=== PATIENT | female | born 1945 | race Caucasian/White ===

== ENCOUNTER 2017-06-22 08:28 | Outpatient (RCR) | payer MEDICARE, BC, SELFPAY ==
[2017-06-22 10:41] LABS: Absolute Lymphocyte Count 1.74 X10^3/ul (0.83-4.51); Absolute Neutrophil Count 4.6 X10^3/uL (2.0-7.7); Basophil# 0.03 X10^3/uL; Basophil% 0.4 % (0-1); Eosinophil# 0.25 X10^3/uL; Eosinophils% 3.4 % (0-5); Hematocrit 39.7 % (37-47); Hemoglobin 13.2 g/dl (12.0-15.0); Lymphocyte # 1.74 X10^3/ul (4.0); Lymphocyte % 23.5 % (19-41); Mean Corp Hgb Conc 33.2 g/gl (32-36); Mean Corpuscular Hgb 30.7 pg (27.0-32.0); Mean Corpuscular Volume 92.3 fL (81-99); Mean Platelet Vol. 12.1 fl (6.2-12.0); Monocyte% 10.8 % (0-10); Neutrophil # 4.58 X10^3/uL (2.7-7.7); Neutrophil % 61.6 % (47-70); Platelet Count 210 K/mm3 (150-450); RBC Distribution Width CV 12.8 % (11.6-14.6); RBC Distribution Width SD 42.9 fl (35.1-43.9); White Blood Count 7.4 K/mm3 (4.4-11.0)
[2017-06-22 10:54] LABS: POSITIVE COUNT NO; POSITIVE DIFFERENTIAL NO; POSITIVE MORPHOLOGY NO
[2017-06-22 11:06] LABS: Microalbumin,Random Urine 40.2 mg/L (NO RANGE EST.)
[2017-06-22 11:09] LABS: AST(SGOT) 31 U/L (15-37); Alanine Aminotransfer ALT/SGPT 32 U/L (13-56); Albumin, Serum 3.5 g/dL (3.2-5.0); Alkaline Phosphatase 121 U/L (45-117); Anion Gap 9 (5-15); BUN 14 mg/dL (7-18); BUN/Creat Ratio 19.7 RATIO (10-20); Calcium,Total 8.8 mg/dL (8.5-10.1); Chloride 109 mmol/L (98-107); Creatinine, Serum 0.71 mg/dL (0.55-1.02); EST Glomerular Filtration Rate 86 mL/min (>60); Est Glom Filt Rate - Afr Amer 104 mL/min (>60); Globulin 3.4 g/dL (2.2-4.2); Glucose 138 mg/dL (74-106); Potassium 3.7 mmol/L (3.5-5.1); Protein, Total 6.9 g/dL (6.4-8.2); Sodium Level 142 mmol/L (136-145)
== END 2017-06-22 09:00 | disposition home or self-care (01) ==
LOC: MTLAB 08:28
PROVIDERS: Family Provider Internal Medicine; PCP Internal Medicine; Visit Provider Nurse Practitioner
DX: M06.041 Rheumatoid arthritis without rheumatoid factor, right hand (principal); Z79.899 Other long term (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 therapy; L40.9 Psoriasis, unspecified; M72.0 Palmar fascial fibromatosis [Dupuytren]; K76.0 Fatty (change of) liver, not elsewhere classified; M47.892 Other spondylosis, cervical region; M47.897 Other spondylosis, lumbosacral region; G62.9 Polyneuropathy, unspecified; E10.9 Type 1 diabetes mellitus without 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s; I25.10 Atherosclerotic heart disease of native coronary artery without angina pectoris; E78.5 Hyperlipidemia, unspecified; I63.8 Other cerebral infarction
CPT/HCPCS: 80053; 82043; 82570; 83036; 85025

== ENCOUNTER → 2017-08-07 15:27 | Outpatient (CLI) | payer MEDICARE, BC, SELFPAY ==
--- NOTE | 2017-08-07 15:31 | MRI_ITS ---
STUDY: MRI LUMBAR SPINE WITHOUT CONTRAST REASON FOR EXAM: Female, 72 years old. Low back pain and left-sided leg pain. TECHNIQUE: Standardized fat and water weighted pulse sequences were obtained in the sagittal and axial planes. COMPARISON: None FINDINGS: T12-L1: There is narrowing of the disc. There is a small focal right central disc protrusion. There is annular disc bulge and osteophyte complex. There is mild degenerative arthropathy of facet joints. Neural foramina are narrowed without evidence for nerve impingement. There is no significant central acquired canal stenosis. There is straightening of the normal lumbar lordosis. There is no substantial scoliosis. Normal conus medullaris that terminates at the L1 level. L1-2: There is mild annular disk bulge and osteophyte complex. There is mild degenerative arthropathy of the facet joints. Bilateral neuroforamina are narrowed without MR evidence for nerve impingement. There is no significant central canal stenosis. L2-3: Normal endplates. Normal disc height, signal and morphology. Normal bilateral facet joints. Normal central canal and bilateral lateral recesses. Normal bilateral intervertebral neural foramina. L3-4: There is mild annular disk bulge and osteophyte complex. There is mild degenerative arthropathy of the facet joints. Bilateral neuroforamina are narrowed without MR evidence for nerve impingement. There is no significant central canal stenosis. L4-5: There is a broad left central disc protrusion. There is mild central acquired canal stenosis. There is moderate degenerative arthropathy of facet joints. Neural foramina are bilaterally narrowed, greater on the left with potential impingement of the left L4 nerve root. L5-S1: There is a broad left central foraminal disc protrusion. There is vacuum disc phenomenon at this level. Neural foramina are bilaterally narrowed with potential impingement of the L5 nerve roots at the neural foramina. There is moderate degenerative arthropathy of facet joints. There is no significant central acquired canal stenosis. Normal visualized sacral ala. Normal visualized paraspinous soft tissue structures. 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 Electronically Signed: Urmila Vines MD at 16:46 EDT , Service support ,
== END ==
PROVIDERS: Family Provider Internal Medicine; PCP Internal Medicine; Visit Provider Anesthesiology Pain Medicine
DX: M54.9 Dorsalgia, unspecified (principal); M79.606 Pain in leg, unspecified
CPT/HCPCS: 72148

== ENCOUNTER → 2017-10-06 07:55 | Outpatient (CLI) | payer MEDICARE, BC, SELFPAY ==
[2017-10-06 10:30] LABS: Absolute Lymphocyte Count 1.79 X10^3/ul (0.83-4.51); Absolute Neutrophil Count 3.5 X10^3/uL (2.0-7.7); Basophil# 0.03 X10^3/uL; Basophil% 0.5 % (0-1); Eosinophil# 0.18 X10^3/uL; Eosinophils% 2.8 % (0-5); Hematocrit 39.7 % (37-47); Hemoglobin 13.6 g/dl (12.0-15.0); Lymphocyte # 1.79 X10^3/ul (4.0); Mean Corp Hgb Conc 34.3 g/gl (32-36); Mean Corpuscular Hgb 31.6 pg (27.0-32.0); Mean Corpuscular Volume 92.3 fL (81-99); Mean Platelet Vol. 12.3 fl (6.2-12.0); Monocyte# 0.91 X10^3/uL; Monocyte% 14.2 % (0-10); Neutrophil # 3.47 X10^3/uL (2.7-7.7); Neutrophil % 54.3 % (47-70); Platelet Count 182 K/mm3 (150-450); RBC Distribution Width CV 13.4 % (11.6-14.6); RBC Distribution Width SD 44.2 fl (35.1-43.9); White Blood Count 6.4 K/mm3 (4.4-11.0)
[2017-10-06 10:34] LABS: POSITIVE COUNT NO; POSITIVE DIFFERENTIAL NO; POSITIVE MORPHOLOGY NO
[2017-10-06 10:50] LABS: ALB/GLOB Ratio 0.9 RATIO (0.9-2.4); AST(SGOT) 32 U/L (15-37); Alanine Aminotransfer ALT/SGPT 42 U/L (13-56); Albumin, Serum 3.4 g/dL (3.2-5.0); Alkaline Phosphatase 95 U/L (45-117); Anion Gap 6 (5-15); BUN 14 mg/dL (7-18); BUN/Creat Ratio 17.9 RATIO (10-20); Calcium,Total 8.7 mg/dL (8.5-10.1); Chloride 108 mmol/L (98-107); Creatinine, Serum 0.78 mg/dL (0.55-1.02); EST Glomerular Filtration Rate 77 mL/min (>60); Est Glom Filt Rate - Afr Amer 94 mL/min (>60); Globulin 3.7 g/dL (2.2-4.2); Glucose 147 mg/dL (74-106); Potassium 3.9 mmol/L (3.5-5.1); Protein, Total 7.1 g/dL (6.4-8.2); Sodium Level 143 mmol/L (136-145)
== END ==
PROVIDERS: Internal Medicine Rheumatology; Family Provider Internal Medicine; PCP Internal Medicine; Visit Provider Nurse Practitioner
DX: M06.041 Rheumatoid arthritis without rheumatoid factor, right hand (principal); L40.9 Psoriasis, unspecified; M72.0 Palmar fascial fibromatosis [Dupuytren]; K76.0 Fatty (change of) liver, not elsewhere classified; M47.892 Other spondylosis, cervical region; M47.897 Other spondylosis, lumbosacral region; G62.9 Polyneuropathy, unspecified; E10.9 Type 1 diabetes mellitus without 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s; I25.10 Atherosclerotic heart disease of native coronary artery without angina pectoris; E78.5 Hyperlipidemia, unspecified; I63.8 Other cerebral infarction; Z79.899 Other long term (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 therapy
CPT/HCPCS: 36415; 80053; 85025

== ENCOUNTER → 2017-12-23 10:43 | Outpatient (CLI) | payer MEDICARE, BC, SELFPAY ==
[2017-12-23 12:55] LABS: ALB/GLOB Ratio 0.9 RATIO (0.9-2.4); AST(SGOT) 30 U/L (15-37); Alanine Aminotransfer ALT/SGPT 40 U/L (13-56); Albumin, Serum 3.4 g/dL (3.2-5.0); Alkaline Phosphatase 104 U/L (45-117); Anion Gap 9 (5-15); BUN 12 mg/dL (7-18); BUN/Creat Ratio 16.2 RATIO (10-20); Calcium,Total 8.8 mg/dL (8.5-10.1); Chloride 109 mmol/L (98-107); Cholesterol 150 mg/dL (200); Creatinine, Serum 0.74 mg/dL (0.55-1.02); EST Glomerular Filtration Rate 82 mL/min (>60); Est Glom Filt Rate - Afr Amer 99 mL/min (>60); Globulin 3.6 g/dL (2.2-4.2); Glucose 93 mg/dL (74-106); High Density Lipoprotein 68 mg/dL; Potassium 4.2 mmol/L (3.5-5.1); Sodium Level 144 mmol/L (136-145); Triglycerides 96 mg/dL; Very Low Density Lipoprotein 19 mg/dL (5-40)
[2017-12-23 13:05] LABS: Hemoglobin A1c 7.9 % (4.2-6.3)
[2017-12-23 13:12] LABS: Microalbumin,Random Urine 21.8 mg/L (NO RANGE EST.)
[2017-12-26 09:03] LABS: Vitamin D 1,25-Dihydroxy 60.8 pg/mL (19.9-79.3)
== END ==
PROVIDERS: Family Provider Internal Medicine; PCP Internal Medicine; Visit Provider Nurse Practitioner
DX: E10.9 Type 1 diabetes mellitus without 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s (principal)
CPT/HCPCS: 36415; 80053; 80061; 82043; 82570; 82652; 83036

== ENCOUNTER → 2018-06-18 10:04 | Outpatient (CLI) | payer MEDICARE, BC, SELFPAY ==
[2018-05-24 13:14] VITALS: BMI 35.2
[2018-06-18 12:43] LABS: ALB/GLOB Ratio 0.9 RATIO (0.9-2.4); AST(SGOT) 29 U/L (15-37); Alanine Aminotransfer ALT/SGPT 62 U/L (13-56); Albumin, Serum 3.1 g/dL (3.2-5.0); Alkaline Phosphatase 131 U/L (45-117); Anion Gap 8 (5-15); BUN 15 mg/dL (7-18); BUN/Creat Ratio 19.4 RATIO (10-20); Calcium,Total 8.8 mg/dL (8.5-10.1); Chloride 107 mmol/L (98-107); Creatinine, Serum 0.77 mg/dL (0.55-1.02); EST Glomerular Filtration Rate 78 mL/min (>60); Est Glom Filt Rate - Afr Amer 95 mL/min (>60); Globulin 3.4 g/dL (2.2-4.2); Glucose 233 mg/dL (74-106); Potassium 3.8 mmol/L (3.5-5.1); Protein, Total 6.5 g/dL (6.4-8.2); Sodium Level 143 mmol/L (136-145)
[2018-06-18 12:58] LABS: Hemoglobin A1c 8.7 % (4.2-6.3)
== END ==
PROVIDERS: Family Provider Internal Medicine; PCP Internal Medicine; Referring Provider Nurse Practitioner; Visit Provider Nurse Practitioner
DX: E10.65 Type 1 diabetes mellitus with hyperglycemia (principal)
CPT/HCPCS: 36415; 80053; 82043; 82570; 83036

== ENCOUNTER → 2018-07-19 13:09 | Outpatient (CLI) | payer MEDICARE, BC, SELFPAY ==
[2018-06-21 14:42] VITALS: BMI 34.7
--- NOTE | 2018-07-19 13:14 | RAD_ITS ---
STUDY: X-RAY - PELVIS REASON FOR EXAM: Female, 72 years old. Fall 6 days ago. Pain in tailbone. TECHNIQUE: One view of the pelvis was obtained. COMPARISON: CT of the abdomen and pelvis, September 17, 2015. FINDINGS: There is a non-specific bowel gas pattern. Normal visualized soft tissue structures. There are multiple calcified phleboliths. Normal bilateral iliac wings, sacroiliac joints and visualized sacrum. Normal visualized bilateral superior and inferior pubic rami. Normal pubic symphysis. Normal ischial tuberosities. Normal visualized right femoral head. Normal right acetabulum. Normal right hip joint. Normal visualized left femoral head. Normal left acetabulum. Normal left hip joint. RAD/Pelvis 1 or 2 Views IMPRESSION: Normal x-ray examination of the pelvis. Electronically Signed: Jeferson Salas DO at 22:25 EDT Tel [phone], Service support ,
--- NOTE | 2018-07-19 13:14 | RAD_ITS ---
STUDY: X-RAY - SACRUM/COCCYX REASON FOR EXAM: Female, 72 years old. Sacral pain following a recent fall. TECHNIQUE: 3 view(s) of the sacrum and coccyx were obtained. COMPARISON: None. FINDINGS: Disc space narrowing involving the lower lumbar spine. Normal bilateral sacroiliac joints. Normal visualized sacral ala and fused sacral bodies. There is an anterior angulation of the coccygeal segments. Normal coccygeal segments. Vascular calcifications. There is a 1.5 cm x 1 cm rounded calcification in the midpelvis. This may represent a bladder calculus. Clinical correlation is recommended. RAD/Sacrum-Coccyx min 2 Views IMPRESSION: No acute abnormalities seen. Possible bladder calculus. Electronically Signed: Yves Childers, at 9:17 EDT , Service support ,
== END ==
PROVIDERS: Family Provider Internal Medicine; PCP Internal Medicine; Referring Provider Anesthesiology Pain Medicine; Visit Provider Anesthesiology Pain Medicine
DX: M53.3 Sacrococcygeal disorders, not elsewhere classified (principal); Z91.81 History of falling
CPT/HCPCS: 72170; 72220

== ENCOUNTER → 2018-09-08 13:34 | Outpatient (CLI) | payer MEDICARE, BC, SELFPAY ==
[2018-06-21 14:42] VITALS: BMI 34.7
--- NOTE | 2018-09-08 13:44 | RAD_ITS ---
STUDY: X-RAY - CERVICAL SPINE REASON FOR EXAM: Female, 73 years old. Neck pain after recent trauma 4 days ago. TECHNIQUE: AP and lateral view(s) of the cervical spine were obtained. COMPARISON: None FINDINGS: There are degenerative changes of the anterior atlantoaxial articulation. Normal odontoid process. Normal cervical lordosis. Only 6 cervical vertebral bodies are visualized in the lateral projection. The visualized cervical vertebral bodies of normal height and alignment. Normal disc space heights. The posterior elements have normal alignment. There are atherosclerotic vascular calcifications of the carotid arteries. RAD/Cerv Spine 2 or 3 Views IMPRESSION: No radiographic evidence of acute compression or displaced fracture. Electronically Signed: Urmila Vines MD at 9:28 EDT , Service support ,
== END ==
PROVIDERS: Family Provider Internal Medicine; PCP Internal Medicine; Referring Provider Anesthesiology Pain Medicine; Visit Provider Anesthesiology Pain Medicine
DX: M54.2 Cervicalgia (principal)
CPT/HCPCS: 72040

== ENCOUNTER 2019-06-21 22:23 | Inpatient (IN) | payer MEDICARE, BC, SELFPAY ==
[2018-10-14 10:00] VITALS: BMI 35.2
[2019-06-21 22:25] VITALS: BP 160/62; PULSE 67; RESP 18; TEMP 36.1; O2SAT 93; BMI 33.3
--- NOTE | 2019-06-21 22:45 | CT_ITS ---
STUDY: CT ABDOMEN AND PELVIS WITHOUT CONTRAST REASON FOR EXAM: Female, 73 years old. Right-sided abdominal pain after fall. RADIATION DOSAGE (If Supplied By Facility): CTDIvol = ( 17.66 ) mGy, DLP = ( 1142.37 ) mGycm TECHNIQUE: Transaxial images were obtained from the dome of the diaphragm to the symphysis pubis without oral contrast, and without intravenous contrast. Sagittal and coronal images were reconstructed. Individualized dose optimization techniques were used for this CT. COMPARISON: September 17, 2015. FINDINGS: The visualized lung bases are unremarkable. The visualized portions of the heart are within normal limits. Normal liver. Normal gallbladder and extrahepatic biliary system. Normal spleen. Normal pancreas. Normal bilateral adrenal glands. No hydronephrosis. 2 to 3 mm bilateral nonobstructive renal calculi. Normal visualized stomach. Normal small intestine. Normal colon. There is non-visualization of the appendix. There is atherosclerotic calcification of the abdominal aorta and common iliac arteries, without a demonstrated aneurysm. Normal inferior vena cava. Normal retroperitoneum. No intra-abdominal free air. Normal urinary bladder. The uterus is not enlarged. No adnexal masses seen. Incidental calcified lymph node posterior pelvis unchanged. Normal abdominal wall. Degenerative changes of the lower thoracic and lower lumbar spine. CT/Abdomen/Pelvis W IV Cont ONLY IMPRESSION: No acute findings in the abdomen or pelvis. Small bilateral nonobstructing renal calculi. No evidence of bowel obstruction. No fracture identified. Electronically Signed: Thomas Colorado MD at 0:38 EST , Service support ,
--- NOTE | 2019-06-21 22:45 | EKG12_ITS ---
Test Reason : GEN ILL Blood Pressure : / mmHG Vent. Rate : 067 BPM Atrial Rate : 067 BPM P-R Int : 182 ms QRS Dur : 078 ms QT Int : 368 ms P-R-T Axes : 051 -24 -32 degrees QTc Int : 388 ms Normal sinus rhythm Minimal voltage criteria for LVH, may be normal variant Cannot rule out Anterior infarct , age undetermined Abnormal ECG Confirmed by KHARI MARTINEZ ([id number]), editor farm journal CARRINGTON GUERRA ([id number]) on 06/22/2019 2:22:13 PM Referred By: Confirmed By:KHARI MARTINEZ
--- NOTE | 2019-06-21 22:50 | RAD_ITS ---
STUDY: X-RAY CHEST REASON FOR EXAM: Female, 73 years old. PT DX WITH FLU LAST WEEK, REPORTS GENERALIZED WEAKNESS, AND FALL LAST THURSDAY. TECHNIQUE: Single AP portable view of the chest. COMPARISON: June 27, 2015. FINDINGS: The lungs are clear and expanded. There is no demonstrated pleural abnormality. Normal size heart. Normal mediastinum and cinthia. Normal visualized pulmonary arteries. There is atherosclerotic tortuosity of the aortic arch and descending thoracic aorta. There are degenerative changes of the visualized thoracic spine. Normal visualized ribs, clavicles, and shoulders. There is no demonstrated abnormality of the visualized soft tissue structures of the upper abdomen. RAD/Chest 1 View (Portable) IMPRESSION: Degenerative changes, as described above. No demonstrated acute cardiopulmonary process. Electronically Signed: Matty Krause MD at 23:31 EST , Service support ,
--- NOTE | 2019-06-21 23:03 | ED.DCSUM_ITS ---
- ER Visit Summary Date of Service: 06/21/19 Chief Complaint: Flulike illness, generalized weakness History of Present Illness: The patient is a 73 F presenting with flulike-like illness. Patient states that she has had flulike symptoms for the past 3 weeks. She complains of intermittent vomiting and diarrhea. She has had subjective fever. She has had myalgias. She has had generalized weakness and fatigue. She complains of dizziness, denies syncope. She fell on . She did not hit her head or lose consciousness. She fell onto her right side. She states her insulin pump jabbed her in the right side. She continues to have pain in that area. She denies chest pain or shortness of breath. Denies other complaints. Physical Examination: Vitals are stable. Patient is afebrile. Alert no acute distress. HEENT exam is unremarkable. Neck is supple. Lungs are clear and equal bilaterally. Heart is regular rate and rhythm. Abdomen is soft nontender nondistended. Extremities are unremarkable. Skin is warm and dry. No focal neurologic deficit. Remainder of exam is unremarkable. Emergency Department Course and Treatment: EKG is sinus rate of 67 with inferior T wave inversion, T wave flattening. CBC, chemistries unremarkable other than potassium 3.2, glucose 277. Alk phos 140, lipase 46. Urinalysis shows 5-10 white blood cells, negative nitrates, urine culture was sent. Troponin is 0.211. Ketones negative. Influenza negative. Chest x-ray shows no acute process. Patient was given aspirin and Zofran in the ED. CT abdomen pelvis shows no acute findings in the abdomen or pelvis. Small bilateral nonobstructing renal calculi. No evidence of bowel obstruction. No fracture identified. On reevaluation, patient is resting comfortably. Discussed with the hospitalist for admission. Disposition: Admission Impression: Generalized weakness, elevated troponin This note was generated with [employer] dictation software. It may contain incorrect words, spelling, and punctuation that were not noted in review of the chart prior to signing ED Disposition - Plan for ED Patient: Referrals: Alcira Calderon MD [Primary Care Provider] -
[2019-06-21] MEDS: 0.9% Normal Saline 1,000 ML 1000 ML IV (23:11)
[2019-06-21 23:24] LABS: Absolute Lymphocyte Count 1.56 X10^3/uL (0.83-4.51); Absolute Neutrophil Count 5.8 X10^3/uL (2.0-7.7); Basophil# 0.05 X10^3/uL; Basophil% 0.6 % (0-1); Eosinophil# 0.25 X10^3/uL; Eosinophils% 2.9 % (0-5); Hematocrit 41.5 % (37-47); Lymphocyte # 1.56 X10^3/ul (4.0); Mean Corp Hgb Conc 33.7 g/dL (32-36); Mean Corpuscular Hgb 30.7 pg (27.0-32.0); Mean Platelet Vol. 11.8 fl (6.2-12.0); Monocyte# 0.97 X10^3/uL; Monocyte% 11.2 % (0-10); NRBC Flagged by Analyzer 0 % (0-5); Neutrophil # 5.82 X10^3/uL (2.7-7.7); Platelet Count 262 K/mm3 (150-450); RBC Distribution Width CV 12.8 % (11.6-14.6); RBC Distribution Width SD 42.5 fl (35.1-43.9); Red Blood Count 4.56 M/mm3 (4.2-5.4); White Blood Count 8.7 K/mm3 (4.4-11.0)
[2019-06-21 23:37] LABS: ALB/GLOB Ratio 0.6 RATIO (0.9-2.4); AST(SGOT) 35 U/L (15-37); Alanine Aminotransfer ALT/SGPT 29 U/L (13-56); Alkaline Phosphatase 140 U/L (45-117); Anion Gap 7 (5-15); BUN 15 mg/dL (7-18); BUN/Creat Ratio 16.9 RATIO (10-20); Calcium,Total 9.5 mg/dL (8.5-10.1); Chloride 105 mmol/L (98-107); Creatinine, Serum 0.89 mg/dL (0.55-1.02); EST Glomerular Filtration Rate 66 mL/min (>60); Est Glom Filt Rate - Afr Amer 80 mL/min (>60); Estimated Creatinine Clearance 47.26 ml/min; Globulin 5.1 g/dL (2.2-4.2); Glucose 277 mg/dL (74-106); Lipase 46 U/L (73-393); Potassium 3.2 mmol/L (3.5-5.1); Protein, Total 8.1 g/dL (6.4-8.2); Sodium Level 140 mmol/L (136-145)
[2019-06-22] VITALS (14 sets, daily range): BP systolic 109–164; BP diastolic 55–85; PULSE 56–71; RESP 16–20; TEMP 36.6–36.8; O2SAT 93–98; BMI 33.0
[2019-06-22] MEDS: Aspirin 325 MG Tablet PO ×2 (00:16→09:25)
[2019-06-22] MEDS: Ondansetron ODT 4 MG Tablet PO (00:16)
[2019-06-22 00:18] LABS: Bacteria 0 SEEN /hpf (None Seen); Mucous, Urine 0 SEEN /hpf (<or=2+)
[2019-06-22 00:19] LABS: Color, Urine Yellow (Yellow); Glucose, Dipstick 250 mg/dl (Normal); Ketone-Dipstick Negative (Negative); Leukocyte Esterase-Dipstick 100 /ul (Negative); Nitrite-Dipstick Negative (Negative); Occult Blood-Urine Negative /ul (Negative); Protein-Dipstick Negative (Negative); Urine Bilirubin Dipstick Negative (Negative); Urine Clarity Clear (Clear); Urine Urobilinogen Normal (Normal)
[2019-06-22 00:47] LABS: Red Blood Cells-Urine 0-5 SEEN /hpf (0-5); Squamous Epithelial Cells - UA 0-5 SEEN /hpf (5-10); Transitional Epithelial - Ur 0-5 SEEN /hpf (0-5); White Blood Cells 5-10 SEEN /hpf (0-5)
--- NOTE | 2019-06-22 01:07 | PCM.HP.STD ---
Problem List (1) Gastroenteritis Status: Acute (2) Abnormal EKG Status: Acute (3) Elevated troponin Status: Acute History of Present Illness Date of Admission: 06/22/19 Chief Complaint: NAUSEA and vomiting The patient is a 73 year old F with a significant history of CAD status post stent; rheumatoid arthritis; type 1 diabetes; chronic pain who presents emergency department with 3 weeks of nausea and vomiting. She reported that her nausea and vomiting is actually improving. She also have diarrhea. She took Imodium. Further, she reported that she fell about a week ago and landed on her insulin pump. She then developed pain at right upper abdomen and to her back. She reported that the pain is also improving. Further she reports dizziness that she described as a combination of lightheadedness; unsteadiness on her feet and a Vertigo. Patient does not give a consistent history. From her history the dizziness may be chronic. At the emergency department patient was found to have a T wave inversion in inferior leads which was changed from prior EKGs. Her potassium was low. And her troponin was elevated. She reported that because of her nausea and vomiting she is unable to manage her blood glucose. Of note patient has an insulin pump. Emergency department doctor discussed the case with cardiology and cardiology will follow if consulted. Past Medical History Past Medical History (Chronic Problems): Chronic Problems (Last Reviewed 06/22/19 @ 03:[address] Lizandro Richards MD) Essential (primary) hypertension (Chronic) Atherosclerosis of coronary artery of [place] heart without angina pectoris (Chronic) PTCA and JUANY of proximal RCA 06/26/2000 @ [facility] per Dr. Ada Garcia History of stroke (Chronic) Has had multiple TIA's , also major CVA circa October 2012 Hyperlipidemia (Chronic) Medical History: Medical History (Last Reviewed 06/22/19 @ 05:[address] Lizandro Richards MD) Essential (primary) hypertension (Chronic) I10 Atherosclerosis of coronary artery of [place] heart without angina pectoris (Chronic) I25.10 PTCA and JUANY of proximal RCA 06/26/2000 @ [facility] per Dr. Ada Garcia History of stroke (Chronic) Z86.73 Has had multiple TIA's , also major CVA circa October 2012 Hyperlipidemia (Chronic) E78.5 Arthritis M19.90 COPD (chronic obstructive pulmonary disease) J44.9 Chronic neck and back pain M54.2, M54.9 Chronic rheumatic arthritis M06.9 Diabetic neuropathy E11.40 Difficulty balancing R29.818 Fatty liver K76.0 Hay fever J30.1 Incontinence R32 Knee pain M25.569 Obstructive sleep apnea G47.33 Polymyalgia rheumatica M35.3 Shoulder pain M25.519 Stroke I63.9 Type 1 diabetes mellitus E10.9 Allergies amoxicillin [From Augmentin] Allergy (Severe, Verified 10/14/18 10:04) Unknown clavulanic acid [From Augmentin] Allergy (Severe, Verified 06/21/19 22:24) Unknown amitriptyline Allergy (Verified 06/21/19 22:24) Other doesnt remember cefadroxil [Cefadroxil] Allergy (Verified 06/21/19 22:24) Hives ephedrine Allergy (Verified 06/21/19 22:24) HEART RACES erythromycin estolate [From Ilosone] Allergy (Verified 06/21/19 22:24) Angioedema, HEART RACING iodine Allergy (Verified 06/21/19 22:24) Hives, ITCHING levofloxacin Allergy (Verified 06/21/19 22:24) Unknown LIGAMENT DAMAGE nortriptyline [Nortriptyline] Allergy (Verified 06/21/19 22:24) Unknown oxycodone [Oxycodone] Allergy (Verified 06/21/19 22:24) CONFUSION oxycodone HCl [From Percocet] Allergy (Verified 06/21/19 22:24) CONFUSION Sulfa (Sulfonamide Antibiotics) Allergy (Verified 06/21/19 22:24) Rash pregabalin [From Lyrica] Adverse Reaction (Severe, Verified 06/21/19 22:24) Vomiting acetaminophen [From Percocet] Adverse Reaction (Verified 06/21/19 22:24) Other CONFUSION aspirin [From Aggrenox] Adverse Reaction (Verified 06/21/19 22:24) Vomiting cephalexin Adverse Reaction (Verified 06/21/19 22:24) Nausea/Vom/Diarrhea doxycycline Adverse Reaction (Verified 06/21/19 22:24) Nausea/Vom/Diarrhea duloxetine HCl [From Cymbalta] Adverse Reaction (Verified 06/21/19 22:24) HEADACHE, STOMACH ACHE Home Medications: Ambulatory Orders Medication Instructions Recorded Aspirin 325 mg PO DAILY@0800 06/27/15 Atorvastatin Calcium [Lipitor] 40 mg PO QHS 06/27/15 Clopidogrel Bisulfate [Plavix] 75 mg PO DAILY 06/27/15 Hydroxychloroquine [Plaquenil] 200 mg PO BIDCM 06/27/15 Lansoprazole [Prevacid] 30 mg PO BID 06/27/15 albuterol sulfate 2.5 mg INHALATION Q6H PRN ml 03/30/17 diclofenac sodium 1 % topical gel 2 g TOPICAL BID PRN g 03/30/17 ergocalciferol (vitamin D2) 1,250 50,000 unit PO QWEEK 03/30/17 mcg (50,000 unit) capsule gabapentin 300 mg capsule 300 mg PO TID cap 03/30/17 insulin lispro 100 unit/mL See Rx Instructions CONTINUOUS 03/30/17 subcutaneous solution SUBCUTANEOUS INFUSION QDAY ml multivitamin 1 tab PO QAM 03/30/17 nitroglycerin 0.4 mg sublingual 0.4 mg SUBLINGUAL Q5M PRN 03/30/17 tablet polyethylene glycol 3350 17 17 g PO QDAY PRN 03/30/17 gram/dose oral powder pramipexole 0.25 mg tablet 0.5 mg PO QHS tab 07/24/17 insulin lispro 100 unit/mL 120 unit SC QDAY #1100 ml 10/26/17 subcutaneous solution miconazole nitrate 2 % topical 1 applic TOPICAL DAILY 03/30/18 powder tramadol 50 mg tablet 50 mg PO Q6H PRN 06/21/18 amlodipine 5 mg tablet 5 mg PO DAILY #90 tab 09/22/18 acetaminophen 325 mg tablet 650 mg PO Q6H tab 10/14/18 clonazepam 1 mg tablet 1 mg PO QHS PRN tab 10/14/18 lactobacillus combination no.9 4 4,000 mmu cells PO DAILY 10/14/18 billion cell capsule metoprolol succinate 25 mg capsule 25 mg PO DAILY 10/14/18 sprinkle, ext. release 24 hr simethicone 180 mg capsule 360 mg PO DAILY PRN cap 10/14/18 losartan 100 mg tablet 100 mg PO QDAY #90 tab 05/19/19 Surgical History: Surgical History (Last Reviewed 06/22/19 @ 03:[address] Lizandro Richards MD) History of coronary artery stent placement (Resolved) Z95.5 PTCA and JUANY of proximal RCA 06/26/2000 @ [facility] per Dr. Ada Garcia H/O breast biopsy Z98.890 H/O lumpectomy Z98.890 H/O shoulder surgery Z98.890 H/O: Z98.891 History of left heart catheterization Onset Date: 07/01/05 Z98.890 axillary cyst removal bilat hand surgery nasal growth removal Surgical History: cataract - With intraocular lens implants, tonsillectomy, - - Rotator cuff on the left, left retinal detachment, laser surgeries on her eye for diabetic retinopathy, 3 sections, excision of benign breast cysts. 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 Lizandro Richards MD) Father No problems noted. Mother Breast cancer Thyroid disorder Heart disease Brother Heart disease, Onset Age: 52 History Items: No pertinent history Maternal Family History: Family History (Last Reviewed 06/22/19 @ 05:[address] Lizandro Richards MD) Father No problems noted. Mother Breast cancer Thyroid disorder Heart disease Brother Heart disease, Onset Age: 52 History Items: No pertinent history Review of Systems Constitutional: Reports: Weakness, Fatigue. Denies: Chills, Fever, Weight Change HEENT: Denies: Head Aches, Sinus Congestion, Sinus Drainage Cardiovascular: Reports: Light Headedness. Denies: Chest Pain, Palpitations Respiratory: Denies: Cough, Shortness of breath at rest, Sputum production Gastrointestinal: Reports: Nausea, Vomiting. Denies: Abdominal Pain Genitourinary: Denies: Dysuria Musculoskeletal: Denies: Joint Pain, Joint Tenderness Skin: Denies: Rash, Wounds Neurological: Denies: Numbness, Tingling, Focal weakness Psychiatric: Denies: Anxiety, Depression, Homicidal Ideations, Suicidal Ideations Hematologic/ Lymphatic: Denies: Easy Bruising, Easy Bleeding VTE Information - Inpt Only VTE Present on Admission: No VTE Mechan Device Prophylaxis: None VTE Pharm Prophylaxis ordered?: Yes Patient Problems: Active and Suspected Problems (Last Reviewed 06/22/19 @ 03:[address] Lizandro Richards MD) Gastroenteritis (Acute) Abnormal EKG (Acute) Elevated troponin (Acute) - Physical Exam Vitals/I&O's: Vital Signs Temp Pulse Resp BP Pulse Ox 97.0 F L 69 20 H 122/75 H 93 06/21/19 22:25 06/22/19 00:53 06/22/19 00:53 06/22/19 00:53 06/22/19 00:53 Oxygen Delivery Method Room Air Weight: 85.3 kg Body Mass Index (BMI) 33.3 Finger Stick Blood Glucose 161 Intake and Output for Last 24 Hours 06/20/19 06/21/19 06/22/19 23:59 23:59 23:59 Intake Total 1000 / 1000 Balance 1000 / 1000 General: Alert, Oriented x3, Cooperative HEENT: Atraumatic, PERRLA, EOMI, Normocephalic Neck: Supple, No JVD, Negative Carotid Bruits Lungs: Clear to auscultation, Normal air movement Cardiovascular: Regular rate, Normal S1, Normal S2 Abdomen: Bowel Sounds Present, Soft, Hypoactive Bowel Sounds, Tender - Right upper flank area Extremities: No edema, Capillary Refill Less than 3 Seconds Skin: No rashes, No breakdown Musculoskeletal: Tenderness - Right upper back Neurological: Cranial nerves II-XII grossly intact Psych/Mental Status: Normal Affect, Appropriate Microbiology Past 72 Hours 06/21/19 23:00 Mucosa - Nasopharyngeal Influenza Types A,B Direct FA (DANIELLA) - Final Laboratory Results 06/21/19 23:09: WBC 8.7, RBC 4.56, Hgb 14.0, Hct 41.5, MCV 91.0, MCH 30.7, MCHC 33.7, RDW Std Deviation 42.5, RDW Coeff of Marisela 12.8, Plt Count 262, MPV 11.8, Immature Gran % (Auto) 0.300, Neut % (Auto) 67.0, Lymph % (Auto) 18.0 L, [place] % (Auto) 11.2 H, Eos % (Auto) 2.9, Baso % (Auto) 0.6, Absolute Neuts (auto) 5.8, Absolute Lymphs (auto) 1.56, Nucleated RBC % 0 06/21/19 23:09: Sodium 140, Potassium 3.2 L, Chloride 105, Carbon Dioxide 28.0, Anion Gap 7, BUN 15, Creatinine 0.89, Estim Creat Clear Calc 47.26, Est GFR (MDRD) Af Amer 80, Est GFR (MDRD) Non-Af 66, BUN/Creatinine Ratio 16.9, Glucose 277 H, Calcium 9.5, Total Bilirubin 0.70, AST 35, ALT 29, Alkaline Phosphatase 140 H, Troponin I 0.211 H, Total Protein 8.1, Albumin 3.0 L, Globulin 5.1 H, Albumin/Globulin Ratio 0.6 L, Lipase 46 L 06/21/19 23:09: Acetone Level NEGATIVE 06/22/19 00:07: Urine Color Yellow, Urine Clarity Clear, Urine pH 7.0, Ur Specific [place] 1.010, Urine Protein Negative, Urine Glucose (UA) 250 H, Urine Ketones Negative, Urine Occult Blood Negative, Urine Nitrite Negative, Urine Bilirubin Negative, Urine Urobilinogen Normal, Ur Leukocyte Esterase 100 H, Urine RBC 0-5 SEEN, Urine WBC 5-10 SEEN, Ur Squamous Epith Cells 0-5 SEEN, Ur Transition Epith Cell 0-5 SEEN, Urine Bacteria 0 SEEN, Urine Mucus 0 SEEN Assessment/Plan All Active Problems (Last Reviewed 06/22/19 @ 03:[address] Lizandro Richards MD) Gastroenteritis (Acute) Abnormal EKG (Acute) Elevated troponin (Acute) History of coronary artery stent placement (Resolved) The patient is a 73 year old F with a significant history of CAD status post stent; rheumatoid arthritis; type 1 diabetes; and chronic pain who presents at the emergency department with 3 weeks of nausea and vomiting; fall; dizziness and found to have elevated troponin and abnormal EKG. Elevated troponin and abnormal EKG. Continue home aspirin and Plavix. Trend troponin. Consult cardiology. Continue home metoprolol and losartan. Acute gastroenteritis We will check enteric pathogen panel. Check magnesium. Replace potassium. Ondansetron IV as needed Type 1 diabetes Accu-Chek QA CHS. Continue insulin pump. Elevated alkaline phosphatase Chronic. Rheumatoid arthritis Plaquenil continued. Acute on chronic pain Tramadol continued. Hypertension Blood pressure is not within goal Amlodipine continued Labetalol PRN Trend blood pressure and adjust blood pressure medications. DVT prophylaxis Subcutaneous heparin. Code Visit Inpatient E&M: 17675 Init Hosp L3
--- NOTE | 2019-06-22 02:27 | ED.RN ---
PER DR. SILVER PT ON RA 88%, DR. SILVER PLACED PT ON 2L NC. WILL CONTINUE TO MONITOR.
--- NOTE | 2019-06-22 03:11 | EKG12_ITS ---
Test Reason : AM EKG Blood Pressure : / mmHG Vent. Rate : 060 BPM Atrial Rate : 060 BPM P-R Int : 184 ms QRS Dur : 080 ms QT Int : 364 ms P-R-T Axes : 051 -22 -50 degrees QTc Int : 364 ms Normal sinus rhythm Normal ECG When compared with ECG of 21-JUN-2019 22:59, MANUAL COMPARISON REQUIRED, DATA IS UNCONFIRMED Confirmed by JOVI DYKES, KANDACE ([id number]), editor in chief newspaper ANDREZ PROCTOR ([id number]) on 06/27/2019 4:05:26 PM Referred By: MEGAN Confirmed By:KANDACE ESPANA MD
[2019-06-22 06:41] LABS: Absolute Lymphocyte Count 1.37 X10^3/uL (0.83-4.51); Absolute Neutrophil Count 4.3 X10^3/uL (2.0-7.7); Basophil# 0.03 X10^3/uL; Basophil% 0.4 % (0-1); Eosinophil# 0.42 X10^3/uL; Hematocrit 39.1 % (37-47); Hemoglobin 13.1 g/dL (12.0-15.0); Lymphocyte # 1.37 X10^3/ul (4.0); Lymphocyte % 19.5 % (19-41); Mean Corp Hgb Conc 33.5 g/dL (32-36); Mean Corpuscular Hgb 30.5 pg (27.0-32.0); Mean Corpuscular Volume 90.9 fL (81-99); Mean Platelet Vol. 11.5 fl (6.2-12.0); Monocyte# 0.87 X10^3/uL; Monocyte% 12.4 % (0-10); NRBC Flagged by Analyzer 0 % (0-5); Neutrophil # 4.31 X10^3/uL (2.7-7.7); Neutrophil % 61.4 % (47-70); Platelet Count 237 K/mm3 (150-450); RBC Distribution Width CV 12.8 % (11.6-14.6); RBC Distribution Width SD 41.9 fl (35.1-43.9)
[2019-06-22] MEDS: Acetaminophen 325 MG Tablet 650 MG PO ×2 (07:06→17:57)
[2019-06-22] MEDS: Gabapentin 300 MG Capsule PO ×3 (07:06→19:57)
[2019-06-22 07:15] LABS: Bedside Glucose 133 mg/dL (70-110)
[2019-06-22 07:19] LABS: BUN 9 mg/dL (7-18); Creatinine, Serum 0.68 mg/dL (0.55-1.02); Estimated Creatinine Clearance 42.07 ml/min; Glucose 148 mg/dL (74-106)
[2019-06-22 07:20] LABS: Anion Gap 6 (5-15); BUN/Creat Ratio 13.2 RATIO (10-20); Calcium,Total 8.9 mg/dL (8.5-10.1); Chloride 107 mmol/L (98-107); EST Glomerular Filtration Rate 90 mL/min (>60); Est Glom Filt Rate - Afr Amer 109 mL/min (>60); Magnesium 1.6 mg/dL (1.6-2.6); Potassium 3.1 mmol/L (3.5-5.1); Sodium Level 142 mmol/L (136-145)
--- NOTE | 2019-06-22 07:34 | CON.PCM_ITS ---
Problem List (1) Elevated troponin Status: Acute (2) Atherosclerosis of coronary artery of [place] heart without angina pectoris Status: Chronic Comment: PTCA and JUANY of proximal RCA 06/26/2000 @ [facility] per Dr. Ada Garcia (3) History of coronary artery stent placement Status: Resolved Comment: PTCA and JUANY of proximal RCA 06/26/2000 @ [facility] per Dr. Ada Garcia (4) Hyperlipidemia Status: Chronic Qualifiers: Hyperlipidemia type: pure hypercholesterolemia Qualified Code(s): E78.00 - Pure hypercholesterolemia, unspecified; E78.0 - Pure hypercholesterolemia (5) Essential (primary) hypertension Status: Chronic (6) Gastroenteritis Status: Acute Reason for Consult Date of Consultation: 06/22/19 History of Present Illness: The patient is a 73 year old white female with a past cardiovascular history of CAD status post remote PCI, hyperlipidemia, and hypertension who is referred for evaluation of elevated troponin I levels. The patient states that recently, over the last 2+ weeks, she has noted a fever of approximately 105, nausea, emesis, and diarrhea. She did not seek medical care. She states her son-in-law, a [employer] station cleaning porter, prescribed her an antiemetic. However over time she felt more tired and fatigued and weak. Thus she presented to the emergency department for further evaluation and care. In the emergency department she did not complain of any acute chest discomfort or difficulty breathing. There is no report of orthopnea or PND or worsening peripheral pitting edema. There has been no near syncope or syncope. She did note an accidental fall and with her accidental fall pressing her insulin pump against her right side. Thus she underwent radiologic studies by the emergency department staff for any obvious injuries. Based upon the information from the emergency [facility] staff there were no acute injuries reported. She underwent additional evaluation which included troponin I levels which were considered indeterminate. Her ECG demonstrated sinus rhythm with a nonspecific ST and T wave abnormality. She was subsequently placed in the PCU for further evaluation and care of a possible viral syndrome as well as her indeterminate troponin I levels. Cardiology was consulted to evaluate the patient. Since the patient has been in the ICU her troponin I levels have been reassessed. They have remained indeterminate. [] Past Medical History Allergies/Adverse Reactions: Allergies amoxicillin [From Augmentin] Allergy (Severe, Verified 10/14/18 10:04) Unknown clavulanic acid [From Augmentin] Allergy (Severe, Verified 06/21/19 22:24) Unknown amitriptyline Allergy (Verified 06/21/19 22:24) Other doesnt remember cefadroxil [Cefadroxil] Allergy (Verified 06/21/19 22:24) Hives ephedrine Allergy (Verified 06/21/19 22:24) HEART RACES erythromycin estolate [From Ilosone] Allergy (Verified 06/21/19 22:24) Angioedema, HEART RACING iodine Allergy (Verified 06/21/19 22:24) Hives, ITCHING levofloxacin Allergy (Verified 06/21/19 22:24) Unknown LIGAMENT DAMAGE nortriptyline [Nortriptyline] Allergy (Verified 06/21/19 22:24) Unknown oxycodone [Oxycodone] Allergy (Verified 06/21/19 22:24) CONFUSION oxycodone HCl [From Percocet] Allergy (Verified 06/21/19 22:24) CONFUSION Sulfa (Sulfonamide Antibiotics) Allergy (Verified 06/21/19 22:24) Rash pregabalin [From Lyrica] Adverse Reaction (Severe, Verified 06/21/19 22:24) Vomiting acetaminophen [From Percocet] Adverse Reaction (Verified 06/21/19 22:24) Other CONFUSION aspirin [From Aggrenox] Adverse Reaction (Verified 06/21/19 22:24) Vomiting cephalexin Adverse Reaction (Verified 06/21/19 22:24) Nausea/Vom/Diarrhea doxycycline Adverse Reaction (Verified 06/21/19 22:24) Nausea/Vom/Diarrhea duloxetine HCl [From Cymbalta] Adverse Reaction (Verified 06/21/19 22:24) HEADACHE, STOMACH ACHE Home Medications: Ambulatory Orders Medication Instructions Recorded Aspirin 325 mg PO DAILY@0800 06/27/15 Atorvastatin Calcium [Lipitor] 40 mg PO QHS 06/27/15 Clopidogrel Bisulfate [Plavix] 75 mg PO DAILY 06/27/15 Hydroxychloroquine [Plaquenil] 200 mg PO BIDCM 06/27/15 Lansoprazole [Prevacid] 30 mg PO BID 06/27/15 albuterol sulfate 2.5 mg INHALATION Q6H PRN ml 03/30/17 diclofenac sodium 1 % topical gel 2 g TOPICAL BID PRN g 03/30/17 ergocalciferol (vitamin D2) 1,250 50,000 unit PO QWEEK 03/30/17 mcg (50,000 unit) capsule gabapentin 300 mg capsule 300 mg PO TID cap 03/30/17 insulin lispro 100 unit/mL See Rx Instructions CONTINUOUS 03/30/17 subcutaneous solution SUBCUTANEOUS INFUSION QDAY ml multivitamin 1 tab PO QAM 03/30/17 nitroglycerin 0.4 mg sublingual 0.4 mg SUBLINGUAL Q5M PRN 03/30/17 tablet polyethylene glycol 3350 17 17 g PO QDAY PRN 03/30/17 gram/dose oral powder pramipexole 0.25 mg tablet 0.5 mg PO QHS tab 07/24/17 insulin lispro 100 unit/mL 120 unit SC QDAY #1100 ml 10/26/17 subcutaneous solution miconazole nitrate 2 % topical 1 applic TOPICAL DAILY 03/30/18 powder tramadol 50 mg tablet 50 mg PO Q6H PRN 06/21/18 amlodipine 5 mg tablet 5 mg PO DAILY #90 tab 09/22/18 acetaminophen 325 mg tablet 650 mg PO Q6H tab 10/14/18 clonazepam 1 mg tablet 1 mg PO QHS PRN tab 10/14/18 lactobacillus combination no.9 4 4,000 mmu cells PO DAILY 10/14/18 billion cell capsule metoprolol succinate 25 mg capsule 25 mg PO DAILY 10/14/18 sprinkle, ext. release 24 hr simethicone 180 mg capsule 360 mg PO DAILY PRN cap 10/14/18 losartan 100 mg tablet 100 mg PO QDAY #90 tab 05/19/19 Past Medical History (Chronic Problems): Chronic Problems (Last Reviewed 06/22/19 @ 05:[address] Lizandro Richards MD) Essential (primary) hypertension (Chronic) Atherosclerosis of coronary artery of [place] heart without angina pectoris (Chronic) PTCA and JUANY of proximal RCA 06/26/2000 @ [facility] per Dr. Ada Garcia History of stroke (Chronic) Has had multiple TIA's , also major CVA circa October 2012 Hyperlipidemia (Chronic) Surgical History: cataract - With intraocular lens implants, tonsillectomy, - - Rotator cuff on the left, left retinal detachment, laser surgeries on her eye for diabetic retinopathy, 3 sections, excision of benign breast cysts. 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 Lizandro Richards MD) Father No problems noted. Mother Breast cancer Thyroid disorder Heart disease Brother Heart disease, Onset Age: 52 History Items: No pertinent history Maternal Family History: Family History (Last Reviewed 06/22/19 @ 05:[address] Lizandro Richards MD) Father No problems noted. Mother Breast cancer Thyroid disorder Heart disease Brother Heart disease, Onset Age: 52 History Items: No pertinent history Lives: Spouse/ Significant Other Smoking Status: Never smoker Review of Systems - Review of Systems General: Reports: Fever, Fatigue, Weakness. Denies: Night Sweats Cardiovascular: Denies: Chest Discomfort, Shortness of Breath, Orthopnea, PND, Peripheral Edema, Palpitations, Lightheadedness, Dizziness, Near Syncope, Syncope Respiratory: Denies: Cough, Sputum Production, Hemoptysis Gastrointestinal: Reports: Nausea, Emesis, Diarrhea. Denies: Hematemesis, Hematochezia, Melena Genitourinary: Denies: Dysuria, Hematuria Skin: Denies: Rash Subjectve: This is a 73-year-old white male who appears to be resting comfortably at this time in no acute distress. Objective: Vital Signs Temp Pulse Resp BP Pulse Ox 97.9 F 71 18 145/74 H 98 06/22/19 03:26 06/22/19 03:31 06/22/19 03:26 06/22/19 03:26 06/22/19 03:26 Oxygen Flow Rate (L/min) 2 Oxygen Delivery Method Nasal Cannula Weight: 189 lb 6.033 oz Body Mass Index (BMI) 33.0 Finger Stick Blood Glucose 161 Intake and Output for Last 24 Hours 06/20/19 06/21/19 06/22/19 23:59 23:59 23:59 Intake Total 1100 / 1100 Output Total 300 / 300 Balance 800 / 800 General: Awake, Alert, Oriented x 3, Cooperative, No Acute Distress HEENT: Atraumatic, Normocephalic, PERRL, EOMI, Sclera Non Icteric Oral: Moist Mucosa Neck: Supple, Good ROM, No JVD Lungs: Clear to auscultation Cardiovascular: Regular Rhythm, Normal S1, Normal S2 Abdomen: Bowel Sounds Present, Soft, Non Tender Extremities: Trace RLE Edema, Trace LLE Edema Psych/Mental Status: Appropriate 06/21/19 23:09: WBC 8.7, RBC 4.56, Hgb 14.0, Hct 41.5, MCV 91.0, MCH 30.7, MCHC 33.7, Plt Count 262, MPV 11.8, Immature Gran % (Auto) 0.300, Neut % (Auto) 67.0, Lymph % (Auto) 18.0 L, Saunders % (Auto) 11.2 H, Eos % (Auto) 2.9, Baso % (Auto) 0.6, Absolute Neuts (auto) 5.8, Nucleated RBC % 0 06/21/19 23:09: Sodium 140, Potassium 3.2 L, Chloride 105, Carbon Dioxide 28.0, Anion Gap 7, BUN 15, Creatinine 0.89, Est GFR (MDRD) Af Amer 80, Est GFR (MDRD) Non-Af 66, BUN/Creatinine Ratio 16.9, Glucose 277 H, Calcium 9.5, Total Bilirubin 0.70, Troponin I 0.211 H 06/22/19 00:07: Urine Color Yellow, Urine Clarity Clear, Urine pH 7.0, Ur Specific [place] 1.010, Urine Protein Negative, Urine Glucose (UA) 250 H, Urine Ketones Negative, Urine Occult Blood Negative, Urine Nitrite Negative, Urine Bilirubin Negative, Urine Urobilinogen Normal, Ur Leukocyte Esterase 100 H, Urine RBC 0-5 SEEN, Urine WBC 5-10 SEEN 06/22/19 03:46: Troponin I 0.225 H 06/22/19 06:25: WBC 7.0, RBC 4.30, Hgb 13.1, Hct 39.1, MCV 90.9, MCH 30.5, MCHC 33.5, Plt Count 237, MPV 11.5, Immature Gran % (Auto) 0.300, Neut % (Auto) 61.4, Lymph % (Auto) 19.5, Saunders % (Auto) 12.4 H, Eos % (Auto) 6.0 H, Baso % (Auto) 0.4, Absolute Neuts (auto) 4.3, Nucleated RBC % 0 06/22/19 06:25: Sodium 142, Potassium 3.1 L, Chloride 107, Carbon Dioxide 29.0, Anion Gap 6, BUN 9, Creatinine 0.68, Est GFR (MDRD) Af Amer 109, Est GFR (MDRD) Non-Af 90, BUN/Creatinine Ratio 13.2, Glucose 148 H, Calcium 8.9, Magnesium 1.6, Troponin I 0.203 H Rhythm: Sinus rhythm EKG: As noted above ECHO: 12/16/2014 Interpretation Summary Normal LV size. Left ventricular systolic function is normal. The estimated ejection fraction is 60 %. Contrast injection was performed. Transesophageal echocardiogram: 12-17-2014 Interpretation Summary Normal LV size. Left ventricular systolic function is normal. The estimated ejection fraction is 60 %. Bubble contrast study negative for right to left interatrial shunt. No thrombus is detected in the left atrial appendage. Moderate atherosclerosis of the aortic arch. Cardiac Cath: Report unavailable for review at this time PCI: Report unavailable for review at this time: However, based upon previous outpatient cardiovascular notes, there is a comment patient received PCI to the RCA in 2000 at [facility] CXR: Portable chest x-ray: Preliminary evaluation: No acute cardiopulmonary disease process appreciated: Please see official report Assessment/Plan 1. Abnormal enzymes/troponin I level The patient has indeterminate troponin I levels. It is unclear whether or not this is related to a recent cardiovascular event either a primary ED event versus a type II CAD event. At the moment she denies any acute cardiovascular symptoms. Her symptoms she described appear compatible with an underlying viral syndrome. She is going to be monitored. Her cardiac enzymes and ECG can be followed. An echocardiogram can be requested to reassess her left ventricular wall motion for any obvious new wall motion and abnormalities that would be concerning for an underlying cardiovascular event. Depending upon her course she may or may not need additional noninvasive or invasive studies. In the interim she will continue cardiovascular medical therapy as deemed appropriate. 2. CAD status post PCI-remote The patient does have a history of CAD status post remote PCI as noted above. At the moment she has indeterminate troponin I levels of uncertain etiology. She will continue to be followed as noted above. She will continue medical therapy as deemed appropriate while she undergoes further evaluation care for her presumed viral syndrome. 3. Hyperlipidemia She will continue medical therapy. 4. Hypertension Her blood pressure will be followed and her medications can be adjusted as needed. 5. Gastroenteritis The patient has had a history of fever, nausea, emesis, diarrhea. There is concerned that she may have experienced a viral gastroenteritis. She is undergoing evaluation care per internal medicine. Comment: The patient's case was discussed and reviewed with the patient and Dr. Ponce is a [facility] emergency department staff. This note was generated using a voice recognition system and there may be incorrect words, spelling or punctuation that were not noted when reviewing the office note prior to saving.
--- NOTE | 2019-06-22 07:45 | ECHOCS_ITS ---
Reason For Study: CAD/ASHD Procedure This was a 2D Doppler, Color Flow transthoracic echocardiogram. The study was technically difficult. Contrast injection was performed. Exam performed portable in patient room. Left Ventricle Normal LV size. Left ventricular systolic function is normal. The estimated ejection fraction is 60 %. Diastolic function is indeterminate. No regional wall motion abnormalities noted. Right Ventricle Normal RV size. Normal systolic function. Atria Normal left atrium. Normal right atrium. No doppler evidence for ASD. Mitral Valve There is moderate mitral annular calcification. Extension of the mitral annular calcification onto the mitral valve leaflets. Mild (1+) mitral valve insufficiency. Tricuspid Valve Normal tricuspid valve. Trivial tricuspid valve insufficiency. Right ventricular systolic pressure estimated to be 33 mmHg. Aortic Valve Trisinus/trileaflet aortic valve. Mild focal aortic valve calcification. Pulmonic Valve The pulmonic valve is not well visualized. Great Vessels Normal sized aortic root. Pericardium/Pleural No pericardial effusion. Medication Diluted definity 3ml given slow IV push to enhance endocardial definition. MMode/2D Measurements & Calculations LVIDd: 4.4 cm IVSd: 1.2 cm Ao root diam: 2.2 cm LVIDs: 2.4 cm LVPWd: 1.1 cm RVDd: 3.6 cm FS: 44.3 % LAV(MOD-bp): 28.7 ml LA A4 area: 12.0 cm2 LA dimension(2D): 3.7 cm LAV(MOD-bp) Indexed: 15.2 ml/m2 LAV(MOD-sp2): 31.0 ml LAV(MOD-sp4): 25.7 ml RA A4 area: 14.2 cm2 Doppler Measurements & Calculations MV E max patricio: 89.1 cm/sec Lat Peak E' Patricio: 6.3 cm/sec Med Peak E' Patricio: 4.3 cm/sec MV A max patricio: 104.9 cm/sec E/E' lat: 14.2 E/E' med: 20.6 MV E/A: 0.85 Ao V2 max: 175.0 cm/sec LV V1 max: 106.1 cm/sec PA V2 max: 108.7 cm/sec Ao max P.2 mmHg LV V1 max P.5 mmHg Ao V2 mean: 129.2 cm/sec Ao mean P.3 mmHg Ao V2 VTI: 39.5 cm TR max patricio: 274.0 cm/sec TR max P.0 mmHg Interpretation Summary The study was technically difficult. Contrast injection was performed. Left ventricular systolic function is normal. The estimated ejection fraction is 60 %. There is moderate mitral annular calcification. Extension of the mitral annular calcification onto the mitral valve leaflets. Mild (1+) mitral valve insufficiency. Trivial tricuspid valve insufficiency. Mild focal aortic valve calcification. Right ventricular systolic pressure estimated to be 33 mmHg. Diastolic function is indeterminate. Ordering Physician: Zachary Gayle Referring Physician: Alcira Calderon Performed By: Brittney Jorgensen, MERLINE, RVT
[2019-06-22] MEDS: Multivitamins,Therapeutic Tablet 1 TABLET PO (09:25)
[2019-06-22] MEDS: Hydroxychloroquine 200 MG Tablet PO ×2 (09:25→17:58)
[2019-06-22] MEDS: Losartan Potassium 100 MG Tablet PO (09:25)
[2019-06-22] MEDS: Pantoprazole Sodium 40 MG Tablet PO ×2 (09:26→19:57)
[2019-06-22] MEDS: Metoprolol(XL)Succ 25 MG Tablet PO (09:26)
[2019-06-22] MEDS: Clopidogrel Bisulfate 75 MG Tablet PO (09:26)
[2019-06-22] MEDS: amLODIPine 5 MG Tablet PO (09:26)
--- NOTE | 2019-06-22 12:05 | PCM.PN.BLA ---
Progress Note Patient was seen and examined. Admitted in the early hours of this morning with nausea and vomiting and managed as a gastroenteritis. He was also found to have abnormal EKG with elevated troponins. Cardiology was consulted. Patient has type 1 diabetes and is on insulin pump. Blood sugars are negative. Patient has had no diarrhea since being admitted. Isolation precautions discontinued Vitals and blood work looks stable except for mild elevation in troponin. 2D echo is pending We will continue to monitor patient, PT and OT to evaluate and treat STROKE Vital Signs/Narrative: Vital Signs Temp Pulse Resp BP Pulse Ox 06/22/19 11:25 56 L 06/22/19 09:30 98.1 F 70 16 126/69 H 94 06/22/19 09:26 67 06/22/19 08:24 95
--- NOTE | 2019-06-22 12:19 | NURSING ---
Pt BGT per self meter is 131, no coverage given as pt BGT <150
--- NOTE | 2019-06-22 13:40 | CASEMGMT ---
RN CM Assessment Note Presentation: Gastroenteritis Intro role of CM and purpose of RN CM assessment to patient. Pt is awake, alert and able to participate. Pt had CVA in past and states she still has difficulty with memory and word finding. Demographics, PCP and Pharmacy verified. Pt states she is generally independent at home, but is able to assist if needed. Pt states she had requested script for Outpt PT at [facility] from her doctor but this was not completed. RN CM let pt know PT/OT would evaluate here and if recommended, could be set up for her. PCP: Dr. Calderon Specialists: Dr. Seaman, cardiology; Dr. Trejo, neurology, Endocrinologis (does not remember name). Preferred Pharmacy: [facility] Insurance: [facility] Prescription Benefit: yes LNOK : Vitor Russo Living Arrangements: Lives with her in multi level home. States has chair lift to bedroom area. Independent in Bathing, dressing. and pt share cooking and cleaning. Transportation: drives DME: rollator, wheelchair, tub bench (does not use) HHC/SNF: [facility] Inpt rehab in past. States may have had HHS in past, does not remember. Patient DC goals: Home DC PLAN: Home. PT/OT evaluations pending. RN CM advised to contact cm for any concerns/needs that may arise. Torey SARAVIA RN ACM
--- NOTE | 2019-06-22 15:10 | CASEMGMT ---
LUMA HARO NOTE; To room to talk w/pt. Pt states she does not have any concerns w/going home @ discharge. She declines need for HHC or OP therapy. She states if she feels in the future that she needs/wants HHC or OP therapy, that she knows she can discuss this with her PCP. Susie SARAVIA RN, CM
[2019-06-22] MEDS: Atorvastatin Calcium 40 MG Tablet PO (19:57)
[2019-06-22] MEDS: Pramipexole Di-HCl 0.5 MG Tablet PO (19:57)
--- NOTE | 2019-06-22 19:58 | NURSING ---
PATIENT HAS MACHINE ON ARM THAT READS BLOOD SUGAR, WILL NOT LET RN FINGER STICK. PATIENT CHECKED AND BLOOD SUGAR IS 79 AT THIS TIME. STATES THAT IS ABOUT WHERE IT RUNS. PATIENT WAS GIVEN A SNACK AT THIS TIME. WILL CONTINUE TO MONITOR
--- NOTE | 2019-06-22 22:31 | NURSING ---
PATIENT CHECKED BLOOD SUGAR AND WAS 93 AT THIS TIME.
[2019-06-23] VITALS (7 sets, daily range): BP systolic 120–150; BP diastolic 46–64; PULSE 58–67; RESP 16–18; TEMP 36.4–36.6; O2SAT 93–98
--- NOTE | 2019-06-23 02:33 | NURSING ---
PATIENT'S SELF MONITOR READ BLOOD SUGAR AT 74, GAVE PT EULALIA AND CRYSTAL. RECHECKED SUGAR WITH HOSPITAL MACHINE AND BLOOD SUGAR WAS 96 (PT MENTOR READ 70). PATIENT STATES SHE DOES NOT FEEL LIKE HER SUGAR IS LOW AT THIS TIME. WILL CONTINUE TO MONITOR.
[2019-06-23 02:46] LABS: Bedside Glucose 96 mg/dL (70-110)
[2019-06-23] MEDS: Gabapentin 300 MG Capsule PO (04:57)
[2019-06-23 08:35] LABS: Anion Gap 4 (5-15); BUN 8 mg/dL (7-18); BUN/Creat Ratio 9.5 RATIO (10-20); Chloride 112 mmol/L (98-107); Creatinine, Serum 0.84 mg/dL (0.55-1.02); EST Glomerular Filtration Rate 70 mL/min (>60); Est Glom Filt Rate - Afr Amer 85 mL/min (>60); Estimated Creatinine Clearance 50.08 ml/min; Glucose 104 mg/dL (74-106); Potassium 3.6 mmol/L (3.5-5.1); Sodium Level 143 mmol/L (136-145)
--- NOTE | 2019-06-23 08:51 | PN.CARD_ITS ---
Subjectve: Patient seen and evaluated. Appears to be much better this morning. Objective: Vital Signs Temp Pulse Resp BP Pulse Ox 97.8 F 61 16 120/62 94 06/23/19 02:15 06/23/19 07:09 06/23/19 02:15 06/23/19 02:15 06/23/19 07:25 Oxygen Flow Rate (L/min) 2 Oxygen Delivery Method Room Air Weight: 189 lb 6.033 oz Body Mass Index (BMI) 33.0 Finger Stick Blood Glucose 161 Intake and Output for Last 24 Hours 06/21/19 06/22/19 06/23/19 23:59 23:59 23:59 Intake Total 1100 / 1250 550 / 550 Output Total 300 / 700 600 / 600 Balance 800 / 550 -50 / -50 General: Awake, Alert, Oriented x 3 HEENT: PERRL, EOMI, Sclera Non Icteric Neck: Supple, Good ROM, No Lymph Node Enlargement Lungs: Clear to auscultation Cardiovascular: Regular Rhythm, Normal S1, Normal S2, No Murmurs, No Rubs, No Gallops Vascular: No Carotid Bruits, Normal Femoral Pulses, Normal Radial Pulses, Normal Dorsalis Pedal Pulse, Normal Posterior Tibial Pulses Abdomen: Bowel Sounds Present, Soft, Non Tender, No HSM, No Organomegaly Extremities: No Cyanosis, No Clubbing, No edema Musculoskeletal: No Erythema Skin: No Rashes Neurological: No Focal Motor or Sensory Deficit 06/22/19 09:14: Troponin I 0.181 H 06/23/19 08:16: Sodium 143, Potassium 3.6, Chloride 112 H, Carbon Dioxide 27.0, Anion Gap 4 L, BUN 8, Creatinine 0.84, Est GFR (MDRD) Af Amer 85, Est GFR (MDRD) Non-Af 70, BUN/Creatinine Ratio 9.5 L, Glucose 104, Calcium 9.0 Rhythm: EKG: ECHO: Stress Test: Cardiac Cath: PCI: CT Surgery: Holter monitor: EPS: PPM: CXR: Chest CT Scan: Medical Necessity - Tobacco Use Smoking Status: Never smoker Assessment/Plan 1. Abnormal enzymes/troponin I level The patient has indeterminate troponin I levels. At the moment she denies any acute cardiovascular symptoms. Her symptoms she described appear compatible with an underlying viral syndrome. It appears to be secondary to a type II event. My recommendation at this time would be with the fact that her ejection fraction is normal, to discharge her and follow her up as an outpatient. 2. CAD status post PCI-remote The patient does have a history of CAD status post remote PCI as noted above.At the moment she has indeterminate troponin I levels of uncertain etiology. She will continue to be followed as noted above. She will continue medical therapy as deemed appropriate while she undergoes further evaluation care for her presumed viral syndrome. 3. Hyperlipidemia She will continue medical therapy. 4. Hypertension Her blood pressure will be followed and her medications can be adjusted as n eeded. 5. Gastroenteritis The patient has had a history of fever, nausea, emesis, diarrhea. There is concerned that she may have experienced a viral gastroenteritis. She is undergoing evaluation care per internal medicine. Thank you for allowing me to participate in the care of your patient. Please don't hesitate to call if any issues arise
[2019-06-23] MEDS: Multivitamins,Therapeutic Tablet 1 TABLET PO (08:59)
[2019-06-23] MEDS: Hydroxychloroquine 200 MG Tablet PO (08:59)
[2019-06-23] MEDS: Aspirin 325 MG Tablet PO (08:59)
[2019-06-23] MEDS: Acetaminophen 325 MG Tablet 650 MG PO (08:59)
[2019-06-23] MEDS: amLODIPine 5 MG Tablet PO (09:52)
[2019-06-23] MEDS: Clopidogrel Bisulfate 75 MG Tablet PO (09:52)
[2019-06-23] MEDS: Losartan Potassium 100 MG Tablet PO (09:52)
[2019-06-23] MEDS: Pantoprazole Sodium 40 MG Tablet PO (09:52)
[2019-06-23] MEDS: Metoprolol(XL)Succ 25 MG Tablet PO (09:52)
--- NOTE | 2019-06-23 10:40 | CASEMGMT ---
Therapy states that pt does not need any skilled therapy at discharge. Cara GE CM
--- NOTE | 2019-06-23 11:48 | DCINST_ITS ---
- Discharge Diagnoses Current Active Problems: Current Active and Chronic Problems (Last Reviewed 06/22/19 @ 05:[address] Lizandro Richards MD) Gastroenteritis (Acute) Abnormal EKG (Acute) Elevated troponin (Acute) You will use the following diet at home:: Calorie/Carbohydrate Controlled (specify 1200, 1400, etc) - 1800 david / day, Cardiac Your food should be the consistency of: Regular Your liquids should be the consistency of: Regular/Thin Discharge Activity: Return to Normal Activity Allergies/Adverse Reactions: Allergies amoxicillin [From Augmentin] Allergy (Severe, Verified 10/14/18 10:04) Unknown clavulanic acid [From Augmentin] Allergy (Severe, Verified 06/21/19 22:24) Unknown amitriptyline Allergy (Verified 06/21/19 22:24) Other doesnt remember cefadroxil [Cefadroxil] Allergy (Verified 06/21/19 22:24) Hives ephedrine Allergy (Verified 06/21/19 22:24) HEART RACES erythromycin estolate [From Ilosone] Allergy (Verified 06/21/19 22:24) Angioedema, HEART RACING iodine Allergy (Verified 06/21/19 22:24) Hives, ITCHING levofloxacin Allergy (Verified 06/21/19 22:24) Unknown LIGAMENT DAMAGE nortriptyline [Nortriptyline] Allergy (Verified 06/21/19 22:24) Unknown oxycodone [Oxycodone] Allergy (Verified 06/21/19 22:24) CONFUSION oxycodone HCl [From Percocet] Allergy (Verified 06/21/19 22:24) CONFUSION Sulfa (Sulfonamide Antibiotics) Allergy (Verified 06/21/19 22:24) Rash pregabalin [From Lyrica] Adverse Reaction (Severe, Verified 06/21/19 22:24) Vomiting acetaminophen [From Percocet] Adverse Reaction (Verified 06/21/19 22:24) Other CONFUSION aspirin [From Aggrenox] Adverse Reaction (Verified 06/21/19 22:24) Vomiting cephalexin Adverse Reaction (Verified 06/21/19 22:24) Nausea/Vom/Diarrhea doxycycline Adverse Reaction (Verified 06/21/19 22:24) Nausea/Vom/Diarrhea duloxetine HCl [From Cymbalta] Adverse Reaction (Verified 06/21/19 22:24) HEADACHE, STOMACH ACHE Medications to take at Discharge Aspirin 325 mg PO DAILY@0800 06/27/15 Atorvastatin Calcium [Lipitor] 40 mg PO QHS 06/27/15 Clopidogrel Bisulfate [Plavix] 75 mg PO DAILY 06/27/15 Hydroxychloroquine [Plaquenil] 200 mg PO BIDCM 06/27/15 Lansoprazole [Prevacid] 30 mg PO BID 06/27/15 albuterol sulfate 2.5 mg INHALATION Q6H PRN ml 03/30/17 diclofenac sodium 1 % topical gel 2 g TOPICAL BID PRN g 03/30/17 ergocalciferol (vitamin D2) 1,250 mcg (50,000 unit) capsule 50,000 unit PO QWEEK 03/30/17 gabapentin 300 mg capsule 300 mg PO TID cap 03/30/17 insulin lispro 100 unit/mL subcutaneous solution See Rx Instructions CONTINUOUS SUBCUTANEOUS INFUSION QDAY ml 03/30/17 multivitamin 1 tab PO QAM 03/30/17 nitroglycerin 0.4 mg sublingual tablet 0.4 mg SUBLINGUAL Q5M PRN 03/30/17 polyethylene glycol 3350 17 gram/dose oral powder 17 g PO QDAY PRN 03/30/17 pramipexole 0.25 mg tablet 0.5 mg PO QHS tab 07/24/17 insulin lispro 100 unit/mL subcutaneous solution 120 unit SC QDAY #1100 ml 10/26/17 miconazole nitrate 2 % topical powder 1 applic TOPICAL DAILY 03/30/18 tramadol 50 mg tablet 50 mg PO Q6H PRN 06/21/18 amlodipine 5 mg tablet 5 mg PO DAILY #90 tab 09/22/18 acetaminophen 325 mg tablet 650 mg PO Q6H tab 10/14/18 clonazepam 1 mg tablet 1 mg PO QHS PRN tab 10/14/18 lactobacillus combination no.9 4 billion cell capsule 4,000 mmu cells PO DAILY 10/14/18 metoprolol succinate 25 mg capsule sprinkle, ext. release 24 hr 25 mg PO DAILY 10/14/18 simethicone 180 mg capsule 360 mg PO DAILY PRN cap 10/14/18 losartan 100 mg tablet 100 mg PO QDAY #90 tab 05/19/19 Primary Care Physician: Alcira Calderon MD [Primary Care Provider] - Please follow up with your Primary Care Physician in: 1-2 weeks Test Results: Test results from this visit will be discussed in further detail at your follow- up appointment, if applicable. Please Follow Up With: Leon Seaman MD When: as directed Please Follow Up With: Rheumatology When: 3-4 weeks Please Follow Up With: Endocrinology When: 3-4 weeks Proposed Discharge Date: 06/23/19
--- NOTE | 2019-06-23 15:28 | DS.PCM_ITS ---
<Herbert Guerra - Last Filed: 06/23/19 15:28> Discharge Date and Diagnosis Date of Admission: 06/22/19 Date of Discharge: 06/23/19 - Primary Discharge Diagnosis Acute gastroenteritis, viral Indeterminate troponin, unclear etiology Hx CAD prior stents T1 DM RA HTN - Secondary Discharge Diagnosis Chronic Problems (Last Reviewed 06/22/19 @ 05:[address] Lizandro Richards MD) Essential (primary) hypertension (Chronic) Atherosclerosis of coronary artery of [place] heart without angina pectoris (Chronic) PTCA and JUANY of proximal RCA 06/26/2000 @ [facility] per Dr. Ada Garcia History of stroke (Chronic) Has had multiple TIA's , also major CVA circa October 2012 Hyperlipidemia (Chronic) Hospital Course and Treatment Imaging Results: CT/Abdomen/Pelvis W IV Cont ONLY IMPRESSION: No acute findings in the abdomen or pelvis. Small bilateral nonobstructing renal calculi. No evidence of bowel obstruction. No fracture identified. RAD/Chest 1 View (Portable) IMPRESSION: Degenerative changes, as described above. No demonstrated acute cardiopulmonary process. Echo: Interpretation Summary The study was technically difficult. Contrast injection was performed. Left ventricular systolic function is normal. The estimated ejection fraction is 60 %. There is moderate mitral annular calcification. Extension of the mitral annular calcification onto the mitral valve leaflets. Mild (1+) mitral valve insufficiency. Trivial tricuspid valve insufficiency. Mild focal aortic valve calcification. Right ventricular systolic pressure estimated to be 33 mmHg. Diastolic function is indeterminate. Consults: Cardiology - [place] Operations: None Procedures: 2-D Echocardiogram Summary of Care Provided: Hospital course: The patient is a 73 year old F past medical history of CAD with prior stents, rheumatoid arthritis, hypertension, who presented the emergency room with greater than 1 month of intractable nausea vomiting and diarrhea. She also had some lightheadedness and dizziness. In the emergency room she had possible T wave changes in her EKG and an indeterminate troponin. She was admitted for indeterminate troponin and gastroenteritis which was felt to be viral. She was given IV fluids. She had resolution of her nausea vomiting and diarrhea with no episodes occurring after admission to the hospital. Cardiology was consulted and obtained an echocardiogram which did not show any significant changes. Troponin remained flat and she had no chest pain. No further work-up was indicated at this time. She was discharged home in stable condition. 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 This patient was seen by Herbert Guerra PA-C under the supervision of Doctor Sherrell. [] - Physical Exam Vitals/I&O's: Vital Signs Temp Pulse Resp BP Pulse Ox 97.6 F L 62 18 150/64 H 98 06/23/19 13:05 06/23/19 13:05 06/23/19 13:05 06/23/19 13:05 06/23/19 13:05 Oxygen Flow Rate (L/min) 2 Oxygen Delivery Method Room Air Weight: 189 lb 6.033 oz Body Mass Index (BMI) 33.0 Finger Stick Blood Glucose 161 Intake and Output for Last 24 Hours 06/21/19 06/22/19 06/23/19 23:59 23:59 23:59 Intake Total 1100 / 1250 550 / 550 Output Total 300 / 700 600 / 600 Balance 800 / 550 -50 / -50 General: Alert, Oriented x3, Cooperative HEENT: Atraumatic, PERRLA, EOMI, Normocephalic Neck: Supple, No JVD, Negative Carotid Bruits Lungs: Clear to auscultation, Normal air movement Cardiovascular: Regular rate, No murmurs Abdomen: Bowel Sounds Present, Soft, Non Tender Extremities: No edema, Capillary Refill Less than 3 Seconds Skin: No rashes, No breakdown Musculoskeletal: No Tenderness to Palpation of Joints or Extremities Neurological: Cranial nerves II-XII grossly intact Psych/Mental Status: Normal Affect, Appropriate Microbiology Past 72 Hours 06/22/19 00:07 Urine, Clean Catch Urine Culture - Final Mixed Gram Positive Organisms 06/21/19 23:00 Mucosa - Nasopharyngeal Influenza Types A,B Direct FA (DANIELLA) - Final Laboratory Results 06/23/19 02:29: POC Glucose 96 06/23/19 08:16: Sodium 143, Potassium 3.6, Chloride 112 H, Carbon Dioxide 27.0, Anion Gap 4 L, BUN 8, Creatinine 0.84, Estim Creat Clear Calc 50.08, Est GFR (MDRD) Af Amer 85, Est GFR (MDRD) Non-Af 70, BUN/Creatinine Ratio 9.5 L, Glucose 104, Calcium 9.0 Discharge Diet: Low fat/ Low Cholesterol, 1800 Calorie Control Diet, 2000 mg Sodium Diet Discharge Activity: Return to Normal Activity Home Medications: Medications to take at Discharge Aspirin 325 mg PO DAILY@0800 06/27/15 Atorvastatin Calcium [Lipitor] 40 mg PO QHS 06/27/15 Clopidogrel Bisulfate [Plavix] 75 mg PO DAILY 06/27/15 Hydroxychloroquine [Plaquenil] 200 mg PO BIDCM 06/27/15 Lansoprazole [Prevacid] 30 mg PO BID 06/27/15 albuterol sulfate 2.5 mg INHALATION Q6H PRN ml 03/30/17 diclofenac sodium 1 % topical gel 2 g TOPICAL BID PRN g 03/30/17 ergocalciferol (vitamin D2) 1,250 mcg (50,000 unit) capsule 50,000 unit PO QWEEK 03/30/17 gabapentin 300 mg capsule 300 mg PO TID cap 03/30/17 insulin lispro 100 unit/mL subcutaneous solution See Rx Instructions CONTINUOUS SUBCUTANEOUS INFUSION QDAY ml 03/30/17 multivitamin 1 tab PO QAM 03/30/17 nitroglycerin 0.4 mg sublingual tablet 0.4 mg SUBLINGUAL Q5M PRN 03/30/17 polyethylene glycol 3350 17 gram/dose oral powder 17 g PO QDAY PRN 03/30/17 pramipexole 0.25 mg tablet 0.5 mg PO QHS tab 07/24/17 insulin lispro 100 unit/mL subcutaneous solution 120 unit SC QDAY #1100 ml 10/26/17 miconazole nitrate 2 % topical powder 1 applic TOPICAL DAILY 03/30/18 tramadol 50 mg tablet 50 mg PO Q6H PRN 06/21/18 amlodipine 5 mg tablet 5 mg PO DAILY #90 tab 09/22/18 acetaminophen 325 mg tablet 650 mg PO Q6H tab 10/14/18 clonazepam 1 mg tablet 1 mg PO QHS PRN tab 10/14/18 lactobacillus combination no.9 4 billion cell capsule 4,000 mmu cells PO DAILY 10/14/18 metoprolol succinate 25 mg capsule sprinkle, ext. release 24 hr 25 mg PO DAILY 10/14/18 simethicone 180 mg capsule 360 mg PO DAILY PRN cap 10/14/18 losartan 100 mg tablet 100 mg PO QDAY #90 tab 05/19/19 Primary Care Physician: Alcira Calderon MD [Primary Care Provider] - Please follow up with your Primary Care Physician in: 1-2 weeks Please Follow Up With: Leon Seaman MD When: as directed Please Follow Up With: Rheumatology When: 3-4 weeks Please Follow Up With: Endocrinology When: 3-4 weeks Disposition: Home Minutes spent on discharge:: 35 Patient Condition:: Stable Medical Necessity - Tobacco Use Smoking Status: Never smoker Meaningful Use Info Meaningful Use Diagnoses (Choose all that apply): None applicable <[place] - Last Filed: 06/24/19 07:56> Discharge Date and Diagnosis - Secondary Discharge Diagnosis Chronic Problems (Last Reviewed 06/22/19 @ 05:[address] Lizandro Richards MD) Essential (primary) hypertension (Chronic) Atherosclerosis of coronary artery of [place] heart without angina pectoris (Chronic) PTCA and JUANY of proximal RCA 06/26/2000 @ [facility] per Dr. Ada Garcia History of stroke (Chronic) Has had multiple TIA's , also major CVA circa October 2012 Hyperlipidemia (Chronic) Hospital Course and Treatment Summary of Care Provided: This patient was seen in conjunction with RODERICK Isidro. I have independently interviewed and examined the patient and reviewed pertinent historical, laboratory, and other data. Please refer to RODERICK Isidro note for his patient's presentation, findings, and recommendations. I have reviewed and his note and concur with his documentation 73-year-old female with past medical history of CAD status post stent, rheumatoid arthritis, type I DM on insulin pump who was admitted with intractable nausea and vomiting and diarrhea. This was associated with some lightheadedness and dizziness. Patient had abnormal EKG in the emergency room with T waves in the inferior leads as well as indeterminant troponins. Cardiology was consulted and 2D echo did not show any significant changes. No further work-up was recommended. Patient had no diarrhea since she was admitted. She was hydrated with improvement in her strength. She was also seen by PT and OT and no further recommendations made. On the day of discharge, patient admits to feeling much improved. Denied any chest pain or dizziness or palpitation. Physical Exam: Gen: Looks in some discomfort, not pale, not jaundiced CVS:HS I +II, regular, no murmurs RESP: CTA GI: BS present and normal, soft, nontender, no palpable organs, insulin pump in situ EXT:No edema - Physical Exam Vitals/I&O's: Vital Signs Temp Pulse Resp BP Pulse Ox 97.6 F L 62 18 150/64 H 98 06/23/19 13:05 06/23/19 13:05 06/23/19 13:05 06/23/19 13:05 06/23/19 13:05 Oxygen Flow Rate (L/min) 2 Oxygen Delivery Method Room Air Weight: 85.9 kg Body Mass Index (BMI) 33.0 Finger Stick Blood Glucose 161 Intake and Output for Last 24 Hours 06/22/19 06/23/19 06/24/19 23:59 23:59 23:59 Intake Total 1100 / 1250 550 / 550 Output Total 300 / 700 600 / 600 Balance 800 / 550 -50 / -50 Microbiology Past 72 Hours 06/22/19 00:07 Urine, Clean Catch Urine Culture - Final Mixed Gram Positive Organisms 06/21/19 23:00 Mucosa - Nasopharyngeal Influenza Types A,B Direct FA (DANIELLA) - Final Laboratory Results 06/23/19 08:16: Sodium 143, Potassium 3.6, Chloride 112 H, Carbon Dioxide 27.0, Anion Gap 4 L, BUN 8, Creatinine 0.84, Estim Creat Clear Calc 50.08, Est GFR (MDRD) Af Amer 85, Est GFR (MDRD) Non-Af 70, BUN/Creatinine Ratio 9.5 L, Glucose 104, Calcium 9.0 Inpatient E&M: 33144 Disch Hosp
== END 2019-06-23 13:20 | disposition home or self-care (01) | DRG 392 ==
LOC: ED 23:17 → PCU 06-22 02:54
PROVIDERS: Admitting Provider Hospitalist; Emergency Provider Emergency Medicine; PCP Internal Medicine; Visit Provider Internal Medicine
DX: A08.4 Viral intestinal infection, unspecified (principal); M06.9 Rheumatoid arthritis, unspecified; I10 Essential (primary) hypertension; I25.10 Atherosclerotic heart disease of native coronary artery without angina pectoris; R79.89 Other specified abnormal findings of blood chemistry; E10.9 Type 1 diabetes mellitus without 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s; R94.31 Abnormal electrocardiogram [ECG] [EKG]; E78.5 Hyperlipidemia, unspecified; Z96.41 Presence of insulin pump (external) (internal); Z95.5 Presence of coronary angioplasty implant and graft; Z86.73 Personal history of transient ischemic attack (TIA), and cerebral infarction without residual deficits; Z79.4 Long term (current) use of insulin; Z79.899 Other long term (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 therapy; Z79.82 Long term (current) use of aspirin; Z79.02 Long term (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 of antithrombotics/antiplatelets
CPT/HCPCS: 36415; 71045; 74177; 80048; 80053; 81001; 82009; 82962; 83690; 83735; 84443; 84484; 85025; 87086; 87088; 87804; 93005; 93306; 97162; 97166; 99285; J7030; Q9957; Q9967; A4216; C8929

== ENCOUNTER 2021-01-20 16:48 | Emergency (ER) | payer MEDICARE, BC, SELFPAY ==
[2021-01-20 16:49] VITALS: BP 183/77; PULSE 68; RESP 16; TEMP 35.9; O2SAT 99; BMI 38.9
--- NOTE | 2021-01-20 17:30 | EX.ED.DYSGE1 ---
HPI History of Present Illness Chief Complaint: Back Informant: patient Onset/Context/Timing Onset: Days (2 days ago) Context: Gradual Onset Timing: Waxes and wanes Current Severity: Moderate Maximum Severity: Moderate Narrative Narrative: Patient presents secondary to left upper back pain. She states symptoms started 2 days ago. She had a similar episode a couple months ago that seemed to resolve after a few days. This past week she was changing her summer close out for her winter close. She was packing and unpacking about 8 totes with a lot of repetitive motion. She denies chest pain or shortness of breath. Pain is reproducible with palpation and movement. She took tramadol this morning along with Tylenol without improvement. She does follow Dr. Harding for pain injections. [facility] Medical History (Updated 01/20/21 @ 18:[address] Diamond Leal MD) Abnormal EKG Arthritis Atherosclerosis of coronary artery of [place] heart without angina pectoris Chronic neck and back pain Chronic rheumatic arthritis COPD (chronic obstructive pulmonary disease) Diabetic neuropathy Difficulty balancing Elevated troponin (06/22/19) Essential (primary) hypertension Fatty liver Gastroenteritis Hay fever History of stroke Hyperlipidemia Incontinence Knee pain Obstructive sleep apnea Polymyalgia rheumatica Shoulder pain Stroke Type 1 diabetes mellitus Home Medications aspirin 325 mg PO DAILY@0800 06/27/15 [History Last Taken 09/13/15] atorvastatin 40 mg PO QHS 06/27/15 [History Last Taken 06/26/15] clopidogrel 75 mg PO DAILY 06/27/15 [History Last Taken 09/13/15] hydroxychloroquine 200 mg PO BIDCM 06/27/15 [History Last Taken 06/27/15] lansoprazole 30 mg PO BID 06/27/15 [History Last Taken 06/27/15] albuterol sulfate 2.5 mg INHALATION Q6H PRN ml 03/30/17 [History Last Taken Unknown] diclofenac sodium 1 % topical gel 2 g TOPICAL BID PRN g 03/30/17 [History Last Taken Unknown] ergocalciferol (vitamin D2) 1,250 mcg (50,000 unit) capsule 50,000 unit PO QWEEK 03/30/17 [History Last Taken Unknown] insulin lispro 100 unit/mL subcutaneous solution See Rx Instructions CONTINUOUS SUBCUTANEOUS INFUSION QDAY ml 03/30/17 [History Last Taken Unknown] multivitamin 1 tab PO QAM 03/30/17 [History Last Taken Unknown] nitroglycerin 0.4 mg sublingual tablet 0.4 mg SUBLINGUAL Q5M PRN 03/30/17 [History Last Taken Unknown] insulin lispro 100 unit/mL subcutaneous solution 120 unit SC QDAY #1100 ml 10/26/17 [Rx Last Taken Unknown] miconazole nitrate 2 % topical powder 1 applic TOPICAL DAILY 03/30/18 [History Last Taken Unknown] tramadol 50 mg tablet 50 mg PO Q6H PRN 06/21/18 [History Last Taken Unknown] amlodipine 5 mg tablet 5 mg PO DAILY #90 tab 09/22/18 [Rx Last Taken Unknown] clonazepam 1 mg tablet 1 mg PO QHS PRN tab 10/14/18 [History Last Taken Unknown] lactobacillus combination no.9 4 billion cell capsule 4,000 mmu cells PO DAILY 10/14/18 [History Last Taken Unknown] simethicone 180 mg capsule 360 mg PO DAILY PRN cap 10/14/18 [History Last Taken Unknown] biotin 1 mg capsule 1 mg PO DAILY 10/14/19 [History Last Taken Unknown] losartan 100 mg tablet See Rx Instructions .ROUTE .COMPLEX #90 tab 05/14/20 [Rx Last Taken Unknown] acetaminophen 325 mg tablet 650 mg PO Q6H PRN tab 05/24/20 [History Last Taken Unknown] furosemide 20 mg tablet 20 mg PO DAILY PRN 05/24/20 [History Last Taken Unknown] montelukast 10 mg tablet 10 mg PO DAILY PRN 05/24/20 [History Last Taken Unknown] pramipexole 1 mg tablet 2 mg PO QHS tab 05/24/20 [History Last Taken Unknown] hydrocodone-acetaminophen 1 tab PO Q6H PRN 3 Days #6 tab 01/20/21 [Rx Last Taken Unknown] Allergy/AdvReac Type Severity Reaction Status Date / Time amoxicillin [From Augmentin] Allergy Severe Unknown Verified 01/20/21 17:46 clavulanic acid Allergy Severe Unknown Verified 01/20/21 17:46 [From Augmentin] amitriptyline Allergy Other Verified 01/20/21 17:46 cefadroxil [Cefadroxil] Allergy Hives Verified 01/20/21 17:46 ephedrine Allergy HEART RACES Verified 01/20/21 17:46 erythromycin estolate Allergy Angioedema, Verified 01/20/21 17:46 [From Ilosone] HEART RACING iodine Allergy Hives, Verified 01/20/21 17:46 ITCHING levofloxacin Allergy Unknown Verified 01/20/21 17:46 nortriptyline [Nortriptyline] Allergy Unknown Verified 01/20/21 17:46 oxycodone [Oxycodone] Allergy CONFUSION Verified 01/20/21 17:46 oxycodone HCl [From Percocet] Allergy CONFUSION Verified 01/20/21 17:46 Sulfa (Sulfonamide Allergy Rash Verified 01/20/21 17:46 Antibiotics) pregabalin [From Lyrica] AdvReac Severe Vomiting Verified 01/20/21 17:46 acetaminophen [From Percocet] AdvReac Other Verified 01/20/21 17:46 aspirin [From Aggrenox] AdvReac Vomiting Verified 01/20/21 17:46 cephalexin AdvReac Nausea/Vom/ Verified 01/20/21 17:46 Diarrhea doxycycline AdvReac Nausea/Vom/ Verified 01/20/21 17:46 Diarrhea duloxetine HCl AdvReac HEADACHE, Verified 01/20/21 17:46 [From Cymbalta] STOMACH ACHE Family History Father , age 76 No problems noted. Mother , Age 74 Breast cancer Thyroid disorder Heart disease Valvular heart disease Brother Heart disease, Onset Age: 52 Heart valve/murmur Surgical History axillary cyst removal bilat hand surgery H/O breast biopsy H/O lumpectomy H/O shoulder surgery H/O: History of coronary artery stent placement History of left heart catheterization (07/01/05) nasal growth removal Social History Smoking Status: Never smoker alcohol intake: never substance use type: does not use caffeine: No ROS ROS ED Constitutional Constitutional ED: Denies chills or fever(s) Eyes Eyes: Denies change in vision ENT ENT ED: Denies sore throat Cardiovascular Cardiovascular: Denies chest pain Respiratory/Chest Respiratory/Chest: Denies cough or dyspnea Gastrointestinal Gastrointestinal: Denies abdominal pain, diarrhea, nausea or vomiting Genitourinary Genitourinary ED: Denies dysuria Musculoskeletal Musculoskeletal: Reports arthralgias and back pain Integumentary Denies rash Neurologic Neurologic: Denies headache(s) or weakness Allergic/Immunologic Allergic/Immunologic ED: Denies urticaria EXAM Physical Exam Const Vital Signs: 01/20/21 16:49 Temperature 96.6 F L Temperature Source Temporal Pulse Rate 68 Respiratory Rate 16 Blood Pressure 183/77 H Blood Pressure Mean 112 Pulse Ox 99 Oxygen Delivery Method Room Air Positive well nourished and well developed General Appearance ED: well developed Eyes PERRL and EOMs intact bilaterally Neck supple Chest Wall inspection of chest normal and palpation of chest normal Resp normal respiratory effort and clear to auscultation bilaterally Cardio regular rate and regular rhythm GI normal to inspection, nondistended, normoactive bowel sounds and non-tender Palpation: soft Back/Spine Back/Spine Narrative: Reproducible tenderness in the left upper thoracic paraspinal muscles. No overlying skin change. No bony tenderness at the shoulder itself. Neuro oriented x3 Sensorium / Orientation: alert Motor Exam: strength 5/5 throughout Psych mental status grossly normal Skin no rashes or lesions noted MDM MDM MDM Narrative Medical decision making narrative: Patient is a 1 tab of [place] here and Lidoderm patch placed on her left upper back. Treatment and Re-Evaluation Comments:: On repeat evaluation she does report some improvement in her pain. She was given a second tab of [place] here and a prescription for 6 tabs. This will be filled at our hospital pharmacy [facility] so she will have medication at home. She is to call Dr. Harding tomorrow morning. Discharge Plan Triage Chief Complaint: Back ED Provider: Diamond Leal Dx/Rx/DC Orders Clinical Impression: Strain of thoracic paraspinal muscles excluding T1 and T2 levels Instructions: ED Back and Neck Pain, General Prescriptions: New hydrocodone-acetaminophen 5-325 mg tablet 1 tab PO Q6H PRN (Reason: pain) 3 Days Qty: 6 RF: 0 No Action albuterol sulfate 2.5 mg /3 mL (0.083 %) solution for nebulization 2.5 mg INHALATION Q6H PRN (Reason: Bronchodialation) RF: 0 multivitamin tablet 1 tab PO QAM RF: 0 diclofenac sodium [Voltaren] 1 % gel 2 g TOPICAL BID PRN (Reason: Pain/Inflammation) RF: 0 nitroglycerin [Nitrostat] 0.4 mg tablet, sublingual 0.4 mg SUBLINGUAL Q5M PRN (Reason: Cardiac/Chest Pain) RF: 0 insulin lispro [Humalog U-100 Insulin] 100 unit/mL solution See Rx Instructions Continuous Subcutaneous Infusion QDAY RF: 0 ergocalciferol (vitamin D2) 50,000 unit capsule 50,000 unit PO QWEEK RF: 0 clonazepam 1 mg tablet 1 mg PO QHS PRN (Reason: Anxiety/Insomnia) RF: 0 Adult 50 Plus Probiotic 4 billion cell capsule 4,000 mmu cells PO DAILY RF: 0 simethicone [Phazyme] 180 mg capsule 360 mg PO DAILY PRN (Reason: Indigestion) RF: 0 acetaminophen 325 mg tablet 650 mg PO Q6H PRN (Reason: pain) RF: 0 miconazole nitrate 2 % topical powder 2 % powder 1 applic TOPICAL DAILY RF: 0 tramadol 50 mg tablet 50 mg PO Q6H PRN (Reason: pain) RF: 0 biotin 1 mg capsule 1 mg PO DAILY RF: 0 furosemide [Lasix] 20 mg tablet 20 mg PO DAILY PRNRF: 0 montelukast [Singulair] 10 mg tablet 10 mg PO DAILY PRNRF: 0 pramipexole 1 mg tablet 2 mg PO QHS RF: 0 atorvastatin 40 MG tablet 40 mg PO QHS RF: 0 clopidogrel 75 MG tablet 75 mg PO DAILY RF: 0 lansoprazole 30 MG capsule 30 mg PO BID RF: 0 hydroxychloroquine 200 MG tablet 200 mg PO BIDCM RF: 0 aspirin 325 MG tablet 325 mg PO DAILY@0800 RF: 0 insulin lispro [Humalog U-100 Insulin] 100 unit/mL solution 120 unit SC QDAY Qty: 1100 RF: 3 amlodipine 5 mg tablet 5 mg PO DAILY Qty: 90 RF: 3 losartan 100 mg tablet See Rx Instructions .ROUTE .COMPLEX Qty: 90 RF: 3 Primary Care Provider: Alcira Calderon Referrals: Cheyanne Harding MD [STAFF PHYSICIAN] - As soon as possible Alcira Calderon MD [Primary Care Provider] - Disposition Disposition: Home, Self Care
[2021-01-20] MEDS: Lidocaine 5% Patch 1 PATCH TOPICAL (17:42)
[2021-01-20] MEDS: HYDROcodone Bitartrate/Apap 5/325 Tablet PO ×2 (17:45→19:13)
[2021-01-20 19:15] VITALS: BP 170/76; PULSE 62; RESP 17; O2SAT 97
== END 2021-01-20 19:22 | disposition home or self-care (01) ==
PROVIDERS: Emergency Provider Emergency Medicine; PCP Internal Medicine
DX: S29.012A Strain of muscle and tendon of back wall of thorax, initial encounter (principal); I25.10 Atherosclerotic heart disease of native coronary artery without angina pectoris; X58.XXXA Exposure to other specified factors, initial encounter; Z86.73 Personal history of transient ischemic attack (TIA), and cerebral infarction without residual deficits
CPT/HCPCS: 99284

== ENCOUNTER → 2021-01-21 13:02 | Outpatient (CLI) | payer MEDICARE, BC, SELFPAY ==
[2021-01-21 15:53] LABS: ALB/GLOB Ratio 0.8 RATIO (0.9-2.4); AST(SGOT) 33 U/L (15-37); Alanine Aminotransfer ALT/SGPT 44 U/L (13-56); Albumin, Serum 3.4 g/dL (3.2-5.0); Alkaline Phosphatase 121 U/L (45-117); Anion Gap 7 (5-15); BUN 13 mg/dL (7-18); BUN/Creat Ratio 17.7 RATIO (10-20); Chloride 106 mmol/L (98-107); Cholesterol 163 mg/dL (200); Creatinine, Serum 0.74 mg/dL (0.55-1.02); EST Glomerular Filtration Rate 82 mL/min (>60); Est Glom Filt Rate - Afr Amer 99 mL/min (>60); Globulin 4.2 g/dL (2.2-4.2); Glucose 178 mg/dL (74-106); High Density Lipoprotein 83 mg/dL; Potassium 4.3 mmol/L (3.5-5.1); Protein, Total 7.6 g/dL (6.4-8.2); Sodium Level 139 mmol/L (136-145); Thyroid Stim Hormone (TSH) 2.11 uIU/mL (0.358-3.74); Triglycerides 75 mg/dL; Very Low Density Lipoprotein 15 mg/dL (5-40)
== END ==
PROVIDERS: PCP Internal Medicine; Referring Provider Nurse Practitioner Family; Visit Provider Nurse Practitioner Family
DX: E10.9 Type 1 diabetes mellitus without 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s (principal); E78.00 Pure hypercholesterolemia, unspecified; E55.9 Vitamin D deficiency, unspecified
CPT/HCPCS: 36415; 80053; 80061; 82306; 84443

== ENCOUNTER → 2021-01-22 | Outpatient (CLI) | payer MEDICARE, BC, SELFPAY ==
[2021-01-22 12:38] LABS: Microalbumin,Random Urine 36.7 mg/L (NO RANGE EST.)
== END | disposition home or self-care (01) ==
LOC: LABSPEC 10:57
PROVIDERS: PCP Internal Medicine; Referring Provider Nurse Practitioner Family; Visit Provider Nurse Practitioner Family
DX: E10.9 Type 1 diabetes mellitus without 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s (principal)
CPT/HCPCS: 82043; 82570

== ENCOUNTER → 2021-12-04 | Outpatient (CLI) | payer MEDICARE, BC, SELFPAY | END | disposition home or self-care (01) | PROVIDERS: PCP Internal Medicine; Referring Provider Nurse Practitioner Adult Health; Visit Provider Nurse Practitioner Adult Health | DX: K59.09 Other constipation (principal); Z87.19 Personal history of other diseases of the digestive system | CPT/HCPCS: 36415 ==

== ENCOUNTER → 2022-02-26 | Outpatient (CLI) | payer MEDICARE, BC, SELFPAY ==
--- NOTE | 2022-02-26 08:58 | NM_ITS ---
CLINICAL: 76-year-old female with history of clinical gastroparesis. SEMI-SOLID PHASE 99m Tc SULFUR COLLOID GASTRIC EMPTYING STUDY COMPARISON: None available FINDINGS: The patient was administered 1.1 mCi of 99m Tc sulfur colloid mixed with oatmeal and consumed per os. Image acquisitions in the anterior-posterior projections were obtained for 60 minutes. There is prompt visualization of the stomach. There is no gastroesophageal reflux identified. The T ? linear fit was calculated to be 120.09 minutes, (Normal: 12-56 minutes). NM/Gastric Emptying Study IMPRESSION: 1. ABNORMAL 99m Tc sulfur colloid semi-solid phase (oatmeal) gastric emptying imaging examination. A. There is delayed semi-solid phase gastric emptying compared to normal controls with maintained first order kinetics throughout all components of the examination. (David et al, J Nucl Med Tech 38: 186, 2010). Electronically Signed: Wellington Dhillon, at 21:13 EST ,
== END | disposition home or self-care (01) ==
LOC: NM 08:57
PROVIDERS: PCP Internal Medicine; Visit Provider Nurse Practitioner Adult Health
DX: K31.84 Gastroparesis (principal)
CPT/HCPCS: 78264; A9541

== ENCOUNTER → 2022-08-26 | Outpatient (CLI) | payer MEDICARE, BC, SELFPAY ==
[2022-08-27 14:10] LABS: ANTINUCLEAR ANTIBODIES DIRECT Negative (Negative)
[2022-08-28 09:09] LABS: CCP IgG Antibodies 6 units (0-19); Cytoplasmic Ab (C-ANCA) <1:20 titer (Neg:<1:20); Perinuclear Ab (P-ANCA) <1:20 titer (Neg:<1:20)
== END | disposition home or self-care (01) ==
PROVIDERS: PCP Internal Medicine; Referring Provider Internal Medicine Critical Care Medicine; Visit Provider Internal Medicine Critical Care Medicine
DX: J84.9 Interstitial pulmonary disease, unspecified (principal)
CPT/HCPCS: 36415; 86038; 86200; 86225; 86235; 86256; 86431

== ENCOUNTER → 2022-09-01 | Outpatient (CLI) | payer MEDICARE, BC, SELFPAY ==
--- NOTE | 2022-09-02 07:21 | PFT ---
INTRODUCTION: The patient is a 77-year-old female that presents for pulmonary function studies secondary to a diagnosis of interstitial lung disease. Respiratory therapy reported good patient effort. Bronchodilators were used during testing. INTERPRETATION: Forced expiration spirometry demonstrates no evidence of a large airways obstructive ventilatory defect. There was no significant response to aerosolized bronchodilators. Spirograms are of good quality and plateau normally. Body plethysmography was performed and revealed lung volumes to be within normal limits. Diffusing capacity by single breath CO was within normal limits. IMPRESSION: Grossly normal pulmonary function studies. TLC is at the lower limits of normal.
== END | disposition home or self-care (01) ==
LOC: PSN 07:10
PROVIDERS: PCP Internal Medicine; Referring Provider Internal Medicine Critical Care Medicine; Visit Provider Internal Medicine Critical Care Medicine
DX: J84.9 Interstitial pulmonary disease, unspecified (principal)
CPT/HCPCS: 94060; 94726; 94729

== ENCOUNTER → 2022-09-04 | Outpatient (CLI) | payer MEDICARE, BC, SELFPAY ==
[2022-09-04 11:15] VITALS: PULSE 100; PULSE 102; PULSE 104; PULSE 106; PULSE 86; PULSE 96; PULSE 98; PULSE 99; O2SAT 93; O2SAT 94; O2SAT 95; O2SAT 96; O2SAT 97
--- NOTE | 2022-09-05 09:11 | WT_ITS ---
PSN 6 Minute Walk Test 6 Minute Walk Test 6 Minute Walk Test: 6 Minute Walk Test PSN:6-Minute Walk Test Start: 09/04/22 11:16 Freq: Status: Active Protocol: RESP.6MINW Document 09/04/22 11:15 [facility] (Rec: 09/04/22 11:19 [facility] [id number]) 6 Minute Walk Test Date Performed 09/04/22 Time Performed 11:15 Height 5 ft 1 in Weight: 188 lb Weight in Pounds 188.[address]: Dr Garcia Assistive device used: None Pre-test Oxygen Delivery Method Room Air Pulse Rate (60-100 beats/min) 98 Dyspnea Chad Scale (0-10) 74 Exertion Chad Scale (6-20) 0 Number of Rests Taken 6 1st minute Oxygen Delivery Method Room Air Pulse Ox (%) 95 Pulse Rate (60-100 beats/min) 96 2nd minute Oxygen Delivery Method Room Air Pulse Ox (%) 93 Pulse Rate (60-100 beats/min) 99 3rd minute Oxygen Delivery Method Room Air Pulse Ox (%) 96 Pulse Rate (60-100 beats/min) 100 4th minute Oxygen Delivery Method Room Air Pulse Ox (%) 96 Pulse Rate (60-100 beats/min) 102 H 5th minute Oxygen Delivery Method Room Air Pulse Ox (%) 94 Pulse Rate (60-100 beats/min) 104 H 6th minute Oxygen Delivery Method Room Air Pulse Ox (%) 96 Pulse Rate (60-100 beats/min) 106 H Dyspnea Chad Scale (0-10) 0.5 Exertion Chad Scale (6-20) 14 Post-test Oxygen Delivery Method Nasal Cannula Pulse Ox (%) 97 Pulse Rate (60-100 beats/min) 86 Full Laps Walked 8 Partial Lap, Number of Tiles Walked 0 Total Distance Walked (ft) 472 Interpretation Interpretation: The patient ambulated 472 feet over the course of 6 minutes beginning on room air without assistive devices. Pretesting oxygen saturation was noted to be 98% on room air. With ambulation, the zay oxygen saturation was 93%. This testing indicated the presence of impaired walk distance and significant exertional oxygen desaturation. Recommendations Recommendations: There is no indication for the use of supplemental oxygen at this time. However, close interval follow-up is recommended, given the degree of oxygen desaturation noted during this study.
== END | disposition home or self-care (01) ==
LOC: PSN 10:53
PROVIDERS: PCP Internal Medicine; Referring Provider Internal Medicine Critical Care Medicine; Visit Provider Internal Medicine Critical Care Medicine
DX: J84.9 Interstitial pulmonary disease, unspecified (principal)
CPT/HCPCS: 94618

== ENCOUNTER → 2023-02-11 | Outpatient (CLI) | payer MEDICARE, BC, SELFPAY ==
[2023-02-11 11:35] LABS: Glucose 61 mg/dL (74-106)
[2023-02-12 11:09] LABS: C-Peptide < 0.1 ng/mL (1.1-4.4)
== END | disposition home or self-care (01) ==
LOC: LABSPEC 10:14
PROVIDERS: PCP Internal Medicine; Referring Provider Nurse Practitioner Family; Visit Provider Nurse Practitioner Family
DX: E10.65 Type 1 diabetes mellitus with hyperglycemia (principal)
CPT/HCPCS: 36415; 82947; 84681

== ENCOUNTER 2023-04-08 07:51 | Day surgery (SDC) | payer MEDICARE, BC, SELFPAY ==
--- NOTE | 2023-04-08 | COLBX_PTH ---
PATIENT: KYLIE LIGHT LOC: EN U#:[id number] AGE/SX: 77/F ROOM: RE04/08/[address]: Dr. Karl Dyer DO : 1945 BED: DIS: 04/08/2023 SPEC #: [id number] RECD: 04/08/23 13:49 STATUS: KASIA REManuel #: [id number] KEISHA: 04/08/23 00:[address]: Karl Dyer DEPT: SURGICAL PATHOLOGY RECD BY: Wallace Wagner ENTERED: 04/08/23 13:50 SP TYPE: COLON BX OTHR DR: Dr. Alcira Calderon MD Tissues: A - COLON BIOPSY B - Cecum, NOS C - Ileum, NOS D - SPLENIC FLEXURE E - Sigmoid colon biopsy F - Sigmoid colon biopsy Procedures: Surgery Specimen Level IV HEADER OPERATION: Colonoscopy with biopsy, polypectomy PRE-OP DIAGNOSIS: Chronic constipation, gastroparesis TISSUE SUBMITTED: A - Hepatic flexure polyps x2, B - Cecal polyp, C - Terminal ileum polyp, D - Splenic flexure polyp biopsy, E - Sigmoid polyp, F - Sigmoid polyp MICROSCOPIC DIAGNOSIS A. Hepatic flexure polyps, biopsy: Fragments of tubular adenoma. B. Cecal polyp, biopsy: Fragments of tubular adenoma. C. Terminal ileum polyp, biopsy: Fragments of benign small bowel mucosa. See comment. D. Splenic flexure polyp, biopsy: Tubular adenoma. E. Sigmoid polyp, biopsy: Tubular adenoma. F. Sigmoid colon polyp, biopsy: Polypoid fragments of benign colonic mucosa. See comment. AM:iris 04/09/2023 COMMENT C. Neither hyperplastic nor adenomatous change is seen. Clinical correlation is suggested. F. Neither hyperplastic nor adenomatous change is seen. Clinical correlation is suggested. MICROSCOPIC DESCRIPTION Slides are reviewed. GROSS DESCRIPTION A - Received in fixative is one container labeled with the patient's name and designated hepatic flexure polyps x2. The specimen consists of multiple irregular fragments of light bustos soft tissue that in aggregate measure 0.8 x 0.5 x 0.1 cm. The specimen is totally submitted in one cassette. B - Received in fixative is one container labeled with the patient's name and designated cecal polyp. The specimen consists of multiple irregular fragments of light bustos soft tissue that in aggregate measure 1.5 x 0.3 x 0.1 cm. Fragments of fecal material are also noted. The specimen is totally submitted in one cassette. C - Received in fixative is one container labeled with the patient's name and designated terminal ileum biopsy. The specimen consists of multiple irregular fragments of light bustos soft tissue that in aggregate measure 0.6 x 0.3 x 0.1 cm. The specimen is totally submitted in one cassette. D - Received in fixative is one container labeled with the patient's name and designated splenic flexure polyp biopsy. The specimen consists of one irregular fragment of light bustos soft tissue that measures 0.3 x 0.3 x 0.1 cm. The specimen is totally submitted in one cassette. E - Received in fixative is one container labeled with the patient's name and designated sigmoid polyp. The specimen consists of one irregular fragment of light bustos soft tissue that measures 0.3 x 0.3 x 0.1 cm. A few fragments of fecal material are also noted. The specimen is totally submitted in one cassette. F - Received in fixative is one container labeled with the patient's name and designated sigmoid biopsy. The specimen consists of one irregular fragment of light bustos soft tissue that measures 0.3 x 0.3 x 0.1 cm. The specimen is totally submitted in one cassette. / SJ:rg 04/08/2023 TC:5 CPT: 23593 x6
[2023-04-08 08:25] VITALS: BP 133/41; PULSE 66; RESP 16; TEMP 36.2; O2SAT 100; BMI 35.4
[2023-04-08] MEDS: Lactated Ringers 1,000 ML 15 ML IV (08:29)
--- NOTE | 2023-04-08 09:11 | HP.PCM_ITS ---
History and Physical Date of Admission: 04/08/23 77 F who presents to the office today for PMH CAD, RA, COPD, DM1, stroke, HLD, insomnia, obesity, RLS, vit D deficiency *BGI established 8.17.22 for chronic constipation starting in childhood with positive results from mineral oil; in teens/early adulthood she developed abdominal cramping and loose stools which then normalized until 20 years ago when she developed constipation again with small stools with incomplete evacuation up to TID with upper abdominal discomfort. Failed medications include Dulcolax, MiraLAX, benefiber, Colace, Linzess 72mcg (diarrhea) ? GET 11.. 120.09 minutes (12-56) OV 12.8.22 continue mineral oil and start fiber tablets. Gastroparesis is not symptomatic. OV 12.4.23 continues to have constipation with lack of BM 3-4 days with movement of small hard pellet stools with preceding lower abdominal pain despite use of mineral oil and PRN stool softener. ROS Const Constitutional: Positive for fatigue; No fever(s), headache(s), weight change, sleep problems, abnormal sleep pattern or change in appetite ENT ENT: No headache(s), difficulty swallowing, hoarseness or sore throat Resp Respiratory: No cough, hemoptysis or shortness of breath Cardio Cardiology: Positive for leg pain with exertion; No chest pain at rest or generalized swelling Gastro GI: Positive for bloating, change in bowel habits, constipation, heartburn and nausea/dyspepsia; No abdominal pain, belching, change in stool character, coffee ground emesis, cramping, diarrhea, difficulty swallowing, feeling full early, excessive flatus, incontinent of stools, Vomiting blood/hematemesis, Blood in stool, loose stools, Black,tarry stools, pain with swallowing or vomiting Musc Musculoskeletal: Positive for joint pain, back pain, muscle weakness, Arthritis, restless legs and leg pain with exertion; No joint swelling, numbness or tingling Skin Skin: Positive for dry skin, itchy eyes and rash Neuro Neurology: Positive for restless legs; No behavioral changes, confusion, headache(s), numbness or tingling Psych Psychiatric: No abnormal sleep pattern, No anxiety, No behavioral changes, No change in appetite, No confusion and No depression Endo Endocrine: Positive for fatigue; No cold intolerance, heat intolerance, increased thirst/drinking or weight change Aller/Imm Allergy/Immunologic: Positive for itchy eyes; No food intolerance Willy/Lymp Hematologic/Lymphatic: Positive for easy bruising; No easy bleeding or enlarged lymph nodes Exam Const General: cooperative, healthy appearing, comfortable, no acute distress, well developed and not cushingoid Nutritional Appearance: well nourished Orientation: alert, awake and oriented x3 HENMT Head: normal to inspection Ears: hearing grossly normal bilaterally Nose: external nose normal Mouth: oral mucosae normal Eyes General: appearance normal, both eyes and all related structures Alignment and Position: alignment normal Periorbital: periorbital findings normal Eyelids: eyelids normal Conjunctivae: conjunctivae normal Neck Neck: normal visual inspection Neck mass: No Thyroid: thyroid normal Chest Chest palpation & inspection: normal inspection of the chest Resp Effort & Inspection: normal respiratory effort, able to speak in complete sentences, symmetric chest movement, no audible wheezes and no cough Cardio Rate: regular rate Rhythm: regular rhythm GI Inspection: normal to inspection Auscultation: normal bowel sounds Palpation: soft and no hepatosplenomegaly Skin General: no rashes or lesions noted Neuro General: patient alert, patient awake and patient oriented x3 Cranial Nerves: CN's II-XI intact bilaterally Cognition: normal cognition Speech: speech normal Motor: muscle tone normal throughout Psych Appearance: grossly normal Mental Status: mental status grossly normal Mood: congruent mood Affect: normal affect Speech and Movement: speech and movement normal Attitude: cooperative Thought Process: normal Thought Content: normal Quality Reporting Tobacco Screening ([facility] 138) Smoking Status: Never smoker Assessment and Plan Assessment and Plan (1) Chronic constipation: Status: Chronic Plan: She has chronic idiopathic constipation likely secondary to diabetic induced s low transit constipation with some pelvic floor dysfunction secondary to long- term type 1 diabetes. She has used osmotic laxatives in the past along with stimulants and stool softeners. She was given Linzess therapy but it was too strong for her. She does use marijuana on a daily basis with some intermittent results. I will put her on magnesium citrate 200 mg in the morning and at night along with administration of lactulose therapy. She will do this for approximately 2 weeks. She also has a history of adenomatous polyps. Her last colonoscopy was approximately 5 years ago. We will schedule her for colon surveillance endoscopy. (2) Gastroparesis: Status: Chronic Plan: He does have some bloating from her gastroparesis but it is not horrible. Her gastric emptying time was 120 minutes with no normal range being 30 minutes to 52 minutes. I removed her gastroparesis and be helped by facilitating normal bowel movements instead of putting her on medication regimen for her gastroparesis. She is doing well with a prebiotic that she takes [id number] so we will continue that for now. Orders: Orders Colonoscopy 04/08/23 K59.09 - Other constipation Medications: New peg 3350-electrolytes 236-22.74-6.74 -5.86 gram (Golytely) until fecal effluent is clear 240 mL PO Q10M 4,000 mL 0RF I have examined the patient and the H&P has been reviewed. There are no clinical changes since date of exam.
[2023-04-08 09:41] VITALS: BP 133/41; BP 98/49; PULSE 57; RESP 16; TEMP 36.4; O2SAT 92
--- NOTE | 2023-04-08 09:44 | OP.COLON_ITS ---
Patient Name: Mckayla Russo Procedure Date: 04/08/2023 9:13 AM Date of : 1945 Age: 77 Procedure: Colonoscopy Indications: Chronic diarrhea Providers: Karl Dyer DO Referring MD: Karl Dyer DO Medicines: Monitored Anesthesia Care Patient Profile: This is a 77 year old female. Refer to note in patient chart for documentation of history and physical. Last Colonoscopy: date unknown. Unable to locate last colonoscopy report. Complications: No immediate 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s. Procedure: Pre-Anesthesia Assessment: - Prior to the procedure, a History and Physical was performed, and patient medications and allergies were reviewed. The patient is competent. The risks and benefits of the procedure and the sedation options and risks were discussed with the patient. All questions were answered and informed consent was obtained. Patient identification and proposed procedure were verified by the physician. Mental Status Examination: normal. Prophylactic Antibiotics: The patient does not require prophylactic antibiotics. Prior Anticoagulants: The patient has taken no anticoagulant or antiplatelet agents. ASA Grade Assessment: III - A patient with severe systemic disease. After reviewing the risks and benefits, the patient was deemed in satisfactory condition to undergo the procedure. The anesthesia plan was to use monitored anesthesia care (MAC). Immediately prior to administration of medications, the patient was re-assessed for adequacy to receive sedatives. The heart rate, respiratory rate, oxygen saturations, blood pressure, adequacy of pulmonary ventilation, and response to care were monitored throughout the procedure. The physical status of the patient was re-assessed after the procedure. After I obtained informed consent, the scope was passed under direct vision. Throughout the procedure, the patient's blood pressure, pulse, and oxygen saturations were monitored continuously. The Colonoscope was introduced through the anus and advanced to the cecum, identified by appendiceal orifice and ileocecal valve. The colonoscopy was performed without difficulty. The patient tolerated the procedure well. The quality of the bowel preparation was adequate. The terminal ileum, ileocecal valve, appendiceal orifice, and rectum were photographed. Scope In: 9:22:28 AM Scope Withdrawal Time 0 hours 8 minutes 48 seconds Scope Out: 9:37:40 AM Total Procedure Duration Time 0 hours 15 minutes 12 seconds Findings: The perianal and digital rectal examinations were normal. Multiple small and large-mouthed diverticula were found in the recto-sigmoid colon and sigmoid colon. Two sessile polyps were found in the sigmoid colon and cecum. The polyps were 1 to 2 mm in size. These polyps were removed with a hot snare. Resection and retrieval were complete. Verification of patient identification for the specimen was done. Estimated blood loss was minimal. Three sessile polyps were found in the splenic flexure, transverse colon and ascending colon. The polyps were 1 to 2 mm in size. These polyps were removed with a cold snare. Resection and retrieval were complete. Verification of patient identification for the specimen was done. Estimated blood loss was minimal. An area of mildly congested mucosa was found in the sigmoid colon. Biopsies were taken with a cold forceps for histology. Verification of patient identification for the specimen was done. Estimated blood loss was minimal. A patchy area of mucosa in the terminal ileum was granular. Biopsies were taken with a cold forceps for histology. Verification of patient identification for the specimen was done. Estimated blood loss was minimal. Impression: - Diverticulosis in the recto-sigmoid colon and in the sigmoid colon. - Two 1 to 2 mm polyps in the sigmoid colon and in the cecum, removed with a hot snare. Resected and retrieved. - Three 1 to 2 mm polyps at the splenic flexure, in the transverse colon and in the ascending colon, removed with a cold snare. Resected and retrieved. - Congested mucosa in the sigmoid colon. Biopsied. - Granularity in the terminal ileum. Biopsied. Recommendation: - Discharge patient to home. - Resume previous diet. - Continue present medications. - Await pathology results. - Repeat colonoscopy in 1 year for surveillance. Procedure Code(s): --- Professional --- 55323, Colonoscopy, flexible; with removal of tumor(s), polyp(s), or other lesion(s) by snare technique 44860, 59, Colonoscopy, flexible; with biopsy, single or multiple CPT copyright 2021 [employer]. All rights reserved. The codes documented in this report are preliminary and upon balance screwhead polisher review may be revised to meet current compliance requirements. Karl Dyer DO 04/08/2023 9:44:34 AM This report has been signed electronically. Number of Addenda: 0 Note Initiated On: 04/08/2023 9:13 AM
[2023-04-08 09:45] VITALS: BP 104/44; BP 133/41; PULSE 57; RESP 18; O2SAT 91
--- NOTE | 2023-04-08 09:45 | OP.CCLET_ITS ---
04/08/2023 Alcira Calderon [address] [place] [address] Re : Colonoscopy procedure for Mckayla Russo Dear Dr. Calderon This procedure was performed on Saturday, April 08, 2023. My impressions and recommendations are as follows: Impressions : - Diverticulosis in the recto-sigmoid colon and in the sigmoid colon. - Two 1 to 2 mm polyps in the sigmoid colon and in the cecum, removed with a hot snare. Resected and retrieved. - Three 1 to 2 mm polyps at the splenic flexure, in the transverse colon and in the ascending colon, removed with a cold snare. Resected and retrieved. - Congested mucosa in the sigmoid colon. Biopsied. - Granularity in the terminal ileum. Biopsied. Recommendations : - Discharge patient to home. - Resume previous diet. - Continue present medications. - Await pathology results. - Repeat colonoscopy in 1 year for surveillance. My findings are described in the full procedure note, which is enclosed. If I can be of further assistance, please feel free to contact me at . Sincerely, Karl Dyer, 04/08/2023 9:44:34 AM This report has been signed electronically.
[2023-04-08 09:50] VITALS: BP 110/53; BP 133/41; PULSE 58; RESP 16; O2SAT 95
[2023-04-08 09:58] VITALS: BP 118/53; BP 133/41; PULSE 67; RESP 16; TEMP 36.4; O2SAT 98
[2023-04-08 10:20] VITALS: BP 133/41
== END 2023-04-08 10:27 | disposition home or self-care (01) ==
LOC: EN 07:53 → AC 07:54
PROVIDERS: PCP Internal Medicine; Referring Provider Internal Medicine; Visit Provider Internal Medicine Gastroenterology
PROC: 0DJD8ZZ Inspection of Lower Intestinal Tract, Via Natural or Artificial Opening Endoscopic (ICD-10-PCS; CPT 45378; principal; 2023-04-08 08:55)
DX: D12.3 Benign neoplasm of transverse colon (principal); J44.9 Chronic obstructive pulmonary disease, unspecified; E10.43 Type 1 diabetes mellitus with diabetic autonomic (poly)neuropathy; K52.9 Noninfective gastroenteritis and colitis, unspecified; K57.30 Diverticulosis of large intestine without perforation or abscess without bleeding; K59.09 Other constipation; K31.84 Gastroparesis; D12.0 Benign neoplasm of cecum; D12.5 Benign neoplasm of sigmoid colon; Z79.82 Long term (current) use of aspirin; Z79.899 Other long term (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 therapy; Z87.19 Personal history of other diseases of the digestive system; E78.00 Pure hypercholesterolemia, unspecified; E66.9 Obesity, unspecified; Z96.41 Presence of insulin pump (external) (internal); I25.10 Atherosclerotic heart disease of native coronary artery without angina pectoris; Z79.51 Long term (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 of inhaled steroids
CPT/HCPCS: 45385; 45380; 88305; J7120; J2405

== ENCOUNTER → 2023-05-18 | Outpatient (CLI) | payer MEDICARE, BC, SELFPAY ==
--- NOTE | 2023-05-18 12:45 | RAD_ITS ---
EXAM: XR PELVIS COMPLETE, 3 OR MORE VIEWS CLINICAL INDICATION: RIGHT HIP PAIN TECHNIQUE: Frontal and lateral or oblique views of the pelvis. COMPARISON: Lumbar spine on the same date. FINDINGS: BONES/JOINTS: Degenerative changes in the lower lumbar spine. Symmetric arthrosis of the SI joints. Trochanteric enthesopathy bilaterally. Acetabular hypertrophy and sclerosis bilaterally. No displaced fracture. No widening of the pubic symphysis. SOFT TISSUES: No significant abnormality. No soft tissue swelling or gas. VASCULATURE: Vascular calcifications. RAD/HIP, UNI W/ Pelvis 2-3 Views IMPRESSION: No acute fracture. Degenerative changes. Electronically Signed: Shan May DO at 23:56 EST ,
--- NOTE | 2023-05-18 12:45 | RAD_ITS ---
EXAM: XR LUMBOSACRAL SPINE, 2 OR 3 VIEWS CLINICAL INDICATION: FALL pain. TECHNIQUE: Frontal and lateral views of the lumbar spine and sacrum. COMPARISON: Hip radiographs on the same date. FINDINGS: VERTEBRAE: Multilevel endplate osteophytosis and facet arthrosis. [place] left curvature of the lumbar spine. No discrete evidence of spondylolysis or spondylolisthesis and no evidence of an acute fracture. DISC SPACES: Multilevel intervertebral disc height loss. Multilevel vacuum disc phenomenon. VASCULATURE: Vascular calcifications. GASTROINTESTINAL TRACT: Normal as visualized. Included bowel gas pattern is non-obstructive. RAD/Lumbar Spine 2 or 3 Views IMPRESSION: No discrete evidence of spondylolysis or spondylolisthesis and no evidence of an acute fracture. Degenerative changes. Electronically Signed: Shan May DO at 23:55 EST ,
--- OUTSIDE RECORDS SUMMARY | 2023-05-18 12:53 | XMS RPT_ITS | CCD ---
Author Name Unknown Address [address] [place] [address] Organization [facility] Care Team Providers Care [employer] Name Role Phone Darryn Anderson Primary Care Provider Darryn Anderson MD Primary Care Provider Darryn Anderson MD Primary Care Provider Javier Raquel Unavailable Jonas Etienne Unavailable Javier DYKES Raquel Unavailable Darryn Anderson MD Primary Care Provider Linus Herrera MDpana Unavailable Jonas Etienne Unavailable Javier DYKES, Raquel Unavailable Jonas Etienne Unavailable Darryn Anderson MD Primary Care Provider Linus Herrera MDpana Unavailable Jonas Etienne Unavailable Darryn Anderson MD Primary Care Provider Darryn Anderson MD Primary Care Provider DARRYN ANDERSON Referring Unavailable DARRYN ANDERSON Primary Care Unavailable MANUELA THOMAS Attending Unavailable AMANDRESO, IVAN Referring Unavailable DARRYN ANDERSON Primary Care Unavailable AMESPERANZA, IVAN Attending Unavailable DARRYN ANDERSON Primary Care Unavailable AMURAO, IVAN Attending Unavailable AMURAO, IVAN Referring Unavailable AMURAO, IVAN Attending Unavailable GANTA, DARRYN C Primary Care Unavailable AMURAO, IVAN Referring Unavailable AMURAO, IVAN Attending Unavailable GANTA, DARRYN C Primary Care Unavailable AMURAO, IVAN Referring Unavailable GANTA, DARRYN C Primary Care Unavailable SELF, SELF Referring Unavailable STAINBROOK JR JR, CLINTON Attending Unavaila ble STAINBROOK JR JR, CL[place]ON Attending Unavaila ble GANTA, DARRYN C Primary Care Unavailable SELF, SELF Referring Unavailable STAINBROOK JR JR, CL[place] Attending Unavaila ble GANTA, DARRYN C Primary Care Unavailable SELF, SELF Referring Unavailable STAINBROOK JR JR, [place] Attending Unavaila ble GANTA, DARRYN C Primary Care Unavailable SELF, SELF Referring Unavailable GANTA, DARRYN C Primary Care Unavailable AMURAO, IVAN Referring Unavailable GANTA, DARRYN C Primary Care Unavailable AMURAO, IVAN Attending Unavailable Jonas Etienne MD Unavailable [phone] GANTA, DARRYN C Referring Unavailable AMURAO, IVAN Attending Unavailable GANTA, DARRYN C Primary Care Unavailable GANTA, DARRYN C Referring Unavailable AMURAO, IVAN Attending Unavailable GANTA, DARRYN C Primary Care Unavailable OLDER, SULTANA Attending Unavailable GANTA, DARRYN Primary Care Unavailable OLDER, SULTANA Referring Unavailable GANTA, DARRYN Primary Care Unavailable GANTA, DARRYN Primary Care Unavailable LAUREN RANGEL Attending Unavailable GANTA, DARRYN Primary Care Unavailable GANTA, DARRYN Primary Care Unavailable OLDER, SULTANA Attending Unavailable GANTA, DARRYN Primary Care Unavailable OLDER, SULTANA Attending Unavailable GANTA, DARRYN Primary Care Unavailable VIDA PITT Referring Unavailable GANTA, DARRYN Primary Care Unavailable [facility] Referring Unavailable GANTA, DARRYN Primary Care Unavailable OLDER, SULTANA Referring Unavailable CANDIS KOROMAA Attending Unavailable GANTA, DARRYN Primary Care Unavailable OLDER, SULTANA Referring Unavailable GANTA, DARRYN Primary Care Unavailable OLDER, SULTANA Referring Unavailable GANTA, DARRYN Primary Care Unavailable OLDER, SULTANA Referring Unavailable GRAJEDA, SHAILEY Attending Unavailable GANTA, DARRYN Primary Care Unavailable GRAJEDA, SHAILEY Referring Unavailable GANTA, DARRYN Primary Care Unavailable OLDER, SULTANA Attending Unavailable GANTA, DARRYN Primary Care Unavailable OLDER, SULTANA Referring Unavailable GANTA, DARRYN Primary Care Unavailable GRAJEDA, SHAILEY Referring Unavailable GANTA, DARRYN Primary Care Unavailable OLDER, SULTANA Attending Unavailable GANTA, DARRYN Primary Care Unavailable OLDER, SULTANA Referring Unavailable GANTA, DARRYN Primary Care Unavailable GANTA, DARRYN Primary Care Unavailable OLDER, SULTANA Attending Unavailable GANTA, DARRYN Primary Care Unavailable OLDER, SULTANA Attending Unavailable GANTA, DARRYN Primary Care Unavailable OLDER, SULTANA Attending Unavailable GANTA, DARRYN Primary Care Unavailable OLDER, SULTANA Referring Unavailable GANTA, DARRYN Primary Care Unavailable GANTA, DARRYN Primary Care Unavailable GANTA, DARRYN Attending Unavailable Allergies Allergy Classification Reported Allergen(s) Allergy Type Date of Onset Reaction(s) Facility (10 sources) Acetaminophen Drug Allergy 5 [facility] (10 sources) Aluminum aspirin Drug Allergy 5 [facility] (20 sources) Amitriptyline; Translations: [AMITRIPTYLINE] Drug Allergy 3 Other: See Comments [facility] (10 sources) Amoxicillin / Clavulanate Drug Allergy 1 [facility] (20 sources) Cefadroxil; Translations: [CEFADROXIL] Drug Allergy 5 Hives [facility] (3 sources) Dipyridamole Drug Allergy 5 [facility] (20 sources) Doxycycline; Translations: [DOXYCYCLINE] Drug Allergy 2 GI Upset [facility] (20 sources) ePHEDrine; Translations: [EPHEDRINE] Drug Allergy 5 Other: See Comments [facility] (20 sources) levoFLOXacin; Translations: [LEVOFLOXACIN] Drug Allergy 3 Other: See Comments [facility] (20 sources) oxyCODONE; Translations: [OXYCODONE] Drug Allergy 5 Mental Status Change [facility] (20 sources) pregabalin; Translations: [PREGABALIN] Drug Allergy 3 Other: See Comments [facility] (3 sources) Sulfonamides (Antibiotic) Propensity to adverse reactions to drug 1 [facility] (20 sources) Acetaminophen / oxyCODONE; Translations: [OXYCODONE-ACETAM INOPHEN] Drug Allergy 1 Unknown [facility] Work Phone: (20 sources) Aspirin / Dipyridamole; Translations: [ASPIRIN-DIPYRIDA MOLE] Drug Allergy 9 [facility] Work Phone: (20 sources) Cephalexin; Translations: [CEPHALEXIN (BULK)] Drug Allergy 9 GI Upset [facility] Work Phone: [phone] (20 sources) DULoxetine; Translations: [DULOXETINE] Drug Allergy 6 Unknown [facility] Work Phone: (20 sources) Erythromycin Drug Allergy 5 Swelling [facility] (20 sources) Iodine; Translations: [IODINE] Drug Allergy 7 Itching [facility] Work Phone: (20 sources) Nortriptyline; Translations: [NORTRIPTYLINE] Drug Allergy 3 Other: See Comments [facility] Work Phone: [phone] (20 sources) Sulfonamides (Antibiotic); Translations: [SULFA (SULFONAMIDE ANTIBIOTICS)] Propensity to adverse reactions 5 [facility] (7 sources) Dipyridamole Propensity to adverse reactions to drug 5 [facility] (7 sources) Pregabalin Propensity to adverse reactions to drug 5 [facility] (2 sources) OTHER; Translations: [OTHER] Propensity to adverse reactions (disorder) 5 [facility] Other [facility] (1 source) prednisoLONE; Translations: [ISOLONE FORTE] Drug Allergy 3 [facility] Main [facility] Medications Current Medications Medication Drug Class(es) Dates Sig (Normalized) Sig (Original) adapalene 0.001 mg/mg topical gel (1 source) Retinoid Start: 09-30-2019 adapalene 0.1 % Gel Apply 1 Application topically 2 times daily. 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 0 09/30/2019 Active Problems Active Problems Problem Classification Problem Date Documented Da te Episodic/Chronic Acquired foot deformities (2 sources) Hammer toe; Translations: [Other hammer toe(s) (acquired), left foot] Chronic Acquired foot deformities (2 sources) Hammer toe; Translations: [Other hammer toe(s) (acquired), right foot] Chronic Acute cerebrovascular disease (20 sources) Cerebral infarction; Translations: [Cerebral infarction, unspecified] Onset: 0 01-16-2015 Chronic Anxiety disorders (20 sources) Anxiety state; Translations: [Generalized anxiety disorder] Onset: 6 10-02-2017 Chronic Asthma (20 sources) Asthma; Translations: [Unspecified asthma, uncomplicated] Onset: 0 05-16-2019 Chronic Coronary atherosclerosis and other heart disease (20 sources) Coronary atherosclerosis; Translations: [Atherosclerotic heart disease of [place] coronary artery without angina pectoris] Onset: 6 09-29-2019 Chronic Diabetes mellitus with 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s (20 sources) Diabetic polyneuropathy; Translations: [Diabetic neuropathy] Onset: 9 05-16-2019 Chronic Diabetes mellitus without 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 (20 sources) Type 1 diabetes mellitus; Translations: [Type 1 diabetes mellitus with other diabetic ophthalmic 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] Onset: 9 05-16-2019 Chronic Disorders of lipid metabolism (20 sources) Dyslipidemia; Translations: [Hyperlipidemia, unspecified] Onset: 6 05-16-2019 Chronic Diverticulosis and diverticulitis (20 sources) Diverticulosis of colon; Translations: [Diverticulosis of large intestine without perforation or abscess without bleeding] Onset: 0 04-25-2010 Chronic Esophageal disorders (20 sources) Gastroesophageal reflux disease; Translations: [Gastro-esophageal reflux disease without esophagitis] Onset: 6 05-16-2019 Chronic Esophageal disorders (20 sources) Esophagitis; Translations: [Esophagitis] 08-08-2005 Episodic Essential hypertension (20 sources) Essential hypertension; Translations: [Hypertensive disorder] Onset: 0 05-16-2019 Chronic Fluid and electrolyte disorders (13 sources) Metabolic acidosis; Translations: [Metabolic acidosis] Onset: 3 Resolved: 3 09-29-2022 Episodic Hepatitis (10 sources) Nonalcoholic steatohepatitis; Translations: [Nonalcoholic steatohepatitis ([place]ILLA)] Onset: 1 Chronic Late effects of cerebrovascular disease (20 sources) Ataxia as sequela of cerebrovascular disease; 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] Onset: 6 08-12-2015 Chronic Mood disorders (20 sources) Major depression in remission; Translations: [Major depressive disorder, single episode, in full remission] Onset: 6 09-29-2019 Chronic Mycoses (3 sources) Onychomycosis; Translations: [Tinea unguium] Episodic Nutritional deficiencies (1 source) Vitamin D deficiency; Translations: [Vitamin D deficiency, unspecified] Chronic Occlusion or stenosis of precerebral arteries (20 sources) Bilateral stenosis of carotid arteries; Translations: [Occlusion and stenosis of bilateral carotid arteries] Onset: 2 05-10-2021 Chronic Osteoarthritis (20 sources) Primary osteoarthritis, right hand; Translations: [Bilateral wrist osteoarthritis] Onset: 0 05-16-2019 Chronic Other aftercare (11 sources) Long-term current use of systemic steroid; Translations: [correction (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 of systemic steroids] Onset: 1 Episodic Other aftercare (20 sources) Patient encounter status; Translations: [terminal manager (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 of antithrombotics/antipl atelets] Onset: 0 Resolved: 1 03-04-2021 Episodic Other aftercare (10 sources) H/O: high risk medication; Translations: [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 [employer] (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 therapy] Onset: 3 09-29-2022 Episodic Other aftercare (20 sources) Drug therapy finding; Translations: [Other half-way (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 therapy] Onset: 2 09-29-2022 Episodic Other aftercare (2 sources) terminal manager (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 of systemic steroids; Translations: [correction (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 of systemic steroids] Onset: 1 Episodic Other bone disease and musculoskeletal deformities (2 sources) Disorder of skeletal system; Translations: [Disorder of bone and cartilage] Onset: 0 05-16-2019 Chronic Other bone disease and musculoskeletal deformities (2 sources) Osteopenia; Translations: [Other specified disorders of bone density and structure, right thigh] 02-23-2023 Episodic Other bone disease and musculoskeletal deformities (1 source) Other specified disorders of bone density and structure, right thigh; Translations: [Osteopenia of right hip] Onset: 3 Episodic Other circulatory disease (14 sources) History of cerebrovascular accident; Translations: [Personal history of transient ischemic attack (TIA), and cerebral infarction without residual deficits] Onset: 0 05-16-2019 Episodic Other connective tissue disease (14 sources) H/O: rheumatoid arthritis; Translations: [Personal history of other diseases of the musculoskeletal system and connective tissue] Onset: 0 05-16-2019 Episodic Other connective tissue disease (3 sources) Pain of toe of left foot; Translations: [Pain in left toe(s)] Episodic Other connective tissue disease (3 sources) Pain of toe of right foot; Translations: [Pain in right toe(s)] Episodic Other connective tissue disease (1 source) Pain in right foot; Translations: [Pain in right foot] Episodic Other connective tissue disease (2 sources) Pain of bilateral hands; Translations: [Bilateral hand pain] Onset: 0 05-16-2019 Other gastrointestinal disorders (3 sources) Chronic constipation; Translations: [Other constipation] Episodic Other gastrointestinal disorders (1 source) Abdominal bloating; Translations: [Abdominal distension (gaseous)] Episodic Other hereditary and degenerative nervous system conditions (20 sources) Restless legs; Translations: [Restless legs syndrome] Onset: 1 06-25-2010 Chronic Other liver diseases (14 sources) Steatosis of liver; Translations: [Fatty (change of) liver, not elsewhere classified] Onset: 0 05-16-2019 Chronic Other liver diseases (2 sources) Fatty (change of) liver, not elsewhere classified; Translations: [Fatty (change of) liver, not elsewhere classified] Onset: 0 Chronic Other lower respiratory disease (7 sources) Interstitial lung disease; Translations: [Interstitial pulmonary disease, unspecified] Chronic Other lower respiratory disease (10 sources) Nonspecific interstitial pneumonia; Translations: [Other specified interstitial pulmonary diseases] Onset: 3 09-29-2022 Chronic Other lower respiratory disease (3 sources) Fibrosis of lung; Translations: [Pulmonary fibrosis, unspecified] Onset: 3 01-08-2023 Chronic Other lower respiratory disease (5 sources) Interstitial pulmonary disease, unspecified; Translations: [Interstitial pulmonary disease, unspecified] Onset: 3 Chronic Other lower respiratory disease (4 sources) Other specified interstitial pulmonary diseases; Translations: [Other specified interstitial pulmonary diseases] Onset: 3 Chronic Other lower respiratory disease (2 sources) Pulmonary fibrosis, unspecified; Translations: [Pulmonary fibrosis, unspecified] Onset: 3 Chronic Other lower respiratory disease (3 sources) Cough; Translations: [Acute cough] Episodic Other lower respiratory disease (2 sources) Dyspnea; Translations: [Shortness of breath] Episodic Other lower respiratory disease (2 sources) Chest pain on breathing; Translations: [Chest pain on breathing] Episodic Other non-traumatic joint disorders (12 sources) Bilateral rotator cuff arthropathy of shoulder; Translations: [Other specific arthropathies, not elsewhere classified, right shoulder] Onset: 0 Chronic Other non-traumatic joint disorders (2 sources) Other specific arthropathies, not elsewhere classified, right shoulder; Translations: [Other specific arthropathies, not elsewhere classified, right shoulder] Onset: 0 Chronic Other non-traumatic joint disorders (2 sources) Other specific arthropathies, not elsewhere classified, left shoulder; Translations: [Other specific arthropathies, not elsewhere classified, left shoulder] Onset: 0 Chronic Other non-traumatic joint disorders (4 sources) Shoulder pain; Translations: [Pain in right shoulder] Onset: 0 05-16-2019 Episodic Other non-traumatic joint disorders (2 sources) Hip pain; Translations: [Pain in left hip] 11-24-2022 Episodic Other non-traumatic joint disorders (2 sources) Bilateral wrist pain; Translations: [Bilateral wrist pain] Onset: 0 05-16-2019 Other non-traumatic joint disorders (2 sources) Bilateral rotator cuff arthropathy of shoulder; Translations: [Rotator cuff arthropathy of both shoulders] Onset: 0 05-16-2019 Other nutritional; endocrine; and metabolic disorders (9 sources) Obese class II; Translations: [Obesity, unspecified] Onset: 1 08-10-2020 Chronic Other nutritional; endocrine; and metabolic disorders (20 sources) Severe obesity; Translations: [Morbid (severe) obesity due to excess calories] Onset: 1 10-18-2020 Chronic Other skin disorders (5 sources) Keratosis; Translations: [Epidermal thickening, unspecified] Episodic Other skin disorders (2 sources) [place] - lesion ; Translations: [Corns and callosities] Episodic Pulmonary heart disease (6 sources) Pulmonary arterial hypertension; Translations: [Secondary pulmonary arterial hypertension] Onset: 3 11-12-2022 Chronic Residual codes; unclassified (20 sources) Sleep apnea; Translations: [Sleep apnea, unspecified] Onset: 7 05-12-2015 Chronic Residual codes; unclassified (20 sources) Obstructive sleep apnea syndrome; Translations: [Obstructive sleep apnea (adult) (pediatric)] Onset: 6 04-15-2021 Chronic Residual codes; unclassified (2 sources) Obstructive sleep apnea (adult) (pediatric); Translations: [Obstructive sleep apnea (adult) (pediatric)] Onset: 3 Chronic Residual codes; unclassified (2 sources) Dependence on other enabling machines and devices; Translations: [Dependence on other enabling machines and devices] Onset: 3 Chronic Residual codes; unclassified (1 source) Bilateral lower limb edema; Translations: [Localized edema] Episodic Rheumatoid arthritis and related disease (20 sources) Rheumatoid arthritis of multiple joints; Translations: [Rheumatoid arthritis without rheumatoid factor, multiple sites] Onset: 7 Resolved: 1 05-16-2019 Chronic Spondylosis; intervertebral disc disorders; other back problems (20 sources) Degeneration of lumbar intervertebral disc; Translations: [Degeneration of thoracic intervertebral disc] Onset: 1 05-16-2019 Chronic Superficial injury; contusion (1 source) Contusion of right lesser toe; Translations: [Contusion of right lesser toe(s) without damage to nail, initial encounter] Episodic Unclassified (2 sources) Patient encounter status; Translations: [Antiplatelet or antithrombotic long-term use] Onset: 0 05-16-2019 Unclassified (2 sources) Long-term current use of aspirin; Translations: [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] Onset: 0 05-16-2019 Unclassified (1 source) Acidosis, unspecified; Translations: [Acidosis, unspecified] Onset: 3 Unclassified (1 source) Cough, unspecified type; Translations: [Cough, unspecified type] Onset: 3 Unclassified (1 source) Acute cough; Translations: [Acute cough] Onset: 3 Urinary tract infections (2 sources) Urinary tract infectious disease; Translations: [Urinary tract infection, site not specified] Episodic Past or Other Problems Problem Classification Problem Date Documented Date Episodic/Chronic Allergic reactions (20 sources) H/O: multiple allergies; Translations: [Allergy status to unspecified drugs, medicaments and biological substances status] Onset: 06-19-2020 06-19-2020 Episodic Diabetes mellitus without 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 (20 sources) Hyperglycemia; Translations: [Hyperglycemia, unspecified] Onset: 07-10-2020 08-10-2020 Episodic E Codes: Fall (2 sources) Fall; Translations: [Unspecified fall, initial encounter] Onset: 11-24-2022 11-24-2022 Episodic Genitourinary symptoms and ill-defined conditions (6 sources) Dysuria; Translations: [Dysuria] Onset: 06-09-2022 Episodic Immunizations and screening for infectious disease (4 sources) Viral screening status; Translations: [Encounter for screening for other viral diseases] Onset: 01-08-2023 11-12-2022 Episodic Malaise and fatigue (11 sources) Fatigue; Translations: [Other fatigue] Onset: 05-16-2019 05-16-2019 Episodic Nutritional deficiencies (20 sources) Vitamin deficiency; Translations: [Vitamin deficiency, unspecified] Onset: 04-23-2009 04-25-2010 Episodic Other aftercare (13 sources) Long-term current use of aspirin; Translations: [correction (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 of aspirin] Onset: 05-16-2019 Episodic Other aftercare (1 source) correction (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 of aspirin; Translations: [correction (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 of aspirin] Onset: 05-16-2019 Episodic Other aftercare (2 sources) correction (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 of non-steroidal anti-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 (NSAID); Translations: [correction (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 of non-steroidal anti-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 (nsaid)] Onset: 09-02-2021 Episodic Other aftercare (2 sources) 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 [employer] (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 therapy; Translations: [Other half-way (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 therapy] Onset: 05-21-2022 Episodic Other bone disease and musculoskeletal deformities (9 sources) Disorder of skeletal system; Translations: [Disorder of bone, unspecified] Onset: 05-16-2019 05-16-2019 Episodic Other circulatory disease (2 sources) Personal history of transient ischemic attack (TIA), and cerebral infarction without residual deficits; Translations: [Personal history of transient ischemic attack (TIA), and cerebral infarction without residual deficits] Onset: 05-16-2019 Episodic Other connective tissue disease (9 sources) Pain of bilateral hands; Translations: [Pain in right hand] Onset: 05-16-2019 05-16-2019 Episodic Other connective tissue disease (9 sources) Triggering of digit; Translations: [Trigger finger, right index finger] Onset: 08-10-2020 08-10-2020 Episodic Other connective tissue disease (20 sources) Calcific tendinitis of shoulder; Translations: [Calcific tendinitis of unspecified shoulder] Onset: 07-09-2010 07-09-2010 Episodic Other connective tissue disease (2 sources) Personal history of other diseases of the musculoskeletal system and connective tissue; Translations: [Personal history of other diseases of the musculoskeletal system and connective tissue] Onset: 05-16-2019 Episodic Other diseases of veins and lymphatics (20 sources) Vascular insufficiency; Translations: [Venous insufficiency (chronic) (peripheral)] Onset: 09-08-2011 09-08-2011 Episodic Other liver diseases (9 sources) Alkaline phosphatase raised; Translations: [Abnormal levels of other serum enzymes] Onset: 08-10-2020 Resolved: 08-10-2020 08-10-2020 Episodic Other lower respiratory disease (10 sources) Elevated diaphragm; Translations: [Disorders of diaphragm] Onset: 03-04-2021 Episodic Other lower respiratory disease (9 sources) Restrictive lung disease; Translations: [Other disorders of lung] Onset: 11-12-2022 Resolved: 01-08-2023 11-12-2022 Episodic Other lower respiratory disease (2 sources) Other disorders of lung; Translations: [Other disorders of lung] Onset: 01-08-2023 Episodic Other lower respiratory disease (1 source) Shortness of breath; Translations: [Shortness of breath] Onset: 08-04-2022 Episodic Other lower respiratory disease (1 source) Chest pain on breathing; Translations: [Chest pain on breathing] Onset: 08-04-2022 Episodic Other nervous system disorders (20 sources) Abnormal gait; Translations: [Unspecified abnormalities of gait and mobility] Onset: 08-04-2014 08-04-2014 Episodic Other non-traumatic joint disorders (9 sources) Bilateral wrist pain; Translations: [Pain in right wrist] Onset: 05-16-2019 05-16-2019 Episodic Other non-traumatic joint disorders (8 sources) Bilateral chronic pain of upper limbs; Translations: [Pain in right shoulder] Onset: 05-16-2019 05-16-2019 Episodic Other non-traumatic joint disorders (2 sources) Pain in left hip; Translations: [Left hip pain] Onset: 11-10-2022 Episodic Other nutritional; endocrine; and metabolic disorders (9 sources) Hypoalbuminemia; Translations: [Other disorders of plasma-protein metabolism, not elsewhere classified] Onset: 08-10-2020 Resolved: 09-29-2022 08-10-2020 Chronic Other screening for suspected conditions (not mental disorders or infectious disease) (20 sources) Other specified abnormal findings of blood chemistry; Translations: [Other abnormal blood chemistry] Onset: 08-10-2020 Resolved: 05-21-2022 08-10-2020 Episodic Other skin disorders (1 source) Corns and callosities; Translations: [[place]] Onset: 06-09-2022 Episodic Pneumonia (except that caused by tuberculosis or sexually transmitted disease) (5 sources) Infective pneumonia; Translations: [Pneumonia, unspecified organism] Onset: 07-17-2022 Episodic Residual codes; unclassified (9 sources) Patient noncompliance - general; Translations: [Patient's noncompliance with other medical treatment and regimen] Onset: 08-10-2020 08-10-2020 Episodic Residual codes; unclassified (9 sources) Noncompliance with treatment; Translations: [Patient's noncompliance with other medical treatment and regimen] Onset: 08-10-2020 08-10-2020 Episodic Residual codes; unclassified (20 sources) Insomnia; Translations: [Insomnia, unspecified] Onset: 08-09-2015 08-09-2015 Episodic Residual codes; unclassified (1 source) Localized edema; Translations: [Bilateral edema of lower extremity] Onset: 06-09-2022 Episodic Spondylosis; intervertebral disc disorders; other back problems (20 sources) Backache; Translations: [Neck pain] Onset: 08-04-2014 05-16-2019 Episodic Unclassified (2 sources) Onset: 01-08-2023 01-08-2023 Unclassified (1 source) Acidosis, unspecified; Translations: [Acidosis, unspecified] Onset: 09-29-2022 Results Test Name Value Interpretation Reference Range Facil ity Vital Signs Date Time Vital Sign Value Performing Clinician Facility 02-23-2023 13:57-0500 Body height 154.9 cm Juan Grajeda MD Work Phone: [facility] 02-23-2023 13:57-0500 Body temperature 97.9 [degF] Juan Grajeda MD Work Phone: [facility] 02-23-2023 13:57-0500 Body weight 84.82 kg Juan Grajeda MD Work Phone: [facility] 02-23-2023 13:57-0500 Diastolic blood pressure 76 mm[Hg] Juan Grajeda MD Work Phone: [facility] 02-23-2023 13:57-0500 Heart rate 67 /min Juan Grajeda MD Work Phone: [facility] 02-23-2023 13:57-0500 Systolic blood pressure 134 mm[Hg] Juan Grajeda MD Work Phone: [facility] 02-02-2023 09:47-0400 Body height 160 cm Clinton Farrar Jr., DO Work Phone: [facility] 02-02-2023 09:47-0400 Body mass index (BMI) [Ratio] 32.41 kg/m2 Clinton Farrar Jr., DO Work Phone: [facility] 02-02-2023 09:47-0400 Body temperature 97.9 [degF] Clinton [facility]ar Jr., DO [facility] 02-02-2023 09:47-0400 Body weight 83 kg Clinton [facility]arrar Jr., DO [facility] 02-02-2023 09:47-0400 Diastolic blood pressure 62 mm[Hg] Clinton Farrar Jr., DO Work Phone: [facility] 02-02-2023 09:47-0400 Heart rate 62 /min Clinton Farrar Jr., DO Work Phone: [facility] [facility] 02-02-2023 09:47-0400 SaO2% (BldA) [Mass fraction] 97 % Clinton Farrar Jr., DO Work Phone: [facility] 02-02-2023 09:47-0400 Systolic blood pressure 100 mm[Hg] Clinton Farrar Jr., DO Work Phone: [facility] 01-08-2023 13:30-0400 Body height 160 cm Ivan Quan MD Work Phone: [facility] 01-08-2023 13:30-0400 Body mass index (BMI) [Ratio] 32.42 kg/m2 Ivan Quan MD Work Phone: [facility] 01-08-2023 13:30-0400 Body weight 83.01 kg Ivan Quan MD Work Phone: [facility] 01-08-2023 13:30-0400 Diastolic blood pressure 78 mm[Hg] Ivan Quan MD Work Phone: [facility] 01-08-2023 13:30-0400 Heart rate 67 /min Ivan Quan MD Work Phone: [facility] 01-08-2023 13:30-0400 Respiratory rate 18 /min Ivan Quan MD Work Phone: [facility] 01-08-2023 13:30-0400 SaO2% (BldA) [Mass fraction] 98 % Ivan Quan MD Work Phone: [facility] 01-08-2023 13:30-0400 Systolic blood pressure 122 mm[Hg] Ivan Quan MD Work Phone: [facility] 01-05-2023 10:44-0400 Body weight 85.73 kg Sultana Older [employer]IPPER ATT[employer]ER Work Phone: [facility] 01-05-2023 10:44-0400 Diastolic blood pressure 68 mm[Hg] Sultana Older [employer]GRIPPER ATT[employer]ER Work Phone: [facility] 01-05-2023 10:44-0400 Heart rate 64 /min Sultana Older [employer]GRIPPER ATTACHER Work Phone: [facility] 01-05-2023 10:44-0400 Respiratory rate 16 /min Sultana Older [employer]GRIPPER ATTACHER Work Phone: [facility] 01-05-2023 10:44-0400 SaO2% (BldA) [Mass fraction] 98 % Sultana Older [employer]GRIPPER ATTACHER Work Phone: [facility] 01-05-2023 10:44-0400 Systolic blood pressure 128 mm[Hg] Sultana Older [employer]GRIPPER ATTACHER Work Phone: [facility] 11-24-2022 07:17-0400 Body temperature 97.81 [degF] Sultana Older [employer]GRIPPER ATTACHER Work Phone: [facility] 11-24-2022 07:17-0400 Body weight 86.64 kg Sultana Older [employer]GRIPPER ATTACHER Work Phone: [facility] 11-24-2022 07:17-0400 Diastolic blood pressure 78 mm[Hg] Sultana Older [employer]GRIPPER ATTACHER Work Phone: [facility] 11-24-2022 07:17-0400 Heart rate 64 /min Sultaan Older [employer]GRIPPER ATTACHER Work Phone: [facility] 11-24-2022 07:17-0400 Respiratory rate 16 /min Sultana Older [employer]GRIPPER ATT[employer]ER Work Phone: [facility] 11-24-2022 07:17-0400 SaO2% (BldA) [Mass fraction] 98 % Sultana Older [employer]GRIPPER ATTACHER Work Phone: [facility] 11-24-2022 07:17-0400 Systolic blood pressure 132 mm[Hg] Sultana Older [employer]IPPER ATT[employer]ER Work Phone: [facility] 11-12-2022 14:04-0400 Body height 160 cm Ivan Quan MD Work Phone: [facility] 11-12-2022 14:04-0400 Body mass index (BMI) [Ratio] 35.96 kg/m2 Ivan Quan MD Work Phone: [facility] 11-12-2022 14:04-0400 Body weight 92.08 kg Ivan Quan MD Work Phone: [facility] 11-12-2022 14:04-0400 Diastolic blood pressure 82 mm[Hg] Ivan Quan MD Work Phone: [facility] 11-12-2022 14:04-0400 Heart rate 82 /min Ivan Quan MD Work Phone: [facility] 11-12-2022 14:04-0400 Respiratory rate 15 /min Ivan Quan MD Work Phone: [facility] 11-12-2022 14:04-0400 SaO2% (BldA) [Mass fraction] 97 % Ivan Quan MD Work Phone: [facility] 11-12-2022 14:04-0400 Systolic blood pressure 138 mm[Hg] Ivan Quan MD Work Phone: [facility] 09-29-2022 11:42-0400 Body height 160 cm Clinton Farrar Jr., DO Work Phone: [facility] 09-29-2022 11:42-0400 Body mass index (BMI) [Ratio] 35.97 kg/m2 Clinton Farrar Jr., DO Work Phone: [facility] 09-29-2022 11:42-0400 Body temperature 98.71 [degF] Clinton Farrar Jr., DO Work Phone: [facility] 09-29-2022 11:42-0400 Body weight 92.1 kg Clinton Farrar JrFaisal, DO Work Phone: [facility] 09-29-2022 11:42-0400 Diastolic blood pressure 98 mm[Hg] Clinton Farrar Jr., DO Work Phone: [facility] 09-29-2022 11:42-0400 Systolic blood pressure 138 mm[Hg] Clinton Farrar Jr., DO Work Phone: [facility] 09-18-2022 10:23-0400 Body height 158 cm Darryn Anderson MD Work Phone: [facility] 09-18-2022 10:23-0400 Body weight 84.82 kg Darryn Anderson MD Work Phone: [facility] 09-18-2022 10:23-0400 Diastolic blood pressure 72 mm[Hg] Darryn Anderson MD Work Phone: [facility] 09-18-2022 10:23-0400 Heart rate 64 /min Darryn Anderson MD Work Phone: [facility] 09-18-2022 10:23-0400 Respiratory rate 18 /min Darryn Anderson MD Work Phone: [facility] 06-01-2023 10:23-0400 Systolic blood pressure 132 mm[Hg] Darryn Anderson MD Work Phone: [facility] 08-04-2022 12:41-0400 Body temperature 98.1 [degF] Sultana Older [employer]GRIPPER ATTACHER Work Phone: [facility] 08-04-2022 12:41-0400 Body weight 86.64 kg Sultana Older [employer]GRIPPER ATTACHER Work Phone: [facility] 08-04-2022 12:41-0400 Diastolic blood pressure 86 mm[Hg] Sultana Older [employer]GRIPPER ATTACHER Work Phone: [facility] 08-04-2022 12:41-0400 Heart rate 94 /min Sultana Older [employer]GRIPPER ATTACHER Work Phone: [facility] 08-04-2022 12:41-0400 Respiratory rate 16 /min Sultana Older [employer]GRIPPER ATTACHER Work Phone: [facility] 08-04-2022 12:41-0400 SaO2% (BldA) [Mass fraction] 94 % Sultana Older [employer]GRIPPER ATTACHER Work Phone: [facility] 08-04-2022 12:41-0400 Systolic blood pressure 136 mm[Hg] Sultana Older [employer]GRIPPER ATTACHER Work Phone: [facility] 07-21-2022 11:43-0400 Diastolic blood pressure 76 mm[Hg] Sultana Older [employer]GRIPPER ATT[employer]ER Work Phone: [facility] 07-21-2022 11:43-0400 Systolic blood pressure 138 mm[Hg] Sultana Older [employer]GRIPPER ATTACHER Work Phone: [facility] 07-17-2022 07:56-0400 Body temperature 98.2 [degF] Sultana Older [employer]GRIPPER ATTACHER Work Phone: [facility] 07-17-2022 07:56-0400 Body weight 90.72 kg Sultana Older [employer]GRIPPER ATTACHER Work Phone: [facility] 07-17-2022 07:56-0400 Diastolic blood pressure 72 mm[Hg] Sultana Older [employer]GRIPPER ATTACHER Work Phone: [facility] 07-17-2022 07:56-0400 Heart rate 78 /min Sultana Older [employer]GRIPPER ATTACHER Work Phone: [facility] 07-17-2022 07:56-0400 Respiratory rate 16 /min Sultana Older [employer]GRIPPER ATTACHER Work Phone: [facility] 07-17-2022 07:56-0400 SaO2% (BldA) [Mass fraction] 92 % Sultana Older [employer]GRIPPER ATTACHER Work Phone: [facility] 07-17-2022 07:56-0400 Systolic blood pressure 152 mm[Hg] Sultana Older [employer]GRIPPER ATT[employer]ER Work Phone: [facility] 06-09-2022 11:15-0500 Body temperature 98.1 [degF] Sultana Older [employer]GRIPPER ATT[employer]ER Work Phone: [facility] 06-09-2022 11:15-0500 Body weight 90.27 kg Sultana Older [employer]GRIPPER ATTACHER Work Phone: [facility] 06-09-2022 11:15-0500 Diastolic blood pressure 78 mm[Hg] Sultana Older [employer]GRIPPER ATT[employer]ER Work Phone: [facility] 06-09-2022 11:15-0500 Heart rate 74 /min Sultana Older [employer]GRIPPER ATTACHER Work Phone: [facility] 06-09-2022 11:15-0500 Respiratory rate 16 /min Sultana Older [employer]GRIPPER ATT[employer]ER Work Phone: [facility] 06-09-2022 11:15-0500 SaO2% (BldA) [Mass fraction] 98 % Sultana Older [employer]GRIPPER ATTACHER Work Phone: [facility] 06-09-2022 11:15-0500 Systolic blood pressure 132 mm[Hg] Sultana Older [employer]GRIPPER ATTACHER Work Phone: [facility] 11-05-2021 09:12-0400 Body height 154.9 cm Manuela Thomas [employer]GRIPPER ATTACHER Work Phone: [facility] 11-05-2021 09:12-0400 Body weight 91.63 kg Manuela Thomas [employer]GRIPPER ATTACHER Work Phone: [facility] 11-05-2021 09:12-0400 Diastolic blood pressure 70 mm[Hg] Manuela Thomas [employer]IPPER ATT[employer]ER Work Phone: [facility] 11-05-2021 09:12-0400 Heart rate 72 /min Manuela Thomas [employer]GRIPPER ATT[employer]ER Work Phone: [facility] 11-05-2021 09:12-0400 Respiratory rate 18 /min Manuela Thomas [employer]GRIPPER ATTACHER Work Phone: [facility] 11-05-2021 09:12-0400 Systolic blood pressure 120 mm[Hg] Manuela Thomas [employer]GRIPPER ATT[employer]ER Work Phone: [facility] 10-24-2021 08:25-0400 Diastolic blood pressure 76 mm[Hg] Sultana Older [employer]GRIPPER ATT[employer]ER Work Phone: [facility] 10-24-2021 08:25-0400 Heart rate 68 /min Sultana Older [employer]GRIPPER ATTACHER Work Phone: [facility] 10-24-2021 08:25-0400 Systolic blood pressure 134 mm[Hg] Sultana Older [employer]GRIPPER ATTACHER Work Phone: [facility] 09-26-2021 13:44-0400 Diastolic blood pressure 86 mm[Hg] Sultana Older [employer]GRIPPER ATTACHER Work Phone: [facility] 09-26-2021 13:44-0400 Heart rate 72 /min Sultana Older [employer]GRIPPER ATTACHER Work Phone: [facility] 09-26-2021 13:44-0400 Respiratory rate 16 /min Sultana Older [employer].GRIPPER ATTACHER Work Phone: [facility] 09-26-2021 13:44-0400 Systolic blood pressure 134 mm[Hg] Sultana Older [employer]GRIPPER ATTACHER Work Phone: [facility] 03-04-2021 09:39-0500 Body height 160 cm Clinton Farrar Jr., DO Work Phone: [facility] 03-04-2021 09:39-0500 Body mass index (BMI) [Ratio] 35.96 kg/m2 Clinton Farrar Jr., DO Work Phone: [facility] 03-04-2021 09:39-0500 Body weight 92.08 kg Clinton Farrar Jr., DO Work Phone: [facility] 03-04-2021 09:39-0500 Diastolic blood pressure 84 mm[Hg] Clinton Farrar Jr., DO Work Phone: [facility] 03-04-2021 09:39-0500 Heart rate 77 /min Clinton Farrar Jr., DO Work Phone: [facility] 03-04-2021 09:39-0500 SaO2% (BldA) [Mass fraction] 97 % Clinton Farrar Jr., DO Work Phone: [facility] 03-04-2021 09:39-0500 Systolic blood pressure 132 mm[Hg] Clinton Farrar Jr., DO Work Phone: [facility] 05-16-2019 10:39-0500 Body Temperature 97 [degF] [facility] 05-16-2019 10:39-0500 BP Diastolic 76 mm[Hg] [facility] 05-16-2019 10:39-0500 BP Systolic 126 mm[Hg] [facility] 05-16-2019 10:39-0500 Pulse (Heart Rate) 64 /min [facility] 05-16-2019 10:39-0500 Pulse Oximetry 95 % [facility] Encounters Encounter Date Encounter Type Care Provider Facility Start: 08-10-2023 ambulatory DARRYN Castro [facility] Start: 04-15-2023 End: 04-16-2023 ambulatory [facility] Facility:[facility] Start: 04-06-2023 End: 04-06-2023 [facility] Facility:[facility] Start: 03-17-2023 End: 03-17-2023 ambulatory JUAN GRAJEDA Facility:[facility] Start: 03-17-2023 End: 03-17-2023 Subsequent hospital visit by physician Bone Density [facility] Work Phone: Radiology Procedures Date Procedure Procedure Detail Performing Clinician Start: 03-17-2023 Dxa bone density harpreet dy 1/> sites axial skel Juan Grajeda MD Work Phone: Start: 12-04-2022 Echo tthrc r-t 2d w/wom-mode compl spec&colr d Ivan Momin MD Work Phone: Start: 12-04-2022 Ct thorax w/o contra st material Ivan Momin MD Work Phone: Start: 12-04-2022 PFT COMPLETE Ivan Momin MD Work Phone: Start: 12-04-2022 Pulmonary stress testing Ivan Momin MD Work Phone: Start: 10-27-2022 Screening mammograph y bi 2-view breast inc cad Vida Pitt PA-C Work Phone: Start: 08-06-2022 Ct thorax w/contrast material Sultana Harvey [employer]PER ATT[employer]ER Work Phone: Start: 06-09-2022 Urnls dip stick/tabl et reagent auto microscopy Sultana Older [employer]GRIPPER ATTACHER Work Phone: Start: 06-09-2022 Urnls dip stick/tabl et rgnt auto w/o microscopy Sultana Older [employer]GRIPPER ATTACHER Work Phone: Start: 06-09-2022 Hemoglobin A1c/Hemoglobin.total in Blood Sultana Older [employer]GRIPPER ATTACHER Work Phone: Start: 10-22-2021 Screening mammograph y bi 2-view breast inc cad Sultana Older [employer]GRIPPER ATTACHER Work Phone: Start: 09-10-2020 Mammography Vicente west [employer]GRIPPER ATTACHER Work Phone: Start: 08-10-2020 End: 03-04-2021 Laboratory test result abnormal Abnormal serum STEFFANY level Clinton Farrar Jr., DO Work Phone: Start: 11-10-2018 Royce west APRN.GRIPPER ATTACHER Work Phone: Plan of Treatment Date Care Activity Detail Author Start: 07-31-2031 Tetanus vaccination TETANUS [facility] Start: 07-31-2031 Urine microalbumin profile DTa P,Tdap,Td Vaccine (3 - Td or Tdap) [facility] Start: 01-10-2024 Covid-19 Vaccine ( season) Covid-19 Vaccine ( season) [facility] Immunizations Immunization Date Immunization Notes Care Provider Ethan horan 12-12-2022 influenza (aIIV4) vaccine, age 65+ yr, quadrivalent, PF (FLUAD QUAD) Sultana Harvey APRN.GRIPPER ATTACHER Work Phone: [facility] 01-03-2022 influenza virus vacc ine, unspecified formulation Ivan Quan MD Work Phone: [facility] 01-13-2021 COVID-19 vaccine, ag e 12+ yr ([employer] - PURPLE TOP) Vicente Mcgrath APRN.GRIPPER ATTACHER Work Phone: [facility] 12-29-2020 influenza, high dose seasonal, preservative-free Vicente Mcgrath APRN.GRIPPER ATTACHER Work Phone: [facility] Work Phone: 12-29-2020 influenza, high-dose , quadrivalent vaccine (FLUZONE HIGH DOSE QUADRIVALENT) Vicente Mcgrath APRN.GRIPPER ATTACHER Work Phone: [facility] 12-23-2019 influenza, injectabl e, quadrivalent, preservative free Vicente Mcgrath APRN.GRIPPER ATTACHER Work Phone: [facility] 09-15-2019 zoster vaccine recombinant Vicente Mcgrath APRN.GRIPPER ATTACHER Work Phone: [facility] 02-14-2019 zoster vaccine recombinant Vicente Mcgrath APRN.GRIPPER ATTACHER Work Phone: [facility] 01-13-2019 influenza, injectabl e, quadrivalent, preservative free Vicente Alcides [employer]GRIPPER ATTACHER Work Phone: [facility] 12-19-2018 influenza, seasonal, injectable, preservative free Vicente Alcides [employer]GRIPPER ATTACHER Work Phone: [facility] 02-04-2018 influenza, injectabl e, quadrivalent, preservative free Vicente Alcides [employer].GRIPPER ATTACHER Work Phone: [facility] 09-22-2017 pneumococcal polysaccharide vaccine, 23 valent Vicente Alcides [employer]GRIPPER ATTACHER Work Phone: [facility] 12-23-2016 influenza, high dose seasonal, preservative-free Vicente Alcides [employer].GRIPPER ATTACHER Work Phone: [facility] 02-27-2016 influenza, high dose seasonal, preservative-free Vicente Alcides [employer].GRIPPER ATTACHER Work Phone: [facility] 02-27-2016 pneumococcal conjuga te vaccine, 13 valent Vicente Alcides [employer].GRIPPER ATTACHER Work Phone: [facility] 02-17-2016 pneumococcal polysaccharide vaccine, 23 valent Vicente Alcides [employer] Work Phone: [facility] Work Phone: 03-30-2015 pneumococcal conjuga te vaccine, 13 valent Vicente Alcides [employer] Work Phone: [facility] Work Phone: 01-29-2015 influenza, high dose seasonal, preservative-free Vicente Alcides [employer].GRIPPER ATTACHER Work Phone: [facility] 01-29-2015 pneumococcal conjuga te vaccine, 13 valent Vicente Alcides [employer].GRIPPER ATTACHER Work Phone: [facility] 01-18-2015 influenza, seasonal, injectable, preservative free Vicente Alcides [employer].GRIPPER ATTACHER Work Phone: [facility] 01-18-2015 pneumococcal conjuga te vaccine, 13 valent Vicente Alcides [employer].GRIPPER ATTACHER Work Phone: [facility] 01-15-2012 tetanus toxoid, redu winnie diphtheria toxoid, and acellular pertussis vaccine, adsorbed Vicente Mcgrath APRN.[facility] Work Phone: [facility] Work Phone: 01-10-2012 influenza, seasonal, injectable, preservative free Vicente Mcgrath APRN.[facility] Work Phone: [facility] 04-20-2011 pneumococcal polysaccharide vaccine, 23 valent Vicente Mcgrath [employer] Work Phone: [facility] 02-06-2011 influenza virus vacc ine, unspecified formulation Vicente Mcgrath [employer].[facility] Work Phone: [facility] Work Phone: 11-14-2009 zoster vaccine, live Vicente potts APRN.[facility] Work Phone: [facility] 02-21-2009 novel influenza-H1N1 -09, preservative-free, injectable Vicente Mcgrath APRN.[facility] Work Phone: [facility] 01-15-2009 influenza virus vacc ine, unspecified formulation Vicente Mcgrath APRN.[facility] Work Phone: [facility] Work Phone: 02-08-2008 influenza virus vacc ine, unspecified formulation Vicente Mcgrath APRN.[facility] Work Phone: [facility] Work Phone: 03-23-2006 pneumococcal polysaccharide vaccine, 23 valent Vicente Mcgrath APRN.[facility] Work Phone: [facility] Work Phone: 02-09-2006 influenza virus vacc ine, unspecified formulation Vicente Mcgrath [employer].[facility] Work Phone: [facility] Work Phone: 01-19-2004 influenza virus vacc ine, unspecified formulation Vicente Mcgrath APRN.[facility] Work Phone: [facility] 01-19-2004 tetanus and diphther ia toxoids, not adsorbed, for adult use Vicente Mcgrath APRN.[facility] Work Phone: [facility] 11-18-1998 pneumococcal polysaccharide vaccine, 23 valent Vicente Mcgrath APRN.[employer] Work Phone: [facility] Payers Date Payer Category Payer Unknown LEONEL CASTANEDA O PPO POS xxxxxxxxx 2019-Present xxxxxxxxx [id number] 2019 Medicare MEDICARE MEDICAR E A AND B xxxxxxxxxxx 2019-Present [place], [place] xxxxxxxxxxx [id number] 2010 Unknown [id number] 2010 Unknown [id number] 2010 Unknown [id number] 2010 Medicare [id number] 2010 Medicare [id number] .[id number] 2010 Medicare [id number] 1946 Unknown [id number] 1946 Unknown [id number] 1946 Unknown [id number] 1946 Unknown [id number] 1946 Unknown [id number] 1946 Unknown [id number] 1946 Unknown [id number] 1946 Unknown [id number] 1946 Unknown [id number] 1946 Unknown [id number] 1946 Unknown [id number] 1946 Unknown [id number] Social History Date Type Detail Facility Start: 09-25-2010 End: 05-16-2019 Tobacco smoking status NHIS Never smoker [facility] Start: 05-16-2019 End: 02-02-2023 Alcohol intake Lifetime non-drinker (finding) [facility] Start: 05-16-2019 End: 06-04-2022 History SDOH Alcohol Frequency 1 [facility] Start: 1945 Sex Assigned At Not on file [facility] Start: 09-25-2010 End: 05-16-2019 Tobacco use and exposure Smokeless tobacco non-user [facility] Start: 05-21-2021 End: 01-09-2023 Alcohol intake Current non-drinker of alcohol (finding) [facility] Start: 10-05-2019 End: 06-04-2022 History SDOH Alcohol Std Drinks 98 [facility] Start: 03-19-2020 History SDOH Social Connections Phone 5 [facility] Start: 10-05-2019 End: 06-04-2022 History SDOH Social Connections Membership 2 [facility] Start: 10-05-2019 End: 06-04-2022 History SDOH Social Connections Living 3 [facility] Start: 03-19-2020 End: 06-04-2022 History SDOH Physical Activity DPW 0 [facility] Start: 03-19-2020 End: 06-04-2022 History SDOH Financial 4 [facility] Start: 03-19-2020 Education 21 [facility] Start: 1945 Sex Assigned At Female [facility] Start: 09-10-2021 End: 12-30-2021 Exposure to SARS-CoV-2 (event) Not sure [facility] Start: 09-13-2021 End: 10-24-2021 Exposure to SARS-CoV-2 (event) Unable to assess [facility] Start: 05-16-2019 End: 09-18-2022 [facility] Start: 05-16-2019 End: 09-18-2022 Alcohol Use Disorder Identification Test - Consumption [AUDIT-C] [facility] Frequency of Alcohol Consumption Never [facility] Do you belong to any clubs or organizations such as scientology groups, unions, fralink bird or athletic groups, or school groups? No [facility] Are you now , , , , never or living with a partner? [facility] How often to you hav e a drink containing alcohol? Never [facility] How hard is it for y ou to pay for the very basics like food, housing, medical care, and heating Somewhat hard [facility] Do you feel stress - tense, restless, nervous, or anxious, or unable to sleep at night because your mind is troubled all the time - these days [OSQ] Not at all [facility] (I/We) worried wheth er (my/our) food would run out before (I/we) got money to buy more. DK or Refused [facility] Start: 11-10-2018 Gender identity Identifies as female gender (finding) [facility] Start: 11-10-2018 Sexual orientation Heterosexual (finding) [facility] Medical Equipment Procedure Code Equipment Code Equipment Origin al Text Equipment Identifier Dates [id number] Start: 09-30-2019 End: 02-23-2023 Clinical Notes 09-29-2019 to 04-06-2023 Charly Buchanan RT(R) - 03/17/2023 9:30 AM ESTTelephone Encounter - Mia Ni LPN - 03/10/2023 8:10 AM ESTTelephone Encounter - Choco Cummins MD - 03/09/2023 6:58 PM EST Note Date & Type Note Facility 04-06-2023 Note [facility] 03-17-2023 Note [facility] 03-17-2023 History of Present illness Narrative Radiology Service Progress Note PATIENT NAME: Mckayla Russo DATE OF SERVICE: March 17, 2023 TIME: 9:41 AM PATIENT IDENTITY VERIFICATION COMPLETED USING TWO (2) IDENTIFIERS: Name and Date of confirmed by patient verbally. FALL SCREENING: Has the patient had 2 falls in the last year or 1 fall with injury or currently using an Ambulatory Assistive Device (Walker, Cane, Wheelchair, Crutches, etc.)? Yes, Patient High Risk for Falls What interventions were put in place to prevent falls during this visit? Increased Observations by Caregivers PATIENT GENDER DATA: Female. status: : No status: NO. PATIENT RELEVANT IMPLANT DATA REVIEWED: Not Applicable RADIOLOGY DEPARTMENT: Bone Density PERIPHERAL IV DATA: Not applicable SIGNED BY: RT Kelly(R) March 17, 2023 9:41 AM documented in this encounter [facility] 03-10-2023 Miscellaneous Notes Spoke with pt and information listed below given. Pt verbalizes understanding. Mia Ni LPN RSV vaccine is recommended, and should be obtained from her pharmacy. Pt called to see if she is to get the RSV vaccine. Declined apt int he office to discuss. Reports Sultana knows what all she has going on. Pt will need to be instructed to get at the pharmacy. Mia Ni LPN documented in this encounter [facility] 03-04-2023 Miscellaneous Notes Patient has been identified by name and date of : No Patient phones for refill(s): Requested Prescriptions Pending Prescriptions Disp Refills hydrOXYchloroQUINE (PLAQUENIL) 200 mg tablet [Pharmacy Med Name: HYDROXYCHLOROQUINE 200 MG TAB] 180 tablet 1 Sig: take 1 tablet by mouth twice a day Date of last office visit in primary care: 01/05/2023 Date of next office visit in primary care: 04/06/2023 Last 2 Encounter Wt Readings: Date: Wt: 02/23/2023 84.8 kg (187 lb) 01/05/2023 85.7 kg (189 lb) Previous labs/tests for medication: Not applicable Please advise. Thank you. Rylee Wheat. documented in this encounter [facility] 02-23-2023 Note [facility] 02-23-2023 Miscellaneous Notes Phone and spoke with Vida (nurse) at Dr. Yann Garcia DO at [facility]. . Verified that this was the correct office and fax number . Faxed paperwork as requested. Fax confirmation received. Wally Haynes R.N. documented in this encounter [facility] 02-23-2023 Instructions Juan Grajeda MD - 02/23/2023 2:48 PM EST Please ensure that you are taking adequate calcium and vitamin D through your diet, and supplement as needed with lohk-kas-jwvkvwh tablets. You should be getting a total of calcium 1000mg daily and vitamin D 800-1000 international units daily through diet and supplements. Foods and drinks with calcium Food Calcium in milligrams Milk (skim, 2%, or whole; 8 oz [240 mL]) 300 Yogurt (6 oz [168 g]) 250 [place] juice (with calcium; 8 oz [240 mL]) 300 Tofu with calcium (0.5 cup [113 g]) 435 Cheese (1 oz [28 g]) 195 to 335 (hard cheese = higher calcium) Cottage cheese (0.5 cup [113 g]) 130 Ice cream or frozen yogurt (0.5 cup [113 g]) 100 Soy milk (8 oz [240 mL]) 300 Beans (0.5 cup cooked [113 g]) 60 to 80 Dark, leafy green vegetables (0.5 cup cooked [113 g]) 50 to 135 Almonds (24 whole) 70 [place] (1 medium) 60 Selected food sources of vitamin D[1] Food Amount per serving In international units (IU) In micrograms Cod liver oil, 1 tablespoon (15 mL) 1360 34 [place] (sockeye), cooked, 3 ounces (85 g) 380 to 570* 9.5 to 14* Mushrooms that have been exposed to ultraviolet light to increase vitamin D, 3 ounces (85 g) (not yet commonly available) 889 22.3 Mackerel, cooked, 3 ounces (85 g) 388 9.7 Tuna fish, canned in water, drained, 3 ounces (85 g) 40 to 68 1 to 2 Milk, nonfat, reduced fat, and whole, vitamin D-fortified, 8 ounces (240 mL) 100 2.5 [place] juice fortified with vitamin D, 8 ounces (240 mL) (check product labels, as amount of added vitamin D varies) 100 2.5 Yogurt, fortified with vitamin D, 6 ounces (180 mL) (more heavily fortified yogurts provide more of the DV) 80 2 Margarine, fortified, 1 tablespoon (15 g) 60 1.5 Sardines, canned in oil, drained, 2 sardines 46 1 Liver, beef, cooked, 3.5 ounces (100 g) 46 1 Oimqm-jv-tlk cereal, fortified with vitamin D, 6 to 8 ounces (227 g) (more heavily fortified cereals might provide more of the DV) 40 1 Egg, 1 whole (vitamin D is found in yolk) 25 0.6 Cheese, Qatari, 1 ounce (29 g) 6 0 In the [place], reference values are listed on food labels as a percentage of DVs (%DV), based on a 2000 calorie daily energy intake. DV: daily value; %: percent. * Vitamin D content of fish varies substantially even within species. Wild salmon tends to have higher vitamin D content than farmed salmon. Reference: US Department of Agriculture, Agricultural Research Service. USDA Nutrient Database for Standard Reference, Release 2017. documented in this encounter [facility] 02-23-2023 History of Present illness Narrative On 02/23/2023, I had the pleasure of seeing Mckayla Russo at the [facility]. Mckayla Russo was referred by Sultana Harvey for an opinion and advice regarding seropositive RA. My findings and final recommendations will be communicated to the requesting health care provider by way of the shared medical record for internal providers or letter via the [employer] for external providers. Chief complaint: Seropositive RA HPI: To review, Mckayla Russo is a 77 year old female *Re: BMD - Around ', broke L wrist after slipping on ice and falling down a sloped ground - Around , broke R foot after foot got stuck under a door jam and she turned to go somewhere, didn't realize foot was stuck and she fell backwards while foot was still stuck underneath - From August-Mar, on fosamax - From September-July, on boniva - No interim fx *Re: RA - Around , diagnosed with RA by Dr. Harrington after presenting with hand and feet pain (doesn't recall the exact knuckles affected). On prednisone for a while. Eventually started on HCQ - In Feb-July, on humira - From June-Jan, on MTX (stopped due to elevated LFTs) - From August-Feb, on enbrel (ineffective) - In , had CVA with significant improvement in joint pain thereafter. - In Dec, on simponi (ineffective) - From Jan-Mar, on humira (ineffective) - In Mar, started on orencia SC (ineffective) - With back pain x10 yrs. Sees pain clinic and undergoes SI joint injections every 3 months. - Had significant joint pain improvement after the strokes - In October, reported some mild intermittent cramping of the certain PIPs that hasn't gone on for very long - In spring, decreased HCQ to one daily per Dr. Clinton Farrar - In July, diagnosed with ILD. Sees Dr. Garcia in [place] for pulmonary - In Nov, advised to stop HCQ completely per drying supervisor as he didn't think she had RA - In Dec, was told by catering assistant to continue HCQ, to never stop it. - In Jan, advised to resume HCQ once daily per drying supervisor (but didn't say why). - Today, reports that hands had become swollen off HCQ. Has been on HCQ for less than a month now, hasn't kicked back in yet. - With a cough and BRIGHT from ILD. - Last plaquenil eye exam normal around July or August PAST MEDICAL HISTORY Diagnosis Date Abnormal mammogram, unspecified left breast BPPV (benign paroxysmal positional vertigo) 02/11/2015 BPV (benign positional vertigo) CAD (coronary artery disease) Carotid stenosis CARPAL TUNNEL BILATERRAL 08/08/2005 Coronary artery disease involving bad river band coronary artery Dr. Pederson follows regularly; S/P PTCA and stenting at [facility] [place], 2000 Coronary atherosclerosis of unspecified type of vessel, bad river band or graft Disorder of bone and cartilage, unspecified Diverticulosis of colon (without mention of hemorrhage) DKA (diabetic ketoacidoses) 09/28/2019 Esophagitis External hemorrhoids without mention of 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 Insomnia Internal hemorrhoids without mention of 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 Mammographic microcalcification Mild intermittent asthma without 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 Adult onset Mild nonproliferative diabetic retinopathy of both eyes ([facility]) 12/06/2018 Other and unspecified hyperlipidemia Other forms of migraine Other psoriasis Postsurgical percutaneous transluminal coronary angioplasty status Rheumatoid arthritis(714.0) RLS (restless legs syndrome) 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 Thoracic or lumbosacral neuritis or radiculitis, unspecified 03/01/2012 Type I (juvenile type) diabetes mellitus with neurological manifestations, not stated as 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.61) 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, 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) Unspecified asthma(493.90) Unspecified essential hypertension Unspecified hereditary and idiopathic peripheral neuropathy PAST SURGICAL HISTORY Procedure Laterality Date BREAST BIOPSY COLONOSCOPY FLX DX W/COLLJ SPEC WHEN PFRMD 02/26/2204 Colonoscopy COLONOSCOPY FLX DX W/COLLJ SPEC WHEN PFRMD 08/29/15 Colonoscopy COLONOSCOPY FLX DX W/COLLJ SPEC WHEN PFRMD 11/10/2018 Colonoscopy EGD 04/15/2002 ESOPHAGOGASTRODUODENOSCOPY TRANSORAL DIAGNOSTIC 11/10/2018 EGD EXC BREAST LES PREOP PLMT RAD MARKER OPEN 1 LES 03/2008 OPEN REPAIR OF ROTATOR CUFF CHRONIC left rotator cuff PAST SURGICAL HISTORY OF tonsilectomy and adenoidectomy PAST SURGICAL HISTORY OF right breast lumpectomy PAST SURGICAL HISTORY OF x 3 PAST SURGICAL HISTORY OF 1992 right thumb trigger finger PAST SURGICAL HISTORY OF hand surgery PAST SURGICAL HISTORY OF nose surgery PAST SURGICAL HISTORY OF age 17 axillary cyst removal PAST SURGICAL HISTORY OF 2000 heart cath with stent placement PAST SURGICAL HISTORY OF CARDIAC CAATH 2000, 2001, AND 2004 PREOP PLACEMENT NEEDLE LOC STEREOTACTIC CORE BIOPSY 02/24/08 LEFT - benign ALLERGIES Allergen Reactions Aggrenox [Aspirin-D* MIGRAINES AND VOMITING Amitriptyline Other: See Comments Confusion, falls Cephalexin (Bulk) GI Upset Cymbalta [Duloxetin* Unknown Doxycycline GI Upset headache Duricef [Cefadroxil] Hives Ephedrine Other: See Comments tachycardia, but pt. states she still uses nose spray Ilosone [Other] Swelling tachycardia Iodine Itching itching after prolonged use Levaquin [Levofloxa* Other: See Comments Achilles tendon problem Lyrica [Pregabalin] Other: See Comments Dizziness at 225mg twice daily Nortriptyline Other: See Comments vertigo Oxycodone Mental Status Change Percocet [Oxycodone* Unknown Sulfa (Sulfonamide * Hives blisters MEDICATIONS: Current Outpatient Medications Medication Sig vmbwcwsitre-frbuprcxp-xyfaftwv (TRELEGY ELLIPTA) 200-62.5-25 mcg inhalation powder Inhale 1 Puff as instructed once daily. traZODone (DESYREL) 50 mg tablet Take 1 tablet by mouth daily at bedtime. clonazePAM (KLONOPIN) 1 mg tablet Take 1 tablet by mouth at bedtime as needed for up to 90 days. 04/03/22-Needs renewed amLODIPine (NORVASC) 5 mg tablet TAKE 1 TABLET BY MOUTH EVERY DAY WALKER ROLLATOR SEAT WITH 6 WHEELS - RED For ambulation hydrOXYchloroQUINE (PLAQUENIL) 200 mg tablet Take 1 tablet by mouth twice daily. pramipexole (MIRAPEX) 1 mg tablet Take 2 tablets by mouth daily at bedtime. montelukast (SINGULAIR) 10 mg tablet Take 1 tablet by mouth daily at bedtime. insulin lispro (HUMALOG U-100 INSULIN) 100 unit/mL injection as directed in Insulin pump up to 110 units daily. Dx E10.65 atorvastatin (LIPITOR) 40 mg tablet Take 1 tablet by mouth once daily. clopidogrel (PLAVIX) 75 mg tablet Take 1 tablet by mouth once daily. lansoprazole (PREVACID) 30 mg capsule Take 1 capsule by mouth twice daily. diphenhydrAMINE (BENADRYL) 25 mg capsule Please take 2 tablets an hour prior to the contrast procedure nitroglycerin (NITROLINGUAL) 400 mcg/spray spray one every 5 minutes x3 as needed Bacillus coagulans/inulin (PROBIOTIC WITH PREBIOTIC ORAL) Take by mouth. blood sugar diagnostic (BLOOD GLUCOSE TEST) test strip Test blood sugar(s) 6 times daily. Dx: E 10.65, Z96.41 losartan (COZAAR) 100 mg tablet Take 1 tablet by mouth once daily. hydrocortisone 2.5 % cream Apply to affected area once daily. ketoconazole (NIZORAL) 2 % shampoo aspirin 81 mg chewable tablet Take 1 tablet by mouth once daily. blood sugar diagnostic (CONTOUR TEST STRIPS) test strip Test blood sugar(s) 6 times daily. Dx: Type 1 DM - Controlled E10.9 Insulin: Yes Cholecalciferol, Vitamin D3, 125 mcg (5,000 unit) cap Take 1 capsule by mouth once daily. Biotin 1 mg tab Take 1 tablet by mouth once daily. Blood-Glucose Meter (CONTOUR METER) monitoring kit Dispense 1 kit. Dx: Type 1 DM - Controlled E10.9 Insulin Syringe-Needle U-100 (BD ULTRAFINE INSULIN) 1 mL 31 gauge x 5/16 use as directed if pump fails up to 6 times daily multivitamin tablet Take 1 tablet by mouth once daily. acetaminophen (TYLENOL 8 HOUR) 650 mg CR tablet Take 1 tablet by mouth every 8 hours as needed. No current facility-administered medications for this visit. FAMILY HISTORY Problem Relation Age of Onset Cancer Mother breast (diagnosed mid 50's) Heart Mother valvular other (Other) Father leukemia (dx'd age 55) Asthma Paternal Grandmother Diabetes Paternal Grandmother Colon Cancer Other none other (autoimmune def) Daughter SOCIAL HISTORY: Lives in [place] with spouse. 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 Son in law is a pediatric physician Tobacco use: None Alcohol use: None Drug use: None PHYSICAL EXAM: VITALS: Blood pressure 134/76, pulse 67, temperature 36.6 C (97.9 F), temperature source Oral, height 154.9 cm (5' 1 ), weight 84.8 kg (187 lb). CONSTITUTIONAL: Well-appearing, in NAD. SKIN: No rash. No sclerodactyly, calcinosis, telangiectasias, digital ulcers, or skin thickening. EYES: No scleral icterus or conjunctivitis ENT and Mouth: External ears normal. Nares normal. RESPIRATORY: Normal breath sounds, clear to auscultation. No crackles. CARDIOVASCULAR: Regular rate and rhythm, no murmurs or rubs EXTREMITIES/LYMPH: No edema bilaterally NEURO: Awake, alert and oriented, uses a walker MUSCULOSKELETAL: JOINT APPEARANCE: Subtle Heberden's nodes present bilaterally. No erythema or warmth of any upper or lower extremity joint. RANGE OF MOTION: Able to fully close fists and curl fingers bilaterally. SWOLLEN JOINTS/SYNOVITIS: No synovitis of any joint. TENDER JOINTS: Tenderness to palpation of the R 2nd/3rd-L 2nd MCPs, R 2nd-5th PIPs-L 4th PIP and knees Widespread Pain Index: 13 (0-19) Symptoms Severity Scale: 3 (0-12) WPI>7 and SS Scale>5 OR WPI 3-6 and SS Scale >9 consistent with fibromyalgia LABORATORY: Component Latest Ref Rng & Units 12/29/2022 WBC 3.70 - 11.00 k/uL 6.28 RBC 3.90 - 5.20 m/uL 3.91 Hemoglobin 11.5 - 15.5 g/dL 12.9 Platelet Count 150 - 400 k/uL 203 Calcium 8.5 - 10.2 mg/dL 9.3 Bilirubin, Total 0.2 - 1.3 mg/dL 0.5 Alkaline Phosphatase 34 - 123 U/L 100 AST 13 - 35 U/L 26 ALT 7 - 38 U/L 24 Glucose 74 - 99 mg/dL 117 (H) BUN 7 - 21 mg/dL 13 Creatinine 0.58 - 0.96 mg/dL 0.69 Sodium 136 - 144 mmol/L 141 Potassium 3.7 - 5.1 mmol/L 3.9 Chloride 97 - 105 mmol/L 107 (H) CO2 22 - 30 mmol/L 24 Anion Gap 9 - 18 mmol/L 10 eGFR >=60 mL/min/1.73m 90 *Nov neg RF, CCP, SUSI, scl70, ssa Component Latest Ref Rng & Units 06/29/2006 05/19/2019 Rheumatoid Factor <16 IU/mL 434 (H) <10 CCP Antibody, IgG <20 Units <15 Anti Neutrophil Cytoplasmic Ab, IgG <1:20 <1:20 STUDIES: *Nov TTE-mild concentric LVH. Mild diastolic dysfunction. Normal EF 65-70% *Nov CT chest-basilar and peripheral predominant mild ILD compatible with a probable UIP pattern *Apr xray wrists/hands- Mild degenerative changes are noted *Nov DXA- IMPRESSION: Osteopenia in the right hip LUMBAR SPINE: The bone mineral density from L1 through L4 is 1.092 grams per square centimeter which yields a T-score of 0.4 . This is 4.3% worse LEFT HIP: The bone mineral density of the total region of the hip is 1.014 grams per square centimeter which yields a T-score of 0.6 . . LEFT FEMORAL NECK: The bone mineral density of the femoral neck is 0.779 grams per square centimeter which yields a T-score of -0.6 . This is not significantly changed . RIGHT HIP: The bone mineral density of the total region of the hip is 0.997 grams per square centimeter which yields a T-score of 0.5 . RIGHT FEMORAL NECK: The bone mineral density of the femoral neck is 0.724 grams per square centimeter which yields a T-score of -1.1 . This is not significantly changed . 10-year Fracture Risk (FRAX): Major osteoporotic fracture risk 18 % Hip fracture risk 2.3 % *September xray L foot- no erosions, joint spaces maintained *Mar DEXA- normal IMPRESSION and PLAN: 11. Seropositive RA: Hand and foot pain in the setting of RF positivity and ILD. Has been on multiple medications: HCQ, MTX, humira, enbrel, and orencia. However, with significantly improved symptoms s/p multiple strokes. serologies unremarkable but explained hx is still c/w RA. Had been stable on HCQ but then was off for a period in , resumed once daily recently. - Explained the diagnosis in detail including the natural history of the condition, potential for joint damage and chronic joint deformities with ongoing inflammation, and extraarticular manifestations such as premature heart disease. Provided written information on condition for review - Increase to HCQ 200mg bid. Potential side effects were explained, including retinal toxicity leading to blindness. Advised that routine ophthalmology follow-up at least annually thereafter (last normal in spring). Literature about Plaquenil was provided for review. - Advised no further tx is needed at this time from the joint perspective but to let us know if the catering assistant feels like additional tx is needed from the ILD standpoint so that we can provide input as needed - Continue pulmonary management of ILD 2. History of osteopenia: Multiple remote fractures, not clearly fragility fractures per history. Remote use of fosamax '- per the medication list although she doesn't recall this. DEXA with normal BMD, Nov DXA with osteopenia - Continue calcium and vitamin D supplementation - Check vitamin D level. Notify of results via [employer] - Check DEXA. Notify of results via [employer] 3. General health maintenance: - Advised to continue follow-up with PCP for routine health maintenance and malignancy screening Follow-up in 5, 10 & 20 months with Maury and 15 months with . Thank you for allowing me to participate in the care of your patient. Juan Grajeda MD I spent a total of 65 minutes on the date of the service which included preparing to see the patient, [id number] patient care, completing clinical documentation, obtaining and/or reviewing separately obtained history, performing a medically appropriate examination, counseling and educating the patient/family/caregiver, ordering medications, tests, or procedures, independently interpreting results (not separately reported), and communicating results to the patient/family/caregiver. documented in this encounter [facility] 02-02-2023 History of Present illness Narrative Images from the original note were not included. Subjective History of Present Illness Presence of Pain: complains of pain/discomfort Select Pain Scale: DVPRS (Defense and Veterans Pain Rating Scale) (Adult-Cognitively Intact) DVPRS: Rest: 8- severe pain Select Pain Scale: DVPRS (Defense and Veterans Pain Rating Scale) (Adult-Cognitively Intact). Total time spent in this encounter was 27 minutes. Patient is being evaluated for an unstable chronic illness that increase morbidity and mortality. All questions answered for the patient and supervisor meter shop. Hand cramps are sometimes worse since falling and shr can not wear her wedding ring. Joint pain is everywhere. Back pain is yeah. Long standing and worse since her fall. Patient is here for 4 month F/U. Patient states that she has not been doing well since getting pneumonia in May. States she fell in August and has times when the pain in foot and ankle hurt so bad she is unable to bear weight. Prednisone two times since last seen for joint pain. Last time in November. I have been told that prednisone and tramadol are high risk medications. Objective Review of Systems Constitutional: Negative. HENT: Negative. Eyes: Negative. Respiratory: Negative. Cardiovascular: Negative. Gastrointestinal: Negative. Endocrine: Negative. Genitourinary: Negative. Musculoskeletal: Positive for back pain and myalgias. Hand cramps Skin: Negative. Allergic/Immunologic: Negative. Neurological: History of 3 strokes with poor balance ever since and one stroke caused aphasia Hematological: Negative. Vitals: Blood pressure 100/62, pulse 62, temperature 97.9 F (36.6 C), temperature source Temporal, height 1.6 m (5' 3 ), weight 83 kg (182 lb 15.7 oz), SpO2 97 %. Physical Exam Vitals and nursing note reviewed. Constitutional: Appearance: Normal appearance. She is obese. HENT: Head: Normocephalic and atraumatic. Right Ear: External ear normal. Left Ear: External ear normal. Nose: Nose normal. Mouth/Throat: Mouth: Mucous membranes are moist. Pharynx: Oropharynx is clear. Eyes: Extraocular Movements: Extraocular movements intact. Conjunctiva/sclera: Conjunctivae normal. Pupils: Pupils are equal, round, and reactive to light. Comments: glasses Cardiovascular: Rate and Rhythm: Normal rate and regular rhythm. Pulses: Radial pulses are 2+ on the right side and 2+ on the left side. Heart sounds: Normal heart sounds. Pulmonary: Effort: Pulmonary effort is normal. Breath sounds: Normal breath sounds. Abdominal: General: Bowel sounds are normal. Palpations: Abdomen is soft. Comments: obese Musculoskeletal: Right shoulder: Decreased range of motion. Left shoulder: Decreased range of motion. Right upper arm: Normal. Left upper arm: Normal. Right elbow: Normal. Left elbow: Normal. Right forearm: Normal. Left forearm: Normal. Right wrist: Decreased range of motion. Left wrist: Decreased range of motion. Right hand: Deformity present. Decreased range of motion. Decreased strength. Left hand: Deformity present. Decreased range of motion. Decreased strength. Arms: Hands: Cervical back: Neck supple. Thoracic back: Decreased range of motion. Right upper leg: Normal. Left upper leg: Normal. Right knee: Crepitus present. Decreased range of motion. Left knee: Crepitus present. Decreased range of motion. Right lower leg: Normal. Left lower leg: Normal. Right ankle: Decreased range of motion. Left ankle: Decreased range of motion. Legs: Comments: Kyphosis T-spine Skin: General: Skin is warm and dry. Neurological: Mental Status: She is alert and oriented to person, place, and time. Cranial Nerves: Cranial nerves 2-12 are intact. Motor: Weakness present. Gait: Gait abnormal. 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 Walker Neurological Exam Mental Status Alert. Oriented to person, place, and time. Cranial Nerves CN II: Vision test: glasses. CN III, IV, : Extraocular movements intact bilaterally. Pupils equal round and reactive to light bilaterally. Gait Abnormal gait. 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 Walker. Assessment and Plan Encounter Diagnoses Name Primary? Rheumatoid arthritis of multiple sites with negative rheumatoid factor Yes History of rheumatoid arthritis History of stroke correction (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 of aspirin terminal manager current use of non-steroidal anti-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 (NSAID) terminal manager current use of systemic steroids Long-term use of high-risk medication Long-term use of Plaquenil On statin therapy Fatty liver Hyperchloremia Hyperglycemia Lumbar degenerative disc disease Osteoarthritis of cervical spine, unspecified spinal osteoarthritis 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 status Osteoarthritis of both hands, unspecified osteoarthritis type Osteoarthritis of both wrists, unspecified osteoarthritis type Rotator cuff arthropathy of both shoulders Thoracic degenerative disc disease 1. Time was spent with the patient today in education in re: to all their medical conditions. A complete H&P&ROS was obtained and is either in this note or in the EHR. Please do not hesitate to contact me with any questions or concerns re: this patient. Past History Past medical, surgical, family, and social histories have been reviewed and updated with the patient today and are located elsewhere in the medical record. 2. Thank you for allowing me to participate in the care of your patient. With your permission I would like to F/U with your patient. 3. Optho F/u per Dr. Grant Etienne 4. Chronic pain management F/U per Dr. Fuentes 5. Monitor Vit D level every 6 -12 months if remains low rec: eval by endo 6. Rx given for PT/OT - went terrible and patient is not doing HEP 7. ESR was normal at 30 and is elevated at 44 8. Patient should have an eye exam prior to starting Plaquenil and every 6-12 months as long as taking Plaquenil 9. Chloride is elevated at 107 10. CO2 was low at 21 and is now normal at 24 11. Lidocaine pathces. 12. Pulmonary F/U per Jesse Garcia 13. UA showed 1+ 2+ protein and 100 mg/dl protein 14. Glucose was elevated at 169 and still is at 117 15. CRP was negative at 0.66 and still is at < 5.0 16. Negative RF, SUSI. CCP, Celiac, ANCA, 17. Uric acid was normal at 3.8 18. STEFFANY level was normal at 46 19. CXR: shows no hilar adenopathy. 20. Cardiology F/U per Dr. Seaman 22. 90 day supply on medications 23. Neuro f/U per Dr. Jones 24. Patient declines referral to hand surgery 25. Patient declines cortisone shot 26. D-dimer was elevated at 1290 27. Patient is taking prebiotic and Tylenol PRN and ASA 81 mg a day and trazodone 28. Pulmonary F/U per Dr. Momin 29. Rx given for Plaquenil to increase to 1 pill a day 30. Lab on or about 07/21/2023 31. F/U with me in 6 months documented in this encounter [facility] 01-09-2023 Note [facility] 01-09-2023 Note [facility] 01-08-2023 Evaluation + Plan note Associated Problem(s): Asthma - Nonsmoker; Hx of Asthma was on albuterol nebs prev. - have element of mild RAD, Asthma - 12/04/2022 PFT: - Spirometry - NORMAL, FEV1/FVC 78%, FEV1 1.86L 94% predicted, FVC 2.39L 90% predicted - Significant response to bronchodilator: NO. - Lung Volume - possible mild OBSTRUCTION based on Hyperinflation, Air Trapping; w/ HYPERINFLATION TLC 5.51L 121% predicted, RV 3.03L 159% predicted - w/ AIR TRAPPING. - Diffusing Capacity: MOD. REDUCED DLCO 59% predicted, DL/VA 103% (prob. Extraparenchymal cause; e.g., body habitus, etc). - 12/04/2022 Alpha 1 Antitrypsin enzyme level 146 mg/dL Normal. - 12/04/2022 IgE antibody 5 Not high. - 12/04/2022 Mini-Panel, Mold Allergens (Allergy tests): Negative. - 12/04/2022 CBC Satisfactory, EOS 100. - was not on maint inhalers prev. Consider ICS/LABA, triple tx Trelegy or other inhaler regimen, if feasible; cont. albuterol as needed; use spacer - 01/08/23 try Trelegy, if feasible, or other txs, ICS/LABA; cont albuterol prn. - may also use duonebs; budesonide+formoterol nebs alternatively - patient benefits from nebulizer treatments - Inhaler technique teaching done/reviewed prev.; rinse mouth after inhaler use especially after inhaled steroids - consider Montelukast - consider Allergy testing, check Eosinophils, IgE prn, as indic - Consider other controller meds, Biologics subsequently, if indicated - Avoid/control triggers; environmental control prn - control GERD as indicated - Smoking cessation reinforced: nonsmoker - advised OTC Calcium+Vit D, lifestyle recs for osteoporosis prevention, especially if on frequent or long-term systemic steroids (osteoporosis screening/management as per PCP prn, as indic) - monitor PFT, as indicated. - Consider Methacholine Challenge Test, if indicated - consider Peak Flow monitoring, Asthma Action Plan subseq., if necessary - ffup imaging as needed, Chest radiograph as indicated (CT Chest if indicated) - Pulmonary rehab program: as indic., if feasible; rec to stay active - Influenza, pneumococcal, COVID19 vaccines recommended, updated T [facility] 01-08-2023 Miscellaneous Notes Associated Problem(s): Asthma - Nonsmoker; Hx of Asthma was on albuterol nebs prev. - have element of mild RAD, Asthma - 12/04/2022 PFT: - Spirometry - NORMAL, FEV1/FVC 78%, FEV1 1.86L 94% predicted, FVC 2.39L 90% predicted - Significant response to bronchodilator: NO. - Lung Volume - possible mild OBSTRUCTION based on Hyperinflation, Air Trapping; w/ HYPERINFLATION TLC 5.51L 121% predicted, RV 3.03L 159% predicted - w/ AIR TRAPPING. - Diffusing Capacity: MOD. REDUCED DLCO 59% predicted, DL/VA 103% (prob. Extraparenchymal cause; e.g., body habitus, etc). - 12/04/2022 Alpha 1 Antitrypsin enzyme level 146 mg/dL Normal. - 12/04/2022 IgE antibody 5 Not high. - 12/04/2022 Mini-Panel, Mold Allergens (Allergy tests): Negative. - 12/04/2022 CBC Satisfactory, EOS 100. - was not on maint inhalers prev. Consider ICS/LABA, triple tx Trelegy or other inhaler regimen, if feasible; cont. albuterol as needed; use spacer - 01/08/23 try Trelegy, if feasible, or other txs, ICS/LABA; cont albuterol prn. - may also use duonebs; budesonide+formoterol nebs alternatively - patient benefits from nebulizer treatments - Inhaler technique teaching done/reviewed prev.; rinse mouth after inhaler use especially after inhaled steroids - consider Montelukast - consider Allergy testing, check Eosinophils, IgE prn, as indic - Consider other controller meds, Biologics subsequently, if indicated - Avoid/control triggers; environmental control prn - control GERD as indicated - Smoking cessation reinforced: nonsmoker - advised OTC Calcium+Vit D, lifestyle recs for osteoporosis prevention, especially if on frequent or long-term systemic steroids (osteoporosis screening/management as per PCP prn, as indic) - monitor PFT, as indicated. - Consider Methacholine Challenge Test, if indicated - consider Peak Flow monitoring, Asthma Action Plan subseq., if necessary - ffup imaging as needed, Chest radiograph as indicated (CT Chest if indicated) - Pulmonary rehab program: as indic., if feasible; rec to stay active - Influenza, pneumococcal, COVID19 vaccines recommended, updated Associated Problem(s): Pulmonary fibrosis - had CT Chest CTPE (had elev Pete) on 08/06/22 c/o [facility] done at a time when she was treated for cough, sob, poss PNA: showing poss ILD, NSIP. - hx of Arthritis, OA, RA; was on Plaquenil; ff'd by Rheum Dr. Farrar - Nonsmoker; Hx of Asthma was on albuterol nebs prev. - 08/06/22 CTPE [facility]: IMPRESSION No CT evidence of pulmonary embolism. Extensive fine reticular opacities throughout both lungs with multiple groundglass opacities and traction bronchiolectasis, raising concern for interstitial lung disease. 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 1.5 cm calcified lesion in the spleen. - 12/04/2022 CT Chest w/o contrast reviewed: bilateral peripheral, subpleural fibrosis w/o definite honeycombing or lower lobe predominance; minimal GGOs. - incidental finding coronary artery calcifications related to age, cholesterol atherosclerosis: routine ffup w/ PCP. --- ffup CT Chest 6 mos to monitor; 06/06/23 - 12/04/2022 PFT: - Spirometry - NORMAL, FEV1/FVC 78%, FEV1 1.86L 94% predicted, FVC 2.39L 90% predicted - Significant response to bronchodilator: NO. - Lung Volume - possible mild OBSTRUCTION based on Hyperinflation, Air Trapping; w/ HYPERINFLATION TLC 5.51L 121% predicted, RV 3.03L 159% predicted - w/ AIR TRAPPING. - Diffusing Capacity: MOD. REDUCED DLCO 59% predicted, DL/VA 103% (prob. Extraparenchymal cause; e.g., body habitus, etc). - 12/04/2022 LABS: STEFFANY 84 borderline, slightly increased; non-specific. - 12/04/2022 LABS: SUSI, SSA, SSB, SCL70, CCP, RF, ANCAs. MPO, WI# - Negative. - 12/04/2022 LABS: CK 64 slightly increased only. - 12/04/2022 LABS: CMP satisfactory (except glucose 262 RBS) - 12/04/2022 LABS: ESR 44 mildly increased, nonspecific. CRP Normal. - may have had Acute Pneumonitis w/ GGOs on CT 07/2022 - Improved on ffup CT as noted: more of pulm fibrosis rather than GGOs on ffup CT 12/04/22; Not definite UIP - consider referral to ILD/PF center prn, as indic - ffup CT Chest, HRCT protocol prn, as indic - monitor chest imaging, PFT, 6mwt prn, as indic - further evaluation, management pending results, clinical course. Associated Problem(s): SOLE on CPAP Had sleep study and given CPAP yrs - unable to use, tolerate; also given O2 HS subseq. Associated Problem(s): Restrictive lung disease (Resolved 01/08/2023) May develop RLD - monitor imaging, PFT as indic - rec wt loss, stay active - 12/04/2022 PFT: - Spirometry - NORMAL, FEV1/FVC 78%, FEV1 1.86L 94% predicted, FVC 2.39L 90% predicted - Significant response to bronchodilator: NO. - Lung Volume - possible mild OBSTRUCTION based on Hyperinflation, Air Trapping; w/ HYPERINFLATION TLC 5.51L 121% predicted, RV 3.03L 159% predicted - w/ AIR TRAPPING. - Diffusing Capacity: MOD. REDUCED DLCO 59% predicted, DL/VA 103% (prob. Extraparenchymal cause; e.g., body habitus, etc). Results do not exclude asthma, RAD. documented in this encounter [facility] 01-08-2023 Evaluation + Plan note Associated Problem(s): Pulmonary fibrosis - had CT Chest CTPE (had elev DDimer) on 08/06/22 c/o [facility] done at a time when she was treated for cough, sob, poss PNA: showing poss ILD, NSIP. - hx of Arthritis, OA, RA; was on Plaquenil; ff'd by Rheum Dr. Farrar - Nonsmoker; Hx of Asthma was on albuterol nebs prev. - 08/06/22 CTPE [facility]: IMPRESSION No CT evidence of pulmonary embolism. Extensive fine reticular opacities throughout both lungs with multiple groundglass opacities and traction bronchiolectasis, raising concern for interstitial lung disease. 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 1.5 cm calcified lesion in the spleen. - 12/04/2022 CT Chest w/o contrast reviewed: bilateral peripheral, subpleural fibrosis w/o definite honeycombing or lower lobe predominance; minimal GGOs. - incidental finding coronary artery calcifications related to age, cholesterol atherosclerosis: routine ffup w/ PCP. --- ffup CT Chest 6 mos to monitor; 06/06/23 - 12/04/2022 PFT: - Spirometry - NORMAL, FEV1/FVC 78%, FEV1 1.86L 94% predicted, FVC 2.39L 90% predicted - Significant response to bronchodilator: NO. - Lung Volume - possible mild OBSTRUCTION based on Hyperinflation, Air Trapping; w/ HYPERINFLATION TLC 5.51L 121% predicted, RV 3.03L 159% predicted - w/ AIR TRAPPING. - Diffusing Capacity: MOD. REDUCED DLCO 59% predicted, DL/VA 103% (prob. Extraparenchymal cause; e.g., body habitus, etc). - 12/04/2022 LABS: STEFFANY 84 borderline, slightly increased; non-specific. - 12/04/2022 LABS: SUSI, SSA, SSB, SCL70, CCP, RF, ANCAs. MPO, WI# - Negative. - 12/04/2022 LABS: CK 64 slightly increased only. - 12/04/2022 LABS: CMP satisfactory (except glucose 262 RBS) - 12/04/2022 LABS: ESR 44 mildly increased, nonspecific. CRP Normal. - may have had Acute Pneumonitis w/ GGOs on CT 07/2022 - Improved on ffup CT as noted: more of pulm fibrosis rather than GGOs on ffup CT 12/04/22; Not definite UIP - consider referral to ILD/PF center prn, as indic - ffup CT Chest, HRCT protocol prn, as indic - monitor chest imaging, PFT, 6mwt prn, as indic - further evaluation, management pending results, clinical course. [facility] 01-08-2023 Evaluation + Plan note Associated Problem(s): SOLE on CPAP Had sleep study and given CPAP yrs - unable to use, tolerate; also given O2 HS subseq. [facility] 01-08-2023 Evaluation + Plan note Associated Problem(s): Restrictive lung disease (Resolved 01/08/2023) May develop RLD - monitor imaging, PFT as indic - rec wt loss, stay active - 12/04/2022 PFT: - Spirometry - NORMAL, FEV1/FVC 78%, FEV1 1.86L 94% predicted, FVC 2.39L 90% predicted - Significant response to bronchodilator: NO. - Lung Volume - possible mild OBSTRUCTION based on Hyperinflation, Air Trapping; w/ HYPERINFLATION TLC 5.51L 121% predicted, RV 3.03L 159% predicted - w/ AIR TRAPPING. - Diffusing Capacity: MOD. REDUCED DLCO 59% predicted, DL/VA 103% (prob. Extraparenchymal cause; e.g., body habitus, etc). Results do not exclude asthma, RAD. [facility] 01-08-2023 History of Present illness Narrative Do you smoke?- never Oxygen use ___no___ patient is benefiting from oxygen use. Do you have a CPAP- Cpap lives in [place] [employer]- [place] Most recent CT - 12/04/22 Most recent PFT- 12/04/22 Has your breathing changed?- no Dyspnea upon exertion- yes Dyspnea at rest- no Cough- productive- no Have you had the Covid 19 vaccine- yes Do you need a Medication refill? no Pt presents for review of CT Chest, Echo, 6 min walk, PFT Pt has maintenance inhaler Pt has rescue inhaler albuterol (2.5 MG/3ML) 0.083% inhalation solution Nebulizer machine Follow up to review CT Chest, Echo, 6 min walk, PFT all completed on 12/04/22 Patient is a 77 y.o. female who came to be evaluated and managed for poss ILD NSIP, Pulmonary Heart Disease (Secondary pulmonary arterial hypertension) . ICD-10-CM 1. Pulmonary fibrosis J84.10 EXERCISE-6 MIN. WALK PFT COMPLETE AMB REFERRAL TO PULMONARY REHAB 2. Restrictive lung disease J98.4 EXERCISE-6 MIN. WALK PFT COMPLETE 3. SOLE on CPAP G47.33 Z99.89 4. Uncomplicated asthma, unspecified asthma severity, unspecified whether persistent J45.909 EXERCISE-6 MIN. WALK PFT COMPLETE Zdbzbclyztv-Wgzrztfng-Dznvhq (Trelegy Ellipta) 200-62.5-25 MCG/ACT Aerosol Powder, breath activated DISCONTINUED: Ylowtqjtrzo-Mifwydzcm-Cajxhl (Trelegy Ellipta) 200-62.5-25 MCG/ACT Aerosol Powder, breath activated 5. Screening for viral disease Z11.59 NOVEL CORONAVIRUS LAB 1 - NASOPHARYNGEAL Problem List Items Addressed This Visit Asthma - Nonsmoker; Hx of Asthma was on albuterol nebs prev. - have element of mild RAD, Asthma - 12/04/2022 PFT: - Spirometry - NORMAL, FEV1/FVC 78%, FEV1 1.86L 94% predicted, FVC 2.39L 90% predicted - Significant response to bronchodilator: NO. - Lung Volume - possible mild OBSTRUCTION based on Hyperinflation, Air Trapping; w/ HYPERINFLATION TLC 5.51L 121% predicted, RV 3.03L 159% predicted - w/ AIR TRAPPING. - Diffusing Capacity: MOD. REDUCED DLCO 59% predicted, DL/VA 103% (prob. Extraparenchymal cause; e.g., body habitus, etc). - 12/04/2022 Alpha 1 Antitrypsin enzyme level 146 mg/dL Normal. - 12/04/2022 IgE antibody 5 Not high. - 12/04/2022 Mini-Panel, Mold Allergens (Allergy tests): Negative. - 12/04/2022 CBC Satisfactory, EOS 100. - was not on maint inhalers prev. Consider ICS/LABA, triple tx Trelegy or other inhaler regimen, if feasible; cont. albuterol as needed; use spacer - 01/08/23 try Trelegy, if feasible, or other txs, ICS/LABA; cont albuterol prn. - may also use duonebs; budesonide+formoterol nebs alternatively - patient benefits from nebulizer treatments - Inhaler technique teaching done/reviewed prev.; rinse mouth after inhaler use especially after inhaled steroids - consider Montelukast - consider Allergy testing, check Eosinophils, IgE prn, as indic - Consider other controller meds, Biologics subsequently, if indicated - Avoid/control triggers; environmental control prn - control GERD as indicated - Smoking cessation reinforced: nonsmoker - advised OTC Calcium+Vit D, lifestyle recs for osteoporosis prevention, especially if on frequent or long-term systemic steroids (osteoporosis screening/management as per PCP prn, as indic) - monitor PFT, as indicated. - Consider Methacholine Challenge Test, if indicated - consider Peak Flow monitoring, Asthma Action Plan subseq., if necessary - ffup imaging as needed, Chest radiograph as indicated (CT Chest if indicated) - Pulmonary rehab program: as indic., if feasible; rec to stay active - Influenza, pneumococcal, COVID19 vaccines recommended, updated Relevant Medications Mzxcswwccxc-Jqezreewv-Hfdenk (Trelegy Ellipta) 200-62.5-25 MCG/ACT Aerosol Powder, breath activated Other Relevant Orders EXERCISE-6 MIN. WALK PFT COMPLETE Pulmonary fibrosis - Primary - had CT Chest CTPE (had elev DDimer) on 08/06/22 c/o [facility] done at a time when she was treated for cough, sob, poss PNA: showing poss ILD, NSIP. - hx of Arthritis, OA, RA; was on Plaquenil; ff'd by Rheum Dr. Farrar - Nonsmoker; Hx of Asthma was on albuterol nebs prev. - 08/06/22 CTPE [facility]: IMPRESSION No CT evidence of pulmonary embolism. Extensive fine reticular opacities throughout both lungs with multiple groundglass opacities and traction bronchiolectasis, raising concern for interstitial lung disease. 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 1.5 cm calcified lesion in the spleen. - 12/04/2022 CT Chest w/o contrast reviewed: bilateral peripheral, subpleural fibrosis w/o definite honeycombing or lower lobe predominance; minimal GGOs. - incidental finding coronary artery calcifications related to age, cholesterol atherosclerosis: routine ffup w/ PCP. --- ffup CT Chest 6 mos to monitor; 06/06/23 - 12/04/2022 PFT: - Spirometry - NORMAL, FEV1/FVC 78%, FEV1 1.86L 94% predicted, FVC 2.39L 90% predicted - Significant response to bronchodilator: NO. - Lung Volume - possible mild OBSTRUCTION based on Hyperinflation, Air Trapping; w/ HYPERINFLATION TLC 5.51L 121% predicted, RV 3.03L 159% predicted - w/ AIR TRAPPING. - Diffusing Capacity: MOD. REDUCED DLCO 59% predicted, DL/VA 103% (prob. Extraparenchymal cause; e.g., body habitus, etc). - 12/04/2022 LABS: STEFFANY 84 borderline, slightly increased; non-specific. - 12/04/2022 LABS: SUSI, SSA, SSB, SCL70, CCP, RF, ANCAs. MPO, WI# - Negative. - 12/04/2022 LABS: CK 64 slightly increased only. - 12/04/2022 LABS: CMP satisfactory (except glucose 262 RBS) - 12/04/2022 LABS: ESR 44 mildly increased, nonspecific. CRP Normal. - may have had Acute Pneumonitis w/ GGOs on CT 07/2022 - Improved on ffup CT as noted: more of pulm fibrosis rather than GGOs on ffup CT 12/04/22; Not definite UIP - consider referral to ILD/PF center prn, as indic - ffup CT Chest, HRCT protocol prn, as indic - monitor chest imaging, PFT, 6mwt prn, as indic - further evaluation, management pending results, clinical course. Relevant Orders EXERCISE-6 MIN. WALK PFT COMPLETE AMB REFERRAL TO PULMONARY REHAB SOLE on CPAP Had sleep study and given CPAP yrs - unable to use, tolerate; also given O2 HS subseq. RESOLVED: Restrictive lung disease May develop RLD - monitor imaging, PFT as indic - rec wt loss, stay active - 12/04/2022 PFT: - Spirometry - NORMAL, FEV1/FVC 78%, FEV1 1.86L 94% predicted, FVC 2.39L 90% predicted - Significant response to bronchodilator: NO. - Lung Volume - possible mild OBSTRUCTION based on Hyperinflation, Air Trapping; w/ HYPERINFLATION TLC 5.51L 121% predicted, RV 3.03L 159% predicted - w/ AIR TRAPPING. - Diffusing Capacity: MOD. REDUCED DLCO 59% predicted, DL/VA 103% (prob. Extraparenchymal cause; e.g., body habitus, etc). Results do not exclude asthma, RAD. Relevant Orders EXERCISE-6 MIN. WALK PFT COMPLETE Other Visit Diagnoses Screening for viral disease Relevant Orders [facility] 1 - NASOPHARYNGEAL HPI 01/08/23: not in ae, on albuterol; Echo, CT, PFT, 6mwt, labs Reviewed. 11/12/22 - hx of Arthritis, OA, RA; was on Plaquenil; ff'd by Rheum Dr. Farrar - had CT Chest CTPE (had elev DDimer) on 08/06/22 c/o [facility] done at a time when she was treated for cough, sob, poss PNA: showing poss ILD, NSIP. - Nonsmoker; Hx of Asthma was on albuterol nebs prev. Current Outpatient Medications: albuterol (2.5 MG/3ML) 0.083% inhalation solution, albuterol ALBUTEROL SULFATE NEBU 0.042%, - Take as directed ALBUTEROL SULFATE NEBU [id number] Amara Troy 11-22-2009 [facility] ([id number]), Disp: , Rfl: amLODIPine 5 MG Tab tablet, , Disp: , Rfl: atorvastatin 40 MG tablet, atorvastatin 40 mg tablet take 1 tablet by mouth once daily, Disp: , Rfl: biotin 1000 MCG tablet, Take 1 tablet by mouth daily., Disp: , Rfl: Blood Glucose Monitoring Suppl (Contour Blood Glucose System) w/Device Kit, Dispense 1 kit. Dx: Type 1 DM - Controlled E10.9, Disp: , Rfl: Continuous Blood Gluc Sensor (FREESTYLE GERBER 14 DAY SENSOR) Misc, , Disp: , Rfl: Diclofenac Sodium 1 % Gel gel, diclofenac VOLTAREN 1 % GEL apply topically twice daily as needed DICLOFENAC SODIUM [id number] Leandra Whitney RN 01-31-2014 [facility] ([id number]), Disp: , Rfl: Diclofenac Sodium 1 % Gel gel, apply 3 grams to THE PAINFUL AREA topically once daily for 28 DAYS, Disp: , Rfl: docusate 100 MG capsule, Take 1 capsule by mouth 2 times daily., Disp: , Rfl: ergocalciferol 1.25 MG (53815 UT) capsule, Take by mouth., Disp: , Rfl: Bpepibuaqaz-Eihpuadom-Tnnlmv (Trelegy Ellipta) 200-62.5-25 MCG/ACT Aerosol Powder, breath activated, Inhale 1 puff daily., Disp: 9 Each, Rfl: 3 furOSEmide 20 MG tablet, furosemide 20 mg tablet take 1 tablet by mouth every other day, Disp: , Rfl: glucose blood test strips (ASCENSIA MICROFILL TEST) Strip strip, Test blood sugar(s) 6 times daily. Dx: Type 1 DM - Controlled E10.9 Insulin: Yes, Disp: , Rfl: Hydroxychloroquine 200 MG tablet, 1 po qod, Disp: 45 tablet, Rfl: 3 insulin glargine 100 UNIT/ML vial, 46 units every 24 hr for insulin pump failure, Disp: , Rfl: insulin lispro 100 UNIT/ML vial, Humalog U-100 Insulin 100 unit/mL subcutaneous solution USE DIRECTED IN INSULIN PUMP UP TO 110 UNITS DAILY, Disp: , Rfl: Insulin Syringe-Needle U-100 (INSULIN SYRINGE 1CC/31GX5/16 ) 31G X 5/16 1 ML Misc, use as directed if pump fails up to 6 times daily, Disp: , Rfl: lansoprazole [address] capsule, , Disp: , Rfl: losartan 100 MG tablet, , Disp: , Rfl: Multiple Vitamin (MULTI-VITAMINS) Tab, MULTIPLE VITAMIN MULTIVITAMINS TABS One tablet by mouth daily MULTIPLE VITAMIN [id number] Amara Troy 11-22-[address] [facility] ([id number]), Disp: , Rfl: nitroGLYCERIN 0.4 MG/SPRAY Solution, nitroglycerin NITROLINGUAL 0.4 MG/SPRAY SOLN 1 spray under tongue every 5min up to 3 X (400mcg per spray) NITROGLYCERIN [id number] Leon Seaman MD 11-30-2012 Debora Myers RN [facility] ([id number]), Disp: , Rfl: pramipexole 1 MG tablet, At bedtime., Disp: , Rfl: predniSONE 5 MG tablet, 8 po q AM for 1 day decrease by 1 pill a day until off - to be used on a PRN basis, Disp: 36 tablet, Rfl: 5 Probiotic capsule, Take 1 capsule by mouth daily., Disp: , Rfl: RA ASPIRIN 325 MG Tab tablet, , Disp: , Rfl: RA VITAMIN D-3 125 MCG (5000 UT) Cap capsule, , Disp: , Rfl: traMADol 50 MG Tab tablet, , Disp: , Rfl: clonazePAM 1 MG tablet, Take 1 mg by mouth daily as needed., Disp: , Rfl: Rtrtvosemff-Rmaocdhhp-Aygklc (Trelegy Ellipta) 200-62.5-25 MCG/ACT Aerosol Powder, breath activated, Inhale 1 puff daily., Disp: 28 Each, Rfl: 0 No past medical history on file. No past surgical history on file. Social History Tobacco Use Smoking status: Never Smokeless tobacco: Never Substance Use Topics Alcohol use: Never No family history on file. Allergies Allergen Reactions Acetaminophen Amitriptyline Amoxicillin-Pot Clavulanate Cefadroxil Ephedrine Levofloxacin Oxycodone Sulfa Antibiotics Aspirin Dipyridamole Doxycycline Pregabalin Review of Systems Do you smoke?- never Oxygen use ___no___ patient is benefiting from oxygen use. Do you have a CPAP- Cpap lives in [place] [facility] Most recent CT - 8/17/23 Most recent PFT- 12/04/22 Has your breathing changed?- no Dyspnea upon exertion- yes Dyspnea at rest- no Cough- productive- no Have you had the Covid 19 vaccine- yes Do you need a Medication refill? no Pt presents for review of CT Chest, Echo, 6 min walk, PFT Pt has maintenance inhaler Pt has rescue inhaler albuterol (2.5 MG/3ML) 0.083% inhalation solution Nebulizer machine Follow up to review CT Chest, Echo, 6 min walk, PFT all completed on 12/04/22 Vitals: 01/08/23 1330 BP: 122/78 Pulse: 67 Resp: 18 SpO2: 98% Weight: 83 kg (183 lb) Height: 1.6 m (5' 3 ) Vital Signs Reviewed as noted. Physical Exam Vitals and nursing note reviewed. Constitutional: General: She is not in acute distress. Appearance: She is obese. She is not ill-appearing. HENT: Head: Normocephalic and atraumatic. Right Ear: External ear normal. Left Ear: External ear normal. Nose: No congestion or rhinorrhea. Mouth/Throat: Mouth: Mucous membranes are moist. Pharynx: Oropharynx is clear. No oropharyngeal exudate or posterior oropharyngeal erythema. Eyes: General: No scleral icterus. Neck: Vascular: No JVD. Trachea: No tracheal deviation. Cardiovascular: Rate and Rhythm: Normal rate and regular rhythm. Heart sounds: Normal heart sounds. Pulmonary: Effort: Pulmonary effort is normal. No respiratory distress. Breath sounds: No stridor. Examination of the left-lower field reveals rales. Rales present. No wheezing or rhonchi. Chest: Chest wall: No tenderness. Genitourinary: Comments: Deferred Musculoskeletal: Cervical back: Neck supple. Right lower leg: Edema present. Left lower leg: Edema present. Lymphadenopathy: Cervical: No cervical adenopathy. Skin: General: Skin is warm and dry. Coloration: Skin is not jaundiced. Neurological: Mental Status: She is alert and oriented to person, place, and time. Psychiatric: Mood and Affect: Mood normal. Behavior: Behavior normal. I personally reviewed selected chart notes, results, interpreted tests, imaging today before seeing the pt; reviewed and discussed w/ pt, questions answered - 12/04/2022 PFT: - Spirometry - NORMAL, FEV1/FVC 78%, FEV1 1.86L 94% predicted, FVC 2.39L 90% predicted - Significant response to bronchodilator: NO. - Lung Volume - possible mild OBSTRUCTION based on Hyperinflation, Air Trapping; w/ HYPERINFLATION TLC 5.51L 121% predicted, RV 3.03L 159% predicted - w/ AIR TRAPPING. - Diffusing Capacity: MOD. REDUCED DLCO 59% predicted, DL/VA 103% (prob. Extraparenchymal cause; e.g., body habitus, etc). Results do not exclude asthma, RAD. - 12/04/2022 Alpha 1 Antitrypsin enzyme level 146 mg/dL Normal. - 12/04/2022 IgE antibody 5 Not high. - 12/04/2022 Mini-Panel, Mold Allergens (Allergy tests): Negative. - 12/04/2022 CBC Satisfactory, EOS 100. - 12/04/2022 LABS: STEFFANY 84 borderline, slightly increased; non-specific. - 12/04/2022 LABS: SUSI, SSA, SSB, SCL70, CCP, RF, ANCAs. MPO, PR3 - Negative. - 12/04/2022 LABS: CK 64 slightly increased only. - 12/04/2022 LABS: CMP satisfactory (except glucose 262 RBS) - 12/04/2022 LABS: ESR 44 mildly increased, nonspecific. CRP Normal. - 12/04/2022 6MWT: on Room Air. - pt. walked for 6 minutes, for a distance of 375 ft (6MWD 114 m). - Baseline SpO2 at rest on room air: 99%. - Significant oxygen desaturation while walking: NO; lowest spO2 95% at 1 min; post-test spO2 97%. - Dyspnea: MILD, highest Mod. Chad Dyspnea Scale Score: 3/10. IMPRESSION: Exercise limitation: YES. Required or Qualified for Oxygen Supplementation: NO. - 12/04/2022 Echocardiogram reviewed: technically difficult study; Normal left, right heart function (LVEF 70%, mild diastol dysfunction), Mod. Aortic valve sclerosis w/ mild ; No pulmonary hypertension. - consider routine referral to cardiology for ffup of mild Aortic Stenosis - 12/04/2022 CT Chest w/o contrast reviewed: bilateral peripheral, subpleural fibrosis w/o definite honeycombing or lower lobe predominance; minimal GGOs. - incidental finding coronary artery calcifications related to age, cholesterol atherosclerosis: routine ffup w/ PCP. --- ffup CT Chest 6 mos to monitor; 06/06/23 - 08/06/22 CTPE [facility]: IMPRESSION No CT evidence of pulmonary embolism. Extensive fine reticular opacities throughout both lungs with multiple groundglass opacities and traction bronchiolectasis, raising concern for interstitial lung disease. 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 1.5 cm calcified lesion in the spleen. FINDINGS Lung parenchyma and airways: The central airways are patent. The bilateral lungs are remarkable for diffuse fine reticular opacities with peripheral lung and lung base predominance. There appears to be sparing of the immediate subpleural region in the left lung. Multiple groundglass opacities seen in the bilateral lungs predominantly involving the upper lobes. Difficult to evaluate possible tiny nodules in the presence of diffuse reticular opacities and groundglass opacities. No mass lesion identified. There appears to be mild traction bronchiolectasis. No significant architectural distortion or honeycombing. Pleural space: No pleural effusions or pneumothorax. Lower neck, lymph nodes, and mediastinum: The imaged thyroid gland is normal. No supraclavicular or axillary lymphadenopathy. There are multiple borderline enlarged mediastinal lymph nodes, likely reactive. Immunization Administrations COVID-19 bivalent vaccine (Pfizer) 12yr +, 30mcg/0.3mL 01/03/2022 (76 y.o.) COVID-19 monovalent vaccine (Pfizer) 12yr +, 30mcg/0.3mL 07/30/2021 (75 y.o.) COVID-19 monovalent vaccine, mRNA, Pfizer, 0.3 ML 06/06/2020 (74 y.o.) 06/28/2020 (74 y.o.) 01/13/2021 (75 y.o.) Return in about 6 months (around 07/09/2023). CT 06/06/23 FOLLOW-UP Patient was advised to call with any questions or concerns. If symptoms worsen or fail to improve patient was advised to call for follow up in our office and/or PCP, or go to the Emergency Dept. Benefits, Risks, Contraindications, and Complications of recommended treatments were explained (and to call if prescriptions are not feasible); and the patient stated understanding and agreement to proceed with plan. 01/08/2023: I spent more than 30 mins: reviewed selected chart notes, results, interpreted tests, imaging today before seeing the pt; interviewing and examining pt; reviewed and discussed w/ pt, questions answered; counselling/educating pt/family/caregiver; ordering meds/tests as appropriate; documenting clinical information in the chart. Some Elements copied from previous notes. I have updated where appropriate, and all reflect current medical decision making from today's encounter. Note: This dictation was generated using [employer] voice recognition software. Please excuse any typographical, grammatical or spelling errors that may have occurred using the system Ivan Momin MD, MPH, [facility] Pulmonary/Critical Care Medicine [facility] 01/08/2023 documented in this encounter [facility] 01-05-2023 Note [facility] 01-05-2023 History of Present illness Narrative CC: Patient presents with: Recheck: Follow up HPI Mckayla Russo is a 77 year old female who presents today for routine follow up. HTN: Ms. Russo indicates that she is feeling well and denies any symptoms referable to elevated blood pressure. Specifically denies headache, chest pain, palpitations, and peripheral edema. Patient denies any side effects of her medication(s) and is compliant with their regimen. She does not check BP's generally. Mckayla denies regular aerobic exercise. She watches her diet for sodium, low fat and low cholesterol most of the time. Last 3 Encounter BP Readings: Date: BP: 01/05/2023 128/68 11/24/2022 132/78 09/18/2022 132/72 Chronic pain with previous diagnosis of RA. Recent drying supervisor does not feel she has this so scheduled with new Chinese Language Professor and sees Dr. Grajeda in February for a second opinion. We are prescribing the hydroxychloroquine until seen by Dr. Grajeda. When previously drying supervisor decreased it, patient reported increase in pain so previous dosage initiated. ILD: Was seeing [facility] who felt the RA was resulting in her lung concerns but is now seeing a new catering assistant she feels is very thorough and just had multiple tests completed. Still with hip pain and difficulty sleeping. Pain mgmt is not helping and has not seen orhto as ordered at last appointment because of difficulty getting in with [facility] orthopedic. Has taken clonazepam for years to help sleep but now is not effective and possibly from her hip pain. DIABETES MELLITUS: Ms. Russo denies excessive thirst or increased frequency of urination, chest pain or dyspnea , new or unusual visual symptoms, weight loss/gain, lightheadedness/dizziness, and bowel changes/loose stools. Follows a diabetic diet most of the time. She is compliant with medication(s) and is tolerating med(s) without any side effects. She reports checking her glucose on a CGM schedule with varying results. Patient's last HgA1C was Hemoglobin A1C (%) Date Value 12/29/2022 6.7 05/07/2021 7.5 05/01/2020 7.5 Hemoglobin A1C (POCT) (%) Date Value 06/09/2022 7.1 10/18/2020 7.3 ) Wants to see new process automation engineer as her recent one has had issues with getting insulin pump orders in a timely manner and are sometimes difficult to get responses from. Sees Dr. Zhao for diabetic foot exams and large bunions. REVIEW OF SYSTEMS See HPI PAST MEDICAL HISTORY Diagnosis Date Abnormal mammogram, unspecified left breast BPPV (benign paroxysmal positional vertigo) 02/11/2015 BPV (benign positional vertigo) CAD (coronary artery disease) Carotid stenosis CARPAL TUNNEL BILATERRAL 08/08/2005 Coronary artery disease involving bad river band coronary artery Dr. Pederson follows regularly; S/P PTCA and stenting at [facility] [place], 2001 Coronary atherosclerosis of unspecified type of vessel, bad river band or graft Disorder of bone and cartilage, unspecified Diverticulosis of colon (without mention of hemorrhage) DKA (diabetic ketoacidoses) 09/28/2019 Esophagitis External hemorrhoids without mention of 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 Insomnia Internal hemorrhoids without mention of 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 Mammographic microcalcification Mild intermittent asthma without 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 Adult onset Mild nonproliferative diabetic retinopathy of both eyes ([facility]) 12/06/2018 Other and unspecified hyperlipidemia Other forms of migraine Other psoriasis Postsurgical percutaneous transluminal coronary angioplasty status Rheumatoid arthritis(714.0) RLS (restless legs syndrome) Stroke (cerebrum) (HCC) x3 Thoracic or lumbosacral neuritis or radiculitis, unspecified 03/01/2012 Type I (juvenile type) diabetes mellitus with neurological manifestations, not stated as 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.61) 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, 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) Unspecified asthma(493.90) Unspecified essential hypertension Unspecified hereditary and idiopathic peripheral neuropathy PAST SURGICAL HISTORY Procedure Laterality Date BREAST BIOPSY COLONOSCOPY FLX DX W/COLLJ SPEC WHEN PFRMD 02/26/2204 Colonoscopy COLONOSCOPY FLX DX W/COLLJ SPEC WHEN PFRMD 08/29/15 Colonoscopy COLONOSCOPY FLX DX W/COLLJ SPEC WHEN PFRMD 11/10/2018 Colonoscopy EGD 04/15/2002 ESOPHAGOGASTRODUODENOSCOPY TRANSORAL DIAGNOSTIC 11/10/2018 EGD EXC BREAST LES PREOP PLMT RAD MARKER OPEN 1 LES 03/2008 OPEN REPAIR OF ROTATOR CUFF CHRONIC left rotator cuff PAST SURGICAL HISTORY OF tonsilectomy and adenoidectomy PAST SURGICAL HISTORY OF right breast lumpectomy PAST SURGICAL HISTORY OF x 3 PAST SURGICAL HISTORY OF 1992 right thumb trigger finger PAST SURGICAL HISTORY OF hand surgery PAST SURGICAL HISTORY OF nose surgery PAST SURGICAL HISTORY OF age 17 axillary cyst removal PAST SURGICAL HISTORY OF 2000 heart cath with stent placement PAST SURGICAL HISTORY OF CARDIAC CAATH 2000, 2001, AND 2004 PREOP PLACEMENT NEEDLE LOC STEREOTACTIC CORE BIOPSY 02/24/08 LEFT - benign ALLERGIES Aggrenox [Aspirin-Dipyridamole], Amitriptyline, Cephalexin (Bulk), Cymbalta [Duloxetine], Doxycycline, Duricef [Cefadroxil], Ephedrine, Ilosone [Other], Iodine, Levaquin [Levofloxacin], Lyrica [Pregabalin], Nortriptyline, Oxycodone, Percocet [Oxycodone-Acetaminophen], and Sulfa (Sulfonamide Antibiotics) MEDICATIONS clonazePAM (KLONOPIN) 1 mg tablet Take 1 tablet by mouth at bedtime as needed for up to 90 days. 04/03/22-Needs renewed amLODIPine (NORVASC) 5 mg tablet TAKE 1 TABLET BY MOUTH EVERY DAY WALKER ROLLATOR SEAT WITH 6 WHEELS - RED For ambulation hydrOXYchloroQUINE (PLAQUENIL) 200 mg tablet Take 1 tablet by mouth twice daily. pramipexole (MIRAPEX) 1 mg tablet Take 2 tablets by mouth daily at bedtime. montelukast (SINGULAIR) 10 mg tablet Take 1 tablet by mouth daily at bedtime. insulin lispro (HUMALOG U-100 INSULIN) 100 unit/mL injection as directed in Insulin pump up to 110 units daily. Dx E10.65 atorvastatin (LIPITOR) 40 mg tablet Take 1 tablet by mouth once daily. clopidogrel (PLAVIX) 75 mg tablet Take 1 tablet by mouth once daily. lansoprazole (PREVACID) 30 mg capsule Take 1 capsule by mouth twice daily. diphenhydrAMINE (BENADRYL) 25 mg capsule Please take 2 tablets an hour prior to the contrast procedure (Patient not taking: Reported on 09/18/2022) nitroglycerin (NITROLINGUAL) 400 mcg/spray spray one every 5 minutes x3 as needed Bacillus coagulans/inulin (PROBIOTIC WITH PREBIOTIC ORAL) Take by mouth. blood sugar diagnostic (BLOOD GLUCOSE TEST) test strip Test blood sugar(s) 6 times daily. Dx: E 10.65, Z96.41 losartan (COZAAR) 100 mg tablet Take 1 tablet by mouth once daily. hydrocortisone 2.5 % cream Apply to affected area once daily. ketoconazole (NIZORAL) 2 % shampoo aspirin 81 mg chewable tablet Take 1 tablet by mouth once daily. blood sugar diagnostic (CONTOUR TEST STRIPS) test strip Test blood sugar(s) 6 times daily. Dx: Type 1 DM - Controlled E10.9 Insulin: Yes Cholecalciferol, Vitamin D3, 125 mcg (5,000 unit) cap Take 1 capsule by mouth once daily. Biotin 1 mg tab Take 1 tablet by mouth once daily. Blood-Glucose Meter (CONTOUR METER) monitoring kit Dispense 1 kit. Dx: Type 1 DM - Controlled E10.9 Insulin Syringe-Needle U-100 (BD ULTRAFINE INSULIN) 1 mL 31 gauge x 09/02 use as directed if pump fails up to 6 times daily (Patient not taking: Reported on 04/03/2022) multivitamin tablet Take 1 tablet by mouth once daily. acetaminophen (TYLENOL 8 HOUR) 650 mg CR tablet Take 1 tablet by mouth every 8 hours as needed. FAMILY HISTORY Problem Relation Age of Onset Cancer Mother breast (diagnosed mid 50's) Heart Mother valvular other (Other) Father leukemia (dx'd age 55) Asthma Paternal Grandmother Diabetes Paternal Grandmother Colon Cancer Other none other (autoimmune def) Daughter Social History Tobacco Use Smoking status: Never Smokeless tobacco: Never Substance Use Topics Alcohol use: No Drug use: No PHYSICAL EXAM BP 128/68 Pulse 64 Resp 16 Wt 85.7 kg (189 lb) SpO2 98% BMI 34.34 kg/m General Appearance: well appearing, in no acute distress, alert Pysch: mood and affect broad and appropriate Skin: Skin color, texture, turgor normal for age; Eyes: conjunctiva pink and moist, no icterus, sclera white, non-injected Lungs: Lungs clear to auscultation. No wheezing, rhonchi, rales. Heart: RRR without murmur, gallop, or rubs. No ectopy Health maintenance reviewed with patient: Spirometry Never done BP Controlled (<130/80) Never done Diabetic Foot Exam due on 10/02/2021 Covid-19 Vaccine(6 - Pfizer series) due on 05/05/2022 DTaP,Tdap,Td Vaccine(2 - Td or Tdap) due on 06/09/2023 Urine Albumin:Creatinine Ratio due on 06/12/2023 LDL Cholesterol due on 06/12/2023 HbA1C due on 06/29/2023 Dilated Retinal Exam due on 07/26/2023 Annual PCP Team Chronic Disease Visit due on 11/25/2023 Bone Density Screening Completed Influenza Vaccine Completed Advance Directive Discussion Completed Hepatitis C Screening Completed Shingrix Vaccine Completed Pneumococcal Vaccine: 65+ Completed Mammogram Screening Discontinued Colorectal Cancer Screening Discontinued DATA REVIEWED: Most recent labs ASSESSMENT/PLAN: 1. 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 - continue with current and medications and schedule with [facility] process automation engineer. We should be getting one in [place] but I am unsure when. 2. Hypertension, unspecified type - ICD9: 401.9, ICD10: I10 - Controlled - Continue current medications - Recommend home blood pressure monitoring, to bring results to next visit - Encouraged sodium restriction, DASH or Mediterranean diet - Recommend regular aerobic exercise 3. Insomnia, unspecified type - ICD9: 780.52, ICD10: G47.00 - will try trazodone for her insomnia. She has been on it before and thinks it may have worked but unsure. Follow up if this is not effective or for any concerns as we can increase dosage if needed - do not take with clonazepam - TRAZODONE 50 MG TABLET 4. Rheumatoid arthritis, involving unspecified site, unspecified whether rheumatoid factor present (HCC) - ICD9: 714.0, ICD10: M06.9 - continue hydroxychloroquine until seen by new drying supervisor - continue with regular eye exams. 5. Left hip pain - ICD9: 719.45, ICD10: M25.552 - we will fax ortho consult, wherever patient would like to go. There are multiple options in [place] that are not part of [facility] Prescription instructions reviewed with patient as applicable. Potential red flag symptoms discussed with the patient. Reviewed appropriate action plan to take if red flag symptoms occur. Patient agreeable to treatment plan. Sultana Harvey APRN.CNP documented in this encounter [facility] 12-17-2022 Miscellaneous Notes PDMP website checked and validated. All prescriptions have been APPROPRIATELY filled. No suspicious activity was identified. 12/17/2022 by Sultana Harvey APRN.TIM Patient has been identified by name and date of : Patient phones for refill(s): Requested Prescriptions Pending Prescriptions Disp Refills clonazePAM (KLONOPIN) 1 mg tablet 45 tablet 0 Sig: Take 1 tablet by mouth at bedtime as needed for up to 90 days. 04/03/22-Needs renewed Date of last office visit in primary care: 10/01/22 Last 2 Encounter Wt Readings: Date: Wt: 11/24/2022 86.6 kg (191 lb) 09/18/2022 84.8 kg (187 lb) Previous labs/tests for medication: Not applicable Please advise. Thank you. Isidra Mcneil LPN Patient also asking if the records that her dropped off were reviewed. Asking if she needs to still come in for the other lab work that was ordered. Please advise. documented in this encounter [facility] 12-09-2022 Miscellaneous Notes Pt called in and reports she is going to be dropping off paperwork today from Specialist [facility] provider wanted her to go to. documented in this encounter [facility] 12-05-2022 Note [facility] 12-05-2022 History of Present illness Narrative POPULATION HEALTH NAVIGATION OUTREACH Action/FYI 2nd call, left vm Patient Identified by Name and : NO Outreach Outcome/Action Unable to reach patient: Left message OneMorePallethart message sent Did you use a PCP flex slot to schedule this appointment? No Reason for Outreach Care Gap or Scheduling/Wellness visits Payer: Payor: MEDICARE / Plan: MEDICARE A AND B / Product Type: Medicare / Care Gap Reviewed:: Specialty Scheduling Reminder: Reminder note to check Health Maintenance for items below Health Maintenance items due: SPIROMETRY Never done BP CONTROLLED (<130/80) Never done DIABETIC FOOT EXAM due on 10/02/2021 COVID-19 VACCINE(6 - Pfizer series) due on 05/05/2022 Navigation Signature: Melissa Meeks December 05, 2022 3:32 PM documented in this encounter [facility] 12-04-2022 Miscellaneous Notes - 12/04/2022 Echocardiogram reviewed: technically difficult study; Normal left, right heart function (LVEF 70%, mild diastol dysfunction), Mod. Aortic valve sclerosis w/ mild ; No pulmonary hypertension. - consider routine referral to cardiology for ffup of mild Aortic Stenosis Will discuss details further during follow-up visit. documented in this encounter [facility] 12-04-2022 Progress note Formatting of t his note might be different from the original. - 12/04/2022 Echocardiogram reviewed: technically difficult study; Normal left, right heart function (LVEF 70%, mild diastol dysfunction), Mod. Aortic valve sclerosis w/ mild ; No pulmonary hypertension. - consider routine referral to cardiology for ffup of mild Aortic Stenosis Will discuss details further during follow-up visit. [facility] 12-04-2022 Procedure note Associated Ord er(s): PFT COMPLETE Procedure(s): PFT COMPLETE Summary: good 12/04/2022 Mckayla Russo is a 77 y.o. female, Date of :1945. Dx: dyspnea, ILD. Ht 63 in, Wt 203 lbs. Smoker: no. Medications not listed. Pt efforts: good (RT NOTES: pt unable to maintain tight seal during FRC portion of Nitrogen washout). Data appear acceptable and reproducible. Albuterol given for postbronchodilator spirometry. Procedure: Pulmonary Function Test Complete PFT including spirometry, spirometry with bronchodilator response, lung volumes, Diffusion capacity and Flow Volume Loop were performed during this session. Impression: - 12/04/2022 PFT: - Spirometry - NORMAL, FEV1/FVC 78%, FEV1 1.86L 94% predicted, FVC 2.39L 90% predicted - Significant response to bronchodilator: NO. - Lung Volume - possible mild OBSTRUCTION based on Hyperinflation, Air Trapping; w/ HYPERINFLATION TLC 5.51L 121% predicted, RV 3.03L 159% predicted - w/ AIR TRAPPING. - Diffusing Capacity: MOD. REDUCED DLCO 59% predicted, DL/VA 103% (prob. Extraparenchymal cause; e.g., body habitus, etc). Results do not exclude asthma, RAD. Please correlate clinically. SEE SCANNED PFT RESULTS FOR DETAILS. (The above report was entered in part using [employer] voice recognition medical dictation software. Although I have reviewed this report for accuracy, certain words and phrases may not be entered as intended. Please excuse typographical and grammatical errors.) [facility] 12-04-2022 Procedure note Associated Ord er(s): EXERCISE-6 MIN. WALK Procedure(s): EXERCISE-6 MIN. WALK 77 y.o. female; Dx: dyspnea. - 12/04/2022 6MWT: on Room Air. - pt. walked for 6 minutes, for a distance of 375 ft (6MWD 114 m). - Baseline SpO2 at rest on room air: 99%. - Significant oxygen desaturation while walking: NO; lowest spO2 95% at 1 min; post-test spO2 97%. - Dyspnea: MILD, highest Mod. Chad Dyspnea Scale Score: 3/10. IMPRESSION: Exercise limitation: YES. Required or Qualified for Oxygen Supplementation: NO. [facility] 12-04-2022 Procedure note Associated Ord er(s): PFT COMPLETE Procedure(s): PFT COMPLETE Summary: good 12/04/2022 Mckayla Russo is a 77 y.o. female, Date of :1945. Dx: dyspnea, ILD. Ht 63 in, Wt 203 lbs. Smoker: no. Medications not listed. Pt efforts: good (RT NOTES: pt unable to maintain tight seal during FRC portion of Nitrogen washout). Data appear acceptable and reproducible. Albuterol given for postbronchodilator spirometry. Procedure: Pulmonary Function Test Complete PFT including spirometry, spirometry with bronchodilator response, lung volumes, Diffusion capacity and Flow Volume Loop were performed during this session. Impression: - 12/04/2022 PFT: - Spirometry - NORMAL, FEV1/FVC 78%, FEV1 1.86L 94% predicted, FVC 2.39L 90% predicted - Significant response to bronchodilator: NO. - Lung Volume - possible mild OBSTRUCTION based on Hyperinflation, Air Trapping; w/ HYPERINFLATION TLC 5.51L 121% predicted, RV 3.03L 159% predicted - w/ AIR TRAPPING. - Diffusing Capacity: MOD. REDUCED DLCO 59% predicted, DL/VA 103% (prob. Extraparenchymal cause; e.g., body habitus, etc). Results do not exclude asthma, RAD. Please correlate clinically. SEE SCANNED PFT RESULTS FOR DETAILS. (The above report was entered in part using Dragon voice recognition medical dictation software. Although I have reviewed this report for accuracy, certain words and phrases may not be entered as intended. Please excuse typographical and grammatical errors.) Associated Order(s): EXERCISE-6 MIN. WALK Procedure(s): EXERCISE-6 MIN. WALK 77 y.o. female; Dx: dyspnea. - 12/04/2022 6MWT: on Room Air. - pt. walked for 6 minutes, for a distance of 375 ft (6MWD 114 m). - Baseline SpO2 at rest on room air: 99%. - Significant oxygen desaturation while walking: NO; lowest spO2 95% at 1 min; post-test spO2 97%. - Dyspnea: MILD, highest Mod. Chad Dyspnea Scale Score: 3/10. IMPRESSION: Exercise limitation: YES. Required or Qualified for Oxygen Supplementation: NO. documented in this encounter [facility] 12-02-2022 Note [facility] 12-02-2022 Miscellaneous Notes Patient has been identified by name and date of : No Patient phones for refill(s): Requested Prescriptions Pending Prescriptions Disp Refills amLODIPine (NORVASC) 5 mg tablet [Pharmacy Med Name: amLODIPine Besylate Oral Tablet 5 MG] 90 tablet 0 Sig: TAKE 1 TABLET BY MOUTH EVERY DAY Date of last office visit in primary care: 11/24/22 Last 2 Encounter Wt Readings: Date: Wt: 11/24/2022 86.6 kg (191 lb) 09/18/2022 84.8 kg (187 lb) Previous labs/tests for medication: Blood Pressure: BUN (mg/dL) Date Value 08/04/2022 9 05/01/2020 18 Sodium (mmol/L) Date Value 08/04/2022 140 05/01/2020 139 Last 1 Encounter BP Readings: Date: BP: 11/24/2022 132/78 Please advise. Thank you. Rylee Alvarado LPN documented in this encounter [facility] 12-02-2022 History of Present illness Narrative POPULATION HEALTH NAVIGATION OUTREACH Action/FYI 2nd call, full Patient Identified by Name and : NO Outreach Outcome/Action Unable to reach patient: Phone number not valid / voicemail full OneMorePallethart message sent Did you use a PCP flex slot to schedule this appointment? No Reason for Outreach Care Gap or Scheduling/Wellness visits Payer: Payor: MEDICARE / Plan: MEDICARE A AND B / Product Type: Medicare / Care Gap Reviewed:: Specialty Scheduling Reminder: Reminder note to check Health Maintenance for items below Health Maintenance items due: SPIROMETRY Never done BP CONTROLLED (<130/80) Never done DIABETIC FOOT EXAM due on 10/02/2021 COVID-19 VACCINE(6 - Pfizer series) due on 05/05/2022 Navigation Signature: Melissa Meeks December 02, 2022 11:42 AM documented in this encounter [facility] 11-24-2022 Note [facility] 11-24-2022 History of Present illness Narrative CC: Patient presents with: Recheck: Follow up, L leg pain from fall HPI Mckayla Russo is a 77 year old female who presents today for concerns of left hip pain from fall 2 months ago and wanting to update on her specialists. Fell on August 20. Was knocked to the floor after being hit by a chair. Still with left hip pain. Pain is constant, worsens with standing but is present even when laying in bed. Described as a constant ache down her entire leg. Recent xray ordered by other provider showing no acute abnormality and maintained joint spaces. Does get injections by Dr. Harding for chronic back pain and is over due but feels this pain is different than chronic. Denies any previous injury, new weakness, numbness, or tingling. History of, RA, CVA, and chronic weakness. Uses a rollator for ambulation because of her chronic weakness, pain, and to prevent falls. Rollator was hit by a tree and crushed. She is in need of a new one. Rheumatoid Arthritis and Interstitial Lung Disease. Months ago, pulmonology at [facility] felt her lung concerns were directly related to her autoimmune disorder. Wanted her plaquenil restarted at previous dose as this was decreased by previous drying supervisor as he felt this was not indicated. At last appointment her hydroxychlorquine was restarted at 200mg BID at catering assistant recommendations, continued shortness of breath, and increase in her chronic joint pain. Patient reports she gets regular eye exams because of her plaquenil treatment. Patient unsure if joint pain or shortness of breath has improved because of the left hip causing so much pain and unable to do much physical activity as a result. Now seeing Ivan for pulmonology which she feels she will continue with as he is thorough and has follow up appointment in December after multiple diagnostics are completed. Has establishing appointment with Dr. Grajeda in February. REVIEW OF SYSTEMS General: no fevers, no chills, no night sweats, no recurrent infections, no change in appetite, no change in energy, and no significant changes in weight Respiratory: no cough, no wheezing, no hemoptysis Cardiovascular: no chest pain, no chest pressure, no palpitations, and no swelling PAST MEDICAL HISTORY Diagnosis Date Abnormal mammogram, unspecified left breast BPPV (benign paroxysmal positional vertigo) 02/11/2015 BPV (benign positional vertigo) CAD (coronary artery disease) Carotid stenosis CARPAL TUNNEL BILATERRAL 08/08/2005 Coronary artery disease involving bad river band coronary artery Dr. Pederson follows regularly; S/P PTCA and stenting at [facility] [place], 2000 Coronary atherosclerosis of unspecified type of vessel, bad river band or graft Disorder of bone and cartilage, unspecified Diverticulosis of colon (without mention of hemorrhage) DKA (diabetic ketoacidoses) 09/28/2019 Esophagitis External hemorrhoids without mention of 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 Insomnia Internal hemorrhoids without mention of 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 Mammographic microcalcification Mild intermittent asthma without 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 Adult onset Mild nonproliferative diabetic retinopathy of both eyes ([facility]) 12/06/2018 Other and unspecified hyperlipidemia Other forms of migraine Other psoriasis Postsurgical percutaneous transluminal coronary angioplasty status Rheumatoid arthritis(714.0) RLS (restless legs syndrome) 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 Thoracic or lumbosacral neuritis or radiculitis, unspecified 03/01/2012 Type I (juvenile type) diabetes mellitus with neurological manifestations, not stated as 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.61) 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, 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) Unspecified asthma(493.90) Unspecified essential hypertension Unspecified hereditary and idiopathic peripheral neuropathy PAST SURGICAL HISTORY Procedure Laterality Date BREAST BIOPSY COLONOSCOPY FLX DX W/COLLJ SPEC WHEN PFRMD 02/26/2204 Colonoscopy COLONOSCOPY FLX DX W/COLLJ SPEC WHEN PFRMD 08/29/15 Colonoscopy COLONOSCOPY FLX DX W/COLLJ SPEC WHEN PFRMD 11/10/2018 Colonoscopy EGD 04/15/2002 ESOPHAGOGASTRODUODENOSCOPY TRANSORAL DIAGNOSTIC 11/10/2018 EGD EXC BREAST LES PREOP PLMT RAD MARKER OPEN 1 LES 03/2008 OPEN REPAIR OF ROTATOR CUFF CHRONIC left rotator cuff PAST SURGICAL HISTORY OF tonsilectomy and adenoidectomy PAST SURGICAL HISTORY OF right breast lumpectomy PAST SURGICAL HISTORY OF x 3 PAST SURGICAL HISTORY OF 1992 right thumb trigger finger PAST SURGICAL HISTORY OF hand surgery PAST SURGICAL HISTORY OF nose surgery PAST SURGICAL HISTORY OF age 17 axillary cyst removal PAST SURGICAL HISTORY OF 2000 heart cath with stent placement PAST SURGICAL HISTORY OF CARDIAC CAATH 2000, 2001, AND 2004 PREOP PLACEMENT NEEDLE LOC STEREOTACTIC CORE BIOPSY 02/24/08 LEFT - benign ALLERGIES Aggrenox [Aspirin-Dipyridamole], Amitriptyline, Cephalexin (Bulk), Cymbalta [Duloxetine], Doxycycline, Duricef [Cefadroxil], Ephedrine, Ilosone [Other], Iodine, Levaquin [Levofloxacin], Lyrica [Pregabalin], Nortriptyline, Oxycodone, Percocet [Oxycodone-Acetaminophen], and Sulfa (Sulfonamide Antibiotics) MEDICATIONS hydrOXYchloroQUINE (PLAQUENIL) 200 mg tablet Take 1 tablet by mouth twice daily. pramipexole (MIRAPEX) 1 mg tablet Take 2 tablets by mouth daily at bedtime. montelukast (SINGULAIR) 10 mg tablet Take 1 tablet by mouth daily at bedtime. clonazePAM (KLONOPIN) 1 mg tablet Take 1 tablet by mouth at bedtime as needed for up to 90 days. 04/03/22-Needs renewed insulin lispro (HUMALOG U-100 INSULIN) 100 unit/mL injection as directed in Insulin pump up to 110 units daily. Dx E10.65 atorvastatin (LIPITOR) 40 mg tablet Take 1 tablet by mouth once daily. clopidogrel (PLAVIX) 75 mg tablet Take 1 tablet by mouth once daily. lansoprazole (PREVACID) 30 mg capsule Take 1 capsule by mouth twice daily. diphenhydrAMINE (BENADRYL) 25 mg capsule Please take 2 tablets an hour prior to the contrast procedure (Patient not taking: Reported on 09/18/2022) nitroglycerin (NITROLINGUAL) 400 mcg/spray spray one every 5 minutes x3 as needed Bacillus coagulans/inulin (PROBIOTIC WITH PREBIOTIC ORAL) Take by mouth. blood sugar diagnostic (BLOOD GLUCOSE TEST) test strip Test blood sugar(s) 6 times daily. Dx: E 10.65, Z96.41 losartan (COZAAR) 100 mg tablet Take 1 tablet by mouth once daily. amLODIPine (NORVASC) 5 mg tablet Take 1 tablet by mouth once daily. hydrocortisone 2.5 % cream Apply to affected area once daily. ketoconazole (NIZORAL) 2 % shampoo aspirin 81 mg chewable tablet Take 1 tablet by mouth once daily. blood sugar diagnostic (CONTOUR TEST STRIPS) test strip Test blood sugar(s) 6 times daily. Dx: Type 1 DM - Controlled E10.9 Insulin: Yes Cholecalciferol, Vitamin D3, 125 mcg (5,000 unit) cap Take 1 capsule by mouth once daily. Biotin 1 mg tab Take 1 tablet by mouth once daily. Blood-Glucose Meter (CONTOUR METER) monitoring kit Dispense 1 kit. Dx: Type 1 DM - Controlled E10.9 Insulin Syringe-Needle U-100 (BD ULTRAFINE INSULIN) 1 mL 31 gauge x /16 use as directed if pump fails up to 6 times daily (Patient not taking: Reported on 04/03/2022) multivitamin tablet Take 1 tablet by mouth once daily. acetaminophen (TYLENOL 8 HOUR) 650 mg CR tablet Take 1 tablet by mouth every 8 hours as needed. FAMILY HISTORY Problem Relation Age of Onset Cancer Mother breast (diagnosed mid 50's) Heart Mother valvular other (Other) Father leukemia (dx'd age 55) Asthma Paternal Grandmother Diabetes Paternal Grandmother Colon Cancer Other none other (autoimmune def) Daughter Social History Tobacco Use Smoking status: Never Smokeless tobacco: Never Substance Use Topics Alcohol use: No Drug use: No PHYSICAL EXAM BP 132/78 Pulse 64 Temp 36.6 C (97.8 F) (Temporal) Resp 16 Wt 86.6 kg (191 lb) SpO2 98% BMI 34.70 kg/m General Appearance: well appearing, in no acute distress, alert Skin: Skin color, texture, turgor normal for age; Eyes: conjunctiva pink and moist, no icterus, sclera white, non-injected Lungs: Lungs clear to auscultation. No wheezing, rhonchi, rales. Heart: RRR without murmur, gallop, or rubs. No ectopy Left hip: patient able to get up on exam table with small amount of assistance for balance. Reported tenderness to posterior part of left hip joint. Difficulty on raising left leg in supine position because of pain.No edema or deformity noted. Reflexes normal and symmetric. speech normal, mental status intact, muscle strength normal but slightly decreased to left side. Health maintenance reviewed with patient: SPIROMETRY Never done BP CONTROLLED (<130/80) Never done DIABETIC FOOT EXAM due on 10/02/2021 COVID-19 VACCINE(6 - Pfizer series) due on 05/05/2022 DTAP,TDAP,TD(2 - Td or Tdap) due on 06/09/2023 HBA1C due on 12/07/2022 INFLUENZA(1) due on 12/19/2022 URINE ALBUMIN:CREATININE RATIO due on 06/12/2023 LDL CHOLESTEROL due on 06/12/2023 DILATED RETINAL EXAM due on 07/26/2023 ANNUAL PCP TEAM CHRONIC DISEASE VISIT due on 10/02/2023 BONE DENSITY Completed ADVANCE DIRECTIVE DISCUSSION Completed HEPATITIS C SCREENING Completed SHINGRIX VACCINE Completed PNEUMOCOCCAL: 65+ Completed MAMMOGRAM Discontinued COLORECTAL CANCER SCREENING Discontinued DATA REVIEWED: Most recent imaging ASSESSMENT/PLAN: 1. Left hip pain - ICD9: 719.45, ICD10: M25.552 (primary diagnosis) - occurred post fall without improvement in symptoms and difficulty performing typical daily tasks. - Patient declined PT at this time but agreeable for further evaluation by orthopedics. - CONSULT TO ORTHOPAEDICS 2. Fall, initial encounter - ICD9: E888.9, ICD10: W19.XXXA As above - CONSULT TO ORTHOPAEDICS 3. 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 Interstitial lung disease (HCC) - ICD9: 515, ICD10: J84.9 As above - continue with recommendations by pulmonology 5. Cerebral infarction, unspecified mechanism (HCC) - ICD9: 434.91, ICD10: I63.9 - no new symptoms but in need of a new rollator as CVA has caused chronic weakness. - WALKER ROLLATOR SEAT WITH 6 WHEELS - RED 6. Lumbar disc herniation - ICD9: 722.10, ICD10: M51.26 - needs new rollator - continue with recommendations by pain management - WALKER ROLLATOR SEAT WITH 6 WHEELS - RED 7. 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 - CBC + DIFF - COMP METABOLIC PANEL - HGB A1C Prescription instructions reviewed with patient as applicable. Potential red flag symptoms discussed with the patient. Reviewed appropriate action plan to take if red flag symptoms occur. Patient agreeable to treatment plan. Sultana Harvey APRN.CNP documented in this encounter [facility] 11-18-2022 Note HNO ID: [id number] Author: Manuela Thomas APRN.CNP Service: ? Author Type: Nurse Practitioner Type: Progress Notes Filed: 11/18/2022 1:15 PM Note Text: Heart, Vascular AND Thoracic [facility] Department of Vascular Surgery VIRTUAL VIDEO VISIT ESTABLISHED OUTPATIENT VISIT SERVICE DATE: 11/18/2022 Patient: Mckayla Russo SERVICE TIME: 11:18 AM : 1945 This is a virtual video visit. It required patient-provider interaction for the medical decision making as documented below. Mckayla Russo has consented to this video encounter. I have communicated my name and active licensure. The patient's identity and physical location were verified at the time of this visit. Either the patient or their legal visitor services representative has been informed of the risks and benefits of -- and alternatives to -- treatment through a remote evaluation and consents to proceed with the evaluation remotely. Mckayla Russo is a 77 year old female seen for Carotid Stenosis. CHIEF COMPLAINT Follow-up Carotid Stenosis; Carotid US done 11/11/22 HISTORY OF PRESENT ILLNESS Mckayla Russo is a 77 year old female for routine follow-up of her carotid disease, for which no previous intervention has been performed. Berkley saw Dr. Arredondo early 2021 to establish care. Ms. Russo has a history of several strokes in the past - most recent in 2013. Unclear what the origin of her strokes have been. Also has a history of CAD with stent placement, HTN, DM, HLD. Currently on ASA and a statin medication. No previous carotid intervention. She remains asymptomatic, with no s/s of TIA or stroke including amaurosis fugax, slurred speech, facial drooping, or weakness in an extremity. She is complaint with her medications, including daily ASA, plavix, and statin therapy, and she returns today for routine noninvasive follow-up. Berkley requested a virtual visit today, as she has been having significant mobility issues since a fall early August. Had a recent x-ray and there is no fracture, however, she continues to have a lot of pain making ambulating very difficult. Also continues to have some lingering symptoms from her pneumonia earlier this year as well. PAST MEDICAL HISTORY Diagnosis Date Abnormal mammogram, unspecified left breast BPPV (benign paroxysmal positional vertigo) 02/11/2015 BPV (benign positional vertigo) CAD (coronary artery disease) Carotid stenosis CARPAL TUNNEL BILATERRAL 08/08/2005 Coronary artery disease involving bad river band coronary artery Dr. Pederson follows regularly; S/P PTCA and stenting at [facility] [place], 2001 Coronary atherosclerosis of unspecified type of vessel, bad river band or graft Disorder of bone and cartilage, unspecified Diverticulosis of colon (without mention of hemorrhage) DKA (diabetic ketoacidoses) 09/28/2019 Esophagitis External hemorrhoids without mention of 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 Insomnia Internal hemorrhoids without mention of 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 Mammographic microcalcification Mild intermittent asthma without 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 Adult onset Mild nonproliferative diabetic retinopathy of both eyes ([facility]) 12/06/2018 Other and unspecified hyperlipidemia Other forms of migraine Other psoriasis Postsurgical percutaneous transluminal coronary angioplasty status Rheumatoid arthritis(714.0) RLS (restless legs syndrome) 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 Thoracic or lumbosacral neuritis or radiculitis, unspecified 03/01/2012 Type I (juvenile type) diabetes mellitus with neurological manifestations, not stated as 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.61) 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, 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) Unspecified asthma(493.90) Unspecified essential hypertension Unspecified hereditary and idiopathic peripheral neuropathy PAST SURGICAL HISTORY Procedure Laterality Date BREAST BIOPSY COLONOSCOPY FLX DX W/COLLJ SPEC WHEN PFRMD 02/26/2204 Colonoscopy COLONOSCOPY FLX DX W/COLLJ SPEC WHEN PFRMD 08/29/15 Colonoscopy COLONOSCOPY FLX DX W/COLLJ SPEC WHEN PFRMD 11/10/2018 Colonoscopy EGD 04/15/2002 ESOPHAGOGASTRODUODENOSCOPY TRANSORAL DIAGNOSTIC 11/10/2018 EGD EXC BREAST LES PREOP PLMT RAD MARKER OPEN 1 LES 03/2008 OPEN REPAIR OF ROTATOR CUFF CHRONIC left rotator cuff PAST SURGICAL HISTORY OF tonsilectomy and adenoidectomy PAST SURGICAL HISTORY OF right breast lumpectomy PAST SURGICAL HISTORY OF x 3 PAST SURGICAL HISTORY OF 1992 right thumb trigger finger PAST SURGICAL HISTORY OF hand surgery PAST SURGICAL HISTORY OF nose surgery PAST SURGICAL HISTORY OF age 17 axillary cyst removal PAST SURGICAL HISTORY OF 2000 heart cath with stent placement PAST SURGICAL HISTORY OF CARDIAC CAATH 2000, 2001, AND 2004 PREOP PLACEMENT NEEDLE LOC STEREOTACTIC CORE BIOPSY 02/24/08 LEFT - benign FAMILY HISTORY Problem Relation Age of Onset Cancer Mother breast (diagnosed mid 50's) Heart Mother valvular other ( (more content not included)... [facility] 11-18-2022 History of Present illness Narrative Heart, Vascular & Thoracic [facility] VIRTUAL VIDEO VISIT ESTABLISHED OUTPATIENT VISIT SERVICE DATE: 11/18/2022 Patient: Mckayla Russo SERVICE TIME: 11:18 AM : 1945 This is a virtual video visit. It required patient-provider interaction for the medical decision making as documented below. Mckayla Russo has consented to this video encounter. I have communicated my name and active licensure. The patient's identity and physical location were verified at the time of this visit. Either the patient or their legal visitor services representative has been informed of the risks and benefits of -- and alternatives to -- treatment through a remote evaluation and consents to proceed with the evaluation remotely. Mckayla Russo is a 77 year old female seen for Carotid Stenosis. CHIEF COMPLAINT Follow-up Carotid Stenosis; Carotid US done 11/11/22 HISTORY OF PRESENT ILLNESS Mckayla Russo is a 77 year old female for routine follow-up of her carotid disease, for which no previous intervention has been performed. Berkley saw Dr. Arredondo early 2021 to establish care. Ms. Russo has a history of several strokes in the past - most recent in 2013. Unclear what the origin of her strokes have been. Also has a history of CAD with stent placement, HTN, DM, HLD. Currently on ASA and a statin medication. No previous carotid intervention. She remains asymptomatic, with no s/s of TIA or stroke including amaurosis fugax, slurred speech, facial drooping, or weakness in an extremity. She is complaint with her medications, including daily ASA, plavix, and statin therapy, and she returns today for routine noninvasive follow-up. Berkley requested a virtual visit today, as she has been having significant mobility issues since a fall early August. Had a recent x-ray and there is no fracture, however, she continues to have a lot of pain making ambulating very difficult. Also continues to have some lingering symptoms from her pneumonia earlier this year as well. PAST MEDICAL HISTORY Diagnosis Date Abnormal mammogram, unspecified left breast BPPV (benign paroxysmal positional vertigo) 02/11/2015 BPV (benign positional vertigo) CAD (coronary artery disease) Carotid stenosis CARPAL TUNNEL BILATERRAL 08/08/2005 Coronary artery disease involving bad river band coronary artery Dr. Pederson follows regularly; S/P PTCA and stenting at [facility] [place], 2001 Coronary atherosclerosis of unspecified type of vessel, bad river band or graft Disorder of bone and cartilage, unspecified Diverticulosis of colon (without mention of hemorrhage) DKA (diabetic ketoacidoses) 09/28/2019 Esophagitis External hemorrhoids without mention of 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 Insomnia Internal hemorrhoids without mention of 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 Mammographic microcalcification Mild intermittent asthma without 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 Adult onset Mild nonproliferative diabetic retinopathy of both eyes ([facility]) 12/06/2018 Other and unspecified hyperlipidemia Other forms of migraine Other psoriasis Postsurgical percutaneous transluminal coronary angioplasty status Rheumatoid arthritis(714.0) RLS (restless legs syndrome) 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 Thoracic or lumbosacral neuritis or radiculitis, unspecified 03/01/2012 Type I (juvenile type) diabetes mellitus with neurological manifestations, not stated as 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.61) 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, 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) Unspecified asthma(493.90) Unspecified essential hypertension Unspecified hereditary and idiopathic peripheral neuropathy PAST SURGICAL HISTORY Procedure Laterality Date BREAST BIOPSY COLONOSCOPY FLX DX W/COLLJ SPEC WHEN PFRMD 02/26/2204 Colonoscopy COLONOSCOPY FLX DX W/COLLJ SPEC WHEN PFRMD 08/29/15 Colonoscopy COLONOSCOPY FLX DX W/COLLJ SPEC WHEN PFRMD 11/10/2018 Colonoscopy EGD 04/15/2002 ESOPHAGOGASTRODUODENOSCOPY TRANSORAL DIAGNOSTIC 11/10/2018 EGD EXC BREAST LES PREOP PLMT RAD MARKER OPEN 1 LES 03/2008 OPEN REPAIR OF ROTATOR CUFF CHRONIC left rotator cuff PAST SURGICAL HISTORY OF tonsilectomy and adenoidectomy PAST SURGICAL HISTORY OF right breast lumpectomy PAST SURGICAL HISTORY OF x 3 PAST SURGICAL HISTORY OF 1992 right thumb trigger finger PAST SURGICAL HISTORY OF hand surgery PAST SURGICAL HISTORY OF nose surgery PAST SURGICAL HISTORY OF age 17 axillary cyst removal PAST SURGICAL HISTORY OF 2000 heart cath with stent placement PAST SURGICAL HISTORY OF CARDIAC CAATH 2000, 2001, AND 2004 PREOP PLACEMENT NEEDLE LOC STEREOTACTIC CORE BIOPSY 02/24/08 LEFT - benign FAMILY HISTORY Problem Relation Age of Onset Cancer Mother breast (diagnosed mid 50's) Heart Mother valvular other (Other) Father leukemia (dx'd age 55) Asthma Paternal Grandmother Diabetes Paternal Grandmother Colon Cancer Other none other (autoimmune def) Daughter Social History Tobacco Use Smoking status: Never Smokeless tobacco: Never Substance Use Topics Alcohol use: No Drug use: No ALLERGIES Allergen Reactions Aggrenox [Aspirin-D* MIGRAINES AND VOMITING Amitriptyline Other: See Comments Confusion, falls Cephalexin (Bulk) GI Upset Cymbalta [Duloxetin* Unknown Doxycycline GI Upset headache Duricef [Cefadroxil] Hives Ephedrine Other: See Comments tachycardia, but pt. states she still uses nose spray Ilosone [Other] Swelling tachycardia Iodine Itching itching after prolonged use Levaquin [Levofloxa* Other: See Comments Achilles tendon problem Lyrica [Pregabalin] Other: See Comments Dizziness at 225mg twice daily Nortriptyline Other: See Comments vertigo Oxycodone Mental Status Change Percocet [Oxycodone* Unknown Sulfa (Sulfonamide * Hives blisters CURRENT MEDICATIONS hydrOXYchloroQUINE (PLAQUENIL) 200 mg tablet Take 1 tablet by mouth twice daily. pramipexole (MIRAPEX) 1 mg tablet Take 2 tablets by mouth daily at bedtime. montelukast (SINGULAIR) 10 mg tablet Take 1 tablet by mouth daily at bedtime. clonazePAM (KLONOPIN) 1 mg tablet Take 1 tablet by mouth at bedtime as needed for up to 90 days. 04/03/22-Needs renewed insulin lispro (HUMALOG U-100 INSULIN) 100 unit/mL injection as directed in Insulin pump up to 110 units daily. Dx E10.65 atorvastatin (LIPITOR) 40 mg tablet Take 1 tablet by mouth once daily. clopidogrel (PLAVIX) 75 mg tablet Take 1 tablet by mouth once daily. lansoprazole (PREVACID) 30 mg capsule Take 1 capsule by mouth twice daily. diphenhydrAMINE (BENADRYL) 25 mg capsule Please take 2 tablets an hour prior to the contrast procedure (Patient not taking: Reported on 09/18/2022) nitroglycerin (NITROLINGUAL) 400 mcg/spray spray one every 5 minutes x3 as needed Bacillus coagulans/inulin (PROBIOTIC WITH PREBIOTIC ORAL) Take by mouth. blood sugar diagnostic (BLOOD GLUCOSE TEST) test strip Test blood sugar(s) 6 times daily. Dx: E 10.65, Z96.41 losartan (COZAAR) 100 mg tablet Take 1 tablet by mouth once daily. amLODIPine (NORVASC) 5 mg tablet Take 1 tablet by mouth once daily. hydrocortisone 2.5 % cream Apply to affected area once daily. ketoconazole (NIZORAL) 2 % shampoo aspirin 81 mg chewable tablet Take 1 tablet by mouth once daily. blood sugar diagnostic (CONTOUR TEST STRIPS) test strip Test blood sugar(s) 6 times daily. Dx: Type 1 DM - Controlled E10.9 Insulin: Yes Cholecalciferol, Vitamin D3, 125 mcg (5,000 unit) cap Take 1 capsule by mouth once daily. Biotin 1 mg tab Take 1 tablet by mouth once daily. Blood-Glucose Meter (CONTOUR METER) monitoring kit Dispense 1 kit. Dx: Type 1 DM - Controlled E10.9 Insulin Syringe-Needle U-100 (BD ULTRAFINE INSULIN) 1 mL 31 gauge x 09/02 use as directed if pump fails up to 6 times daily (Patient not taking: Reported on 04/03/2022) multivitamin tablet Take 1 tablet by mouth once daily. acetaminophen (TYLENOL 8 HOUR) 650 mg CR tablet Take 1 tablet by mouth every 8 hours as needed. REVIEW OF SYSTEMS: PAIN ASSESSMENT: CURRENTLY HAVING PAIN; see HPI GENERAL: Negative for: Weight loss or gain, Fever or Chills, Weakness and Sleep difficulties. NEUROLOGIC/PSYCHIATRIC: Negative for: Weakness, Paralysis, Numbness, Tingling PHYSICAL EXAMINATION: VIDEO EXAM: (if completed, performed via video enabled technology) GENERAL: alert and appropriate, in no distress, well-hydrated, well nourished, and happy, smiling, interactive PATIENT ENTERED QUESTIONNAIRE SCORES PHQ-9 06/19/2020 07/07/2014 Score 0 7 PROMIS Global Health - (T-Scores - the mean of general population = 50. Five points is a clinically meaningful difference.) 09/16/2022 06/04/2022 11/21/2021 Physical T-Score 39.8 32.4 39.8 Mental T-Score 48.3 50.8 53.3 TESTING: Carotid duplex, 11/11/22, results: R ICA 20-39%, L ICA 60-79% --stable Carotid duplex, 10/22/21, results: R ICA 20-39%, L ICA 60-79% --stable Carotid duplex, 04/04/21, results: R ICA 20-39%, L ICA 60-79% ASSESSMENT: Mckayla Russo is a 77 year old female with stable carotid disease, as demonstrated on recent US. As she is asymptomatic I will see her again in 1 year with another Carotid US. She is currently on best medical management, including ASA and a statin medication, and she is a nonsmoker PLAN (Active Outpatient Problems): (I65.23) Bilateral carotid artery stenosis (primary encounter diagnosis) Comment: Asymptomatic and stable with no progression of stenosis in B ICA on current US Plan: Continue current rx; Call with any questions or concerns The patient is currently taking a statin: Yes The patient is currently taking aspirin: Yes I personally spent 30 minutes in total time involved in the management and care of this patient. Manuela Thomas, CARLOS EDUARDO.GRIPPER ATTACHER November 18, 2022 11:18 AM documented in this encounter [facility] 11-17-2022 Note HNO ID: [id number] Author: Berkley Garces MA Service: ? Author Type: Bioinformatics Programmer Type: Progress Notes Filed: 11/20/2022 12:20 PM Note Text: Opened in error [facility] 11-17-2022 History of Present illness Narrative POPULATION HEALTH NAVIGATION OUTREACH Action/FYI LVM [employer] MESSAGE SENT ANNUAL MEDICARE WELLNESS Patient Identified by Name and : NO Outreach Outcome/Action Unable to reach patient: Left message MyChart message sent Did you use a PCP flex slot to schedule this appointment? N/A Reason for Outreach Care Gap or Scheduling/Wellness visits Payer: Payor: MEDICARE / Plan: MEDICARE A AND B / Product Type: Medicare / Care Gap Reviewed:: Annual Wellness visit Reminder: Reminder note to check Health Maintenance for items below Health Maintenance items due: BP CONTROLLED (<130/80) Never done DIABETIC FOOT EXAM due on 10/02/2021 COVID-19 VACCINE(6 - Pfizer series) due on 05/05/2022 Navigation Signature: Berkley Garces MA November 17, 2022 10:05 AM documented in this encounter [facility] 11-12-2022 Evaluation + Plan note Associated Problem(s): Restrictive lung disease May develop RLD - monitor imaging, PFT as indic - rec wt loss, stay active [facility] 11-12-2022 Miscellaneous Notes Associated Problem(s): Restrictive lung disease May develop RLD - monitor imaging, PFT as indic - rec wt loss, stay active Associated Problem(s): SOLE on CPAP Had sleep study and given CPAP yrs - unable to use, tolerate; also given O2 HS subseq. Associated Problem(s): Asthma - Nonsmoker; Hx of Asthma was on albuterol nebs prev. - have element of mild RAD, Asthma - was not on maint inhalers prev. Consider ICS/LABA, triple tx Trelegy or other inhaler regimen, if feasible; cont. albuterol as needed; use spacer - may also use duonebs; budesonide+formoterol nebs alternatively - patient benefits from nebulizer treatments - Inhaler technique teaching done/reviewed prev.; rinse mouth after inhaler use especially after inhaled steroids - consider Montelukast - consider Allergy testing, check Eosinophils, IgE prn, as indic - Consider other controller meds, Biologics subsequently, if indicated - Avoid/control triggers; environmental control prn - control GERD as indicated - Smoking cessation reinforced: nonsmoker - advised OTC Calcium+Vit D, lifestyle recs for osteoporosis prevention, especially if on frequent or long-term systemic steroids (osteoporosis screening/management as per PCP prn, as indic) - monitor PFT, as indicated. - Consider Methacholine Challenge Test, if indicated - consider Peak Flow monitoring, Asthma Action Plan subseq., if necessary - ffup imaging as needed, Chest radiograph as indicated (CT Chest if indicated) - Pulmonary rehab program: as indic., if feasible; rec to stay active - Influenza, pneumococcal, COVID19 vaccines recommended, updated Associated Problem(s): NSIP (nonspecific interstitial pneumonitis) - had CT Chest CTPE (had elev DDimer) on 08/06/22 c/o [facility] done at a time when she was treated for cough, sob, poss PNA: showing poss ILD, NSIP. - hx of Arthritis, OA, RA; was on Plaquenil; ff'd by Rheum Dr. Farrar - Nonsmoker; Hx of Asthma was on albuterol nebs prev. - 08/06/22 CTPE [facility]: IMPRESSION No CT evidence of pulmonary embolism. Extensive fine reticular opacities throughout both lungs with multiple groundglass opacities and traction bronchiolectasis, raising concern for interstitial lung disease. 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 1.5 cm calcified lesion in the spleen. - ffup CT Chest, HRCT protocol - monitor chest imaging, PFT, 6mwt prn, as indic - further evaluation, management pending results, clinical course. documented in this encounter [facility] 11-12-2022 Evaluation + Plan note Associated Problem(s): SOLE on CPAP Had sleep study and given CPAP yrs - unable to use, tolerate; also given O2 HS subseq. [facility] 11-12-2022 Evaluation + Plan note Associated Problem(s): Asthma - Nonsmoker; Hx of Asthma was on albuterol nebs prev. - have element of mild RAD, Asthma - was not on maint inhalers prev. Consider ICS/LABA, triple tx Trelegy or other inhaler regimen, if feasible; cont. albuterol as needed; use spacer - may also use duonebs; budesonide+formoterol nebs alternatively - patient benefits from nebulizer treatments - Inhaler technique teaching done/reviewed prev.; rinse mouth after inhaler use especially after inhaled steroids - consider Montelukast - consider Allergy testing, check Eosinophils, IgE prn, as indic - Consider other controller meds, Biologics subsequently, if indicated - Avoid/control triggers; environmental control prn - control GERD as indicated - Smoking cessation reinforced: nonsmoker - advised OTC Calcium+Vit D, lifestyle recs for osteoporosis prevention, especially if on frequent or long-term systemic steroids (osteoporosis screening/management as per PCP prn, as indic) - monitor PFT, as indicated. - Consider Methacholine Challenge Test, if indicated - consider Peak Flow monitoring, Asthma Action Plan subseq., if necessary - ffup imaging as needed, Chest radiograph as indicated (CT Chest if indicated) - Pulmonary rehab program: as indic., if feasible; rec to stay active - Influenza, pneumococcal, COVID19 vaccines recommended, updated [facility] 11-12-2022 Evaluation + Plan note Associated Problem(s): NSIP (nonspecific interstitial pneumonitis) - had CT Chest CTPE (had elev DDimer) on 08/06/22 c/o [facility] done at a time when she was treated for cough, sob, poss PNA: showing poss ILD, NSIP. - hx of Arthritis, OA, RA; was on Plaquenil; ff'd by Rheum Dr. Farrar - Nonsmoker; Hx of Asthma was on albuterol nebs prev. - 08/06/22 CTPE [facility]: IMPRESSION No CT evidence of pulmonary embolism. Extensive fine reticular opacities throughout both lungs with multiple groundglass opacities and traction bronchiolectasis, raising concern for interstitial lung disease. 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 1.5 cm calcified lesion in the spleen. - ffup CT Chest, HRCT protocol - monitor chest imaging, PFT, 6mwt prn, as indic - further evaluation, management pending results, clinical course. [facility] 11-12-2022 History of Present illness Narrative Do you smoke?- never Oxygen use _no patient is benefiting from oxygen use. Do you have a CPAP -yes (not wearing for the last 18 yrs) [employer]- unkown Most recent CT - Tia 2031) Most recent PFT- 09/09 [place] [place]) Has your breathing changed?- no Dyspnea upon exertion- no Dyspnea at rest- no Cough- productive- yes clear Have you had the Covid 19 vaccine- yes Do you need a Medication refill? no Pt presents for review of Asthma Pt has Symbicort or spirivia maintenance inhaler Pt has rescue inhaler - nebulizer machine when needed New patient referred by Dr. Farrar to established care. Patient states when she uses Albuterol it makes her dizzy and she is unable to sleep Patient is a 77 y.o. female who came to be evaluated and managed for poss ILD NSIP, Asthma . ICD-10-CM 1. Secondary pulmonary arterial hypertension I27.21 ECHOCARDIOGRAM 2. NSIP (nonspecific interstitial pneumonitis) J84.89 CT CHEST WITHOUT CONTRAST EXERCISE-6 MIN. WALK PFT COMPLETE SUSI MULTIPLEX SCRN WITH REFLEX ANCA INIT SCRN (ANCA, PR3AB, MPO) ANGIOTENSIN CONVERTING ENZYME ANTI-SCLERODERMA AB (SCL70) C REACTIVE PROTEIN CYCLIC CITRULLINATE PEPTIDE AB SJOGREN'S AB SSA,SSB SEDIMENTATION RATE, AUTOMATED RHEUMATOID FACTOR COMPREHENSIVE METABOLIC PANEL CK CBC, EDIF, PLATELET 3. Mild intermittent asthma without 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 J45.20 4. Interstitial lung disease J84.9 CT CHEST WITHOUT CONTRAST EXERCISE-6 MIN. WALK PFT COMPLETE SUSI MULTIPLEX SCRN WITH REFLEX ANCA INIT SCRN (ANCA, PR3AB, MPO) ANGIOTENSIN CONVERTING ENZYME ANTI-SCLERODERMA AB (SCL70) C REACTIVE PROTEIN CYCLIC CITRULLINATE PEPTIDE AB SJOGREN'S AB SSA,SSB SEDIMENTATION RATE, AUTOMATED RHEUMATOID FACTOR COMPREHENSIVE METABOLIC PANEL CK ALPHA 1 ANTITRYPSIN CBC, EDIF, PLATELET IMMUNOGLOBULIN IGE ALLERGEN PROFILE, MOLD MINI-PANEL ALLERGEN PROFILE NOVEL CORONAVIRUS LAB 1 - NASOPHARYNGEAL 5. Screening for viral disease Z11.59 NOVEL CORONAVIRUS LAB 1 - NASOPHARYNGEAL 6. Reactive airway disease without 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, unspecified asthma severity, unspecified whether persistent J45.909 IMMUNOGLOBULIN IGE ALLERGEN PROFILE, MOLD MINI-PANEL ALLERGEN PROFILE 7. SOLE on CPAP G47.33 Z99.89 8. Restrictive lung disease J98.4 Problem List Items Addressed This Visit Asthma - Nonsmoker; Hx of Asthma was on albuterol nebs prev. - have element of mild RAD, Asthma - was not on maint inhalers prev. Consider ICS/LABA, triple tx Trelegy or other inhaler regimen, if feasible; cont. albuterol as needed; use spacer - may also use duonebs; budesonide+formoterol nebs alternatively - patient benefits from nebulizer treatments - Inhaler technique teaching done/reviewed prev.; rinse mouth after inhaler use especially after inhaled steroids - consider Montelukast - consider Allergy testing, check Eosinophils, IgE prn, as indic - Consider other controller meds, Biologics subsequently, if indicated - Avoid/control triggers; environmental control prn - control GERD as indicated - Smoking cessation reinforced: nonsmoker - advised OTC Calcium+Vit D, lifestyle recs for osteoporosis prevention, especially if on frequent or long-term systemic steroids (osteoporosis screening/management as per PCP prn, as indic) - monitor PFT, as indicated. - Consider Methacholine Challenge Test, if indicated - consider Peak Flow monitoring, Asthma Action Plan subseq., if necessary - ffup imaging as needed, Chest radiograph as indicated (CT Chest if indicated) - Pulmonary rehab program: as indic., if feasible; rec to stay active - Influenza, pneumococcal, COVID19 vaccines recommended, updated NSIP (nonspecific interstitial pneumonitis) - had CT Chest CTPE (had elev MEHNAZimer) on 08/06/22 c/o [facility] done at a time when she was treated for cough, sob, poss PNA: showing poss ILD, NSIP. - hx of Arthritis, OA, RA; was on Plaquenil; ff'd by Rheum Dr. Farrar - Nonsmoker; Hx of Asthma was on albuterol nebs prev. - 08/06/22 CTPE [facility]: IMPRESSION No CT evidence of pulmonary embolism. Extensive fine reticular opacities throughout both lungs with multiple groundglass opacities and traction bronchiolectasis, raising concern for interstitial lung disease. 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 1.5 cm calcified lesion in the spleen. - ffup CT Chest, HRCT protocol - monitor chest imaging, PFT, 6mwt prn, as indic - further evaluation, management pending results, clinical course. Relevant Orders CT CHEST WITHOUT CONTRAST EXERCISE-6 MIN. WALK PFT COMPLETE SUSI MULTIPLEX SCRN WITH REFLEX ANCA INIT SCRN (ANCA, PR3AB, MPO) ANGIOTENSIN CONVERTING ENZYME ANTI-SCLERODERMA AB (SCL70) C REACTIVE PROTEIN CYCLIC CITRULLINATE PEPTIDE AB SJOGREN'S AB SSA,SSB SEDIMENTATION RATE, AUTOMATED RHEUMATOID FACTOR COMPREHENSIVE METABOLIC PANEL CK CBC, EDIF, PLATELET SOLE on CPAP Had sleep study and given CPAP yrs - unable to use, tolerate; also given O2 HS subseq. Restrictive lung disease May develop RLD - monitor imaging, PFT as indic - rec wt loss, stay active Other Visit Diagnoses Secondary pulmonary arterial hypertension - Primary Relevant Orders ECHOCARDIOGRAM Interstitial lung disease Relevant Orders CT CHEST WITHOUT CONTRAST EXERCISE-6 MIN. WALK PFT COMPLETE SUSI MULTIPLEX SCRN WITH REFLEX ANCA INIT SCRN (ANCA, PR3AB, MPO) ANGIOTENSIN CONVERTING ENZYME ANTI-SCLERODERMA AB (SCL70) C REACTIVE PROTEIN CYCLIC CITRULLINATE PEPTIDE AB SJOGREN'S AB SSA,SSB SEDIMENTATION RATE, AUTOMATED RHEUMATOID FACTOR COMPREHENSIVE METABOLIC PANEL CK ALPHA 1 ANTITRYPSIN CBC, EDIF, PLATELET IMMUNOGLOBULIN IGE ALLERGEN PROFILE, MOLD MINI-PANEL ALLERGEN PROFILE NOVEL CORONAVIRUS LAB 1 - NASOPHARYNGEAL Screening for viral disease Relevant Orders NOVEL CORONAVIRUS LAB 1 - NASOPHARYNGEAL Reactive airway disease without 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, unspecified asthma severity, unspecified whether persistent Relevant Orders IMMUNOGLOBULIN IGE ALLERGEN PROFILE, MOLD MINI-PANEL ALLERGEN PROFILE HPI 11/12/22 - hx of Arthritis, OA, RA; was on Plaquenil; ff'd by Rheum Dr. Farrar - had CT Chest CTPE (had elev DDimer) on 08/06/22 c/o [facility] done at a time when she was treated for cough, sob, poss PNA: showing poss ILD, NSIP. - Nonsmoker; Hx of Asthma was on albuterol nebs prev. Current Outpatient Medications: albuterol (2.5 MG/3ML) 0.083% inhalation solution, albuterol ALBUTEROL SULFATE NEBU 0.042%, - Take as directed ALBUTEROL SULFATE NEBU [phone] Amara Troy 11-22-2009 [facility] ([id number]), Disp: , Rfl: amLODIPine 5 MG Tab tablet, , Disp: , Rfl: atorvastatin 40 MG tablet, atorvastatin 40 mg tablet take 1 tablet by mouth once daily, Disp: , Rfl: biotin 1000 MCG tablet, Take 1 tablet by mouth daily., Disp: , Rfl: Blood Glucose Monitoring Suppl (Contour Blood Glucose System) w/Device Kit, Dispense 1 kit. Dx: Type 1 DM - Controlled E10.9, Disp: , Rfl: clonazePAM 1 MG tablet, Take 1 mg by mouth daily as needed., Disp: , Rfl: Continuous Blood Gluc Sensor (FREESTYLE GERBER 14 DAY SENSOR) [facility] [place], , Disp: , Rfl: Diclofenac Sodium 1 % Gel gel, diclofenac VOLTAREN 1 % GEL apply topically twice daily as needed DICLOFENAC SODIUM [id number] Leandra Whitney RN 01-31-2014 [facility] ([id number]), Disp: , Rfl: Diclofenac Sodium 1 % Gel gel, apply 3 grams to THE PAINFUL AREA topically once daily for 28 DAYS, Disp: , Rfl: docusate 100 MG capsule, Take 1 capsule by mouth 2 times daily., Disp: , Rfl: ergocalciferol 1.25 MG ([id number] UT) capsule, Take by mouth., Disp: , Rfl: furOSEmide 20 MG tablet, furosemide 20 mg tablet take 1 tablet by mouth every other day, Disp: , Rfl: glucose blood test strips (ASCENSIA MICROFILL TEST) Strip strip, Test blood sugar(s) 6 times daily. Dx: Type 1 DM - Controlled E10.9 Insulin: Yes, Disp: , Rfl: Hydroxychloroquine 200 MG tablet, 1 po qod, Disp: 45 tablet, Rfl: 3 insulin glargine 100 UNIT/ML vial, 46 units every 24 hr for insulin pump failure, Disp: , Rfl: insulin lispro 100 UNIT/ML vial, Humalog U-100 Insulin 100 unit/mL subcutaneous solution USE DIRECTED IN INSULIN PUMP UP TO 110 UNITS DAILY, Disp: , Rfl: Insulin Syringe-Needle U-100 (INSULIN SYRINGE 1CC/31GX5/16 ) 31G X 5/16 1 ML Misc, use as directed if pump fails up to 6 times daily, Disp: , Rfl: lansoprazole [address] capsule, , Disp: , Rfl: losartan 100 MG tablet, , Disp: , Rfl: Multiple Vitamin (MULTI-VITAMINS) Tab, MULTIPLE VITAMIN MULTIVITAMINS TABS One tablet by mouth daily MULTIPLE VITAMIN [id number] Amara Troy 11-22-2010 [facility] ([id number]), Disp: , Rfl: nitroGLYCERIN 0.4 MG/SPRAY Solution, nitroglycerin NITROLINGUAL 0.4 MG/SPRAY SOLN 1 spray under tongue every 5min up to 3 X (400mcg per spray) NITROGLYCERIN [id number] Leon Seaman MD 11-30-2012 Debora Myers RN [facility] ([id number]), Disp: , Rfl: pramipexole 1 MG tablet, At bedtime., Disp: , Rfl: predniSONE 5 MG tablet, 8 po q AM for 1 day decrease by 1 pill a day until off - to be used on a PRN basis, Disp: 36 tablet, Rfl: 5 Probiotic capsule, Take 1 capsule by mouth daily., Disp: , Rfl: RA ASPIRIN 325 MG Tab tablet, , Disp: , Rfl: RA VITAMIN D-3 125 MCG (5000 UT) Cap capsule, , Disp: , Rfl: traMADol 50 MG Tab tablet, , Disp: , Rfl: No past medical history on file. No past surgical history on file. Social History Tobacco Use Smoking status: Never Smokeless tobacco: Never Substance Use Topics Alcohol use: Never No family history on file. Allergies Allergen Reactions Acetaminophen Amitriptyline Amoxicillin-Pot Clavulanate Cefadroxil Ephedrine Levofloxacin Oxycodone Sulfa Antibiotics Aspirin Dipyridamole Doxycycline Pregabalin Review of Systems Do you smoke?- never Oxygen use _no patient is benefiting from oxygen use. Do you have a CPAP -yes (not wearing for the last 18 yrs) [employer]- unkown Most recent CT - [facility] 2031) Most recent PFT- 09/09 [place] [facility]) Has your breathing changed?- no Dyspnea upon exertion- no Dyspnea at rest- no Cough- productive- yes clear Have you had the Covid 19 vaccine- yes Do you need a Medication refill? no Pt presents for review of Asthma Pt has Symbicort or spirivia maintenance inhaler Pt has rescue inhaler - nebulizer machine when needed New patient referred by Dr. Farrar to established care. Patient states when she uses Albuterol it makes her dizzy and she is unable to sleep Vitals: 11/12/22 1404 BP: 138/82 Pulse: 82 Resp: 15 SpO2: 97% Weight: 92.1 kg (203 lb) Height: 1.6 m (5' 3 ) Vital Signs Reviewed as noted. Physical Exam Vitals and nursing note reviewed. Constitutional: General: She is not in acute distress. Appearance: She is obese. She is not ill-appearing. HENT: Head: Normocephalic and atraumatic. Right Ear: External ear normal. Left Ear: External ear normal. Nose: No congestion or rhinorrhea. Mouth/Throat: Mouth: Mucous membranes are moist. Pharynx: Oropharynx is clear. No oropharyngeal exudate or posterior oropharyngeal erythema. Eyes: General: No scleral icterus. Neck: Vascular: No JVD. Trachea: No tracheal deviation. Cardiovascular: Rate and Rhythm: Normal rate and regular rhythm. Heart sounds: Normal heart sounds. Pulmonary: Effort: Pulmonary effort is normal. No respiratory distress. Breath sounds: No stridor. Examination of the left-lower field reveals rales. Rales present. No wheezing or rhonchi. Chest: Chest wall: No tenderness. Genitourinary: Comments: Deferred Musculoskeletal: Cervical back: Neck supple. Right lower leg: Edema present. Left lower leg: Edema present. Lymphadenopathy: Cervical: No cervical adenopathy. Skin: General: Skin is warm and dry. Coloration: Skin is not jaundiced. Neurological: Mental Status: She is alert and oriented to person, place, and time. Psychiatric: Mood and Affect: Mood normal. Behavior: Behavior normal. I personally reviewed selected chart notes, results, interpreted tests, imaging today before seeing the pt; reviewed and discussed w/ pt, questions answered - 08/06/22 [facility]: IMPRESSION No CT evidence of pulmonary embolism. Extensive fine reticular opacities throughout both lungs with multiple groundglass opacities and traction bronchiolectasis, raising concern for interstitial lung disease. 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 1.5 cm calcified lesion in the spleen. FINDINGS Lung parenchyma and airways: The central airways are patent. The bilateral lungs are remarkable for diffuse fine reticular opacities with peripheral lung and lung base predominance. There appears to be sparing of the immediate subpleural region in the left lung. Multiple groundglass opacities seen in the bilateral lungs predominantly involving the upper lobes. Difficult to evaluate possible tiny nodules in the presence of diffuse reticular opacities and groundglass opacities. No mass lesion identified. There appears to be mild traction bronchiolectasis. No significant architectural distortion or honeycombing. Pleural space: No pleural effusions or pneumothorax. Lower neck, lymph nodes, and mediastinum: The imaged thyroid gland is normal. No supraclavicular or axillary lymphadenopathy. There are multiple borderline enlarged mediastinal lymph nodes, likely reactive. Immunization Administrations COVID-19 bivalent vaccine (Pfizer) 12yr +, 30mcg/0.3mL 01/03/2022 (76 y.o.) COVID-19 monovalent vaccine (Pfizer) 12yr +, 30mcg/0.3mL 07/30/2021 (75 y.o.) COVID-19 monovalent vaccine, mRNA, Pfizer, 0.3 ML 06/06/2020 (74 y.o.) 06/28/2020 (74 y.o.) 01/13/2021 (75 y.o.) Return in about 8 weeks (around 01/07/2023). FOLLOW-UP Patient was advised to call with any questions or concerns. If symptoms worsen or fail to improve patient was advised to call for follow up in our office and/or PCP, or go to the Emergency Dept. Benefits, Risks, Contraindications, and Complications of recommended treatments were explained (and to call if prescriptions are not feasible); and the patient stated understanding and agreement to proceed with plan. 11/12/2022: I spent more than 45 mins: reviewed selected chart notes, results, interpreted tests, imaging today before seeing the pt; interviewing and examining pt; reviewed and discussed w/ pt, questions answered; counselling/educating pt/family/caregiver; ordering meds/tests as appropriate; documenting clinical information in the chart. Some Elements copied from previous notes. I have updated where appropriate, and all reflect current medical decision making from today's encounter. Note: This dictation was generated using [employer] voice recognition software. Please excuse any typographical, grammatical or spelling errors that may have occurred using the system Ivan Momin MD, MPH, [facility] Pulmonary/Critical Care Medicine [facility] 11/12/2022 documented in this encounter [facility] 11-10-2022 Note [facility] 10-27-2022 Note [facility] 10-27-2022 History of Present illness Narrative Radiology Service Progress Note PATIENT NAME: Mckayla Russo DATE OF SERVICE: October 27, 2022 TIME: 11:04 AM PATIENT IDENTITY VERIFICATION COMPLETED USING TWO (2) IDENTIFIERS: Name and Date of confirmed by patient verbally. FALL SCREENING: Has the patient had 2 falls in the last year or 1 fall with injury or currently using an Ambulatory Assistive Device (Walker, Cane, Wheelchair, Crutches, etc.)? No PATIENT GENDER DATA: Female. status: : No status: NO. PATIENT RELEVANT IMPLANT DATA REVIEWED: Not Applicable RADIOLOGY DEPARTMENT: Mammography PERIPHERAL IV DATA: Not applicable SIGNED BY: Suzanne Lozano Mammo Tech October 27, 2022 11:04 AM documented in this encounter [facility] 10-22-2022 Miscellaneous Notes Please assist in scheduling. Mammo order placed- please inform patient. Vida Pitt PA-C Pt calling to have pcp place mammo order. She is due anytime after 10/23. documented in this encounter [facility] 10-15-2022 Miscellaneous Notes Noted Sultana Harvey APRN.CNP Patient calling to let provider know she is scheduled to see DUANE Ronquillo on February 23. Carola Huang RN documented in this encounter [facility] 10-01-2022 Note [facility] 10-01-2022 History of Present illness Narrative This Team Access Model visit is a phone encounter. It required patient-provider interaction for the medical decision making as documented below. Patient agrees to the visit: Yes Patient Location: [place] CC: Patient presents with: [employer] Concerns HPI Mckayla Russo is a 77 year old female who is contacted today for a phone visit. This is an established patient of Dr. Darryn Anderson MD. Patient wanted to discuss today her concerns with medication changes regarding pulmonology and rheumatology. Saw Dr. Garcia with [facility] for interstitial lung disease resulting in ongoing shortness of breath. Per patient he was upset because rheumatology had decreased her hydroxychloroquine and he felt her RA was causing the lung concerns. Patient was then instructed to discuss this with her drying supervisor. Per patient, Dr. Farrar, her drying supervisor feels she does not need the HCQ twice a day and can go elsewhere for treatment if she disagrees. Patient without any new concerns but would like a consult to see a new drying supervisor because her joint pain is notably worse on the decreased hydroxychloroquine as well. Has not had an eye exam in a while as HCQ was decreased. REVIEW OF SYSTEMS See HPI PAST MEDICAL HISTORY Diagnosis Date Abnormal mammogram, unspecified left breast BPPV (benign paroxysmal positional vertigo) 02/11/2015 BPV (benign positional vertigo) CAD (coronary artery disease) Carotid stenosis CARPAL TUNNEL BILATERRAL 08/08/2005 Coronary artery disease involving bad river band coronary artery Dr. 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) 12/06/2018 Other and unspecified hyperlipidemia Other forms of migraine Other psoriasis Postsurgical percutaneous transluminal coronary angioplasty status Rheumatoid arthritis(714.0) RLS (restless legs syndrome) Stroke (cerebrum) (HCC) x3 Thoracic or lumbosacral neuritis or radiculitis, unspecified 03/01/2012 Type I (juvenile type) diabetes mellitus with neurological manifestations, not stated as 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.61) 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, 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) Unspecified asthma(493.90) Unspecified essential hypertension Unspecified hereditary and idiopathic peripheral neuropathy PAST SURGICAL HISTORY Procedure Laterality Date BREAST BIOPSY COLONOSCOPY FLX DX W/COLLJ SPEC WHEN PFRMD 02/26/2204 Colonoscopy COLONOSCOPY FLX DX W/COLLJ SPEC WHEN PFRMD 08/29/15 Colonoscopy COLONOSCOPY FLX DX W/COLLJ SPEC WHEN PFRMD 11/10/2018 Colonoscopy EGD 04/15/2002 ESOPHAGOGASTRODUODENOSCOPY TRANSORAL DIAGNOSTIC 11/10/2018 EGD EXC BREAST LES PREOP PLMT RAD MARKER OPEN 1 LES 03/2008 OPEN REPAIR OF ROTATOR CUFF CHRONIC left rotator cuff PAST SURGICAL HISTORY OF tonsilectomy and adenoidectomy PAST SURGICAL HISTORY OF right breast lumpectomy PAST SURGICAL HISTORY OF x 3 PAST SURGICAL HISTORY OF 1992 right thumb trigger finger PAST SURGICAL HISTORY OF hand surgery PAST SURGICAL HISTORY OF nose surgery PAST SURGICAL HISTORY OF age 17 axillary cyst removal PAST SURGICAL HISTORY OF 2000 heart cath with stent placement PAST SURGICAL HISTORY OF CARDIAC CAATH 2000, 2001, AND 2004 PREOP PLACEMENT NEEDLE LOC STEREOTACTIC CORE BIOPSY 02/24/08 LEFT - benign ALLERGIES Aggrenox [Aspirin-Dipyridamole], Amitriptyline, Cephalexin (Bulk), Cymbalta [Duloxetine], Doxycycline, Duricef [Cefadroxil], Ephedrine, Ilosone [Other], Iodine, Levaquin [Levofloxacin], Lyrica [Pregabalin], Nortriptyline, Oxycodone, Percocet [Oxycodone-Acetaminophen], and Sulfa (Sulfonamide Antibiotics) MEDICATIONS pramipexole (MIRAPEX) 1 mg tablet Take 2 tablets by mouth daily at bedtime. montelukast (SINGULAIR) 10 mg tablet Take 1 tablet by mouth daily at bedtime. clonazePAM (KLONOPIN) 1 mg tablet Take 1 tablet by mouth at bedtime as needed for up to 90 days. 04/03/22-Needs renewed insulin lispro (HUMALOG U-100 INSULIN) 100 unit/mL injection as directed in Insulin pump up to 110 units daily. Dx E10.65 atorvastatin (LIPITOR) 40 mg tablet Take 1 tablet by mouth once daily. clopidogrel (PLAVIX) 75 mg tablet Take 1 tablet by mouth once daily. lansoprazole (PREVACID) 30 mg capsule Take 1 capsule by mouth twice daily. diphenhydrAMINE (BENADRYL) 25 mg capsule Please take 2 tablets an hour prior to the contrast procedure (Patient not taking: Reported on 09/18/2022) nitroglycerin (NITROLINGUAL) 400 mcg/spray spray one every 5 minutes x3 as needed Bacillus coagulans/inulin (PROBIOTIC WITH PREBIOTIC ORAL) Take by mouth. blood sugar diagnostic (BLOOD GLUCOSE TEST) test strip Test blood sugar(s) 6 times daily. Dx: E 10.65, Z96.41 losartan (COZAAR) 100 mg tablet Take 1 tablet by mouth once daily. amLODIPine (NORVASC) 5 mg tablet Take 1 tablet by mouth once daily. hydrocortisone 2.5 % cream Apply to affected area once daily. ketoconazole (NIZORAL) 2 % shampoo aspirin 81 mg chewable tablet Take 1 tablet by mouth once daily. blood sugar diagnostic (CONTOUR TEST STRIPS) test strip Test blood sugar(s) 6 times daily. Dx: Type 1 DM - Controlled E10.9 Insulin: Yes hydrOXYchloroQUINE (PLAQUENIL) 200 mg tablet Take 1 tablet by mouth twice daily. (Patient taking differently: Take 200 mg by mouth once daily.) Cholecalciferol, Vitamin D3, 125 mcg (5,000 unit) cap Take 1 capsule by mouth once daily. Biotin 1 mg tab Take 1 tablet by mouth once daily. Blood-Glucose Meter (CONTOUR METER) monitoring kit Dispense 1 kit. Dx: Type 1 DM - Controlled E10.9 Insulin Syringe-Needle U-100 (BD ULTRAFINE INSULIN) 1 mL 31 gauge x / use as directed if pump fails up to 6 times daily (Patient not taking: Reported on 04/03/2022) multivitamin tablet Take 1 tablet by mouth once daily. acetaminophen (TYLENOL 8 HOUR) 650 mg CR tablet Take 1 tablet by mouth every 8 hours as needed. FAMILY HISTORY Problem Relation Age of Onset Cancer Mother breast (diagnosed mid 50's) Heart Mother valvular other (Other) Father leukemia (dx'd age 55) Asthma Paternal Grandmother Diabetes Paternal Grandmother Colon Cancer Other none other (autoimmune def) Daughter Social History Tobacco Use Smoking status: Never Smokeless tobacco: Never Substance Use Topics Alcohol use: No Drug use: No EXAM: Deferred physical exam as visit was completed over the phone Patient is speaking in complete sentences without obvious respiratory distress or audible wheezing. DATA REVIEWED: No new labs BP CONTROLLED (<130/80) Never done DIABETIC FOOT EXAM due on 10/02/2021 SPIROMETRY due on 11/21/2022 DTAP,TDAP,TD(2 - Td or Tdap) due on 06/09/2023 HBA1C due on 12/07/2022 URINE ALBUMIN:CREATININE RATIO due on 06/12/2023 LDL CHOLESTEROL due on 06/12/2023 DILATED RETINAL EXAM due on 07/26/2023 ANNUAL PCP TEAM CHRONIC DISEASE VISIT due on 09/19/2023 BONE DENSITY Completed INFLUENZA Completed ADVANCE DIRECTIVE DISCUSSION Completed HEPATITIS C SCREENING Completed SHINGRIX VACCINE Completed COVID-19 VACCINE Completed PNEUMOCOCCAL: 65+ Completed ASSESSMENT/PLAN: 1. Rheumatoid arthritis, involving unspecified site, unspecified whether rheumatoid factor present (HCC) - ICD9: 714.0, ICD10: M06.9 (primary diagnosis) - Discussed with PCP, Dr. Anderson, and decided to restart HCQ at previous dosage as this was effective and increase in pain and shortness of breath started after the decrease. - patient needs full eye exam SARAH as she is starting back on previous dose. - CONSULT TO RHEUM/IMMUN DISEASE 2. Interstitial lung disease (HCC) - ICD9: 515, ICD10: J84.9 As above - continue with recommendations by pulmonology - CONSULT TO RHEUM/IMMUN DISEASE Prescription instructions reviewed with patient as applicable. Potential red flag symptoms discussed with the patient. Reviewed appropriate action plan to take if red flag symptoms occur. Patient agreeable to treatment plan. During this patient visit I have spent approximately 20 minutes in counseling regarding treatment options, medications, and coordinating care. Sultana Harvey APRN.CNP documented in this encounter [facility] 09-29-2022 History of Present illness Narrative Images from the original note were not included. History of Present Illness Presence of Pain: complains of pain/discomfort Select Pain Scale: DVPRS (Defense and Veterans Pain Rating Scale) (Adult-Cognitively Intact) DVPRS: Rest: 8- severe pain Select Pain Scale: DVPRS (Defense and Veterans Pain Rating Scale) (Adult-Cognitively Intact). Total time spent in this encounter was 37 minutes. Patient is being evaluated for an unstable chronic illness that increase morbidity and mortality. Poor balance is the same and sometimes worse and worse now with leg. Headaches are better. Hand cramps are worse. Back pain is oh yeah. Just had her shots last week. Patient is here for 4 month F/U. Patient states she has not been feeling well. Had pneumonia and is seeing a inventory specialist. Having pain in fingers. Severe pain down left leg. Had injections last . No prednisone since last seen. I have been told that Tramadol is a high risk medication. I have no results of blood work I ordered. Review of Systems Constitutional: Negative. HENT: Negative. Eyes: Negative. Respiratory: Negative. Cardiovascular: Negative. Gastrointestinal: Negative. Endocrine: Negative. Genitourinary: Negative. Musculoskeletal: Positive for back pain and myalgias. Hand cramps Skin: Negative. Allergic/Immunologic: Negative. Neurological: History of 3 strokes with poor balance ever since and one stroke caused aphasia Hematological: Negative. Psychiatric/Behavioral: Positive for sleep disturbance. Vitals: Blood pressure (!) 138/98, temperature 98.7 F (37.1 C), temperature source Temporal, height 1.6 m (5' 3 ), weight 92.1 kg (203 lb 0.7 oz). Physical Exam Vitals and nursing note reviewed. Constitutional: Appearance: Normal appearance. She is obese. HENT: Head: Normocephalic and atraumatic. Right Ear: External ear normal. Left Ear: External ear normal. Nose: Nose normal. Mouth/Throat: Mouth: Mucous membranes are moist. Pharynx: Oropharynx is clear. Eyes: Extraocular Movements: Extraocular movements intact. Conjunctiva/sclera: Conjunctivae normal. Pupils: Pupils are equal, round, and reactive to light. Comments: glasses Cardiovascular: Rate and Rhythm: Normal rate and regular rhythm. Pulses: Radial pulses are 2+ on the right side and 2+ on the left side. Heart sounds: Murmur heard. Systolic murmur is present with a grade of 3/6. Pulmonary: Effort: Pulmonary effort is normal. Breath sounds: Examination of the right-lower field reveals rales. Examination of the left-lower field reveals rales. Rales present. Abdominal: General: Bowel sounds are normal. Palpations: Abdomen is soft. Comments: obese Musculoskeletal: Right shoulder: Tenderness and bony tenderness present. Decreased range of motion. Left shoulder: Tenderness and bony tenderness present. Decreased range of motion. Right upper arm: Tenderness present. Left upper arm: Tenderness present. Right elbow: Normal. Left elbow: Normal. Right forearm: Normal. Left forearm: Normal. Right wrist: Decreased range of motion. Left wrist: Decreased range of motion. Right hand: Deformity present. Decreased range of motion. Decreased strength. Left hand: Deformity present. Decreased range of motion. Decreased strength. Arms: Hands: Cervical back: Neck supple. Thoracic back: Decreased range of motion. Right upper leg: Normal. Left upper leg: Normal. Right knee: Crepitus present. Decreased range of motion. Left knee: Crepitus present. Decreased range of motion. Right lower leg: Normal. Left lower leg: Normal. Right ankle: Decreased range of motion. Left ankle: Decreased range of motion. Legs: Comments: Kyphosis T-spine Skin: General: Skin is warm and dry. Neurological: Mental Status: She is alert and oriented to person, place, and time. Cranial Nerves: Cranial nerves 2-12 are intact. Motor: Weakness present. Gait: Gait abnormal. 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 Walker Psychiatric: Mood and Affect: Mood normal. Behavior: Behavior normal. Thought Content: Thought content normal. Judgment: Judgment normal. Neurological Exam Mental Status Alert. Oriented to person, place, and time. Cranial Nerves CN II: Vision test: glasses. CN III, IV, : Extraocular movements intact bilaterally. Pupils equal round and reactive to light bilaterally. Gait Abnormal gait. 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 Walker. Assessment and Plan Encounter Diagnoses Name Primary? NSIP (nonspecific interstitial pneumonitis) Yes Fatty liver Hyperglycemia Metabolic acidosis Lumbar degenerative disc disease Osteoarthritis of cervical spine, unspecified spinal osteoarthritis 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 status Osteoarthritis of both hands, unspecified osteoarthritis type Osteoarthritis of both wrists, unspecified osteoarthritis type Rotator cuff arthropathy of both shoulders Thoracic degenerative disc disease Positive D dimer History of rheumatoid arthritis History of stroke 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 terminal manager current use of non-steroidal anti-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 (NSAID) Long-term use of high-risk medication Long-term use of Plaquenil On statin therapy 1. Time was spent with the patient today in education in re: to all their medical conditions. A complete H&P&ROS was obtained and is either in this note or in the EHR. Please do not hesitate to contact me with any questions or concerns re: this patient. Past History Past medical, surgical, family, and social histories have been reviewed and updated with the patient today and are located elsewhere in the medical record. 2. Thank you for allowing me to participate in the care of your patient. With your permission I would like to F/U with your patient. 3. Optho F/u per Dr. Grant Etienne 4. Chronic pain management F/U per Dr. Fuentes 5. Monitor Vit D level every 6 -12 months if remains low rec: eval by endo 6. Rx given for PT/OT - went terrible and patient is not doing HEP 7. ESR was normal at 30 8. Patient should have an eye exam prior to starting Plaquenil and every 6-12 months as long as taking Plaquenil 9. Albumin was low at 3.8 and is now normal at 10. CO2 is low at 21 11. Lidocaine pathces. 12. Pulmonary F/U per Jesse Garcia 13. UA shows 1+ 2+ protein and 100 mg/dl protein 14. Glucose was elevated at 141 and still is at 169 15. CRP was negative at 0.66 16. Negative RF, SUSI. CCP, Celiac, ANCA, 17. Uric acid was normal at 3.8 18. STEFFANY level was normal at 46 19. CXR: shows no hilar adenopathy. 20. Cardiology F/U per Dr. Seaman 22. 90 day supply on medications 23. Neuro f/U per Dr. Jones 24. Patient declines referral to hand surgery 25. Patient declines cortisone shot 26. D-dimer is elevated at 1290 27. Patient is taking prebiotic and probiotic 28. Patient is going to F/U with PCP about HTN. 29. At patient's request will set up with Pulmonary 30. Lab on or about 01/13/2023 31. F/U with me in 4 months 32. Call if need Rx's documented in this encounter [facility] 09-18-2022 Note [facility] 09-18-2022 History of Present illness Narrative Medicare Yearly Visit Medical B eligibilty date age 66 Date of last exam none in the past year. PAST MEDICAL HISTORY Diagnosis Date Abnormal mammogram, unspecified left breast BPPV (benign paroxysmal positional vertigo) 02/11/2015 BPV (benign positional vertigo) CAD (coronary artery disease) Carotid stenosis CARPAL TUNNEL BILATERRAL 08/08/2005 Coronary artery disease involving bad river band coronary artery Dr. Pederson follows regularly; S/P PTCA and stenting at [facility] [place], 2001 Coronary atherosclerosis of unspecified type of vessel, bad river band or graft Disorder of bone and cartilage, unspecified Diverticulosis of colon (without mention of hemorrhage) DKA (diabetic ketoacidoses) 09/28/2019 Esophagitis External hemorrhoids without mention of 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 Insomnia Internal hemorrhoids without mention of 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 Mammographic microcalcification Mild intermittent asthma without 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 Adult onset Mild nonproliferative diabetic retinopathy of both eyes ([facility]) 12/06/2018 Other and unspecified hyperlipidemia Other forms of migraine Other psoriasis Postsurgical percutaneous transluminal coronary angioplasty status Rheumatoid arthritis(714.0) RLS (restless legs syndrome) 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 Thoracic or lumbosacral neuritis or radiculitis, unspecified 03/01/2012 Type I (juvenile type) diabetes mellitus with neurological manifestations, not stated as 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.61) 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, 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) Unspecified asthma(493.90) Unspecified essential hypertension Unspecified hereditary and idiopathic peripheral neuropathy PAST SURGICAL HISTORY Procedure Laterality Date BREAST BIOPSY COLONOSCOPY FLX DX W/COLLJ SPEC WHEN PFRMD 02/26/2204 Colonoscopy COLONOSCOPY FLX DX W/COLLJ SPEC WHEN PFRMD 08/29/15 Colonoscopy COLONOSCOPY FLX DX W/COLLJ SPEC WHEN PFRMD 11/10/2018 Colonoscopy EGD 04/15/2002 ESOPHAGOGASTRODUODENOSCOPY TRANSORAL DIAGNOSTIC 11/10/2018 EGD EXC BREAST LES PREOP PLMT RAD MARKER OPEN 1 LES 03/2008 OPEN REPAIR OF ROTATOR CUFF CHRONIC left rotator cuff PAST SURGICAL HISTORY OF tonsilectomy and adenoidectomy PAST SURGICAL HISTORY OF right breast lumpectomy PAST SURGICAL HISTORY OF x 3 PAST SURGICAL HISTORY OF 1992 right thumb trigger finger PAST SURGICAL HISTORY OF hand surgery PAST SURGICAL HISTORY OF nose surgery PAST SURGICAL HISTORY OF age 17 axillary cyst removal PAST SURGICAL HISTORY OF 2000 heart cath with stent placement PAST SURGICAL HISTORY OF CARDIAC CAATH 2000, 2001, AND 2004 PREOP PLACEMENT NEEDLE LOC STEREOTACTIC CORE BIOPSY 02/24/08 LEFT - benign ALLERGIES: Aggrenox [Aspirin-Dipyridamole], Amitriptyline, Cephalexin (Bulk), Cymbalta [Duloxetine], Doxycycline, Duricef [Cefadroxil], Ephedrine, Ilosone [Other], Iodine, Levaquin [Levofloxacin], Lyrica [Pregabalin], Nortriptyline, Oxycodone, Percocet [Oxycodone-Acetaminophen], and Sulfa (Sulfonamide Antibiotics) Medications reviewed: Yes FAMILY HISTORY Problem Relation Age of Onset Cancer Mother breast (diagnosed mid 50's) Heart Mother valvular other (Other) Father leukemia (dx'd age 55) Asthma Paternal Grandmother Diabetes Paternal Grandmother Colon Cancer Other none other (autoimmune def) Daughter SOCIAL HISTORY: Social History Tobacco Use Smoking status: Never Smokeless tobacco: Never Substance Use Topics Alcohol use: No Drug use: No Mckayla does chair exercises,. Has balance issues so cannot walk for exercise she had vertigo since 2009. She also has severe back issues. She watches her diet for sodium, low fat and low cholesterol most of the time. List of current specialists seen Endo: Dr Palm: Pain Mx Dr Harding heart- Greta, neuro- Dr. Rueda eye Dr etienne. Dr Rangel- foot doctor. Chinese Language Professor- Dr payne End of Live Planning discussed including patients advanced directive wishes: Yes I am willing to follow Mckayla's advanced directives. PHQ-2 / Depression screen She in the past two weeks denies having felt down, depressed, hopeless, or with little interest or pleasure in doing things. Functional Ability/Safety Screen 1. Was the patient's timed Up and Go test unsteady or longer than 30 seconds? No 2. Does the patient need help with the phone, transportation, shopping,preparing meals, housework, laundry, medications or managing money? yes 3. Does your home have rugs in the hallway, lack of grab bars in the bathroom, lack of handrails on the stairs or have poor lighting? No Hearing Evaluation: within normal limits and normal PHYSICAL EXAM BP 132/72 (BP Site: Right Arm, BP Position: Sitting, BP Cuff Size: Large Adult) Pulse 64 Resp 18 Ht 158 cm (5' 2.21 ) Wt 84.8 kg (187 lb) BMI 33.98 kg/m Alert and oriented X 3: YES Body mass index is 33.98 kg/m . ASSESSMENT/PLAN: 77 year old female The following prevention plan was discussed during the office visit and provided to the patient: - Lipid panel - Glaucoma screening Darryn Anderson MD Reason for Visit Patient presents with: Medicare Wellness Exam Mckayla Russo is a 77 year old female who presents here today for Above Complaints.. Health Maintenance BP CONTROLLED (<130/80) DIABETIC FOOT EXAM ADVANCE DIRECTIVE DISCUSSION HPI Recently she had pneumonia at that time Dr Garcia said that she had ground glass of the CT and suggested that it was actually from rheumatoid arthritis. Her blood pressure was reduced by rheumatology and Dr. Garcia thinks it needs to be increased. She did not need oxygen. Balance is a huge issues- has vertigo, neuropathy from Diabetes Mellitus and back. Cannot use case uses a rollator as much as possible. Sitting exercising. She has the band that helps her too. Since seeing me she stopped the gabapentin, her leg swelling is better, she was taking the medication for rls for which she is on mirapex. That is working for her HTN: BP controlled today. Checks BP at home. Compliant with medications. Denies any chest pain, palpitations, SOB, swelling in the feet. Careful with diet to avoid salt, trying to eat more fruits and vegetables, exercises regularly Kidney function is good., no swelling of legs any more. Breathing is better she is seeing Dr Garcia. 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 Diabetes Mellitus: sugars are better controlled. She is on a new pump. 780 G. It is very good and helping her a lot. No problem-specific Assessment & Plan notes found for this encounter. PAST MEDICAL HISTORY Diagnosis Date Abnormal mammogram, unspecified left breast BPPV (benign paroxysmal positional vertigo) 02/11/2015 BPV (benign positional vertigo) CAD (coronary artery disease) Carotid stenosis CARPAL TUNNEL BILATERRAL 08/08/2005 Coronary artery disease involving bad river band coronary artery Dr. Pederson follows regularly; S/P PTCA and stenting at [facility] [place], 2001 Coronary atherosclerosis of unspecified type of vessel, bad river band or graft Disorder of bone and cartilage, unspecified Diverticulosis of colon (without mention of hemorrhage) DKA (diabetic ketoacidoses) 09/28/2019 Esophagitis External hemorrhoids without mention of 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 Insomnia Internal hemorrhoids without mention of 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 Mammographic microcalcification Mild intermittent asthma without 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 Adult onset 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) 12/06/2018 Other and unspecified hyperlipidemia Other forms of migraine Other psoriasis Postsurgical percutaneous transluminal coronary angioplasty status Rheumatoid arthritis(714.0) RLS (restless legs syndrome) Stroke (cerebrum) (HCC) x3 Thoracic or lumbosacral neuritis or radiculitis, unspecified 03/01/2012 Type I (juvenile type) diabetes mellitus with neurological manifestations, not stated as 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.61) 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, 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) Unspecified asthma(493.90) Unspecified essential hypertension Unspecified hereditary and idiopathic peripheral neuropathy PAST SURGICAL HISTORY Procedure Laterality Date BREAST BIOPSY COLONOSCOPY FLX DX W/COLLJ SPEC WHEN PFRMD 02/26/2204 Colonoscopy COLONOSCOPY FLX DX W/COLLJ SPEC WHEN PFRMD 08/29/15 Colonoscopy COLONOSCOPY FLX DX W/COLLJ SPEC WHEN PFRMD 11/10/2018 Colonoscopy EGD 04/15/2002 ESOPHAGOGASTRODUODENOSCOPY TRANSORAL DIAGNOSTIC 11/10/2018 EGD EXC BREAST LES PREOP PLMT RAD MARKER OPEN 1 LES 03/2008 OPEN REPAIR OF ROTATOR CUFF CHRONIC left rotator cuff PAST SURGICAL HISTORY OF tonsilectomy and adenoidectomy PAST SURGICAL HISTORY OF right breast lumpectomy PAST SURGICAL HISTORY OF x 3 PAST SURGICAL HISTORY OF 1992 right thumb trigger finger PAST SURGICAL HISTORY OF hand surgery PAST SURGICAL HISTORY OF nose surgery PAST SURGICAL HISTORY OF age 17 axillary cyst removal PAST SURGICAL HISTORY OF 2000 heart cath with stent placement PAST SURGICAL HISTORY OF CARDIAC CAATH 2000, 2001, AND 2004 PREOP PLACEMENT NEEDLE LOC STEREOTACTIC CORE BIOPSY 02/24/08 LEFT - benign FAMILY HISTORY Problem Relation Age of Onset Cancer Mother breast (diagnosed mid 50's) Heart Mother valvular other (Other) Father leukemia (dx'd age 55) Asthma Paternal Grandmother Diabetes Paternal Grandmother Colon Cancer Other none other (autoimmune def) Daughter Social History Tobacco Use Smoking status: Never Smokeless tobacco: Never Substance Use Topics Alcohol use: No Drug use: No Past medical history, appointments, medications, allergies reviewed. Pertinent Lab/Diagnostic Studies are reviewed and discussed today Current Outpatient Medications: pramipexole (MIRAPEX) 1 mg tablet montelukast (SINGULAIR) 10 mg tablet nitroglycerin (NITROLINGUAL) 400 mcg/spray spray clonazePAM (KLONOPIN) 1 mg tablet Bacillus coagulans/inulin (PROBIOTIC WITH PREBIOTIC ORAL) losartan (COZAAR) 100 mg tablet insulin lispro (HUMALOG U-100 INSULIN) 100 unit/mL injection amLODIPine (NORVASC) 5 mg tablet atorvastatin (LIPITOR) 40 mg tablet clopidogrel (PLAVIX) 75 mg tablet hydrocortisone 2.5 % cream ketoconazole (NIZORAL) 2 % shampoo lansoprazole (PREVACID) 30 mg capsule aspirin 81 mg chewable tablet hydrOXYchloroQUINE (PLAQUENIL) 200 mg tablet Cholecalciferol, Vitamin D3, 125 mcg (5,000 unit) cap multivitamin tablet acetaminophen (TYLENOL 8 HOUR) 650 mg CR tablet diphenhydrAMINE (BENADRYL) 25 mg capsule blood sugar diagnostic (BLOOD GLUCOSE TEST) test strip blood sugar diagnostic (CONTOUR TEST STRIPS) test strip Biotin 1 mg tab Blood-Glucose Meter (CONTOUR METER) monitoring kit Insulin Syringe-Needle U-100 (BD ULTRAFINE INSULIN) 1 mL 31 gauge x 5/16 Review of Systems CONSTITUTIONAL: No fevers, chills night sweats, unintended weight loss CARDIOVASCULAR: No chest pain, dyspnea, palpitations, orthopnea, PND, ankle edema. PULM: No dyspnea, unexplained cough. GI: No dysphagia/odynophagia, problematic reflux, constipation, diarrhea, changes in stool habits, hematochezia, melena. : No new urinary complaints, including dysuria, gross hematuria or pyuria. NEURO: No new balance problems, peripheral weakness/paresthesias or numbness of concern. Physical Exam BP 132/72 (BP Site: Right Arm, BP Position: Sitting, BP Cuff Size: Large Adult) Pulse 64 Resp 18 Ht 158 cm (5' 2.21 ) Wt 84.8 kg (187 lb) BMI 33.98 kg/m General appearance: Well appearing, alert, in no acute distress, well nourished. Skin: Skin color, texture, turgor normal, no suspicious rashes or lesions Head: Normocephalic, no masses, lesions, tenderness or abnormalities Eyes: Anicteric sclera. Pupils are equally round and reactive to light. Extraocular movements are intact. Lungs: Lungs clear to auscultation. No wheezing, rhonchi, rales Heart: RRR without murmur, gallop, or rubs. Extremities: No deformities, edema, skin discoloration, clubbing or cyanosis. Good capillary refill. ASSESSMENT/PLAN: 1. Medicare annual wellness visit, subsequent - ICD9: V70.0, ICD10: Z00.00 (primary diagnosis) - Counseled on healthy diet and regular exercise - Calcium intake with supplements or by diet of 1000 mg/day for under 50, 5790-8066 mg/day for 50+ 2. Anxiety state - ICD9: 300.00, ICD10: F41.1 - CLONAZEPAM 1 MG TABLET 3. Essential hypertension - ICD9: 401.9, ICD10: I10 -Usually this is well controlled - Recommend home blood pressure monitoring, to bring results to next visit - Encouraged sodium restriction, DASH or Mediterranean diet - Recommend regular aerobic exercise 4. Type 1 diabetes mellitus with diabetic neuropathy (HCC) - ICD9: 250.61, 357.2, ICD10: E10.40 She follows up with the process automation engineer to follow-up with them - INSULIN LISPRO (U-100) 100 UNIT/ML SUBCUTANEOUS SOLUTION 5. Mixed hyperlipidemia - ICD9: 272.2, ICD10: E78.2 - Controlled - Counseled on healthy diet and regular exercise - ATORVASTATIN 40 MG TABLET 6. Gastroesophageal reflux disease without esophagitis - ICD9: 530.81, ICD10: K21.9 - Discussed lifestyle modifications including losing weight, limiting caffeine, no meals three hours before sleep, and head of bed elevation -Refilled LANSOPRAZOLE 30 MG CAPSULE,DELAYED RELEASE For her lung issues she needs to probably increase the Plaquenil. For the restless legs continue the Mirapex and stop the gabapentin Darryn Anderson MD documented in this encounter [facility] 08-20-2022 Miscellaneous Notes Spoke with pt and information listed below given. Pt verbalizes understanding. Mia Ni LPN Mailed as requested. Patient calling back and asking to have rx mailed to her home address which is correct in the computer. Patient has not had medication for past 2 weeks, she is thinking about changing pharmacy. Please advise Last OV: 08/04/22 - Next scheduled appt: 09/18/22 Patient has been identified by name and date of : Yes Requested Prescriptions Pending Prescriptions Disp Refills pramipexole (MIRAPEX) 1 mg tablet 180 tablet 1 Sig: Take 2 tablets by mouth daily at bedtime. RX INSTRUCTIONS: Patient aware RX will be sent to pharmacy. No need to notify patient. Nahomi Fuller LPN documented in this encounter [facility] 08-08-2022 Miscellaneous Notes The following approved medication requests have been transmitted electronically. Requested Prescriptions Signed Prescriptions Disp Refills fluticasone-salmeterol (ADVAIR DISKUS) 100-50 mcg/dose inhaler 1 Each 3 Sig: Inhale 1 Puff as instructed twice daily. Rinse mouth out after use with water. Authorizing Provider: JEAN-PIERRE FLANNERY APRN.CNP documented in this encounter [facility] 08-08-2022 Miscellaneous Notes Patient reports she tried to schedule an appt with [facility], but was told they need referral and have not received her information. Faxed ov notes, test results, insur info, and referral to [facility] at fax # [phone], per pt request. documented in this encounter [facility] 08-07-2022 Miscellaneous Notes Summary: New ILD Consult Interstitial Lung Disease Referral Intake Mckayla Russo [id number] August 07, 2022 8:32 AM Schedulers: --Please schedule patient with (ILD physicians: Dr. Dave Rincon, Dr. Rajan Oh, Dr. Adelfo Munroe, Dr. Ada Donato, Dr. Lizandro Ayala, Dr. Ilene Casillas, Dr. Chavez Monroe, Dr. Bryan Perla, Dr. Doug Mckeon, Dr Roslyn Chicas, Dr Patricia Armenta or Dr. 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 No Have you been told by your physician that your lung disease is due to an occupational or work exposure? No Have you ever been deployed? No *Please remember to give the authorization for release of medical records to your doctor(s), and also obtain your CT(s) on a disc from the radiology department and hand carry this to your appointment. Diana Strong RN documented in this encounter [facility] 08-06-2022 Note [facility] 08-06-2022 History of Present illness Narrative Radiology Service Progress Note DATE OF SERVICE: August 06, 2022 TIME: 3:10 PM PATIENT IDENTITY VERIFICATION COMPLETED USING TWO (2) STANDARD IDENTIFIERS: Name and Date of confirmed by patient verbally. FALL SCREENING: Has the patient had 2 falls in the last year or 1 fall with injury or currently using an Ambulatory Assistive Device (Walker, Cane, Wheelchair, Crutches, etc.)? No PATIENT GENDER DATA: Female. status: : No status: NO. PATIENT RELEVANT IMPLANT DATA REVIEWED: Yes ALLERGIES: Reviewed and unchanged CONTRAST ALLERGY: NO. EXAM: CT -CONTRAST INDUCED NEPHROPATHY RISK FACTORS: Patient age > 60 years CREATININE: Creatinine Date Value Ref Range Status 08/04/2022 0.58 0.58 - 0.96 mg/dL Final 06/12/2022 0.63 0.58 - 0.96 mg/dL Final 02/07/2022 0.66 0.58 - 0.96 mg/dL Final Estimated Glomerular Filtration Rate Date Value Ref Range Status 08/04/2022 94 >=60 mL/min/1.73m Final Comment: Estimated Glomerular Filtration Rate (eGFR) is calculated using the 2020 CKD-EPI creatinine equation. This equation utilizes serum creatinine, sex, and age as parameters. The creatinine assay has traceable calibration to isotope dilution-mass spectrometry. Refer to KDIGO guidelines for clinical interpretation. In patients with unstable renal function, e.g. those with acute kidney injury, the eGFR may not accurately reflect actual GFR. eGFR- Date Value Ref Range Status 03/01/2021 >60 Final P.O.C.T. RESULTS: POC done: Yes, See Lab Tab August 06, 2022 TREATMENT: N/A PERIPHERAL IV DATA: Ambulatory: A peripheral IV was started in the Left antecubital site with a Angio cath: 18 gauge. RADIOLOGY DEPARTMENT: CT; Exam(s) Completed: PE Study SIGNATURE: RT Frank(R) PATIENT NAME: Mckayla Russo DATE: August 06, 2022 TIME: 3:10 PM documented in this encounter [facility] 08-06-2022 Miscellaneous Notes Patient notified. Please remind patient that as she is taking steroids today for prior to her CT scan she needs to closely monitor her blood sugar. I would recommend calling her process automation engineer and letting her know you are getting a very large amount of steroids today in 3 different doses in case she has any recommendations for her insulin. Thank you Sultana Harvey APRN.CNP documented in this encounter [facility] 08-04-2022 Note [facility] 08-04-2022 Note [facility] 04-17-2023 History of Present illness Narrative CC: Patient presents with: Recheck: SOB follow up HPI Mckayla Russo is a 77 year old female complex patient who presents today for continuation of shortness of breath and fatigue. Diagnosed with bilateral lobe pneumonia on 07/09 was treated with augmentin and zpack. Tried prednisone without improvement. Reports getting hives after an albuterol nebulizer treatment so only using her albuterol inhaler now. Nebulizer system, per patient, is very old. Still with shortness of breath on exertion, pain to chest wall with cough and deep breathing but reproducible, cough persistent still at night affecting her sleep, soft non formed stools multiple times over the last few days, wheezing but slightly improved, and has had a 9 pound weight loss in a 2 weeks because she has not felt very well. Denies fever, chills, chest pressure, change in chronic intermittent dizziness, change in chronic dependent edema, palpitations, or any other new symptoms. REVIEW OF SYSTEMS General: no fevers, no chills, no night sweats, no recurrent infections, no change in appetite, and no significant changes in weight Respiratory: See HPI Cardiovascular: no chest pressure and no palpitations GI: No nausea, vomiting, or diarrhea Neurologic: No headache, weakness, numbness, tingling, dizziness, memory loss, syncope. PAST MEDICAL HISTORY Diagnosis Date Abnormal mammogram, unspecified left breast BPPV (benign paroxysmal positional vertigo) 02/11/2015 BPV (benign positional vertigo) CAD (coronary artery disease) Carotid stenosis CARPAL TUNNEL BILATERRAL 08/08/2005 Coronary artery disease involving bad river band coronary artery Dr. Pederson follows regularly; S/P PTCA and stenting at [facility] [place], 2001 Coronary atherosclerosis of unspecified type of vessel, bad river band or graft Disorder of bone and cartilage, unspecified Diverticulosis of colon (without mention of hemorrhage) DKA (diabetic ketoacidoses) 09/28/2019 Esophagitis External hemorrhoids without mention of 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 Insomnia Internal hemorrhoids without mention of 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 Mammographic microcalcification Mild intermittent asthma without 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 Adult onset Mild nonproliferative diabetic retinopathy of both eyes ([facility]) 12/06/2018 Other and unspecified hyperlipidemia Other forms of migraine Other psoriasis Postsurgical percutaneous transluminal coronary angioplasty status Rheumatoid arthritis(714.0) RLS (restless legs syndrome) 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 Thoracic or lumbosacral neuritis or radiculitis, unspecified 03/01/2012 Type I (juvenile type) diabetes mellitus with neurological manifestations, not stated as 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.61) 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, 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) Unspecified asthma(493.90) Unspecified essential hypertension Unspecified hereditary and idiopathic peripheral neuropathy PAST SURGICAL HISTORY Procedure Laterality Date BREAST BIOPSY COLONOSCOPY FLX DX W/COLLJ SPEC WHEN PFRMD 02/26/2204 Colonoscopy COLONOSCOPY FLX DX W/COLLJ SPEC WHEN PFRMD 08/29/15 Colonoscopy COLONOSCOPY FLX DX W/COLLJ SPEC WHEN PFRMD 11/10/2018 Colonoscopy EGD 04/15/2002 ESOPHAGOGASTRODUODENOSCOPY TRANSORAL DIAGNOSTIC 11/10/2018 EGD EXC BREAST LES PREOP PLMT RAD MARKER OPEN 1 LES 03/2008 OPEN REPAIR OF ROTATOR CUFF CHRONIC left rotator cuff PAST SURGICAL HISTORY OF tonsilectomy and adenoidectomy PAST SURGICAL HISTORY OF right breast lumpectomy PAST SURGICAL HISTORY OF x 3 PAST SURGICAL HISTORY OF 1992 right thumb trigger finger PAST SURGICAL HISTORY OF hand surgery PAST SURGICAL HISTORY OF nose surgery PAST SURGICAL HISTORY OF age 17 axillary cyst removal PAST SURGICAL HISTORY OF 2000 heart cath with stent placement PAST SURGICAL HISTORY OF CARDIAC CAATH 2000, 2001, AND 2004 PREOP PLACEMENT NEEDLE LOC STEREOTACTIC CORE BIOPSY 02/24/08 LEFT - benign ALLERGIES Aggrenox [Aspirin-Dipyridamole], Amitriptyline, Cephalexin (Bulk), Cymbalta [Duloxetine], Doxycycline, Duricef [Cefadroxil], Ephedrine, Ilosone [Other], Iodine, Levaquin [Levofloxacin], Lyrica [Pregabalin], Nortriptyline, Oxycodone, Percocet [Oxycodone-Acetaminophen], and Sulfa (Sulfonamide Antibiotics) MEDICATIONS albuterol (PROVENTIL) 2.5 mg /3 mL (0.083 %) nebulizer solution Use 3 mL via nebulizer every 4 hours as needed for wheezing/shortness of breath. Use over 5-15minutes. predniSONE (DELTASONE) 20 mg tablet Take 1 tablet by mouth once daily. albuterol HFA (PROVENTIL HFA, VENTOLIN HFA) 90 mcg/actuation inhaler Inhale 2 Puffs as instructed every 4 hours as needed for wheezing/shortness of breath. furosemide (LASIX) 20 mg tablet Take 1 tablet by mouth once daily as needed (edema). potassium chloride (K-TAB) 10 mEq tablet Take 1 tablet by mouth once daily as needed. Take with Lasix/Furosemide. gabapentin (NEURONTIN) 400 mg capsule Take 1 capsule by mouth twice daily for 180 days. montelukast (SINGULAIR) 10 mg tablet Take 1 tablet by mouth daily at bedtime. nitroglycerin (NITROLINGUAL) 400 mcg/spray spray one every 5 minutes x3 as needed clonazePAM (KLONOPIN) 1 mg tablet Take 1 tablet by mouth at bedtime as needed for up to 90 days. 04/03/22-Needs renewed Bacillus coagulans/inulin (PROBIOTIC WITH PREBIOTIC ORAL) Take by mouth. pramipexole (MIRAPEX) 1 mg tablet Take 2 tablets by mouth daily at bedtime. blood sugar diagnostic (BLOOD GLUCOSE TEST) test strip Test blood sugar(s) 6 times daily. Dx: E 10.65, Z96.41 losartan (COZAAR) 100 mg tablet Take 1 tablet by mouth once daily. insulin lispro (HUMALOG U-100 INSULIN) 100 unit/mL injection as directed in Insulin pump up to 110 units daily. Dx E10.65 amLODIPine (NORVASC) 5 mg tablet Take 1 tablet by mouth once daily. atorvastatin (LIPITOR) 40 mg tablet Take 1 tablet by mouth once daily. clopidogrel (PLAVIX) 75 mg tablet Take 1 tablet by mouth once daily. hydrocortisone 2.5 % cream Apply to affected area once daily. ketoconazole (NIZORAL) 2 % shampoo lansoprazole (PREVACID) 30 mg capsule take 1 capsule by mouth twice a day aspirin 81 mg chewable tablet Take 1 tablet by mouth once daily. blood sugar diagnostic (CONTOUR TEST STRIPS) test strip Test blood sugar(s) 6 times daily. Dx: Type 1 DM - Controlled E10.9 Insulin: Yes hydrOXYchloroQUINE (PLAQUENIL) 200 mg tablet Take 1 tablet by mouth twice daily. (Patient taking differently: Take 200 mg by mouth once daily.) Cholecalciferol, Vitamin D3, 125 mcg (5,000 unit) cap Take 1 capsule by mouth once daily. Biotin 1 mg tab Take 1 tablet by mouth once daily. Blood-Glucose Meter (CONTOUR METER) monitoring kit Dispense 1 kit. Dx: Type 1 DM - Controlled E10.9 Insulin Syringe-Needle U-100 (BD ULTRAFINE INSULIN) 1 mL 31 gauge x 09/02 use as directed if pump fails up to 6 times daily (Patient not taking: Reported on 04/03/2022) multivitamin tablet Take 1 tablet by mouth once daily. acetaminophen (TYLENOL 8 HOUR) 650 mg CR tablet Take 1 tablet by mouth every 8 hours as needed. FAMILY HISTORY Problem Relation Age of Onset Cancer Mother breast (diagnosed mid 50's) Heart Mother valvular other (Other) Father leukemia (dx'd age 55) Asthma Paternal Grandmother Diabetes Paternal Grandmother Colon Cancer Other none other (autoimmune def) Daughter Social History Tobacco Use Smoking status: Never Smokeless tobacco: Never Substance Use Topics Alcohol use: No Drug use: No PHYSICAL EXAM BP 136/86 Pulse 94 Temp 36.7 C (98.1 F) (Temporal) Resp 16 Wt 86.6 kg (191 lb) SpO2 94% BMI 36.09 kg/m General Appearance: well appearing, in no acute distress, alert Skin: Skin color, texture, turgor normal for age; Eyes: conjunctiva pink and moist, no icterus, sclera white, non-injected Lungs: Lungs clear to auscultation. No wheezing, rhonchi, rales, but difficult to auscultate bases as deep breathing produced a nonproductive cough. Tenderness with palpation to bilateral chest wall without crepitus or deformity. Heart: RRR without murmur, gallop, or rubs. No ectopy Health maintenance reviewed with patient: BP CONTROLLED (<130/80) Never done DIABETIC FOOT EXAM due on 10/02/2021 ADVANCE DIRECTIVE DISCUSSION due on 04/20/2022 SPIROMETRY due on 11/21/2022 DTAP,TDAP,TD(2 - Td or Tdap) due on 06/09/2023 HBA1C due on 12/07/2022 URINE ALBUMIN:CREATININE RATIO due on 06/12/2023 LDL CHOLESTEROL due on 06/12/2023 ANNUAL PCP TEAM CHRONIC DISEASE VISIT due on 07/22/2023 DILATED RETINAL EXAM due on 07/26/2023 BONE DENSITY Completed INFLUENZA Completed HEPATITIS C SCREENING Completed SHINGRIX VACCINE Completed COVID-19 VACCINE Completed PNEUMOCOCCAL: 65+ Completed DATA REVIEWED: Most recent labs and imaging results. ASSESSMENT/PLAN: 1. Pneumonia of both lungs due to infectious organism, unspecified part of lung - ICD9: 483.8, ICD10: J18.9 (primary diagnosis) Some improvement but still with shortness of breath especially with exertion. Will repeat chest xray. 2. Shortness of breath - ICD9: 786.05, ICD10: R06.02 - not improving, will check for other etiology. - if everything normal and CXR improving will start on low dose advair. - XR CHEST 2V FRONTAL/LAT - BASIC METABOLIC PNL - CBC + DIFF - NT PRO BNP - D-DIMER 3. Chest pain on breathing - ICD9: 786.52, ICD10: R07.1 - reproducible with palpation but as everything is ongoing will evaluate further. - NT PRO BNP - D-DIMER 4. Cough, unspecified type - ICD9: 786.2, ICD10: R05.9 - XR CHEST 2V FRONTAL/LAT Prescription instructions reviewed with patient as applicable. Potential red flag symptoms discussed with the patient. Reviewed appropriate action plan to take if red flag symptoms occur. Patient agreeable to treatment plan. Sultana Harvey APRN.CNP documented in this encounter [facility] 07-31-2022 Miscellaneous Notes Patient notified. Have patient update us on how she is feeling on Thursday. If not better she needs to come in and be seen. Thank you Sultana Harvey APRN.CNP Spoke with patient, states she doesn't feel as if she is worse. She thought her symptoms would be resolved by now. Patient did state that she took the prednisone as ordered but doesn't feel that did much. Patient started using the nebulizer yesterday and states if ok she will continue to use that and call in on Thursday. Patient doesn't feel she is bad enough to be seen today but if Sultana wants to see her she will come in. Please advise Patient really needs to be seen to see what further treatment is appropriate. Thank you Sultana Harvey APRN.CNP Patient was seen by Sultana Harvey CNP on 07/21 for pneumonia follow up. At that time pt's pneumonia was improving and patient was continuing albuterol inhaler as needed. F/U CXR ordered for 4 weeks, or sooner if needed. Patient calling today to state she is worse again. Reports: -coughing-day and night-poor sleep -green sputum -mild SOB at rest, SOB with exertion -Reports hard time getting breath after coughing episode -wheezing, especially when laying down-can hear herself wheezing at night -denies fever -reports had an asthma attack on 07/26-hasn't had asthma attack in years prior to that -reports fell on -no injury -talking full sentences on phone-no distress heard on phone During phone call this nurse asked if pt was using albuterol nebulizer machine as ordered and pt states she has not used it at all. This nurse instructed pt and how to do this and pt is now completing nebulizer treatment-enc pt to do this for up to 15 minutes. Patient asking Sultana Harvey to advise. Pt asking if should get CXR now/sooner? Please call patient or with advise. Thank you. documented in this encounter [facility] 07-25-2022 Miscellaneous Notes Patient notified. Please let patient know I ordered a repeat chest xray in 4 weeks to re-evaluate that pneumonia has resolved. If symptoms are not improving, this should be completed earlier. Thank you Sultana Harvey APRN.CNP documented in this encounter [facility] 07-21-2022 Note [facility] 07-21-2022 History of Present illness Narrative CC: Patient presents with: Recheck: Pneumonia follow up HPI Mckayla Russo is a 76 year old female who presents today for pneumonia follow up. Was seen last week and steroid started with instructions of needing to discuss with endocrinology as insulin will need increased. Augmentin also ordered to give a full 10 day dosage. Only took one day of steroids as she didn't want to bolus herself every 2 hours. Finishes augmentin tonight. Using albuterol inhaler every 4 hours. When she uses inhaler she will cough up green sputum. Still with large amount of fatigue, but shortness of breath and wheezing improved. Recent visit with new geophysical engineer and planning on shaving the corns to her bilateral feet. Needs diabetic shoes. 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 Has had a bone removed previously to help with this and is considering having this done again. Denies any new numbness tingling sores or weakness. REVIEW OF SYSTEMS General: no fevers, no chills, no night sweats, no recurrent infections, no change in appetite, no change in energy, and no significant changes in weight Respiratory: no cough, no wheezing, no shortness of breath, no hemoptysis Cardiovascular: no chest pain, no chest pressure, no palpitations, and no swelling PAST MEDICAL HISTORY Diagnosis Date Abnormal mammogram, unspecified left breast BPPV (benign paroxysmal positional vertigo) 02/11/2015 BPV (benign positional vertigo) CAD (coronary artery disease) Carotid stenosis CARPAL TUNNEL BILATERRAL 08/08/2005 Coronary artery disease involving bad river band coronary artery Dr. Pederson follows regularly; S/P PTCA and stenting at [facility] [place], 2001 Coronary atherosclerosis of unspecified type of vessel, bad river band or graft Disorder of bone and cartilage, unspecified Diverticulosis of colon (without mention of hemorrhage) DKA (diabetic ketoacidoses) 09/28/2019 Esophagitis External hemorrhoids without mention of 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 Insomnia Internal hemorrhoids without mention of 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 Mammographic microcalcification Mild intermittent asthma without 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 Adult onset 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) 12/06/2018 Other and unspecified hyperlipidemia Other forms of migraine Other psoriasis Postsurgical percutaneous transluminal coronary angioplasty status Rheumatoid arthritis(714.0) RLS (restless legs syndrome) 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 Thoracic or lumbosacral neuritis or radiculitis, unspecified 03/01/2012 Type I (juvenile type) diabetes mellitus with neurological manifestations, not stated as 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.61) 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, 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) Unspecified asthma(493.90) Unspecified essential hypertension Unspecified hereditary and idiopathic peripheral neuropathy PAST SURGICAL HISTORY Procedure Laterality Date BREAST BIOPSY COLONOSCOPY FLX DX W/COLLJ SPEC WHEN PFRMD 02/26/2204 Colonoscopy COLONOSCOPY FLX DX W/COLLJ SPEC WHEN PFRMD 08/29/15 Colonoscopy COLONOSCOPY FLX DX W/COLLJ SPEC WHEN PFRMD 11/10/2018 Colonoscopy EGD 04/15/2002 ESOPHAGOGASTRODUODENOSCOPY TRANSORAL DIAGNOSTIC 11/10/2018 EGD EXC BREAST LES PREOP PLMT RAD MARKER OPEN 1 LES 03/2008 OPEN REPAIR OF ROTATOR CUFF CHRONIC left rotator cuff PAST SURGICAL HISTORY OF tonsilectomy and adenoidectomy PAST SURGICAL HISTORY OF right breast lumpectomy PAST SURGICAL HISTORY OF x 3 PAST SURGICAL HISTORY OF 1992 right thumb trigger finger PAST SURGICAL HISTORY OF hand surgery PAST SURGICAL HISTORY OF nose surgery PAST SURGICAL HISTORY OF age 17 axillary cyst removal PAST SURGICAL HISTORY OF 2000 heart cath with stent placement PAST SURGICAL HISTORY OF CARDIAC CAATH 2000, 2001, AND 2004 PREOP PLACEMENT NEEDLE LOC STEREOTACTIC CORE BIOPSY 02/24/08 LEFT - benign ALLERGIES Aggrenox [Aspirin-Dipyridamole], Amitriptyline, Cephalexin (Bulk), Cymbalta [Duloxetine], Doxycycline, Duricef [Cefadroxil], Ephedrine, Ilosone [Other], Iodine, Levaquin [Levofloxacin], Lyrica [Pregabalin], Nortriptyline, Oxycodone, Percocet [Oxycodone-Acetaminophen], and Sulfa (Sulfonamide Antibiotics) MEDICATIONS amoxicillin-clavulanic acid (AUGMENTIN) 875-125 mg per tablet Take 1 tablet by mouth twice daily for 5 days. albuterol (PROVENTIL) 2.5 mg /3 mL (0.083 %) nebulizer solution Use 3 mL via nebulizer every 4 hours as needed for wheezing/shortness of breath. Use over 5-15minutes. HYDROcodone-chlorpheniramine (TUSSIONEX) 10-8 mg/5 mL suspension Take 5 mL by mouth every 12 hours as needed for up to 7 days. predniSONE (DELTASONE) 20 mg tablet Take 1 tablet by mouth once daily. albuterol HFA (PROVENTIL HFA, VENTOLIN HFA) 90 mcg/actuation inhaler Inhale 2 Puffs as instructed every 4 hours as needed for wheezing/shortness of breath. furosemide (LASIX) 20 mg tablet Take 1 tablet by mouth once daily as needed (edema). potassium chloride (K-TAB) 10 mEq tablet Take 1 tablet by mouth once daily as needed. Take with Lasix/Furosemide. gabapentin (NEURONTIN) 400 mg capsule Take 1 capsule by mouth twice daily for 180 days. montelukast (SINGULAIR) 10 mg tablet Take 1 tablet by mouth daily at bedtime. nitroglycerin (NITROLINGUAL) 400 mcg/spray spray one every 5 minutes x3 as needed clonazePAM (KLONOPIN) 1 mg tablet Take 1 tablet by mouth at bedtime as needed for up to 90 days. 04/03/22-Needs renewed Bacillus coagulans/inulin (PROBIOTIC WITH PREBIOTIC ORAL) Take by mouth. pramipexole (MIRAPEX) 1 mg tablet Take 2 tablets by mouth daily at bedtime. blood sugar diagnostic (BLOOD GLUCOSE TEST) test strip Test blood sugar(s) 6 times daily. Dx: E 10.65, Z96.41 losartan (COZAAR) 100 mg tablet Take 1 tablet by mouth once daily. insulin lispro (HUMALOG U-100 INSULIN) 100 unit/mL injection as directed in Insulin pump up to 110 units daily. Dx E10.65 amLODIPine (NORVASC) 5 mg tablet Take 1 tablet by mouth once daily. atorvastatin (LIPITOR) 40 mg tablet Take 1 tablet by mouth once daily. clopidogrel (PLAVIX) 75 mg tablet Take 1 tablet by mouth once daily. hydrocortisone 2.5 % cream Apply to affected area once daily. ketoconazole (NIZORAL) 2 % shampoo lansoprazole (PREVACID) 30 mg capsule take 1 capsule by mouth twice a day aspirin 81 mg chewable tablet Take 1 tablet by mouth once daily. blood sugar diagnostic (CONTOUR TEST STRIPS) test strip Test blood sugar(s) 6 times daily. Dx: Type 1 DM - Controlled E10.9 Insulin: Yes hydrOXYchloroQUINE (PLAQUENIL) 200 mg tablet Take 1 tablet by mouth twice daily. (Patient taking differently: Take 200 mg by mouth once daily.) Cholecalciferol, Vitamin D3, 125 mcg (5,000 unit) cap Take 1 capsule by mouth once daily. Biotin 1 mg tab Take 1 tablet by mouth once daily. Blood-Glucose Meter (CONTOUR METER) monitoring kit Dispense 1 kit. Dx: Type 1 DM - Controlled E10.9 Insulin Syringe-Needle U-100 (BD ULTRAFINE INSULIN) 1 mL 31 gauge x 09/02 use as directed if pump fails up to 6 times daily (Patient not taking: Reported on 04/03/2022) multivitamin tablet Take 1 tablet by mouth once daily. acetaminophen (TYLENOL 8 HOUR) 650 mg CR tablet Take 1 tablet by mouth every 8 hours as needed. FAMILY HISTORY Problem Relation Age of Onset Cancer Mother breast (diagnosed mid 50's) Heart Mother valvular other (Other) Father leukemia (dx'd age 55) Asthma Paternal Grandmother Diabetes Paternal Grandmother Colon Cancer Other none other (autoimmune def) Daughter Social History Tobacco Use Smoking status: Never Smokeless tobacco: Never Substance Use Topics Alcohol use: No Drug use: No PHYSICAL EXAM There were no vitals taken for this visit. General Appearance: well appearing, in no acute distress, alert Skin: Skin color, texture, turgor normal for age; Eyes: conjunctiva pink and moist, no icterus, sclera white, non-injected Lungs: Lungs clear to auscultation. No wheezing, rhonchi, rales. Heart: RRR without murmur, gallop, or rubs. No ectopy BLE Extremities: No edema, skin discoloration, clubbing or cyanosis. Both feet with lateral hammer toes and corn that are large enough she has to cut the sides of her shoes. Health maintenance reviewed with patient: BP CONTROLLED (<130/80) Never done DIABETIC FOOT EXAM due on 10/02/2021 ADVANCE DIRECTIVE DISCUSSION due on 04/20/2022 SPIROMETRY due on 11/21/2022 DTAP,TDAP,TD(2 - Td or Tdap) due on 06/09/2023 DILATED RETINAL EXAM due on 10/25/2022 HBA1C due on 12/07/2022 URINE ALBUMIN:CREATININE RATIO due on 06/12/2023 LDL CHOLESTEROL due on 06/12/2023 ANNUAL PCP TEAM CHRONIC DISEASE VISIT due on 07/18/2023 COLORECTAL CANCER SCREENING due on 11/11/2023 BONE DENSITY Completed INFLUENZA Completed HEPATITIS C SCREENING Completed SHINGRIX VACCINE Completed COVID-19 VACCINE Completed PNEUMOCOCCAL: 65+ Completed DATA REVIEWED: No new labs ASSESSMENT/PLAN: 1. Pneumonia of both lungs due to infectious organism, unspecified part of lung - ICD9: 483.8, ICD10: J18.9 (primary diagnosis) Improving. - follow up if these symptoms do not continue to improve or at any time worsen. - discussed using mucinex as previously ordered and states she has some at home - continue with albuterol as needed. 2. 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 - paper filled out and faxed to podiatry office 3. [place] - ICD9: 700, ICD10: L84 As above. Prescription instructions reviewed with patient as applicable. Potential red flag symptoms discussed with the patient. Reviewed appropriate action plan to take if red flag symptoms occur. Patient agreeable to treatment plan. Sutlana Harvey APRN.TIM documented in this encounter [facility] 07-17-2022 Miscellaneous Notes Kevin with [facility] calls to let provider know that Tussionex comes in a Stock Bottle of 115 mL and can't be broken down to dispense. Kevin requesting order be sent for 115 mL bottle. Pended for review. Mirtha Ramos RN documented in this encounter [facility] 07-17-2022 Note [facility] 07-17-2022 History of Present illness Narrative 1CC: Patient presents with: Recheck: Pneumonia follow up HPI Mckayla Russo is a 76 year old female who presents today for pneumonia follow up. Was seen in [facility] on 07/09/22 and diagnosed with bilateral pneumonia. Was prescribed augmentin and azithromycin both for 5 days and finished both about 2 days ago. [place] better for a few days but started feeling worse again over the last few days. Currently with productive cough ranging from clear to green sputum and also can have a persistent dry harsh cough, shortness of breath, chills, fatigue, decreased appetite, and wheezing. Has also been feeling like she is having asthma attacks but has not used her asthma inhaler. Has tenderness to ribs especially when she is having trouble breathing and coughing harshly, but denies chest pressure or chest pain. Denies swelling, palpitations, fever, headaches, or syncope. Has not been on steroids and noticed her blood sugars have been ranging anywhere for 69 to 400. Insulin pump still being used to manage TYPE 1 DM, and patient gives extra insulin depending on meals. Sees Dr. Palm with endocrinology. Patient stating she is not doing her sick day settings at this time. REVIEW OF SYSTEMS General: no fevers, no night sweats, and no significant changes in weight Respiratory: See HPI Cardiovascular: no chest pressure, no palpitations, and no swelling Neurologic: No headache, weakness, numbness, tingling, neck stiffness, tremor, vertigo, dizziness, memory loss, syncope. PAST MEDICAL HISTORY Diagnosis Date Abnormal mammogram, unspecified left breast BPPV (benign paroxysmal positional vertigo) 02/11/2015 BPV (benign positional vertigo) CAD (coronary artery disease) Carotid stenosis CARPAL TUNNEL BILATERRAL 08/08/2005 Coronary artery disease involving bad river band coronary artery Dr. Pederson follows regularly; S/P PTCA and stenting at [facility] [place], 2001 Coronary atherosclerosis of unspecified type of vessel, bad river band or graft Disorder of bone and cartilage, unspecified Diverticulosis of colon (without mention of hemorrhage) DKA (diabetic ketoacidoses) 09/28/2019 Esophagitis External hemorrhoids without mention of 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 Insomnia Internal hemorrhoids without mention of 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 Mammographic microcalcification Mild intermittent asthma without 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 Adult onset 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) 12/06/2018 Other and unspecified hyperlipidemia Other forms of migraine Other psoriasis Postsurgical percutaneous transluminal coronary angioplasty status Rheumatoid arthritis(714.0) RLS (restless legs syndrome) 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 Thoracic or lumbosacral neuritis or radiculitis, unspecified 03/01/2012 Type I (juvenile type) diabetes mellitus with neurological manifestations, not stated as 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.61) 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, 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) Unspecified asthma(493.90) Unspecified essential hypertension Unspecified hereditary and idiopathic peripheral neuropathy PAST SURGICAL HISTORY Procedure Laterality Date BREAST BIOPSY COLONOSCOPY FLX DX W/COLLJ SPEC WHEN PFRMD 02/26/2204 Colonoscopy COLONOSCOPY FLX DX W/COLLJ SPEC WHEN PFRMD 08/29/15 Colonoscopy COLONOSCOPY FLX DX W/COLLJ SPEC WHEN PFRMD 11/10/2018 Colonoscopy EGD 04/15/2002 ESOPHAGOGASTRODUODENOSCOPY TRANSORAL DIAGNOSTIC 11/10/2018 EGD EXC BREAST LES PREOP PLMT RAD MARKER OPEN 1 LES 03/2008 OPEN REPAIR OF ROTATOR CUFF CHRONIC left rotator cuff PAST SURGICAL HISTORY OF tonsilectomy and adenoidectomy PAST SURGICAL HISTORY OF right breast lumpectomy PAST SURGICAL HISTORY OF x 3 PAST SURGICAL HISTORY OF 1993 right thumb trigger finger PAST SURGICAL HISTORY OF hand surgery PAST SURGICAL HISTORY OF nose surgery PAST SURGICAL HISTORY OF age 17 axillary cyst removal PAST SURGICAL HISTORY OF 2000 heart cath with stent placement PAST SURGICAL HISTORY OF CARDIAC CAATH 2000, 2001, AND 2004 PREOP PLACEMENT NEEDLE LOC STEREOTACTIC CORE BIOPSY 02/24/08 LEFT - benign ALLERGIES Aggrenox [Aspirin-Dipyridamole], Amitriptyline, Cephalexin (Bulk), Cymbalta [Duloxetine], Doxycycline, Duricef [Cefadroxil], Ephedrine, Ilosone [Other], Iodine, Levaquin [Levofloxacin], Lyrica [Pregabalin], Nortriptyline, Oxycodone, Percocet [Oxycodone-Acetaminophen], and Sulfa (Sulfonamide Antibiotics) MEDICATIONS albuterol HFA (PROVENTIL HFA, VENTOLIN HFA) 90 mcg/actuation inhaler Inhale 2 Puffs as instructed every 4 hours as needed for wheezing/shortness of breath. furosemide (LASIX) 20 mg tablet Take 1 tablet by mouth once daily as needed (edema). potassium chloride (K-TAB) 10 mEq tablet Take 1 tablet by mouth once daily as needed. Take with Lasix/Furosemide. gabapentin (NEURONTIN) 400 mg capsule Take 1 capsule by mouth twice daily for 180 days. montelukast (SINGULAIR) 10 mg tablet Take 1 tablet by mouth daily at bedtime. nitroglycerin (NITROLINGUAL) 400 mcg/spray spray one every 5 minutes x3 as needed clonazePAM (KLONOPIN) 1 mg tablet Take 1 tablet by mouth at bedtime as needed for up to 90 days. 04/03/22-Needs renewed Bacillus coagulans/inulin (PROBIOTIC WITH PREBIOTIC ORAL) Take by mouth. pramipexole (MIRAPEX) 1 mg tablet Take 2 tablets by mouth daily at bedtime. blood sugar diagnostic (BLOOD GLUCOSE TEST) test strip Test blood sugar(s) 6 times daily. Dx: E 10.65, Z96.41 losartan (COZAAR) 100 mg tablet Take 1 tablet by mouth once daily. insulin lispro (HUMALOG U-100 INSULIN) 100 unit/mL injection as directed in Insulin pump up to 110 units daily. Dx E10.65 amLODIPine (NORVASC) 5 mg tablet Take 1 tablet by mouth once daily. atorvastatin (LIPITOR) 40 mg tablet Take 1 tablet by mouth once daily. clopidogrel (PLAVIX) 75 mg tablet Take 1 tablet by mouth once daily. hydrocortisone 2.5 % cream Apply to affected area once daily. ketoconazole (NIZORAL) 2 % shampoo lansoprazole (PREVACID) 30 mg capsule take 1 capsule by mouth twice a day aspirin 81 mg chewable tablet Take 1 tablet by mouth once daily. blood sugar diagnostic (CONTOUR TEST STRIPS) test strip Test blood sugar(s) 6 times daily. Dx: Type 1 DM - Controlled E10.9 Insulin: Yes hydrOXYchloroQUINE (PLAQUENIL) 200 mg tablet Take 1 tablet by mouth twice daily. (Patient taking differently: Take 200 mg by mouth once daily.) Cholecalciferol, Vitamin D3, 125 mcg (5,000 unit) cap Take 1 capsule by mouth once daily. Biotin 1 mg tab Take 1 tablet by mouth once daily. Blood-Glucose Meter (CONTOUR METER) monitoring kit Dispense 1 kit. Dx: Type 1 DM - Controlled E10.9 Insulin Syringe-Needle U-100 (BD ULTRAFINE INSULIN) 1 mL 31 gauge x 09/02 use as directed if pump fails up to 6 times daily (Patient not taking: Reported on 04/03/2022) multivitamin tablet Take 1 tablet by mouth once daily. acetaminophen (TYLENOL 8 HOUR) 650 mg CR tablet Take 1 tablet by mouth every 8 hours as needed. FAMILY HISTORY Problem Relation Age of Onset Cancer Mother breast (diagnosed mid 50's) Heart Mother valvular other (Other) Father leukemia (dx'd age 55) Asthma Paternal Grandmother Diabetes Paternal Grandmother Colon Cancer Other none other (autoimmune def) Daughter Social History Tobacco Use Smoking status: Never Smokeless tobacco: Never Substance Use Topics Alcohol use: No Drug use: No PHYSICAL EXAM BP 152/72 Pulse 78 Temp 36.8 C (98.2 F) (Temporal) Resp 16 Wt 90.7 kg (200 lb) SpO2 92% BMI 37.79 kg/m General Appearance: well appearing, in no acute distress, alert Skin: Skin color, texture, turgor normal for age; Eyes: conjunctiva pink and moist, no icterus, sclera white, non-injected Lungs: Lungs with faint expiratory wheezing to bases. Difficult to fully evaluate because of harsh nonproductive cough persistent throughout exam. Heart: RRR without murmur, gallop, or rubs. No ectopy BUE Extremities: No deformities, edema, skin discoloration, clubbing or cyanosis. Good capillary refill. Health maintenance reviewed with patient: BP CONTROLLED (<130/80) Never done DIABETIC FOOT EXAM due on 10/02/2021 ADVANCE DIRECTIVE DISCUSSION due on 04/20/2022 SPIROMETRY due on 11/21/2022 DTAP,TDAP,TD(2 - Td or Tdap) due on 06/09/2023 DILATED RETINAL EXAM due on 10/25/2022 HBA1C due on 12/07/2022 ANNUAL PCP TEAM CHRONIC DISEASE VISIT due on 06/09/2023 URINE ALBUMIN:CREATININE RATIO due on 06/12/2023 LDL CHOLESTEROL due on 06/12/2023 COLORECTAL CANCER SCREENING due on 11/11/2023 BONE DENSITY Completed INFLUENZA Completed HEPATITIS C SCREENING Completed SHINGRIX VACCINE Completed COVID-19 VACCINE Completed PNEUMOCOCCAL: 65+ Completed DATA REVIEWED: Most recent labs and imaging results. ASSESSMENT/PLAN: 1. Pneumonia of both lungs due to infectious organism, unspecified part of lung - ICD9: 483.8, ICD10: J18.9 (primary diagnosis) - very harsh cough persistent, patient tolerated tussionex in the past well for cough so ordered. - AMOXICILLIN 875 MG-POTASSIUM CLAVULANATE 125 MG TABLET for 5 more days - ALBUTEROL SULFATE 2.5 MG/3 ML (0.083 %) SOLUTION FOR NEBULIZATION - PREDNISONE 20 MG TABLET - called Dr. Choi office to discuss insulin pump needs and blood sugar control while on steroid burst. No call back at this time. Patient notified via phone to call her process automation engineer as her basal insulin will need increased while on steroids. - follow up next Thursday or Thursday 2. Mild intermittent asthma with acute exacerbation - ICD9: 493.92, ICD10: J45.21 - steroids necessary - see above - ALBUTEROL SULFATE 2.5 MG/3 ML (0.083 %) SOLUTION FOR NEBULIZATION - PREDNISONE 20 MG TABLET Prescription instructions reviewed with patient as applicable. Potential red flag symptoms discussed with the patient. Reviewed appropriate action plan to take if red flag symptoms occur. Patient agreeable to treatment plan. Sultana Harvey APRN.CNP documented in this encounter [facility] 07-11-2022 Miscellaneous Notes My chart message to pt. Prior Authorization has been completed online at [employer] for lansoprazole, will await response. COLLINS- [id number] Please keep encounter open until final decision has been received and documented from insurance company. Sarah Silva MA PRIOR AUTHORIZATION Medication for Prior Authorization: lansoprazole Insurance Company: Medicare: [id number] [place]/[employer] FEP PPO [id number] Nara Argueta RN documented in this encounter [facility] 07-09-2022 Note [facility] 07-09-2022 Note [facility] 07-09-2022 Miscellaneous Notes POPULATION HEALTH NAVIGATION OUTREACH Action/I 1st call-LVM and Must See Indiahart message for patient regarding PODIATRY consult. Patient Identified by Name and : NO Outreach Outcome/Action Unable to reach patient: Left message MyChart message sent Did you use a PCP flex slot to schedule this appointment? N/A Reason for Outreach Care Gap or Scheduling/Wellness visits Payer: Payor: MEDICARE / Plan: MEDICARE A AND B / Product Type: Medicare / Care Gap Reviewed:: Specialty Scheduling Reminder: Reminder note to check Health Maintenance for items below Health Maintenance items due: BP CONTROLLED (<130/80) Never done DIABETIC FOOT EXAM due on 10/02/2021 ADVANCE DIRECTIVE DISCUSSION due on 04/20/2022 Navigation Signature: Kala Delcid July 09, 2022 9:10 AM documented in this encounter [facility] 06-20-2022 Miscellaneous Notes Prescription sent. Thank you Sultana Harvey APRN.CNP Pt called and is notified of providers results and instructions. Pt voices understanding. She states she is still having to wear socks at night and she has the ring around her leg from where the socks were. Pt reports provider can send Lasix and Potassium to [facility] in [place], and that she wouldn't take it every day. She also wanted to let provider know that with having her pump on her BS is supposed to be around 120 and in her labs it was 124. Pt was also scheduled for her 3 month Medicare Wellness Visit. Rosalba Ren, RN Lab work is all within acceptable ranges. How is her swelling? Her kidney function is normal so we could do an as needed lasix for swelling with a potassium supplement, but I would prefer her not to take daily. Also amlodipine can increase swelling so if this continues we may need to evaluate if a new BP med is indicated. We can do the medicare wellness in 3 months. Thank you Sultana Harvey APRN.TIM Patient phoned to ask Dental Hygienist Mobile Coordinator, does she need to schedule a Medicare Wellness appt since her last appt focused on other things? Please advise patient. documented in this encounter [facility] 06-16-2022 Miscellaneous Notes Pt called and requested her referral and supporting information be faxed to Dr. Zhao, Podiatry. FAX: [phone] Done. Mia Ni LPN documented in this encounter [facility] 06-09-2022 Note [facility] 06-09-2022 History of Present illness Narrative CC: Patient presents with: Medicare Wellness Exam: Annual wellness HPI Mckayla Russo is a 76 year old female who presents today for medicare wellness but with multiple concerns so medicare wellness not completed. States she has had phlegm in her mouth for the past month. Has noticed an increase in her chronic daily cough. Has seen ENT and was instructed to use flonase but patient does not like this. Has been told she is unable to take any over the counter allergy medicine but has been on singulair previously with improvement and tolerated well. Denies shortness of breath, fever, wheezing, or abnormal headaches. HTN: Ms. Russo indicates that she is feeling well and denies any symptoms referable to elevated blood pressure. Specifically denies headache, chest pain, palpitations, dyspnea. Patient denies any side effects of her medication(s) and is compliant with their regimen. She does not check BP's generally. Mckayla denies regular aerobic exercise. She watches her diet for sodium, low fat and low cholesterol most of the time. Last 3 Encounter BP Readings: Date: BP: 06/09/2022 132/78 11/05/2021 120/70 10/24/2021 134/76 Has intermittent BLE edema. Will notice sometimes the RLE will stay puffy since having shingles on that side years ago. LLE will get worse as the day goes on and imrpoves with elevating legs. Has been on Lasix previously for this and requesting to start this again. Wears her compression socks daily. Has not had recent lab work completed. Denies chest pain, shortness of breath, pain, or redness. 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 Has had bones of the toes removed previously but does not want to have any amputation as recommended by podiatry. Would like to see a different geophysical engineer for second opinion. DIABETES MELLITUS: Ms. Russo denies excessive thirst or increased frequency of urination, chest pain or dyspnea , numbness, tingling or pain in extremities, new or unusual visual symptoms, low sugar/hypoglycemic reactions, abnormal excessive weight loss/gain, lightheadedness/dizziness, and bowel changes. Follows a diabetic diet some of the time. She is compliant with medication(s) and is tolerating med(s) without any side effects. She reports checking her glucose on a CGM. Feels it is not accurate so unsure what her glucose is. Patient's last HgA1C was 7.1 in office today. Hemoglobin A1C (%) Date Value 05/07/2021 7.5 05/01/2020 7.5 Hemoglobin A1C (POCT) (%) Date Value 10/18/2020 7.3 ) Last Ophthalmology exam was within the past [address] Etienne. Has had burning with urination over the last few weeks. Denies abdominal pain, dark colored or foul smllling urine, difficulty urinating, or fever. REVIEW OF SYSTEMS General: no fevers, no chills, no night sweats, no recurrent infections, no change in appetite, no change in energy, and no significant changes in weight Respiratory: no wheezing, no shortness of breath, no hemoptysis Cardiovascular: no chest pain, no chest pressure, and no palpitations GI: No nausea, vomiting, or diarrhea : See HPI Endocrine: See HPI Neurologic: No headache, weakness, numbness, tingling, dizziness, memory loss, syncope. PAST MEDICAL HISTORY Diagnosis Date Abnormal mammogram, unspecified left breast BPPV (benign paroxysmal positional vertigo) 02/11/2015 BPV (benign positional vertigo) CAD (coronary artery disease) Carotid stenosis CARPAL TUNNEL BILATERRAL 08/08/2005 Coronary artery disease involving bad river band coronary artery Dr. Pederson follows regularly; S/P PTCA and stenting at [facility] [place], 2000 Coronary atherosclerosis of unspecified type of vessel, bad river band or graft Disorder of bone and cartilage, unspecified Diverticulosis of colon (without mention of hemorrhage) DKA (diabetic ketoacidoses) 09/28/2019 Esophagitis External hemorrhoids without mention of 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 Insomnia Internal hemorrhoids without mention of 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 Mammographic microcalcification Mild intermittent asthma without 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 Adult onset Mild nonproliferative diabetic retinopathy of both eyes ([facility]) 12/06/2018 Other and unspecified hyperlipidemia Other forms of migraine Other psoriasis Postsurgical percutaneous transluminal coronary angioplasty status Rheumatoid arthritis(714.0) RLS (restless legs syndrome) 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 Thoracic or lumbosacral neuritis or radiculitis, unspecified 03/01/2012 Type I (juvenile type) diabetes mellitus with neurological manifestations, not stated as 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.61) 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, 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) Unspecified asthma(493.90) Unspecified essential hypertension Unspecified hereditary and idiopathic peripheral neuropathy PAST SURGICAL HISTORY Procedure Laterality Date BREAST BIOPSY COLONOSCOPY FLX DX W/COLLJ SPEC WHEN PFRMD 02/26/2204 Colonoscopy COLONOSCOPY FLX DX W/COLLJ SPEC WHEN PFRMD 08/29/15 Colonoscopy COLONOSCOPY FLX DX W/COLLJ SPEC WHEN PFRMD 11/10/2018 Colonoscopy EGD 04/15/2002 ESOPHAGOGASTRODUODENOSCOPY TRANSORAL DIAGNOSTIC 11/10/2018 EGD EXC BREAST LES PREOP PLMT RAD MARKER OPEN 1 LES 03/2008 OPEN REPAIR OF ROTATOR CUFF CHRONIC left rotator cuff PAST SURGICAL HISTORY OF tonsilectomy and adenoidectomy PAST SURGICAL HISTORY OF right breast lumpectomy PAST SURGICAL HISTORY OF x 3 PAST SURGICAL HISTORY OF 1992 right thumb trigger finger PAST SURGICAL HISTORY OF hand surgery PAST SURGICAL HISTORY OF nose surgery PAST SURGICAL HISTORY OF age 17 axillary cyst removal PAST SURGICAL HISTORY OF 2000 heart cath with stent placement PAST SURGICAL HISTORY OF CARDIAC CAATH 2000, 2001, AND 2004 PREOP PLACEMENT NEEDLE LOC STEREOTACTIC CORE BIOPSY 02/24/08 LEFT - benign ALLERGIES Aggrenox [Aspirin-Dipyridamole], Amitriptyline, Cephalexin (Bulk), Cymbalta [Duloxetine], Doxycycline, Duricef [Cefadroxil], Ephedrine, Ilosone [Other], Iodine, Levaquin [Levofloxacin], Lyrica [Pregabalin], Nortriptyline, Oxycodone, Percocet [Oxycodone-Acetaminophen], and Sulfa (Sulfonamide Antibiotics) MEDICATIONS nitroglycerin (NITROLINGUAL) 400 mcg/spray spray one every 5 minutes x3 as needed gabapentin (NEURONTIN) 400 mg capsule Take 1 capsule by mouth twice daily as needed. clonazePAM (KLONOPIN) 1 mg tablet Take 1 tablet by mouth at bedtime as needed for up to 90 days. 04/03/22-Needs renewed Bacillus coagulans/inulin (PROBIOTIC WITH PREBIOTIC ORAL) Take by mouth. pramipexole (MIRAPEX) 1 mg tablet Take 2 tablets by mouth daily at bedtime. blood sugar diagnostic (BLOOD GLUCOSE TEST) test strip Test blood sugar(s) 6 times daily. Dx: E 10.65, Z96.41 losartan (COZAAR) 100 mg tablet Take 1 tablet by mouth once daily. insulin lispro (HUMALOG U-100 INSULIN) 100 unit/mL injection as directed in Insulin pump up to 110 units daily. Dx E10.65 amLODIPine (NORVASC) 5 mg tablet Take 1 tablet by mouth once daily. atorvastatin (LIPITOR) 40 mg tablet Take 1 tablet by mouth once daily. clopidogrel (PLAVIX) 75 mg tablet Take 1 tablet by mouth once daily. hydrocortisone 2.5 % cream Apply to affected area once daily. ketoconazole (NIZORAL) 2 % shampoo lansoprazole (PREVACID) 30 mg capsule take 1 capsule by mouth twice a day fluticasone (FLONASE) 50 mcg/actuation nasal spray Use 2 Sprays in each nostril once daily. Rinse mouth after use. (Patient not taking: Reported on 04/03/2022) albuterol HFA (PROAIR HFA) 90 mcg/actuation inhaler Inhale 2 Puffs as instructed every 4 hours as needed. aspirin 81 mg chewable tablet Take 1 tablet by mouth once daily. blood sugar diagnostic (CONTOUR TEST STRIPS) test strip Test blood sugar(s) 6 times daily. Dx: Type 1 DM - Controlled E10.9 Insulin: Yes hydrOXYchloroQUINE (PLAQUENIL) 200 mg tablet Take 1 tablet by mouth twice daily. (Patient taking differently: Take 200 mg by mouth once daily.) Cholecalciferol, Vitamin D3, 125 mcg (5,000 unit) cap Take 1 capsule by mouth once daily. Biotin 1 mg tab Take 1 tablet by mouth once daily. Blood-Glucose Meter (CONTOUR METER) monitoring kit Dispense 1 kit. Dx: Type 1 DM - Controlled E10.9 insulin glargine (LANTUS U-100 INSULIN) 100 unit/mL injection 46 units every 24 hr for insulin pump failure (Patient not taking: Reported on 04/03/2022) Insulin Syringe-Needle U-100 (BD ULTRAFINE INSULIN) 1 mL 31 gauge x 09/02 use as directed if pump fails up to 6 times daily (Patient not taking: Reported on 04/03/2022) Lactobacillus acidophilus (PROBIOTIC) 10 billion cell cap Take 1 capsule by mouth once daily. multivitamin tablet Take 1 tablet by mouth once daily. acetaminophen (TYLENOL 8 HOUR) 650 mg CR tablet Take 1 tablet by mouth every 8 hours as needed. FAMILY HISTORY Problem Relation Age of Onset Cancer Mother breast (diagnosed mid 50's) Heart Mother valvular other (Other) Father leukemia (dx'd age 55) Asthma Paternal Grandmother Diabetes Paternal Grandmother Colon Cancer Other none other (autoimmune def) Daughter Social History Tobacco Use Smoking status: Never Smokeless tobacco: Never Substance Use Topics Alcohol use: No Drug use: No PHYSICAL EXAM BP 132/78 Pulse 74 Temp 36.7 C (98.1 F) (Temporal) Resp 16 Wt 90.3 kg (199 lb) SpO2 98% BMI 37.60 kg/m General Appearance: well appearing, in no acute distress, alert Skin: Skin color, texture, turgor normal for age; Eyes: conjunctiva pink and moist, no icterus, sclera white, non-injected Neck: Thyroid normal size and symmetric without palpable nodules, Neck supple, No adenopathy Lymph nodes: No cervical lymphadenopathy and No supraclavicular lymphadenopathy Lungs: Lungs clear to auscultation. No wheezing, rhonchi, rales. Heart: RRR without murmur, gallop, or rubs. No ectopy Abdomen: Abdomen soft, non-tender. Bowel sounds normal. No masses, organomegaly BUE Extremities: No deformities, edema, skin discoloration, clubbing or cyanosis. Good capillary refill. BLE - no edema noted, no tenderness, compression stockings in place, recent foot exam by podiatry so diabetic foot exam not completed at this time. Health maintenance reviewed with patient: DIABETIC FOOT EXAM due on 10/02/2021 DTAP,TDAP,TD(2 - Td or Tdap) due on 01/14/2022 ADVANCE DIRECTIVE DISCUSSION due on 04/20/2022 HBA1C due on 05/03/2022 URINE ALBUMIN:CREATININE RATIO due on 05/07/2022 LDL CHOLESTEROL due on 05/07/2022 SPIROMETRY due on 11/21/2022 DILATED RETINAL EXAM due on 10/25/2022 BP CONTROLLED (<130/80) due on 11/05/2022 ANNUAL PCP TEAM CHRONIC DISEASE VISIT due on 11/21/2022 COLORECTAL CANCER SCREENING due on 11/11/2023 BONE DENSITY Completed INFLUENZA Completed HEPATITIS C SCREENING Completed SHINGRIX VACCINE Completed COVID-19 VACCINE Completed PNEUMOCOCCAL: 65+ Completed DATA REVIEWED: No new labs ASSESSMENT/PLAN: 1. Essential hypertension - ICD9: 401.9, ICD10: I10 (primary diagnosis) - good control - Continue current medication(s) - Encouraged dietary sodium restriction/DASH diet - Recommended regular aerobic exercise. - Recommend home blood pressure monitoring, to bring results in on next visit - Goal of BP <130/80 - COMP METABOLIC PANEL - CBC + DIFF 2. Type 1 diabetes mellitus with diabetic neuropathy (HCC) - ICD9: 250.61, 357.2, ICD10: E10.40 improved control - Continue current medications - Blood glucose monitoring with continuous monitor. - continue to follow with endocrinology. - BP goal of <130/80 - LDL goal of <100 - HEMOGLOBIN A1C (POC) - ALBUMIN/CREAT RATIO RND UR - COMP METABOLIC PANEL - CBC + DIFF - CONSULT TO PODIATRY 3. Bilateral edema of lower extremity - ICD9: 782.3, ICD10: R60.0 - will evaluate kidney function and electrolytes then if indicated, will start on a low dose lasix PRN edema Follow up depending on lab work 4. Dysuria - ICD9: 788.1, ICD10: R30.0 acute - Patient education for prevention given - UA DIP, URINE (POC) - URINE CULTURE - URINALYSIS, WITH MICROSCOPIC 5. Proteinuria, unspecified type - ICD9: 791.0, ICD10: R80.9 - URINALYSIS, WITH MICROSCOPIC 6. Dark yellow-colored urine - ICD9: 788.99, ICD10: R39.89 - discussed importance of water intake as patient has only had hot chocolate so far today. - URINE CULTURE - URINALYSIS, WITH MICROSCOPIC 7. Mixed hyperlipidemia - ICD9: 272.2, ICD10: E78.2 - to be determined upon return of lab results - Continue current medication. - Encouraged following a low fat, low cholesterol diet. - Discussed the benefits of regular aerobic exercise and weight loss. - LIPID PANEL BASIC 8. [place] - ICD9: 700, ICD10: L84 - CONSULT TO PODIATRY - faxed to Dr. Ewing office as requested. Prescription instructions reviewed with patient as applicable. Potential red flag symptoms discussed with the patient. Reviewed appropriate action plan to take if red flag symptoms occur. Patient agreeable to treatment plan. Sultana Harvey APRN.CNP documented in this encounter [facility] 06-04-2022 Miscellaneous Notes Patient returned call to schedule annual wellness exam. Carola Huang RN documented in this encounter [facility] 06-03-2022 Note [facility] 06-03-2022 History of Present illness Narrative Images from the original note were not included. FOLLOW UP PODIATRIC OFFICE VISIT Chief Complaint: This 76 year old who presents for follow up:painful callus of b/l 5th toe Patient presents to clinic with complaint of painful callus of b/l 5th toe Patient treats with wider shoes, padding and cuts holes in her shoes She has no other complaints. PAIN EVALUATION 05/23/2022 1526 Pain Level: 8 Pain Location: Toe Description: Stabbing/Not Incision;Throbbing Duration Amount of Time: 21 Duration Units: Weeks Comments: no shoes no slippers Hemoglobin A1C Date Value Ref Range Status 05/07/2021 7.5 (H) 4.3 - 5.6 % Final Comment: [place] [employer] guidelines indicate that patients with HgbA1c in the range 5.7-6.4% are at increased risk for development of diabetes, and intervention by lifestyle modification may be beneficial. HgbA1c greater or equal to 6.5% is considered diagnostic of diabetes. PCP: Darryn Anderson MD PAST MEDICAL HISTORY Diagnosis Date Abnormal mammogram, unspecified left breast BPPV (benign paroxysmal positional vertigo) 02/11/2015 BPV (benign positional vertigo) CAD (coronary artery disease) Carotid stenosis CARPAL TUNNEL BILATERRAL 08/08/2005 Coronary artery disease involving bad river band coronary artery Dr. 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) 12/06/2018 Other and unspecified hyperlipidemia Other forms of migraine Other psoriasis Postsurgical percutaneous transluminal coronary angioplasty status Rheumatoid arthritis(714.0) RLS (restless legs syndrome) Stroke (cerebrum) (HCC) x3 Thoracic or lumbosacral neuritis or radiculitis, unspecified 03/01/2012 Type I (juvenile type) diabetes mellitus with neurological manifestations, not stated as 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.61) 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, 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) Unspecified asthma(493.90) Unspecified essential hypertension Unspecified hereditary and idiopathic peripheral neuropathy Current Outpatient Medications Medication Sig nitroglycerin (NITROLINGUAL) 400 mcg/spray spray one every 5 minutes x3 as needed gabapentin (NEURONTIN) 400 mg capsule Take 1 capsule by mouth twice daily as needed. clonazePAM (KLONOPIN) 1 mg tablet Take 1 tablet by mouth at bedtime as needed for up to 90 days. 04/03/22-Needs renewed Bacillus coagulans/inulin (PROBIOTIC WITH PREBIOTIC ORAL) Take by mouth. pramipexole (MIRAPEX) 1 mg tablet Take 2 tablets by mouth daily at bedtime. losartan (COZAAR) 100 mg tablet Take 1 tablet by mouth once daily. insulin lispro (HUMALOG U-100 INSULIN) 100 unit/mL injection as directed in Insulin pump up to 110 units daily. Dx E10.65 amLODIPine (NORVASC) 5 mg tablet Take 1 tablet by mouth once daily. atorvastatin (LIPITOR) 40 mg tablet Take 1 tablet by mouth once daily. clopidogrel (PLAVIX) 75 mg tablet Take 1 tablet by mouth once daily. hydrocortisone 2.5 % cream Apply to affected area once daily. ketoconazole (NIZORAL) 2 % shampoo lansoprazole (PREVACID) 30 mg capsule take 1 capsule by mouth twice a day albuterol HFA (PROAIR HFA) 90 mcg/actuation inhaler Inhale 2 Puffs as instructed every 4 hours as needed. aspirin 81 mg chewable tablet Take 1 tablet by mouth once daily. hydrOXYchloroQUINE (PLAQUENIL) 200 mg tablet Take 1 tablet by mouth twice daily. (Patient taking differently: Take 200 mg by mouth once daily.) Cholecalciferol, Vitamin D3, 125 mcg (5,000 unit) cap Take 1 capsule by mouth once daily. Biotin 1 mg tab Take 1 tablet by mouth once daily. Lactobacillus acidophilus (PROBIOTIC) 10 billion cell cap Take 1 capsule by mouth once daily. multivitamin tablet Take 1 tablet by mouth once daily. acetaminophen (TYLENOL 8 HOUR) 650 mg CR tablet Take 1 tablet by mouth every 8 hours as needed. blood sugar diagnostic (BLOOD GLUCOSE TEST) test strip Test blood sugar(s) 6 times daily. Dx: E 10.65, Z96.41 fluticasone (FLONASE) 50 mcg/actuation nasal spray Use 2 Sprays in each nostril once daily. Rinse mouth after use. (Patient not taking: Reported on 04/03/2022) blood sugar diagnostic (CONTOUR TEST STRIPS) test strip Test blood sugar(s) 6 times daily. Dx: Type 1 DM - Controlled E10.9 Insulin: Yes Blood-Glucose Meter (CONTOUR METER) monitoring kit Dispense 1 kit. Dx: Type 1 DM - Controlled E10.9 insulin glargine (LANTUS U-100 INSULIN) 100 unit/mL injection 46 units every 24 hr for insulin pump failure (Patient not taking: Reported on 04/03/2022) Insulin Syringe-Needle U-100 (BD ULTRAFINE INSULIN) 1 mL 31 gauge x 09/02 use as directed if pump fails up to 6 times daily (Patient not taking: Reported on 04/03/2022) No current facility-administered medications for this visit. ALLERGIES Allergen Reactions Aggrenox [Aspirin-D* MIGRAINES AND VOMITING Amitriptyline Other: See Comments Confusion, falls Cephalexin (Bulk) GI Upset Cymbalta [Duloxetin* Unknown Doxycycline GI Upset headache Duricef [Cefadroxil] Hives Ephedrine Other: See Comments tachycardia, but pt. states she still uses nose spray Ilosone [Other] Swelling tachycardia Iodine itching after prolonged use Levaquin [Levofloxa* Other: See Comments Achilles tendon problem Lyrica [Pregabalin] Other: See Comments Dizziness at 225mg twice daily Nortriptyline Other: See Comments vertigo Oxycodone Mental Status Change Percocet [Oxycodone* Unknown Sulfa (Sulfonamide * Hives blisters PAST SURGICAL HISTORY Procedure Laterality Date BREAST BIOPSY COLONOSCOPY FLX DX W/COLLJ SPEC WHEN PFRMD 02/26/2204 Colonoscopy COLONOSCOPY FLX DX W/COLLJ SPEC WHEN PFRMD 08/29/15 Colonoscopy COLONOSCOPY FLX DX W/COLLJ SPEC WHEN PFRMD 11/10/2018 Colonoscopy EGD 04/15/2002 ESOPHAGOGASTRODUODENOSCOPY TRANSORAL DIAGNOSTIC 11/10/2018 EGD EXC BREAST LES PREOP PLMT RAD MARKER OPEN 1 LES 03/2008 OPEN REPAIR OF ROTATOR CUFF CHRONIC left rotator cuff PAST SURGICAL HISTORY OF tonsilectomy and adenoidectomy PAST SURGICAL HISTORY OF right breast lumpectomy PAST SURGICAL HISTORY OF x 3 PAST SURGICAL HISTORY OF 1992 right thumb trigger finger PAST SURGICAL HISTORY OF hand surgery PAST SURGICAL HISTORY OF nose surgery PAST SURGICAL HISTORY OF age 17 axillary cyst removal PAST SURGICAL HISTORY OF 2000 heart cath with stent placement PAST SURGICAL HISTORY OF CARDIAC CAATH 2000, 2001, AND 2004 PREOP PLACEMENT NEEDLE LOC STEREOTACTIC CORE BIOPSY 02/24/08 LEFT - benign Physical Exam: OBJECTIVE: Constitutional: Pt is a well developed 76 year old female who is alert, oriented, cooperative and in no apparent distress. Eyes: Following during examination. No redness or drainage. Respiratory: RR normal and nonlabored. Even breathing. No evidence of distress. Psychology: Patient is engaged during conversation. Normal affect and mood. Does not appear depressed or anxious. NVSI unchanged from previous visit. Dermatological: Nails 1-5 b/l are normal. Webspaces clean and dry 1-4 b/l. Skin appears well hydrated and supple. good color, texture, turgor. No open lesions present. Callus present to b/l 5th toe ipj no ulceration present. 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 ASSESSMENT: Hyperkeratosis (primary encounter diagnosis) Diabetic polyneuropathy associated with type 2 diabetes mellitus (hcc) PLAN: Discussed painful callus of b/l 5th toe. Callus caused by hammertoe. Recommend wider shoes, padding and periodic debridement Callus debrided today x 2 with 15 blade and dremmel. Continue with padding Discussed surgical options. She is not interested in surgery. Can f/u prn for callus debridement AMB ROOMING INTAKE FLOWSHEET DATA Pain Pain Level: 8 Pain Location: Toe Description: Stabbing/Not Incision, Throbbing Duration Amount of Time: 21 Duration Units: Weeks Comments: no shoes no slippers Patient presents with: Left Foot - Established Patient, Follow Up, Pain, Corns Right Foot - Established Patient, Follow Up, Corns Patient states that Left corn has been bothering her a lot more lately. documented in this encounter [facility] 06-03-2022 Note [facility] 06-02-2022 Note [facility] 05-29-2022 Note [facility] 05-23-2022 Miscellaneous Notes Called pt and pending rx is all that is needed. Last seen 11/2021. Patient has been identified by name and date of : Yes Requested Prescriptions Pending Prescriptions Disp Refills lansoprazole (PREVACID) 30 mg capsule 180 capsule 3 Sig: Take 1 capsule by mouth twice daily. nitroglycerin (NITROLINGUAL) 400 mcg/spray spray 4.9 g 3 Sig: one every 5 minutes x3 as needed amLODIPine (NORVASC) 5 mg tablet 90 tablet 3 Sig: Take 1 tablet by mouth once daily. RX INSTRUCTIONS: Patient aware RX will be sent to pharmacy. No need to notify patient. [facility] documented in this encounter [facility] 05-23-2022 Miscellaneous Notes Called patient and schedule sooner appointment for 05/29/2022. Jacqueline Rabago LPN Mckayla called. She advised that Dr. Rangel takes care of her corns and she called to schedule a visit to have them removed and she cannot get in until June 04. Mckayla advised that her feet are so sore that she cannot even wear her slippers and having to wait 2 weeks is unacceptable and if that is the first time that she can be seen then I might as well find another provider that can see me . Spoke with Jacqueline, she advised that Dr. Rangel is currently booking out 2 weeks and that is the first appointment that is available, but they can put her on a cancellation list. Spoke with Mckayla. Reviewed what Jacqueline said and advised that I would put a message in her chart to their office and ask that she be placed on a cancellation list. Mckayla became very upset and stated Dr. Rangel told me that when I needed to be seen, I just had to call and I would be seen the same day! . I apologized and advised that all I could do was send a message to their office as I am just helping answer their phones and I cannot book appointments for their office. Tameka Michel RN documented in this encounter [facility] 05-13-2022 Miscellaneous Notes Patient has been identified by name and date of : No Patient phones for refill(s): Requested Prescriptions Pending Prescriptions Disp Refills gabapentin (NEURONTIN) 400 mg capsule 180 capsule 3 Sig: Take 1 capsule by mouth twice daily as needed. Date of last office visit in primary care: 11/21/2021 Last 2 Encounter Wt Readings: Date: Wt: 11/05/2021 91.6 kg (202 lb) 05/10/2021 88.9 kg (196 lb) Previous labs/tests for medication: Not applicable Please advise. Thank you. Rylee Alvarado LPN Patient has been identified by name and date of : Yes Requested Prescriptions Pending Prescriptions Disp Refills gabapentin (NEURONTIN) 400 mg capsule 180 capsule 3 Sig: Take 1 capsule by mouth twice daily as needed. RX INSTRUCTIONS: Patient aware RX will be sent to pharmacy. No need to notify patient. Teagan [facility] documented in this encounter [facility] 04-18-2022 Miscellaneous Notes PDMP website checked and validated. All prescriptions have been APPROPRIATELY filled. No suspicious activity was identified. 04/18/2022 by Sultana Harvey APRN.TIM Patient has been identified by name and date of : Yes, Provider DARRYN ANDEROSN Date 04/18/22 Time 1033 Patient phones for refill(s): Requested Prescriptions Pending Prescriptions Disp Refills clonazePAM (KLONOPIN) 1 mg tablet 90 tablet 0 Sig: Take 1 tablet by mouth at bedtime as needed for up to 180 days. 04/03/22-Needs renewed Date of last office visit in primary care: 03/25/22 Labs-02/07/22 NOV-none med filled 12/27/21 Last 2 Encounter Wt Readings: Date: Wt: 11/05/2021 91.6 kg (202 lb) 05/10/2021 88.9 kg (196 lb) Previous labs/tests for medication: Not applicable Please advise. Thank you. Nara Sandoval documented in this encounter [facility] 04-03-2022 Instructions Lauren Juan Carlos - 04/03/2022 10:03 AM EST Diabetes Foot Care Instructions When you have diabetes, proper foot care is very important. Poor foot care may lead to amputation of a foot or leg. As a person with diabetes, you are more vulnerable to foot problems, because diabetes can damage your nerves and reduce blood flow to your feet. Here are some diabetes foot care tips to follow: Wash and Dry Your Feet Daily Use mild soaps Use warm water Pat your skin dry; do not rub. Thoroughly dry your feet. After washing, use lotion on your feet to prevent cracking. Do not put lotion between your toes. Examine Your Feet Each Day Check the tops and bottoms of your feet. Have someone else look at your feet if you cannot see them. Check for dry, cracked skin. Look for blisters, cuts, scratches, or other sores. Check for redness, increased warmth, or tenderness when touching any area of your feet. Check for ingrown toenails, corns, and calluses. If you get a blister or sore from your shoes, do not pop it. Apply a bandage and wear a different pair of shoes. Take Care of Your Toenails Cut toenails after bathing, when they are soft. Cut toenails straight across and smooth with a nail file. Avoid cutting into the corners of toes. Do not cut cuticles. If you have neuropathy (or decreased sensation in your feet) a geophysical engineer should always cut your toenails. Be Careful When Exercising Walk and exercise in comfortable shoes. Do not exercise when you have open sores on your feet. Protect Your Feet With Shoes and Socks Never go barefoot. Always protect your feet by wearing shoes or hard-soled slippers or footwear. Avoid shoes with high heels and pointed toes. Avoid shoes that expose your toes or heels (such as open-toed shoes or sandals). These types of shoes increase your risk for injury and potential infections. Try on new footwear with the type of socks you usually wear. Do not wear new shoes for more than an hour at a time. Change your socks daily. Look and feel inside your shoes before putting them on to make sure there are no foreign objects or rough areas. Avoid tight socks. Wear natural-fiber socks (cotton, wool, or a cotton-wool blend). Wear special shoes if your health care provider recommends them. Wear shoes/boots that will protect your feet from various weather conditions (cold, moisture, etc.). Make sure your shoes fit properly. If you have neuropathy (nerve damage), you may not notice that your shoes are too tight. Perform the footwear test described below. Footwear Test Use this simple test to see if your shoes fit correctly: Stand on a piece of paper. (Make sure you are standing and not sitting, because your foot changes shape when you stand.) Trace the outline of your foot. Trace the outline of your shoe. Compare the tracings: Is the shoe too narrow? Is your foot crammed into the shoe? The shoe should be at least 1/2 inch longer than your longest toe and as wide as your foot. Proper Shoe Choices The following types of shoes are best for people with diabetes Closed toes and heels Leather uppers without a seam inside At least 1/2 inch extra space at the end of your longest toe Inside of shoe should be soft with no rough areas Outer sole should be made of stiff material Shoes should be at least as wide as your feet Tips for Foot Care in Diabetes Don't wait to treat a minor foot problem if you have diabetes. Follow your health care provider's guidelines and first aid guidelines. Report foot injuries and infections to your health care provider immediately. Check water temperature with your elbow, not your foot. Do not use a heating pad on your feet. Do not cross your legs. Do not self-treat your corns, calluses, or other foot problems. Go to your health care provider or geophysical engineer to treat these conditions. documented in this encounter [facility] 04-03-2022 History of Present illness Narrative Images from the original note were not included. FOLLOW UP PODIATRIC OFFICE VISIT Chief Complaint: This 76 year old who presents for follow up:painful callus of b/l 5th toe Patient presents to clinic with complaint of painful callus of b/l 5th toe Patient complains of pain due to rubbing in shoes. Patient does complain of painful toenails 1-5 b/l PAIN EVALUATION 04/03/2022 0944 Pain Level: 6 Pain Location: Other: See Comment Bilateral feet Duration Units: Unknown Frequency: Continuous Intervention/Comfort measure: Reposition;Distractions;Relaxatio n Hemoglobin A1C Date Value Ref Range Status 05/07/2021 7.5 (H) 4.3 - 5.6 % Final Comment: [place] [employer] guidelines indicate that patients with HgbA1c in the range 5.7-6.4% are at increased risk for development of diabetes, and intervention by lifestyle modification may be beneficial. HgbA1c greater or equal to 6.5% is considered diagnostic of diabetes. PCP: Darryn Anderson MD PAST MEDICAL HISTORY Diagnosis Date Abnormal mammogram, unspecified left breast BPPV (benign paroxysmal positional vertigo) 02/11/2015 BPV (benign positional vertigo) CAD (coronary artery disease) Carotid stenosis CARPAL TUNNEL BILATERRAL 08/08/2005 Coronary artery disease involving bad river band coronary artery Dr. Pederson follows regularly; S/P PTCA and stenting at [facility] [place], 2000 Coronary atherosclerosis of unspecified type of vessel, bad river band or graft Disorder of bone and cartilage, unspecified Diverticulosis of colon (without mention of hemorrhage) DKA (diabetic ketoacidoses) 09/28/2019 Esophagitis External hemorrhoids without mention of 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 Insomnia Internal hemorrhoids without mention of 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 Mammographic microcalcification Mild intermittent asthma without 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 Adult onset Mild nonproliferative diabetic retinopathy of both eyes ([facility]) 12/06/2018 Other and unspecified hyperlipidemia Other forms of migraine Other psoriasis Postsurgical percutaneous transluminal coronary angioplasty status Rheumatoid arthritis(714.0) RLS (restless legs syndrome) Stroke (cerebrum) (HCC) x3 Thoracic or lumbosacral neuritis or radiculitis, unspecified 03/01/2012 Type I (juvenile type) diabetes mellitus with neurological manifestations, not stated as 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.61) 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 clonazePAM (KLONOPIN) 1 mg tablet Take 1 tablet by mouth at bedtime as needed for up to 180 days. (Patient taking differently: Take 1 mg by mouth at bedtime as needed. 04/03/22-Needs renewed) pramipexole (MIRAPEX) 1 mg tablet Take 2 tablets by mouth daily at bedtime. blood sugar diagnostic (BLOOD GLUCOSE TEST) test strip Test blood sugar(s) 6 times daily. Dx: E 10.65, Z96.41 losartan (COZAAR) 100 mg tablet Take 1 tablet by mouth once daily. insulin lispro (HUMALOG U-100 INSULIN) 100 unit/mL injection as directed in Insulin pump up to 110 units daily. Dx E10.65 amLODIPine (NORVASC) 5 mg tablet Take 1 tablet by mouth once daily. atorvastatin (LIPITOR) 40 mg tablet Take 1 tablet by mouth once daily. clopidogrel (PLAVIX) 75 mg tablet Take 1 tablet by mouth once daily. gabapentin (NEURONTIN) 400 mg capsule Take 1 capsule by mouth twice daily as needed. hydrocortisone 2.5 % cream Apply to affected area once daily. ketoconazole (NIZORAL) 2 % shampoo lansoprazole (PREVACID) 30 mg capsule take 1 capsule by mouth twice a day albuterol HFA (PROAIR HFA) 90 mcg/actuation inhaler Inhale 2 Puffs as instructed every 4 hours as needed. nitroglycerin (NITROLINGUAL) 400 mcg/spray spray one every 5 minutes x3 as needed aspirin 81 mg chewable tablet Take 1 tablet by mouth once daily. hydrOXYchloroQUINE (PLAQUENIL) 200 mg tablet Take 1 tablet by mouth twice daily. (Patient taking differently: Take 200 mg by mouth once daily.) Cholecalciferol, Vitamin D3, 125 mcg (5,000 unit) cap Take 1 capsule by mouth once daily. Biotin 1 mg tab Take 1 tablet by mouth once daily. Blood-Glucose Meter (CONTOUR METER) monitoring kit Dispense 1 kit. Dx: Type 1 DM - Controlled E10.9 Lactobacillus acidophilus (PROBIOTIC) 10 billion cell cap Take 1 capsule by mouth once daily. multivitamin tablet Take 1 tablet by mouth once daily. acetaminophen (TYLENOL 8 HOUR) 650 mg CR tablet Take 1 tablet by mouth every 8 hours as needed. fluticasone (FLONASE) 50 mcg/actuation nasal spray Use 2 Sprays in each nostril once daily. Rinse mouth after use. (Patient not taking: Reported on 04/03/2022) blood sugar diagnostic (CONTOUR TEST STRIPS) test strip Test blood sugar(s) 6 times daily. Dx: Type 1 DM - Controlled E10.9 Insulin: Yes insulin glargine (LANTUS U-100 INSULIN) 100 unit/mL injection 46 units every 24 hr for insulin pump failure (Patient not taking: Reported on 04/03/2022) Insulin Syringe-Needle U-100 (BD ULTRAFINE INSULIN) 1 mL 31 gauge x 09/02 use as directed if pump fails up to 6 times daily (Patient not taking: Reported on 04/03/2022) No current facility-administered medications for this visit. ALLERGIES Allergen Reactions Aggrenox [Aspirin-D* MIGRAINES AND VOMITING Amitriptyline Other: See Comments Confusion, falls Cephalexin (Bulk) GI Upset Cymbalta [Duloxetin* Unknown Doxycycline GI Upset headache Duricef [Cefadroxil] Hives Ephedrine Other: See Comments tachycardia, but pt. states she still uses nose spray Ilosone [Other] Swelling tachycardia Iodine itching after prolonged use Levaquin [Levofloxa* Other: See Comments Achilles tendon problem Lyrica [Pregabalin] Other: See Comments Dizziness at 225mg twice daily Nortriptyline Other: See Comments vertigo Oxycodone Mental Status Change Percocet [Oxycodone* Unknown Sulfa (Sulfonamide * Hives blisters PAST SURGICAL HISTORY Procedure Laterality Date BREAST BIOPSY COLONOSCOPY FLX DX W/COLLJ SPEC WHEN PFRMD 02/26/2204 Colonoscopy COLONOSCOPY FLX DX W/COLLJ SPEC WHEN PFRMD 08/29/15 Colonoscopy COLONOSCOPY FLX DX W/COLLJ SPEC WHEN PFRMD 11/10/2018 Colonoscopy EGD 04/15/2002 ESOPHAGOGASTRODUODENOSCOPY TRANSORAL DIAGNOSTIC 11/10/2018 EGD EXC BREAST LES PREOP PLMT RAD MARKER OPEN 1 LES 03/2008 OPEN REPAIR OF ROTATOR CUFF CHRONIC left rotator cuff PAST SURGICAL HISTORY OF tonsilectomy and adenoidectomy PAST SURGICAL HISTORY OF right breast lumpectomy PAST SURGICAL HISTORY OF x 3 PAST SURGICAL HISTORY OF 1992 right thumb trigger finger PAST SURGICAL HISTORY OF hand surgery PAST SURGICAL HISTORY OF nose surgery PAST SURGICAL HISTORY OF age 17 axillary cyst removal PAST SURGICAL HISTORY OF 2000 heart cath with stent placement PAST SURGICAL HISTORY OF CARDIAC CAATH 2000, 2001, AND 2004 PREOP PLACEMENT NEEDLE LOC STEREOTACTIC CORE BIOPSY 02/24/08 LEFT - benign Physical Exam: OBJECTIVE: Constitutional: Pt is a well developed 76 year old female who is alert, oriented, cooperative and in no apparent distress. Eyes: Following during examination. No redness or drainage. Respiratory: RR normal and nonlabored. Even breathing. No evidence of distress. Psychology: Patient is engaged during conversation. Normal affect and mood. Does not appear depressed or anxious. NVSI unchanged from previous visit. Dermatological: Nails 1-5 b/l are thick, elongated, painful. Webspaces clean and dry 1-4 b/l. Skin appears well hydrated and supple. good color, texture, turgor. No open lesions present. Callus present to b/l 5th toe. No underlying ulceration Musculoskeletal/Orthopaedic: Patient has pain to palpation of b/l 5th toe at site of callus Adductovarus deformity present to b/l 5th toe ASSESSMENT: (L85.9) Hyperkeratosis (primary encounter diagnosis) (B35.1) Onychomycosis (M79.675) Pain in toe of left foot (M79.674) Pain in toe of right foot (E11.42) Diabetic polyneuropathy associated with type 2 diabetes mellitus (HCC) (M20.41) Hammertoe of right foot (M20.42) Hammertoe of left foot PLAN: Discussed callus of b/l 5th toe. Callus is caused by hammertoe deformity. Discussed options for the hammertoe not limited to conservative care (ie padding, periodic debridemetn of callus ) vs surgcial (arthroplasty vs amputation). Patient is not interested in surgery. She has elected to continue with pallitative care In order to perform a complete physical exam, limited shaving of callus area was performed. This incidental service is integral to the evaluation and management visit in order to appropriately manage and treat the patient (for their complaint or for this visit). Toenails 1-5 b/l debrided in length and thickness F/u in 3 months Lauren Rangel DPM AMB ROOMING INTAKE FLOWSHEET DATA Risk Screening Do you have concerns about personal safety or safety in the home?: No Pain Pain Level: 6 Pain Location: Other: See Comment (Bilateral feet) Duration Units: Unknown Frequency: Continuous Intervention/Comfort measure: Reposition, Distractions, Relaxation Patient presents with: Right Foot - Established Patient, Follow Up, Corns Left Foot - Established Patient, Follow Up, Corns documented in this encounter [facility] 02-04-2022 Miscellaneous Notes Patient notified. Verbalized understanding. Please let patient know that I would give her macrobid if she feels like she is having an infection It has been sent to Darryn Musa MD Patient called and states that it has been 2-4 weeks since she had taken the last dose of amoxicillin. Patient know that she was coming down with UTI infection because she gets one every year. Patient states that she took 4-5 pills at that time. Patient notified that diflucan was sent to pharmacy. Patient voiced understanding. Nara Argueta RN Why is patient on amoxicillin? When was the last fluconazole pill? I have ordered another diflucan pill but do not want her to take unless she has not taken any in hte past 3 days. Thank you Sultana Harvey APRN.TIM Patient calls and states that she still has a yeast infection. Patient states that she still has a lot of itching. Patient states that she was given amoxicillin by her son. At first patient said that she took a couple of the pills and they always make her itchy. She then said that she hasn't taken any of the pills. Please review and advise, Nara Argueta RN Left message for patient to call office and speak with nurse. Please let patient know her urine culture did not show any specific infection, but may have been contaminated and not a clean sample. How are her symptoms? If she is still having concerns, we should repeat the urine. Thank you Sultana Harvey APRN.[employer] documented in this encounter [facility] 01-31-2022 Miscellaneous Notes [employer] medict message was sent to patient You have a uti Berkley, Waiting for the culture to be back Regards, Darryn Anderson MD documented in this encounter [facility] 01-30-2022 Miscellaneous Notes Spoke with the pharmacy and they have everything they need and will get prescription for test strips ready for pt. Pt notified. Mia Ni LPN Contacted [facility] and they are going to re fax form. Watch for form. Mia Ni LPN Form not received. Patient calls to ask if provider's office has received the medicare form for glucose test strips. She reports Bryan was to fax it to office. Patient reports she is down to 5 test strips. Patient asking for call back at [phone] to verify. Mirtha Ramos RN Patient reports she will be getting a medicare form to Dr. Anderson (either by fax or she will bring it in) for Dr. Anderson to complete so she can get more blood sugar test strips. Patient states recent test strip script sent will not be covered without this medicare form being completed. 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 N/A Reason for Outreach HCC or suspected condition Payer: Payor: MEDICARE / Plan: MEDICARE A AND B / Product Type: Medicare / Care Gap Reviewed:: Follow-up appointment Flu vaccine Reminder: Reminder note to check Health Maintenance for items below Health Maintenance items due: COVID-19 VACCINE(5 - Booster for Pfizer series) due on 09/24/2021 DIABETIC FOOT EXAM due on 10/02/2021 INFLUENZA(1) due on 12/19/2021 DTAP,TDAP,TD(2 - Td or Tdap) due on 01/14/2022 Message Sent to Practice: No Navigation Signature: Priscilla Henning MA January 23, 2022 12:13 PM documented in this encounter [facility] 01-22-2022 Miscellaneous Notes Please let patient know that I am giving fluconzole for possible vaginal yeast infection For uti she needs to do urine tests which are ordered. Mckayla Russo is calling Darryn Anderson MD today to request UTI (Frequency and burning and yeast infection) Patient is calling for medication for this please advise. Patient has been identified by name and birthdate. Duration of symptoms: 2 days Person calling: self Call patient at: at home [phone] (home) [phone] (work) [phone] (cell) Was an appointment scheduled: No Closing statement: Symptom Call: Thank you for calling [facility], your call is very important. A nurse will call in approximately 2-4 hours during business hours. If this is an emergency, please contact 911. Vida Connor Pss documented in this encounter [facility] 12-30-2021 History of Present illness Narrative Initial Podiatric Office Visit: Chief Complaint: This 76 year old female who presents with chief complaint:right foot pain HPI Patient presents to clinic for evaluation of right foot. She states that about 3 weeks ago, she dropped a vacuum on her right foot She now has bruising and pain in her foot. She has xrays to review. She also complains of painful toenails of b/l feet PAIN EVALUATION 12/30/2021 1624 Pain Level: 5 Pain Location: Foot-Right Description: Aching Duration Amount of Time: 3 Duration Units: Weeks Frequency: Continuous Intervention/Comfort measure: Reposition;Relaxation;Distraction s Comments: Tramadol at home for pain Hemoglobin A1C (%) Date Value 05/07/2021 7.5 05/01/2020 7.5 09/24/2018 8.4 06/22/2017 8.0 03/31/2017 8.0 03/17/2016 8.2 03/17/2016 8.1 Hemoglobin A1C (POCT) (%) Date Value 10/18/2020 7.3 05/02/2019 7.3 01/18/2019 7.0 PCP: Darryn Anderson MD PAST MEDICAL HISTORY Diagnosis Date Abnormal mammogram, unspecified left breast BPPV (benign paroxysmal positional vertigo) 02/11/2015 BPV (benign positional vertigo) CAD (coronary artery disease) Carotid stenosis CARPAL TUNNEL BILATERRAL 08/08/2005 Coronary artery disease involving bad river band coronary artery Dr. 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) 12/06/2018 Other and unspecified hyperlipidemia Other forms of migraine Other psoriasis Postsurgical percutaneous transluminal coronary angioplasty status Rheumatoid arthritis(714.0) RLS (restless legs syndrome) Stroke (cerebrum) (HCC) x3 Thoracic or lumbosacral neuritis or radiculitis, unspecified 03/01/2012 Type I (juvenile type) diabetes mellitus with neurological manifestations, not stated as 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.61) 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 pramipexole (MIRAPEX) 1 mg tablet Take 2 tablets by mouth daily at bedtime. losartan (COZAAR) 100 mg tablet Take 1 tablet by mouth once daily. insulin lispro (HUMALOG U-100 INSULIN) 100 unit/mL injection as directed in Insulin pump up to 110 units daily. Dx E10.65 amLODIPine (NORVASC) 5 mg tablet Take 1 tablet by mouth once daily. atorvastatin (LIPITOR) 40 mg tablet Take 1 tablet by mouth once daily. clopidogrel (PLAVIX) 75 mg tablet Take 1 tablet by mouth once daily. gabapentin (NEURONTIN) 400 mg capsule Take 1 capsule by mouth twice daily as needed. hydrocortisone 2.5 % cream Apply to affected area once daily. ketoconazole (NIZORAL) 2 % shampoo lansoprazole (PREVACID) 30 mg capsule take 1 capsule by mouth twice a day albuterol HFA (PROAIR HFA) 90 mcg/actuation inhaler Inhale 2 Puffs as instructed every 4 hours as needed. nitroglycerin (NITROLINGUAL) 400 mcg/spray spray one every 5 minutes x3 as needed aspirin 81 mg chewable tablet Take 1 tablet by mouth once daily. hydrOXYchloroQUINE (PLAQUENIL) 200 mg tablet Take 1 tablet by mouth twice daily. (Patient taking differently: Take 200 mg by mouth once daily.) Cholecalciferol, Vitamin D3, 125 mcg (5,000 unit) cap Take 1 capsule by mouth once daily. Blood-Glucose Meter (CONTOUR METER) monitoring kit Dispense 1 kit. Dx: Type 1 DM - Controlled E10.9 insulin glargine (LANTUS U-100 INSULIN) 100 unit/mL injection 46 units every 24 hr for insulin pump failure Insulin Syringe-Needle U-100 (BD ULTRAFINE INSULIN) 1 mL 31 gauge x 09/02 use as directed if pump fails up to 6 times daily Lactobacillus acidophilus (PROBIOTIC) 10 billion cell cap Take 1 capsule by mouth once daily. multivitamin tablet Take 1 tablet by mouth once daily. acetaminophen (TYLENOL 8 HOUR) 650 mg CR tablet Take 1 tablet by mouth every 8 hours as needed. blood sugar diagnostic (BLOOD GLUCOSE TEST) test strip Test blood sugar(s) 6 times daily. Dx: E 10.65, Z96.41 fluticasone (FLONASE) 50 mcg/actuation nasal spray Use 2 Sprays in each nostril once daily. Rinse mouth after use. blood sugar diagnostic (CONTOUR TEST STRIPS) test strip Test blood sugar(s) 6 times daily. Dx: Type 1 DM - Controlled E10.9 Insulin: Yes Biotin 1 mg tab Take 1 tablet by mouth once daily. No current facility-administered medications for this visit. ALLERGIES Allergen Reactions Aggrenox [Aspirin-D* MIGRAINES AND VOMITING Amitriptyline Other: See Comments Confusion, falls Cephalexin (Bulk) GI Upset Cymbalta [Duloxetin* Unknown Doxycycline GI Upset headache Duricef [Cefadroxil] Hives Ephedrine Other: See Comments tachycardia, but pt. states she still uses nose spray Ilosone [Other] Swelling tachycardia Iodine itching after prolonged use Levaquin [Levofloxa* Other: See Comments Achilles tendon problem Lyrica [Pregabalin] Other: See Comments Dizziness at 225mg twice daily Nortriptyline Other: See Comments vertigo Oxycodone Mental Status Change Percocet [Oxycodone* Unknown Sulfa (Sulfonamide * Hives blisters PAST SURGICAL HISTORY Procedure Laterality Date BREAST BIOPSY COLONOSCOPY FLX DX W/COLLJ SPEC WHEN PFRMD 02/26/2204 Colonoscopy COLONOSCOPY FLX DX W/COLLJ SPEC WHEN PFRMD 08/29/15 Colonoscopy COLONOSCOPY FLX DX W/COLLJ SPEC WHEN PFRMD 11/10/2018 Colonoscopy EGD 04/15/2002 ESOPHAGOGASTRODUODENOSCOPY TRANSORAL DIAGNOSTIC 11/10/2018 EGD EXC BREAST LES PREOP PLMT RAD MARKER OPEN 1 LES 03/2008 OPEN REPAIR OF ROTATOR CUFF CHRONIC left rotator cuff PAST SURGICAL HISTORY OF tonsilectomy and adenoidectomy PAST SURGICAL HISTORY OF right breast lumpectomy PAST SURGICAL HISTORY OF x 3 PAST SURGICAL HISTORY OF 1992 right thumb trigger finger PAST SURGICAL HISTORY OF hand surgery PAST SURGICAL HISTORY OF nose surgery PAST SURGICAL HISTORY OF age 17 axillary cyst removal PAST SURGICAL HISTORY OF 2000 heart cath with stent placement PAST SURGICAL HISTORY OF CARDIAC CAATH 2000, 2001, AND 2004 PREOP PLACEMENT NEEDLE LOC STEREOTACTIC CORE BIOPSY 02/24/08 LEFT - benign FAMILY HISTORY Problem Relation Age of Onset Cancer Mother breast (diagnosed mid 50's) Heart Mother valvular other (Other) Father leukemia (dx'd age 55) Asthma Paternal Grandmother Diabetes Paternal Grandmother Colon Cancer Other none other (autoimmune def) Daughter Social History Tobacco Use Smoking status: Never Smokeless tobacco: Never Substance Use Topics Alcohol use: No Drug use: No REVIEW OF SYSTEMS GENERAL: Negative for Malaise, significant weight loss, fever RESPIRATORY: Negative for cough, wheezing and shortness of breath CARDIOVASCULAR: Negative for chest pain, leg swelling and palpitations GI: Negative for abdominal discomfort, blood in stools or black stools and change in bowel habits : Negative for dysuria, frequency and incontinence MUSCULOSKELETAL: Negative for joint pain or swelling, back pain, and muscle pain. SKIN: Negative for lesions, rash, and itching. HEMATOLOGY/LYMPHOLOGY Negative for prolonged bleeding, bruising easily, and swollen nodes. ENDOCRINE: Negative for cold or heat intolerance, polyuria, polydipsia and goiter. NEURO: negative Physical Exam: Constitutional: Pt is a well developed 76 year old female who is alert, oriented and cooperative Eyes: Following during examination. No redness or drainage. Respiratory: RR normal and nonlabored. Even breathing. No evidence of distress or shortness of breath. Psychology: Patient is engaged during conversation. Normal affect and mood. Does not appear depressed or anxious during encounter. Vascular: Dorsalis pedis and posterior tibial pulses nonpalpable b/l Capillary Fill time < 5 seconds to digits 1-5 b/l Skin temperature warm to cool proximal to distal b/l Hair growth absent to digits Bruising is noted to right 2nd, 3rd, 4th toe Neurological: decreased light touch/epicritic sensation b/l decreased protective sensation + significant neurological deficits Dermatological: Nails 1-5 b/l appear thick, discolored, painful. Webspaces clean and dry 1-4 b/l. Skin appears well hydrated and supple. good color, texture, turgor. No open lesions present. Callus present to lateral aspect of b/l 5th toe Musculoskeletal/Orthopaedic: Patient has pain to palpation of toes 2-5 right foot Adductovarus deformity of b/l 5th toe Radiographs: 3 views right foot ordered December 30, 2021: I have personally reviewed and interpreted these XR myself: no acute fracture ASSESSMENT: PLAN: 1. History and physical examination performed. 2. XR reviewed with patient and interpreted today 3. Discussed bruising of foot. Likely contusion. Recommend firm sole sneaker and wider shoes to prevent rubbing. Discussed post-op shoe but patient declined out of fear of falling. 4. Toenails 1-5 b/l debrided in length and thickness 5. Callus reduced with dremmel to b/l feet. Lauren Rangel DPM Podiatry [address] [facility] [id number] Dept: [phone] Dept AMB ROOMING INTAKE FLOWSHEET DATA Risk Screening Do you have concerns about personal safety or safety in the home?: No Pain Pain Level: 5 Pain Location: Foot-Right Description: Aching Duration Amount of Time: 3 Duration Units: Weeks Frequency: Continuous Intervention/Comfort measure: Reposition, Relaxation, Distractions Comments: Tramadol at home for pain Patient presents with: Right Foot - Established Patient, Pain, Foot Trauma: Dropped vacuum on foot Patient presents for Right foot injury. States 3 weeks ago she dropped a vacuum on her foot. Bruising noted to toes. X-Ray done today. documented in this encounter [facility] 12-27-2021 Miscellaneous Notes Patient stated that she dropped meds in sink with water. Patient has been identified by name and date of : Yes Patient phones for refill(s): Requested Prescriptions Pending Prescriptions Disp Refills clonazePAM (KLONOPIN) 1 mg tablet 90 tablet 0 Sig: Take 1 tablet by mouth at bedtime as needed for up to 180 days. Date of last office visit in primary care: 11/21/2021 Last 2 Encounter Wt Readings: Date: Wt: 11/05/2021 91.6 kg (202 lb) 05/10/2021 88.9 kg (196 lb) Previous labs/tests for medication: Not applicable Please advise. Thank you. Rylee Alvarado LPN documented in this encounter [facility] 12-24-2021 Miscellaneous Notes Patient called in stating that she dropped a vacuum on right foot last week. Patient states she is still having pain. Advised patient if she is concerned about it to present to . Patient declined. Patient states she has previously broke all toe in past on that foot. Offered patient earliest appointment for evaluation. Informed patient to arrive 30 minutes early for an xray. Jacqueline Rabago LPN documented in this encounter [facility] 11-21-2021 History of Present illness Narrative This Team Access Model visit is a virtual encounter. It required patient-provider interaction for the medical decision making as documented below. Patient agrees to the visit: Yes Patient Location: [place] CC: Patient presents with: Hypertension F/U Diabetes 3 Month HPI Mckayla Russo is a 76 year old female who is contacted today for a virtual visit. This is an established patient of Dr. Darryn Anderson MD. Chronic Constipation: Seeing GI on Dec 25. No longer taking Linzess because it caused a large amount of diarrhea. No current nausea vomiting abdominal painor constipation. DIABETES MELLITUS: Ms. Russo denies excessive thirst or increased frequency of urination, chest pain or dyspnea , numbness, tingling or pain in extremities, new or unusual visual symptoms, low sugar/hypoglycemic reactions, weight loss/gain, lightheadedness/dizziness and bowel changes/loose stools. Follows a diabetic diet most of the time. She is compliant with medication(s) and is tolerating med(s) without any side effects. She reports checking her glucose on a CGM - was 109 fasting this morning but going to get a steroid injection which will increase her blood sugar. Patient's last HgA1C was Hemoglobin A1C (%) Date Value 05/07/2021 7.5 05/01/2020 7.5 Hemoglobin A1C (POCT) (%) Date Value 10/18/2020 7.3 ) Last Ophthalmology exam was within the past [address] Etienne. Sees Dr. Palm with endocrinology. Last saw a few weeks ago. HgbA1c was completed at that visit and per patient A1c was 6.8 at that visit. HTN: Ms. Russo indicates that she is feeling well and denies any symptoms referable to elevated blood pressure. Specifically denies headache, chest pain, palpitations, dyspnea and peripheral edema. Patient denies any side effects of her medication(s) and is compliant with their regimen. She does check BP's away from this office with average BP's in the 120s/60s range. Mckayla denies regular aerobic exercise. She watches her diet for sodium, low fat and low cholesterol most of the time. Last 3 Encounter BP Readings: Date: BP: 11/05/2021 120/70 10/24/2021 134/76 09/26/2021 134/86 Left shoulder pain: Injured it by overuse last fall and suddenly started hurting again. Has been evaluated by pain management and patient has an appointment scheduled to have steroid injection. Uses clonazepam for anxiety and it helps her sleep. Has been on this for years. Usually does not use very often, but recent shoulder pain is making her need this more often Sleep: is characterized by difficulty falling asleep, difficulty staying asleep Alcohol use: does not drink any alcohol Drug use: No Appetite: good Stresses: Major stressor:Increase in pain and chronic health conditions. Suicidal Thoughts: No suicidal ideation, intent or plan Support: Comes from multiple sources including REVIEW OF SYSTEMS General: no fevers, no chills, no night sweats, no recurrent infections, no change in appetite, no change in energy and no significant changes in weight Respiratory: no cough, no wheezing, no shortness of breath, no hemoptysis Cardiovascular: no chest pain, no chest pressure, no palpitations and no swelling GI: No nausea, vomiting, or diarrhea Endocrine: no cold intolerance, no heat intolerance, no polyuria, no polyphagia and no polydipsia Neurologic: No headache, weakness, numbness, tingling, dizziness, syncope. PAST MEDICAL HISTORY Diagnosis Date Abnormal mammogram, unspecified left breast BPPV (benign paroxysmal positional vertigo) 02/11/2015 BPV (benign positional vertigo) CAD (coronary artery disease) Carotid stenosis CARPAL TUNNEL BILATERRAL 08/08/2005 Coronary artery disease involving bad river band coronary artery Dr. Pederson follows regularly; S/P PTCA and stenting at [facility] [place], 2000 Coronary atherosclerosis of unspecified type of vessel, bad river band or graft Disorder of bone and cartilage, unspecified Diverticulosis of colon (without mention of hemorrhage) DKA (diabetic ketoacidoses) 09/28/2019 Esophagitis External hemorrhoids without mention of 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 Insomnia Internal hemorrhoids without mention of 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 Mammographic microcalcification Mild intermittent asthma without 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 Adult onset Mild nonproliferative diabetic retinopathy of both eyes ([facility]) 12/06/2018 Other and unspecified hyperlipidemia Other forms of migraine Other psoriasis Postsurgical percutaneous transluminal coronary angioplasty status Rheumatoid arthritis(714.0) RLS (restless legs syndrome) 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 Thoracic or lumbosacral neuritis or radiculitis, unspecified 03/01/2012 Type I (juvenile type) diabetes mellitus with neurological manifestations, not stated as 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.61) 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, 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) Unspecified asthma(493.90) Unspecified essential hypertension Unspecified hereditary and idiopathic peripheral neuropathy PAST SURGICAL HISTORY Procedure Laterality Date BREAST BIOPSY COLONOSCOPY FLX DX W/COLLJ SPEC WHEN PFRMD 02/26/2204 Colonoscopy COLONOSCOPY FLX DX W/COLLJ SPEC WHEN PFRMD 08/29/15 Colonoscopy COLONOSCOPY FLX DX W/COLLJ SPEC WHEN PFRMD 11/10/2018 Colonoscopy EGD 04/15/2002 ESOPHAGOGASTRODUODENOSCOPY TRANSORAL DIAGNOSTIC 11/10/2018 EGD EXC BREAST LES PREOP PLMT RAD MARKER OPEN 1 LES 03/2008 OPEN REPAIR OF ROTATOR CUFF CHRONIC left rotator cuff PAST SURGICAL HISTORY OF tonsilectomy and adenoidectomy PAST SURGICAL HISTORY OF right breast lumpectomy PAST SURGICAL HISTORY OF x 3 PAST SURGICAL HISTORY OF 1992 right thumb trigger finger PAST SURGICAL HISTORY OF hand surgery PAST SURGICAL HISTORY OF nose surgery PAST SURGICAL HISTORY OF age 17 axillary cyst removal PAST SURGICAL HISTORY OF 2000 heart cath with stent placement PAST SURGICAL HISTORY OF CARDIAC CAATH 2000, 2001, AND 2004 PREOP PLACEMENT NEEDLE LOC STEREOTACTIC CORE BIOPSY 02/24/08 LEFT - benign ALLERGIES Aggrenox [Aspirin-Dipyridamole], Amitriptyline, Cephalexin (Bulk), Cymbalta [Duloxetine], Doxycycline, Duricef [Cefadroxil], Ephedrine, Ilosone [Other], Iodine, Levaquin [Levofloxacin], Lyrica [Pregabalin], Nortriptyline, Percocet [Oxycodone-Acetaminophen], and Sulfa (Sulfonamide Antibiotics) MEDICATIONS insulin lispro (HUMALOG U-100 INSULIN) 100 unit/mL injection as directed in Insulin pump up to 110 units daily. Dx E10.65 amLODIPine (NORVASC) 5 mg tablet Take 1 tablet by mouth once daily. losartan (COZAAR) 50 mg tablet Take 1 tablet by mouth once daily. pramipexole (MIRAPEX) 1 mg tablet Take 2 tablets by mouth daily at bedtime. atorvastatin (LIPITOR) 40 mg tablet Take 1 tablet by mouth once daily. clopidogrel (PLAVIX) 75 mg tablet Take 1 tablet by mouth once daily. linaCLOtide (LINZESS) 72 mcg capsule Take 1 capsule by mouth once daily. Administer on an empty stomach. Swallow whole; DO NOT crush or chew. gabapentin (NEURONTIN) 400 mg capsule Take 1 capsule by mouth twice daily as needed. hydrocortisone 2.5 % cream Apply to affected area once daily. ketoconazole (NIZORAL) 2 % shampoo lansoprazole (PREVACID) 30 mg capsule take 1 capsule by mouth twice a day clonazePAM (KLONOPIN) 1 mg tablet Take 1 tablet by mouth at bedtime as needed for up to 180 days. fluticasone (FLONASE) 50 mcg/actuation nasal spray Use 2 Sprays in each nostril once daily. Rinse mouth after use. albuterol HFA (PROAIR HFA) 90 mcg/actuation inhaler Inhale 2 Puffs as instructed every 4 hours as needed. nitroglycerin (NITROLINGUAL) 400 mcg/spray spray one every 5 minutes x3 as needed aspirin 81 mg chewable tablet Take 1 tablet by mouth once daily. blood sugar diagnostic (CONTOUR TEST STRIPS) test strip Test blood sugar(s) 6 times daily. Dx: Type 1 DM - Controlled E10.9 Insulin: Yes urea (CARMOL) 40 % Apply to affected area as needed. blood sugar diagnostic (BLOOD GLUCOSE TEST) test strip Test blood sugar(s) 6 times daily. Dx: E 10.65, Z96.41 hydrOXYchloroQUINE (PLAQUENIL) 200 mg tablet Take 1 tablet by mouth twice daily. Cholecalciferol, Vitamin D3, 125 mcg (5,000 unit) cap Take 1 capsule by mouth once daily. Biotin 1 mg tab Take 1 tablet by mouth once daily. Blood-Glucose Meter (CONTOUR METER) monitoring kit Dispense 1 kit. Dx: Type 1 DM - Controlled E10.9 insulin glargine (LANTUS U-100 INSULIN) 100 unit/mL injection 46 units every 24 hr for insulin pump failure Insulin Syringe-Needle U-100 (BD ULTRAFINE INSULIN) 1 mL 31 gauge x 09/02 use as directed if pump fails up to 6 times daily Lactobacillus acidophilus (PROBIOTIC) 10 billion cell cap Take 1 capsule by mouth once daily. multivitamin tablet Take 1 tablet by mouth once daily. acetaminophen (TYLENOL 8 HOUR) 650 mg CR tablet Take 1 tablet by mouth every 8 hours as needed. FAMILY HISTORY Problem Relation Age of Onset Cancer Mother breast (diagnosed mid 50's) Heart Mother valvular other (Other) Father leukemia (dx'd age 55) Asthma Paternal Grandmother Diabetes Paternal Grandmother Colon Cancer Other none other (autoimmune def) Daughter Social History Tobacco Use Smoking status: Never Smoker Smokeless tobacco: Never Used Substance Use Topics Alcohol use: No Drug use: No EXAM: Virtual visit completed using video, limited exam completed. GENERAL: alert and appropriate, in no distress, well-hydrated, well nourished and happy, smiling, interactive EYES: no injection and visual acuity is grossly normal RESPIRATORY: breathing non-labored CHEST: equal chest rise with normal respiratory effort DATA REVIEWED: No new labs SPIROMETRY Never done ADVANCE DIRECTIVE DISCUSSION Never done DIABETIC FOOT EXAM due on 10/02/2021 HBA1C due on 11/04/2021 COVID-19 VACCINE(5 - Booster for Pfizer series) due on 11/29/2021 INFLUENZA(1) due on 12/19/2021 DTAP,TDAP,TD(2 - Td or Tdap) due on 01/14/2022 URINE ALBUMIN:CREATININE RATIO due on 05/07/2022 LDL CHOLESTEROL due on 05/07/2022 ANNUAL PCP TEAM CHRONIC DISEASE VISIT due on 10/24/2022 DILATED RETINAL EXAM due on 10/25/2022 BP CONTROLLED (<130/80) due on 11/05/2022 COLORECTAL CANCER SCREENING due on 11/11/2023 BONE DENSITY Completed HEPATITIS C SCREENING Completed SHINGRIX VACCINE Completed PNEUMOCOCCAL: 65+ Completed ASSESSMENT/PLAN: 1. Essential hypertension - ICD9: 401.9, ICD10: I10 (primary diagnosis) - good control - Continue current medication(s) - Recommended regular aerobic exercise. - Recommend home blood pressure monitoring, to bring results in on next visit - Goal of BP <130/80 - COMP METABOLIC PANEL - LOSARTAN 100 MG TABLET 2. 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 Anxiety state - ICD9: 300.00, ICD10: F41.1 - CLONAZEPAM 1 MG TABLET 4. Left shoulder pain, unspecified chronicity - ICD9: 719.41, ICD10: M25.512 - continue with treatment as ordered by pain management 5. Chronic constipation - ICD9: 564.00, ICD10: K59.09 - keep upcoming GI specialist 6. Vitamin D deficiency - ICD9: 268.9, ICD10: E55.9 - VITAMIN D 25 HYDROXY Prescription instructions reviewed with patient as applicable. Potential red flag symptoms discussed with the patient. Reviewed appropriate action plan to take if red flag symptoms occur. Patient agreeable to treatment plan. During this patient visit I have spent approximately 30 minutes in counseling regarding weight loss, treatment options, medications and coordinating care. Sultana Harvey APRN.CNP documented in this encounter [facility] 11-13-2021 Instructions Lauren Rangel - 11/13/2021 8:25 AM EDT You have callus on right 5th toe caused by hammertoe Continue with padding and periodic debridement in office Small bleed present to callus today. Band aide applied. If you have any issues such as redness or drainage or warmth, call the office. documented in this encounter [facility] 11-13-2021 History of Present illness Narrative Images from the original note were not included. FOLLOW UP PODIATRIC OFFICE VISIT Chief Complaint: This 76 year old who presents for follow up:painful callus of right 5th toe Patient presents to clinic for painful callus of right 5th toe. She states that the side of her 5th toe hurts when it rubs in the shoe. Patient has cut the side of her shoe out which has helped. She still has pain in the 5th toe and is here to have the callus filed. She did have what sounds like derotational arthroplasty a long time ago for what she describes as interdigital corn. PAIN EVALUATION 11/13/2021 0808 Pain Level: 10 pt states pain is 12 Pain Location: Other: See Comment bilateral feet right is worse than left Description: Aching;Sore;Sharp;Dull;Stabbing/N ot Incision;Burning Duration Amount of Time: 3 Duration Units: Weeks Frequency: Continuous Intervention/Comfort measure: Reposition;Relaxation Hemoglobin A1C Date Value Ref Range Status 05/07/2021 7.5 (H) 4.3 - 5.6 % Final Comment: [place] [employer] guidelines indicate that patients with HgbA1c in the range 5.7-6.4% are at increased risk for development of diabetes, and intervention by lifestyle modification may be beneficial. HgbA1c greater or equal to 6.5% is considered diagnostic of diabetes. PCP: Darryn Anderson MD PAST MEDICAL HISTORY Diagnosis Date Abnormal mammogram, unspecified left breast BPPV (benign paroxysmal positional vertigo) 02/11/2015 BPV (benign positional vertigo) CAD (coronary artery disease) Carotid stenosis CARPAL TUNNEL BILATERRAL 08/08/2005 Coronary artery disease involving bad river band coronary artery Dr. 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) 12/06/2018 Other and unspecified hyperlipidemia Other forms of migraine Other psoriasis Postsurgical percutaneous transluminal coronary angioplasty status Rheumatoid arthritis(714.0) RLS (restless legs syndrome) Stroke (cerebrum) (HCC) x3 Thoracic or lumbosacral neuritis or radiculitis, unspecified 03/01/2012 Type I (juvenile type) diabetes mellitus with neurological manifestations, not stated as 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.61) 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 Dx E10.65 amLODIPine (NORVASC) 5 mg tablet Take 1 tablet by mouth once daily. losartan (COZAAR) 50 mg tablet Take 1 tablet by mouth once daily. pramipexole (MIRAPEX) 1 mg tablet Take 2 tablets by mouth daily at bedtime. atorvastatin (LIPITOR) 40 mg tablet Take 1 tablet by mouth once daily. clopidogrel (PLAVIX) 75 mg tablet Take 1 tablet by mouth once daily. gabapentin (NEURONTIN) 400 mg capsule Take 1 capsule by mouth twice daily as needed. hydrocortisone 2.5 % cream Apply to affected area once daily. ketoconazole (NIZORAL) 2 % shampoo lansoprazole (PREVACID) 30 mg capsule take 1 capsule by mouth twice a day clonazePAM (KLONOPIN) 1 mg tablet Take 1 tablet by mouth at bedtime as needed for up to 180 days. albuterol HFA (PROAIR HFA) 90 mcg/actuation inhaler Inhale 2 Puffs as instructed every 4 hours as needed. nitroglycerin (NITROLINGUAL) 400 mcg/spray spray one every 5 minutes x3 as needed aspirin 81 mg chewable tablet Take 1 tablet by mouth once daily. blood sugar diagnostic (CONTOUR TEST STRIPS) test strip Test blood sugar(s) 6 times daily. Dx: Type 1 DM - Controlled E10.9 Insulin: Yes blood sugar diagnostic (BLOOD GLUCOSE TEST) test strip Test blood sugar(s) 6 times daily. Dx: E 10.65, Z96.41 hydrOXYchloroQUINE (PLAQUENIL) 200 mg tablet Take 1 tablet by mouth twice daily. (Patient taking differently: Take 200 mg by mouth once daily. ) Cholecalciferol, Vitamin D3, 125 mcg (5,000 unit) cap Take 1 capsule by mouth once daily. Biotin 1 mg tab Take 1 tablet by mouth once daily. Blood-Glucose Meter (CONTOUR METER) monitoring kit Dispense 1 kit. Dx: Type 1 DM - Controlled E10.9 insulin glargine (LANTUS U-100 INSULIN) 100 unit/mL injection 46 units every 24 hr for insulin pump failure Insulin Syringe-Needle U-100 (BD ULTRAFINE INSULIN) 1 mL 31 gauge x 5/16 use as directed if pump fails up to 6 times daily Lactobacillus acidophilus (PROBIOTIC) 10 billion cell cap Take 1 capsule by mouth once daily. multivitamin tablet Take 1 tablet by mouth once daily. acetaminophen (TYLENOL 8 HOUR) 650 mg CR tablet Take 1 tablet by mouth every 8 hours as needed. linaCLOtide (LINZESS) 72 mcg capsule Take 1 capsule by mouth once daily. Administer on an empty stomach. Swallow whole; DO NOT crush or chew. (Patient not taking: Reported on 11/13/2021 ) fluticasone (FLONASE) 50 mcg/actuation nasal spray Use 2 Sprays in each nostril once daily. Rinse mouth after use. (Patient not taking: Reported on 11/13/2021 ) urea (CARMOL) 40 % Apply to affected area as needed. (Patient not taking: Reported on 11/13/2021 ) No current facility-administered medications for this visit. ALLERGIES Allergen Reactions Aggrenox [Aspirin-D* MIGRAINES AND VOMITING Amitriptyline Other: See Comments Confusion, falls Cephalexin (Bulk) GI Upset Cymbalta [Duloxetin* Unknown Doxycycline GI Upset headache Duricef [Cefadroxil] Hives Ephedrine Other: See Comments tachycardia, but pt. states she still uses nose spray Ilosone [Other] Swelling tachycardia Iodine itching after prolonged use Levaquin [Levofloxa* Other: See Comments Achilles tendon problem Lyrica [Pregabalin] Other: See Comments Dizziness at 225mg twice daily Nortriptyline Other: See Comments vertigo Percocet [Oxycodone* Unknown Sulfa (Sulfonamide * Hives blisters PAST SURGICAL HISTORY Procedure Laterality Date BREAST BIOPSY COLONOSCOPY FLX DX W/COLLJ SPEC WHEN PFRMD 02/26/2204 Colonoscopy COLONOSCOPY FLX DX W/COLLJ SPEC WHEN PFRMD 08/29/15 Colonoscopy COLONOSCOPY FLX DX W/COLLJ SPEC WHEN PFRMD 11/10/2018 Colonoscopy EGD 04/15/2002 ESOPHAGOGASTRODUODENOSCOPY TRANSORAL DIAGNOSTIC 11/10/2018 EGD EXC BREAST LES PREOP PLMT RAD MARKER OPEN 1 LES 03/2008 OPEN REPAIR OF ROTATOR CUFF CHRONIC left rotator cuff PAST SURGICAL HISTORY OF tonsilectomy and adenoidectomy PAST SURGICAL HISTORY OF right breast lumpectomy PAST SURGICAL HISTORY OF x 3 PAST SURGICAL HISTORY OF 1992 right thumb trigger finger PAST SURGICAL HISTORY OF hand surgery PAST SURGICAL HISTORY OF nose surgery PAST SURGICAL HISTORY OF age 17 axillary cyst removal PAST SURGICAL HISTORY OF 2000 heart cath with stent placement PAST SURGICAL HISTORY OF CARDIAC CAATH 2000, 2001, AND 2004 PREOP PLACEMENT NEEDLE LOC STEREOTACTIC CORE BIOPSY 02/24/08 LEFT - benign Physical Exam: OBJECTIVE: Constitutional: Pt is a well developed 76 year old female who is alert, oriented, cooperative and in no apparent distress. Eyes: Following during examination. No redness or drainage. Respiratory: RR normal and nonlabored. Even breathing. No evidence of distress. Psychology: Patient is engaged during conversation. Normal affect and mood. Does not appear depressed or anxious. NVSI unchanged from previous visit. Dermatological: Small hyperkeratosis present to the lateral aspect of right 5th toe. No ulceration upon debridement. Small pin point bleed noted with debridement of callus. Musculoskeletal/Orthopaedic: Patient has pain to palpation of right 5th toe Adductovarus deformity is present to right 5th toe ASSESSMENT: (L85.9) Hyperkeratosis (primary encounter diagnosis) (M20.41) Hammertoe of right foot PLAN: Discussed callus of right 5th toe. The callus on 5th toe is caused by hammertoe. She was informed that she can continue with periodic debridement of callus but the callus will likely return. We discussed acid application but I believe that because of the deformity, the callus will return. She declined acid application today. We discussed surgical intervention by way of additional bone resection vs amputation of 5th toe. She is not interested in surgery. Today, the callus was debrided with 15 blade. Small bleed present and controlled with band aide. If she has any issues, she is to contact the office. F/u as scheduled for nail care. In order to perform a complete physical exam, limited shaving of callus area was performed. This incidental service is integral to the evaluation and management visit in order to appropriately manage and treat the patient (for their complaint or for this visit). Lauren Rangel DPM AMB ROOMING INTAKE FLOWSHEET DATA Pain Pain Level: 10 (pt states pain is 12) Pain Location: Other: See Comment (bilateral feet right is worse than left) Description: Aching, Sore, Sharp, Dull, Stabbing/Not Incision, Burning Duration Amount of Time: 3 Duration Units: Weeks Frequency: Continuous Intervention/Comfort measure: Reposition, Relaxation Patient presents with: Left Foot - Established Patient, callus, Pain Right Foot - Established Patient, callus, Pain Jacqueline Rabago LPN documented in this encounter [facility] 11-05-2021 History of Present illness Narrative Mckayla Russo 76 year old female returning for a routine follow-up of carotid disease for which no previous intervention has been performed. Berkley saw Dr. Arredondo at the beginning of the year, and 6 month f/up US was requested. She remains asymptomatic, with no s/s of TIA or stroke including amaurosis fugax, slurred speech, facial drooping, or weakness in an extremity. She is complaint with her medications, including daily ASA and statin therapy, and she returns today for routine noninvasive follow-up. We reviewed the symptoms of TIA/stroke including weakness or numbness in an extremity, slurred speech, facial droop, amaurosis fugax, and she does not have any symptoms. She understands that she should call or go to the ED should any of these symptoms develop and that delay could result in stroke. Previous duplex ultrasound findings: 04/04/21 Rt internal carotid: PSV 126, ICA/CCA Ratio 0.9, EDV 16 - 20-39% Lt internal carotid: PSV 183, ICA/CCA Ratio 1.9, EDV 34 - 60-79% PAST MEDICAL HISTORY Diagnosis Date Abnormal mammogram, unspecified left breast BPPV (benign paroxysmal positional vertigo) 02/11/2015 BPV (benign positional vertigo) CAD (coronary artery disease) Carotid stenosis CARPAL TUNNEL BILATERRAL 08/08/2005 Coronary artery disease involving bad river band coronary artery Dr. Pederson follows regularly; S/P PTCA and stenting at [facility], [place], 2000 Coronary atherosclerosis of unspecified type of vessel, bad river band or graft Disorder of bone and cartilage, unspecified Diverticulosis of colon (without mention of hemorrhage) DKA (diabetic ketoacidoses) 09/28/2019 Esophagitis External hemorrhoids without mention of 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 Insomnia Internal hemorrhoids without mention of 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 Mammographic microcalcification Mild intermittent asthma without 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 Adult onset Mild nonproliferative diabetic retinopathy of both eyes ([facility]) 12/06/2018 Other and unspecified hyperlipidemia Other forms of migraine Other psoriasis Postsurgical percutaneous transluminal coronary angioplasty status Rheumatoid arthritis(714.0) RLS (restless legs syndrome) 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 Thoracic or lumbosacral neuritis or radiculitis, unspecified 03/01/2012 Type I (juvenile type) diabetes mellitus with neurological manifestations, not stated as 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.61) 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, 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) Unspecified asthma(493.90) Unspecified essential hypertension Unspecified hereditary and idiopathic peripheral neuropathy PAST SURGICAL HISTORY Procedure Laterality Date BREAST BIOPSY COLONOSCOPY FLX DX W/COLLJ SPEC WHEN PFRMD 02/26/2204 Colonoscopy COLONOSCOPY FLX DX W/COLLJ SPEC WHEN PFRMD 08/29/15 Colonoscopy COLONOSCOPY FLX DX W/COLLJ SPEC WHEN PFRMD 11/10/2018 Colonoscopy EGD 04/15/2002 ESOPHAGOGASTRODUODENOSCOPY TRANSORAL DIAGNOSTIC 11/10/2018 EGD EXC BREAST LES PREOP PLMT RAD MARKER OPEN 1 LES 03/2008 OPEN REPAIR OF ROTATOR CUFF CHRONIC left rotator cuff PAST SURGICAL HISTORY OF tonsilectomy and adenoidectomy PAST SURGICAL HISTORY OF right breast lumpectomy PAST SURGICAL HISTORY OF x 3 PAST SURGICAL HISTORY OF 1992 right thumb trigger finger PAST SURGICAL HISTORY OF hand surgery PAST SURGICAL HISTORY OF nose surgery PAST SURGICAL HISTORY OF age 17 axillary cyst removal PAST SURGICAL HISTORY OF 2000 heart cath with stent placement PAST SURGICAL HISTORY OF CARDIAC CAATH 2000, 2001, AND 2004 PREOP PLACEMENT NEEDLE LOC STEREOTACTIC CORE BIOPSY 02/24/08 LEFT - benign Current Outpatient Medications on File Prior to Visit Medication Sig insulin lispro (HUMALOG U-100 INSULIN) 100 unit/mL injection as directed in Insulin pump up to 110 units daily. Dx E10.65 amLODIPine (NORVASC) 5 mg tablet Take 1 tablet by mouth once daily. losartan (COZAAR) 50 mg tablet Take 1 tablet by mouth once daily. pramipexole (MIRAPEX) 1 mg tablet Take 2 tablets by mouth daily at bedtime. atorvastatin (LIPITOR) 40 mg tablet Take 1 tablet by mouth once daily. clopidogrel (PLAVIX) 75 mg tablet Take 1 tablet by mouth once daily. linaCLOtide (LINZESS) 72 mcg capsule Take 1 capsule by mouth once daily. Administer on an empty stomach. Swallow whole; DO NOT crush or chew. gabapentin (NEURONTIN) 400 mg capsule Take 1 capsule by mouth twice daily as needed. hydrocortisone 2.5 % cream Apply to affected area once daily. ketoconazole (NIZORAL) 2 % shampoo lansoprazole (PREVACID) 30 mg capsule take 1 capsule by mouth twice a day clonazePAM (KLONOPIN) 1 mg tablet Take 1 tablet by mouth at bedtime as needed for up to 180 days. fluticasone (FLONASE) 50 mcg/actuation nasal spray Use 2 Sprays in each nostril once daily. Rinse mouth after use. albuterol HFA (PROAIR HFA) 90 mcg/actuation inhaler Inhale 2 Puffs as instructed every 4 hours as needed. nitroglycerin (NITROLINGUAL) 400 mcg/spray spray one every 5 minutes x3 as needed aspirin 81 mg chewable tablet Take 1 tablet by mouth once daily. glucagon (BAQSIMI) 3 mg/actuation nasal spray Use 1 [place] in the nose as needed for low blood sugar. May repeat after 15 minutes using a new device if there is no response. blood sugar diagnostic (CONTOUR TEST STRIPS) test strip Test blood sugar(s) 6 times daily. Dx: Type 1 DM - Controlled E10.9 Insulin: Yes urea (CARMOL) 40 % Apply to affected area as needed. blood sugar diagnostic (BLOOD GLUCOSE TEST) test strip Test blood sugar(s) 6 times daily. Dx: E 10.65, Z96.41 hydrOXYchloroQUINE (PLAQUENIL) 200 mg tablet Take 1 tablet by mouth twice daily. (Patient taking differently: Take 200 mg by mouth once daily. ) Cholecalciferol, Vitamin D3, 125 mcg (5,000 unit) cap Take 1 capsule by mouth once daily. Biotin 1 mg tab Take 1 tablet by mouth once daily. Blood-Glucose Meter (CONTOUR METER) monitoring kit Dispense 1 kit. Dx: Type 1 DM - Controlled E10.9 insulin glargine (LANTUS U-100 INSULIN) 100 unit/mL injection 46 units every 24 hr for insulin pump failure Insulin Syringe-Needle U-100 (BD ULTRAFINE INSULIN) 1 mL 31 gauge x 09/02 use as directed if pump fails up to 6 times daily Lactobacillus acidophilus (PROBIOTIC) 10 billion cell cap Take 1 capsule by mouth once daily. multivitamin tablet Take 1 tablet by mouth once daily. acetaminophen (TYLENOL 8 HOUR) 650 mg CR tablet Take 1 tablet by mouth every 8 hours as needed. No current facility-administered medications on file prior to visit. ALLERGIES Allergen Reactions Aggrenox [Aspirin-D* MIGRAINES AND VOMITING Amitriptyline Other: See Comments Confusion, falls Cephalexin (Bulk) GI Upset Cymbalta [Duloxetin* Unknown Doxycycline GI Upset headache Duricef [Cefadroxil] Hives Ephedrine Other: See Comments tachycardia, but pt. states she still uses nose spray Ilosone [Other] Swelling tachycardia Iodine itching after prolonged use Levaquin [Levofloxa* Other: See Comments Achilles tendon problem Lyrica [Pregabalin] Other: See Comments Dizziness at 225mg twice daily Nortriptyline Other: See Comments vertigo Percocet [Oxycodone* Unknown Sulfa (Sulfonamide * Hives blisters BP 120/70 (BP Site: Left Arm, BP Position: Sitting) Pulse 72 Resp 18 Ht 5' 1 (1.549 m) Wt 202 lb (91.6 kg) BMI 38.17 kg/m PHYSICAL EXAM: General Appearance: Well appearing, alert, in no acute distress, well-hydrated, well nourished.. Skin: Skin color, texture, turgor normal, no suspicious rashes or lesions. Head: Normocephalic, no masses, lesions, tenderness or abnormalities. Eyes: Anicteric sclera. Pupils are equally round and reactive to light. Extraocular movements are intact. . Ears: External ears normal, hearing is adequate. Neck: Supple, no bruits. Lungs: Breathing is easy and unlabored. Heart: RRR without gallop, or rubs. Extremities: No deformities, edema, skin discoloration, clubbing or cyanosis. Good capillary refill. Neurologic: Gait normal. Sensation and strength grossly intact. Current duplex findings: 10/22/21 Rt internal carotid: PSV 89, ICA/CCA Ratio 0.9, EDV 15 - 20-39% Lt internal carotid: PSV 202, ICA/CCA Ratio 2.5, EDV 40 - 60-79% ASSESSMENT/PLAN: (I65.23) Bilateral carotid artery stenosis (primary encounter diagnosis) Comment: Asymptomatic and stable with no significant progression of stenosis noted in B ICA on current US; Discussed that risks associated with surgery do not yet outweigh benefit, as she remains asymptomatic Plan: US CAROTID ARTERIES [facility] in 1 year; Continue asa & statin; Continue to try to stay active & healthy; Monitor for any s/s of TIA or stroke and call 911 - pt reports somewhat recent detached L retina with repair, and vision is not the same as before; Discussed that if there are any changes from now, pt should let us and her eye doctor know. FOLLOW-UP: Therefore, patient will return for another follow-up exam and duplex scan in 1 year. Call with any questions or concerns. The patient is currently taking a statin: Yes The patient is currently taking aspirin: Yes I spent 20 minutes in the visit, with more than 50% of the total [id number] time of the visit in counseling / coordination of care. Manuela Thomas APRN.CNP documented in this encounter [facility] 11-05-2021 Instructions Manuela Thomas APRN.CNP - 11/05/2021 9:26 AM EDT Information on Stroke: 1. F.A.S.T: F - Facial Droop A - Arms: Raise both arms, one arm will drift downward S - Speech: Slurred or strange sounds when speaking T - Time: Call 911 immediately 2. If you have new or worsening stroke symptoms: Call 911 3. Examples of symptoms: A. Sudden weakness or numbness B. Sudden difficulty seeing C. Sudden confusion or slurred speech D. Sudden problems with balance, coordination E. Sudden severe headache, with no known cause F. Difficulty swallowing 4. Know your personal risks for stroke: Age, sex, race, family history, high cholesterol, alcohol intake, weight, inactive lifestyle, carotid or coronary artery disease. 5. Can you make changes in your personal risks? How? 6. Know what medications you are taking to avoid another stroke. documented in this encounter [facility] 10-24-2021 History of Present illness Narrative CC: Patient presents with: Recheck: Follow up constipation HPI Mckayla Russo is a 76 year old female who presents today for follow up on constipation and new medication. Patient has chronic constipation, and over the years has tried numerous medications without relief. 4 weeks ago started a low dose Linzess. Patient reports having soft bowel movement daily except 3 times of having liquid stool once with incontinence. States last BM was 2 days ago, which was the diarrhea with incontinence. Last colonoscopy was in 2018, was seeing GI for constipation, but last saw in 2019. Denies any abdominal pain, nausea, vomiting, or decreased appetite. REVIEW OF SYSTEMS General: no fevers, no chills, no night sweats, no recurrent infections, no change in appetite, no change in energy and no significant changes in weight Respiratory: no cough, no wheezing, no shortness of breath, no hemoptysis Cardiovascular: no chest pain, no chest pressure, no palpitations and no swelling GI: See HPI Neurologic: No headache, weakness, numbness, tingling, dizziness, syncope. PAST MEDICAL HISTORY Diagnosis Date Abnormal mammogram, unspecified left breast BPPV (benign paroxysmal positional vertigo) 02/11/2015 BPV (benign positional vertigo) CAD (coronary artery disease) Carotid stenosis CARPAL TUNNEL BILATERRAL 08/08/2005 Coronary artery disease involving bad river band coronary artery Dr. Pederson follows regularly; S/P PTCA and stenting at [facility] [place], 2000 Coronary atherosclerosis of unspecified type of vessel, bad river band or graft Disorder of bone and cartilage, unspecified Diverticulosis of colon (without mention of hemorrhage) DKA (diabetic ketoacidoses) 09/28/2019 Esophagitis External hemorrhoids without mention of 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 Insomnia Internal hemorrhoids without mention of 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 Mammographic microcalcification Mild intermittent asthma without 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 Adult onset Mild nonproliferative diabetic retinopathy of both eyes ([facility]) 12/06/2018 Other and unspecified hyperlipidemia Other forms of migraine Other psoriasis Postsurgical percutaneous transluminal coronary angioplasty status Rheumatoid arthritis(714.0) RLS (restless legs syndrome) 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 Thoracic or lumbosacral neuritis or radiculitis, unspecified 03/01/2012 Type I (juvenile type) diabetes mellitus with neurological manifestations, not stated as 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.61) 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, 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) Unspecified asthma(493.90) Unspecified essential hypertension Unspecified hereditary and idiopathic peripheral neuropathy PAST SURGICAL HISTORY Procedure Laterality Date BREAST BIOPSY COLONOSCOPY FLX DX W/COLLJ SPEC WHEN PFRMD 02/26/2204 Colonoscopy COLONOSCOPY FLX DX W/COLLJ SPEC WHEN PFRMD 08/29/15 Colonoscopy COLONOSCOPY FLX DX W/COLLJ SPEC WHEN PFRMD 11/10/2018 Colonoscopy EGD 04/15/2002 ESOPHAGOGASTRODUODENOSCOPY TRANSORAL DIAGNOSTIC 11/10/2018 EGD EXC BREAST LES PREOP PLMT RAD MARKER OPEN 1 LES 03/2008 OPEN REPAIR OF ROTATOR CUFF CHRONIC left rotator cuff PAST SURGICAL HISTORY OF tonsilectomy and adenoidectomy PAST SURGICAL HISTORY OF right breast lumpectomy PAST SURGICAL HISTORY OF x 3 PAST SURGICAL HISTORY OF 1992 right thumb trigger finger PAST SURGICAL HISTORY OF hand surgery PAST SURGICAL HISTORY OF nose surgery PAST SURGICAL HISTORY OF age 17 axillary cyst removal PAST SURGICAL HISTORY OF 2000 heart cath with stent placement PAST SURGICAL HISTORY OF CARDIAC CAATH 2000, 2001, AND 2004 PREOP PLACEMENT NEEDLE LOC STEREOTACTIC CORE BIOPSY 02/24/08 LEFT - benign ALLERGIES Aggrenox [Aspirin-Dipyridamole], Amitriptyline, Cephalexin (Bulk), Cymbalta [Duloxetine], Doxycycline, Duricef [Cefadroxil], Ephedrine, Ilosone [Other], Iodine, Levaquin [Levofloxacin], Lyrica [Pregabalin], Nortriptyline, Percocet [Oxycodone-Acetaminophen], and Sulfa (Sulfonamide Antibiotics) MEDICATIONS pramipexole (MIRAPEX) 1 mg tablet Take 2 tablets by mouth daily at bedtime. atorvastatin (LIPITOR) 40 mg tablet Take 1 tablet by mouth once daily. clopidogrel (PLAVIX) 75 mg tablet Take 1 tablet by mouth once daily. linaCLOtide (LINZESS) 72 mcg capsule Take 1 capsule by mouth once daily. Administer on an empty stomach. Swallow whole; DO NOT crush or chew. gabapentin (NEURONTIN) 400 mg capsule Take 1 capsule by mouth twice daily as needed. hydrocortisone 2.5 % cream Apply to affected area once daily. ketoconazole (NIZORAL) 2 % shampoo lansoprazole (PREVACID) 30 mg capsule take 1 capsule by mouth twice a day clonazePAM (KLONOPIN) 1 mg tablet Take 1 tablet by mouth at bedtime as needed for up to 180 days. fluticasone (FLONASE) 50 mcg/actuation nasal spray Use 2 Sprays in each nostril once daily. Rinse mouth after use. albuterol HFA (PROAIR HFA) 90 mcg/actuation inhaler Inhale 2 Puffs as instructed every 4 hours as needed. nitroglycerin (NITROLINGUAL) 400 mcg/spray spray one every 5 minutes x3 as needed aspirin 81 mg chewable tablet Take 1 tablet by mouth once daily. glucagon (BAQSIMI) 3 mg/actuation nasal spray Use 1 Scotia in the nose as needed for low blood sugar. May repeat after 15 minutes using a new device if there is no response. insulin lispro (HUMALOG U-100 INSULIN) 100 unit/mL injection as directed in Insulin pump up to 110 units daily. Dx E10.65 amLODIPine (NORVASC) 5 mg tablet Take 1 tablet by mouth once daily. blood sugar diagnostic (CONTOUR TEST STRIPS) test strip Test blood sugar(s) 6 times daily. Dx: Type 1 DM - Controlled E10.9 Insulin: Yes losartan (COZAAR) 50 mg tablet Take 1 tablet by mouth once daily. urea (CARMOL) 40 % Apply to affected area as needed. blood sugar diagnostic (BLOOD GLUCOSE TEST) test strip Test blood sugar(s) 6 times daily. Dx: E 10.65, Z96.41 hydrOXYchloroQUINE (PLAQUENIL) 200 mg tablet Take 1 tablet by mouth twice daily. Cholecalciferol, Vitamin D3, 125 mcg (5,000 unit) cap Take 1 capsule by mouth once daily. Biotin 1 mg tab Take 1 tablet by mouth once daily. Blood-Glucose Meter (CONTOUR METER) monitoring kit Dispense 1 kit. Dx: Type 1 DM - Controlled E10.9 insulin glargine (LANTUS U-100 INSULIN) 100 unit/mL injection 46 units every 24 hr for insulin pump failure Insulin Syringe-Needle U-100 (BD ULTRAFINE INSULIN) 1 mL 31 gauge x 5/16 use as directed if pump fails up to 6 times daily Lactobacillus acidophilus (PROBIOTIC) 10 billion cell cap Take 1 capsule by mouth once daily. multivitamin tablet Take 1 tablet by mouth once daily. acetaminophen (TYLENOL 8 HOUR) 650 mg CR tablet Take 1 tablet by mouth every 8 hours as needed. FAMILY HISTORY Problem Relation Age of Onset Cancer Mother breast (diagnosed mid 50's) Heart Mother valvular other (Other) Father leukemia (dx'd age 55) Asthma Paternal Grandmother Diabetes Paternal Grandmother Colon Cancer Other none other (autoimmune def) Daughter Social History Tobacco Use Smoking status: Never Smoker Smokeless tobacco: Never Used Substance Use Topics Alcohol use: No Drug use: No PHYSICAL EXAM BP 134/76 Pulse 68 General Appearance: well appearing, in no acute distress, alert Eyes: conjunctiva pink and moist, no icterus, sclera white, non-injected Lungs: Lungs clear to auscultation. No wheezing, rhonchi, rales. Heart: RRR without murmur, gallop, or rubs. No ectopy Abdomen: Abdomen soft, non-tender. Bowel sounds normal. No masses, organomegaly Extremities: No deformities, edema, skin discoloration, clubbing or cyanosis. Good capillary refill. Health maintenance reviewed with patient: SPIROMETRY Never done BP CONTROLLED (<130/80) Never done ADVANCE DIRECTIVE DISCUSSION Never done DILATED RETINAL EXAM due on 08/20/2021 DIABETIC FOOT EXAM due on 10/02/2021 HBA1C due on 11/04/2021 COVID-19 VACCINE(5 - Booster for Pfizer series) due on 11/29/2021 INFLUENZA(1) due on 12/19/2021 DTAP,TDAP,TD(2 - Td or Tdap) due on 01/14/2022 URINE ALBUMIN:CREATININE RATIO due on 05/07/2022 LDL CHOLESTEROL due on 05/07/2022 ANNUAL PCP TEAM CHRONIC DISEASE VISIT due on 09/26/2022 COLORECTAL CANCER SCREENING due on 11/11/2023 BONE DENSITY Completed HEPATITIS C SCREENING Completed SHINGRIX VACCINE Completed PNEUMOCOCCAL: 65+ Completed DATA REVIEWED: No new labs ASSESSMENT/PLAN: 1. Chronic constipation - ICD9: 564.00, ICD10: K59.09 (primary diagnosis) - Linzess appears to be working, but with the 3 episodes of diarrhea I am concerned if it continues we will have to stop this medication. Discussed this concern with patient. Patient also needs to see gastroenterology again since this has continued for so long. Repeat colonoscopy may be indicated. - CONSULT TO GASTROENTEROLOGY - call for any further diarrhea 2. Type 1 diabetes mellitus with diabetic neuropathy (HCC) - ICD9: 250.61, 357.2, ICD10: E10.40 - needing refill - needs routine follow up to review this - INSULIN LISPRO (U-100) 100 UNIT/ML SUBCUTANEOUS SOLUTION 3. Essential hypertension - ICD9: 401.9, ICD10: I10 - needing refill - needs routine follow up to review this - LOSARTAN 50 MG TABLET Prescription instructions reviewed with patient as applicable. Potential red flag symptoms discussed with the patient. Reviewed appropriate action plan to take if red flag symptoms occur. Patient agreeable to treatment plan. Sultana Harvey APRN.CNP documented in this encounter [facility] 10-22-2021 Miscellaneous Notes October 22, 2021 PID: [id number] Mckayla Russo [address] [place] [address] Dear Ms. Russo, We are pleased to inform you that the results of your recent breast imaging exam on 10/22/2021 are normal. Early detection of cancer is very important. We also understand recommendations regarding breast cancer screening are controversial. Please discuss with your primary care provider which strategy is best for you and whether a mammogram is right for you. Your imaging studies and report will be kept on file at [facility] as part of your permanent medical record and are available for your continuing care. Thank you for allowing us to help in meeting your health care needs. Sincerely, Dr. Peck Interpreting Radiologist [facility] (Normal over 40) documented in this encounter [facility] 10-22-2021 Miscellaneous Notes Pts reports she has been out of these medications for a while. Patient has been identified by name and date of : Yes Spouse phones for refill(s): Pending Prescriptions Disp Refills PRAMIPEXOLE 1 MG TABLET 180 tablet 1 Sig: Take 2 tablets by mouth daily at bedtime. FARHANA: No ATORVASTATIN 40 MG TABLET 90 tablet 3 Sig: Take 1 tablet by mouth once daily. FARHANA: No Date of last office visit in primary care: 09/26/21 Future visit: 10/24/21 Last 2 Encounter Wt Readings: Date: Wt: 05/10/2021 88.9 kg (196 lb) 03/25/2021 91.6 kg (202 lb) Previous labs/tests for medication: Cholesterol: Triglycerides (mg/dL) Date Value 03/31/2017 119 HDL Cholesterol (mg/dL) Date Value 05/07/2021 69 LDL Cholesterol (mg/dL) Date Value 05/07/2021 68 ALT (U/L) Date Value 08/16/2021 31 03/01/2021 24 Non HDL Cholesterol (mg/dL) Date Value 05/07/2021 86 Blood Pressure: BUN (mg/dL) Date Value 05/01/2020 18 Sodium (mmol/L) Date Value 05/01/2020 139 Last 1 Encounter BP Readings: Date: BP: 09/26/2021 134/86 Liver Function: ALT (U/L) Date Value 08/16/2021 31 03/01/2021 24 AST (U/L) Date Value 08/16/2021 37 03/01/2021 29 Please advise. Thank you. Rosalba Ren RN documented in this encounter [facility] 10-22-2021 History of Present illness Narrative Radiology Service Progress Note PATIENT NAME: Mckayla Russo DATE OF SERVICE: October 22, 2021 TIME: 10:50 AM PATIENT IDENTITY VERIFICATION COMPLETED USING TWO (2) IDENTIFIERS: Name and Date of confirmed by patient verbally. FALL SCREENING: Has the patient had 2 falls in the last year or 1 fall with injury or currently using an Ambulatory Assistive Device (Walker, Cane, Wheelchair, Crutches, etc.)? No PATIENT GENDER DATA: Female. status: : No status: NO. PATIENT RELEVANT IMPLANT DATA REVIEWED: Not Applicable RADIOLOGY DEPARTMENT: Mammography PERIPHERAL IV DATA: Not applicable SIGNED BY: RT Chilo(R) October 22, 2021 10:50 AM documented in this encounter [facility] 10-15-2021 Miscellaneous Notes Patient has been identified by name and date of : Yes Patient phones for refill(s): Pending Prescriptions Disp Refills CLOPIDOGREL 75 MG TABLET 30 tablet 11 Sig: Take 1 tablet by mouth once daily. FARHANA: No Date of last office visit in primary care: 09/26/2021 Last 2 Encounter Wt Readings: Date: Wt: 05/10/2021 88.9 kg (196 lb) 03/25/2021 91.6 kg (202 lb) Previous labs/tests for medication: Not applicable Please advise. Thank you. Rylee Alvarado LPN documented in this encounter [facility] 10-15-2021 Miscellaneous Notes New order placed as requested. Manuela Thomas APRN.TIM Manuela from [facility] called stating they need Mckayla's order for her Carotid US changed to vascular lab instead of radiology. She can be reached @ [phone]. Maranda Teixeira LPN documented in this encounter [facility] 10-14-2021 Miscellaneous Notes LMOM to schedule JM on LM day 6 Month F/UP for Carotid Stenosis with ULTRA DUP CAROTID ARTERY BILAT 10/17/2021 *LM* documented in this encounter [facility] 10-12-2021 Miscellaneous Notes Called patient left a voicemail to call back and schedule a mammogram. Thanks Dior Lilly PSS Order has been placed. Thank you Sultana Harvey APRN.TIM Pt needs orders for routine Screening Mammogram please. Old order from 2020 has . Pt called and does understand she does need to have both sides done at screen to keep her on track. Thank you! Pt called in and stated that she was under the impression that she needed another mammogram, there was no active order in the system. Please advise. documented in this encounter [facility] 09-27-2021 Miscellaneous Notes Prescription sent as requested. Thank you Sultana Harvey APRN.TIM Patient calling asking to have Linzess rx sent to [facility] mail away pharmacy cost would be cheaper for her. Patient said cost 35 dollars for 30 day rx. Reset rx to file, needs how many refills are wanted completed. Please advise Patient has been identified by name and date of : Yes Patient phones for refill(s): Pending Prescriptions Disp Refills LINZESS 72 MCG CAPSULE 90 capsule Sig: Take 1 capsule by mouth once daily. Administer on an empty stomach. Swallow whole; DO NOT crush or chew. FARHANA: No Date of last office visit in primary care: 09/26/2021, has appt 10/24/2021 Last 2 Encounter Wt Readings: Date: Wt: 05/10/2021 88.9 kg (196 lb) 03/25/2021 91.6 kg (202 lb) Previous labs/tests for medication: Not applicable Please advise. Thank you. Ana Paula Aranda LPN documented in this encounter [facility] 09-26-2021 Miscellaneous Notes Electronic PA completed for linzess. Authorized from August 27, 2021 to September 26, 2022 Information received electronically from payer documented in this encounter [facility] 09-26-2021 History of Present illness Narrative CC: Patient presents with: Recheck: Follow up stomach issues HPI Mckayla Russo is a 76 year old female who presents today for chronic constipation. Patient with complaints of increased gas and bloating. Has pain and discomfort when bending at the waist. Has been feeling this for months on top of her chronic constipation. Has been dealing with constipation for years many years and trying many options including miralax, benefiber, and stool softener. Has also increased her daily fluid intake which has not helped either. Has tiny hard stools every day but sometimes can go a few days wihtout an bowel movement. When that happens she will use a laxative. This occurs almost every other week. Last colonoscopy was 2018, with no cause of constipation noted and supposed to repeat in 5 years. Saw on tv of a drug for chronic constipation she has not tried and is wondering if this would be an option for her. Denies abdominal pain, change in appetite, nausea, vomiting, or diarrhea. REVIEW OF SYSTEMS General: no fevers, no chills, no night sweats, no recurrent infections, no change in appetite, no change in energy and no significant changes in weight Respiratory: no cough, no wheezing, no shortness of breath, no hemoptysis Cardiovascular: no chest pain, no chest pressure, no palpitations and no swelling GI: See HPI PAST MEDICAL HISTORY Diagnosis Date Abnormal mammogram, unspecified left breast BPPV (benign paroxysmal positional vertigo) 02/11/2015 BPV (benign positional vertigo) CAD (coronary artery disease) Carotid stenosis CARPAL TUNNEL BILATERRAL 08/08/2005 Coronary artery disease involving bad river band coronary artery Dr. Pederson follows regularly; S/P PTCA and stenting at [facility] [place], 2001 Coronary atherosclerosis of unspecified type of vessel, bad river band or graft Disorder of bone and cartilage, unspecified Diverticulosis of colon (without mention of hemorrhage) DKA (diabetic ketoacidoses) 09/28/2019 Esophagitis External hemorrhoids without mention of 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 Insomnia Internal hemorrhoids without mention of 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 Mammographic microcalcification Mild intermittent asthma without 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 Adult onset Mild nonproliferative diabetic retinopathy of both eyes ([facility]) 12/06/2018 Other and unspecified hyperlipidemia Other forms of migraine Other psoriasis Postsurgical percutaneous transluminal coronary angioplasty status Rheumatoid arthritis(714.0) RLS (restless legs syndrome) 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 Thoracic or lumbosacral neuritis or radiculitis, unspecified 03/01/2012 Type I (juvenile type) diabetes mellitus with neurological manifestations, not stated as 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.61) 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, 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) Unspecified asthma(493.90) Unspecified essential hypertension Unspecified hereditary and idiopathic peripheral neuropathy PAST SURGICAL HISTORY Procedure Laterality Date BREAST BIOPSY COLONOSCOPY FLX DX W/COLLJ SPEC WHEN PFRMD 02/26/2204 Colonoscopy COLONOSCOPY FLX DX W/COLLJ SPEC WHEN PFRMD 08/29/15 Colonoscopy COLONOSCOPY FLX DX W/COLLJ SPEC WHEN PFRMD 11/10/2018 Colonoscopy EGD 04/15/2002 ESOPHAGOGASTRODUODENOSCOPY TRANSORAL DIAGNOSTIC 11/10/2018 EGD EXC BREAST LES PREOP PLMT RAD MARKER OPEN 1 LES 03/2008 OPEN REPAIR OF ROTATOR CUFF CHRONIC left rotator cuff PAST SURGICAL HISTORY OF tonsilectomy and adenoidectomy PAST SURGICAL HISTORY OF right breast lumpectomy PAST SURGICAL HISTORY OF x 3 PAST SURGICAL HISTORY OF 1992 right thumb trigger finger PAST SURGICAL HISTORY OF hand surgery PAST SURGICAL HISTORY OF nose surgery PAST SURGICAL HISTORY OF age 17 axillary cyst removal PAST SURGICAL HISTORY OF 2000 heart cath with stent placement PAST SURGICAL HISTORY OF CARDIAC CAATH 2000, 2001, AND 2004 PREOP PLACEMENT NEEDLE LOC STEREOTACTIC CORE BIOPSY 02/24/08 LEFT - benign ALLERGIES Aggrenox [Aspirin-Dipyridamole], Amitriptyline, Cephalexin (Bulk), Cymbalta [Duloxetine], Doxycycline, Duricef [Cefadroxil], Ephedrine, Ilosone [Other], Iodine, Levaquin [Levofloxacin], Lyrica [Pregabalin], Nortriptyline, Percocet [Oxycodone-Acetaminophen], and Sulfa (Sulfonamide Antibiotics) MEDICATIONS hydrocortisone 2.5 % cream Apply to affected area once daily. ketoconazole (NIZORAL) 2 % shampoo lansoprazole (PREVACID) 30 mg capsule take 1 capsule by mouth twice a day clonazePAM (KLONOPIN) 1 mg tablet Take 1 tablet by mouth at bedtime as needed for up to 180 days. pramipexole (MIRAPEX) 1 mg tablet Take 2 tablets by mouth daily at bedtime. fluticasone (FLONASE) 50 mcg/actuation nasal spray Use 2 Sprays in each nostril once daily. Rinse mouth after use. guaiFENesin (MUCINEX) 600 mg 12 hr tablet Take 1 tablet by mouth twice daily as needed. montelukast (SINGULAIR) 10 mg tablet Take 1 tablet by mouth daily at bedtime. albuterol HFA (PROAIR HFA) 90 mcg/actuation inhaler Inhale 2 Puffs as instructed every 4 hours as needed. nitroglycerin (NITROLINGUAL) 400 mcg/spray spray one every 5 minutes x3 as needed clopidogrel (PLAVIX) 75 mg tablet Take 1 tablet by mouth once daily. aspirin 81 mg chewable tablet Take 1 tablet by mouth once daily. gabapentin (NEURONTIN) 400 mg capsule Take 1 capsule by mouth twice daily as needed. glucagon (BAQSIMI) 3 mg/actuation nasal spray Use 1 Scotia in the nose as needed for low blood sugar. May repeat after 15 minutes using a new device if there is no response. insulin lispro (HUMALOG U-100 INSULIN) 100 unit/mL injection as directed in Insulin pump up to 110 units daily. Dx E10.65 atorvastatin (LIPITOR) 40 mg tablet Take 1 tablet by mouth once daily. amLODIPine (NORVASC) 5 mg tablet Take 1 tablet by mouth once daily. blood sugar diagnostic (CONTOUR TEST STRIPS) test strip Test blood sugar(s) 6 times daily. Dx: Type 1 DM - Controlled E10.9 Insulin: Yes losartan (COZAAR) 50 mg tablet Take 1 tablet by mouth once daily. urea (CARMOL) 40 % Apply to affected area as needed. blood sugar diagnostic (BLOOD GLUCOSE TEST) test strip Test blood sugar(s) 6 times daily. Dx: E 10.65, Z96.41 hydrOXYchloroQUINE (PLAQUENIL) 200 mg tablet Take 1 tablet by mouth twice daily. Cholecalciferol, Vitamin D3, 125 mcg (5,000 unit) cap Take 1 capsule by mouth once daily. Biotin 1 mg tab Take 1 tablet by mouth once daily. Blood-Glucose Meter (CONTOUR METER) monitoring kit Dispense 1 kit. Dx: Type 1 DM - Controlled E10.9 insulin glargine (LANTUS U-100 INSULIN) 100 unit/mL injection 46 units every 24 hr for insulin pump failure Insulin Syringe-Needle U-100 (BD ULTRAFINE INSULIN) 1 mL 31 gauge x 5/16 use as directed if pump fails up to 6 times daily Lactobacillus acidophilus (PROBIOTIC) 10 billion cell cap Take 1 capsule by mouth once daily. multivitamin tablet Take 1 tablet by mouth once daily. acetaminophen (TYLENOL 8 HOUR) 650 mg CR tablet Take 1 tablet by mouth every 8 hours as needed. FAMILY HISTORY Problem Relation Age of Onset Cancer Mother breast (diagnosed mid 50's) Heart Mother valvular other (Other) Father leukemia (dx'd age 55) Asthma Paternal Grandmother Diabetes Paternal Grandmother Colon Cancer Other none other (autoimmune def) Daughter Social History Tobacco Use Smoking status: Never Smoker Smokeless tobacco: Never Used Substance Use Topics Alcohol use: No Drug use: No PHYSICAL EXAM BP 134/86 Pulse 72 Resp 16 General Appearance: well appearing, in no acute distress, alert Eyes: conjunctiva pink and moist, no icterus, sclera white, non-injected Lungs: Lungs clear to auscultation. No wheezing, rhonchi, rales. Heart: RRR without murmur, gallop, or rubs. No ectopy Abdomen: Abdomen soft, non-tender. Bowel sounds normal. No masses, organomegaly. ( patient in wheelchair after having a spinal nerve procedure today, so exam done while patient was sitting.) Health maintenance reviewed with patient: SPIROMETRY Never done BP CONTROLLED (<130/80) Never done ADVANCE DIRECTIVE DISCUSSION Never done DILATED RETINAL EXAM due on 08/20/2021 DIABETIC FOOT EXAM due on 10/02/2021 HBA1C due on 11/04/2021 COVID-19 VACCINE(5 - Booster for Pfizer series) due on 11/29/2021 DTAP,TDAP,TD(2 - Td or Tdap) due on 01/14/2022 URINE ALBUMIN:CREATININE RATIO due on 05/07/2022 LDL CHOLESTEROL due on 05/07/2022 ANNUAL PCP TEAM CHRONIC DISEASE VISIT due on 06/10/2022 COLORECTAL CANCER SCREENING due on 11/11/2023 BONE DENSITY Completed INFLUENZA Completed HEPATITIS C SCREENING Completed SHINGRIX VACCINE Completed PNEUMOCOCCAL: 65+ Completed DATA REVIEWED: No new labs ASSESSMENT/PLAN: 1. Chronic constipation - ICD9: 564.00, ICD10: K59.09 (primary diagnosis) - has tried multiple options with no success and dealt with this for years. Will try linzess for this chronic idopathic consitpation at low dose to see if there is any improvement. Will need a probable GI consult but will discuss at follow up - continue to increase water intake - follow up in 4 weeks 2. Bloating - ICD9: 787.3, ICD10: R14.0 As above Prescription instructions reviewed with patient as applicable. Potential red flag symptoms discussed with the patient. Reviewed appropriate action plan to take if red flag symptoms occur. Patient agreeable to treatment plan. Sultana Harvey APRN.CNP documented in this encounter [facility] 09-20-2021 History of Present illness Narrative Last saw Dr. Anderson: 01/18/21 Subjective: Patient presents to clinic c/o painful toenails. They state that the nails are especially painful with shoe gear and pressure. Patient states that nails 1-5 b/l are painful. Patient also complains of painful callus of b/l 5th toe. Patient admits to being diabetic. No other pedal complaints at this time. Patient states no change in medications or medical history since last visit. Objective: Patient presents to clinic ambulating in sneakers Vasc: DP and PT pulses are faintly palpable bilateral. CFT is less than 5 seconds bilateral. Skin temperature is warm to cool proximal to distal bilateral. There is mild edema or varicosities noted. Neuro: Protective sensation is decreased to the foot and toes when tested with the 5.07 SWM bilateral. Vibratory sensation is decreased at the hallux IPJ bilateral. The hallux is downgoing bilateral. Derm: Nails 1-5 b/l are painful, discolored-yellow, thick, crumbly, dystrophic and with subungal debris. Skin is of normal turgor, texture and hair growth is present bilateral. There are callus to b/l 5th toe. no ulcerations, scars, verruca or other lesions noted. Ortho: Muscle strength is 5/5 for all pedal groups tested. Ankle joint DF is full with the knee extended with no pain or crepitus noted. 1st MPJ ROM is full bilateral. Adductovarus deformity is noted Assessment: (B35.1) Onychomycosis (primary encounter diagnosis) (M79.675) Pain in toe of left foot (M79.674) Pain in toe of right foot (E11.42) Diabetic polyneuropathy associated with type 2 diabetes (L85.9) Hyperkeratosis (M20.42) Hammertoe of left foot Plan: Patient was seen and evaluated. Nails 1-5 bilateral were debrided in length and thickness. Callus reduced with dremmel. In order to perform a complete physical exam, limited shaving of callus area was performed. This incidental service is integral to the evaluation and management visit in order to appropriately manage and treat the patient (for their complaint or for this visit). Again discussed cause of callus being hammertoe. Discussed conservative vs surgical options. Patient not interested in surgical intervention Patient was instructed on the continued importance of diabetic foot care along with proper diet and keeping their blood sugar under control to prevent 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s. Patient is to RTC in 3-4 months. Lauren Rangel DPM AMB ROOMING INTAKE FLOWSHEET DATA Risk Screening Do you have concerns about personal safety or safety in the home?: No Patient presents with: Left Foot - Established Patient, Callous Right Foot - Established Patient, Callous documented in this encounter [facility] 09-20-2021 Instructions Lauren Rangel - 09/20/2021 8:30 AM EDT Diabetes Foot Care Instructions When you have diabetes, proper foot care is very important. Poor foot care may lead to amputation of a foot or leg. As a person with diabetes, you are more vulnerable to foot problems, because diabetes can damage your nerves and reduce blood flow to your feet. Here are some diabetes foot care tips to follow: Wash and Dry Your Feet Daily Use mild soaps Use warm water Pat your skin dry; do not rub. Thoroughly dry your feet. After washing, use lotion on your feet to prevent cracking. Do not put lotion between your toes. Examine Your Feet Each Day Check the tops and bottoms of your feet. Have someone else look at your feet if you cannot see them. Check for dry, cracked skin. Look for blisters, cuts, scratches, or other sores. Check for redness, increased warmth, or tenderness when touching any area of your feet. Check for ingrown toenails, corns, and calluses. If you get a blister or sore from your shoes, do not pop it. Apply a bandage and wear a different pair of shoes. Take Care of Your Toenails Cut toenails after bathing, when they are soft. Cut toenails straight across and smooth with a nail file. Avoid cutting into the corners of toes. Do not cut cuticles. If you have neuropathy (or decreased sensation in your feet) a geophysical engineer should always cut your toenails. Be Careful When Exercising Walk and exercise in comfortable shoes. Do not exercise when you have open sores on your feet. Protect Your Feet With Shoes and Socks Never go barefoot. Always protect your feet by wearing shoes or hard-soled slippers or footwear. Avoid shoes with high heels and pointed toes. Avoid shoes that expose your toes or heels (such as open-toed shoes or sandals). These types of shoes increase your risk for injury and potential infections. Try on new footwear with the type of socks you usually wear. Do not wear new shoes for more than an hour at a time. Change your socks daily. Look and feel inside your shoes before putting them on to make sure there are no foreign objects or rough areas. Avoid tight socks. Wear natural-fiber socks (cotton, wool, or a cotton-wool blend). Wear special shoes if your health care provider recommends them. Wear shoes/boots that will protect your feet from various weather conditions (cold, moisture, etc.). Make sure your shoes fit properly. If you have neuropathy (nerve damage), you may not notice that your shoes are too tight. Perform the footwear test described below. Footwear Test Use this simple test to see if your shoes fit correctly: Stand on a piece of paper. (Make sure you are standing and not sitting, because your foot changes shape when you stand.) Trace the outline of your foot. Trace the outline of your shoe. Compare the tracings: Is the shoe too narrow? Is your foot crammed into the shoe? The shoe should be at least 1/2 inch longer than your longest toe and as wide as your foot. Proper Shoe Choices The following types of shoes are best for people with diabetes Closed toes and heels Leather uppers without a seam inside At least 1/2 inch extra space at the end of your longest toe Inside of shoe should be soft with no rough areas Outer sole should be made of stiff material Shoes should be at least as wide as your feet Tips for Foot Care in Diabetes Don't wait to treat a minor foot problem if you have diabetes. Follow your health care provider's guidelines and first aid guidelines. Report foot injuries and infections to your health care provider immediately. Check water temperature with your elbow, not your foot. Do not use a heating pad on your feet. Do not cross your legs. Do not self-treat your corns, calluses, or other foot problems. Go to your health care provider or geophysical engineer to treat these conditions. documented in this encounter [facility] 08-15-2021 Miscellaneous Notes Pt does want this prescription sent to [facility]. In Apr rx was sent to [facility] Message left for pt to return call to verify pharmacy. NOV none GABY 06/10/21 [facility] Patient electronically sent a request for the following prescription(s) Pending Prescriptions Disp Refills LANSOPRAZOLE 30 MG CAPSULE,DELAYED RELEASE 180 capsule 3 Sig: take 1 capsule by mouth twice a day FARHANA: Yes Patient aware RX will be sent to pharmacy. No need to notify patient. Please review. Amber Hassan MA Patient calling about the status of the request for lansoprazole (PREVACID) 30 mg capsule [Pharmacy Med Name: LANSOPRAZOLE DR 30 MG CAPSULE]. Patient has no more medication and is asking for it to be filled today. Patient would like to case picker the medication late afternoon. documented in this encounter [facility] 08-05-2021 Miscellaneous Notes PDMP website checked and validated. All prescriptions have been APPROPRIATELY filled. No suspicious activity was identified. 08/05/2021 by Sultana Harvey APRN.GRIPPER ATTACHER Patient states she accidentally threw away her medication. Asking for refill. Please advise documented in this encounter [facility] 06-14-2021 Miscellaneous Notes Spoke with [facility] [employer] concerning the form needing signed by Dr Rueda due to patient being discharged from PT. Delmi Fay LPN Forms forwarded to Dr. Rueda to address. Delmi Fay LPN Received fax in office. Will forward to Dr Rueda to address. Delmi Fay LPN Glenny from [facility] called and reports they have been trying to fax the POC for HH to have provider sign. Gave her fax # [phone], which is not where they had sent it before. Can also call Glenny and leave voicemail on secure line at [phone]. documented in this encounter [facility] 04-24-2021 Miscellaneous Notes Pt called in and reports that she has called [facility] to start sessions, but they keep telling her that they don't have the information. Pt believes she is doing home PT. The orders have been faxed over several times. Asked Pt what else [facility] needed and Pt said they wouldn't tell her just that they needed more information and that the provider knows what it is. documented in this encounter [facility] 03-04-2021 History of Present illness Narrative Images from the original note were not included. History of Present Illness Presence of Pain: complains of pain/discomfort Pain Location: back, left lower,back, left upper,shoulder, left Select Pain Scale: DVPRS (Defense and Veterans Pain Rating Scale) (Adult-Cognitively Intact) DVPRS: Rest: 4- mild pain DVPRS: Activity: 4- mild pain Select Pain Scale: DVPRS (Defense and Veterans Pain Rating Scale) (Adult-Cognitively Intact) Pain Frequency: constant Pain Quality: aching. Total time spent in this encounter was 31 minutes. Energy level is about the same - not the greatest in the world. Poor balance is the same. Dizziness is not really. Lightheadedness is no. Headaches. Joint pain is some. More in back and that. Patient is here for a 6 Month F/U. Patient states that she is having lower back and left shoulder pain today. Patient states that she is doing about the same. Patient states that pain management is helping. Patient states that she hurt herself by overreaching, and now has the left shoudler pain. Prednisone one time since last seen for joint pain. I have been told that Prednisone is a high risk medication. Patient last took prednisone in the summer. I have been told that Tramadol is a high risk medication. ' Review of Systems Constitutional: Positive for fatigue. HENT: Negative. Eyes: Negative. Respiratory: Negative. Cardiovascular: Negative. Gastrointestinal: Negative. Endocrine: Negative. Genitourinary: Negative. Musculoskeletal: Positive for arthralgias, back pain and gait problem. Skin: Negative. Neurological: Positive for headaches. History of 3 strokes with poor balance ever since and one stroke caused aphasia Hematological: Negative. Vitals: Blood pressure 132/84, pulse 77, height 1.6 m (5' 3 ), weight 92.1 kg (203 lb), SpO2 97 %. Physical Exam Vitals and nursing note reviewed. Constitutional: Appearance: Normal appearance. She is obese. HENT: Head: Normocephalic and atraumatic. Right Ear: External ear normal. Left Ear: External ear normal. Nose: Nose normal. Mouth/Throat: Mouth: Mucous membranes are moist. Pharynx: Oropharynx is clear. Comments: mask Eyes: Extraocular Movements: Extraocular movements intact. Conjunctiva/sclera: Conjunctivae normal. Pupils: Pupils are equal, round, and reactive to light. Comments: glasses Cardiovascular: Rate and Rhythm: Normal rate and regular rhythm. Pulses: Radial pulses are 2+ on the right side and 2+ on the left side. Heart sounds: Normal heart sounds. Pulmonary: Effort: Pulmonary effort is normal. Breath sounds: Normal breath sounds. Abdominal: General: Bowel sounds are normal. Palpations: Abdomen is soft. Comments: obese Musculoskeletal: Right shoulder: Tenderness and bony tenderness present. Decreased range of motion. Left shoulder: Tenderness and bony tenderness present. Decreased range of motion. Right upper arm: Tenderness present. Left upper arm: Tenderness present. Right elbow: Normal. Left elbow: Decreased range of motion. Right forearm: Normal. Left forearm: Normal. Right wrist: Decreased range of motion. Left wrist: Decreased range of motion. Right hand: Deformity present. Decreased range of motion. Left hand: Deformity present. Decreased range of motion. Arms: Hands: Cervical back: Neck supple. Right upper leg: Normal. Left upper leg: Normal. Right knee: Crepitus present. Decreased range of motion. Left knee: Crepitus present. Decreased range of motion. Right lower leg: Normal. Left lower leg: Normal. Right ankle: Decreased range of motion. Left ankle: Decreased range of motion. Legs: Skin: General: Skin is warm and dry. Neurological: Mental Status: She is alert and oriented to person, place, and time. Cranial Nerves: Cranial nerves are intact. Motor: Motor function is intact. Psychiatric: Mood and Affect: Mood normal. Behavior: Behavior normal. Thought Content: Thought content normal. Judgment: Judgment normal. Neurological Exam Mental Status Alert. Cranial Nerves CN II: Vision test: glasses. CN III, IV, : Extraocular movements intact bilaterally. Pupils equal round and reactive to light bilaterally. Assessment and Plan Encounter Diagnoses Name Primary? Rheumatoid arthritis of multiple sites with negative rheumatoid factor Yes correction current use of systemic steroids 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 History of stroke History of rheumatoid arthritis Elevated hemidiaphragm BONILLA (nonalcoholic steatohepatitis) Fatty liver Thoracic degenerative disc disease Rotator cuff arthropathy of both shoulders Osteoarthritis of both wrists, unspecified osteoarthritis type Osteoarthritis of both hands, unspecified osteoarthritis type Osteoarthritis of cervical spine, unspecified spinal osteoarthritis 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 status Lumbar degenerative disc disease 1. Time was spent with the patient today in education in re: to all their medical conditions. A complete H&P&ROS was obtained and is either in this note or in the EHR. Please do not hesitate to contact me with any questions or concerns re: this patient. Past History Past medical, surgical, family, and social histories have been reviewed and updated with the patient today and are located elsewhere in the medical record. 2. Thank you for allowing me to participate in the care of your patient. With your permission I would like to F/U with your patient. 3. Optho F/u per Dr. Grant Etienne 4. Chronic pain management F/U per Dr. Fuentes 5. Monitor Vit D level every 6 -12 months if remains low rec: eval by endo 6. Rx given for PT/OT - went terrible and patient is not doing HEP 7. ESR was normal at 38 and still is at 16 8. Patient should have an eye exam prior to starting Plaquenil and every 6-12 months as long as taking Plaquenil 9. Albumin is low at 3.8 10. Next time see if can decrease Plaquenil 11. Call if need Rx's 12. Lab on or about 08/18/2021 13. F/u with me in 6 months 14. Glucose is elevated at 141 15. CRP was negative at 0.4 and still is at < 0.3 16. Negative RF, SUSI. CCP, Celiac, ANCA, 17. Uric acid was normal at 3.8 18. STEFFANY level was elevated at 73 and is now normal at 46 19. CXR: shows no hilar adenopathy. 20. Cardiology F/U per Dr. Seaman 22. 90 day supply on medications 23. Neuro f/U per Dr. Jones 24. Patient declines referral to hand surgery 25. Patient declines cortisone shot 26. If hand problems continue rec: ortho eval documented in this encounter [facility] documented as of this encounter (statuses as of 08/15/2021) [facility] History of Past illness Narrative* Problem Noted Date Resolved Date SHERLYN (acute kidney injury) 09/29/20192019 Last Assessment & Plan: Assessment: DKA induced with dehydration PLAN: Volume resuscitated, IVF now KVO Tolerating PO diet Monitor BUN/Cr for further changes DKA (diabetic ketoacidoses) 09/28/2019 07/0 04/2020 Last Assessment & Plan: 2/ 2 Insulin Pump malfunction. Hyperglycemia On admission with CBG > 600 and AG 26 - now resolved. PLAN: Endocrinology consulted AG closed, insulin infusion stopped- back on her insulin pump now Dc home with accucheck / home insulin pump therapy and fup recs Other dysphagia 07/18/2019 09/29/2019 Vertigo 08/12/2015 09/29/2019 BPPV (benign paroxysmal positional vertigo) 01/1909/29/2019 Vertigo 02/02/2013 06/25/2015 Thoracic or lumbosacral neuritis or radiculitis, unspecified 03/01/2012 09/29/2019 Abnormality of gait 03/01/2012 06/25/2015 Pain in joint, lower leg 01/21/2010 016 Routine general medical exam ination at a health care facility 04/30/2009 06/25/2015 Overview: 04/30/2009, establish from Dr. Givens 06/25/2010, yearly check-up (60 minutes) Routine gynecological examination 04/30/2009 06/25/2015 Overview: [facility] Sch[facility], [facility] [place] Tenosynovitis of foot and ankle 06/29/2008 04/30/2009 Acute bronchitis 05/18/2008 04/30/2009 Anemia, unspecified 12/04/2006 09/29/2019 Cellulitis and abscess of foot, except toes 10/200604/30/2009 Onychia and paronychia of toe 08/11/2006 Pain in joint, shoulder region 05/22/2006 0 04/30/2009 Sprain of neck 05/22/2006 04/30/2009 DUPUYTRENS CONTRACTURES 03/23/2006 04/30/19 10 Dermatophytosis of nail 09/04/2005 04/30/19 10 CARPAL TUNNEL BILATERRAL 08/08/2005 020 Nonspecific abnormal results of liver function s tudy 08/08/2005 04/30/2009 OVERWEIGHT 08/08/2005 04/30/2009 Ingrowing nail 03/20/2005 04/30/2009 Pain in limb 03/20/2005 04/30/2009 Allergic Rhinitis, Cause Unspecified 01/13/2005 06/25/2015 Coronary artery disease involving bad [place] band coronar y artery 09/29/2019 Overview: Dr. Pederson follows regularly; S/P PTCA and stenting at [facility] [place], 2000 Last Assessment & Plan: Currently she has no chest pain or SOB. 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 0 09/29/2019 Diverticulosis of colon (without mention of hemo rrhage) 04/30/2009 External hemorrhoids without mention of complica tion 04/30/2009 Internal hemorrhoids without mention of complica tion 04/30/2009 documented as of this encounter (statuses as of 09/20/2021) [facility] History of Past illness Narrative* Problem Noted Date Resolved Date SHERLYN (acute kidney injury) 09/29/20192019 Last Assessment & Plan: Assessment: DKA induced with dehydration PLAN: Volume resuscitated, IVF now KVO Tolerating PO diet Monitor BUN/Cr for further changes DKA (diabetic ketoacidoses) 09/28/2019 07/0 04/2020 Last Assessment & Plan: 2/ Insulin Pump malfunction. Hyperglycemia On admission with CBG > 600 and AG 26 - now resolved. PLAN: Endocrinology consulted AG closed, insulin infusion stopped- back on her insulin pump now Dc home with accucheck / home insulin pump therapy and fup recs Other dysphagia 07/18/2019 09/29/2019 Vertigo 08/12/2015 09/29/2019 BPPV (benign paroxysmal positional vertigo) 01/1909/29/2019 Vertigo 02/02/2013 06/25/2015 Thoracic or lumbosacral neuritis or radiculitis, unspecified 03/01/2012 09/29/2019 Abnormality of gait 03/01/2012 06/25/2015 Pain in joint, lower leg 01/21/2010 016 Routine general medical exam ination at a health care facility 04/30/2009 06/25/2015 Overview: 04/30/2009, establish from Dr. Givens 06/25/2010, yearly check-up (60 minutes) Routine gynecological examination 04/30/2009 06/25/2015 Overview: [facility] Schmitz, [facility] Tenosynovitis of foot and ankle 06/29/2008 04/30/2009 Acute bronchitis 05/18/2008 04/30/2009 Anemia, unspecified 12/04/2006 09/29/2019 Cellulitis and abscess of foot, except toes 10/200604/30/2009 Onychia and paronychia of toe 08/11/2006 Pain in joint, shoulder region 05/22/2006 0 04/30/2009 Sprain of neck 05/22/2006 04/30/2009 DUPUYTRENS CONTRACTURES 03/23/2006 04/30/19 10 Dermatophytosis of nail 09/04/2005 04/30/19 10 CARPAL TUNNEL BILATERRAL 08/08/2005 020 Nonspecific abnormal results of liver function s tudy 08/08/2005 04/30/2009 OVERWEIGHT 08/08/2005 04/30/2009 Ingrowing nail 03/20/2005 04/30/2009 Pain in limb 03/20/2005 04/30/2009 Allergic Rhinitis, Cause Unspecified 01/13/2005 06/25/2015 Coronary artery disease involving [place] band coronar y artery 09/29/2019 Overview: Dr. Pederson follows regularly; S/P PTCA and stenting at [facility] [place], 2001 Last Assessment & Plan: Currently she has no chest pain or SOB. 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 0 09/29/2019 Diverticulosis of colon (without mention of hemo rrhage) 04/30/2009 External hemorrhoids without mention of complica tion 04/30/2009 Internal hemorrhoids without mention of complica tion 04/30/2009 documented as of this encounter (statuses as of 09/23/2021) [facility] History of Past illness Narrative* Problem Noted Date Resolved Date SHERLYN (acute kidney injury) 09/29/20192019 Last Assessment & Plan: Assessment: DKA induced with dehydration PLAN: Volume resuscitated, IVF now KVO Tolerating PO diet Monitor BUN/Cr for further changes DKA (diabetic ketoacidoses) 09/28/2019 07/0 04/2020 Last Assessment & Plan: 2/ 2 Insulin Pump malfunction. Hyperglycemia On admission with CBG > 600 and AG 26 - now resolved. PLAN: Endocrinology consulted AG closed, insulin infusion stopped- back on her insulin pump now Dc home with accucheck / home insulin pump therapy and fup recs Other dysphagia 07/18/2019 09/29/2019 Vertigo 08/12/2015 09/29/2019 BPPV (benign paroxysmal positional vertigo) 10/08/201409/29/2019 Vertigo 02/02/2013 06/25/2015 Thoracic or lumbosacral neuritis or radiculitis, unspecified 03/01/2012 09/29/2019 Abnormality of gait 03/01/2012 06/25/2015 Pain in joint, lower leg 01/21/2010 016 Routine general medical exam ination at a health care facility 04/30/2009 06/25/2015 Overview: 04/30/2009, establish from Dr. Givens 06/25/2010, yearly check-up (60 minutes) Routine gynecological examination 04/30/2009 06/25/2015 Overview: [facility] Schmitz, [facility] [place] Tenosynovitis of foot and ankle 06/29/2008 04/30/2009 Acute bronchitis 05/18/2008 04/30/2009 Anemia, unspecified 12/04/2006 09/29/2019 Cellulitis and abscess of foot, except toes 10/200604/30/2009 Onychia and paronychia of toe 08/11/2006 Pain in joint, shoulder region 05/22/2006 0 04/30/2009 Sprain of neck 05/22/2006 04/30/2009 DUPUYTRENS CONTRACTURES 03/23/2006 04/30/19 10 Dermatophytosis of nail 09/04/2005 04/30/19 10 CARPAL TUNNEL BILATERRAL 08/08/2005 020 Nonspecific abnormal results of liver function s tudy 08/08/2005 04/30/2009 OVERWEIGHT 08/08/2005 04/30/2009 Ingrowing nail 03/20/2005 04/30/2009 Pain in limb 03/20/2005 04/30/2009 Allergic Rhinitis, Cause Unspecified 01/13/2005 06/25/2015 Coronary artery disease involving [place] coronar y artery 09/29/2019 Overview: Dr. Pederson follows regularly; S/P PTCA and stenting at [facility] [place], 2000 Last Assessment & Plan: Currently she has no chest pain or SOB. 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 0 09/29/2019 Diverticulosis of colon (without mention of hemo rrhage) 04/30/2009 External hemorrhoids without mention of complica tion 04/30/2009 Internal hemorrhoids without mention of complica tion 04/30/2009 documented as of this encounter (statuses as of 09/26/2021) [facility] History of Past illness Narrative* Problem Noted Date Resolved Date SHERLYN (acute kidney injury) 09/29/20192019 Last Assessment & Plan: Assessment: DKA induced with dehydration PLAN: Volume resuscitated, IVF now KVO Tolerating PO diet Monitor BUN/Cr for further changes DKA (diabetic ketoacidoses) 09/28/2019 07/0 04/2020 Last Assessment & Plan: 2/ 2 Insulin Pump malfunction. Hyperglycemia On admission with CBG > 600 and AG 26 - now resolved. PLAN: Endocrinology consulted AG closed, insulin infusion stopped- back on her insulin pump now Dc home with accucheck / home insulin pump therapy and fup recs Other dysphagia 07/18/2019 09/29/2019 Vertigo 08/12/2015 09/29/2019 BPPV (benign paroxysmal positional vertigo) 01/1909/29/2019 Vertigo 02/02/2013 06/25/2015 Thoracic or lumbosacral neuritis or radiculitis, unspecified 03/01/2012 09/29/2019 Abnormality of gait 03/01/2012 06/25/2015 Pain in joint, lower leg 01/21/2010 016 Routine general medical exam ination at a health care facility 04/30/2009 06/25/2015 Overview: 04/30/2009, establish from Dr. Givens 06/25/2010, yearly check-up (60 minutes) Routine gynecological examination 04/30/2009 06/25/2015 Overview: [facility] Schmitz, [facility] [place] Tenosynovitis of foot and ankle 06/29/2008 04/30/2009 Acute bronchitis 05/18/2008 04/30/2009 Anemia, unspecified 12/04/2006 09/29/2019 Cellulitis and abscess of foot, except toes 10/200604/30/2009 Onychia and paronychia of toe 08/11/2006 Pain in joint, shoulder region 05/22/2006 0 04/30/2009 Sprain of neck 05/22/2006 04/30/2009 DUPUYTRENS CONTRACTURES 03/23/2006 04/30/19 10 Dermatophytosis of nail 09/04/2005 04/30/19 10 CARPAL TUNNEL BILATERRAL 08/08/2005 020 Nonspecific abnormal results of liver function s tudy 08/08/2005 04/30/2009 OVERWEIGHT 08/08/2005 04/30/2009 Ingrowing nail 03/20/2005 04/30/2009 Pain in limb 03/20/2005 04/30/2009 Allergic Rhinitis, Cause Unspecified 01/13/2005 06/25/2015 Coronary artery disease involving [place] band coronar y artery 09/29/2019 Overview: Dr. Pederson follows regularly; S/P PTCA and stenting at [facility] [place], 2000 Last Assessment & Plan: Currently she has no chest pain or SOB. 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 0 09/29/2019 Diverticulosis of colon (without mention of hemo rrhage) 04/30/2009 External hemorrhoids without mention of complica tion 04/30/2009 Internal hemorrhoids without mention of complica tion 04/30/2009 documented as of this encounter (statuses as of 09/26/2021) [facility] History of Past illness Narrative* Problem Noted Date Resolved Date SHERLYN (acute kidney injury) 09/29/20192019 Last Assessment & Plan: Assessment: DKA induced with dehydration PLAN: Volume resuscitated, IVF now KVO Tolerating PO diet Monitor BUN/Cr for further changes DKA (diabetic ketoacidoses) 09/28/2019 07/0 04/2020 Last Assessment & Plan: 2/ 2 Insulin Pump malfunction. Hyperglycemia On admission with CBG > 600 and AG 26 - now resolved. PLAN: Endocrinology consulted AG closed, insulin infusion stopped- back on her insulin pump now Dc home with accucheck / home insulin pump therapy and fup recs Other dysphagia 07/18/2019 09/29/2019 Vertigo 08/12/2015 09/29/2019 BPPV (benign paroxysmal positional vertigo) 01/1909/29/2019 Vertigo 02/02/2013 06/25/2015 Thoracic or lumbosacral neuritis or radiculitis, unspecified 03/01/2012 09/29/2019 Abnormality of gait 03/01/2012 06/25/2015 Pain in joint, lower leg 01/21/2010 016 Routine general medical exam ination at a health care facility 04/30/2009 06/25/2015 Overview: 04/30/2009, establish from Dr. Givens 06/25/2010, yearly check-up (60 minutes) Routine gynecological examination 04/30/2009 06/25/2015 Overview: Dr[facility] Schmitz, [facility] [place] Tenosynovitis of foot and ankle 06/29/2008 04/30/2009 Acute bronchitis 05/18/2008 04/30/2009 Anemia, unspecified 12/04/2006 09/29/2019 Cellulitis and abscess of foot, except toes 10/200604/30/2009 Onychia and paronychia of toe 08/11/2006 Pain in joint, shoulder region 05/22/2006 0 04/30/2009 Sprain of neck 05/22/2006 04/30/2009 DUPUYTRENS CONTRACTURES 03/23/2006 04/30/19 10 Dermatophytosis of nail 09/04/2005 04/30/19 10 CARPAL TUNNEL BILATERRAL 08/08/2005 020 Nonspecific abnormal results of liver function s tudy 08/08/2005 04/30/2009 OVERWEIGHT 08/08/2005 04/30/2009 Ingrowing nail 03/20/2005 04/30/2009 Pain in limb 03/20/2005 04/30/2009 Allergic Rhinitis, Cause Unspecified 01/13/2005 06/25/2015 Coronary artery disease involving [place] coronar y artery 09/29/2019 Overview: Dr. Pederson follows regularly; S/P PTCA and stenting at [facility], [place], 2000 Last Assessment & Plan: Currently she has no chest pain or SOB. 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 0 09/29/2019 Diverticulosis of colon (without mention of hemo rrhage) 04/30/2009 External hemorrhoids without mention of complica tion 04/30/2009 Internal hemorrhoids without mention of complica tion 04/30/2009 documented as of this encounter (statuses as of 09/27/2021) [facility] History of Past illness Narrative* Problem Noted Date Resolved Date SHERLYN (acute kidney injury) 09/29/20192019 Last Assessment & Plan: Assessment: DKA induced with dehydration PLAN: Volume resuscitated, IVF now KVO Tolerating PO diet Monitor BUN/Cr for further changes DKA (diabetic ketoacidoses) 09/28/2019 07/0 04/2020 Last Assessment & Plan: 2/ 2 Insulin Pump malfunction. Hyperglycemia On admission with CBG > 600 and AG 26 - now resolved. PLAN: Endocrinology consulted AG closed, insulin infusion stopped- back on her insulin pump now Dc home with accucheck / home insulin pump therapy and fup recs Other dysphagia 07/18/2019 09/29/2019 Vertigo 08/12/2015 09/29/2019 BPPV (benign paroxysmal positional vertigo) 01/1909/29/2019 Vertigo 02/02/2013 06/25/2015 Thoracic or lumbosacral neuritis or radiculitis, unspecified 03/01/2012 09/29/2019 Abnormality of gait 03/01/2012 06/25/2015 Pain in joint, lower leg 01/21/2010 016 Routine general medical exam ination at a health care facility 04/30/2009 06/25/2015 Overview: 04/30/2009, establish from Dr. Givens 06/25/2010, yearly check-up (60 minutes) Routine gynecological examination 04/30/2009 06/25/2015 Overview: Dr[facility] Schmitz, [facility], [facility] [place] Tenosynovitis of foot and ankle 06/29/2008 04/30/2009 Acute bronchitis 05/18/2008 04/30/2009 Anemia, unspecified 12/04/2006 09/29/2019 Cellulitis and abscess of foot, except toes 10/200604/30/2009 Onychia and paronychia of toe 08/11/2006 Pain in joint, shoulder region 05/22/2006 0 04/30/2009 Sprain of neck 05/22/2006 04/30/2009 DUPUYTRENS CONTRACTURES 03/23/2006 04/30/19 10 Dermatophytosis of nail 09/04/2005 04/30/19 10 CARPAL TUNNEL BILATERRAL 08/08/2005 020 Nonspecific abnormal results of liver function s tudy 08/08/2005 04/30/2009 OVERWEIGHT 08/08/2005 04/30/2009 Ingrowing nail 03/20/2005 04/30/2009 Pain in limb 03/20/2005 04/30/2009 Allergic Rhinitis, Cause Unspecified 01/13/2005 06/25/2015 Coronary artery disease involving [place] coronar y artery 09/29/2019 Overview: Dr. Pederson follows regularly; S/P PTCA and stenting at [facility], [place], 2000 Last Assessment & Plan: Currently she has no chest pain or SOB. 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 0 09/29/2019 Diverticulosis of colon (without mention of hemo rrhage) 04/30/2009 External hemorrhoids without mention of complica tion 04/30/2009 Internal hemorrhoids without mention of complica tion 04/30/2009 documented as of this encounter (statuses as of 10/14/2021) [facility] History of Past illness Narrative* Problem Noted Date Resolved Date SHERLYN (acute kidney injury) 09/29/20192019 Last Assessment & Plan: Assessment: DKA induced with dehydration PLAN: Volume resuscitated, IVF now KVO Tolerating PO diet Monitor BUN/Cr for further changes DKA (diabetic ketoacidoses) 09/28/2019 07/0 04/2020 Last Assessment & Plan: 2/ 2 Insulin Pump malfunction. Hyperglycemia On admission with CBG > 600 and AG 26 - now resolved. PLAN: Endocrinology consulted AG closed, insulin infusion stopped- back on her insulin pump now Dc home with accucheck / home insulin pump therapy and fup recs Other dysphagia 07/18/2019 09/29/2019 Vertigo 08/12/2015 09/29/2019 BPPV (benign paroxysmal positional vertigo) 01/1909/29/2019 Vertigo 02/02/2013 06/25/2015 Thoracic or lumbosacral neuritis or radiculitis, unspecified 03/01/2012 09/29/2019 Abnormality of gait 03/01/2012 06/25/2015 Pain in joint, lower leg 01/21/2010 016 Routine general medical exam ination at a health care facility 04/30/2009 06/25/2015 Overview: 04/30/2009, establish from Dr. Givens 06/25/2010, yearly check-up (60 minutes) Routine gynecological examination 04/30/2009 06/25/2015 Overview: Dr. Schmitz, [facility], [facility] [place] Tenosynovitis of foot and ankle 06/29/2008 04/30/2009 Acute bronchitis 05/18/2008 04/30/2009 Anemia, unspecified 12/04/2006 09/29/2019 Cellulitis and abscess of foot, except toes 10/200604/30/2009 Onychia and paronychia of toe 08/11/2006 Pain in joint, shoulder region 05/22/2006 0 04/30/2009 Sprain of neck 05/22/2006 04/30/2009 DUPUYTRENS CONTRACTURES 03/23/2006 04/30/19 10 Dermatophytosis of nail 09/04/2005 04/30/19 10 CARPAL TUNNEL BILATERRAL 08/08/2005 020 Nonspecific abnormal results of liver function s tudy 08/08/2005 04/30/2009 OVERWEIGHT 08/08/2005 04/30/2009 Ingrowing nail 03/20/2005 04/30/2009 Pain in limb 03/20/2005 04/30/2009 Allergic Rhinitis, Cause Unspecified 01/13/2005 06/25/2015 Coronary artery disease involving [place] coronar y artery 09/29/2019 Overview: Dr. Pederson follows regularly; S/P PTCA and stenting at [facility], [place], 2000 Last Assessment & Plan: Currently she has no chest pain or SOB. 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 0 09/29/2019 Diverticulosis of colon (without mention of hemo rrhage) 04/30/2009 External hemorrhoids without mention of complica tion 04/30/2009 Internal hemorrhoids without mention of complica tion 04/30/2009 documented as of this encounter (statuses as of 10/15/2021) [facility] History of Past illness Narrative* Problem Noted Date Resolved Date SHERLYN (acute kidney injury) 09/29/20192019 Last Assessment & Plan: Assessment: DKA induced with dehydration PLAN: Volume resuscitated, IVF now KVO Tolerating PO diet Monitor BUN/Cr for further changes DKA (diabetic ketoacidoses) 09/28/2019 07/0 04/2020 Last Assessment & Plan: 2/ 2 Insulin Pump malfunction. Hyperglycemia On admission with CBG > 600 and AG 26 - now resolved. PLAN: Endocrinology consulted AG closed, insulin infusion stopped- back on her insulin pump now Dc home with accucheck / home insulin pump therapy and fup recs Other dysphagia 07/18/2019 09/29/2019 Vertigo 08/12/2015 09/29/2019 BPPV (benign paroxysmal positional vertigo) 01/1909/29/2019 Vertigo 02/02/2013 06/25/2015 Thoracic or lumbosacral neuritis or radiculitis, unspecified 03/01/2012 09/29/2019 Abnormality of gait 03/01/2012 06/25/2015 Pain in joint, lower leg 01/21/2010 016 Routine general medical exam ination at a health care facility 04/30/2009 06/25/2015 Overview: 04/30/2009, establish from Dr. Givens 06/25/2010, yearly check-up (60 minutes) Routine gynecological examination 04/30/2009 06/25/2015 Overview: Dr[facility] Schmitz, [facility], [facility] [place] Tenosynovitis of foot and ankle 06/29/2008 04/30/2009 Acute bronchitis 05/18/2008 04/30/2009 Anemia, unspecified 12/04/2006 09/29/2019 Cellulitis and abscess of foot, except toes 10/200604/30/2009 Onychia and paronychia of toe 08/11/2006 Pain in joint, shoulder region 05/22/2006 0 04/30/2009 Sprain of neck 05/22/2006 04/30/2009 DUPUYTRENS CONTRACTURES 03/23/2006 04/30/19 10 Dermatophytosis of nail 09/04/2005 04/30/19 10 CARPAL TUNNEL BILATERRAL 08/08/2005 020 Nonspecific abnormal results of liver function s tudy 08/08/2005 04/30/2009 OVERWEIGHT 08/08/2005 04/30/2009 Ingrowing nail 03/20/2005 04/30/2009 Pain in limb 03/20/2005 04/30/2009 Allergic Rhinitis, Cause Unspecified 01/13/2005 06/25/2015 Coronary artery disease involving [place] coronar y artery 09/29/2019 Overview: Dr. Pederson follows regularly; S/P PTCA and stenting at [facility], [place], 2000 Last Assessment & Plan: Currently she has no chest pain or SOB. 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 0 09/29/2019 Diverticulosis of colon (without mention of hemo rrhage) 04/30/2009 External hemorrhoids without mention of complica tion 04/30/2009 Internal hemorrhoids without mention of complica tion 04/30/2009 documented as of this encounter (statuses as of 10/15/2021) [facility] History of Past illness Narrative* Problem Noted Date Resolved Date SHERLYN (acute kidney injury) 09/29/20192019 Last Assessment & Plan: Assessment: DKA induced with dehydration PLAN: Volume resuscitated, IVF now KVO Tolerating PO diet Monitor BUN/Cr for further changes DKA (diabetic ketoacidoses) 09/28/2019 07/0 04/2020 Last Assessment & Plan: 2/ 2 Insulin Pump malfunction. Hyperglycemia On admission with CBG > 600 and AG 26 - now resolved. PLAN: Endocrinology consulted AG closed, insulin infusion stopped- back on her insulin pump now Dc home with accucheck / home insulin pump therapy and fup recs Other dysphagia 07/18/2019 09/29/2019 Vertigo 08/12/2015 09/29/2019 BPPV (benign paroxysmal positional vertigo) 01/1909/29/2019 Vertigo 02/02/2013 06/25/2015 Thoracic or lumbosacral neuritis or radiculitis, unspecified 03/01/2012 09/29/2019 Abnormality of gait 03/01/2012 06/25/2015 Pain in joint, lower leg 01/21/2010 016 Routine general medical exam ination at a health care facility 04/30/2009 06/25/2015 Overview: 04/30/2009, establish from Dr. Givens 06/25/2010, yearly check-up (60 minutes) Routine gynecological examination 04/30/2009 06/25/2015 Overview: Dr[facility] Schmitz, [facility], [facility] [place] Tenosynovitis of foot and ankle 06/29/2008 04/30/2009 Acute bronchitis 05/18/2008 04/30/2009 Anemia, unspecified 12/04/2006 09/29/2019 Cellulitis and abscess of foot, except toes 10/200604/30/2009 Onychia and paronychia of toe 08/11/2006 Pain in joint, shoulder region 05/22/2006 0 04/30/2009 Sprain of neck 05/22/2006 04/30/2009 DUPUYTRENS CONTRACTURES 03/23/2006 04/30/19 10 Dermatophytosis of nail 09/04/2005 04/30/19 10 CARPAL TUNNEL BILATERRAL 08/08/2005 020 Nonspecific abnormal results of liver function s tudy 08/08/2005 04/30/2009 OVERWEIGHT 08/08/2005 04/30/2009 Ingrowing nail 03/20/2005 04/30/2009 Pain in limb 03/20/2005 04/30/2009 Allergic Rhinitis, Cause Unspecified 01/13/2005 06/25/2015 Coronary artery disease involving [place] coronar y artery 09/29/2019 Overview: Dr. Pederson follows regularly; S/P PTCA and stenting at [facility], [place], 2000 Last Assessment & Plan: Currently she has no chest pain or SOB. 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 0 09/29/2019 Diverticulosis of colon (without mention of hemo rrhage) 04/30/2009 External hemorrhoids without mention of complica tion 04/30/2009 Internal hemorrhoids without mention of complica tion 04/30/2009 documented as of this encounter (statuses as of 10/23/2021) [facility] History of Past illness Narrative* Problem Noted Date Resolved Date SHERLYN (acute kidney injury) 09/29/20192019 Last Assessment & Plan: Assessment: DKA induced with dehydration PLAN: Volume resuscitated, IVF now KVO Tolerating PO diet Monitor BUN/Cr for further changes DKA (diabetic ketoacidoses) 09/28/2019 07/0 04/2020 Last Assessment & Plan: 2/ 2 Insulin Pump malfunction. Hyperglycemia On admission with CBG > 600 and AG 26 - now resolved. PLAN: Endocrinology consulted AG closed, insulin infusion stopped- back on her insulin pump now Dc home with accucheck / home insulin pump therapy and fup recs Other dysphagia 07/18/2019 09/29/2019 Vertigo 08/12/2015 09/29/2019 BPPV (benign paroxysmal positional vertigo) 01/1909/29/2019 Vertigo 02/02/2013 06/25/2015 Thoracic or lumbosacral neuritis or radiculitis, unspecified 03/01/2012 09/29/2019 Abnormality of gait 03/01/2012 06/25/2015 Pain in joint, lower leg 01/21/2010 016 Routine general medical exam ination at a health care facility 04/30/2009 06/25/2015 Overview: 04/30/2009, establish from Dr. Givens 06/25/2010, yearly check-up (60 minutes) Routine gynecological examination 04/30/2009 06/25/2015 Overview: Dr[facility] Schmitz, [facility], [facility] [place] Tenosynovitis of foot and ankle 06/29/2008 04/30/2009 Acute bronchitis 05/18/2008 04/30/2009 Anemia, unspecified 12/04/2006 09/29/2019 Cellulitis and abscess of foot, except toes 10/200604/30/2009 Onychia and paronychia of toe 08/11/2006 Pain in joint, shoulder region 05/22/2006 0 04/30/2009 Sprain of neck 05/22/2006 04/30/2009 DUPUYTRENS CONTRACTURES 03/23/2006 04/30/19 10 Dermatophytosis of nail 09/04/2005 04/30/19 10 CARPAL TUNNEL BILATERRAL 08/08/2005 020 Nonspecific abnormal results of liver function s tudy 08/08/2005 04/30/2009 OVERWEIGHT 08/08/2005 04/30/2009 Ingrowing nail 03/20/2005 04/30/2009 Pain in limb 03/20/2005 04/30/2009 Allergic Rhinitis, Cause Unspecified 01/13/2005 06/25/2015 Coronary artery disease involving [place] coronar y artery 09/29/2019 Overview: Dr. Pederson follows regularly; S/P PTCA and stenting at [facility], [place], 2000 Last Assessment & Plan: Currently she has no chest pain or SOB. 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 0 09/29/2019 Diverticulosis of colon (without mention of hemo rrhage) 04/30/2009 External hemorrhoids without mention of complica tion 04/30/2009 Internal hemorrhoids without mention of complica tion 04/30/2009 documented as of this encounter (statuses as of 10/23/2021) [facility] History of Past illness Narrative* Problem Noted Date Resolved Date SHERLYN (acute kidney injury) 09/29/20192019 Last Assessment & Plan: Assessment: DKA induced with dehydration PLAN: Volume resuscitated, IVF now KVO Tolerating PO diet Monitor BUN/Cr for further changes DKA (diabetic ketoacidoses) 09/28/2019 07/0 04/2020 Last Assessment & Plan: 2/ 2 Insulin Pump malfunction. Hyperglycemia On admission with CBG > 600 and AG 26 - now resolved. PLAN: Endocrinology consulted AG closed, insulin infusion stopped- back on her insulin pump now Dc home with accucheck / home insulin pump therapy and fup recs Other dysphagia 07/18/2019 09/29/2019 Vertigo 08/12/2015 09/29/2019 BPPV (benign paroxysmal positional vertigo) 01/1909/29/2019 Vertigo 02/02/2013 06/25/2015 Thoracic or lumbosacral neuritis or radiculitis, unspecified 03/01/2012 09/29/2019 Abnormality of gait 03/01/2012 06/25/2015 Pain in joint, lower leg 01/21/2010 016 Routine general medical exam ination at a health care facility 04/30/2009 06/25/2015 Overview: 04/30/2009, establish from Dr. Givens 06/25/2010, yearly check-up (60 minutes) Routine gynecological examination 04/30/2009 06/25/2015 Overview: Dr. Schmitz, [facility], [facility] [place] Tenosynovitis of foot and ankle 06/29/2008 04/30/2009 Acute bronchitis 05/18/2008 04/30/2009 Anemia, unspecified 12/04/2006 09/29/2019 Cellulitis and abscess of foot, except toes 10/200604/30/2009 Onychia and paronychia of toe 08/11/2006 Pain in joint, shoulder region 05/22/2006 0 04/30/2009 Sprain of neck 05/22/2006 04/30/2009 DUPUYTRENS CONTRACTURES 03/23/2006 04/30/19 10 Dermatophytosis of nail 09/04/2005 04/30/19 10 CARPAL TUNNEL BILATERRAL 08/08/2005 020 Nonspecific abnormal results of liver function s tudy 08/08/2005 04/30/2009 OVERWEIGHT 08/08/2005 04/30/2009 Ingrowing nail 03/20/2005 04/30/2009 Pain in limb 03/20/2005 04/30/2009 Allergic Rhinitis, Cause Unspecified 01/13/2005 06/25/2015 Coronary artery disease involving [place] coronar y artery 09/29/2019 Overview: Dr. Pederson follows regularly; S/P PTCA and stenting at [facility], [place], 2001 Last Assessment & Plan: Currently she has no chest pain or SOB. 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 0 09/29/2019 Diverticulosis of colon (without mention of hemo rrhage) 04/30/2009 External hemorrhoids without mention of complica tion 04/30/2009 Internal hemorrhoids without mention of complica tion 04/30/2009 documented as of this encounter (statuses as of 10/24/2021) [facility] History of Past illness Narrative* Problem Noted Date Resolved Date SHERLYN (acute kidney injury) 09/29/20192019 Last Assessment & Plan: Assessment: DKA induced with dehydration PLAN: Volume resuscitated, IVF now KVO Tolerating PO diet Monitor BUN/Cr for further changes DKA (diabetic ketoacidoses) 09/28/2019 07/0 04/2020 Last Assessment & Plan: 2/ 2 Insulin Pump malfunction. Hyperglycemia On admission with CBG > 600 and AG 26 - now resolved. PLAN: Endocrinology consulted AG closed, insulin infusion stopped- back on her insulin pump now Dc home with accucheck / home insulin pump therapy and fup recs Other dysphagia 07/18/2019 09/29/2019 Vertigo 08/12/2015 09/29/2019 BPPV (benign paroxysmal positional vertigo) 01/1909/29/2019 Vertigo 02/02/2013 06/25/2015 Thoracic or lumbosacral neuritis or radiculitis, unspecified 03/01/2012 09/29/2019 Abnormality of gait 03/01/2012 06/25/2015 Pain in joint, lower leg 01/21/2010 016 Routine general medical exam ination at a health care facility 04/30/2009 06/25/2015 Overview: 04/30/2009, establish from Dr. Givens 06/25/2010, yearly check-up (60 minutes) Routine gynecological examination 04/30/2009 06/25/2015 Overview: Dr[facility] Schmitz, [facility] [place] Tenosynovitis of foot and ankle 06/29/2008 04/30/2009 Acute bronchitis 05/18/2008 04/30/2009 Anemia, unspecified 12/04/2006 09/29/2019 Cellulitis and abscess of foot, except toes 10/200604/30/2009 Onychia and paronychia of toe 08/11/2006 Pain in joint, shoulder region 05/22/2006 0 04/30/2009 Sprain of neck 05/22/2006 04/30/2009 DUPUYTRENS CONTRACTURES 03/23/2006 04/30/19 10 Dermatophytosis of nail 09/04/2005 04/30/19 10 CARPAL TUNNEL BILATERRAL 08/08/2005 020 Nonspecific abnormal results of liver function s tudy 08/08/2005 04/30/2009 OVERWEIGHT 08/08/2005 04/30/2009 Ingrowing nail 03/20/2005 04/30/2009 Pain in limb 03/20/2005 04/30/2009 Allergic Rhinitis, Cause Unspecified 01/13/2005 06/25/2015 Coronary artery disease involving [place] coronar y artery 09/29/2019 Overview: Dr. Pederson follows regularly; S/P PTCA and stenting at [facility], [place], 2000 Last Assessment & Plan: Currently she has no chest pain or SOB. 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 0 09/29/2019 Diverticulosis of colon (without mention of hemo rrhage) 04/30/2009 External hemorrhoids without mention of complica tion 04/30/2009 Internal hemorrhoids without mention of complica tion 04/30/2009 documented as of this encounter (statuses as of 10/24/2021) [facility] History of Past illness Narrative* Problem Noted Date Resolved Date SHERLYN (acute kidney injury) 09/29/20192019 Last Assessment & Plan: Assessment: DKA induced with dehydration PLAN: Volume resuscitated, IVF now KVO Tolerating PO diet Monitor BUN/Cr for further changes DKA (diabetic ketoacidoses) 09/28/2019 07/0 04/2020 Last Assessment & Plan: 2/ 2 Insulin Pump malfunction. Hyperglycemia On admission with CBG > 600 and AG 26 - now resolved. PLAN: Endocrinology consulted AG closed, insulin infusion stopped- back on her insulin pump now Dc home with accucheck / home insulin pump therapy and fup recs Other dysphagia 07/18/2019 09/29/2019 Vertigo 08/12/2015 09/29/2019 BPPV (benign paroxysmal positional vertigo) 01/1909/29/2019 Vertigo 02/02/2013 06/25/2015 Thoracic or lumbosacral neuritis or radiculitis, unspecified 03/01/2012 09/29/2019 Abnormality of gait 03/01/2012 06/25/2015 Pain in joint, lower leg 01/21/2010 016 Routine general medical exam ination at a health care facility 04/30/2009 06/25/2015 Overview: 04/30/2009, establish from Dr. Givens 06/25/2010, yearly check-up (60 minutes) Routine gynecological examination 04/30/2009 06/25/2015 Overview: [facility] Schmitz, [facility] [place] Tenosynovitis of foot and ankle 06/29/2008 04/30/2009 Acute bronchitis 05/18/2008 04/30/2009 Anemia, unspecified 12/04/2006 09/29/2019 Cellulitis and abscess of foot, except toes 10/200604/30/2009 Onychia and paronychia of toe 08/11/2006 Pain in joint, shoulder region 05/22/2006 0 04/30/2009 Sprain of neck 05/22/2006 04/30/2009 DUPUYTRENS CONTRACTURES 03/23/2006 04/30/19 10 Dermatophytosis of nail 09/04/2005 04/30/19 10 CARPAL TUNNEL BILATERRAL 08/08/2005 020 Nonspecific abnormal results of liver function s tudy 08/08/2005 04/30/2009 OVERWEIGHT 08/08/2005 04/30/2009 Ingrowing nail 03/20/2005 04/30/2009 Pain in limb 03/20/2005 04/30/2009 Allergic Rhinitis, Cause Unspecified 01/13/2005 06/25/2015 Coronary artery disease involving [place] coronar y artery 09/29/2019 Overview: Dr. Pederson follows regularly; S/P PTCA and stenting at [facility], [place], 2000 Last Assessment & Plan: Currently she has no chest pain or SOB. 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 0 09/29/2019 Diverticulosis of colon (without mention of hemo rrhage) 04/30/2009 External hemorrhoids without mention of complica tion 04/30/2009 Internal hemorrhoids without mention of complica tion 04/30/2009 documented as of this encounter (statuses as of 11/05/2021) [facility] History of Past illness Narrative* Problem Noted Date Resolved Date SHERLYN (acute kidney injury) 09/29/20192019 Last Assessment & Plan: Assessment: DKA induced with dehydration PLAN: Volume resuscitated, IVF now KVO Tolerating PO diet Monitor BUN/Cr for further changes DKA (diabetic ketoacidoses) 09/28/2019 07/0 04/2020 Last Assessment & Plan: 2/ 2 Insulin Pump malfunction. Hyperglycemia On admission with CBG > 600 and AG 26 - now resolved. PLAN: Endocrinology consulted AG closed, insulin infusion stopped- back on her insulin pump now Dc home with accucheck / home insulin pump therapy and fup recs Other dysphagia 07/18/2019 09/29/2019 Vertigo 08/12/2015 09/29/2019 BPPV (benign paroxysmal positional vertigo) 01/1909/29/2019 Vertigo 02/02/2013 06/25/2015 Thoracic or lumbosacral neuritis or radiculitis, unspecified 03/01/2012 09/29/2019 Abnormality of gait 03/01/2012 06/25/2015 Pain in joint, lower leg 01/21/2010 016 Routine general medical exam ination at a health care facility 04/30/2009 06/25/2015 Overview: 04/30/2009, establish from Dr. Givens 06/25/2010, yearly check-up (60 minutes) Routine gynecological examination 04/30/2009 06/25/2015 Overview: Dr. Schmitz, [facility] Tia Tenosynovitis of foot and ankle 06/29/2008 04/30/2009 Acute bronchitis 05/18/2008 04/30/2009 Anemia, unspecified 12/04/2006 09/29/2019 Cellulitis and abscess of foot, except toes 10/200604/30/2009 Onychia and paronychia of toe 08/11/2006 Pain in joint, shoulder region 05/22/2006 0 04/30/2009 Sprain of neck 05/22/2006 04/30/2009 DUPUYTRENS CONTRACTURES 03/23/2006 04/30/19 10 Dermatophytosis of nail 09/04/2005 04/30/19 10 CARPAL TUNNEL BILATERRAL 08/08/2005 020 Nonspecific abnormal results of liver function s tudy 08/08/2005 04/30/2009 OVERWEIGHT 08/08/2005 04/30/2009 Ingrowing nail 03/20/2005 04/30/2009 Pain in limb 03/20/2005 04/30/2009 Allergic Rhinitis, Cause Unspecified 01/13/2005 06/25/2015 Coronary artery disease involving [place] coronar y artery 09/29/2019 Overview: Dr. Pederson follows regularly; S/P PTCA and stenting at [facility], [place], 2000 Last Assessment & Plan: Currently she has no chest pain or SOB. 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 0 09/29/2019 Diverticulosis of colon (without mention of hemo rrhage) 04/30/2009 External hemorrhoids without mention of complica tion 04/30/2009 Internal hemorrhoids without mention of complica tion 04/30/2009 documented as of this encounter (statuses as of 11/13/2021) [facility] History of Past illness Narrative* Problem Noted Date Resolved Date SHERLYN (acute kidney injury) 09/29/20192019 Last Assessment & Plan: Assessment: DKA induced with dehydration PLAN: Volume resuscitated, IVF now KVO Tolerating PO diet Monitor BUN/Cr for further changes DKA (diabetic ketoacidoses) 09/28/2019 07/0 04/2020 Last Assessment & Plan: 2/ 2 Insulin Pump malfunction. Hyperglycemia On admission with CBG > 600 and AG 26 - now resolved. PLAN: Endocrinology consulted AG closed, insulin infusion stopped- back on her insulin pump now Dc home with accucheck / home insulin pump therapy and fup recs Other dysphagia 07/18/2019 09/29/2019 Vertigo 08/12/2015 09/29/2019 BPPV (benign paroxysmal positional vertigo) 01/1909/29/2019 Vertigo 02/02/2013 06/25/2015 Thoracic or lumbosacral neuritis or radiculitis, unspecified 03/01/2012 09/29/2019 Abnormality of gait 03/01/2012 06/25/2015 Pain in joint, lower leg 01/21/2010 016 Routine general medical exam ination at a health care facility 04/30/2009 06/25/2015 Overview: 04/30/2009, establish from Dr. Givens 06/25/2010, yearly check-up (60 minutes) Routine gynecological examination 04/30/2009 06/25/2015 Overview: Dr. Schmitz, [facility] Tia Tenosynovitis of foot and ankle 06/29/2008 04/30/2009 Acute bronchitis 05/18/2008 04/30/2009 Anemia, unspecified 12/04/2006 09/29/2019 Cellulitis and abscess of foot, except toes 10/200604/30/2009 Onychia and paronychia of toe 08/11/2006 Pain in joint, shoulder region 05/22/2006 0 04/30/2009 Sprain of neck 05/22/2006 04/30/2009 DUPUYTRENS CONTRACTURES 03/23/2006 04/30/19 10 Dermatophytosis of nail 09/04/2005 04/30/19 10 CARPAL TUNNEL BILATERRAL 08/08/2005 020 Nonspecific abnormal results of liver function s tudy 08/08/2005 04/30/2009 OVERWEIGHT 08/08/2005 04/30/2009 Ingrowing nail 03/20/2005 04/30/2009 Pain in limb 03/20/2005 04/30/2009 Allergic Rhinitis, Cause Unspecified 01/13/2005 06/25/2015 Coronary artery disease involving [place] coronar y artery 09/29/2019 Overview: Dr. Pederson follows regularly; S/P PTCA and stenting at [facility], [place], 2000 Last Assessment & Plan: Currently she has no chest pain or SOB. 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 0 09/29/2019 Diverticulosis of colon (without mention of hemo rrhage) 04/30/2009 External hemorrhoids without mention of complica tion 04/30/2009 Internal hemorrhoids without mention of complica tion 04/30/2009 documented as of this encounter (statuses as of 11/20/2021) [facility] History of Past illness Narrative* Problem Noted Date Resolved Date SHERLYN (acute kidney injury) 09/29/20192019 Last Assessment & Plan: Assessment: DKA induced with dehydration PLAN: Volume resuscitated, IVF now KVO Tolerating PO diet Monitor BUN/Cr for further changes DKA (diabetic ketoacidoses) 09/28/2019 070 04/2020 Last Assessment & Plan: 2/ 2 Insulin Pump malfunction. Hyperglycemia On admission with CBG > 600 and AG 26 - now resolved. PLAN: Endocrinology consulted AG closed, insulin infusion stopped- back on her insulin pump now Dc home with accucheck / home insulin pump therapy and fup recs Other dysphagia 07/18/2019 09/29/2019 Vertigo 08/12/2015 09/29/2019 BPPV (benign paroxysmal positional vertigo) 01/1909/29/2019 Vertigo 02/02/2013 06/25/2015 Thoracic or lumbosacral neuritis or radiculitis, unspecified 03/01/2012 09/29/2019 Abnormality of gait 03/01/2012 06/25/2015 Pain in joint, lower leg 01/21/2010 016 Routine general medical exam ination at a health care facility 04/30/2009 06/25/2015 Overview: 04/30/2009, establish from Dr. Givens 06/25/2010, yearly check-up (60 minutes) Routine gynecological examination 04/30/2009 06/25/2015 Overview: Dr. Schmitz, [facility] Tenosynovitis of foot and ankle 06/29/2008 04/30/2009 Acute bronchitis 05/18/2008 04/30/2009 Anemia, unspecified 12/04/2006 09/29/2019 Cellulitis and abscess of foot, except toes 10/200604/30/2009 Onychia and paronychia of toe 08/11/2006 Pain in joint, shoulder region 05/22/2006 0 04/30/2009 Sprain of neck 05/22/2006 04/30/2009 DUPUYTRENS CONTRACTURES 03/23/2006 04/30/19 10 Dermatophytosis of nail 09/04/2005 04/30/19 10 CARPAL TUNNEL BILATERRAL 08/08/2005 06/11/2 020 Nonspecific abnormal results of liver function s tudy 08/08/2005 04/30/2009 OVERWEIGHT 08/08/2005 04/30/2009 Ingrowing nail 03/20/2005 04/30/2009 Pain in limb 03/20/2005 04/30/2009 Allergic Rhinitis, Cause Unspecified 01/13/2005 06/25/2015 Coronary artery disease involving [place] coronar y artery 09/29/2019 Overview: Dr. Pederson follows regularly; S/P PTCA and stenting at [facility], [place], 2000 Last Assessment & Plan: Currently she has no chest pain or SOB. 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 0 09/29/2019 Diverticulosis of colon (without mention of hemo rrhage) 04/30/2009 External hemorrhoids without mention of complica tion 04/30/2009 Internal hemorrhoids without mention of complica tion 04/30/2009 documented as of this encounter (statuses as of 11/21/2021) [facility] History of Past illness Narrative* Problem Noted Date Resolved Date SHERLYN (acute kidney injury) 09/29/20192019 Last Assessment & Plan: Assessment: DKA induced with dehydration PLAN: Volume resuscitated, IVF now KVO Tolerating PO diet Monitor BUN/Cr for further changes DKA (diabetic ketoacidoses) 09/28/2019 07/0 04/2020 Last Assessment & Plan: 2/ 2 Insulin Pump malfunction. Hyperglycemia On admission with CBG > 600 and AG 26 - now resolved. PLAN: Endocrinology consulted AG closed, insulin infusion stopped- back on her insulin pump now Dc home with accucheck / home insulin pump therapy and fup recs Other dysphagia 07/18/2019 09/29/2019 Vertigo 08/12/2015 09/29/2019 BPPV (benign paroxysmal positional vertigo) 01/1909/29/2019 Vertigo 02/02/2013 06/25/2015 Thoracic or lumbosacral neuritis or radiculitis, unspecified 03/01/2012 09/29/2019 Abnormality of gait 03/01/2012 06/25/2015 Pain in joint, lower leg 01/21/2010 016 Routine general medical exam ination at a health care facility 04/30/2009 06/25/2015 Overview: 04/30/2009, establish from Dr. Givens 06/25/2010, yearly check-up (60 minutes) Routine gynecological examination 04/30/2009 06/25/2015 Overview: Dr[facility] Schmitz, [facility] Tia Tenosynovitis of foot and ankle 06/29/2008 04/30/2009 Acute bronchitis 05/18/2008 04/30/2009 Anemia, unspecified 12/04/2006 09/29/2019 Cellulitis and abscess of foot, except toes 10/200604/30/2009 Onychia and paronychia of toe 08/11/2006 Pain in joint, shoulder region 05/22/2006 0 04/30/2009 Sprain of neck 05/22/2006 04/30/2009 DUPUYTRENS CONTRACTURES 03/23/2006 04/30/19 10 Dermatophytosis of nail 09/04/2005 04/30/19 10 CARPAL TUNNEL BILATERRAL 08/08/2005 020 Nonspecific abnormal results of liver function s tudy 08/08/2005 04/30/2009 OVERWEIGHT 08/08/2005 04/30/2009 Ingrowing nail 03/20/2005 04/30/2009 Pain in limb 03/20/2005 04/30/2009 Allergic Rhinitis, Cause Unspecified 01/13/2005 06/25/2015 Coronary artery disease involving [place] coronar y artery 09/29/2019 Overview: Dr. Pederson follows regularly; S/P PTCA and stenting at [facility], [place], 2001 Last Assessment & Plan: Currently she has no chest pain or SOB. 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 0 09/29/2019 Diverticulosis of colon (without mention of hemo rrhage) 04/30/2009 External hemorrhoids without mention of complica tion 04/30/2009 Internal hemorrhoids without mention of complica tion 04/30/2009 documented as of this encounter (statuses as of 12/27/2021) [facility] History of Past illness Narrative* Problem Noted Date Resolved Date SHERLYN (acute kidney injury) 09/29/20192019 Last Assessment & Plan: Assessment: DKA induced with dehydration PLAN: Volume resuscitated, IVF now KVO Tolerating PO diet Monitor BUN/Cr for further changes DKA (diabetic ketoacidoses) 09/28/2019 07/0 04/2020 Last Assessment & Plan: 2/ 2 Insulin Pump malfunction. Hyperglycemia On admission with CBG > 600 and AG 26 - now resolved. PLAN: Endocrinology consulted AG closed, insulin infusion stopped- back on her insulin pump now Dc home with accucheck / home insulin pump therapy and fup recs Other dysphagia 07/18/2019 09/29/2019 Vertigo 08/12/2015 09/29/2019 BPPV (benign paroxysmal positional vertigo) 01/1909/29/2019 Vertigo 02/02/2013 06/25/2015 Thoracic or lumbosacral neuritis or radiculitis, unspecified 03/01/2012 09/29/2019 Abnormality of gait 03/01/2012 06/25/2015 Pain in joint, lower leg 01/21/2010 016 Routine general medical exam ination at a health care facility 04/30/2009 06/25/2015 Overview: 04/30/2009, establish from Dr. Givens 06/25/2010, yearly check-up (60 minutes) Routine gynecological examination 04/30/2009 06/25/2015 Overview: [facility] Schmitz, [facility] Tia Tenosynovitis of foot and ankle 06/29/2008 04/30/2009 Acute bronchitis 05/18/2008 04/30/2009 Anemia, unspecified 12/04/2006 09/29/2019 Cellulitis and abscess of foot, except toes 10/200604/30/2009 Onychia and paronychia of toe 08/11/2006 Pain in joint, shoulder region 05/22/2006 0 04/30/2009 Sprain of neck 05/22/2006 04/30/2009 DUPUYTRENS CONTRACTURES 03/23/2006 04/30/19 10 Dermatophytosis of nail 09/04/2005 04/30/19 10 CARPAL TUNNEL BILATERRAL 08/08/2005 020 Nonspecific abnormal results of liver function s tudy 08/08/2005 04/30/2009 OVERWEIGHT 08/08/2005 04/30/2009 Ingrowing nail 03/20/2005 04/30/2009 Pain in limb 03/20/2005 04/30/2009 Allergic Rhinitis, Cause Unspecified 01/13/2005 06/25/2015 Coronary artery disease involving [place] coronar y artery 09/29/2019 Overview: Dr. Pederson follows regularly; S/P PTCA and stenting at [facility], [place], 2001 Last Assessment & Plan: Currently she has no chest pain or SOB. 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 0 09/29/2019 Diverticulosis of colon (without mention of hemo rrhage) 04/30/2009 External hemorrhoids without mention of complica tion 04/30/2009 Internal hemorrhoids without mention of complica tion 04/30/2009 documented as of this encounter (statuses as of 12/31/2021) [facility] History of Past illness Narrative* Problem Noted Date Resolved Date SHERLYN (acute kidney injury) 09/29/20192019 Last Assessment & Plan: Assessment: DKA induced with dehydration PLAN: Volume resuscitated, IVF now KVO Tolerating PO diet Monitor BUN/Cr for further changes DKA (diabetic ketoacidoses) 09/28/2019 07/0 04/2020 Last Assessment & Plan: / Insulin Pump malfunction. Hyperglycemia On admission with CBG > 600 and AG 26 - now resolved. PLAN: Endocrinology consulted AG closed, insulin infusion stopped- back on her insulin pump now Dc home with accucheck / home insulin pump therapy and fup recs Other dysphagia 07/18/2019 09/29/2019 Vertigo 08/12/2015 09/29/2019 BPPV (benign paroxysmal positional vertigo) 01/1909/29/2019 Vertigo 02/02/2013 06/25/2015 Thoracic or lumbosacral neuritis or radiculitis, unspecified 03/01/2012 09/29/2019 Abnormality of gait 03/01/2012 06/25/2015 Pain in joint, lower leg 01/21/2010 016 Routine general medical exam ination at a health care facility 04/30/2009 06/25/2015 Overview: 04/30/2009, establish from Dr. Givens 06/25/2010, yearly check-up (60 minutes) Routine gynecological examination 04/30/2009 06/25/2015 Overview: Dr[facility] Schmitz, [facility] Tia Tenosynovitis of foot and ankle 06/29/2008 04/30/2009 Acute bronchitis 05/18/2008 04/30/2009 Anemia, unspecified 12/04/2006 09/29/2019 Cellulitis and abscess of foot, except toes 10/200604/30/2009 Onychia and paronychia of toe 08/11/2006 Pain in joint, shoulder region 05/22/2006 0 04/30/2009 Sprain of neck 05/22/2006 04/30/2009 DUPUYTRENS CONTRACTURES 03/23/2006 04/30/19 10 Dermatophytosis of nail 09/04/2005 04/30/19 10 CARPAL TUNNEL BILATERRAL 08/08/2005 020 Nonspecific abnormal results of liver function s tudy 08/08/2005 04/30/2009 OVERWEIGHT 08/08/2005 04/30/2009 Ingrowing nail 03/20/2005 04/30/2009 Pain in limb 03/20/2005 04/30/2009 Allergic Rhinitis, Cause Unspecified 01/13/2005 06/25/2015 Coronary artery disease involving [place] coronar y artery 09/29/2019 Overview: Dr. Pederson follows regularly; S/P PTCA and stenting at [facility], [place], 2000 Last Assessment & Plan: Currently she has no chest pain or SOB. 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 0 09/29/2019 Diverticulosis of colon (without mention of hemo rrhage) 04/30/2009 External hemorrhoids without mention of complica tion 04/30/2009 Internal hemorrhoids without mention of complica tion 04/30/2009 documented as of this encounter (statuses as of 12/31/2021) [facility] History of Past illness Narrative* Problem Noted Date Resolved Date SHERLYN (acute kidney injury) 09/29/20192019 Last Assessment & Plan: Assessment: DKA induced with dehydration PLAN: Volume resuscitated, IVF now KVO Tolerating PO diet Monitor BUN/Cr for further changes DKA (diabetic ketoacidoses) 09/28/2019 07/0 04/2020 Last Assessment & Plan: 2/ Insulin Pump malfunction. Hyperglycemia On admission with CBG > 600 and AG 26 - now resolved. PLAN: Endocrinology consulted AG closed, insulin infusion stopped- back on her insulin pump now Dc home with accucheck / home insulin pump therapy and fup recs Other dysphagia 07/18/2019 09/29/2019 Vertigo 08/12/2015 09/29/2019 BPPV (benign paroxysmal positional vertigo) 01/1909/29/2019 Vertigo 02/02/2013 06/25/2015 Thoracic or lumbosacral neuritis or radiculitis, unspecified 03/01/2012 09/29/2019 Abnormality of gait 03/01/2012 06/25/2015 Pain in joint, lower leg 01/21/2010 016 Routine general medical exam ination at a health care facility 04/30/2009 06/25/2015 Overview: 04/30/2009, establish from Dr. Givens 06/25/2010, yearly check-up (60 minutes) Routine gynecological examination 04/30/2009 06/25/2015 Overview: [facility] Schmitz, [facility] Tia Tenosynovitis of foot and ankle 06/29/2008 04/30/2009 Acute bronchitis 05/18/2008 04/30/2009 Anemia, unspecified 12/04/2006 09/29/2019 Cellulitis and abscess of foot, except toes 10/200604/30/2009 Onychia and paronychia of toe 08/11/2006 Pain in joint, shoulder region 05/22/2006 0 04/30/2009 Sprain of neck 05/22/2006 04/30/2009 DUPUYTRENS CONTRACTURES 03/23/2006 04/30/19 10 Dermatophytosis of nail 09/04/2005 04/30/19 10 CARPAL TUNNEL BILATERRAL 08/08/2005 020 Nonspecific abnormal results of liver function s tudy 08/08/2005 04/30/2009 OVERWEIGHT 08/08/2005 04/30/2009 Ingrowing nail 03/20/2005 04/30/2009 Pain in limb 03/20/2005 04/30/2009 Allergic Rhinitis, Cause Unspecified 01/13/2005 06/25/2015 Coronary artery disease involving [place] coronar y artery 09/29/2019 Overview: Dr. Pederson follows regularly; S/P PTCA and stenting at [facility], [place], 2000 Last Assessment & Plan: Currently she has no chest pain or SOB. 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 0 09/29/2019 Diverticulosis of colon (without mention of hemo rrhage) 04/30/2009 External hemorrhoids without mention of complica tion 04/30/2009 Internal hemorrhoids without mention of complica tion 04/30/2009 documented as of this encounter (statuses as of 01/22/2022) [facility] History of Past illness Narrative* Problem Noted Date Resolved Date SHERLYN (acute kidney injury) 09/29/20192019 Last Assessment & Plan: Assessment: DKA induced with dehydration PLAN: Volume resuscitated, IVF now KVO Tolerating PO diet Monitor BUN/Cr for further changes DKA (diabetic ketoacidoses) 09/28/2019 07/0 04/2020 Last Assessment & Plan: 2/ 2 Insulin Pump malfunction. Hyperglycemia On admission with CBG > 600 and AG 26 - now resolved. PLAN: Endocrinology consulted AG closed, insulin infusion stopped- back on her insulin pump now Dc home with accucheck / home insulin pump therapy and fup recs Other dysphagia 07/18/2019 09/29/2019 Vertigo 08/12/2015 09/29/2019 BPPV (benign paroxysmal positional vertigo) 01/1909/29/2019 Vertigo 02/02/2013 06/25/2015 Thoracic or lumbosacral neuritis or radiculitis, unspecified 03/01/2012 09/29/2019 Abnormality of gait 03/01/2012 06/25/2015 Pain in joint, lower leg 01/21/2010 016 Routine general medical exam ination at a health care facility 04/30/2009 06/25/2015 Overview: 04/30/2009, establish from Dr. Givens 06/25/2010, yearly check-up (60 minutes) Routine gynecological examination 04/30/2009 06/25/2015 Overview: [facility] Schmitz, [facility] Tia Tenosynovitis of foot and ankle 06/29/2008 04/30/2009 Acute bronchitis 05/18/2008 04/30/2009 Anemia, unspecified 12/04/2006 09/29/2019 Cellulitis and abscess of foot, except toes 10/200604/30/2009 Onychia and paronychia of toe 08/11/2006 Pain in joint, shoulder region 05/22/2006 0 04/30/2009 Sprain of neck 05/22/2006 04/30/2009 DUPUYTRENS CONTRACTURES 03/23/2006 04/30/19 10 Dermatophytosis of nail 09/04/2005 04/30/19 10 CARPAL TUNNEL BILATERRAL 08/08/2005 020 Nonspecific abnormal results of liver function s tudy 08/08/2005 04/30/2009 OVERWEIGHT 08/08/2005 04/30/2009 Ingrowing nail 03/20/2005 04/30/2009 Pain in limb 03/20/2005 04/30/2009 Allergic Rhinitis, Cause Unspecified 01/13/2005 06/25/2015 Coronary artery disease involving [place] coronar y artery 09/29/2019 Overview: Dr. Pederson follows regularly; S/P PTCA and stenting at [facility], [place], 2000 Last Assessment & Plan: Currently she has no chest pain or SOB. 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 0 09/29/2019 Diverticulosis of colon (without mention of hemo rrhage) 04/30/2009 External hemorrhoids without mention of complica tion 04/30/2009 Internal hemorrhoids without mention of complica tion 04/30/2009 documented as of this encounter (statuses as of 01/23/2022) [facility] History of Past illness Narrative* Problem Noted Date Resolved Date SHERLYN (acute kidney injury) 09/29/20192019 Last Assessment & Plan: Assessment: DKA induced with dehydration PLAN: Volume resuscitated, IVF now KVO Tolerating PO diet Monitor BUN/Cr for further changes DKA (diabetic ketoacidoses) 09/28/2019 07/0 04/2020 Last Assessment & Plan: 2/ 2 Insulin Pump malfunction. Hyperglycemia On admission with CBG > 600 and AG 26 - now resolved. PLAN: Endocrinology consulted AG closed, insulin infusion stopped- back on her insulin pump now Dc home with accucheck / home insulin pump therapy and fup recs Other dysphagia 07/18/2019 09/29/2019 Vertigo 08/12/2015 09/29/2019 BPPV (benign paroxysmal positional vertigo) 01/1909/29/2019 Vertigo 02/02/2013 06/25/2015 Thoracic or lumbosacral neuritis or radiculitis, unspecified 03/01/2012 09/29/2019 Abnormality of gait 03/01/2012 06/25/2015 Pain in joint, lower leg 01/21/2010 016 Routine general medical exam ination at a health care facility 04/30/2009 06/25/2015 Overview: 04/30/2009, establish from Dr. Givens 06/25/2010, yearly check-up (60 minutes) Routine gynecological examination 04/30/2009 06/25/2015 Overview: Dr[facility] Schmit[facility], [facility] [place] Tenosynovitis of foot and ankle 06/29/2008 04/30/2009 Acute bronchitis 05/18/2008 04/30/2009 Anemia, unspecified 12/04/2006 09/29/2019 Cellulitis and abscess of foot, except toes 10/200604/30/2009 Onychia and paronychia of toe 08/11/2006 Pain in joint, shoulder region 05/22/2006 0 04/30/2009 Sprain of neck 05/22/2006 04/30/2009 DUPUYTRENS CONTRACTURES 03/23/2006 04/30/19 10 Dermatophytosis of nail 09/04/2005 04/30/19 10 CARPAL TUNNEL BILATERRAL 08/08/2005 020 Nonspecific abnormal results of liver function s tudy 08/08/2005 04/30/2009 OVERWEIGHT 08/08/2005 04/30/2009 Ingrowing nail 03/20/2005 04/30/2009 Pain in limb 03/20/2005 04/30/2009 Allergic Rhinitis, Cause Unspecified 01/13/2005 06/25/2015 Coronary artery disease involving [place] coronar y artery 09/29/2019 Overview: Dr. Pederson follows regularly; S/P PTCA and stenting at [facility], [place], 2000 Last Assessment & Plan: Currently she has no chest pain or SOB. 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 0 09/29/2019 Diverticulosis of colon (without mention of hemo rrhage) 04/30/2009 External hemorrhoids without mention of complica tion 04/30/2009 Internal hemorrhoids without mention of complica tion 04/30/2009 documented as of this encounter (statuses as of 01/30/2022) [facility] History of Past illness Narrative* Problem Noted Date Resolved Date SHERLYN (acute kidney injury) 09/29/20192019 Last Assessment & Plan: Assessment: DKA induced with dehydration PLAN: Volume resuscitated, IVF now KVO Tolerating PO diet Monitor BUN/Cr for further changes DKA (diabetic ketoacidoses) 09/28/2019 07/0 04/2020 Last Assessment & Plan: 2/ 2 Insulin Pump malfunction. Hyperglycemia On admission with CBG > 600 and AG 26 - now resolved. PLAN: Endocrinology consulted AG closed, insulin infusion stopped- back on her insulin pump now Dc home with accucheck / home insulin pump therapy and fup recs Other dysphagia 07/18/2019 09/29/2019 Vertigo 08/12/2015 09/29/2019 BPPV (benign paroxysmal positional vertigo) 01/1909/29/2019 Vertigo 02/02/2013 06/25/2015 Thoracic or lumbosacral neuritis or radiculitis, unspecified 03/01/2012 09/29/2019 Abnormality of gait 03/01/2012 06/25/2015 Pain in joint, lower leg 01/21/2010 016 Routine general medical exam ination at a health care facility 04/30/2009 06/25/2015 Overview: 04/30/2009, establish from Dr. Givens 06/25/2010, yearly check-up (60 minutes) Routine gynecological examination 04/30/2009 06/25/2015 Overview: Dr[facility] Schmitz, [facility], [facility] [place] Tenosynovitis of foot and ankle 06/29/2008 04/30/2009 Acute bronchitis 05/18/2008 04/30/2009 Anemia, unspecified 12/04/2006 09/29/2019 Cellulitis and abscess of foot, except toes 10/200604/30/2009 Onychia and paronychia of toe 08/11/2006 Pain in joint, shoulder region 05/22/2006 0 04/30/2009 Sprain of neck 05/22/2006 04/30/2009 DUPUYTRENS CONTRACTURES 03/23/2006 04/30/19 10 Dermatophytosis of nail 09/04/2005 04/30/19 10 CARPAL TUNNEL BILATERRAL 08/08/2005 020 Nonspecific abnormal results of liver function s tudy 08/08/2005 04/30/2009 OVERWEIGHT 08/08/2005 04/30/2009 Ingrowing nail 03/20/2005 04/30/2009 Pain in limb 03/20/2005 04/30/2009 Allergic Rhinitis, Cause Unspecified 01/13/2005 06/25/2015 Coronary artery disease involving [place] coronar y artery 09/29/2019 Overview: Dr. Pederson follows regularly; S/P PTCA and stenting at [facility], [place], 2000 Last Assessment & Plan: Currently she has no chest pain or SOB. 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 0 09/29/2019 Diverticulosis of colon (without mention of hemo rrhage) 04/30/2009 External hemorrhoids without mention of complica tion 04/30/2009 Internal hemorrhoids without mention of complica tion 04/30/2009 documented as of this encounter (statuses as of 01/31/2022) [facility] History of Past illness Narrative* Problem Noted Date Resolved Date SHERLYN (acute kidney injury) 09/29/20192019 Last Assessment & Plan: Assessment: DKA induced with dehydration PLAN: Volume resuscitated, IVF now KVO Tolerating PO diet Monitor BUN/Cr for further changes DKA (diabetic ketoacidoses) 09/28/2019 07/0 04/2020 Last Assessment & Plan: 2/ 2 Insulin Pump malfunction. Hyperglycemia On admission with CBG > 600 and AG 26 - now resolved. PLAN: Endocrinology consulted AG closed, insulin infusion stopped- back on her insulin pump now Dc home with accucheck / home insulin pump therapy and fup recs Other dysphagia 07/18/2019 09/29/2019 Vertigo 08/12/2015 09/29/2019 BPPV (benign paroxysmal positional vertigo) 01/1909/29/2019 Vertigo 02/02/2013 06/25/2015 Thoracic or lumbosacral neuritis or radiculitis, unspecified 03/01/2012 09/29/2019 Abnormality of gait 03/01/2012 06/25/2015 Pain in joint, lower leg 01/21/2010 016 Routine general medical exam ination at a health care facility 04/30/2009 06/25/2015 Overview: 04/30/2009, establish from Dr. Givens 06/25/2010, yearly check-up (60 minutes) Routine gynecological examination 04/30/2009 06/25/2015 Overview: Dr. Schmitz, [facility], [facility] [place] Tenosynovitis of foot and ankle 06/29/2008 04/30/2009 Acute bronchitis 05/18/2008 04/30/2009 Anemia, unspecified 12/04/2006 09/29/2019 Cellulitis and abscess of foot, except toes 10/200604/30/2009 Onychia and paronychia of toe 08/11/2006 Pain in joint, shoulder region 05/22/2006 0 04/30/2009 Sprain of neck 05/22/2006 04/30/2009 DUPUYTRENS CONTRACTURES 03/23/2006 04/30/19 10 Dermatophytosis of nail 09/04/2005 04/30/19 10 CARPAL TUNNEL BILATERRAL 08/08/2005 020 Nonspecific abnormal results of liver function s tudy 08/08/2005 04/30/2009 OVERWEIGHT 08/08/2005 04/30/2009 Ingrowing nail 03/20/2005 04/30/2009 Pain in limb 03/20/2005 04/30/2009 Allergic Rhinitis, Cause Unspecified 01/13/2005 06/25/2015 Coronary artery disease involving [place] coronar y artery 09/29/2019 Overview: Dr. Pederson follows regularly; S/P PTCA and stenting at [facility], [place], 2000 Last Assessment & Plan: Currently she has no chest pain or SOB. 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 0 09/29/2019 Diverticulosis of colon (without mention of hemo rrhage) 04/30/2009 External hemorrhoids without mention of complica tion 04/30/2009 Internal hemorrhoids without mention of complica tion 04/30/2009 documented as of this encounter (statuses as of 02/04/2022) [facility] History of Past illness Narrative* Problem Noted Date Resolved Date SHERLYN (acute kidney injury) 09/29/20192019 Last Assessment & Plan: Assessment: DKA induced with dehydration PLAN: Volume resuscitated, IVF now KVO Tolerating PO diet Monitor BUN/Cr for further changes DKA (diabetic ketoacidoses) 09/28/2019 07/0 04/2020 Last Assessment & Plan: 2/ 2 Insulin Pump malfunction. Hyperglycemia On admission with CBG > 600 and AG 26 - now resolved. PLAN: Endocrinology consulted AG closed, insulin infusion stopped- back on her insulin pump now Dc home with accucheck / home insulin pump therapy and fup recs Other dysphagia 07/18/2019 09/29/2019 Vertigo 08/12/2015 09/29/2019 BPPV (benign paroxysmal positional vertigo) 01/1909/29/2019 Vertigo 02/02/2013 06/25/2015 Thoracic or lumbosacral neuritis or radiculitis, unspecified 03/01/2012 09/29/2019 Abnormality of gait 03/01/2012 06/25/2015 Pain in joint, lower leg 01/21/2010 016 Routine general medical exam ination at a health care facility 04/30/2009 06/25/2015 Overview: 04/30/2009, establish from Dr. Givens 06/25/2010, yearly check-up (60 minutes) Routine gynecological examination 04/30/2009 06/25/2015 Overview: Dr[facility] Schmitz, [facility] [place] Tenosynovitis of foot and ankle 06/29/2008 04/30/2009 Acute bronchitis 05/18/2008 04/30/2009 Anemia, unspecified 12/04/2006 09/29/2019 Cellulitis and abscess of foot, except toes 10/200604/30/2009 Onychia and paronychia of toe 08/11/2006 Pain in joint, shoulder region 05/22/2006 0 04/30/2009 Sprain of neck 05/22/2006 04/30/2009 DUPUYTRENS CONTRACTURES 03/23/2006 04/30/19 10 Dermatophytosis of nail 09/04/2005 04/30/19 10 CARPAL TUNNEL BILATERRAL 08/08/2005 020 Nonspecific abnormal results of liver function s tudy 08/08/2005 04/30/2009 OVERWEIGHT 08/08/2005 04/30/2009 Ingrowing nail 03/20/2005 04/30/2009 Pain in limb 03/20/2005 04/30/2009 Allergic Rhinitis, Cause Unspecified 01/13/2005 06/25/2015 Coronary artery disease involving [place] coronar y artery 09/29/2019 Overview: Dr. Pederson follows regularly; S/P PTCA and stenting at [facility], [place], 2000 Last Assessment & Plan: Currently she has no chest pain or SOB. 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 0 09/29/2019 Diverticulosis of colon (without mention of hemo rrhage) 04/30/2009 External hemorrhoids without mention of complica tion 04/30/2009 Internal hemorrhoids without mention of complica tion 04/30/2009 documented as of this encounter (statuses as of 03/18/2022) [facility] History of Past illness Narrative* Problem Noted Date Resolved Date SHERLYN (acute kidney injury) 09/29/20192019 Last Assessment & Plan: Assessment: DKA induced with dehydration PLAN: Volume resuscitated, IVF now KVO Tolerating PO diet Monitor BUN/Cr for further changes DKA (diabetic ketoacidoses) 09/28/2019 07/0 04/2020 Last Assessment & Plan: 2/ 2 Insulin Pump malfunction. Hyperglycemia On admission with CBG > 600 and AG 26 - now resolved. PLAN: Endocrinology consulted AG closed, insulin infusion stopped- back on her insulin pump now Dc home with accucheck / home insulin pump therapy and fup recs Other dysphagia 07/18/2019 09/29/2019 Vertigo 08/12/2015 09/29/2019 BPPV (benign paroxysmal positional vertigo) 01/1909/29/2019 Vertigo 02/02/2013 06/25/2015 Thoracic or lumbosacral neuritis or radiculitis, unspecified 03/01/2012 09/29/2019 Abnormality of gait 03/01/2012 06/25/2015 Pain in joint, lower leg 01/21/2010 016 Routine general medical exam ination at a health care facility 04/30/2009 06/25/2015 Overview: 04/30/2009, establish from Dr. Givens 06/25/2010, yearly check-up (60 minutes) Routine gynecological examination 04/30/2009 06/25/2015 Overview: [facility] Schmitz, [facility] [place] Tenosynovitis of foot and ankle 06/29/2008 04/30/2009 Acute bronchitis 05/18/2008 04/30/2009 Anemia, unspecified 12/04/2006 09/29/2019 Cellulitis and abscess of foot, except toes 10/200604/30/2009 Onychia and paronychia of toe 08/11/2006 Pain in joint, shoulder region 05/22/2006 0 04/30/2009 Sprain of neck 05/22/2006 04/30/2009 DUPUYTRENS CONTRACTURES 03/23/2006 04/30/19 10 Dermatophytosis of nail 09/04/2005 04/30/19 10 CARPAL TUNNEL BILATERRAL 08/08/2005 020 Nonspecific abnormal results of liver function s tudy 08/08/2005 04/30/2009 OVERWEIGHT 08/08/2005 04/30/2009 Ingrowing nail 03/20/2005 04/30/2009 Pain in limb 03/20/2005 04/30/2009 Allergic Rhinitis, Cause Unspecified 01/13/2005 06/25/2015 Coronary artery disease involving [place] coronar y artery 09/29/2019 Overview: Dr. Pederson follows regularly; S/P PTCA and stenting at [facility], [place], 2000 Last Assessment & Plan: Currently she has no chest pain or SOB. 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 0 09/29/2019 Diverticulosis of colon (without mention of hemo rrhage) 04/30/2009 External hemorrhoids without mention of complica tion 04/30/2009 Internal hemorrhoids without mention of complica tion 04/30/2009 documented as of this encounter (statuses as of 04/03/2022) [facility] History of Past illness Narrative* Problem Noted Date Resolved Date SHERLYN (acute kidney injury) 09/29/20192019 Last Assessment & Plan: Assessment: DKA induced with dehydration PLAN: Volume resuscitated, IVF now KVO Tolerating PO diet Monitor BUN/Cr for further changes DKA (diabetic ketoacidoses) 09/28/2019 07/0 04/2020 Last Assessment & Plan: 2/ Insulin Pump malfunction. Hyperglycemia On admission with CBG > 600 and AG 26 - now resolved. PLAN: Endocrinology consulted AG closed, insulin infusion stopped- back on her insulin pump now Dc home with accucheck / home insulin pump therapy and fup recs Other dysphagia 07/18/2019 09/29/2019 Vertigo 08/12/2015 09/29/2019 BPPV (benign paroxysmal positional vertigo) 01/1909/29/2019 Vertigo 02/02/2013 06/25/2015 Thoracic or lumbosacral neuritis or radiculitis, unspecified 03/01/2012 09/29/2019 Abnormality of gait 03/01/2012 06/25/2015 Pain in joint, lower leg 01/21/2010 016 Routine general medical exam ination at a health care facility 04/30/2009 06/25/2015 Overview: 04/30/2009, establish from Dr. Givens 06/25/2010, yearly check-up (60 minutes) Routine gynecological examination 04/30/2009 06/25/2015 Overview: Dr[facility] Schmitz, [facility] Tenosynovitis of foot and ankle 06/29/2008 04/30/2009 Acute bronchitis 05/18/2008 04/30/2009 Anemia, unspecified 12/04/2006 09/29/2019 Cellulitis and abscess of foot, except toes 10/200604/30/2009 Onychia and paronychia of toe 08/11/2006 Pain in joint, shoulder region 05/22/2006 0 04/30/2009 Sprain of neck 05/22/2006 04/30/2009 DUPUYTRENS CONTRACTURES 03/23/2006 04/30/19 10 Dermatophytosis of nail 09/04/2005 04/30/19 10 CARPAL TUNNEL BILATERRAL 08/08/2005 020 Nonspecific abnormal results of liver function s tudy 08/08/2005 04/30/2009 OVERWEIGHT 08/08/2005 04/30/2009 Ingrowing nail 03/20/2005 04/30/2009 Pain in limb 03/20/2005 04/30/2009 Allergic Rhinitis, Cause Unspecified 01/13/2005 06/25/2015 Coronary artery disease involving [place] coronar y artery 09/29/2019 Overview: Dr. Pederson follows regularly; S/P PTCA and stenting at [facility], [place], 2001 Last Assessment & Plan: Currently she has no chest pain or SOB. 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 0 09/29/2019 Diverticulosis of colon (without mention of hemo rrhage) 04/30/2009 External hemorrhoids without mention of complica tion 04/30/2009 Internal hemorrhoids without mention of complica tion 04/30/2009 documented as of this encounter (statuses as of 04/09/2022) [facility] History of Past illness Narrative* Problem Noted Date Resolved Date SHERLYN (acute kidney injury) 09/29/20192019 Last Assessment & Plan: Assessment: DKA induced with dehydration PLAN: Volume resuscitated, IVF now KVO Tolerating PO diet Monitor BUN/Cr for further changes DKA (diabetic ketoacidoses) 09/28/2019 07/0 04/2020 Last Assessment & Plan: 2/ 2 Insulin Pump malfunction. Hyperglycemia On admission with CBG > 600 and AG 26 - now resolved. PLAN: Endocrinology consulted AG closed, insulin infusion stopped- back on her insulin pump now Dc home with accucheck / home insulin pump therapy and fup recs Other dysphagia 07/18/2019 09/29/2019 Vertigo 08/12/2015 09/29/2019 BPPV (benign paroxysmal positional vertigo) 10/08/201409/29/2019 Vertigo 02/02/2013 06/25/2015 Thoracic or lumbosacral neuritis or radiculitis, unspecified 03/01/2012 09/29/2019 Abnormality of gait 03/01/2012 06/25/2015 Pain in joint, lower leg 01/21/2010 016 Routine general medical exam ination at a health care facility 04/30/2009 06/25/2015 Overview: 04/30/2009, establish from Dr. Givens 06/25/2010, yearly check-up (60 minutes) Routine gynecological examination 04/30/2009 06/25/2015 Overview: [facility] Schmitz, [facility] [place] Tenosynovitis of foot and ankle 06/29/2008 04/30/2009 Acute bronchitis 05/18/2008 04/30/2009 Anemia, unspecified 12/04/2006 09/29/2019 Cellulitis and abscess of foot, except toes 10/200604/30/2009 Onychia and paronychia of toe 08/11/2006 Pain in joint, shoulder region 05/22/2006 0 04/30/2009 Sprain of neck 05/22/2006 04/30/2009 DUPUYTRENS CONTRACTURES 03/23/2006 04/30/19 10 Dermatophytosis of nail 09/04/2005 04/30/19 10 CARPAL TUNNEL BILATERRAL 08/08/2005 020 Nonspecific abnormal results of liver function s tudy 08/08/2005 04/30/2009 OVERWEIGHT 08/08/2005 04/30/2009 Ingrowing nail 03/20/2005 04/30/2009 Pain in limb 03/20/2005 04/30/2009 Allergic Rhinitis, Cause Unspecified 01/13/2005 06/25/2015 Coronary artery disease involving [place] coronar y artery 09/29/2019 Overview: Dr. Pederson follows regularly; S/P PTCA and stenting at [facility], [place], 2000 Last Assessment & Plan: Currently she has no chest pain or SOB. 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 0 09/29/2019 Diverticulosis of colon (without mention of hemo rrhage) 04/30/2009 External hemorrhoids without mention of complica tion 04/30/2009 Internal hemorrhoids without mention of complica tion 04/30/2009 documented as of this encounter (statuses as of 04/13/2022) [facility] History of Past illness Narrative* Problem Noted Date Resolved Date SHERLYN (acute kidney injury) 09/29/20192019 Last Assessment & Plan: Assessment: DKA induced with dehydration PLAN: Volume resuscitated, IVF now KVO Tolerating PO diet Monitor BUN/Cr for further changes DKA (diabetic ketoacidoses) 09/28/2019 07/0 04/2020 Last Assessment & Plan: 2/ 2 Insulin Pump malfunction. Hyperglycemia On admission with CBG > 600 and AG 26 - now resolved. PLAN: Endocrinology consulted AG closed, insulin infusion stopped- back on her insulin pump now Dc home with accucheck / home insulin pump therapy and fup recs Other dysphagia 07/18/2019 09/29/2019 Vertigo 08/12/2015 09/29/2019 BPPV (benign paroxysmal positional vertigo) 01/1909/29/2019 Vertigo 02/02/2013 06/25/2015 Thoracic or lumbosacral neuritis or radiculitis, unspecified 03/01/2012 09/29/2019 Abnormality of gait 03/01/2012 06/25/2015 Pain in joint, lower leg 01/21/2010 016 Routine general medical exam ination at a health care facility 04/30/2009 06/25/2015 Overview: 04/30/2009, establish from Dr. Givens 06/25/2010, yearly check-up (60 minutes) Routine gynecological examination 04/30/2009 06/25/2015 Overview: Dr[facility] Schmitz, [facility] [place] Tenosynovitis of foot and ankle 06/29/2008 04/30/2009 Acute bronchitis 05/18/2008 04/30/2009 Anemia, unspecified 12/04/2006 09/29/2019 Cellulitis and abscess of foot, except toes 10/200604/30/2009 Onychia and paronychia of toe 08/11/2006 Pain in joint, shoulder region 05/22/2006 0 04/30/2009 Sprain of neck 05/22/2006 04/30/2009 DUPUYTRENS CONTRACTURES 03/23/2006 04/30/19 10 Dermatophytosis of nail 09/04/2005 04/30/19 10 CARPAL TUNNEL BILATERRAL 08/08/2005 020 Nonspecific abnormal results of liver function s tudy 08/08/2005 04/30/2009 OVERWEIGHT 08/08/2005 04/30/2009 Ingrowing nail 03/20/2005 04/30/2009 Pain in limb 03/20/2005 04/30/2009 Allergic Rhinitis, Cause Unspecified 01/13/2005 06/25/2015 Coronary artery disease involving [place] coronar y artery 09/29/2019 Overview: Dr. Pederson follows regularly; S/P PTCA and stenting at [facility] [place], 2000 Last Assessment & Plan: Currently she has no chest pain or SOB. 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 0 09/29/2019 Diverticulosis of colon (without mention of hemo rrhage) 04/30/2009 External hemorrhoids without mention of complica tion 04/30/2009 Internal hemorrhoids without mention of complica tion 04/30/2009 documented as of this encounter (statuses as of 04/13/2022) [facility] History of Past illness Narrative* Problem Noted Date Resolved Date SHERLYN (acute kidney injury) 09/29/20192019 Last Assessment & Plan: Assessment: DKA induced with dehydration PLAN: Volume resuscitated, IVF now KVO Tolerating PO diet Monitor BUN/Cr for further changes DKA (diabetic ketoacidoses) 09/28/2019 07/0 04/2020 Last Assessment & Plan: 2/ 2 Insulin Pump malfunction. Hyperglycemia On admission with CBG > 600 and AG 26 - now resolved. PLAN: Endocrinology consulted AG closed, insulin infusion stopped- back on her insulin pump now Dc home with accucheck / home insulin pump therapy and fup recs Other dysphagia 07/18/2019 09/29/2019 Vertigo 08/12/2015 09/29/2019 BPPV (benign paroxysmal positional vertigo) 01/1909/29/2019 Vertigo 02/02/2013 06/25/2015 Thoracic or lumbosacral neuritis or radiculitis, unspecified 03/01/2012 09/29/2019 Abnormality of gait 03/01/2012 06/25/2015 Pain in joint, lower leg 01/21/2010 016 Routine general medical exam ination at a health care facility 04/30/2009 06/25/2015 Overview: 04/30/2009, establish from Dr. Givens 06/25/2010, yearly check-up (60 minutes) Routine gynecological examination 04/30/2009 06/25/2015 Overview: Dr. Schmitz, [facility], [facility] [place] Tenosynovitis of foot and ankle 06/29/2008 04/30/2009 Acute bronchitis 05/18/2008 04/30/2009 Anemia, unspecified 12/04/2006 09/29/2019 Cellulitis and abscess of foot, except toes 10/200604/30/2009 Onychia and paronychia of toe 08/11/2006 Pain in joint, shoulder region 05/22/2006 0 04/30/2009 Sprain of neck 05/22/2006 04/30/2009 DUPUYTRENS CONTRACTURES 03/23/2006 04/30/19 10 Dermatophytosis of nail 09/04/2005 04/30/19 10 CARPAL TUNNEL BILATERRAL 08/08/2005 020 Nonspecific abnormal results of liver function s tudy 08/08/2005 04/30/2009 OVERWEIGHT 08/08/2005 04/30/2009 Ingrowing nail 03/20/2005 04/30/2009 Pain in limb 03/20/2005 04/30/2009 Allergic Rhinitis, Cause Unspecified 01/13/2005 06/25/2015 Coronary artery disease involving [place] coronar y artery 09/29/2019 Overview: Dr. Pederson follows regularly; S/P PTCA and stenting at [facility], [place], 2000 Last Assessment & Plan: Currently she has no chest pain or SOB. 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 0 09/29/2019 Diverticulosis of colon (without mention of hemo rrhage) 04/30/2009 External hemorrhoids without mention of complica tion 04/30/2009 Internal hemorrhoids without mention of complica tion 04/30/2009 documented as of this encounter (statuses as of 04/23/2022) [facility] History of Past illness Narrative* Problem Noted Date Resolved Date SHERLYN (acute kidney injury) 09/29/20192019 Last Assessment & Plan: Assessment: DKA induced with dehydration PLAN: Volume resuscitated, IVF now KVO Tolerating PO diet Monitor BUN/Cr for further changes DKA (diabetic ketoacidoses) 09/28/2019 07/0 04/2020 Last Assessment & Plan: 2/ 2 Insulin Pump malfunction. Hyperglycemia On admission with CBG > 600 and AG 26 - now resolved. PLAN: Endocrinology consulted AG closed, insulin infusion stopped- back on her insulin pump now Dc home with accucheck / home insulin pump therapy and fup recs Other dysphagia 07/18/2019 09/29/2019 Vertigo 08/12/2015 09/29/2019 BPPV (benign paroxysmal positional vertigo) 01/1909/29/2019 Vertigo 02/02/2013 06/25/2015 Thoracic or lumbosacral neuritis or radiculitis, unspecified 03/01/2012 09/29/2019 Abnormality of gait 03/01/2012 06/25/2015 Pain in joint, lower leg 01/21/2010 016 Routine general medical exam ination at a health care facility 04/30/2009 06/25/2015 Overview: 04/30/2009, establish from Dr. Givens 06/25/2010, yearly check-up (60 minutes) Routine gynecological examination 04/30/2009 06/25/2015 Overview: Dr. Schmitz, [facility], [facility] [place] Tenosynovitis of foot and ankle 06/29/2008 04/30/2009 Acute bronchitis 05/18/2008 04/30/2009 Anemia, unspecified 12/04/2006 09/29/2019 Cellulitis and abscess of foot, except toes 10/200604/30/2009 Onychia and paronychia of toe 08/11/2006 Pain in joint, shoulder region 05/22/2006 0 04/30/2009 Sprain of neck 05/22/2006 04/30/2009 DUPUYTRENS CONTRACTURES 03/23/2006 04/30/19 10 Dermatophytosis of nail 09/04/2005 04/30/19 10 CARPAL TUNNEL BILATERRAL 08/08/2005 020 Nonspecific abnormal results of liver function s tudy 08/08/2005 04/30/2009 OVERWEIGHT 08/08/2005 04/30/2009 Ingrowing nail 03/20/2005 04/30/2009 Pain in limb 03/20/2005 04/30/2009 Allergic Rhinitis, Cause Unspecified 01/13/2005 06/25/2015 Coronary artery disease involving [place] coronar y artery 09/29/2019 Overview: Dr. Pederson follows regularly; S/P PTCA and stenting at [facility], [place], 2000 Last Assessment & Plan: Currently she has no chest pain or SOB. 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 0 09/29/2019 Diverticulosis of colon (without mention of hemo rrhage) 04/30/2009 External hemorrhoids without mention of complica tion 04/30/2009 Internal hemorrhoids without mention of complica tion 04/30/2009 documented as of this encounter (statuses as of 05/14/2022) [facility] History of Past illness Narrative* Problem Noted Date Resolved Date SHERLYN (acute kidney injury) 09/29/20192019 Last Assessment & Plan: Assessment: DKA induced with dehydration PLAN: Volume resuscitated, IVF now KVO Tolerating PO diet Monitor BUN/Cr for further changes DKA (diabetic ketoacidoses) 09/28/2019 07/0 04/2020 Last Assessment & Plan: 2/ 2 Insulin Pump malfunction. Hyperglycemia On admission with CBG > 600 and AG 26 - now resolved. PLAN: Endocrinology consulted AG closed, insulin infusion stopped- back on her insulin pump now Dc home with accucheck / home insulin pump therapy and fup recs Other dysphagia 07/18/2019 09/29/2019 Vertigo 08/12/2015 09/29/2019 BPPV (benign paroxysmal positional vertigo) 01/1909/29/2019 Vertigo 02/02/2013 06/25/2015 Thoracic or lumbosacral neuritis or radiculitis, unspecified 03/01/2012 09/29/2019 Abnormality of gait 03/01/2012 06/25/2015 Pain in joint, lower leg 01/21/2010 016 Routine general medical exam ination at a health care facility 04/30/2009 06/25/2015 Overview: 04/30/2009, establish from Dr. Givens 06/25/2010, yearly check-up (60 minutes) Routine gynecological examination 04/30/2009 06/25/2015 Overview: Dr. Schmitz, [facility], [facility] [place] Tenosynovitis of foot and ankle 06/29/2008 04/30/2009 Acute bronchitis 05/18/2008 04/30/2009 Anemia, unspecified 12/04/2006 09/29/2019 Cellulitis and abscess of foot, except toes 10/200604/30/2009 Onychia and paronychia of toe 08/11/2006 Pain in joint, shoulder region 05/22/2006 0 04/30/2009 Sprain of neck 05/22/2006 04/30/2009 DUPUYTRENS CONTRACTURES 03/23/2006 04/30/19 10 Dermatophytosis of nail 09/04/2005 04/30/19 10 CARPAL TUNNEL BILATERRAL 08/08/2005 020 Nonspecific abnormal results of liver function s tudy 08/08/2005 04/30/2009 OVERWEIGHT 08/08/2005 04/30/2009 Ingrowing nail 03/20/2005 04/30/2009 Pain in limb 03/20/2005 04/30/2009 Allergic Rhinitis, Cause Unspecified 01/13/2005 06/25/2015 Coronary artery disease involving [place] coronar y artery 09/29/2019 Overview: Dr. Pederson follows regularly; S/P PTCA and stenting at [facility], [place], 2000 Last Assessment & Plan: Currently she has no chest pain or SOB. 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 0 09/29/2019 Diverticulosis of colon (without mention of hemo rrhage) 04/30/2009 External hemorrhoids without mention of complica tion 04/30/2009 Internal hemorrhoids without mention of complica tion 04/30/2009 documented as of this encounter (statuses as of 05/23/2022) [facility] History of Past illness Narrative* Problem Noted Date Resolved Date SHERLYN (acute kidney injury) 09/29/20192019 Last Assessment & Plan: Assessment: DKA induced with dehydration PLAN: Volume resuscitated, IVF now KVO Tolerating PO diet Monitor BUN/Cr for further changes DKA (diabetic ketoacidoses) 09/28/2019 07/0 04/2020 Last Assessment & Plan: 2/ 2 Insulin Pump malfunction. Hyperglycemia On admission with CBG > 600 and AG 26 - now resolved. PLAN: Endocrinology consulted AG closed, insulin infusion stopped- back on her insulin pump now Dc home with accucheck / home insulin pump therapy and fup recs Other dysphagia 07/18/2019 09/29/2019 Vertigo 08/12/2015 09/29/2019 BPPV (benign paroxysmal positional vertigo) 01/1909/29/2019 Vertigo 02/02/2013 06/25/2015 Thoracic or lumbosacral neuritis or radiculitis, unspecified 03/01/2012 09/29/2019 Abnormality of gait 03/01/2012 06/25/2015 Pain in joint, lower leg 01/21/2010 016 Routine general medical exam ination at a health care facility 04/30/2009 06/25/2015 Overview: 04/30/2009, establish from Dr. Givens 06/25/2010, yearly check-up (60 minutes) Routine gynecological examination 04/30/2009 06/25/2015 Overview: Dr. Schmitz, [facility], [facility] [place] Tenosynovitis of foot and ankle 06/29/2008 04/30/2009 Acute bronchitis 05/18/2008 04/30/2009 Anemia, unspecified 12/04/2006 09/29/2019 Cellulitis and abscess of foot, except toes 10/200604/30/2009 Onychia and paronychia of toe 08/11/2006 Pain in joint, shoulder region 05/22/2006 0 04/30/2009 Sprain of neck 05/22/2006 04/30/2009 DUPUYTRENS CONTRACTURES 03/23/2006 04/30/19 10 Dermatophytosis of nail 09/04/2005 04/30/19 10 CARPAL TUNNEL BILATERRAL 08/08/2005 020 Nonspecific abnormal results of liver function s tudy 08/08/2005 04/30/2009 OVERWEIGHT 08/08/2005 04/30/2009 Ingrowing nail 03/20/2005 04/30/2009 Pain in limb 03/20/2005 04/30/2009 Allergic Rhinitis, Cause Unspecified 01/13/2005 06/25/2015 Coronary artery disease involving [place] coronar y artery 09/29/2019 Overview: Dr. Pederson follows regularly; S/P PTCA and stenting at [facility], [place], 2000 Last Assessment & Plan: Currently she has no chest pain or SOB. 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 0 09/29/2019 Diverticulosis of colon (without mention of hemo rrhage) 04/30/2009 External hemorrhoids without mention of complica tion 04/30/2009 Internal hemorrhoids without mention of complica tion 04/30/2009 documented as of this encounter (statuses as of 05/24/2022) [facility] History of Past illness Narrative* Problem Noted Date Resolved Date SHERLYN (acute kidney injury) 09/29/20192019 Last Assessment & Plan: Assessment: DKA induced with dehydration PLAN: Volume resuscitated, IVF now KVO Tolerating PO diet Monitor BUN/Cr for further changes DKA (diabetic ketoacidoses) 09/28/2019 07/0 04/2020 Last Assessment & Plan: 2/ 2 Insulin Pump malfunction. Hyperglycemia On admission with CBG > 600 and AG 26 - now resolved. PLAN: Endocrinology consulted AG closed, insulin infusion stopped- back on her insulin pump now Dc home with accucheck / home insulin pump therapy and fup recs Other dysphagia 07/18/2019 09/29/2019 Vertigo 08/12/2015 09/29/2019 BPPV (benign paroxysmal positional vertigo) 01/1909/29/2019 Vertigo 02/02/2013 06/25/2015 Thoracic or lumbosacral neuritis or radiculitis, unspecified 03/01/2012 09/29/2019 Abnormality of gait 03/01/2012 06/25/2015 Pain in joint, lower leg 01/21/2010 016 Routine general medical exam ination at a health care facility 04/30/2009 06/25/2015 Overview: 04/30/2009, establish from Dr. Givens 06/25/2010, yearly check-up (60 minutes) Routine gynecological examination 04/30/2009 06/25/2015 Overview: Dr. Schmitz, [facility], [facility] [place] Tenosynovitis of foot and ankle 06/29/2008 04/30/2009 Acute bronchitis 05/18/2008 04/30/2009 Anemia, unspecified 12/04/2006 09/29/2019 Cellulitis and abscess of foot, except toes 10/200604/30/2009 Onychia and paronychia of toe 08/11/2006 Pain in joint, shoulder region 05/22/2006 0 04/30/2009 Sprain of neck 05/22/2006 04/30/2009 DUPUYTRENS CONTRACTURES 03/23/2006 04/30/19 10 Dermatophytosis of nail 09/04/2005 04/30/19 10 CARPAL TUNNEL BILATERRAL 08/08/2005 020 Nonspecific abnormal results of liver function s tudy 08/08/2005 04/30/2009 OVERWEIGHT 08/08/2005 04/30/2009 Ingrowing nail 03/20/2005 04/30/2009 Pain in limb 03/20/2005 04/30/2009 Allergic Rhinitis, Cause Unspecified 01/13/2005 06/25/2015 Coronary artery disease involving [place] coronar y artery 09/29/2019 Overview: Dr. Pederson follows regularly; S/P PTCA and stenting at [facility], [place], 2000 Last Assessment & Plan: Currently she has no chest pain or SOB. 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 0 09/29/2019 Diverticulosis of colon (without mention of hemo rrhage) 04/30/2009 External hemorrhoids without mention of complica tion 04/30/2009 Internal hemorrhoids without mention of complica tion 04/30/2009 documented as of this encounter (statuses as of 05/24/2022) [facility] History of Past illness Narrative* Problem Noted Date Resolved Date SHERLYN (acute kidney injury) 09/29/20192019 Last Assessment & Plan: Assessment: DKA induced with dehydration PLAN: Volume resuscitated, IVF now KVO Tolerating PO diet Monitor BUN/Cr for further changes DKA (diabetic ketoacidoses) 09/28/2019 07/0 04/2020 Last Assessment & Plan: 2/ 2 Insulin Pump malfunction. Hyperglycemia On admission with CBG > 600 and AG 26 - now resolved. PLAN: Endocrinology consulted AG closed, insulin infusion stopped- back on her insulin pump now Dc home with accucheck / home insulin pump therapy and fup recs Other dysphagia 07/18/2019 09/29/2019 Vertigo 08/12/2015 09/29/2019 BPPV (benign paroxysmal positional vertigo) 01/1909/29/2019 Vertigo 02/02/2013 06/25/2015 Thoracic or lumbosacral neuritis or radiculitis, unspecified 03/01/2012 09/29/2019 Abnormality of gait 03/01/2012 06/25/2015 Pain in joint, lower leg 01/21/2010 016 Routine general medical exam ination at a health care facility 04/30/2009 06/25/2015 Overview: 04/30/2009, establish from Dr. Givens 06/25/2010, yearly check-up (60 minutes) Routine gynecological examination 04/30/2009 06/25/2015 Overview: Dr[facility] Schmitz, [facility], [facility] [place] Tenosynovitis of foot and ankle 06/29/2008 04/30/2009 Acute bronchitis 05/18/2008 04/30/2009 Anemia, unspecified 12/04/2006 09/29/2019 Cellulitis and abscess of foot, except toes 10/200604/30/2009 Onychia and paronychia of toe 08/11/2006 Pain in joint, shoulder region 05/22/2006 0 04/30/2009 Sprain of neck 05/22/2006 04/30/2009 DUPUYTRENS CONTRACTURES 03/23/2006 04/30/19 10 Dermatophytosis of nail 09/04/2005 04/30/19 10 CARPAL TUNNEL BILATERRAL 08/08/2005 020 Nonspecific abnormal results of liver function s tudy 08/08/2005 04/30/2009 OVERWEIGHT 08/08/2005 04/30/2009 Ingrowing nail 03/20/2005 04/30/2009 Pain in limb 03/20/2005 04/30/2009 Allergic Rhinitis, Cause Unspecified 01/13/2005 06/25/2015 Coronary artery disease involving [place] coronar y artery 09/29/2019 Overview: Dr. Pederson follows regularly; S/P PTCA and stenting at [facility], [place], 2000 Last Assessment & Plan: Currently she has no chest pain or SOB. 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 0 09/29/2019 Diverticulosis of colon (without mention of hemo rrhage) 04/30/2009 External hemorrhoids without mention of complica tion 04/30/2009 Internal hemorrhoids without mention of complica tion 04/30/2009 documented as of this encounter (statuses as of 05/29/2022) [facility] History of Past illness Narrative* Problem Noted Date Resolved Date SHERLYN (acute kidney injury) 09/29/20192019 Last Assessment & Plan: Assessment: DKA induced with dehydration PLAN: Volume resuscitated, IVF now KVO Tolerating PO diet Monitor BUN/Cr for further changes DKA (diabetic ketoacidoses) 09/28/2019 07/0 04/2020 Last Assessment & Plan: 2/ 2 Insulin Pump malfunction. Hyperglycemia On admission with CBG > 600 and AG 26 - now resolved. PLAN: Endocrinology consulted AG closed, insulin infusion stopped- back on her insulin pump now Dc home with accucheck / home insulin pump therapy and fup recs Other dysphagia 07/18/2019 09/29/2019 Vertigo 08/12/2015 09/29/2019 BPPV (benign paroxysmal positional vertigo) 01/1909/29/2019 Vertigo 02/02/2013 06/25/2015 Thoracic or lumbosacral neuritis or radiculitis, unspecified 03/01/2012 09/29/2019 Abnormality of gait 03/01/2012 06/25/2015 Pain in joint, lower leg 01/21/2010 016 Routine general medical exam ination at a health care facility 04/30/2009 06/25/2015 Overview: 04/30/2009, establish from Dr. Givens 06/25/2010, yearly check-up (60 minutes) Routine gynecological examination 04/30/2009 06/25/2015 Overview: Dr. Schmitz, [facility], [facility] [place] Tenosynovitis of foot and ankle 06/29/2008 04/30/2009 Acute bronchitis 05/18/2008 04/30/2009 Anemia, unspecified 12/04/2006 09/29/2019 Cellulitis and abscess of foot, except toes 10/200604/30/2009 Onychia and paronychia of toe 08/11/2006 Pain in joint, shoulder region 05/22/2006 0 04/30/2009 Sprain of neck 05/22/2006 04/30/2009 DUPUYTRENS CONTRACTURES 03/23/2006 04/30/19 10 Dermatophytosis of nail 09/04/2005 04/30/19 10 CARPAL TUNNEL BILATERRAL 08/08/2005 020 Nonspecific abnormal results of liver function s tudy 08/08/2005 04/30/2009 OVERWEIGHT 08/08/2005 04/30/2009 Ingrowing nail 03/20/2005 04/30/2009 Pain in limb 03/20/2005 04/30/2009 Allergic Rhinitis, Cause Unspecified 01/13/2005 06/25/2015 Coronary artery disease involving [place] coronar y artery 09/29/2019 Overview: Dr. Pederson follows regularly; S/P PTCA and stenting at [facility], [place], 2001 Last Assessment & Plan: Currently she has no chest pain or SOB. 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 0 09/29/2019 Diverticulosis of colon (without mention of hemo rrhage) 04/30/2009 External hemorrhoids without mention of complica tion 04/30/2009 Internal hemorrhoids without mention of complica tion 04/30/2009 documented as of this encounter (statuses as of 06/04/2022) [facility] History of Past illness Narrative* Problem Noted Date Resolved Date SHERLYN (acute kidney injury) 09/29/20192019 Last Assessment & Plan: Assessment: DKA induced with dehydration PLAN: Volume resuscitated, IVF now KVO Tolerating PO diet Monitor BUN/Cr for further changes DKA (diabetic ketoacidoses) 09/28/2019 07/0 04/2020 Last Assessment & Plan: 2/ 2 Insulin Pump malfunction. Hyperglycemia On admission with CBG > 600 and AG 26 - now resolved. PLAN: Endocrinology consulted AG closed, insulin infusion stopped- back on her insulin pump now Dc home with accucheck / home insulin pump therapy and fup recs Other dysphagia 07/18/2019 09/29/2019 Vertigo 08/12/2015 09/29/2019 BPPV (benign paroxysmal positional vertigo) 01/1909/29/2019 Vertigo 02/02/2013 06/25/2015 Thoracic or lumbosacral neuritis or radiculitis, unspecified 03/01/2012 09/29/2019 Abnormality of gait 03/01/2012 06/25/2015 Pain in joint, lower leg 01/21/2010 016 Routine general medical exam ination at a health care facility 04/30/2009 06/25/2015 Overview: 04/30/2009, establish from Dr. Givens 06/25/2010, yearly check-up (60 minutes) Routine gynecological examination 04/30/2009 06/25/2015 Overview: Dr. Schmitz, [facility] [place] Tenosynovitis of foot and ankle 06/29/2008 04/30/2009 Acute bronchitis 05/18/2008 04/30/2009 Anemia, unspecified 12/04/2006 09/29/2019 Cellulitis and abscess of foot, except toes 10/200604/30/2009 Onychia and paronychia of toe 08/11/2006 Pain in joint, shoulder region 05/22/2006 0 04/30/2009 Sprain of neck 05/22/2006 04/30/2009 DUPUYTRENS CONTRACTURES 03/23/2006 04/30/19 10 Dermatophytosis of nail 09/04/2005 04/30/19 10 CARPAL TUNNEL BILATERRAL 08/08/2005 020 Nonspecific abnormal results of liver function s tudy 08/08/2005 04/30/2009 OVERWEIGHT 08/08/2005 04/30/2009 Ingrowing nail 03/20/2005 04/30/2009 Pain in limb 03/20/2005 04/30/2009 Allergic Rhinitis, Cause Unspecified 01/13/2005 06/25/2015 Coronary artery disease involving [place] coronar y artery 09/29/2019 Overview: Dr. Pederson follows regularly; S/P PTCA and stenting at [facility], [place], 2000 Last Assessment & Plan: Currently she has no chest pain or SOB. 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 0 09/29/2019 Diverticulosis of colon (without mention of hemo rrhage) 04/30/2009 External hemorrhoids without mention of complica tion 04/30/2009 Internal hemorrhoids without mention of complica tion 04/30/2009 documented as of this encounter (statuses as of 06/04/2022) [facility] History of Past illness Narrative* Problem Noted Date Resolved Date SHERLYN (acute kidney injury) 09/29/20192019 Last Assessment & Plan: Assessment: DKA induced with dehydration PLAN: Volume resuscitated, IVF now KVO Tolerating PO diet Monitor BUN/Cr for further changes DKA (diabetic ketoacidoses) 09/28/2019 07/0 04/2020 Last Assessment & Plan: 2/ 2 Insulin Pump malfunction. Hyperglycemia On admission with CBG > 600 and AG 26 - now resolved. PLAN: Endocrinology consulted AG closed, insulin infusion stopped- back on her insulin pump now Dc home with accucheck / home insulin pump therapy and fup recs Other dysphagia 07/18/2019 09/29/2019 Vertigo 08/12/2015 09/29/2019 BPPV (benign paroxysmal positional vertigo) 01/1909/29/2019 Vertigo 02/02/2013 06/25/2015 Thoracic or lumbosacral neuritis or radiculitis, unspecified 03/01/2012 09/29/2019 Abnormality of gait 03/01/2012 06/25/2015 Pain in joint, lower leg 01/21/2010 016 Routine general medical exam ination at a health care facility 04/30/2009 06/25/2015 Overview: 04/30/2009, establish from Dr. Givens 06/25/2010, yearly check-up (60 minutes) Routine gynecological examination 04/30/2009 06/25/2015 Overview: [facility] Schmitz, [facility] [place] Tenosynovitis of foot and ankle 06/29/2008 04/30/2009 Acute bronchitis 05/18/2008 04/30/2009 Anemia, unspecified 12/04/2006 09/29/2019 Cellulitis and abscess of foot, except toes 10/200604/30/2009 Onychia and paronychia of toe 08/11/2006 Pain in joint, shoulder region 05/22/2006 0 04/30/2009 Sprain of neck 05/22/2006 04/30/2009 DUPUYTRENS CONTRACTURES 03/23/2006 04/30/19 10 Dermatophytosis of nail 09/04/2005 04/30/19 10 CARPAL TUNNEL BILATERRAL 08/08/2005 020 Nonspecific abnormal results of liver function s tudy 08/08/2005 04/30/2009 OVERWEIGHT 08/08/2005 04/30/2009 Ingrowing nail 03/20/2005 04/30/2009 Pain in limb 03/20/2005 04/30/2009 Allergic Rhinitis, Cause Unspecified 01/13/2005 06/25/2015 Coronary artery disease involving [place] coronar y artery 09/29/2019 Overview: Dr. Pederson follows regularly; S/P PTCA and stenting at [facility], [place], 2000 Last Assessment & Plan: Currently she has no chest pain or SOB. 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 0 09/29/2019 Diverticulosis of colon (without mention of hemo rrhage) 04/30/2009 External hemorrhoids without mention of complica tion 04/30/2009 Internal hemorrhoids without mention of complica tion 04/30/2009 documented as of this encounter (statuses as of 06/04/2022) [facility] History of Past illness Narrative* Problem Noted Date Resolved Date SHERLYN (acute kidney injury) 09/29/20192019 Last Assessment & Plan: Assessment: DKA induced with dehydration PLAN: Volume resuscitated, IVF now KVO Tolerating PO diet Monitor BUN/Cr for further changes DKA (diabetic ketoacidoses) 09/28/2019 07/0 04/2020 Last Assessment & Plan: 2/ 2 Insulin Pump malfunction. Hyperglycemia On admission with CBG > 600 and AG 26 - now resolved. PLAN: Endocrinology consulted AG closed, insulin infusion stopped- back on her insulin pump now Dc home with accucheck / home insulin pump therapy and fup recs Other dysphagia 07/18/2019 09/29/2019 Vertigo 08/12/2015 09/29/2019 BPPV (benign paroxysmal positional vertigo) 01/1909/29/2019 Vertigo 02/02/2013 06/25/2015 Thoracic or lumbosacral neuritis or radiculitis, unspecified 03/01/2012 09/29/2019 Abnormality of gait 03/01/2012 06/25/2015 Pain in joint, lower leg 01/21/2010 016 Routine general medical exam ination at a health care facility 04/30/2009 06/25/2015 Overview: 04/30/2009, establish from Dr. Givens 06/25/2010, yearly check-up (60 minutes) Routine gynecological examination 04/30/2009 06/25/2015 Overview: Dr. Schmitz, [facility] [place] Tenosynovitis of foot and ankle 06/29/2008 04/30/2009 Acute bronchitis 05/18/2008 04/30/2009 Anemia, unspecified 12/04/2006 09/29/2019 Cellulitis and abscess of foot, except toes 10/200604/30/2009 Onychia and paronychia of toe 08/11/2006 Pain in joint, shoulder region 05/22/2006 0 04/30/2009 Sprain of neck 05/22/2006 04/30/2009 DUPUYTRENS CONTRACTURES 03/23/2006 04/30/19 10 Dermatophytosis of nail 09/04/2005 04/30/19 10 CARPAL TUNNEL BILATERRAL 08/08/2005 020 Nonspecific abnormal results of liver function s tudy 08/08/2005 04/30/2009 OVERWEIGHT 08/08/2005 04/30/2009 Ingrowing nail 03/20/2005 04/30/2009 Pain in limb 03/20/2005 04/30/2009 Allergic Rhinitis, Cause Unspecified 01/13/2005 06/25/2015 Coronary artery disease involving [place] coronar y artery 09/29/2019 Overview: Dr. Pederson follows regularly; S/P PTCA and stenting at [facility], [place], 2000 Last Assessment & Plan: Currently she has no chest pain or SOB. 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 0 09/29/2019 Diverticulosis of colon (without mention of hemo rrhage) 04/30/2009 External hemorrhoids without mention of complica tion 04/30/2009 Internal hemorrhoids without mention of complica tion 04/30/2009 documented as of this encounter (statuses as of 06/11/2022) [facility] History of Past illness Narrative* Problem Noted Date Resolved Date SHERLYN (acute kidney injury) 09/29/20192019 Last Assessment & Plan: Assessment: DKA induced with dehydration PLAN: Volume resuscitated, IVF now KVO Tolerating PO diet Monitor BUN/Cr for further changes DKA (diabetic ketoacidoses) 09/28/2019 07/0 04/2020 Last Assessment & Plan: 2/ 2 Insulin Pump malfunction. Hyperglycemia On admission with CBG > 600 and AG 26 - now resolved. PLAN: Endocrinology consulted AG closed, insulin infusion stopped- back on her insulin pump now Dc home with accucheck / home insulin pump therapy and fup recs Other dysphagia 07/18/2019 09/29/2019 Vertigo 08/12/2015 09/29/2019 BPPV (benign paroxysmal positional vertigo) 01/1909/29/2019 Vertigo 02/02/2013 06/25/2015 Thoracic or lumbosacral neuritis or radiculitis, unspecified 03/01/2012 09/29/2019 Abnormality of gait 03/01/2012 06/25/2015 Pain in joint, lower leg 01/21/2010 016 Routine general medical exam ination at a health care facility 04/30/2009 06/25/2015 Overview: 04/30/2009, establish from Dr. Givens 06/25/2010, yearly check-up (60 minutes) Routine gynecological examination 04/30/2009 06/25/2015 Overview: Dr[facility] Schmitz, [facility], [facility] [place] Tenosynovitis of foot and ankle 06/29/2008 04/30/2009 Acute bronchitis 05/18/2008 04/30/2009 Anemia, unspecified 12/04/2006 09/29/2019 Cellulitis and abscess of foot, except toes 10/200604/30/2009 Onychia and paronychia of toe 08/11/2006 Pain in joint, shoulder region 05/22/2006 0 04/30/2009 Sprain of neck 05/22/2006 04/30/2009 DUPUYTRENS CONTRACTURES 03/23/2006 04/30/19 10 Dermatophytosis of nail 09/04/2005 04/30/19 10 CARPAL TUNNEL BILATERRAL 08/08/2005 020 Nonspecific abnormal results of liver function s tudy 08/08/2005 04/30/2009 OVERWEIGHT 08/08/2005 04/30/2009 Ingrowing nail 03/20/2005 04/30/2009 Pain in limb 03/20/2005 04/30/2009 Allergic Rhinitis, Cause Unspecified 01/13/2005 06/25/2015 Coronary artery disease involving [place] coronar y artery 09/29/2019 Overview: Dr. Pederson follows regularly; S/P PTCA and stenting at [facility], [place], 2000 Last Assessment & Plan: Currently she has no chest pain or SOB. 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 0 09/29/2019 Diverticulosis of colon (without mention of hemo rrhage) 04/30/2009 External hemorrhoids without mention of complica tion 04/30/2009 Internal hemorrhoids without mention of complica tion 04/30/2009 documented as of this encounter (statuses as of 06/17/2022) [facility] History of Past illness Narrative* Problem Noted Date Resolved Date SHERLYN (acute kidney injury) 09/29/20192019 Last Assessment & Plan: Assessment: DKA induced with dehydration PLAN: Volume resuscitated, IVF now KVO Tolerating PO diet Monitor BUN/Cr for further changes DKA (diabetic ketoacidoses) 09/28/2019 070 04/2020 Last Assessment & Plan: 2/ 2 Insulin Pump malfunction. Hyperglycemia On admission with CBG > 600 and AG 26 - now resolved. PLAN: Endocrinology consulted AG closed, insulin infusion stopped- back on her insulin pump now Dc home with accucheck / home insulin pump therapy and fup recs Other dysphagia 07/18/2019 09/29/2019 Vertigo 08/12/2015 09/29/2019 BPPV (benign paroxysmal positional vertigo) 01/1909/29/2019 Vertigo 02/02/2013 06/25/2015 Thoracic or lumbosacral neuritis or radiculitis, unspecified 03/01/2012 09/29/2019 Abnormality of gait 03/01/2012 06/25/2015 Pain in joint, lower leg 01/21/2010 016 Routine general medical exam ination at a health care facility 04/30/2009 06/25/2015 Overview: 04/30/2009, establish from Dr. Givens 06/25/2010, yearly check-up (60 minutes) Routine gynecological examination 04/30/2009 06/25/2015 Overview: Dr. Schmitz, [facility], [facility] Tenosynovitis of foot and ankle 06/29/2008 04/30/2009 Acute bronchitis 05/18/2008 04/30/2009 Anemia, unspecified 12/04/2006 09/29/2019 Cellulitis and abscess of foot, except toes 10/200604/30/2009 Onychia and paronychia of toe 08/11/2006 Pain in joint, shoulder region 05/22/2006 0 04/30/2009 Sprain of neck 05/22/2006 04/30/2009 DUPUYTRENS CONTRACTURES 03/23/2006 04/30/19 10 Dermatophytosis of nail 09/04/2005 04/30/19 10 CARPAL TUNNEL BILATERRAL 08/08/2005 06/11/2 020 Nonspecific abnormal results of liver function s tudy 08/08/2005 04/30/2009 OVERWEIGHT 08/08/2005 04/30/2009 Ingrowing nail 03/20/2005 04/30/2009 Pain in limb 03/20/2005 04/30/2009 Allergic Rhinitis, Cause Unspecified 01/13/2005 06/25/2015 Coronary artery disease involving [place] coronar y artery 09/29/2019 Overview: Dr. Pederson follows regularly; S/P PTCA and stenting at [facility], [place], 2000 Last Assessment & Plan: Currently she has no chest pain or SOB. 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 0 09/29/2019 Diverticulosis of colon (without mention of hemo rrhage) 04/30/2009 External hemorrhoids without mention of complica tion 04/30/2009 Internal hemorrhoids without mention of complica tion 04/30/2009 documented as of this encounter (statuses as of 06/20/2022) [facility] History of Past illness Narrative* Problem Noted Date Resolved Date SHERLYN (acute kidney injury) 09/29/20192019 Last Assessment & Plan: Assessment: DKA induced with dehydration PLAN: Volume resuscitated, IVF now KVO Tolerating PO diet Monitor BUN/Cr for further changes DKA (diabetic ketoacidoses) 09/28/2019 07/0 04/2020 Last Assessment & Plan: 2/ 2 Insulin Pump malfunction. Hyperglycemia On admission with CBG > 600 and AG 26 - now resolved. PLAN: Endocrinology consulted AG closed, insulin infusion stopped- back on her insulin pump now Dc home with accucheck / home insulin pump therapy and fup recs Other dysphagia 07/18/2019 09/29/2019 Vertigo 08/12/2015 09/29/2019 BPPV (benign paroxysmal positional vertigo) 01/1909/29/2019 Vertigo 02/02/2013 06/25/2015 Thoracic or lumbosacral neuritis or radiculitis, unspecified 03/01/2012 09/29/2019 Abnormality of gait 03/01/2012 06/25/2015 Pain in joint, lower leg 01/21/2010 016 Routine general medical exam ination at a health care facility 04/30/2009 06/25/2015 Overview: 04/30/2009, establish from Dr. Givens 06/25/2010, yearly check-up (60 minutes) Routine gynecological examination 04/30/2009 06/25/2015 Overview: Dr[facility] Schmitz, [facility], [facility] [place] Tenosynovitis of foot and ankle 06/29/2008 04/30/2009 Acute bronchitis 05/18/2008 04/30/2009 Anemia, unspecified 12/04/2006 09/29/2019 Cellulitis and abscess of foot, except toes 10/200604/30/2009 Onychia and paronychia of toe 08/11/2006 Pain in joint, shoulder region 05/22/2006 0 04/30/2009 Sprain of neck 05/22/2006 04/30/2009 DUPUYTRENS CONTRACTURES 03/23/2006 04/30/19 10 Dermatophytosis of nail 09/04/2005 04/30/19 10 CARPAL TUNNEL BILATERRAL 08/08/2005 020 Nonspecific abnormal results of liver function s tudy 08/08/2005 04/30/2009 OVERWEIGHT 08/08/2005 04/30/2009 Ingrowing nail 03/20/2005 04/30/2009 Pain in limb 03/20/2005 04/30/2009 Allergic Rhinitis, Cause Unspecified 01/13/2005 06/25/2015 Coronary artery disease involving [place] coronar y artery 09/29/2019 Overview: Dr. Pederson follows regularly; S/P PTCA and stenting at [facility], [place], 2001 Last Assessment & Plan: Currently she has no chest pain or SOB. 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 0 09/29/2019 Diverticulosis of colon (without mention of hemo rrhage) 04/30/2009 External hemorrhoids without mention of complica tion 04/30/2009 Internal hemorrhoids without mention of complica tion 04/30/2009 documented as of this encounter (statuses as of 06/26/2022) [facility] History of Past illness Narrative* Problem Noted Date Resolved Date SHERLYN (acute kidney injury) 09/29/20192019 Last Assessment & Plan: Assessment: DKA induced with dehydration PLAN: Volume resuscitated, IVF now KVO Tolerating PO diet Monitor BUN/Cr for further changes DKA (diabetic ketoacidoses) 09/28/2019 07/0 04/2020 Last Assessment & Plan: 2/ 2 Insulin Pump malfunction. Hyperglycemia On admission with CBG > 600 and AG 26 - now resolved. PLAN: Endocrinology consulted AG closed, insulin infusion stopped- back on her insulin pump now Dc home with accucheck / home insulin pump therapy and fup recs Other dysphagia 07/18/2019 09/29/2019 Vertigo 08/12/2015 09/29/2019 BPPV (benign paroxysmal positional vertigo) 01/1909/29/2019 Vertigo 02/02/2013 06/25/2015 Thoracic or lumbosacral neuritis or radiculitis, unspecified 03/01/2012 09/29/2019 Abnormality of gait 03/01/2012 06/25/2015 Pain in joint, lower leg 01/21/2010 016 Routine general medical exam ination at a health care facility 04/30/2009 06/25/2015 Overview: 04/30/2009, establish from Dr. Givens 06/25/2010, yearly check-up (60 minutes) Routine gynecological examination 04/30/2009 06/25/2015 Overview: Dr[facility] Schmitz, [facility], [facility] [place] Tenosynovitis of foot and ankle 06/29/2008 04/30/2009 Acute bronchitis 05/18/2008 04/30/2009 Anemia, unspecified 12/04/2006 09/29/2019 Cellulitis and abscess of foot, except toes 10/200604/30/2009 Onychia and paronychia of toe 08/11/2006 Pain in joint, shoulder region 05/22/2006 0 04/30/2009 Sprain of neck 05/22/2006 04/30/2009 DUPUYTRENS CONTRACTURES 03/23/2006 04/30/19 10 Dermatophytosis of nail 09/04/2005 04/30/19 10 CARPAL TUNNEL BILATERRAL 08/08/2005 020 Nonspecific abnormal results of liver function s tudy 08/08/2005 04/30/2009 OVERWEIGHT 08/08/2005 04/30/2009 Ingrowing nail 03/20/2005 04/30/2009 Pain in limb 03/20/2005 04/30/2009 Allergic Rhinitis, Cause Unspecified 01/13/2005 06/25/2015 Coronary artery disease involving [place] coronar y artery 09/29/2019 Overview: Dr. Pederson follows regularly; S/P PTCA and stenting at [facility], [place], 2001 Last Assessment & Plan: Currently she has no chest pain or SOB. 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 0 09/29/2019 Diverticulosis of colon (without mention of hemo rrhage) 04/30/2009 External hemorrhoids without mention of complica tion 04/30/2009 Internal hemorrhoids without mention of complica tion 04/30/2009 documented as of this encounter (statuses as of 07/09/2022) [facility] History of Past illness Narrative* Problem Noted Date Resolved Date SHERLYN (acute kidney injury) 09/29/20192019 Last Assessment & Plan: Assessment: DKA induced with dehydration PLAN: Volume resuscitated, IVF now KVO Tolerating PO diet Monitor BUN/Cr for further changes DKA (diabetic ketoacidoses) 09/28/2019 07/0 04/2020 Last Assessment & Plan: / Insulin Pump malfunction. Hyperglycemia On admission with CBG > 600 and AG 26 - now resolved. PLAN: Endocrinology consulted AG closed, insulin infusion stopped- back on her insulin pump now Dc home with accucheck / home insulin pump therapy and fup recs Other dysphagia 07/18/2019 09/29/2019 Vertigo 08/12/2015 09/29/2019 BPPV (benign paroxysmal positional vertigo) 01/1909/29/2019 Vertigo 02/02/2013 06/25/2015 Thoracic or lumbosacral neuritis or radiculitis, unspecified 03/01/2012 09/29/2019 Abnormality of gait 03/01/2012 06/25/2015 Pain in joint, lower leg 01/21/2010 016 Routine general medical exam ination at a health care facility 04/30/2009 06/25/2015 Overview: 04/30/2009, establish from Dr. Givens 06/25/2010, yearly check-up (60 minutes) Routine gynecological examination 04/30/2009 06/25/2015 Overview: Dr[facility] Schmitz, [facility], [facility] [place] Tenosynovitis of foot and ankle 06/29/2008 04/30/2009 Acute bronchitis 05/18/2008 04/30/2009 Anemia, unspecified 12/04/2006 09/29/2019 Cellulitis and abscess of foot, except toes 10/200604/30/2009 Onychia and paronychia of toe 08/11/2006 Pain in joint, shoulder region 05/22/2006 0 04/30/2009 Sprain of neck 05/22/2006 04/30/2009 DUPUYTRENS CONTRACTURES 03/23/2006 04/30/19 10 Dermatophytosis of nail 09/04/2005 04/30/19 10 CARPAL TUNNEL BILATERRAL 08/08/2005 020 Nonspecific abnormal results of liver function s tudy 08/08/2005 04/30/2009 OVERWEIGHT 08/08/2005 04/30/2009 Ingrowing nail 03/20/2005 04/30/2009 Pain in limb 03/20/2005 04/30/2009 Allergic Rhinitis, Cause Unspecified 01/13/2005 06/25/2015 Coronary artery disease involving [place] coronar y artery 09/29/2019 Overview: Dr. Pederson follows regularly; S/P PTCA and stenting at [facility], [place], 2000 Last Assessment & Plan: Currently she has no chest pain or SOB. 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 0 09/29/2019 Diverticulosis of colon (without mention of hemo rrhage) 04/30/2009 External hemorrhoids without mention of complica tion 04/30/2009 Internal hemorrhoids without mention of complica tion 04/30/2009 documented as of this encounter (statuses as of 07/11/2022) [facility] History of Past illness Narrative* Problem Noted Date Resolved Date SHERLYN (acute kidney injury) 09/29/20192019 Last Assessment & Plan: Assessment: DKA induced with dehydration PLAN: Volume resuscitated, IVF now KVO Tolerating PO diet Monitor BUN/Cr for further changes DKA (diabetic ketoacidoses) 09/28/2019 07/0 04/2020 Last Assessment & Plan: 2/ Insulin Pump malfunction. Hyperglycemia On admission with CBG > 600 and AG 26 - now resolved. PLAN: Endocrinology consulted AG closed, insulin infusion stopped- back on her insulin pump now Dc home with accucheck / home insulin pump therapy and fup recs Other dysphagia 07/18/2019 09/29/2019 Vertigo 08/12/2015 09/29/2019 BPPV (benign paroxysmal positional vertigo) 01/1909/29/2019 Vertigo 02/02/2013 06/25/2015 Thoracic or lumbosacral neuritis or radiculitis, unspecified 03/01/2012 09/29/2019 Abnormality of gait 03/01/2012 06/25/2015 Pain in joint, lower leg 01/21/2010 016 Routine general medical exam ination at a health care facility 04/30/2009 06/25/2015 Overview: 04/30/2009, establish from Dr. Givens 06/25/2010, yearly check-up (60 minutes) Routine gynecological examination 04/30/2009 06/25/2015 Overview: [facility] Schmitz, [facility], [facility] [place] Tenosynovitis of foot and ankle 06/29/2008 04/30/2009 Acute bronchitis 05/18/2008 04/30/2009 Anemia, unspecified 12/04/2006 09/29/2019 Cellulitis and abscess of foot, except toes 10/200604/30/2009 Onychia and paronychia of toe 08/11/2006 Pain in joint, shoulder region 05/22/2006 0 04/30/2009 Sprain of neck 05/22/2006 04/30/2009 DUPUYTRENS CONTRACTURES 03/23/2006 04/30/19 10 Dermatophytosis of nail 09/04/2005 04/30/19 10 CARPAL TUNNEL BILATERRAL 08/08/2005 020 Nonspecific abnormal results of liver function s tudy 08/08/2005 04/30/2009 OVERWEIGHT 08/08/2005 04/30/2009 Ingrowing nail 03/20/2005 04/30/2009 Pain in limb 03/20/2005 04/30/2009 Allergic Rhinitis, Cause Unspecified 01/13/2005 06/25/2015 Coronary artery disease involving [place] coronar y artery 09/29/2019 Overview: Dr. Pederson follows regularly; S/P PTCA and stenting at [facility], [place], 2000 Last Assessment & Plan: Currently she has no chest pain or SOB. 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 0 09/29/2019 Diverticulosis of colon (without mention of hemo rrhage) 04/30/2009 External hemorrhoids without mention of complica tion 04/30/2009 Internal hemorrhoids without mention of complica tion 04/30/2009 documented as of this encounter (statuses as of 07/17/2022) [facility] History of Past illness Narrative* Problem Noted Date Resolved Date SHERLYN (acute kidney injury) 09/29/20192019 Last Assessment & Plan: Assessment: DKA induced with dehydration PLAN: Volume resuscitated, IVF now KVO Tolerating PO diet Monitor BUN/Cr for further changes DKA (diabetic ketoacidoses) 09/28/2019 07/0 04/2020 Last Assessment & Plan: 2/ 2 Insulin Pump malfunction. Hyperglycemia On admission with CBG > 600 and AG 26 - now resolved. PLAN: Endocrinology consulted AG closed, insulin infusion stopped- back on her insulin pump now Dc home with accucheck / home insulin pump therapy and fup recs Other dysphagia 07/18/2019 09/29/2019 Vertigo 08/12/2015 09/29/2019 BPPV (benign paroxysmal positional vertigo) 01/1909/29/2019 Vertigo 02/02/2013 06/25/2015 Thoracic or lumbosacral neuritis or radiculitis, unspecified 03/01/2012 09/29/2019 Abnormality of gait 03/01/2012 06/25/2015 Pain in joint, lower leg 01/21/2010 016 Routine general medical exam ination at a health care facility 04/30/2009 06/25/2015 Overview: 04/30/2009, establish from Dr. Givens 06/25/2010, yearly check-up (60 minutes) Routine gynecological examination 04/30/2009 06/25/2015 Overview: [facility] Schmitz, [facility] [place] Tenosynovitis of foot and ankle 06/29/2008 04/30/2009 Acute bronchitis 05/18/2008 04/30/2009 Anemia, unspecified 12/04/2006 09/29/2019 Cellulitis and abscess of foot, except toes 10/200604/30/2009 Onychia and paronychia of toe 08/11/2006 Pain in joint, shoulder region 05/22/2006 0 04/30/2009 Sprain of neck 05/22/2006 04/30/2009 DUPUYTRENS CONTRACTURES 03/23/2006 04/30/19 10 Dermatophytosis of nail 09/04/2005 04/30/19 10 CARPAL TUNNEL BILATERRAL 08/08/2005 020 Nonspecific abnormal results of liver function s tudy 08/08/2005 04/30/2009 OVERWEIGHT 08/08/2005 04/30/2009 Ingrowing nail 03/20/2005 04/30/2009 Pain in limb 03/20/2005 04/30/2009 Allergic Rhinitis, Cause Unspecified 01/13/2005 06/25/2015 Coronary artery disease involving [place] coronar y artery 09/29/2019 Overview: Dr. Pederson follows regularly; S/P PTCA and stenting at [facility], [place], 2000 Last Assessment & Plan: Currently she has no chest pain or SOB. 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 0 09/29/2019 Diverticulosis of colon (without mention of hemo rrhage) 04/30/2009 External hemorrhoids without mention of complica tion 04/30/2009 Internal hemorrhoids without mention of complica tion 04/30/2009 documented as of this encounter (statuses as of 07/17/2022) [facility] History of Past illness Narrative* Problem Noted Date Resolved Date SHERLYN (acute kidney injury) 09/29/20192019 Last Assessment & Plan: Assessment: DKA induced with dehydration PLAN: Volume resuscitated, IVF now KVO Tolerating PO diet Monitor BUN/Cr for further changes DKA (diabetic ketoacidoses) 09/28/2019 07/0 04/2020 Last Assessment & Plan: 2/ 2 Insulin Pump malfunction. Hyperglycemia On admission with CBG > 600 and AG 26 - now resolved. PLAN: Endocrinology consulted AG closed, insulin infusion stopped- back on her insulin pump now Dc home with accucheck / home insulin pump therapy and fup recs Other dysphagia 07/18/2019 09/29/2019 Vertigo 08/12/2015 09/29/2019 BPPV (benign paroxysmal positional vertigo) 01/1909/29/2019 Vertigo 02/02/2013 06/25/2015 Thoracic or lumbosacral neuritis or radiculitis, unspecified 03/01/2012 09/29/2019 Abnormality of gait 03/01/2012 06/25/2015 Pain in joint, lower leg 01/21/2010 016 Routine general medical exam ination at a health care facility 04/30/2009 06/25/2015 Overview: 04/30/2009, establish from Dr. Givens 06/25/2010, yearly check-up (60 minutes) Routine gynecological examination 04/30/2009 06/25/2015 Overview: Dr[facility] Schmit[facility], [facility] [place] Tenosynovitis of foot and ankle 06/29/2008 04/30/2009 Acute bronchitis 05/18/2008 04/30/2009 Anemia, unspecified 12/04/2006 09/29/2019 Cellulitis and abscess of foot, except toes 10/200604/30/2009 Onychia and paronychia of toe 08/11/2006 Pain in joint, shoulder region 05/22/2006 0 04/30/2009 Sprain of neck 05/22/2006 04/30/2009 DUPUYTRENS CONTRACTURES 03/23/2006 04/30/19 10 Dermatophytosis of nail 09/04/2005 04/30/19 10 CARPAL TUNNEL BILATERRAL 08/08/2005 020 Nonspecific abnormal results of liver function s tudy 08/08/2005 04/30/2009 OVERWEIGHT 08/08/2005 04/30/2009 Ingrowing nail 03/20/2005 04/30/2009 Pain in limb 03/20/2005 04/30/2009 Allergic Rhinitis, Cause Unspecified 01/13/2005 06/25/2015 Coronary artery disease involving [place] coronar y artery 09/29/2019 Overview: Dr. Pederson follows regularly; S/P PTCA and stenting at [facility], [place], 2000 Last Assessment & Plan: Currently she has no chest pain or SOB. 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 0 09/29/2019 Diverticulosis of colon (without mention of hemo rrhage) 04/30/2009 External hemorrhoids without mention of complica tion 04/30/2009 Internal hemorrhoids without mention of complica tion 04/30/2009 documented as of this encounter (statuses as of 07/21/2022) [facility] History of Past illness Narrative* Problem Noted Date Resolved Date SHERLYN (acute kidney injury) 09/29/20192019 Last Assessment & Plan: Assessment: DKA induced with dehydration PLAN: Volume resuscitated, IVF now KVO Tolerating PO diet Monitor BUN/Cr for further changes DKA (diabetic ketoacidoses) 09/28/2019 07/0 04/2020 Last Assessment & Plan: 2/ 2 Insulin Pump malfunction. Hyperglycemia On admission with CBG > 600 and AG 26 - now resolved. PLAN: Endocrinology consulted AG closed, insulin infusion stopped- back on her insulin pump now Dc home with accucheck / home insulin pump therapy and fup recs Other dysphagia 07/18/2019 09/29/2019 Vertigo 08/12/2015 09/29/2019 BPPV (benign paroxysmal positional vertigo) 01/1909/29/2019 Vertigo 02/02/2013 06/25/2015 Thoracic or lumbosacral neuritis or radiculitis, unspecified 03/01/2012 09/29/2019 Abnormality of gait 03/01/2012 06/25/2015 Pain in joint, lower leg 01/21/2010 016 Routine general medical exam ination at a health care facility 04/30/2009 06/25/2015 Overview: 04/30/2009, establish from Dr. Givens 06/25/2010, yearly check-up (60 minutes) Routine gynecological examination 04/30/2009 06/25/2015 Overview: Dr. Schmitz, [facility], [facility] [place] Tenosynovitis of foot and ankle 06/29/2008 04/30/2009 Acute bronchitis 05/18/2008 04/30/2009 Anemia, unspecified 12/04/2006 09/29/2019 Cellulitis and abscess of foot, except toes 10/200604/30/2009 Onychia and paronychia of toe 08/11/2006 Pain in joint, shoulder region 05/22/2006 0 04/30/2009 Sprain of neck 05/22/2006 04/30/2009 DUPUYTRENS CONTRACTURES 03/23/2006 04/30/19 10 Dermatophytosis of nail 09/04/2005 04/30/19 10 CARPAL TUNNEL BILATERRAL 08/08/2005 020 Nonspecific abnormal results of liver function s tudy 08/08/2005 04/30/2009 OVERWEIGHT 08/08/2005 04/30/2009 Ingrowing nail 03/20/2005 04/30/2009 Pain in limb 03/20/2005 04/30/2009 Allergic Rhinitis, Cause Unspecified 01/13/2005 06/25/2015 Coronary artery disease involving [place] coronar y artery 09/29/2019 Overview: Dr. Pederson follows regularly; S/P PTCA and stenting at [facility], [place], 2000 Last Assessment & Plan: Currently she has no chest pain or SOB. 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 0 09/29/2019 Diverticulosis of colon (without mention of hemo rrhage) 04/30/2009 External hemorrhoids without mention of complica tion 04/30/2009 Internal hemorrhoids without mention of complica tion 04/30/2009 documented as of this encounter (statuses as of 07/25/2022) [facility] History of Past illness Narrative* Problem Noted Date Resolved Date SHERLYN (acute kidney injury) 09/29/20192019 Last Assessment & Plan: Assessment: DKA induced with dehydration PLAN: Volume resuscitated, IVF now KVO Tolerating PO diet Monitor BUN/Cr for further changes DKA (diabetic ketoacidoses) 09/28/2019 07/0 04/2020 Last Assessment & Plan: 2/ 2 Insulin Pump malfunction. Hyperglycemia On admission with CBG > 600 and AG 26 - now resolved. PLAN: Endocrinology consulted AG closed, insulin infusion stopped- back on her insulin pump now Dc home with accucheck / home insulin pump therapy and fup recs Other dysphagia 07/18/2019 09/29/2019 Vertigo 08/12/2015 09/29/2019 BPPV (benign paroxysmal positional vertigo) 01/1909/29/2019 Vertigo 02/02/2013 06/25/2015 Thoracic or lumbosacral neuritis or radiculitis, unspecified 03/01/2012 09/29/2019 Abnormality of gait 03/01/2012 06/25/2015 Pain in joint, lower leg 01/21/2010 016 Routine general medical exam ination at a health care facility 04/30/2009 06/25/2015 Overview: 04/30/2009, establish from Dr. Givens 06/25/2010, yearly check-up (60 minutes) Routine gynecological examination 04/30/2009 06/25/2015 Overview: Dr. Schmitz, [facility], [facility] [place] Tenosynovitis of foot and ankle 06/29/2008 04/30/2009 Acute bronchitis 05/18/2008 04/30/2009 Anemia, unspecified 12/04/2006 09/29/2019 Cellulitis and abscess of foot, except toes 10/200604/30/2009 Onychia and paronychia of toe 08/11/2006 Pain in joint, shoulder region 05/22/2006 0 04/30/2009 Sprain of neck 05/22/2006 04/30/2009 DUPUYTRENS CONTRACTURES 03/23/2006 04/30/19 10 Dermatophytosis of nail 09/04/2005 04/30/19 10 CARPAL TUNNEL BILATERRAL 08/08/2005 020 Nonspecific abnormal results of liver function s tudy 08/08/2005 04/30/2009 OVERWEIGHT 08/08/2005 04/30/2009 Ingrowing nail 03/20/2005 04/30/2009 Pain in limb 03/20/2005 04/30/2009 Allergic Rhinitis, Cause Unspecified 01/13/2005 06/25/2015 Coronary artery disease involving [place] coronar y artery 09/29/2019 Overview: Dr. Pederson follows regularly; S/P PTCA and stenting at [facility], [place], 2000 Last Assessment & Plan: Currently she has no chest pain or SOB. 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 0 09/29/2019 Diverticulosis of colon (without mention of hemo rrhage) 04/30/2009 External hemorrhoids without mention of complica tion 04/30/2009 Internal hemorrhoids without mention of complica tion 04/30/2009 documented as of this encounter (statuses as of 08/01/2022) [facility] History of Past illness Narrative* Problem Noted Date Resolved Date SHERLYN (acute kidney injury) 09/29/20192019 Last Assessment & Plan: Assessment: DKA induced with dehydration PLAN: Volume resuscitated, IVF now KVO Tolerating PO diet Monitor BUN/Cr for further changes DKA (diabetic ketoacidoses) 09/28/2019 07/0 04/2020 Last Assessment & Plan: 2/ 2 Insulin Pump malfunction. Hyperglycemia On admission with CBG > 600 and AG 26 - now resolved. PLAN: Endocrinology consulted AG closed, insulin infusion stopped- back on her insulin pump now Dc home with accucheck / home insulin pump therapy and fup recs Other dysphagia 07/18/2019 09/29/2019 Vertigo 08/12/2015 09/29/2019 BPPV (benign paroxysmal positional vertigo) 01/1909/29/2019 Vertigo 02/02/2013 06/25/2015 Thoracic or lumbosacral neuritis or radiculitis, unspecified 03/01/2012 09/29/2019 Abnormality of gait 03/01/2012 06/25/2015 Pain in joint, lower leg 01/21/2010 016 Routine general medical exam ination at a health care facility 04/30/2009 06/25/2015 Overview: 04/30/2009, establish from Dr. Givens 06/25/2010, yearly check-up (60 minutes) Routine gynecological examination 04/30/2009 06/25/2015 Overview: Dr. Schmitz, [facility], [facility] [place] Tenosynovitis of foot and ankle 06/29/2008 04/30/2009 Acute bronchitis 05/18/2008 04/30/2009 Anemia, unspecified 12/04/2006 09/29/2019 Cellulitis and abscess of foot, except toes 10/200604/30/2009 Onychia and paronychia of toe 08/11/2006 Pain in joint, shoulder region 05/22/2006 0 04/30/2009 Sprain of neck 05/22/2006 04/30/2009 DUPUYTRENS CONTRACTURES 03/23/2006 04/30/19 10 Dermatophytosis of nail 09/04/2005 04/30/19 10 CARPAL TUNNEL BILATERRAL 08/08/2005 020 Nonspecific abnormal results of liver function s tudy 08/08/2005 04/30/2009 OVERWEIGHT 08/08/2005 04/30/2009 Ingrowing nail 03/20/2005 04/30/2009 Pain in limb 03/20/2005 04/30/2009 Allergic Rhinitis, Cause Unspecified 01/13/2005 06/25/2015 Coronary artery disease involving [place] coronar y artery 09/29/2019 Overview: Dr. Pederson follows regularly; S/P PTCA and stenting at [facility], [place], 2000 Last Assessment & Plan: Currently she has no chest pain or SOB. 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 0 09/29/2019 Diverticulosis of colon (without mention of hemo rrhage) 04/30/2009 External hemorrhoids without mention of complica tion 04/30/2009 Internal hemorrhoids without mention of complica tion 04/30/2009 documented as of this encounter (statuses as of 08/04/2022) [facility] History of Past illness Narrative* Problem Noted Date Resolved Date SHERLYN (acute kidney injury) 09/29/20192019 Last Assessment & Plan: Assessment: DKA induced with dehydration PLAN: Volume resuscitated, IVF now KVO Tolerating PO diet Monitor BUN/Cr for further changes DKA (diabetic ketoacidoses) 09/28/2019 07/0 04/2020 Last Assessment & Plan: 2/ 2 Insulin Pump malfunction. Hyperglycemia On admission with CBG > 600 and AG 26 - now resolved. PLAN: Endocrinology consulted AG closed, insulin infusion stopped- back on her insulin pump now Dc home with accucheck / home insulin pump therapy and fup recs Other dysphagia 07/18/2019 09/29/2019 Vertigo 08/12/2015 09/29/2019 BPPV (benign paroxysmal positional vertigo) 01/1909/29/2019 Vertigo 02/02/2013 06/25/2015 Thoracic or lumbosacral neuritis or radiculitis, unspecified 03/01/2012 09/29/2019 Abnormality of gait 03/01/2012 06/25/2015 Pain in joint, lower leg 01/21/2010 016 Routine general medical exam ination at a health care facility 04/30/2009 06/25/2015 Overview: 04/30/2009, establish from Dr. Givens 06/25/2010, yearly check-up (60 minutes) Routine gynecological examination 04/30/2009 06/25/2015 Overview: Dr[facility] Schmitz, [facility], [facility] [place] Tenosynovitis of foot and ankle 06/29/2008 04/30/2009 Acute bronchitis 05/18/2008 04/30/2009 Anemia, unspecified 12/04/2006 09/29/2019 Cellulitis and abscess of foot, except toes 10/200604/30/2009 Onychia and paronychia of toe 08/11/2006 Pain in joint, shoulder region 05/22/2006 0 04/30/2009 Sprain of neck 05/22/2006 04/30/2009 DUPUYTRENS CONTRACTURES 03/23/2006 04/30/19 10 Dermatophytosis of nail 09/04/2005 04/30/19 10 CARPAL TUNNEL BILATERRAL 08/08/2005 020 Nonspecific abnormal results of liver function s tudy 08/08/2005 04/30/2009 OVERWEIGHT 08/08/2005 04/30/2009 Ingrowing nail 03/20/2005 04/30/2009 Pain in limb 03/20/2005 04/30/2009 Allergic Rhinitis, Cause Unspecified 01/13/2005 06/25/2015 Coronary artery disease involving [place] coronar y artery 09/29/2019 Overview: Dr. Pederson follows regularly; S/P PTCA and stenting at [facility], [place], 2000 Last Assessment & Plan: Currently she has no chest pain or SOB. 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 0 09/29/2019 Diverticulosis of colon (without mention of hemo rrhage) 04/30/2009 External hemorrhoids without mention of complica tion 04/30/2009 Internal hemorrhoids without mention of complica tion 04/30/2009 documented as of this encounter (statuses as of 08/07/2022) [facility] History of Past illness Narrative* Problem Noted Date Resolved Date SHERLYN (acute kidney injury) 09/29/20192019 Last Assessment & Plan: Assessment: DKA induced with dehydration PLAN: Volume resuscitated, IVF now KVO Tolerating PO diet Monitor BUN/Cr for further changes DKA (diabetic ketoacidoses) 09/28/2019 07/0 04/2020 Last Assessment & Plan: 2/ Insulin Pump malfunction. Hyperglycemia On admission with CBG > 600 and AG 26 - now resolved. PLAN: Endocrinology consulted AG closed, insulin infusion stopped- back on her insulin pump now Dc home with accucheck / home insulin pump therapy and fup recs Other dysphagia 07/18/2019 09/29/2019 Vertigo 08/12/2015 09/29/2019 BPPV (benign paroxysmal positional vertigo) 01/1909/29/2019 Vertigo 02/02/2013 06/25/2015 Thoracic or lumbosacral neuritis or radiculitis, unspecified 03/01/2012 09/29/2019 Abnormality of gait 03/01/2012 06/25/2015 Pain in joint, lower leg 01/21/2010 016 Routine general medical exam ination at a health care facility 04/30/2009 06/25/2015 Overview: 04/30/2009, establish from Dr. Givens 06/25/2010, yearly check-up (60 minutes) Routine gynecological examination 04/30/2009 06/25/2015 Overview: Dr[facility] Schmitz, [facility], [facility] Tenosynovitis of foot and ankle 06/29/2008 04/30/2009 Acute bronchitis 05/18/2008 04/30/2009 Anemia, unspecified 12/04/2006 09/29/2019 Cellulitis and abscess of foot, except toes 10/200604/30/2009 Onychia and paronychia of toe 08/11/2006 Pain in joint, shoulder region 05/22/2006 0 04/30/2009 Sprain of neck 05/22/2006 04/30/2009 DUPUYTRENS CONTRACTURES 03/23/2006 04/30/19 10 Dermatophytosis of nail 09/04/2005 04/30/19 10 CARPAL TUNNEL BILATERRAL 08/08/2005 020 Nonspecific abnormal results of liver function s tudy 08/08/2005 04/30/2009 OVERWEIGHT 08/08/2005 04/30/2009 Ingrowing nail 03/20/2005 04/30/2009 Pain in limb 03/20/2005 04/30/2009 Allergic Rhinitis, Cause Unspecified 01/13/2005 06/25/2015 Coronary artery disease involving [place] coronar y artery 09/29/2019 Overview: Dr. Pederson follows regularly; S/P PTCA and stenting at [facility], [place], 2001 Last Assessment & Plan: Currently she has no chest pain or SOB. 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 0 09/29/2019 Diverticulosis of colon (without mention of hemo rrhage) 04/30/2009 External hemorrhoids without mention of complica tion 04/30/2009 Internal hemorrhoids without mention of complica tion 04/30/2009 documented as of this encounter (statuses as of 08/07/2022) [facility] History of Past illness Narrative* Problem Noted Date Resolved Date SHERLYN (acute kidney injury) 09/29/20192019 Last Assessment & Plan: Assessment: DKA induced with dehydration PLAN: Volume resuscitated, IVF now KVO Tolerating PO diet Monitor BUN/Cr for further changes DKA (diabetic ketoacidoses) 09/28/2019 07/0 04/2020 Last Assessment & Plan: 2/ 2 Insulin Pump malfunction. Hyperglycemia On admission with CBG > 600 and AG 26 - now resolved. PLAN: Endocrinology consulted AG closed, insulin infusion stopped- back on her insulin pump now Dc home with accucheck / home insulin pump therapy and fup recs Other dysphagia 07/18/2019 09/29/2019 Vertigo 08/12/2015 09/29/2019 BPPV (benign paroxysmal positional vertigo) 10/08/201409/29/2019 Vertigo 02/02/2013 06/25/2015 Thoracic or lumbosacral neuritis or radiculitis, unspecified 03/01/2012 09/29/2019 Abnormality of gait 03/01/2012 06/25/2015 Pain in joint, lower leg 01/21/2010 016 Routine general medical exam ination at a health care facility 04/30/2009 06/25/2015 Overview: 04/30/2009, establish from Dr. Givens 06/25/2010, yearly check-up (60 minutes) Routine gynecological examination 04/30/2009 06/25/2015 Overview: Dr[facility] Schmitz, [facility], [facility] [place] Tenosynovitis of foot and ankle 06/29/2008 04/30/2009 Acute bronchitis 05/18/2008 04/30/2009 Anemia, unspecified 12/04/2006 09/29/2019 Cellulitis and abscess of foot, except toes 10/200604/30/2009 Onychia and paronychia of toe 08/11/2006 Pain in joint, shoulder region 05/22/2006 0 04/30/2009 Sprain of neck 05/22/2006 04/30/2009 DUPUYTRENS CONTRACTURES 03/23/2006 04/30/19 10 Dermatophytosis of nail 09/04/2005 04/30/19 10 CARPAL TUNNEL BILATERRAL 08/08/2005 020 Nonspecific abnormal results of liver function s tudy 08/08/2005 04/30/2009 OVERWEIGHT 08/08/2005 04/30/2009 Ingrowing nail 03/20/2005 04/30/2009 Pain in limb 03/20/2005 04/30/2009 Allergic Rhinitis, Cause Unspecified 01/13/2005 06/25/2015 Coronary artery disease involving [place] coronar y artery 09/29/2019 Overview: Dr. Pederson follows regularly; S/P PTCA and stenting at [facility], [place], 2000 Last Assessment & Plan: Currently she has no chest pain or SOB. 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 0 09/29/2019 Diverticulosis of colon (without mention of hemo rrhage) 04/30/2009 External hemorrhoids without mention of complica tion 04/30/2009 Internal hemorrhoids without mention of complica tion 04/30/2009 documented as of this encounter (statuses as of 08/08/2022) [facility] History of Past illness Narrative* Problem Noted Date Resolved Date SHERLYN (acute kidney injury) 09/29/20192019 Last Assessment & Plan: Assessment: DKA induced with dehydration PLAN: Volume resuscitated, IVF now KVO Tolerating PO diet Monitor BUN/Cr for further changes DKA (diabetic ketoacidoses) 09/28/2019 07/0 04/2020 Last Assessment & Plan: 2/ 2 Insulin Pump malfunction. Hyperglycemia On admission with CBG > 600 and AG 26 - now resolved. PLAN: Endocrinology consulted AG closed, insulin infusion stopped- back on her insulin pump now Dc home with accucheck / home insulin pump therapy and fup recs Other dysphagia 07/18/2019 09/29/2019 Vertigo 08/12/2015 09/29/2019 BPPV (benign paroxysmal positional vertigo) 01/1909/29/2019 Vertigo 02/02/2013 06/25/2015 Thoracic or lumbosacral neuritis or radiculitis, unspecified 03/01/2012 09/29/2019 Abnormality of gait 03/01/2012 06/25/2015 Pain in joint, lower leg 01/21/2010 016 Routine general medical exam ination at a health care facility 04/30/2009 06/25/2015 Overview: 04/30/2009, establish from Dr. Givens 06/25/2010, yearly check-up (60 minutes) Routine gynecological examination 04/30/2009 06/25/2015 Overview: Dr[facility] Schmitz, [facility] [place] Tenosynovitis of foot and ankle 06/29/2008 04/30/2009 Acute bronchitis 05/18/2008 04/30/2009 Anemia, unspecified 12/04/2006 09/29/2019 Cellulitis and abscess of foot, except toes 10/200604/30/2009 Onychia and paronychia of toe 08/11/2006 Pain in joint, shoulder region 05/22/2006 0 04/30/2009 Sprain of neck 05/22/2006 04/30/2009 DUPUYTRENS CONTRACTURES 03/23/2006 04/30/19 10 Dermatophytosis of nail 09/04/2005 04/30/19 10 CARPAL TUNNEL BILATERRAL 08/08/2005 020 Nonspecific abnormal results of liver function s tudy 08/08/2005 04/30/2009 OVERWEIGHT 08/08/2005 04/30/2009 Ingrowing nail 03/20/2005 04/30/2009 Pain in limb 03/20/2005 04/30/2009 Allergic Rhinitis, Cause Unspecified 01/13/2005 06/25/2015 Coronary artery disease involving [place] coronar y artery 09/29/2019 Overview: Dr. Pederson follows regularly; S/P PTCA and stenting at [facility], [place], 2000 Last Assessment & Plan: Currently she has no chest pain or SOB. 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 0 09/29/2019 Diverticulosis of colon (without mention of hemo rrhage) 04/30/2009 External hemorrhoids without mention of complica tion 04/30/2009 Internal hemorrhoids without mention of complica tion 04/30/2009 documented as of this encounter (statuses as of 08/08/2022) [facility] History of Past illness Narrative* Problem Noted Date Resolved Date SHERLYN (acute kidney injury) 09/29/20192019 Last Assessment & Plan: Assessment: DKA induced with dehydration PLAN: Volume resuscitated, IVF now KVO Tolerating PO diet Monitor BUN/Cr for further changes DKA (diabetic ketoacidoses) 09/28/2019 07/0 04/2020 Last Assessment & Plan: 2/ 2 Insulin Pump malfunction. Hyperglycemia On admission with CBG > 600 and AG 26 - now resolved. PLAN: Endocrinology consulted AG closed, insulin infusion stopped- back on her insulin pump now Dc home with accucheck / home insulin pump therapy and fup recs Other dysphagia 07/18/2019 09/29/2019 Vertigo 08/12/2015 09/29/2019 BPPV (benign paroxysmal positional vertigo) 01/1909/29/2019 Vertigo 02/02/2013 06/25/2015 Thoracic or lumbosacral neuritis or radiculitis, unspecified 03/01/2012 09/29/2019 Abnormality of gait 03/01/2012 06/25/2015 Pain in joint, lower leg 01/21/2010 016 Routine general medical exam ination at a health care facility 04/30/2009 06/25/2015 Overview: 04/30/2009, establish from Dr. Givens 06/25/2010, yearly check-up (60 minutes) Routine gynecological examination 04/30/2009 06/25/2015 Overview: Dr. Schmitz, [facility] [place] Tenosynovitis of foot and ankle 06/29/2008 04/30/2009 Acute bronchitis 05/18/2008 04/30/2009 Anemia, unspecified 12/04/2006 09/29/2019 Cellulitis and abscess of foot, except toes 10/200604/30/2009 Onychia and paronychia of toe 08/11/2006 Pain in joint, shoulder region 05/22/2006 0 04/30/2009 Sprain of neck 05/22/2006 04/30/2009 DUPUYTRENS CONTRACTURES 03/23/2006 04/30/19 10 Dermatophytosis of nail 09/04/2005 04/30/19 10 CARPAL TUNNEL BILATERRAL 08/08/2005 020 Nonspecific abnormal results of liver function s tudy 08/08/2005 04/30/2009 OVERWEIGHT 08/08/2005 04/30/2009 Ingrowing nail 03/20/2005 04/30/2009 Pain in limb 03/20/2005 04/30/2009 Allergic Rhinitis, Cause Unspecified 01/13/2005 06/25/2015 Coronary artery disease involving [place] coronar y artery 09/29/2019 Overview: Dr. Pederson follows regularly; S/P PTCA and stenting at [facility], [place], 2000 Last Assessment & Plan: Currently she has no chest pain or SOB. 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 0 09/29/2019 Diverticulosis of colon (without mention of hemo rrhage) 04/30/2009 External hemorrhoids without mention of complica tion 04/30/2009 Internal hemorrhoids without mention of complica tion 04/30/2009 documented as of this encounter (statuses as of 08/21/2022) [facility] History of Past illness Narrative* Problem Noted Date Resolved Date SHERLYN (acute kidney injury) 09/29/20192019 Last Assessment & Plan: Assessment: DKA induced with dehydration PLAN: Volume resuscitated, IVF now KVO Tolerating PO diet Monitor BUN/Cr for further changes DKA (diabetic ketoacidoses) 09/28/2019 07/0 04/2020 Last Assessment & Plan: 2/ 2 Insulin Pump malfunction. Hyperglycemia On admission with CBG > 600 and AG 26 - now resolved. PLAN: Endocrinology consulted AG closed, insulin infusion stopped- back on her insulin pump now Dc home with accucheck / home insulin pump therapy and fup recs Other dysphagia 07/18/2019 09/29/2019 Vertigo 08/12/2015 09/29/2019 BPPV (benign paroxysmal positional vertigo) 01/1909/29/2019 Vertigo 02/02/2013 06/25/2015 Thoracic or lumbosacral neuritis or radiculitis, unspecified 03/01/2012 09/29/2019 Abnormality of gait 03/01/2012 06/25/2015 Pain in joint, lower leg 01/21/2010 016 Routine general medical exam ination at a health care facility 04/30/2009 06/25/2015 Overview: 04/30/2009, establish from Dr. Givens 06/25/2010, yearly check-up (60 minutes) Routine gynecological examination 04/30/2009 06/25/2015 Overview: [facility] Schmit[facility], [facility] [place] Tenosynovitis of foot and ankle 06/29/2008 04/30/2009 Acute bronchitis 05/18/2008 04/30/2009 Anemia, unspecified 12/04/2006 09/29/2019 Cellulitis and abscess of foot, except toes 10/200604/30/2009 Onychia and paronychia of toe 08/11/2006 Pain in joint, shoulder region 05/22/2006 0 04/30/2009 Sprain of neck 05/22/2006 04/30/2009 DUPUYTRENS CONTRACTURES 03/23/2006 04/30/19 10 Dermatophytosis of nail 09/04/2005 04/30/19 10 CARPAL TUNNEL BILATERRAL 08/08/2005 020 Nonspecific abnormal results of liver function s tudy 08/08/2005 04/30/2009 OVERWEIGHT 08/08/2005 04/30/2009 Ingrowing nail 03/20/2005 04/30/2009 Pain in limb 03/20/2005 04/30/2009 Allergic Rhinitis, Cause Unspecified 01/13/2005 06/25/2015 Coronary artery disease involving [place] coronar y artery 09/29/2019 Overview: Dr. Pederson follows regularly; S/P PTCA and stenting at [facility], [place], 2000 Last Assessment & Plan: Currently she has no chest pain or SOB. 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 0 09/29/2019 Diverticulosis of colon (without mention of hemo rrhage) 04/30/2009 External hemorrhoids without mention of complica tion 04/30/2009 Internal hemorrhoids without mention of complica tion 04/30/2009 documented as of this encounter (statuses as of 10/02/2022) [facility] History of Past illness Narrative* Problem Noted Date Resolved Date SHERLYN (acute kidney injury) 09/29/20192019 Last Assessment & Plan: Assessment: DKA induced with dehydration PLAN: Volume resuscitated, IVF now KVO Tolerating PO diet Monitor BUN/Cr for further changes DKA (diabetic ketoacidoses) 09/28/2019 07/0 04/2020 Last Assessment & Plan: 2/ 2 Insulin Pump malfunction. Hyperglycemia On admission with CBG > 600 and AG 26 - now resolved. PLAN: Endocrinology consulted AG closed, insulin infusion stopped- back on her insulin pump now Dc home with accucheck / home insulin pump therapy and fup recs Other dysphagia 07/18/2019 09/29/2019 Vertigo 08/12/2015 09/29/2019 BPPV (benign paroxysmal positional vertigo) 01/1909/29/2019 Vertigo 02/02/2013 06/25/2015 Thoracic or lumbosacral neuritis or radiculitis, unspecified 03/01/2012 09/29/2019 Abnormality of gait 03/01/2012 06/25/2015 Pain in joint, lower leg 01/21/2010 016 Routine general medical exam ination at a health care facility 04/30/2009 06/25/2015 Overview: 04/30/2009, establish from Dr. Givens 06/25/2010, yearly check-up (60 minutes) Routine gynecological examination 04/30/2009 06/25/2015 Overview: Dr[facility] Schmitz, [facility] [place] Tenosynovitis of foot and ankle 06/29/2008 04/30/2009 Acute bronchitis 05/18/2008 04/30/2009 Anemia, unspecified 12/04/2006 09/29/2019 Cellulitis and abscess of foot, except toes 10/200604/30/2009 Onychia and paronychia of toe 08/11/2006 Pain in joint, shoulder region 05/22/2006 0 04/30/2009 Sprain of neck 05/22/2006 04/30/2009 DUPUYTRENS CONTRACTURES 03/23/2006 04/30/19 10 Dermatophytosis of nail 09/04/2005 04/30/19 10 CARPAL TUNNEL BILATERRAL 08/08/2005 020 Nonspecific abnormal results of liver function s tudy 08/08/2005 04/30/2009 OVERWEIGHT 08/08/2005 04/30/2009 Ingrowing nail 03/20/2005 04/30/2009 Pain in limb 03/20/2005 04/30/2009 Allergic Rhinitis, Cause Unspecified 01/13/2005 06/25/2015 Coronary artery disease involving [place] coronar y artery 09/29/2019 Overview: Dr. Pederson follows regularly; S/P PTCA and stenting at [facility], [place], 2000 Last Assessment & Plan: Currently she has no chest pain or SOB. 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 0 09/29/2019 Diverticulosis of colon (without mention of hemo rrhage) 04/30/2009 External hemorrhoids without mention of complica tion 04/30/2009 Internal hemorrhoids without mention of complica tion 04/30/2009 documented as of this encounter (statuses as of 10/10/2022) [facility] History of Past illness Narrative* Problem Noted Date Resolved Date SHERLYN (acute kidney injury) 09/29/20192019 Last Assessment & Plan: Assessment: DKA induced with dehydration PLAN: Volume resuscitated, IVF now KVO Tolerating PO diet Monitor BUN/Cr for further changes DKA (diabetic ketoacidoses) 09/28/2019 07/0 04/2020 Last Assessment & Plan: 2/ 2 Insulin Pump malfunction. Hyperglycemia On admission with CBG > 600 and AG 26 - now resolved. PLAN: Endocrinology consulted AG closed, insulin infusion stopped- back on her insulin pump now Dc home with accucheck / home insulin pump therapy and fup recs Other dysphagia 07/18/2019 09/29/2019 Vertigo 08/12/2015 09/29/2019 BPPV (benign paroxysmal positional vertigo) 01/1909/29/2019 Vertigo 02/02/2013 06/25/2015 Thoracic or lumbosacral neuritis or radiculitis, unspecified 03/01/2012 09/29/2019 Abnormality of gait 03/01/2012 06/25/2015 Pain in joint, lower leg 01/21/2010 016 Routine general medical exam ination at a health care facility 04/30/2009 06/25/2015 Overview: 04/30/2009, establish from Dr. Givens 06/25/2010, yearly check-up (60 minutes) Routine gynecological examination 04/30/2009 06/25/2015 Overview: Dr. Schmitz, [facility] [place] Tenosynovitis of foot and ankle 06/29/2008 04/30/2009 Acute bronchitis 05/18/2008 04/30/2009 Anemia, unspecified 12/04/2006 09/29/2019 Cellulitis and abscess of foot, except toes 10/200604/30/2009 Onychia and paronychia of toe 08/11/2006 Pain in joint, shoulder region 05/22/2006 0 04/30/2009 Sprain of neck 05/22/2006 04/30/2009 DUPUYTRENS CONTRACTURES 03/23/2006 04/30/19 10 Dermatophytosis of nail 09/04/2005 04/30/19 10 CARPAL TUNNEL BILATERRAL 08/08/2005 020 Nonspecific abnormal results of liver function s tudy 08/08/2005 04/30/2009 OVERWEIGHT 08/08/2005 04/30/2009 Ingrowing nail 03/20/2005 04/30/2009 Pain in limb 03/20/2005 04/30/2009 Allergic Rhinitis, Cause Unspecified 01/13/2005 06/25/2015 Coronary artery disease involving [place] coronar y artery 09/29/2019 Overview: Dr. Pederson follows regularly; S/P PTCA and stenting at [facility], [place], 2000 Last Assessment & Plan: Currently she has no chest pain or SOB. 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 0 09/29/2019 Diverticulosis of colon (without mention of hemo rrhage) 04/30/2009 External hemorrhoids without mention of complica tion 04/30/2009 Internal hemorrhoids without mention of complica tion 04/30/2009 documented as of this encounter (statuses as of 10/15/2022) [facility] History of Past illness Narrative* Problem Noted Date Resolved Date SHERLYN (acute kidney injury) 09/29/20192019 Last Assessment & Plan: Assessment: DKA induced with dehydration PLAN: Volume resuscitated, IVF now KVO Tolerating PO diet Monitor BUN/Cr for further changes DKA (diabetic ketoacidoses) 09/28/2019 07/0 04/2020 Last Assessment & Plan: 2/ 2 Insulin Pump malfunction. Hyperglycemia On admission with CBG > 600 and AG 26 - now resolved. PLAN: Endocrinology consulted AG closed, insulin infusion stopped- back on her insulin pump now Dc home with accucheck / home insulin pump therapy and fup recs Other dysphagia 07/18/2019 09/29/2019 Vertigo 08/12/2015 09/29/2019 BPPV (benign paroxysmal positional vertigo) 01/1909/29/2019 Vertigo 02/02/2013 06/25/2015 Thoracic or lumbosacral neuritis or radiculitis, unspecified 03/01/2012 09/29/2019 Abnormality of gait 03/01/2012 06/25/2015 Pain in joint, lower leg 01/21/2010 016 Routine general medical exam ination at a health care facility 04/30/2009 06/25/2015 Overview: 04/30/2009, establish from Dr. Givens 06/25/2010, yearly check-up (60 minutes) Routine gynecological examination 04/30/2009 06/25/2015 Overview: Dr[facility] Schmitz, [facility] [place] Tenosynovitis of foot and ankle 06/29/2008 04/30/2009 Acute bronchitis 05/18/2008 04/30/2009 Anemia, unspecified 12/04/2006 09/29/2019 Cellulitis and abscess of foot, except toes 10/200604/30/2009 Onychia and paronychia of toe 08/11/2006 Pain in joint, shoulder region 05/22/2006 0 04/30/2009 Sprain of neck 05/22/2006 04/30/2009 DUPUYTRENS CONTRACTURES 03/23/2006 04/30/19 10 Dermatophytosis of nail 09/04/2005 04/30/19 10 CARPAL TUNNEL BILATERRAL 08/08/2005 020 Nonspecific abnormal results of liver function s tudy 08/08/2005 04/30/2009 OVERWEIGHT 08/08/2005 04/30/2009 Ingrowing nail 03/20/2005 04/30/2009 Pain in limb 03/20/2005 04/30/2009 Allergic Rhinitis, Cause Unspecified 01/13/2005 06/25/2015 Coronary artery disease involving [place] coronar y artery 09/29/2019 Overview: Dr. Pederson follows regularly; S/P PTCA and stenting at [facility], [place], 2000 Last Assessment & Plan: Currently she has no chest pain or SOB. 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 0 09/29/2019 Diverticulosis of colon (without mention of hemo rrhage) 04/30/2009 External hemorrhoids without mention of complica tion 04/30/2009 Internal hemorrhoids without mention of complica tion 04/30/2009 documented as of this encounter (statuses as of 10/23/2022) [facility] History of Past illness Narrative* Problem Noted Date Diagnosed Date Resolved Date SHERLYN (acute kidney injury) 09/29/2019 Last Assessment & Plan: Assessment: DKA induced with dehydration PLAN: Volume resuscitated, IVF now KVO Tolerating PO diet Monitor BUN/Cr for further changes DKA (diabetic ketoacidoses) 09/28/2019 10/18/2020 Last Assessment & Plan: 2/ 2 Insulin Pump malfunction. Hyperglycemia On admission with CBG > 600 and AG 26 - now resolved. PLAN: Endocrinology consulted AG closed, insulin infusion stopped- back on her insulin pump now Dc home with accucheck / home insulin pump therapy and fup recs Other dysphagia 07/18/2019 09/29/2019 Vertigo 08/12/2015 09/29/2019 BPPV (benign paroxysmal positional vertigo) 02/11/2015 09/29/2019 Vertigo 02/02/2013 06/25/2015 Thoracic or lumbosacral neur itis or radiculitis, unspecified 03/01/2012 09/29/2019 Abnormality of gait 03/01/2012 06/25/19 16 Pain in joint, lower leg 01/21/201010/2015 Routine general medical exam ination at a health care facility 04/30/2009 06/25/2015 Overview: 04/30/2009, establish from Dr. Givens 06/25/2010, yearly check-up (60 minutes) Routine gynecological examination 04/30/2009 06/25/2015 Overview: Dr[facility] Schmitz, [facility] [place] Tenosynovitis of foot and ankle 06/29/2008 04/30/2009 Acute bronchitis 05/18/2008 04/30/2009 Anemia, unspecified 12/04/2006 09/29/19 20 Cellulitis and abscess of foot, except toes 08/24/2006 04/30/2009 Onychia and paronychia of toe 08/11/2006 04/30/2009 Pain in joint, shoulder region 05/22/2006 04/30/2009 Sprain of neck 05/22/2006 04/30/2009 DUPUYTRENS CONTRACTURES 03/23/200604/20 Dermatophytosis of nail 09/04/200504/20 CARPAL TUNNEL BILATERRAL 08/08/200502/2020 Nonspecific abnormal results of liver function study 08/08/2005 04/30/2009 OVERWEIGHT 08/08/2005 04/30/2009 Ingrowing nail 03/20/2005 04/30/2009 Pain in limb 03/20/2005 04/30/2009 Allergic Rhinitis, Cause Unspecified 01/13/2005 06/25/2015 Coronary artery disease invo lving [place] coronary artery 09/29/2019 Overview: Dr. Pederson follows regularly; S/P PTCA and stenting at [facility], [place], 2000 Last Assessment & Plan: Currently she has no chest pain or SOB. 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 09/29/2019 Diverticulosis of colon (wit hout mention of hemorrhage) 04/30/2009 External hemorrhoids without mention of 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 04/30/2009 Internal hemorrhoids without mention of 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 04/30/2009 documented as of this encounter (statuses as of 11/18/2022) [facility] History of Past illness Narrative* Problem Noted Date Diagnosed Date Resolved Date SHERLYN (acute kidney injury) 09/29/2019 Last Assessment & Plan: Assessment: DKA induced with dehydration PLAN: Volume resuscitated, IVF now KVO Tolerating PO diet Monitor BUN/Cr for further changes DKA (diabetic ketoacidoses) 09/28/2019 10/18/2020 Last Assessment & Plan: 2/ 2 Insulin Pump malfunction. Hyperglycemia On admission with CBG > 600 and AG 26 - now resolved. PLAN: Endocrinology consulted AG closed, insulin infusion stopped- back on her insulin pump now Dc home with accucheck / home insulin pump therapy and fup recs Other dysphagia 07/18/2019 09/29/2019 Vertigo 08/12/2015 09/29/2019 BPPV (benign paroxysmal positional vertigo) 02/11/2015 09/29/2019 Vertigo 02/02/2013 06/25/2015 Thoracic or lumbosacral neur itis or radiculitis, unspecified 03/01/2012 09/29/2019 Abnormality of gait 03/01/2012 06/25/19 16 Pain in joint, lower leg 01/21/201010/2015 Routine general medical exam ination at a health care facility 04/30/2009 06/25/2015 Overview: 04/30/2009, establish from Dr. Givens 06/25/2010, yearly check-up (60 minutes) Routine gynecological examination 04/30/2009 06/25/2015 Overview: [facility]. Schmitz, [facility], [facility] [place] Tenosynovitis of foot and ankle 06/29/2008 04/30/2009 Acute bronchitis 05/18/2008 04/30/2009 Anemia, unspecified 12/04/2006 09/29/19 20 Cellulitis and abscess of foot, except toes 08/24/2006 04/30/2009 Onychia and paronychia of toe 08/11/2006 04/30/2009 Pain in joint, shoulder region 05/22/2006 04/30/2009 Sprain of neck 05/22/2006 04/30/2009 DUPUYTRENS CONTRACTURES 03/23/200604/20 Dermatophytosis of nail 09/04/200504/20 CARPAL TUNNEL BILATERRAL 08/08/200502/2020 Nonspecific abnormal results of liver function study 08/08/2005 04/30/2009 OVERWEIGHT 08/08/2005 04/30/2009 Ingrowing nail 03/20/2005 04/30/2009 Pain in limb 03/20/2005 04/30/2009 Allergic Rhinitis, Cause Unspecified 01/13/2005 06/25/2015 Coronary artery disease invo lving [place] coronary artery 09/29/2019 Overview: Dr. Pederson follows regularly; S/P PTCA and stenting at [facility], [place], 2000 Last Assessment & Plan: Currently she has no chest pain or SOB. 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 09/29/2019 Diverticulosis of colon (wit hout mention of hemorrhage) 04/30/2009 External hemorrhoids without mention of 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 04/30/2009 Internal hemorrhoids without mention of 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 04/30/2009 documented as of this encounter (statuses as of 11/18/2022) [facility] History of Past illness Narrative* Problem Noted Date Diagnosed Date Resolved Date SHERLYN (acute kidney injury) 09/29/2019 Last Assessment & Plan: Assessment: DKA induced with dehydration PLAN: Volume resuscitated, IVF now KVO Tolerating PO diet Monitor BUN/Cr for further changes DKA (diabetic ketoacidoses) 09/28/2019 10/18/2020 Last Assessment & Plan: 2/ 2 Insulin Pump malfunction. Hyperglycemia On admission with CBG > 600 and AG 26 - now resolved. PLAN: Endocrinology consulted AG closed, insulin infusion stopped- back on her insulin pump now Dc home with accucheck / home insulin pump therapy and fup recs Other dysphagia 07/18/2019 09/29/2019 Vertigo 08/12/2015 09/29/2019 BPPV (benign paroxysmal positional vertigo) 02/11/2015 09/29/2019 Vertigo 02/02/2013 06/25/2015 Thoracic or lumbosacral neur itis or radiculitis, unspecified 03/01/2012 09/29/2019 Abnormality of gait 03/01/2012 06/25/19 16 Pain in joint, lower leg 01/21/201010/2015 Routine general medical exam ination at a health care facility 04/30/2009 06/25/2015 Overview: 04/30/2009, establish from Dr. Givens 06/25/2010, yearly check-up (60 minutes) Routine gynecological examination 04/30/2009 06/25/2015 Overview: [facility] Schmitz, [facility] [place] Tenosynovitis of foot and ankle 06/29/2008 04/30/2009 Acute bronchitis 05/18/2008 04/30/2009 Anemia, unspecified 12/04/2006 09/29/19 20 Cellulitis and abscess of foot, except toes 08/24/2006 04/30/2009 Onychia and paronychia of toe 08/11/2006 04/30/2009 Pain in joint, shoulder region 05/22/2006 04/30/2009 Sprain of neck 05/22/2006 04/30/2009 DUPUYTRENS CONTRACTURES 03/23/200604/20 Dermatophytosis of nail 09/04/200504/20 CARPAL TUNNEL BILATERRAL 08/08/200502/2020 Nonspecific abnormal results of liver function study 08/08/2005 04/30/2009 OVERWEIGHT 08/08/2005 04/30/2009 Ingrowing nail 03/20/2005 04/30/2009 Pain in limb 03/20/2005 04/30/2009 Allergic Rhinitis, Cause Unspecified 01/13/2005 06/25/2015 Coronary artery disease invo lving [place] coronary artery 09/29/2019 Overview: Dr. Pederson follows regularly; S/P PTCA and stenting at [facility], [place], 2000 Last Assessment & Plan: Currently she has no chest pain or SOB. 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 09/29/2019 Diverticulosis of colon (wit hout mention of hemorrhage) 04/30/2009 External hemorrhoids without mention of 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 04/30/2009 Internal hemorrhoids without mention of 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 04/30/2009 documented as of this encounter (statuses as of 11/25/2022) [facility] History of Past illness Narrative* Problem Noted Date Diagnosed Date Resolved Date SHERLYN (acute kidney injury) 09/29/2019 Last Assessment & Plan: Assessment: DKA induced with dehydration PLAN: Volume resuscitated, IVF now KVO Tolerating PO diet Monitor BUN/Cr for further changes DKA (diabetic ketoacidoses) 09/28/2019 10/18/2020 Last Assessment & Plan: 2/ 2 Insulin Pump malfunction. Hyperglycemia On admission with CBG > 600 and AG 26 - now resolved. PLAN: Endocrinology consulted AG closed, insulin infusion stopped- back on her insulin pump now Dc home with accucheck / home insulin pump therapy and fup recs Other dysphagia 07/18/2019 09/29/2019 Vertigo 08/12/2015 09/29/2019 BPPV (benign paroxysmal positional vertigo) 02/11/2015 09/29/2019 Vertigo 02/02/2013 06/25/2015 Thoracic or lumbosacral neur itis or radiculitis, unspecified 03/01/2012 09/29/2019 Abnormality of gait 03/01/2012 06/25/19 16 Pain in joint, lower leg 01/21/201010/2015 Routine general medical exam ination at a health care facility 04/30/2009 06/25/2015 Overview: 04/30/2009, establish from Dr. Givens 06/25/2010, yearly check-up (60 minutes) Routine gynecological examination 04/30/2009 06/25/2015 Overview: [facility] Schmitz, [facility] [place] Tenosynovitis of foot and ankle 06/29/2008 04/30/2009 Acute bronchitis 05/18/2008 04/30/2009 Anemia, unspecified 12/04/2006 09/29/19 20 Cellulitis and abscess of foot, except toes 08/24/2006 04/30/2009 Onychia and paronychia of toe 08/11/2006 04/30/2009 Pain in joint, shoulder region 05/22/2006 04/30/2009 Sprain of neck 05/22/2006 04/30/2009 DUPUYTRENS CONTRACTURES 03/23/200604/20 Dermatophytosis of nail 09/04/200504/20 CARPAL TUNNEL BILATERRAL 08/08/200502/2020 Nonspecific abnormal results of liver function study 08/08/2005 04/30/2009 OVERWEIGHT 08/08/2005 04/30/2009 Ingrowing nail 03/20/2005 04/30/2009 Pain in limb 03/20/2005 04/30/2009 Allergic Rhinitis, Cause Unspecified 01/13/2005 06/25/2015 Coronary artery disease invo lving [place] coronary artery 09/29/2019 Overview: Dr. Pederson follows regularly; S/P PTCA and stenting at [facility], [place], 2000 Last Assessment & Plan: Currently she has no chest pain or SOB. 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 09/29/2019 Diverticulosis of colon (wit hout mention of hemorrhage) 04/30/2009 External hemorrhoids without mention of 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 04/30/2009 Internal hemorrhoids without mention of 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 04/30/2009 documented as of this encounter (statuses as of 12/03/2022) [facility] History of Past illness Narrative* Problem Noted Date Diagnosed Date Resolved Date SHERLYN (acute kidney injury) 09/29/2019 Last Assessment & Plan: Assessment: DKA induced with dehydration PLAN: Volume resuscitated, IVF now KVO Tolerating PO diet Monitor BUN/Cr for further changes DKA (diabetic ketoacidoses) 09/28/2019 10/18/2020 Last Assessment & Plan: 2/ 2 Insulin Pump malfunction. Hyperglycemia On admission with CBG > 600 and AG 26 - now resolved. PLAN: Endocrinology consulted AG closed, insulin infusion stopped- back on her insulin pump now Dc home with accucheck / home insulin pump therapy and fup recs Other dysphagia 07/18/2019 09/29/2019 Vertigo 08/12/2015 09/29/2019 BPPV (benign paroxysmal positional vertigo) 02/11/2015 09/29/2019 Vertigo 02/02/2013 06/25/2015 Thoracic or lumbosacral neur itis or radiculitis, unspecified 03/01/2012 09/29/2019 Abnormality of gait 03/01/2012 06/25/19 16 Pain in joint, lower leg 01/21/201010/2015 Routine general medical exam ination at a health care facility 04/30/2009 06/25/2015 Overview: 04/30/2009, establish from Dr. Givens 06/25/2010, yearly check-up (60 minutes) Routine gynecological examination 04/30/2009 06/25/2015 Overview: [facility] Schmit[facility], [facility] [place] Tenosynovitis of foot and ankle 06/29/2008 04/30/2009 Acute bronchitis 05/18/2008 04/30/2009 Anemia, unspecified 12/04/2006 09/29/19 20 Cellulitis and abscess of foot, except toes 08/24/2006 04/30/2009 Onychia and paronychia of toe 08/11/2006 04/30/2009 Pain in joint, shoulder region 05/22/2006 04/30/2009 Sprain of neck 05/22/2006 04/30/2009 DUPUYTRENS CONTRACTURES 03/23/200604/20 Dermatophytosis of nail 09/04/200504/20 CARPAL TUNNEL BILATERRAL 08/08/200502/2020 Nonspecific abnormal results of liver function study 08/08/2005 04/30/2009 OVERWEIGHT 08/08/2005 04/30/2009 Ingrowing nail 03/20/2005 04/30/2009 Pain in limb 03/20/2005 04/30/2009 Allergic Rhinitis, Cause Unspecified 01/13/2005 06/25/2015 Coronary artery disease invo lving [place] coronary artery 09/29/2019 Overview: Dr. Pederson follows regularly; S/P PTCA and stenting at [facility], [place], 2000 Last Assessment & Plan: Currently she has no chest pain or SOB. 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 09/29/2019 Diverticulosis of colon (wit hout mention of hemorrhage) 04/30/2009 External hemorrhoids without mention of 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 04/30/2009 Internal hemorrhoids without mention of 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 04/30/2009 documented as of this encounter (statuses as of 12/04/2022) [facility] History of Past illness Narrative* Problem Noted Date Diagnosed Date Resolved Date SHERLYN (acute kidney injury) 09/29/2019 Last Assessment & Plan: Assessment: DKA induced with dehydration PLAN: Volume resuscitated, IVF now KVO Tolerating PO diet Monitor BUN/Cr for further changes DKA (diabetic ketoacidoses) 09/28/2019 10/18/2020 Last Assessment & Plan: 2/ 2 Insulin Pump malfunction. Hyperglycemia On admission with CBG > 600 and AG 26 - now resolved. PLAN: Endocrinology consulted AG closed, insulin infusion stopped- back on her insulin pump now Dc home with accucheck / home insulin pump therapy and fup recs Other dysphagia 07/18/2019 09/29/2019 Vertigo 08/12/2015 09/29/2019 BPPV (benign paroxysmal positional vertigo) 02/11/2015 09/29/2019 Vertigo 02/02/2013 06/25/2015 Thoracic or lumbosacral neur itis or radiculitis, unspecified 03/01/2012 09/29/2019 Abnormality of gait 03/01/2012 06/25/19 16 Pain in joint, lower leg 01/21/201010/2015 Routine general medical exam ination at a health care facility 04/30/2009 06/25/2015 Overview: 04/30/2009, establish from Dr. Givens 06/25/2010, yearly check-up (60 minutes) Routine gynecological examination 04/30/2009 06/25/2015 Overview: [facility] Schmitz, [facility] [place] Tenosynovitis of foot and ankle 06/29/2008 04/30/2009 Acute bronchitis 05/18/2008 04/30/2009 Anemia, unspecified 12/04/2006 09/29/19 20 Cellulitis and abscess of foot, except toes 08/24/2006 04/30/2009 Onychia and paronychia of toe 08/11/2006 04/30/2009 Pain in joint, shoulder region 05/22/2006 04/30/2009 Sprain of neck 05/22/2006 04/30/2009 DUPUYTRENS CONTRACTURES 03/23/200604/20 Dermatophytosis of nail 09/04/200504/20 CARPAL TUNNEL BILATERRAL 08/08/200502/2020 Nonspecific abnormal results of liver function study 08/08/2005 04/30/2009 OVERWEIGHT 08/08/2005 04/30/2009 Ingrowing nail 03/20/2005 04/30/2009 Pain in limb 03/20/2005 04/30/2009 Allergic Rhinitis, Cause Unspecified 01/13/2005 06/25/2015 Coronary artery disease invo lving [place] coronary artery 09/29/2019 Overview: Dr. Pederson follows regularly; S/P PTCA and stenting at [facility], [place], 2000 Last Assessment & Plan: Currently she has no chest pain or SOB. 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 09/29/2019 Diverticulosis of colon (wit hout mention of hemorrhage) 04/30/2009 External hemorrhoids without mention of 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 04/30/2009 Internal hemorrhoids without mention of 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 04/30/2009 documented as of this encounter (statuses as of 12/05/2022) [facility] History of Past illness Narrative* Problem Noted Date Diagnosed Date Resolved Date SHERLYN (acute kidney injury) 09/29/2019 Last Assessment & Plan: Assessment: DKA induced with dehydration PLAN: Volume resuscitated, IVF now KVO Tolerating PO diet Monitor BUN/Cr for further changes DKA (diabetic ketoacidoses) 09/28/2019 10/18/2020 Last Assessment & Plan: 2/ 2 Insulin Pump malfunction. Hyperglycemia On admission with CBG > 600 and AG 26 - now resolved. PLAN: Endocrinology consulted AG closed, insulin infusion stopped- back on her insulin pump now Dc home with accucheck / home insulin pump therapy and fup recs Other dysphagia 07/18/2019 09/29/2019 Vertigo 08/12/2015 09/29/2019 BPPV (benign paroxysmal positional vertigo) 02/11/2015 09/29/2019 Vertigo 02/02/2013 06/25/2015 Thoracic or lumbosacral neur itis or radiculitis, unspecified 03/01/2012 09/29/2019 Abnormality of gait 03/01/2012 06/25/19 16 Pain in joint, lower leg 01/21/201010/2015 Routine general medical exam ination at a health care facility 04/30/2009 06/25/2015 Overview: 04/30/2009, establish from Dr. Givens 06/25/2010, yearly check-up (60 minutes) Routine gynecological examination 04/30/2009 06/25/2015 Overview: Dr[facility] Schmit[facility], [facility] Tenosynovitis of foot and ankle 06/29/2008 04/30/2009 Acute bronchitis 05/18/2008 04/30/2009 Anemia, unspecified 12/04/2006 09/29/19 20 Cellulitis and abscess of foot, except toes 08/24/2006 04/30/2009 Onychia and paronychia of toe 08/11/2006 04/30/2009 Pain in joint, shoulder region 05/22/2006 04/30/2009 Sprain of neck 05/22/2006 04/30/2009 DUPUYTRENS CONTRACTURES 03/23/200604/20 Dermatophytosis of nail 09/04/200504/20 CARPAL TUNNEL BILATERRAL 08/08/200502/2020 Nonspecific abnormal results of liver function study 08/08/2005 04/30/2009 OVERWEIGHT 08/08/2005 04/30/2009 Ingrowing nail 03/20/2005 04/30/2009 Pain in limb 03/20/2005 04/30/2009 Allergic Rhinitis, Cause Unspecified 01/13/2005 06/25/2015 Coronary artery disease invo lving [place] coronary artery 09/29/2019 Overview: Dr. Pederson follows regularly; S/P PTCA and stenting at [facility], [place], 2000 Last Assessment & Plan: Currently she has no chest pain or SOB. 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 09/29/2019 Diverticulosis of colon (wit hout mention of hemorrhage) 04/30/2009 External hemorrhoids without mention of 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 04/30/2009 Internal hemorrhoids without mention of 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 04/30/2009 documented as of this encounter (statuses as of 12/10/2022) [facility] History of Past illness Narrative* Problem Noted Date Diagnosed Date Resolved Date SHERLYN (acute kidney injury) 09/29/2019 Last Assessment & Plan: Assessment: DKA induced with dehydration PLAN: Volume resuscitated, IVF now KVO Tolerating PO diet Monitor BUN/Cr for further changes DKA (diabetic ketoacidoses) 09/28/2019 10/18/2020 Last Assessment & Plan: 2/ 2 Insulin Pump malfunction. Hyperglycemia On admission with CBG > 600 and AG 26 - now resolved. PLAN: Endocrinology consulted AG closed, insulin infusion stopped- back on her insulin pump now Dc home with accucheck / home insulin pump therapy and fup recs Other dysphagia 07/18/2019 09/29/2019 Vertigo 08/12/2015 09/29/2019 BPPV (benign paroxysmal positional vertigo) 02/11/2015 09/29/2019 Vertigo 02/02/2013 06/25/2015 Thoracic or lumbosacral neur itis or radiculitis, unspecified 03/01/2012 09/29/2019 Abnormality of gait 03/01/2012 06/25/19 16 Pain in joint, lower leg 01/21/201010/2015 Routine general medical exam ination at a health care facility 04/30/2009 06/25/2015 Overview: 04/30/2009, establish from Dr. Givens 06/25/2010, yearly check-up (60 minutes) Routine gynecological examination 04/30/2009 06/25/2015 Overview: [facility] Schmitz, [facility], [facility] [place] Tenosynovitis of foot and ankle 06/29/2008 04/30/2009 Acute bronchitis 05/18/2008 04/30/2009 Anemia, unspecified 12/04/2006 09/29/19 20 Cellulitis and abscess of foot, except toes 08/24/2006 04/30/2009 Onychia and paronychia of toe 08/11/2006 04/30/2009 Pain in joint, shoulder region 05/22/2006 04/30/2009 Sprain of neck 05/22/2006 04/30/2009 DUPUYTRENS CONTRACTURES 03/23/200604/20 Dermatophytosis of nail 09/04/200504/20 CARPAL TUNNEL BILATERRAL 08/08/200502/2020 Nonspecific abnormal results of liver function study 08/08/2005 04/30/2009 OVERWEIGHT 08/08/2005 04/30/2009 Ingrowing nail 03/20/2005 04/30/2009 Pain in limb 03/20/2005 04/30/2009 Allergic Rhinitis, Cause Unspecified 01/13/2005 06/25/2015 Coronary artery disease invo lving [place] coronary artery 09/29/2019 Overview: Dr. Pederson follows regularly; S/P PTCA and stenting at [facility], [place], 2000 Last Assessment & Plan: Currently she has no chest pain or SOB. 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 09/29/2019 Diverticulosis of colon (wit hout mention of hemorrhage) 04/30/2009 External hemorrhoids without mention of 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 04/30/2009 Internal hemorrhoids without mention of 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 04/30/2009 documented as of this encounter (statuses as of 12/18/2022) [facility] History of Past illness Narrative* Problem Noted Date Diagnosed Date Resolved Date SHERLYN (acute kidney injury) 09/29/2019 Last Assessment & Plan: Assessment: DKA induced with dehydration PLAN: Volume resuscitated, IVF now KVO Tolerating PO diet Monitor BUN/Cr for further changes DKA (diabetic ketoacidoses) 09/28/2019 10/18/2020 Last Assessment & Plan: 2/ 2 Insulin Pump malfunction. Hyperglycemia On admission with CBG > 600 and AG 26 - now resolved. PLAN: Endocrinology consulted AG closed, insulin infusion stopped- back on her insulin pump now Dc home with accucheck / home insulin pump therapy and fup recs Other dysphagia 07/18/2019 09/29/2019 Vertigo 08/12/2015 09/29/2019 BPPV (benign paroxysmal positional vertigo) 02/11/2015 09/29/2019 Vertigo 02/02/2013 06/25/2015 Thoracic or lumbosacral neur itis or radiculitis, unspecified 03/01/2012 09/29/2019 Abnormality of gait 03/01/2012 06/25/19 16 Pain in joint, lower leg 01/21/201010/2015 Routine general medical exam ination at a health care facility 04/30/2009 06/25/2015 Overview: 04/30/2009, establish from Dr. Givens 06/25/2010, yearly check-up (60 minutes) Routine gynecological examination 04/30/2009 06/25/2015 Overview: [facility] Schmitz, [facility] [place] Tenosynovitis of foot and ankle 06/29/2008 04/30/2009 Acute bronchitis 05/18/2008 04/30/2009 Anemia, unspecified 12/04/2006 09/29/19 20 Cellulitis and abscess of foot, except toes 08/24/2006 04/30/2009 Onychia and paronychia of toe 08/11/2006 04/30/2009 Pain in joint, shoulder region 05/22/2006 04/30/2009 Sprain of neck 05/22/2006 04/30/2009 DUPUYTRENS CONTRACTURES 03/23/200604/20 Dermatophytosis of nail 09/04/200504/20 CARPAL TUNNEL BILATERRAL 08/08/200502/2020 Nonspecific abnormal results of liver function study 08/08/2005 04/30/2009 OVERWEIGHT 08/08/2005 04/30/2009 Ingrowing nail 03/20/2005 04/30/2009 Pain in limb 03/20/2005 04/30/2009 Allergic Rhinitis, Cause Unspecified 01/13/2005 06/25/2015 Coronary artery disease invo lving [place] coronary artery 09/29/2019 Overview: Dr. Pederson follows regularly; S/P PTCA and stenting at [facility], [place], 2000 Last Assessment & Plan: Currently she has no chest pain or SOB. 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 09/29/2019 Diverticulosis of colon (wit hout mention of hemorrhage) 04/30/2009 External hemorrhoids without mention of 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 04/30/2009 Internal hemorrhoids without mention of 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 04/30/2009 documented as of this encounter (statuses as of 01/10/2023) [facility] History of Past illness Narrative* Problem Noted Date Diagnosed Date Resolved Date SHERLYN (acute kidney injury) 09/29/2019 Last Assessment & Plan: Assessment: DKA induced with dehydration PLAN: Volume resuscitated, IVF now KVO Tolerating PO diet Monitor BUN/Cr for further changes DKA (diabetic ketoacidoses) 09/28/2019 10/18/2020 Last Assessment & Plan: 2/ 2 Insulin Pump malfunction. Hyperglycemia On admission with CBG > 600 and AG 26 - now resolved. PLAN: Endocrinology consulted AG closed, insulin infusion stopped- back on her insulin pump now Dc home with accucheck / home insulin pump therapy and fup recs Other dysphagia 07/18/2019 09/29/2019 Vertigo 08/12/2015 09/29/2019 BPPV (benign paroxysmal positional vertigo) 02/11/2015 09/29/2019 Vertigo 02/02/2013 06/25/2015 Thoracic or lumbosacral neur itis or radiculitis, unspecified 03/01/2012 09/29/2019 Abnormality of gait 03/01/2012 06/25/19 16 Pain in joint, lower leg 01/21/201010/2015 Routine general medical exam ination at a health care facility 04/30/2009 06/25/2015 Overview: 04/30/2009, establish from Dr. Givens 06/25/2010, yearly check-up (60 minutes) Routine gynecological examination 04/30/2009 06/25/2015 Overview: Dr[facility] Schmitz, [facility], [facility] Tenosynovitis of foot and ankle 06/29/2008 04/30/2009 Acute bronchitis 05/18/2008 04/30/2009 Anemia, unspecified 12/04/2006 09/29/19 20 Cellulitis and abscess of foot, except toes 08/24/2006 04/30/2009 Onychia and paronychia of toe 08/11/2006 04/30/2009 Pain in joint, shoulder region 05/22/2006 04/30/2009 Sprain of neck 05/22/2006 04/30/2009 DUPUYTRENS CONTRACTURES 03/23/200604/20 Dermatophytosis of nail 09/04/200504/20 CARPAL TUNNEL BILATERRAL 08/08/200502/2020 Nonspecific abnormal results of liver function study 08/08/2005 04/30/2009 OVERWEIGHT 08/08/2005 04/30/2009 Ingrowing nail 03/20/2005 04/30/2009 Pain in limb 03/20/2005 04/30/2009 Allergic Rhinitis, Cause Unspecified 01/13/2005 06/25/2015 Coronary artery disease invo lving [place] coronary artery 09/29/2019 Overview: Dr. Pederson follows regularly; S/P PTCA and stenting at [facility] [place], 2000 Last Assessment & Plan: Currently she has no chest pain or SOB. 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 09/29/2019 Diverticulosis of colon (wit hout mention of hemorrhage) 04/30/2009 External hemorrhoids without mention of 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 04/30/2009 Internal hemorrhoids without mention of 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 04/30/2009 documented as of this encounter (statuses as of 02/22/2023) [facility] History of Past illness Narrative* Problem Noted Date Diagnosed Date Resolved Date SHERLYN (acute kidney injury) 09/29/2019 Last Assessment & Plan: Assessment: DKA induced with dehydration PLAN: Volume resuscitated, IVF now KVO Tolerating PO diet Monitor BUN/Cr for further changes DKA (diabetic ketoacidoses) 09/28/2019 10/18/2020 Last Assessment & Plan: 2/ 2 Insulin Pump malfunction. Hyperglycemia On admission with CBG > 600 and AG 26 - now resolved. PLAN: Endocrinology consulted AG closed, insulin infusion stopped- back on her insulin pump now Dc home with accucheck / home insulin pump therapy and fup recs Other dysphagia 07/18/2019 09/29/2019 Vertigo 08/12/2015 09/29/2019 BPPV (benign paroxysmal positional vertigo) 02/11/2015 09/29/2019 Vertigo 02/02/2013 06/25/2015 Thoracic or lumbosacral neur itis or radiculitis, unspecified 03/01/2012 09/29/2019 Abnormality of gait 03/01/2012 06/25/19 16 Pain in joint, lower leg 01/21/201010/2015 Routine general medical exam ination at a health care facility 04/30/2009 06/25/2015 Overview: 04/30/2009, establish from Dr. Givens 06/25/2010, yearly check-up (60 minutes) Routine gynecological examination 04/30/2009 06/25/2015 Overview: [facility] Schmit[facility], [facility] [place] Tenosynovitis of foot and ankle 06/29/2008 04/30/2009 Acute bronchitis 05/18/2008 04/30/2009 Anemia, unspecified 12/04/2006 09/29/19 20 Cellulitis and abscess of foot, except toes 08/24/2006 04/30/2009 Onychia and paronychia of toe 08/11/2006 04/30/2009 Pain in joint, shoulder region 05/22/2006 04/30/2009 Sprain of neck 05/22/2006 04/30/2009 DUPUYTRENS CONTRACTURES 03/23/200604/20 Dermatophytosis of nail 09/04/200504/20 CARPAL TUNNEL BILATERRAL 08/08/200502/2020 Nonspecific abnormal results of liver function study 08/08/2005 04/30/2009 OVERWEIGHT 08/08/2005 04/30/2009 Ingrowing nail 03/20/2005 04/30/2009 Pain in limb 03/20/2005 04/30/2009 Allergic Rhinitis, Cause Unspecified 01/13/2005 06/25/2015 Coronary artery disease invo lving [place] coronary artery 09/29/2019 Overview: Dr. Pederson follows regularly; S/P PTCA and stenting at [facility], [place], 2000 Last Assessment & Plan: Currently she has no chest pain or SOB. 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 09/29/2019 Diverticulosis of colon (wit hout mention of hemorrhage) 04/30/2009 External hemorrhoids without mention of 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 04/30/2009 Internal hemorrhoids without mention of 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 04/30/2009 documented as of this encounter (statuses as of 02/22/2023) [facility] History of Past illness Narrative* Problem Noted Date Diagnosed Date Resolved Date SHERLYN (acute kidney injury) 09/29/2019 Last Assessment & Plan: Assessment: DKA induced with dehydration PLAN: Volume resuscitated, IVF now KVO Tolerating PO diet Monitor BUN/Cr for further changes DKA (diabetic ketoacidoses) 09/28/2019 10/18/2020 Last Assessment & Plan: 2/ 2 Insulin Pump malfunction. Hyperglycemia On admission with CBG > 600 and AG 26 - now resolved. PLAN: Endocrinology consulted AG closed, insulin infusion stopped- back on her insulin pump now Dc home with accucheck / home insulin pump therapy and fup recs Other dysphagia 07/18/2019 09/29/2019 Vertigo 08/12/2015 09/29/2019 BPPV (benign paroxysmal positional vertigo) 02/11/2015 09/29/2019 Vertigo 02/02/2013 06/25/2015 Thoracic or lumbosacral neur itis or radiculitis, unspecified 03/01/2012 09/29/2019 Abnormality of gait 03/01/2012 06/25/19 16 Pain in joint, lower leg 01/21/201010/2015 Routine general medical exam ination at a health care facility 04/30/2009 06/25/2015 Overview: 04/30/2009, establish from Dr. Givens 06/25/2010, yearly check-up (60 minutes) Routine gynecological examination 04/30/2009 06/25/2015 Overview: [facility] Schmitz, [facility] [place] Tenosynovitis of foot and ankle 06/29/2008 04/30/2009 Acute bronchitis 05/18/2008 04/30/2009 Anemia, unspecified 12/04/2006 09/29/19 20 Cellulitis and abscess of foot, except toes 08/24/2006 04/30/2009 Onychia and paronychia of toe 08/11/2006 04/30/2009 Pain in joint, shoulder region 05/22/2006 04/30/2009 Sprain of neck 05/22/2006 04/30/2009 DUPUYTRENS CONTRACTURES 03/23/200604/20 Dermatophytosis of nail 09/04/200504/20 CARPAL TUNNEL BILATERRAL 08/08/200502/2020 Nonspecific abnormal results of liver function study 08/08/2005 04/30/2009 OVERWEIGHT 08/08/2005 04/30/2009 Ingrowing nail 03/20/2005 04/30/2009 Pain in limb 03/20/2005 04/30/2009 Allergic Rhinitis, Cause Unspecified 01/13/2005 06/25/2015 Coronary artery disease invo lving [place] coronary artery 09/29/2019 Overview: Dr. Pederson follows regularly; S/P PTCA and stenting at [facility] [place], 2000 Last Assessment & Plan: Currently she has no chest pain or SOB. 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 09/29/2019 Diverticulosis of colon (wit hout mention of hemorrhage) 04/30/2009 External hemorrhoids without mention of 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 04/30/2009 Internal hemorrhoids without mention of 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 04/30/2009 documented as of this encounter (statuses as of 02/24/2023) [facility] History of Past illness Narrative* Problem Noted Date Diagnosed Date Resolved Date SHERLYN (acute kidney injury) 09/29/2019 Last Assessment & Plan: Assessment: DKA induced with dehydration PLAN: Volume resuscitated, IVF now KVO Tolerating PO diet Monitor BUN/Cr for further changes DKA (diabetic ketoacidoses) 09/28/2019 10/18/2020 Last Assessment & Plan: 2/ 2 Insulin Pump malfunction. Hyperglycemia On admission with CBG > 600 and AG 26 - now resolved. PLAN: Endocrinology consulted AG closed, insulin infusion stopped- back on her insulin pump now Dc home with accucheck / home insulin pump therapy and fup recs Other dysphagia 07/18/2019 09/29/2019 Vertigo 08/12/2015 09/29/2019 BPPV (benign paroxysmal positional vertigo) 02/11/2015 09/29/2019 Vertigo 02/02/2013 06/25/2015 Thoracic or lumbosacral neur itis or radiculitis, unspecified 03/01/2012 09/29/2019 Abnormality of gait 03/01/2012 06/25/19 16 Pain in joint, lower leg 01/21/201010/2015 Routine general medical exam ination at a health care facility 04/30/2009 06/25/2015 Overview: 04/30/2009, establish from Dr. Givens 06/25/2010, yearly check-up (60 minutes) Routine gynecological examination 04/30/2009 06/25/2015 Overview: Dr[facility] Schmit[facility], [facility] [place] Tenosynovitis of foot and ankle 06/29/2008 04/30/2009 Acute bronchitis 05/18/2008 04/30/2009 Anemia, unspecified 12/04/2006 09/29/19 20 Cellulitis and abscess of foot, except toes 08/24/2006 04/30/2009 Onychia and paronychia of toe 08/11/2006 04/30/2009 Pain in joint, shoulder region 05/22/2006 04/30/2009 Sprain of neck 05/22/2006 04/30/2009 DUPUYTRENS CONTRACTURES 03/23/200604/20 Dermatophytosis of nail 09/04/200504/20 CARPAL TUNNEL BILATERRAL 08/08/200502/2020 Nonspecific abnormal results of liver function study 08/08/2005 04/30/2009 OVERWEIGHT 08/08/2005 04/30/2009 Ingrowing nail 03/20/2005 04/30/2009 Pain in limb 03/20/2005 04/30/2009 Allergic Rhinitis, Cause Unspecified 01/13/2005 06/25/2015 Coronary artery disease invo lving [place] coronary artery 09/29/2019 Overview: Dr. Pederson follows regularly; S/P PTCA and stenting at [facility], [place], 2000 Last Assessment & Plan: Currently she has no chest pain or SOB. 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 09/29/2019 Diverticulosis of colon (wit hout mention of hemorrhage) 04/30/2009 External hemorrhoids without mention of 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 04/30/2009 Internal hemorrhoids without mention of 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 04/30/2009 documented as of this encounter (statuses as of 02/24/2023) [facility] History of Past illness Narrative* Problem Noted Date Diagnosed Date Resolved Date SHERLYN (acute kidney injury) 09/29/2019 Last Assessment & Plan: Assessment: DKA induced with dehydration PLAN: Volume resuscitated, IVF now KVO Tolerating PO diet Monitor BUN/Cr for further changes DKA (diabetic ketoacidoses) 09/28/2019 10/18/2020 Last Assessment & Plan: 2/ 2 Insulin Pump malfunction. Hyperglycemia On admission with CBG > 600 and AG 26 - now resolved. PLAN: Endocrinology consulted AG closed, insulin infusion stopped- back on her insulin pump now Dc home with accucheck / home insulin pump therapy and fup recs Other dysphagia 07/18/2019 09/29/2019 Vertigo 08/12/2015 09/29/2019 BPPV (benign paroxysmal positional vertigo) 02/11/2015 09/29/2019 Vertigo 02/02/2013 06/25/2015 Thoracic or lumbosacral neur itis or radiculitis, unspecified 03/01/2012 09/29/2019 Abnormality of gait 03/01/2012 06/25/19 16 Pain in joint, lower leg 01/21/201010/2015 Routine general medical exam ination at a health care facility 04/30/2009 06/25/2015 Overview: 04/30/2009, establish from Dr. Givens 06/25/2010, yearly check-up (60 minutes) Routine gynecological examination 04/30/2009 06/25/2015 Overview: Dr. Schmitz, [facility] Tenosynovitis of foot and ankle 06/29/2008 04/30/2009 Acute bronchitis 05/18/2008 04/30/2009 Anemia, unspecified 12/04/2006 09/29/19 20 Cellulitis and abscess of foot, except toes 08/24/2006 04/30/2009 Onychia and paronychia of toe 08/11/2006 04/30/2009 Pain in joint, shoulder region 05/22/2006 04/30/2009 Sprain of neck 05/22/2006 04/30/2009 DUPUYTRENS CONTRACTURES 03/23/200604/20 Dermatophytosis of nail 09/04/200504/20 CARPAL TUNNEL BILATERRAL 08/08/200502/2020 Nonspecific abnormal results of liver function study 08/08/2005 04/30/2009 OVERWEIGHT 08/08/2005 04/30/2009 Ingrowing nail 03/20/2005 04/30/2009 Pain in limb 03/20/2005 04/30/2009 Allergic Rhinitis, Cause Unspecified 01/13/2005 06/25/2015 Coronary artery disease invo lving [place] coronary artery 09/29/2019 Overview: Dr. Pederson follows regularly; S/P PTCA and stenting at [facility], [place], 2001 Last Assessment & Plan: Currently she has no chest pain or SOB. 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 09/29/2019 Diverticulosis of colon (wit hout mention of hemorrhage) 04/30/2009 External hemorrhoids without mention of 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 04/30/2009 Internal hemorrhoids without mention of 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 04/30/2009 documented as of this encounter (statuses as of 03/05/2023) [facility] History of Past illness Narrative* Problem Noted Date Diagnosed Date Resolved Date SHERLYN (acute kidney injury) 09/29/2019 Last Assessment & Plan: Assessment: DKA induced with dehydration PLAN: Volume resuscitated, IVF now KVO Tolerating PO diet Monitor BUN/Cr for further changes DKA (diabetic ketoacidoses) 09/28/2019 10/18/2020 Last Assessment & Plan: 2/ 2 Insulin Pump malfunction. Hyperglycemia On admission with CBG > 600 and AG 26 - now resolved. PLAN: Endocrinology consulted AG closed, insulin infusion stopped- back on her insulin pump now Dc home with accucheck / home insulin pump therapy and fup recs Other dysphagia 07/18/2019 09/29/2019 Vertigo 08/12/2015 09/29/2019 BPPV (benign paroxysmal positional vertigo) 02/11/2015 09/29/2019 Vertigo 02/02/2013 06/25/2015 Thoracic or lumbosacral neur itis or radiculitis, unspecified 03/01/2012 09/29/2019 Abnormality of gait 03/01/2012 06/25/19 16 Pain in joint, lower leg 01/21/201010/2015 Routine general medical exam ination at a health care facility 04/30/2009 06/25/2015 Overview: 04/30/2009, establish from Dr. Givens 06/25/2010, yearly check-up (60 minutes) Routine gynecological examination 04/30/2009 06/25/2015 Overview: [facility] Schmit[facility], [facility], [facility] [place] Tenosynovitis of foot and ankle 06/29/2008 04/30/2009 Acute bronchitis 05/18/2008 04/30/2009 Anemia, unspecified 12/04/2006 09/29/19 20 Cellulitis and abscess of foot, except toes 08/24/2006 04/30/2009 Onychia and paronychia of toe 08/11/2006 04/30/2009 Pain in joint, shoulder region 05/22/2006 04/30/2009 Sprain of neck 05/22/2006 04/30/2009 DUPUYTRENS CONTRACTURES 03/23/200604/20 Dermatophytosis of nail 09/04/200504/20 CARPAL TUNNEL BILATERRAL 08/08/200502/2020 Nonspecific abnormal results of liver function study 08/08/2005 04/30/2009 OVERWEIGHT 08/08/2005 04/30/2009 Ingrowing nail 03/20/2005 04/30/2009 Pain in limb 03/20/2005 04/30/2009 Allergic Rhinitis, Cause Unspecified 01/13/2005 06/25/2015 Coronary artery disease invo lving [place] coronary artery 09/29/2019 Overview: Dr. Pederson follows regularly; S/P PTCA and stenting at [facility], [place], 2001 Last Assessment & Plan: Currently she has no chest pain or SOB. 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 09/29/2019 Diverticulosis of colon (wit hout mention of hemorrhage) 04/30/2009 External hemorrhoids without mention of 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 04/30/2009 Internal hemorrhoids without mention of 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 04/30/2009 documented as of this encounter (statuses as of 03/10/2023) [facility] History of Past illness Narrative* Problem Noted Date Diagnosed Date Resolved Date SHERLYN (acute kidney injury) 09/29/2019 Last Assessment & Plan: Assessment: DKA induced with dehydration PLAN: Volume resuscitated, IVF now KVO Tolerating PO diet Monitor BUN/Cr for further changes DKA (diabetic ketoacidoses) 09/28/2019 10/18/2020 Last Assessment & Plan: 2/ 2 Insulin Pump malfunction. Hyperglycemia On admission with CBG > 600 and AG 26 - now resolved. PLAN: Endocrinology consulted AG closed, insulin infusion stopped- back on her insulin pump now Dc home with accucheck / home insulin pump therapy and fup recs Other dysphagia 07/18/2019 09/29/2019 Vertigo 08/12/2015 09/29/2019 BPPV (benign paroxysmal positional vertigo) 02/11/2015 09/29/2019 Vertigo 02/02/2013 06/25/2015 Thoracic or lumbosacral neur itis or radiculitis, unspecified 03/01/2012 09/29/2019 Abnormality of gait 03/01/2012 06/25/19 16 Pain in joint, lower leg 01/21/201010/2015 Routine general medical exam ination at a health care facility 04/30/2009 06/25/2015 Overview: 04/30/2009, establish from Dr. Givens 06/25/2010, yearly check-up (60 minutes) Routine gynecological examination 04/30/2009 06/25/2015 Overview: Dr[facility] Schmitz, [facility] [place] Tenosynovitis of foot and ankle 06/29/2008 04/30/2009 Acute bronchitis 05/18/2008 04/30/2009 Anemia, unspecified 12/04/2006 09/29/19 20 Cellulitis and abscess of foot, except toes 08/24/2006 04/30/2009 Onychia and paronychia of toe 08/11/2006 04/30/2009 Pain in joint, shoulder region 05/22/2006 04/30/2009 Sprain of neck 05/22/2006 04/30/2009 DUPUYTRENS CONTRACTURES 03/23/200604/20 Dermatophytosis of nail 09/04/200504/20 CARPAL TUNNEL BILATERRAL 08/08/200502/2020 Nonspecific abnormal results of liver function study 08/08/2005 04/30/2009 OVERWEIGHT 08/08/2005 04/30/2009 Ingrowing nail 03/20/2005 04/30/2009 Pain in limb 03/20/2005 04/30/2009 Allergic Rhinitis, Cause Unspecified 01/13/2005 06/25/2015 Coronary artery disease invo lving [place] coronary artery 09/29/2019 Overview: Dr. Pederson follows regularly; S/P PTCA and stenting at [facility], [place], 2000 Last Assessment & Plan: Currently she has no chest pain or SOB. 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 09/29/2019 Diverticulosis of colon (wit hout mention of hemorrhage) 04/30/2009 External hemorrhoids without mention of 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 04/30/2009 Internal hemorrhoids without mention of 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 04/30/2009 documented as of this encounter (statuses as of 03/18/2023) [facility] Diagnosis Rheumatoid arthritis of multiple sites with negative rheumatoid factor- 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 systemic 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 Encounter for long-term (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 of steroids correction (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 of aspirin History of stroke Transient ischemic attack (TIA), and cerebral infarction without residual deficits History of rheumatoid arthritis Personal history of arthritis Elevated hemidiaphragm Disorders of diaphragm BONILLA (nonalcoholic steatohepatitis) Other chronic nonalcoholic liver disease Fatty liver Other chronic nonalcoholic liver disease Thoracic degenerative disc disease Degeneration of thoracic or thoracolumbar intervertebral disc Rotator cuff arthropathy of both shoulders Osteoarthritis of both wrists, unspecified osteoarthritis type Osteoarthritis of both hands, unspecified osteoarthritis type Osteoarthritis of cervical spine, unspecified spinal osteoarthritis 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 status Lumbar degenerative disc disease Degeneration of lumbar or lumbosacral intervertebral disc [facility] Diagnosis Gastroesophageal reflux disease without esophagitis Esophageal reflux [facility] Diagnosis Onychomycosis- Primary Dermatophytosis of nail Pain in toe of left foot Pain in limb Pain in toe of right foot Pain in limb Diabetic polyneuropathy associated with type 2 diabetes mellitus (HCC) Hyperkeratosis Acquired keratoderma Hammertoe of left foot [facility] Diagnosis Chronic constipation- Primary Unspecified constipation Bloating Flatulence, eructation, and gas pain [facility] Diagnosis Bilateral carotid artery stenosis- Primary Occlusion and stenosis of carotid artery without mention of cerebral infarction [facility] Diagnosis Encounter for screening mammogram for malignant neoplasm of breast Other screening mammogram [facility] Diagnosis Restless legs Restless legs syndrome (RLS) Mixed hyperlipidemia [facility] Diagnosis Chronic constipation- Primary Unspecified constipation Type 1 diabetes mellitus with diabetic neuropathy (HCC) Type I (juvenile type) diabetes mellitus with neurological manifestations, not stated as uncontrolled Essential hypertension Unspecified essential hypertension [facility] Diagnosis Bilateral carotid artery stenosis- Primary Occlusion and stenosis of carotid artery without mention of cerebral infarction documented in this encounter [facility] Diagnosis Hyperkeratosis- Primary Acquired keratoderma Hammertoe of right foot [facility] Diagnosis Encounter for screening mammogram for malignant neoplasm of breast- Primary Other screening mammogram [facility] Diagnosis Essential hypertension- Primary Unspecified essential hypertension 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) Anxiety state Anxiety state, unspecified Left shoulder pain, unspecified chronicity Chronic constipation Unspecified constipation Vitamin D deficiency Unspecified vitamin D deficiency [facility] Diagnosis Anxiety state Anxiety state, unspecified Restless legs Restless legs syndrome (RLS) Type 1 diabetes mellitus with diabetic neuropathy (HCC) Type I (juvenile type) diabetes mellitus with neurological manifestations, not stated as uncontrolled Brittle diabetes (HCC) Type II or unspecified type diabetes mellitus without mention of 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, not stated as uncontrolled [facility] Contusion of lesser toe of right foot without damage to nail, initial encounter- Primary Onychomycosis Dermatophytosis of nail Pain in toe of left foot Pain in limb Pain in toe of right foot Pain in limb Hyperkeratosis Acquired keratoderma [facility] Diagnosis Pain in right foot Pain in limb [facility] Diagnosis Urinary tract infection without hematuria, site unspecified- Primary [facility] Diagnosis Urinary tract infection without hematuria, site unspecified- Primary [facility] Diagnosis Hyperkeratosis- Primary Acquired keratoderma Onychomycosis Dermatophytosis of nail Pain in toe of left foot Pain in limb Pain in toe of right foot Pain in limb Diabetic polyneuropathy associated with type 2 diabetes mellitus (HCC) Hammertoe of right foot Hammertoe of left foot [facility] Diagnosis Anxiety state Anxiety state, unspecified [facility] Diagnosis Gastroesophageal reflux disease without esophagitis Esophageal reflux Essential hypertension Unspecified essential hypertension [facility] Diagnosis Hyperkeratosis- Primary Acquired keratoderma Diabetic polyneuropathy associated with type 2 diabetes mellitus (HCC) [facility] Diagnosis Essential hypertension- Primary Unspecified essential hypertension Type 1 diabetes mellitus with diabetic neuropathy (HCC) Type I (juvenile type) diabetes mellitus with neurological manifestations, not stated as uncontrolled Bilateral edema of lower extremity Edema Dysuria Proteinuria, unspecified type Dark yellow-colored urine Mixed hyperlipidemia [place] and callosities [facility] Diagnosis Acute cough [facility] Diagnosis Gastroesophageal reflux disease without esophagitis Esophageal reflux [facility] Diagnosis Acute cough [facility] Diagnosis Pneumonia of both lungs due to infectious organism, unspecified part of lung- Primary Mild intermittent asthma with acute exacerbation Unspecified asthma, with exacerbation [facility] Diagnosis Pneumonia of both lungs due to infectious organism, unspecified part of lung- Primary 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) [place] and callosities documented in this encounter [facility] Diagnosis Pneumonia of both lungs due to infectious organism, unspecified part of lung- Primary documented in this encounter [facility] Diagnosis Pneumonia of both lungs due to infectious organism, unspecified part of lung- Primary Shortness of breath Chest pain on breathing Painful respiration Cough, unspecified type documented in this encounter [facility] Diagnosis Anxiety state Anxiety state, unspecified documented in this encounter [facility] Diagnosis ILD (interstitial lung disease) (HCC)- Primary Postinflammatory pulmonary fibrosis documented in this encounter [facility] Diagnosis Restless legs Restless legs syndrome (RLS) documented in this encounter [facility] Diagnosis NSIP (nonspecific interstitial pneumonitis)- Primary Other specified alveolar and parietoalveolar pneumonopathies Fatty liver Other chronic nonalcoholic liver disease Hyperglycemia Other abnormal glucose Metabolic acidosis Acidosis Lumbar degenerative disc disease Degeneration of lumbar or lumbosacral intervertebral disc Osteoarthritis of cervical spine, unspecified spinal osteoarthritis 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 status Osteoarthritis of both hands, unspecified osteoarthritis type Osteoarthritis of both wrists, unspecified osteoarthritis type Rotator cuff arthropathy of both shoulders Thoracic degenerative disc disease Degeneration of thoracic or thoracolumbar intervertebral disc Positive D dimer Abnormal coagulation profile History of rheumatoid arthritis Personal history of arthritis History of stroke Transient ischemic attack (TIA), and cerebral infarction without residual deficits 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 terminal manager current use of non-steroidal anti-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 (NSAID) Encounter for long-term (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 of non-steroidal anti-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 Long-term use of high-risk medication Long-term use of Plaquenil On statin therapy [facility] Diagnosis Rheumatoid arthritis, involving unspecified site, unspecified whether rheumatoid factor present (HCC)- Primary Interstitial lung disease (HCC) Postinflammatory pulmonary fibrosis documented in this encounter [facility] Diagnosis Medicare annual wellness visit, subsequent- Primary Routine general medical examination at a health care facility Anxiety state Anxiety state, unspecified Essential hypertension Unspecified essential hypertension Type 1 diabetes mellitus with diabetic neuropathy (HCC) Type I (juvenile type) diabetes mellitus with neurological manifestations, not stated as uncontrolled Mixed hyperlipidemia Gastroesophageal reflux disease without esophagitis Esophageal reflux documented in this encounter [facility] Diagnosis Screening mammogram, encounter for- Primary documented in this encounter [facility] Diagnosis Secondary pulmonary arterial hypertension- Primary NSIP (nonspecific interstitial pneumonitis) Other specified alveolar and parietoalveolar pneumonopathies Mild intermittent asthma without 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 Unspecified asthma Interstitial lung disease Postinflammatory pulmonary fibrosis Screening for viral disease Special screening examination for unspecified viral disease Reactive airway disease without 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, unspecified asthma severity, unspecified whether persistent SOLE on CPAP Obstructive sleep apnea (adult) (pediatric) Restrictive lung disease Other diseases of lung, not elsewhere classified [facility] Diagnosis Bilateral carotid artery stenosis- Primary Occlusion and stenosis of carotid artery without mention of cerebral infarction documented in this encounter [facility] Diagnosis Left hip pain- Primary Pain in joint, pelvic region and thigh Fall, initial encounter Rheumatoid arthritis, involving unspecified site, unspecified whether rheumatoid factor present (HCC) Interstitial lung disease (HCC) Postinflammatory pulmonary fibrosis Cerebral infarction, unspecified mechanism (HCC) 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) [facility] Diagnosis NSIP (nonspecific interstitial pneumonitis) Other specified alveolar and parietoalveolar pneumonopathies Interstitial lung disease Postinflammatory pulmonary fibrosis [facility] Diagnosis Secondary pulmonary arterial hypertension [facility] Diagnosis NSIP (nonspecific interstitial pneumonitis) Other specified alveolar and parietoalveolar pneumonopathies Interstitial lung disease Postinflammatory pulmonary fibrosis [facility] Diagnosis Anxiety state Anxiety state, unspecified documented in this encounter [facility] Diagnosis Pulmonary fibrosis- Primary Postinflammatory pulmonary fibrosis Restrictive lung disease Other diseases of lung, not elsewhere classified SOLE on CPAP Obstructive sleep apnea (adult) (pediatric) Uncomplicated asthma, unspecified asthma severity, unspecified whether persistent Screening for viral disease Special screening examination for unspecified viral disease [facility] Diagnosis 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)- Primary Hypertension, unspecified type Insomnia, unspecified type Rheumatoid arthritis, involving unspecified site, unspecified whether rheumatoid factor present (HCC) Left hip pain Pain in joint, pelvic region and thigh documented in this encounter [facility] note* Diagnosis Rheumatoid arthritis of multiple sites with negative rheumatoid factor- Primary History of rheumatoid arthritis Personal history of arthritis History of stroke Transient ischemic attack (TIA), and cerebral infarction without residual deficits 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 correction current use of non-steroidal anti-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 (NSAID) Encounter for long-term (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 of non-steroidal anti-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 terminal manager current use of systemic steroids Encounter for long-term (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 of steroids Long-term use of high-risk medication Long-term use of Plaquenil On statin therapy Fatty liver Other chronic nonalcoholic liver disease Hyperchloremia Electrolyte and fluid disorders not elsewhere classified Hyperglycemia Other abnormal glucose Lumbar degenerative disc disease Degeneration of lumbar or lumbosacral intervertebral disc Osteoarthritis of cervical spine, unspecified spinal osteoarthritis 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 status Osteoarthritis of both hands, unspecified osteoarthritis type Osteoarthritis of both wrists, unspecified osteoarthritis type Rotator cuff arthropathy of both shoulders Thoracic degenerative disc disease Degeneration of thoracic or thoracolumbar intervertebral disc [facility] Diagnosis Screening mammogram, encounter for documented in this encounter [facility] note* Diagnosis Chest pain on breathing Painful respiration Shortness of breath Elevated d-dimer Abnormal coagulation profile documented in this encounter [facility] note* Diagnosis Seropositive rheumatoid arthritis (HCC)- Primary Rheumatoid arthritis Interstitial lung disease (HCC) Postinflammatory pulmonary fibrosis Long-term use of Plaquenil Encounter for long-term (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 of other medications Osteopenia of right hip documented in this encounter [facility] note* Diagnosis Osteopenia of right hip documented in this encounter [facility] for referral (narrative)* Outpatient Procedure (Routine) - Authorized Specialty Diagnoses / Procedures Referred By Contac t Referred To Contact [facility] Diagnoses Bilateral carotid artery stenosis Procedures US CAROTID ARTERIES MOAR VAS LAB DUPLEX SCAN EXTRACRANIAL ART COMPL BI STUDY Manuela Thomas, ASSEMBLER [employer].GRIPPER ATTACHER [address] [facility] [address] [place] [address] [facility] [address] [place] [address] Referral ID Status Reason Start Date Expiration Date Visits Requested Visits Authorized [id number] Authorized Auto-Generat ed Referral 10/15/2021 10/15/2022 1 1 [facility] for referral (narrative)* Diagnostic Procedure Only (Routine) - Closed Specialty Diagnoses / Procedures Referred By Contac t Referred To Contact BR IMAGING Diagnoses Encounter for screening mammogram for malignant neoplasm of breast Procedures CARLEE SCREENING SCREENING MAMMOGRAPHY BI 2-VIEW BREAST INC Sultana Diamond APRN.GRIPPER ATTACHER [address] [place] [address] [facility] [address] [place] [address] Referral ID Status Reason Start Date Expiration Date V isits Requested Visits Authorized [id number] Closed Auto-Generate d Referral 10/11/2021 11/10/2022 1 1 [facility] for referral (narrative)* Outpatient Procedure (Routine) - Pending Review Specialty Diagnoses / Procedures Referred By Contac t Referred To Contact [facility] Diagnoses Bilateral carotid artery stenosis Procedures US CAROTID ARTERIES OMAR VAS LAB DUPLEX SCAN EXTRACRANIAL ART COMPL BI STUDY Manuela Thomas APRN.GRIPPER ATTACHER [address] [facility] [address] [place] [address] [facility] [address] [place] [address] Referral ID Status Reason Start Date Expiration Date Visits Requested Visits Authorized [id number] Pending Review Auto-Generat ed Referral 08/07/2022 11/05/2022 1 1 [facility] for referral (narrative)* Diagnostic Procedure Only (Routine) - Closed Specialty Diagnoses / Procedures Referred By Contac t Referred To Contact BR IMAGING Diagnoses Encounter for screening mammogram for malignant neoplasm of breast Procedures CARLEE SCREENING SCREENING MAMMOGRAPHY BI 2-VIEW BREAST INC Sultana Diamond, ASSEMBLER [employer].GRIPPER ATTACHER [address] [place] [address] [facility] [address] INCLUDE [address] BEDS [facility] [place] [address] Referral ID Status Reason Start Date Expiration Date V isits Requested Visits Authorized [id number] Closed Auto-Generate d Referral 10/11/2021 11/10/2022 1 1 [facility] for referral (narrative)* Diagnostic Procedure Only (Routine) - Closed Specialty Diagnoses / Procedures Referred By Contac t Referred To Contact XR IMAGING Diagnoses Pain in right foot Procedures XR FOOT GENERAL 3V AP/LAT/OBL RIGHT RADEX FOOT COMPLETE MINIMUM 3 VIEWS Lauren Rangel [address] [place] [address] Xr Imaging Referral ID Status Reason Start Date Expiration Date V isits Requested Visits Authorized [id number] Closed Auto-Generate d Referral 12/27/2021 01/26/2023 1 1 [facility] for referral (narrative)* Outpatient Procedure (Routine) - Pending Review Specialty Diagnoses / Procedures Referred By Contac t Referred To Contact [facility] Diagnoses ILD (interstitial lung disease) (HCC) Procedures SIX MINUTE WALK CARDIOPULMONARY EXERCISE STRESS Manuela [place] APRN.CNP [address] [address] [facility] [address] [place] [address] Referral ID Status Reason Start Date Expiration Date Visits Requested Visits Authorized [id number] Pending Review Auto-Generat ed Referral 08/07/2022 09/06/2023 1 1 * Outpatient Procedure (Routine) - Pending Review Specialty Diagnoses / Procedures Referred By Contac t Referred To Contact [facility] Diagnoses ILD (interstitial lung disease) (HCC) Procedures LUNG DIFFUSION CAPACITY (DLCO) DIFFUSING CAPACITY Manuela [place] APRN.CNP [address] [address] [facility] [address] [place] [address] Referral ID Status Reason Start Date Expiration Date Visits Requested Visits Authorized [id number] Pending Review Auto-Generat ed Referral 08/07/2022 09/06/2023 1 1 * Outpatient Procedure (Routine) - Pending Review Specialty Diagnoses / Procedures Referred By Alyac t Referred To Contact [facility] Diagnoses ILD (interstitial lung disease) (HCC) Procedures SPIROMETRY WITH DILATOR IF OBSTRUCTED BRNCDILAT RSPSE SPMTRY PRE&POST-BRNCDILAT ADMN Manuela [place] APRN.CNP [address] [place] [address] [facility] [address] [place] [address] Referral ID Status Reason Start Date Expiration Date Visits Requested Visits Authorized [id number] Pending Review Auto-Generat ed Referral 08/07/2022 09/06/2023 1 1 [facility] for referral (narrative)* Consultation (Urgent) - New Request Specialty Diagnoses / Procedures Referred By Bridger rodriguez Referred To Contact Pulmonary Disease Diagnoses NSIP (nonspecific interstitial pneumonitis) Fatty liver Hyperglycemia Metabolic acidosis Lumbar degenerative disc disease Osteoarthritis of cervical spine, unspecified spinal osteoarthritis 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 status Osteoarthritis of both hands, unspecified osteoarthritis type Osteoarthritis of both wrists, unspecified osteoarthritis type Rotator cuff arthropathy of both shoulders Thoracic degenerative disc disease Positive D dimer History of rheumatoid arthritis History of stroke 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 terminal manager current use of non-steroidal anti-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 (NSAID) Long-term use of high-risk medication Long-term use of Plaquenil On statin therapy Leni Magallanes, Clinton Carmichael, [address] [place] [address] Ivan Pal MD [address] [place] [address] Referral ID Status Reason Start Date Expiration Date V isits Requested Visits Authorized [id number] New Request 09/29/2022 10/24/2023 1 1 [facility] for referral (narrative)* Diagnostic Procedure Only (Routine) - Authorized Specialty Diagnoses / Procedures Referred By Contac t Referred To Contact BR IMAGING Diagnoses Screening mammogram, encounter for Procedures CARLEE SCREENING SCREENING MAMMOGRAPHY BI 2-VIEW BREAST INC CAD Vida Pitt PA-C [address] [place] [address] [facility] [address] [place] [address] Referral ID Status Reason Start Date Expiration Date Visits Requested Visits Authorized [id number] Authorized Auto-Generat ed Referral 10/22/2022 11/21/2023 1 1 T [facility] for referral (narrative)* Diagnostic Procedure Only (Routine) - Closed Specialty Diagnoses / Procedures Referred By Contac t Referred To Contact BR IMAGING Diagnoses Screening mammogram, encounter for Procedures CARLEE SCREENING SCREENING MAMMOGRAPHY BI 2-VIEW BREAST INC CAD Vida Pitt PA-C [address] [place] [address] [facility] [address] [place] [address] Referral ID Status Reason Start Date Expiration Date V isits Requested Visits Authorized [id number] Closed Auto-Generate d Referral 10/22/2022 11/21/2023 1 1 [facility] for visit Narrative* Diagnostic Procedure Only (Routine) - Closed Specialty Diagnoses / Procedures Referred By Contac t Referred To Contact BR IMAGING Diagnoses Encounter for screening mammogram for malignant neoplasm of breast Procedures CARLEE SCREENING SCREENING MAMMOGRAPHY BI 2-VIEW BREAST INC CAD Sultana Harvey APRN.GRIPPER ATTACHER [address] [place] [address] [facility] [address] [place] [address] Referral ID Status Reason Start Date Expiration Date V isits Requested Visits Authorized [id number] Closed Auto-Generate d Referral 10/11/2021 11/10/2022 1 1 [facility] for visit Narrative* Diagnostic Procedure Only (Routine) - Closed Specialty Diagnoses / Procedures Referred By Contac t Referred To Contact XR IMAGING Diagnoses Pain in right foot Procedures XR FOOT GENERAL 3V AP/LAT/OBL RIGHT RADEX FOOT COMPLETE MINIMUM 3 [place] [address] [place] [address] Xr Imaging Referral ID Status Reason Start Date Expiration Date V isits Requested Visits Authorized [id number] Closed Auto-Generate d Referral 12/27/2021 01/26/2023 1 1 [facility] for visit Narrative* Diagnostic Procedure Only (Routine) - Closed Specialty Diagnoses / Procedures Referred By Contac t Referred To Contact BR IMAGING Diagnoses Screening mammogram, encounter for Procedures CARLEE SCREENING SCREENING MAMMOGRAPHY BI 2-VIEW BREAST INC CAD Vida Pitt PA-C [address] [place] [address] [facility] [address] [place] [address] Referral ID Status Reason Start Date Expiration Date V isits Requested Visits Authorized [id number] Closed Auto-Generate d Referral 10/22/2022 11/21/2023 1 1 [facility] Reason for Referral Status Reason Specialty Diagnoses / Procedures Referred By Contact Referred To Contact New Request Occupational Therapy Diagnoses Rheumatoid arthritis involving multiple sites with positive rheumatoid factor Antiplatelet or antithrombotic long-term use Fatigue, unspecified type History of rheumatoid arthritis History of stroke correction (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 of aspirin Asthma, unspecified asthma severity, unspecified whether complicated, unspecified whether persistent Essential hypertension Fatty liver Gastroesophageal reflux disease, esophagitis presence not specified Diabetic polyneuropathy associated with type 1 diabetes mellitus Dyslipidemia 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 Asthma, unspecified asthma severity, unspecified whether complicated, unspecified whether persistent Essential hypertension Fatty liver Gastroesophageal reflux disease, esophagitis presence not specified Diabetic polyneuropathy associated with type 1 diabetes mellitus Dyslipidemia 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 Cervicalgia Dorsalgia Bilateral hand pain Bilateral wrist pain Chronic pain of both shoulders Disorder of bone and cartilage Lumbar degenerative disc disease Osteoarthritis of both hands, unspecified osteoarthritis type Rotator cuff arthropathy of both shoulders Leni Magallanes, Clinton Carmichael, [address] [place] [address] Specialty Diagnoses / Procedures Referred By Contac t Referred To Contact Sultana Harvey APRN.GRIPPER ATTACHER [address] [place] [id number] Referral ID Status Reason Start Date Expiration Date V isits Requested Visits Authorized [id number] Authorized 08/27/2021 09/26/2022 1 1 Specialty Diagnoses / Procedures Referred By Contac t Referred To Contact Gastroenterology Diagnoses Chronic constipation Procedures CONSULT TO GASTROENTEROLOGY OFFICE/OUTPATIENT [facility] 60-74 MINUTES Sultana Harvey APRN.GRIPPER ATTACHER [address] [place] [address] Referral ID Status Reason Start Date Expiration Date Visits Requested Visits Authorized [id number] Authorized PCP Requested Referral 10/24/2021 10/24/2022 1 1 Specialty Diagnoses / Procedures Referred By Contac t Referred To Contact Podiatry Diagnoses Type 1 diabetes mellitus with diabetic neuropathy (HCC) [place] Procedures CONSULT TO PODIATRY OFFICE/OUTPATIENT [facility] 60-74 MINUTES Sultana Harvey APRN.GRIPPER ATTACHER [address] [place] [address] Referral ID Status Reason Start Date Expiration Date Visits Requested Visits Authorized [id number] Authorized PCP Requested Referral 06/09/2022 06/09/2023 1 1 Specialty Diagnoses / Procedures Referred By Contac t Referred To Contact Diagnoses Acute cough Clinton Heart, DO [address] [facility] [address] [place] [address] Referral ID Status Reason Start Date Expiration Date V isits Requested Visits Authorized [id number] Pending Review 1 1 Specialty Diagnoses / Procedures Referred By Contac t Referred To Contact Diagnoses Acute cough Sultana Harvey APRN.GRIPPER ATTACHER [address] [place] [address] Referral ID Status Reason Start Date Expiration Date Visits Re quested Visits Authorized [id number] Closed 1 1 Specialty Diagnoses / Procedures Referred By Contac t Referred To Contact Rheumatology Diagnoses Rheumatoid arthritis, involving unspecified site, unspecified whether rheumatoid factor present (HCC) Interstitial lung disease (HCC) Procedures CONSULT TO RHEUM/IMMUN DISEASE OFFICE/OUTPATIENT [facility] 60-74 MINUTES Sultana Harvey APRN.GRIPPER ATTACHER [address] [place] [address] Referral ID Status Reason Start Date Expiration Date Visits Requested Visits Authorized [id number] Authorized PCP Requested Referral 10/01/2022 10/01/2023 1 1 Specialty Diagnoses / Procedures Referred By Contac t Referred To Contact Cardiovascular Medicine Diagnoses Secondary pulmonary arterial hypertension Procedures ECHOCARDIOGRAM WI ECHO HEART XTHORACIC,COMPLETE W DOPPLER Ivan Pal MD [address] [place] [address] [facility] [address] [place] [address] Referral ID Status Reason Start Date Expiration Date V isits Requested Visits Authorized [id number] Auth Not Needed 11/12/2022 12/07/2023 1 1 Specialty Diagnoses / Procedures Referred By Contac t Referred To Contact Diagnoses NSIP (nonspecific interstitial pneumonitis) Interstitial lung disease Procedures PFT COMPLETE Ivan Pal MD [address] [place] [address] Referral ID Status Reason Start Date Expiration Date V isits Requested Visits Authorized [id number] Auth Not Needed 11/12/2022 12/07/2023 1 1 Specialty Diagnoses / Procedures Referred By Contac t Referred To Contact Diagnoses NSIP (nonspecific interstitial pneumonitis) Interstitial lung disease Procedures EXERCISE-6 MIN. WALK Ivan Pal MD [address] [place] [address] Referral ID Status Reason Start Date Expiration Date V isits Requested Visits Authorized [id number] Auth Not Needed 11/12/2022 12/07/2023 1 1 Specialty Diagnoses / Procedures Referred By Contac t Referred To Contact Diagnoses NSIP (nonspecific interstitial pneumonitis) Interstitial lung disease Procedures CT CHEST WITHOUT CONTRAST CHG DIAGNOSTIC COMPUTED TOMOGRAPHY THORAX W/O Ivan Orozco MD [address] [place] [address] Referral ID Status Reason Start Date Expiration Date V isits Requested Visits Authorized [id number] Auth Not Needed 11/12/2022 12/07/2023 1 1 Specialty Diagnoses / Procedures Referred By Contac t Referred To Contact Orthopedics Diagnoses Left hip pain Fall, initial encounter Procedures CONSULT TO ORTHOPAEDICS OFFICE/OUTPATIENT [facility] 60-74 MINUTES Older, CARLOS EDUARDO Weinberg.GRIPPER ATTACHER [address] [place] [address] Referral ID Status Reason Start Date Expiration Date Visits Requested Visits Authorized [id number] Authorized PCP Requested Referral 11/24/2022 11/24/2023 1 1 Specialty Diagnoses / Procedures Referred By Contac t Referred To Contact Computerized Tomography Scan Diagnoses NSIP (nonspecific interstitial pneumonitis) Interstitial lung disease Procedures CT CHEST WITHOUT CONTRAST CHG DIAGNOSTIC COMPUTED TOMOGRAPHY THORAX W/O Ivan Orozco MD [address] [place] [address] Scan [address] [place] [address] Referral ID Status Reason Start Date Expiration Date Visits Re quested Visits Authorized [id number] Closed 11/12/2022 12/07/2023 1 1 Referral ID Status Reason Start Date Expiration Date Visits Re quested Visits Authorized [id number] Closed 11/12/2022 12/07/2023 1 1 Specialty Diagnoses / Procedures Referred By Contac t Referred To Contact Pulmonary Disease Diagnoses NSIP (nonspecific interstitial pneumonitis) Interstitial lung disease Procedures EXERCISE-6 MIN. WALK Ivan Pal MD [address] [place] [address] [facility] Respiratory Therapy [address] [place] [address] Referral ID Status Reason Start Date Expiration Date Visits Re quested Visits Authorized [id number] Closed 11/12/2022 12/07/2023 1 1 Specialty Diagnoses / Procedures Referred By Contac t Referred To Contact Pulmonary Disease Diagnoses Pulmonary fibrosis Procedures WI PHYS/QHP SVCS OP PULM REHAB WO CONT OXIMTRY MNTR Ivan Pal MD [address] [place], [place] [id number] Referral ID Status Reason Start Date Expiration Date V isits Requested Visits Authorized [id number] New Request 01/08/2023 02/02/2024 1 1 Specialty Diagnoses / Procedures Referred By Contac t Referred To Contact Diagnoses Restrictive lung disease Pulmonary fibrosis Uncomplicated asthma, unspecified asthma severity, unspecified whether persistent Procedures PFT COMPLETE Ivan Pal MD [address] [place] [address] Referral ID Status Reason Start Date Expiration Date V isits Requested Visits Authorized [id number] Auth Not Needed 01/08/2023 02/02/2024 1 1 Specialty Diagnoses / Procedures Referred By Contac t Referred To Contact Diagnoses Restrictive lung disease Pulmonary fibrosis Uncomplicated asthma, unspecified asthma severity, unspecified whether persistent Procedures EXERCISE-6 MIN. 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) Procedures CONSULT TO ENDOCRINOLOGY OFFICE/OUTPATIENT NEW HIGH MDM 60-74 MINUTES Sultana Harvey APRN.GRIPPER ATTACHER [address] [place] [address] Referral ID Status Reason Start Date Expiration Date Visits Requested Visits Authorized [id number] Authorized PCP Requested Referral 01/09/2023 01/09/2024 1 1 Specialty Diagnoses / Procedures Referred By Bridger t Referred To Contact CT IMAGING Diagnoses Chest pain on breathing Shortness of breath Elevated d-dimer Procedures CT CHEST W IVCON PE DIAGNOSTIC COMPUTED TOMOGRAPHY THORAX W/CONTRAST Sultana Harvey APRN.GRIPPER ATTACHER [address] [place] [address] Ct Imaging [facility] Referral ID Status Reason Start Date Expiration Date V isits Requested Visits Authorized [id number] Closed Auto-Generate d Referral 08/05/2022 09/04/2023 1 1 History of Present Illness * Leni Magallanes, Clinton Carmichael, DO - 05/16/2019 10:15 AM EST History of Present Illness Due to complex issues I spent at least 60 minutes in face to face time with patient, more than 50% of that time was spent on counseling and coordination of care. Patient is being evaluated for an unstable chronic illness that increase morbidity and mortality. Due to patient's coexisting health problems and co- morbidities treatment is and will be very difficult. Review of Systems Constitutional: Positive for fatigue. HENT: Negative. Eyes: Negative. Respiratory: Negative. Cardiovascular: Negative. Gastrointestinal: Negative. Endocrine: Negative. Genitourinary: Negative. Musculoskeletal: Positive for arthralgias. Skin: Negative. Neurological: Positive for dizziness and light-headedness. History of 3 strokes with poor balance ever since and one stroke caused aphasia Hematological: Negative. Psychiatric/Behavioral: Positive for sleep disturbance. Vitals: There were no vitals taken for this visit. Physical Exam Vitals signs and nursing note reviewed. Constitutional: Appearance: Normal appearance. She is obese. HENT: Head: Normocephalic and atraumatic. Right Ear: External ear normal. Left Ear: External ear normal. Nose: Nose normal. Mouth/Throat: Mouth: Mucous membranes are moist. Pharynx: Oropharynx is clear. Eyes: Extraocular Movements: Extraocular movements intact. Conjunctiva/sclera: Conjunctivae normal. Pupils: Pupils are equal, round, and reactive to light. Neck: Musculoskeletal: Neck supple. Cardiovascular: Rate and Rhythm: Normal rate and regular rhythm. Pulses: Carotid pulses are 2+ on the right side and 2+ on the left side. Radial pulses are 2+ on the right side and 2+ on the left side. Heart sounds: Normal heart sounds. Comments: No subclavian or carotid bruits. Did not take off shows for exam. Pulmonary: Effort: Pulmonary effort is normal. Breath sounds: Normal breath sounds. Abdominal: General: Bowel sounds are normal. Palpations: Abdomen is soft. Musculoskeletal: Right shoulder: She exhibits decreased range of motion, tenderness and bony tenderness. Left shoulder: She exhibits decreased range of motion, tenderness and bony tenderness. Right elbow: She exhibits decreased range of motion. Left elbow: She exhibits decreased range of motion. Right wrist: She exhibits decreased range of motion and tenderness. Left wrist: She exhibits decreased range of motion and tenderness. Right hip: She exhibits decreased range of motion. Left hip: She exhibits decreased range of motion. Right knee: She exhibits decreased range of motion. Left knee: She exhibits decreased range of motion. Right ankle: She exhibits decreased range of motion. Left ankle: She exhibits decreased range of motion. Cervical back: She exhibits decreased range of motion and tenderness. Thoracic back: Normal. Lumbar back: She exhibits decreased range of motion and tenderness. Right upper arm: She exhibits tenderness. Left upper arm: She exhibits tenderness. Right forearm: Normal. Left forearm: Normal. Right hand: She exhibits decreased range of motion, tenderness and deformity. Left hand: She exhibits decreased range of motion, tenderness and deformity. Hands: Right upper leg: Normal. Left upper leg: Normal. Right lower leg: Normal. Left lower leg: Normal. Legs: Skin: General: Skin is warm and dry. Neurological: Mental Status: She is alert and oriented to person, place, and time. Cranial Nerves: Cranial nerves are intact. Motor: Weakness present. Gait: Gait abnormal. Comments: wheelchair Psychiatric: Mood and Affect: Mood normal. Behavior: Behavior normal. Thought Content: Thought content normal. Judgment: Judgment normal. Neurologic Exam Mental Status Oriented to person, place, and time. Cranial Nerves CN III, IV, Pupils are equal, round, and reactive to light. Assessment and Plan Encounter Diagnoses Name Primary? 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 Time was spent with the patient today in education in re: to all their medical conditions. A complete H&P&ROS was obtained and is either in this note or in the EHR. Please do not hesitate to contact me with any questions or concerns re: this patient. Past History Past medical, surgical, family, and social histories have been reviewed and updated with the patient today and are located elsewhere in the medical record. 2. Thank you for allowing me to participate in the care of your patient. With your permission I would like to F/U with your patient. 3. Differenetial Diagnosis includes but is not limited to Autoimmune Disease, Connective Tissue Disease, Collagen Vascular Disorder, Infection, and Neoplasm. 4. Lab and x-ray and F/U with me in 3 weeks 5. Monitor Vit D level every 6 -12 months if remains low rec: eval by endo 6. Rx given for PT/OT 7. Rx given for Plaquenil 200 mg 1 pill twice a day 8. Patient should have an eye exam prior to starting Plaquenil and every 6-12 months as long as taking Plaquenil 9. Patient was given educational material on RA. Different treatment options were discussed with the patient today. Patient should get the Shingrix vaccine if not already done 10. Patient given educational material on OA in the from of a pamphlet from the arthritis foundation. Patient told that PT and keeping ideal body wt would be the cornerstone of treatment 11. If patient continues to have trouble with back pain would rec: eval by spinal surgery and/or chronic pain management 12. If neck pain continues rec: eval by spinal surgery and/or chronic pain management 13. If shoulder and hand and wrist problems continue rec: ortho eval History of Present Illness Due to complex issues I spent at least ic minutes in face to face time with patient, more than 50% of that time was spent on counseling and coordination of care. Patient is being evaluated for an unstable chronic illness that increase morbidity and mortality. Due to patient's coexisting health problems and co- morbidities treatment is and will be very difficult. Patient has been on Plaquenil [id number]. I have been told that Tramadol is a high risk medication. Dx with RA 1993. Patient states herfingers are going crooked and they cramp up. After stroke pain had no pain. Patient has trouble with balance since stroke. Review of Systems Constitutional: Positive for fatigue. Musculoskeletal: Positive for arthralgias, back pain and gait problem. Neurological: Positive for dizziness and light-headedness. Poor balance since stroke Stroke times 3 1 slurred his speech. Psychiatric/Behavioral: Positive for sleep disturbance. Vitals: There were no vitals taken for this visit. Physical Exam Vitals signs and nursing note reviewed. Constitutional: Appearance: Normal appearance. She is obese. HENT: Head: Normocephalic and atraumatic. Right Ear: External ear normal. Left Ear: External ear normal. Nose: Nose normal. Mouth/Throat: Mouth: Mucous membranes are moist. Pharynx: Oropharynx is clear. Eyes: Extraocular Movements: Extraocular movements intact. Conjunctiva/sclera: Conjunctivae normal. Pupils: Pupils are equal, round, and reactive to light. Comments: glasses Neck: Musculoskeletal: Neck supple. Cardiovascular: Rate and Rhythm: Normal rate and regular rhythm. Pulses: Carotid pulses are 2+ on the right side and 2+ on the left side. Radial pulses are 2+ on the right side and 2+ on the left side. Heart sounds: Normal heart sounds. Comments: No subclavian or carotid bruits. Did not take shows for exam. Pulmonary: Effort: Pulmonary effort is normal. Breath sounds: Normal breath sounds. Abdominal: General: Bowel sounds are normal. Palpations: Abdomen is soft. Comments: Obese Musculoskeletal: Right shoulder: She exhibits decreased range of motion, tenderness and bony tenderness. Left shoulder: She exhibits decreased range of motion, tenderness and bony tenderness. Right elbow: She exhibits decreased range of motion. Left elbow: She exhibits decreased range of motion. Right wrist: She exhibits decreased range of motion and tenderness. Left wrist: She exhibits decreased range of motion and tenderness. Right hip: She exhibits decreased range of motion. Left hip: She exhibits decreased range of motion. Right knee: She exhibits decreased range of motion. Left knee: She exhibits decreased range of motion. Right ankle: She exhibits decreased range of motion. Left ankle: She exhibits decreased range of motion. Cervical back: She exhibits decreased range of motion and tenderness. Thoracic back: She exhibits decreased range of motion. Lumbar back: She exhibits decreased range of motion and tenderness. Back: Right upper arm: She exhibits tenderness. Left upper arm: She exhibits tenderness. Right forearm: Normal. Left forearm: Normal. Right hand: She exhibits decreased range of motion, tenderness and deformity. Left hand: She exhibits decreased range of motion, tenderness and deformity. Hands: Right upper leg: Normal. Left upper leg: Normal. Right lower leg: Normal. Left lower leg: Normal. Legs: Skin: General: Skin is warm and dry. Neurological: Mental Status: She is alert and oriented to person, place, and time. Cranial Nerves: Cranial nerves are intact. Motor: Weakness present. Gait: Gait abnormal. Comments: Wheel chair Psychiatric: Mood and Affect: Mood normal. Behavior: Behavior normal. Thought Content: Thought content normal. Judgment: Judgment normal. Neurologic Exam Mental Status Oriented to person, place, and time. Cranial Nerves CN III, IV, Pupils are equal, round, and reactive to light. Assessment and Plan 1. Time was spent with the patient today in education in re: to all their medical conditions. A complete H&P&ROS was obtained and is either in this note or in the EHR. Please do not hesitate to contact me with any questions or concerns re: this patient. Past History Past medical, surgical, family, and social histories have been reviewed and updated with the patient today and are located elsewhere in the medical record. 2. Thank you for allowing me to participate in the care of your patient. With your permission I would like to F/U with your patient. 3. Differenetial Diagnosis includes but is not limited to Autoimmune Disease, Connective Tissue Disease, Collagen Vascular Disorder, Infection, and Neoplasm. 4. Lab and x-ray and F/U with me in 3 weeks 5. Monitor Vit D level every 6 -12 months if remains low rec: eval by endo 6. Rx given for Plaquenil 200 mg 1 pill twice a day 7. Patient should have an eye exam prior to starting Plaquenil and every 6-12 months as long as taking Plaquenil 8. If patient continues to have trouble with back pain would rec: eval by spinal surgery and/or chronic pain management 9. Patient given educational material on OA in the from of a pamphlet from the arthritis foundation. Patient told that PT and keeping ideal body wt would be the cornerstone of treatment 10. Patient was given educational material on RA. Different treatment options were discussed with the patient today. Patient should get the Shingrix vaccine if not already done 11. Methotrexate stopped for Elevated LFT 12. Humira and Enbrel and Simponi did not help 13. Orencia stopped due to stroke 14. Patient has been to PT/OT and is not doing HEP 15. Rx given for PT/OT 16. If neck pain continues rec: eval by spinal surgery and/or chronic pain management 17. If hand and wrist and shoulder problems continue rec: ortho eval 18. documented in this encounter Assessments Diagnosis Rheumatoid arthritis involving multiple sites with positive rheumatoid factor- Primary Antiplatelet or antithrombotic long-term use Encounter for long-term (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 of antiplatelets/antithrombotics Fatigue, unspecified type History of rheumatoid arthritis Personal history of arthritis History of stroke Transient ischemic attack (TIA), and cerebral infarction without residual deficits correction (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 of aspirin Asthma, unspecified asthma severity, unspecified whether complicated, unspecified whether persistent Essential hypertension Unspecified essential hypertension Fatty liver Other chronic nonalcoholic liver disease Gastroesophageal reflux disease, esophagitis presence not specified Diabetic polyneuropathy associated with type 1 diabetes mellitus Dyslipidemia Other and unspecified hyperlipidemia 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 Cervicalgia Dorsalgia Pain in thoracic spine Bilateral hand pain Pain in limb Bilateral wrist pain Chronic pain of both shoulders Pain in joint, shoulder region Disorder of bone and cartilage Disorder of bone and cartilage, unspecified Lumbar degenerative disc disease Degeneration of lumbar or lumbosacral intervertebral disc Osteoarthritis of both hands, unspecified osteoarthritis type Rotator cuff arthropathy of both shoulders Summary Purpose Family History No Family History Records FoundNo Family History Records FoundNo Family History Records FoundNo Family History Records FoundNo Family History Records Found Advance Directives No Advanced Directives Records FoundDocuments on File Type Date Recorded Patient Latrine Cleaner Expl anation Advance Directive(s) Advance Directive(s) 09/28/2019 9:21 PM Advance Directive(s) 11/10/2018 10:04 AM S canned 11-10-2018 Advance Directive(s) 11/10/2018 9:59 AM Advance Directive(s) 08/29/2015 7:09 AM Documents on File Type Date Recorded Patient Latrine Cleaner Expl anation Advance Directive(s) Advance Directive(s) 09/28/2019 9:21 PM Advance Directive(s) 11/10/2018 10:04 AM S canned 11-10-2018 Advance Directive(s) 11/10/2018 9:59 AM Advance Directive(s) 08/29/2015 7:09 AM Documents on File Type Date Recorded Patient Latrine Cleaner Expl anation Advance Directive(s) 11/10/2018 9:59 AM Documents on File Type Date Recorded Patient Latrine Cleaner Expl anation Advance Directive(s) 11/10/2018 9:59 AM Hospital Course Note HNO ID: [id number] Author: Damari Moore Service: Hospital Medicine Author Type: Physician Type: Discharge Summary Filed: 09/30/2019 3:46 PM Note Text: DISCHARGE SUMMARY PATIENT NAME: Mckayla Russo ADMISSION DATE: 09/28/2019 DISCHARGE DATE: 09/30/2019 Attending Physician: Liat Moore Code Status: Not on file Highest Readmission Risk Score: 22 The 30 day readmissions risk score is derived from an internally validated risk model which evaluates patient level characteristics, utilization history, medication orders and lab results up until the day of discharge. Patients with a score of 40 or above are considered highest risk for readmission. Specific patient level drivers will be listed at the bottom of the summary. HPI: 74 yo F with PMH HTN, HLD, Juvenile onset Type 1 DM, CVA, CAD who presented to the ED with DKA. She reports her insulin pump and transmitter were not communicating and her blood sugars have been very elevated. Blood surgars were over 600 on CBG and 781 on lab d (more content not included)... Additional Source Comments Reason for Visit (unrecogniz ed section and content) Reason Comments Joint Pain Patient is here for a 6 Month F/U. Patient states that she is having lower back and left shoulder pain today. Patient states that she is doing about the same. Patient states that pain management is helping. Patient states that she hurt herself by overreaching, and now has the left shoudler pain. Reason Comments Refill Request Reason Comments Established Patient Callous Reason Comments Recheck Follow up stomach is sues Reason Comments Insurance Authorization Reason Comments rx to mail away pharmacy cost to be inga per Reason Comments Appointment Reason Comments Orders Reason Onset Date Comments Refill Request 10/14/2021 Reason Onset Date Comments Refill Request 10/22/2021 Reason Comments Recheck Follow up constipati on Reason Comments Carotid artery stenosis Berkley is here fo r 6 month follow up Reason Comments Established Patient callus Pain Reason Comments Hypertension F/U Diabetes 3 Month Reason Comments Established Patient Dropped vacuum on fo ot Pain Dropped vacuum on fo ot Foot Trauma Dropped vacuum on fo ot Reason Onset Date Comments UTI 01/22/2022 Frequency and bu rning and yeast infection Reason Onset Date Comments Population Health Navigation Outreach 01/23/2022 ACO HCC Reason Comments Medicare Form Reason Comments Results Reason Comments Patient Update Reason Comments Established Patient Follow Up Corns Reason Comments Problems with Physical Therapy Reason Comments Sign POC for HH Reason Onset Date Comments Refill Request 04/18/2022 Reason Comments Opened In Error Reason Comments Established Patient Follow Up Pain Corns Reason Comments Medicare Wellness Exam Annual wellness Reason Comments Fax referral to [facility] Reason Comments Patient Question Reason Onset Date Comments Insurance Authorization 07/09/2022 Reason Onset Date Comments Refill Request 07/17/2022 Reason Comments Recheck Pneumonia follow up Reason Comments Recheck Pneumonia follow up Reason Comments Orders Reason Comments Recheck SOB follow up Reason Onset Date Comments Refill Request 08/05/2021 Refill Request 08/06/2022 Reason Comments New ILD Reason Comments Faxed to [facility] Pulm Reason Onset Date Comments Refill Request 08/18/2022 Reason Comments Follow-up Patient is here for 4 month F/U. Patient states she has not been feeling well. Had pneumonia and is seeing a inventory specialist. Having pain in fingers. Severe pain down left leg. Had injections last . Reason Comments AutoImmune Concerns Reason Comments Medicare Wellness Exam Reason Comments Asthma Specialty Diagnoses / Procedures Referred By Contac t Referred To Contact Pulmonary Disease Diagnoses NSIP (nonspecific interstitial pneumonitis) Fatty liver Hyperglycemia Metabolic acidosis Lumbar degenerative disc disease Osteoarthritis of cervical spine, unspecified spinal osteoarthritis 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 status Osteoarthritis of both hands, unspecified osteoarthritis type Osteoarthritis of both wrists, unspecified osteoarthritis type Rotator cuff arthropathy of both shoulders Thoracic degenerative disc disease Positive D dimer History of rheumatoid arthritis History of stroke 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 correction current use of non-steroidal anti-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 (NSAID) Long-term use of high-risk medication Long-term use of Plaquenil On statin therapy Leni Magallanes, Clinton Carmichael, [address] [place] [address] Ivan Pal MD [address] [place] [phone] Referral ID Status Reason Start Date Expiration Date V isits Requested Visits Authorized [id number] New Request 09/29/2022 10/24/2023 1 1 Reason Onset Date Comments Population Health Navigation Outreach 11/17/2022 ACO TIA PCSA Reason Comments Carotid artery stenosis Berkley to review 11/11/22 carotid US Follow Up Carotid Stenosis - C arotid US done 11/11/22 Reason Comments Recheck Follow up, L leg ronnie n from fall Specialty Diagnoses / Procedures Referred By Bridger rodriguez Referred To Contact Pulmonary Disease Diagnoses NSIP (nonspecific interstitial pneumonitis) Interstitial lung disease Procedures PFT COMPLETE Ivan Pal MD [address] [place] [id number] [facility] Respiratory Therapy [address] [place] [address] Referral ID Status Reason Start Date Expiration Date Visits Re quested Visits Authorized [id number] Closed 11/12/2022 12/07/2023 1 1 Specialty Diagnoses / Procedures Referred By Bridger rodriguez Referred To Contact Computerized Tomography Scan Diagnoses NSIP (nonspecific interstitial pneumonitis) Interstitial lung disease Procedures CT CHEST WITHOUT CONTRAST CHG DIAGNOSTIC COMPUTED TOMOGRAPHY THORAX W/O CNTRST Ivan Pal MD [address] [place] [address] Scan [address] [place] [phone] Referral ID Status Reason Start Date Expiration Date Visits Re quested Visits Authorized [id number] Closed 11/12/2022 12/07/2023 1 1 Specialty Diagnoses / Procedures Referred By Contac t Referred To Contact Cardiovascular Medicine Diagnoses Secondary pulmonary arterial hypertension Procedures ECHOCARDIOGRAM WI ECHO HEART XTHORACIC,COMPLETE W DOPPLER Ivan Pal MD [address] [id number] [facility] [address] [place], [place] [phone] Referral ID Status Reason Start Date Expiration Date Visits Re quested Visits Authorized [id number] Closed 11/12/2022 12/07/2023 1 1 Specialty Diagnoses / Procedures Referred By Contac t Referred To Contact Pulmonary Disease Diagnoses NSIP (nonspecific interstitial pneumonitis) Interstitial lung disease Procedures EXERCISE-6 MIN. WALK Ivan Pal MD [address] [place] [address] [facility] [address] [place] [phone] Referral ID Status Reason Start Date Expiration Date Visits Re quested Visits Authorized [id number] Closed 11/12/2022 12/07/2023 1 1 Reason Comments Dropping off paperwork for Specialist Reason Onset Date Comments Refill Request 12/17/2022 Reason Comments Pulmonary Heart Disease Secondary pulmon joann arterial hypertension Reason Comments Recheck Follow up Reason Comments Follow-up Patient is here for 4 month F/U. Patient states that she has not been doing well since getting pneumonia in May. States she fell in August and has times when the pain in foot and ankle hurt so bad she is unable to bear weight. Reason Comments Radiology CT Specialty Diagnoses / Procedures Referred By Contac t Referred To Contact CT IMAGING Diagnoses Chest pain on breathing Shortness of breath Elevated d-dimer Procedures CT CHEST W IVCON PE DIAGNOSTIC COMPUTED TOMOGRAPHY THORAX W/CONTRAST Sultana Harvey APRN.GRIPPER ATTACHER [address] [place] [address] [place] [id number] Referral ID Status Reason Start Date Expiration Date V isits Requested Visits Authorized [id number] Closed Auto-Generate d Referral 08/05/2022 09/04/2023 1 1 Reason Comments New Patient Specialty Diagnoses / Procedures Referred By Contac t Referred To Contact Rheumatology Diagnoses Rheumatoid arthritis, involving unspecified site, unspecified whether rheumatoid factor present (HCC) Interstitial lung disease (HCC) Procedures CONSULT TO RHEUM/IMMUN DISEASE OFFICE/OUTPATIENT NEW HIGH MDM 60-74 MINUTES Older, CARLOS EDUARDO Weinberg.GRIPPER ATTACHER [address] [place] [address] Referral ID Status Reason Start Date Expiration Date V isits Requested Visits Authorized [id number] Closed PCP Requested Referral 10/01/2022 10/01/2023 1 1 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 DATE CREATED AUTHOR AUTHOR'S ORGANIZ ATION 02/02/2023 [facility] DATE CREATED AUTHOR AUTHOR'S ORGANIZ ATION 04/10/2023 [facility] DATE CREATED AUTHOR AUTHOR'S ORGANIZ ATION 05/04/2023 [facility] Care Teams (unrecognized sec tion and content) Air Liaison And Special Staff Relationship Specialty Start Date End Date Darryn Anderson MD [address] [place], [place] [phone] PCP - General Internal Medicine 07/05/15 Raquel Herrera Endocrinology 10/19/15 Jonas Etienne [address] [place], [place] [phone] Physician Ophthalmology 03/21/20 Air Liaison And Special Staff Relationship Specialty Start Date End Date Darryn Anderson MD [address] [place], [place] [phone] PCP - General Internal Medicine 07/05/15 Raquel Hrerera Endocrinology 10/19/15 Jonas Etienne [address] [place], [place] [address] [phone] Physician Ophthalmology 03/21/20 Air Liaison And Special Staff Relationship Specialty Start Date End Date Darryn Anderson MD [address] [place] [address] PCP - General Internal Medicine 07/05/15 Raquel Herrera Endocrinology 10/19/15 Jonas Etienne [address] [place] [address] Physician Ophthalmology 03/21/20 Air Liaison And Special Staff Relationship Specialty Start Date End Date Darryn Anderson MD [address] [place] [address] PCP - General Internal Medicine 07/05/15 Raquel Herrera Endocrinology 10/19/15 Jonas Etienne [address] [place] [address] Physician Ophthalmology 03/21/20 Air Liaison And Special Staff Relationship Specialty Start Date End Date Darryn Anderson MD [address] [place] [address] PCP - General Internal Medicine 07/05/15 Raquel Herrera Endocrinology 10/19/15 Jonas Etienne [address] [place] [address] Physician Ophthalmology 03/21/20 Air Liaison And Special Staff Relationship Specialty Start Date End Date Darryn Anderson MD [address] [place] [address] PCP - General Internal Medicine 07/05/15 Raquel Herrera Endocrinology 10/19/15 Jonas Etienne [address] [place] [address] Physician Ophthalmology 03/21/20 Air Liaison And Special Staff Relationship Specialty Start Date End Date Darryn Anderson MD [address] [place], [place] [phone] PCP - General Internal Medicine 07/05/15 Raquel Herrera Endocrinology 10/19/15 Jonas Etienne [address] [place] [address] Physician Ophthalmology 03/21/20 Air Liaison And Special Staff Relationship Specialty Start Date End Date Darryn Anderson MD [address] [place] [address] PCP - General Internal Medicine 07/05/15 Raquel Herrera Endocrinology 10/19/15 Jonas Etienne [address] [place] [address] Physician Ophthalmology 03/21/20 Air Liaison And Special Staff Relationship Specialty Start Date End Date Darryn Anderson MD [address] [place] [address] PCP - General Internal Medicine 07/05/15 Raquel Herrera Endocrinology 10/19/15 Jonas Etienne [address] [place], [place] [phone] Physician Ophthalmology 03/21/20 Air Liaison And Special Staff Relationship Specialty Start Date End Date Darryn Anderson MD [address] [place] [address] PCP - General Internal Medicine 07/05/15 Raquel Herrera Endocrinology 10/19/15 Jonas Etienne [address] [place] [address] Physician Ophthalmology 03/21/20 Air Liaison And Special Staff Relationship Specialty Start Date End Date Darryn Anderson MD [address] [place] [address] PCP - General Internal Medicine 07/05/15 Raquel Herrera Endocrinology 10/19/15 Jonas Etienne [address] [place] [address] Physician Ophthalmology 03/21/20 [employer] Relationship Specialty Start Date End Date Darryn Anderson MD [address] [place] [address] PCP - General Internal Medicine 07/05/15 Raquel Herrera MD Endocrinology 10/19/15 Jonas Etienne [address] [place] [address] Physician Ophthalmology 03/21/20 [employer] Relationship Specialty Start Date End Date Darryn Anderson MD [address] [place] [address] PCP - General Internal Medicine 07/05/15 Raquel Herrera MD Endocrinology 10/19/15 Jonas Etienne [address] [place], [place] 169351 [phone] Physician Ophthalmology 03/21/20 [employer] Relationship Specialty Start Date End Date Darryn Anderson MD [address] [place] [address] PCP - General Internal Medicine 07/05/15 Raquel Herrera MD Endocrinology 10/19/15 Jonas Etienne [address] [place], [place] [address] Physician Ophthalmology 03/21/20 [employer] Relationship Specialty Start Date End Date Darryn Anderson MD [address] [place] [address] PCP - General Internal Medicine 07/05/15 Raquel Herrera MD Endocrinology 10/19/15 Jonas Etienne [address] [place] [address] Physician Ophthalmology 03/21/20 [employer] Relationship Specialty Start Date End Date Darryn Anderson MD [address] [facility] [place] [address] PCP - General Internal Medicine 07/05/15 Raquel Herrera MD Endocrinology 10/19/15 Jonas Etienne [address] [place] [address] Physician Ophthalmology 03/21/20 [employer] Relationship Specialty Start Date End Date Darryn Anderson MD [address] [place] [address] PCP - General Internal Medicine 07/05/15 Raquel Herrera MD Endocrinology 10/19/15 Jonas Etienne [facility] [place] [address] Physician Ophthalmology 03/21/20 [employer] Relationship Specialty Start Date End Date Darryn Anderson MD [address] [place] [address] PCP - General Internal Medicine 07/05/15 Raquel Herrera MD Endocrinology 10/19/15 Jonas Etienne [facility] [place] [address] Physician Ophthalmology 03/21/20 [employer] Relationship Specialty Start Date End Date Darryn Anderson MD [address] [place] [address] PCP - General Internal Medicine 07/05/15 Raquel Herrera MD Endocrinology 10/19/15 Jonas Etienne [address] [place] [address] Physician Ophthalmology 03/21/20 [employer] Relationship Specialty Start Date End Date Darryn Anderson MD [address] [place] [address] PCP - General Internal Medicine 07/05/15 Raquel Herrera MD Endocrinology 10/19/15 Jonas Etienne [address] [place] [address] Physician Ophthalmology 03/21/20 [employer] Relationship Specialty Start Date End Date Darryn Anderson MD [address] [place] [address] PCP - General Internal Medicine 07/05/15 Raquel Herrera MD Endocrinology 10/19/15 Jonas Etienne [address] [place] [address] Physician Ophthalmology 03/21/20 [employer] Relationship Specialty Start Date End Date Darryn Anderson MD [address] [place] [address] PCP - General Internal Medicine 07/05/15 Raquel Herrera MD [address] [place] [address] Endocrinology 10/19/15 Jonas Etienne [address] [place] [address] Physician Ophthalmology 03/21/20 [employer] Relationship Specialty Start Date End Date Darryn Anderson MD [address] [facility] [place] [address] PCP - General Internal Medicine 07/05/15 Raquel Herrera MD [address] [place] [address] Endocrinology 10/19/15 Jonas Etienne [address] [place] [address] Physician Ophthalmology 03/21/20 [employer] Relationship Specialty Start Date End Date Darryn Anderson MD [address] [place] [address] PCP - General Internal Medicine 07/05/15 Raquel Herrera MD [address] [place] [address] Endocrinology 10/19/15 Jonas Etienne [address] [facility] [place] [address] Physician Ophthalmology 03/21/20 [employer] Relationship Specialty Start Date End Date Darryn Anderson MD [address] [place] [address] PCP - General Internal Medicine 07/05/15 Raquel Herrera MD [address] [place] [address] Endocrinology 10/19/15 Jonas Etienne [address] [facility] [place] [address] Physician Ophthalmology 03/21/20 [employer] Staff Relationship Specialty Start Date End Date Darryn Anderson MD [address] [place] [address] PCP - General Internal Medicine 07/05/15 Raquel Hrerera MD [address] [place] [address] Endocrinology 10/19/15 Jonas Etienne [address] [facility] [place] [address] Physician Ophthalmology 03/21/20 [employer] Staff Relationship Specialty Start Date End Date Darryn Anderson MD [address] [place] [address] PCP - General Internal Medicine 07/05/15 Raquel Herrera MD [address] [place] [address] Endocrinology 10/19/15 Jonas Etienne [address] [facility] [place] [address] Physician Ophthalmology 03/21/20 [employer] Staff Relationship Specialty Start Date End Date Darryn Anderson MD [address] [place] [address] PCP - General Internal Medicine 07/05/15 Raquel Herrera MD [address] [place] [address] Endocrinology 10/19/15 Jonas Etienne [address] [place] [address] Physician Ophthalmology 03/21/20 [employer] Staff Relationship Specialty Start Date End Date Darryn Anderson MD [address] [place] [address] PCP - General Internal Medicine 07/05/15 Raquel Herrera MD [address] [place] [address] Endocrinology 10/19/15 Jonas Etienne [address] [facility] [place] [address] Physician Ophthalmology 03/21/20 [employer] Special Staff Relationship Specialty Start Date End Date Darryn Anderson MD [address] [place] [address] PCP - General Internal Medicine 07/05/15 Raquel Herrera MD [address] [place] [address] Endocrinology 10/19/15 Jonas Etienne [address] [facility] [place] [address] Physician Ophthalmology 03/21/20 [employer] Staff Relationship Specialty Start Date End Date Darryn Anderson MD [address] [place] [address] PCP - General Internal Medicine 07/05/15 Raquel Herrera MD [address] [place] [address] Endocrinology 10/19/15 Jonas Etienne [address] [facility] [place] [address] Physician Ophthalmology 03/21/20 [employer] Special Staff Relationship Specialty Start Date End Date Darryn Anderson MD [address] [place] [address] PCP - General Internal Medicine 07/05/15 Raquel Herrera MD [address] [place] [address] Endocrinology 10/19/15 Jonas Etienne [address] [facility] [place] [address] Physician Ophthalmology 03/21/20 [employer] Special Staff Relationship Specialty Start Date End Date Darryn Anderson MD [address] [place] [address] PCP - General Internal Medicine 07/05/15 Raquel Herrera MD [address] [place] [address] Endocrinology 10/19/15 Jonas Etienne [address] [facility] [place] [address] Physician Ophthalmology 03/21/20 [employer] Special Staff Relationship Specialty Start Date End Date Darryn Anderson MD [address] [place] [address] PCP - General Internal Medicine 07/05/15 Raquel Herrera MD [address] [place] [address] Endocrinology 10/19/15 Jonas Etienne [address] [place] [address] Physician Ophthalmology 03/21/20 [employer] Special Staff Relationship Specialty Start Date End Date Darryn Anderson MD [address] [place] [address] PCP - General Internal Medicine 07/05/15 Raquel Herrera MD [address] [place] [address] Endocrinology 10/19/15 Jonas Etienne [address] [place] [address] Physician Ophthalmology 03/21/20 [employer] And Special Staff Relationship Specialty Start Date End Date Darryn Anderson MD [address] [place] [address] PCP - General Internal Medicine 07/05/15 Raquel Herrera MD [address] [place] [address] Endocrinology 10/19/15 Jonas Etienne [address] [facility] [place] [address] Physician Ophthalmology 03/21/20 [employer] Special Staff Relationship Specialty Start Date End Date Darryn Anderson MD [address] [place] [address] PCP - General Internal Medicine 07/05/15 Raquel Herrera MD [address] [place] [address] Endocrinology 10/19/15 Jonas Etienne [address] [place] [address] Physician Ophthalmology 03/21/20 [employer] Special Staff Relationship Specialty Start Date End Date Darryn Anderson MD [address] [place] [address] PCP - General Internal Medicine 07/05/15 Raquel Herrera MD [address] [place] [address] Endocrinology 10/19/15 Jonas Etienne [address] [place] [address] Physician Ophthalmology 03/21/20 [employer] Staff Relationship Specialty Start Date End Date Darryn Anderson MD [address] [place] [address] PCP - General Internal Medicine 07/05/15 Raquel Herrera MD [address] [place] [address] Endocrinology 10/19/15 Jonas Etienne [address] [facility] [place] [address] Physician Ophthalmology 03/21/20 [employer] Staff Relationship Specialty Start Date End Date Darryn Anderson MD [address] [place] [address] PCP - General Internal Medicine 07/05/15 Raquel Herrera MD [address] [place] [address] Endocrinology 10/19/15 Jonas Etienne [address] [facility] [place] [address] Physician Ophthalmology 03/21/20 [employer] Special Staff Relationship Specialty Start Date End Date Darryn Anderson MD [address] [place] [address] PCP - General Internal Medicine 07/05/15 Rauqel Herrera MD [address] [place] [address] Endocrinology 10/19/15 Jonas Etienne [address] [place] [address] Physician Ophthalmology 03/21/20 [employer] Special Staff Relationship Specialty Start Date End Date Darryn Anderson MD [address] [place] [address] PCP - General Internal Medicine 07/05/15 Raquel Herrera MD [address] [place] [address] Endocrinology 10/19/15 Jonas Etienne [address] [place] [address] Physician Ophthalmology 03/21/20 [employer] And Special Staff Relationship Specialty Start Date End Date Darryn Anderson MD [address] [place] [address] PCP - General Internal Medicine 07/05/15 Raquel Herrera MD [address] [place] [address] Endocrinology 10/19/15 Jonas Etienne [address] [place] [address] Physician Ophthalmology 03/21/20 [employer] And Special Staff Relationship Specialty Start Date End Date Darryn Anderson MD [address] [facility] [place] [address] PCP - General Internal Medicine 05/16/19 [employer] Special Staff Relationship Specialty Start Date End Date Darryn Anderson MD [address] [place] [address] PCP - General Internal Medicine 07/05/15 Raquel Herrera MD [address] [place] [address] Endocrinology 10/19/15 Jonas Etienne [address] [place] [address] Physician Ophthalmology 03/21/20 [employer] And Special Staff Relationship Specialty Start Date End Date Darryn Anderson MD [address] [place] [address] PCP - General Internal Medicine 07/05/15 Raquel Herrera MD [address] [place] [address] Endocrinology 10/19/15 Jonas Etienne [address] [place] [address] Physician Ophthalmology 03/21/20 [employer] And Special Staff Relationship Specialty Start Date End Date Darryn Anderson MD [address] [place] [address] PCP - General Internal Medicine 07/05/15 Raquel Herrera MD [address] [place] [address] Endocrinology 10/19/15 Jonas Etienne [address] [place] [address] Physician Ophthalmology 03/21/20 [employer] And Special Staff Relationship Specialty Start Date End Date Darryn Anderson MD [address] [facility], [place] [address] PCP - General Internal Medicine 07/05/15 Raquel Herrera MD [address] [facility], [place] [address] Endocrinology 10/19/15 Jonas Etienne [address] [place] [address] Physician Ophthalmology 03/21/20 [employer] And Special Staff Relationship Specialty Start Date End Date Darryn Anderson MD [address] [facility] [place] [address] PCP - General Internal Medicine 05/16/19 [employer] And Special Staff Relationship Specialty Start Date End Date Darryn Anderson MD [address] [place] [address] PCP - General Internal Medicine 07/05/15 Raquel Herrera MD [address] [place] [address] Endocrinology 10/19/15 Jonas Etienne [address] [place] [address] Physician Ophthalmology 03/21/20 [employer] And Special Staff Relationship Specialty Start Date End Date Darryn Anderson MD [address] [place] [address] PCP - General Internal Medicine 07/05/15 Raquel Herrera MD [address] [facility], [place] [address] Endocrinology 10/19/15 Jonas Etienne [address] [facility], [place] [address] Physician Ophthalmology 03/21/20 [employer] And Special Staff Relationship Specialty Start Date End Date Darryn Anderson MD [address] [facility], [place] [address] PCP - General Internal Medicine 07/05/15 Raquel Herrera MD [address] [place] [address] Endocrinology 10/19/15 Jonas Etienne [facility] [place] [address] Physician Ophthalmology 03/21/20 [employer] And Special Staff Relationship Specialty Start Date End Date Darryn Anderson MD [address] [place] [address] PCP - General Internal Medicine 07/05/15 Raquel Herrera MD [address] [place] [address] Endocrinology 10/19/15 Jonas Etienne [address] [place] [address] Physician Ophthalmology 03/21/20 [employer] And Special Staff Relationship Specialty Start Date End Date Darryn Anderson MD [address] [place] [address] PCP - General Internal Medicine 05/16/19 [employer]ison And Special Staff Relationship Specialty Start Date End Date Darryn Anderson MD [address] [facility] [place] [address] PCP - General Internal Medicine 05/16/19 [employer]ison And Special Staff Relationship Specialty Start Date End Date Darryn Anderson MD [address] [facility] [place] [address] PCP - General Internal Medicine 07/05/15 Raquel Herrera MD [address] [place] [address] Endocrinology 10/19/15 Jonas Etienne [address] [place] [address] Physician Ophthalmology 03/21/20 [employer] And Special Staff Relationship Specialty Start Date End Date Darryn Anderson MD [address] [facility] [place] [address] PCP - General Internal Medicine 05/16/19 [employer] And Special Staff Relationship Specialty Start Date End Date Darryn Anderson MD [address] [facility] [place] [address] PCP - General Internal Medicine 05/16/19 [employer]ison And Special Staff Relationship Specialty Start Date End Date Darryn Anderson MD [address] [place] [address] PCP - General Internal Medicine 07/05/15 Raquel Herrera MD [address] [place] [address] Endocrinology 10/19/15 Jonas Etienne MD [address] [place] [address] Physician Ophthalmology 03/21/20 [employer] And Special Staff Relationship Specialty Start Date End Date Darryn Anderson MD [address] [facility] [address] PCP - General Internal Medicine 07/05/15 Raquel Herrera MD [address] [place] [address] Endocrinology 10/19/15 Jonas Etienne MD [address] [place] [address] Physician Ophthalmology 03/21/20 [employer] And Special Staff Relationship Specialty Start Date End Date Darryn Anderson MD [address] [place] [address] PCP - General Internal Medicine 07/05/15 Raquel Herrera MD [address] [place] [address] Endocrinology 10/19/15 Jonas Etienne MD [address] [place] [address] Physician Ophthalmology 03/21/20 [employer] And Special Staff Relationship Specialty Start Date End Date Darryn Anderson MD [address] [place] [address] PCP - General Internal Medicine 07/05/15 Raquel Herrera MD [address] [place] [address] Endocrinology 10/19/15 Jonas Etienne MD [address] [facility], [place] [address] Physician Ophthalmology 03/21/20 [employer] And Special Staff Relationship Specialty Start Date End Date Darryn Anderson MD [address] [place] [address] PCP - General Internal Medicine 07/05/15 Raquel Herrera MD [address] [place] [address] Endocrinology 10/19/15 Jonas Etienne MD [address] [place] [address] Physician Ophthalmology 03/21/20 [employer]ison And Special Staff Relationship Specialty Start Date End Date Darryn Anderson MD [address] [place] [address] PCP - General Internal Medicine 07/05/15 Raquel Herrera MD [address] [place] [address] Endocrinology 10/19/15 Jonas Etienne MD [address] [place], [place] [address] Physician Ophthalmology 03/21/20 Source Comments (unrecognize d section and content) In the event this informatio n is protected by the Federal Confidentiality of Alcohol and Drug Abuse Patient Records regulations: The Federal rules restrict any use of the information to criminally investigate or prosecute any alcohol or drug abuse patient.[facility] the event this information is protected by the Federal Confidentiality of Alcohol and Drug Abuse Patient Records regulations: The Federal rules restrict any use of the information to criminally investigate or prosecute any alcohol or drug abuse patient.[facility] the event this information is protected by the Federal Confidentiality of Alcohol and Drug Abuse Patient Records regulations: The Federal rules restrict any use of the information to criminally investigate or prosecute any alcohol or drug abuse patient.[facility] the event this information is protected by the Federal Confidentiality of Alcohol and Drug Abuse Patient Records regulations: The Federal rules restrict any use of the information to criminally investigate or prosecute any alcohol or drug abuse patient.[facility] the event this information is protected by the Federal Confidentiality of Alcohol and Drug Abuse Patient Records regulations: The Federal rules restrict any use of the information to criminally investigate or prosecute any alcohol or drug abuse patient.[facility]In the event this information is protected by the Federal Confidentiality of Alcohol and Drug Abuse Patient Records regulations: The Federal rules restrict any use of the information to criminally investigate or prosecute any alcohol or drug abuse patient.[facility]In the event this information is protected by the Federal Confidentiality of Alcohol and Drug Abuse Patient Records regulations: The Federal rules restrict any use of the information to criminally investigate or prosecute any alcohol or drug abuse patient.[facility] the event this information is protected by the Federal Confidentiality of Alcohol and Drug Abuse Patient Records regulations: The Federal rules restrict any use of the information to criminally investigate or prosecute any alcohol or drug abuse patient.[facility] the event this information is protected by the Federal Confidentiality of Alcohol and Drug Abuse Patient Records regulations: The Federal rules restrict any use of the information to criminally investigate or prosecute any alcohol or drug abuse patient.[facility]In the event this information is protected by the Federal Confidentiality of Alcohol and Drug Abuse Patient Records regulations: The Federal rules restrict any use of the information to criminally investigate or prosecute any alcohol or drug abuse patient.[facility]In the event this information is protected by the Federal Confidentiality of Alcohol and Drug Abuse Patient Records regulations: The Federal rules restrict any use of the information to criminally investigate or prosecute any alcohol or drug abuse patient.[facility]In the event this information is protected by the Federal Confidentiality of Alcohol and Drug Abuse Patient Records regulations: The Federal rules restrict any use of the information to criminally investigate or prosecute any alcohol or drug abuse patient.[facility]In the event this information is protected by the Federal Confidentiality of Alcohol and Drug Abuse Patient Records regulations: The Federal rules restrict any use of the information to criminally investigate or prosecute any alcohol or drug abuse patient.[facility]In the event this information is protected by the Federal Confidentiality of Alcohol and Drug Abuse Patient Records regulations: The Federal rules restrict any use of the information to criminally investigate or prosecute any alcohol or drug abuse patient.[facility]In the event this information is protected by the Federal Confidentiality of Alcohol and Drug Abuse Patient Records regulations: The Federal rules restrict any use of the information to criminally investigate or prosecute any alcohol or drug abuse patient.[facility]In the event this information is protected by the Federal Confidentiality of Alcohol and Drug Abuse Patient Records regulations: The Federal rules restrict any use of the information to criminally investigate or prosecute any alcohol or drug abuse patient.[facility]In the event this information is protected by the Federal Confidentiality of Alcohol and Drug Abuse Patient Records regulations: The Federal rules restrict any use of the information to criminally investigate or prosecute any alcohol or drug abuse patient.[facility]In the event this information is protected by the Federal Confidentiality of Alcohol and Drug Abuse Patient Records regulations: The Federal rules restrict any use of the information to criminally investigate or prosecute any alcohol or drug abuse patient.[facility] HospitalIn the event this information is protected by the Federal Confidentiality of Alcohol and Drug Abuse Patient Records regulations: The Federal rules restrict any use of the information to criminally investigate or prosecute any alcohol or drug abuse patient.[facility] HospitalIn the event this information is protected by the Federal Confidentiality of Alcohol and Drug Abuse Patient Records regulations: The Federal rules restrict any use of the information to criminally investigate or prosecute any alcohol or drug abuse patient.[facility]In the event this information is protected by the Federal Confidentiality of Alcohol and Drug Abuse Patient Records regulations: The Federal rules restrict any use of the information to criminally investigate or prosecute any alcohol or drug abuse patient.[facility]In the event this information is protected by the Federal Confidentiality of Alcohol and Drug Abuse Patient Records regulations: The Federal rules restrict any use of the information to criminally investigate or prosecute any alcohol or drug abuse patient.[facility]In the event this information is protected by the Federal Confidentiality of Alcohol and Drug Abuse Patient Records regulations: The Federal rules restrict any use of the information to criminally investigate or prosecute any alcohol or drug abuse patient.[facility]In the event this information is protected by the Federal Confidentiality of Alcohol and Drug Abuse Patient Records regulations: The Federal rules restrict any use of the information to criminally investigate or prosecute any alcohol or drug abuse patient.[facility] HospitalIn the event this information is protected by the Federal Confidentiality of Alcohol and Drug Abuse Patient Records regulations: The Federal rules restrict any use of the information to criminally investigate or prosecute any alcohol or drug abuse patient.[facility]In the event this information is protected by the Federal Confidentiality of Alcohol and Drug Abuse Patient Records regulations: The Federal rules restrict any use of the information to criminally investigate or prosecute any alcohol or drug abuse patient.[facility]In the event this information is protected by the Federal Confidentiality of Alcohol and Drug Abuse Patient Records regulations: The Federal rules restrict any use of the information to criminally investigate or prosecute any alcohol or drug abuse patient.[facility]In the event this information is protected by the Federal Confidentiality of Alcohol and Drug Abuse Patient Records regulations: The Federal rules restrict any use of the information to criminally investigate or prosecute any alcohol or drug abuse patient.[facility]In the event this information is protected by the Federal Confidentiality of Alcohol and Drug Abuse Patient Records regulations: The Federal rules restrict any use of the information to criminally investigate or prosecute any alcohol or drug abuse patient.[facility]In the event this information is protected by the Federal Confidentiality of Alcohol and Drug Abuse Patient Records regulations: The Federal rules restrict any use of the information to criminally investigate or prosecute any alcohol or drug abuse patient.[facility]In the event this information is protected by the Federal Confidentiality of Alcohol and Drug Abuse Patient Records regulations: The Federal rules restrict any use of the information to criminally investigate or prosecute any alcohol or drug abuse patient.[facility]In the event this information is protected by the Federal Confidentiality of Alcohol and Drug Abuse Patient Records regulations: The Federal rules restrict any use of the information to criminally investigate or prosecute any alcohol or drug abuse patient.[facility]In the event this information is protected by the Federal Confidentiality of Alcohol and Drug Abuse Patient Records regulations: The Federal rules restrict any use of the information to criminally investigate or prosecute any alcohol or drug abuse patient.[facility]In the event this information is protected by the Federal Confidentiality of Alcohol and Drug Abuse Patient Records regulations: The Federal rules restrict any use of the information to criminally investigate or prosecute any alcohol or drug abuse patient.[facility]In the event this information is protected by the Federal Confidentiality of Alcohol and Drug Abuse Patient Records regulations: The Federal rules restrict any use of the information to criminally investigate or prosecute any alcohol or drug abuse patient.[facility] HospitalIn the event this information is protected by the Federal Confidentiality of Alcohol and Drug Abuse Patient Records regulations: The Federal rules restrict any use of the information to criminally investigate or prosecute any alcohol or drug abuse patient.[facility] HospitalIn the event this information is protected by the Federal Confidentiality of Alcohol and Drug Abuse Patient Records regulations: The Federal rules restrict any use of the information to criminally investigate or prosecute any alcohol or drug abuse patient.[facility]In the event this information is protected by the Federal Confidentiality of Alcohol and Drug Abuse Patient Records regulations: The Federal rules restrict any use of the information to criminally investigate or prosecute any alcohol or drug abuse patient.[facility] HospitalIn the event this information is protected by the Federal Confidentiality of Alcohol and Drug Abuse Patient Records regulations: The Federal rules restrict any use of the information to criminally investigate or prosecute any alcohol or drug abuse patient.[facility]In the event this information is protected by the Federal Confidentiality of Alcohol and Drug Abuse Patient Records regulations: The Federal rules restrict any use of the information to criminally investigate or prosecute any alcohol or drug abuse patient.[facility] HospitalIn the event this information is protected by the Federal Confidentiality of Alcohol and Drug Abuse Patient Records regulations: The Federal rules restrict any use of the information to criminally investigate or prosecute any alcohol or drug abuse patient.[facility] HospitalIn the event this information is protected by the Federal Confidentiality of Alcohol and Drug Abuse Patient Records regulations: The Federal rules restrict any use of the information to criminally investigate or prosecute any alcohol or drug abuse patient.[facility] HospitalIn the event this information is protected by the Federal Confidentiality of Alcohol and Drug Abuse Patient Records regulations: The Federal rules restrict any use of the information to criminally investigate or prosecute any alcohol or drug abuse patient.[facility] HospitalIn the event this information is protected by the Federal Confidentiality of Alcohol and Drug Abuse Patient Records regulations: The Federal rules restrict any use of the information to criminally investigate or prosecute any alcohol or drug abuse patient.[facility] HospitalIn the event this information is protected by the Federal Confidentiality of Alcohol and Drug Abuse Patient Records regulations: The Federal rules restrict any use of the information to criminally investigate or prosecute any alcohol or drug abuse patient.[facility] HospitalIn the event this information is protected by the Federal Confidentiality of Alcohol and Drug Abuse Patient Records regulations: The Federal rules restrict any use of the information to criminally investigate or prosecute any alcohol or drug abuse patient.[facility] HospitalIn the event this information is protected by the Federal Confidentiality of Alcohol and Drug Abuse Patient Records regulations: The Federal rules restrict any use of the information to criminally investigate or prosecute any alcohol or drug abuse patient.[facility] HospitalIn the event this information is protected by the Federal Confidentiality of Alcohol and Drug Abuse Patient Records regulations: The Federal rules restrict any use of the information to criminally investigate or prosecute any alcohol or drug abuse patient.[facility] HospitalIn the event this information is protected by the Federal Confidentiality of Alcohol and Drug Abuse Patient Records regulations: The Federal rules restrict any use of the information to criminally investigate or prosecute any alcohol or drug abuse patient.[facility] HospitalIn the event this information is protected by the Federal Confidentiality of Alcohol and Drug Abuse Patient Records regulations: The Federal rules restrict any use of the information to criminally investigate or prosecute any alcohol or drug abuse patient.[facility] HospitalIn the event this information is protected by the Federal Confidentiality of Alcohol and Drug Abuse Patient Records regulations: The Federal rules restrict any use of the information to criminally investigate or prosecute any alcohol or drug abuse patient.[facility] HospitalIn the event this information is protected by the Federal Confidentiality of Alcohol and Drug Abuse Patient Records regulations: The Federal rules restrict any use of the information to criminally investigate or prosecute any alcohol or drug abuse patient.[facility]In the event this information is protected by the Federal Confidentiality of Alcohol and Drug Abuse Patient Records regulations: The Federal rules restrict any use of the information to criminally investigate or prosecute any alcohol or drug abuse patient.[facility]In the event this information is protected by the Federal Confidentiality of Alcohol and Drug Abuse Patient Records regulations: The Federal rules restrict any use of the information to criminally investigate or prosecute any alcohol or drug abuse patient.[facility]In the event this information is protected by the Federal Confidentiality of Alcohol and Drug Abuse Patient Records regulations: The Federal rules restrict any use of the information to criminally investigate or prosecute any alcohol or drug abuse patient.[facility]In the event this information is protected by the Federal Confidentiality of Alcohol and Drug Abuse Patient Records regulations: The Federal rules restrict any use of the information to criminally investigate or prosecute any alcohol or drug abuse patient.[facility]In the event this information is protected by the Federal Confidentiality of Alcohol and Drug Abuse Patient Records regulations: The Federal rules restrict any use of the information to criminally investigate or prosecute any alcohol or drug abuse patient.[facility]In the event this information is protected by the Federal Confidentiality of Alcohol and Drug Abuse Patient Records regulations: The Federal rules restrict any use of the information to criminally investigate or prosecute any alcohol or drug abuse patient.[facility]In the event this information is protected by the Federal Confidentiality of Alcohol and Drug Abuse Patient Records regulations: The Federal rules restrict any use of the information to criminally investigate or prosecute any alcohol or drug abuse patient.[facility]In the event this information is protected by the Federal Confidentiality of Alcohol and Drug Abuse Patient Records regulations: The Federal rules restrict any use of the information to criminally investigate or prosecute any alcohol or drug abuse patient.[facility]In the event this information is protected by the Federal Confidentiality of Alcohol and Drug Abuse Patient Records regulations: The Federal rules restrict any use of the information to criminally investigate or prosecute any alcohol or drug abuse patient.[facility]In the event this information is protected by the Federal Confidentiality of Alcohol and Drug Abuse Patient Records regulations: The Federal rules restrict any use of the information to criminally investigate or prosecute any alcohol or drug abuse patient.[facility]In the event this information is protected by the Federal Confidentiality of Alcohol and Drug Abuse Patient Records regulations: The Federal rules restrict any use of the information to criminally investigate or prosecute any alcohol or drug abuse patient.[facility]In the event this information is protected by the Federal Confidentiality of Alcohol and Drug Abuse Patient Records regulations: The Federal rules restrict any use of the information to criminally investigate or prosecute any alcohol or drug abuse patient.[facility]In the event this information is protected by the Federal Confidentiality of Alcohol and Drug Abuse Patient Records regulations: The Federal rules restrict any use of the information to criminally investigate or prosecute any alcohol or drug abuse patient.[facility]In the event this information is protected by the Federal Confidentiality of Alcohol and Drug Abuse Patient Records regulations: The Federal rules restrict any use of the information to criminally investigate or prosecute any alcohol or drug abuse patient.[facility]In the event this information is protected by the Federal Confidentiality of Alcohol and Drug Abuse Patient Records regulations: The Federal rules restrict any use of the information to criminally investigate or prosecute any alcohol or drug abuse patient.[facility]In the event this information is protected by the Federal Confidentiality of Alcohol and Drug Abuse Patient Records regulations: The Federal rules restrict any use of the information to criminally investigate or prosecute any alcohol or drug abuse patient.[facility]In the event this information is protected by the Federal Confidentiality of Alcohol and Drug Abuse Patient Records regulations: The Federal rules restrict any use of the information to criminally investigate or prosecute any alcohol or drug abuse patient.[facility]In the event this information is protected by the Federal Confidentiality of Alcohol and Drug Abuse Patient Records regulations: The Federal rules restrict any use of the information to criminally investigate or prosecute any alcohol or drug abuse patient.[facility]In the event this information is protected by the Federal Confidentiality of Alcohol and Drug Abuse Patient Records regulations: The Federal rules restrict any use of the information to criminally investigate or prosecute any alcohol or drug abuse patient.[facility]In the event this information is protected by the Federal Confidentiality of Alcohol and Drug Abuse Patient Records regulations: The Federal rules restrict any use of the information to criminally investigate or prosecute any alcohol or drug abuse patient.[facility]In the event this information is protected by the Federal Confidentiality of Alcohol and Drug Abuse Patient Records regulations: The Federal rules restrict any use of the information to criminally investigate or prosecute any alcohol or drug abuse patient.[facility]In the event this information is protected by the Federal Confidentiality of Alcohol and Drug Abuse Patient Records regulations: The Federal rules restrict any use of the information to criminally investigate or prosecute any alcohol or drug abuse patient.[facility]In the event this information is protected by the Federal Confidentiality of Alcohol and Drug Abuse Patient Records regulations: The Federal rules restrict any use of the information to criminally investigate or prosecute any alcohol or drug abuse patient.[facility]In the event this information is protected by the Federal Confidentiality of Alcohol and Drug Abuse Patient Records regulations: The Federal rules restrict any use of the information to criminally investigate or prosecute any alcohol or drug abuse patient.[facility]In the event this information is protected by the Federal Confidentiality of Alcohol and Drug Abuse Patient Records regulations: The Federal rules restrict any use of the information to criminally investigate or prosecute any alcohol or drug abuse patient.[facility] FOR RECORDS PERTAINING TO PATIENTS WHO ARE OR HAVE BEEN ENROLLED IN A CHEMICAL DEPENDENCY/SUBSTANCEABUSE PROGRAM, SOME INFORMATION MAY BE OMITTED. This clinical summary was aggregated from multiple sources. Caution should be exercised in using it in the provision of clinical care. This summary normalizes information from multiple sources, and as a consequence, information in this document may materially change the coding, format and clinical context of patient data. In addition, data may be omitted in some cases. CLINICAL DECISIONS SHOULD BE BASED ON THE PRIMARY CLINICAL RECORDS. [facility] [employer] [facility]. provides no warranty or guarantee of the accuracy or completeness of information in this document.
== END | disposition home or self-care (01) ==
LOC: RAD 12:30
PROVIDERS: PCP Internal Medicine; Referring Provider Nurse Practitioner; Visit Provider Nurse Practitioner
DX: M25.551 Pain in right hip (principal); Z91.81 History of falling
CPT/HCPCS: 72100; 73502

== ENCOUNTER 2023-05-23 14:53 | Emergency (ER) | payer MEDICARE, BC, SELFPAY ==
[2023-05-23 14:54] VITALS: BP 174/82; PULSE 75; RESP 16; TEMP 35.9; O2SAT 99; BMI 32.1
--- NOTE | 2023-05-23 15:23 | EX.ED.DYSGE1 ---
HPI <Dr. Gabriel Abernathy, - Last Filed: 05/23/23 16:15> History of Present Illness Chief Complaint: Lower Extremity Injury <RODERICK Jarrell - Last Filed: 05/23/23 16:45> Narrative Narrative: Patient presenting today due to right knee pain that she has had for the past 2 days. She reports that she is having a difficult time bearing weight onto her right lower extremity due to the pain but is able to ambulate. She reports that 2 days ago she was lying in bed and her was helping her take off her pants when he pulled on her right leg and she started to feel pain in the right knee. She reports that she has a history of arthritis in her left lower extremity and primarily distributes the weight onto her right lower extremity while ambulating. She denies any direct trauma to her knee. [facility] <Dr. Gabriel Abernathy DO - Last Filed: 05/23/23 16:15> [facility] Medical History Atherosclerosis of coronary artery of [place] heart without angina pectoris Back pain BPPV (benign paroxysmal positional vertigo) CAD (coronary artery disease) Cardiology follow-up encounter Carotid stenosis Carpal tunnel syndrome, bilateral Chronic constipation Chronic neck and back pain Chronic rheumatic arthritis COPD (chronic obstructive pulmonary disease) Coronary artery disease involving [place] coronary artery CPAP (continuous positive airway pressure) dependence Diabetic neuropathy Dietary restriction Difficulty balancing Diverticulosis of colon Esophagitis Essential (primary) hypertension Fall Fatty liver Gastric reflux Gastroenteritis High cholesterol History of echocardiogram History of edema History of pain when walking History of steroid therapy History of stress test History of stroke Hyperlipidemia Hypertension Incontinence Insomnia Insulin dependent diabetes mellitus Insulin pump titration Non-smoker Obesity Polymyalgia rheumatica Presence of insulin pump RLS (restless legs syndrome) Type 1 diabetes mellitus Vitamin D deficiency Wears dentures Wears glasses Home Medications atorvastatin 40 mg tablet 40 mg PO QHS cholesterol 06/27/15 [History Last Taken 06/26/15] clopidogrel 75 mg tablet 75 mg PO DAILY anti platelet 06/27/15 [History Last Taken 04/02/23] lansoprazole 30 mg capsule,delayed release 30 mg PO BID reflux 06/27/15 [History Last Taken 06/27/15] albuterol sulfate 2.5 mg/3 mL (0.083 %) solution for nebulization 2.5 mg inhalation Q6H PRN Bronchodialation 03/30/17 [History Last Taken Unknown] diclofenac sodium 1 % topical gel (Voltaren) 2 g topical BID PRN Pain/Inflammation 03/30/17 [History Last Taken Unknown] multivitamin 1 tab PO QAM vitamin 03/30/17 [History Last Taken Unknown] tramadol 50 mg tablet 50 mg PO Q6H PRN pain 06/21/18 [History Last Taken Unknown] amlodipine 5 mg tablet 5 mg PO DAILY #90 tabs 09/22/18 [Rx Last Taken 04/08/23] lactobacillus combination no.9 4 billion cell capsule (Adult 50 Plus Probiotic) 4,000 mmu cells PO DAILY supplement 10/14/18 [History Last Taken Unknown] simethicone 180 mg capsule (Phazyme) 360 mg PO DAILY PRN Indigestion 10/14/18 [History Last Taken Unknown] biotin 1 mg capsule 1 mg PO DAILY 10/14/19 [History Last Taken Unknown] acetaminophen 325 mg tablet 650 mg PO Q6H PRN pain 05/24/20 [History Last Taken Unknown] montelukast 10 mg tablet (Singulair) 10 mg PO QHS BREATHING 05/24/20 [History Last Taken Unknown] pramipexole 1 mg tablet 2 mg PO QHS 05/24/20 [History Last Taken Unknown] lidocaine 5 % topical patch 1 patch topical DAILY PRN pain 01/21/21 [History Last Taken Unknown] aspirin 81 mg tablet,delayed release (Adult Low Dose Aspirin) 81 mg PO DAILY 07/05/21 [History Last Taken 04/02/23] lancets (Accu-Chek Fastclix Lancet Drum) #200 ea 11/04/21 [Rx Last Taken Unknown] cholecalciferol (vitamin D3) 125 mcg (5,000 unit) tablet 125 mcg PO DAILY 05/28/22 [History Last Taken Unknown] losartan 100 mg tablet See Rx Instructions .Route .COMPLEX #90 tabs 10/23/22 [Rx Last Taken 04/08/23] Humalog U-100 Insulin 100 unit/mL subcutaneous solution (insulin lispro) 100 unit subcut QDAY #90 mL 03/16/23 [Rx Last Taken Unknown] albuterol sulfate 90 mcg/actuation aerosol inhaler 1 inh inhalation Q4H PRN shortness of breath or wheezing 04/06/23 [History Last Taken Unknown] fluticasone fur. 200 mcg-umeclid 62.5 mcg-vilant 25 mcg inhalat.powder (Trelegy Ellipta) 1 inh inhalation QHS 04/06/23 [History Last Taken Unknown] hydroxychloroquine 200 mg tablet 200 mg PO BID 04/06/23 [History Last Taken Unknown] lactulose 10 gram/15 mL oral solution 10 g PO BID 04/06/23 [History Last Taken Unknown] Allergy/AdvReac Type Severity Reaction Status Date / Time amoxicillin [From Augmentin] Allergy Severe Unknown Verified 05/23/23 14:53 clavulanic acid Allergy Severe Unknown Verified 05/23/23 14:53 [From Augmentin] amitriptyline Allergy Other Verified 05/23/23 14:53 cefadroxil [Cefadroxil] Allergy Hives Verified 05/23/23 14:53 ephedrine Allergy HEART RACES Verified 05/23/23 14:53 erythromycin estolate Allergy Angioedema, Verified 05/23/23 14:53 [From Ilosone] HEART RACING iodine Allergy Hives, Verified 05/23/23 14:53 ITCHING levofloxacin Allergy Unknown Verified 05/23/23 14:53 nortriptyline [Nortriptyline] Allergy Unknown Verified 05/23/23 14:53 oxycodone [Oxycodone] Allergy CONFUSION Verified 05/23/23 14:53 oxycodone HCl [From Percocet] Allergy CONFUSION Verified 05/23/23 14:53 Sulfa (Sulfonamide Allergy Rash Verified 05/23/23 14:53 Antibiotics) pregabalin [From Lyrica] AdvReac Severe Vomiting Verified 05/23/23 14:53 hydrochlorothiazide AdvReac Intermediate Hypotension Verified 05/23/23 14:53 acetaminophen [From Percocet] AdvReac Other Verified 05/23/23 14:53 aspirin [From Aggrenox] AdvReac Vomiting Verified 05/23/23 14:53 cephalexin AdvReac Nausea/Vom/ Verified 05/23/23 14:53 Diarrhea doxycycline AdvReac Nausea/Vom/ Verified 05/23/23 14:53 Diarrhea duloxetine HCl AdvReac HEADACHE, Verified 05/23/23 14:53 [From Cymbalta] STOMACH ACHE Family History Father , age 76 No problems noted. Mother , Age 74 Breast cancer Thyroid disorder Heart disease Valvular heart disease Brother Heart disease, Onset Age: 52 Heart valve/murmur Surgical History axillary cyst removal bilat hand surgery H/O breast biopsy H/O lumpectomy H/O shoulder surgery H/O: History of coronary artery stent placement (06/26/00) History of esophagogastroduodenoscopy (EGD) History of left heart catheterization (07/01/05) nasal growth removal Social History Smoking Status: Never smoker alcohol intake: never substance use type: does not use caffeine: No ROS <RODERICK Jarrell - Last Filed: 05/23/23 16:45> ROS ED Constitutional Constitutional ED: Denies chills or fever(s) Cardiovascular Cardiovascular: Denies chest pain Respiratory/Chest Respiratory/Chest: Denies cough or dyspnea Gastrointestinal Gastrointestinal: Denies abdominal pain, nausea or vomiting Musculoskeletal Musculoskeletal: Reports arthralgias; Denies myalgias Integumentary Denies Abrasions Neurologic Neurologic: Denies paresthesias or weakness EXAM <Dr. aGbriel Abernathy, - Last Filed: 05/23/23 16:15> Physical Exam Const Vital Signs: 05/23/23 14:54 Temperature 96.7 F L Temperature Source Temporal Pulse Rate 75 Respiratory Rate 16 Blood Pressure 174/82 H Blood Pressure Mean 112 Pulse Ox 99 Oxygen Delivery Method Room Air <RODERICK Jarrell - Last Filed: 05/23/23 16:45> Physical Exam Const Vital Signs: 05/23/23 14:54 Temperature 96.7 F L Temperature Source Temporal Pulse Rate 75 Respiratory Rate 16 Blood Pressure 174/82 H Blood Pressure Mean 112 Pulse Ox 99 Oxygen Delivery Method Room Air Positive well nourished, well developed and no apparent distress General Appearance ED: well developed HEENT Reports normocephalic and head/scalp atraumatic Mouth ED: Yes moist mucous membranes normal Eyes PERRL and EOMs intact bilaterally Neck full ROM and supple Chest Wall inspection of chest normal Resp normal respiratory effort and clear to auscultation bilaterally Cardio regular rate and regular rhythm GI soft to palpation, non-tender, non-distended and no masses Back/Spine normal ROM and normal to inspection Extremity normal to inspection Extremity Narrative: Decreased range of motion to the right knee due to pain. No joint effusion or signs of septic joint. Pain to palpation along the medial joint line. Right DP pulse 2+, good capillary refill, sensation intact. Neuro oriented x3, CN's II-XII intact bilaterally, moves all extremities, no focal motor deficits and no sensory deficits noted Sensorium / Orientation: awake and alert Motor Exam: strength 5/5 throughout Psych mental status grossly normal Skin no rashes or lesions noted and no wounds MDM <Dr. Gabriel Abernathy, DO - Last Filed: 05/23/23 16:15> [facility] Radiography Diagnostic Testing: Clinical Impression(s) from Imaging Studies Knee X-Ray 05/23/23 15:25 IMPRESSION: Negative right knee x-rays. Electronically Signed: Ger Washington MD at 16:04 EST , Additional Tests and Interventions Additional Tests or Interventions: I have personally performed a face to face assessment of the patient and have reviewed the PHILIP Note. I performed a substantive portion of the visit including all aspects of the following. My marie findings include: History: Patient presents with right knee pain that has been getting worse over the past 3 days. Patient states it is gradually getting worse. Patient states it is worse with certain movements. Patient states it is better with rest. Patient describes her pain as stabbing. Patient denies any trauma or injury. states that he was trying to help her take her pants off a few days ago and her pain became worse after that. Patient denies any snapping or popping sensation. Exam: Vital signs are stable except for mildly elevated blood pressure 174/82. Patient is afebrile. Patient is in no acute distress. Musculoskeletal exam reveals tenderness over the right knee. There is no effusion. There is no ecchymosis. There is no edema noted. Range of motion was limited in all motions of the right knee secondary to pain. Strength is 5/5 bilaterally in the lower extremities. Extensor mechanism is intact. There is no appreciable laxity however, the patient was guarding on examination. Pedal pulses are equal bilaterally. Sensation was intact to light touch bilaterally in the lower extremities. There is no calf tenderness noted. Medical Decision Making: Differential diagnosis includes degenerative arthritis, sprain, and occult fracture. X-rays of the right knee will be obtained to assess for fracture. X-rays of the right knee were obtained. There are 3 views. On my independent interpretation, there is no acute fracture or dislocation noted. There are some degenerative joint changes noted. There is calcification of the popliteal artery. Radiologist also interpreted the x-rays and agrees. Patient was instructed to ice and elevate the right knee. Patient was instructed to continue her pain medications as previously prescribed. Patient was instructed to use her rollator walker to help with ambulation. Patient was instructed to follow-up with her primary care physician in 5 to 7 days. Patient understood and was agreeable with the plan. All questions were answered. <RODERICK Jarrell - Last Filed: 05/23/23 16:45> [facility] Narrative Medical decision making narrative: Patient presenting with right knee pain that she has had for 2 days. X-ray of the right knee obtained and is negative for any acute findings. She does have a pain management doctor who have encouraged her to follow-up with, she is also to follow-up with her PCP. RICE instructions have been given. She will be discharged home in stable condition and is comfortable with plan. Radiography X-Ray: Read by ED Physician and Read by Radiologist Diagnostic Testing: Clinical Impression(s) from Imaging Studies Knee X-Ray 05/23/23 15:25 IMPRESSION: Negative right knee x-rays. Electronically Signed: Ger Washington MD at 16:04 EST , Discharge Plan Triage Chief Complaint: Lower Extremity Injury ED Midlevel Provider: Brandie Travis ED Provider: Gabriel Abernathy Dx/Rx/DC Orders Clinical Impression: Knee pain, right Instructions: ED Knee Pain of Uncertain Cause Prescriptions: No Action albuterol sulfate 2.5 mg /3 mL (0.083 %) solution for nebulization 2.5 mg INHALATION Q6H PRN (Reason: Bronchodialation) multivitamin tablet 1 tab PO QAM diclofenac sodium [Voltaren] 1 % gel 2 g TOPICAL BID PRN (Reason: Pain/Inflammation) Adult 50 Plus Probiotic 4 billion cell capsule 4,000 mmu cells PO DAILY simethicone [Phazyme] 180 mg capsule 360 mg PO DAILY PRN (Reason: Indigestion) acetaminophen 325 mg tablet 650 mg PO Q6H PRN (Reason: pain) tramadol 50 mg tablet 50 mg PO Q6H PRN (Reason: pain) biotin 1 mg capsule 1 mg PO DAILY montelukast [Singulair] 10 mg tablet 10 mg PO QHS pramipexole 1 mg tablet 2 mg PO QHS aspirin [Adult Low Dose Aspirin] 81 mg tablet,delayed release (DR/EC) 81 mg PO DAILY lidocaine 5 % adhesive patch,medicated 1 patch topical DAILY PRN (Reason: pain) Rx Instructions: leave on most painful area for up to 12 hrs atorvastatin 40 MG tablet 40 mg PO QHS Patient Comments: CHOLESTEROL LOWERING clopidogrel 75 MG tablet 75 mg PO DAILY Patient Comments: BLOOD THINNER lansoprazole 30 MG capsule 30 mg PO BID Patient Comments: GERD albuterol sulfate 90 mcg/actuation HFA aerosol inhaler 1 inh INHALATION Q4H PRN (Reason: shortness of breath or wheezing) hydroxychloroquine 200 mg tablet 200 mg PO BID lactulose 10 gram/15 mL solution 10 g PO BID Trelegy Ellipta 200-62.5-25 mcg blister with device 1 inh INHALATION QHS amlodipine 5 mg tablet 5 mg PO DAILY Qty: 90 3RF (DME) lancets [Accu-Chek Fastclix Lancet Drum] Misc See Rx Instructions .Route Qty: 200 3RF Rx Instructions: 4x/day cholecalciferol (vitamin D3) 125 mcg (5,000 unit) tablet 125 mcg PO DAILY losartan 100 mg tablet See Rx Instructions .ROUTE .COMPLEX Qty: 90 3RF Dose Instruction: take 1 tablet by mouth once daily Rx Instructions: take 1 tablet by mouth once daily insulin lispro [Humalog U-100 Insulin] 100 unit/mL solution 100 unit SC QDAY Qty: 90 3RF Rx Instructions: Use with insulin pump E10.65 Primary Care Provider: Alcira Calderon Referrals: Alcira Calderon MD [Primary Care Provider] - 5-7 Days Activity Restrictions/Additional Instructions: Please follow-up with your PCP and pain management doctor. Return for any worsening of your symptoms. Disposition Disposition: Home, Self Care Discharge Date/Time: 05/23/23 16:24
--- NOTE | 2023-05-23 15:25 | RAD_ITS ---
EXAM: XR RIGHT KNEE, 3 VIEWS CLINICAL INDICATION: pain TECHNIQUE: Three views of the right knee. COMPARISON: No relevant prior studies available. FINDINGS: BONES/JOINTS: Unremarkable. No acute fracture. No subluxation. Normal alignment. Preservation of the joint space. No sclerotic or destructive changes observed. SOFT TISSUES: Unremarkable. No soft tissue swelling or gas. No radiopaque foreign body. RAD/Knee 3 Views IMPRESSION: Negative right knee x-rays. Electronically Signed: Ger Washington MD at 16:04 EST ,
--- OUTSIDE RECORDS SUMMARY | 2023-05-23 16:02 | XMS RPT_ITS | CCD ---
Author Name Unknown Address [address] [place] [address] Organization [facility] Care Team Providers Care English Adjunct Faculty Name Role Phone Darryn Anderson Primary Care Provider Darryn Anderson MD Primary Care Provider Darryn Anderson MD Primary Care Provider Raquel Herrera Unavailable Jonas Etienne Unavailable Jeremie Herrera MDa Unavailable Darryn Anderson MD Primary Care Provider Raquel Herrera MD Unavailable Jonas Etienne Unavailable Jeremie Herrera MDa Unavailable Jonas Etienne Unavailable Darryn Anderson MD Primary Care Provider Raquel Herrera MD Unavailable Jonas Etienne Unavailable Darryn Anderson MD Primary Care Provider Darryn Anderson MD Primary Care Provider DARRYN ANDERSON Referring Unavailable DARRYN ANDERSON Primary Care Unavailable MANUELA THOMAS Attending Unavailable IVAN RODRIGUEZ Referring Unavailable DARRYN ANDERSON Primary Care Unavailable IVAN RODRIGUEZ Attending Unavailable GANTA, DARRYN C Primary Care [...] Primary Care Unavailable AMURAO, IVAN Attending Unavailable Lowell DYKES, Jonas Steele Unavailable [phone] GANTA, DARRYN C Referring Unavailable AMURAO, IVAN Attending Unavailable GANTA, DARRYN C Primary Care Unavailable GANTA, DARRYN C Referring Unavailable AMURAO, IVAN Attending Unavailable GANTA, DARRYN C Primary Care Unavailable OLDER, SULTANA Referring Unavailable GRAJEDA, SHAILEY Attending Unavailable GANTA, DARRYN Primary Care Unavailable GRAJEDA, SHAILEY Referring Unavailable GANTA, DARRYN Primary Care Unavailable GRAJEDA, SHAILEY Referring Unavailable GANTA, DARRYN Primary Care Unavailable OLDER, SULTANA Attending Unavailable GANTA, DARRYN Primary Care Unavailable [facility] Referring Unavailable GANTA, DARRYN Primary Care Unavailable LAUREN RANGEL Attending Unavailable GANTA, DARRYN Primary Care Unavailable OLDER, SULTANA Attending Unavailable GANTA, DARRYN Primary Care Unavailable OLDER, SULTANA Referring Unavailable GANTA, DARRYN Primary Care Unavailable OLDER, SULTANA Referring Unavailable GANTA, DARRYN Primary Care Unavailable OLDER, SULTANA Attending Unavailable GANTA, ADRRYN Primary Care Unavailable OLDER, SULTANA Attending Unavailable [...] Primary Care Unavailable GANTA, DARRYN Attending Unavailable OLDER, SULTANA Attending Unavailable GANTA, DARRYN Primary Care Unavailable DENBOW, VIDA Referring Unavailable GANTA, DARRYN Primary Care Unavailable OLDER, SULTANA Referring Unavailable GANTA, DARRYN Primary Care Unavailable GANTA, DARRYN Primary Care Unavailable OLDER, SULTANA Referring Unavailable VETOVITZ, GUI Attending Unavailable GANTA, DARRYN Primary Care Unavailable Allergies Allergy Classification Reported Allergen(s) Allergy Type Date of Onset Reaction(s) Facility (10 sources) Acetaminophen Drug Allergy 5 [facility] (10 sources) Aluminum aspirin Drug Allergy 5 [facility] (20 sources) Amitriptyline; Translations: [AMITRIPTYLINE] Drug Allergy 3 Other: See Comments [facility] (10 sources) Amoxicillin / Clavulanate Drug Allergy 1 [facility] (20 sources) Cefadroxil; Translations: [CEFADROXIL] Drug Allergy 5 Hives [facility] (3 sources) Dipyridamole Drug Allergy 5 [facility] (20 sources) Doxycycline; Translations: [DOXYCYCLINE] Drug Allergy 2 GI Upset [facility] (20 sources) ePHEDrine; Translations: [EPHEDRINE] Drug Allergy 5 Other: See Comments [facility] (20 sources) levoFLOXacin; Translations: [LEVOFLOXACIN] Drug Allergy 3 Other: See Comments [facility] (20 sources) oxyCODONE; Translations: [OXYCODONE] Drug Allergy 5 Mental Status Change [facility] (20 sources) pregabalin; Translations: [PREGABALIN] Drug Allergy 3 Other: See Comments [facility] (3 sources) Sulfonamides (Antibiotic) Propensity to adverse reactions to drug 1 [facility] (20 sources) Acetaminophen / oxyCODONE; Translations: [OXYCODONE-ACETAM INOPHEN] Drug Allergy 1 Unknown [facility] Work Phone: (20 sources) Aspirin / Dipyridamole; Translations: [ASPIRIN-DIPYRIDA MOLE] Drug Allergy 9 [facility] Work Phone: [phone] (20 sources) Cephalexin; Translations: [CEPHALEXIN (BULK)] Drug Allergy 9 GI Upset [facility] Work Phone: [phone] (20 sources) DULoxetine; Translations: [DULOXETINE] Drug Allergy 6 Unknown [facility] Work Phone: (20 sources) Erythromycin Drug Allergy 5 Swelling [facility] (20 sources) Iodine; Translations: [IODINE] Drug Allergy 7 Itching [facility] Work Phone: (20 sources) Nortriptyline; Translations: [NORTRIPTYLINE] Drug Allergy 3 Other: See Comments [facility] Work Phone: (20 sources) Sulfonamides (Antibiotic); Translations: [SULFA (SULFONAMIDE ANTIBIOTICS)] Propensity to adverse reactions 5 [facility] (7 sources) Dipyridamole Propensity to adverse reactions to drug 5 [facility] (7 sources) Pregabalin Propensity to adverse reactions to drug 5 [facility] (2 sources) OTHER; Translations: [OTHER] Propensity to adverse reactions (disorder) 5 [facility] Other [place] [facility] (2 sources) prednisoLONE; Translations: [ISOLONE FORTE] Drug Allergy 3 Swelling [facility] Main [place] [facility] Medications Current Medications Medication Drug Class(es) Dates Sig (Normalized) Sig (Original) adapalene 0.001 mg/mg topical gel (1 source) Retinoid Start: 09-30-2019 adapalene 0.1 % Gel Apply 1 Application topically 2 times daily. 0 09/30/2019 Active [id number] 200 actuat albuterol 0.09 mg/actuat metered dose [...] Coronary atherosclerosis; Translations: [Atherosclerotic heart disease of [place] coronary artery without angina pectoris] Onset: 6 [...] Long-term current use of systemic steroid; Translations: [long term care social worker (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 of systemic steroids] Onset: 1 Episodic Other aftercare (20 sources) Patient encounter status; Translations: [shelter (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 of antithrombotics/antipl atelets] Onset: 0 Resolved: 1 03-04-2021 Episodic Other aftercare (10 sources) H/O: high risk medication; Translations: [Other [facility] (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 therapy] Onset: 3 09-29-2022 Episodic Other aftercare (20 sources) Drug therapy finding; Translations: [Other [facility] (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 therapy] Onset: 2 09-29-2022 Episodic Other aftercare (2 sources) long term care social worker (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 of systemic steroids; Translations: [shelter (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 of systemic steroids] Onset: 1 [...] unspecified] Episodic Other skin disorders (2 sources) [place] - lesion ; Translations: [Corns and callosities] [...] sources) Long-term current use of aspirin; Translations: [long term care social worker (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 of aspirin] Onset: 0 05-16-2019 [...] sources) Long-term current use of aspirin; Translations: [long term care social worker (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 of aspirin] Onset: 05-16-2019 Episodic Other aftercare (1 source) shelter (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 of aspirin; Translations: [shelter (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 of aspirin] Onset: 05-16-2019 Episodic Other aftercare (2 sources) long term care social worker (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 of non-steroidal anti-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 (NSAID); Translations: [long term care social worker (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 of non-steroidal anti-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 (nsaid)] Onset: 09-02-2021 Episodic Other aftercare (2 sources) 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 therapy; Translations: [Other [facility] (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 therapy] Onset: 05-21-2022 Episodic Other [...] disorders (1 source) Corns and callosities; Translations: [[place]] Onset: 06-09-2022 Episodic Pneumonia (except that caused by tuberculosis or sexually transmitted disease) (5 sources) Infective pneumonia; Translations: [Pneumonia, unspecified organism] Onset: 08-04-2022 Episodic Residual codes; unclassified (9 sources) Patient [...] 154.9 cm Juan Grajeda MD Work Phone: [facility] 02-23-2023 13:57-0500 Body temperature 97.9 [degF] Juan Grajeda MD Work Phone: [facility] 02-23-2023 13:57-0500 Body weight 84.82 kg Juan Grajeda MD Work Phone: [facility] 02-23-2023 13:57-0500 Diastolic blood pressure 76 mm[Hg] Juan Grajeda MD Work Phone: [facility] 02-23-2023 13:57-0500 Heart rate 67 /min Juan Grajeda MD Work Phone: [facility] 02-23-2023 13:57-0500 Systolic blood pressure 134 mm[Hg] Juan Grajeda MD Work Phone: [facility] 02-02-2023 09:47-0400 Body height 160 cm Clinton Farrar Jr., DO Work Phone: [facility] 02-02-2023 09:47-0400 Body mass index (BMI) [Ratio] 32.41 kg/m2 Clinton Farrar Jr., DO Work Phone: [facility] 02-02-2023 09:47-0400 Body temperature 97.9 [degF] Clinton Farrar Jr., DO Work Phone: [facility] 02-02-2023 09:47-0400 Body weight 83 kg Clinton Farrar Jr., DO Work Phone: [facility] 02-02-2023 09:47-0400 Diastolic blood pressure 62 mm[Hg] Clinton Farrar JrFaisal, DO Work Phone: [facility] 02-02-2023 09:47-0400 Heart rate 62 /min Clinton Bradleygetachew Magallanes, DO Work Phone: [facility] 02-02-2023 09:47-0400 SaO2% (BldA) [Mass fraction] 97 % Clinton Farrar Jr., DO Work Phone: [facility] 02-02-2023 09:47-0400 Systolic blood pressure 100 mm[Hg] Clinton Bradleytimothyjewels , DO Work Phone: [facility] 01-08-2023 13:30-0400 Body height 160 cm Ivan Quan MD Work Phone: [facility] 01-08-2023 13:30-0400 Body mass index (BMI) [Ratio] 32.42 kg/m2 Ivan Quan MD Work Phone: [facility] 01-08-2023 13:30-0400 Body weight 83.01 kg Ivan Quan MD Work Phone: [facility] 01-08-2023 13:30-0400 Diastolic blood pressure 78 mm[Hg] Ivan Quan MD Work Phone: [facility] 01-08-2023 13:30-0400 Heart rate 67 /min Ivan Quan MD Work Phone: [facility] 01-08-2023 13:30-0400 Respiratory rate 18 /min Ivan Quan MD Work Phone: [facility] 01-08-2023 13:30-0400 SaO2% (BldA) [Mass fraction] 98 % Ivan Quan MD Work Phone: [facility] 01-08-2023 13:30-0400 Systolic blood pressure 122 mm[Hg] Ivan Quan MD Work Phone: [facility] 01-05-2023 10:44-0400 Body weight 85.73 kg Sultana Older [employer]PERINT[employer]ENT [employer].SUGARCANE RESEARCH TECHNICIAN Work Phone: [facility] 01-05-2023 10:44-0400 Diastolic blood pressure 68 mm[Hg] Sultana Older [employer].SUGARCANE RESEARCH TECHNICIAN Work Phone: [facility] 01-05-2023 10:44-0400 Heart rate 64 /min Sultana Older [employer].SUGARCANE RESEARCH TECHNICIAN Work Phone: [facility] 01-05-2023 10:44-0400 Respiratory rate 16 /min Sultana Older [employer].SUGARCANE RESEARCH TECHNICIAN Work Phone: [facility] 01-05-2023 10:44-0400 SaO2% (BldA) [Mass fraction] 98 % Sultana Older [employer].SUGARCANE RESEARCH TECHNICIAN Work Phone: [facility] 01-05-2023 10:44-0400 Systolic blood pressure 128 mm[Hg] Sultana Older [employer].SUGARCANE RESEARCH TECHNICIAN Work Phone: [facility] 11-24-2022 07:17-0400 Body temperature 97.81 [degF] Sultana Older [employer].SUGARCANE RESEARCH TECHNICIAN Work Phone: [facility] 11-24-2022 07:17-0400 Body weight 86.64 kg Sultana Older [employer].SUGARCANE RESEARCH TECHNICIAN Work Phone: [facility] 11-24-2022 07:17-0400 Diastolic blood pressure 78 mm[Hg] Sultana Older [employer].SUGARCANE RESEARCH TECHNICIAN Work Phone: [facility] 11-24-2022 07:17-0400 Heart rate 64 /min Sultana Older [employer].SUGARCANE RESEARCH TECHNICIAN Work Phone: [facility] 11-24-2022 07:17-0400 Respiratory rate 16 /min Sultana Older [employer].SUGARCANE RESEARCH TECHNICIAN Work Phone: [facility] 11-24-2022 07:17-0400 SaO2% (BldA) [Mass fraction] 98 % Sultana Older [employer].SUGARCANE RESEARCH TECHNICIAN Work Phone: [facility] 11-24-2022 07:17-0400 Systolic blood pressure 132 mm[Hg] Sultana Older [employer].SUGARCANE RESEARCH TECHNICIAN Work Phone: [facility] 11-12-2022 14:04-0400 Body height 160 cm Ivan Quan MD Work Phone: [facility] 11-12-2022 14:04-0400 Body mass index (BMI) [Ratio] 35.96 kg/m2 Ivan Quan MD Work Phone: [facility] 11-12-2022 14:04-0400 Body weight 92.08 kg Ivan Quan MD Work Phone: [facility] 11-12-2022 14:04-0400 Diastolic blood pressure 82 mm[Hg] Ivan Quan MD Work Phone: [facility] 11-12-2022 14:04-0400 Heart rate 82 /min Ivan Quan MD Work Phone: [facility] 11-12-2022 14:04-0400 Respiratory rate 15 /min Ivan Quan MD Work Phone: [facility] 11-12-2022 14:04-0400 SaO2% (BldA) [Mass fraction] 97 % Ivan Quan MD Work Phone: [facility] 11-12-2022 14:04-0400 Systolic blood pressure 138 mm[Hg] Ivan Quan MD Work Phone: [facility] 09-29-2022 11:42-0400 Body height 160 cm Clinton Farrar Jr., DO Work Phone: [facility] 09-29-2022 11:42-0400 Body mass index (BMI) [Ratio] 35.97 kg/m2 Clinton Farrar Jr., DO Work Phone: [facility] 09-29-2022 11:42-0400 Body temperature 98.71 [degF] Clinton Farrar Jr., DO Work Phone: [facility] 09-29-2022 11:42-0400 Body weight 92.1 kg Clinton Farrar Jr., DO Work Phone: [facility] 09-29-2022 11:42-0400 Diastolic blood pressure 98 mm[Hg] Clinton Farrar Jr., DO Work Phone: [facility] 09-29-2022 11:42-0400 Systolic blood pressure 138 mm[Hg] Clinton Farrar Jr., DO Work Phone: [facility] 09-18-2022 10:23-0400 Body height 158 cm Darryn Anderson MD Work Phone: [facility] 09-18-2022 10:23-0400 Body weight 84.82 kg Darryn Anderson MD Work Phone: [facility] 09-18-2022 10:23-0400 Diastolic blood pressure 72 mm[Hg] Darryn Anderson MD Work Phone: [facility] 09-18-2022 10:23-0400 Heart rate 64 /min Darryn Anderson MD Work Phone: [facility] 09-18-2022 10:23-0400 Respiratory rate 18 /min Darryn Anderson MD Work Phone: [facility] 09-18-2022 10:23-0400 Systolic blood pressure 132 mm[Hg] Darryn Anderson MD Work Phone: [facility] 08-04-2022 12:41-0400 Body temperature 98.1 [degF] Sultana Older [employer].SUGARCANE RESEARCH TECHNICIAN Work Phone: [facility] 08-04-2022 12:41-0400 Body weight 86.64 kg Sultana Older [employer]PER[employer].SUGARCANE RESEARCH TECHNICIAN Work Phone: [facility] 08-04-2022 12:41-0400 Diastolic blood pressure 86 mm[Hg] Sultana Older [employer]PER[employer].SUGARCANE RESEARCH TECHNICIAN Work Phone: [facility] 08-04-2022 12:41-0400 Heart rate 94 /min Sultana Older [employer].SUGARCANE RESEARCH TECHNICIAN Work Phone: [facility] 08-04-2022 12:41-0400 Respiratory rate 16 /min Sultana Older [employer].SUGARCANE RESEARCH TECHNICIAN Work Phone: [facility] 08-04-2022 12:41-0400 SaO2% (BldA) [Mass fraction] 94 % Sultana Older [employer].SUGARCANE RESEARCH TECHNICIAN Work Phone: [facility] 08-04-2022 12:41-0400 Systolic blood pressure 136 mm[Hg] Sultana Older [employer].SUGARCANE RESEARCH TECHNICIAN Work Phone: [facility] 07-21-2022 11:43-0400 Diastolic blood pressure 76 mm[Hg] Sultana Older [employer].SUGARCANE RESEARCH TECHNICIAN Work Phone: [facility] 07-21-2022 11:43-0400 Systolic blood pressure 138 mm[Hg] Sultana Older [employer].SUGARCANE RESEARCH TECHNICIAN Work Phone: [facility] 07-17-2022 07:56-0400 Body temperature 98.2 [degF] Sultana Older [employer].SUGARCANE RESEARCH TECHNICIAN Work Phone: [facility] 07-17-2022 07:56-0400 Body weight 90.72 kg Sultana Older [employer].SUGARCANE RESEARCH TECHNICIAN Work Phone: [facility] 07-17-2022 07:56-0400 Diastolic blood pressure 72 mm[Hg] Sultana Older [employer].SUGARCANE RESEARCH TECHNICIAN Work Phone: [facility] 07-17-2022 07:56-0400 Heart rate 78 /min Sultana Older [employer].SUGARCANE RESEARCH TECHNICIAN Work Phone: [facility] 07-17-2022 07:56-0400 Respiratory rate 16 /min Sultana Older [employer].SUGARCANE RESEARCH TECHNICIAN Work Phone: [facility] 07-17-2022 07:56-0400 SaO2% (BldA) [Mass fraction] 92 % Sultana Older [employer].SUGARCANE RESEARCH TECHNICIAN Work Phone: [facility] 07-17-2022 07:56-0400 Systolic blood pressure 152 mm[Hg] Sultana Older [employer].SUGARCANE RESEARCH TECHNICIAN Work Phone: [facility] 06-09-2022 11:15-0500 Body temperature 98.1 [degF] Sultana Older [employer].SUGARCANE RESEARCH TECHNICIAN Work Phone: [facility] 06-09-2022 11:15-0500 Body weight 90.27 kg Sultana Older [employer].SUGARCANE RESEARCH TECHNICIAN Work Phone: [facility] 06-09-2022 11:15-0500 Diastolic blood pressure 78 mm[Hg] Sultana Older [employer].SUGARCANE RESEARCH TECHNICIAN Work Phone: [facility] 06-09-2022 11:15-0500 Heart rate 74 /min Sultana Older [employer].SUGARCANE RESEARCH TECHNICIAN Work Phone: [facility] 06-09-2022 11:15-0500 Respiratory rate 16 /min Sultana Older [employer].SUGARCANE RESEARCH TECHNICIAN Work Phone: [facility] 06-09-2022 11:15-0500 SaO2% (BldA) [Mass fraction] 98 % Sultana Older [employer].SUGARCANE RESEARCH TECHNICIAN Work Phone: [facility] 06-09-2022 11:15-0500 Systolic blood pressure 132 mm[Hg] Sultana Older [employer].SUGARCANE RESEARCH TECHNICIAN Work Phone: [facility] 11-05-2021 09:12-0400 Body height 154.9 cm Manuela Thomas [employer].SUGARCANE RESEARCH TECHNICIAN Work Phone: [facility] 11-05-2021 09:12-0400 Body weight 91.63 kg Manueal Thomas [employer].SUGARCANE RESEARCH TECHNICIAN Work Phone: [facility] 11-05-2021 09:12-0400 Diastolic blood pressure 70 mm[Hg] Manuela Thomas [employer].SUGARCANE RESEARCH TECHNICIAN Work Phone: [facility] 11-05-2021 09:12-0400 Heart rate 72 /min Manuela Thomas [employer].SUGARCANE RESEARCH TECHNICIAN Work Phone: [facility] 11-05-2021 09:12-0400 Respiratory rate 18 /min Manuela Thomas [employer].SUGARCANE RESEARCH TECHNICIAN Work Phone: [facility] 11-05-2021 09:12-0400 Systolic blood pressure 120 mm[Hg] Manuela Thomas [employer].SUGARCANE RESEARCH TECHNICIAN Work Phone: [facility] 10-24-2021 08:25-0400 Diastolic blood pressure 76 mm[Hg] Sultana Older [employer].SUGARCANE RESEARCH TECHNICIAN Work Phone: [facility] 10-24-2021 08:25-0400 Heart rate 68 /min Sultana Older [employer].SUGARCANE RESEARCH TECHNICIAN Work Phone: [facility] 10-24-2021 08:25-0400 Systolic blood pressure 134 mm[Hg] Sultana Older [employer].SUGARCANE RESEARCH TECHNICIAN Work Phone: [facility] 09-26-2021 13:44-0400 Diastolic blood pressure 86 mm[Hg] Sultana Older [employer].SUGARCANE RESEARCH TECHNICIAN Work Phone: [facility] 09-26-2021 13:44-0400 Heart rate 72 /min Sultana Older [employer].SUGARCANE RESEARCH TECHNICIAN Work Phone: [facility] 09-26-2021 13:44-0400 Respiratory rate 16 /min Sultana Older [employer]PER[employer].SUGARCANE RESEARCH TECHNICIAN Work Phone: [facility] 09-26-2021 13:44-0400 Systolic blood pressure 134 mm[Hg] Sultana Older [employer].SUGARCANE RESEARCH TECHNICIAN Work Phone: [facility] 03-04-2021 09:39-0500 Body height 160 cm Clitnon Kirkgetachew Magallanes, DO Work Phone: [facility] 03-04-2021 09:39-0500 Body mass index (BMI) [Ratio] 35.96 kg/m2 Clinton Kirktimohtyjewels , DO Work Phone: [facility] 03-04-2021 09:39-0500 Body weight 92.08 kg Clinton Kirktimothyjewels PachecoFaisal, DO Work Phone: [facility] 03-04-2021 09:39-0500 Diastolic blood pressure 84 mm[Hg] Clinton Kirktimothyjewels , DO Work Phone: [facility] 03-04-2021 09:39-0500 Heart rate 77 /min Clinton Farrar Jr., DO Work Phone: [facility] 03-04-2021 09:39-0500 SaO2% (BldA) [Mass fraction] 97 % Clinton Leni PachecoFaisal, DO Work Phone: [facility] [employer] [facility] 03-04-2021 09:39-0500 Systolic blood pressure 132 mm[Hg] Clinton Farrar JrFaisal, DO Work Phone: [facility] 05-16-2019 10:39-0500 Body Temperature 97 [facility]degF] [facility]00 BP Diastolic 76 mm[Hg] [facility]-16[facility] 10:39-0500 BP Systolic 126 mm[Hg] [facility] 05-16-2019 10:39-0500 Pulse (Heart Rate) 64 /min [facility] [employer] 05-16-2019 10:39-0500 Pulse Oximetry 95 % [facility] [employer] [facility] Encounters Encounter Date Encounter Type Care Provider Facility Start: 08-10-2023 ambulatory DARRYN Castro [facility] Start: 05-22-2023 Telephone encounter Sultana Older [employer].SUGARCANE RESEARCH TECHNICIAN Work Phone: [facility] Procedures Date Procedure Procedure Detail Performing Clinician Start: 03-17-2023 Dxa bone density harpreet dy 1/> sites axial skel Juan Grajeda MD Work Phone: Start: 12-04-2022 Echo tthrc r-t 2d w/wom-mode compl spec&colr d Ivan Rodriguez MD Work Phone: Start: 12-04-2022 Ct thorax w/o contra st material Ivna Rodriguez MD Work Phone: Start: 12-04-2022 PFT COMPLETE Ivan Rodriguez MD Work Phone: Start: 12-04-2022 Pulmonary stress testing Ivan Rodriguez MD Work Phone: Start: 10-27-2022 Screening mammograph y bi 2-view breast inc cad Vida Mercado PA-C Work Phone: Start: 08-06-2022 Ct thorax w/contrast material Sultana Harvey [employer].SUGARCANE RESEARCH TECHNICIAN Work Phone: Start: 06-09-2022 Urnls dip stick/tabl et reagent auto microscopy Sultana Older [employer].SUGARCANE RESEARCH TECHNICIAN Work Phone: Start: 06-09-2022 Urnls dip stick/tabl et rgnt auto w/o microscopy Sultana Older [employer].SUGARCANE RESEARCH TECHNICIAN Work Phone: Start: 06-09-2022 Hemoglobin A1c/Hemoglobin.total in Blood Sultana Harvey [employer].SUGARCANE RESEARCH TECHNICIAN Work Phone: Start: 10-22-2021 Screening mammograph y bi 2-view breast inc cad Sultana Harvey [employer].SUGARCANE RESEARCH TECHNICIAN Work Phone: Start: 09-10-2020 Mammography Vicente west [employer].SUGARCANE RESEARCH TECHNICIAN Work Phone: Start: 08-10-2020 End: 03-04-2021 Laboratory test result abnormal Abnormal serum STEFFANY level Clinton Farrar Jr., DO Work Phone: Start: 11-10-2018 Colonoscopy Vicente west APRN.SUGARCANE RESEARCH TECHNICIAN Work Phone: Plan of Treatment Date Care Activity Detail Author Start: 07-31-2031 Tetanus vaccination [facility] Start: 07-31-2031 Urine microalbumin profile DTaP,Tdap,Td Vaccine (3 - Td or Tdap) [facility] Start: 05-18-2024 Annual PCP Team Can Repairer rafaela Disease Visit Annual PCP Team Chronic Disease Visit [facility] Start: 05-18-2024 BP Controlled (<130/80) BP Controlle d (<130/80) [facility] Start: 01-10-2024 Covid-19 Vaccine ( season) Covid-19 Vaccine ( season) [facility] Immunizations Immunization Date Immunization Notes Care Provider Ethan horan 12-12-2022 influenza (aIIV4) vaccine, age 65+ yr, quadrivalent, PF (FLUAD QUAD) Sultana Harvey APRN.SUGARCANE RESEARCH TECHNICIAN Work Phone: [facility] 01-03-2022 influenza virus vacc ine, unspecified formulation Ivan Quan MD Work Phone: [facility] 01-13-2021 COVID-19 vaccine, ag e 12+ yr (PFIZER-BIONTResponde Ai - PURPLE TOP) Vicente Mcgrath APRN.SUGARCANE RESEARCH TECHNICIAN Work Phone: [facility] 12-29-2020 influenza, high dose seasonal, preservative-free Vicente Mcgrath APRN.SUGARCANE RESEARCH TECHNICIAN Work Phone: [facility] Work Phone: 12-29-2020 influenza, high-dose , quadrivalent vaccine (FLUZONE HIGH DOSE QUADRIVALENT) Vicente Mcgrath APRN.SUGARCANE RESEARCH TECHNICIAN Work Phone: [facility] 12-23-2019 influenza, injectabl e, quadrivalent, preservative free Vicente Mcgrath APRN.SUGARCANE RESEARCH TECHNICIAN Work Phone: [facility] 09-15-2019 zoster vaccine recombinant Vicente Mcgrath APRN.SUGARCANE RESEARCH TECHNICIAN Work Phone: [facility] 02-14-2019 zoster vaccine recombinant Vicente Mcgrath APRN.SUGARCANE RESEARCH TECHNICIAN Work Phone: [facility] 01-13-2019 influenza, injectabl e, quadrivalent, preservative free Vicente Alcides [employer]INTENDENT [employer]PER[employer].SUGARCANE RESEARCH TECHNICIAN Work Phone: [facility] 12-19-2018 influenza, seasonal, injectable, preservative free Vicente Alcides SUPERINTENDENT OPERATIONS [employer].SUGARCANE RESEARCH TECHNICIAN Work Phone: [facility] 02-04-2018 influenza, injectabl e, quadrivalent, preservative free Vicente Alcides SUPERINTENDENT OPERATIONS [employer].SUGARCANE RESEARCH TECHNICIAN Work Phone: [facility] 09-22-2017 pneumococcal polysaccharide vaccine, 23 valent Vicente Alcides SUPERINTENDENT OPERATIONS [employer].SUGARCANE RESEARCH TECHNICIAN Work Phone: [facility] 12-23-2016 influenza, high dose seasonal, preservative-free Vicente Alcides SUPERINTENDENT OPERATIONS [employer]ISION.[facility] Work Phone: [facility] 02-27-2016 influenza, high dose seasonal, preservative-free Vicente Alcides SUPERINTENDENT OPERATIONS DIVISION.SUGARCANE RESEARCH TECHNICIAN Work Phone: [facility] 02-27-2016 pneumococcal conjuga te vaccine, 13 valent Vicente Alcides SUPERINTENDENT OPERATIONS DIV[employer].SUGARCANE RESEARCH TECHNICIAN Work Phone: [facility] 02-17-2016 pneumococcal polysaccharide vaccine, 23 valent Vicente Alcides SUPERINTENDENT [employer]PERATIONS [employer].[facility] Work Phone: [facility] Work Phone: 03-30-2015 pneumococcal conjuga te vaccine, 13 valent Vicente Alcides SUPERINTENDENT [employer]PERATIONS [employer].[facility] Work Phone: [facility] Work Phone: 01-29-2015 influenza, high dose seasonal, preservative-free Vicente Alcides SUPERINTENDENT OPERATIONS DIVISION.SUGARCANE RESEARCH TECHNICIAN Work Phone: [facility] 01-29-2015 pneumococcal conjuga te vaccine, 13 valent Vicente Alcides SUPERINTENDENT OPERATIONS DIVISION.SUGARCANE RESEARCH TECHNICIAN Work Phone: [facility] 01-18-2015 influenza, seasonal, injectable, preservative free Vicente Alcides SUPERINTENDENT OPERATIONS DIVISION.SUGARCANE RESEARCH TECHNICIAN Work Phone: [facility] 01-18-2015 pneumococcal conjuga te vaccine, 13 valent Vicente Alcides SUPERINTENDENT OPERATIONS DIVISION.SUGARCANE RESEARCH TECHNICIAN Work Phone: [facility] 01-15-2012 tetanus toxoid, redu winnie diphtheria toxoid, and acellular pertussis vaccine, adsorbed Vicente Mcgrath APRN.[facility] Work Phone: [facility] Work Phone: 01-10-2012 influenza, seasonal, injectable, preservative free Vicente Mcgrath APRN.[facility] Work Phone: [facility] 04-20-2011 pneumococcal polysaccharide vaccine, 23 valent Vicente Mcgrath SUPERINTENDENT OPERATIONS [employer].[facility] Work Phone: [facility] 02-06-2011 influenza virus vacc ine, unspecified formulation Vicente Mcgrath SUPERINTENDENT [employer]PERATIONS [employer].[facility] Work Phone: [facility] Work Phone: 11-14-2009 zoster vaccine, live Vicente potts APRN.[facility] Work Phone: [facility] 02-21-2009 novel influenza-H1N1 -09, preservative-free, injectable Vicente Mcgrath APRN.[facility] Work Phone: [facility] 01-15-2009 influenza virus vacc ine, unspecified formulation Vicente Mcgrath SUPERINTENDENT OPERATIONS [employer].[facility] Work Phone: [facility] Work Phone: 02-08-2008 influenza virus vacc ine, unspecified formulation Vicente Mcgrath APRN.[facility] Work Phone: [facility] Work Phone: 03-23-2006 pneumococcal polysaccharide vaccine, 23 valent Vicente Mcgrath APRN.[facility] Work Phone: [facility] Work Phone: 02-09-2006 influenza virus vacc ine, unspecified formulation Vicente Mcgrath SUPERINTENDENT OPERATIONS DIV[employer].[facility] Work Phone: [facility] Work Phone: 01-19-2004 influenza virus vacc ine, unspecified formulation Vicente Mcgrath APRN.[facility] Work Phone: [facility] 01-19-2004 tetanus and diphther ia toxoids, not adsorbed, for adult use Vicente Mcgrath APRN.[facility] Work Phone: [facility] 11-18-1998 pneumococcal polysaccharide vaccine, 23 valent Vicente Mcgrath APRN.SUGARCANE RESEARCH TECHNICIAN Work Phone: [facility] Payers Date Payer Category Payer Unknown LEONEL CASTANEDA O PPO POS xxxxxxxxx 2019-Present xxxxxxxxx [id number] 2019 Medicare MEDICARE MEDICAR E A AND B xxxxxxxxxxx 2019-Present [place], [place] xxxxxxxxxxx [id number] 2010 Unknown [id number] 2010 Unknown [id number] 2010 Unknown [id number] 2010 Medicare [id number] 2010 Medicare [id number] 2010 Medicare [id number] 1945 Unknown [id number] 1946 Unknown [id number] 1946 Unknown [id number] 1946 Unknown [id number] 1946 Unknown [id number] 1946 Unknown [id number] 1946 Unknown [id number] [id number] 1946 Unknown [id number] [id number] 1946 Unknown [id number] 1946 Unknown [id number] [id number] 1946 Unknown [id number] 1946 Unknown [id number] Social History Date Type Detail Facility Start: 09-25-2010 End: 05-16-2019 Tobacco smoking status NHIS Never smoker [facility] Start: 05-16-2019 End: 02-02-2023 Alcohol intake Lifetime non-drinker (finding) [facility] Start: 05-16-2019 End: 06-04-2022 History SDOH Alcohol Frequency 1 [facility] Start: 1945 Sex Assigned At Not on file [facility] Start: 09-25-2010 End: 05-16-2019 Tobacco use and exposure Smokeless tobacco non-user [facility] Start: 05-21-2021 End: 04-06-2023 Alcohol intake Current non-drinker of alcohol (finding) [facility] Start: 10-05-2019 End: 06-04-2022 History SDOH Alcohol Std Drinks 98 [facility] Start: 03-19-2020 History SDOH Social Connections Phone 5 [facility] Start: 10-05-2019 End: 06-04-2022 History SDOH Social Connections Membership 2 [facility] Start: 10-05-2019 End: 06-04-2022 History SDOH Social Connections Living 3 [facility] Start: 03-19-2020 End: 06-04-2022 History SDOH Physical Activity DPW 0 [facility] Start: 03-19-2020 End: 06-04-2022 History SDOH Financial 4 [facility] Start: 03-19-2020 Education 21 [facility] Start: 1945 Sex Assigned At Female [facility] Start: 09-10-2021 End: 12-30-2021 Exposure to SARS-CoV-2 (event) Not sure [facility] Start: 09-13-2021 End: 10-24-2021 Exposure to SARS-CoV-2 (event) Unable to assess [facility] Start: 05-16-2019 End: 09-18-2022 History of Social function [facility] Start: 05-16-2019 End: 09-18-2022 Alcohol Use Disorder Identification Test - Consumption [AUDIT-C] [facility] Frequency of Alcohol Consumption Never [facility] Do you belong to any clubs or organizations such as tenriism groups, unions, fraternal or athletic groups, or school groups? No [facility] Are you now , , , , never or living with a partner? [facility] How often to you hav e a drink containing alcohol? Never [facility] How hard is it for y ou to pay for the very basics like food, housing, medical care, and heating Somewhat hard [facility] Do you feel stress - tense, restless, nervous, or anxious, or unable to sleep at night because your mind is troubled all the time - these days [OSQ] Not at all [facility] (I/We) worried wheth er (my/our) food would run out before (I/we) got money to buy more. DK or Refused [facility] Start: 11-10-2018 Gender identity Identifies as female gender (finding) [facility] Start: 11-10-2018 Sexual orientation Heterosexual (finding) [facility] Medical Equipment Procedure Code Equipment Code Equipment Origin al Text Equipment Identifier Dates [id number] Start: 09-30-2019 End: 02-23-2023 Clinical Notes 09-29-2019 to 05-22-2023 Telephone Encounter - Michelle Baird Ma - 05/22/2023 1:34 PM ESTTelephone Encounter - Sultana Harvey APRN.CNP - 05/22/2023 11:30 AM ESTTelephone Encounter - Michelle Baird Ma - 05/22/2023 10:39 AM EST Note Date & Type Note Facility 05-22-2023 Miscellaneous Notes Patient notified. Arthritic changes to hip only on xray. No fracture noted to hip or spine. Yes she should be using the voltaren gel as ordered by pain management. Thank you Sultana Harvey APRN.SUGARCANE RESEARCH TECHNICIAN X-ray's printed and given to provider for review. Patient calls and states that she right hip x ray done on 05/18/2023 at [facility]. Patient asking about the results of these? Patient also asking if there is anything she can put on the right knee for the pain? Patient does have Voltaren cream that Dr. Harding had prescribed. Patient asking is she can use that cream? Please review and advise, Nara Argueta RN documented in this encounter [facility] 05-18-2023 Note [facility] 04-06-2023 Note [facility] 03-17-2023 Note [facility] 03-17-2023 History of Present illness Narrative Radiology [...] 2023 9:41 AM documented in this encounter [facility] 03-10-2023 Miscellaneous Notes Spoke with pt and information listed below given. Pt verbalizes understanding. Mia iN LPN RSV vaccine is recommended, and should be obtained from her pharmacy. Pt called to see if she is to get the RSV vaccine. Declined apt int he office to discuss. Reports Sultana knows what all she has going on. Pt will need to be instructed to get at the pharmacy. Mia Ni LPN documented in this encounter [facility] 03-04-2023 Miscellaneous Notes Patient has been [...] you. Rylee Wheat. documented in this encounter [facility] 02-23-2023 Note [facility] 02-23-2023 Miscellaneous Notes Phone and spoke with Vida (nurse) at Dr. Yann Garcia DO at [facility]. . Verified that this was the correct office and fax number . Faxed paperwork as requested. Fax confirmation received. Wally Haynes R.N. documented in this encounter [facility] 02-23-2023 Instructions Juan Grajeda MD - 02/23/2023 2:48 PM EST Please ensure that you are taking adequate calcium and vitamin D through your diet, and supplement as needed with nycd-shn-kpvdcpq tablets. You should be getting a total of calcium 1000mg daily and vitamin D 800-1000 international units daily through diet and supplements. Foods and drinks with calcium Food Calcium in milligrams Milk (skim, 2%, or whole; 8 oz [240 mL]) 300 Yogurt (6 oz [168 g]) 250 White Pine juice (with calcium; 8 oz [240 mL]) [...] 50 to 135 Almonds (24 whole) 70 [place] (1 medium) 60 Selected food sources of vitamin D[1] Food Amount per serving In international units (IU) In micrograms Cod liver oil, 1 tablespoon (15 mL) 1360 34 [place] (sockeye), cooked, 3 ounces (85 g) 380 [...] D-fortified, 8 ounces (240 mL) 100 2.5 White Pine juice fortified with vitamin D, 8 ounces [...] cooked, 3.5 ounces (100 g) 46 1 Weiow-xq-ued cereal, fortified with vitamin D, 6 to 8 ounces (227 g) (more heavily fortified cereals might provide more of the DV) 40 1 Egg, 1 whole (vitamin D is found in yolk) 25 0.6 Cheese, Maldivian, 1 ounce (29 g) 6 0 In [...] USDA Nutrient Database for Standard Reference, Release 28 2017. documented in this encounter [facility] 02-23-2023 History of Present illness Narrative On 02/23/2023, I had the pleasure of seeing Mckayla Russo at the [facility]. Mckayla Russo was referred by Sultana Harvey for an opinion and advice regarding seropositive RA. My findings and final recommendations will be communicated to the requesting health care provider by way of the shared medical record for internal providers or letter via the [employer] for external providers. Chief complaint: Seropositive RA HPI: To review, Mckayla Russo is a 77 year old female *Re: BMD - Around , broke L wrist after slipping on ice [...] diagnosed with ILD. Sees Dr. Garcia in [place] for pulmonary - In Nov, advised to stop HCQ completely per licensed prosthetist as he didn't think she had RA - In Dec, was told by research program coordinator to continue HCQ, to never stop it. - In Jan, advised to resume HCQ once daily per licensed prosthetist (but didn't say why). - Today, reports [...] TUNNEL BILATERRAL 08/08/2005 Coronary artery disease involving greenville coronary artery Dr. 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 [...] but to let us know if the research program coordinator feels like additional tx is needed from the ILD standpoint so that we can provide input as needed - Continue pulmonary management of ILD 2. History of osteopenia: Multiple remote fractures, not clearly fragility fractures per history. Remote use of fosamax - per the medication list although she doesn't recall this. DEXA with normal BMD, Nov DXA with osteopenia - Continue calcium and vitamin D supplementation - Check vitamin D level. Notify of results via MyChart - Check DEXA. Notify of results via MyChart 3. General health maintenance: - Advised to continue follow-up with PCP for routine health maintenance and malignancy screening Follow-up in 5, 10 & 20 months with Maury and 15 months with me. Thank you for allowing me to participate in the care of your patient. Juan Grajeda MD I spent a total of 65 minutes on the date of the service which included preparing to see the patient, hbod-cj-sief patient care, completing clinical documentation, obtaining and/or reviewing separately obtained history, performing a medically appropriate examination, counseling and educating the patient/family/caregiver, ordering medications, tests, or procedures, independently interpreting results (not separately reported), and communicating results to the patient/family/caregiver. 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 Hand cramps are sometimes worse since falling [...] Weakness present. Gait: Gait abnormal. 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 Walker Neurological Exam Mental Status Alert. Oriented to person, place, and time. Cranial Nerves CN II: Vision test: glasses. CN III, IV, : Extraocular movements intact bilaterally. Pupils equal round and reactive to light bilaterally. Gait Abnormal gait. Decreased look out tower fire watcher strength both hands. Walker. Assessment and Plan Encounter Diagnoses Name Primary? Rheumatoid arthritis of multiple sites with negative rheumatoid factor Yes History of rheumatoid arthritis History of stroke shelter (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 of aspirin shelter current use of non-steroidal anti-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 (NSAID) shelter current use of systemic steroids Long-term use [...] and trazodone 28. Pulmonary F/U per Dr. Rodriguez 29. Rx given for Plaquenil to increase to 1 pill a day 30. Lab on or about 07/21/2023 31. F/U with me in 6 months documented in this encounter [facility] 01-09-2023 Note [facility] 01-09-2023 Note [facility] 01-08-2023 Evaluation + Plan note Associated Problem(s): [...] - Influenza, pneumococcal, COVID19 vaccines recommended, updated [facility] 01-08-2023 Miscellaneous Notes Associated Problem(s): Asthma - [...] SSA, SSB, SCL70, CCP, RF, ANCAs. MPO, [place]# - Negative. - 12/04/2022 LABS: CK 64 [...] exclude asthma, RAD. documented in this encounter [facility] 01-08-2023 Evaluation + Plan note Associated [...] SSA, SSB, SCL70, CCP, RF, ANCAs. MPO, NJ# - Negative. - 12/04/2022 LABS: CK 64 [...] further evaluation, management pending results, clinical course. T [facility] 01-08-2023 Evaluation + Plan note Associated Problem(s): SOLE on CPAP Had sleep study and given CPAP yrs - unable to use, tolerate; also given O2 HS subseq. [facility] 01-08-2023 Evaluation + Plan note Associated Problem(s): [...] etc). Results do not exclude asthma, RAD. [facility] 01-08-2023 History of Present illness Narrative Do you smoke?- never Oxygen use ___no___ patient is benefiting from oxygen use. Do you have a CPAP- Cpap lives in [place] [employer] [facility] Most recent CT - 12/04/22 Most recent [...] persistent J45.909 EXERCISE-6 MIN. WALK PFT COMPLETE Rkcznkgohzu-Ibwngnkud-Menxkf (Trelegy Ellipta) 200-62.5-25 MCG/ACT Aerosol Powder, breath activated DISCONTINUED: Xtqsfulyfjl-Bvnsmmlvz-Zkejet (Trelegy Ellipta) 200-62.5-25 MCG/ACT Aerosol Powder, breath [...] pneumococcal, COVID19 vaccines recommended, updated Relevant Medications Fldepzinttl-Kqgjkbdjk-Xbwuab (Trelegy Ellipta) 200-62.5-25 MCG/ACT Aerosol Powder, breath [...] SSA, SSB, SCL70, CCP, RF, ANCAs. MPO, NJ# - Negative. - 12/04/2022 LABS: CK 64 [...] - Take as directed ALBUTEROL SULFATE NEBU [id number] Amara Troy 11[birth year]2010 [facility] ([id number]), Disp: , Rfl: amLODIPine 5 MG Tab [...] Gluc Sensor (FREESTYLE GERBER 14 DAY SENSOR) [facility] [place]p: , Rfl: Diclofenac Sodium 1 % Gel gel, diclofenac VOLTAREN 1 % GEL apply topically twice daily as needed DICLOFENAC SODIUM [id number] Leandra Whitney RN 01-31-2014 [facility] ([id number]), Disp: , Rfl: Diclofenac Sodium 1 % Gel gel, apply 3 grams to THE PAINFUL AREA topically once daily for 28 DAYS, Disp: , Rfl: docusate 100 MG capsule, Take 1 capsule by mouth 2 times daily., Disp: , Rfl: ergocalciferol 1.25 MG (04384 UT) capsule, Take by mouth., Disp: , Rfl: Keuvjvgdrev-Ztgsnfsmv-Fguobl (Trelegy Ellipta) 200-62.5-25 MCG/ACT Aerosol Powder, breath [...] One tablet by mouth daily MULTIPLE VITAMIN [id number] Amara Troy 11-22-2009 [facility] ([id number]), Disp: , Rfl: nitroGLYCERIN 0.4 MG/SPRAY Solution, nitroglycerin NITROLINGUAL 0.4 MG/SPRAY SOLN 1 spray under tongue every 5min up to 3 X (400mcg per spray) NITROGLYCERIN [id number] Leon Seaman MD 11-30-2012 Debora Myres RN [facility] ([id number]), Disp: , Rfl: pramipexole 1 MG tablet, [...] mouth daily as needed., Disp: , Rfl: Qhvblsorsah-Gcbrtmzjo-Vkdgvz (Trelegy Ellipta) 200-62.5-25 MCG/ACT Aerosol Powder, breath [...] you have a CPAP- Cpap lives in [place] Most recent CT - 12/04/22 Most recent [...] encounter. Note: This dictation was generated using [employer] voice recognition software. Please excuse any typographical, grammatical or spelling errors that may have occurred using the system Ivan Rodriguez MD, MPH, [facility] Pulmonary/Critical Care Medicine [facility] 01/08/2023 documented in this encounter [facility] 01-05-2023 Note [facility] 01-05-2023 History of Present illness Narrative CC: [...] pain with previous diagnosis of RA. Recent licensed prosthetist does not feel she has this so scheduled with new Reliability Technologist and sees Dr. Grajeda in February for a second opinion. We are prescribing the hydroxychloroquine until seen by Dr. Grajeda. When previously licensed prosthetist decreased it, patient reported increase in pain so previous dosage initiated. ILD: Was seeing bruin pulmonology who felt the RA was resulting in her lung concerns but is now seeing a new research program coordinator she feels is very thorough and just [...] 10/18/2020 7.3 ) Wants to see new casting operator as her recent one has had issues [...] TUNNEL BILATERRAL 08/08/2005 Coronary artery disease involving green[place] coronary artery Dr. Pederson follows regularly; S/P PTCA and stenting at [facility], 2000 Coronary atherosclerosis of unspecified type of vessel, [place] or graft Disorder of bone and cartilage, [...] current and medications and schedule with [facility] casting operator. We should be getting one in [place] but I am unsure when. 2. Hypertension, [...] - continue hydroxychloroquine until seen by new licensed prosthetist - continue with regular eye exams. 5. [...] Patient agreeable to treatment plan. Sultana Harvey APRN.TIM documented in this encounter [facility] 12-17-2022 Miscellaneous Notes PDMP website checked [...] ordered. Please advise. documented in this encounter [facility] 12-09-2022 Miscellaneous Notes Pt called in and reports she is going to be dropping off paperwork today from Specialist [facility] provider wanted her to go to. documented in this encounter [facility] 12-05-2022 Note [facility] 12-05-2022 History of Present illness Narrative POPULATION [...] 2022 3:32 PM documented in this encounter [facility] 12-04-2022 Miscellaneous Notes - 12/04/2022 Echocardiogram reviewed: technically difficult study; Normal left, right heart function (LVEF 70%, mild diastol dysfunction), Mod. Aortic valve sclerosis w/ mild ; No pulmonary hypertension. - consider routine referral to cardiology for ffup of mild Aortic Stenosis Will discuss details further during follow-up visit. documented in this encounter [facility] 12-04-2022 Progress note Formatting of t his note might be different from the original. - 12/04/2022 Echocardiogram reviewed: technically difficult study; Normal left, right heart function (LVEF 70%, mild diastol dysfunction), Mod. Aortic valve sclerosis w/ mild ; No pulmonary hypertension. - consider routine referral to cardiology for ffup of mild Aortic Stenosis Will discuss details further during follow-up visit. [facility] 12-04-2022 Procedure note Associated Ord er(s): PFT [...] above report was entered in part using [employer] voice recognition medical dictation software. Although I have reviewed this report for accuracy, certain words and phrases may not be entered as intended. Please excuse typographical and grammatical errors.) [employer] 12-04-2022 Procedure note Associated Ord er(s): EXERCISE-6 [...] Required or Qualified for Oxygen Supplementation: NO. [employer] 12-04-2022 Procedure note Associated Ord er(s): PFT [...] above report was entered in part using [employer] voice recognition medical dictation software. Although I [...] Oxygen Supplementation: NO. documented in this encounter [facility] 12-02-2022 Note [facility] 12-02-2022 Miscellaneous Notes Patient has been identified [...] Rylee Alvarado LPN documented in this encounter [facility] 12-02-2022 History of Present illness Narrative POPULATION HEALTH NAVIGATION OUTREACH Action/ 2nd call, full Patient Identified by Name and : NO Outreach Outcome/Action Unable to reach patient: Phone number not valid / voicemail full [email or web address] message sent Did you use a PCP [...] 2022 11:42 AM documented in this encounter [facility] 11-24-2022 Note [facility] 11-24-2022 History of Present illness Narrative CC: [...] Interstitial Lung Disease. Months ago, pulmonology at [place] [facility] felt her lung concerns were directly related to her autoimmune disorder. Wanted her plaquenil restarted at previous dose as this was decreased by previous licensed prosthetist as he felt this was not indicated. At last appointment her hydroxychlorquine was restarted at 200mg BID at research program coordinator recommendations, continued shortness of breath, and increase [...] TUNNEL BILATERRAL 08/08/2005 Coronary artery disease involving green[place] coronary artery Dr. 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 ([facility]) 12/06/2018 Other and unspecified hyperlipidemia Other forms of migraine Other psoriasis Postsurgical percutaneous transluminal coronary angioplasty status Rheumatoid arthritis(714.0) RLS (restless legs syndrome) 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 Author Type: Nurse Practitioner Type: Progress Notes Filed: 11/18/2022 1:15 PM Note Text: Heart, Vascular AND Thoracic [place] Department of Vascular Surgery VIRTUAL VIDEO VISIT [...] visit. Either the patient or their legal sales representative facility services has been informed of the risks and [...] TUNNEL BILATERRAL 08/08/2005 Coronary artery disease involving greenville coronary artery Dr. 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 ([facility]) 12/06/2018 Other and unspecified hyperlipidemia Other forms of migraine Other psoriasis Postsurgical percutaneous transluminal coronary angioplasty status Rheumatoid arthritis(714.0) RLS (restless legs syndrome) 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 [facility] 11-18-2022 History of Present illness Narrative Heart, Vascular & Thoracic [place] Department of Vascular Surgery VIRTUAL VIDEO VISIT [...] visit. Either the patient or their legal sales representative facility services has been informed of the risks and [...] TUNNEL BILATERRAL 08/08/2005 Coronary artery disease involving green[place] coronary artery Dr. 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 ([facility]) 12/06/2018 Other and unspecified hyperlipidemia Other forms of migraine Other psoriasis Postsurgical percutaneous transluminal coronary angioplasty status Rheumatoid arthritis(714.0) RLS (restless legs syndrome) Stroke (cerebrum) ([facility]) x3 Thoracic or lumbosacral neuritis [...] management and care of this patient. Manuela Thomas APRN.TIM November 18, 2022 11:18 AM documented in this encounter [facility] 11-17-2022 Note HNO ID: [id number] Author: Berkley Garces MA Service: ? Author Type: Aboriginal Community Council Member Type: Progress Notes Filed: 11/20/2022 12:20 PM Note Text: Opened in error [facility] 11-17-2022 History of Present illness Narrative POPULATION HEALTH NAVIGATION OUTREACH Action/FYI LVM MYCHART MESSAGE SENT ANNUAL MEDICARE WELLNESS Patient Identified [...] 2022 10:05 AM documented in this encounter [facility] 11-12-2022 Evaluation + Plan note Associated Problem(s): Restrictive lung disease May develop RLD - monitor imaging, PFT as indic - rec wt loss, stay active [facility] [employer] [facility] 11-12-2022 Miscellaneous Notes Associated Problem(s): Restrictive lung [...] results, clinical course. documented in this encounter [facility] 11-12-2022 Evaluation + Plan note Associated Problem(s): SOLE on CPAP Had sleep study and given CPAP yrs - unable to use, tolerate; also given O2 HS subseq. [facility] 11-12-2022 Evaluation + Plan note Associated [...] Influenza, pneumococcal, COVID19 vaccines recommended, updated T [facility] 11-12-2022 Evaluation + Plan note Associated [...] further evaluation, management pending results, clinical course. [facility] 11-12-2022 History of Present illness Narrative Do you smoke?- never Oxygen use _no patient is benefiting from oxygen use. Do you have a CPAP -yes (not wearing for the last 18 yrs) [employer]el[employer] company- unkown Most recent CT - [place] 2031) Most recent PFT- 09/09 [place] [facility] [place]) Has your breathing changed?- no [...] - Take as directed ALBUTEROL SULFATE NEBU [phone] Amara Troy 11-22-2010 [facility] ([id number]), Disp: , Rfl: amLODIPine 5 MG Tab [...] Gluc Sensor (FREESTYLE GERBER 14 DAY SENSOR) [facility] [place]p: , Rfl: Diclofenac Sodium 1 % Gel gel, diclofenac VOLTAREN 1 % GEL apply topically twice daily as needed DICLOFENAC SODIUM [id number] Leandra Whitney RN 01-31-2014 [facility] ([id number]), Disp: , Rfl: Diclofenac Sodium 1 % Gel gel, apply 3 grams to THE PAINFUL AREA topically once daily for 28 DAYS, Disp: , Rfl: docusate 100 MG capsule, Take 1 capsule by mouth 2 times daily., Disp: , Rfl: ergocalciferol 1.25 MG (01695 UT) capsule, Take by mouth., Disp: , [...] One tablet by mouth daily MULTIPLE VITAMIN [id number] Amara Troy 11-22-2010 [facility] ([id number]), Disp: , Rfl: nitroGLYCERIN 0.4 MG/SPRAY Solution, nitroglycerin NITROLINGUAL 0.4 MG/SPRAY SOLN 1 spray under tongue every 5min up to 3 X (400mcg per spray) NITROGLYCERIN [id number] Leon Seaman MD 11-30-2012 Debora Myers RN [facility] ([id number]), Disp: , Rfl: pramipexole 1 MG tablet, [...] (not wearing for the last 18 yrs) DME company- unkown Most recent CT - [place] 2031) Most recent PFT- 09/09 [place] [facility] [place]) Has your breathing changed?- no [...] encounter. Note: This dictation was generated using [employer] voice recognition software. Please excuse any typographical, grammatical or spelling errors that may have occurred using the system Ivan Rodriguez MD, MPH, [facility] Pulmonary/Critical Care Medicine [facility] 11/12/2022 documented in this encounter [facility] 11-10-2022 Note [facility] 10-27-2022 Note [facility] 10-27-2022 History of Present illness Narrative Radiology [...] PERIPHERAL IV DATA: Not applicable SIGNED BY: Ranjit Macko Kai October 27, 2022 11:04 AM documented in this encounter [facility] 10-22-2022 Miscellaneous Notes Please assist in scheduling. Mammo order placed- please inform patient. Vida Mercado PA-C Pt calling to have pcp place mammo order. She is due anytime after 10/23. documented in this encounter [facility] 10-15-2022 Miscellaneous Notes Noted Sultana Harvey APRN.TIM Patient calling to let provider know she is scheduled to see Dr. Grajeda, RHEUM on February 23. Carola Huang, RN documented in this encounter [facility] 10-01-2022 Note [facility] 10-01-2022 History of Present illness Narrative This Team Access Model visit is a phone encounter. It required patient-provider interaction for the medical decision making as documented below. Patient agrees to the visit: Yes Patient Location: [place] CC: Patient presents with: [employer] Concerns HPI [...] then instructed to discuss this with her licensed prosthetist. Per patient, Dr. Farrar, her licensed prosthetist feels she does not need the HCQ twice a day and can go elsewhere for treatment if she disagrees. Patient without any new concerns but would like a consult to see a new licensed prosthetist because her joint pain is notably worse [...] TUNNEL BILATERRAL 08/08/2005 Coronary artery disease involving green[place] coronary artery Dr. 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 ([facility]) 12/06/2018 Other and unspecified hyperlipidemia Other forms of migraine Other psoriasis Postsurgical percutaneous transluminal coronary angioplasty status Rheumatoid arthritis(714.0) RLS (restless legs syndrome) 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 Had pneumonia and is seeing a automotive glass specialist. Having pain in fingers. Severe pain [...] Weakness present. Gait: Gait abnormal. 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 Walker Psychiatric: Mood and Affect: Mood normal. Behavior: Behavior normal. Thought Content: Thought content normal. Judgment: Judgment normal. Neurological Exam Mental Status Alert. Oriented to person, place, and time. Cranial Nerves CN II: Vision test: glasses. CN III, IV, : Extraocular movements intact bilaterally. Pupils equal round and reactive to light bilaterally. Gait Abnormal gait. Decreased look out tower fire watcher strength both hands. Walker. 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 PAST MEDICAL HISTORY Diagnosis Date Abnormal mammogram, unspecified left breast BPPV (benign paroxysmal positional vertigo) 02/11/2015 BPV (benign positional vertigo) CAD (coronary artery disease) Carotid stenosis CARPAL TUNNEL BILATERRAL 08/08/2005 Coronary artery disease involving green[place] coronary artery Dr. 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 ([facility]) 12/06/2018 Other and unspecified hyperlipidemia Other forms of migraine Other psoriasis Postsurgical percutaneous transluminal coronary angioplasty status Rheumatoid arthritis(714.0) RLS (restless legs syndrome) 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 Rueda eye Dr etienne. Dr Rangel- foot doctor. Reliability Technologist- Dr payne End of Live Planning discussed [...] arthritis: some conflict on her dose, the licensed prosthetist and research program coordinator will have to discuss with Her joints [...] TUNNEL BILATERRAL 08/08/2005 Coronary artery disease involving green[place] coronary artery Dr. 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 ([facility]) 12/06/2018 Other and unspecified hyperlipidemia Other forms of migraine Other psoriasis Postsurgical percutaneous transluminal coronary angioplasty status Rheumatoid arthritis(714.0) RLS (restless legs syndrome) 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 Anxiety state - [...] ICD10: E10.40 She follows up with the casting operator to follow-up with them - INSULIN LISPRO [...] Darryn Anderson MD documented in this encounter [facility] 08-20-2022 Miscellaneous Notes Spoke with pt [...] Nahomi Fuller LPN documented in this encounter [facility] 08-08-2022 Miscellaneous Notes The following approved medication requests have been transmitted electronically. Requested Prescriptions Signed Prescriptions Disp Refills fluticasone-salmeterol (ADVAIR DISKUS) 100-50 mcg/dose inhaler 1 Each 3 Sig: Inhale 1 Puff as instructed twice daily. Rinse mouth out after use with water. Authorizing Provider: JEAN-PIERRE FLANNERY APRN.CNP documented in this encounter [facility] 08-08-2022 Miscellaneous Notes Patient reports she tried to schedule an appt with [facility], but was told they need referral and have not received her information. Faxed ov notes, test results, insur info, and referral to [facility] at fax # [phone], per pt request. documented in this encounter [facility] 08-07-2022 Miscellaneous Notes Summary: New ILD Consult Interstitial Lung Disease Referral Intake Mckayla Russo [id number] August 07, 2022 8:32 AM Schedulers: --Please schedule patient with (ILD physicians: Dr. Dave Rincon, Dr. Rajan Oh, Dr. Adelfo Munroe, Dr. Ada Donato, Dr. Lizandro Ayala, Dr. Ilene Casillas, Dr. Chavez [place], Dr. Bryan Perla, Dr. Doug Mckeon, Dr Roslyn Chicas, Dr Patricia Armenta or Dr. Tay Ponce, Dr Ange Marcelino) --Testing needed 1) [employer] 2) 6 MWT Consult information: Referred by: Dr Darryn Kapoor Office name/city: Diagnosis: Concern for ILD-with [...] Diana Strong RN documented in this encounter [facility] 08-06-2022 Note [facility] 08-06-2022 History of Present illness Narrative Radiology [...] TIME: 3:10 PM documented in this encounter [facility] 08-06-2022 Miscellaneous Notes Patient notified. Please remind patient that as she is taking steroids today for prior to her CT scan she needs to closely monitor her blood sugar. I would recommend calling her casting operator and letting her know you are getting a very large amount of steroids today in 3 different doses in case she has any recommendations for her insulin. Thank you Sultana Harvey APRN.TIM documented in this encounter [facility] 08-04-2022 Note [facility] 08-04-2022 Note [facility] 08-04-2022 History of Present illness Narrative CC: Patient [...] TUNNEL BILATERRAL 08/08/2005 Coronary artery disease involving green[place] coronary artery Dr. 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 ([facility]) 12/06/2018 Other and unspecified hyperlipidemia Other forms of migraine Other psoriasis Postsurgical percutaneous transluminal coronary angioplasty status Rheumatoid arthritis(714.0) RLS (restless legs syndrome) 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 Have [...] advise. Thank you. documented in this encounter [facility] 07-25-2022 Miscellaneous Notes Patient notified. Please let patient know I ordered a repeat chest xray in 4 weeks to re-evaluate that pneumonia has resolved. If symptoms are not improving, this should be completed earlier. Thank you Sultana Harvey APRN.SUGARCANE RESEARCH TECHNICIAN documented in this encounter [facility] 07-21-2022 Note [facility] 07-21-2022 History of Present illness Narrative CC: [...] and wheezing improved. Recent visit with new oracle bpm developer and planning on shaving the corns to [...] TUNNEL BILATERRAL 08/08/2005 Coronary artery disease involving green[place] coronary artery Dr. 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 ([facility]) 12/06/2018 Other and unspecified hyperlipidemia Other forms of migraine Other psoriasis Postsurgical percutaneous transluminal coronary angioplasty status Rheumatoid arthritis(714.0) RLS (restless legs syndrome) 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 [place] - ICD9: 700, ICD10: L84 As above. Prescription instructions reviewed with patient as applicable. Potential red flag symptoms discussed with the patient. Reviewed appropriate action plan to take if red flag symptoms occur. Patient agreeable to treatment plan. Sultana Harvey APRN.CNP documented in this encounter [facility] 07-17-2022 Miscellaneous Notes Kevin with [facility] calls to let provider know that Tussionex comes in a Stock Bottle of 115 mL and can't be broken down to dispense. Kevin requesting order be sent for 115 mL bottle. Pended for review. Mirtha Ramos RN documented in this encounter [facility] 07-17-2022 Note [facility] 07-17-2022 History of Present illness Narrative 1CC: Patient presents with: Recheck: Pneumonia follow up HPI Mckayla Russo is a 76 year old female who presents today for pneumonia follow up. Was seen in [facility] on 07/09/22 and diagnosed with bilateral pneumonia. Was prescribed augmentin and azithromycin both for 5 days and finished both about 2 days ago. [place] better for a few days but started [...] TUNNEL BILATERRAL 08/08/2005 Coronary artery disease involving [place] coronary artery Dr. 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 ([facility]) 12/06/2018 Other and unspecified hyperlipidemia Other forms of migraine Other psoriasis Postsurgical percutaneous transluminal coronary angioplasty status Rheumatoid arthritis(714.0) RLS (restless legs syndrome) 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 Prior Authorization has been completed online at [employer] for lansoprazole, will await response. COLLINS- [id number] Please keep encounter open until final decision has been received and documented from insurance company. Sarah Silva MA PRIOR AUTHORIZATION Medication for Prior Authorization: lansoprazole Insurance Company: Medicare: [id number] [place]/[employer] FEP PPO [id number] Nara Argueta RN documented in this encounter [facility] 07-09-2022 Note [facility] 07-09-2022 Note [facility] 07-09-2022 Miscellaneous Notes POPULATION HEALTH NAVIGATION OUTREACH Action/ 1st call-LVM and [employer]ial[employer] message for patient regarding PODIATRY consult. Patient [...] 2022 9:10 AM documented in this encounter [facility] 06-20-2022 Miscellaneous Notes Prescription sent. Thank you Sultana Harvey APRN.CNP Pt called and is notified of providers results and instructions. Pt voices understanding. She states she is still having to wear socks at night and she has the ring around her leg from where the socks were. Pt reports provider can send Lasix and Potassium to [facility] in [place], and that she wouldn't take it every day. She also wanted to let provider know that with having her pump on her BS is supposed to be around 120 and in her labs it was 124. Pt was also scheduled for her 3 month Medicare Wellness Visit. Rosalba Ren RN Lab work is all within acceptable [...] Sultana Harvey APRN.TIM Patient phoned to ask Manufacturing Engineer Assembly, does she need to schedule a Medicare Wellness appt since her last appt focused on other things? Please advise patient. documented in this encounter [facility] 06-16-2022 Miscellaneous Notes Pt called and requested her referral and supporting information be faxed to Dr. Zhao, Podiatry. FAX: [phone] Done. Mia Ni LPN documented in this encounter [facility] 06-09-2022 Note [facility] 06-09-2022 History of Present illness Narrative CC: [...] podiatry. Would like to see a different oracle bpm developer for second opinion. DIABETES MELLITUS: Ms. Russo [...] TUNNEL BILATERRAL 08/08/2005 Coronary artery disease involving greenville coronary artery Dr. Pederson follows regularly; S/P PTCA and stenting at [facility], 2001 Coronary atherosclerosis of unspecified type of vessel, greenville or graft Disorder of bone and cartilage, [...] weight loss. - LIPID PANEL BASIC 8. [place] - ICD9: 700, ICD10: L84 - CONSULT TO PODIATRY - faxed to Dr. Ewing office as requested. Prescription instructions reviewed with patient as applicable. Potential red flag symptoms discussed with the patient. Reviewed appropriate action plan to take if red flag symptoms occur. Patient agreeable to treatment plan. Sultana Harvey APRN.CNP documented in this encounter [facility] 06-04-2022 Miscellaneous Notes Patient returned call to schedule annual wellness exam. Carola Huang RN documented in this encounter [facility] 06-03-2022 Note [facility] 06-03-2022 History of Present illness Narrative Images [...] (H) 4.3 - 5.6 % Final Comment: [place] [employer] guidelines indicate that patients with [...] TUNNEL BILATERRAL 08/08/2005 Coronary artery disease involving greenville coronary artery Dr. 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 ([facility]) 12/06/2018 Other and unspecified hyperlipidemia Other forms of migraine Other psoriasis Postsurgical percutaneous transluminal coronary angioplasty status Rheumatoid arthritis(714.0) RLS (restless legs syndrome) 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 documented in this encounter [facility] 06-03-2022 Note [facility] 06-02-2022 Note [facility] 05-29-2022 Note [facility] 05-23-2022 Miscellaneous Notes Called pt and pending [...] pharmacy. No need to notify patient. Teagan [employer] documented in this encounter [facility] 05-23-2022 Miscellaneous Notes Called patient and [...] Tameka Michel RN documented in this encounter [facility] 05-13-2022 Miscellaneous Notes Patient has been [...] to pharmacy. No need to notify patient. Teaganhuber [employer] documented in this encounter [facility] 04-18-2022 Miscellaneous Notes PDMP website checked and validated. All prescriptions have been APPROPRIATELY filled. No suspicious activity was identified. 04/18/2022 by Sultana Harvey APRN.TIM Patient has been identified by name and date of : Yes, Provider DARRYN ANDERSON Date 04/18/22 Time 1033 Patient phones for [...] you. Nara Sandoval documented in this encounter [facility] 04-03-2022 Instructions Lauren Rangel - 04/03/2022 10:03 AM EST Diabetes Foot [...] (or decreased sensation in your feet) a oracle bpm developer should always cut your toenails. Be Careful [...] Go to your health care provider or oracle bpm developer to treat these conditions. documented in this encounter [facility] 04-03-2022 History of Present illness Narrative [...] (H) 4.3 - 5.6 % Final Comment: [place] [employer] guidelines indicate that patients with [...] TUNNEL BILATERRAL 08/08/2005 Coronary artery disease involving green[place] coronary artery Dr. 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 ([facility]) 12/06/2018 Other and unspecified hyperlipidemia Other forms of migraine Other psoriasis Postsurgical percutaneous transluminal coronary angioplasty status Rheumatoid arthritis(714.0) RLS (restless legs syndrome) 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 Verbalized [...] past 3 days. Thank you Sultana Harvey APRN.SUGARCANE RESEARCH TECHNICIAN Patient calls and states that she still [...] repeat the urine. Thank you Sultana Harvey APRN.SUGARCANE RESEARCH TECHNICIAN documented in this encounter [facility] 01-31-2022 Miscellaneous Notes [employer] message was sent to patient You have a uti Berkley, Waiting for the culture to be back Regards, Darryn Anderson MD documented in this encounter [facility] 01-30-2022 Miscellaneous Notes Spoke with the [...] strips. Patient asking for call back at [phone] to verify. 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 A nurse will call in approximately 2-4 hours during business hours. If this is an emergency, please contact 911. Vida Connor Pss documented in this encounter [facility] 12-30-2021 History of Present illness Narrative [...] TUNNEL BILATERRAL 08/08/2005 Coronary artery disease involving green[place] coronary artery Dr. 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 Lauren Rangel DPM Podiatry [address] [facility] [address] Dept: [phone] Dept AMB ROOMING INTAKE FLOWSHEET DATA Risk [...] X-Ray done today. documented in this encounter [facility] 12-27-2021 Miscellaneous Notes Patient stated that [...] Rylee Alvarado LPN documented in this encounter [facility] 12-24-2021 Miscellaneous Notes Patient called in [...] Jacqueline Rabago LPN documented in this encounter [facility] 11-21-2021 History of Present illness Narrative This Team Access Model visit is a virtual encounter. It required patient-provider interaction for the medical decision making as documented below. Patient agrees to the visit: Yes Patient Location: [place] CC: Patient presents with: Hypertension F/U Diabetes [...] TUNNEL BILATERRAL 08/08/2005 Coronary artery disease involving green[place] coronary artery Dr. 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 ([facility]) 12/06/2018 Other and unspecified hyperlipidemia Other forms of migraine Other psoriasis Postsurgical percutaneous transluminal coronary angioplasty status Rheumatoid arthritis(714.0) RLS (restless legs syndrome) 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 Band aide applied. If you have any issues such as redness or drainage or warmth, call the office. documented in this encounter [facility] 11-13-2021 History of Present illness Narrative [...] (H) 4.3 - 5.6 % Final Comment: [place] Diabetes [employer] guidelines indicate that patients with [...] TUNNEL BILATERRAL 08/08/2005 Coronary artery disease involving green[place] coronary artery Dr. 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 Manuela Thomas APRN.TIM documented in this encounter [facility] 11-05-2021 Instructions Manuela Thomas APRN.TIM - 11/05/2021 9:26 AM EDT Information on [...] avoid another stroke. documented in this encounter [facility] 10-24-2021 History of Present illness Narrative [...] TUNNEL BILATERRAL 08/08/2005 Coronary artery disease involving green[place] coronary artery Dr. 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 ([facility]) 12/06/2018 Other and unspecified hyperlipidemia Other forms of migraine Other psoriasis Postsurgical percutaneous transluminal coronary angioplasty status Rheumatoid arthritis(714.0) RLS (restless legs syndrome) 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 Russo, We are pleased to [...] report will be kept on file at [facility] as part of your permanent medical record and are available for your continuing care. Thank you for allowing us to help in meeting your health care needs. Sincerely, Dr. Peck Interpreting Radiologist [facility] (Normal over 40) documented in this encounter [facility] 10-22-2021 Miscellaneous Notes Pts reports she [...] Rosalba Ren RN documented in this encounter [facility] 10-22-2021 History of Present illness Narrative [...] 2021 10:50 AM documented in this encounter [facility] 10-15-2021 Miscellaneous Notes Patient has been [...] Rylee Alvarado LPN documented in this encounter [facility] 10-15-2021 Miscellaneous Notes New order placed as requested. Manuela Thomas APRN.TIM Manuela from [facility] called stating they need Mckayla's order for her Carotid US changed to vascular lab instead of radiology. She can be reached @ [phone]. Maranda Teixeira LPN documented in this encounter [facility] 10-14-2021 Miscellaneous Notes LMOM to schedule JM on LM day 6 Month F/UP for Carotid Stenosis with ULTRA DUP CAROTID ARTERY BILAT 10/17/2021 *LM* documented in this encounter [facility] 10-12-2021 Miscellaneous Notes Called patient left a voicemail to call back and schedule a mammogram. Thanks Getachew Lilly PSS Order has been placed. Thank you Sultana Harvey APRN.CNP Pt needs orders for routine Screening Mammogram [...] system. Please advise. documented in this encounter [facility] 09-27-2021 Miscellaneous Notes Prescription sent as requested. Thank you Sultana Harvey APRN.CNP Patient calling asking to have Linzess rx sent to [facility] mail away pharmacy cost would be cheaper [...] Paula Aranda LPN documented in this encounter [facility] 09-26-2021 Miscellaneous Notes Electronic PA completed for linzess. Authorized from August 27, 2021 to September 26, 2022 Information received electronically from payer documented in this encounter [facility] 09-26-2021 History of Present illness Narrative [...] TUNNEL BILATERRAL 08/08/2005 Coronary artery disease involving green[place] coronary artery Dr. 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 ([facility]) 12/06/2018 Other and unspecified hyperlipidemia Other forms of migraine Other psoriasis Postsurgical percutaneous transluminal coronary angioplasty status Rheumatoid arthritis(714.0) RLS (restless legs syndrome) 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 Be Careful [...] Go to your health care provider or oracle bpm developer to treat these conditions. documented in this encounter [facility] 08-15-2021 Miscellaneous Notes Pt does want this prescription sent to [facility]. In Apr rx was sent to [facility] Message left for pt to return call to verify pharmacy. [place] pickett GABY 06/10/21 [facility] Patient electronically sent a request for the [...] be filled today. Patient would like to black pickler the medication late afternoon. documented in this encounter [facility] 08-05-2021 Miscellaneous Notes PDMP website checked and validated. All prescriptions have been APPROPRIATELY filled. No suspicious activity was identified. 08/05/2021 by Sultana Harvey APRN.CNP Patient states she accidentally threw away her medication. Asking for refill. Please advise documented in this encounter [facility] 06-14-2021 Miscellaneous Notes Spoke with Vida GE concerning the form needing signed by Dr Rueda due to patient being discharged from PT. Delmi Fay LPN Forms forwarded to Dr. Rueda to address. Delmi Fay LPN Received fax in office. Will forward to Dr Rueda to address. Delmi Fay LPN Glenny from [facility] called and reports they have been trying to fax the POC for HH to have provider sign. Gave her fax # [phone], which is not where they had sent it before. Can also call Glenny and leave voicemail on secure line at [phone]. documented in this encounter [facility] 04-24-2021 Miscellaneous Notes Pt called in and reports that she has called [facility] to start sessions, but they keep telling her that they don't have the information. Pt believes she is doing home PT. The orders have been faxed over several times. Asked Pt what else [facility] needed and Pt said they wouldn't tell her just that they needed more information and that the provider knows what it is. 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 Rx given for PT/OT - went [...] Uric acid was normal at 3.8 18. STFEFANY level was elevated at 73 and is now normal at 46 19. CXR: shows no hilar adenopathy. 20. Cardiology F/U per Dr. Seaman 22. 90 day supply on medications 23. Neuro f/U per Dr. Jones 24. Patient declines referral to hand surgery 25. Patient declines cortisone shot 26. If hand problems continue rec: ortho eval documented in this encounter [facility] documented as of this encounter (statuses as of 08/15/2021) [facility] History of Past illness Narrative* Problem [...] 06/25/2015 Overview: Dr. Schmitz, [facility] [place] Tenosynovitis of foot and ankle 06/29/2008 [...] Unspecified 01/13/2005 06/25/2015 Coronary artery disease involving green[place] coronar y artery 09/29/2019 Overview: Dr. Pederson follows regularly; S/P PTCA and stenting at [facility], 2000 Last Assessment & Plan: Currently she [...] of this encounter (statuses as of 09/20/2021) [facility] History of Past illness Narrative* Problem [...] 06/25/2015 Overview: Dr. Schmitz, [facility], [facility] [place] Tenosynovitis of foot and ankle 06/29/2008 [...] Unspecified 01/13/2005 06/25/2015 Coronary artery disease involving green[place] coronar y artery 09/29/2019 Overview: Dr. Pederson follows regularly; S/P PTCA and stenting at [facility], 2000 Last Assessment & Plan: Currently she [...] of this encounter (statuses as of 09/23/2021) [facility] History of Past illness Narrative* Problem [...] 06/25/2015 Overview: Dr. Schmitz, [facility], [facility] [place] Tenosynovitis of foot and ankle 06/29/2008 04/30/2009 Acute bronchitis 05/18/2008 04/30/2009 Anemia, unspecified 12/04/2006 09/29/2019 Cellulitis and abscess of foot, except toes 05/10/200604/30/2009 Onychia and paronychia of toe 08/11/2006 Pain [...] Unspecified 01/13/2005 06/25/2015 Coronary artery disease involving [place] coronar y artery 09/29/2019 Overview: Dr. Pederson follows regularly; S/P PTCA and stenting at [facility], 2000 Last Assessment & Plan: Currently she [...] of this encounter (statuses as of 09/26/2021) [facility] History of Past illness Narrative* Problem [...] 06/25/2015 Overview: Dr. Schmitz, [facility] Tenosynovitis of foot and ankle 06/29/2008 04/30/2009 [...] Unspecified 01/13/2005 06/25/2015 Coronary artery disease involving [place] coronar y artery 09/29/2019 Overview: Dr. Pederson follows regularly; S/P PTCA and stenting at [facility], 2001 Last Assessment & Plan: Currently she [...] of this encounter (statuses as of 09/26/2021) [facility] History of Past illness Narrative* Problem [...] 08/12/2015 09/29/2019 BPPV (benign paroxysmal positional vertigo) 10 08/2014 09/29/2019 Vertigo 02/02/2013 06/25/2015 Thoracic or lumbosacral neuritis or radiculitis, unspecified 03/01/2012 09/29/2019 Abnormality of gait 03/01/2012 06/25/2015 Pain in joint, lower leg 01/21/2010 016 Routine general medical exam ination at a health care facility 04/30/2009 06/25/2015 Overview: 04/30/2009, establish from Dr. Givens 06/25/2010, yearly check-up (60 minutes) Routine gynecological examination 04/30/2009 06/25/2015 Overview: Dr. Schmitz, [facility] [place] Tenosynovitis of foot and ankle 06/29/2008 [...] Unspecified 01/13/2005 06/25/2015 Coronary artery disease involving [place] coronar [place] artery 09/29/2019 Overview: Dr. Pederson follows regularly; S/P PTCA and stenting at [facility], 2001 Last Assessment & Plan: Currently she [...] of this encounter (statuses as of 09/27/2021) [facility] History of Past illness Narrative* Problem [...] 06/25/2015 Overview: Dr. Schmitz, [facility] [place] Tenosynovitis of foot and ankle 06/29/2008 04/30/2009 [...] Unspecified 01/13/2005 06/25/2015 Coronary artery disease involving [place] coronar y artery 09/29/2019 Overview: Dr. Pederson follows regularly; S/P PTCA and stenting at [facility], 2001 Last Assessment & Plan: Currently she [...] of this encounter (statuses as of 10/14/2021) [facility] History of Past illness Narrative* Problem [...] 06/25/2015 Overview: Dr. Schmitz, [facility], [facility] [place] Tenosynovitis of foot and ankle 06/29/2008 04/30/2009 [...] Unspecified 01/13/2005 06/25/2015 Coronary artery disease involving [place] coronar [place] artery 09/29/2019 Overview: Dr. Pederson follows regularly; S/P PTCA and stenting at [facility], 2000 Last Assessment & Plan: Currently she [...] of this encounter (statuses as of 10/15/2021) [facility] History of Past illness Narrative* Problem [...] 06/25/2015 Overview: Dr. Schmitz, [facility] [place] Tenosynovitis of foot and ankle 06/29/2008 04/30/2009 [...] Unspecified 01/13/2005 06/25/2015 Coronary artery disease involving [place] coronar [place] artery 09/29/2019 Overview: Dr. Pederson follows regularly; S/P PTCA and stenting at [facility], 2000 Last Assessment & Plan: Currently she [...] of this encounter (statuses as of 10/15/2021) [facility] History of Past illness Narrative* Problem [...] 06/25/2015 Overview: Dr. Schmitz, [facility] [place] Tenosynovitis of foot and ankle 06/29/2008 [...] Unspecified 01/13/2005 06/25/2015 Coronary artery disease involving [place] coronar [place] artery 09/29/2019 Overview: Dr. Pederson follows regularly; S/P PTCA and stenting at [facility], 2000 Last Assessment & Plan: Currently she [...] of this encounter (statuses as of 10/23/2021) [facility] History of Past illness Narrative* Problem [...] 06/25/2015 Overview: Dr. Schmitz, [facility] [place] Tenosynovitis of foot and ankle 06/29/2008 04/30/2009 [...] Unspecified 01/13/2005 06/25/2015 Coronary artery disease involving [place] coronar [place] artery 09/29/2019 Overview: Dr. Pederson follows regularly; S/P PTCA and stenting at [facility], 2000 Last Assessment & Plan: Currently she [...] of this encounter (statuses as of 10/23/2021) [facility] History of Past illness Narrative* Problem [...] 06/25/2015 Overview: Dr. Schmitz, [facility] [place] Tenosynovitis of foot and ankle 06/29/2008 [...] Unspecified 01/13/2005 06/25/2015 Coronary artery disease involving [place] coronar [place] artery 09/29/2019 Overview: Dr. Pederson follows regularly; S/P PTCA and stenting at [facility], 2000 Last Assessment & Plan: Currently she [...] of this encounter (statuses as of 10/24/2021) [facility] History of Past illness Narrative* Problem [...] 06/25/2015 Overview: Dr. Schmitz, [facility] Tenosynovitis of foot and ankle 06/29/2008 04/30/2009 [...] Unspecified 01/13/2005 06/25/2015 Coronary artery disease involving [place] coronar y artery 09/29/2019 Overview: Dr. Pederson follows regularly; S/P PTCA and stenting at [facility], 2000 Last Assessment & Plan: Currently she [...] of this encounter (statuses as of 10/24/2021) [facility] History of Past illness Narrative* Problem [...] 06/25/2015 Overview: Dr. Schmitz, [facility] [place] Tenosynovitis of foot and ankle 06/29/2008 [...] Unspecified 01/13/2005 06/25/2015 Coronary artery disease involving [place] coronar [place] artery 09/29/2019 Overview: Dr. Pederson follows regularly; S/P PTCA and stenting at [facility], 2000 Last Assessment & Plan: Currently she [...] of this encounter (statuses as of 11/05/2021) [facility] History of Past illness Narrative* Problem [...] 06/25/2015 Overview: Dr. Schmitz, [facility] [place] Tenosynovitis of foot and ankle 06/29/2008 [...] Unspecified 01/13/2005 06/25/2015 Coronary artery disease involving [place] coronar y artery 09/29/2019 Overview: Dr. Pederson follows regularly; S/P PTCA and stenting at [facility], 2000 Last Assessment & Plan: Currently she [...] of this encounter (statuses as of 11/13/2021) [facility] History of Past illness Narrative* Problem [...] 06/25/2015 Overview: Dr. Schmitz, [facility] [place] Tenosynovitis of foot and ankle 06/29/2008 04/30/2009 [...] Unspecified 01/13/2005 06/25/2015 Coronary artery disease involving [place] coronar [place] artery 09/29/2019 Overview: Dr. Pederson follows regularly; S/P PTCA and stenting at [facility], 2000 Last Assessment & Plan: Currently she [...] of this encounter (statuses as of 11/20/2021) [facility] History of Past illness Narrative* Problem [...] 06/25/2015 Overview: Dr. Schmitz, [facility] [place] Tenosynovitis of foot and ankle 06/29/2008 04/30/2009 [...] Unspecified 01/13/2005 06/25/2015 Coronary artery disease involving [place] coronar [place] artery 09/29/2019 Overview: Dr. Pederson follows regularly; S/P PTCA and stenting at [facility], 2000 Last Assessment & Plan: Currently she [...] of this encounter (statuses as of 11/21/2021) [facility] History of Past illness Narrative* Problem [...] 06/25/2015 Overview: Dr. Schmitz, [facility] [place] Tenosynovitis of foot and ankle 06/29/2008 04/30/2009 [...] Unspecified 01/13/2005 06/25/2015 Coronary artery disease involving [place] coronar y artery 09/29/2019 Overview: Dr. Pederson follows regularly; S/P PTCA and stenting at [facility], 2000 Last Assessment & Plan: Currently she [...] of this encounter (statuses as of 12/27/2021) [facility] History of Past illness Narrative* Problem [...] 06/25/2015 Overview: Dr. Schmitz, [facility] [place] Tenosynovitis of foot and ankle 06/29/2008 [...] Unspecified 01/13/2005 06/25/2015 Coronary artery disease involving [place] coronar y artery 09/29/2019 Overview: Dr. Pederson follows regularly; S/P PTCA and stenting at [facility], 2000 Last Assessment & Plan: Currently she [...] of this encounter (statuses as of 12/31/2021) [facility] History of Past illness Narrative* Problem [...] 06/25/2015 Overview: Dr. Schmitz, [facility], [facility] [place] Tenosynovitis of foot and ankle 06/29/2008 04/30/2009 [...] Unspecified 01/13/2005 06/25/2015 Coronary artery disease involving [place] coronar y artery 09/29/2019 Overview: Dr. Nicolozakes follows regularly; S/P PTCA and stenting at [facility], 2000 Last Assessment & Plan: Currently she [...] of this encounter (statuses as of 12/31/2021) [facility] History of Past illness Narrative* Problem [...] 06/25/2015 Overview: Dr. Schmitz, [facility], [facility] [place] Tenosynovitis of foot and ankle 06/29/2008 [...] Unspecified 01/13/2005 06/25/2015 Coronary artery disease involving [place] coronar [place] artery 09/29/2019 Overview: Dr. Pederson follows regularly; S/P PTCA and stenting at [facility], 2000 Last Assessment & Plan: Currently she [...] of this encounter (statuses as of 01/22/2022) [facility] History of Past illness Narrative* Problem Noted Date Resolved Date SHERLYN (acute kidney injury) 09/29/20192019 Last Assessment & Plan: Assessment: DKA induced with dehydration PLAN: Volume resuscitated, IVF now KVO Tolerating PO diet Monitor BUN/Cr for further changes DKA (diabetic ketoacidoses) 09/28/2019 07/04/2020 Last Assessment & Plan: 2/ Insulin Pump [...] 06/25/2015 Overview: Dr. Schmitz, [facility], [facility] [place] Tenosynovitis of foot and ankle 06/29/2008 04/30/2009 Acute bronchitis 05/18/2008 04/30/2009 Anemia, unspecified 12/04/2006 09/29/2019 Cellulitis and abscess of foot, except toes 05/10/200604/30/2009 Onychia and paronychia of toe 08/11/2006 Pain [...] Unspecified 01/13/2005 06/25/2015 Coronary artery disease involving [place] coronar [place] artery 09/29/2019 Overview: Dr. Pederson follows regularly; S/P PTCA and stenting at [facility], 2000 Last Assessment & Plan: Currently she [...] of this encounter (statuses as of 01/23/2022) [facility] History of Past illness Narrative* Problem [...] 06/25/2015 Overview: Dr. Schmitz, [facility] [place] Tenosynovitis of foot and ankle 06/29/2008 [...] Unspecified 01/13/2005 06/25/2015 Coronary artery disease involving [place] coronar [place] artery 09/29/2019 Overview: Dr. Pederson follows regularly; S/P PTCA and stenting at [facility], 2001 Last Assessment & Plan: Currently she [...] of this encounter (statuses as of 01/30/2022) [facility] History of Past illness Narrative* Problem [...] 06/25/2015 Overview: Dr. Schmitz, [facility] [place] Tenosynovitis of foot and ankle 06/29/2008 04/30/2009 [...] Unspecified 01/13/2005 06/25/2015 Coronary artery disease involving [place] coronar y artery 09/29/2019 Overview: Dr. Pederson follows regularly; S/P PTCA and stenting at [facility], 2000 Last Assessment & Plan: Currently she [...] of this encounter (statuses as of 01/31/2022) [facility] History of Past illness Narrative* Problem [...] examination 04/30/2009 06/25/2015 Overview: Dr. Schmitz, [facility], [facility] [place] Tenosynovitis of foot and ankle 06/29/2008 [...] Unspecified 01/13/2005 06/25/2015 Coronary artery disease involving [place] coronar y artery 09/29/2019 Overview: Dr. Pederson follows regularly; S/P PTCA and stenting at [facility], 2000 Last Assessment & Plan: Currently she [...] of this encounter (statuses as of 02/04/2022) [facility] History of Past illness Narrative* Problem [...] 06/25/2015 Overview: Dr. Schmitz, [facility], [facility] [place] Tenosynovitis of foot and ankle 06/29/2008 04/30/2009 [...] Unspecified 01/13/2005 06/25/2015 Coronary artery disease involving [place] coronar [place] artery 09/29/2019 Overview: Dr. Pederson follows regularly; S/P PTCA and stenting at [facility], 2000 Last Assessment & Plan: Currently she [...] of this encounter (statuses as of 03/18/2022) [facility] History of Past illness Narrative* Problem [...] 06/25/2015 Overview: Dr. Schmitz, [facility], [facility] [place] Tenosynovitis of foot and ankle 06/29/2008 [...] Unspecified 01/13/2005 06/25/2015 Coronary artery disease involving [place] coronar [place] artery 09/29/2019 Overview: Dr. Pederson follows regularly; S/P PTCA and stenting at [facility], 2000 Last Assessment & Plan: Currently she [...] of this encounter (statuses as of 04/03/2022) [facility] History of Past illness Narrative* Problem [...] 06/25/2015 Overview: Dr. Schmitz, [facility], [facility] [place] Tenosynovitis of foot and ankle 06/29/2008 04/30/2009 [...] Unspecified 01/13/2005 06/25/2015 Coronary artery disease involving [place] coronar y artery 09/29/2019 Overview: Dr. Pederson follows regularly; S/P PTCA and stenting at [facility], 2000 Last Assessment & Plan: Currently she [...] of this encounter (statuses as of 04/09/2022) [facility] History of Past illness Narrative* Problem [...] 06/25/2015 Overview: Dr. Schmitz, [facility], [facility] [place] Tenosynovitis of foot and ankle 06/29/2008 04/30/2009 Acute bronchitis 05/18/2008 04/30/2009 Anemia, unspecified 12/04/2006 09/29/2019 Cellulitis and abscess of foot, except toes 05/10/200604/30/2009 Onychia and paronychia of toe 08/11/2006 Pain [...] Unspecified 01/13/2005 06/25/2015 Coronary artery disease involving [place] coronar y artery 09/29/2019 Overview: Dr. Pederson follows regularly; S/P PTCA and stenting at [facility], 2000 Last Assessment & Plan: Currently she [...] of this encounter (statuses as of 04/13/2022) [facility] of Past illness Narrative* Problem [...] 06/25/2015 Overview: Dr. Schmitz, [facility] Tenosynovitis of foot and ankle 06/29/2008 04/30/2009 [...] Unspecified 01/13/2005 06/25/2015 Coronary artery disease involving [place] coronar y artery 09/29/2019 Overview: Dr. Pederson follows regularly; S/P PTCA and stenting at [facility], 2001 Last Assessment & Plan: Currently she [...] of this encounter (statuses as of 04/13/2022) [facility] History of Past illness Narrative* Problem [...] 06/25/2015 Overview: Dr. Schmitz, [facility] [place] Tenosynovitis of foot and ankle 06/29/2008 [...] Unspecified 01/13/2005 06/25/2015 Coronary artery disease involving [place] coronar [place] artery 09/29/2019 Overview: Dr. Pederson follows regularly; S/P PTCA and stenting at [facility], 2001 Last Assessment & Plan: Currently she [...] of this encounter (statuses as of 04/23/2022) [facility] of Past illness Narrative* Problem [...] 06/25/2015 Overview: Dr. Schmitz, [facility] [place] Tenosynovitis of foot and ankle 06/29/2008 04/30/2009 [...] Unspecified 01/13/2005 06/25/2015 Coronary artery disease involving [place] coronar y artery 09/29/2019 Overview: Dr. Pederson follows regularly; S/P PTCA and stenting at [facility], 2001 Last Assessment & Plan: Currently she [...] of this encounter (statuses as of 05/14/2022) [facility] of Past illness Narrative* Problem [...] 06/25/2015 Overview: Dr. Schmitz, [facility], [facility] [place] Tenosynovitis of foot and ankle 06/29/2008 04/30/2009 [...] Unspecified 01/13/2005 06/25/2015 Coronary artery disease involving [place] coronar y artery 09/29/2019 Overview: Dr. Pederson follows regularly; S/P PTCA and stenting at [facility], 2000 Last Assessment & Plan: Currently she [...] of this encounter (statuses as of 05/23/2022) [facility] of Past illness Narrative* Problem [...] 06/25/2015 Overview: Dr. Schmitz, [facility], [facility] [place] Tenosynovitis of foot and ankle 06/29/2008 04/30/2009 [...] Unspecified 01/13/2005 06/25/2015 Coronary artery disease involving [place] coronar y artery 09/29/2019 Overview: Dr. Pederson follows regularly; S/P PTCA and stenting at [facility], 2000 Last Assessment & Plan: Currently she [...] of this encounter (statuses as of 05/24/2022) [facility] Past illness Narrative* Problem [...] 06/25/2015 Overview: Dr. Schmitz, [facility] [place] Tenosynovitis of foot and ankle 06/29/2008 [...] Unspecified 01/13/2005 06/25/2015 Coronary artery disease involving [place] coronar y artery 09/29/2019 Overview: Dr. ePderson follows regularly; S/P PTCA and stenting at [facility], 2000 Last Assessment & Plan: Currently she [...] of this encounter (statuses as of 05/24/2022) [facility] of Past illness Narrative* Problem [...] 06/25/2015 Overview: Dr. Schmitz, [facility], [facility] [place] Tenosynovitis of foot and ankle 06/29/2008 [...] Unspecified 01/13/2005 06/25/2015 Coronary artery disease involving [place] coronar y artery 09/29/2019 Overview: Dr. Pederson follows regularly; S/P PTCA and stenting at [facility], 2000 Last Assessment & Plan: Currently she [...] of this encounter (statuses as of 05/29/2022) [facility] Past illness Narrative* Problem [...] 06/25/2015 Overview: Dr. Schmitz, [facility], [facility] [place] Tenosynovitis of foot and ankle 06/29/2008 [...] Unspecified 01/13/2005 06/25/2015 Coronary artery disease involving [place] coronar y artery 09/29/2019 Overview: Dr. Pederson follows regularly; S/P PTCA and stenting at [facility], 2000 Last Assessment & Plan: Currently she [...] of this encounter (statuses as of 06/04/2022) [facility] Narrative* Problem [...] 06/25/2015 Overview: Dr. Schmitz, [facility] Tenosynovitis of foot and ankle 06/29/2008 04/30/2009 [...] Unspecified 01/13/2005 06/25/2015 Coronary artery disease involving [place] coronar y artery 09/29/2019 Overview: Dr. Pederson follows regularly; S/P PTCA and stenting at [facility], 2000 Last Assessment & Plan: Currently she [...] of this encounter (statuses as of 06/04/2022) [facility] illness Narrative* Problem [...] 06/25/2015 Overview: Dr. Schmitz, [facility], [facility] [place] Tenosynovitis of foot and ankle 06/29/2008 04/30/2009 [...] Unspecified 01/13/2005 06/25/2015 Coronary artery disease involving [place] coronar y artery 09/29/2019 Overview: Dr. Pederson follows regularly; S/P PTCA and stenting at [facility], 2000 Last Assessment & Plan: Currently she [...] of this encounter (statuses as of 06/04/2022) [facility] Narrative* Problem [...] 04/30/2009 06/25/2015 Overview: 04/30/2009, establish from Dr. iGvens 06/25/2010, yearly check-up (60 minutes) Routine gynecological examination 04/30/2009 06/25/2015 Overview: Dr. Schmitz, [facility] [place] Tenosynovitis of foot and ankle 06/29/2008 [...] Unspecified 01/13/2005 06/25/2015 Coronary artery disease involving [place] coronar y artery 09/29/2019 Overview: Dr. Pederson follows regularly; S/P PTCA and stenting at [facility], 2000 Last Assessment & Plan: Currently she [...] of this encounter (statuses as of 06/11/2022) [facility] Past illness Narrative* Problem [...] 06/25/2015 Overview: Dr. Schmitz, [facility] [place] Tenosynovitis of foot and ankle 06/29/2008 04/30/2009 [...] Unspecified 01/13/2005 06/25/2015 Coronary artery disease involving [place] coronar y artery 09/29/2019 Overview: Dr. Pederson follows regularly; S/P PTCA and stenting at [facility], 2000 Last Assessment & Plan: Currently she [...] of this encounter (statuses as of 06/17/2022) [facility] Past illness Narrative* Problem [...] 06/25/2015 Overview: Dr. Schmitz, [facility] [place] Tenosynovitis of foot and ankle 06/29/2008 04/30/2009 [...] Unspecified 01/13/2005 06/25/2015 Coronary artery disease involving [place] coronar y artery 09/29/2019 Overview: Dr. Pederson follows regularly; S/P PTCA and stenting at [facility], 2000 Last Assessment & Plan: Currently she [...] of this encounter (statuses as of 06/20/2022) [facility] Past illness Narrative* Problem [...] 06/25/2015 Overview: Dr. Schmitz, [facility] [place] Tenosynovitis of foot and ankle 06/29/2008 [...] Unspecified 01/13/2005 06/25/2015 Coronary artery disease involving [place] coronar y artery 09/29/2019 Overview: Dr. Pederson follows regularly; S/P PTCA and stenting at [facility], 2000 Last Assessment & Plan: Currently she [...] of this encounter (statuses as of 06/26/2022) [facility] illness Narrative* Problem [...] 06/25/2015 Overview: Dr. Schmitz, [facility] [place] Tenosynovitis of foot and ankle 06/29/2008 04/30/2009 [...] Unspecified 01/13/2005 06/25/2015 Coronary artery disease involving [place] coronar y artery 09/29/2019 Overview: Dr. Pederson follows regularly; S/P PTCA and stenting at [facility], 2000 Last Assessment & Plan: Currently she [...] of this encounter (statuses as of 07/09/2022) [facility] Past illness Narrative* Problem [...] 06/25/2015 Overview: Dr. Schmitz, [facility] [place] Tenosynovitis of foot and ankle 06/29/2008 [...] Unspecified 01/13/2005 06/25/2015 Coronary artery disease involving [place] coronar y artery 09/29/2019 Overview: Dr. Nicolozakes follows regularly; S/P PTCA and stenting at [facility], 2000 Last Assessment & Plan: Currently she [...] of this encounter (statuses as of 07/11/2022) [facility] illness Narrative* Problem [...] 06/25/2015 Overview: Dr. Schmitz, [facility] [place] Tenosynovitis of foot and ankle 06/29/2008 [...] Unspecified 01/13/2005 06/25/2015 Coronary artery disease involving [place] coronar y artery 09/29/2019 Overview: Dr. Pederson follows regularly; S/P PTCA and stenting at [facility], 2000 Last Assessment & Plan: Currently she [...] of this encounter (statuses as of 07/17/2022) [facility] History of Past illness Narrative* Problem [...] 06/25/2015 Overview: Dr. Schmitz, [facility] [place] Tenosynovitis of foot and ankle 06/29/2008 04/30/2009 Acute bronchitis 05/18/2008 04/30/2009 Anemia, unspecified 12/04/2006 09/29/2019 Cellulitis and abscess of foot, except toes 05/10/200604/30/2009 Onychia and paronychia of toe 08/11/2006 Pain [...] Unspecified 01/13/2005 06/25/2015 Coronary artery disease involving [place] coronar y artery 09/29/2019 Overview: Dr. Pederson follows regularly; S/P PTCA and stenting at [facility], 2000 Last Assessment & Plan: Currently she [...] of this encounter (statuses as of 07/17/2022) [facility] History of Past illness Narrative* Problem [...] 06/25/2015 Overview: Dr. Schmitz, [facility], [facility] [place] Tenosynovitis of foot and ankle 06/29/2008 [...] Unspecified 01/13/2005 06/25/2015 Coronary artery disease involving [place] coronar y artery 09/29/2019 Overview: Dr. Pederson follows regularly; S/P PTCA and stenting at [facility], 2001 Last Assessment & Plan: Currently she [...] of this encounter (statuses as of 07/21/2022) [facility] History of Past illness Narrative* Problem [...] 06/25/2015 Overview: Dr. Schmitz, [facility], [facility] [place] Tenosynovitis of foot and ankle 06/29/2008 04/30/2009 [...] Unspecified 01/13/2005 06/25/2015 Coronary artery disease involving [place] coronar y artery 09/29/2019 Overview: Dr. Pederson follows regularly; S/P PTCA and stenting at [facility], 2000 Last Assessment & Plan: Currently she [...] of this encounter (statuses as of 07/25/2022) [facility] History of Past illness Narrative* Problem [...] examination 04/30/2009 06/25/2015 Overview: Dr. Schmitz, [facility], [facility] [place] Tenosynovitis of foot and ankle 06/29/2008 [...] Unspecified 01/13/2005 06/25/2015 Coronary artery disease involving [place] coronar y artery 09/29/2019 Overview: Dr. Pederson follows regularly; S/P PTCA and stenting at [facility], 2000 Last Assessment & Plan: Currently she [...] of this encounter (statuses as of 08/01/2022) [facility] History of Past illness Narrative* Problem [...] 06/25/2015 Overview: Dr. Schmitz, [facility], [facility] [place] Tenosynovitis of foot and ankle 06/29/2008 04/30/2009 [...] Unspecified 01/13/2005 06/25/2015 Coronary artery disease involving [place] coronar y artery 09/29/2019 Overview: Dr. Pederson follows regularly; S/P PTCA and stenting at [facility], 2000 Last Assessment & Plan: Currently she [...] of this encounter (statuses as of 08/04/2022) [facility] History of Past illness Narrative* Problem [...] 06/25/2015 Overview: Dr. Schmitz, [facility], [facility] [place] Tenosynovitis of foot and ankle 06/29/2008 04/30/2009 [...] Unspecified 01/13/2005 06/25/2015 Coronary artery disease involving [place] coronar y artery 09/29/2019 Overview: Dr. Pederson follows regularly; S/P PTCA and stenting at [facility], 2000 Last Assessment & Plan: Currently she [...] of this encounter (statuses as of 08/07/2022) [facility] History of Past illness Narrative* Problem [...] 06/25/2015 Overview: Dr. Schmitz, [facility], [facility] [place] Tenosynovitis of foot and ankle 06/29/2008 [...] Unspecified 01/13/2005 06/25/2015 Coronary artery disease involving [place] coronar y artery 09/29/2019 Overview: Dr. Pederson follows regularly; S/P PTCA and stenting at [facility], 2000 Last Assessment & Plan: Currently she [...] of this encounter (statuses as of 08/07/2022) [facility] History of Past illness Narrative* Problem [...] 06/25/2015 Overview: Dr. Schmitz, [facility], [facility] [place] Tenosynovitis of foot and ankle 06/29/2008 04/30/2009 Acute bronchitis 05/18/2008 04/30/2009 Anemia, unspecified 12/04/2006 09/29/2019 Cellulitis and abscess of foot, except toes 05/10/200604/30/2009 Onychia and paronychia of toe 08/11/2006 Pain [...] Unspecified 01/13/2005 06/25/2015 Coronary artery disease involving [place] coronar y artery 09/29/2019 Overview: Dr. Pederson follows regularly; S/P PTCA and stenting at [facility], 2000 Last Assessment & Plan: Currently she [...] of this encounter (statuses as of 08/08/2022) [facility] History of Past illness Narrative* Problem [...] 06/25/2015 Overview: Dr. Schmitz, [facility] Tenosynovitis of foot and ankle 06/29/2008 04/30/2009 [...] Unspecified 01/13/2005 06/25/2015 Coronary artery disease involving [place] coronar y artery 09/29/2019 Overview: Dr. Pederson follows regularly; S/P PTCA and stenting at [facility], 2001 Last Assessment & Plan: Currently she [...] of this encounter (statuses as of 08/08/2022) [facility] History of Past illness Narrative* Problem [...] 08/12/2015 09/29/2019 BPPV (benign paroxysmal positional vertigo) 10 08/2014 09/29/2019 Vertigo 02/02/2013 06/25/2015 Thoracic or lumbosacral neuritis or radiculitis, unspecified 03/01/2012 09/29/2019 Abnormality of gait 03/01/2012 06/25/2015 Pain in joint, lower leg 01/21/2010 016 Routine general medical exam ination at a health care facility 04/30/2009 06/25/2015 Overview: 04/30/2009, establish from Dr. Givens 06/25/2010, yearly check-up (60 minutes) Routine gynecological examination 04/30/2009 06/25/2015 Overview: Dr. Schmitz, [facility], [facility] [place] Tenosynovitis of foot and ankle 06/29/2008 04/30/2009 [...] Unspecified 01/13/2005 06/25/2015 Coronary artery disease involving [place] coronar y artery 09/29/2019 Overview: Dr. Pederson follows regularly; S/P PTCA and stenting at [facility], 2001 Last Assessment & Plan: Currently she [...] of this encounter (statuses as of 08/21/2022) [facility] History of Past illness Narrative* Problem [...] 06/25/2015 Overview: Dr. Schmitz, [facility], [facility] [place] Tenosynovitis of foot and ankle 06/29/2008 [...] Unspecified 01/13/2005 06/25/2015 Coronary artery disease involving [place] coronar y artery 09/29/2019 Overview: Dr. Pederson follows regularly; S/P PTCA and stenting at [facility], 2001 Last Assessment & Plan: Currently she [...] of this encounter (statuses as of 10/02/2022) [facility] History of Past illness Narrative* Problem [...] 06/25/2015 Overview: Dr. Schmitz, [facility], [facility] [place] Tenosynovitis of foot and ankle 06/29/2008 [...] Unspecified 01/13/2005 06/25/2015 Coronary artery disease involving [place] coronar y artery 09/29/2019 Overview: Dr. Pederson follows regularly; S/P PTCA and stenting at [facility], 2000 Last Assessment & Plan: Currently she [...] of this encounter (statuses as of 10/10/2022) [facility] History of Past illness Narrative* Problem [...] 06/25/2015 Overview: Dr. Schmitz, [facility], [facility] [place] Tenosynovitis of foot and ankle 06/29/2008 04/30/2009 [...] Unspecified 01/13/2005 06/25/2015 Coronary artery disease involving [place] coronar y artery 09/29/2019 Overview: Dr. Pederson follows regularly; S/P PTCA and stenting at [facility], 2000 Last Assessment & Plan: Currently she [...] of this encounter (statuses as of 10/15/2022) [facility] History of Past illness Narrative* Problem [...] 06/25/2015 Overview: Dr. Schmitz, [facility], [facility] [place] Tenosynovitis of foot and ankle 06/29/2008 04/30/2009 [...] Unspecified 01/13/2005 06/25/2015 Coronary artery disease involving [place] coronar y artery 09/29/2019 Overview: Dr. Pederson follows regularly; S/P PTCA and stenting at [facility], 2000 Last Assessment & Plan: Currently she [...] of this encounter (statuses as of 10/23/2022) [facility] History of Past illness Narrative* Problem [...] 06/25/2015 Overview: Dr. Schmitz, [facility], [facility] [place] Tenosynovitis of foot and ankle 06/29/2008 04/30/2009 [...] 01/13/2005 06/25/2015 Coronary artery disease invo lving [place] coronary artery 09/29/2019 Overview: Dr. Pederson follows regularly; S/P PTCA and stenting at [facility], 2000 Last Assessment & Plan: Currently she [...] of this encounter (statuses as of 11/18/2022) [facility] History of Past illness Narrative* Problem [...] 06/25/2015 Overview: Dr. Schmitz, [facility] Tenosynovitis of foot and ankle 06/29/2008 04/30/2009 [...] 01/13/2005 06/25/2015 Coronary artery disease invo lving [place] coronary artery 09/29/2019 Overview: Dr. Pederson follows regularly; S/P PTCA and stenting at [facility], 2000 Last Assessment & Plan: Currently she [...] of this encounter (statuses as of 11/18/2022) [facility] History of Past illness Narrative* Problem [...] 06/25/2015 Overview: Dr. Schmitz, [facility], [facility] [place] Tenosynovitis of foot and ankle 06/29/2008 [...] 01/13/2005 06/25/2015 Coronary artery disease invo lving [place] coronary artery 09/29/2019 Overview: Dr. Pederson follows regularly; S/P PTCA and stenting at [facility], 2000 Last Assessment & Plan: Currently she [...] of this encounter (statuses as of 11/25/2022) [facility] History of Past illness Narrative* Problem [...] examination 04/30/2009 06/25/2015 Overview: Dr. Schmitz, [facility], [facility] [place] Tenosynovitis of foot and ankle 06/29/2008 [...] 01/13/2005 06/25/2015 Coronary artery disease invo lving [place] coronary artery 09/29/2019 Overview: Dr. Pederson follows regularly; S/P PTCA and stenting at [facility], 2000 Last Assessment & Plan: Currently she [...] of this encounter (statuses as of 12/03/2022) [facility] History of Past illness Narrative* Problem [...] 06/25/2015 Overview: Dr. Schmitz, [facility] [place] Tenosynovitis of foot and ankle 06/29/2008 04/30/2009 [...] 01/13/2005 06/25/2015 Coronary artery disease invo lving [place] coronary artery 09/29/2019 Overview: Dr. Pederson follows regularly; S/P PTCA and stenting at [facility], 2000 Last Assessment & Plan: Currently she [...] of this encounter (statuses as of 12/04/2022) [facility] History of Past illness Narrative* Problem [...] 06/25/2015 Overview: Dr. Schmitz, [facility], [facility] [place] Tenosynovitis of foot and ankle 06/29/2008 04/30/2009 [...] 01/13/2005 06/25/2015 Coronary artery disease invo lving [place] coronary artery 09/29/2019 Overview: Dr. Pederson follows regularly; S/P PTCA and stenting at [facility], 2001 Last Assessment & Plan: Currently she [...] of this encounter (statuses as of 12/05/2022) [facility] History of Past illness Narrative* Problem [...] 06/25/2015 Overview: Dr. Schmitz, [facility], [facility] [place] Tenosynovitis of foot and ankle 06/29/2008 [...] 01/13/2005 06/25/2015 Coronary artery disease invo lving [place] coronary artery 09/29/2019 Overview: Dr. Pederson follows regularly; S/P PTCA and stenting at [facility], 2000 Last Assessment & Plan: Currently she [...] of this encounter (statuses as of 12/10/2022) [facility] History of Past illness Narrative* Problem [...] 06/25/2015 Overview: Dr. Schmitz, [facility], [facility] [place] Tenosynovitis of foot and ankle 06/29/2008 [...] 01/13/2005 06/25/2015 Coronary artery disease invo lving [place] coronary artery 09/29/2019 Overview: Dr. Pederson follows regularly; S/P PTCA and stenting at [facility], 2001 Last Assessment & Plan: Currently she [...] of this encounter (statuses as of 12/18/2022) [facility] History of Past illness Narrative* Problem [...] 06/25/2015 Overview: Dr. Schmitz, [facility], [facility] [place] Tenosynovitis of foot and ankle 06/29/2008 [...] 01/13/2005 06/25/2015 Coronary artery disease invo lving [place] coronary artery 09/29/2019 Overview: Dr. Pederson follows regularly; S/P PTCA and stenting at [facility], 2000 Last Assessment & Plan: Currently she [...] of this encounter (statuses as of 01/10/2023) [facility] History of Past illness Narrative* Problem [...] 06/25/2015 Overview: Dr. Schmitz, [facility], [facility] [place] Tenosynovitis of foot and ankle 06/29/2008 [...] 01/13/2005 06/25/2015 Coronary artery disease invo lving [place] coronary artery 09/29/2019 Overview: Dr. Pederson follows regularly; S/P PTCA and stenting at [facility], 2000 Last Assessment & Plan: Currently she [...] of this encounter (statuses as of 02/22/2023) [facility] History of Past illness Narrative* Problem [...] 06/25/2015 Overview: Dr. Schmitz, [facility], [facility] [place] Tenosynovitis of foot and ankle 06/29/2008 [...] 01/13/2005 06/25/2015 Coronary artery disease invo lving [place] coronary artery 09/29/2019 Overview: Dr. Pederson follows regularly; S/P PTCA and stenting at [facility], 2000 Last Assessment & Plan: Currently she [...] of this encounter (statuses as of 02/22/2023) [facility] History of Past illness Narrative* Problem [...] 06/25/2015 Overview: Dr. Schmitz, [facility] Tenosynovitis of foot and ankle 06/29/2008 04/30/2009 [...] 01/13/2005 06/25/2015 Coronary artery disease invo lving [place] coronary artery 09/29/2019 Overview: Dr. Pederson follows regularly; S/P PTCA and stenting at [facility], 2000 Last Assessment & Plan: Currently she [...] of this encounter (statuses as of 02/24/2023) [facility] of Past illness Narrative* Problem [...] 06/25/2015 Overview: Dr. Schmitz, [facility], [facility] [place] Tenosynovitis of foot and ankle 06/29/2008 04/30/2009 [...] 01/13/2005 06/25/2015 Coronary artery disease invo lving [place] coronary artery 09/29/2019 Overview: Dr. Pederson follows regularly; S/P PTCA and stenting at [facility], 2000 Last Assessment & Plan: Currently she [...] of this encounter (statuses as of 02/24/2023) [facility] of Past illness Narrative* Problem [...] examination 04/30/2009 06/25/2015 Overview: Dr. Schmitz, [facility], [facility] [place] Tenosynovitis of foot and ankle 06/29/2008 [...] 01/13/2005 06/25/2015 Coronary artery disease invo lving [place] coronary artery 09/29/2019 Overview: Dr. Pederson follows regularly; S/P PTCA and stenting at [facility], 2000 Last Assessment & Plan: Currently she [...] of this encounter (statuses as of 03/05/2023) [facility] of Past illness Narrative* Problem [...] 06/25/2015 Overview: Dr. Schmitz, [facility], [facility] [place] Tenosynovitis of foot and ankle 06/29/2008 [...] 01/13/2005 06/25/2015 Coronary artery disease invo lving [place] coronary artery 09/29/2019 Overview: Dr. Pederson follows regularly; S/P PTCA and stenting at [facility], 2000 Last Assessment & Plan: Currently she [...] of this encounter (statuses as of 03/10/2023) [facility] of Past illness Narrative* Problem [...] 06/25/2015 Overview: Dr. Schmitz, [facility], [facility] [place] Tenosynovitis of foot and ankle 06/29/2008 04/30/2009 [...] 01/13/2005 06/25/2015 Coronary artery disease invo lving [place] coronary artery 09/29/2019 Overview: Dr. Pederson follows regularly; S/P PTCA and stenting at [facility], 2001 Last Assessment & Plan: Currently she [...] of this encounter (statuses as of 03/18/2023) [facility] of Past illness Narrative* Problem [...] 06/25/2015 Overview: Dr. Schmitz, [facility], [facility] [place] Tenosynovitis of foot and ankle 06/29/2008 04/30/2009 [...] 01/13/2005 06/25/2015 Coronary artery disease invo lving [place] coronary artery 09/29/2019 Overview: Dr. Pederson follows regularly; S/P PTCA and stenting at [facility], 2000 Last Assessment & Plan: Currently she [...] as of this encounter (statuses as of 05/22/2023) [facility] [place] [facility] Diagnosis Rheumatoid arthritis of multiple sites with negative rheumatoid factor- Primary long term care social worker current use of systemic steroids Encounter for long-term (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 of steroids long term care social worker (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 of aspirin History of stroke [...] lumbosacral intervertebral disc [facility] Gastroesophageal reflux disease without esophagitis Esophageal reflux [facility] Diagnosis Onychomycosis- Primary Dermatophytosis of nail Pain in toe of left foot Pain in limb Pain in toe of right foot Pain in limb Diabetic polyneuropathy associated with type 2 diabetes mellitus (HCC) Hyperkeratosis Acquired keratoderma Hammertoe of left foot [facility] Chronic constipation- Primary Unspecified constipation Bloating Flatulence, eructation, and gas pain [facility] Diagnosis Bilateral carotid artery stenosis- Primary Occlusion and stenosis of carotid artery without mention of cerebral infarction [facility] Diagnosis Encounter for screening mammogram for malignant neoplasm of breast Other screening mammogram [facility] Diagnosis Restless legs Restless legs syndrome (RLS) Mixed hyperlipidemia [facility] Chronic constipation- Primary Unspecified constipation Type 1 diabetes mellitus with diabetic neuropathy (HCC) Type I (juvenile type) diabetes mellitus with neurological manifestations, not stated as uncontrolled Essential hypertension Unspecified essential hypertension [facility] Diagnosis Bilateral carotid artery stenosis- Primary Occlusion and stenosis of carotid artery without mention of cerebral infarction [facility] Diagnosis Hyperkeratosis- Primary Acquired keratoderma Hamm[place]oe of right foot [facility] [place] [facility] Diagnosis Encounter for screening mammogram for malignant neoplasm of breast- Primary Other screening mammogram [facility] Diagnosis Essential hypertension- Primary Unspecified essential hypertension 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) Anxiety state Anxiety state, unspecified Left shoulder pain, unspecified chronicity Chronic constipation Unspecified constipation Vitamin D deficiency Unspecified vitamin D deficiency [facility] [place] [facility] Diagnosis Anxiety state Anxiety state, unspecified Restless legs Restless legs syndrome (RLS) Type 1 diabetes mellitus with diabetic neuropathy (HCC) Type I (juvenile type) diabetes mellitus with neurological manifestations, not stated as uncontrolled Brittle diabetes (HCC) Type II or unspecified type diabetes mellitus without mention of complication, not stated as uncontrolled [facility] Diagnosis Contusion of lesser toe of right foot without damage to nail, initial encounter- Primary Onychomycosis Dermatophytosis of nail Pain in toe of left foot Pain in limb Pain in toe of right foot Pain in limb Hyperkeratosis Acquired keratoderma [facility] [place] [facility] Diagnosis Pain in right foot Pain in limb [facility] [place] [facility]* Diagnosis Urinary tract infection without hematuria, site unspecified- Primary [facility] [place] [facility]* Diagnosis Urinary tract infection without hematuria, site unspecified- Primary [facility] [place] [facility]* Diagnosis Hyperkeratosis- Primary Acquired keratoderma Onychomycosis Dermatophytosis of nail Pain in toe of left foot Pain in limb Pain in toe of right foot Pain in limb Diabetic polyneuropathy associated with type 2 diabetes mellitus (HCC) Hammertoe of right foot Hammertoe of left foot [facility] [place] [facility] Diagnosis Anxiety state Anxiety state, unspecified documented [facility] [place] [facility] Diagnosis Gastroesophageal reflux disease without esophagitis Esophageal reflux Essential hypertension Unspecified essential hypertension [facility] [place] [facility]* Diagnosis Hyperkeratosis- Primary Acquired keratoderma Diabetic polyneuropathy associated with type 2 diabetes mellitus (HCC) documented [facility] [place] [facility]* Diagnosis Essential hypertension- Primary Unspecified essential hypertension Type 1 diabetes mellitus with diabetic neuropathy (HCC) Type I (juvenile type) diabetes mellitus with neurological manifestations, not stated as uncontrolled Bilateral edema of lower extremity Edema Dysuria Proteinuria, unspecified type Dark yellow-colored urine Mixed hyperlipidemia [place] and callosities [facility] Acute cough [facility] Diagnosis Gastroesophageal reflux disease without esophagitis Esophageal reflux [facility] [place] [facility] Diagnosis Acute cough [facility] [place] [facility]* Diagnosis Pneumonia of both lungs due to infectious organism, unspecified part of lung- Primary Mild intermittent asthma with acute exacerbation Unspecified asthma, with exacerbation [facility] [place] [facility] Diagnosis Pneumonia of both lungs due to infectious organism, unspecified part of lung- Primary 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 ([facility]) [place] and callosities [facility] [place] [facility] Diagnosis Pneumonia of both lungs due to infectious organism, unspecified part of lung- Primary [facility] [place] [facility]* Diagnosis Pneumonia of both lungs due to infectious organism, unspecified part of lung- Primary Shortness of breath Chest pain on breathing Painful respiration Cough, unspecified type [facility] [place] [facility]* Diagnosis Anxiety state Anxiety state, unspecified [facility] [place] [facility]* Diagnosis ILD (interstitial lung disease) ([facility])- Primary Postinflammatory pulmonary fibrosis [facility] [place] [facility]* Diagnosis Restless legs Restless legs syndrome (RLS) [facility] [place] [facility]* Diagnosis NSIP (nonspecific interstitial pneumonitis)- Primary [...] (TIA), and cerebral infarction without residual deficits shelter (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 of aspirin shelter current use of non-steroidal anti-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 (NSAID) Encounter for long-term (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 of non-steroidal anti-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 Long-term use of high-risk medication Long-term use of Plaquenil On statin therapy [facility] [place] [facility] Diagnosis Rheumatoid arthritis, involving unspecified site, unspecified whether rheumatoid factor present (HCC)- Primary Interstitial lung disease (HCC) Postinflammatory pulmonary fibrosis [facility] [place] [facility]* Diagnosis Medicare annual wellness visit, subsequent- Primary Routine general medical examination at a [facility] care facility Anxiety state Anxiety state, unspecified Essential hypertension Unspecified essential hypertension Type 1 diabetes mellitus with diabetic neuropathy (HCC) Type I (juvenile type) diabetes mellitus with neurological manifestations, not stated as uncontrolled Mixed hyperlipidemia Gastroesophageal reflux disease without esophagitis Esophageal reflux [facility] [place] [facility]* Diagnosis Screening mammogram, encounter for- Primary documented [facility] [place] [facility]* Diagnosis Secondary pulmonary arterial hypertension- Primary [...] not elsewhere classified [facility] [place] [facility] Diagnosis Bilateral carotid artery stenosis- Primary Occlusion and stenosis of carotid artery without mention of cerebral infarction [facility] [place] [facility]* Diagnosis Left hip pain- Primary Pain [...] macular edema (HCC) documented in this encounter [facility] note* Diagnosis NSIP (nonspecific interstitial pneumonitis) Other specified alveolar and parietoalveolar pneumonopathies Interstitial lung disease Postinflammatory pulmonary fibrosis [facility] [place] [facility] Diagnosis Secondary pulmonary arterial hypertension [facility] [place] [facility] Diagnosis NSIP (nonspecific interstitial pneumonitis) Other specified alveolar and parietoalveolar pneumonopathies Interstitial lung disease Postinflammatory pulmonary fibrosis [facility] Diagnosis Anxiety state Anxiety state, unspecified [facility] [place] [facility]* Diagnosis Pulmonary fibrosis- Primary Postinflammatory pulmonary fibrosis Restrictive lung disease Other diseases of lung, not elsewhere classified SOLE on CPAP Obstructive sleep apnea (adult) (pediatric) Uncomplicated asthma, unspecified asthma severity, unspecified whether persistent Screening for viral disease Special screening examination for unspecified viral disease [facility] [place] [facility]* Diagnosis 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)- Primary Hypertension, unspecified type Insomnia, unspecified type Rheumatoid arthritis, involving unspecified site, unspecified whether rheumatoid factor present (HCC) Left hip pain Pain in joint, pelvic region and thigh [facility] [place] [facility]* Diagnosis Rheumatoid arthritis of multiple sites with negative rheumatoid factor- Primary History of rheumatoid arthritis Personal history of arthritis History of stroke Transient ischemic attack (TIA), and cerebral infarction without residual deficits long term care social worker (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 of aspirin long term care social worker current use of non-steroidal anti-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 (NSAID) Encounter for long-term (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 of non-steroidal anti-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 long term care social worker current use of systemic steroids Encounter for [...] thoracolumbar intervertebral disc [facility] Diagnosis Screening mammogram, encounter for [facility] [place] [facility]* Diagnosis Chest pain on breathing Painful respiration Shortness of breath Elevated d-dimer Abnormal coagulation profile [facility] [place] [facility]* Diagnosis Seropositive rheumatoid arthritis (HCC)- Primary Rheumatoid arthritis Interstitial lung disease (HCC) Postinflammatory pulmonary fibrosis Long-term use of Plaquenil Encounter for long-term (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 of other medications Osteopenia of right hip [facility] Osteopenia of right hip documented in this encounter [facility] for referral (narrative)* Outpatient Procedure (Routine) - Authorized Specialty Diagnoses / Procedures Referred By Bridger t Referred To Contact [facility] [place] Diagnoses Bilateral carotid artery stenosis Procedures US CAROTID ARTERIES OMAR VAS LAB DUPLEX SCAN EXTRACRANIAL ART COMPL BI STUDY Manuela Thomas APRN.SUGARCANE RESEARCH TECHNICIAN [address] [place] [address] [facility] [place] [address] [place] [address] Referral ID Status Reason Start Date Expiration Date Visits Requested Visits Authorized [id number] Authorized Auto-Generat ed Referral 10/15/2021 10/15/2022 1 1 [facility] for referral (narrative)* Diagnostic Procedure Only (Routine) - Closed Specialty Diagnoses / Procedures Referred By Bridger t Referred To Contact BR IMAGING Diagnoses Encounter for screening mammogram for malignant neoplasm of breast Procedures CARLEE SCREENING SCREENING MAMMOGRAPHY BI 2-VIEW BREAST INC Sultana Diamond APRN.SUGARCANE RESEARCH TECHNICIAN [address] [place] [address] [facility] [address] [place] [address] Referral ID Status Reason Start Date Expiration Date V isits Requested Visits Authorized [id number] Closed Auto-Generate d Referral 10/11/2021 11/10/2022 1 1 [facility] for referral (narrative)* Outpatient Procedure (Routine) - Pending Review Specialty Diagnoses / Procedures [facility] To Contact [facility] [place] Diagnoses Bilateral carotid artery stenosis Procedures US CAROTID ARTERIES OMAR VAS LAB DUPLEX SCAN EXTRACRANIAL ART COMPL BI STUDY Manuela Thomas APRN.SUGARCANE RESEARCH TECHNICIAN [address] [place] [address] [facility] [place] [address] [place] [address] Referral ID Status Reason Start Date Expiration Date Visits Requested Visits Authorized [id number] Pending Review Auto-Generat ed Referral 08/07/2022 11/05/2022 1 1 [facility] for referral (narrative)* Diagnostic Procedure Only (Routine) - Closed Specialty Diagnoses / Procedures Referred By Contac t Referred To Contact BR IMAGING Diagnoses Encounter for screening mammogram for malignant neoplasm of breast Procedures CARLEE SCREENING SCREENING MAMMOGRAPHY BI 2-VIEW BREAST INC Sultana Diamond APRN.SUGARCANE RESEARCH TECHNICIAN [address] [place] [address] [facility] [address] [place] [address] Referral ID Status Reason Start Date Expiration Date V isits Requested Visits Authorized [id number] Closed Auto-Generate d Referral 10/11/2021 11/10/2022 1 1 [facility] for referral (narrative)* Diagnostic Procedure Only (Routine) - Closed Specialty Diagnoses / Procedures Referred By Contac t Referred To Contact XR IMAGING Diagnoses Pain in right foot Procedures XR FOOT GENERAL 3V AP/LAT/OBL RIGHT RADEX FOOT COMPLETE MINIMUM 3 VIEWS Lauren Rangel [address] [place] [address] Xr Imaging Referral ID Status Reason Start Date Expiration Date V isits Requested Visits Authorized [id number] Closed Auto-Generate d Referral 12/27/2021 01/26/2023 1 1 [facility] for referral (narrative)* Outpatient Procedure (Routine) - Pending Review Specialty Diagnoses / Procedures Referred By Contac t Referred To Contact [facility] Diagnoses ILD (interstitial lung disease) (HCC) Procedures SIX MINUTE WALK CARDIOPULMONARY EXERCISE STRESS Manuela Carver APRN.SUGARCANE RESEARCH TECHNICIAN [address] [place] [address] [facility] [place] [address] [place] [address] Referral ID Status Reason Start Date Expiration Date Visits Requested Visits Authorized [id number] Pending Review Auto-Generat ed Referral 08/07/2022 09/06/2023 1 1 * Outpatient Procedure (Routine) - Pending Review Specialty Diagnoses / Procedures Referred By Contac t Referred To Contact [facility] Diagnoses ILD (interstitial lung disease) (HCC) Procedures LUNG DIFFUSION CAPACITY (DLCO) DIFFUSING CAPACITY Manuela Carver APRN.CNP [address] [place] [address] [place] [address] Referral ID Status Reason Start Date Expiration Date Visits Requested Visits Authorized [id number] Pending Review Auto-Generat ed Referral 08/07/2022 09/06/2023 1 1 * Outpatient Procedure (Routine) - Pending Review Specialty Diagnoses / Procedures Referred By Contac t Referred To Contact [facility] Diagnoses ILD (interstitial lung disease) (HCC) Procedures SPIROMETRY WITH DILATOR IF OBSTRUCTED BRNCDILAT RSPSE SPMTRY PRE&POST-BRNCDILAT ADMN Manuela Carver APRN.SUGARCANE RESEARCH TECHNICIAN [address] [place] [address] [place] [address] Referral ID Status Reason Start Date Expiration Date Visits Requested Visits Authorized [id number] Pending Review Auto-Generat ed Referral 08/07/2022 09/06/2023 1 1 [facility] for referral (narrative)* Consultation (Urgent) - New Request Specialty Diagnoses / Procedures Referred By Contac [...] History of rheumatoid arthritis History of stroke shelter (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 of aspirin shelter current use of non-steroidal anti-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 (NSAID) Long-term use of high-risk medication Long-term use of Plaquenil On statin therapy Clinton Farrar Jr., DO [address] [place] [address] Ivan Pal MD [address] [place] [address] Referral ID Status Reason Start Date Expiration Date V isits Requested Visits Authorized [id number] New Request 09/29/2022 10/24/2023 1 1 [facility] for referral (narrative)* Diagnostic Procedure Only (Routine) - Authorized Specialty Diagnoses / Procedures Referred By Bridger rodriguez Referred To Contact BR IMAGING Diagnoses Screening mammogram, encounter for Procedures CARLEE SCREENING SCREENING MAMMOGRAPHY BI 2-VIEW BREAST INC Vida Holguin PA-C [address] [place] [address] [facility] [address] [place] [address] Referral ID Status Reason Start Date Expiration Date Visits Requested Visits Authorized [id number] Authorized Auto-Generat ed Referral 10/22/2022 11/21/2023 1 1 [facility] for referral (narrative)* Diagnostic Procedure Only (Routine) - Closed Specialty Diagnoses / Procedures Referred By Bridger rodriguez Referred To Contact BR IMAGING Diagnoses Screening mammogram, encounter for Procedures CARLEE SCREENING SCREENING MAMMOGRAPHY BI 2-VIEW BREAST INC Vida Holguin PA-C [address] [place] [address] [facility] [address] [place] [address] Referral ID Status Reason Start Date Expiration Date V isits Requested Visits Authorized [id number] Closed Auto-Generate d Referral 10/22/2022 11/21/2023 1 1 [facility] for visit Narrative* Diagnostic Procedure Only (Routine) - Closed Specialty Diagnoses / Procedures Referred By Contac t Referred To Contact BR IMAG[facility] Diagnoses Encounter for screening mammogram for malignant neoplasm of breast Procedures CARLEE SCREENING SCREENING MAMMOGRAPHY BI 2-VIEW BREAST INC CAD Sultana Harvey APRN.SUGARCANE RESEARCH TECHNICIAN [address] [place] [address] [facility] [address] [place] [address] Referral ID Status Reason Start Date Expiration Date V isits Requested Visits Authorized [id number] Closed Auto-Generate d Referral 10/11/2021 11/10/2022 1 1 [facility] for visit Narrative* Diagnostic Procedure Only (Routine) - Closed Specialty Diagnoses / Procedures Referred By Contac t Referred To Contact XR IMAGING Diagnoses Pain in right foot Procedures XR FOOT GENERAL 3V AP/LAT/OBL RIGHT RADEX FOOT COMPLETE MINIMUM 3 VIEWS Lauren Rangel [address] [place] [address] Xr Imaging Referral ID Status Reason Start Date Expiration Date V isits Requested Visits Authorized [id number] Closed Auto-Generate d Referral 12/27/2021 01/26/2023 1 1 [facility] for visit Narrative* Diagnostic Procedure Only (Routine) - Closed Specialty Diagnoses / Procedures Referred By Contac t Referred To Contact BR IM[facility] Diagnoses Screening mammogram, encounter for Procedures CARLEE SCREENING SCREENING MAMMOGRAPHY BI 2-VIEW BREAST INC Vida Holguin PA-C [address] [place] [address] [facility] [address] [place] [address] Referral ID Status Reason Start Date Expiration Date V isits Requested Visits Authorized [id number] Closed Auto-Generate d Referral 10/22/2022 11/21/2023 1 1 [facility] Reason for Referral Status Reason Specialty Diagnoses / Procedures Referred By Contact Referred To Contact New Request Occupational Therapy Diagnoses Rheumatoid arthritis involving multiple sites with positive rheumatoid factor Antiplatelet or antithrombotic long-term use Fatigue, unspecified type History of rheumatoid arthritis History of stroke long term care social worker (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 of aspirin Asthma, unspecified asthma [...] type Rotator cuff arthropathy of both shoulders Clinton Farrar Jr., DO [address] [place] [address] Scheduling Instructions . Status Reason Specialty Diagnoses / Procedures Referred By Contact Referred To Contact New Request Physical Therapy Diagnoses Rheumatoid arthritis involving multiple sites with positive rheumatoid factor Antiplatelet or antithrombotic long-term use Fatigue, unspecified type History of rheumatoid arthritis History of stroke shelter (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 of aspirin Asthma, unspecified asthma [...] type Rotator cuff arthropathy of both shoulders Clinton Farrar Jr., DO [address] [place] [address] Specialty Diagnoses / Procedures Referred By Bridger rodriguez Referred To Contact Sultana Harvey APRN.SUGARCANE RESEARCH TECHNICIAN [address] [place] [address] Referral ID Status Reason Start Date Expiration Date V isits Requested Visits Authorized [id number] Authorized 08/27/2021 09/26/2022 1 1 Specialty Diagnoses / Procedures Referred By Bridger rodriguez Referred To Contact Gastroenterology Diagnoses Chronic constipation Procedures CONSULT TO GASTROENTEROLOGY OFFICE/OUTPATIENT [facility] 60-74 MINUTES Sultana Harvey APRN.SUGARCANE RESEARCH TECHNICIAN [address] [place] [address] Referral ID Status Reason Start Date Expiration Date Visits Requested Visits Authorized [id number] Authorized PCP Requested Referral 10/24/2021 10/24/2022 1 1 Specialty Diagnoses / Procedures Referred By Contac t Referred To Contact Podiatry Diagnoses Type 1 diabetes mellitus with diabetic neuropathy (HCC) [place] Procedures CONSULT TO PODIATRY OFFICE/OUTPATIENT [facility] 60-74 MINUTES Older, CARLOS EDUARDO Weinberg.SUGARCANE RESEARCH TECHNICIAN [address] [place] [address] Referral ID Status Reason Start Date Expiration Date Visits Requested Visits Authorized [id number] Authorized PCP Requested Referral 06/09/2022 06/09/2023 1 1 Specialty Diagnoses / Procedures Referred By Contac t Referred To Contact Diagnoses Acute cough Clinton Heart, DO [address] [facility] [address] [place] [address] Referral ID Status Reason Start Date Expiration Date V isits Requested Visits Authorized [id number] Pending Review 1 1 Specialty Diagnoses / Procedures Referred By Contac t Referred To Contact Diagnoses Acute cough Wes, Sultana, [employer].SUGARCANE RESEARCH TECHNICIAN [address] [place] [address] Referral ID Status Reason Start Date Expiration Date Visits Re quested Visits Authorized [id number] Closed 1 1 Specialty Diagnoses / Procedures Referred By Contac t Referred To Contact Rheumatology Diagnoses Rheumatoid arthritis, involving unspecified site, unspecified whether rheumatoid factor present (HCC) Interstitial lung disease (HCC) Procedures CONSULT TO RHEUM/IMMUN DISEASE OFFICE/OUTPATIENT [facility] 60-74 MINUTES Older, Sultana, [employer].SUGARCANE RESEARCH TECHNICIAN [address] [place] [address] Referral ID Status Reason Start Date Expiration Date Visits Requested Visits Authorized [id number] Authorized PCP Requested Referral 10/01/2022 10/01/2023 1 1 Specialty Diagnoses / Procedures Referred By Contac t Referred To Contact Cardiovascular Medicine Diagnoses Secondary pulmonary arterial hypertension Procedures ECHOCARDIOGRAM NJ ECHO HEART XTHORACIC,COMPLETE W DOPPLER Ivan Pal MD [address] [place] [address] [facility] [address] [place] [address] Referral ID Status Reason Start Date Expiration Date V isits Requested Visits Authorized [id number] Auth Not Needed 11/12/2022 12/07/2023 1 1 Specialty Diagnoses / Procedures Referred By Contac t Referred To Contact Diagnoses NSIP (nonspecific interstitial pneumonitis) Interstitial lung disease Procedures PFT COMPLETE Ivan Pal MD [address] [place] [id number] Referral ID Status Reason Start Date Expiration Date V isits Requested Visits Authorized [id number] Auth Not Needed 11/12/2022 12/07/2023 1 1 Specialty Diagnoses / Procedures Referred By Contac t Referred To Contact Diagnoses NSIP (nonspecific interstitial pneumonitis) Interstitial lung disease Procedures EXERCISE-6 MIN. WALK Ivan Pal MD [address] [place] [phone] Referral ID Status Reason Start Date Expiration Date V isits Requested Visits Authorized [id number] Auth Not Needed 11/12/2022 12/07/2023 1 1 Specialty Diagnoses / Procedures Referred By Contac t Referred To Contact Diagnoses NSIP (nonspecific interstitial pneumonitis) Interstitial lung disease Procedures CT CHEST WITHOUT CONTRAST CHG DIAGNOSTIC COMPUTED TOMOGRAPHY THORAX W/O CNTRST Ivan Pal MD [address] [place] [address] Referral ID Status Reason Start Date Expiration Date V isits Requested Visits Authorized [id number] Auth Not Needed 11/12/2022 12/07/2023 1 1 Specialty Diagnoses / Procedures Referred By Contac t Referred To Contact Orthopedics Diagnoses Left hip pain Fall, initial encounter Procedures CONSULT TO ORTHOPAEDICS OFFICE/OUTPATIENT [facility] HIGH [facility] 60-74 MINUTES Older, CARLOS EDUARDO Weinberg.SUGARCANE RESEARCH TECHNICIAN [address] [place] [address] Referral ID Status Reason Start Date Expiration Date Visits Requested Visits Authorized [id number] Authorized PCP Requested Referral 11/24/2022 11/24/2023 1 1 Specialty Diagnoses / Procedures Referred By Contac t Referred To Contact Computerized Tomography Scan Diagnoses NSIP (nonspecific interstitial pneumonitis) Interstitial lung disease Procedures CT CHEST WITHOUT CONTRAST CHG DIAGNOSTIC COMPUTED TOMOGRAPHY THORAX W/O CNTRST Ivan Pal MD [address] [place] [address] Scan [address] [place] [address] Referral ID Status Reason Start Date Expiration Date Visits Re quested Visits Authorized [id number] Closed 11/12/2022 12/07/2023 1 1 Referral ID Status Reason Start Date Expiration Date Visits Re quested Visits Authorized [id number] Closed 11/12/2022 12/07/2023 1 1 Specialty Diagnoses / Procedures Referred By Contac t Referred To Contact Pulmonary Disease Diagnoses NSIP (nonspecific interstitial pneumonitis) Interstitial lung disease Procedures EXERCISE-6 MIN. WALK Ivan Pal MD [address] [place] [address] [facility] [address] [place] [phone] Referral ID Status Reason Start Date Expiration Date Visits Re quested Visits Authorized [id number] Closed 11/12/2022 12/07/2023 1 1 Specialty Diagnoses / Procedures Referred By Contac t Referred To Contact Pulmonary Disease Diagnoses Pulmonary fibrosis Procedures NJ PHYS/QHP SVCS OP PULM REHAB WO CONT OXIMTRY MNTR Ivan Pal MD [address] [place] [address] Referral ID Status Reason Start Date Expiration Date V isits Requested Visits Authorized [id number] New Request 01/08/2023 02/02/2024 1 1 Specialty Diagnoses / Procedures Referred By Contac t Referred To Contact Diagnoses Restrictive lung disease Pulmonary fibrosis Uncomplicated asthma, unspecified asthma severity, unspecified whether persistent Procedures PFT COMPLETE Ivan Pal MD [address] [place] [address] Referral ID Status Reason Start Date Expiration Date V isits Requested Visits Authorized [id number] Auth Not Needed 01/08/2023 02/02/2024 1 1 Specialty Diagnoses / Procedures Referred By Contac t Referred To Contact Diagnoses Restrictive lung disease Pulmonary fibrosis Uncomplicated asthma, unspecified asthma severity, unspecified whether persistent Procedures EXERCISE-6 MIN. 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) Procedures CONSULT TO ENDOCRINOLOGY OFFICE/OUTPATIENT NEW HIGH MDM 60-74 MINUTES Sultana Harvey APRN.SUGARCANE RESEARCH TECHNICIAN [address] [place] [address] Referral ID Status Reason Start Date Expiration Date Visits Requested Visits Authorized [id number] Authorized PCP Requested Referral 01/09/2023 01/09/2024 1 1 Specialty Diagnoses / Procedures Referred By Contac t Referred To Contact CT IMAGING Diagnoses Chest pain on breathing Shortness of breath Elevated d-dimer Procedures CT CHEST W IVCON PE DIAGNOSTIC COMPUTED TOMOGRAPHY THORAX W/CONTRAST Sultana Harvey APRN.SUGARCANE RESEARCH TECHNICIAN [address] [place] [address] [place] [address] Referral ID Status Reason Start Date Expiration Date V isits Requested Visits Authorized [id number] Closed Auto-Generate d Referral 08/05/2022 09/04/2023 1 1 History of Present Illness * Clinton Farrar Jr., - 05/16/2019 10:15 AM EST History of [...] History of rheumatoid arthritis History of stroke shelter (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 of aspirin Asthma, unspecified asthma [...] very difficult. Patient has been on Plaquenil [id number]. 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 Asthma, unspecified asthma [...] FoundNo Family History Records Found Advance Directives Documents on File Type Date Recorded Patient Radiology Therapist Expl anation Advance Directive(s) Advance Directive(s) 09/28/2019 9:21 PM Advance Directive(s) 11/10/2018 10:04 AM [facility] 11-10-2018 Advance Directive(s) 11/10/2018 9:59 AM Advance Directive(s) 08/29/2015 7:09 AM Documents on File Type Date Recorded Patient Radiology Therapist Expl anation Advance Directive(s) Advance Directive(s) 09/28/2019 9:21 PM Advance Directive(s) 11/10/2018 10:04 AM [facility] 11-10-2018 Advance Directive(s) 11/10/2018 9:59 AM Advance Directive(s) 08/29/2015 7:09 AM Documents on File Type Date Recorded Patient Radiology Therapist Expl anation Advance Directive(s) 11/10/2018 9:59 AM Documents on File Type Date Recorded Patient Radiology Therapist Expl anation Advance Directive(s) 11/10/2018 9:59 AM Hospital Course Note HNO ID: [id number] Author: Damari Moore Service: Hospital Medicine Author [...] Annual wellness Reason Comments Fax referral to [facility] Reason Comments Patient Question Reason Onset Date Comments Insurance Authorization 07/09/2022 Reason Onset Date Comments Refill Request 07/17/2022 Reason Comments Recheck Pneumonia follow up Reason Comments Recheck Pneumonia follow up Reason Comments Orders Reason Comments Recheck SOB follow up Reason Onset Date Comments Refill Request 08/05/2021 Refill Request 08/06/2022 Reason Comments New ILD Reason Comments Faxed to [facility] Pulm Reason Onset Date Comments Refill Request 08/18/2022 Reason Comments Follow-up Patient is here for 4 month F/U. Patient states she has not been feeling well. Had pneumonia and is seeing a automotive glass specialist. Having pain in fingers. Severe pain [...] History of rheumatoid arthritis History of stroke long term care social worker (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 of aspirin long term care social worker current use of non-steroidal anti-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 (NSAID) Long-term use of high-risk medication Long-term use of Plaquenil On statin therapy Leni Magallanes, Clinton G, DO [address] [place] [address] Ivan Pal MD [address] [place] [address] Referral ID Status Reason Start Date Expiration Date V isits Requested Visits Authorized [id number] New Request 09/29/2022 10/24/2023 1 1 Reason Onset Date Comments Population Health Navigation Outreach 11/17/2022 ACO TIA PCSA Reason Comments Carotid artery stenosis Berkley to review 11/11/22 carotid US Follow Up Carotid Stenosis - C arotid US done 11/11/22 Reason Comments Recheck Follow up, L leg ronnie n from fall Specialty Diagnoses / Procedures Referred By Contac t Referred To Contact Pulmonary Disease Diagnoses NSIP (nonspecific interstitial pneumonitis) Interstitial lung disease Procedures PFT COMPLETE Ivan Pal MD [address] [place] [address] [facility] [address] [place] [phone] Referral ID Status Reason Start Date Expiration Date Visits Re quested Visits Authorized [id number] Closed 11/12/2022 12/07/2023 1 1 Specialty Diagnoses / Procedures Referred By Contac t Referred To Contact Computerized Tomography Scan Diagnoses NSIP (nonspecific interstitial pneumonitis) Interstitial lung disease Procedures CT CHEST WITHOUT CONTRAST CHG DIAGNOSTIC COMPUTED TOMOGRAPHY THORAX W/O CNTRST Ivan Pal MD [address] [place] [address] Scan [address] [place] [phone] Referral ID Status Reason Start Date Expiration Date Visits Re quested Visits Authorized [id number] Closed 11/12/2022 12/07/2023 1 1 Specialty Diagnoses / Procedures Referred By Contac t Referred To Contact Cardiovascular Medicine Diagnoses Secondary pulmonary arterial hypertension Procedures ECHOCARDIOGRAM [place] ECHO HEART XTHORACIC,COMPLETE W DOPPLER Ivan Pal MD [address] [place] [address] [facility]ch[facility] [address] [place] [phone] Referral ID Status Reason Start Date Expiration Date Visits Re quested Visits Authorized [id number] Closed 11/12/2022 12/07/2023 1 1 Specialty Diagnoses / Procedures Referred By Contac t Referred To Contact Pulmonary Disease Diagnoses NSIP (nonspecific interstitial pneumonitis) Interstitial lung disease Procedures EXERCISE-6 MIN. WALK Ivan Pal MD [address] [place] [address] [facility] [address] [place] [phone] Referral ID Status Reason Start Date Expiration Date Visits Re quested Visits Authorized [id number] Closed 11/12/2022 12/07/2023 1 1 Reason Comments [...] DIAGNOSTIC COMPUTED TOMOGRAPHY THORAX W/CONTRAST Sultana Harvey APRN.SUGARCANE RESEARCH TECHNICIAN [address] [place] [address] [facility] [place] [id number] Referral ID Status Reason Start Date Expiration Date V isits Requested Visits Authorized [id number] Closed Auto-Generate d Referral 08/05/2022 09/04/2023 1 1 Reason Comments New Patient Specialty Diagnoses / Procedures Referred By Bridger rodriguez Referred To Contact Rheumatology Diagnoses Rheumatoid arthritis, involving unspecified site, unspecified whether rheumatoid factor present (HCC) Interstitial lung disease (HCC) Procedures CONSULT TO RHEUM/IMMUN DISEASE OFFICE/OUTPATIENT NEW HIGH MDM 60-74 MINUTES Sultana Harvey APRN.SUGARCANE RESEARCH TECHNICIAN [address] [place] [address] Referral ID Status Reason Start Date Expiration Date V isits Requested Visits Authorized [id number] Closed PCP Requested Referral 10/01/2022 10/01/2023 1 1 Reason Comments Educational Manager - Other Reason Comments vaccine question Reason Comments Patient Question Results INFORMATION SOURCE (unrecogn ized section and content) DATE CREATED AUTHOR AUTHOR'S ORGANIZ ATION 11/19/[address] [facility] [place] [place] [facility] DATE CREATED AUTHOR AUTHOR'S ORGANIZ ATION 02/02/2023 [facility] DATE CREATED AUTHOR AUTHOR'S ORGANIZ ATION 04/10/2023 [facility] DATE CREATED AUTHOR AUTHOR'S ORGANIZ ATION 05/20/2023 [facility] Care Teams (unrecognized sec tion and content) English Adjunct Faculty Relationship Specialty Start Date End Date Darryn Anderson MD [address] [place] [address] PCP - General Internal Medicine 07/05/15 Raquel Herrera Endocrinology 10/19/15 Jonas Etienne [address] [place], [place] [address] [phone] Physician Ophthalmology 03/21/20 English Adjunct Faculty Relationship Specialty Start Date End Date Darryn Anderson MD [address] [place], [place] [id number] [phone] - General Internal Medicine 07/05/15 Raquel Herrera Endocrinology 10/19/15 Jonas Etienne [address] [place] [address] Physician Ophthalmology 03/21/20 English Adjunct Faculty Relationship Specialty Start Date End Date Darryn Anderson MD [address] [place], [place] [address] [phone] PCP - General Internal Medicine 07/05/15 Raquel Herrera Endocrinology 10/19/15 Jonas Etienne [address] [place] [address] Physician Ophthalmology 03/21/20 English Adjunct Faculty Relationship Specialty Start Date End Date Darryn Anderson MD [address] [place] [address] PCP - General Internal Medicine 07/05/15 Raquel Herrera Endocrinology 10/19/15 Jonas Etienne [address] [place] [address] Physician Ophthalmology 03/21/20 English Adjunct Faculty Relationship Specialty Start Date End Date Darryn Anderson MD [address] [place] [address] PCP - General Internal Medicine 07/05/15 Raquel Herrera Endocrinology 10/19/15 Jonas Etienne [address] [place] [address] Physician Ophthalmology 03/21/20 English Adjunct Faculty Relationship Specialty Start Date End Date Darryn Anderson MD [address] [place] [address] PCP - General Internal Medicine 07/05/15 Raquel Herrera Endocrinology 10/19/15 Jonas Etienne [address] [place] [address] Physician Ophthalmology 03/21/20 English Adjunct Faculty Relationship Specialty Start Date End Date Darryn Anderson MD [address] [place] [address] PCP - General Internal Medicine 07/05/15 Raquel Herrera Endocrinology 10/19/15 Jonas Etienne [address] [place] [address] Physician Ophthalmology 03/21/20 English Adjunct Faculty Relationship Specialty Start Date End Date Darryn Anderson MD [address] [place] [address] PCP - General Internal Medicine 07/05/15 Raquel Herrera Endocrinology 10/19/15 Jonas Etienne [address] [place] [address] Physician Ophthalmology 03/21/20 English Adjunct Faculty Relationship Specialty Start Date End Date Darryn Anderson MD [address] [place] [address] PCP - General Internal Medicine 07/05/15 Raquel Herrera Endocrinology 10/19/15 Jonas Etienne [address] [place] [address] Physician Ophthalmology 03/21/20 English Adjunct Faculty Relationship Specialty Start Date End Date Darryn Anderson MD [address] [place] [address] PCP - General Internal Medicine 07/05/15 Raquel Herrera Endocrinology 10/19/15 Jonas Etienne [address] [place] [address] Physician Ophthalmology 03/21/20 English Adjunct Faculty Relationship Specialty Start Date End Date Darryn Anderson MD [address] [place] [address] PCP - General Internal Medicine 07/05/15 Raquel Herrera Endocrinology 10/19/15 Jonas Etienne [address] [place] [address] Physician Ophthalmology 03/21/20 English Adjunct Faculty Relationship Specialty Start Date End Date Darryn Anderson MD [address] [place] [address] PCP - General Internal Medicine 07/05/15 Raquel Herrera MD Endocrinology 10/19/15 Jonas Etienne [address] [place] [address] Physician Ophthalmology 03/21/20 English Adjunct Faculty Relationship Specialty Start Date End Date Darryn Anderson MD [address] [place] [address] PCP - General Internal Medicine 07/05/15 Raquel Herrera MD Endocrinology 10/19/15 Jonas Etienne [address] [place] [address] Physician Ophthalmology 03/21/20 English Adjunct Faculty Relationship Specialty Start Date End Date Darryn Anderson MD [address] [place] [address] PCP - General Internal Medicine 07/05/15 Raquel Herrera MD Endocrinology 10/19/15 Jonas Etienne [address] [place] [address] Physician Ophthalmology 03/21/20 English Adjunct Faculty Relationship Specialty Start Date End Date Darryn Anderson MD [address] [place] [address] PCP - General Internal Medicine 07/05/15 Raquel Herrera MD Endocrinology 10/19/15 Jonas Etienne [address] [place] [address] Physician Ophthalmology 03/21/20 English Adjunct Faculty Relationship Specialty Start Date End Date Darryn Anderson MD [address] [facility] [place] [address] PCP - General Internal Medicine 07/05/15 Raquel Herrera MD Endocrinology 10/19/15 Jonas Etienne [address] [place] [address] Physician Ophthalmology 03/21/20 English Adjunct Faculty Relationship Specialty Start Date End Date Darryn Anderson MD [address] [place] [address] PCP - General Internal Medicine 07/05/15 Raquel Herrera MD Endocrinology 10/19/15 Jonas Etienne [address] [place] [address] Physician Ophthalmology 03/21/20 English Adjunct Faculty Relationship Specialty Start Date End Date Darryn Anderson MD [address] [place] [address] PCP - General Internal Medicine 07/05/15 Raquel Herrera MD Endocrinology 10/19/15 Jonas Etienne [address] [place] [address] Physician Ophthalmology 03/21/20 English Adjunct Faculty Relationship Specialty Start Date End Date Darryn Anderson MD [address] [place] [address] PCP - General Internal Medicine 07/05/15 Raquel Herrera MD Endocrinology 10/19/15 Jonas Etienne [address] [place] [address] Physician Ophthalmology 03/21/20 English Adjunct Faculty Relationship Specialty Start Date End Date Darryn Anderson MD [address] [place] [address] PCP - General Internal Medicine 07/05/15 Raquel Herrera MD Endocrinology 10/19/15 Jonas Etienne [address] [place] [address] Physician Ophthalmology 03/21/20 English Adjunct Faculty Relationship Specialty Start Date End Date Darryn Anderson MD [address] [place] [address] PCP - General Internal Medicine 07/05/15 Raquel Herrera MD Endocrinology 10/19/15 Jonas Etienne [address] [place] [address] Physician Ophthalmology 03/21/20 English Adjunct Faculty Relationship Specialty Start Date End Date Darryn Anderson MD [address] [place] [address] PCP - General Internal Medicine 07/05/15 Raquel Herrera MD [address] [place] [address] Endocrinology 10/19/15 Jonas Etienne [address] [place] [address] Physician Ophthalmology 03/21/20 English Adjunct Faculty Relationship Specialty Start Date End Date Darryn Anderson MD [address] [facility] [place] [address] PCP - General Internal Medicine 07/05/15 Raquel Herrera MD [address] [facility] [place] [address] Endocrinology 10/19/15 Jonas Etienne [address] [place] [address] Physician Ophthalmology 03/21/20 English Adjunct Faculty Relationship Specialty Start Date End Date Darryn Anderson MD [address] [facility] [place] [address] PCP - General Internal Medicine 07/05/15 Raquel Herrera MD [address] [facility] [place] [address] Endocrinology 10/19/15 Jonas Etienne [address] [place] [address] Physician Ophthalmology 03/21/20 English Adjunct Faculty Relationship Specialty Start Date End Date Darryn Anderson MD [address] [facility] [place] [address] PCP - General Internal Medicine 07/05/15 Raquel Herrera MD [address] [facility] [place] [address] Endocrinology 10/19/15 Jonas Etienne [address] [place] [address] Physician Ophthalmology 03/21/20 English Adjunct Faculty Relationship Specialty Start Date End Date Darryn Anderson MD [address] [facility] [place] [address] PCP - General Internal Medicine 07/05/15 Raquel Herrera MD [address] [facility] [place] [address] Endocrinology 10/19/15 Jonas Etienne [address] [place] [address] Physician Ophthalmology 03/21/20 English Adjunct Faculty Relationship Specialty Start Date End Date Darryn Anderson MD [address] [facility] [place] [address] PCP - General Internal Medicine 07/05/15 Raquel Herrera MD [address] [facility] [place] [address] Endocrinology 10/19/15 Jonas Etienne [address] [place] [address] Physician Ophthalmology 03/21/20 English Adjunct Faculty Relationship Specialty Start Date End Date Darryn Anderson MD [address] [facility] [place] [address] PCP - General Internal Medicine 07/05/15 Raquel Herrera MD [address] [facility] [place] [address] Endocrinology 10/19/15 Jonas Etienne [address] [place] [address] Physician Ophthalmology 03/21/20 English Adjunct Faculty Relationship Specialty Start Date End Date Darryn Anderson MD [address] [facility] [place] [address] PCP - General Internal Medicine 07/05/15 Raquel Herrera MD [address] [facility] [place] [address] Endocrinology 10/19/15 Jonas Etienne [address] [place] [address] Physician Ophthalmology 03/21/20 English Adjunct Faculty Relationship Specialty Start Date End Date Darryn Anderson MD [address] [facility] [place] [address] PCP - General Internal Medicine 07/05/15 Raquel Herrera MD [address] [facility] [place] [address] Endocrinology 10/19/15 Jonas Etienne [address] [place] [address] Physician Ophthalmology 03/21/20 English Adjunct Faculty Relationship Specialty Start Date End Date Darryn Anderson MD [address] [facility] [place] [address] PCP - General Internal Medicine 07/05/15 Raquel Herrera MD [address] [facility] [place] [address] Endocrinology 10/19/15 Jonas Etienne [address] [place] [address] Physician Ophthalmology 03/21/20 English Adjunct Faculty Relationship Specialty Start Date End Date Darryn Anderson MD [address] [facility] [place] [address] PCP - General Internal Medicine 07/05/15 Raquel Herrera MD [address] [facility] [place] [address] Endocrinology 10/19/15 Jonas Etienne [address] [place] [address] Physician Ophthalmology 03/21/20 English Adjunct Faculty Relationship Specialty Start Date End Date Darryn Anderson MD [address] [facility] [place] [address] PCP - General Internal Medicine 07/05/15 Raquel Herrera MD [address] [facility] [place] [address] Endocrinology 10/19/15 Jonas Etienne [address] [place] [address] Physician Ophthalmology 03/21/20 English Adjunct Faculty Relationship Specialty Start Date End Date Darryn Anderson MD [address] [facility] [place] [address] PCP - General Internal Medicine 07/05/15 Raquel Herrera MD [address] [facility] [place] [address] Endocrinology 10/19/15 Jonas Etienne [address] [place] [address] Physician Ophthalmology 03/21/20 English Adjunct Faculty Relationship Specialty Start Date End Date Darryn Anderson MD [address] [facility] [place] [address] PCP - General Internal Medicine 07/05/15 Raquel Herrera MD [address] [facility] [place] [address] Endocrinology 10/19/15 Jonas Etienne [address] [place] [address] Physician Ophthalmology 03/21/20 English Adjunct Faculty Relationship Specialty Start Date End Date Darryn Anderson MD [address] [facility] [place] [address] PCP - General Internal Medicine 07/05/15 Raquel Herrera MD [address] [facility] [place] [address] Endocrinology 10/19/15 Jonas Etienne [address] [place] [address] Physician Ophthalmology 03/21/20 English Adjunct Faculty Relationship Specialty Start Date End Date Darryn Anderson MD [address] [facility] [place] [address] PCP - General Internal Medicine 07/05/15 Raquel Herrera MD [address] [facility] [place] [address] Endocrinology 10/19/15 Jonas Etienne [address] [place] [address] Physician Ophthalmology 03/21/20 English Adjunct Faculty Relationship Specialty Start Date End Date Darryn Anderson MD [address] [facility] [place] [address] PCP - General Internal Medicine 07/05/15 Raquel Herrera MD [address] [facility] [place] [address] Endocrinology 10/19/15 Jonas Etienne [address] [place] [address] Physician Ophthalmology 03/21/20 English Adjunct Faculty Relationship Specialty Start Date End Date Darryn Anderson MD [address] [facility] [place] [address] PCP - General Internal Medicine 07/05/15 Raquel Herrera MD [address] [facility] [place] [address] Endocrinology 10/19/15 Jonas Etienne [address] [place] [address] Physician Ophthalmology 03/21/20 English Adjunct Faculty Relationship Specialty Start Date End Date Darryn Anderson MD [address] [facility] [place] [address] PCP - General Internal Medicine 07/05/15 Raquel Herrera MD [address] [facility] [place] [address] Endocrinology 10/19/15 Jonas Etienne [address] [place] [address] Physician Ophthalmology 03/21/20 English Adjunct Faculty Relationship Specialty Start Date End Date Darryn Anderson MD [address] [facility] [place] [address] PCP - General Internal Medicine 07/05/15 Raquel Herrera MD [address] [facility] [place] [address] Endocrinology 10/19/15 Jonas Etienne [address] [place] [address] Physician Ophthalmology 03/21/20 English Adjunct Faculty Relationship Specialty Start Date End Date Darryn Anderson MD [address] [facility] [place] [address] PCP - General Internal Medicine 07/05/15 Raquel Herrera MD [address] [facility] [place] [address] Endocrinology 10/19/15 Jonas Etienne [address] [place] [address] Physician Ophthalmology 03/21/20 English Adjunct Faculty Relationship Specialty Start Date End Date Darryn Anderson MD [address] [facility] [place] [address] PCP - General Internal Medicine 07/05/15 Raquel Herrera MD [address] [facility] [place] [address] Endocrinology 10/19/15 Jonas Etienne [address] [place] [address] Physician Ophthalmology 03/21/20 English Adjunct Faculty Relationship Specialty Start Date End Date Darryn Anderson MD [address] [place] [address] PCP - General Internal Medicine 05/16/19 English Adjunct Faculty Relationship Specialty Start Date End Date Darryn Anderson MD [address] [facility] [place] [address] PCP - General Internal Medicine 07/05/15 Raquel Herrera MD [address] [facility] [place] [address] Endocrinology 10/19/15 Jonas Etienne [address] [place] [address] Physician Ophthalmology 03/21/20 English Adjunct Faculty Relationship Specialty Start Date End Date Darryn Anderson MD [address] [facility] [place] [address] PCP - General Internal Medicine 07/05/15 Raquel Herrera MD [address] [facility] [place] [address] Endocrinology 10/19/15 Jonas Etienne [address] [place] [address] Physician Ophthalmology 03/21/20 English Adjunct Faculty Relationship Specialty Start Date End Date Darryn Anderson MD [address] [facility] [place] [address] PCP - General Internal Medicine 07/05/15 Raquel Herrera MD [address] [place] [address] Endocrinology 10/19/15 Jonas Etienne [address] [place] [address] Physician Ophthalmology 03/21/20 English Adjunct Faculty Relationship Specialty Start Date End Date Darryn Anderson MD [address] [place] [address] PCP - General Internal Medicine 07/05/15 Raquel Herrera MD [address] [place] [address] Endocrinology 10/19/15 Jonas Etienne [address] [place] [address] Physician Ophthalmology 03/21/20 English Adjunct Faculty Relationship Specialty Start Date End Date Darryn Anderson MD [address] [place] [address] PCP - General Internal Medicine 05/16/19 English Adjunct Faculty Relationship Specialty Start Date End Date Darryn Anderson MD [address] [facility] [place] [address] PCP - General Internal Medicine 07/05/15 Raquel Herrera MD [address] [place] [address] Endocrinology 10/19/15 Jonas Etienne [address] [place] [address] Physician Ophthalmology 03/21/20 English Adjunct Faculty Relationship Specialty Start Date End Date Darryn Anderson MD [address] [place] [address] PCP - General Internal Medicine 07/05/15 Raquel Herrera MD [address] [place] [address] Endocrinology 10/19/15 Jonas Etienne [address] [facility] [place] [address] Physician Ophthalmology 03/21/20 English Adjunct Faculty Relationship Specialty Start Date End Date Darryn Anderson MD [address] [place] [address] PCP - General Internal Medicine 07/05/15 Raquel Herrera MD [address] [place] [address] Endocrinology 10/19/15 Jonas Etinene [address] [place] [address] Physician Ophthalmology 03/21/20 English Adjunct Faculty Relationship Specialty Start Date End Date Darryn Anderson MD [address] [place] [address] PCP - General Internal Medicine 07/05/15 Raquel Herrera MD [address] [facility] [place] [address] Endocrinology 10/19/15 Jonas Etienne [address] [place] [address] Physician Ophthalmology 03/21/20 English Adjunct Faculty Relationship Specialty Start Date End Date Darryn Anderson MD [address] [place] [address] PCP - General Internal Medicine 05/16/19 English Adjunct Faculty Relationship Specialty Start Date End Date Darryn Anderson MD [address] [place] [address] PCP - General Internal Medicine 05/16/19 English Adjunct Faculty Relationship Specialty Start Date End Date Darryn Anderson MD [address] [place] [address] PCP - General Internal Medicine 07/05/15 Raquel Herrera MD [address] [place] [address] Endocrinology 10/19/15 Jonas Etienne [address] [place] [address] Physician Ophthalmology 03/21/20 English Adjunct Faculty Relationship Specialty Start Date End Date Darryn Anderson MD [address] [place] [address] PCP - General Internal Medicine 05/16/19 English Adjunct Faculty Relationship Specialty Start Date End Date Darryn Anderson MD [address] [place] [address] PCP - General Internal Medicine 05/16/19 English Adjunct Faculty Relationship Specialty Start Date End Date Darryn Anderson MD [address] [place] [address] PCP - General Internal Medicine 07/05/15 Raquel Herrera MD [address] [facility] [place] [address] Endocrinology 10/19/15 Jonas Etienne MD [address] [facility] [place] [address] Physician Ophthalmology 03/21/20 English Adjunct Faculty Relationship Specialty Start Date End Date Darryn Anderson MD [address] [place] [address] PCP - General Internal Medicine 07/05/15 Raquel Herrera MD [address] [facility] [place] [address] Endocrinology 10/19/15 Jonas Etienne MD [address] [facility] [place] [address] Physician Ophthalmology 03/21/20 English Adjunct Faculty Relationship Specialty Start Date End Date Darryn Anderson MD [address] [place] [address] PCP - General Internal Medicine 07/05/15 Raquel Herrera MD [address] [place] [address] Endocrinology 10/19/15 Jonas Etienne MD [address] [facility] [place] [address] Physician Ophthalmology 03/21/20 English Adjunct Faculty Relationship Specialty Start Date End Date Darryn Anderson MD [address] [place] [address] PCP - General Internal Medicine 07/05/15 Raquel Herrera MD [address] [place] [address] Endocrinology 10/19/15 Jonas Etienne MD [address] [place] [address] Physician Ophthalmology 03/21/20 English Adjunct Faculty Relationship Specialty Start Date End Date Darryn Anderson MD [address] [place] [address] PCP - General Internal Medicine 07/05/15 Raquel Herrera MD [address] [place] [address] Endocrinology 10/19/15 Jonas Etienne MD [address] [place] [address] Physician Ophthalmology 03/21/20 English Adjunct Faculty Relationship Specialty Start Date End Date Darryn Anderson MD [address] [place] [address] PCP - General Internal Medicine 07/05/15 Raquel Herrera MD [address] [place] [address] Endocrinology 10/19/15 Jonas Etienne MD [address] [place] [address] Physician Ophthalmology 03/21/20 English Adjunct Faculty Relationship Specialty Start Date End Date Darryn Anderson MD [address] [place] [address] PCP - General Internal Medicine 07/05/15 Raquel Herrera MD [address] [place] [address] Endocrinology 10/19/15 Jonas Etienne MD [address] [facility], [place] [id number] Physician Ophthalmology 03/21/20 Source Comments (unrecognize d section and content) In the event this informatio n is protected by the Federal Confidentiality of Alcohol and Drug Abuse Patient Records regulations: The Federal rules restrict any use of the information to criminally investigate or prosecute any alcohol or drug abuse patient.[facility] the event this information is protected by the Federal Confidentiality of Alcohol and Drug Abuse Patient Records regulations: The Federal rules restrict any use of the information to criminally investigate or prosecute any alcohol or drug abuse patient.[facility]In the event this information is protected by the Federal Confidentiality of Alcohol and Drug Abuse Patient Records regulations: The Federal rules restrict any use of the information to criminally investigate or prosecute any alcohol or drug abuse patient.[facility]In the event this information is protected by the Federal Confidentiality of Alcohol and Drug Abuse Patient Records regulations: The Federal rules restrict any use of the information to criminally investigate or prosecute any alcohol or drug abuse patient.[facility]In the event this information is protected by the Federal Confidentiality of Alcohol and Drug Abuse Patient Records regulations: The Federal rules restrict any use of the information to criminally investigate or prosecute any alcohol or drug abuse patient.[facility]In the event this information is protected by the Federal Confidentiality of Alcohol and Drug Abuse Patient Records regulations: The Federal rules restrict any use of the information to criminally investigate or prosecute any alcohol or drug abuse patient.[facility]In the event this information is protected by the Federal Confidentiality of Alcohol and Drug Abuse Patient Records regulations: The Federal rules restrict any use of the information to criminally investigate or prosecute any alcohol or drug abuse patient.[facility]In the event this information is protected by the Federal Confidentiality of Alcohol and Drug Abuse Patient Records regulations: The Federal rules restrict any use of the information to criminally investigate or prosecute any alcohol or drug abuse patient.[facility]In the event this information is protected by the Federal Confidentiality of Alcohol and Drug Abuse Patient Records regulations: The Federal rules restrict any use of the information to criminally investigate or prosecute any alcohol or drug abuse patient.[facility]In the event this information is protected by the Federal Confidentiality of Alcohol and Drug Abuse Patient Records regulations: The Federal rules restrict any use of the information to criminally investigate or prosecute any alcohol or drug abuse patient.[facility] HospitalIn the event this information is protected by the Federal Confidentiality of Alcohol and Drug Abuse Patient Records regulations: The Federal rules restrict any use of the information to criminally investigate or prosecute any alcohol or drug abuse patient.[facility] HospitalIn the event this information is protected by the Federal Confidentiality of Alcohol and Drug Abuse Patient Records regulations: The Federal rules restrict any use of the information to criminally investigate or prosecute any alcohol or drug abuse patient.[facility]In the event this information is protected by the Federal Confidentiality of Alcohol and Drug Abuse Patient Records regulations: The Federal rules restrict any use of the information to criminally investigate or prosecute any alcohol or drug abuse patient.[facility]In the event this information is protected by the Federal Confidentiality of Alcohol and Drug Abuse Patient Records regulations: The Federal rules restrict any use of the information to criminally investigate or prosecute any alcohol or drug abuse patient.[facility] HospitalIn the event this information is protected by the Federal Confidentiality of Alcohol and Drug Abuse Patient Records regulations: The Federal rules restrict any use of the information to criminally investigate or prosecute any alcohol or drug abuse patient.[facility] HospitalIn the event this information is protected by the Federal Confidentiality of Alcohol and Drug Abuse Patient Records regulations: The Federal rules restrict any use of the information to criminally investigate or prosecute any alcohol or drug abuse patient.[facility] HospitalIn the event this information is protected by the Federal Confidentiality of Alcohol and Drug Abuse Patient Records regulations: The Federal rules restrict any use of the information to criminally investigate or prosecute any alcohol or drug abuse patient.[facility] HospitalIn the event this information is protected by the Federal Confidentiality of Alcohol and Drug Abuse Patient Records regulations: The Federal rules restrict any use of the information to criminally investigate or prosecute any alcohol or drug abuse patient.[facility] HospitalIn the event this information is protected by the Federal Confidentiality of Alcohol and Drug Abuse Patient Records regulations: The Federal rules restrict any use of the information to criminally investigate or prosecute any alcohol or drug abuse patient.[facility] HospitalIn the event this information is protected by the Federal Confidentiality of Alcohol and Drug Abuse Patient Records regulations: The Federal rules restrict any use of the information to criminally investigate or prosecute any alcohol or drug abuse patient.[facility] HospitalIn the event this information is protected by the Federal Confidentiality of Alcohol and Drug Abuse Patient Records regulations: The Federal rules restrict any use of the information to criminally investigate or prosecute any alcohol or drug abuse patient.[facility] HospitalIn the event this information is protected by the Federal Confidentiality of Alcohol and Drug Abuse Patient Records regulations: The Federal rules restrict any use of the information to criminally investigate or prosecute any alcohol or drug abuse patient.[facility] HospitalIn the event this information is protected by the Federal Confidentiality of Alcohol and Drug Abuse Patient Records regulations: The Federal rules restrict any use of the information to criminally investigate or prosecute any alcohol or drug abuse patient.[facility] HospitalIn the event this information is protected by the Federal Confidentiality of Alcohol and Drug Abuse Patient Records regulations: The Federal rules restrict any use of the information to criminally investigate or prosecute any alcohol or drug abuse patient.[facility] HospitalIn the event this information is protected by the Federal Confidentiality of Alcohol and Drug Abuse Patient Records regulations: The Federal rules restrict any use of the information to criminally investigate or prosecute any alcohol or drug abuse patient.[facility] HospitalIn the event this information is protected by the Federal Confidentiality of Alcohol and Drug Abuse Patient Records regulations: The Federal rules restrict any use of the information to criminally investigate or prosecute any alcohol or drug abuse patient.[facility] HospitalIn the event this information is protected by the Federal Confidentiality of Alcohol and Drug Abuse Patient Records regulations: The Federal rules restrict any use of the information to criminally investigate or prosecute any alcohol or drug abuse patient.[facility] HospitalIn the event this information is protected by the Federal Confidentiality of Alcohol and Drug Abuse Patient Records regulations: The Federal rules restrict any use of the information to criminally investigate or prosecute any alcohol or drug abuse patient.[facility] HospitalIn the event this information is protected by the Federal Confidentiality of Alcohol and Drug Abuse Patient Records regulations: The Federal rules restrict any use of the information to criminally investigate or prosecute any alcohol or drug abuse patient.[facility] HospitalIn the event this information is protected by the Federal Confidentiality of Alcohol and Drug Abuse Patient Records regulations: The Federal rules restrict any use of the information to criminally investigate or prosecute any alcohol or drug abuse patient.[facility] HospitalIn the event this information is protected by the Federal Confidentiality of Alcohol and Drug Abuse Patient Records regulations: The Federal rules restrict any use of the information to criminally investigate or prosecute any alcohol or drug abuse patient.[facility] HospitalIn the event this information is protected by the Federal Confidentiality of Alcohol and Drug Abuse Patient Records regulations: The Federal rules restrict any use of the information to criminally investigate or prosecute any alcohol or drug abuse patient.[facility] HospitalIn the event this information is protected by the Federal Confidentiality of Alcohol and Drug Abuse Patient Records regulations: The Federal rules restrict any use of the information to criminally investigate or prosecute any alcohol or drug abuse patient.[facility] HospitalIn the event this information is protected by the Federal Confidentiality of Alcohol and Drug Abuse Patient Records regulations: The Federal rules restrict any use of the information to criminally investigate or prosecute any alcohol or drug abuse patient.[facility] HospitalIn the event this information is protected by the Federal Confidentiality of Alcohol and Drug Abuse Patient Records regulations: The Federal rules restrict any use of the information to criminally investigate or prosecute any alcohol or drug abuse patient.[facility] HospitalIn the event this information is protected by the Federal Confidentiality of Alcohol and Drug Abuse Patient Records regulations: The Federal rules restrict any use of the information to criminally investigate or prosecute any alcohol or drug abuse patient.[facility] HospitalIn the event this information is protected by the Federal Confidentiality of Alcohol and Drug Abuse Patient Records regulations: The Federal rules restrict any use of the information to criminally investigate or prosecute any alcohol or drug abuse patient.[facility] HospitalIn the event this information is protected by the Federal Confidentiality of Alcohol and Drug Abuse Patient Records regulations: The Federal rules restrict any use of the information to criminally investigate or prosecute any alcohol or drug abuse patient.[facility] HospitalIn the event this information is protected by the Federal Confidentiality of Alcohol and Drug Abuse Patient Records regulations: The Federal rules restrict any use of the information to criminally investigate or prosecute any alcohol or drug abuse patient.[facility] HospitalIn the event this information is protected by the Federal Confidentiality of Alcohol and Drug Abuse Patient Records regulations: The Federal rules restrict any use of the information to criminally investigate or prosecute any alcohol or drug abuse patient.[facility] HospitalIn the event this information is protected by the Federal Confidentiality of Alcohol and Drug Abuse Patient Records regulations: The Federal rules restrict any use of the information to criminally investigate or prosecute any alcohol or drug abuse patient.[facility] HospitalIn the event this information is protected by the Federal Confidentiality of Alcohol and Drug Abuse Patient Records regulations: The Federal rules restrict any use of the information to criminally investigate or prosecute any alcohol or drug abuse patient.[facility] HospitalIn the event this information is protected by the Federal Confidentiality of Alcohol and Drug Abuse Patient Records regulations: The Federal rules restrict any use of the information to criminally investigate or prosecute any alcohol or drug abuse patient.[facility] HospitalIn the event this information is protected by the Federal Confidentiality of Alcohol and Drug Abuse Patient Records regulations: The Federal rules restrict any use of the information to criminally investigate or prosecute any alcohol or drug abuse patient.[facility] HospitalIn the event this information is protected by the Federal Confidentiality of Alcohol and Drug Abuse Patient Records regulations: The Federal rules restrict any use of the information to criminally investigate or prosecute any alcohol or drug abuse patient.[facility] HospitalIn the event this information is protected by the Federal Confidentiality of Alcohol and Drug Abuse Patient Records regulations: The Federal rules restrict any use of the information to criminally investigate or prosecute any alcohol or drug abuse patient.[facility] HospitalIn the event this information is protected by the Federal Confidentiality of Alcohol and Drug Abuse Patient Records regulations: The Federal rules restrict any use of the information to criminally investigate or prosecute any alcohol or drug abuse patient.[facility] HospitalIn the event this information is protected by the Federal Confidentiality of Alcohol and Drug Abuse Patient Records regulations: The Federal rules restrict any use of the information to criminally investigate or prosecute any alcohol or drug abuse patient.[facility] HospitalIn the event this information is protected by the Federal Confidentiality of Alcohol and Drug Abuse Patient Records regulations: The Federal rules restrict any use of the information to criminally investigate or prosecute any alcohol or drug abuse patient.[facility] HospitalIn the event this information is protected by the Federal Confidentiality of Alcohol and Drug Abuse Patient Records regulations: The Federal rules restrict any use of the information to criminally investigate or prosecute any alcohol or drug abuse patient.[facility] HospitalIn the event this information is protected by the Federal Confidentiality of Alcohol and Drug Abuse Patient Records regulations: The Federal rules restrict any use of the information to criminally investigate or prosecute any alcohol or drug abuse patient.[facility] HospitalIn the event this information is protected by the Federal Confidentiality of Alcohol and Drug Abuse Patient Records regulations: The Federal rules restrict any use of the information to criminally investigate or prosecute any alcohol or drug abuse patient.[facility] HospitalIn the event this information is protected by the Federal Confidentiality of Alcohol and Drug Abuse Patient Records regulations: The Federal rules restrict any use of the information to criminally investigate or prosecute any alcohol or drug abuse patient.[facility]In the event this information is protected by the Federal Confidentiality of Alcohol and Drug Abuse Patient Records regulations: The Federal rules restrict any use of the information to criminally investigate or prosecute any alcohol or drug abuse patient.[facility] HospitalIn the event this information is protected by the Federal Confidentiality of Alcohol and Drug Abuse Patient Records regulations: The Federal rules restrict any use of the information to criminally investigate or prosecute any alcohol or drug abuse patient.[facility] HospitalIn the event this information is protected by the Federal Confidentiality of Alcohol and Drug Abuse Patient Records regulations: The Federal rules restrict any use of the information to criminally investigate or prosecute any alcohol or drug abuse patient.[facility] HospitalIn the event this information is protected by the Federal Confidentiality of Alcohol and Drug Abuse Patient Records regulations: The Federal rules restrict any use of the information to criminally investigate or prosecute any alcohol or drug abuse patient.[facility] HospitalIn the event this information is protected by the Federal Confidentiality of Alcohol and Drug Abuse Patient Records regulations: The Federal rules restrict any use of the information to criminally investigate or prosecute any alcohol or drug abuse patient.[facility] HospitalIn the event this information is protected by the Federal Confidentiality of Alcohol and Drug Abuse Patient Records regulations: The Federal rules restrict any use of the information to criminally investigate or prosecute any alcohol or drug abuse patient.[facility] HospitalIn the event this information is protected by the Federal Confidentiality of Alcohol and Drug Abuse Patient Records regulations: The Federal rules restrict any use of the information to criminally investigate or prosecute any alcohol or drug abuse patient.[facility] HospitalIn the event this information is protected by the Federal Confidentiality of Alcohol and Drug Abuse Patient Records regulations: The Federal rules restrict any use of the information to criminally investigate or prosecute any alcohol or drug abuse patient.[facility] HospitalIn the event this information is protected by the Federal Confidentiality of Alcohol and Drug Abuse Patient Records regulations: The Federal rules restrict any use of the information to criminally investigate or prosecute any alcohol or drug abuse patient.[facility] HospitalIn the event this information is protected by the Federal Confidentiality of Alcohol and Drug Abuse Patient Records regulations: The Federal rules restrict any use of the information to criminally investigate or prosecute any alcohol or drug abuse patient.[facility] HospitalIn the event this information is protected by the Federal Confidentiality of Alcohol and Drug Abuse Patient Records regulations: The Federal rules restrict any use of the information to criminally investigate or prosecute any alcohol or drug abuse patient.[facility]In the event this information is protected by the Federal Confidentiality of Alcohol and Drug Abuse Patient Records regulations: The Federal rules restrict any use of the information to criminally investigate or prosecute any alcohol or drug abuse patient.[facility] HospitalIn the event this information is protected by the Federal Confidentiality of Alcohol and Drug Abuse Patient Records regulations: The Federal rules restrict any use of the information to criminally investigate or prosecute any alcohol or drug abuse patient.[facility] HospitalIn the event this information is protected by the Federal Confidentiality of Alcohol and Drug Abuse Patient Records regulations: The Federal rules restrict any use of the information to criminally investigate or prosecute any alcohol or drug abuse patient.[facility]In the event this information is protected by the Federal Confidentiality of Alcohol and Drug Abuse Patient Records regulations: The Federal rules restrict any use of the information to criminally investigate or prosecute any alcohol or drug abuse patient.[facility] HospitalIn the event this information is protected by the Federal Confidentiality of Alcohol and Drug Abuse Patient Records regulations: The Federal rules restrict any use of the information to criminally investigate or prosecute any alcohol or drug abuse patient.[facility]In the event this information is protected by the Federal Confidentiality of Alcohol and Drug Abuse Patient Records regulations: The Federal rules restrict any use of the information to criminally investigate or prosecute any alcohol or drug abuse patient.[facility] HospitalIn the event this information is protected by the Federal Confidentiality of Alcohol and Drug Abuse Patient Records regulations: The Federal rules restrict any use of the information to criminally investigate or prosecute any alcohol or drug abuse patient.[facility] HospitalIn the event this information is protected by the Federal Confidentiality of Alcohol and Drug Abuse Patient Records regulations: The Federal rules restrict any use of the information to criminally investigate or prosecute any alcohol or drug abuse patient.[facility] HospitalIn the event this information is protected by the Federal Confidentiality of Alcohol and Drug Abuse Patient Records regulations: The Federal rules restrict any use of the information to criminally investigate or prosecute any alcohol or drug abuse patient.[facility]In the event this information is protected by the Federal Confidentiality of Alcohol and Drug Abuse Patient Records regulations: The Federal rules restrict any use of the information to criminally investigate or prosecute any alcohol or drug abuse patient.[facility]In the event this information is protected by the Federal Confidentiality of Alcohol and Drug Abuse Patient Records regulations: The Federal rules restrict any use of the information to criminally investigate or prosecute any alcohol or drug abuse patient.[facility]In the event this information is protected by the Federal Confidentiality of Alcohol and Drug Abuse Patient Records regulations: The Federal rules restrict any use of the information to criminally investigate or prosecute any alcohol or drug abuse patient.[facility]In the event this information is protected by the Federal Confidentiality of Alcohol and Drug Abuse Patient Records regulations: The Federal rules restrict any use of the information to criminally investigate or prosecute any alcohol or drug abuse patient.[facility] HospitalIn the event this information is protected by the Federal Confidentiality of Alcohol and Drug Abuse Patient Records regulations: The Federal rules restrict any use of the information to criminally investigate or prosecute any alcohol or drug abuse patient.[facility] FOR RECORDS PERTAINING TO PATIENTS WHO [...] BE BASED ON THE PRIMARY CLINICAL RECORDS. [facility]. provides no warranty or guarantee of the accuracy or completeness of information in this document.
== END 2023-05-23 16:24 | disposition home or self-care (01) ==
PROVIDERS: Emergency Provider Emergency Medicine; PCP Internal Medicine; Referring Provider Emergency Medicine; Visit Provider Emergency Medicine
DX: M25.561 Pain in right knee (principal); E11.40 Type 2 diabetes mellitus with diabetic neuropathy, unspecified; K21.00 Gastro-esophageal reflux disease with esophagitis, without bleeding; I25.10 Atherosclerotic heart disease of native coronary artery without angina pectoris; I10 Essential (primary) hypertension; E78.00 Pure hypercholesterolemia, unspecified
CPT/HCPCS: 73562; 99282

== ENCOUNTER → 2023-09-15 | Outpatient (CLI) | payer MEDICARE, BC, SELFPAY ==
[2023-09-15 19:23] LABS: Amphetamine Urine VISTA NEGATIVE (<1000 ng/mL); Barbiturate Urine VISTA NEGATIVE (< 200 ng/mL); Benzodiazepine Urine VISTA NEGATIVE (< 200 ng/mL); Cocaine Urine VISTA NEGATIVE (< 300 ng/mL); Ecstacy Urine VISTA NEGATIVE (< 500 ng/mL); Methadone Urine VISTA NEGATIVE (< 300 ng/mL); PCP Urine VISTA NEGATIVE (< 25 ng/mL); THC Urine VISTA NEGATIVE (< 50 ng/mL); Vista UDS pH Range 4
== END | disposition home or self-care (01) ==
PROVIDERS: PCP Internal Medicine; Referring Provider Anesthesiology Pain Medicine; Visit Provider Anesthesiology Pain Medicine
DX: F11.20 Opioid dependence, uncomplicated (principal)
CPT/HCPCS: 80307

== ENCOUNTER 2023-09-29 13:59 | Outpatient (RCR) | payer MEDICARE, BC, SELFPAY | END 2023-10-18 23:59 | LOC: NS 13:59 | PROVIDERS: PCP Internal Medicine; Visit Provider Internal Medicine Gastroenterology | DX: Z71.3 Dietary counseling and surveillance (principal); E10.65 Type 1 diabetes mellitus with hyperglycemia; K31.84 Gastroparesis; E10.43 Type 1 diabetes mellitus with diabetic autonomic (poly)neuropathy | CPT/HCPCS: 97802 ==

== ENCOUNTER 2023-11-03 14:04 | Outpatient (RCR) | payer MEDICARE, BC, SELFPAY | END 2023-11-18 23:59 | LOC: NS 14:04 | PROVIDERS: PCP Internal Medicine; Referring Provider Internal Medicine Gastroenterology; Visit Provider Internal Medicine Gastroenterology | DX: Z71.3 Dietary counseling and surveillance (principal); K31.84 Gastroparesis; E10.65 Type 1 diabetes mellitus with hyperglycemia; E10.43 Type 1 diabetes mellitus with diabetic autonomic (poly)neuropathy | CPT/HCPCS: 97803 ==

== ENCOUNTER → 2023-11-26 | Outpatient (CLI) | payer MEDICARE, BC, SELFPAY ==
--- NOTE | 2023-11-26 12:29 | STRESSREP ---
Stress Test Report Pharmacologic myocardial perfusion stress test. 78-year-old lady with a history of chest pain Resting EKG demonstrates sinus rhythm with a rate of 73 bpm. Resting blood pressure is 152/82 mmHg. 0.4 mg of regadenoson was infused per usual protocol followed by rapid intravenous saline flush injection. Continuous EKG monitoring was performed. The maximum heart rate was 106 bpm which was 74 of max impacted heart rate the maximum workload was 1 metabolic equivalent. At rest there were no ST or T wave changes noted to suggest ischemia and at peak infusion nonspecific ST changes were noted which did not meet the criteria for ischemia. No clinical angina is noted. The final blood pressure was 152/60 mmHg. Myocardial perfusion protocol. 12 mCi of technetium 99m sestamibi was injected at rest. 0.4 mg of regadenoson was infused per usual protocol. At peak infusion 36 mCi of technetium 99m sestamibi was injected stress images were obtained stress and rest images were reconstructed and compared in the short axis vertical long and horizontal long axis. Gated images were also obtained. Perfusion SPECT analysis: Review of the stress images demonstrate normal uptake of tracer noted in all areas of the myocardium. The resting images similar demonstrated normal uptake of tracer noted in all areas of the myocardium. No areas of reversibility are noted to suggest ischemia and no previous infarct is noted. Gated SPECT analysis: The gated ejection fraction is 84%. Conclusion: Normal pharmacologic myocardial perfusion stress test. Preserved ejection fraction.
== END | disposition home or self-care (01) ==
LOC: CVS 06:19
PROVIDERS: PCP Internal Medicine; Referring Provider Physician Assistant Medical; Visit Provider Physician Assistant Medical
DX: I25.10 Atherosclerotic heart disease of native coronary artery without angina pectoris (principal); I10 Essential (primary) hypertension; Z95.5 Presence of coronary angioplasty implant and graft
CPT/HCPCS: 78452; 93017; A9500; A4216; J2785

== ENCOUNTER 2023-12-07 13:58 | Outpatient (RCR) | payer MEDICARE, BC, SELFPAY | END 2023-12-19 23:59 | LOC: NS 13:58 | PROVIDERS: PCP Internal Medicine; Referring Provider Internal Medicine Gastroenterology; Visit Provider Internal Medicine Gastroenterology | DX: Z71.3 Dietary counseling and surveillance (principal); E10.65 Type 1 diabetes mellitus with hyperglycemia; K31.84 Gastroparesis; E10.43 Type 1 diabetes mellitus with diabetic autonomic (poly)neuropathy | CPT/HCPCS: 97803 ==

== ENCOUNTER 2023-12-07 14:05 | Outpatient (RCR) | payer MEDICARE, BC, SELFPAY | END 2023-12-19 23:59 | LOC: NS 14:05 | PROVIDERS: PCP Internal Medicine; Referring Provider Internal Medicine Gastroenterology; Visit Provider Internal Medicine Gastroenterology | DX: Z71.3 Dietary counseling and surveillance (principal); E10.65 Type 1 diabetes mellitus with hyperglycemia; K31.84 Gastroparesis; E10.43 Type 1 diabetes mellitus with diabetic autonomic (poly)neuropathy ==

== ENCOUNTER → 2024-04-18 | Outpatient (CLI) | payer MEDICARE, BC, SELFPAY | END | disposition home or self-care (01) | LOC: LABSPEC 15:07 | PROVIDERS: PCP Internal Medicine; Referring Provider Otolaryngology Otolaryngology/Facial Plastic Surgery; Visit Provider Otolaryngology Otolaryngology/Facial Plastic Surgery | DX: J20.9 Acute bronchitis, unspecified (principal) | CPT/HCPCS: 87070 ==

== ENCOUNTER → 2024-06-06 | Outpatient (CLI) | payer MEDICARE, BC, SELFPAY ==
--- NOTE | 2024-06-06 13:53 | CT_ITS ---
PROCEDURE: CT paranasal sinuses without IV contrast REASON FOR EXAM: Sinusitis TECHNIQUE: Multiple contiguous axial images through the paranasal sinuses were obtained without the administration of intravenous contrast. Two-dimensional coronal and sagittal reformatted images were reconstructed. Low-dose imaging technique was utilized. COMPARISON: None. FINDINGS: Paranasal sinuses are clear and without evidence of fluid levels. Bilateral ostiomeatal units are patent. Bilateral sphenoethmoidal recesses are patent. Turbinates are intact. Mild leftward nasal septal deviation and tiny septal spur. Mastoid air cells and middle ear cavities are clear. TMJs are intact. Globes are intact. No suspicious erosions or sclerosis. CT/Sinus/Facial Bone IMPRESSION: 1. No evidence of paranasal sinus disease. 2. Mild leftward nasal septal deviation. One or more dose reduction techniques were used (e.g., Automated exposure contr ol, adjustment of the mA and/or kV according to patient size, use of iterative reconstruction technique). Reading Location: [facility]
== END | disposition home or self-care (01) ==
LOC: CT 13:52
PROVIDERS: PCP Internal Medicine; Referring Provider Otolaryngology Otolaryngology/Facial Plastic Surgery; Visit Provider Otolaryngology Otolaryngology/Facial Plastic Surgery
DX: J32.9 Chronic sinusitis, unspecified (principal); J30.1 Allergic rhinitis due to pollen
CPT/HCPCS: 70486

== ENCOUNTER → 2025-01-17 | Outpatient (CLI) | payer MEDICARE, BC, SELFPAY ==
--- OUTSIDE RECORDS SUMMARY | 2024-12-28 11:07 | XMS RPT_ITS ---
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 Name Role Phone SHOBHA VINES Attending Unavailable GANTA, DARRYN Primary Care Unavailable GANTA, DARRYN Primary Care Unavailable MANUELA ALEMAN Referring Unavailable GANTA, DARRYN Primary Care Unavailable SULTANA HARVEY Attending Unavailable GANTA, DARRYN Primary Care Unavailable AKIL SHARMA Attending Unavailable GANTA, DARRYN Primary Care Unavailable JUAN GRAJEDA Attending Unavailable GANTA, DARRYN Primary Care Unavailable BENDARAM, EVA GUPTA Attending Unavaila ble GANTA, DARRYN Primary Care Unavailable GANTA, DARRYN Referring Unavailable BENDARAM, EVA GUPTA Attending Unavaila ble GANTA, DARRYN Primary Care Unavailable GANTA, DARRYN Attending Unavailable GANTA, DARRYN Primary Care Unavailable BENDARAM, EVA GUPTA Attending Unavaila ble GANTA, DARRYN Primary Care Unavailable BENDARAM, EVA GUPTA Attending Unavaila ble GANTA, DARRYN Primary Care Unavailable GANTA, DARRYN Primary Care Unavailable ALBERTO TROY Referring Unavailable ALBERTO TROY Attending Unavailable GANTA, DARRYN Primary Care Unavailable BENDARAM, EVA GUPTA Referring Unavaila ble GANTA, DARRYN Primary Care Unavailable SULTANA HARVEY Attending Unavailable GANTA, DARRYN Primary Care Unavailable ALBERTO TROY Referring Unavailable GANTA, DARRYN Primary Care Unavailable SHOBHA VINES Referring Unavailable GANTA, DARRYN Primary Care Unavailable GANTA, DARRYN Attending Unavailable GANTA, DARRYN Primary Care Unavailable GANTA, DARRYN Attending Unavailable GANTA, DARRYN Primary Care Unavailable SULTANA HARVEY Referring Unavailable GANTA, DARRYN Primary Care Unavailable BENDARAM, EVA GUPTA Referring Unavaila AKIL Caballero Attending Unavailable GANTA, DARRYN Primary Care Unavailable ALBERTO TROY Referring Unavailable GANTA, DARRYN Primary Care Unavailable ALBERTO TROY Referring Unavailable JONAS RED Attending Unavailable GANTA, DARRYN Primary Care Unavailable GANTA, DARRYN Primary Care Unavailable SHOBHA, SULTANA Attending Unavailable BITNER, OMAYRA Referring Unavailable BITNER, OMAYRA Attending Unavailable GANTA, DARRYN C Primary Care Unavailable BITNER, OMAYRA Attending Unavailable GANTA, DARRYN C Referring Unavailable GANTA, DARRYN C Primary Care Unavailable GANTA, DARRYN C Primary Care Unavailable BITNER, OMAYRA Attending Unavailable GANTA, DARRYN C Referring Unavailable GANTA, DARRYN C Primary Care Unavailable BITNER, OMAYRA Referring Unavailable BITNER, OMAYRA Attending Unavailable BITNER, OMAYRA Referring Unavailable BITNER, OMAYRA Attending Unavailable GANTA, DARRYN C Primary Care Unavailable PROBLEMS DATE TYPE CONDITION / CODE ATTENDING STATUS [facility] 10/18/2020 Active 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) / E10.3293(ICD-10) EVA NIELSEN Active [facility] 12/28/2024 Active Controlled type 1 diabetes with neuropathy (HCC) / E10.40(ICD-10) EVA NIELSEN Active [facility] 12/28/2024 Active 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 (HCC) / E10.43(ICD-10) EAV NIELSEN GUPTA Active [facility] 12/28/2024 Active Diabetes mellitu s type 1, with 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, 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 (HCC) / E10.8(ICD-10) EVA NIELSEN Active [facility] 12/28/2024 Active Diabetes mellitu s type 1, with complication, on mcfp insulin pump (HCC) / Z96.41(ICD-10) EVA NIELSEN GUPTA Active [facility] 12/28/2024 Active Type 1 diabetes mellitus with gastroparesis (HCC) / E10.43(ICD-10) EVA NIELSEN GUPTA Active [facility] 12/28/2024 Active Type 1 diabetes mellitus with gastroparesis (HCC) / K31.84(ICD-10) EVA NIELSEN Active [facility] 12/12/2024 Active Carotid stenosis , asymptomatic, bilateral / I65.23(ICD-10) NA Active [facility] 09/30/2019 Active Mixed hyperlipid emia / E78.2(ICD-10) DARRYN ANDERSON Active [facility] 08/09/2015 Active Insomnia, unspec ified type / G47.00(ICD-10) DARRYN ANDERSON Active [facility] 11/29/2024 Active Thrush / B37.0(ICD-10) DARRYN ANDERSON Ac tive [facility] 10/26/2024 Active Seropositive rheumatoid arthritis (HCC) / M05.9(ICD-10) ALBERTO TROY Active [facility] 10/26/2024 Active Long-term use of Plaquenil / Z79.899(ICD-10) ALBERTO TROY Active [facility] 10/26/2024 Active Osteopenia of ri ght hip / M85.851(ICD-10) ALBERTO TROY Active [facility] 10/26/2024 Active Gastroparesis / K31.84(ICD-10) ALBERTO TROY Active [facility] 10/26/2024 Active Interstitial fabi g disease (HCC) / J84.9(ICD-10) ALBERTO TROY Active [facility] 10/26/2024 Active Pain in both laura ds / M79.641(ICD-10) ALBERTO TROY Active [facility] 10/26/2024 Active Pain in both laura ds / M79.642(ICD-10) ALBERTO TROY Active [facility] 09/20/2024 Active Type 1 Diabetes / UNK(Unknown) EVA NIELSEN [facility] 09/13/2024 Admitting Diagnosis Chronic obstructive pulmonary disease, unspecified / J44.9(ICD-10) OMAYRA CAMARILLO [facility] 01/08/2023 Admitting Diagnosis Pulmonary fibrosis, unspecified / J84.10(ICD-10) OMAYRA CAMARILLO [facility] 05/16/2019 Admitting Diagnosis Unspecified asthma, uncomplicated / J45.909(ICD-10) OMAYRA CAMARILLO [facility] 07/26/2024 Admitting Diagnosis Other disorders of lung / J98.4(ICD-10) OMAYRA CAMARILLO [facility] 04/15/2021 Active Essential hypert ension / I10(ICD-10) DARRYN ANDERSON Active [facility] 10/18/2020 Active Type 1 diabetes mellitus with diabetic neuropathy (HCC) / E10.40(ICD-10) MONICA DARRYN Active [facility] 09/30/2019 Active 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) / E10.649(ICD-10) MONICA DARRYN Active [facility] 09/29/2019 Active Mild intermitten t asthma without complication (HCC) / J45.20(ICD-10) MONICA [facility] Active [facility] 12/06/2018 Active Mild nonprolifer ative diabetic retinopathy of both eyes without macular edema associated with type 1 diabetes mellitus (HCC) / E10.3293(ICD-10) ALYSIALISBETDARRYN Active [facility] 01/16/2015 Active Cerebral infarct ion, unspecified mechanism (HCC) / I63.9(ICD-10) MONICA DARRYN Active [facility] 09/05/2024 Active Medicare annual wellness visit, subsequent / Z00.00(ICD-10) MONICA DARRYN Active [facility] 09/05/2024 Active Weight loss / R63.4(ICD-10) MONICA DARRYN Active [facility] 09/05/2024 Active Acute cough / R05.1(ICD-10) MONICA DARRYN Active [facility] 08/29/2024 Active Community acquir ed pneumonia, unspecified laterality / J18.9(ICD-10) SHOBHA VINES Active [facility] 08/29/2024 Active Bacterial sinusi tis / J32.9(ICD-10) SHOBHA VINES Active [facility] 08/29/2024 Active Bacterial sinusi tis / B96.89(ICD-10) SHOBHA VINES Active [facility] 08/29/2024 Active Seasonal allergi c rhinitis due to other allergic trigger / J30.89(ICD-10) SHOBHA VINES Active [facility] 01/25/2024 Active Shortness of allyson ath / R06.02(ICD-10) SHOBHA, SULTANA Active [facility] 01/25/2024 Active Wheezing / R06.2(ICD-10) OLDERSULTANA Active [facility] 01/25/2024 Active Acute recurrent sinusitis, unspecified location / J01.91(ICD-10) OLDERSULTANA Active [facility] PROCEDURES No Procedure Records Found RESULTS CNPN Observed: 01/02/2025 12:00 AM Status: COMPLETED Source: [facility] Telephone (ENDWST) MCKAYLA RUSSO ([id number]) 1945 F Date Time Provider Department 01/02/25 EVA NIELSEN ENDWSAydin During your visit today, we recorded the following information about you: Manuela Hennessy LPN 01/02/2025 11:53 AM Signed Received call from [employer] requesting office visit. Faxed. Manuela Hennessy LPN Allergies As of Date: 01/02/2025 Noted Allergy Reaction AMITRIPTYLINE 11/09/2012 14 - Other: See Comments Comments: Confusion, falls CYMBALTA (DULOXETINE) 06/07/2015 16 - Unknown DOXYCYCLINE 06/11/2011 8 - GI Upset Comments: headache EPHEDRINE 01/10/2005 14 - Other: See Comments Comments: tachycardia, but pt. states she still uses nose spray IODINE 07/29/2006 9 - Itching Comments: itching after prolonged use ISOLONE FORTE 04/06/2023 7 - Swelling LEVAQUIN (LEVOFLOXACIN) 05/26/2012 14 - Other: See Comments Comments: Achilles tendon problem LYRICA (PREGABALIN) 05/26/2012 14 - Other: See Comments Comments: Dizziness at 225mg twice daily OXYCODONE 01/21/2021 1 - Mental Status Change PERCOCET (OXYCODONE-ACETAMINOPHEN)05/29/2010 16 - Unknown SULFA (SULFONAMIDE ANTIBIOTICS) 01/10/2005 4 - Hives Comments: blisters AGGRENOX (ASPIRIN-DIPYRIDAMOLE) 12/18/2008 14 - Other: See Comments Comments: MIGRAINES AND VOMITING CEPHALEXIN (BULK) 05/12/2008 8 - GI Upset DURICEF (CEFADROXIL) 01/10/2005 4 - Hives NORTRIPTYLINE 02/11/2013 14 - Other: See Comments Comments: vertigo Date Reviewed: 11/29/2024 Reviewed by: Akil Gilbert MA - Fully Assessed 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 Swish/swallow or swish/expectorate - pramipexole (MIRAPEX) 1 mg tablet Take 2 tablets by mouth daily at bedtime. - omeprazole (PRILOSEC) 40 mg capsule Take 40 mg by mouth once daily. - esomeprazole (NEXIUM) 40 mg capsule Take 40 mg by mouth daily before breakfast. - benzonatate (TESSALON PERLE) 100 mg capsule Take 1 capsule by mouth three times a day as needed for cough. - sodium chloride (SALINE MIST) 0.65 % nasal spray Use 1 spray in the nose two times a day. - azelastine 0.1% nasal spray Use 1 spray in each nostril two times a day. - fluticasone (FLONASE) 50 mcg/actuation nasal spray Use 2 sprays in each nostril two times a day. Rinse mouth after use. - okiwgsinvzd-gnoschqvl-pyrvrlyr (TRELEGY ELLIPTA) 100-62.5-25 mcg inhalation powder Inhale 1 puff as instructed once daily. - zolpidem (AMBIEN) 10 mg Take 1 tablet by mouth at bedtime as needed (insomnia) for up to 180 days. - insulin glargine (LANTUS SOLOSTAR U-100 INSULIN) 100 unit/mL (3 mL) Take 51 units once a day when in case of pump failure - clopidogrel (PLAVIX) 75 mg tablet Take 1 tablet by mouth once daily. - losartan (COZAAR) 100 mg tablet Take 1 tablet by mouth once daily. - hydrOXYchloroQUINE (PLAQUENIL) 200 mg tablet Take 1.5 tablets by mouth once daily. - famotidine (PEPCID) 20 mg tablet Take 1 tablet by mouth two times a day. - guaiFENesin (MUCINEX) 600 mg 12 hr tablet Take 1 tablet by mouth two times a day. - Infusion Set for Insulin Pump (TreeveoTRONIC EXT INFUSION SET 23) iset 1 Each one time a week. - amLODIPine (NORVASC) 5 mg tablet Take 1 tablet by mouth once daily. - nystatin (MYCOSTATIN) powder Apply 1 application to affected area three times a day. - atorvastatin (LIPITOR) 40 mg tablet Take 1 tablet by mouth once daily. - neomycin 500 mg tablet Take 1 tablet by mouth every 12 hours. - metoclopramide HCl (REGLAN) 5 mg tablet Take 1 tablet by mouth every 6 hours for 30 days; administer 30 minutes before a meal. - Insulin Syringe-Needle U-100 (BD INSULIN SYRINGE ULTRA-FINE) 1 mL 31 gauge x 5/16 Use 4 syringes daily if insulin pump fails - blood sugar diagnostic (ACCU-CHEK GUIDE TEST STRIPS) test strip Use with blood glucose test upto four times daily - insulin lispro (HUMALOG U-100 INSULIN) 100 unit/mL injection as directed in Insulin pump up to 110 units daily. Dx E10.65 - diclofenac sodium (VOLTAREN ARTHRITIS PAIN TOPICAL) Apply 2 g to affected area as needed (pain). - lidocain-me.ihfqsdi-goot-xrbtp 0.5-20-0.035-5 % ptmd Apply 1 Each to affected area as needed. - traMADol (ULTRAM) 50 mg tablet Take 50 mg by mouth every 6 hours as needed for pain. - albuterol HFA (PROVENTIL HFA, VENTOLIN HFA) 90 mcg/actuation inhaler Inhale 2 Puffs as instructed every 4 hours as needed for wheezing/shortness of breath. - WALKER ROLLATOR SEAT WITH 6 WHEELS - RED For ambulation - nitroglycerin (NITROLINGUAL) 400 mcg/spray spray one every 5 minutes x3 as needed - Bacillus coagulans/inulin (PROBIOTIC WITH PREBIOTIC ORAL) Take 1 capsule by mouth once daily. - aspirin 81 mg chewable tablet Take 1 tablet by mouth once daily. - Cholecalciferol, Vitamin D3, 125 mcg (5,000 unit) cap Take 1 capsule by mouth once daily. - Biotin 1 mg tab Take 1 tablet by mouth once daily. - multivitamin tablet Take 1 tablet by mouth once daily. - acetaminophen (TYLENOL 8 HOUR) 650 mg CR tablet Take 1 tablet by mouth every 8 hours as needed. Problem List As Of Date 01/02/2025 Noted Resolved Hyperlipidemia [E78.5] Hypertension [I10] Coronary artery disease involving [place]* 09/29/2019 Dizziness and Giddiness [R42] 04/30/2009 Postsurgical Percutaneous Transluminal Coronary* 04/30/2009 Mild intermittent asthma without complication [* 09/29/2019 Other psoriasis [L40.8] 09/29/2019 Disorder of bone and cartilage [M89.9, M94.9] 09/29/2019 ESOPHAGITIS [530.1] Diverticulosis of Colon (without Mention of Hem* 04/30/2009 External Hemorrhoids without Mention of Complic* 04/30/2009 Internal Hemorrhoids without Mention of Complic* 04/30/2009 Allergic Rhinitis, Cause Unspecified [J30.9] 01/13/2005 06/25/2015 Ingrowing Nail [L60.0] 03/20/2005 04/30/2009 Pain in Soft Tissues of Limb [M79.609] 03/20/2005 04/30/2009 CARPAL TUNNEL BILATERRAL [M13.149] 08/08/2005 09/29/2019 Nonspecific Abnormal Results of Liver Function *08/08/2005 04/30/2009 OVERWEIGHT [E66.9] 08/08/2005 04/30/2009 Dermatophytosis of Nail [B35.1] 09/04/2005 04/30/2009 Depression [F32.5] 12/18/2005 Anxiety state [F41.1] 12/18/2005 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] 03/23/2006 04/30/2009 Pain in Joint, Shoulder Region [M25.519] 05/22/2006 04/30/2009 Neck Sprain and Strain [S13.9XXA] 05/22/2006 04/30/2009 Onychia and Paronychia of Toe [L03.039] 08/11/2006 04/30/2009 Cellulitis and Abscess of Foot, except Toes [L0*08/24/2006 04/30/2009 Rheumatoid arthritis (HCC) [M06.9] 12/04/2006 Anemia, unspecified [D64.9] 12/04/2006 09/29/2019 Sleep apnea [G47.30] 03/08/2007 Acute Bronchitis [J20.9] 05/18/2008 04/30/2009 Tenosynovitis of Foot and Ankle [M65.979] 06/29/2008 04/30/2009 Vitamin deficiency [E56.9] 04/23/2009 Routine general medical examination at [facility]*04/30/2009 06/25/2015 Class: Chronic Routine gynecological examination [Z01.419] 04/30/2009 06/25/2015 Class: Chronic Diverticulosis of colon [K57.30] 04/30/2009 Cerebral infarction (HCC) [I63.9] 07/16/2009 Pain in joint, lower leg [M25.569] 01/21/2010 06/25/2015 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] 04/25/2010 Restless legs syndrome (RLS) [G25.81] 06/25/2010 Calcifying tendinitis of shoulder [M75.30] 07/09/2010 Venous insufficiency [I87.2] 09/08/2011 Thoracic or lumbosacral neuritis or radiculitis*03/01/2012 09/29/2019 Abnormality of gait [R26.9] 03/01/2012 06/25/2015 Vertigo [R42] 02/02/2013 06/25/2015 Cervicalgia [M54.2] 08/04/2014 Gait abnormality [R26.9] 08/04/2014 BPPV (benign paroxysmal positional vertigo) [H8*02/11/2015 09/29/2019 Obstructive sleep apnea syndrome [G47.33] 06/08/2015 Mixed hyperlipidemia [E78.2] 06/08/2015 GERD (gastroesophageal reflux disease) [K21.9] 08/09/2015 RLS (restless legs syndrome) [G25.81] 08/09/2015 Insomnia [G47.00] 08/09/2015 Vertigo [R42] 08/12/2015 09/29/2019 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/2015 Coronary artery disease [I25.10] 08/29/2015 Mild nonproliferative diabetic retinopathy of b*12/06/2018 Hypoglycemia unawareness in type 1 diabetes emre*01/18/2019 Other dysphagia [R13.19] 07/18/2019 09/29/2019 DKA (diabetic ketoacidoses) (HCC) [E11.10] 09/28/2019 10/18/2020 Asthma [J45.909] 09/29/2019 SHERLYN (acute kidney injury) (HCC) [N17.9] 09/29/2019 09/30/2019 H/O multiple allergies [Z88.9] 06/19/[address] [Z96.41] 07/10/2020 Type 1 diabetes mellitus with mild nonprolifera*10/18/2020 Type 1 diabetes mellitus with diabetic neuropat*10/18/2020 Class 2 severe obesity with serious comorbidity*10/18/2020 09/05/2024 Bilateral carotid artery stenosis [I65.23] 05/10/2021 Encounter Status:Closed by MANUELA HENNESSY on 01/02/25 CAROTID ARTERIES [facility] Observed: 12/12/2024 8:59 AM Status: F Source: [facility]-Invasive [facility] Carotid Duplex Bilateral/Complete Date of service/time: 12/12/2024 8:59:15 AM Name: MRS. MCKAYLA RUSSO Date of : 1945 Age: 79 years Gender: F Clinical Indication Follow-up study on a patient with known carotid disease. TECHNIQUE -------- A carotid duplex ultrasound examination was performed, including grayscale imaging and color Doppler and spectral Doppler examination of the below mentioned arteries. FINDINGS -------- RIGHT SIDE Common carotid artery: Origin: PSV: 107 cm/s. EDV: 12 cm/s. Proximal: PSV: 135 cm/s. EDV: 15 cm/s. Mid: PSV: 137 cm/s. EDV: 14 cm/s. Distal: PSV: 104 cm/s. EDV: 13 cm/s. Internal carotid artery: Origin: PSV: 103 cm/s. EDV: 13 cm/s. Proximal: PSV: 86 cm/s. EDV: 16 cm/s. Mid: PSV: 104 cm/s. EDV: 21 cm/s. Distal: PSV: 108 cm/s. EDV: 22 cm/s. Mild heterogeneous shadowing plaque from origin to proximal. ICA/CCA Ratio: 1.0 External carotid artery: Proximal: PSV: 116 cm/s. EDV: 0 cm/s. Subclavian artery: Proximal: PSV: 229 cm/s. EDV: 0 cm/s. Moderate heterogeneous plaque at proximal. Innominate artery: PSV: 161 cm/s. EDV: 0 cm/s. Vertebral artery: PSV: 54 cm/s. EDV: 8 cm/s. LEFT SIDE Common carotid artery: Proximal: PSV: 137 cm/s. EDV: 17 cm/s. Mid: PSV: 111 cm/s. EDV: 15 cm/s. Distal: PSV: 109 cm/s. EDV: 19 cm/s. Moderate heterogeneous irregular plaque at distal. Internal carotid artery: Origin: PSV: 106 cm/s. EDV: 17 cm/s. Proximal: PSV: 232 cm/s. EDV: 46 cm/s. Mid: PSV: 151 cm/s. EDV: 24 cm/s. Distal: PSV: 105 cm/s. EDV: 23 cm/s. Moderate heterogeneous irregular and shadowing plaque from origin to proximal. ICA/CCA Ratio: 2.1 External carotid artery: Proximal: PSV: 221 cm/s. EDV: 12 cm/s. Moderate heterogeneous irregular plaque from origin to proximal. Subclavian artery: Proximal: PSV: 220 cm/s. EDV: 0 cm/s. Vertebral artery: PSV: 60 cm/s. EDV: 6 cm/s. IMPRESSION Please note: the new carotid interpretation criteria are used as recommended by [employer]. When compared with the prior study, of 11/12/2023 no significant change is noted on the right side and no significant change is noted on the left side. RIGHT SIDE Common carotid artery: Patent. Internal carotid artery: <50% stenosis consistent with mild carotid artery disease. External carotid artery: Patent. Vertebral artery: Patent and antegrade flow noted. Innominate artery: Patent. Subclavian artery: Plaque visualized without evidence of hemodynamically significant stenosis. LEFT SIDE Common carotid artery: Plaque visualized without evidence of hemodynamically significant stenosis. Internal carotid artery: 50-69% stenosis consistent with moderate carotid artery disease. External carotid artery: Elevated velocities and plaque noted. Vertebral artery: Patent and antegrade flow noted. Subclavian artery: Patent. Technologist: Philly Martin RVT Ordering physician: MANUELA ALEMAN Interpreting physician: YVETTE Keith MD Final CC [employer] [facility] Image : [id number] See Link below for Image PROGRESS Observed: 11/30/2024 10:52 AM Status: COMPLETED Source: [facility] HNO ID: [id number] Author: CANDACE ALCARAZ MA Service: ? 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 Type: Progress Notes Filed: 11/30/2024 10:53 Note Text: POPULATION HEALTH NAVIGATION OUTREACH Action/FYI Chart review only Reason for Outreach Care Gap/HCC or Scheduling Wellness Visits Care Gaps due: N/A Patient Contacted: Unable or unnecessary to reach patient: Chart Review only Navigation Signature: Candace Alcaraz MA November 30, 2024 10:52 AM CNPTOUTREACH Observed: 11/30/2024 12:00 AM Status: COMPLETED Source: [facility] Patient Outreach (NETNAV) MCKAYLA RUSSO ([id number]) 1945 F Date Time Provider Department 11/30/24 CANDACE ALCARAZ During your visit today, we recorded the following information about you: Candace Alcaraz MA 11/30/2024 10:53 AM Signed POPULATION HEALTH NAVIGATION OUTREACH Action/FYI Chart review only Reason for Outreach Care Gap/HCC or Scheduling Wellness Visits Care Gaps due: N/A Patient Contacted: Unable or unnecessary to reach patient: Chart Review only Navigation Signature: Candace Alcaraz MA November 30, 2024 10:52 AM Allergies As of Date: 11/30/2024 Noted Allergy Reaction AMITRIPTYLINE 11/09/2012 14 - Other: See Comments Comments: Confusion, falls CYMBALTA (DULOXETINE) 06/07/2015 16 - Unknown DOXYCYCLINE 06/11/2011 8 - GI Upset Comments: headache EPHEDRINE 01/10/2005 14 - Other: See Comments Comments: tachycardia, but pt. states she still uses nose spray IODINE 07/29/2006 9 - Itching Comments: itching after prolonged use ISOLONE FORTE 04/06/2023 7 - Swelling LEVAQUIN (LEVOFLOXACIN) 05/26/2012 14 - Other: See Comments Comments: Achilles tendon problem LYRICA (PREGABALIN) 05/26/2012 14 - Other: See Comments Comments: Dizziness at 225mg twice daily OXYCODONE 01/21/2021 1 - Mental Status Change PERCOCET (OXYCODONE-ACETAMINOPHEN)05/29/2010 16 - Unknown SULFA (SULFONAMIDE ANTIBIOTICS) 01/10/2005 4 - Hives Comments: blisters AGGRENOX (ASPIRIN-DIPYRIDAMOLE) 12/18/2008 14 - Other: See Comments Comments: MIGRAINES AND VOMITING CEPHALEXIN (BULK) 05/12/2008 8 - GI Upset DURICEF (CEFADROXIL) 01/10/2005 4 - Hives NORTRIPTYLINE 02/11/2013 14 - Other: See Comments Comments: vertigo Date Reviewed: 11/29/2024 Reviewed by: Akil Gilbert MA - Fully Assessed Reason for Visit: Population Health Navigation Outreach [3910] Cmt: Victor Hugo/Workbench/ACO Prescriptions as of 11/30/2024 - nystatin (MYCOSTATIN) 100,000 unit/mL suspension 5 mL four times daily. Swish/swallow or swish/expectorate - pramipexole (MIRAPEX) 1 mg tablet Take 2 tablets by mouth daily at bedtime. - omeprazole (PRILOSEC) 40 mg capsule Take 40 mg by mouth once daily. - esomeprazole (NEXIUM) 40 mg capsule Take 40 mg by mouth daily before breakfast. - benzonatate (TESSALON PERLE) 100 mg capsule Take 1 capsule by mouth three times a day as needed for cough. - sodium chloride (SALINE MIST) 0.65 % nasal spray Use 1 spray in the nose two times a day. - azelastine 0.1% nasal spray Use 1 spray in each nostril two times a day. - fluticasone (FLONASE) 50 mcg/actuation nasal spray Use 2 sprays in each nostril two times a day. Rinse mouth after use. - slecxkhapvf-qkjicgpre-lfinxrco (TRELEGY ELLIPTA) 100-62.5-25 mcg inhalation powder Inhale 1 puff as instructed once daily. - zolpidem (AMBIEN) 10 mg Take 1 tablet by mouth at bedtime as needed (insomnia) for up to 180 days. - insulin glargine (LANTUS SOLOSTAR U-100 INSULIN) 100 unit/mL (3 mL) Take 51 units once a day when in case of pump failure - clopidogrel (PLAVIX) 75 mg tablet Take 1 tablet by mouth once daily. - losartan (COZAAR) 100 mg tablet Take 1 tablet by mouth once daily. - hydrOXYchloroQUINE (PLAQUENIL) 200 mg tablet Take 1.5 tablets by mouth once daily. - famotidine (PEPCID) 20 mg tablet Take 1 tablet by mouth two times a day. - guaiFENesin (MUCINEX) 600 mg 12 hr tablet Take 1 tablet by mouth two times a day. - Infusion Set for Insulin Pump (MEDTRONIC EXT INFUSION SET 23) iset 1 Each one time a week. - amLODIPine (NORVASC) 5 mg tablet Take 1 tablet by mouth once daily. - nystatin (MYCOSTATIN) powder Apply 1 application to affected area three times a day. - atorvastatin (LIPITOR) 40 mg tablet Take 1 tablet by mouth once daily. - neomycin 500 mg tablet Take 1 tablet by mouth every 12 hours. - metoclopramide HCl (REGLAN) 5 mg tablet Take 1 tablet by mouth every 6 hours for 30 days; administer 30 minutes before a meal. - Insulin Syringe-Needle U-100 (BD INSULIN SYRINGE ULTRA-FINE) 1 mL 31 gauge x 5/16 Use 4 syringes daily if insulin pump fails - blood sugar diagnostic (ACCU-CHEK GUIDE TEST STRIPS) test strip Use with blood glucose test upto four times daily - insulin lispro (HUMALOG U-100 INSULIN) 100 unit/mL injection as directed in Insulin pump up to 110 units daily. Dx E10.65 - diclofenac sodium (VOLTAREN ARTHRITIS PAIN TOPICAL) Apply 2 g to affected area as needed (pain). - lidocain-me.zgkkalw-rdct-wpbrv 0.5-20-0.035-5 % ptmd Apply 1 Each to affected area as needed. - traMADol (ULTRAM) 50 mg tablet Take 50 mg by mouth every 6 hours as needed for pain. - albuterol HFA (PROVENTIL HFA, VENTOLIN HFA) 90 mcg/actuation inhaler Inhale 2 Puffs as instructed every 4 hours as needed for wheezing/shortness of breath. - WALKER ROLLATOR SEAT WITH 6 WHEELS - RED For ambulation - nitroglycerin (NITROLINGUAL) 400 mcg/spray spray one every 5 minutes x3 as needed - Bacillus coagulans/inulin (PROBIOTIC WITH PREBIOTIC ORAL) Take 1 capsule by mouth once daily. - aspirin 81 mg chewable tablet Take 1 tablet by mouth once daily. - Cholecalciferol, Vitamin D3, 125 mcg (5,000 unit) cap Take 1 capsule by mouth once daily. - Biotin 1 mg tab Take 1 tablet by mouth once daily. - multivitamin tablet Take 1 tablet by mouth once daily. - acetaminophen (TYLENOL 8 HOUR) 650 mg CR tablet Take 1 tablet by mouth every 8 hours as needed. Problem List As Of Date 11/30/2024 Noted Resolved Hyperlipidemia [E78.5] Hypertension [I10] Coronary artery disease involving [place]* 09/29/2019 Dizziness and Giddiness [R42] 04/30/2009 Postsurgical Percutaneous Transluminal Coronary* 04/30/2009 Mild intermittent asthma without complication [* 09/29/2019 Other psoriasis [L40.8] 09/29/2019 Disorder of bone and cartilage [M89.9, M94.9] 09/29/2019 ESOPHAGITIS [530.1] Diverticulosis of Colon (without Mention of Hem* 04/30/2009 External Hemorrhoids without Mention of Complic* 04/30/2009 Internal Hemorrhoids without Mention of Complic* 04/30/2009 Allergic Rhinitis, Cause Unspecified [J30.9] 01/13/2005 06/25/2015 Ingrowing Nail [L60.0] 03/20/2005 04/30/2009 Pain in Soft Tissues of Limb [M79.609] 03/20/2005 04/30/2009 CARPAL TUNNEL BILATERRAL [M13.149] 08/08/2005 09/29/2019 Nonspecific Abnormal Results of Liver Function *08/08/2005 04/30/2009 OVERWEIGHT [E66.9] 08/08/2005 04/30/2009 Dermatophytosis of Nail [B35.1] 09/04/2005 04/30/2009 Depression [F32.5] 12/18/2005 Anxiety state [F41.1] 12/18/2005 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] 03/23/2006 04/30/2009 Pain in Joint, Shoulder Region [M25.519] 05/22/2006 04/30/2009 Neck Sprain and Strain [S13.9XXA] 05/22/2006 04/30/2009 Onychia and Paronychia of Toe [L03.039] 08/11/2006 04/30/2009 Cellulitis and Abscess of Foot, except Toes [L0*08/24/2006 04/30/2009 Rheumatoid arthritis (HCC) [M06.9] 12/04/2006 Anemia, unspecified [D64.9] 12/04/2006 09/29/2019 Sleep apnea [G47.30] 03/08/2007 Acute Bronchitis [J20.9] 05/18/2008 04/30/2009 Tenosynovitis of Foot and Ankle [M65.979] 06/29/2008 04/30/2009 Vitamin deficiency [E56.9] 04/23/2009 Routine general medical examination at [facility]*04/30/2009 06/25/2015 Class: Chronic Routine gynecological examination [Z01.419] 04/30/2009 06/25/2015 Class: Chronic Diverticulosis of colon [K57.30] 04/30/2009 Cerebral infarction (HCC) [I63.9] 07/16/2009 Pain in joint, lower leg [M25.569] 01/21/2010 06/25/2015 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] 04/25/2010 Restless legs syndrome (RLS) [G25.81] 06/25/2010 Calcifying tendinitis of shoulder [M75.30] 07/09/2010 Venous insufficiency [I87.2] 09/08/2011 Thoracic or lumbosacral neuritis or radiculitis*03/01/2012 09/29/2019 Abnormality of gait [R26.9] 03/01/2012 06/25/2015 Vertigo [R42] 02/02/2013 06/25/2015 Cervicalgia [M54.2] 08/04/2014 Gait abnormality [R26.9] 08/04/2014 BPPV (benign paroxysmal positional vertigo) [H8*02/11/2015 09/29/2019 Obstructive sleep apnea syndrome [G47.33] 06/08/2015 Mixed hyperlipidemia [E78.2] 06/08/2015 GERD (gastroesophageal reflux disease) [K21.9] 08/09/2015 RLS (restless legs syndrome) [G25.81] 08/09/2015 Insomnia [G47.00] 08/09/2015 Vertigo [R42] 08/12/2015 09/29/2019 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/2015 Coronary artery disease [I25.10] 08/29/2015 Mild nonproliferative diabetic retinopathy of b*12/06/2018 Hypoglycemia unawareness in type 1 diabetes emre*01/18/2019 Other dysphagia [R13.19] 07/18/2019 09/29/2019 DKA (diabetic ketoacidoses) ([facility]) [E11.10] 09/28/2019 10/18/2020 Asthma [J45.909] 09/29/2019 SHERLYN (acute kidney injury) ([facility]) [N17.9] 09/29/2019 09/30/2019 H/O multiple allergies [Z88.9] 06/19/[address] [Z96.41] 07/10/2020 Type 1 diabetes mellitus with mild nonprolifera*10/18/2020 Type 1 diabetes mellitus with diabetic neuropat*10/18/2020 Class 2 severe obesity with serious comorbidity*10/18/2020 09/05/2024 Bilateral carotid artery stenosis [I65.23] 05/10/2021 Encounter Status:Closed by CANDACE ALCARAZ on 11/30/24 PROGRESS Observed: 11/29/2024 5:38 PM Status: COMPLETED Source: [facility] ID: [id number] Author: DARRYN ANDERSON MD Service: ? Author Type: Physician Type: Progress Notes Filed: 11/29/2024 17:39 Note Text: Reason for Visit Follow up chronic conditions HPI Berkley Russo is a 79-year-old female with a history of osteoarthritis, T2DM, and pulmonary issues, presenting for follow-up. Berkley has been following up with rheumatology and reports recent x-rays of her hands showing osteoarthritis, with no evidence of inflammatory arthritis. She also has been following up with endocrinology and a diabetic nurse for issues with her insulin pump and CGM. She reports a recent incident where her Medtronic pump malfunctioned, and she was unable to reach [facility] customer service for assistance. She eventually resolved the issue herself. Her most recent HbA1c is 6.7%. She denies any issues with her blood pressure at home, attributing any elevations to stress related to her 's upcoming surgery. Berkley reports difficulty with ambulation, using a chair lift to go downstairs and walking through her garage without a rollator. She only uses the rollator when going out. She notes feeling tipsy this morning due to lack of sleep but reports feeling better after resting. She is currently taking Ambien 5 mg at night, having reduced the dose from 10 mg, and hopes to discontinue it by the end of the year. She is also on Trelegy for pulmonary issues and reports a recent episode of dysphonia, initially suspecting thrush. She was evaluated by [facility], where thrush was considered but not confirmed. She denies any changes in taste. Berkley has a history of fatty liver and reports that her liver enzymes are always elevated. She also mentions a recent decrease in her red blood cell count, but states that her hemoglobin is normal. She has an upcoming CT scan with contrast and a vascular appointment on the , which she had to reschedule due to her 's surgery. She follows a restricted diet due to gastroparesis, consuming mainly chicken, peaches, pears, apples, and waffles. SOCIAL HISTORY[1] Past medical history, appointments, medications, allergies reviewed. Pertinent Lab/Diagnostic Studies are reviewed and discussed today Current Outpatient Medications: pramipexole (MIRAPEX) 1 mg tablet sodium chloride (SALINE MIST) 0.65 % nasal spray zolpidem (AMBIEN) 10 mg insulin glargine (LANTUS SOLOSTAR U-100 INSULIN) 100 unit/mL (3 mL) clopidogrel (PLAVIX) 75 mg tablet losartan (COZAAR) 100 mg tablet hydrOXYchloroQUINE (PLAQUENIL) 200 mg tablet Infusion Set for Insulin Pump (MEDTRONIC EXT INFUSION SET 23) iset amLODIPine (NORVASC) 5 mg tablet nystatin (MYCOSTATIN) powder atorvastatin (LIPITOR) 40 mg tablet Insulin Syringe-Needle U-100 (BD INSULIN SYRINGE ULTRA-FINE) 1 mL 31 gauge x 5/16 insulin lispro (HUMALOG U-100 INSULIN) 100 unit/mL injection WALKER ROLLATOR SEAT WITH 6 WHEELS - RED nitroglycerin (NITROLINGUAL) 400 mcg/spray spray Bacillus coagulans/inulin (PROBIOTIC WITH PREBIOTIC ORAL) aspirin 81 mg chewable tablet Cholecalciferol, Vitamin D3, 125 mcg (5,000 unit) cap multivitamin tablet nystatin (MYCOSTATIN) 100,000 unit/mL suspension omeprazole (PRILOSEC) 40 mg capsule esomeprazole (NEXIUM) 40 mg capsule benzonatate (TESSALON PERLE) 100 mg capsule azelastine 0.1% nasal spray fluticasone (FLONASE) 50 mcg/actuation nasal spray bwclroxftpn-pmqccxece-fnhxftgr (TRELEGY ELLIPTA) 100-62.5-25 mcg inhalation powder famotidine (PEPCID) 20 mg tablet guaiFENesin (MUCINEX) 600 mg 12 hr tablet neomycin 500 mg tablet metoclopramide HCl (REGLAN) 5 mg tablet blood sugar diagnostic (ACCU-CHEK GUIDE TEST STRIPS) test strip diclofenac sodium (VOLTAREN ARTHRITIS PAIN TOPICAL) lidocain-me.cuyejie-urxm-irjyn 0.5-20-0.035-5 % ptmd traMADol (ULTRAM) 50 mg tablet albuterol HFA (PROVENTIL HFA, VENTOLIN HFA) 90 mcg/actuation inhaler Biotin 1 mg tab acetaminophen (TYLENOL 8 HOUR) 650 mg CR tablet Health Maintenance There are no preventive care reminders to display for this patient.@ Review Of Systems Constitutional: (+) cold intolerance Ears/Nose/Mouth/Throat: (+) hoarseness, (-) altered taste Neurological: (+) gait instability Psychiatric: (+) insomnia Physical Exam BP 153/64 Pulse (!) 57 Resp 16 Wt 66.5 kg (146 lb 9.6 oz) BMI 26.81 kg/m? GENERAL: NAD, alert and oriented. SKIN: Unremarkable, no rash or skin lesions. HEAD: Normocephalic. EYES: PERRLA, EOMI, conjunctiva clear. EARS: External ears normal, canals clear, TM's normal. NOSE/SINUSES: Nares normal. Septum midline. OROPHARYNX: Lips, mucosa, and tongue normal, good dentition. No oral lesions noted. NECK: Supple, no lymphadenopathy, normal thyroid, no carotid bruits. LUNGS: Clear to auscultation bilaterally, no wheezes/rhonchi/rales. HEART: Regular rate and rhythm, no murmurs. No ectopy. EXTREMITIES: Normal, no deformities, no skin discoloration, no edema. NEURO: Awake, alert and oriented x3, cranial nerves II-XII grossly intact, normal gait, no involuntary motions. Labs: (August) - Hemoglobin A1c: 6.7 - RBC: Within normal limits - Liver enzymes: Mildly elevated Imaging: - X-ray: Findings consistent with osteoarthritis; no evidence of inflammatory changes. Assessment and Plan 1. Essential hypertension (I10) Blood pressure slightly elevated today; likely due to stress related to 's upcoming surgery. Home blood pressure readings reportedly within normal limits. - Recheck blood pressure before the end of the visit. - Continue current antihypertensive regimen. 2. Mixed hyperlipidemia (E78.2) Clinically stable. - Continue current lipid-lowering therapy. 3. Type 1 diabetes mellitus with diabetic neuropathy (HCC) (E10.40) Recent A1c is 6.7%. Patient experiencing issues with Medtronic insulin pump and CGM sensor failures, but resolved independently. Followed by endocrinology and diabetic nurse. - Continue current insulin regimen. - Monitor blood glucose levels closely. - Follow up with endocrinology as scheduled. 4. Insomnia, unspecified type (G47.00) Improved with Ambien 5 mg nightly; patient self-reduced dose from 10 mg. Aims to discontinue by year-end. - Continue Ambien 5 mg nightly. - Gradual tapering plan to discontinue by year-end. 5. Thrush (B37.0) Mild oropharyngeal candidiasis observed on exam. Patient reports no change in taste. - Initiate Nystatin swish and swallow. - Follow up with geospatial specialist as scheduled. Voice recognition software was used to compose this office note. Please excuse any unintended typographical errors. Recording using Mechio software for draft documentation of the visit was discussed with the patient/authorized printing sales representative; all questions welcomed and answered. Patient/authorized printing sales representative agreed to proceed Darryn Anderson MD [1] Social History Tobacco Use Smoking status: Never Smokeless tobacco: Never Vaping Use Vaping status: Never Used Substance Use Topics Alcohol use: No Drug use: No CNOV Observed: 11/29/2024 11:00 AM Status: COMPLETED Source: [facility] Office Visit ([facility]) MCKAYLA RUSSO ([id number]) 1945 F Date Time Provider Department 11/29/24 11:00 AM DARRYN ANDERSON [facility] During your visit today, we recorded the following information about you: Pulse Respiration Blood pressure Weight 57/minute 16/minute 153/64 66.5 kg Darryn Anderson MD 11/29/2024 5:39 PM Signed Reason for Visit Follow up chronic conditions HPI Berkley Russo is a 79-year-old female with a history of osteoarthritis, T2DM, and pulmonary issues, presenting for follow-up. Berkley has been following up with rheumatology and reports recent x-rays of her hands showing osteoarthritis, with no evidence of inflammatory arthritis. She also has been following up with endocrinology and a diabetic nurse for issues with her insulin pump and CGM. She reports a recent incident where her Medtronic pump malfunctioned, and she was unable to reach [facility] customer service for assistance. She eventually resolved the issue herself. Her most recent HbA1c is 6.7%. She denies any issues with her blood pressure at home, attributing any elevations to stress related to her 's upcoming surgery. Berkley reports difficulty with ambulation, using a chair lift to go downstairs and walking through her garage without a rollator. She only uses the rollator when going out. She notes feeling tipsy this morning due to lack of sleep but reports feeling better after resting. She is currently taking Ambien 5 mg at night, having reduced the dose from 10 mg, and hopes to discontinue it by the end of the year. She is also on Trelegy for pulmonary issues and reports a recent episode of dysphonia, initially suspecting thrush. She was evaluated by [facility], where thrush was considered but not confirmed. She denies any changes in taste. Berkley has a history of fatty liver and reports that her liver enzymes are always elevated. She also mentions a recent decrease in her red blood cell count, but states that her hemoglobin is normal. She has an upcoming CT scan with contrast and a vascular appointment on the , which she had to reschedule due to her 's surgery. She follows a restricted diet due to gastroparesis, consuming mainly chicken, peaches, pears, apples, and waffles. SOCIAL HISTORY[1] Past medical history, appointments, medications, allergies reviewed. Pertinent Lab/Diagnostic Studies are reviewed and discussed today Current Outpatient Medications: pramipexole (MIRAPEX) 1 mg tablet sodium chloride (SALINE MIST) 0.65 % nasal spray zolpidem (AMBIEN) 10 mg insulin glargine (LANTUS SOLOSTAR U-100 INSULIN) 100 unit/mL (3 mL) clopidogrel (PLAVIX) 75 mg tablet losartan (COZAAR) 100 mg tablet hydrOXYchloroQUINE (PLAQUENIL) 200 mg tablet Infusion Set for Insulin Pump (MEDTRONIC EXT INFUSION SET 23) iset amLODIPine (NORVASC) 5 mg tablet nystatin (MYCOSTATIN) powder atorvastatin (LIPITOR) 40 mg tablet Insulin Syringe-Needle U-100 (BD INSULIN SYRINGE ULTRA-FINE) 1 mL 31 gauge x 5/16 insulin lispro (HUMALOG U-100 INSULIN) 100 unit/mL injection WALKER ROLLATOR SEAT WITH 6 WHEELS - RED nitroglycerin (NITROLINGUAL) 400 mcg/spray spray Bacillus coagulans/inulin (PROBIOTIC WITH PREBIOTIC ORAL) aspirin 81 mg chewable tablet Cholecalciferol, Vitamin D3, 125 mcg (5,000 unit) cap multivitamin tablet nystatin (MYCOSTATIN) 100,000 unit/mL suspension omeprazole (PRILOSEC) 40 mg capsule esomeprazole (NEXIUM) 40 mg capsule benzonatate (TESSALON PERLE) 100 mg capsule azelastine 0.1% nasal spray fluticasone (FLONASE) 50 mcg/actuation nasal spray pzcktmiixpc-fgslpcmvu-yscblipc (TRELEGY ELLIPTA) 100-62.5-25 mcg inhalation powder famotidine (PEPCID) 20 mg tablet guaiFENesin (MUCINEX) 600 mg 12 hr tablet neomycin 500 mg tablet metoclopramide HCl (REGLAN) 5 mg tablet blood sugar diagnostic (ACCU-CHEK GUIDE TEST STRIPS) test strip diclofenac sodium (VOLTAREN ARTHRITIS PAIN TOPICAL) lidocain-me.mpeviqh-uxfx-bsggl 0.5-20-0.035-5 % ptmd traMADol (ULTRAM) 50 mg tablet albuterol HFA (PROVENTIL HFA, VENTOLIN HFA) 90 mcg/actuation inhaler Biotin 1 mg tab acetaminophen (TYLENOL 8 HOUR) 650 mg CR tablet Health Maintenance There are no preventive care reminders to display for this patient.@ Review Of Systems Constitutional: (+) cold intolerance Ears/Nose/Mouth/Throat: (+) hoarseness, (-) altered taste Neurological: (+) gait instability Psychiatric: (+) insomnia Physical Exam BP 153/64 Pulse (!) 57 Resp 16 Wt 66.5 kg (146 lb 9.6 oz) BMI 26.81 kg/m? GENERAL: NAD, alert and oriented. SKIN: Unremarkable, no rash or skin lesions. HEAD: Normocephalic. EYES: PERRLA, EOMI, conjunctiva clear. EARS: External ears normal, canals clear, TM's normal. NOSE/SINUSES: Nares normal. Septum midline. OROPHARYNX: Lips, mucosa, and tongue normal, good dentition. No oral lesions noted. NECK: Supple, no lymphadenopathy, normal thyroid, no carotid bruits. LUNGS: Clear to auscultation bilaterally, no wheezes/rhonchi/rales. HEART: Regular rate and rhythm, no murmurs. No ectopy. EXTREMITIES: Normal, no deformities, no skin discoloration, no edema. NEURO: Awake, alert and oriented x3, cranial nerves II-XII grossly intact, normal gait, no involuntary motions. Labs: (August) - Hemoglobin A1c: 6.7 - RBC: Within normal limits - Liver enzymes: Mildly elevated Imaging: - X-ray: Findings consistent with osteoarthritis; no evidence of inflammatory changes. Assessment and Plan 1. Essential hypertension (I10) Blood pressure slightly elevated today; likely due to stress related to 's upcoming surgery. Home blood pressure readings reportedly within normal limits. - Recheck blood pressure before the end of the visit. - Continue current antihypertensive regimen. 2. Mixed hyperlipidemia (E78.2) Clinically stable. - Continue current lipid-lowering therapy. 3. Type 1 diabetes mellitus with diabetic neuropathy (HCC) (E10.40) Recent A1c is 6.7%. Patient experiencing issues with Medtronic insulin pump and CGM sensor failures, but resolved independently. Followed by endocrinology and diabetic nurse. - Continue current insulin regimen. - Monitor blood glucose levels closely. - Follow up with endocrinology as scheduled. 4. Insomnia, unspecified type (G47.00) Improved with Ambien 5 mg nightly; patient self-reduced dose from 10 mg. Aims to discontinue by year-end. - Continue Ambien 5 mg nightly. - Gradual tapering plan to discontinue by year-end. 5. Thrush (B37.0) Mild oropharyngeal candidiasis observed on exam. Patient reports no change in taste. - Initiate Nystatin swish and swallow. - Follow up with geospatial specialist as scheduled. Voice recognition software was used to compose this office note. Please excuse any unintended typographical errors. Recording using Me[employer] software for draft documentation of the visit was discussed with the patient/authorized printing sales representative; all questions welcomed and answered. Patient/authorized printing sales representative agreed to proceed Darryn Anderson MD [1] Social History Tobacco Use Smoking status: Never Smokeless tobacco: Never Vaping Use Vaping status: Never Used Substance Use Topics Alcohol use: No Drug use: No Allergies As of Date: 11/29/2024 Noted Allergy Reaction AMITRIPTYLINE 11/09/2012 14 - Other: See Comments Comments: Confusion, falls CYMBALTA (DULOXETINE) 06/07/2015 16 - Unknown DOXYCYCLINE 06/11/2011 8 - GI Upset Comments: headache EPHEDRINE 01/10/2005 14 - Other: See Comments Comments: tachycardia, but pt. states she still uses nose spray IODINE 07/29/2006 9 - Itching Comments: itching after prolonged use ISOLONE FORTE 04/06/2023 7 - Swelling LEVAQUIN (LEVOFLOXACIN) 05/26/2012 14 - Other: See Comments Comments: Achilles tendon problem LYRICA (PREGABALIN) 05/26/2012 14 - Other: See Comments Comments: Dizziness at 225mg twice daily OXYCODONE 01/21/2021 1 - Mental Status Change PERCOCET (OXYCODONE-ACETAMINOPHEN)05/29/2010 16 - Unknown SULFA (SULFONAMIDE ANTIBIOTICS) 01/10/2005 4 - Hives Comments: blisters AGGRENOX (ASPIRIN-DIPYRIDAMOLE) 12/18/2008 14 - Other: See Comments Comments: MIGRAINES AND VOMITING CEPHALEXIN (BULK) 05/12/2008 8 - GI Upset DURICEF (CEFADROXIL) 01/10/2005 4 - Hives NORTRIPTYLINE 02/11/2013 14 - Other: See Comments Comments: vertigo Date Reviewed: 11/29/2024 Reviewed by: Akil Gilbert MA - Fully Assessed Reason for Visit: F/U 3 Month [443] Primary Visit Diagnosis:Hypertension [I10] Other Visit Diagnoses:Mixed hyperlipidemia [E78.2] Type 1 diabetes mellitus with diabetic neuropathy (HCC) [E10.40] Insomnia, unspecified type [G47.00] Thrush [B37.0] Order(s):nystatin (MYCOSTATIN) 100,000 unit/mL suspension5 mL four times daily. Swish/swallow or swish/expectorateDisp: 200 mLRfl: 0 Prescriptions as of 11/29/2024 - nystatin (MYCOSTATIN) 100,000 unit/mL suspension 5 mL four times daily. Swish/swallow or swish/expectorate - pramipexole (MIRAPEX) 1 mg tablet Take 2 tablets by mouth daily at bedtime. - omeprazole (PRILOSEC) 40 mg capsule Take 40 mg by mouth once daily. - esomeprazole (NEXIUM) 40 mg capsule Take 40 mg by mouth daily before breakfast. - benzonatate (TESSALON PERLE) 100 mg capsule Take 1 capsule by mouth three times a day as needed for cough. - sodium chloride (SALINE MIST) 0.65 % nasal spray Use 1 spray in the nose two times a day. - azelastine 0.1% nasal spray Use 1 spray in each nostril two times a day. - fluticasone (FLONASE) 50 mcg/actuation nasal spray Use 2 sprays in each nostril two times a day. Rinse mouth after use. - bznkwurgfjl-eomueooob-puyqgozq (TRELEGY ELLIPTA) 100-62.5-25 mcg inhalation powder Inhale 1 puff as instructed once daily. - zolpidem (AMBIEN) 10 mg Take 1 tablet by mouth at bedtime as needed (insomnia) for up to 180 days. - insulin glargine (LANTUS SOLOSTAR U-100 INSULIN) 100 unit/mL (3 mL) Take 51 units once a day when in case of pump failure - clopidogrel (PLAVIX) 75 mg tablet Take 1 tablet by mouth once daily. - losartan (COZAAR) 100 mg tablet Take 1 tablet by mouth once daily. - hydrOXYchloroQUINE (PLAQUENIL) 200 mg tablet Take 1.5 tablets by mouth once daily. - famotidine (PEPCID) 20 mg tablet Take 1 tablet by mouth two times a day. - guaiFENesin (MUCINEX) 600 mg 12 hr tablet Take 1 tablet by mouth two times a day. - Infusion Set for Insulin Pump (MEDTRONIC EXT INFUSION SET 23) iset 1 Each one time a week. - amLODIPine (NORVASC) 5 mg tablet Take 1 tablet by mouth once daily. - nystatin (MYCOSTATIN) powder Apply 1 application to affected area three times a day. - atorvastatin (LIPITOR) 40 mg tablet Take 1 tablet by mouth once daily. - neomycin 500 mg tablet Take 1 tablet by mouth every 12 hours. - metoclopramide HCl (REGLAN) 5 mg tablet Take 1 tablet by mouth every 6 hours for 30 days; administer 30 minutes before a meal. - Insulin Syringe-Needle U-100 (BD INSULIN SYRINGE ULTRA-FINE) 1 mL 31 gauge x 5/16 Use 4 syringes daily if insulin pump fails - blood sugar diagnostic (ACCU-CHEK GUIDE TEST STRIPS) test strip Use with blood glucose test upto four times daily - insulin lispro (HUMALOG U-100 INSULIN) 100 unit/mL injection as directed in Insulin pump up to 110 units daily. Dx E10.65 - diclofenac sodium (VOLTAREN ARTHRITIS PAIN TOPICAL) Apply 2 g to affected area as needed (pain). - lidocain-me.ihygkug-ionx-pusga 0.5-20-0.035-5 % ptmd Apply 1 Each to affected area as needed. - traMADol (ULTRAM) 50 mg tablet Take 50 mg by mouth every 6 hours as needed for pain. - albuterol HFA (PROVENTIL HFA, VENTOLIN HFA) 90 mcg/actuation inhaler Inhale 2 Puffs as instructed every 4 hours as needed for wheezing/shortness of breath. - WALKER ROLLATOR SEAT WITH 6 WHEELS - RED For ambulation - nitroglycerin (NITROLINGUAL) 400 mcg/spray spray one every 5 minutes x3 as needed - Bacillus coagulans/inulin (PROBIOTIC WITH PREBIOTIC ORAL) Take 1 capsule by mouth once daily. - aspirin 81 mg chewable tablet Take 1 tablet by mouth once daily. - Cholecalciferol, Vitamin D3, 125 mcg (5,000 unit) cap Take 1 capsule by mouth once daily. - Biotin 1 mg tab Take 1 tablet by mouth once daily. - multivitamin tablet Take 1 tablet by mouth once daily. - acetaminophen (TYLENOL 8 HOUR) 650 mg CR tablet Take 1 tablet by mouth every 8 hours as needed. Problem List As Of Date 11/29/2024 Noted Resolved Hyperlipidemia [E78.5] Hypertension [I10] Coronary artery disease involving [place] p[place]* 09/29/2019 Dizziness and Giddiness [R42] 04/30/2009 Postsurgical Percutaneous Transluminal Coronary* 04/30/2009 Mild intermittent asthma without complication [* 09/29/2019 Other psoriasis [L40.8] 09/29/2019 Disorder of bone and cartilage [M89.9, M94.9] 09/29/2019 ESOPHAGITIS [530.1] Diverticulosis of Colon (without Mention of Hem* 04/30/2009 External Hemorrhoids without Mention of Complic* 04/30/2009 Internal Hemorrhoids without Mention of Complic* 04/30/2009 Allergic Rhinitis, Cause Unspecified [J30.9] 01/13/2005 06/25/2015 Ingrowing Nail [L60.0] 03/20/2005 04/30/2009 Pain in Soft Tissues of Limb [M79.609] 03/20/2005 04/30/2009 CARPAL TUNNEL BILATERRAL [M13.149] 08/08/2005 09/29/2019 Nonspecific Abnormal Results of Liver Function *08/08/2005 04/30/2009 OVERWEIGHT [E66.9] 08/08/2005 04/30/2009 Dermatophytosis of Nail [B35.1] 09/04/2005 04/30/2009 Depression [F32.5] 12/18/2005 Anxiety state [F41.1] 12/18/2005 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] 03/23/2006 04/30/2009 Pain in Joint, Shoulder Region [M25.519] 05/22/2006 04/30/2009 Neck Sprain and Strain [S13.9XXA] 05/22/2006 04/30/2009 Onychia and Paronychia of Toe [L03.039] 08/11/2006 04/30/2009 Cellulitis and Abscess of Foot, except Toes [L0*08/24/2006 04/30/2009 Rheumatoid arthritis (HCC) [M06.9] 12/04/2006 Anemia, unspecified [D64.9] 12/04/2006 09/29/2019 Sleep apnea [G47.30] 03/08/2007 Acute Bronchitis [J20.9] 05/18/2008 04/30/2009 Tenosynovitis of Foot and Ankle [M65.979] 06/29/2008 04/30/2009 Vitamin deficiency [E56.9] 04/23/2009 Routine general medical examination at [facility]*04/30/2009 06/25/2015 Class: Chronic Routine gynecological examination [Z01.419] 04/30/2009 06/25/2015 Class: Chronic Diverticulosis of colon [K57.30] 04/30/2009 Cerebral infarction (HCC) [I63.9] 07/16/2009 Pain in joint, lower leg [M25.569] 01/21/2010 06/25/2015 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] 04/25/2010 Restless legs syndrome (RLS) [G25.81] 06/25/2010 Calcifying tendinitis of shoulder [M75.30] 07/09/2010 Venous insufficiency [I87.2] 09/08/2011 Thoracic or lumbosacral neuritis or radiculitis*03/01/2012 09/29/2019 Abnormality of gait [R26.9] 03/01/2012 06/25/2015 Vertigo [R42] 02/02/2013 06/25/2015 Cervicalgia [M54.2] 08/04/2014 Gait abnormality [R26.9] 08/04/2014 BPPV (benign paroxysmal positional vertigo) [H8*02/11/2015 09/29/2019 Obstructive sleep apnea syndrome [G47.33] 06/08/2015 Mixed hyperlipidemia [E78.2] 06/08/2015 GERD (gastroesophageal reflux disease) [K21.9] 08/09/2015 RLS (restless legs syndrome) [G25.81] 08/09/2015 Insomnia [G47.00] 08/09/2015 Vertigo [R42] 08/12/2015 09/29/2019 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/2015 Coronary artery disease [I25.10] 08/29/2015 Mild nonproliferative diabetic retinopathy of b*12/06/2018 Hypoglycemia unawareness in type 1 diabetes emre*01/18/2019 Other dysphagia [R13.19] 07/18/2019 09/29/2019 DKA (diabetic ketoacidoses) (FORM[facility]) [E11.10] 09/28/2019 10/18/2020 Asthma [J45.909] 09/29/2019 SHERLYN (acute kidney injury) ([facility]) [N17.9] 09/29/2019 09/30/2019 H/O multiple allergies [Z88.9] 06/19/[address] [Z96.41] 07/10/2020 Type 1 diabetes mellitus with mild nonprolifera*10/18/2020 Type 1 diabetes mellitus with diabetic neuropat*10/18/2020 Class 2 severe obesity with serious comorbidity*10/18/2020 09/05/2024 Bilateral carotid artery stenosis [I65.23] 05/10/2021 Prescriptions ordered this encounter Disp Refills Start End NYSTATIN 100,000 UNIT/ML ORAL SUSPEN* 200 * 0 11/29/2024 Route: OTH Si mL four times daily. Swish/swallow or swish/expectorate Level of Service: OFFICE/OUTPATIENT ESTABLISHED MOD MDM 30 MIN [22051] Additional E/M codes: VISIT CPLX INHERENT EANDM ASSOC WITH MED * Letter Text Encounter Status:Closed by DARRYN ANDERSON on 8/12/25 CBC W AUTO DIFF BLD Collected: 11/25/2024 8:[address] atus: F Source: [facility] Order Comment: Specimen Type : BLOOD SPECIMEN Ordering Facility: [facility] Address: [place] [id number] TYPE CODE TESTS RESULT OUT OF RANGE REFERENCE UNITS LAB 6690-2([facility]) WBC # Bld Auto 5.79 3.70-11.00 k/uL LAB 789-8([facility]) RBC # Bld Auto 3.62 Low 3.90-5.20 m/ uL LAB 718-7([facility]) Hgb Bld-mCnc 12.1 11.5-15.5 g/dL LAB 4544-3([facility]) Hct VFr Bld Auto 35.3 Low 36.0-46.0 % LAB 787-2([facility]) MCV RBC Auto 97.5 80.0-100.0 fL LAB 785-6([facility]) MCH RBC Qn Auto 33.4 26.0-34.0 p g LAB 786-4([facility]) MCHC RBC Auto-mCnc 34.3 30.5-36.0 g/dL LAB 54687-4([facility]) RDW RBC-Rto 13.2 11.5-15.0 % LAB 777-3([facility]) Platelet # Bld Auto 217 150-400 k/uL LAB 08287-7([facility]) PMV Bld Auto 11.8 9.0-12.7 fL LAB 770-8([facility]) Neutrophils/leuk NFr Bld Auto 54.9 % LAB 751-8([facility]) Neutrophils # Bld Auto 3.18 1.45-7.50 k/uL LAB 736-9([facility]) Lymphocytes/leuk NFr Bld Auto 29.4 % LAB 731-0([facility]) Lymphocytes # Bld Auto 1.70 1.00-4.00 k/uL LAB 5905-5([facility]) Monocytes/leuk NFr Bld Auto 12.4 % LAB 742-7([facility]) Monocytes # Bld Auto 0.72 <0.87 k/uL LAB 713-8([facility]) Eosinophil/leuk NFr Bld Auto 2.6 % LAB 711-2(LOINC) Eosinophil # Bld Auto 0.15 <0.46 k/uL LAB 706-2(LOINC) Basophils/leuk NFr Bld Auto 0.5 % LAB 704-7(LOINC) Basophils # Bld Auto 0.03 <0.11 k/uL LAB 09607-9(LOINC) Imm Granulocytes/moiz k NFr Bld Auto 0.2 % LAB 19401-2(LOINC) Imm Granulocytes # Bld Auto <0.03 <0.10 k/uL LAB 99209-3(LOINC) nRBC/100 WBC Bld-Rto 0.0 /100 WBC LAB 771-6(LOINC) nRBC # Bld Auto <0.01 <0.01 k/u L LAB 44099-5(LOINC) Differential method Bld Auto Performed By: #### [id number] # ### [facility] CLIA [id number] [address] [place] [address] CNPN Observed: 11/14/2024 12:00 AM Status: COMPLETED Source: [facility] Telephone (ENDWST) MCKAYLA RUSSO ([id number]) 1945 F Date Time Provider Department 11/14/24 EVA NIELSEN ENDWST During your visit today, we recorded the following information about you: Manuela Hennessy LPN 11/14/2024 10:08 AM Signed Patient calling in stating her sensor is saying sensor failure. She is not sure what to do. She did try to call [employer] but there were 4 people ahead of her but she said that could take up to 2 hour wait and her has an appt she has to go to. She is requesting a callback. ELA Sanchez Brittney, RN 11/14/2024 3:48 PM Signed Pt uses Guardian 4 sensors with her Medtronic insulin pump. She will need to reach out to the company directly for any troubleshooting assistance. Magalys Mera RN November 14, 2024 3:48 PM Allergies As of Date: 11/14/2024 Noted Allergy Reaction AMITRIPTYLINE 11/09/2012 14 - Other: See Comments Comments: Confusion, falls CYMBALTA (DULOXETINE) 06/07/2015 16 - Unknown DOXYCYCLINE 06/11/2011 8 - GI Upset Comments: headache EPHEDRINE 01/10/2005 14 - Other: See Comments Comments: tachycardia, but pt. states she still uses nose spray IODINE 07/29/2006 9 - Itching Comments: itching after prolonged use ISOLONE FORTE 04/06/2023 7 - Swelling LEVAQUIN (LEVOFLOXACIN) 05/26/2012 14 - Other: See Comments Comments: Achilles tendon problem LYRICA (PREGABALIN) 05/26/2012 14 - Other: See Comments Comments: Dizziness at 225mg twice daily OXYCODONE 01/21/2021 1 - Mental Status Change PERCOCET (OXYCODONE-ACETAMINOPHEN)05/29/2010 16 - Unknown SULFA (SULFONAMIDE ANTIBIOTICS) 01/10/2005 4 - Hives Comments: blisters AGGRENOX (ASPIRIN-DIPYRIDAMOLE) 12/18/2008 14 - Other: See Comments Comments: MIGRAINES AND VOMITING CEPHALEXIN (BULK) 05/12/2008 8 - GI Upset DURICEF (CEFADROXIL) 01/10/2005 4 - Hives NORTRIPTYLINE 02/11/2013 14 - Other: See Comments Comments: vertigo Date Reviewed: 11/06/2024 Reviewed by: Jonas Red APRN.[employer] - Fully Assessed Prescriptions as of 11/14/2024 - omeprazole (PRILOSEC) 40 mg capsule Take 40 mg by mouth once daily. - esomeprazole (NEXIUM) 40 mg capsule Take 40 mg by mouth daily before breakfast. - benzonatate (TESSALON PERLE) 100 mg capsule Take 1 capsule by mouth three times a day as needed for cough. - sodium chloride (SALINE MIST) 0.65 % nasal spray Use 1 spray in the nose two times a day. - azelastine 0.1% nasal spray Use 1 spray in each nostril two times a day. - fluticasone (FLONASE) 50 mcg/actuation nasal spray Use 2 sprays in each nostril two times a day. Rinse mouth after use. - uqbzvezudjk-ovksmqftj-tgpuuuvi (TRELEGY ELLIPTA) 100-62.5-25 mcg inhalation powder Inhale 1 puff as instructed once daily. - zolpidem (AMBIEN) 10 mg Take 1 tablet by mouth at bedtime as needed (insomnia) for up to 180 days. - insulin glargine (LANTUS SOLOSTAR U-100 INSULIN) 100 unit/mL (3 mL) Take 51 units once a day when in case of pump failure - clopidogrel (PLAVIX) 75 mg tablet Take 1 tablet by mouth once daily. - losartan (COZAAR) 100 mg tablet Take 1 tablet by mouth once daily. - hydrOXYchloroQUINE (PLAQUENIL) 200 mg tablet Take 1.5 tablets by mouth once daily. - pramipexole (MIRAPEX) 1 mg tablet Take 2 tablets by mouth daily at bedtime. - famotidine (PEPCID) 20 mg tablet Take 1 tablet by mouth two times a day. - guaiFENesin (MUCINEX) 600 mg 12 hr tablet Take 1 tablet by mouth two times a day. - Infusion Set for Insulin Pump (TreeveoTRONIC EXT INFUSION SET 23) iset 1 Each one time a week. - amLODIPine (NORVASC) 5 mg tablet Take 1 tablet by mouth once daily. - nystatin (MYCOSTATIN) powder Apply 1 application to affected area three times a day. - atorvastatin (LIPITOR) 40 mg tablet Take 1 tablet by mouth once daily. - neomycin 500 mg tablet Take 1 tablet by mouth every 12 hours. - metoclopramide HCl (REGLAN) 5 mg tablet Take 1 tablet by mouth every 6 hours for 30 days; administer 30 minutes before a meal. - Insulin Syringe-Needle U-100 (BD INSULIN SYRINGE ULTRA-FINE) 1 mL 31 gauge x 516 Use 4 syringes daily if insulin pump fails - blood sugar diagnostic (ACCU-CHEK GUIDE TEST STRIPS) test strip Use with blood glucose test upto four times daily - insulin lispro (HUMALOG U-100 INSULIN) 100 unit/mL injection as directed in Insulin pump up to 110 units daily. Dx E10.65 - diclofenac sodium (VOLTAREN ARTHRITIS PAIN TOPICAL) Apply 2 g to affected area as needed (pain). - lidocain-me.sujqvgo-uxfh-ntbnh 0.5-20-0.035-5 % ptmd Apply 1 Each to affected area as needed. - traMADol (ULTRAM) 50 mg tablet Take 50 mg by mouth every 6 hours as needed for pain. - albuterol HFA (PROVENTIL HFA, VENTOLIN HFA) 90 mcg/actuation inhaler Inhale 2 Puffs as instructed every 4 hours as needed for wheezing/shortness of breath. - WALKER ROLLATOR SEAT WITH 6 WHEELS - RED For ambulation - nitroglycerin (NITROLINGUAL) 400 mcg/spray spray one every 5 minutes x3 as needed - Bacillus coagulans/inulin (PROBIOTIC WITH PREBIOTIC ORAL) Take 1 capsule by mouth once daily. - aspirin 81 mg chewable tablet Take 1 tablet by mouth once daily. - Cholecalciferol, Vitamin D3, 125 mcg (5,000 unit) cap Take 1 capsule by mouth once daily. - Biotin 1 mg tab Take 1 tablet by mouth once daily. - multivitamin tablet Take 1 tablet by mouth once daily. - acetaminophen (TYLENOL 8 HOUR) 650 mg CR tablet Take 1 tablet by mouth every 8 hours as needed. Problem List As Of Date 11/14/2024 Noted Resolved Hyperlipidemia [E78.5] Hypertension [I10] Coronary artery disease involving [place]* 09/29/2019 Dizziness and Giddiness [R42] 04/30/2009 Postsurgical Percutaneous Transluminal Coronary* 04/30/2009 Mild intermittent asthma without complication [* 09/29/2019 Other psoriasis [L40.8] 09/29/2019 Disorder of bone and cartilage [M89.9, M94.9] 09/29/2019 ESOPHAGITIS [530.1] Diverticulosis of Colon (without Mention of Hem* 04/30/2009 External Hemorrhoids without Mention of Complic* 04/30/2009 Internal Hemorrhoids without Mention of Complic* 04/30/2009 Allergic Rhinitis, Cause Unspecified [J30.9] 01/13/2005 06/25/2015 Ingrowing Nail [L60.0] 03/20/2005 04/30/2009 Pain in Soft Tissues of Limb [M79.609] 03/20/2005 04/30/2009 CARPAL TUNNEL BILATERRAL [M13.149] 08/08/2005 09/29/2019 Nonspecific Abnormal Results of Liver Function *08/08/2005 04/30/2009 OVERWEIGHT [E66.9] 08/08/2005 04/30/2009 Dermatophytosis of Nail [B35.1] 09/04/2005 04/30/2009 Depression [F32.5] 12/18/2005 Anxiety state [F41.1] 12/18/2005 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] 03/23/2006 04/30/2009 Pain in Joint, Shoulder Region [M25.519] 05/22/2006 04/30/2009 Neck Sprain and Strain [S13.9XXA] 05/22/2006 04/30/2009 Onychia and Paronychia of Toe [L03.039] 08/11/2006 04/30/2009 Cellulitis and Abscess of Foot, except Toes [L0*08/24/2006 04/30/2009 Rheumatoid arthritis (HCC) [M06.9] 12/04/2006 Anemia, unspecified [D64.9] 12/04/2006 09/29/2019 Sleep apnea [G47.30] 03/08/2007 Acute Bronchitis [J20.9] 05/18/2008 04/30/2009 Tenosynovitis of Foot and Ankle [M65.979] 06/29/2008 04/30/2009 Vitamin deficiency [E56.9] 04/23/2009 Routine general medical examination at [facility]*04/30/2009 06/25/2015 Class: Chronic Routine gynecological examination [Z01.419] 04/30/2009 06/25/2015 Class: Chronic Diverticulosis of colon [K57.30] 04/30/2009 Cerebral infarction (HCC) [I63.9] 07/16/2009 Pain in joint, lower leg [M25.569] 01/21/2010 06/25/2015 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] 04/25/2010 Restless legs syndrome (RLS) [G25.81] 06/25/2010 Calcifying tendinitis of shoulder [M75.30] 07/09/2010 Venous insufficiency [I87.2] 09/08/2011 Thoracic or lumbosacral neuritis or radiculitis*03/01/2012 09/29/2019 Abnormality of gait [R26.9] 03/01/2012 06/25/2015 Vertigo [R42] 02/02/2013 06/25/2015 Cervicalgia [M54.2] 08/04/2014 Gait abnormality [R26.9] 08/04/2014 BPPV (benign paroxysmal positional vertigo) [H8*02/11/2015 09/29/2019 Obstructive sleep apnea syndrome [G47.33] 06/08/2015 Mixed hyperlipidemia [E78.2] 06/08/2015 GERD (gastroesophageal reflux disease) [K21.9] 08/09/2015 RLS (restless legs syndrome) [G25.81] 08/09/2015 Insomnia [G47.00] 08/09/2015 Vertigo [R42] 08/12/2015 09/29/2019 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/2015 Coronary artery disease [I25.10] 08/29/2015 Mild nonproliferative diabetic retinopathy of b*12/06/2018 Hypoglycemia unawareness in type 1 diabetes emre*01/18/2019 Other dysphagia [R13.19] 07/18/2019 09/29/2019 DKA (diabetic ketoacidoses) (HCC) [E11.10] 09/28/2019 10/18/2020 Asthma [J45.909] 09/29/2019 SHERLYN (acute kidney injury) (HCC) [N17.9] 09/29/2019 09/30/2019 H/O multiple allergies [Z88.9] 06/19/[address] [Z96.41] 07/10/2020 Type 1 diabetes mellitus with mild nonprolifera*10/18/2020 Type 1 diabetes mellitus with diabetic neuropat*10/18/2020 Class 2 severe obesity with serious comorbidity*10/18/2020 09/05/2024 Bilateral carotid artery stenosis [I65.23] 05/10/2021 Encounter Status:Closed by MAGALYS MERA on 11/14/24 XR HAND 3V PA/LAT/OBL OMAR Observed: 10/19 9:37 AM Status: F Source: [facility] * * *Final Report* * * DATE OF EXAM: Nov 10 2024 9:37AM WRX [id number] - XR HAND 3V PA/LAT/OBL OMAR / PROCEDURE REASON: multiple diagnoses * * * * Physician Interpretation * * * * EXAMINATION: XR HAND 3V PA/LAT/OBL OMAR HISTORY: PT STATES HISTORY OF RA Seropositive rheumatoid arthritis (HCC) Pain in both hands Pain in both hands . TECHNIQUE: XR HAND 3V PA/LAT/OBL OMAR Laterality: BILATERAL Number of different views (projections): 3 M: XB_1 COMPARISON: 05/19/2019 RESULT: Mild interphalangeal degenerative changes of the fingers and thumbs and mild first CMC degenerative change bilaterally. Vascular calcifications of the hands and wrists. No acute fracture or dislocation. There are no bony erosions. IMPRESSION: No radiographic findings of inflammatory arthropathy. Rolfer: PSCB Transcribe Date/Time: Nov 15 2024 5:08P Dictated by : OMAYRA REDDY MD This examination was interpreted and the report reviewed and electronically signed by: OMAYRA REDDY MD on Nov 15 2024 5:09PM EST [id number] PROGRESS Observed: 11/10/2024 9:30 AM Status: COMPLETED Source: [facility] ID: [id number] Author: TIFFANIE LARA RT(R) Service: ? Author Type: Technologist Type: Progress Notes Filed: 11/10/2024 10:03 Note Text: Radiology Service Progress Note PATIENT NAME: Mckayla Russo DATE OF SERVICE: November 10, 2024 TIME: 9:59 AM PATIENT IDENTITY VERIFICATION COMPLETED USING TWO [...] Increased Observations by Caregivers PATIENT GENDER DATA: Assigned female at . status: : No status: NO. PATIENT RELEVANT IMPLANT DATA REVIEWED: Not Applicable PATIENT PRESENTS WITH AN IMPLANTABLE OR ATTACHED AUTOMOTIVE DISMANTLER: Yes Freestyle Xander, INSULIN PUMP REMOVED DURING EXAM RADIOLOGY DEPARTMENT: General X-ray: Exam(s) Completed: Upper Extremity X-Ray(s): Hand, bilateral PERIPHERAL IV DATA: Not applicable SIGNED BY: Tiffanie Lara RT(R) November 10, 2024 9:59 AM PROGRESS Observed: 11/06/2024 10:44 AM Status: COMPLETED Source: [facility] HNO ID: [id number] Author: JONAS RED APRN.[employer] [facility] Service: ? Author Type: Nurse Practitioner Type: Progress Notes Filed: 11/06/2024 10:55 Note Text: Subjective HPI Nontoxic-appearing 79-year-old female presents urgent care chief complaint possible thrush. Duration of symptoms last few days. Associated symptoms possible thrush. Concern due to inhaled corticosteroid use. OTC medications none. No pain. No difficulty swallowing inspiration decreased range of motion of neck or trismus. .Patient presents with: Mouth/Lip Problem: Possible thrush PAST MEDICAL HISTORY Diagnosis Date Abnormal mammogram, unspecified left breast BPPV (benign paroxysmal positional vertigo) 02/11/2015 BPV (benign positional vertigo) CAD (coronary artery disease) Carotid stenosis CARPAL TUNNEL BILATERRAL 08/08/2005 Coronary artery disease involving [place] coronary artery Dr. Pederson follows regularly; S/P PTCA and stenting at [facility], 2001 Coronary atherosclerosis of unspecified type of vessel, [place] or graft Disorder of bone and cartilage, unspecified Diverticulosis of colon (without mention of hemorrhage) DKA (diabetic ketoacidoses) 09/28/2019 Esophagitis External hemorrhoids without mention of complication Insomnia Internal hemorrhoids without mention of complication Mammographic microcalcification Mild intermittent asthma without complication (HCC) Adult onset Mild nonproliferative diabetic retinopathy of both eyes ([facility]) 12/06/2018 Other and unspecified hyperlipidemia Other forms [...] CORE BIOPSY 02/24/08 LEFT - benign ALLERGIES Amitriptyline, Cymbalta [Duloxetine], Doxycycline, Ephedrine, Iodine, Isolone Forte, Levaquin [Levofloxacin], Lyrica [Pregabalin], Oxycodone, Percocet [Oxycodone-Acetaminophen], Sulfa (Sulfonamide Antibiotics), Aggrenox [Aspirin-Dipyridamole], Cephalexin (Bulk), Duricef [Cefadroxil], and Nortriptyline MEDICATIONS esomeprazole (NEXIUM) 40 mg capsule Take 40 mg by mouth daily before breakfast. sodium chloride (SALINE MIST) 0.65 % nasal spray Use 1 spray in the nose two times a day. byytezpqrhe-nvlgbycuw-vadqeltt (TRELEGY ELLIPTA) 100-62.5-25 mcg inhalation powder Inhale 1 puff as instructed once daily. zolpidem (AMBIEN) 10 mg Take 1 tablet by mouth at bedtime as needed (insomnia) for up to 180 days. insulin glargine (LANTUS SOLOSTAR U-100 INSULIN) 100 unit/mL (3 mL) Take 51 units once a day when in case of pump failure clopidogrel (PLAVIX) 75 mg tablet Take 1 tablet by mouth once daily. losartan (COZAAR) 100 mg tablet Take 1 tablet by mouth once daily. hydrOXYchloroQUINE (PLAQUENIL) 200 mg tablet Take 1.5 tablets by mouth once daily. Infusion Set for Insulin Pump (Air2Web EXT INFUSION SET 23) iset 1 Each one time a week. amLODIPine (NORVASC) 5 mg tablet Take 1 tablet by mouth once daily. nystatin (MYCOSTATIN) powder Apply 1 application to affected area three times a day. atorvastatin (LIPITOR) 40 mg tablet Take 1 tablet by mouth once daily. Insulin Syringe-Needle U-100 (BD INSULIN SYRINGE ULTRA-FINE) 1 mL 31 gauge x 5/16 Use 4 syringes daily if insulin pump fails blood sugar diagnostic (ACCU-CHEK GUIDE TEST STRIPS) test strip Use with blood glucose test upto four times daily insulin lispro (HUMALOG U-100 INSULIN) 100 unit/mL injection as directed in Insulin pump up to 110 units daily. Dx E10.65 WALKER ROLLATOR SEAT WITH 6 WHEELS - RED For ambulation nitroglycerin (NITROLINGUAL) 400 mcg/spray spray one every 5 minutes x3 as needed Bacillus coagulans/inulin (PROBIOTIC WITH PREBIOTIC ORAL) Take 1 capsule by mouth once daily. aspirin 81 mg chewable tablet Take 1 tablet by mouth once daily. Cholecalciferol, Vitamin D3, 125 mcg (5,000 unit) cap Take 1 capsule by mouth once daily. Biotin 1 mg tab Take 1 tablet by mouth once daily. multivitamin tablet Take 1 tablet by mouth once daily. omeprazole (PRILOSEC) 40 mg capsule Take 40 mg by mouth once daily. (Patient not taking: Reported on 11/06/2024) benzonatate (TESSALON PERLE) 100 mg capsule Take 1 capsule by mouth three times a day as needed for cough. (Patient not taking: Reported on 09/20/2024) azelastine 0.1% nasal spray Use 1 spray in each nostril two times a day. (Patient not taking: Reported on 11/06/2024) fluticasone (FLONASE) 50 mcg/actuation nasal spray Use 2 sprays in each nostril two times a day. Rinse mouth after use. (Patient not taking: Reported on 09/20/2024) pramipexole (MIRAPEX) 1 mg tablet Take 2 tablets by mouth daily at bedtime. (Patient not taking: Reported on 09/05/2024) famotidine (PEPCID) 20 mg tablet Take 1 tablet by mouth two times a day. (Patient not taking: Reported on 09/20/2024) guaiFENesin (MUCINEX) 600 mg 12 hr tablet Take 1 tablet by mouth two times a day. (Patient not taking: Reported on 09/20/2024) neomycin 500 mg tablet Take 1 tablet by mouth every 12 hours. (Patient not taking: Reported on 11/25/2023) metoclopramide HCl (REGLAN) 5 mg tablet Take 1 tablet by mouth every 6 hours for 30 days; administer 30 minutes before a meal. (Patient not taking: Reported on 09/20/2024) diclofenac sodium (VOLTAREN ARTHRITIS PAIN TOPICAL) Apply 2 g to affected area as needed (pain). (Patient not taking: Reported on 09/20/2024) lidocain-me.ggybhlm-uqpe-cjvbj 0.5-20-0.035-5 % ptmd Apply 1 Each to affected area as needed. (Patient not taking: Reported on 11/06/2024) traMADol (ULTRAM) 50 mg tablet Take 50 mg by mouth every 6 hours as needed for pain. (Patient not taking: Reported on 05/30/2024) albuterol HFA (PROVENTIL HFA, VENTOLIN HFA) 90 mcg/actuation inhaler Inhale 2 Puffs as instructed every 4 hours as needed for wheezing/shortness of breath. (Patient not taking: Reported on 09/20/2024) acetaminophen (TYLENOL 8 HOUR) 650 mg CR tablet Take 1 tablet by mouth every 8 hours as needed. (Patient not taking: Reported on 09/20/2024) FAMILY HISTORY Problem Relation Age of Onset Cancer Mother breast (diagnosed mid 50's) Heart Mother valvular other (Other) Father leukemia (dx'd age 55) Asthma Paternal Grandmother Diabetes Paternal Grandmother Colon Cancer Other none other (autoimmune def) Daughter Social History Tobacco Use Smoking status: Never Smokeless tobacco: Never Vaping Use Vaping status: Never Used Substance Use Topics Alcohol use: No Drug use: No BP 128/74 Pulse 66 Temp 36.2 ?C (97.2 ?F) Resp 20 Wt 66 kg (145 lb 8.1 oz) SpO2 99% BMI 26.61 kg/m? Review of Systems Constitutional: Negative for chills, fever and malaise/fatigue. HENT: Negative for congestion, ear discharge, ear pain, sinus pain and sore throat. Eyes: Negative for blurred vision, pain, discharge and redness. Respiratory: Negative for cough, hemoptysis, sputum production, shortness of breath, wheezing and stridor. Cardiovascular: Negative for chest pain. Gastrointestinal: Negative for abdominal pain, diarrhea, nausea and vomiting. Musculoskeletal: Negative for myalgias. Skin: Negative for itching and rash. Neurological: Negative for dizziness and headaches. Objective Physical Exam Constitutional: General: She is not in acute distress. Appearance: She is not diaphoretic. HENT: Head: Normocephalic. Jaw: No trismus, tenderness, swelling or pain on movement. Mouth/Throat: Mouth: Mucous membranes are moist. Pharynx: Oropharynx is clear. Uvula midline. No pharyngeal swelling, oropharyngeal exudate, posterior oropharyngeal erythema or uvula swelling. Eyes: Conjunctiva/sclera: Conjunctivae normal. Pupils: Pupils are equal, round, and reactive to light. Cardiovascular: Rate and Rhythm: Normal rate and regular rhythm. Heart sounds: Normal heart sounds. Pulmonary: Effort: Pulmonary effort is normal. No tachypnea, accessory muscle usage or respiratory distress. Breath sounds: Normal breath sounds. No stridor. No wheezing, rhonchi or rales. Abdominal: General: There is no distension. Palpations: Abdomen is soft. Tenderness: There is no abdominal tenderness. There is no guarding or rebound. Musculoskeletal: Cervical back: Normal range of motion and neck supple. No edema, erythema, rigidity or tenderness. No pain with movement. Normal range of motion. Lymphadenopathy: Cervical: No cervical adenopathy. Skin: General: Skin is warm and dry. Neurological: Mental Status: She is alert and oriented to person, place, and time. ASSESSMENT/PLAN: 1. Thrush - ICD9: 112.0, ICD10: B37.0 Diagnosed with thrush. I did discuss with patient today there is a benign exam however if symptoms do occur she can use nystatin. Patient was educated on supportive therapies. Patient will follow up with primary care provider as needed. Patient was instructed to immediately proceed to emergency room for any new, worsening, or symptoms lasting longer than anticipated. The patient's clinical presentation is otherwise unremarkable at this time. Based on exam and clinical finding, the patient is stable for discharge. Plan of care was discussed with patient. Patient verbalizes understanding and agrees to plan of care. This note was generated using Korem software. It may contain errors in wording, punctuation, or spelling. Jonas Red APRN.[facility] CNOV Observed: 11/06/2024 10:30 AM Status: COMPLETED Source: [facility] Office Visit ([facility]) MCKAYLA RUSSO ([id number]) 1945 F Date Time Provider Department 11/06/24 10:30 AM JONAS RED During your visit today, we recorded the following information about you: Temperature Pulse Respiration Blood pressure 97.2 degrees 66/minute 20/minute 128/74 Weight 66 kg Jonas Red APRN.CNP 11/06/2024 10:55 AM Signed Subjective HPI Nontoxic-appearing 79-year-old female presents urgent care chief complaint possible thrush. Duration of symptoms last few days. Associated symptoms possible thrush. Concern due to inhaled corticosteroid use. OTC medications none. No pain. No difficulty swallowing inspiration decreased range of motion of neck or trismus. .Patient presents with: Mouth/Lip Problem: Possible thrush PAST MEDICAL HISTORY Diagnosis Date Abnormal mammogram, unspecified left breast BPPV (benign paroxysmal positional vertigo) 02/11/2015 BPV (benign positional vertigo) CAD (coronary artery disease) Carotid stenosis CARPAL TUNNEL BILATERRAL 08/08/2005 Coronary artery disease involving [place] coronary artery Dr. 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) 12/06/2018 Other and unspecified hyperlipidemia Other forms of migraine Other psoriasis Postsurgical percutaneous transluminal coronary angioplasty status Rheumatoid arthritis(714.0) RLS (restless legs syndrome) 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 sodium chloride (SALINE MIST) 0.65 % nasal spray Use 1 spray in the nose two times a day. vzapfaxkaqz-cohhadzak-mdueimkn (TRELEGY ELLIPTA) 100-62.5-25 mcg inhalation powder Inhale 1 puff as instructed once daily. zolpidem (AMBIEN) 10 mg Take 1 tablet by mouth at bedtime as needed (insomnia) for up to 180 days. insulin glargine (LANTUS SOLOSTAR U-100 INSULIN) 100 unit/mL (3 mL) Take 51 units once a day when in case of pump failure clopidogrel (PLAVIX) 75 mg tablet Take 1 tablet by mouth once daily. losartan (COZAAR) 100 mg tablet Take 1 tablet by mouth once daily. hydrOXYchloroQUINE (PLAQUENIL) 200 mg tablet Take 1.5 tablets by mouth once daily. Infusion Set for Insulin Pump (TreeveoTRONIC EXT INFUSION SET 23) iset 1 Each one time a week. amLODIPine (NORVASC) 5 mg tablet Take 1 tablet by mouth once daily. nystatin (MYCOSTATIN) powder Apply 1 application to affected area three times a day. atorvastatin (LIPITOR) 40 mg tablet Take 1 tablet by mouth once daily. Insulin Syringe-Needle U-100 (BD INSULIN SYRINGE ULTRA-FINE) 1 mL 31 gauge x 5/16 Use 4 syringes daily if insulin pump fails blood sugar diagnostic (ACCU-CHEK GUIDE TEST STRIPS) test strip Use with blood glucose test upto four times daily insulin lispro (HUMALOG U-100 INSULIN) 100 unit/mL injection as directed in Insulin pump up to 110 units daily. Dx E10.65 WALKER ROLLATOR SEAT WITH 6 WHEELS - RED For ambulation nitroglycerin (NITROLINGUAL) 400 mcg/spray spray one every 5 minutes x3 as needed Bacillus coagulans/inulin (PROBIOTIC WITH PREBIOTIC ORAL) Take 1 capsule by mouth once daily. aspirin 81 mg chewable tablet Take 1 tablet by mouth once daily. Cholecalciferol, Vitamin D3, 125 mcg (5,000 unit) cap Take 1 capsule by mouth once daily. Biotin 1 mg tab Take 1 tablet by mouth once daily. multivitamin tablet Take 1 tablet by mouth once daily. omeprazole (PRILOSEC) 40 mg capsule Take 40 mg by mouth once daily. (Patient not taking: Reported on 11/06/2024) benzonatate (TESSALON PERLE) 100 mg capsule Take 1 capsule by mouth three times a day as needed for cough. (Patient not taking: Reported on 09/20/2024) azelastine 0.1% nasal spray Use 1 spray in each nostril two times a day. (Patient not taking: Reported on 11/06/2024) fluticasone (FLONASE) 50 mcg/actuation nasal spray Use 2 sprays in each nostril two times a day. Rinse mouth after use. (Patient not taking: Reported on 09/20/2024) pramipexole (MIRAPEX) 1 mg tablet Take 2 tablets by mouth daily at bedtime. (Patient not taking: Reported on 09/05/2024) famotidine (PEPCID) 20 mg tablet Take 1 tablet by mouth two times a day. (Patient not taking: Reported on 09/20/2024) guaiFENesin (MUCINEX) 600 mg 12 hr tablet Take 1 tablet by mouth two times a day. (Patient not taking: Reported on 09/20/2024) neomycin 500 mg tablet Take 1 tablet by mouth every 12 hours. (Patient not taking: Reported on 11/25/2023) metoclopramide HCl (REGLAN) 5 mg tablet Take 1 tablet by mouth every 6 hours for 30 days; administer 30 minutes before a meal. (Patient not taking: Reported on 09/20/2024) diclofenac sodium (VOLTAREN ARTHRITIS PAIN TOPICAL) Apply 2 g to affected area as needed (pain). (Patient not taking: Reported on 09/20/2024) lidocain-me.vbhhaev-xalo-uhips 0.5-20-0.035-5 % ptmd Apply 1 Each to affected area as needed. (Patient not taking: Reported on 11/06/2024) traMADol (ULTRAM) 50 mg tablet Take 50 mg by mouth every 6 hours as needed for pain. (Patient not taking: Reported on 05/30/2024) albuterol HFA (PROVENTIL HFA, VENTOLIN HFA) 90 mcg/actuation inhaler Inhale 2 Puffs as instructed every 4 hours as needed for wheezing/shortness of breath. (Patient not taking: Reported on 09/20/2024) acetaminophen (TYLENOL 8 HOUR) 650 mg CR tablet Take 1 tablet by mouth every 8 hours as needed. (Patient not taking: Reported on 09/20/2024) FAMILY HISTORY Problem Relation Age of Onset Cancer Mother breast (diagnosed mid 50's) Heart Mother valvular other (Other) Father leukemia (dx'd age 55) Asthma Paternal Grandmother Diabetes Paternal Grandmother Colon Cancer Other none other (autoimmune def) Daughter Social History Tobacco Use Smoking status: Never Smokeless tobacco: Never Vaping Use Vaping status: Never Used Substance Use Topics Alcohol use: No Drug use: No BP 128/74 Pulse 66 Temp 36.2 ?C (97.2 ?F) Resp 20 Wt 66 kg (145 lb 8.1 oz) SpO2 99% BMI 26.61 kg/m? Review of Systems Constitutional: Negative for chills, fever and malaise/fatigue. HENT: Negative for congestion, ear discharge, ear pain, sinus pain and sore throat. Eyes: Negative for blurred vision, pain, discharge and redness. Respiratory: Negative for cough, hemoptysis, sputum production, shortness of breath, wheezing and stridor. Cardiovascular: Negative for chest pain. Gastrointestinal: Negative for abdominal pain, diarrhea, nausea and vomiting. Musculoskeletal: Negative for myalgias. Skin: Negative for itching and rash. Neurological: Negative for dizziness and headaches. Objective Physical Exam Constitutional: General: She is not in acute distress. Appearance: She is not diaphoretic. HENT: Head: Normocephalic. Jaw: No trismus, tenderness, swelling or pain on movement. Mouth/Throat: Mouth: Mucous membranes are moist. Pharynx: Oropharynx is clear. Uvula midline. No pharyngeal swelling, oropharyngeal exudate, posterior oropharyngeal erythema or uvula swelling. Eyes: Conjunctiva/sclera: Conjunctivae normal. Pupils: Pupils are equal, round, and reactive to light. Cardiovascular: Rate and Rhythm: Normal rate and regular rhythm. Heart sounds: Normal heart sounds. Pulmonary: Effort: Pulmonary effort is normal. No tachypnea, accessory muscle usage or respiratory distress. Breath sounds: Normal breath sounds. No stridor. No wheezing, rhonchi or rales. Abdominal: General: There is no distension. Palpations: Abdomen is soft. Tenderness: There is no abdominal tenderness. There is no guarding or rebound. Musculoskeletal: Cervical back: Normal range of motion and neck supple. No edema, erythema, rigidity or tenderness. No pain with movement. Normal range of motion. Lymphadenopathy: Cervical: No cervical adenopathy. Skin: General: Skin is warm and dry. Neurological: Mental Status: She is alert and oriented to person, place, and time. ASSESSMENT/PLAN: 1. Thrush - ICD9: 112.0, ICD10: B37.0 Diagnosed with thrush. I did discuss with patient today there is a benign exam however if symptoms do occur she can use nystatin. Patient was educated on supportive therapies. Patient will follow up with primary care provider as needed. Patient was instructed to immediately proceed to emergency room for any new, worsening, or symptoms lasting longer than anticipated. The patient's clinical presentation is otherwise unremarkable at this time. Based on exam and clinical finding, the patient is stable for discharge. Plan of care was discussed with patient. Patient verbalizes understanding and agrees to plan of care. This note was generated using Korem software. It may contain errors in wording, punctuation, or spelling. Jonas Red APRN.[facility] Allergies As of Date: 11/06/2024 Noted Allergy Reaction AMITRIPTYLINE 11/09/2012 14 - Other: See Comments Comments: Confusion, falls CYMBALTA (DULOXETINE) 06/07/2015 16 - Unknown DOXYCYCLINE 06/11/2011 8 - GI Upset Comments: headache EPHEDRINE 01/10/2005 14 - Other: See Comments Comments: tachycardia, but pt. states she still uses nose spray IODINE 07/29/2006 9 - Itching Comments: itching after prolonged use ISOLONE FORTE 04/06/2023 7 - Swelling LEVAQUIN (LEVOFLOXACIN) 05/26/2012 14 - Other: See Comments Comments: Achilles tendon problem LYRICA (PREGABALIN) 05/26/2012 14 - Other: See Comments Comments: Dizziness at 225mg twice daily OXYCODONE 01/21/2021 1 - Mental Status Change PERCOCET (OXYCODONE-ACETAMINOPHEN)05/29/2010 16 - Unknown SULFA (SULFONAMIDE ANTIBIOTICS) 01/10/2005 4 - Hives Comments: blisters AGGRENOX (ASPIRIN-DIPYRIDAMOLE) 12/18/2008 14 - Other: See Comments Comments: MIGRAINES AND VOMITING CEPHALEXIN (BULK) 05/12/2008 8 - GI Upset DURICEF (CEFADROXIL) 01/10/2005 4 - Hives NORTRIPTYLINE 02/11/2013 14 - Other: See Comments Comments: vertigo Date Reviewed: 11/06/2024 Reviewed by: Jonas Red APRN.[facility] - Fully Assessed Reason for Visit: Mouth/Lip Problem [68] Cmt: Possible thrush Primary Visit Diagnosis:Thrush [B37.0] Order(s):nystatin (MYCOSTATIN) 100,000 unit/mL suspensionTake 5 mL by mouth four times daily for 7 days. 1tsp swish in mouth for several minutes, then swallow (or expectorate) 4 times daily until gone.Disp: 140 mLRfl: 0 Prescriptions as of 11/06/2024 - nystatin (MYCOSTATIN) 100,000 unit/mL suspension Take 5 mL by mouth four times daily for 7 days. 1tsp swish in mouth for several minutes, then swallow (or expectorate) 4 times daily until gone. - omeprazole (PRILOSEC) 40 mg capsule Take 40 mg by mouth once daily. - esomeprazole (NEXIUM) 40 mg capsule Take 40 mg by mouth daily before breakfast. - benzonatate (TESSALON PERLE) 100 mg capsule Take 1 capsule by mouth three times a day as needed for cough. - sodium chloride (SALINE MIST) 0.65 % nasal spray Use 1 spray in the nose two times a day. - azelastine 0.1% nasal spray Use 1 spray in each nostril two times a day. - fluticasone (FLONASE) 50 mcg/actuation nasal spray Use 2 sprays in each nostril two times a day. Rinse mouth after use. - spnubojsies-gefhfwimm-pyluhyrc (TRELEGY ELLIPTA) 100-62.5-25 mcg inhalation powder Inhale 1 puff as instructed once daily. - zolpidem (AMBIEN) 10 mg Take 1 tablet by mouth at bedtime as needed (insomnia) for up to 180 days. - insulin glargine (LANTUS SOLOSTAR U-100 INSULIN) 100 unit/mL (3 mL) Take 51 units once a day when in case of pump failure - clopidogrel (PLAVIX) 75 mg tablet Take 1 tablet by mouth once daily. - losartan (COZAAR) 100 mg tablet Take 1 tablet by mouth once daily. - hydrOXYchloroQUINE (PLAQUENIL) 200 mg tablet Take 1.5 tablets by mouth once daily. - pramipexole (MIRAPEX) 1 mg tablet Take 2 tablets by mouth daily at bedtime. - famotidine (PEPCID) 20 mg tablet Take 1 tablet by mouth two times a day. - guaiFENesin (MUCINEX) 600 mg 12 hr tablet Take 1 tablet by mouth two times a day. - Infusion Set for Insulin Pump (TreeveoTRONIC EXT INFUSION SET 23) iset 1 Each one time a week. - amLODIPine (NORVASC) 5 mg tablet Take 1 tablet by mouth once daily. - nystatin (MYCOSTATIN) powder Apply 1 application to affected area three times a day. - atorvastatin (LIPITOR) 40 mg tablet Take 1 tablet by mouth once daily. - neomycin 500 mg tablet Take 1 tablet by mouth every 12 hours. - metoclopramide HCl (REGLAN) 5 mg tablet Take 1 tablet by mouth every 6 hours for 30 days; administer 30 minutes before a meal. - Insulin Syringe-Needle U-100 (BD INSULIN SYRINGE ULTRA-FINE) 1 mL 31 gauge x 5/16 Use 4 syringes daily if insulin pump fails - blood sugar diagnostic (ACCU-CHEK GUIDE TEST STRIPS) test strip Use with blood glucose test upto four times daily - insulin lispro (HUMALOG U-100 INSULIN) 100 unit/mL injection as directed in Insulin pump up to 110 units daily. Dx E10.65 - diclofenac sodium (VOLTAREN ARTHRITIS PAIN TOPICAL) Apply 2 g to affected area as needed (pain). - lidocain-me.ltjgjrr-ovgu-beata 0.5-20-0.035-5 % ptmd Apply 1 Each to affected area as needed. - traMADol (ULTRAM) 50 mg tablet Take 50 mg by mouth every 6 hours as needed for pain. - albuterol HFA (PROVENTIL HFA, VENTOLIN HFA) 90 mcg/actuation inhaler Inhale 2 Puffs as instructed every 4 hours as needed for wheezing/shortness of breath. - WALKER ROLLATOR SEAT WITH 6 WHEELS - RED For ambulation - nitroglycerin (NITROLINGUAL) 400 mcg/spray spray one every 5 minutes x3 as needed - Bacillus coagulans/inulin (PROBIOTIC WITH PREBIOTIC ORAL) Take 1 capsule by mouth once daily. - aspirin 81 mg chewable tablet Take 1 tablet by mouth once daily. - Cholecalciferol, Vitamin D3, 125 mcg (5,000 unit) cap Take 1 capsule by mouth once daily. - Biotin 1 mg tab Take 1 tablet by mouth once daily. - multivitamin tablet Take 1 tablet by mouth once daily. - acetaminophen (TYLENOL 8 HOUR) 650 mg CR tablet Take 1 tablet by mouth every 8 hours as needed. Problem List As Of Date 11/06/2024 Noted Resolved Hyperlipidemia [E78.5] Hypertension [I10] Coronary artery disease involving [place]* 09/29/2019 Dizziness and Giddiness [R42] 04/30/2009 Postsurgical Percutaneous Transluminal Coronary* 04/30/2009 Mild intermittent asthma without complication [* 09/29/2019 Other psoriasis [L40.8] 09/29/2019 Disorder of bone and cartilage [M89.9, M94.9] 09/29/2019 ESOPHAGITIS [530.1] Diverticulosis of Colon (without Mention of Hem* 04/30/2009 External Hemorrhoids without Mention of Complic* 04/30/2009 Internal Hemorrhoids without Mention of Complic* 04/30/2009 Allergic Rhinitis, Cause Unspecified [J30.9] 01/13/2005 06/25/2015 Ingrowing Nail [L60.0] 03/20/2005 04/30/2009 Pain in Soft Tissues of Limb [M79.609] 03/20/2005 04/30/2009 CARPAL TUNNEL BILATERRAL [M13.149] 08/08/2005 09/29/2019 Nonspecific Abnormal Results of Liver Function *08/08/2005 04/30/2009 OVERWEIGHT [E66.9] 08/08/2005 04/30/2009 Dermatophytosis of Nail [B35.1] 09/04/2005 04/30/2009 Depression [F32.5] 12/18/2005 Anxiety state [F41.1] 12/18/2005 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] 03/23/2006 04/30/2009 Pain in Joint, Shoulder Region [M25.519] 05/22/2006 04/30/2009 Neck Sprain and Strain [S13.9XXA] 05/22/2006 04/30/2009 Onychia and Paronychia of Toe [L03.039] 08/11/2006 04/30/2009 Cellulitis and Abscess of Foot, except Toes [L0*08/24/2006 04/30/2009 Rheumatoid arthritis (HCC) [M06.9] 12/04/2006 Anemia, unspecified [D64.9] 12/04/2006 09/29/2019 Sleep apnea [G47.30] 03/08/2007 Acute Bronchitis [J20.9] 05/18/2008 04/30/2009 Tenosynovitis of Foot and Ankle [M65.979] 06/29/2008 04/30/2009 Vitamin deficiency [E56.9] 04/23/2009 Routine general medical examination at [facility]*04/30/2009 06/25/2015 Class: Chronic Routine gynecological examination [Z01.419] 04/30/2009 06/25/2015 Class: Chronic Diverticulosis of colon [K57.30] 04/30/2009 Cerebral infarction (HCC) [I63.9] 07/16/2009 Pain in joint, lower leg [M25.569] 01/21/2010 06/25/2015 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] 04/25/2010 Restless legs syndrome (RLS) [G25.81] 06/25/2010 Calcifying tendinitis of shoulder [M75.30] 07/09/2010 Venous insufficiency [I87.2] 09/08/2011 Thoracic or lumbosacral neuritis or radiculitis*03/01/2012 09/29/2019 Abnormality of gait [R26.9] 03/01/2012 06/25/2015 Vertigo [R42] 02/02/2013 06/25/2015 Cervicalgia [M54.2] 08/04/2014 Gait abnormality [R26.9] 08/04/2014 BPPV (benign paroxysmal positional vertigo) [H8*02/11/2015 09/29/2019 Obstructive sleep apnea syndrome [G47.33] 06/08/2015 Mixed hyperlipidemia [E78.2] 06/08/2015 GERD (gastroesophageal reflux disease) [K21.9] 08/09/2015 RLS (restless legs syndrome) [G25.81] 08/09/2015 Insomnia [G47.00] 08/09/2015 Vertigo [R42] 08/12/2015 09/29/2019 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/2015 Coronary artery disease [I25.10] 08/29/2015 Mild nonproliferative diabetic retinopathy of b*12/06/2018 Hypoglycemia unawareness in type 1 diabetes emre*01/18/2019 Other dysphagia [R13.19] 07/18/2019 09/29/2019 DKA (diabetic ketoacidoses) ([facility]) [E11.10] 09/28/2019 10/18/2020 Asthma [J45.909] 09/29/2019 SHERLYN (acute kidney injury) ([facility]) [N17.9] 09/29/2019 09/30/2019 H/O multiple allergies [Z88.9] 06/19/[address] [Z96.41] 07/10/2020 Type 1 diabetes mellitus with mild nonprolifera*10/18/2020 Type 1 diabetes mellitus with diabetic neuropat*10/18/2020 Class 2 severe obesity with serious comorbidity*10/18/2020 09/05/2024 Bilateral carotid artery stenosis [I65.23] 05/10/2021 Prescriptions ordered this encounter Disp Refills Start End NYSTATIN 100,000 UNIT/ML ORAL SUSPEN* 140 * 0 11/06/2024 11/13/2024 Route: PO Sig: Take 5 mL by mouth four times daily for 7 days. 1tsp swish in mouth for several minutes, then swallow (or expectorate) 4 times daily until gone. Level of Service: OFFICE/OUTPATIENT ESTABLISHED MOD [facility] 30 MIN [17783] Encounter Status:Closed by JONAS RED on 11/06/24 ROGER Observed: 11/03/2024 12:00 AM Status: COMPLETED Source: [facility] Telephone (uConnect) MCKAYLA RUSSO ([id number]) 1945 F Date Time Provider Department 11/03/24 MANUELA ALEMAN During your visit today, we recorded the following information about you: Sarah Patterson 11/03/2024 10:01 AM Signed 1 yr f/u for Carotid stenosis, asymptomatic, bilateral (US prior) Spoke with pt regarding US and f/u appt Pt scheduling US at [facility]. Pt stated Manuela told her she may not need to come in if US results are good. Allergies As of Date: 11/03/2024 Noted Allergy Reaction AMITRIPTYLINE 11/09/2012 14 - Other: See Comments Comments: Confusion, falls CYMBALTA (DULOXETINE) 06/07/2015 16 - Unknown DOXYCYCLINE 06/11/2011 8 - GI Upset Comments: headache EPHEDRINE 01/10/2005 14 - Other: See Comments Comments: tachycardia, but pt. states she still uses nose spray IODINE 07/29/2006 9 - Itching Comments: itching after prolonged use ISOLONE FORTE 04/06/2023 7 - Swelling LEVAQUIN (LEVOFLOXACIN) 05/26/2012 14 - Other: See Comments Comments: Achilles tendon problem LYRICA (PREGABALIN) 05/26/2012 14 - Other: See Comments Comments: Dizziness at 225mg twice daily OXYCODONE 01/21/2021 1 - Mental Status Change PERCOCET (OXYCODONE-ACETAMINOPHEN)05/29/2010 16 - Unknown SULFA (SULFONAMIDE ANTIBIOTICS) 01/10/2005 4 - Hives Comments: blisters AGGRENOX (ASPIRIN-DIPYRIDAMOLE) 12/18/2008 14 - Other: See Comments Comments: MIGRAINES AND VOMITING CEPHALEXIN (BULK) 05/12/2008 8 - GI Upset DURICEF (CEFADROXIL) 01/10/2005 4 - Hives NORTRIPTYLINE 02/11/2013 14 - Other: See Comments Comments: vertigo Date Reviewed: 10/26/2024 Reviewed by: Alberto Troy APRN.[facility] [facility] - Fully Assessed Reason for Visit: Appointment [186] Cmt: appt Prescriptions as of 11/03/2024 - omeprazole (PRILOSEC) 40 mg capsule Take 40 mg by mouth once daily. - esomeprazole (NEXIUM) 40 mg capsule Take 40 mg by mouth daily before breakfast. - benzonatate (TESSALON PERLE) 100 mg capsule Take 1 capsule by mouth three times a day as needed for cough. - sodium chloride (SALINE MIST) 0.65 % nasal spray Use 1 spray in the nose two times a day. - azelastine 0.1% nasal spray Use 1 spray in each nostril two times a day. - fluticasone (FLONASE) 50 mcg/actuation nasal spray Use 2 sprays in each nostril two times a day. Rinse mouth after use. - fqhvdnftpup-xhdiwqgbo-cygjfvhr (TRELEGY ELLIPTA) 100-62.5-25 mcg inhalation powder Inhale 1 puff as instructed once daily. - zolpidem (AMBIEN) 10 mg Take 1 tablet by mouth at bedtime as needed (insomnia) for up to 180 days. - insulin glargine (LANTUS SOLOSTAR U-100 INSULIN) 100 unit/mL (3 mL) Take 51 units once a day when in case of pump failure - clopidogrel (PLAVIX) 75 mg tablet Take 1 tablet by mouth once daily. - losartan (COZAAR) 100 mg tablet Take 1 tablet by mouth once daily. - hydrOXYchloroQUINE (PLAQUENIL) 200 mg tablet Take 1.5 tablets by mouth once daily. - pramipexole (MIRAPEX) 1 mg tablet Take 2 tablets by mouth daily at bedtime. - famotidine (PEPCID) 20 mg tablet Take 1 tablet by mouth two times a day. - guaiFENesin (MUCINEX) 600 mg 12 hr tablet Take 1 tablet by mouth two times a day. - Infusion Set for Insulin Pump (MEDTRONIC EXT INFUSION SET 23) iset 1 Each one time a week. - amLODIPine (NORVASC) 5 mg tablet Take 1 tablet by mouth once daily. - nystatin (MYCOSTATIN) powder Apply 1 application to affected area three times a day. - atorvastatin (LIPITOR) 40 mg tablet Take 1 tablet by mouth once daily. - neomycin 500 mg tablet Take 1 tablet by mouth every 12 hours. - metoclopramide HCl (REGLAN) 5 mg tablet Take 1 tablet by mouth every 6 hours for 30 days; administer 30 minutes before a meal. - Insulin Syringe-Needle U-100 (BD INSULIN SYRINGE ULTRA-FINE) 1 mL 31 gauge x 5/16 Use 4 syringes daily if insulin pump fails - blood sugar diagnostic (ACCU-CHEK GUIDE TEST STRIPS) test strip Use with blood glucose test upto four times daily - insulin lispro (HUMALOG U-100 INSULIN) 100 unit/mL injection as directed in Insulin pump up to 110 units daily. Dx E10.65 - diclofenac sodium (VOLTAREN ARTHRITIS PAIN TOPICAL) Apply 2 g to affected area as needed (pain). - lidocain-me.vxvgrdv-evpz-ppoid 0.5-20-0.035-5 % ptmd Apply 1 Each to affected area as needed. - traMADol (ULTRAM) 50 mg tablet Take 50 mg by mouth every 6 hours as needed for pain. - albuterol HFA (PROVENTIL HFA, VENTOLIN HFA) 90 mcg/actuation inhaler Inhale 2 Puffs as instructed every 4 hours as needed for wheezing/shortness of breath. - WALKER ROLLATOR SEAT WITH 6 WHEELS - RED For ambulation - nitroglycerin (NITROLINGUAL) 400 mcg/spray spray one every 5 minutes x3 as needed - Bacillus coagulans/inulin (PROBIOTIC WITH PREBIOTIC ORAL) Take 1 capsule by mouth once daily. - aspirin 81 mg chewable tablet Take 1 tablet by mouth once daily. - Cholecalciferol, Vitamin D3, 125 mcg (5,000 unit) cap Take 1 capsule by mouth once daily. - Biotin 1 mg tab Take 1 tablet by mouth once daily. - multivitamin tablet Take 1 tablet by mouth once daily. - acetaminophen (TYLENOL 8 HOUR) 650 mg CR tablet Take 1 tablet by mouth every 8 hours as needed. Problem List As Of Date 11/03/2024 Noted Resolved Hyperlipidemia [E78.5] Hypertension [I10] Coronary artery disease involving [place]* 09/29/2019 Dizziness and Giddiness [R42] 04/30/2009 Postsurgical Percutaneous Transluminal Coronary* 04/30/2009 Mild intermittent asthma without complication [* 09/29/2019 Other psoriasis [L40.8] 09/29/2019 Disorder of bone and cartilage [M89.9, M94.9] 09/29/2019 ESOPHAGITIS [530.1] Diverticulosis of Colon (without Mention of Hem* 04/30/2009 External Hemorrhoids without Mention of Complic* 04/30/2009 Internal Hemorrhoids without Mention of Complic* 04/30/2009 Allergic Rhinitis, Cause Unspecified [J30.9] 01/13/2005 06/25/2015 Ingrowing Nail [L60.0] 03/20/2005 04/30/2009 Pain in Soft Tissues of Limb [M79.609] 03/20/2005 04/30/2009 CARPAL TUNNEL BILATERRAL [M13.149] 08/08/2005 09/29/2019 Nonspecific Abnormal Results of Liver Function *08/08/2005 04/30/2009 OVERWEIGHT [E66.9] 08/08/2005 04/30/2009 Dermatophytosis of Nail [B35.1] 09/04/2005 04/30/2009 Depression [F32.5] 12/18/2005 Anxiety state [F41.1] 12/18/2005 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] 03/23/2006 04/30/2009 Pain in Joint, Shoulder Region [M25.519] 05/22/2006 04/30/2009 Neck Sprain and Strain [S13.9XXA] 05/22/2006 04/30/2009 Onychia and Paronychia of Toe [L03.039] 08/11/2006 04/30/2009 Cellulitis and Abscess of Foot, except Toes [L0*08/24/2006 04/30/2009 Rheumatoid arthritis (HCC) [M06.9] 12/04/2006 Anemia, unspecified [D64.9] 12/04/2006 09/29/2019 Sleep apnea [G47.30] 03/08/2007 Acute Bronchitis [J20.9] 05/18/2008 04/30/2009 Tenosynovitis of Foot and Ankle [M65.979] 06/29/2008 04/30/2009 Vitamin deficiency [E56.9] 04/23/2009 Routine general medical examination at [facility]*04/30/2009 06/25/2015 Class: Chronic Routine gynecological examination [Z01.419] 04/30/2009 06/25/2015 Class: Chronic Diverticulosis of colon [K57.30] 04/30/2009 Cerebral infarction (HCC) [I63.9] 07/16/2009 Pain in joint, lower leg [M25.569] 01/21/2010 06/25/2015 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] 04/25/2010 Restless legs syndrome (RLS) [G25.81] 06/25/2010 Calcifying tendinitis of shoulder [M75.30] 07/09/2010 Venous insufficiency [I87.2] 09/08/2011 Thoracic or lumbosacral neuritis or radiculitis*03/01/2012 09/29/2019 Abnormality of gait [R26.9] 03/01/2012 06/25/2015 Vertigo [R42] 02/02/2013 06/25/2015 Cervicalgia [M54.2] 08/04/2014 Gait abnormality [R26.9] 08/04/2014 BPPV (benign paroxysmal positional vertigo) [H8*02/11/2015 09/29/2019 Obstructive sleep apnea syndrome [G47.33] 06/08/2015 Mixed hyperlipidemia [E78.2] 06/08/2015 GERD (gastroesophageal reflux disease) [K21.9] 08/09/2015 RLS (restless legs syndrome) [G25.81] 08/09/2015 Insomnia [G47.00] 08/09/2015 Vertigo [R42] 08/12/2015 09/29/2019 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/2015 Coronary artery disease [I25.10] 08/29/2015 Mild nonproliferative diabetic retinopathy of b*12/06/2018 Hypoglycemia unawareness in type 1 diabetes emre*01/18/2019 Other dysphagia [R13.19] 07/18/2019 09/29/2019 DKA (diabetic ketoacidoses) (HCC) [E11.10] 09/28/2019 10/18/2020 Asthma [J45.909] 09/29/2019 SHELRYN (acute kidney injury) ([facility]) [N17.9] 09/29/2019 09/30/2019 H/O multiple allergies [Z88.9] 06/19/[address] [Z96.41] 07/10/2020 Type 1 diabetes mellitus with mild nonprolifera*10/18/2020 Type 1 diabetes mellitus with diabetic neuropat*10/18/2020 Class 2 severe obesity with serious comorbidity*10/18/2020 09/05/2024 Bilateral carotid artery stenosis [I65.23] 05/10/2021 Encounter Status:Closed by SARAH PATTERSON on 11/03/24 PROGRESS Observed: 10/26/2024 9:30 AM Status: COMPLETED Source: [facility] HNO ID: [id number] Author: ALBERTO TROY APRN.[facility] Service: ? Author Type: Nurse Practitioner Type: Progress Notes Filed: 10/26/2024 09:52 Note Text: Follow up for seropositive RA HPI: To review, Mckayla Russo is a 79 year old female *Re: BMD - Around [...] diagnosed with ILD. Sees Dr. Garcia in [place] for pulmonary - In Nov, advised to stop HCQ completely per core feeder as he didn't think she had RA - In Dec, was told by [employer] division manager to continue HCQ, to never stop it. - In Jan, advised to resume HCQ once daily per core feeder (but didn't say why). - In Feb, reported that hands had become swollen off HCQ. Had been on HCQ for less than a month, hadn't kicked back in yet. - In Dec, reported stable joints. Interim dx of gastroparesis - at [facility], reports joints are doing well. With some pain in the neck/back. - With difficulty breathing since covid a few months ago, in the setting of ILD. Hasn't seen local lung specialist recently - Last plaquenil eye exam normal around Apr PAST MEDICAL HISTORY Diagnosis Date - Abnormal mammogram, unspecified left breast - BPPV (benign paroxysmal positional vertigo) 02/11/2015 - BPV (benign positional vertigo) - CAD (coronary artery disease) - Carotid stenosis - CARPAL TUNNEL BILATERRAL 08/08/2005 - Coronary artery disease involving [place] coronary artery Dr. Pederson follows regularly; S/P PTCA and stenting at [facility], 2000 - Coronary atherosclerosis of unspecified type of vessel, [place] or graft - Disorder of bone and cartilage, unspecified - Diverticulosis of colon (without mention of hemorrhage) - DKA (diabetic ketoacidoses) 09/28/2019 - Esophagitis - External hemorrhoids without mention of complication - Insomnia - Internal hemorrhoids without mention of complication - Mammographic microcalcification - Mild intermittent asthma without complication ([facility]) Adult onset - Mild nonproliferative diabetic retinopathy of both eyes ([facility]) 12/06/2018 - Other and unspecified hyperlipidemia - Other forms of migraine - Other psoriasis - Postsurgical percutaneous transluminal coronary angioplasty status - Rheumatoid arthritis(714.0) - RLS (restless legs syndrome) - Stroke (cerebrum) ([facility]) x3 - Thoracic or lumbosacral neuritis or radiculitis, unspecified 03/01/2012 - Type I (juvenile type) diabetes mellitus with neurological manifestations, not stated as 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.61) - 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, 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) - Unspecified asthma(493.90) - Unspecified essential hypertension - Unspecified hereditary and idiopathic peripheral neuropathy PAST SURGICAL HISTORY Procedure Laterality Date - BREAST BIOPSY - COLONOSCOPY FLX DX W/COLLJ SPEC WHEN PFRMD 02/26/2204 Colonoscopy - COLONOSCOPY FLX DX W/COLLJ SPEC WHEN PFRMD 08/29/15 Colonoscopy - COLONOSCOPY FLX DX W/COLLJ SPEC WHEN PFRMD 11/10/2018 Colonoscopy - EGD 04/15/2002 - ESOPHAGOGASTRODUODENOSCOPY TRANSORAL DIAGNOSTIC 11/10/2018 EGD - EXC BREAST LES PREOP PLMT RAD MARKER OPEN 1 LES 03/2008 - OPEN REPAIR OF ROTATOR CUFF CHRONIC left rotator cuff - PAST SURGICAL HISTORY OF tonsilectomy and adenoidectomy - PAST SURGICAL HISTORY OF right breast lumpectomy - PAST SURGICAL HISTORY OF x 3 - PAST SURGICAL HISTORY OF 1992 right thumb trigger finger - PAST SURGICAL HISTORY OF hand surgery - PAST SURGICAL HISTORY OF nose surgery - PAST SURGICAL HISTORY OF age 17 axillary cyst removal - PAST SURGICAL HISTORY OF 2000 heart cath with stent placement - PAST SURGICAL HISTORY OF CARDIAC CAATH 2000, 2001, AND 2004 - PREOP PLACEMENT NEEDLE LOC - STEREOTACTIC CORE BIOPSY 02/24/08 LEFT - benign ALLERGIES Allergen Reactions - Amitriptyline Other: See Comments Confusion, falls - Cymbalta [Duloxetin* Unknown - Doxycycline GI Upset headache - Ephedrine Other: See Comments tachycardia, but pt. states she still uses nose spray - Iodine Itching itching after prolonged use - Isolone Forte Swelling - Levaquin [Levofloxa* Other: See Comments Achilles tendon problem - Lyrica [Pregabalin] Other: See Comments Dizziness at 225mg twice daily - Oxycodone Mental Status Change - Percocet [Oxycodone* Unknown - Sulfa (Sulfonamide * Hives blisters - Aggrenox [Aspirin-D* Other: See Comments MIGRAINES AND VOMITING - Cephalexin (Bulk) GI Upset - Duricef [Cefadroxil] Hives - Nortriptyline Other: See Comments vertigo INTERVAL HISTORY This Team Access Model visit is a virtual encounter. It required patient-provider interaction for the medical decision making as documented below. I have communicated my name and active licensure. The patient's identity and physical location were verified at the time of this visit. Either the patient or their legal printing sales representative has been informed of the risks and benefits of -- and alternatives to -- treatment through a remote evaluation and consents to proceed with the evaluation remotely. She reports intermittent painful cramping to both hands. Symptoms worsened after cleaning the nicholson. No falls or fractures since the [facility]. Sites of pain: low back, pain rated 8/10 Joint swelling: none EMS: yes, lasting 10 minutes No recent infections. Tolerating meds. Answers submitted by the patient for this visit: Review of Systems Rheumatology (Submitted on 10/26/2024) Fever : No Recent unintentional weight change: No Eye pain: No Eye redness: No Vision Disturbance: No Eye Dryness: No Nosebleeds: Yes Sores in your mouth: Yes Trouble Swallowing: No Dry Mouth: No Chest pain: No Leg Swelling: No A cough: No Shortness of breath: No Pain with breathing: No Heartburn: No Abdominal pain: No Diarrhea: No Black tarry stools: No Blood in urine: No Pain or burning with urination: No A rash: No Skin Color Changes: No Hair Loss: No Nail Changes: No Headaches: Yes Numbness: Yes Memory Loss: No Swollen Glands: No Current Outpatient Medications Medication Sig - omeprazole (PRILOSEC) 40 mg capsule Take 40 mg by mouth once daily. - esomeprazole (NEXIUM) 40 mg capsule Take 40 mg by mouth daily before breakfast. - benzonatate (TESSALON PERLE) 100 mg capsule Take 1 capsule by mouth three times a day as needed for cough. (Patient not taking: Reported on 09/20/2024) - sodium chloride (SALINE MIST) 0.65 % nasal spray Use 1 spray in the nose two times a day. - azelastine 0.1% nasal spray Use 1 spray in each nostril two times a day. - fluticasone (FLONASE) 50 mcg/actuation nasal spray Use 2 sprays in each nostril two times a day. Rinse mouth after use. (Patient not taking: Reported on 09/20/2024) - matitohwfcg-icygqvbzo-dfagzgjc (TRELEGY ELLIPTA) 100-62.5-25 mcg inhalation powder Inhale 1 puff as instructed once daily. - zolpidem (AMBIEN) 10 mg Take 1 tablet by mouth at bedtime as needed (insomnia) for up to 180 days. - insulin glargine (LANTUS SOLOSTAR U-100 INSULIN) 100 unit/mL (3 mL) Take 51 units once a day when in case of pump failure - clopidogrel (PLAVIX) 75 mg tablet Take 1 tablet by mouth once daily. - losartan (COZAAR) 100 mg tablet Take 1 tablet by mouth once daily. - hydrOXYchloroQUINE (PLAQUENIL) 200 mg tablet Take 1.5 tablets by mouth once daily. - pramipexole (MIRAPEX) 1 mg tablet Take 2 tablets by mouth daily at bedtime. (Patient not taking: Reported on 09/05/2024) - famotidine (PEPCID) 20 mg tablet Take 1 tablet by mouth two times a day. (Patient not taking: Reported on 09/20/2024) - guaiFENesin (MUCINEX) 600 mg 12 hr tablet Take 1 tablet by mouth two times a day. (Patient not taking: Reported on 09/20/2024) - Infusion Set for Insulin Pump (MEDTRONIC EXT INFUSION SET 23) iset 1 Each one time a week. - amLODIPine (NORVASC) 5 mg tablet Take 1 tablet by mouth once daily. - nystatin (MYCOSTATIN) powder Apply 1 application to affected area three times a day. - atorvastatin (LIPITOR) 40 mg tablet Take 1 tablet by mouth once daily. - neomycin 500 mg tablet Take 1 tablet by mouth every 12 hours. (Patient not taking: Reported on 11/25/2023) - metoclopramide HCl (REGLAN) 5 mg tablet Take 1 tablet by mouth every 6 hours for 30 days; administer 30 minutes before a meal. (Patient not taking: Reported on 09/20/2024) - Insulin Syringe-Needle U-100 (BD INSULIN SYRINGE ULTRA-FINE) 1 mL 31 gauge x 5/16 Use 4 syringes daily if insulin pump fails - blood sugar diagnostic (ACCU-CHEK GUIDE TEST STRIPS) test strip Use with blood glucose test upto four times daily - insulin lispro (HUMALOG U-100 INSULIN) 100 unit/mL injection as directed in Insulin pump up to 110 units daily. Dx E10.65 - diclofenac sodium (VOLTAREN ARTHRITIS PAIN TOPICAL) Apply 2 g to affected area as needed (pain). (Patient not taking: Reported on 09/20/2024) - lidocain-me.svcmjfs-xdpj-beyxv 0.5-20-0.035-5 % ptmd Apply 1 Each to affected area as needed. - traMADol (ULTRAM) 50 mg tablet Take 50 mg by mouth every 6 hours as needed for pain. (Patient not taking: Reported on 05/30/2024) - albuterol HFA (PROVENTIL HFA, VENTOLIN HFA) 90 mcg/actuation inhaler Inhale 2 Puffs as instructed every 4 hours as needed for wheezing/shortness of breath. (Patient not taking: Reported on 09/20/2024) - WALKER ROLLATOR SEAT WITH 6 WHEELS - RED For ambulation - nitroglycerin (NITROLINGUAL) 400 mcg/spray spray one every 5 minutes x3 as needed - Bacillus coagulans/inulin (PROBIOTIC WITH PREBIOTIC ORAL) Take 1 capsule by mouth once daily. - aspirin 81 mg chewable tablet Take 1 tablet by mouth once daily. - Cholecalciferol, Vitamin D3, 125 mcg (5,000 unit) cap Take 1 capsule by mouth once daily. - Biotin 1 mg tab Take 1 tablet by mouth once daily. - multivitamin tablet Take 1 tablet by mouth once daily. - acetaminophen (TYLENOL 8 HOUR) 650 mg CR tablet Take 1 tablet by mouth every 8 hours as needed. (Patient not taking: Reported on 09/20/2024) No current facility-administered medications for this visit. FAMILY HISTORY Problem Relation Age of Onset - Cancer Mother breast (diagnosed mid 50's) - Heart Mother valvular - other (Other) Father leukemia (dx'd age 55) - Asthma Paternal Grandmother - Diabetes Paternal Grandmother - Colon Cancer Other none - other (autoimmune def) Daughter SOCIAL HISTORY: Lives in [place] with spouse. 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 Son in law is a pediatric physician Tobacco use: None Alcohol use: None Drug use: None PHYSICAL EXAM: CONSTITUTIONAL: Well-appearing, in NAD. EYES: No scleral icterus or conjunctivitis NEURO: Awake, alert and oriented *Feb Widespread Pain Index: 13 (0-19) Symptoms Severity Scale: 3 (0-12) WPI>7 and SS Scale>5 OR WPI 3-6 and SS Scale >9 consistent with fibromyalgia Labs reviewed and discussed with the patient: Latest Ref Rng 09/16/2024 Protein, Total 6.3 - 8.0 g/dL 7.0 Albumin 3.9 - 4.9 g/dL 3.5 (L) Calcium 8.5 - 10.2 mg/dL 9.4 Bilirubin, Total 0.2 - 1.3 mg/dL 0.6 Alkaline Phosphatase 34 - 123 U/L 175 (H) AST 13 - 35 U/L 37 (H) ALT 7 - 38 U/L 44 (H) Glucose 74 - 99 mg/dL 345 (H) BUN 7 - 21 mg/dL 23 (H) Creatinine 0.58 - 0.96 mg/dL 0.59 Sodium 136 - 144 mmol/L 139 Potassium 3.7 - 5.1 mmol/L 4.6 Chloride 98 - 107 mmol/L 103 CO2 22 - 30 mmol/L 23 Anion Gap 8 - 15 mmol/L 13 eGFR >=60 mL/min/1.73m? 92 Latest Ref Rng 01/25/2024 WBC 3.70 - 11.00 k/uL 7.75 RBC 3.90 - 5.20 m/uL 3.64 (L) Hemoglobin 11.5 - 15.5 g/dL 12.3 Platelet Count 150 - 400 k/uL 259 Creatinine 0.58 - 0.96 mg/dL 0.68 eGFR >=60 mL/min/1.73m? 90 AST 13 - 35 U/L 32 ALT 7 - 38 U/L 25 *Nov neg RF, CCP, SUSI, scl70, ssa Component Latest Ref Rng AND Units 06/29/2006 05/19/2019 Rheumatoid Factor <16 IU/mL [...] maintained *Mar DEXA- normal IMPRESSION and PLAN: 1. Seropositive RA: Hand and foot pain in the setting of RF positivity and ILD. Has been on multiple medications: HCQ, MTX, humira, enbrel, and orencia. However, with significantly improved symptoms s/p multiple strokes. serologies unremarkable but explained hx is still c/w RA. Had been stable on HCQ but then was off for a period in , resumed once daily afterward. Currently stable overall, with intermittent hand cramping. - Continue HCQ 200mg bid along ophthalmology follow-up at least annually thereafter (last normal in Apr) - No further tx is needed at this time from the joint perspective but advised in the past to let us know if the chamber [employer] division manager feels like additional tx is needed from the ILD standpoint so that we can provide input as needed - Continue pulmonary management of ILD, referral to pulmonary previously provided - check labs now - will check hand x-rays - she declined consult to OT for hand cramping 2. History of osteopenia: Multiple remote fractures, not clearly fragility fractures per history. Remote use of fosamax - per the medication list although she doesn't recall this. DEXA with normal BMD, Nov DXA with osteopenia - Calcium and vitamin D supplementation - Check DEXA in Feb, order placed and she was reminded to schedule on the same machine as prior - she was advised to contact our office if she has any interim fractures 3. Gastroparesis: Negative prior testing for SSc - previously given referral to GI 4. General health maintenance: - Advised to continue follow-up with PCP for routine health maintenance and malignancy screening Follow-up in 5 months, or sooner if needed Thank you for allowing me to participate in the care of your patient. Medical Decision Making: Problems: Moderate: 2+ stable chronic illnesses Data: Unique test result(s) reviewed: 3+ Unique test(s) ordered: 2 Independent interpretation of test from other physician/QHCP Risk: High: Drug therapy requiring intensive monitoring Medical Decision Making Level: 5 - High Alberto Troy APRN.TIM DURAN Observed: 10/26/2024 12:00 AM Status: COMPLETED Source: [facility] Telephone (Essential Viewing) MCKAYLA RUSSO ([id number]) 1945 F Date Time Provider Department 10/26/24 ALBERTO TROY During your visit today, we recorded the following information about you: Alberto Troy APRN.[facility] 10/26/2024 9:37 AM Signed The patient did not log in for her virtual appointment scheduled with me at 930. I left a message reminded her of the appointment. Alberto Troy APRN.[facility] [facility] Allergies As of Date: 10/26/2024 Noted Allergy Reaction AMITRIPTYLINE 11/09/2012 14 - Other: See Comments Comments: Confusion, falls CYMBALTA (DULOXETINE) 06/07/2015 16 - Unknown DOXYCYCLINE 06/11/2011 8 - GI Upset Comments: headache EPHEDRINE 01/10/2005 14 - Other: See Comments Comments: tachycardia, but pt. states she still uses nose spray IODINE 07/29/2006 9 - Itching Comments: itching after prolonged use ISOLONE FORTE 04/06/2023 7 - Swelling LEVAQUIN (LEVOFLOXACIN) 05/26/2012 14 - Other: See Comments Comments: Achilles tendon problem LYRICA (PREGABALIN) 05/26/2012 14 - Other: See Comments Comments: Dizziness at 225mg twice daily OXYCODONE 01/21/2021 1 - Mental Status Change PERCOCET (OXYCODONE-ACETAMINOPHEN)05/29/2010 16 - Unknown SULFA (SULFONAMIDE ANTIBIOTICS) 01/10/2005 4 - Hives Comments: blisters AGGRENOX (ASPIRIN-DIPYRIDAMOLE) 12/18/2008 14 - Other: See Comments Comments: MIGRAINES AND VOMITING CEPHALEXIN (BULK) 05/12/2008 8 - GI Upset DURICEF (CEFADROXIL) 01/10/2005 4 - Hives NORTRIPTYLINE 02/11/2013 14 - Other: See Comments Comments: vertigo Date Reviewed: 09/20/2024 Reviewed by: Vitaliy, Moriah, OCCA - Fully Assessed Reason for Visit: Appointment [[id number]] Prescriptions as of 10/26/2024 - omeprazole (PRILOSEC) 40 mg capsule Take 40 mg by mouth once daily. - esomeprazole (NEXIUM) 40 mg capsule Take 40 mg by mouth daily before breakfast. - benzonatate (TESSALON PERLE) 100 mg capsule Take 1 capsule by mouth three times a day as needed for cough. - sodium chloride (SALINE MIST) 0.65 % nasal spray Use 1 spray in the nose two times a day. - azelastine 0.1% nasal spray Use 1 spray in each nostril two times a day. - fluticasone (FLONASE) 50 mcg/actuation nasal spray Use 2 sprays in each nostril two times a day. Rinse mouth after use. - jxhwjdbcsvn-eallokhhc-ufpemjqb (TRELEGY ELLIPTA) 100-62.5-25 mcg inhalation powder Inhale 1 puff as instructed once daily. - zolpidem (AMBIEN) 10 mg Take 1 tablet by mouth at bedtime as needed (insomnia) for up to 180 days. - insulin glargine (LANTUS SOLOSTAR U-100 INSULIN) 100 unit/mL (3 mL) Take 51 units once a day when in case of pump failure - clopidogrel (PLAVIX) 75 mg tablet Take 1 tablet by mouth once daily. - losartan (COZAAR) 100 mg tablet Take 1 tablet by mouth once daily. - hydrOXYchloroQUINE (PLAQUENIL) 200 mg tablet Take 1.5 tablets by mouth once daily. - pramipexole (MIRAPEX) 1 mg tablet Take 2 tablets by mouth daily at bedtime. - famotidine (PEPCID) 20 mg tablet Take 1 tablet by mouth two times a day. - guaiFENesin (MUCINEX) 600 mg 12 hr tablet Take 1 tablet by mouth two times a day. - Infusion Set for Insulin Pump (MEDTRONIC EXT INFUSION SET 23) iset 1 Each one time a week. - amLODIPine (NORVASC) 5 mg tablet Take 1 tablet by mouth once daily. - nystatin (MYCOSTATIN) powder Apply 1 application to affected area three times a day. - atorvastatin (LIPITOR) 40 mg tablet Take 1 tablet by mouth once daily. - neomycin 500 mg tablet Take 1 tablet by mouth every 12 hours. - metoclopramide HCl (REGLAN) 5 mg tablet Take 1 tablet by mouth every 6 hours for 30 days; administer 30 minutes before a meal. - Insulin Syringe-Needle U-100 (BD INSULIN SYRINGE ULTRA-FINE) 1 mL 31 gauge x 09/02 Use 4 syringes daily if insulin pump fails - blood sugar diagnostic (ACCU-CHEK GUIDE TEST STRIPS) test strip Use with blood glucose test upto four times daily - insulin lispro (HUMALOG U-100 INSULIN) 100 unit/mL injection as directed in Insulin pump up to 110 units daily. Dx E10.65 - diclofenac sodium (VOLTAREN ARTHRITIS PAIN TOPICAL) Apply 2 g to affected area as needed (pain). - lidocain-me.gjoovsk-yjcm-nchoy 0.5-20-0.035-5 % ptmd Apply 1 Each to affected area as needed. - traMADol (ULTRAM) 50 mg tablet Take 50 mg by mouth every 6 hours as needed for pain. - albuterol HFA (PROVENTIL HFA, VENTOLIN HFA) 90 mcg/actuation inhaler Inhale 2 Puffs as instructed every 4 hours as needed for wheezing/shortness of breath. - WALKER ROLLATOR SEAT WITH 6 WHEELS - RED For ambulation - nitroglycerin (NITROLINGUAL) 400 mcg/spray spray one every 5 minutes x3 as needed - Bacillus coagulans/inulin (PROBIOTIC WITH PREBIOTIC ORAL) Take 1 capsule by mouth once daily. - aspirin 81 mg chewable tablet Take 1 tablet by mouth once daily. - Cholecalciferol, Vitamin D3, 125 mcg (5,000 unit) cap Take 1 capsule by mouth once daily. - Biotin 1 mg tab Take 1 tablet by mouth once daily. - multivitamin tablet Take 1 tablet by mouth once daily. - acetaminophen (TYLENOL 8 HOUR) 650 mg CR tablet Take 1 tablet by mouth every 8 hours as needed. Problem List As Of Date 10/26/2024 Noted Resolved Hyperlipidemia [E78.5] Hypertension [I10] Coronary artery disease involving [place]* 09/29/2019 Dizziness and Giddiness [R42] 04/30/2009 Postsurgical Percutaneous Transluminal Coronary* 04/30/2009 Mild intermittent asthma without complication [* 09/29/2019 Other psoriasis [L40.8] 09/29/2019 Disorder of bone and cartilage [M89.9, M94.9] 09/29/2019 ESOPHAGITIS [530.1] Diverticulosis of Colon (without Mention of Hem* 04/30/2009 External Hemorrhoids without Mention of Complic* 04/30/2009 Internal Hemorrhoids without Mention of Complic* 04/30/2009 Allergic Rhinitis, Cause Unspecified [J30.9] 01/13/2005 06/25/2015 Ingrowing Nail [L60.0] 03/20/2005 04/30/2009 Pain in Soft Tissues of Limb [M79.609] 03/20/2005 04/30/2009 CARPAL TUNNEL BILATERRAL [M13.149] 08/08/2005 09/29/2019 Nonspecific Abnormal Results of Liver Function *08/08/2005 04/30/2009 OVERWEIGHT [E66.9] 08/08/2005 04/30/2009 Dermatophytosis of Nail [B35.1] 09/04/2005 04/30/2009 Depression [F32.5] 12/18/2005 Anxiety state [F41.1] 12/18/2005 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] 03/23/2006 04/30/2009 Pain in Joint, Shoulder Region [M25.519] 05/22/2006 04/30/2009 Neck Sprain and Strain [S13.9XXA] 05/22/2006 04/30/2009 Onychia and Paronychia of Toe [L03.039] 08/11/2006 04/30/2009 Cellulitis and Abscess of Foot, except Toes [L0*08/24/2006 04/30/2009 Rheumatoid arthritis (HCC) [M06.9] 12/04/2006 Anemia, unspecified [D64.9] 12/04/2006 09/29/2019 Sleep apnea [G47.30] 03/08/2007 Acute Bronchitis [J20.9] 05/18/2008 04/30/2009 Tenosynovitis of Foot and Ankle [M65.979] 06/29/2008 04/30/2009 Vitamin deficiency [E56.9] 04/23/2009 Routine general medical examination at [facility]*04/30/2009 06/25/2015 Class: Chronic Routine gynecological examination [Z01.419] 04/30/2009 06/25/2015 Class: Chronic Diverticulosis of colon [K57.30] 04/30/2009 Cerebral infarction (HCC) [I63.9] 07/16/2009 Pain in joint, lower leg [M25.569] 01/21/2010 06/25/2015 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] 04/25/2010 Restless legs syndrome (RLS) [G25.81] 06/25/2010 Calcifying tendinitis of shoulder [M75.30] 07/09/2010 Venous insufficiency [I87.2] 09/08/2011 Thoracic or lumbosacral neuritis or radiculitis*03/01/2012 09/29/2019 Abnormality of gait [R26.9] 03/01/2012 06/25/2015 Vertigo [R42] 02/02/2013 06/25/2015 Cervicalgia [M54.2] 08/04/2014 Gait abnormality [R26.9] 08/04/2014 BPPV (benign paroxysmal positional vertigo) [H8*02/11/2015 09/29/2019 Obstructive sleep apnea syndrome [G47.33] 06/08/2015 Mixed hyperlipidemia [E78.2] 06/08/2015 GERD (gastroesophageal reflux disease) [K21.9] 08/09/2015 RLS (restless legs syndrome) [G25.81] 08/09/2015 Insomnia [G47.00] 08/09/2015 Vertigo [R42] 08/12/2015 09/29/2019 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/2015 Coronary artery disease [I25.10] 08/29/2015 Mild nonproliferative diabetic retinopathy of b*12/06/2018 Hypoglycemia unawareness in type 1 diabetes emre*01/18/2019 Other dysphagia [R13.19] 07/18/2019 09/29/2019 DKA (diabetic ketoacidoses) (FORM[facility]LY [facility]) [E11.10] 09/28/2019 10/18/2020 Asthma [J45.909] 09/29/2019 SHERLYN (acute kidney injury) ([facility]) [N17.9] 09/29/2019 09/30/2019 H/O multiple allergies [Z88.9] 06/19/[address] [Z96.41] 07/10/2020 Type 1 diabetes mellitus with mild nonprolifera*10/18/2020 Type 1 diabetes mellitus with diabetic neuropat*10/18/2020 Class 2 severe obesity with serious comorbidity*10/18/2020 09/05/2024 Bilateral carotid artery stenosis [I65.23] 05/10/2021 Encounter Status:Closed by ALBERTO TROY on 10/26/24 ROGER Observed: 09/23/2024 12:00 AM Status: COMPLETED Source: [facility] Telephone (ENDWST) MCKAYLA RUSSO ([id number]) 1945 F Date Time Provider Department 09/23/24 EVA NIELSEN During your visit today, we recorded the following information about you: Hazel Uriarte LPN 09/23/2024 9:17 AM Addendum Patient called. Verified name and date of . Patient would like to switch from [employer] to the [employer]. States she did speak with Clinton and feel comfortable with the switch. Patient is having to switch supplies more often with [employer]. She gets supplies from [facility] and they need orders for Dr. Nielsen for all of her pump supplies- uncertain of names. She needs the CGM's as well. Please review and advise. ELA Camilo Brittney, RN 09/23/2024 9:25 AM Signed Virtual visit with Ha Chavez, diabetic nurse educator, 09/22/2024. Magalys Mera RN 09/23/2024 9:29 AM Signed Email sent to [employer] rep, Julio Cesar Cox, to inquire about the transition from [employer] to [employer] and what information/paperwork will be needed to start the process. Magalys Mera RN September 23, 2024 9:29 AM Diamond Rushing MA 10/05/2024 2:29 PM Signed Patient phones to report she is unable to change her pump as per insurance until 2026. Patient reports main problem is with Guardian sensors not working and causing skin issues. Patient will call [employer] for guardian support. Diamond Rushing MA Allergies As of Date: 09/23/2024 Noted Allergy Reaction AMITRIPTYLINE 11/09/2012 14 - Other: See Comments Comments: Confusion, falls CYMBALTA (DULOXETINE) 06/07/2015 16 - Unknown DOXYCYCLINE 06/11/2011 8 - GI Upset Comments: headache EPHEDRINE 01/10/2005 14 - Other: See Comments Comments: tachycardia, but pt. states she still uses nose spray IODINE 07/29/2006 9 - Itching Comments: itching after prolonged use ISOLONE FORTE 04/06/2023 7 - Swelling LEVAQUIN (LEVOFLOXACIN) 05/26/2012 14 - Other: See Comments Comments: Achilles tendon problem LYRICA (PREGABALIN) 05/26/2012 14 - Other: See Comments Comments: Dizziness at 225mg twice daily OXYCODONE 01/21/2021 1 - Mental Status Change PERCOCET (OXYCODONE-ACETAMINOPHEN)05/29/2010 16 - Unknown SULFA (SULFONAMIDE ANTIBIOTICS) 01/10/2005 4 - Hives Comments: blisters AGGRENOX (ASPIRIN-DIPYRIDAMOLE) 12/18/2008 14 - Other: See Comments Comments: MIGRAINES AND VOMITING CEPHALEXIN (BULK) 05/12/2008 8 - GI Upset DURICEF (CEFADROXIL) 01/10/2005 4 - Hives NORTRIPTYLINE 02/11/2013 14 - Other: See Comments Comments: vertigo Date Reviewed: 09/20/2024 Reviewed by: Moriah Burks OCCA - Fully Assessed Reason for Visit: Patient Question [0787] Prescriptions as of 10/05/2024 - omeprazole (PRILOSEC) 40 mg capsule Take 40 mg by mouth once daily. - esomeprazole (NEXIUM) 40 mg capsule Take 40 mg by mouth daily before breakfast. - benzonatate (TESSALON PERLE) 100 mg capsule Take 1 capsule by mouth three times a day as needed for cough. - sodium chloride (SALINE MIST) 0.65 % nasal spray Use 1 spray in the nose two times a day. - azelastine 0.1% nasal spray Use 1 spray in each nostril two times a day. - fluticasone (FLONASE) 50 mcg/actuation nasal spray Use 2 sprays in each nostril two times a day. Rinse mouth after use. - uwctxkvpaxa-sjxolhuot-usbggkwb (TRELEGY ELLIPTA) 100-62.5-25 mcg inhalation powder Inhale 1 puff as instructed once daily. - zolpidem (AMBIEN) 10 mg Take 1 tablet by mouth at bedtime as needed (insomnia) for up to 180 days. - insulin glargine (LANTUS SOLOSTAR U-100 INSULIN) 100 unit/mL (3 mL) Take 51 units once a day when in case of pump failure - clopidogrel (PLAVIX) 75 mg tablet Take 1 tablet by mouth once daily. - losartan (COZAAR) 100 mg tablet Take 1 tablet by mouth once daily. - hydrOXYchloroQUINE (PLAQUENIL) 200 mg tablet Take 1.5 tablets by mouth once daily. - pramipexole (MIRAPEX) 1 mg tablet Take 2 tablets by mouth daily at bedtime. - famotidine (PEPCID) 20 mg tablet Take 1 tablet by mouth two times a day. - guaiFENesin (MUCINEX) 600 mg 12 hr tablet Take 1 tablet by mouth two times a day. - Infusion Set for Insulin Pump ([employer] EXT INFUSION SET 23) iset 1 Each one time a week. - amLODIPine (NORVASC) 5 mg tablet Take 1 tablet by mouth once daily. - nystatin (MYCOSTATIN) powder Apply 1 application to affected area three times a day. - atorvastatin (LIPITOR) 40 mg tablet Take 1 tablet by mouth once daily. - neomycin 500 mg tablet Take 1 tablet by mouth every 12 hours. - metoclopramide HCl (REGLAN) 5 mg tablet Take 1 tablet by mouth every 6 hours for 30 days; administer 30 minutes before a meal. - Insulin Syringe-Needle U-100 (BD INSULIN SYRINGE ULTRA-FINE) 1 mL 31 gauge x 5/16 Use 4 syringes daily if insulin pump fails - blood sugar diagnostic (ACCU-CHEK GUIDE TEST STRIPS) test strip Use with blood glucose test upto four times daily - insulin lispro (HUMALOG U-100 INSULIN) 100 unit/mL injection as directed in Insulin pump up to 110 units daily. Dx E10.65 - diclofenac sodium (VOLTAREN ARTHRITIS PAIN TOPICAL) Apply 2 g to affected area as needed (pain). - lidocain-me.zwvkchh-exeu-haufi 0.5-20-0.035-5 % ptmd Apply 1 Each to affected area as needed. - traMADol (ULTRAM) 50 mg tablet Take 50 mg by mouth every 6 hours as needed for pain. - albuterol HFA (PROVENTIL HFA, VENTOLIN HFA) 90 mcg/actuation inhaler Inhale 2 Puffs as instructed every 4 hours as needed for wheezing/shortness of breath. - WALKER ROLLATOR SEAT WITH 6 WHEELS - RED For ambulation - nitroglycerin (NITROLINGUAL) 400 mcg/spray spray one every 5 minutes x3 as needed - Bacillus coagulans/inulin (PROBIOTIC WITH PREBIOTIC ORAL) Take 1 capsule by mouth once daily. - aspirin 81 mg chewable tablet Take 1 tablet by mouth once daily. - Cholecalciferol, Vitamin D3, 125 mcg (5,000 unit) cap Take 1 capsule by mouth once daily. - Biotin 1 mg tab Take 1 tablet by mouth once daily. - multivitamin tablet Take 1 tablet by mouth once daily. - acetaminophen (TYLENOL 8 HOUR) 650 mg CR tablet Take 1 tablet by mouth every 8 hours as needed. Problem List As Of Date 09/23/2024 Noted Resolved Hyperlipidemia [E78.5] Hypertension [I10] Coronary artery disease involving [place]* 09/29/2019 Dizziness and Giddiness [R42] 04/30/2009 Postsurgical Percutaneous Transluminal Coronary* 04/30/2009 Mild intermittent asthma without complication [* 09/29/2019 Other psoriasis [L40.8] 09/29/2019 Disorder of bone and cartilage [M89.9, M94.9] 09/29/2019 ESOPHAGITIS [530.1] Diverticulosis of Colon (without Mention of Hem* 04/30/2009 External Hemorrhoids without Mention of Complic* 04/30/2009 Internal Hemorrhoids without Mention of Complic* 04/30/2009 Allergic Rhinitis, Cause Unspecified [J30.9] 01/13/2005 06/25/2015 Ingrowing Nail [L60.0] 03/20/2005 04/30/2009 Pain in Soft Tissues of Limb [M79.609] 03/20/2005 04/30/2009 CARPAL TUNNEL BILATERRAL [M13.149] 08/08/2005 09/29/2019 Nonspecific Abnormal Results of Liver Function *08/08/2005 04/30/2009 OVERWEIGHT [E66.9] 08/08/2005 04/30/2009 Dermatophytosis of Nail [B35.1] 09/04/2005 04/30/2009 Depression [F32.5] 12/18/2005 Anxiety state [F41.1] 12/18/2005 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] 03/23/2006 04/30/2009 Pain in Joint, Shoulder Region [M25.519] 05/22/2006 04/30/2009 Neck Sprain and Strain [S13.9XXA] 05/22/2006 04/30/2009 Onychia and Paronychia of Toe [L03.039] 08/11/2006 04/30/2009 Cellulitis and Abscess of Foot, except Toes [L0*08/24/2006 04/30/2009 Rheumatoid arthritis (HCC) [M06.9] 12/04/2006 Anemia, unspecified [D64.9] 12/04/2006 09/29/2019 Sleep apnea [G47.30] 03/08/2007 Acute Bronchitis [J20.9] 05/18/2008 04/30/2009 Tenosynovitis of Foot and Ankle [M65.979] 06/29/2008 04/30/2009 Vitamin deficiency [E56.9] 04/23/2009 Routine general medical examination at [facility]*04/30/2009 06/25/2015 Class: Chronic Routine gynecological examination [Z01.419] 04/30/2009 06/25/2015 Class: Chronic Diverticulosis of colon [K57.30] 04/30/2009 Cerebral infarction (HCC) [I63.9] 07/16/2009 Pain in joint, lower leg [M25.569] 01/21/2010 06/25/2015 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] 04/25/2010 Restless legs syndrome (RLS) [G25.81] 06/25/2010 Calcifying tendinitis of shoulder [M75.30] 07/09/2010 Venous insufficiency [I87.2] 09/08/2011 Thoracic or lumbosacral neuritis or radiculitis*03/01/2012 09/29/2019 Abnormality of gait [R26.9] 03/01/2012 06/25/2015 Vertigo [R42] 02/02/2013 06/25/2015 Cervicalgia [M54.2] 08/04/2014 Gait abnormality [R26.9] 08/04/2014 BPPV (benign paroxysmal positional vertigo) [H8*02/11/2015 09/29/2019 Obstructive sleep apnea syndrome [G47.33] 06/08/2015 Mixed hyperlipidemia [E78.2] 06/08/2015 GERD (gastroesophageal reflux disease) [K21.9] 08/09/2015 RLS (restless legs syndrome) [G25.81] 08/09/2015 Insomnia [G47.00] 08/09/2015 Vertigo [R42] 08/12/2015 09/29/2019 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/2015 Coronary artery disease [I25.10] 08/29/2015 Mild nonproliferative diabetic retinopathy of b*12/06/2018 Hypoglycemia unawareness in type 1 diabetes emre*01/18/2019 Other dysphagia [R13.19] 07/18/2019 09/29/2019 DKA (diabetic ketoacidoses) ([facility]) [E11.10] 09/28/2019 10/18/2020 Asthma [J45.909] 09/29/2019 SHERLYN (acute kidney injury) ([facility]) [N17.9] 09/29/2019 09/30/2019 H/O multiple allergies [Z88.9] 06/19/[address] [Z96.41] 07/10/2020 Type 1 diabetes mellitus with mild nonprolifera*10/18/2020 Type 1 diabetes mellitus with diabetic neuropat*10/18/2020 Class 2 severe obesity with serious comorbidity*10/18/2020 09/05/2024 Bilateral carotid artery stenosis [I65.23] 05/10/2021 Encounter Status:Closed by MAGALYS MERA on 09/23/24 PROGRESS Observed: 09/22/2024 1:47 PM Status: COMPLETED Source: [facility] ID: [id number] Author: CLINTON CHAVEZ RN Service: ? Author Type: Registered Nurse Type: Progress Notes Filed: 09/22/2024 14:04 Note Text: Questions about what other pumps are available due to issues with the Guardian. Reviewed briefly what other pumps are available. She was interested in considering the [employer] Mobi, she reports she is already using an iPhone so this is compatible with her needs. She is still considering, encouraged her to reach out to her insurance to see if that is covered in her insurance and reach out to Dr. Nielsen when she is ready to begin the paperwork for transitioning. Spent approximate 15 minutes reviewing options with patient. TIMN Observed: 09/22/2024 12:00 AM Status: COMPLETED Source: [facility] Telephone (INTMWS) MCKAYLA RUSSO ([id number]) 1945 F Date Time Provider Department 09/22/24 DARRYN ANDERSON INTMWS During your visit today, we recorded the following information about you: Nara Troy RN 09/22/2024 11:11 AM Signed Patient calls and wanted provider to know that she got PFTs done at [facility] on 09/06/2024. Results are scanned into system. Nara Troy RN Allergies As of Date: 09/22/2024 Noted Allergy Reaction AMITRIPTYLINE 11/09/2012 14 - Other: See Comments Comments: Confusion, falls CYMBALTA (DULOXETINE) 06/07/2015 16 - Unknown DOXYCYCLINE 06/11/2011 8 - GI Upset Comments: headache EPHEDRINE 01/10/2005 14 - Other: See Comments Comments: tachycardia, but pt. states she still uses nose spray IODINE 07/29/2006 9 - Itching Comments: itching after prolonged use ISOLONE FORTE 04/06/2023 7 - Swelling LEVAQUIN (LEVOFLOXACIN) 05/26/2012 14 - Other: See Comments Comments: Achilles tendon problem LYRICA (PREGABALIN) 05/26/2012 14 - Other: See Comments Comments: Dizziness at 225mg twice daily OXYCODONE 01/21/2021 1 - Mental Status Change PERCOCET (OXYCODONE-ACETAMINOPHEN)05/29/2010 16 - Unknown SULFA (SULFONAMIDE ANTIBIOTICS) 01/10/2005 4 - Hives Comments: blisters AGGRENOX (ASPIRIN-DIPYRIDAMOLE) 12/18/2008 14 - Other: See Comments Comments: MIGRAINES AND VOMITING CEPHALEXIN (BULK) 05/12/2008 8 - GI Upset DURICEF (CEFADROXIL) 01/10/2005 4 - Hives NORTRIPTYLINE 02/11/2013 14 - Other: See Comments Comments: vertigo Date Reviewed: 09/20/2024 Reviewed by: Moriah Burks OCCA - Fully Assessed Reason for Visit: Appointment [186] Cmt: R/s Prescriptions as of 09/27/2024 - omeprazole (PRILOSEC) 40 mg capsule Take 40 mg by mouth once daily. - esomeprazole (NEXIUM) 40 mg capsule Take 40 mg by mouth daily before breakfast. - benzonatate (TESSALON PERLE) 100 mg capsule Take 1 capsule by mouth three times a day as needed for cough. - sodium chloride (SALINE MIST) 0.65 % nasal spray Use 1 spray in the nose two times a day. - azelastine 0.1% nasal spray Use 1 spray in each nostril two times a day. - fluticasone (FLONASE) 50 mcg/actuation nasal spray Use 2 sprays in each nostril two times a day. Rinse mouth after use. - xmdmkoumros-hssdemhvq-xvyuofci (TRELEGY ELLIPTA) 100-62.5-25 mcg inhalation powder Inhale 1 puff as instructed once daily. - zolpidem (AMBIEN) 10 mg Take 1 tablet by mouth at bedtime as needed (insomnia) for up to 180 days. - insulin glargine (LANTUS SOLOSTAR U-100 INSULIN) 100 unit/mL (3 mL) Take 51 units once a day when in case of pump failure - clopidogrel (PLAVIX) 75 mg tablet Take 1 tablet by mouth once daily. - losartan (COZAAR) 100 mg tablet Take 1 tablet by mouth once daily. - hydrOXYchloroQUINE (PLAQUENIL) 200 mg tablet Take 1.5 tablets by mouth once daily. - pramipexole (MIRAPEX) 1 mg tablet Take 2 tablets by mouth daily at bedtime. - famotidine (PEPCID) 20 mg tablet Take 1 tablet by mouth two times a day. - guaiFENesin (MUCINEX) 600 mg 12 hr tablet Take 1 tablet by mouth two times a day. - Infusion Set for Insulin Pump ([employer] EXT INFUSION SET 23) iset 1 Each one time a week. - amLODIPine (NORVASC) 5 mg tablet Take 1 tablet by mouth once daily. - nystatin (MYCOSTATIN) powder Apply 1 application to affected area three times a day. - atorvastatin (LIPITOR) 40 mg tablet Take 1 tablet by mouth once daily. - neomycin 500 mg tablet Take 1 tablet by mouth every 12 hours. - metoclopramide HCl (REGLAN) 5 mg tablet Take 1 tablet by mouth every 6 hours for 30 days; administer 30 minutes before a meal. - Insulin Syringe-Needle U-100 (BD INSULIN SYRINGE ULTRA-FINE) 1 mL 31 gauge x 5/16 Use 4 syringes daily if insulin pump fails - blood sugar diagnostic (ACCU-CHEK GUIDE TEST STRIPS) test strip Use with blood glucose test upto four times daily - insulin lispro (HUMALOG U-100 INSULIN) 100 unit/mL injection as directed in Insulin pump up to 110 units daily. Dx E10.65 - diclofenac sodium (VOLTAREN ARTHRITIS PAIN TOPICAL) Apply 2 g to affected area as needed (pain). - lidocain-me.affnhif-gkla-bbkwj 0.5-20-0.035-5 % ptmd Apply 1 Each to affected area as needed. - traMADol (ULTRAM) 50 mg tablet Take 50 mg by mouth every 6 hours as needed for pain. - albuterol HFA (PROVENTIL HFA, VENTOLIN HFA) 90 mcg/actuation inhaler Inhale 2 Puffs as instructed every 4 hours as needed for wheezing/shortness of breath. - WALKER ROLLATOR SEAT WITH 6 WHEELS - RED For ambulation - nitroglycerin (NITROLINGUAL) 400 mcg/spray spray one every 5 minutes x3 as needed - Bacillus coagulans/inulin (PROBIOTIC WITH PREBIOTIC ORAL) Take 1 capsule by mouth once daily. - aspirin 81 mg chewable tablet Take 1 tablet by mouth once daily. - Cholecalciferol, Vitamin D3, 125 mcg (5,000 unit) cap Take 1 capsule by mouth once daily. - Biotin 1 mg tab Take 1 tablet by mouth once daily. - multivitamin tablet Take 1 tablet by mouth once daily. - acetaminophen (TYLENOL 8 HOUR) 650 mg CR tablet Take 1 tablet by mouth every 8 hours as needed. Problem List As Of Date 09/22/2024 Noted Resolved Hyperlipidemia [E78.5] Hypertension [I10] Coronary artery disease involving [place]* 09/29/2019 Dizziness and Giddiness [R42] 04/30/2009 Postsurgical Percutaneous Transluminal Coronary* 04/30/2009 Mild intermittent asthma without complication [* 09/29/2019 Other psoriasis [L40.8] 09/29/2019 Disorder of bone and cartilage [M89.9, M94.9] 09/29/2019 ESOPHAGITIS [530.1] Diverticulosis of Colon (without Mention of Hem* 04/30/2009 External Hemorrhoids without Mention of Complic* 04/30/2009 Internal Hemorrhoids without Mention of Complic* 04/30/2009 Allergic Rhinitis, Cause Unspecified [J30.9] 01/13/2005 06/25/2015 Ingrowing Nail [L60.0] 03/20/2005 04/30/2009 Pain in Soft Tissues of Limb [M79.609] 03/20/2005 04/30/2009 CARPAL TUNNEL BILATERRAL [M13.149] 08/08/2005 09/29/2019 Nonspecific Abnormal Results of Liver Function *08/08/2005 04/30/2009 OVERWEIGHT [E66.9] 08/08/2005 04/30/2009 Dermatophytosis of Nail [B35.1] 09/04/2005 04/30/2009 Depression [F32.5] 12/18/2005 Anxiety state [F41.1] 12/18/2005 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] 03/23/2006 04/30/2009 Pain in Joint, Shoulder Region [M25.519] 05/22/2006 04/30/2009 Neck Sprain and Strain [S13.9XXA] 05/22/2006 04/30/2009 Onychia and Paronychia of Toe [L03.039] 08/11/2006 04/30/2009 Cellulitis and Abscess of Foot, except Toes [L0*08/24/2006 04/30/2009 Rheumatoid arthritis (HCC) [M06.9] 12/04/2006 Anemia, unspecified [D64.9] 12/04/2006 09/29/2019 Sleep apnea [G47.30] 03/08/2007 Acute Bronchitis [J20.9] 05/18/2008 04/30/2009 Tenosynovitis of Foot and Ankle [M65.979] 06/29/2008 04/30/2009 Vitamin deficiency [E56.9] 04/23/2009 Routine general medical examination at [facility]*04/30/2009 06/25/2015 Class: Chronic Routine gynecological examination [Z01.419] 04/30/2009 06/25/2015 Class: Chronic Diverticulosis of colon [K57.30] 04/30/2009 Cerebral infarction (HCC) [I63.9] 07/16/2009 Pain in joint, lower leg [M25.569] 01/21/2010 06/25/2015 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] 04/25/2010 Restless legs syndrome (RLS) [G25.81] 06/25/2010 Calcifying tendinitis of shoulder [M75.30] 07/09/2010 Venous insufficiency [I87.2] 09/08/2011 Thoracic or lumbosacral neuritis or radiculitis*03/01/2012 09/29/2019 Abnormality of gait [R26.9] 03/01/2012 06/25/2015 Vertigo [R42] 02/02/2013 06/25/2015 Cervicalgia [M54.2] 08/04/2014 Gait abnormality [R26.9] 08/04/2014 BPPV (benign paroxysmal positional vertigo) [H8*02/11/2015 09/29/2019 Obstructive sleep apnea syndrome [G47.33] 06/08/2015 Mixed hyperlipidemia [E78.2] 06/08/2015 GERD (gastroesophageal reflux disease) [K21.9] 08/09/2015 RLS (restless legs syndrome) [G25.81] 08/09/2015 Insomnia [G47.00] 08/09/2015 Vertigo [R42] 08/12/2015 09/29/2019 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/2015 Coronary artery disease [I25.10] 08/29/2015 Mild nonproliferative diabetic retinopathy of b*12/06/2018 Hypoglycemia unawareness in type 1 diabetes emre*01/18/2019 Other dysphagia [R13.19] 07/18/2019 09/29/2019 DKA (diabetic ketoacidoses) ([facility]) [E11.10] 09/28/2019 10/18/2020 Asthma [J45.909] 09/29/2019 SHERLYN (acute kidney injury) ([facility]) [N17.9] 09/29/2019 09/30/2019 H/O multiple allergies [Z88.9] 06/19/[address] [Z96.41] 07/10/2020 Type 1 diabetes mellitus with mild nonprolifera*10/18/2020 Type 1 diabetes mellitus with diabetic neuropat*10/18/2020 Class 2 severe obesity with serious comorbidity*10/18/2020 09/05/2024 Bilateral carotid artery stenosis [I65.23] 05/10/2021 Encounter Status:Closed by NARA TROY on 09/27/24 CNPN Observed: 09/21/2024 12:00 AM Status: COMPLETED Source: [facility] Telephone (ENWSTR) MCKAYLA RUSSO ([id number]) 1945 F Date Time Provider Department 09/21/24 EVA NIELSEN ENWSTR During your visit today, we recorded the following information about you: Magalys Mera RN 09/21/2024 8:53 AM Signed Endocrinology OV notes from 09/20/2024 faxed to [facility] for Pt's existing diabetes supply order. Fax confirmation received. Magalys Mera RN September 21, 2024 8:53 AM Allergies As of Date: 09/21/2024 Noted Allergy Reaction AMITRIPTYLINE 11/09/2012 14 - Other: See Comments Comments: Confusion, falls CYMBALTA (DULOXETINE) 06/07/2015 16 - Unknown DOXYCYCLINE 06/11/2011 8 - GI Upset Comments: headache EPHEDRINE 01/10/2005 14 - Other: See Comments Comments: tachycardia, but pt. states she still uses nose spray IODINE 07/29/2006 9 - Itching Comments: itching after prolonged use ISOLONE FORTE 04/06/2023 7 - Swelling LEVAQUIN (LEVOFLOXACIN) 05/26/2012 14 - Other: See Comments Comments: Achilles tendon problem LYRICA (PREGABALIN) 05/26/2012 14 - Other: See Comments Comments: Dizziness at 225mg twice daily OXYCODONE 01/21/2021 1 - Mental Status Change PERCOCET (OXYCODONE-ACETAMINOPHEN)05/29/2010 16 - Unknown SULFA (SULFONAMIDE ANTIBIOTICS) 01/10/2005 4 - Hives Comments: blisters AGGRENOX (ASPIRIN-DIPYRIDAMOLE) 12/18/2008 14 - Other: See Comments Comments: MIGRAINES AND VOMITING CEPHALEXIN (BULK) 05/12/2008 8 - GI Upset DURICEF (CEFADROXIL) 01/10/2005 4 - Hives NORTRIPTYLINE 02/11/2013 14 - Other: See Comments Comments: vertigo Date Reviewed: 09/20/2024 Reviewed by: Moriah Burks OCCA - Fully Assessed Reason for Visit: OV Notes to DME [Other] Prescriptions as of 09/21/2024 - omeprazole (PRILOSEC) 40 mg capsule Take 40 mg by mouth once daily. - esomeprazole (NEXIUM) 40 mg capsule Take 40 mg by mouth daily before breakfast. - benzonatate (TESSALON PERLE) 100 mg capsule Take 1 capsule by mouth three times a day as needed for cough. - sodium chloride (SALINE MIST) 0.65 % nasal spray Use 1 spray in the nose two times a day. - azelastine 0.1% nasal spray Use 1 spray in each nostril two times a day. - fluticasone (FLONASE) 50 mcg/actuation nasal spray Use 2 sprays in each nostril two times a day. Rinse mouth after use. - urxfqlgljjk-dsyljlwsg-qruujdeh (TRELEGY ELLIPTA) 100-62.5-25 mcg inhalation powder Inhale 1 puff as instructed once daily. - zolpidem (AMBIEN) 10 mg Take 1 tablet by mouth at bedtime as needed (insomnia) for up to 180 days. - insulin glargine (LANTUS SOLOSTAR U-100 INSULIN) 100 unit/mL (3 mL) Take 51 units once a day when in case of pump failure - clopidogrel (PLAVIX) 75 mg tablet Take 1 tablet by mouth once daily. - losartan (COZAAR) 100 mg tablet Take 1 tablet by mouth once daily. - hydrOXYchloroQUINE (PLAQUENIL) 200 mg tablet Take 1.5 tablets by mouth once daily. - pramipexole (MIRAPEX) 1 mg tablet Take 2 tablets by mouth daily at bedtime. - famotidine (PEPCID) 20 mg tablet Take 1 tablet by mouth two times a day. - guaiFENesin (MUCINEX) 600 mg 12 hr tablet Take 1 tablet by mouth two times a day. - Infusion Set for Insulin Pump (MEDTRONIC EXT INFUSION SET 23) iset 1 Each one time a week. - amLODIPine (NORVASC) 5 mg tablet Take 1 tablet by mouth once daily. - nystatin (MYCOSTATIN) powder Apply 1 application to affected area three times a day. - atorvastatin (LIPITOR) 40 mg tablet Take 1 tablet by mouth once daily. - neomycin 500 mg tablet Take 1 tablet by mouth every 12 hours. - metoclopramide HCl (REGLAN) 5 mg tablet Take 1 tablet by mouth every 6 hours for 30 days; administer 30 minutes before a meal. - Insulin Syringe-Needle U-100 (BD INSULIN SYRINGE ULTRA-FINE) 1 mL 31 gauge x 5/16 Use 4 syringes daily if insulin pump fails - blood sugar diagnostic (ACCU-CHEK GUIDE TEST STRIPS) test strip Use with blood glucose test upto four times daily - insulin lispro (HUMALOG U-100 INSULIN) 100 unit/mL injection as directed in Insulin pump up to 110 units daily. Dx E10.65 - diclofenac sodium (VOLTAREN ARTHRITIS PAIN TOPICAL) Apply 2 g to affected area as needed (pain). - lidocain-me.yuuazal-euik-jqvcx 0.5-20-0.035-5 % ptmd Apply 1 Each to affected area as needed. - traMADol (ULTRAM) 50 mg tablet Take 50 mg by mouth every 6 hours as needed for pain. - albuterol HFA (PROVENTIL HFA, VENTOLIN HFA) 90 mcg/actuation inhaler Inhale 2 Puffs as instructed every 4 hours as needed for wheezing/shortness of breath. - WALKER ROLLATOR SEAT WITH 6 WHEELS - RED For ambulation - nitroglycerin (NITROLINGUAL) 400 mcg/spray spray one every 5 minutes x3 as needed - Bacillus coagulans/inulin (PROBIOTIC WITH PREBIOTIC ORAL) Take 1 capsule by mouth once daily. - aspirin 81 mg chewable tablet Take 1 tablet by mouth once daily. - Cholecalciferol, Vitamin D3, 125 mcg (5,000 unit) cap Take 1 capsule by mouth once daily. - Biotin 1 mg tab Take 1 tablet by mouth once daily. - multivitamin tablet Take 1 tablet by mouth once daily. - acetaminophen (TYLENOL 8 HOUR) 650 mg CR tablet Take 1 tablet by mouth every 8 hours as needed. Problem List As Of Date 09/21/2024 Noted Resolved Hyperlipidemia [E78.5] Hypertension [I10] Coronary artery disease involving [place]* 09/29/2019 Dizziness and Giddiness [R42] 04/30/2009 Postsurgical Percutaneous Transluminal Coronary* 04/30/2009 Mild intermittent asthma without complication [* 09/29/2019 Other psoriasis [L40.8] 09/29/2019 Disorder of bone and cartilage [M89.9, M94.9] 09/29/2019 ESOPHAGITIS [530.1] Diverticulosis of Colon (without Mention of Hem* 04/30/2009 External Hemorrhoids without Mention of Complic* 04/30/2009 Internal Hemorrhoids without Mention of Complic* 04/30/2009 Allergic Rhinitis, Cause Unspecified [J30.9] 01/13/2005 06/25/2015 Ingrowing Nail [L60.0] 03/20/2005 04/30/2009 Pain in Soft Tissues of Limb [M79.609] 03/20/2005 04/30/2009 CARPAL TUNNEL BILATERRAL [M13.149] 08/08/2005 09/29/2019 Nonspecific Abnormal Results of Liver Function *08/08/2005 04/30/2009 OVERWEIGHT [E66.9] 08/08/2005 04/30/2009 Dermatophytosis of Nail [B35.1] 09/04/2005 04/30/2009 Depression [F32.5] 12/18/2005 Anxiety state [F41.1] 12/18/2005 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] 03/23/2006 04/30/2009 Pain in Joint, Shoulder Region [M25.519] 05/22/2006 04/30/2009 Neck Sprain and Strain [S13.9XXA] 05/22/2006 04/30/2009 Onychia and Paronychia of Toe [L03.039] 08/11/2006 04/30/2009 Cellulitis and Abscess of Foot, except Toes [L0*08/24/2006 04/30/2009 Rheumatoid arthritis (HCC) [M06.9] 12/04/2006 Anemia, unspecified [D64.9] 12/04/2006 09/29/2019 Sleep apnea [G47.30] 03/08/2007 Acute Bronchitis [J20.9] 05/18/2008 04/30/2009 Tenosynovitis of Foot and Ankle [M65.979] 06/29/2008 04/30/2009 Vitamin deficiency [E56.9] 04/23/2009 Routine general medical examination at [facility]*04/30/2009 06/25/2015 Class: Chronic Routine gynecological examination [Z01.419] 04/30/2009 06/25/2015 Class: Chronic Diverticulosis of colon [K57.30] 04/30/2009 Cerebral infarction (HCC) [I63.9] 07/16/2009 Pain in joint, lower leg [M25.569] 01/21/2010 06/25/2015 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] 04/25/2010 Restless legs syndrome (RLS) [G25.81] 06/25/2010 Calcifying tendinitis of shoulder [M75.30] 07/09/2010 Venous insufficiency [I87.2] 09/08/2011 Thoracic or lumbosacral neuritis or radiculitis*03/01/2012 09/29/2019 Abnormality of gait [R26.9] 03/01/2012 06/25/2015 Vertigo [R42] 02/02/2013 06/25/2015 Cervicalgia [M54.2] 08/04/2014 Gait abnormality [R26.9] 08/04/2014 BPPV (benign paroxysmal positional vertigo) [H8*02/11/2015 09/29/2019 Obstructive sleep apnea syndrome [G47.33] 06/08/2015 Mixed hyperlipidemia [E78.2] 06/08/2015 GERD (gastroesophageal reflux disease) [K21.9] 08/09/2015 RLS (restless legs syndrome) [G25.81] 08/09/2015 Insomnia [G47.00] 08/09/2015 Vertigo [R42] 08/12/2015 09/29/2019 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/2015 Coronary artery disease [I25.10] 08/29/2015 Mild nonproliferative diabetic retinopathy of b*12/06/2018 Hypoglycemia unawareness in type 1 diabetes emre*01/18/2019 Other dysphagia [R13.19] 07/18/2019 09/29/2019 DKA (diabetic ketoacidoses) ([facility]) [E11.10] 09/28/2019 10/18/2020 Asthma [J45.909] 09/29/2019 SHERLYN (acute kidney injury) ([facility]) [N17.9] 09/29/2019 09/30/2019 H/O multiple allergies [Z88.9] 06/19/[address] [Z96.41] 07/10/2020 Type 1 diabetes mellitus with mild nonprolifera*10/18/2020 Type 1 diabetes mellitus with diabetic neuropat*10/18/2020 Class 2 severe obesity with serious comorbidity*10/18/2020 09/05/2024 Bilateral carotid artery stenosis [I65.23] 05/10/2021 Encounter Status:Closed by MAGALYS MERA on 09/21/24 PROGRESS Observed: 09/20/2024 2:47 PM Status: COMPLETED Source: [facility] HNO ID: [id number] Author: EVA NIELSEN MD Service: ? Author Type: Physician Type: Progress Notes Filed: 09/20/2024 19:13 Note Text: [facility] Follow up visit Note History of present illness: This is a 79 year old female with history of type 1 diabetes, complicated by mild nonproliferative retinopathy of bilateral retina, Class I obesity, 3 strokes (2009, 2012), Bilateral carotid artery stenosis, CAD, HLD, HTN, SOLE, GERD, RA, Gastroparesis She is accompanied by her today, who is a type II diabetic. She was following Dr. Palm at [facility] in the recent past, last appointment in April 2023. Prior to that, she was following with endocrinology at [facility], last appointment in October 2020 with Princess Lim APRN. [facility] Established care with me in 05/2023 LV with me was 05/2024 Documentation from previous note of previous visit was copied and pasted and has been reviewed and edited as appropriate and is current for today. History in brief, -Initially diagnosed: at the age of 19 years -Circumstances around diagnosis: she had symptoms of hyperglycemia with severe . -Duration of diabetes: -Length of time on oral medications before switching to insulin: -Duration of insulin use: Started pump almost 25 years ago, when she was following with Dr. Mancilla Uses pump on the abdomen, and CGMS on her thigh -Hospitalizations for DKA: when she was on a different pump which was not automated Known complications include: hypertension, retinopathy, peripheral neuropathy and cardiovascular disease (CAD s/p PTCA) , CVA, gastroparesis on gastric emptying study following Dr. Dyer at [facility] Exacerbating factors include: obesity Last NEIL/Retina Eval: May 02, 2024, reports left eye is having blurry vision, right eye is alright Nephropathy -- Yes STEFFANY/ARB Use -- Yes She was following with podiatry, Dr. Zhao Other -- Wheelchair bound due to stroke Current diabetes regimen is as follows: Basal insulin for back up: lantus Glucagon: denies Humalog via Medtronic 780 G pump plus Guardian sensor Basal rate: 00:00= 1.40 0230= 1.40 0600= 1.45 0900=2.60 1930= 2.50 Total basal rate in 24 hours= 51.3 units Bolus: Insulin:carb ratio 00:00= 7.5 Sensitivity 00:00= 40 Blood glucose target= 110 mg/dL 00:00= 90-140 Active insulin time 2 hours Avg daily carbs 113 g +/- 33 Changing pump site every 2 days Changing sensor every 7 days CGM: Time in range: 74%, lows 1%, high 18%, very high 7% . Symptoms/concerns today She reports to have issues with the pump again where her BG were elevated to above 300s, which would respond to back up insulin from outside but would not respond to bolus with pump. She also reports issues with the sensor, failing with in 2 to 3 days, errors in reading, where sensor would show BG in 60s, while finger stick would show 90s, and the need for multiple calibrations She has contacted [employer] multiple times due to all these issues, and reports they were responsive to her concerns. She however reports that her sugars are much better controlled with the regimen she was given, as compared to glycemic control in the past. Denied any hypoglycemic episodes -Polyuria: no -Polydipsia: no -Weight changes: she has lost considerable amount of weight with the help of diet in the past, and has maintained stable weight since Intermittently she also received steroid injections in her joints . Lifestyle -Exercise: no routine exercise due to fall leading to mobility issues -Diet: reports carb consistent diet She has seen Nutrition services at [facility], and reports that it was not very beneficial, she saw dietitian at [facility] who started her on a gastroparesis nutritional plan She has seen endocrine dietitian and diabetic education few times now ROS: As per HPI Past Medical History PAST MEDICAL HISTORY Diagnosis Date Abnormal mammogram, unspecified left breast BPPV (benign paroxysmal positional vertigo) 02/11/2015 BPV (benign positional vertigo) CAD (coronary artery disease) Carotid stenosis CARPAL TUNNEL BILATERRAL 08/08/2005 Coronary artery disease involving [place] coronary artery Dr. Pederson follows regularly; S/P PTCA and stenting at [facility], 2001 Coronary atherosclerosis of unspecified type of vessel, [place] or graft Disorder of bone and cartilage, unspecified Diverticulosis of colon (without mention of hemorrhage) DKA (diabetic ketoacidoses) 09/28/2019 Esophagitis External hemorrhoids without mention of complication Insomnia Internal hemorrhoids without mention of complication Mammographic microcalcification Mild intermittent asthma without complication ([facility]) Adult onset Mild nonproliferative diabetic retinopathy of both eyes ([facility]) 12/06/2018 Other and unspecified hyperlipidemia Other forms [...] hypertension Unspecified hereditary and idiopathic peripheral neuropathy Past Surgical History PAST SURGICAL HISTORY Procedure Laterality Date BREAST [...] STEREOTACTIC CORE BIOPSY 02/24/08 LEFT - benign Family History FAMILY HISTORY Problem Relation Age of Onset Cancer Mother breast (diagnosed mid 50's) Heart Mother valvular other (Other) Father leukemia (dx'd age 55) Asthma Paternal Grandmother Diabetes Paternal Grandmother Colon Cancer Other none other (autoimmune def) Daughter Social History Social History Tobacco Use Smoking status: Never Smokeless tobacco: Never Vaping Use Vaping status: Never Used Substance Use Topics Alcohol use: No Drug use: No Allergies ALLERGIES Allergen Reactions Amitriptyline Other: See Comments Confusion, falls Cymbalta [Duloxetin* Unknown Doxycycline GI Upset headache Ephedrine Other: See Comments tachycardia, but pt. states she still uses nose spray Iodine Itching itching after prolonged use Isolone Forte Swelling Levaquin [Levofloxa* Other: See Comments Achilles tendon problem Lyrica [Pregabalin] Other: See Comments Dizziness at 225mg twice daily Oxycodone Mental Status Change Percocet [Oxycodone* Unknown Sulfa (Sulfonamide * Hives blisters Aggrenox [Aspirin-D* Other: See Comments MIGRAINES AND VOMITING Cephalexin (Bulk) GI Upset Duricef [Cefadroxil] Hives Nortriptyline Other: See Comments vertigo Current Medications Current Outpatient Medications Medication Sig Dispense Refill esomeprazole (NEXIUM) 40 mg capsule Take 40 mg by mouth daily before breakfast. sodium chloride (SALINE MIST) 0.65 % nasal spray Use 1 spray in the nose two times a day. 88 mL 2 azelastine 0.1% nasal spray Use 1 spray in each nostril two times a day. 30 mL 2 pkanpvdwiqs-msmxontoo-iykgqcib (TRELEGY ELLIPTA) 100-62.5-25 mcg inhalation powder Inhale 1 puff as instructed once daily. 60 each 0 zolpidem (AMBIEN) 10 mg Take 1 tablet by mouth at bedtime as needed (insomnia) for up to 180 days. 90 tablet 1 insulin glargine (LANTUS SOLOSTAR U-100 INSULIN) 100 unit/mL (3 mL) Take 51 units once a day when in case of pump failure 6 mL 0 clopidogrel (PLAVIX) 75 mg tablet Take 1 tablet by mouth once daily. 90 tablet 3 losartan (COZAAR) 100 mg tablet Take 1 tablet by mouth once daily. 90 tablet 1 hydrOXYchloroQUINE (PLAQUENIL) 200 mg tablet Take 1.5 tablets by mouth once daily. 135 tablet 3 Infusion Set for Insulin Pump (MEDTRONIC EXT INFUSION SET 23) iset 1 Each one time a week. 20 Each 2 amLODIPine (NORVASC) 5 mg tablet Take 1 tablet by mouth once daily. 90 tablet 3 nystatin (MYCOSTATIN) powder Apply 1 application to affected area three times a day. 30 g 3 atorvastatin (LIPITOR) 40 mg tablet Take 1 tablet by mouth once daily. 90 tablet 3 Insulin Syringe-Needle U-100 (BD INSULIN SYRINGE ULTRA-FINE) 1 mL 31 gauge x 5/16 Use 4 syringes daily if insulin pump fails 100 Each 1 blood sugar diagnostic (ACCU-CHEK GUIDE TEST STRIPS) test strip Use with blood glucose test upto four times daily 200 Each 1 insulin lispro (HUMALOG U-100 INSULIN) 100 unit/mL injection as directed in Insulin pump up to 110 units daily. Dx E10.65 10 mL 3 lidocain-me.ddnewdi-vhmy-ijwjy 0.5-20-0.035-5 % ptmd Apply 1 Each to affected area as needed. WALKER ROLLATOR SEAT WITH 6 WHEELS - RED For ambulation 1 Each 0 nitroglycerin (NITROLINGUAL) 400 mcg/spray spray one every 5 minutes x3 as needed 4.9 g 3 Bacillus coagulans/inulin (PROBIOTIC WITH PREBIOTIC ORAL) Take 1 capsule by mouth once daily. aspirin 81 mg chewable tablet Take 1 tablet by mouth once daily. 30 tablet 11 Cholecalciferol, Vitamin D3, 125 mcg (5,000 unit) cap Take 1 capsule by mouth once daily. 90 capsule 3 Biotin 1 mg tab Take 1 tablet by mouth once daily. 30 tablet 0 multivitamin tablet Take 1 tablet by mouth once daily. 0 omeprazole (PRILOSEC) 40 mg capsule Take 40 mg by mouth once daily. benzonatate (TESSALON PERLE) 100 mg capsule Take 1 capsule by mouth three times a day as needed for cough. (Patient not taking: Reported on 09/20/2024) 21 capsule 0 fluticasone (FLONASE) 50 mcg/actuation nasal spray Use 2 sprays in each nostril two times a day. Rinse mouth after use. (Patient not taking: Reported on 09/20/2024) 16 g 2 pramipexole (MIRAPEX) 1 mg tablet Take 2 tablets by mouth daily at bedtime. (Patient not taking: Reported on 09/05/2024) 180 tablet 1 famotidine (PEPCID) 20 mg tablet Take 1 tablet by mouth two times a day. (Patient not taking: Reported on 09/20/2024) 30 tablet 2 guaiFENesin (MUCINEX) 600 mg 12 hr tablet Take 1 tablet by mouth two times a day. (Patient not taking: Reported on 09/20/2024) 30 tablet 1 neomycin 500 mg tablet Take 1 tablet by mouth every 12 hours. (Patient not taking: Reported on 11/25/2023) metoclopramide HCl (REGLAN) 5 mg tablet Take 1 tablet by mouth every 6 hours for 30 days; administer 30 minutes before a meal. (Patient not taking: Reported on 09/20/2024) diclofenac sodium (VOLTAREN ARTHRITIS PAIN TOPICAL) Apply 2 g to affected area as needed (pain). (Patient not taking: Reported on 09/20/2024) traMADol (ULTRAM) 50 mg tablet Take 50 mg by mouth every 6 hours as needed for pain. (Patient not taking: Reported on 05/30/2024) albuterol HFA (PROVENTIL HFA, VENTOLIN HFA) 90 mcg/actuation inhaler Inhale 2 Puffs as instructed every 4 hours as needed for wheezing/shortness of breath. (Patient not taking: Reported on 09/20/2024) acetaminophen (TYLENOL 8 HOUR) 650 mg CR tablet Take 1 tablet by mouth every 8 hours as needed. (Patient not taking: Reported on 09/20/2024) No current facility-administered medications for this visit. Labs Hemoglobin A1C Date Value Ref Range Status 09/16/2024 6.7 (H) 4.3 - 5.6 % Final Comment: [place] [employer] guidelines indicate that patients with HgbA1c in the range 5.7-6.4% are at increased risk for development of diabetes, and intervention by lifestyle modification may be beneficial. HgbA1c greater or equal to 6.5% is considered diagnostic of diabetes. Albumin/Creat Ratio Date Value Ref Range Status 09/16/2024 80 (H) <30 mg/g Final Comment: Adult Male and Female Nephrotic Criteria: <30 mg/g is considered normal to mildly increased 30-300 mg/g is considered moderately increased >300 mg/g is considered severely increased KDIGO. (2013). KDIGO 2012 Clinical Practice Guideline for the Evaluation and Management of Chronic Kidney Disease. Official Journal of the International Society of Nephrology, 3(1), 1-150. Cholesterol, Total Date Value Ref Range Status 09/16/2024 115 <200 mg/dL Final Comment: <200 mg/dL, Desirable 200-239 mg/dL, Borderline high >239 mg/dL, High HDL Cholesterol Date Value Ref Range Status 09/16/2024 52 >39 mg/dL Final Comment: 40-59 mg/dL, Acceptable >59 mg/dL, High: Negative risk factor for coronary heart disease <40 mg/dL, Low: Positive risk factor for coronary heart disease LDL Cholesterol, Calculated Date Value Ref Range Status 09/16/2024 52 <100 mg/dL Final Comment: <100 mg/dL, Optimal 100-129 mg/dL, Near optimal/above optimal 130-159 mg/dL, Borderline high 160-189 mg/dL, High >189 mg/dL, Very high Secondary prevention optimal LDL Cholesterol levels are recommended to be <70 mg/dL LDL cholesterol is calculated using the [facility] equation. Triglyceride Date Value Ref Range Status 09/16/2024 43 <150 mg/dL Final Comment: <150 mg/dL, Normal 150-199 mg/dL, Borderline high 200-499 mg/dL, High >499 mg/dL, Very high Hba1c 6.6% POC Vitals: 09/20/24 1438 BP: 140/70 BP Site: Right Arm BP Position: Sitting BP Cuff Size: Regular Adult Pulse: 70 Temp: 36.9 ?C (98.5 ?F) TempSrc: Temporal Artery SpO2: 98% Weight: 67.5 kg (148 lb 12.8 oz) Physical Exam GENERAL: Well nourished, obese, well hydrated, in no distress and oriented x 3. She is in wheel chair EYES: no thyroid eye signs, EOMI NECK: no tenderness and adenopathy THYROID: no thyromegaly LUNGS: Unlabored on room air HEART: regular rate and rhythm Abdomen: pump sites without lipodystrophy NEURO: normal strength, no tremor SKIN: facial hair noted OTHER: Acanthosis None Assessment and Plan This is a 79-year-old female with past medical history of type 1 diabetes mellitus on Medtronic 780G pump with guardian sensor, retinopathy, peripheral neuropathy and cardiovascular disease (CAD s/p PTCA) , hypertension, CVA, gastroparesis presenting for evaluation and treatment. She also has a history of rheumatoid arthritis Type 1 diabetes with NPDR, neuropathy, gastroparesis on 780 G medtronic insulin pump: -A1c 6.7% on 09/16/2024, stable from 6.6% in 05/2024, and 6.8% in 01/2024, improved from 7.8% in 08/2023, after she started following instructions for insulin dosing as instructed regarding gastroparesis -eGFR 92 in 08/2024 Interpretation of sensor data: no lows noted, she is running high post meal especially with dinner but also with other meals (likely due to taking half dose under the background of gastroparesis), but the levels are appropriately coming down again Plan: - No changes made to pump settings today - her sugars are improved and has no lows either, with impressive Hba1c I again discussed about giving insulin shots if pump malfunctions which she has been following since last visit after this was recommended- discussed basal insulin, and bolus as well as correction scale to be taken in pump failure. She has seen dietitian at [facility] and was given gastroparesis associated dietary changes Seen dietitian here, and diabetes education as well She would like to follow up with [facility] once again - she declined refills for Novolog insulin or infusion sets, today Recommended to continue calculate the carbs before each meal and take adequate insulin dose accordingly- can take half dose at the start of meal and the rest after completing the meal, especially if she has good appetite and intends to eat the whole meal. If appetite is low, advised to eat first and then take insulin according to the amount of carbs consumed. Discussed again to take correction dose of insulin for Blood glucose above 180 mg/dl- 1 unit for every 40 mg/dl above 180mg/dl -encouraged to continue lifestyle modifications with diet and consider exercise/physical activity as tolerated --sent baqsimi for hypoglycemia but reports it is too expensive, and does not want to buy- advised patient to avoid hypoglycemias as much as possible, and given she is on pump, hypoglycemia is less likely to be profound to need emergency glucagon, jayesh with ucrrent control indicating now lows # Hypertension -Currently antihypertensive regimen: Amlodipine 5 mg once daily - managed by PCP # Extensive cardiovascular history, including CAD and CVA -On Lipitor 40 mg once daily Lipid panel in 08/2024 revealing total cholesterol 115 mg/dL, LDL 52 mg/dL, triglycerides 43 mg/dL #Obesity Class II with serious comobidity -Lifestyle modifications and diabetic control discussed as above RTC in 3 months, as she reported she needs follow ups every 3 months due to ADS Medical Decision Making: Problems: Moderate: 2+ stable chronic illnesses Data: Unique test result(s) reviewed: 3+ Medical Decision Making Level: 4 - Moderate Eva Nielsen MD Endocrinology Associate Staff [facility] Endocrinology and Metabolism [place] [phone] PROGRESS Observed: 09/20/2024 2:43 PM Status: COMPLETED Source: [facility] HNO ID: [id number] Author: DIAMOND RUSHING MA Service: ? 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 Type: Progress Notes Filed: 09/20/2024 18:46 Note Text: CNOV Observed: 09/20/2024 2:40 PM Status: COMPLETED Source: [facility] Office Visit (ENWSTR) MCKAYLA RUSSO ([id number]) 1945 F Date Time Provider Department 09/20/24 2:40 PM EVA NIELSEN ENWSTR During your visit today, we recorded the following information about you: Temperature Pulse Blood pressure Weight 98.5 degrees 70/minute 140/70 67.5 kg Diamond Rushing MA 09/20/2024 6:46 PM Signed Eva Nielsen MD 09/20/2024 7:13 PM Addendum [facility] Follow up visit Note History of present illness: This is a 79 year old female with history of type 1 diabetes, complicated by mild nonproliferative retinopathy of bilateral retina, Class I obesity, 3 strokes (2009, 2012), Bilateral carotid artery stenosis, CAD, HLD, HTN, SOLE, GERD, RA, Gastroparesis She is accompanied by her today, who is a type II diabetic. She was following Dr. Palm at [facility] in the recent past, last appointment in April 2023. Prior to that, she was following with endocrinology at [facility], last appointment in October 2020 with Princess Lim APRN. [facility] Established care with me in 05/2023 LV with me was 05/2024 Documentation from previous note of previous visit was copied and pasted and has been reviewed and edited as appropriate and is current for today. History in brief, -Initially diagnosed: at the age of 19 years -Circumstances around diagnosis: she had symptoms of hyperglycemia with severe . -Duration of diabetes: -Length of time on oral medications before switching to insulin: -Duration of insulin use: Started pump almost 25 years ago, when she was following with Dr. Mancilla Uses pump on the abdomen, and CGMS on her thigh -Hospitalizations for DKA: when she was on a different pump which was not automated Known complications include: hypertension, retinopathy, peripheral neuropathy and cardiovascular disease (CAD s/p PTCA) , CVA, gastroparesis on gastric emptying study following Dr. Dyer at [facility] [place] Exacerbating factors include: obesity Last NEIL/Retina Eval: May 02, 2024, reports left eye is having blurry vision, right eye is alright Nephropathy -- Yes STEFFANY/ARB Use -- Yes She was following with podiatry, Dr. Zhao Other -- Wheelchair bound due to stroke Current diabetes regimen is as follows: Basal insulin for back up: lantus Glucagon: denies Humalog via Medtronic 780 G pump plus Guardian sensor Basal rate: 00:00= 1.40 0230= 1.40 0600= 1.45 0900=2.60 1930= 2.50 Total basal rate in 24 hours= 51.3 units Bolus: Insulin:carb ratio 00:00= 7.5 Sensitivity 00:00= 40 Blood glucose target= 110 mg/dL 00:00= 90-140 Active insulin time 2 hours Avg daily carbs 113 g +/- 33 Changing pump site every 2 days Changing sensor every 7 days CGM: Time in range: 74%, lows 1%, high 18%, very high 7% . Symptoms/concerns today She reports to have issues with the pump again where her BG were elevated to above 300s, which would respond to back up insulin from outside but would not respond to bolus with pump. She also reports issues with the sensor, failing with in 2 to 3 days, errors in reading, where sensor would show BG in 60s, while finger stick would show 90s, and the need for multiple calibrations She has contacted [facility] multiple times due to all these issues, and reports they were responsive to her concerns. She however reports that her sugars are much better controlled with the regimen she was given, as compared to glycemic control in the past. Denied any hypoglycemic episodes -Polyuria: no -Polydipsia: no -Weight changes: she has lost considerable amount of weight with the help of diet in the past, and has maintained stable weight since Intermittently she also received steroid injections in her joints . Lifestyle -Exercise: no routine exercise due to fall leading to mobility issues -Diet: reports carb consistent diet She has seen Nutrition services at [facility], and reports that it was not very beneficial, she saw dietitian at [facility] who started her on a gastroparesis nutritional plan She has seen endocrine dietitian and diabetic education few times now ROS: As per HPI Past Medical History PAST MEDICAL HISTORY Diagnosis Date Abnormal mammogram, unspecified left breast BPPV (benign paroxysmal positional vertigo) 02/11/2015 BPV (benign positional vertigo) CAD (coronary artery disease) Carotid stenosis CARPAL TUNNEL BILATERRAL 08/08/2005 Coronary artery disease involving [place] coronary artery Dr. Pederson follows regularly; S/P PTCA and stenting at [facility], [facility] Coronary atherosclerosis of unspecified type of vessel, [place] or graft Disorder of bone and cartilage, unspecified Diverticulosis of colon (without mention of hemorrhage) DKA (diabetic ketoacidoses) 09/28/2019 Esophagitis External hemorrhoids without mention of complication Insomnia Internal hemorrhoids without mention of complication Mammographic microcalcification Mild intermittent asthma without complication ([facility]) Adult onset Mild nonproliferative diabetic retinopathy of both eyes ([facility]) 12/06/2018 Other and unspecified hyperlipidemia Other forms of migraine Other psoriasis Postsurgical percutaneous transluminal coronary angioplasty status Rheumatoid arthritis(714.0) RLS (restless legs syndrome) Stroke (cerebrum) ([facility]) x3 Thoracic or lumbosacral neuritis or radiculitis, unspecified 03/01/2012 Type I (juvenile type) diabetes mellitus with neurological manifestations, not stated as 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.61) 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, 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) Unspecified asthma(493.90) Unspecified essential hypertension Unspecified hereditary and idiopathic peripheral neuropathy Past Surgical History PAST SURGICAL HISTORY Procedure Laterality Date BREAST [...] STEREOTACTIC CORE BIOPSY 02/24/08 LEFT - benign Family History FAMILY HISTORY Problem Relation Age of Onset Cancer Mother breast (diagnosed mid 50's) Heart Mother valvular other (Other) Father leukemia (dx'd age 55) Asthma Paternal Grandmother Diabetes Paternal Grandmother Colon Cancer Other none other (autoimmune def) Daughter Social History Social History Tobacco Use Smoking status: Never Smokeless tobacco: Never Vaping Use Vaping status: Never Used Substance Use Topics Alcohol use: No Drug use: No Allergies ALLERGIES Allergen Reactions Amitriptyline Other: See Comments Confusion, falls Cymbalta [Duloxetin* Unknown Doxycycline GI Upset headache Ephedrine Other: See Comments tachycardia, but pt. states she still uses nose spray Iodine Itching itching after prolonged use Isolone Forte Swelling Levaquin [Levofloxa* Other: See Comments Achilles tendon problem Lyrica [Pregabalin] Other: See Comments Dizziness at 225mg twice daily Oxycodone Mental Status Change Percocet [Oxycodone* Unknown Sulfa (Sulfonamide * Hives blisters Aggrenox [Aspirin-D* Other: See Comments MIGRAINES AND VOMITING Cephalexin (Bulk) GI Upset Duricef [Cefadroxil] Hives Nortriptyline Other: See Comments vertigo Current Medications Current Outpatient Medications Medication Sig Dispense Refill esomeprazole (NEXIUM) 40 mg capsule Take 40 mg by mouth daily before breakfast. sodium chloride (SALINE MIST) 0.65 % nasal spray Use 1 spray in the nose two times a day. 88 mL 2 azelastine 0.1% nasal spray Use 1 spray in each nostril two times a day. 30 mL 2 sfqehliifti-hoduamabe-lsffqygz (TRELEGY ELLIPTA) 100-62.5-25 mcg inhalation powder Inhale 1 puff as instructed once daily. 60 each 0 zolpidem (AMBIEN) 10 mg Take 1 tablet by mouth at bedtime as needed (insomnia) for up to 180 days. 90 tablet 1 insulin glargine (LANTUS SOLOSTAR U-100 INSULIN) 100 unit/mL (3 mL) Take 51 units once a day when in case of pump failure 6 mL 0 clopidogrel (PLAVIX) 75 mg tablet Take 1 tablet by mouth once daily. 90 tablet 3 losartan (COZAAR) 100 mg tablet Take 1 tablet by mouth once daily. 90 tablet 1 hydrOXYchloroQUINE (PLAQUENIL) 200 mg tablet Take 1.5 tablets by mouth once daily. 135 tablet 3 Infusion Set for Insulin Pump (MEDTRONIC EXT INFUSION SET 23) iset 1 Each one time a week. 20 Each 2 amLODIPine (NORVASC) 5 mg tablet Take 1 tablet by mouth once daily. 90 tablet 3 nystatin (MYCOSTATIN) powder Apply 1 application to affected area three times a day. 30 g 3 atorvastatin (LIPITOR) 40 mg tablet Take 1 tablet by mouth once daily. 90 tablet 3 Insulin Syringe-Needle U-100 (BD INSULIN SYRINGE ULTRA-FINE) 1 mL 31 gauge x 5/16 Use 4 syringes daily if insulin pump fails 100 Each 1 blood sugar diagnostic (ACCU-CHEK GUIDE TEST STRIPS) test strip Use with blood glucose test upto four times daily 200 Each 1 insulin lispro (HUMALOG U-100 INSULIN) 100 unit/mL injection as directed in Insulin pump up to 110 units daily. Dx E10.65 10 mL 3 lidocain-me.eextwyn-qqrj-ukswo 0.5-20-0.035-5 % ptmd Apply 1 Each to affected area as needed. WALKER ROLLATOR SEAT WITH 6 WHEELS - RED For ambulation 1 Each 0 nitroglycerin (NITROLINGUAL) 400 mcg/spray spray one every 5 minutes x3 as needed 4.9 g 3 Bacillus coagulans/inulin (PROBIOTIC WITH PREBIOTIC ORAL) Take 1 capsule by mouth once daily. aspirin 81 mg chewable tablet Take 1 tablet by mouth once daily. 30 tablet 11 Cholecalciferol, Vitamin D3, 125 mcg (5,000 unit) cap Take 1 capsule by mouth once daily. 90 capsule 3 Biotin 1 mg tab Take 1 tablet by mouth once daily. 30 tablet 0 multivitamin tablet Take 1 tablet by mouth once daily. 0 omeprazole (PRILOSEC) 40 mg capsule Take 40 mg by mouth once daily. benzonatate (TESSALON PERLE) 100 mg capsule Take 1 capsule by mouth three times a day as needed for cough. (Patient not taking: Reported on 09/20/2024) 21 capsule 0 fluticasone (FLONASE) 50 mcg/actuation nasal spray Use 2 sprays in each nostril two times a day. Rinse mouth after use. (Patient not taking: Reported on 09/20/2024) 16 g 2 pramipexole (MIRAPEX) 1 mg tablet Take 2 tablets by mouth daily at bedtime. (Patient not taking: Reported on 09/05/2024) 180 tablet 1 famotidine (PEPCID) 20 mg tablet Take 1 tablet by mouth two times a day. (Patient not taking: Reported on 09/20/2024) 30 tablet 2 guaiFENesin (MUCINEX) 600 mg 12 hr tablet Take 1 tablet by mouth two times a day. (Patient not taking: Reported on 09/20/2024) 30 tablet 1 neomycin 500 mg tablet Take 1 tablet by mouth every 12 hours. (Patient not taking: Reported on 11/25/2023) metoclopramide HCl (REGLAN) 5 mg tablet Take 1 tablet by mouth every 6 hours for 30 days; administer 30 minutes before a meal. (Patient not taking: Reported on 09/20/2024) diclofenac sodium (VOLTAREN ARTHRITIS PAIN TOPICAL) Apply 2 g to affected area as needed (pain). (Patient not taking: Reported on 09/20/2024) traMADol (ULTRAM) 50 mg tablet Take 50 mg by mouth every 6 hours as needed for pain. (Patient not taking: Reported on 05/30/2024) albuterol HFA (PROVENTIL HFA, VENTOLIN HFA) 90 mcg/actuation inhaler Inhale 2 Puffs as instructed every 4 hours as needed for wheezing/shortness of breath. (Patient not taking: Reported on 09/20/2024) acetaminophen (TYLENOL 8 HOUR) 650 mg CR tablet Take 1 tablet by mouth every 8 hours as needed. (Patient not taking: Reported on 09/20/2024) No current facility-administered medications for this visit. Labs Hemoglobin A1C Date Value Ref Range Status 09/16/2024 6.7 (H) 4.3 - 5.6 % Final Comment: [place] [employer] guidelines indicate that patients with HgbA1c in the range 5.7-6.4% are at increased risk for development of diabetes, and intervention by lifestyle modification may be beneficial. HgbA1c greater or equal to 6.5% is considered diagnostic of diabetes. Albumin/Creat Ratio Date Value Ref Range Status 09/16/2024 80 (H) <30 mg/g Final Comment: Adult Male and Female Nephrotic Criteria: <30 mg/g is considered normal to mildly increased 30-300 mg/g is considered moderately increased >300 mg/g is considered severely increased KDIGO. (2013). KDIGO 2012 Clinical Practice Guideline for the Evaluation and Management of Chronic Kidney Disease. Official Journal of the International Society of Nephrology, 3(1), 1-150. Cholesterol, Total Date Value Ref Range Status 09/16/2024 115 <200 mg/dL Final Comment: <200 mg/dL, Desirable 200-239 mg/dL, Borderline high >239 mg/dL, High HDL Cholesterol Date Value Ref Range Status 09/16/2024 52 >39 mg/dL Final Comment: 40-59 mg/dL, Acceptable >59 mg/dL, High: Negative risk factor for coronary heart disease <40 mg/dL, Low: Positive risk factor for coronary heart disease LDL Cholesterol, Calculated Date Value Ref Range Status 09/16/2024 52 <100 mg/dL Final Comment: <100 mg/dL, Optimal 100-129 mg/dL, Near optimal/above optimal 130-159 mg/dL, Borderline high 160-189 mg/dL, High >189 mg/dL, Very high Secondary prevention optimal LDL Cholesterol levels are recommended to be <70 mg/dL LDL cholesterol is calculated using the Quiroz-NIH equation. Triglyceride Date Value Ref Range Status 09/16/2024 43 <150 mg/dL Final Comment: <150 mg/dL, Normal 150-199 mg/dL, Borderline high 200-499 mg/dL, High >499 mg/dL, Very high Hba1c 6.6% POC Vitals: 09/20/24 1438 BP: 140/70 BP Site: Right Arm BP Position: Sitting BP Cuff Size: Regular Adult Pulse: 70 Temp: 36.9 ?C (98.5 ?F) TempSrc: Temporal Artery SpO2: 98% Weight: 67.5 kg (148 lb 12.8 oz) Physical Exam GENERAL: Well nourished, obese, well hydrated, in no distress and oriented x 3. She is in wheel chair EYES: no thyroid eye signs, EOMI NECK: no tenderness and adenopathy THYROID: no thyromegaly LUNGS: Unlabored on room air HEART: regular rate and rhythm Abdomen: pump sites without lipodystrophy NEURO: normal strength, no tremor SKIN: facial hair noted OTHER: Acanthosis None Assessment and Plan This is a 79-year-old female with past medical history of type 1 diabetes mellitus on Medtronic 780G pump with guardian sensor, retinopathy, peripheral neuropathy and cardiovascular disease (CAD s/p PTCA) , hypertension, CVA, gastroparesis presenting for evaluation and treatment. She also has a history of rheumatoid arthritis Type 1 diabetes with NPDR, neuropathy, gastroparesis on 780 G medtronic insulin pump: -A1c 6.7% on 09/16/2024, stable from 6.6% in 05/2024, and 6.8% in 01/2024, improved from 7.8% in 08/2023, after she started following instructions for insulin dosing as instructed regarding gastroparesis -eGFR 92 in 08/2024 Interpretation of sensor data: no lows noted, she is running high post meal especially with dinner but also with other meals (likely due to taking half dose under the background of gastroparesis), but the levels are appropriately coming down again Plan: - No changes made to pump settings today - her sugars are improved and has no lows either, with impressive Hba1c I again discussed about giving insulin shots if pump malfunctions which she has been following since last visit after this was recommended- discussed basal insulin, and bolus as well as correction scale to be taken in pump failure. She has seen dietitian at [facility] and was given gastroparesis associated dietary changes Seen dietitian here, and diabetes education as well She would like to follow up with [facility] once again - she declined refills for Novolog insulin or infusion sets, today Recommended to continue calculate the carbs before each meal and take adequate insulin dose accordingly- can take half dose at the start of meal and the rest after completing the meal, especially if she has good appetite and intends to eat the whole meal. If appetite is low, advised to eat first and then take insulin according to the amount of carbs consumed. Discussed again to take correction dose of insulin for Blood glucose above 180 mg/dl- 1 unit for every 40 mg/dl above 180mg/dl -encouraged to continue lifestyle modifications with diet and consider exercise/physical activity as tolerated --sent baqsimi for hypoglycemia but reports it is too expensive, and does not want to buy- advised patient to avoid hypoglycemias as much as possible, and given she is on pump, hypoglycemia is less likely to be profound to need emergency glucagon, jayesh with ucrrent control indicating now lows # Hypertension -Currently antihypertensive regimen: Amlodipine 5 mg once daily - managed by PCP # Extensive cardiovascular history, including CAD and CVA -On Lipitor 40 mg once daily Lipid panel in 08/2024 revealing total cholesterol 115 mg/dL, LDL 52 mg/dL, triglycerides 43 mg/dL #Obesity Class II with serious comobidity -Lifestyle modifications and diabetic control discussed as above RTC in 3 months, as she reported she needs follow ups every 3 months due to ADS Medical Decision Making: Problems: Moderate: 2+ stable chronic illnesses Data: Unique test result(s) reviewed: 3+ Medical Decision Making Level: 4 - Moderate Eva Nielsen MD Endocrinology Associate Staff [facility] Endocrinology and Metabolism [place] [phone] Eva Nielsen MD 09/20/2024 2:58 PM Addendum Please continue same pump settings Allergies As of Date: 09/20/2024 Noted Allergy Reaction AMITRIPTYLINE 11/09/2012 14 - Other: See Comments Comments: Confusion, falls CYMBALTA (DULOXETINE) 06/07/2015 16 - Unknown DOXYCYCLINE 06/11/2011 8 - GI Upset Comments: headache EPHEDRINE 01/10/2005 14 - Other: See Comments Comments: tachycardia, but pt. states she still uses nose spray IODINE 07/29/2006 9 - Itching Comments: itching after prolonged use ISOLONE FORTE 04/06/2023 7 - Swelling LEVAQUIN (LEVOFLOXACIN) 05/26/2012 14 - Other: See Comments Comments: Achilles tendon problem LYRICA (PREGABALIN) 05/26/2012 14 - Other: See Comments Comments: Dizziness at 225mg twice daily OXYCODONE 01/21/2021 1 - Mental Status Change PERCOCET (OXYCODONE-ACETAMINOPHEN)05/29/2010 16 - Unknown SULFA (SULFONAMIDE ANTIBIOTICS) 01/10/2005 4 - Hives Comments: blisters AGGRENOX (ASPIRIN-DIPYRIDAMOLE) 12/18/2008 14 - Other: See Comments Comments: MIGRAINES AND VOMITING CEPHALEXIN (BULK) 05/12/2008 8 - GI Upset DURICEF (CEFADROXIL) 01/10/2005 4 - Hives NORTRIPTYLINE 02/11/2013 14 - Other: See Comments Comments: vertigo Date Reviewed: 09/20/2024 Reviewed by: Moriah Burks O[facility] - Fully Assessed Reason for Visit: Type 1 Diabetes [Other] Primary Visit Diagnosis:Diabetes mellitus type 1, with complication, 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 (HCC) [E10.8, Z96.41] Other Visit Diagnoses:Controlled type 1 diabetes with neuropathy (HCC) [E10.40] Type 1 diabetes mellitus with gastroparesis (HCC) [E10.43, K31.84] Dpu-qjvm-txik 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, associated with type 1 diabetes mellitus (HCC) [E10.3519] Prescriptions as of 09/20/2024 - omeprazole (PRILOSEC) 40 mg capsule Take 40 mg by mouth once daily. - esomeprazole (NEXIUM) 40 mg capsule Take 40 mg by mouth daily before breakfast. - benzonatate (TESSALON PERLE) 100 mg capsule Take 1 capsule by mouth three times a day as needed for cough. - sodium chloride (SALINE MIST) 0.65 % nasal spray Use 1 spray in the nose two times a day. - azelastine 0.1% nasal spray Use 1 spray in each nostril two times a day. - fluticasone (FLONASE) 50 mcg/actuation nasal spray Use 2 sprays in each nostril two times a day. Rinse mouth after use. - ribjzmqevsu-jeqiyvaft-cgewojnu (TRELEGY ELLIPTA) 100-62.5-25 mcg inhalation powder Inhale 1 puff as instructed once daily. - zolpidem (AMBIEN) 10 mg Take 1 tablet by mouth at bedtime as needed (insomnia) for up to 180 days. - insulin glargine (LANTUS SOLOSTAR U-100 INSULIN) 100 unit/mL (3 mL) Take 51 units once a day when in case of pump failure - clopidogrel (PLAVIX) 75 mg tablet Take 1 tablet by mouth once daily. - losartan (COZAAR) 100 mg tablet Take 1 tablet by mouth once daily. - hydrOXYchloroQUINE (PLAQUENIL) 200 mg tablet Take 1.5 tablets by mouth once daily. - pramipexole (MIRAPEX) 1 mg tablet Take 2 tablets by mouth daily at bedtime. - famotidine (PEPCID) 20 mg tablet Take 1 tablet by mouth two times a day. - guaiFENesin (MUCINEX) 600 mg 12 hr tablet Take 1 tablet by mouth two times a day. - Infusion Set for Insulin Pump (MEDTRONIC EXT INFUSION SET 23) iset 1 Each one time a week. - amLODIPine (NORVASC) 5 mg tablet Take 1 tablet by mouth once daily. - nystatin (MYCOSTATIN) powder Apply 1 application to affected area three times a day. - atorvastatin (LIPITOR) 40 mg tablet Take 1 tablet by mouth once daily. - neomycin 500 mg tablet Take 1 tablet by mouth every 12 hours. - metoclopramide HCl (REGLAN) 5 mg tablet Take 1 tablet by mouth every 6 hours for 30 days; administer 30 minutes before a meal. - Insulin Syringe-Needle U-100 (BD INSULIN SYRINGE ULTRA-FINE) 1 mL 31 gauge x 5/16 Use 4 syringes daily if insulin pump fails - blood sugar diagnostic (ACCU-CHEK GUIDE TEST STRIPS) test strip Use with blood glucose test upto four times daily - insulin lispro (HUMALOG U-100 INSULIN) 100 unit/mL injection as directed in Insulin pump up to 110 units daily. Dx E10.65 - diclofenac sodium (VOLTAREN ARTHRITIS PAIN TOPICAL) Apply 2 g to affected area as needed (pain). - lidocain-me.gvjhjgi-aybf-pmini 0.5-20-0.035-5 % ptmd Apply 1 Each to affected area as needed. - traMADol (ULTRAM) 50 mg tablet Take 50 mg by mouth every 6 hours as needed for pain. - albuterol HFA (PROVENTIL HFA, VENTOLIN HFA) 90 mcg/actuation inhaler Inhale 2 Puffs as instructed every 4 hours as needed for wheezing/shortness of breath. - WALKER ROLLATOR SEAT WITH 6 WHEELS - RED For ambulation - nitroglycerin (NITROLINGUAL) 400 mcg/spray spray one every 5 minutes x3 as needed - Bacillus coagulans/inulin (PROBIOTIC WITH PREBIOTIC ORAL) Take 1 capsule by mouth once daily. - aspirin 81 mg chewable tablet Take 1 tablet by mouth once daily. - Cholecalciferol, Vitamin D3, 125 mcg (5,000 unit) cap Take 1 capsule by mouth once daily. - Biotin 1 mg tab Take 1 tablet by mouth once daily. - multivitamin tablet Take 1 tablet by mouth once daily. - acetaminophen (TYLENOL 8 HOUR) 650 mg CR tablet Take 1 tablet by mouth every 8 hours as needed. Problem List As Of Date 09/20/2024 Noted Resolved Hyperlipidemia [E78.5] Hypertension [I10] Coronary artery disease involving [place]* 09/29/2019 Dizziness and Giddiness [R42] 04/30/2009 Postsurgical Percutaneous Transluminal Coronary* 04/30/2009 Mild intermittent asthma without complication [* 09/29/2019 Other psoriasis [L40.8] 09/29/2019 Disorder of bone and cartilage [M89.9, M94.9] 09/29/2019 ESOPHAGITIS [530.1] Diverticulosis of Colon (without Mention of Hem* 04/30/2009 External Hemorrhoids without Mention of Complic* 04/30/2009 Internal Hemorrhoids without Mention of Complic* 04/30/2009 Allergic Rhinitis, Cause Unspecified [J30.9] 01/13/2005 06/25/2015 Ingrowing Nail [L60.0] 03/20/2005 04/30/2009 Pain in Soft Tissues of Limb [M79.609] 03/20/2005 04/30/2009 CARPAL TUNNEL BILATERRAL [M13.149] 08/08/2005 09/29/2019 Nonspecific Abnormal Results of Liver Function *08/08/2005 04/30/2009 OVERWEIGHT [E66.9] 08/08/2005 04/30/2009 Dermatophytosis of Nail [B35.1] 09/04/2005 04/30/2009 Depression [F32.5] 12/18/2005 Anxiety state [F41.1] 12/18/2005 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] 03/23/2006 04/30/2009 Pain in Joint, Shoulder Region [M25.519] 05/22/2006 04/30/2009 Neck Sprain and Strain [S13.9XXA] 05/22/2006 04/30/2009 Onychia and Paronychia of Toe [L03.039] 08/11/2006 04/30/2009 Cellulitis and Abscess of Foot, except Toes [L0*08/24/2006 04/30/2009 Rheumatoid arthritis (HCC) [M06.9] 12/04/2006 Anemia, unspecified [D64.9] 12/04/2006 09/29/2019 Sleep apnea [G47.30] 03/08/2007 Acute Bronchitis [J20.9] 05/18/2008 04/30/2009 Tenosynovitis of Foot and Ankle [M65.979] 06/29/2008 04/30/2009 Vitamin deficiency [E56.9] 04/23/2009 Routine general medical examination at [facility]*04/30/2009 06/25/2015 Class: Chronic Routine gynecological examination [Z01.419] 04/30/2009 06/25/2015 Class: Chronic Diverticulosis of colon [K57.30] 04/30/2009 Cerebral infarction (HCC) [I63.9] 07/16/2009 Pain in joint, lower leg [M25.569] 01/21/2010 06/25/2015 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] 04/25/2010 Restless legs syndrome (RLS) [G25.81] 06/25/2010 Calcifying tendinitis of shoulder [M75.30] 07/09/2010 Venous insufficiency [I87.2] 09/08/2011 Thoracic or lumbosacral neuritis or radiculitis*03/01/2012 09/29/2019 Abnormality of gait [R26.9] 03/01/2012 06/25/2015 Vertigo [R42] 02/02/2013 06/25/2015 Cervicalgia [M54.2] 08/04/2014 Gait abnormality [R26.9] 08/04/2014 BPPV (benign paroxysmal positional vertigo) [H8*02/11/2015 09/29/2019 Obstructive sleep apnea syndrome [G47.33] 06/08/2015 Mixed hyperlipidemia [E78.2] 06/08/2015 GERD (gastroesophageal reflux disease) [K21.9] 08/09/2015 RLS (restless legs syndrome) [G25.81] 08/09/2015 Insomnia [G47.00] 08/09/2015 Vertigo [R42] 08/12/2015 09/29/2019 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/2015 Coronary artery disease [I25.10] 08/29/2015 Mild nonproliferative diabetic retinopathy of b*12/06/2018 Hypoglycemia unawareness in type 1 diabetes emre*01/18/2019 Other dysphagia [R13.19] 07/18/2019 09/29/2019 DKA (diabetic ketoacidoses) (HCC) [E11.10] 09/28/2019 10/18/2020 Asthma [J45.909] 09/29/2019 SHERLYN (acute kidney injury) (HCC) [N17.9] 09/29/2019 09/30/2019 H/O multiple allergies [Z88.9] 06/19/[address] [Z96.41] 07/10/2020 Type 1 diabetes mellitus with mild nonprolifera*10/18/2020 Type 1 diabetes mellitus with diabetic neuropat*10/18/2020 Class 2 severe obesity with serious comorbidity*10/18/2020 09/05/2024 Bilateral carotid artery stenosis [I65.23] 05/10/2021 Other instructions from your clinician: Please continue same pump settings Disposition: Return in about 3 months (around 12/21/2024). Follow-up and Disposition History for Encounter Date Provider Department Center 09/20/2024 [id number], SNIGDHA*CLAUDINEWSTR [facility] Encounter Status:Closed by EVA NIELSEN on 09/20/24 ALBUMIN/CREATININE RATIO, URINE Collect ed: 09/16/2024 10:41 AM Status: F Source: [facility] Order Comment: Specimen Type : URINE SPECIMEN Ordering Facility: [facility] Address: [address] [place] [address] TYPE CODE TESTS RESULT OUT OF RANGE REFERENCE UNITS LAB 2161-8(LOINC) Creat Ur-mCnc 58.1 20.0-300.0 m g/dL LAB 65671-0(LOINC ) Microalbumin Ur-mCnc 46.3 mg/L LAB 9318-7(LOINC) Albumin/Creat Ur 80 High <30 mg/g Result Comment: Adult Male a nd Female Nephrotic Criteria: <30 mg/g is considered normal to mildly increased 30-300 mg/g is considered moderately increased >300 mg/g is considered severely increased KDIGO. (2013). KDIGO 2012 Clinical Practice Guideline for the Evaluation and Management of Chronic Kidney Disease. Official Journal of the International Society of Nephrology, 3(1), 1-150. Performed By: #### UACR #### [facility] [place] [id number] [address] [place] [address] DEPRECATED HGB A1C BLD Collected: 09/16 7:42 AM Status: F Source: [facility] Comment: Specimen Type : BLOOD SPECIMEN Ordering Facility: [facility] Address: [address] [place] [address] TYPE CODE TESTS RESULT OUT OF RANGE REFERENCE UNITS LAB 4548-4(LOINC) HbA1c MFr Bld 6.7 High 4.3-5.6 % Result Comment: [place] [employer] guidelines indicate that patients with HgbA1c in the range 5.7-6.4% are at increased risk for development of diabetes, and intervention by lifestyle modification may be beneficial. HgbA1c greater or equal to 6.5% is considered diagnostic of diabetes. LAB 44465-4(LOINC) Est. average glucose Bld gHb Est-mCnc 146 mg/dL Result Comment: eAG: (Estima cindi average glucose) is a calculated value from HgbA1c and is printing sales representative of the average blood glucose level in the last 2-3 month period. Performed By: #### [id number] # ### [facility] IA [id number] [address] [place] [address] OF DIPAK COMP METAB 2000 PNL SERPL Collected: 7:42 AM Status: F Source: [facility] Comment: Specimen Type : BLOOD SPECIMEN Ordering Facility: [facility] Address: [address] [place] [address] TYPE CODE TESTS RESULT OUT OF RANGE REFERENCE UNITS LAB 2885-2(LOINC) Prot SerPl-mCnc 7.0 6.3-8.0 g/dL LAB 1751-7(LOINC) Albumin SerPl-mCnc 3.5 Low 3.9-4.9 g/dL LAB 45033-9(LOINC) Calcium SerPl-mCnc 9.4 8.5-10.2 mg/dL LAB 1975-2(LOINC) Bilirub SerPl-mCnc 0.6 0.2-1.3 mg/dL LAB 6768-6(LOINC) ALP SerPl-cCnc 175 High 34-123 U/L LAB 1920-8(LOINC) AST SerPl-cCnc 37 High 13-35 U/L LAB 1742-6(LOINC) ALT SerPl-cCnc 44 High 7-38 U/L LAB 2345-7(LOINC) Glucose SerPl-mCnc 345 High 74-99 mg/dL Result Comment: The [place] Diabetes Association (ADA) provides guidance for cutoff values for fasting glucose and random glucose. The ADA defines fasting as no caloric intake for at least 8 hours. Fasting plasma glucose results between 100 to 125 mg/dL indicate increased risk for diabetes (prediabetes). Fasting plasma glucose results greater than or equal to 126 mg/dL meet the criteria for diagnosis of diabetes. In the absence of unequivocal hyperglycemia, results should be confirmed by repeat testing. In a patient with classic symptoms of hyperglycemia or hyperglycemic crisis, random plasma glucose results greater than or equal to 200 mg/dL meet the criteria for diagnosis of diabetes. Reference: Standards of Medical Care in Diabetes 2016, [place] Diabetes Association. Diabetes Care. 2016.39(Suppl 1). LAB 3094-0(LOINC) BUN SerPl-mCnc 23 High 7-21 mg/ dL LAB 2160-0(LOINC) Creat SerPl-mCnc 0.59 0.58-0.96 mg/dL LAB 2951-2(LOINC) Sodium SerPl-sCnc 139 136-144 mmol/L LAB 2823-3(LOINC) Potassium SerPl-sCnc 4.6 3.7-5.1 mmol/L LAB 2075-0(LOINC) Chloride SerPl-sCnc 103 98-107 mmol/L LAB 2028-9(LOINC) CO2 SerPl-sCnc 23 22-30 mmo l/L LAB 62825-1(LOINC) Anion Gap SerPl-sCnc 13 8-15 mmol/L LAB 72687-6(LOINC) Creatinine + eGFR Pnl SerPlBld 92 >=60 mL/min/1 .73m??? Result Comment: Estimated Gl omerular Filtration Rate (eGFR) is calculated using the 2020 CKD-EPI creatinine equation. This equation utilizes serum creatinine, sex, and age as parameters. The creatinine assay has traceable calibration to isotope dilution-mass spectrometry. Refer to KDIGO guidelines for clinical interpretation. In patients with unstable renal function, e.g. those with acute kidney injury, the eGFR may not accurately reflect actual GFR. Performed By: #### 91457-0, 3016-3, 14427-8 #### [facility] CLIA [id number] [address] [place] [address] [place] [address] [place]IP[place] LIPID 1996 PNL SERPL Collected: 025 7:42 AM Status: F Source: [facility] Comment: Specimen Type : BLOOD SPECIMEN Ordering Facility: [facility] Address: [address] [place] [address] TYPE CODE TESTS RESULT OUT OF RANGE REFERENCE UNITS LAB 2092-3(LOINC) Cholest SerPl-mCnc 115 <200 mg/dL Result Comment: <200 mg/dL, Desirable 200-239 mg/dL, Borderline high >239 mg/dL, High LAB 2571-8(LOINC) Trigl SerPl-mCnc 43 <150 mg/dL Result Comment: <150 mg/dL, Normal 150-199 mg/dL, Borderline high 200-499 mg/dL, High >499 mg/dL, Very high LAB 5-9(LOINC) HDLc SerPl-mCnc 52 >39 mg/dL Result Comment: 40-59 mg/dL, Acceptable >59 mg/dL, High: Negative risk factor for coronary heart disease <40 mg/dL, Low: Positive risk factor for coronary heart disease LAB 2088-1(LOINC) LDLc SerPl-mCnc 52 <100 mg/dL Result Comment: <100 mg/dL, Optimal 100-129 mg/dL, Near optimal/above optimal 130-159 mg/dL, Borderline high 160-189 mg/dL, High >189 mg/dL, Very high Secondary prevention optimal LDL Cholesterol levels are recommended to be <70 mg/dL LDL cholesterol is calculated using the Quiroz-NIH equation. LAB 55451-0(LOINC) NonHDLc SerPl-mCnc 63 <130 mg/dL Result Comment: <130 mg/dL, Optimal 130-159 mg/dL, Near optimal/above optimal 160-189 mg/dL, Borderline high 190-219 mg/dL, High >219 mg/dL, Very high Secondary prevention optimal non HDL Cholesterol levels are recommended to be <100 mg/dL LAB 37583-9(LOINC) VLDLc SerPl Calc-mCnc 6 <30 mg/dL LAB 9830-1(LOINC) Cholest/HDLc SerPl 2.21 <5.10 LAB 13313-5(LOINC) LDLc/HDLc SerPl 1.00 <2.54 Result Comment: Reference: 1. National Cholesterol Education Program ATP III Guideline At-A-Glance Quick Desk Reference: National Heart, Lung, and Blood [place]. National Institutes of Health. 2001: NIH Publication No. 01-3305. 2. An International Atherosclerosis Society position paper: global recommendations for the management of dyslipidemia: executive summary, Atherosclerosis. 2014: 232(2):410-413. LAB FT FASTING TIME 12 hrs Performed By: #### 56832-0, 3016-3, 04460-5 #### [facility] CLIA [id number] [address] [place] [address] TSH SERPL-ACNC Collected: 7:42 AM Status: F Source: [facility] Order Comment: Specimen Type : BLOOD SPECIMEN Ordering Facility: [facility] Address: [address] [place] [address] TYPE CODE TESTS RESULT OUT OF RANGE REFERENCE UNITS LAB 3016-3([facility]) TSH SerPl-aCnc 2.610 0.270-4.200 mIU/L Performed By: #### 10796-9, 3016-3, 23945-3 #### [facility] CLIA [id number] [address] [place] [address] CT CHEST WITHOUT CONTRAST Observed: 08/19 10:10 AM Status: F Source: [facility] EXAMINATION: CT CHEST WITHOU T CONTRAST, 09/06/2024 10:10 AM EDT 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 COMPARISON: CT dated 08/14/2023. TECHNIQUE: CT scan of the chest was performed without IV contrast. CT dose reduction technique was used, including Automated Exposure Control. FINDINGS: The thyroid gland is grossly normal. There is no mass or pathologic adenopathy mediastinum or cinthia. The heart and great vessels are stable in size and configuration, with stable calcified plaque in the aorta and coronary arteries. The lungs are well-inflated and show no focal consolidation or effusion. There are mild to moderate changes of subpleural fibrosis, most pronounced in the lung bases. Both lung bases also show very mild bronchiectasis. No endobronchial or endotracheal lesions are seen. No masses or nodules are clearly seen in the lungs. Limited evaluation of the upper abdomen shows no interval change. Osseous structures are stable in appearance. IMPRESSION: No definite acute process in the lungs. There are mild to moderate changes of subpleural fibrosis and very mild bibasilar bronchiectasis. Other stable findings as above. PROGRESS Observed: 09/05/2024 10:19 AM Status: COMPLETED Source: [facility] HNO ID: [id number] Author: DARRYN ANDERSON MD Service: ? Author Type: Physician Type: Progress Notes Filed: 09/05/2024 18:19 Note Text: Mckayla Russo is a 79 year old female here for a Medicare wellness visit. Medicare Health Risk Assessment General Health Good Exercise: Minutes/Day 20 min Exercise: Days/Week 2 days Alcohol: Daily Use Never Alcohol: Drinks/Day Patient does not drink Alcohol: 6 or more drinks Never Feel off balance Yes Concerns: Teeth/Dentures Decline Concerns: Sexual function No Troubled by feelings None of the above Frequency: Eating healthy diet Nearly every day ADLs requiring help Walking; Driving Safety precautions in home/vehicle Yes Smoke, vape, chews tobacco No Difficulty hearing No Difficulty seeing No Current Providers Specialists: I have reviewed specialist-related care of the patient in the medical record. Medical/Family history review Reviewed and updated problem list, medical/surgical/family/social history, medications, and allergies. Opioid use review Opioid Medications (last 90 days) 06/07/2024 23:00 Opioid Medications tramadol HCl 50 mg q 6 H PRN ORAL (50 mg tab) Patient not taking as of 05/30/2024 10:19 AM Details Patient-reported Patient not taking Prescribed No opioid use on file in the last 90 days Does patient have risk factors for opioid abuse? No Pain overview Current pain concerns and treatment plan reviewed. Patient not currently experiencing pain. Anxiety/Depression screening RAHUL-7 Score: 0. Recommendation: no further intervention at this time Cognitive screening Mini Cog Score: 4 Cognitive screening reviewed and No further action needed (score 3-5). Functional Observation Was the patient's Timed Up AND Go test unsteady or >= 12 seconds? No Advance Care Planning Surrogate decision maker and/or advance care plan documented Measurements BP 151/71 Pulse 62 Resp 16 Ht 157.5 cm (5' 2.01) Wt 69.7 kg (153 lb 9.6 oz) SpO2 99% BMI 28.09 kg/m? Vision Screening: Follows with optometry/ophthalmology Assessment/Plan Medicare annual wellness visit, subsequent (Z00.00) - Counseled on healthy diet and regular exercise - Fall avoidance information provided - Personalized prevention plan provided Reason for Visit HPI Berkley is a 79-year-old female with a history of diabetes mellitus, gastroparesis, asthma, COPD, and a heart murmur, presenting for evaluation of a persistent cough and significant weight loss. Berkley reports a persistent cough and dyspnea that began on 01/03. She has been experiencing wheezing and pain with coughing. She denies fever but endorses chills and feeling cold frequently. She has a history of pneumonia and is scheduled for a CT scan and pulmonary function tests tomorrow. She has been using Trelegy for asthma management and denies using her CPAP machine. Berkley has also been experiencing significant weight loss, going from a size 18 to a petite small, which she attributes to gastroparesis diagnosed in August of the previous year. She follows a strict diet with multiple food restrictions and eats six small meals a day. She denies feeling weak and exercises twice a week for 20 minutes each session. Berkley has diabetes mellitus managed with a Medtronic 780 insulin pump. She reports that her blood glucose levels are usually well-controlled, with 82% of readings within the target range. However, she notes that her blood glucose levels increase to 200-275 mg/dL during coughing episodes. She has not experienced hypoglycemia for a year until a recent episode. Berkley has a history of a detached retina in one eye, which was surgically repaired. She denies macular degeneration and reports improved vision. She also has a heart murmur and underwent an echocardiogram in April, with normal results. She has neuropathy and has been using a rollator for ambulation. She has been in physical therapy for years for gait and balance issues. She denies any issues with her teeth and is not allowed to drive. Social History Tobacco Use Smoking status: Never Smokeless tobacco: Never Vaping Use Vaping status: Never Used Substance Use Topics Alcohol use: No Drug use: No Past medical history, appointments, medications, allergies reviewed. Pertinent Lab/Diagnostic Studies are reviewed and discussed today Current Outpatient Medications: omeprazole (PRILOSEC) 40 mg capsule esomeprazole (NEXIUM) 40 mg capsule amoxicillin-clavulanate potassium (AUGMENTIN) 875-125 mg per tablet benzonatate (TESSALON PERLE) 100 mg capsule sodium chloride (SALINE MIST) 0.65 % nasal spray azelastine 0.1% nasal spray fluticasone (FLONASE) 50 mcg/actuation nasal spray ggrcslcfjsq-npcxmwory-rjivpcay (TRELEGY ELLIPTA) 100-62.5-25 mcg inhalation powder zolpidem (AMBIEN) 10 mg insulin glargine (LANTUS SOLOSTAR U-100 INSULIN) 100 unit/mL (3 mL) clopidogrel (PLAVIX) 75 mg tablet losartan (COZAAR) 100 mg tablet hydrOXYchloroQUINE (PLAQUENIL) 200 mg tablet famotidine (PEPCID) 20 mg tablet guaiFENesin (MUCINEX) 600 mg 12 hr tablet Infusion Set for Insulin Pump (MEDTRONIC EXT INFUSION SET 23) iset amLODIPine (NORVASC) 5 mg tablet nystatin (MYCOSTATIN) powder atorvastatin (LIPITOR) 40 mg tablet metoclopramide HCl (REGLAN) 5 mg tablet Insulin Syringe-Needle U-100 (BD INSULIN SYRINGE ULTRA-FINE) 1 mL 31 gauge x 5/16 blood sugar diagnostic (ACCU-CHEK GUIDE TEST STRIPS) test strip insulin lispro (HUMALOG U-100 INSULIN) 100 unit/mL injection diclofenac sodium (VOLTAREN ARTHRITIS PAIN TOPICAL) lidocain-me.trrrtsj-znyb-klvqz 0.5-20-0.035-5 % ptmd albuterol HFA (PROVENTIL HFA, VENTOLIN HFA) 90 mcg/actuation inhaler WALKER ROLLATOR SEAT WITH 6 WHEELS - RED nitroglycerin (NITROLINGUAL) 400 mcg/spray spray Bacillus coagulans/inulin (PROBIOTIC WITH PREBIOTIC ORAL) aspirin 81 mg chewable tablet Cholecalciferol, Vitamin D3, 125 mcg (5,000 unit) cap multivitamin tablet acetaminophen (TYLENOL 8 HOUR) 650 mg CR tablet pramipexole (MIRAPEX) 1 mg tablet neomycin 500 mg tablet traMADol (ULTRAM) 50 mg tablet Biotin 1 mg tab Health Maintenance BP Controlled (<130/80) Urine Albumin:Creatinine Ratio LDL Cholesterol@ Review Of Systems Constitutional: (+) chills, (-) fever, (+) weight loss Respiratory: (+) cough, (+) wheezing, (+) shortness of breath Gastrointestinal: (+) constipation, (+) food intolerance Musculoskeletal: (+) difficulty ambulating Physical Exam BP 147/56 Pulse 72 Resp 16 Ht 157.5 cm (5' 2.01) Wt 69.7 kg (153 lb 9.6 oz) SpO2 99% BMI 28.09 kg/m? GENERAL: NAD, alert and oriented. SKIN: Unremarkable, no rash or skin lesions. HEAD: Normocephalic. EYES: PERRLA, EOMI, conjunctiva clear. NECK: Supple, no lymphadenopathy, normal thyroid, no carotid bruits. LUNGS: Clear to auscultation bilaterally, no wheezes/rhonchi/rales. HEART: Regular rate and rhythm, no murmurs. No ectopy. EXTREMITIES: Normal, no deformities, no skin discoloration, no edema. NEURO: Awake, alert and oriented x3, cranial nerves II-XII grossly intact, normal gait, no involuntary motions. (November) Echocardiogram: Normal - (04/08) Colonoscopy: Seven lesions resected - Allergy testing: Negative - Unspecified endoscopic evaluation: Negative Assessment and Plan 1. Medicare annual wellness visit, subsequent (Z00.00) Patient presents for a subsequent Medicare annual wellness visit. Discussed current health status, including recent weight loss, acute cough, and management of chronic conditions. - Reviewed and updated patient's medical history, including recent evaluations and treatments. - Scheduled follow-up appointment in 3-4 months to monitor lung condition and overall health status. 2. Weight loss (R63.4) Gastroparesis (K31.84) Significant weight loss of 57 pounds, attributed to gastroparesis diagnosed in August of last year. Patient is following dietary restrictions and meal planning to manage gastroparesis. - Continue current dietary management for gastroparesis. - Monitor weight and nutritional status. 3. Acute cough (R05.1) Persistent cough with associated chills, but no fever. Undergoing evaluation by [employer] division manager, including upcoming CT scan and pulmonary function tests. - Await results of CT scan and pulmonary function tests scheduled for tomorrow. - Follow-up appointment with [employer] division manager next Thursday to discuss results. 4. Type 1 diabetes mellitus with diabetic neuropathy ([facility]) (E10.40) Hypoglycemia unawareness in type 1 diabetes mellitus ([facility]) (E10.649) Type 1 diabetes managed with Medtronic 780 insulin pump. Reports episodes of hyperglycemia during coughing spells. Long-standing diabetic neuropathy. No recent episodes of hypoglycemia except one isolated incident. - Continue current insulin pump therapy. - Monitor blood glucose levels closely, especially during episodes of acute illness. 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 5. Mild intermittent asthma without complication ([facility]) (J45.20) Asthma exacerbation has led to the development of COPD. Currently managed with Trelegy inhaler. - Continue Trelegy inhaler as prescribed. - Monitor respiratory status and report any worsening symptoms. 6. Cerebral infarction, unspecified mechanism ([facility]) (I63.9) 7. Mild nonproliferative diabetic retinopathy of both eyes without macular edema associated with type 1 diabetes mellitus ([facility]) (E10.2843) History of retinal detachment in one eye, managed with surgery and laser treatments. No current signs of macular edema. - Continue regular ophthalmology follow-ups to monitor retinal health. 8. Essential hypertension (I10) Blood pressure readings generally within normal range, with occasional elevations during acute illness. - Continue current antihypertensive therapy. - Monitor blood pressure regularly. Voice recognition software was used to compose this office note. Please excuse any unintended typographical errors. Recording using Mechio software for draft documentation of the visit was discussed with the patient/authorized printing sales representative; all questions welcomed and answered. Patient/authorized printing sales representative agreed to proceed Darryn Anderson MD CNOV Observed: 09/05/2024 10:00 AM Status: COMPLETED Source: [facility] Office Visit (INTMWS) MCKAYLA RUSSO ([id number]) 1945 F Date Time Provider Department 09/05/24 10:00 AM DARRYN ANDERSON During your visit today, we recorded the following information about you: Pulse Respiration Blood pressure Weight 72/minute 16/minute 147/56 69.7 kg Height 1.575 m Darryn Anderson MD 09/05/2024 6:19 PM Signed Mckayla Russo is a 79 year old female here for a Medicare wellness visit. Medicare Health Risk Assessment General Health Good Exercise: Minutes/Day 20 min Exercise: Days/Week 2 days Alcohol: Daily Use Never Alcohol: Drinks/Day Patient does not drink Alcohol: 6 or more drinks Never Feel off balance Yes Concerns: Teeth/Dentures Decline Concerns: Sexual function No Troubled by feelings None of the above Frequency: Eating healthy diet Nearly every day ADLs requiring help Walking; Driving Safety precautions in home/vehicle Yes Smoke, vape, chews tobacco No Difficulty hearing No Difficulty seeing No Current Providers Specialists: I have reviewed specialist-related care of the patient in the medical record. Medical/Family history review Reviewed and updated problem list, medical/surgical/family/social history, medications, and allergies. Opioid use review Opioid Medications (last 90 days) 06/07/2024 23:00 Opioid Medications tramadol HCl 50 mg q 6 H PRN ORAL (50 mg tab) Patient not taking as of 05/30/2024 10:19 AM Details Patient-reported Patient not taking Prescribed No opioid use on file in the last 90 days Does patient have risk factors for opioid abuse? No Pain overview Current pain concerns and treatment plan reviewed. Patient not currently experiencing pain. Anxiety/Depression screening RAHUL-7 Score: 0. Recommendation: no further intervention at this time Cognitive screening Mini Cog Score: 4 Cognitive screening reviewed and No further action needed (score 3-5). Functional Observation Was the patient's Timed Up AND Go test unsteady or >= 12 seconds? No Advance Care Planning Surrogate decision maker and/or advance care plan documented Measurements BP 151/71 Pulse 62 Resp 16 Ht 157.5 cm (5' 2.01) Wt 69.7 kg (153 lb 9.6 oz) SpO2 99% BMI 28.09 kg/m? Vision Screening: Follows with optometry/ophthalmology Assessment/Plan Medicare annual wellness visit, subsequent (Z00.00) - Counseled on healthy diet and regular exercise - Fall avoidance information provided - Personalized prevention plan provided Reason for Visit DANUTA Gooden is a 79-year-old female with a history of diabetes mellitus, gastroparesis, asthma, COPD, and a heart murmur, presenting for evaluation of a persistent cough and significant weight loss. Berkley reports a persistent cough and dyspnea that began on 01/03. She has been experiencing wheezing and pain with coughing. She denies fever but endorses chills and feeling cold frequently. She has a history of pneumonia and is scheduled for a CT scan and pulmonary function tests tomorrow. She has been using Trelegy for asthma management and denies using her CPAP machine. Berkley has also been experiencing significant weight loss, going from a size 18 to a petite small, which she attributes to gastroparesis diagnosed in August of the previous year. She follows a strict diet with multiple food restrictions and eats six small meals a day. She denies feeling weak and exercises twice a week for 20 minutes each session. Berkley has diabetes mellitus managed with a G5tronic 780 insulin pump. She reports that her blood glucose levels are usually well-controlled, with 82% of readings within the target range. However, she notes that her blood glucose levels increase to 200-275 mg/dL during coughing episodes. She has not experienced hypoglycemia for a year until a recent episode. Berkley has a history of a detached retina in one eye, which was surgically repaired. She denies macular degeneration and reports improved vision. She also has a heart murmur and underwent an echocardiogram in April, with normal results. She has neuropathy and has been using a rollator for ambulation. She has been in physical therapy for years for gait and balance issues. She denies any issues with her teeth and is not allowed to drive. Social History Tobacco Use Smoking status: Never Smokeless tobacco: Never Vaping Use Vaping status: Never Used Substance Use Topics Alcohol use: No Drug use: No Past medical history, appointments, medications, allergies reviewed. Pertinent Lab/Diagnostic Studies are reviewed and discussed today Current Outpatient Medications: omeprazole (PRILOSEC) 40 mg capsule esomeprazole (NEXIUM) 40 mg capsule amoxicillin-clavulanate potassium (AUGMENTIN) 875-125 mg per tablet benzonatate (TESSALON PERLE) 100 mg capsule sodium chloride (SALINE MIST) 0.65 % nasal spray azelastine 0.1% nasal spray fluticasone (FLONASE) 50 mcg/actuation nasal spray ewxrfrzozij-ewetuygif-zgrytkdi (TRELEGY ELLIPTA) 100-62.5-25 mcg inhalation powder zolpidem (AMBIEN) 10 mg insulin glargine (LANTUS SOLOSTAR U-100 INSULIN) 100 unit/mL (3 mL) clopidogrel (PLAVIX) 75 mg tablet losartan (COZAAR) 100 mg tablet hydrOXYchloroQUINE (PLAQUENIL) 200 mg tablet famotidine (PEPCID) 20 mg tablet guaiFENesin (MUCINEX) 600 mg 12 hr tablet Infusion Set for Insulin Pump (Air2Web EXT INFUSION SET 23) iset amLODIPine (NORVASC) 5 mg tablet nystatin (MYCOSTATIN) powder atorvastatin (LIPITOR) 40 mg tablet metoclopramide HCl (REGLAN) 5 mg tablet Insulin Syringe-Needle U-100 (BD INSULIN SYRINGE ULTRA-FINE) 1 mL 31 gauge x 5/16 blood sugar diagnostic (ACCU-CHEK GUIDE TEST STRIPS) test strip insulin lispro (HUMALOG U-100 INSULIN) 100 unit/mL injection diclofenac sodium (VOLTAREN ARTHRITIS PAIN TOPICAL) lidocain-me.nnozcft-btik-vpkws 0.5-20-0.035-5 % ptmd albuterol HFA (PROVENTIL HFA, VENTOLIN HFA) 90 mcg/actuation inhaler WALKER ROLLATOR SEAT WITH 6 WHEELS - RED nitroglycerin (NITROLINGUAL) 400 mcg/spray spray Bacillus coagulans/inulin (PROBIOTIC WITH PREBIOTIC ORAL) aspirin 81 mg chewable tablet Cholecalciferol, Vitamin D3, 125 mcg (5,000 unit) cap multivitamin tablet acetaminophen (TYLENOL 8 HOUR) 650 mg CR tablet pramipexole (MIRAPEX) 1 mg tablet neomycin 500 mg tablet traMADol (ULTRAM) 50 mg tablet Biotin 1 mg tab Health Maintenance BP Controlled (<130/80) Urine Albumin:Creatinine Ratio LDL Cholesterol@ Review Of Systems Constitutional: (+) chills, (-) fever, (+) weight loss Respiratory: (+) cough, (+) wheezing, (+) shortness of breath Gastrointestinal: (+) constipation, (+) food intolerance Musculoskeletal: (+) difficulty ambulating Physical Exam BP 147/56 Pulse 72 Resp 16 Ht 157.5 cm (5' 2.01) Wt 69.7 kg (153 lb 9.6 oz) SpO2 99% BMI 28.09 kg/m? GENERAL: NAD, alert and oriented. SKIN: Unremarkable, no rash or skin lesions. HEAD: Normocephalic. EYES: PERRLA, EOMI, conjunctiva clear. NECK: Supple, no lymphadenopathy, normal thyroid, no carotid bruits. LUNGS: Clear to auscultation bilaterally, no wheezes/rhonchi/rales. HEART: Regular rate and rhythm, no murmurs. No ectopy. EXTREMITIES: Normal, no deformities, no skin discoloration, no edema. NEURO: Awake, alert and oriented x3, cranial nerves II-XII grossly intact, normal gait, no involuntary motions. (November) Echocardiogram: Normal - (04/08) Colonoscopy: Seven lesions resected - Allergy testing: Negative - Unspecified endoscopic evaluation: Negative Assessment and Plan 1. Medicare annual wellness visit, subsequent (.) Patient presents for a subsequent Medicare annual wellness visit. Discussed current health status, including recent weight loss, acute cough, and management of chronic conditions. - Reviewed and updated patient's medical history, including recent evaluations and treatments. - Scheduled follow-up appointment in 3-4 months to monitor lung condition and overall health status. 2. Weight loss (R63.4) Gastroparesis (K31.84) Significant weight loss of 57 pounds, attributed to gastroparesis diagnosed in August of last year. Patient is following dietary restrictions and meal planning to manage gastroparesis. - Continue current dietary management for gastroparesis. - Monitor weight and nutritional status. 3. Acute cough (R05.1) Persistent cough with associated chills, but no fever. Undergoing evaluation by [employer] manager, including upcoming CT scan and pulmonary function tests. - Await results of CT scan and pulmonary function tests scheduled for tomorrow. - Follow-up appointment with [employer] manager next Thursday to discuss results. 4. Type 1 diabetes mellitus with diabetic neuropathy (HCC) (E10.40) 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) (E10.649) Type 1 diabetes managed with G5tronic 780 insulin pump. Reports episodes of hyperglycemia during coughing spells. Long-standing diabetic neuropathy. No recent episodes of hypoglycemia except one isolated incident. - Continue current insulin pump therapy. - Monitor blood glucose levels closely, especially during episodes of acute illness. 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 5. Mild intermittent asthma without complication (HCC) (J45.20) Asthma exacerbation has led to the development of COPD. Currently managed with Trelegy inhaler. - Continue Trelegy inhaler as prescribed. - Monitor respiratory status and report any worsening symptoms. 6. Cerebral infarction, unspecified mechanism (HCC) (I63.9) 7. 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 No current signs of macular edema. - Continue regular ophthalmology follow-ups to monitor retinal health. 8. Essential hypertension (I10) Blood pressure readings generally within normal range, with occasional elevations during acute illness. - Continue current antihypertensive therapy. - Monitor blood pressure regularly. Voice recognition software was used to compose this office note. Please excuse any unintended typographical errors. Recording using Mechio software for draft documentation of the visit was discussed with the patient/authorized printing sales representative; all questions welcomed and answered. Patient/authorized printing sales representative agreed to proceed Darryn Alejandra MD, MD 09/05/2024 10:50 AM Signed We discussed your weight loss and gastroparesis: - Your significant weight loss is attributed to gastroparesis, which was diagnosed last year. This condition slows the movement of food through your digestive system and impacts your diabetes management. - Continue following your dietary plan of six small meals per day, with each meal limited to 1 to 1.5 cups of food. Avoid foods that worsen your symptoms, such as raspberries, cherries, lettuce, and broccoli. - Monitor your blood sugar levels closely, as gastroparesis can cause fluctuations. Your insulin pump settings may need adjustments based on your eating patterns. Continue working with your diabetes care team to optimize your pump use. We discussed your chronic cough and breathing issues: - You are undergoing further evaluation for your persistent cough and breathing difficulties. A CT scan and pulmonary function tests are scheduled for tomorrow, with follow-up results next Thursday. - Continue using Trilogy (inhaler) as prescribed to manage your breathing symptoms. This is part of your treatment for asthma and COPD. - If your symptoms worsen or you experience new concerning symptoms, please contact our office immediately. We discussed your diabetes: - Your diabetes is well-controlled overall, with 82% of your blood sugar readings within range. However, coughing episodes have caused temporary spikes in your blood sugar levels. - Continue using your Medtronic 780 insulin pump and monitor your blood sugar levels regularly. Report any persistent issues with the pump or significant changes in your blood sugar patterns. We discussed your mobility and physical activity: - You are using a rollator for support and have made progress in walking more independently. Continue your current level of physical activity, including dancing with your dog and walking as tolerated. - If you experience worsening balance or mobility issues, we can consider a referral for physical therapy. We discussed your heart murmur: - Your heart murmur has been stable, and your most recent echocardiogram in November showed no concerning findings. No further action is needed at this time. We discussed your eye health: - You have a history of retinal detachment in one eye, which was successfully treated with surgery. Continue seeing your eye doctor annually for monitoring. Follow-Up: - I will see you again in 3-4 months to review your lung health and overall progress. - Please follow up with your lung specialist as scheduled and complete all recommended tests. - If you have any new or worsening symptoms, please contact our office. Allergies As of Date: 09/05/2024 Noted Allergy Reaction AMITRIPTYLINE 11/09/2012 14 - Other: See Comments Comments: Confusion, falls CYMBALTA (DULOXETINE) 06/07/2015 16 - Unknown DOXYCYCLINE 06/11/2011 8 - GI Upset Comments: headache EPHEDRINE 01/10/2005 14 - Other: See Comments Comments: tachycardia, but pt. states she still uses nose spray IODINE 07/29/2006 9 - Itching Comments: itching after prolonged use ISOLONE FORTE 04/06/2023 7 - Swelling LEVAQUIN (LEVOFLOXACIN) 05/26/2012 14 - Other: See Comments Comments: Achilles tendon problem LYRICA (PREGABALIN) 05/26/2012 14 - Other: See Comments Comments: Dizziness at 225mg twice daily OXYCODONE 01/21/2021 1 - Mental Status Change PERCOCET (OXYCODONE-ACETAMINOPHEN)05/29/2010 16 - Unknown SULFA (SULFONAMIDE ANTIBIOTICS) 01/10/2005 4 - Hives Comments: blisters AGGRENOX (ASPIRIN-DIPYRIDAMOLE) 12/18/2008 14 - Other: See Comments Comments: MIGRAINES AND VOMITING CEPHALEXIN (BULK) 05/12/2008 8 - GI Upset DURICEF (CEFADROXIL) 01/10/2005 4 - Hives NORTRIPTYLINE 02/11/2013 14 - Other: See Comments Comments: vertigo Date Reviewed: 09/05/2024 Reviewed by: Akil Gilbert MA - Fully Assessed Reason for Visit: Medicare Wellness Exam [4060] Primary Visit Diagnosis:Medicare annual wellness visit, subsequent [Z00.00] Other Visit Diagnoses:Weight loss [R63.4] Acute cough [R05.1] Type 1 diabetes mellitus with diabetic neuropathy ([facility]) [E10.40] Mild intermittent asthma without complication ([facility]) [J45.20] Cerebral infarction, unspecified mechanism ([facility]) [I63.9] Mild nonproliferative diabetic retinopathy of both eyes without macular edema associated with type 1 diabetes mellitus ([facility]) [E10.3293] 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 - esomeprazole (NEXIUM) 40 mg capsule Take 40 mg by mouth daily before breakfast. - amoxicillin-clavulanate potassium (AUGMENTIN) 875-125 mg per tablet Take 1 tablet by mouth two times a day for 10 days. - benzonatate (TESSALON PERLE) 100 mg capsule Take 1 capsule by mouth three times a day as needed for cough. - sodium chloride (SALINE MIST) 0.65 % nasal spray Use 1 spray in the nose two times a day. - azelastine 0.1% nasal spray Use 1 spray in each nostril two times a day. - fluticasone (FLONASE) 50 mcg/actuation nasal spray Use 2 sprays in each nostril two times a day. Rinse mouth after use. - ztsoclhlnxl-zcpwcuajb-uxbopnsi (TRELEGY ELLIPTA) 100-62.5-25 mcg inhalation powder Inhale 1 puff as instructed once daily. - zolpidem (AMBIEN) 10 mg Take 1 tablet by mouth at bedtime as needed (insomnia) for up to 180 days. - insulin glargine (LANTUS SOLOSTAR U-100 INSULIN) 100 unit/mL (3 mL) Take 51 units once a day when in case of pump failure - clopidogrel (PLAVIX) 75 mg tablet Take 1 tablet by mouth once daily. - losartan (COZAAR) 100 mg tablet Take 1 tablet by mouth once daily. - hydrOXYchloroQUINE (PLAQUENIL) 200 mg tablet Take 1.5 tablets by mouth once daily. - pramipexole (MIRAPEX) 1 mg tablet Take 2 tablets by mouth daily at bedtime. - famotidine (PEPCID) 20 mg tablet Take 1 tablet by mouth two times a day. - guaiFENesin (MUCINEX) 600 mg 12 hr tablet Take 1 tablet by mouth two times a day. - Infusion Set for Insulin Pump (MEDTRONIC EXT INFUSION SET 23) iset 1 Each one time a week. - amLODIPine (NORVASC) 5 mg tablet Take 1 tablet by mouth once daily. - nystatin (MYCOSTATIN) powder Apply 1 application to affected area three times a day. - atorvastatin (LIPITOR) 40 mg tablet Take 1 tablet by mouth once daily. - neomycin 500 mg tablet Take 1 tablet by mouth every 12 hours. - metoclopramide HCl (REGLAN) 5 mg tablet Take 1 tablet by mouth every 6 hours for 30 days; administer 30 minutes before a meal. - Insulin Syringe-Needle U-100 (BD INSULIN SYRINGE ULTRA-FINE) 1 mL 31 gauge x 5/16 Use 4 syringes daily if insulin pump fails - blood sugar diagnostic (ACCU-CHEK GUIDE TEST STRIPS) test strip Use with blood glucose test upto four times daily - insulin lispro (HUMALOG U-100 INSULIN) 100 unit/mL injection as directed in Insulin pump up to 110 units daily. Dx E10.65 - diclofenac sodium (VOLTAREN ARTHRITIS PAIN TOPICAL) Apply 2 g to affected area as needed (pain). - lidocain-me.cnunugo-ainb-wbsuc 0.5-20-0.035-5 % ptmd Apply 1 Each to affected area as needed. - traMADol (ULTRAM) 50 mg tablet Take 50 mg by mouth every 6 hours as needed for pain. - albuterol HFA (PROVENTIL HFA, VENTOLIN HFA) 90 mcg/actuation inhaler Inhale 2 Puffs as instructed every 4 hours as needed for wheezing/shortness of breath. - WALKER ROLLATOR SEAT WITH 6 WHEELS - RED For ambulation - nitroglycerin (NITROLINGUAL) 400 mcg/spray spray one every 5 minutes x3 as needed - Bacillus coagulans/inulin (PROBIOTIC WITH PREBIOTIC ORAL) Take 1 capsule by mouth once daily. - aspirin 81 mg chewable tablet Take 1 tablet by mouth once daily. - Cholecalciferol, Vitamin D3, 125 mcg (5,000 unit) cap Take 1 capsule by mouth once daily. - Biotin 1 mg tab Take 1 tablet by mouth once daily. - multivitamin tablet Take 1 tablet by mouth once daily. - acetaminophen (TYLENOL 8 HOUR) 650 mg CR tablet Take 1 tablet by mouth every 8 hours as needed. Problem List As Of Date 09/05/2024 Noted Resolved Hyperlipidemia [E78.5] Hypertension [I10] Coronary artery disease involving [place]* 09/29/2019 Dizziness and Giddiness [R42] 04/30/2009 Postsurgical Percutaneous Transluminal Coronary* 04/30/2009 Mild intermittent asthma without complication [* 09/29/2019 Other psoriasis [L40.8] 09/29/2019 Disorder of bone and cartilage [M89.9, M94.9] 09/29/2019 ESOPHAGITIS [530.1] Diverticulosis of Colon (without Mention of Hem* 04/30/2009 External Hemorrhoids without Mention of Complic* 04/30/2009 Internal Hemorrhoids without Mention of Complic* 04/30/2009 Allergic Rhinitis, Cause Unspecified [J30.9] 01/13/2005 06/25/2015 Ingrowing Nail [L60.0] 03/20/2005 04/30/2009 Pain in Soft Tissues of Limb [M79.609] 03/20/2005 04/30/2009 CARPAL TUNNEL BILATERRAL [M13.149] 08/08/2005 09/29/2019 Nonspecific Abnormal Results of Liver Function *08/08/2005 04/30/2009 OVERWEIGHT [E66.9] 08/08/2005 04/30/2009 Dermatophytosis of Nail [B35.1] 09/04/2005 04/30/2009 Depression [F32.5] 12/18/2005 Anxiety state [F41.1] 12/18/2005 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] 03/23/2006 04/30/2009 Pain in Joint, Shoulder Region [M25.519] 05/22/2006 04/30/2009 Neck Sprain and Strain [S13.9XXA] 05/22/2006 04/30/2009 Onychia and Paronychia of Toe [L03.039] 08/11/2006 04/30/2009 Cellulitis and Abscess of Foot, except Toes [L0*08/24/2006 04/30/2009 Rheumatoid arthritis (HCC) [M06.9] 12/04/2006 Anemia, unspecified [D64.9] 12/04/2006 09/29/2019 Sleep apnea [G47.30] 03/08/2007 Acute Bronchitis [J20.9] 05/18/2008 04/30/2009 Tenosynovitis of Foot and Ankle [M65.979] 06/29/2008 04/30/2009 Vitamin deficiency [E56.9] 04/23/2009 Routine general medical examination at [facility]*04/30/2009 06/25/2015 Class: Chronic Routine gynecological examination [Z01.419] 04/30/2009 06/25/2015 Class: Chronic Diverticulosis of colon [K57.30] 04/30/2009 Cerebral infarction (HCC) [I63.9] 07/16/2009 Pain in joint, lower leg [M25.569] 01/21/2010 06/25/2015 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] 04/25/2010 Restless legs syndrome (RLS) [G25.81] 06/25/2010 Calcifying tendinitis of shoulder [M75.30] 07/09/2010 Venous insufficiency [I87.2] 09/08/2011 Thoracic or lumbosacral neuritis or radiculitis*03/01/2012 09/29/2019 Abnormality of gait [R26.9] 03/01/2012 06/25/2015 Vertigo [R42] 02/02/2013 06/25/2015 Cervicalgia [M54.2] 08/04/2014 Gait abnormality [R26.9] 08/04/2014 BPPV (benign paroxysmal positional vertigo) [H8*02/11/2015 09/29/2019 Obstructive sleep apnea syndrome [G47.33] 06/08/2015 Mixed hyperlipidemia [E78.2] 06/08/2015 GERD (gastroesophageal reflux disease) [K21.9] 08/09/2015 RLS (restless legs syndrome) [G25.81] 08/09/2015 Insomnia [G47.00] 08/09/2015 Vertigo [R42] 08/12/2015 09/29/2019 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/2015 Coronary artery disease [I25.10] 08/29/2015 Mild nonproliferative diabetic retinopathy of b*12/06/2018 Hypoglycemia unawareness in type 1 diabetes emre*01/18/2019 Other dysphagia [R13.19] 07/18/2019 09/29/2019 DKA (diabetic ketoacidoses) ([facility]) [E11.10] 09/28/2019 10/18/2020 Asthma [J45.909] 09/29/2019 SHERLYN (acute kidney injury) ([facility]) [N17.9] 09/29/2019 09/30/2019 H/O multiple allergies [Z88.9] 06/19/[address] [Z96.41] 07/10/2020 Type 1 diabetes mellitus with mild nonprolifera*10/18/2020 Type 1 diabetes mellitus with diabetic neuropat*10/18/2020 Class 2 severe obesity with serious comorbidity*10/18/2020 09/05/2024 Bilateral carotid artery stenosis [I65.23] 05/10/2021 Other instructions from your clinician: We discussed your weight loss and gastroparesis: - Your significant weight loss is attributed to gastroparesis, which was diagnosed last year. This condition slows the movement of food through your digestive system and impacts your diabetes management. - Continue following your dietary plan of six small meals per day, with each meal limited to 1 to 1.5 cups of food. Avoid foods that worsen your symptoms, such as raspberries, cherries, lettuce, and broccoli. - Monitor your blood sugar levels closely, as gastroparesis can cause fluctuations. Your insulin pump settings may need adjustments based on your eating patterns. Continue working with your diabetes care team to optimize your pump use. We discussed your chronic cough and breathing issues: - You are undergoing further evaluation for your persistent cough and breathing difficulties. A CT scan and pulmonary function tests are scheduled for tomorrow, with follow-up results next Thursday. - Continue using Trilogy (inhaler) as prescribed to manage your breathing symptoms. This is part of your treatment for asthma and COPD. - If your symptoms worsen or you experience new concerning symptoms, please contact our office immediately. We discussed your diabetes: - Your diabetes is well-controlled overall, with 82% of your blood sugar readings within range. However, coughing episodes have caused temporary spikes in your blood sugar levels. - Continue using your Medtronic 780 insulin pump and monitor your blood sugar levels regularly. Report any persistent issues with the pump or significant changes in your blood sugar patterns. We discussed your mobility and physical activity: - You are using a rollator for support and have made progress in walking more independently. Continue your current level of physical activity, including dancing with your dog and walking as tolerated. - If you experience worsening balance or mobility issues, we can consider a referral for physical therapy. We discussed your heart murmur: - Your heart murmur has been stable, and your most recent echocardiogram in November showed no concerning findings. No further action is needed at this time. We discussed your eye health: - You have a history of retinal detachment in one eye, which was successfully treated with surgery. Continue seeing your eye doctor annually for monitoring. Follow-Up: - I will see you again in 3-4 months to review your lung health and overall progress. - Please follow up with your lung specialist as scheduled and complete all recommended tests. - If you have any new or worsening symptoms, please contact our office. Level of Service: OFFICE/OUTPATIENT ESTABLISHED MOD [facility] 30 MIN [44262] Additional E/M codes: VISIT CPLX INHERENT EANDM ASSOC WITH MED * LOS History for Encounter Level of Service: PPPS, SUBSEQ VISIT[G0439] LOS modifiers: SIGNIFICANT SPRTLY IDABLE EVAL AND MGMT ON SAME DAY BY SAME PROV[25] Date AND Time: 09-05-2024 6:19 PM Recorded by User: DARRYN ANDERSON Level of Service: PPPS, SUBSEQ VISIT[G0439] Date AND Time: 09-05-2024 6:19 PM Recorded by User: DARRYN ANDERSON Encounter Status:Closed by DARRYN ANDERSON on 09/05/24 XR CHEST 2V FRONTAL/LAT Observed: 2024 8:55 AM Status: F Source: [facility] * * *Final Report* * * DATE OF EXAM: Aug 29 2024 8:55AM WOX [id number] - XR CHEST 2V FRONTAL/LAT / PROCEDURE REASON: Community acquired pneumonia, unspecified laterality * * * * Physician Interpretation * * * * EXAMINATION: CHEST RADIOGRAPH (2 VIEW FRONTAL and LATERAL) CLINICAL HISTORY: Community acquired pneumonia, unspecified laterality MQ: [id number] EXAM DATE/TIME: 08/29/2024 8:55 AM COMPARISON: Chest radiograph(s) dated 01/25/2024 RESULT: Lines, tubes, and devices: None. Lungs and pleura: Stable reticulation of the interstitial markings in a peripheral and basilar predominance compatible with mild underlying interstitial lung disease. No consolidation. No lung mass. No pleural effusion. No pneumothorax. Cardiomediastinal silhouette: Stay cardiomediastinal silhouette. Bones and soft tissues: Degenerative changes are present within the thoracic spine. IMPRESSION: Stable findings of interstitial lung disease. No radiographic evidence of new airspace consolidation. Rolfer: JOAQUIN Transcribe Date/Time: Aug 29 2024 8:56A Dictated by : CHASTITY JONAS MD This examination was interpreted and the report reviewed and electronically signed by: CHASTITY JONAS MD on Aug 29 2024 8:58AM EST [id number] PROGRESS Observed: 08/29/2024 8:46 AM Status: COMPLETED Source: [facility] HNO ID: [id number] Author: SHOBHA VINES APRN.[employer] Service: ? Author Type: Nurse Practitioner Type: Progress Notes Filed: 08/29/2024 08:55 Note Text: [facility] NOTE Subjective Mckayla Russo is a 79 year old year old who presents to express care today with complaint of 1 week of worsening sinus pressure, cough, wheezing, shortness of breath and intermittent illness over the past 9 months. Numerous antibiotic allergies and was given Amoxicillin x 2 per her report in the past 9 months. Last CXR reviewed and WNL 01/2024, she states she receives CXR's at least every 6 months due to history of ground Glass Lungs yet unsure if she had COVID 19 in the past. Worsening cough this week. Is followed by Pulmonology and recently Stopped taking Trelegy. States she does not use Albuterol because it makes me shake. States she had second hand smoking most of her life growing up as a child. Denies headaches, fever, sore throat, chest pains, Nausea, vomiting, changes in bowel or bladder or skin rashes. No current medication treatments. Aside from symptoms as described above, patient has no other complaints at this time. HPI: see above Review of Systems Constitutional: Positive for chills and fatigue. Negative for fever. HENT: Positive for congestion, postnasal drip and sinus pressure. Negative for ear pain, sore throat and trouble swallowing. Eyes: Negative for pain, discharge, redness and itching. Respiratory: Positive for cough, chest tightness, shortness of breath and wheezing. Cardiovascular: Negative for chest pain, palpitations and leg swelling. Gastrointestinal: Negative for abdominal pain, diarrhea, nausea and vomiting. Genitourinary: Negative for dysuria, frequency and urgency. Musculoskeletal: Positive for myalgias. Skin: Negative for rash. Neurological: Negative for headaches. Hematological: Negative for adenopathy. ALLERGIES Allergen Reactions Amitriptyline Other: See Comments Confusion, falls Cymbalta [Duloxetin* Unknown Doxycycline GI Upset headache Ephedrine Other: See Comments tachycardia, but pt. states she still uses nose spray Iodine Itching itching after prolonged use Isolone Forte Swelling Levaquin [Levofloxa* Other: See Comments Achilles tendon problem Lyrica [Pregabalin] Other: See Comments Dizziness at 225mg twice daily Oxycodone Mental Status Change Percocet [Oxycodone* Unknown Sulfa (Sulfonamide * Hives blisters Aggrenox [Aspirin-D* Other: See Comments MIGRAINES AND VOMITING Cephalexin (Bulk) GI Upset Duricef [Cefadroxil] Hives Nortriptyline Other: See Comments vertigo Current Outpatient Medications on File Prior to Visit Medication Sig zolpidem (AMBIEN) 10 mg Take 1 tablet by mouth at bedtime as needed (insomnia) for up to 180 days. insulin glargine (LANTUS SOLOSTAR U-100 INSULIN) 100 unit/mL (3 mL) Take 51 units once a day when in case of pump failure clopidogrel (PLAVIX) 75 mg tablet Take 1 tablet by mouth once daily. losartan (COZAAR) 100 mg tablet Take 1 tablet by mouth once daily. hydrOXYchloroQUINE (PLAQUENIL) 200 mg tablet Take 1.5 tablets by mouth once daily. pramipexole (MIRAPEX) 1 mg tablet Take 2 tablets by mouth daily at bedtime. famotidine (PEPCID) 20 mg tablet Take 1 tablet by mouth two times a day. guaiFENesin (MUCINEX) 600 mg 12 hr tablet Take 1 tablet by mouth two times a day. Infusion Set for Insulin Pump (Air2Web EXT INFUSION SET 23) iset 1 Each one time a week. amLODIPine (NORVASC) 5 mg tablet Take 1 tablet by mouth once daily. nystatin (MYCOSTATIN) powder Apply 1 application to affected area three times a day. atorvastatin (LIPITOR) 40 mg tablet Take 1 tablet by mouth once daily. metoclopramide HCl (REGLAN) 5 mg tablet Take 1 tablet by mouth every 6 hours for 30 days; administer 30 minutes before a meal. Insulin Syringe-Needle U-100 (BD INSULIN SYRINGE ULTRA-FINE) 1 mL 31 gauge x 5/16 Use 4 syringes daily if insulin pump fails blood sugar diagnostic (ACCU-CHEK GUIDE TEST STRIPS) test strip Use with blood glucose test upto four times daily insulin lispro (HUMALOG U-100 INSULIN) 100 unit/mL injection as directed in Insulin pump up to 110 units daily. Dx E10.65 diclofenac sodium (VOLTAREN ARTHRITIS PAIN TOPICAL) Apply 2 g to affected area as needed (pain). lidocain-me.kldocvs-jxjn-pdqiq 0.5-20-0.035-5 % ptmd Apply 1 Each to affected area as needed. albuterol HFA (PROVENTIL HFA, VENTOLIN HFA) 90 mcg/actuation inhaler Inhale 2 Puffs as instructed every 4 hours as needed for wheezing/shortness of breath. WALKER ROLLATOR SEAT WITH 6 WHEELS - RED For ambulation nitroglycerin (NITROLINGUAL) 400 mcg/spray spray one every 5 minutes x3 as needed Bacillus coagulans/inulin (PROBIOTIC WITH PREBIOTIC ORAL) Take 1 capsule by mouth once daily. aspirin 81 mg chewable tablet Take 1 tablet by mouth once daily. Cholecalciferol, Vitamin D3, 125 mcg (5,000 unit) cap Take 1 capsule by mouth once daily. Biotin 1 mg tab Take 1 tablet by mouth once daily. multivitamin tablet Take 1 tablet by mouth once daily. acetaminophen (TYLENOL 8 HOUR) 650 mg CR tablet Take 1 tablet by mouth every 8 hours as needed. neomycin 500 mg tablet Take 1 tablet by mouth every 12 hours. (Patient not taking: Reported on 11/25/2023) traMADol (ULTRAM) 50 mg tablet Take 50 mg by mouth every 6 hours as needed for pain. (Patient not taking: Reported on 05/30/2024) No current facility-administered medications on file prior to visit. 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[facility]) Hypoglycemia Unawareness in Type 1 Diabetes Mellitus ([facility]) Asthma ([facility]) H/O Multiple Allergies Insulin Pump in Place 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 Physical Exam Vitals and nursing note reviewed. Constitutional: General: She is not in acute distress. Appearance: Normal appearance. She is not ill-appearing or toxic-appearing. HENT: Head: Normocephalic and atraumatic. Right Ear: Ear canal and external ear normal. Left Ear: Ear canal and external ear normal. Ears: Comments: TM's slightly bulging with clear fluid Nose: Congestion (mild mucosal edema) and rhinorrhea (clear fluid in nares) present. Right Turbinates: Swollen. Left Turbinates: Swollen. Right Sinus: Maxillary sinus tenderness and frontal sinus tenderness present. Left Sinus: Maxillary sinus tenderness and frontal sinus tenderness present. Mouth/Throat: Mouth: Mucous membranes are moist. Pharynx: Oropharynx is clear. Posterior oropharyngeal erythema (mild with clear fluid) present. No pharyngeal swelling or oropharyngeal exudate. Eyes: Extraocular Movements: Extraocular movements intact. Conjunctiva/sclera: Conjunctivae normal. Pupils: Pupils are equal, round, and reactive to light. Cardiovascular: Rate and Rhythm: Normal rate and regular rhythm. Pulses: Normal pulses. Heart sounds: Normal heart sounds. Pulmonary: Effort: Pulmonary effort is normal. Breath sounds: Wheezing (throughtou all hurt does not clear with coughing and deep breathing) present. No rhonchi. Abdominal: General: Bowel sounds are normal. Palpations: Abdomen is soft. Musculoskeletal: Cervical back: Normal range of motion and neck supple. No tenderness. Lymphadenopathy: Cervical: No cervical adenopathy. Neurological: Mental Status: She is alert. Assessment/Plan 1. Community acquired pneumonia, unspecified laterality (Primary) - amoxicillin-clavulanate potassium (AUGMENTIN) 875-125 mg per tablet; Take 1 tablet by mouth two times a day for 10 days. Dispense: 20 tablet; Refill: 0 - XR CHEST 2V FRONTAL/LAT; Future - benzonatate (TESSALON PERLE) 100 mg capsule; Take 1 capsule by mouth three times a day as needed for cough. Dispense: 21 capsule; Refill: 0 - vreeajeaeqb-ejagicxcb-aatnbhvl (TRELEGY ELLIPTA) 100-62.5-25 mcg inhalation powder; Inhale 1 puff as instructed once daily. Dispense: 60 each; Refill: 0 2. Bacterial sinusitis 3. Seasonal allergic rhinitis due to other allergic trigger - sodium chloride (SALINE MIST) 0.65 % nasal spray; Use 1 spray in the nose two times a day. Dispense: 88 mL; Refill: 2 - azelastine 0.1% nasal spray; Use 1 spray in each nostril two times a day. Dispense: 30 mL; Refill: 2 - fluticasone (FLONASE) 50 mcg/actuation nasal spray; Use 2 sprays in each nostril two times a day. Rinse mouth after use. Dispense: 16 g; Refill: 2 Patient advised to drink fluids, get rest and take all meds as prescribed. Patient given educational materials - see instructions. Discussed use, benefit, and side effects of prescribed medications. All questions answered. Patient advised to follow up with PCP or PULMONOLOGY in one week, or sooner if symptoms worsen or persist. If symptoms become severe- GO TO ED. Patient verbalized understanding and agreeable with treatment plan. Shobha Vines APRN [facility] 08/29/2024 8:46 AM PROGRESS Observed: 08/29/2024 8:40 AM Status: COMPLETED Source: [facility] HNO ID: [id number] Author: NEGRITO SAMUEL Tech Service: ? Author Type: Technologist Type: Progress Notes Filed: 08/29/2024 08:55 Note Text: Radiology Service Progress Note PATIENT NAME: Mckayla Russo DATE OF SERVICE: August 29, 2024 TIME: 8:46 AM PATIENT IDENTITY VERIFICATION COMPLETED USING TWO (2) IDENTIFIERS: Name and Date of confirmed by patient verbally. FALL SCREENING: Has the patient had 2 falls in the last year or 1 fall with injury or currently using an Ambulatory Assistive Device (Walker, Cane, Wheelchair, Crutches, etc.)? No PATIENT GENDER DATA: Assigned female at . status: : No status: NO. PATIENT RELEVANT IMPLANT DATA REVIEWED: Not Applicable PATIENT PRESENTS WITH AN IMPLANTABLE OR ATTACHED AUTOMOTIVE DISMANTLER: No RADIOLOGY DEPARTMENT: General X-ray: Exam(s) Completed: Chest X-Ray PERIPHERAL IV DATA: Not applicable SIGNED BY: Kai Early August 29, 2024 8:46 AM CNOV Observed: 08/29/2024 7:45 AM Status: COMPLETED Source: [facility] Office Visit ([facility]) RUSSOJOY OCASIOMCKAYLA ([id number]) 1945 F Date Time Provider Department 08/29/24 7:45 AM SHOBHA VINES [facility] During your visit today, we recorded the following information about you: Temperature Pulse Respiration Blood pressure 97.3 degrees 80/minute 18/minute 122/64 Weight 69 kg Shobha Vines APRN.[facility] 08/29/2024 8:34 AM Signed [facility] PATIENT INFO ALLERGIC RHINITIS OVERVIEW Rhinitis refers to inflammation of the nasal passages. This inflammation can cause a variety of annoying symptoms, including sneezing, itching, nasal congestion, runny nose, and post-nasal drip (the sensation that mucus is draining from the sinuses down the back of the throat). Brief episodes of rhinitis are usually caused by respiratory tract infections with viruses (eg, the common cold). Chronic rhinitis is usually caused by allergies, but it can also occur from overuse of certain drugs, some medical conditions, and other unidentifiable factors. For many people, rhinitis is a lifelong condition that waxes and wanes over time. Fortunately, the symptoms of rhinitis can usually be controlled with a combination of environmental measures, medications, and immunotherapy (also called allergy shots). WHO GETS ALLERGIC RHINITIS? Allergic rhinitis, also known as hay fever, affects approximately 20 percent of people of all ages. The risk of developing allergic rhinitis is much higher in people with asthma or eczema and in people who have a family history of asthma or rhinitis. Allergic rhinitis can begin at any age, although most people first develop symptoms in childhood or young adulthood. The symptoms are often at their worst in children and in people in their 30s and 40s. However, the severity of symptoms tends to vary throughout life; many people experience periods when they have no symptoms at all. ALLERGIC RHINITIS CAUSES Allergic rhinitis is caused by a nasal reaction to small airborne particles called allergens (substances that provoke an allergic reaction). In some people, these particles also cause reactions in the lungs (asthma) and eyes (allergic conjunctivitis). The allergic reaction is characterized by activation of two types of inflammatory cells, called mast cells and basophils. These cells produce inflammatory substances, including histamine, that cause fluid to build up in the nasal tissues (congestion), itching, sneezing, and runny nose. Over several hours, these substances activate other inflammatory cells that can cause persistent symptoms. Seasonal versus perennial allergic rhinitis -- Allergic rhinitis can be seasonal (occurring during specific seasons) or perennial (occurring year round). The allergens that most commonly cause seasonal allergic rhinitis include pollens from trees, grasses, and weeds, as well as spores from fungi and molds. The allergens that most commonly cause perennial allergic rhinitis are dust mites, cockroaches, animal dander, and fungi or molds. Perennial allergic rhinitis tends to be more difficult to treat. ALLERGIC RHINITIS SYMPTOMS The symptoms of allergic rhinitis vary from person to person. Although the term rhinitis refers only to the nasal symptoms, many patients also experience problems with their eyes, throat, ears, and sleep, so it is helpful to consider the entire spectrum of symptoms. Nose: watery nasal discharge, blocked nasal passages, sneezing, nasal itching, post-nasal drip, loss of taste, facial pressure or pain Eyes: itchy, red eyes, feeling of grittiness in the eyes, swelling and blueness of the skin below the eyes (called allergic shiners) Throat and ears: sore throat, hoarse voice, congestion or popping of the ears, itching of the throat or ears Sleep: mouth breathing, frequent awakening, daytime fatigue, difficulty performing work When an allergen is present year round, the predominant symptoms include post-nasal drip, persistent nasal congestion, and poor-quality sleep. ALLERGIC RHINITIS DIAGNOSIS The diagnosis of allergic rhinitis is based upon a physical examination and the symptoms described above. Medical tests can confirm the diagnosis and identify the offending allergens. Identify allergens and other triggers -- It is often possible to identify the allergens and other triggers that provoke allergic rhinitis by: Recalling the factors that precede symptoms Noting the time at which symptoms begin Identifying potential allergens in a person's home, work, and school environments Skin tests may be useful for people whose symptoms are not well controlled with medications or in whom the offending allergen is not obvious. ALLERGIC RHINITIS TREATMENT The treatment of allergic rhinitis includes reducing exposure to allergens and other triggers, in combination with medication therapy. In most people, these measures effectively control the symptoms. Reduce exposure to triggers -- Some simple measures can reduce a person's exposure to allergens and triggers that provoke allergic rhinitis. Several different classes of drugs counter the inflammation that causes symptoms of allergic rhinitis. The severity of symptoms and personal preferences usually guide the selection of specific drugs. Nasal irrigation and saline sprays -- Rinsing the nose with a salt-water (saline) solution is called nasal irrigation or nasal lavage. Saline is also available in a standard nasal spray, although this is not as effective as using larger amounts of water in an irrigation. Nasal irrigation is particularly useful for treating drainage down the back of the throat, sneezing, nasal dryness, and congestion. The treatment helps by rinsing out allergens and irritants from the nose. Saline rinses also clean the nasal lining and can be used before applying sprays containing medications, to get a better effect from the medication. Nasal lavage with warmed saline can be performed as needed, once per day, or twice daily for increased symptoms. Nasal lavage carries few risks when performed correctly. Saline nasal sprays and irrigation kits can be purchased [id number]. Saline mixes can also be purchased or patients can make their own solution. A variety of devices, including bulb syringes, Neti pots, and bottle sprayers, may be used to perform nasal lavage; instructions for nasal lavage are provided in the table. At least 200 mL (about 3/4 cup) of fluid is recommended for each nostril. Nasal glucocorticoids -- Nasal glucocorticoids (steroids delivered by a nasal spray) are the first-line treatment for the symptoms of allergic rhinitis. These drugs have few side effects and dramatically relieve symptoms in most people. Studies have shown that nasal glucocorticoids are more effective than oral antihistamines for symptom relief. There are a number of nasal glucocorticoids available by prescription. Specific medications include fluticasone, mometasone, budesonide, flunisolide, triamcinolone, beclomethasone, fluticasone furoate, and ciclesonide. These drugs differ with regard to the frequency of doses, the spray device, and cost, but all are similarly effective for treating all the symptoms of allergic rhinitis. People with severe rhinitis may need to use a nasal decongestant for a few days before starting a nasal glucocorticoids to reduce nasal swelling, which will allow the nasal spray to reach more areas of the nasal passages. Some symptom relief may occur on the first day of therapy with nasal glucocorticoids, although their maximal effectiveness may not be noticeable for days to weeks. For this reason, nasal glucocorticoids are most effective when used regularly. Some people are able to use lower doses when symptoms are less severe. How to use a nasal spray -- Nasal sprays work best when they are used properly and the medication remains in the nose rather than draining down the back of the throat. If the nose is crusted or contains mucus, it should be cleaned with a saline nasal spray before a nasal spray that contains medication. The head should be positioned normally or with the chin slightly tucked. The spray should be directed away from the nasal septum (the cartilage that divides the two sides of the nose). The spray is dispensed and then sniffed in slightly to pull it into the higher parts of the nose. Sniffing too hard will result in the medicine draining down the throat, and should be avoided. Some people find that holding one nostril closed with a finger improves their ability to draw the spray into the upper nose. Medicine that drains into the throat may be spit out. Side effects -- The side effects of nasal steroids are mild and may include a mildly unpleasant smell or taste or drying of the nasal lining. In some people, nasal steroids cause irritation, crusting, and bleeding of the nasal septum, especially during the winter. These problems can be minimized by reducing the dose of the nasal steroid, applying a moisturizing nasal gel or spray to the septum before using the spray, or switching to a water-based (rather than an alcohol-based) spray. Studies suggest that nasal steroids are generally safe when used for many years. However, people who use these drugs for years should have periodic nasal examinations to check for rare side effects, such as nasal infection. Steroids taken as a pill or inhaled into the lungs can have side effects, especially when taken for long periods of time. However, the doses used in nasal steroids are low and are NOT associated with these side effects. However, clinicians usually recommend using the lowest effective dose. Antihistamines -- Antihistamines relieve the itching, sneezing, and runny nose of allergic rhinitis, but they do not relieve nasal congestion. Combined treatment with nasal steroids or decongestants may provide greater symptom relief than use of either alone. Oral medications -- Several antihistamines have been available for many years without a prescription, including brompheniramine (Dimetapp allergy?, Nasahist B?), chlorpheniramine (Chlor-Trimeton?), diphenhydramine (Benadryl?), and clemastine (Tavist?). These drugs often cause sedation and should not be used before driving or operating machinery. Even if the person does not feel excessively drowsy, these drugs can have a sedating effect. Thus, patients should use caution. Less-sedating oral antihistamines include Loratadine (Claritin?, Alavert?), desloratadine (Clarinex?), cetirizine (Zyrtec?), levocetirizine (Xyzal?), and fexofenadine (Parvin?). Loratadine and cetirizine are available without a prescription. These drugs work as well as the sedating antihistamines for rhinitis, but they are less sedating and are available in long-acting formulas. However, they may be more expensive. Nasal sprays -- Azelastine (Astelin?) and olopatadine (Patanase?) are prescription nasal antihistamine sprays that can be used daily or when needed to relieve symptoms of post-nasal drip, congestion, and sneezing. These sprays start to work within minutes after use. The most common side effect with azelastine is a bad taste in the mouth immediately after use. This can be minimized by keeping the head tilted forward while spraying, to prevent the medicine from draining down the throat. Decongestants -- Decongestants (like pseudoephedrine or phenylephrine [Sudafed?, Actifed?, Drixoral?]) are often combined with antihistamines in oral, eaeg-yai-tgibfwn allergy drugs. In the [place], pseudoephedrine has been used to make illegal drugs, which caused many companies to substitute phenylephrine for pseudoephedrine. However, phenylephrine is not effective for treating allergic rhinitis. Oral decongestants elevate blood pressure and are not appropriate for people with high blood pressure or certain cardiovascular conditions. Men with an enlarged prostate who have difficulty urinating may notice a worsening of this symptom when they take decongestants. Decongestants in the form of nasal sprays are also available, including oxymetazoline (Afrin?) and phenylephrine (Billy-synephrine?). Nasal decongestant sprays should not be used for more than two to three days at a time because they may cause a type of rhinitis called rhinitis medicamentosa, which causes the nose to be congested constantly UNLESS the medication is used repeatedly. This condition can be difficult to treat. To avoid it, do not use decongestant sprays for more than 3 days. Cromolyn sodium -- Cromolyn sodium (Nasalcrom?) prevents the symptoms of allergic rhinitis by interfering with the ability of allergy cells to release natural chemicals that cause inflammation. This drug is available as an qeza-pvv-vaublaz nasal spray that must be used three to four times per day, preferably before symptoms have begun, to effectively prevent the symptoms of allergic rhinitis. Allergy shots -- Allergy shots, also known as allergen immunotherapy, are injections given to reduce a person's sensitivity to allergens. Allergy shots are only available for common allergens, such as pollens, cat and dog dander, dust mites, and molds. These shots contain solutions of the allergens to which a specific person is allergic, and are made up individually for each person. The process of immunotherapy changes the person's immune response to the allergens over time. As a result, being exposed to the allergen causes fewer or even no symptoms. Immunotherapy can help many people with allergic rhinitis. In children, immunotherapy can help prevent developing allergic asthma later in life. However, immunotherapy is relatively time-consuming and is often reserved for people who have a poor response to medication, or want to avoid taking medications long-term. Immunotherapy can be expensive, but many insurance plans cover the therapy because long-term use of allergy medications is also costly. Immunotherapy is usually started by an bank secrecy act officer. Treatment begins with several months of weekly injections of gradually increasing doses, followed by monthly maintenance injections. The maintenance injections can be given by a primary care provider. Immunotherapy is usually a long-term therapy, and the benefits of this therapy may lessen when it is discontinued. However, one study in people with allergies to grass pollen found that the benefits of three to four years of immunotherapy persisted when the injections were stopped [2]. Immunotherapy injections carry a small risk of a severe allergic reaction. These reactions occur with a frequency of 6 of every 10,000 injections. The symptoms usually begin within 30 minutes of the injection. For this reason, patients are required to remain in the office after routine injections so that such a reaction could be quickly treated. Because drugs called beta-blockers may interfere with the ability to treat these reactions, people who take beta-blockers are often advised to avoid immunotherapy. Other treatments -- Other drugs may be recommended for some people with allergic rhinitis. Ipratropium -- Nasal atropine is effective for the treatment of severe runny nose. This drug, available as ipratropium bromide (Atrovent?), is not generally recommended for people with glaucoma or men with an enlarged prostate. Leukotriene modifiers -- Release of substances called leukotrienes may contribute to the symptoms of allergic rhinitis. Drugs that block the actions of leukotrienes, called leukotriene modifiers, can be very useful in patients with asthma and allergic rhinitis. However, nasal steroids are more effective than leukotriene modifiers for treating allergic rhinitis; thus, leukotriene modifiers are generally reserved for patients who cannot tolerate nasal sprays (due to nose bleeds) or azelastine. INHALED ASTHMA medications are often taken by using a device called a metered dose inhaler, or MDI. The MDI is a small aerosol canister in a plastic hauser. It lets out a burst of medication when it is pressed down from the top. The MDI is an aerosol and its contents are under pressure. Do not puncture or store near heat or an open flame. The MDI can be used by itself or with a device called a spacer. The spacer is a chamber that attaches to the MDI and holds the burst of medication. In this way, it lets you or your child take the medication when you are ready. Directions for using the MDI with and without the spacer are given below. Read these instructions before using the medications. Your asthma care team will also teach you or your child how to use the MDI. TO USE AN MDI WITHOUT A SPACER (These steps can be adapted to instruct your child.) 1. Remove the cap from the MDI and shake it well. 2. Hold the MDI by placing your index finger on top of the metal canister and thumb on the bottom of the plastic mouthpiece. 3. Tilt your head back slightly, open your mouth wide, and place the MDI about 2 inches in front of your mouth. 4. Breathe in and out 1 time. 5. As you begin to inhale on your next breath, press the metal canister down. Breathe in slowly (5seconds) and as deeply as you can. 6. Hold your breath for at least 10 seconds to allow the medication to deposit in the lungs. 7. Repeat the above steps after waiting at least 1 minute. Follow the dosage ordered by your doctor. 8. Replace the cap on your MDI when finished. 9. If you are using a corticosteroid MDI, gargle and rinse your mouth with water or mouthwash after each use. TO USE AN MDI WITH A SPACER (These steps can be adapted to instruct your child.) 1. Remove the cap from the MDI and spacer device. Shake well. 2. Insert the MDI into the open end of the spacer (opposite the mouthpiece). 3. Place mouthpiece of the spacer between your teeth and seal your lips tightly around it. 4. Press the canister once. 5. Breathe in slowly and completely through your mouth. If you hear a hornlike sound, you are breathing too quickly and need to slow down. 6. Hold your breath for at least 10 seconds to allow the medication to deposit in the lungs. 7. Repeat the above steps after waiting at least 1 minute. Some MDI's require more than 2 puffs. Follow the dosage ordered by your doctor. 8. Replace the cap on your MDI when finished. 9. If you are using a corticosteroid MDI, gargle and rinse your mouth with water or mouthwash after each use. CARING FOR YOUR MDI AND SPACER Rinse the plastic hauser of the MDI with warm water every 1 to 2 days to prevent the holes from getting clogged. Clean the spacer every other day. (If you are using the spacer intermittently, you may only need to clean it once a week.) Remove the soft ring at the end of the spacer and soak the spacer and ring in warm water with mild detergent. Rinse well in warm water. Air dry completely or dry carefully with a paper towel before putting back together. CHECKING YOUR METERED DOSE INHALER The number of puffs contained in your metered dose inhaler is printed on the side of the canister. After you have used that number of puffs, you must discard your inhaler even if it continues to spray. Keep track of how many puffs you have used. If you use an MDI every day for prevention, you can determine how long it will last last by dividing the total number of puffs in the MDI by the total puffs you use every day. (For example, your MDI has 200 puffs and you use a total of 4 puffs per day. Divide 200 by 4 and your MDI will last 50 days.) If you use an inhaler only when only when you need to, you must keep of how many times you spray the inhaler. If you prefer, you can obtain a device that counts down the number of puffs each time you press the inhaler. Ask your health care management associate for more information on these devices. *This information is not intended to replace the medical advice of your doctor or health care provider. Please consult your health care provider for advise about a specific medical condition.GENERAL INFORMATION: Pneumonia is a lung infection caused by bacteria, viruses, or bacteria-like germs. It usually cannot be spread to other people. INSTRUCTIONS: 1. If you are given a prescription for antibiotics, take them as ordered by your doctor until they are all gone. 2. Use a cool-mist humidifier or vaporizer to increase air moisture. This will make it easier for you to breathe. Do not use hot steam. 3. Rest in until your temperature is normal (98.6 F or 37 C) and your chest pain and shortness of breath are gone. 4. Slowly restart your normal activities. You may feel weak and tired for up to six weeks. 5. Drink at least one glass of water or other liquid every hour. This will help thin sputum and make it easier to cough up. 6. If you have chest pain, applying a heating pad or warm compresses for 10 to 20 minutes several times a day to the painful area may lessen the pain. 7. Take several deep breaths and then cough frequently during the day. This will help get rid of the infection. 8. You may take medicines that you can buy without a prescription to treat pain and fever. Use cough medicine only if absolutely necessary as coughing helps clear the infection. CONTACT YOUR DOCTOR IF: 1. Your temperature is over 102 F (39 C). 2. Your chest pain, fever or chills do not get better with medicine in 2-3 days. 3. You develop nausea, vomiting or diarrhea. 4. You are coughing up large amounts of bloody sputum. 5. You have any problems that may be related to the medicine that you are taking (such as rash, itching, swelling, or stomach pain). RETURN TO THE EMERGENCY DEPARTMENT IF: 1. You have a lot of trouble breathing or you have dark or bluish fingernails, toenails, or skin. 2. You have a severe headache, neck stiffness, or feel confused. Shobha Vines APRN.[facility] 08/29/2024 8:55 AM Signed [facility] NOTE Subjective Mckayla Russo is a 79 year old year old who presents to [facility] care today with complaint of 1 week of worsening sinus pressure, cough, wheezing, shortness of breath and intermittent illness over the past 9 months. Numerous antibiotic allergies and was given Amoxicillin x 2 per her report in the past 9 months. Last CXR reviewed and WNL 01/2024, she states she receives CXR's at least every 6 months due to history of ground Glass Lungs yet unsure if she had COVID 19 in the past. Worsening cough this week. Is followed by Pulmonology and recently Stopped taking Trelegy. States she does not use Albuterol because it makes me shake. States she had second hand smoking most of her life growing up as a child. Denies headaches, fever, sore throat, chest pains, Nausea, vomiting, changes in bowel or bladder or skin rashes. No current medication treatments. Aside from symptoms as described above, patient has no other complaints at this time. HPI: see above Review of Systems Constitutional: Positive for chills and fatigue. Negative for fever. HENT: Positive for congestion, postnasal drip and sinus pressure. Negative for ear pain, sore throat and trouble swallowing. Eyes: Negative for pain, discharge, redness and itching. Respiratory: Positive for cough, chest tightness, shortness of breath and wheezing. Cardiovascular: Negative for chest pain, palpitations and leg swelling. Gastrointestinal: Negative for abdominal pain, diarrhea, nausea and vomiting. Genitourinary: Negative for dysuria, frequency and urgency. Musculoskeletal: Positive for myalgias. Skin: Negative for rash. Neurological: Negative for headaches. Hematological: Negative for adenopathy. ALLERGIES Allergen Reactions Amitriptyline Other: See Comments Confusion, falls Cymbalta [Duloxetin* Unknown Doxycycline GI Upset headache Ephedrine Other: See Comments tachycardia, but pt. states she still uses nose spray Iodine Itching itching after prolonged use Isolone Forte Swelling Levaquin [Levofloxa* Other: See Comments Achilles tendon problem Lyrica [Pregabalin] Other: See Comments Dizziness at 225mg twice daily Oxycodone Mental Status Change Percocet [Oxycodone* Unknown Sulfa (Sulfonamide * Hives blisters Aggrenox [Aspirin-D* Other: See Comments MIGRAINES AND VOMITING Cephalexin (Bulk) GI Upset Duricef [Cefadroxil] Hives Nortriptyline Other: See Comments vertigo Current Outpatient Medications on File Prior to Visit Medication Sig zolpidem (AMBIEN) 10 mg Take 1 tablet by mouth at bedtime as needed (insomnia) for up to 180 days. insulin glargine (LANTUS SOLOSTAR U-100 INSULIN) 100 unit/mL (3 mL) Take 51 units once a day when in case of pump failure clopidogrel (PLAVIX) 75 mg tablet Take 1 tablet by mouth once daily. losartan (COZAAR) 100 mg tablet Take 1 tablet by mouth once daily. hydrOXYchloroQUINE (PLAQUENIL) 200 mg tablet Take 1.5 tablets by mouth once daily. pramipexole (MIRAPEX) 1 mg tablet Take 2 tablets by mouth daily at bedtime. famotidine (PEPCID) 20 mg tablet Take 1 tablet by mouth two times a day. guaiFENesin (MUCINEX) 600 mg 12 hr tablet Take 1 tablet by mouth two times a day. Infusion Set for Insulin Pump (TreeveoTRONIC EXT INFUSION SET 23) iset 1 Each one time a week. amLODIPine (NORVASC) 5 mg tablet Take 1 tablet by mouth once daily. nystatin (MYCOSTATIN) powder Apply 1 application to affected area three times a day. atorvastatin (LIPITOR) 40 mg tablet Take 1 tablet by mouth once daily. metoclopramide HCl (REGLAN) 5 mg tablet Take 1 tablet by mouth every 6 hours for 30 days; administer 30 minutes before a meal. Insulin Syringe-Needle U-100 (BD INSULIN SYRINGE ULTRA-FINE) 1 mL 31 gauge x 5/16 Use 4 syringes daily if insulin pump fails blood sugar diagnostic (ACCU-CHEK GUIDE TEST STRIPS) test strip Use with blood glucose test upto four times daily insulin lispro (HUMALOG U-100 INSULIN) 100 unit/mL injection as directed in Insulin pump up to 110 units daily. Dx E10.65 diclofenac sodium (VOLTAREN ARTHRITIS PAIN TOPICAL) Apply 2 g to affected area as needed (pain). lidocain-me.nshpcbo-touo-olfau 0.5-20-0.035-5 % ptmd Apply 1 Each to affected area as needed. albuterol HFA (PROVENTIL HFA, VENTOLIN HFA) 90 mcg/actuation inhaler Inhale 2 Puffs as instructed every 4 hours as needed for wheezing/shortness of breath. WALKER ROLLATOR SEAT WITH 6 WHEELS - RED For ambulation nitroglycerin (NITROLINGUAL) 400 mcg/spray spray one every 5 minutes x3 as needed Bacillus coagulans/inulin (PROBIOTIC WITH PREBIOTIC ORAL) Take 1 capsule by mouth once daily. aspirin 81 mg chewable tablet Take 1 tablet by mouth once daily. Cholecalciferol, Vitamin D3, 125 mcg (5,000 unit) cap Take 1 capsule by mouth once daily. Biotin 1 mg tab Take 1 tablet by mouth once daily. multivitamin tablet Take 1 tablet by mouth once daily. acetaminophen (TYLENOL 8 HOUR) 650 mg CR tablet Take 1 tablet by mouth every 8 hours as needed. neomycin 500 mg tablet Take 1 tablet by mouth every 12 hours. (Patient not taking: Reported on 11/25/2023) traMADol (ULTRAM) 50 mg tablet Take 50 mg by mouth every 6 hours as needed for pain. (Patient not taking: Reported on 05/30/2024) No current facility-administered medications on file prior to visit. 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[facility]) Hypoglycemia Unawareness in Type 1 Diabetes Mellitus ([facility]) Asthma ([facility]) H/O Multiple Allergies Insulin Pump in Place 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 Physical Exam Vitals and nursing note reviewed. Constitutional: General: She is not in acute distress. Appearance: Normal appearance. She is not ill-appearing or toxic-appearing. HENT: Head: Normocephalic and atraumatic. Right Ear: Ear canal and external ear normal. Left Ear: Ear canal and external ear normal. Ears: Comments: TM's slightly bulging with clear fluid Nose: Congestion (mild mucosal edema) and rhinorrhea (clear fluid in nares) present. Right Turbinates: Swollen. Left Turbinates: Swollen. Right Sinus: Maxillary sinus tenderness and frontal sinus tenderness present. Left Sinus: Maxillary sinus tenderness and frontal sinus tenderness present. Mouth/Throat: Mouth: Mucous membranes are moist. Pharynx: Oropharynx is clear. Posterior oropharyngeal erythema (mild with clear fluid) present. No pharyngeal swelling or oropharyngeal exudate. Eyes: Extraocular Movements: Extraocular movements intact. Conjunctiva/sclera: Conjunctivae normal. Pupils: Pupils are equal, round, and reactive to light. Cardiovascular: Rate and Rhythm: Normal rate and regular rhythm. Pulses: Normal pulses. Heart sounds: Normal heart sounds. Pulmonary: Effort: Pulmonary effort is normal. Breath sounds: Wheezing (throughtou all hurt does not clear with coughing and deep breathing) present. No rhonchi. Abdominal: General: Bowel sounds are normal. Palpations: Abdomen is soft. Musculoskeletal: Cervical back: Normal range of motion and neck supple. No tenderness. Lymphadenopathy: Cervical: No cervical adenopathy. Neurological: Mental Status: She is alert. Assessment/Plan 1. Community acquired pneumonia, unspecified laterality (Primary) - amoxicillin-clavulanate potassium (AUGMENTIN) 875-125 mg per tablet; Take 1 tablet by mouth two times a day for 10 days. Dispense: 20 tablet; Refill: 0 - XR CHEST 2V FRONTAL/LAT; Future - benzonatate (TESSALON PERLE) 100 mg capsule; Take 1 capsule by mouth three times a day as needed for cough. Dispense: 21 capsule; Refill: 0 - sbulhgirjip-bhghcrhar-rwqtyaod (TRELEGY ELLIPTA) 100-62.5-25 mcg inhalation powder; Inhale 1 puff as instructed once daily. Dispense: 60 each; Refill: 0 2. Bacterial sinusitis 3. Seasonal allergic rhinitis due to other allergic trigger - sodium chloride (SALINE MIST) 0.65 % nasal spray; Use 1 spray in the nose two times a day. Dispense: 88 mL; Refill: 2 - azelastine 0.1% nasal spray; Use 1 spray in each nostril two times a day. Dispense: 30 mL; Refill: 2 - fluticasone (FLONASE) 50 mcg/actuation nasal spray; Use 2 sprays in each nostril two times a day. Rinse mouth after use. Dispense: 16 g; Refill: 2 Patient advised to drink fluids, get rest and take all meds as prescribed. Patient given educational materials - see instructions. Discussed use, benefit, and side effects of prescribed medications. All questions answered. Patient advised to follow up with PCP or PULMONOLOGY in one week, or sooner if symptoms worsen or persist. If symptoms become severe- GO TO ED. Patient verbalized understanding and agreeable with treatment plan. Shobha Vines APRN [facility] 08/29/2024 8:46 AM Allergies As of Date: 08/29/2024 Noted Allergy Reaction AMITRIPTYLINE 11/09/2012 14 - Other: See Comments Comments: Confusion, falls CYMBALTA (DULOXETINE) 06/07/2015 16 - Unknown DOXYCYCLINE 06/11/2011 8 - GI Upset Comments: headache EPHEDRINE 01/10/2005 14 - Other: See Comments Comments: tachycardia, but pt. states she still uses nose spray IODINE 07/29/2006 9 - Itching Comments: itching after prolonged use ISOLONE FORTE 04/06/2023 7 - Swelling LEVAQUIN (LEVOFLOXACIN) 05/26/2012 14 - Other: See Comments Comments: Achilles tendon problem LYRICA (PREGABALIN) 05/26/2012 14 - Other: See Comments Comments: Dizziness at 225mg twice daily OXYCODONE 01/21/2021 1 - Mental Status Change PERCOCET (OXYCODONE-ACETAMINOPHEN)05/29/2010 16 - Unknown SULFA (SULFONAMIDE ANTIBIOTICS) 01/10/2005 4 - Hives Comments: blisters AGGRENOX (ASPIRIN-DIPYRIDAMOLE) 12/18/2008 14 - Other: See Comments Comments: MIGRAINES AND VOMITING CEPHALEXIN (BULK) 05/12/2008 8 - GI Upset DURICEF (CEFADROXIL) 01/10/2005 4 - Hives NORTRIPTYLINE 02/11/2013 14 - Other: See Comments Comments: vertigo Date Reviewed: 08/29/2024 Reviewed by: Shobha Vines APRN.[facility] [facility] - Fully Assessed Reason for Visit: Cough [28] Cmt: Cough, chest congestion, sinus and [place] x 2 weeks Primary Visit Diagnosis:Community acquired pneumonia, unspecified laterality [J18.9] Other Visit Diagnoses:Bacterial sinusitis [J32.9, B96.89] Seasonal allergic rhinitis due to other allergic trigger [J30.89] Order(s):amoxicillin-clavulanate potassium (AUGMENTIN) 875-125 mg per tabletTake 1 tablet by mouth two times a day for 10 days.Disp: 20 tabletRfl: 0 XR CHEST 2V FRONTAL/LAT [[id number]] Order #: [id number] FUTURE benzonatate (TESSALON PERLE) 100 mg capsuleTake 1 capsule by mouth three times a day as needed for cough.Disp: 21 capsuleRfl: 0 sodium chloride (SALINE MIST) 0.65 % nasal sprayUse 1 spray in the nose two times a day.Disp: 88 mLRfl: 2 azelastine 0.1% nasal sprayUse 1 spray in each nostril two times a day.Disp: 30 mLRfl: 2 fluticasone (FLONASE) 50 mcg/actuation nasal sprayUse 2 sprays in each nostril two times a day. Rinse mouth after use.Disp: 16 gRfl: 2 knvzfbwmywb-rugzfppej-ojhyuhcu (TRELEGY ELLIPTA) 100-62.5-25 mcg inhalation powderInhale 1 puff as instructed once daily.Disp: 60 eachRfl: 0 Prescriptions as of 08/29/2024 - amoxicillin-clavulanate potassium (AUGMENTIN) 875-125 mg per tablet Take 1 tablet by mouth two times a day for 10 days. - benzonatate (TESSALON PERLE) 100 mg capsule Take 1 capsule by mouth three times a day as needed for cough. - sodium chloride (SALINE MIST) 0.65 % nasal spray Use 1 spray in the nose two times a day. - azelastine 0.1% nasal spray Use 1 spray in each nostril two times a day. - fluticasone (FLONASE) 50 mcg/actuation nasal spray Use 2 sprays in each nostril two times a day. Rinse mouth after use. - ixceivtjxch-vfgfgmver-dpinnhzc (TRELEGY ELLIPTA) 100-62.5-25 mcg inhalation powder Inhale 1 puff as instructed once daily. - zolpidem (AMBIEN) 10 mg Take 1 tablet by mouth at bedtime as needed (insomnia) for up to 180 days. - insulin glargine (LANTUS SOLOSTAR U-100 INSULIN) 100 unit/mL (3 mL) Take 51 units once a day when in case of pump failure - clopidogrel (PLAVIX) 75 mg tablet Take 1 tablet by mouth once daily. - losartan (COZAAR) 100 mg tablet Take 1 tablet by mouth once daily. - hydrOXYchloroQUINE (PLAQUENIL) 200 mg tablet Take 1.5 tablets by mouth once daily. - pramipexole (MIRAPEX) 1 mg tablet Take 2 tablets by mouth daily at bedtime. - famotidine (PEPCID) 20 mg tablet Take 1 tablet by mouth two times a day. - guaiFENesin (MUCINEX) 600 mg 12 hr tablet Take 1 tablet by mouth two times a day. - Infusion Set for Insulin Pump (MEDTRONIC EXT INFUSION SET 23) iset 1 Each one time a week. - amLODIPine (NORVASC) 5 mg tablet Take 1 tablet by mouth once daily. - nystatin (MYCOSTATIN) powder Apply 1 application to affected area three times a day. - atorvastatin (LIPITOR) 40 mg tablet Take 1 tablet by mouth once daily. - neomycin 500 mg tablet Take 1 tablet by mouth every 12 hours. - metoclopramide HCl (REGLAN) 5 mg tablet Take 1 tablet by mouth every 6 hours for 30 days; administer 30 minutes before a meal. - Insulin Syringe-Needle U-100 (BD INSULIN SYRINGE ULTRA-FINE) 1 mL 31 gauge x 5/16 Use 4 syringes daily if insulin pump fails - blood sugar diagnostic (ACCU-CHEK GUIDE TEST STRIPS) test strip Use with blood glucose test upto four times daily - insulin lispro (HUMALOG U-100 INSULIN) 100 unit/mL injection as directed in Insulin pump up to 110 units daily. Dx E10.65 - diclofenac sodium (VOLTAREN ARTHRITIS PAIN TOPICAL) Apply 2 g to affected area as needed (pain). - lidocain-me.badnmxy-ryjg-vorgw 0.5-20-0.035-5 % ptmd Apply 1 Each to affected area as needed. - traMADol (ULTRAM) 50 mg tablet Take 50 mg by mouth every 6 hours as needed for pain. - albuterol HFA (PROVENTIL HFA, VENTOLIN HFA) 90 mcg/actuation inhaler Inhale 2 Puffs as instructed every 4 hours as needed for wheezing/shortness of breath. - WALKER ROLLATOR SEAT WITH 6 WHEELS - RED For ambulation - nitroglycerin (NITROLINGUAL) 400 mcg/spray spray one every 5 minutes x3 as needed - Bacillus coagulans/inulin (PROBIOTIC WITH PREBIOTIC ORAL) Take 1 capsule by mouth once daily. - aspirin 81 mg chewable tablet Take 1 tablet by mouth once daily. - Cholecalciferol, Vitamin D3, 125 mcg (5,000 unit) cap Take 1 capsule by mouth once daily. - Biotin 1 mg tab Take 1 tablet by mouth once daily. - multivitamin tablet Take 1 tablet by mouth once daily. - acetaminophen (TYLENOL 8 HOUR) 650 mg CR tablet Take 1 tablet by mouth every 8 hours as needed. Problem List As Of Date 08/29/2024 Noted Resolved Hyperlipidemia [E78.5] Hypertension [I10] Coronary artery disease involving [place]* 09/29/2019 Dizziness and Giddiness [R42] 04/30/2009 Postsurgical Percutaneous Transluminal Coronary* 04/30/2009 Mild intermittent asthma without complication [* 09/29/2019 Other psoriasis [L40.8] 09/29/2019 Disorder of bone and cartilage [M89.9, M94.9] 09/29/2019 ESOPHAGITIS [530.1] Diverticulosis of Colon (without Mention of Hem* 04/30/2009 External Hemorrhoids without Mention of Complic* 04/30/2009 Internal Hemorrhoids without Mention of Complic* 04/30/2009 Allergic Rhinitis, Cause Unspecified [J30.9] 01/13/2005 06/25/2015 Ingrowing Nail [L60.0] 03/20/2005 04/30/2009 Pain in Soft Tissues of Limb [M79.609] 03/20/2005 04/30/2009 CARPAL TUNNEL BILATERRAL [M13.149] 08/08/2005 09/29/2019 Nonspecific Abnormal Results of Liver Function *08/08/2005 04/30/2009 OVERWEIGHT [E66.9] 08/08/2005 04/30/2009 Dermatophytosis of Nail [B35.1] 09/04/2005 04/30/2009 Depression [F32.5] 12/18/2005 Anxiety state [F41.1] 12/18/2005 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] 03/23/2006 04/30/2009 Pain in Joint, Shoulder Region [M25.519] 05/22/2006 04/30/2009 Neck Sprain and Strain [S13.9XXA] 05/22/2006 04/30/2009 Onychia and Paronychia of Toe [L03.039] 08/11/2006 04/30/2009 Cellulitis and Abscess of Foot, except Toes [L0*08/24/2006 04/30/2009 Rheumatoid arthritis (HCC) [M06.9] 12/04/2006 Anemia, unspecified [D64.9] 12/04/2006 09/29/2019 Sleep apnea [G47.30] 03/08/2007 Acute Bronchitis [J20.9] 05/18/2008 04/30/2009 Tenosynovitis of Foot and Ankle [M65.979] 06/29/2008 04/30/2009 Vitamin deficiency [E56.9] 04/23/2009 [facility] [facility]04/30/2009 06/25/2015 Class: Chronic Routine gynecological examination [Z01.419] 04/30/2009 06/25/2015 Class: Chronic Diverticulosis of colon [K57.30] 04/30/2009 Cerebral infarction (HCC) [I63.9] 07/16/2009 Pain in joint, lower leg [M25.569] 01/21/2010 06/25/2015 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] 04/25/2010 Restless legs syndrome (RLS) [G25.81] 06/25/2010 Calcifying tendinitis of shoulder [M75.30] 07/09/2010 Venous insufficiency [I87.2] 09/08/2011 Thoracic or lumbosacral neuritis or radiculitis*03/01/2012 09/29/2019 Abnormality of gait [R26.9] 03/01/2012 06/25/2015 Vertigo [R42] 02/02/2013 06/25/2015 Cervicalgia [M54.2] 08/04/2014 Gait abnormality [R26.9] 08/04/2014 BPPV (benign paroxysmal positional vertigo) [H8*02/11/2015 09/29/2019 Obstructive sleep apnea syndrome [G47.33] 06/08/2015 Mixed hyperlipidemia [E78.2] 06/08/2015 GERD (gastroesophageal reflux disease) [K21.9] 08/09/2015 RLS (restless legs syndrome) [G25.81] 08/09/2015 Insomnia [G47.00] 08/09/2015 Vertigo [R42] 08/12/2015 09/29/2019 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/2015 Coronary artery disease [I25.10] 08/29/2015 Mild nonproliferative diabetic retinopathy of b*12/06/2018 Hypoglycemia unawareness in type 1 diabetes emre*01/18/2019 Other dysphagia [R13.19] 07/18/2019 09/29/2019 DKA (diabetic ketoacidoses) ([facility]) [E11.10] 09/28/2019 10/18/2020 Asthma [J45.909] 09/29/2019 SHERLYN (acute kidney injury) ([facility]) [N17.9] 09/29/2019 09/30/2019 H/O multiple allergies [Z88.9] 06/19/[address] [Z96.41] 07/10/2020 Type 1 diabetes mellitus with mild nonprolifera*10/18/2020 Type 1 diabetes mellitus with diabetic neuropat*10/18/2020 Class 2 severe obesity with serious comorbidity*10/18/2020 Bilateral carotid artery stenosis [I65.23] 05/10/2021 Other instructions from your clinician: EXPRESS CARE PATIENT INFO ALLERGIC RHINITIS OVERVIEW Rhinitis refers to inflammation of the nasal passages. This inflammation can cause a variety of annoying symptoms, including sneezing, itching, nasal congestion, runny nose, and post-nasal drip (the sensation that mucus is draining from the sinuses down the back of the throat). Brief episodes of rhinitis are usually caused by respiratory tract infections with viruses (eg, the common cold). Chronic rhinitis is usually caused by allergies, but it can also occur from overuse of certain drugs, some medical conditions, and other unidentifiable factors. For many people, rhinitis is a lifelong condition that waxes and wanes over time. Fortunately, the symptoms of rhinitis can usually be controlled with a combination of environmental measures, medications, and immunotherapy (also called allergy shots). WHO GETS ALLERGIC RHINITIS? Allergic rhinitis, also known as hay fever, affects approximately 20 percent of people of all ages. The risk of developing allergic rhinitis is much higher in people with asthma or eczema and in people who have a family history of asthma or rhinitis. Allergic rhinitis can begin at any age, although most people first develop symptoms in childhood or young adulthood. The symptoms are often at their worst in children and in people in their 30s and 40s. However, the severity of symptoms tends to vary throughout life; many people experience periods when they have no symptoms at all. ALLERGIC RHINITIS CAUSES Allergic rhinitis is caused by a nasal reaction to small airborne particles called allergens (substances that provoke an allergic reaction). In some people, these particles also cause reactions in the lungs (asthma) and eyes (allergic conjunctivitis). The allergic reaction is characterized by activation of two types of inflammatory cells, called mast cells and basophils. These cells produce inflammatory substances, including histamine, that cause fluid to build up in the nasal tissues (congestion), itching, sneezing, and runny nose. Over several hours, these substances activate other inflammatory cells that can cause persistent symptoms. Seasonal versus perennial allergic rhinitis -- Allergic rhinitis can be seasonal (occurring during specific seasons) or perennial (occurring year round). The allergens that most commonly cause seasonal allergic rhinitis include pollens from trees, grasses, and weeds, as well as spores from fungi and molds. The allergens that most commonly cause perennial allergic rhinitis are dust mites, cockroaches, animal dander, and fungi or molds. Perennial allergic rhinitis tends to be more difficult to treat. ALLERGIC RHINITIS SYMPTOMS The symptoms of allergic rhinitis vary from person to person. Although the term rhinitis refers only to the nasal symptoms, many patients also experience problems with their eyes, throat, ears, and sleep, so it is helpful to consider the entire spectrum of symptoms. Nose: watery nasal discharge, blocked nasal passages, sneezing, nasal itching, post-nasal drip, loss of taste, facial pressure or pain Eyes: itchy, red eyes, feeling of grittiness in the eyes, swelling and blueness of the skin below the eyes (called allergic shiners) Throat and ears: sore throat, hoarse voice, congestion or popping of the ears, itching of the throat or ears Sleep: mouth breathing, frequent awakening, daytime fatigue, difficulty performing work When an allergen is present year round, the predominant symptoms include post-nasal drip, persistent nasal congestion, and poor-quality sleep. ALLERGIC RHINITIS DIAGNOSIS The diagnosis of allergic rhinitis is based upon a physical examination and the symptoms described above. Medical tests can confirm the diagnosis and identify the offending allergens. Identify allergens and other triggers -- It is often possible to identify the allergens and other triggers that provoke allergic rhinitis by: Recalling the factors that precede symptoms Noting the time at which symptoms begin Identifying potential allergens in a person's home, work, and school environments Skin tests may be useful for people whose symptoms are not well controlled with medications or in whom the offending allergen is not obvious. ALLERGIC RHINITIS TREATMENT The treatment of allergic rhinitis includes reducing exposure to allergens and other triggers, in combination with medication therapy. In most people, these measures effectively control the symptoms. Reduce exposure to triggers -- Some simple measures can reduce a person's exposure to allergens and triggers that provoke allergic rhinitis. Several different classes of drugs counter the inflammation that causes symptoms of allergic rhinitis. The severity of symptoms and personal preferences usually guide the selection of specific drugs. Nasal irrigation and saline sprays -- Rinsing the nose with a salt-water (saline) solution is called nasal irrigation or nasal lavage. Saline is also available in a standard nasal spray, although this is not as effective as using larger amounts of water in an irrigation. Nasal irrigation is particularly useful for treating drainage down the back of the throat, sneezing, nasal dryness, and congestion. The treatment helps by rinsing out allergens and irritants from the nose. Saline rinses also clean the nasal lining and can be used before applying sprays containing medications, to get a better effect from the medication. Nasal lavage with warmed saline can be performed as needed, once per day, or twice daily for increased symptoms. Nasal lavage carries few risks when performed correctly. Saline nasal sprays and irrigation kits can be purchased [id number]. Saline mixes can also be purchased or patients can make their own solution. A variety of devices, including bulb syringes, Neti pots, and bottle sprayers, may be used to perform nasal lavage; instructions for nasal lavage are provided in the table. At least 200 mL (about 3/4 cup) of fluid is recommended for each nostril. Nasal glucocorticoids -- Nasal glucocorticoids (steroids delivered by a nasal spray) are the first-line treatment for the symptoms of allergic rhinitis. These drugs have few side effects and dramatically relieve symptoms in most people. Studies have shown that nasal glucocorticoids are more effective than oral antihistamines for symptom relief. There are a number of nasal glucocorticoids available by prescription. Specific medications include fluticasone, mometasone, budesonide, flunisolide, triamcinolone, beclomethasone, fluticasone furoate, and ciclesonide. These drugs differ with regard to the frequency of doses, the spray device, and cost, but all are similarly effective for treating all the symptoms of allergic rhinitis. People with severe rhinitis may need to use a nasal decongestant for a few days before starting a nasal glucocorticoids to reduce nasal swelling, which will allow the nasal spray to reach more areas of the nasal passages. Some symptom relief may occur on the first day of therapy with nasal glucocorticoids, although their maximal effectiveness may not be noticeable for days to weeks. For this reason, nasal glucocorticoids are most effective when used regularly. Some people are able to use lower doses when symptoms are less severe. How to use a nasal spray -- Nasal sprays work best when they are used properly and the medication remains in the nose rather than draining down the back of the throat. If the nose is crusted or contains mucus, it should be cleaned with a saline nasal spray before a nasal spray that contains medication. The head should be positioned normally or with the chin slightly tucked. The spray should be directed away from the nasal septum (the cartilage that divides the two sides of the nose). The spray is dispensed and then sniffed in slightly to pull it into the higher parts of the nose. Sniffing too hard will result in the medicine draining down the throat, and should be avoided. Some people find that holding one nostril closed with a finger improves their ability to draw the spray into the upper nose. Medicine that drains into the throat may be spit out. Side effects -- The side effects of nasal steroids are mild and may include a mildly unpleasant smell or taste or drying of the nasal lining. In some people, nasal steroids cause irritation, crusting, and bleeding of the nasal septum, especially during the winter. These problems can be minimized by reducing the dose of the nasal steroid, applying a moisturizing nasal gel or spray to the septum before using the spray, or switching to a water-based (rather than an alcohol-based) spray. Studies suggest that nasal steroids are generally safe when used for many years. However, people who use these drugs for years should have periodic nasal examinations to check for rare side effects, such as nasal infection. Steroids taken as a pill or inhaled into the lungs can have side effects, especially when taken for long periods of time. However, the doses used in nasal steroids are low and are NOT associated with these side effects. However, clinicians usually recommend using the lowest effective dose. Antihistamines -- Antihistamines relieve the itching, sneezing, and runny nose of allergic rhinitis, but they do not relieve nasal congestion. Combined treatment with nasal steroids or decongestants may provide greater symptom relief than use of either alone. Oral medications -- Several antihistamines have been available for many years without a prescription, including brompheniramine (Dimetapp allergy?, Nasahist B?), chlorpheniramine (Chlor-Trimeton?), diphenhydramine (Benadryl?), and clemastine (Tavist?). These drugs often cause sedation and should not be used before driving or operating machinery. Even if the person does not feel excessively drowsy, these drugs can have a sedating effect. Thus, patients should use caution. Less-sedating oral antihistamines include Loratadine (Claritin?, Alavert?), desloratadine (Clarinex?), cetirizine (Zyrtec?), levocetirizine (Xyzal?), and fexofenadine (Parvin?). Loratadine and cetirizine are available without a prescription. These drugs work as well as the sedating antihistamines for rhinitis, but they are less sedating and are available in long-acting formulas. However, they may be more expensive. Nasal sprays -- Azelastine (Astelin?) and olopatadine (Patanase?) are prescription nasal antihistamine sprays that can be used daily or when needed to relieve symptoms of post-nasal drip, congestion, and sneezing. These sprays start to work within minutes after use. The most common side effect with azelastine is a bad taste in the mouth immediately after use. This can be minimized by keeping the head tilted forward while spraying, to prevent the medicine from draining down the throat. Decongestants -- Decongestants (like pseudoephedrine or phenylephrine [Sudafed?, Actifed?, Drixoral?]) are often combined with antihistamines in oral, [id number] allergy drugs. In the [place], pseudoephedrine has been used to make illegal drugs, which caused many companies to substitute phenylephrine for pseudoephedrine. However, phenylephrine is not effective for treating allergic rhinitis. Oral decongestants elevate blood pressure and are not appropriate for people with high blood pressure or certain cardiovascular conditions. Men with an enlarged prostate who have difficulty urinating may notice a worsening of this symptom when they take decongestants. Decongestants in the form of nasal sprays are also available, including oxymetazoline (Afrin?) and phenylephrine (Billy-synephrine?). Nasal decongestant sprays should not be used for more than two to three days at a time because they may cause a type of rhinitis called rhinitis medicamentosa, which causes the nose to be congested constantly UNLESS the medication is used repeatedly. This condition can be difficult to treat. To avoid it, do not use decongestant sprays for more than 3 days. Cromolyn sodium -- Cromolyn sodium (Nasalcrom?) prevents the symptoms of allergic rhinitis by interfering with the ability of allergy cells to release natural chemicals that cause inflammation. This drug is available as an [id number] nasal spray that must be used three to four times per day, preferably before symptoms have begun, to effectively prevent the symptoms of allergic rhinitis. Allergy shots -- Allergy shots, also known as allergen immunotherapy, are injections given to reduce a person's sensitivity to allergens. Allergy shots are only available for common allergens, such as pollens, cat and dog dander, dust mites, and molds. These shots contain solutions of the allergens to which a specific person is allergic, and are made up individually for each person. The process of immunotherapy changes the person's immune response to the allergens over time. As a result, being exposed to the allergen causes fewer or even no symptoms. Immunotherapy can help many people with allergic rhinitis. In children, immunotherapy can help prevent developing allergic asthma later in life. However, immunotherapy is relatively time-consuming and is often reserved for people who have a poor response to medication, or want to avoid taking medications long-term. Immunotherapy can be expensive, but many insurance plans cover the therapy because long-term use of allergy medications is also costly. Immunotherapy is usually started by an bank secrecy act officer. Treatment begins with several months of weekly injections of gradually increasing doses, followed by monthly maintenance injections. The maintenance injections can be given by a primary care provider. Immunotherapy is usually a long-term therapy, and the benefits of this therapy may lessen when it is discontinued. However, one study in people with allergies to grass pollen found that the benefits of three to four years of immunotherapy persisted when the injections were stopped [2]. Immunotherapy injections carry a small risk of a severe allergic reaction. These reactions occur with a frequency of 6 of every 10,000 injections. The symptoms usually begin within 30 minutes of the injection. For this reason, patients are required to remain in the office after routine injections so that such a reaction could be quickly treated. Because drugs called beta-blockers may interfere with the ability to treat these reactions, people who take beta-blockers are often advised to avoid immunotherapy. Other treatments -- Other drugs may be recommended for some people with allergic rhinitis. Ipratropium -- Nasal atropine is effective for the treatment of severe runny nose. This drug, available as ipratropium bromide (Atrovent?), is not generally recommended for people with glaucoma or men with an enlarged prostate. Leukotriene modifiers -- Release of substances called leukotrienes may contribute to the symptoms of allergic rhinitis. Drugs that block the actions of leukotrienes, called leukotriene modifiers, can be very useful in patients with asthma and allergic rhinitis. However, nasal steroids are more effective than leukotriene modifiers for treating allergic rhinitis; thus, leukotriene modifiers are generally reserved for patients who cannot tolerate nasal sprays (due to nose bleeds) or azelastine. INHALED ASTHMA medications are often taken by using a device called a metered dose inhaler, or MDI. The MDI is a small aerosol canister in a plastic hauser. It lets out a burst of medication when it is pressed down from the top. The MDI is an aerosol and its contents are under pressure. Do not puncture or store near heat or an open flame. The MDI can be used by itself or with a device called a spacer. The spacer is a chamber that attaches to the MDI and holds the burst of medication. In this way, it lets you or your child take the medication when you are ready. Directions for using the MDI with and without the spacer are given below. Read these instructions before using the medications. Your asthma care team will also teach you or your child how to use the MDI. TO USE AN MDI WITHOUT A SPACER (These steps can be adapted to instruct your child.) 1. Remove the cap from the MDI and shake it well. 2. Hold the MDI by placing your index finger on top of the metal canister and thumb on the bottom of the plastic mouthpiece. 3. Tilt your head back slightly, open your mouth wide, and place the MDI about 2 inches in front of your mouth. 4. Breathe in and out 1 time. 5. As you begin to inhale on your next breath, press the metal canister down. Breathe in slowly (5seconds) and as deeply as you can. 6. Hold your breath for at least 10 seconds to allow the medication to deposit in the lungs. 7. Repeat the above steps after waiting at least 1 minute. Follow the dosage ordered by your doctor. 8. Replace the cap on your MDI when finished. 9. If you are using a corticosteroid MDI, gargle and rinse your mouth with water or mouthwash after each use. TO USE AN MDI WITH A SPACER (These steps can be adapted to instruct your child.) 1. Remove the cap from the MDI and spacer device. Shake well. 2. Insert the MDI into the open end of the spacer (opposite the mouthpiece). 3. Place mouthpiece of the spacer between your teeth and seal your lips tightly around it. 4. Press the canister once. 5. Breathe in slowly and completely through your mouth. If you hear a hornlike sound, you are breathing too quickly and need to slow down. 6. Hold your breath for at least 10 seconds to allow the medication to deposit in the lungs. 7. Repeat the above steps after waiting at least 1 minute. Some MDI's require more than 2 puffs. Follow the dosage ordered by your doctor. 8. Replace the cap on your MDI when finished. 9. If you are using a corticosteroid MDI, gargle and rinse your mouth with water or mouthwash after each use. CARING FOR YOUR MDI AND SPACER Rinse the plastic hauser of the MDI with warm water every 1 to 2 days to prevent the holes from getting clogged. Clean the spacer every other day. (If you are using the spacer intermittently, you may only need to clean it once a week.) Remove the soft ring at the end of the spacer and soak the spacer and ring in warm water with mild detergent. Rinse well in warm water. Air dry completely or dry carefully with a paper towel before putting back together. CHECKING YOUR METERED DOSE INHALER The number of puffs contained in your metered dose inhaler is printed on the side of the canister. After you have used that number of puffs, you must discard your inhaler even if it continues to spray. Keep track of how many puffs you have used. If you use an MDI every day for prevention, you can determine how long it will last last by dividing the total number of puffs in the MDI by the total puffs you use every day. (For example, your MDI has 200 puffs and you use a total of 4 puffs per day. Divide 200 by 4 and your MDI will last 50 days.) If you use an inhaler only when only when you need to, you must keep of how many times you spray the inhaler. If you prefer, you can obtain a device that counts down the number of puffs each time you press the inhaler. Ask your health care management associate for more information on these devices. *This information is not intended to replace the medical advice of your doctor or health care provider. Please consult your health care provider for advise about a specific medical condition.GENERAL INFORMATION: Pneumonia is a lung infection caused by bacteria, viruses, or bacteria-like germs. It usually cannot be spread to other people. INSTRUCTIONS: 1. If you are given a prescription for antibiotics, take them as ordered by your doctor until they are all gone. 2. Use a cool-mist humidifier or vaporizer to increase air moisture. This will make it easier for you to breathe. Do not use hot steam. 3. Rest in until your temperature is normal (98.6 F or 37 C) and your chest pain and shortness of breath are gone. 4. Slowly restart your normal activities. You may feel weak and tired for up to six weeks. 5. Drink at least one glass of water or other liquid every hour. This will help thin sputum and make it easier to cough up. 6. If you have chest pain, applying a heating pad or warm compresses for 10 to 20 minutes several times a day to the painful area may lessen the pain. 7. Take several deep breaths and then cough frequently during the day. This will help get rid of the infection. 8. You may take medicines that you can buy without a prescription to treat pain and fever. Use cough medicine only if absolutely necessary as coughing helps clear the infection. CONTACT YOUR DOCTOR IF: 1. Your temperature is over 102 F (39 C). 2. Your chest pain, fever or chills do not get better with medicine in 2-3 days. 3. You develop nausea, vomiting or diarrhea. 4. You are coughing up large amounts of bloody sputum. 5. You have any problems that may be related to the medicine that you are taking (such as rash, itching, swelling, or stomach pain). RETURN TO THE EMERGENCY DEPARTMENT IF: 1. You have a lot of trouble breathing or you have dark or bluish fingernails, toenails, or skin. 2. You have a severe headache, neck stiffness, or feel confused. Prescriptions ordered this encounter Disp Refills Start End AMOXICILLIN 875 MG-POTASSIUM CLAVULA* 20 t* 0 08/29/2024 09/08/2024 Route: ORAL Sig: Take 1 tablet by mouth two times a day for 10 days. BENZONATATE 100 MG CAPSULE 21 c* 0 08/29/2024 Route: ORAL Sig: Take 1 capsule by mouth three times a day as needed for cough. SALINE MIST 0.65 % NASAL SPRAY AEROS* 88 mL 2 08/29/2024 Route: NASAL Sig: Use 1 spray in the nose two times a day. AZELASTINE 137 MCG (0.1 %) NASAL SPR* 30 mL 2 08/29/2024 Route: EACH NOSTRIL Sig: Use 1 spray in each nostril two times a day. FLUTICASONE PROPIONATE 50 MCG/ACTUAT* 16 g 2 08/29/2024 Route: EACH NOSTRIL Sig: Use 2 sprays in each nostril two times a day. Rinse mouth after use. TRELEGY ELLIPTA 100 MCG-62.5 MCG-25 * 60 e* 0 08/29/2024 Route: INHALATION Sig: Inhale 1 puff as instructed once daily. Medications Discontinued During This Encounter Prescriptions - benzonatate (TESSALON PERLES) 100 mg capsule (Discontinued) Take 1 capsule by mouth three times a day as needed for cough. Encounter Status:Closed by SHOBHA VINES on 08/29/24 ROGER Observed: 08/17/2024 12:00 AM Status: COMPLETED Source: [facility] Telephone (Intexys) MCKAYLA RUSSO ([id number]) 1945 F Date Time Provider Department 08/17/24 DARRYN ANDERSON OgorodWS During your visit today, we recorded the following information about you: Moreno Joe, RN 08/17/2024 9:31 AM Signed Pt calling in to let Sultana Harvey know that she saw her [facility] [facility] physician in [place] recently and is going to be having some testing done on 09/06. Pt given fax number for Sultana Harvey to have the [employer] division manager send us notes and results. Allergies As of Date: 08/17/2024 Noted Allergy Reaction AMITRIPTYLINE 11/09/2012 14 - Other: See Comments Comments: Confusion, falls CYMBALTA (DULOXETINE) 06/07/2015 16 - Unknown DOXYCYCLINE 06/11/2011 8 - GI Upset Comments: headache EPHEDRINE 01/10/2005 14 - Other: See Comments Comments: tachycardia, but pt. states she still uses nose spray IODINE 07/29/2006 9 - Itching Comments: itching after prolonged use ISOLONE FORTE 04/06/2023 7 - Swelling LEVAQUIN (LEVOFLOXACIN) 05/26/2012 14 - Other: See Comments Comments: Achilles tendon problem LYRICA (PREGABALIN) 05/26/2012 14 - Other: See Comments Comments: Dizziness at 225mg twice daily OXYCODONE 01/21/2021 1 - Mental Status Change PERCOCET (OXYCODONE-ACETAMINOPHEN)05/29/2010 16 - Unknown SULFA (SULFONAMIDE ANTIBIOTICS) 01/10/2005 4 - Hives Comments: blisters AGGRENOX (ASPIRIN-DIPYRIDAMOLE) 12/18/2008 14 - Other: See Comments Comments: MIGRAINES AND VOMITING CEPHALEXIN (BULK) 05/12/2008 8 - GI Upset DURICEF (CEFADROXIL) 01/10/2005 4 - Hives NORTRIPTYLINE 02/11/2013 14 - Other: See Comments Comments: vertigo Date Reviewed: 06/06/2024 Reviewed by: Sultana Harvey APRN.[employer] - Fully Assessed Reason for Visit: Patient Update [1234] Cmt: on pulmonology appt Prescriptions as of 08/17/2024 - zolpidem (AMBIEN) 10 mg Take 1 tablet by mouth at bedtime as needed (insomnia) for up to 180 days. - insulin glargine (LANTUS SOLOSTAR U-100 INSULIN) 100 unit/mL (3 mL) Take 51 units once a day when in case of pump failure - clopidogrel (PLAVIX) 75 mg tablet Take 1 tablet by mouth once daily. - losartan (COZAAR) 100 mg tablet Take 1 tablet by mouth once daily. - hydrOXYchloroQUINE (PLAQUENIL) 200 mg tablet Take 1.5 tablets by mouth once daily. - pramipexole (MIRAPEX) 1 mg tablet Take 2 tablets by mouth daily at bedtime. - famotidine (PEPCID) 20 mg tablet Take 1 tablet by mouth two times a day. - guaiFENesin (MUCINEX) 600 mg 12 hr tablet Take 1 tablet by mouth two times a day. - Infusion Set for Insulin Pump (MEDTRONIC EXT INFUSION SET 23) iset 1 Each one time a week. - amLODIPine (NORVASC) 5 mg tablet Take 1 tablet by mouth once daily. - benzonatate (TESSALON PERLES) 100 mg capsule Take 1 capsule by mouth three times a day as needed for cough. - nystatin (MYCOSTATIN) powder Apply 1 application to affected area three times a day. - atorvastatin (LIPITOR) 40 mg tablet Take 1 tablet by mouth once daily. - neomycin 500 mg tablet Take 1 tablet by mouth every 12 hours. - metoclopramide HCl (REGLAN) 5 mg tablet Take 1 tablet by mouth every 6 hours for 30 days; administer 30 minutes before a meal. - Insulin Syringe-Needle U-100 (BD INSULIN SYRINGE ULTRA-FINE) 1 mL 31 gauge x 09/02 Use 4 syringes daily if insulin pump fails - blood sugar diagnostic (ACCU-CHEK GUIDE TEST STRIPS) test strip Use with blood glucose test upto four times daily - insulin lispro (HUMALOG U-100 INSULIN) 100 unit/mL injection as directed in Insulin pump up to 110 units daily. Dx E10.65 - diclofenac sodium (VOLTAREN ARTHRITIS PAIN TOPICAL) Apply 2 g to affected area as needed (pain). - lidocain-me.diwdyeq-wdsj-nlbgs 0.5-20-0.035-5 % ptmd Apply 1 Each to affected area as needed. - traMADol (ULTRAM) 50 mg tablet Take 50 mg by mouth every 6 hours as needed for pain. - albuterol HFA (PROVENTIL HFA, VENTOLIN HFA) 90 mcg/actuation inhaler Inhale 2 Puffs as instructed every 4 hours as needed for wheezing/shortness of breath. - WALKER ROLLATOR SEAT WITH 6 WHEELS - RED For ambulation - nitroglycerin (NITROLINGUAL) 400 mcg/spray spray one every 5 minutes x3 as needed - Bacillus coagulans/inulin (PROBIOTIC WITH PREBIOTIC ORAL) Take 1 capsule by mouth once daily. - aspirin 81 mg chewable tablet Take 1 tablet by mouth once daily. - Cholecalciferol, Vitamin D3, 125 mcg (5,000 unit) cap Take 1 capsule by mouth once daily. - Biotin 1 mg tab Take 1 tablet by mouth once daily. - multivitamin tablet Take 1 tablet by mouth once daily. - acetaminophen (TYLENOL 8 HOUR) 650 mg CR tablet Take 1 tablet by mouth every 8 hours as needed. Problem List As Of Date 08/17/2024 Noted Resolved Hyperlipidemia [E78.5] Hypertension [I10] Coronary artery disease involving [place]* 09/29/2019 Dizziness and Giddiness [R42] 04/30/2009 Postsurgical Percutaneous Transluminal Coronary* 04/30/2009 Mild intermittent asthma without complication [* 09/29/2019 Other psoriasis [L40.8] 09/29/2019 Disorder of bone and cartilage [M89.9, M94.9] 09/29/2019 ESOPHAGITIS [530.1] Diverticulosis of Colon (without Mention of Hem* 04/30/2009 External Hemorrhoids without Mention of Complic* 04/30/2009 Internal Hemorrhoids without Mention of Complic* 04/30/2009 Allergic Rhinitis, Cause Unspecified [J30.9] 01/13/2005 06/25/2015 Ingrowing Nail [L60.0] 03/20/2005 04/30/2009 Pain in Soft Tissues of Limb [M79.609] 03/20/2005 04/30/2009 CARPAL TUNNEL BILATERRAL [M13.149] 08/08/2005 09/29/2019 Nonspecific Abnormal Results of Liver Function *08/08/2005 04/30/2009 OVERWEIGHT [E66.9] 08/08/2005 04/30/2009 Dermatophytosis of Nail [B35.1] 09/04/2005 04/30/2009 Depression [F32.5] 12/18/2005 Anxiety state [F41.1] 12/18/2005 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] 03/23/2006 04/30/2009 Pain in Joint, Shoulder Region [M25.519] 05/22/2006 04/30/2009 Neck Sprain and Strain [S13.9XXA] 05/22/2006 04/30/2009 Onychia and Paronychia of Toe [L03.039] 08/11/2006 04/30/2009 Cellulitis and Abscess of Foot, except Toes [L0*08/24/2006 04/30/2009 Rheumatoid arthritis (HCC) [M06.9] 12/04/2006 Anemia, unspecified [D64.9] 12/04/2006 09/29/2019 Sleep apnea [G47.30] 03/08/2007 Acute Bronchitis [J20.9] 05/18/2008 04/30/2009 Tenosynovitis of Foot and Ankle [M65.979] 06/29/2008 04/30/2009 Vitamin deficiency [E56.9] 04/23/2009 Routine general medical examination at [facility]*04/30/2009 06/25/2015 Class: Chronic Routine gynecological examination [Z01.419] 04/30/2009 06/25/2015 Class: Chronic Diverticulosis of colon [K57.30] 04/30/2009 Cerebral infarction (HCC) [I63.9] 07/16/2009 Pain in joint, lower leg [M25.569] 01/21/2010 06/25/2015 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] 04/25/2010 Restless legs syndrome (RLS) [G25.81] 06/25/2010 Calcifying tendinitis of shoulder [M75.30] 07/09/2010 Venous insufficiency [I87.2] 09/08/2011 Thoracic or lumbosacral neuritis or radiculitis*03/01/2012 09/29/2019 Abnormality of gait [R26.9] 03/01/2012 06/25/2015 Vertigo [R42] 02/02/2013 06/25/2015 Cervicalgia [M54.2] 08/04/2014 Gait abnormality [R26.9] 08/04/2014 BPPV (benign paroxysmal positional vertigo) [H8*02/11/2015 09/29/2019 Obstructive sleep apnea syndrome [G47.33] 06/08/2015 Mixed hyperlipidemia [E78.2] 06/08/2015 GERD (gastroesophageal reflux disease) [K21.9] 08/09/2015 RLS (restless legs syndrome) [G25.81] 08/09/2015 Insomnia [G47.00] 08/09/2015 Vertigo [R42] 08/12/2015 09/29/2019 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/2015 Coronary artery disease [I25.10] 08/29/2015 Mild nonproliferative diabetic retinopathy of b*12/06/2018 Hypoglycemia unawareness in type 1 diabetes emre*01/18/2019 Other dysphagia [R13.19] 07/18/2019 09/29/2019 DKA (diabetic ketoacidoses) ([facility]) [E11.10] 09/28/2019 10/18/2020 Asthma [J45.909] 09/29/2019 SHERLYN (acute kidney injury) ([facility]) [N17.9] 09/29/2019 09/30/2019 H/O multiple allergies [Z88.9] 06/19/[address] [Z96.41] 07/10/2020 Type 1 diabetes mellitus with mild nonprolifera*10/18/2020 Type 1 diabetes mellitus with diabetic neuropat*10/18/2020 Class 2 severe obesity with serious comorbidity*10/18/2020 Bilateral carotid artery stenosis [I65.23] 05/10/2021 Encounter Status:Closed by MORENO JOE on 08/17/24 ROGER Observed: 08/11/2024 12:00 AM Status: COMPLETED Source: [facility] Telephone (INTMWS) MCKAYLA RUSSO ([id number]) 1945 F Date Time Provider Department 08/11/24 DARRYN ANDERSON INTMWS During your visit today, we recorded the following information about you: Rosalba Ren, LUMA 08/11/2024 9:09 AM Signed Pt called in and reports her Medicare is going to be sending a form to her PCPs office she states they will only allow her 90 tablets of Ambien in a year. The form should be for the provider to states that the medication is a necessity for the patient. Please sign and send this form back in when provider receives it. Sultana Harvey APRN.TIM 08/11/2024 12:30 PM Signed Noted. Please place on desk when received. Thank you Sultana Harvey APRN.Alba Jay LPN 08/11/2024 1:36 PM Signed Rec'd. Alba Valencia LPN 08/11/2024 3:51 PM Signed Completed and faxed to number on the form. This has been approved from 05/13/24 to 04/19/25. Alba Valencia LPN 08/11/2024 3:51 PM Signed Pt notified via my chart. Allergies As of Date: 08/11/2024 Noted Allergy Reaction AMITRIPTYLINE 11/09/2012 14 - Other: See Comments Comments: Confusion, falls CYMBALTA (DULOXETINE) 06/07/2015 16 - Unknown DOXYCYCLINE 06/11/2011 8 - GI Upset Comments: headache EPHEDRINE 01/10/2005 14 - Other: See Comments Comments: tachycardia, but pt. states she still uses nose spray IODINE 07/29/2006 9 - Itching Comments: itching after prolonged use ISOLONE FORTE 04/06/2023 7 - Swelling LEVAQUIN (LEVOFLOXACIN) 05/26/2012 14 - Other: See Comments Comments: Achilles tendon problem LYRICA (PREGABALIN) 05/26/2012 14 - Other: See Comments Comments: Dizziness at 225mg twice daily OXYCODONE 01/21/2021 1 - Mental Status Change PERCOCET (OXYCODONE-ACETAMINOPHEN)05/29/2010 16 - Unknown SULFA (SULFONAMIDE ANTIBIOTICS) 01/10/2005 4 - Hives Comments: blisters AGGRENOX (ASPIRIN-DIPYRIDAMOLE) 12/18/2008 14 - Other: See Comments Comments: MIGRAINES AND VOMITING CEPHALEXIN (BULK) 05/12/2008 8 - GI Upset DURICEF (CEFADROXIL) 01/10/2005 4 - Hives NORTRIPTYLINE 02/11/2013 14 - Other: See Comments Comments: vertigo Date Reviewed: 06/06/2024 Reviewed by: Sultana Harvey APRN.[employer] - Fully Assessed Reason for Visit: Medication Problem [65] Prescriptions as of 08/11/2024 - zolpidem (AMBIEN) 10 mg Take 1 tablet by mouth at bedtime as needed (insomnia) for up to 180 days. - insulin glargine (LANTUS SOLOSTAR U-100 INSULIN) 100 unit/mL (3 mL) Take 51 units once a day when in case of pump failure - clopidogrel (PLAVIX) 75 mg tablet Take 1 tablet by mouth once daily. - losartan (COZAAR) 100 mg tablet Take 1 tablet by mouth once daily. - hydrOXYchloroQUINE (PLAQUENIL) 200 mg tablet Take 1.5 tablets by mouth once daily. - pramipexole (MIRAPEX) 1 mg tablet Take 2 tablets by mouth daily at bedtime. - famotidine (PEPCID) 20 mg tablet Take 1 tablet by mouth two times a day. - guaiFENesin (MUCINEX) 600 mg 12 hr tablet Take 1 tablet by mouth two times a day. - Infusion Set for Insulin Pump (MEDTRONIC EXT INFUSION SET 23) iset 1 Each one time a week. - amLODIPine (NORVASC) 5 mg tablet Take 1 tablet by mouth once daily. - benzonatate (TESSALON PERLES) 100 mg capsule Take 1 capsule by mouth three times a day as needed for cough. - nystatin (MYCOSTATIN) powder Apply 1 application to affected area three times a day. - atorvastatin (LIPITOR) 40 mg tablet Take 1 tablet by mouth once daily. - neomycin 500 mg tablet Take 1 tablet by mouth every 12 hours. - metoclopramide HCl (REGLAN) 5 mg tablet Take 1 tablet by mouth every 6 hours for 30 days; administer 30 minutes before a meal. - Insulin Syringe-Needle U-100 (BD INSULIN SYRINGE ULTRA-FINE) 1 mL 31 gauge x 5/16 Use 4 syringes daily if insulin pump fails - blood sugar diagnostic (ACCU-CHEK GUIDE TEST STRIPS) test strip Use with blood glucose test upto four times daily - insulin lispro (HUMALOG U-100 INSULIN) 100 unit/mL injection as directed in Insulin pump up to 110 units daily. Dx E10.65 - diclofenac sodium (VOLTAREN ARTHRITIS PAIN TOPICAL) Apply 2 g to affected area as needed (pain). - lidocain-me.vsvdjaw-apxl-bcgav 0.5-20-0.035-5 % ptmd Apply 1 Each to affected area as needed. - traMADol (ULTRAM) 50 mg tablet Take 50 mg by mouth every 6 hours as needed for pain. - albuterol HFA (PROVENTIL HFA, VENTOLIN HFA) 90 mcg/actuation inhaler Inhale 2 Puffs as instructed every 4 hours as needed for wheezing/shortness of breath. - WALKER ROLLATOR SEAT WITH 6 WHEELS - RED For ambulation - nitroglycerin (NITROLINGUAL) 400 mcg/spray spray one every 5 minutes x3 as needed - Bacillus coagulans/inulin (PROBIOTIC WITH PREBIOTIC ORAL) Take 1 capsule by mouth once daily. - aspirin 81 mg chewable tablet Take 1 tablet by mouth once daily. - Cholecalciferol, Vitamin D3, 125 mcg (5,000 unit) cap Take 1 capsule by mouth once daily. - Biotin 1 mg tab Take 1 tablet by mouth once daily. - multivitamin tablet Take 1 tablet by mouth once daily. - acetaminophen (TYLENOL 8 HOUR) 650 mg CR tablet Take 1 tablet by mouth every 8 hours as needed. Problem List As Of Date 08/11/2024 Noted Resolved Hyperlipidemia [E78.5] Hypertension [I10] Coronary artery disease involving [place]* 09/29/2019 Dizziness and Giddiness [R42] 04/30/2009 Postsurgical Percutaneous Transluminal Coronary* 04/30/2009 Mild intermittent asthma without complication [* 09/29/2019 Other psoriasis [L40.8] 09/29/2019 Disorder of bone and cartilage [M89.9, M94.9] 09/29/2019 ESOPHAGITIS [530.1] Diverticulosis of Colon (without Mention of Hem* 04/30/2009 External Hemorrhoids without Mention of Complic* 04/30/2009 Internal Hemorrhoids without Mention of Complic* 04/30/2009 Allergic Rhinitis, Cause Unspecified [J30.9] 01/13/2005 06/25/2015 Ingrowing Nail [L60.0] 03/20/2005 04/30/2009 Pain in Soft Tissues of Limb [M79.609] 03/20/2005 04/30/2009 CARPAL TUNNEL BILATERRAL [M13.149] 08/08/2005 09/29/2019 Nonspecific Abnormal Results of Liver Function *08/08/2005 04/30/2009 OVERWEIGHT [E66.9] 08/08/2005 04/30/2009 Dermatophytosis of Nail [B35.1] 09/04/2005 04/30/2009 Depression [F32.5] 12/18/2005 Anxiety state [F41.1] 12/18/2005 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] 03/23/2006 04/30/2009 Pain in Joint, Shoulder Region [M25.519] 05/22/2006 04/30/2009 Neck Sprain and Strain [S13.9XXA] 05/22/2006 04/30/2009 Onychia and Paronychia of Toe [L03.039] 08/11/2006 04/30/2009 Cellulitis and Abscess of Foot, except Toes [L0*08/24/2006 04/30/2009 Rheumatoid arthritis (HCC) [M06.9] 12/04/2006 Anemia, unspecified [D64.9] 12/04/2006 09/29/2019 Sleep apnea [G47.30] 03/08/2007 Acute Bronchitis [J20.9] 05/18/2008 04/30/2009 Tenosynovitis of Foot and Ankle [M65.979] 06/29/2008 04/30/2009 Vitamin deficiency [E56.9] 04/23/2009 Routine general medical examination at [facility]*04/30/2009 06/25/2015 Class: Chronic Routine gynecological examination [Z01.419] 04/30/2009 06/25/2015 Class: Chronic Diverticulosis of colon [K57.30] 04/30/2009 Cerebral infarction (HCC) [I63.9] 07/16/2009 Pain in joint, lower leg [M25.569] 01/21/2010 06/25/2015 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] 04/25/2010 Restless legs syndrome (RLS) [G25.81] 06/25/2010 Calcifying tendinitis of shoulder [M75.30] 07/09/2010 Venous insufficiency [I87.2] 09/08/2011 Thoracic or lumbosacral neuritis or radiculitis*03/01/2012 09/29/2019 Abnormality of gait [R26.9] 03/01/2012 06/25/2015 Vertigo [R42] 02/02/2013 06/25/2015 Cervicalgia [M54.2] 08/04/2014 Gait abnormality [R26.9] 08/04/2014 BPPV (benign paroxysmal positional vertigo) [H8*02/11/2015 09/29/2019 Obstructive sleep apnea syndrome [G47.33] 06/08/2015 Mixed hyperlipidemia [E78.2] 06/08/2015 GERD (gastroesophageal reflux disease) [K21.9] 08/09/2015 RLS (restless legs syndrome) [G25.81] 08/09/2015 Insomnia [G47.00] 08/09/2015 Vertigo [R42] 08/12/2015 09/29/2019 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/2015 Coronary artery disease [I25.10] 08/29/2015 Mild nonproliferative diabetic retinopathy of b*12/06/2018 Hypoglycemia unawareness in type 1 diabetes emre*01/18/2019 Other dysphagia [R13.19] 07/18/2019 09/29/2019 DKA (diabetic ketoacidoses) (HCC) [E11.10] 09/28/2019 10/18/2020 Asthma [J45.909] 09/29/2019 SHERLYN (acute kidney injury) (HCC) [N17.9] 09/29/2019 09/30/2019 H/O multiple allergies [Z88.9] 06/19/[address] [Z96.41] 07/10/2020 Type 1 diabetes mellitus with mild nonprolifera*10/18/2020 Type 1 diabetes mellitus with diabetic neuropat*10/18/2020 Class 2 severe obesity with serious comorbidity*10/18/2020 Bilateral carotid artery stenosis [I65.23] 05/10/2021 Encounter Status:Closed by ALBA VALENCIA on 08/11/24 CNPN Observed: 08/04/2024 12:00 AM Status: COMPLETED Source: [facility] Telephone (ENWSTR) MCKAYLA RUSSO ([id number]) 1945 F Date Time Provider Department 08/04/24 EVA NIELSEN ENWSTR During your visit today, we recorded the following information about you: Magalys Mera RN 08/04/2024 9:18 AM Signed Certificate of medical necessity (CMN) completed and signed by Dr. Nielsen for Pt's insulin pump and supplies faxed back to [facility]. Fax confirmation received. Magalys Mera RN August 04, 2024 9:18 AM Ana Harrison RN 08/04/2024 11:37 AM Signed [employer] called in and GABY notes faxed per their request. Ana Harrison RN Allergies As of Date: 08/04/2024 Noted Allergy Reaction AMITRIPTYLINE 11/09/2012 14 - Other: See Comments Comments: Confusion, falls CYMBALTA (DULOXETINE) 06/07/2015 16 - Unknown DOXYCYCLINE 06/11/2011 8 - GI Upset Comments: headache EPHEDRINE 01/10/2005 14 - Other: See Comments Comments: tachycardia, but pt. states she still uses nose spray IODINE 07/29/2006 9 - Itching Comments: itching after prolonged use ISOLONE FORTE 04/06/2023 7 - Swelling LEVAQUIN (LEVOFLOXACIN) 05/26/2012 14 - Other: See Comments Comments: Achilles tendon problem LYRICA (PREGABALIN) 05/26/2012 14 - Other: See Comments Comments: Dizziness at 225mg twice daily OXYCODONE 01/21/2021 1 - Mental Status Change PERCOCET (OXYCODONE-ACETAMINOPHEN)05/29/2010 16 - Unknown SULFA (SULFONAMIDE ANTIBIOTICS) 01/10/2005 4 - Hives Comments: blisters AGGRENOX (ASPIRIN-DIPYRIDAMOLE) 12/18/2008 14 - Other: See Comments Comments: MIGRAINES AND VOMITING CEPHALEXIN (BULK) 05/12/2008 8 - GI Upset DURICEF (CEFADROXIL) 01/10/2005 4 - Hives NORTRIPTYLINE 02/11/2013 14 - Other: See Comments Comments: vertigo Date Reviewed: 06/06/2024 Reviewed by: Sultana Harvey APRN.[employer] - Fully Assessed Reason for Visit: Certificate of Medical Necessity [Other] Prescriptions as of 08/04/2024 - zolpidem (AMBIEN) 10 mg Take 1 tablet by mouth at bedtime as needed (insomnia) for up to 180 days. - insulin glargine (LANTUS SOLOSTAR U-100 INSULIN) 100 unit/mL (3 mL) Take 51 units once a day when in case of pump failure - clopidogrel (PLAVIX) 75 mg tablet Take 1 tablet by mouth once daily. - losartan (COZAAR) 100 mg tablet Take 1 tablet by mouth once daily. - hydrOXYchloroQUINE (PLAQUENIL) 200 mg tablet Take 1.5 tablets by mouth once daily. - pramipexole (MIRAPEX) 1 mg tablet Take 2 tablets by mouth daily at bedtime. - famotidine (PEPCID) 20 mg tablet Take 1 tablet by mouth two times a day. - guaiFENesin (MUCINEX) 600 mg 12 hr tablet Take 1 tablet by mouth two times a day. - Infusion Set for Insulin Pump (MEDTRONIC EXT INFUSION SET 23) iset 1 Each one time a week. - amLODIPine (NORVASC) 5 mg tablet Take 1 tablet by mouth once daily. - benzonatate (TESSALON PERLES) 100 mg capsule Take 1 capsule by mouth three times a day as needed for cough. - nystatin (MYCOSTATIN) powder Apply 1 application to affected area three times a day. - atorvastatin (LIPITOR) 40 mg tablet Take 1 tablet by mouth once daily. - neomycin 500 mg tablet Take 1 tablet by mouth every 12 hours. - metoclopramide HCl (REGLAN) 5 mg tablet Take 1 tablet by mouth every 6 hours for 30 days; administer 30 minutes before a meal. - Insulin Syringe-Needle U-100 (BD INSULIN SYRINGE ULTRA-FINE) 1 mL 31 gauge x 5/16 Use 4 syringes daily if insulin pump fails - blood sugar diagnostic (ACCU-CHEK GUIDE TEST STRIPS) test strip Use with blood glucose test upto four times daily - insulin lispro (HUMALOG U-100 INSULIN) 100 unit/mL injection as directed in Insulin pump up to 110 units daily. Dx E10.65 - diclofenac sodium (VOLTAREN ARTHRITIS PAIN TOPICAL) Apply 2 g to affected area as needed (pain). - lidocain-me.iuihxae-inpa-umdve 0.5-20-0.035-5 % ptmd Apply 1 Each to affected area as needed. - traMADol (ULTRAM) 50 mg tablet Take 50 mg by mouth every 6 hours as needed for pain. - albuterol HFA (PROVENTIL HFA, VENTOLIN HFA) 90 mcg/actuation inhaler Inhale 2 Puffs as instructed every 4 hours as needed for wheezing/shortness of breath. - WALKER ROLLATOR SEAT WITH 6 WHEELS - RED For ambulation - nitroglycerin (NITROLINGUAL) 400 mcg/spray spray one every 5 minutes x3 as needed - Bacillus coagulans/inulin (PROBIOTIC WITH PREBIOTIC ORAL) Take 1 capsule by mouth once daily. - aspirin 81 mg chewable tablet Take 1 tablet by mouth once daily. - Cholecalciferol, Vitamin D3, 125 mcg (5,000 unit) cap Take 1 capsule by mouth once daily. - Biotin 1 mg tab Take 1 tablet by mouth once daily. - multivitamin tablet Take 1 tablet by mouth once daily. - acetaminophen (TYLENOL 8 HOUR) 650 mg CR tablet Take 1 tablet by mouth every 8 hours as needed. Problem List As Of Date 08/04/2024 Noted Resolved Hyperlipidemia [E78.5] Hypertension [I10] Coronary artery disease involving [place]* 09/29/2019 Dizziness and Giddiness [R42] 04/30/2009 Postsurgical Percutaneous Transluminal Coronary* 04/30/2009 Mild intermittent asthma without complication [* 09/29/2019 Other psoriasis [L40.8] 09/29/2019 Disorder of bone and cartilage [M89.9, M94.9] 09/29/2019 ESOPHAGITIS [530.1] Diverticulosis of Colon (without Mention of Hem* 04/30/2009 External Hemorrhoids without Mention of Complic* 04/30/2009 Internal Hemorrhoids without Mention of Complic* 04/30/2009 Allergic Rhinitis, Cause Unspecified [J30.9] 01/13/2005 06/25/2015 Ingrowing Nail [L60.0] 03/20/2005 04/30/2009 Pain in Soft Tissues of Limb [M79.609] 03/20/2005 04/30/2009 CARPAL TUNNEL BILATERRAL [M13.149] 08/08/2005 09/29/2019 Nonspecific Abnormal Results of Liver Function *08/08/2005 04/30/2009 OVERWEIGHT [E66.9] 08/08/2005 04/30/2009 Dermatophytosis of Nail [B35.1] 09/04/2005 04/30/2009 Depression [F32.5] 12/18/2005 Anxiety state [F41.1] 12/18/2005 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] 03/23/2006 04/30/2009 Pain in Joint, Shoulder Region [M25.519] 05/22/2006 04/30/2009 Neck Sprain and Strain [S13.9XXA] 05/22/2006 04/30/2009 Onychia and Paronychia of Toe [L03.039] 08/11/2006 04/30/2009 Cellulitis and Abscess of Foot, except Toes [L0*08/24/2006 04/30/2009 Rheumatoid arthritis (HCC) [M06.9] 12/04/2006 Anemia, unspecified [D64.9] 12/04/2006 09/29/2019 Sleep apnea [G47.30] 03/08/2007 Acute Bronchitis [J20.9] 05/18/2008 04/30/2009 Tenosynovitis of Foot and Ankle [M65.979] 06/29/2008 04/30/2009 Vitamin deficiency [E56.9] 04/23/2009 Routine general medical examination at [facility]*04/30/2009 06/25/2015 Class: Chronic Routine gynecological examination [Z01.419] 04/30/2009 06/25/2015 Class: Chronic Diverticulosis of colon [K57.30] 04/30/2009 Cerebral infarction (HCC) [I63.9] 07/16/2009 Pain in joint, lower leg [M25.569] 01/21/2010 06/25/2015 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] 04/25/2010 Restless legs syndrome (RLS) [G25.81] 06/25/2010 Calcifying tendinitis of shoulder [M75.30] 07/09/2010 Venous insufficiency [I87.2] 09/08/2011 Thoracic or lumbosacral neuritis or radiculitis*03/01/2012 09/29/2019 Abnormality of gait [R26.9] 03/01/2012 06/25/2015 Vertigo [R42] 02/02/2013 06/25/2015 Cervicalgia [M54.2] 08/04/2014 Gait abnormality [R26.9] 08/04/2014 BPPV (benign paroxysmal positional vertigo) [H8*02/11/2015 09/29/2019 Obstructive sleep apnea syndrome [G47.33] 06/08/2015 Mixed hyperlipidemia [E78.2] 06/08/2015 GERD (gastroesophageal reflux disease) [K21.9] 08/09/2015 RLS (restless legs syndrome) [G25.81] 08/09/2015 Insomnia [G47.00] 08/09/2015 Vertigo [R42] 08/12/2015 09/29/2019 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/2015 Coronary artery disease [I25.10] 08/29/2015 Mild nonproliferative diabetic retinopathy of b*12/06/2018 Hypoglycemia unawareness in type 1 diabetes emre*01/18/2019 Other dysphagia [R13.19] 07/18/2019 09/29/2019 DKA (diabetic ketoacidoses) ([facility]) [E11.10] 09/28/2019 10/18/2020 Asthma [J45.909] 09/29/2019 SHERLYN (acute kidney injury) ([facility]) [N17.9] 09/29/2019 09/30/2019 H/O multiple allergies [Z88.9] 06/19/[address] [Z96.41] 07/10/2020 Type 1 diabetes mellitus with mild nonprolifera*10/18/2020 Type 1 diabetes mellitus with diabetic neuropat*10/18/2020 Class 2 severe obesity with serious comorbidity*10/18/2020 Bilateral carotid artery stenosis [I65.23] 05/10/2021 Encounter Status:Closed by MAGALYS MERA on 08/04/24 CNPN Observed: 06/08/2024 12:00 AM Status: COMPLETED Source: [facility] Telephone (PULMMN) RUSSOMEGAN OCASIOEEN ([id number]) 1945 F Date Time Provider Department 06/08/24 JOEY GONZALEZ During your visit today, we recorded the following information about you: Joey Gonzalez, RN 06/08/2024 10:54 AM Signed Interstitial Lung Disease Referral Intake Patient: Mckayla Russo Date: June 08, 2024 10:50 AM Schedulers: --Please schedule patient with any ILD provider ILD Dr. Ilene Casillas: [facility]. Dr. Roslyn Chicas: [facility] AND [place] (2023). Dr. Tay Ponce: [facility] AND [facility]. Dr. Ada Donato: [facility] AND [place]. Dr. Ange Marcelino: [facility]. ILD/Sarcoid Dr. Romy Zazueta: [facility] AND [place]. Dr. Doug Mckeon: [facility] AND [facility] Dr. Bryan Perla: [facility] and [facility] Dr. Rajan Oh: [facility], [facility]), AND [place]. Dr. Chavez Monroe: [facility] AND [place]. Dr. Adelfo Munroe: [facility], [facility] AND [facility] ([facility]). Sarcoid/ILD Pulmonary [place]: [facility] ( afternoon). Dr. Ange Marcelino: [facility]. AND [place]. ILD/Sarcoid/Beryllium/Occupational Dr. Patricia Armenta: [facility], [facility], AND [place]. Testing needed: Spirometry w/ bronchodilator if obstructed, DLCO, and High Resolution CT Chest. MyChart: Already set up. *Remind patient to bring imaging disc in hand. Consult information: Referred by: Dr. Alyssa Villanueva Office name/city: [facility] Diagnosis: ILD (possibly related to RA) CT chest: yes, requesting Most recent date: 08/14/2023 Location performed: [facility] Biopsy: None Type: Date: Location performed: Current or past treatment (for the ILD diagnosis): albuterol, tessalon pearles, plaquenil, Have you ever been told that you [...] and hand carry this to your appointment. Joey Gonzalez RN Allergies As of Date: 06/08/2024 Noted Allergy Reaction AMITRIPTYLINE 11/09/2012 14 - Other: See Comments Comments: Confusion, falls CYMBALTA (DULOXETINE) 06/07/2015 16 - Unknown DOXYCYCLINE 06/11/2011 8 - GI Upset Comments: headache EPHEDRINE 01/10/2005 14 - Other: See Comments Comments: tachycardia, but pt. states she still uses nose spray IODINE 07/29/2006 9 - Itching Comments: itching after prolonged use ISOLONE FORTE 04/06/2023 7 - Swelling LEVAQUIN (LEVOFLOXACIN) 05/26/2012 14 - Other: See Comments Comments: Achilles tendon problem LYRICA (PREGABALIN) 05/26/2012 14 - Other: See Comments Comments: Dizziness at 225mg twice daily OXYCODONE 01/21/2021 1 - Mental Status Change PERCOCET (OXYCODONE-ACETAMINOPHEN)05/29/2010 16 - Unknown SULFA (SULFONAMIDE ANTIBIOTICS) 01/10/2005 4 - Hives Comments: blisters AGGRENOX (ASPIRIN-DIPYRIDAMOLE) 12/18/2008 14 - Other: See Comments Comments: MIGRAINES AND VOMITING CEPHALEXIN (BULK) 05/12/2008 8 - GI Upset DURICEF (CEFADROXIL) 01/10/2005 4 - Hives NORTRIPTYLINE 02/11/2013 14 - Other: See Comments Comments: vertigo Date Reviewed: 06/06/2024 Reviewed by: Sultana Harvey APRN.[employer] [employer] - Fully Assessed Reason for Visit: New ILD [Other] Primary Visit Diagnosis:ILD (interstitial lung disease) (HCC) [J84.9] Other Visit Diagnosis:Interstitial pulmonary disease (HCC) [J84.9] Order(s):SPIROMETRY WITH DILATOR IF OBSTRUCTED [0867144] Order #: [id number]: 1 FUTURE LUNG DIFFUSION CAPACITY (DLCO) [3970211] Order #: [id number]: [address] CHEST WO IVCON [4035631] Order #: [id number] FUTURE Prescriptions as of 06/08/2024 - insulin glargine (LANTUS SOLOSTAR U-100 INSULIN) 100 unit/mL (3 mL) Take 51 units once a day when in case of pump failure - clopidogrel (PLAVIX) 75 mg tablet Take 1 tablet by mouth once daily. - losartan (COZAAR) 100 mg tablet Take 1 tablet by mouth once daily. - hydrOXYchloroQUINE (PLAQUENIL) 200 mg tablet Take 1.5 tablets by mouth once daily. - zolpidem (AMBIEN) 10 mg Take 1 tablet by mouth at bedtime as needed (insomnia) for up to 90 days. Patient should start on June 06, 2024. - pramipexole (MIRAPEX) 1 mg tablet Take 2 tablets by mouth daily at bedtime. - famotidine (PEPCID) 20 mg tablet Take 1 tablet by mouth two times a day. - guaiFENesin (MUCINEX) 600 mg 12 hr tablet Take 1 tablet by mouth two times a day. - Infusion Set for Insulin Pump (TreeveoTRONIC EXT INFUSION SET 23) iset 1 Each one time a week. - amLODIPine (NORVASC) 5 mg tablet Take 1 tablet by mouth once daily. - benzonatate (TESSALON PERLES) 100 mg capsule Take 1 capsule by mouth three times a day as needed for cough. - nystatin (MYCOSTATIN) powder Apply 1 application to affected area three times a day. - atorvastatin (LIPITOR) 40 mg tablet Take 1 tablet by mouth once daily. - neomycin 500 mg tablet Take 1 tablet by mouth every 12 hours. - metoclopramide HCl (REGLAN) 5 mg tablet Take 1 tablet by mouth every 6 hours for 30 days; administer 30 minutes before a meal. - Insulin Syringe-Needle U-100 (BD INSULIN SYRINGE ULTRA-FINE) 1 mL 31 gauge x 5/16 Use 4 syringes daily if insulin pump fails - blood sugar diagnostic (ACCU-CHEK GUIDE TEST STRIPS) test strip Use with blood glucose test upto four times daily - insulin lispro (HUMALOG U-100 INSULIN) 100 unit/mL injection as directed in Insulin pump up to 110 units daily. Dx E10.65 - diclofenac sodium (VOLTAREN ARTHRITIS PAIN TOPICAL) Apply 2 g to affected area as needed (pain). - lidocain-me.xccjfgu-fmns-qppxs 0.5-20-0.035-5 % ptmd Apply 1 Each to affected area as needed. - traMADol (ULTRAM) 50 mg tablet Take 50 mg by mouth every 6 hours as needed for pain. - albuterol HFA (PROVENTIL HFA, VENTOLIN HFA) 90 mcg/actuation inhaler Inhale 2 Puffs as instructed every 4 hours as needed for wheezing/shortness of breath. - WALKER ROLLATOR SEAT WITH 6 WHEELS - RED For ambulation - nitroglycerin (NITROLINGUAL) 400 mcg/spray spray one every 5 minutes x3 as needed - Bacillus coagulans/inulin (PROBIOTIC WITH PREBIOTIC ORAL) Take 1 capsule by mouth once daily. - aspirin 81 mg chewable tablet Take 1 tablet by mouth once daily. - Cholecalciferol, Vitamin D3, 125 mcg (5,000 unit) cap Take 1 capsule by mouth once daily. - Biotin 1 mg tab Take 1 tablet by mouth once daily. - multivitamin tablet Take 1 tablet by mouth once daily. - acetaminophen (TYLENOL 8 HOUR) 650 mg CR tablet Take 1 tablet by mouth every 8 hours as needed. Problem List As Of Date 06/08/2024 Noted Resolved Hyperlipidemia [E78.5] Hypertension [I10] Coronary artery disease involving [place]* 09/29/2019 Dizziness and Giddiness [R42] 04/30/2009 Postsurgical Percutaneous Transluminal Coronary* 04/30/2009 Mild intermittent asthma without complication [* 09/29/2019 Other psoriasis [L40.8] 09/29/2019 Disorder of bone and cartilage [M89.9, M94.9] 09/29/2019 ESOPHAGITIS [530.1] Diverticulosis of Colon (without Mention of Hem* 04/30/2009 External Hemorrhoids without Mention of Complic* 04/30/2009 Internal Hemorrhoids without Mention of Complic* 04/30/2009 Allergic Rhinitis, Cause Unspecified [J30.9] 01/13/2005 06/25/2015 Ingrowing Nail [L60.0] 03/20/2005 04/30/2009 Pain in Soft Tissues of Limb [M79.609] 03/20/2005 04/30/2009 CARPAL TUNNEL BILATERRAL [M13.149] 08/08/2005 09/29/2019 Nonspecific Abnormal Results of Liver Function *08/08/2005 04/30/2009 OVERWEIGHT [E66.9] 08/08/2005 04/30/2009 Dermatophytosis of Nail [B35.1] 09/04/2005 04/30/2009 Depression [F32.5] 12/18/2005 Anxiety state [F41.1] 12/18/2005 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] 03/23/2006 04/30/2009 Pain in Joint, Shoulder Region [M25.519] 05/22/2006 04/30/2009 Neck Sprain and Strain [S13.9XXA] 05/22/2006 04/30/2009 Onychia and Paronychia of Toe [L03.039] 08/11/2006 04/30/2009 Cellulitis and Abscess of Foot, except Toes [L0*08/24/2006 04/30/2009 Rheumatoid arthritis (HCC) [M06.9] 12/04/2006 Anemia, unspecified [D64.9] 12/04/2006 09/29/2019 Sleep apnea [G47.30] 03/08/2007 Acute Bronchitis [J20.9] 05/18/2008 04/30/2009 Tenosynovitis of Foot and Ankle [M65.979] 06/29/2008 04/30/2009 Vitamin deficiency [E56.9] 04/23/2009 Routine general medical examination at [facility]*04/30/2009 06/25/2015 Class: Chronic Routine gynecological examination [Z01.419] 04/30/2009 06/25/2015 Class: Chronic Diverticulosis of colon [K57.30] 04/30/2009 Cerebral infarction (HCC) [I63.9] 07/16/2009 Pain in joint, lower leg [M25.569] 01/21/2010 06/25/2015 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] 04/25/2010 Restless legs syndrome (RLS) [G25.81] 06/25/2010 Calcifying tendinitis of shoulder [M75.30] 07/09/2010 Venous insufficiency [I87.2] 09/08/2011 Thoracic or lumbosacral neuritis or radiculitis*03/01/2012 09/29/2019 Abnormality of gait [R26.9] 03/01/2012 06/25/2015 Vertigo [R42] 02/02/2013 06/25/2015 Cervicalgia [M54.2] 08/04/2014 Gait abnormality [R26.9] 08/04/2014 BPPV (benign paroxysmal positional vertigo) [H8*02/11/2015 09/29/2019 Obstructive sleep apnea syndrome [G47.33] 06/08/2015 Mixed hyperlipidemia [E78.2] 06/08/2015 GERD (gastroesophageal reflux disease) [K21.9] 08/09/2015 RLS (restless legs syndrome) [G25.81] 08/09/2015 Insomnia [G47.00] 08/09/2015 Vertigo [R42] 08/12/2015 09/29/2019 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/2015 Coronary artery disease [I25.10] 08/29/2015 Mild nonproliferative diabetic retinopathy of b*12/06/2018 Hypoglycemia unawareness in type 1 diabetes emre*01/18/2019 Other dysphagia [R13.19] 07/18/2019 09/29/2019 DKA (diabetic ketoacidoses) ([facility]) [E11.10] 09/28/2019 10/18/2020 Asthma [J45.909] 09/29/2019 SHERLYN (acute kidney injury) ([facility]) [N17.9] 09/29/2019 09/30/2019 H/O multiple allergies [Z88.9] 06/19/[address] [Z96.41] 07/10/2020 Type 1 diabetes mellitus with mild nonprolifera*10/18/2020 Type 1 diabetes mellitus with diabetic neuropat*10/18/2020 Class 2 severe obesity with serious comorbidity*10/18/2020 Bilateral carotid artery stenosis [I65.23] 05/10/2021 Encounter Status:Closed by JOEY GONZALEZ on 06/08/24 PROGRESS Observed: 06/06/2024 7:28 AM Status: COMPLETED Source: [facility] ID: [id number] Author: SULTANA HARVEY APRN.[employer] [facility] Service: ? Author Type: Nurse Practitioner Type: Progress Notes Filed: 06/06/2024 08:08 Note Text: CC: Patient presents with: Recheck: Medication follow up HPI Mckayla Russo is a 78 year old female who presents today for follow up on medications. Chronic Insomnia: Ambien working well. Getting 6 or more hours of sleep with current dose and tolerating well. Denies falls, confusion, or new concerns. Still with sinusitis. Following with ENT in [place], Dr. Umaña. Has a CT of the sinuses scheduled today at [facility]. HTN: Ms. Russo denies headache, chest pain, palpitations, change in chronic dyspnea, and peripheral edema. Patient denies any side effects of her medication(s) and is compliant with their regimen. She checks her BP at home but states it varies from 110s-130s/60s Mckayla has been trying to increase her physical activity as tolerated during the day. She watches her diet for sodium, low fat and low cholesterol some of the time and starting to cook more. Last 3 Encounter BP Readings: Date: BP: 06/06/2024 118/62 05/30/2024 112/69 05/23/2024 128/68 Type 1 DM: Follows with endocrinology. Utilizes her insulin pump and denies low glucose readings. Gets diabetic foot exams with Dr. Zhao and sees him regularly. Per patient last seen 1 week ago. Patient's last HgA1C was Hemoglobin A1C (%) Date Value 05/07/2021 7.5 05/01/2020 7.5 Hemoglobin A1C (POCT) (%) Date Value 05/23/2024 6.6 02/16/2024 6.8 ) REVIEW OF SYSTEMS See HPI PAST MEDICAL HISTORY Diagnosis Date Abnormal mammogram, unspecified left breast BPPV (benign paroxysmal positional vertigo) 02/11/2015 BPV (benign positional vertigo) CAD (coronary artery disease) Carotid stenosis CARPAL TUNNEL BILATERRAL 08/08/2005 Coronary artery disease involving [place] coronary artery Dr. 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 ([facility]) 12/06/2018 Other and unspecified hyperlipidemia Other forms [...] CORE BIOPSY 02/24/08 LEFT - benign ALLERGIES Amitriptyline, Cymbalta [Duloxetine], Doxycycline, Ephedrine, Iodine, Isolone Forte, Levaquin [Levofloxacin], Lyrica [Pregabalin], Oxycodone, Percocet [Oxycodone-Acetaminophen], Sulfa (Sulfonamide Antibiotics), Aggrenox [Aspirin-Dipyridamole], Cephalexin (Bulk), Duricef [Cefadroxil], and Nortriptyline MEDICATIONS hydrOXYchloroQUINE (PLAQUENIL) 200 mg tablet Take 1.5 tablets by mouth once daily. insulin glargine (LANTUS SOLOSTAR U-100 INSULIN) 100 unit/mL (3 mL) Take 51 units once a day when in case of pump failure zolpidem (AMBIEN) 10 mg Take 1 tablet by mouth at bedtime as needed (insomnia) for up to 90 days. Patient should start on June 06, 2024. pramipexole (MIRAPEX) 1 mg tablet Take 2 tablets by mouth daily at bedtime. famotidine (PEPCID) 20 mg tablet Take 1 tablet by mouth two times a day. guaiFENesin (MUCINEX) 600 mg 12 hr tablet Take 1 tablet by mouth two times a day. Infusion Set for Insulin Pump (Air2Web EXT INFUSION SET 23) iset 1 Each one time a week. amLODIPine (NORVASC) 5 mg tablet Take 1 tablet by mouth once daily. benzonatate (TESSALON PERLES) 100 mg capsule Take 1 capsule by mouth three times a day as needed for cough. nystatin (MYCOSTATIN) powder Apply 1 application to affected area three times a day. clopidogrel (PLAVIX) 75 mg tablet Take 1 tablet by mouth once daily. atorvastatin (LIPITOR) 40 mg tablet Take 1 tablet by mouth once daily. neomycin 500 mg tablet Take 1 tablet by mouth every 12 hours. (Patient not taking: Reported on 11/25/2023) metoclopramide HCl (REGLAN) 5 mg tablet Take 1 tablet by mouth every 6 hours for 30 days; administer 30 minutes before a meal. Insulin Syringe-Needle U-100 (BD INSULIN SYRINGE ULTRA-FINE) 1 mL 31 gauge x 5/16 Use 4 syringes daily if insulin pump fails blood sugar diagnostic (ACCU-CHEK GUIDE TEST STRIPS) test strip Use with blood glucose test upto four times daily insulin lispro (HUMALOG U-100 INSULIN) 100 unit/mL injection as directed in Insulin pump up to 110 units daily. Dx E10.65 losartan (COZAAR) 100 mg tablet Take 1 tablet by mouth once daily. diclofenac sodium (VOLTAREN ARTHRITIS PAIN TOPICAL) Apply 2 g to affected area as needed (pain). lidocain-me.ywfpigv-knlh-iprgg 0.5-20-0.035-5 % ptmd Apply 1 Each to affected area as needed. traMADol (ULTRAM) 50 mg tablet Take 50 mg by mouth every 6 hours as needed for pain. (Patient not taking: Reported on 05/30/2024) albuterol HFA (PROVENTIL HFA, VENTOLIN HFA) 90 mcg/actuation inhaler Inhale 2 Puffs as instructed every 4 hours as needed for wheezing/shortness of breath. WALKER ROLLATOR SEAT WITH 6 WHEELS - RED For ambulation nitroglycerin (NITROLINGUAL) 400 mcg/spray spray one every 5 minutes x3 as needed Bacillus coagulans/inulin (PROBIOTIC WITH PREBIOTIC ORAL) Take 1 capsule by mouth once daily. aspirin 81 mg chewable tablet Take 1 tablet by mouth once daily. Cholecalciferol, Vitamin D3, 125 mcg (5,000 unit) cap Take 1 capsule by mouth once daily. Biotin 1 mg tab Take 1 tablet by mouth once daily. multivitamin tablet Take [...] Use Smoking status: Never Smokeless tobacco: Never Vaping Use Vaping status: Never Used Substance Use Topics Alcohol use: No Drug use: No PHYSICAL EXAM BP 118/62 Pulse 66 Resp 16 Wt 68 kg (150 lb) SpO2 97% BMI 27.44 kg/m? General Appearance: well appearing, in no acute distress, alert Lungs: Lungs clear to auscultation. No wheezing, rhonchi, rales. Heart: RRR without murmur, gallop, or rubs. No ectopy Health maintenance reviewed with patient: Diabetic Foot Exam due on 10/02/2021 Advance Directive Discussion due on 04/20/2024 Spirometry due on 08/18/2024 Urine Albumin:Creatinine Ratio due on 08/31/2024 LDL Cholesterol due on 08/31/2024 Covid-19 Vaccine() due on 10/30/2024 HbA1C due on 11/20/2024 Annual PCP Team Chronic Disease Visit due on 04/14/2025 Dilated Retinal Exam due on 05/02/2025 BP Controlled (<130/80) due on 05/30/2025 DTaP,Tdap,Td Vaccine(3 - Td or Tdap) due on 07/31/2031 Bone Density Screening Completed Influenza Vaccine Completed RSV Vaccine Completed Hepatitis C Screening Completed Shingrix Vaccine Completed Pneumococcal Vaccine: 50+ Completed Mammogram Screening Discontinued Colorectal Cancer Screening Discontinued DATA REVIEWED: Most recent labs ASSESSMENT/PLAN: 1. Insomnia, unspecified type - ICD9: 780.52, ICD10: G47.00 (primary diagnosis) Much improvement and controlled well with current treatment. PDMP website checked and validated. All prescriptions have been APPROPRIATELY filled. No suspicious activity was identified. 06/06/2024 by Sultana Harvey APRN.[employer] [facility] 2. Essential hypertension - ICD9: 401.9, ICD10: I10 - Controlled - Continue current medications - Recommend home blood pressure monitoring, to bring results to next visit - Encouraged sodium restriction, DASH or Mediterranean diet - Recommend regular aerobic exercise - LOSARTAN 100 MG TABLET 3. 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 4. Chronic sinusitis, unspecified location - ICD9: 473.9, ICD10: J32.[address] and recommendations by endocrinology Prescription instructions reviewed with patient as applicable. Potential red flag symptoms discussed with the patient. Reviewed appropriate action plan to take if red flag symptoms occur. Patient agreeable to treatment plan. Sultana Harvey APRN.CNP CNOV Observed: 06/06/2024 7:20 AM Status: COMPLETED Source: [facility] Office Visit (INTMWS) MCKAYLA RUSSO ([id number]) 1945 F Date Time Provider Department 06/06/24 7:20 AM SULTANA HARVEY INTLASHAUN During your visit today, we recorded the following information about you: Pulse Respiration Blood pressure Weight 66/minute 16/minute 118/62 68 kg Sultana Harvey APRN.CNP 06/06/2024 8:08 AM Signed CC: Patient presents with: Recheck: Medication follow up HPI Mckayla Russo is a 78 year old female who presents today for follow up on medications. Chronic Insomnia: Ambien working well. Getting 6 or more hours of sleep with current dose and tolerating well. Denies falls, confusion, or new concerns. Still with sinusitis. Following with ENT in [place], Dr. Umaña. Has a CT of the sinuses scheduled today at [facility]. HTN: Ms. Russo denies headache, chest pain, palpitations, change in chronic dyspnea, and peripheral edema. Patient denies any side effects of her medication(s) and is compliant with their regimen. She checks her BP at home but states it varies from 110s-130s/60s Mckayla has been trying to increase her physical activity as tolerated during the day. She watches her diet for sodium, low fat and low cholesterol some of the time and starting to cook more. Last 3 Encounter BP Readings: Date: BP: 06/06/2024 118/62 05/30/2024 112/69 05/23/2024 128/68 Type 1 DM: Follows with endocrinology. Utilizes her insulin pump and denies low glucose readings. Gets diabetic foot exams with Dr. Zhao and sees him regularly. Per patient last seen 1 week ago. Patient's last HgA1C was Hemoglobin A1C (%) Date Value 05/07/2021 7.5 05/01/2020 7.5 Hemoglobin A1C (POCT) (%) Date Value 05/23/2024 6.6 02/16/2024 6.8 ) REVIEW OF SYSTEMS See HPI PAST MEDICAL HISTORY Diagnosis Date Abnormal mammogram, unspecified left breast BPPV (benign paroxysmal positional vertigo) 02/11/2015 BPV (benign positional vertigo) CAD (coronary artery disease) Carotid stenosis CARPAL TUNNEL BILATERRAL 08/08/2005 Coronary artery disease involving [place] coronary artery Dr. Pederson follows regularly; S/P PTCA and stenting at [facility], 2001 Coronary atherosclerosis of unspecified type of vessel, [place] or graft Disorder of bone and cartilage, unspecified Diverticulosis of colon (without mention of hemorrhage) DKA (diabetic ketoacidoses) 09/28/2019 Esophagitis External hemorrhoids without mention of complication Insomnia Internal hemorrhoids without mention of complication Mammographic microcalcification Mild intermittent asthma without complication Adult onset Mild nonproliferative diabetic retinopathy of both eyes ([facility]) 12/06/2018 Other and unspecified hyperlipidemia Other forms [...] CORE BIOPSY 02/24/08 LEFT - benign ALLERGIES Amitriptyline, Cymbalta [Duloxetine], Doxycycline, Ephedrine, Iodine, Isolone Forte, Levaquin [Levofloxacin], Lyrica [Pregabalin], Oxycodone, Percocet [Oxycodone-Acetaminophen], Sulfa (Sulfonamide Antibiotics), Aggrenox [Aspirin-Dipyridamole], Cephalexin (Bulk), Duricef [Cefadroxil], and Nortriptyline MEDICATIONS hydrOXYchloroQUINE (PLAQUENIL) 200 mg tablet Take 1.5 tablets by mouth once daily. insulin glargine (LANTUS SOLOSTAR U-100 INSULIN) 100 unit/mL (3 mL) Take 51 units once a day when in case of pump failure zolpidem (AMBIEN) 10 mg Take 1 tablet by mouth at bedtime as needed (insomnia) for up to 90 days. Patient should start on June 06, 2024. pramipexole (MIRAPEX) 1 mg tablet Take 2 tablets by mouth daily at bedtime. famotidine (PEPCID) 20 mg tablet Take 1 tablet by mouth two times a day. guaiFENesin (MUCINEX) 600 mg 12 hr tablet Take 1 tablet by mouth two times a day. Infusion Set for Insulin Pump (MEDTRONIC EXT INFUSION SET 23) iset 1 Each one time a week. amLODIPine (NORVASC) 5 mg tablet Take 1 tablet by mouth once daily. benzonatate (TESSALON PERLES) 100 mg capsule Take 1 capsule by mouth three times a day as needed for cough. nystatin (MYCOSTATIN) powder Apply 1 application to affected area three times a day. clopidogrel (PLAVIX) 75 mg tablet Take 1 tablet by mouth once daily. atorvastatin (LIPITOR) 40 mg tablet Take 1 tablet by mouth once daily. neomycin 500 mg tablet Take 1 tablet by mouth every 12 hours. (Patient not taking: Reported on 11/25/2023) metoclopramide HCl (REGLAN) 5 mg tablet Take 1 tablet by mouth every 6 hours for 30 days; administer 30 minutes before a meal. Insulin Syringe-Needle U-100 (BD INSULIN SYRINGE ULTRA-FINE) 1 mL 31 gauge x 5/16 Use 4 syringes daily if insulin pump fails blood sugar diagnostic (ACCU-CHEK GUIDE TEST STRIPS) test strip Use with blood glucose test upto four times daily insulin lispro (HUMALOG U-100 INSULIN) 100 unit/mL injection as directed in Insulin pump up to 110 units daily. Dx E10.65 losartan (COZAAR) 100 mg tablet Take 1 tablet by mouth once daily. diclofenac sodium (VOLTAREN ARTHRITIS PAIN TOPICAL) Apply 2 g to affected area as needed (pain). lidocain-me.cpfstmu-vbtu-wqoxq 0.5-20-0.035-5 % ptmd Apply 1 Each to affected area as needed. traMADol (ULTRAM) 50 mg tablet Take 50 mg by mouth every 6 hours as needed for pain. (Patient not taking: Reported on 05/30/2024) albuterol HFA (PROVENTIL HFA, VENTOLIN HFA) 90 mcg/actuation inhaler Inhale 2 Puffs as instructed every 4 hours as needed for wheezing/shortness of breath. WALKER ROLLATOR SEAT WITH 6 WHEELS - RED For ambulation nitroglycerin (NITROLINGUAL) 400 mcg/spray spray one every 5 minutes x3 as needed Bacillus coagulans/inulin (PROBIOTIC WITH PREBIOTIC ORAL) Take 1 capsule by mouth once daily. aspirin 81 mg chewable tablet Take 1 tablet by mouth once daily. Cholecalciferol, Vitamin D3, 125 mcg (5,000 unit) cap Take 1 capsule by mouth once daily. Biotin 1 mg tab Take 1 tablet by mouth once daily. multivitamin tablet Take [...] Use Smoking status: Never Smokeless tobacco: Never Vaping Use Vaping status: Never Used Substance Use Topics Alcohol use: No Drug use: No PHYSICAL EXAM BP 118/62 Pulse 66 Resp 16 Wt 68 kg (150 lb) SpO2 97% BMI 27.44 kg/m? General Appearance: well appearing, in no acute distress, alert Lungs: Lungs clear to auscultation. No wheezing, rhonchi, rales. Heart: RRR without murmur, gallop, or rubs. No ectopy Health maintenance reviewed with patient: Diabetic Foot Exam due on 10/02/2021 Advance Directive Discussion due on 04/20/2024 Spirometry due on 08/18/2024 Urine Albumin:Creatinine Ratio due on 08/31/2024 LDL Cholesterol due on 08/31/2024 Covid-19 Vaccine( season) due on 10/30/2024 HbA1C due on 11/20/2024 Annual PCP Team Chronic Disease Visit due on 04/14/2025 Dilated Retinal Exam due on 05/02/2025 BP Controlled (<130/80) due on 05/30/2025 DTaP,Tdap,Td Vaccine(3 - Td or Tdap) due on 07/31/2031 Bone Density Screening Completed Influenza Vaccine Completed RSV Vaccine Completed Hepatitis C Screening Completed Shingrix Vaccine Completed Pneumococcal Vaccine: 50+ Completed Mammogram Screening Discontinued Colorectal Cancer Screening Discontinued DATA REVIEWED: Most recent labs ASSESSMENT/PLAN: 1. Insomnia, unspecified type - ICD9: 780.52, ICD10: G47.00 (primary diagnosis) Much improvement and controlled well with current treatment. PDMP website checked and validated. All prescriptions have been APPROPRIATELY filled. No suspicious activity was identified. 06/06/2024 by Sultana Older, ELEMENTARY READING TUTOR.[employer] 2. Essential hypertension - ICD9: 401.9, ICD10: I10 - Controlled - Continue current medications - Recommend home blood pressure monitoring, to bring results to next visit - Encouraged sodium restriction, DASH or Mediterranean diet - Recommend regular aerobic exercise - LOSARTAN 100 MG TABLET 3. 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 4. Chronic sinusitis, unspecified location - ICD9: 473.9, ICD10: J32.[address] and recommendations by endocrinology Prescription instructions reviewed with patient as applicable. Potential red flag symptoms discussed with the patient. Reviewed appropriate action plan to take if red flag symptoms occur. Patient agreeable to treatment plan. Sultana Harvey, ELEMENTARY READING TUTOR.SERVICE [employer]ER EM[employer]Y Allergies As of Date: 06/06/2024 Noted Allergy Reaction AMITRIPTYLINE 11/09/2012 14 - Other: See Comments Comments: Confusion, falls CYMBALTA (DULOXETINE) 06/07/2015 16 - Unknown DOXYCYCLINE 06/11/2011 8 - GI Upset Comments: headache EPHEDRINE 01/10/2005 14 - Other: See Comments Comments: tachycardia, but pt. states she still uses nose spray IODINE 07/29/2006 9 - Itching Comments: itching after prolonged use ISOLONE FORTE 04/06/2023 7 - Swelling LEVAQUIN (LEVOFLOXACIN) 05/26/2012 14 - Other: See Comments Comments: Achilles tendon problem LYRICA (PREGABALIN) 05/26/2012 14 - Other: See Comments Comments: Dizziness at 225mg twice daily OXYCODONE 01/21/2021 1 - Mental Status Change PERCOCET (OXYCODONE-ACETAMINOPHEN)05/29/2010 16 - Unknown SULFA (SULFONAMIDE ANTIBIOTICS) 01/10/2005 4 - Hives Comments: blisters AGGRENOX (ASPIRIN-DIPYRIDAMOLE) 12/18/2008 14 - Other: See Comments Comments: MIGRAINES AND VOMITING CEPHALEXIN (BULK) 05/12/2008 8 - GI Upset DURICEF (CEFADROXIL) 01/10/2005 4 - Hives NORTRIPTYLINE 02/11/2013 14 - Other: See Comments Comments: vertigo Date Reviewed: 06/06/2024 Reviewed by: Sultana Harvey APRN.SERVICE [employer] - Fully Assessed Reason for Visit: Recheck [92] Cmt: Medication follow up Primary Visit Diagnosis:Insomnia, unspecified type [G47.00] Other Visit Diagnoses:Essential hypertension [I10] 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 - losartan (COZAAR) 100 mg tablet Take 1 tablet by mouth once daily. - hydrOXYchloroQUINE (PLAQUENIL) 200 mg tablet Take 1.5 tablets by mouth once daily. - insulin glargine (LANTUS SOLOSTAR U-100 INSULIN) 100 unit/mL (3 mL) Take 51 units once a day when in case of pump failure - zolpidem (AMBIEN) 10 mg Take 1 tablet by mouth at bedtime as needed (insomnia) for up to 90 days. Patient should start on June 06, 2024. - pramipexole (MIRAPEX) 1 mg tablet Take 2 tablets by mouth daily at bedtime. - famotidine (PEPCID) 20 mg tablet Take 1 tablet by mouth two times a day. - guaiFENesin (MUCINEX) 600 mg 12 hr tablet Take 1 tablet by mouth two times a day. - Infusion Set for Insulin Pump (MEDTRONIC EXT INFUSION SET 23) iset 1 Each one time a week. - amLODIPine (NORVASC) 5 mg tablet Take 1 tablet by mouth once daily. - benzonatate (TESSALON PERLES) 100 mg capsule Take 1 capsule by mouth three times a day as needed for cough. - nystatin (MYCOSTATIN) powder Apply 1 application to affected area three times a day. - atorvastatin (LIPITOR) 40 mg tablet Take 1 tablet by mouth once daily. - neomycin 500 mg tablet Take 1 tablet by mouth every 12 hours. - metoclopramide HCl (REGLAN) 5 mg tablet Take 1 tablet by mouth every 6 hours for 30 days; administer 30 minutes before a meal. - Insulin Syringe-Needle U-100 (BD INSULIN SYRINGE ULTRA-FINE) 1 mL 31 gauge x /16 Use 4 syringes daily if insulin pump fails - blood sugar diagnostic (ACCU-CHEK GUIDE TEST STRIPS) test strip Use with blood glucose test upto four times daily - insulin lispro (HUMALOG U-100 INSULIN) 100 unit/mL injection as directed in Insulin pump up to 110 units daily. Dx E10.65 - diclofenac sodium (VOLTAREN ARTHRITIS PAIN TOPICAL) Apply 2 g to affected area as needed (pain). - lidocain-me.jtkopyc-nfno-jwghf 0.5-20-0.035-5 % ptmd Apply 1 Each to affected area as needed. - traMADol (ULTRAM) 50 mg tablet Take 50 mg by mouth every 6 hours as needed for pain. - albuterol HFA (PROVENTIL HFA, VENTOLIN HFA) 90 mcg/actuation inhaler Inhale 2 Puffs as instructed every 4 hours as needed for wheezing/shortness of breath. - WALKER ROLLATOR SEAT WITH 6 WHEELS - RED For ambulation - nitroglycerin (NITROLINGUAL) 400 mcg/spray spray one every 5 minutes x3 as needed - Bacillus coagulans/inulin (PROBIOTIC WITH PREBIOTIC ORAL) Take 1 capsule by mouth once daily. - aspirin 81 mg chewable tablet Take 1 tablet by mouth once daily. - Cholecalciferol, Vitamin D3, 125 mcg (5,000 unit) cap Take 1 capsule by mouth once daily. - Biotin 1 mg tab Take 1 tablet by mouth once daily. - multivitamin tablet Take 1 tablet by mouth once daily. - acetaminophen (TYLENOL 8 HOUR) 650 mg CR tablet Take 1 tablet by mouth every 8 hours as needed. Problem List As Of Date 06/06/2024 Noted Resolved Hyperlipidemia [E78.5] Hypertension [I10] Coronary artery disease involving [place]* 09/29/2019 Dizziness and Giddiness [R42] 04/30/2009 Postsurgical Percutaneous Transluminal Coronary* 04/30/2009 Mild intermittent asthma without complication [* 09/29/2019 Other psoriasis [L40.8] 09/29/2019 Disorder of bone and cartilage [M89.9, M94.9] 09/29/2019 ESOPHAGITIS [530.1] Diverticulosis of Colon (without Mention of Hem* 04/30/2009 External Hemorrhoids without Mention of Complic* 04/30/2009 Internal Hemorrhoids without Mention of Complic* 04/30/2009 Allergic Rhinitis, Cause Unspecified [J30.9] 01/13/2005 06/25/2015 Ingrowing Nail [L60.0] 03/20/2005 04/30/2009 Pain in Soft Tissues of Limb [M79.609] 03/20/2005 04/30/2009 CARPAL TUNNEL BILATERRAL [M13.149] 08/08/2005 09/29/2019 Nonspecific Abnormal Results of Liver Function *08/08/2005 04/30/2009 OVERWEIGHT [E66.9] 08/08/2005 04/30/2009 Dermatophytosis of Nail [B35.1] 09/04/2005 04/30/2009 Depression [F32.5] 12/18/2005 Anxiety state [F41.1] 12/18/2005 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] 03/23/2006 04/30/2009 Pain in Joint, Shoulder Region [M25.519] 05/22/2006 04/30/2009 Neck Sprain and Strain [S13.9XXA] 05/22/2006 04/30/2009 Onychia and Paronychia of Toe [L03.039] 08/11/2006 04/30/2009 Cellulitis and Abscess of Foot, except Toes [L0*08/24/2006 04/30/2009 Rheumatoid arthritis (HCC) [M06.9] 12/04/2006 Anemia, unspecified [D64.9] 12/04/2006 09/29/2019 Sleep apnea [G47.30] 03/08/2007 Acute Bronchitis [J20.9] 05/18/2008 04/30/2009 Tenosynovitis of Foot and Ankle [M65.979] 06/29/2008 04/30/2009 Vitamin deficiency [E56.9] 04/23/2009 Routine general medical examination at [facility]*04/30/2009 06/25/2015 Class: Chronic Routine gynecological examination [Z01.419] 04/30/2009 06/25/2015 Class: Chronic Diverticulosis of colon [K57.30] 04/30/2009 Cerebral infarction (HCC) [I63.9] 07/16/2009 Pain in joint, lower leg [M25.569] 01/21/2010 06/25/2015 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] 04/25/2010 Restless legs syndrome (RLS) [G25.81] 06/25/2010 Calcifying tendinitis of shoulder [M75.30] 07/09/2010 Venous insufficiency [I87.2] 09/08/2011 Thoracic or lumbosacral neuritis or radiculitis*03/01/2012 09/29/2019 Abnormality of gait [R26.9] 03/01/2012 06/25/2015 Vertigo [R42] 02/02/2013 06/25/2015 Cervicalgia [M54.2] 08/04/2014 Gait abnormality [R26.9] 08/04/2014 BPPV (benign paroxysmal positional vertigo) [H8*02/11/2015 09/29/2019 Obstructive sleep apnea syndrome [G47.33] 06/08/2015 Mixed hyperlipidemia [E78.2] 06/08/2015 GERD (gastroesophageal reflux disease) [K21.9] 08/09/2015 RLS (restless legs syndrome) [G25.81] 08/09/2015 Insomnia [G47.00] 08/09/2015 Vertigo [R42] 08/12/2015 09/29/2019 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/2015 Coronary artery disease [I25.10] 08/29/2015 Mild nonproliferative diabetic retinopathy of b*12/06/2018 Hypoglycemia unawareness in type 1 diabetes emre*01/18/2019 Other dysphagia [R13.19] 07/18/2019 09/29/2019 DKA (diabetic ketoacidoses) ([facility]) [E11.10] 09/28/2019 10/18/2020 Asthma [J45.909] 09/29/2019 SHERLYN (acute kidney injury) ([facility]) [N17.9] 09/29/2019 09/30/2019 H/O multiple allergies [Z88.9] 06/19/[address] [Z96.41] 07/10/2020 Type 1 diabetes mellitus with mild nonprolifera*10/18/2020 Type 1 diabetes mellitus with diabetic neuropat*10/18/2020 Class 2 severe obesity with serious comorbidity*10/18/2020 Bilateral carotid artery stenosis [I65.23] 05/10/2021 Prescriptions ordered this encounter Disp Refills Start End CLOPIDOGREL 75 MG TABLET 90 t* 3 06/06/2024 Route: ORAL Sig: Take 1 tablet by mouth once daily. LOSARTAN 100 MG TABLET 90 t* 1 06/06/2024 Route: ORAL Sig: Take 1 tablet by mouth once daily. Medications Discontinued During This Encounter Prescriptions - losartan (COZAAR) 100 mg tablet (Discontinued) Take 1 tablet by mouth once daily. - clopidogrel (PLAVIX) 75 mg tablet (Discontinued) Take 1 tablet by mouth once daily. Disposition: Return in about 3 months (around 09/03/2024) for Routine Follow Up. Follow-up and Disposition History for Encounter Date Provider Department Center 06/06/2024 [id number]-OMSHOSULTANA HARVEY [facility] Encounter Status:Closed by SULTANA HARVEY on 06/06/24 CNPN Observed: 06/02/2024 12:00 AM Status: COMPLETED Source: [facility] Telephone (ENWSTR) MCKAYLA RUSSO ([id number]) 1945 F Date Time Provider Department 06/02/24 EVA NIELSEN ENWSTR During your visit today, we recorded the following information about you: Magalys Mera RN 06/02/2024 2:13 PM Signed Most recent OV notes from 05/23/2024 requested from [facility] to update records. Signed and faxed to [facility], Attn: Julio Cesar Cox at . Fax confirmation received. Magalys Mera RN June 02, 2024 2:13 PM Magalys Mera RN 06/03/2024 2:01 PM Signed Signed DWO for Diabetic Testing Supplies faxed back to [facility], Attn: Julio Cesar Verduzco at . Fax confirmation received. Magalys Mera RN June 03, 2024 2:01 PM Allergies As of Date: 06/02/2024 Noted Allergy Reaction AMITRIPTYLINE 11/09/2012 14 - Other: See Comments Comments: Confusion, falls CYMBALTA (DULOXETINE) 06/07/2015 16 - Unknown DOXYCYCLINE 06/11/2011 8 - GI Upset Comments: headache EPHEDRINE 01/10/2005 14 - Other: See Comments Comments: tachycardia, but pt. states she still uses nose spray IODINE 07/29/2006 9 - Itching Comments: itching after prolonged use ISOLONE FORTE 04/06/2023 7 - Swelling LEVAQUIN (LEVOFLOXACIN) 05/26/2012 14 - Other: See Comments Comments: Achilles tendon problem LYRICA (PREGABALIN) 05/26/2012 14 - Other: See Comments Comments: Dizziness at 225mg twice daily OXYCODONE 01/21/2021 1 - Mental Status Change PERCOCET (OXYCODONE-ACETAMINOPHEN)05/29/2010 16 - Unknown SULFA (SULFONAMIDE ANTIBIOTICS) 01/10/2005 4 - Hives Comments: blisters AGGRENOX (ASPIRIN-DIPYRIDAMOLE) 12/18/2008 14 - Other: See Comments Comments: MIGRAINES AND VOMITING CEPHALEXIN (BULK) 05/12/2008 8 - GI Upset DURICEF (CEFADROXIL) 01/10/2005 4 - Hives NORTRIPTYLINE 02/11/2013 14 - Other: See Comments Comments: vertigo Date Reviewed: 05/30/2024 Reviewed by: Frankie Amanda MA - Fully Assessed Reason for Visit: Updated OV Notes to DME [Other] DWO for Diabetic Testing Supplies to DME [Other] Prescriptions as of 06/03/2024 - hydrOXYchloroQUINE (PLAQUENIL) 200 mg tablet Take 1.5 tablets by mouth once daily. - insulin glargine (LANTUS SOLOSTAR U-100 INSULIN) 100 unit/mL (3 mL) Take 51 units once a day when in case of pump failure - zolpidem (AMBIEN) 10 mg Take 1 tablet by mouth at bedtime as needed (insomnia) for up to 90 days. Patient should start on June 06, 2024. - pramipexole (MIRAPEX) 1 mg tablet Take 2 tablets by mouth daily at bedtime. - famotidine (PEPCID) 20 mg tablet Take 1 tablet by mouth two times a day. - guaiFENesin (MUCINEX) 600 mg 12 hr tablet Take 1 tablet by mouth two times a day. - Infusion Set for Insulin Pump (MEDTRONIC EXT INFUSION SET 23) iset 1 Each one time a week. - amLODIPine (NORVASC) 5 mg tablet Take 1 tablet by mouth once daily. - benzonatate (TESSALON PERLES) 100 mg capsule Take 1 capsule by mouth three times a day as needed for cough. - nystatin (MYCOSTATIN) powder Apply 1 application to affected area three times a day. - clopidogrel (PLAVIX) 75 mg tablet Take 1 tablet by mouth once daily. - atorvastatin (LIPITOR) 40 mg tablet Take 1 tablet by mouth once daily. - neomycin 500 mg tablet Take 1 tablet by mouth every 12 hours. - metoclopramide HCl (REGLAN) 5 mg tablet Take 1 tablet by mouth every 6 hours for 30 days; administer 30 minutes before a meal. - Insulin Syringe-Needle U-100 (BD INSULIN SYRINGE ULTRA-FINE) 1 mL 31 gauge x 5/16 Use 4 syringes daily if insulin pump fails - blood sugar diagnostic (ACCU-CHEK GUIDE TEST STRIPS) test strip Use with blood glucose test upto four times daily - insulin lispro (HUMALOG U-100 INSULIN) 100 unit/mL injection as directed in Insulin pump up to 110 units daily. Dx E10.65 - losartan (COZAAR) 100 mg tablet Take 1 tablet by mouth once daily. - diclofenac sodium (VOLTAREN ARTHRITIS PAIN TOPICAL) Apply 2 g to affected area as needed (pain). - lidocain-me.rqncytt-dmnv-bsfht 0.5-20-0.035-5 % ptmd Apply 1 Each to affected area as needed. - traMADol (ULTRAM) 50 mg tablet Take 50 mg by mouth every 6 hours as needed for pain. - albuterol HFA (PROVENTIL HFA, VENTOLIN HFA) 90 mcg/actuation inhaler Inhale 2 Puffs as instructed every 4 hours as needed for wheezing/shortness of breath. - WALKER ROLLATOR SEAT WITH 6 WHEELS - RED For ambulation - nitroglycerin (NITROLINGUAL) 400 mcg/spray spray one every 5 minutes x3 as needed - Bacillus coagulans/inulin (PROBIOTIC WITH PREBIOTIC ORAL) Take 1 capsule by mouth once daily. - aspirin 81 mg chewable tablet Take 1 tablet by mouth once daily. - Cholecalciferol, Vitamin D3, 125 mcg (5,000 unit) cap Take 1 capsule by mouth once daily. - Biotin 1 mg tab Take 1 tablet by mouth once daily. - multivitamin tablet Take 1 tablet by mouth once daily. - acetaminophen (TYLENOL 8 HOUR) 650 mg CR tablet Take 1 tablet by mouth every 8 hours as needed. Problem List As Of Date 06/02/2024 Noted Resolved Hyperlipidemia [E78.5] Hypertension [I10] Coronary artery disease involving [place]* 09/29/2019 Dizziness and Giddiness [R42] 04/30/2009 Postsurgical Percutaneous Transluminal Coronary* 04/30/2009 Mild intermittent asthma without complication [* 09/29/2019 Other psoriasis [L40.8] 09/29/2019 Disorder of bone and cartilage [M89.9, M94.9] 09/29/2019 ESOPHAGITIS [530.1] Diverticulosis of Colon (without Mention of Hem* 04/30/2009 External Hemorrhoids without Mention of Complic* 04/30/2009 Internal Hemorrhoids without Mention of Complic* 04/30/2009 Allergic Rhinitis, Cause Unspecified [J30.9] 01/13/2005 06/25/2015 Ingrowing Nail [L60.0] 03/20/2005 04/30/2009 Pain in Soft Tissues of Limb [M79.609] 03/20/2005 04/30/2009 CARPAL TUNNEL BILATERRAL [M13.149] 08/08/2005 09/29/2019 Nonspecific Abnormal Results of Liver Function *08/08/2005 04/30/2009 OVERWEIGHT [E66.9] 08/08/2005 04/30/2009 Dermatophytosis of Nail [B35.1] 09/04/2005 04/30/2009 Depression [F32.5] 12/18/2005 Anxiety state [F41.1] 12/18/2005 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] 03/23/2006 04/30/2009 Pain in Joint, Shoulder Region [M25.519] 05/22/2006 04/30/2009 Neck Sprain and Strain [S13.9XXA] 05/22/2006 04/30/2009 Onychia and Paronychia of Toe [L03.039] 08/11/2006 04/30/2009 Cellulitis and Abscess of Foot, except Toes [L0*08/24/2006 04/30/2009 Rheumatoid arthritis (HCC) [M06.9] 12/04/2006 Anemia, unspecified [D64.9] 12/04/2006 09/29/2019 Sleep apnea [G47.30] 03/08/2007 Acute Bronchitis [J20.9] 05/18/2008 04/30/2009 Tenosynovitis of Foot and Ankle [M65.979] 06/29/2008 04/30/2009 Vitamin deficiency [E56.9] 04/23/2009 Routine general medical examination at [facility]*04/30/2009 06/25/2015 Class: Chronic Routine gynecological examination [Z01.419] 04/30/2009 06/25/2015 Class: Chronic Diverticulosis of colon [K57.30] 04/30/2009 Cerebral infarction (HCC) [I63.9] 07/16/2009 Pain in joint, lower leg [M25.569] 01/21/2010 06/25/2015 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] 04/25/2010 Restless legs syndrome (RLS) [G25.81] 06/25/2010 Calcifying tendinitis of shoulder [M75.30] 07/09/2010 Venous insufficiency [I87.2] 09/08/2011 Thoracic or lumbosacral neuritis or radiculitis*03/01/2012 09/29/2019 Abnormality of gait [R26.9] 03/01/2012 06/25/2015 Vertigo [R42] 02/02/2013 06/25/2015 Cervicalgia [M54.2] 08/04/2014 Gait abnormality [R26.9] 08/04/2014 BPPV (benign paroxysmal positional vertigo) [H8*02/11/2015 09/29/2019 Obstructive sleep apnea syndrome [G47.33] 06/08/2015 Mixed hyperlipidemia [E78.2] 06/08/2015 GERD (gastroesophageal reflux disease) [K21.9] 08/09/2015 RLS (restless legs syndrome) [G25.81] 08/09/2015 Insomnia [G47.00] 08/09/2015 Vertigo [R42] 08/12/2015 09/29/2019 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/2015 Coronary artery disease [I25.10] 08/29/2015 Mild nonproliferative diabetic retinopathy of b*12/06/2018 Hypoglycemia unawareness in type 1 diabetes emre*01/18/2019 Other dysphagia [R13.19] 07/18/2019 09/29/2019 DKA (diabetic ketoacidoses) (HCC) [E11.10] 09/28/2019 10/18/2020 Asthma [J45.909] 09/29/2019 SHERLYN (acute kidney injury) (HCC) [N17.9] 09/29/2019 09/30/2019 H/O multiple allergies [Z88.9] 06/19/[address] [Z96.41] 07/10/2020 Type 1 diabetes mellitus with mild nonprolifera*10/18/2020 Type 1 diabetes mellitus with diabetic neuropat*10/18/2020 Class 2 severe obesity with serious comorbidity*10/18/2020 Bilateral carotid artery stenosis [I65.23] 05/10/2021 Encounter Status:Closed by MAGALYS MERA on 06/02/24 ROGER Observed: 05/31/2024 12:00 AM Status: COMPLETED Source: [facility] Telephone (GASTSP) MCKAYLA RUSSO ([id number]) 1945 F Date Time Provider Department 05/31/24 OMAYRA YARBROUGH GASTSP During your visit today, we recorded the following information about you: Flakito Matamoros 05/31/2024 4:09 PM Signed CONSULT TO GASTROENTEROLOGY (Order #[id number]) on 05/30/24 Mckayla Russo is being referred to or the Gastroparesis clinic. Referring Physician: Dr. Grajeda Preferred phone number for contact: [phone] Send to GASTROPARESIS SCHEDULING POOL [[id number]] DenizdomingaFlakito reyes 05/31/2024 4:09 PM Signed Left VM for patient to call office to update registration and go over records needed for review prior to scheduling. Flakito Matamoros 06/07/2024 9:22 AM Signed 2nd attempt: Left VM for patient to call office to update registration and go over records needed for review prior to scheduling. Guillermina Harding 06/07/2024 2:18 PM Signed Patient returned call to schedule Flakito Matamoros 06/08/2024 11:32 AM Signed Left VM for patient to call office to update registration and go over records needed for review prior to scheduling. Flakito Matamoros 06/15/2024 10:56 AM Signed Last attempt to contact patient. Left VM for patient to call office to update registration and go over records needed for review prior to scheduling. Allergies As of Date: 05/31/2024 Noted Allergy Reaction AMITRIPTYLINE 11/09/2012 14 - Other: See Comments Comments: Confusion, falls CYMBALTA (DULOXETINE) 06/07/2015 16 - Unknown DOXYCYCLINE 06/11/2011 8 - GI Upset Comments: headache EPHEDRINE 01/10/2005 14 - Other: See Comments Comments: tachycardia, but pt. states she still uses nose spray IODINE 07/29/2006 9 - Itching Comments: itching after prolonged use ISOLONE FORTE 04/06/2023 7 - Swelling LEVAQUIN (LEVOFLOXACIN) 05/26/2012 14 - Other: See Comments Comments: Achilles tendon problem LYRICA (PREGABALIN) 05/26/2012 14 - Other: See Comments Comments: Dizziness at 225mg twice daily OXYCODONE 01/21/2021 1 - Mental Status Change PERCOCET (OXYCODONE-ACETAMINOPHEN)05/29/2010 16 - Unknown SULFA (SULFONAMIDE ANTIBIOTICS) 01/10/2005 4 - Hives Comments: blisters AGGRENOX (ASPIRIN-DIPYRIDAMOLE) 12/18/2008 14 - Other: See Comments Comments: MIGRAINES AND VOMITING CEPHALEXIN (BULK) 05/12/2008 8 - GI Upset DURICEF (CEFADROXIL) 01/10/2005 4 - Hives NORTRIPTYLINE 02/11/2013 14 - Other: See Comments Comments: vertigo Date Reviewed: 05/30/2024 Reviewed by: Frankie Amanda MA - Fully Assessed Reason for Visit: Appointment [186] Prescriptions as of 06/15/2024 - insulin glargine (LANTUS SOLOSTAR U-100 INSULIN) 100 unit/mL (3 mL) Take 51 units once a day when in case of pump failure - clopidogrel (PLAVIX) 75 mg tablet Take 1 tablet by mouth once daily. - losartan (COZAAR) 100 mg tablet Take 1 tablet by mouth once daily. - hydrOXYchloroQUINE (PLAQUENIL) 200 mg tablet Take 1.5 tablets by mouth once daily. - zolpidem (AMBIEN) 10 mg Take 1 tablet by mouth at bedtime as needed (insomnia) for up to 90 days. Patient should start on June 06, 2024. - pramipexole (MIRAPEX) 1 mg tablet Take 2 tablets by mouth daily at bedtime. - famotidine (PEPCID) 20 mg tablet Take 1 tablet by mouth two times a day. - guaiFENesin (MUCINEX) 600 mg 12 hr tablet Take 1 tablet by mouth two times a day. - Infusion Set for Insulin Pump (MEDTRONIC EXT INFUSION SET 23) iset 1 Each one time a week. - amLODIPine (NORVASC) 5 mg tablet Take 1 tablet by mouth once daily. - benzonatate (TESSALON PERLES) 100 mg capsule Take 1 capsule by mouth three times a day as needed for cough. - nystatin (MYCOSTATIN) powder Apply 1 application to affected area three times a day. - atorvastatin (LIPITOR) 40 mg tablet Take 1 tablet by mouth once daily. - neomycin 500 mg tablet Take 1 tablet by mouth every 12 hours. - metoclopramide HCl (REGLAN) 5 mg tablet Take 1 tablet by mouth every 6 hours for 30 days; administer 30 minutes before a meal. - Insulin Syringe-Needle U-100 (BD INSULIN SYRINGE ULTRA-FINE) 1 mL 31 gauge x 5/16 Use 4 syringes daily if insulin pump fails - blood sugar diagnostic (ACCU-CHEK GUIDE TEST STRIPS) test strip Use with blood glucose test upto four times daily - insulin lispro (HUMALOG U-100 INSULIN) 100 unit/mL injection as directed in Insulin pump up to 110 units daily. Dx E10.65 - diclofenac sodium (VOLTAREN ARTHRITIS PAIN TOPICAL) Apply 2 g to affected area as needed (pain). - lidocain-me.oguazfq-tpoi-fbyns 0.5-20-0.035-5 % ptmd Apply 1 Each to affected area as needed. - traMADol (ULTRAM) 50 mg tablet Take 50 mg by mouth every 6 hours as needed for pain. - albuterol HFA (PROVENTIL HFA, VENTOLIN HFA) 90 mcg/actuation inhaler Inhale 2 Puffs as instructed every 4 hours as needed for wheezing/shortness of breath. - WALKER ROLLATOR SEAT WITH 6 WHEELS - RED For ambulation - nitroglycerin (NITROLINGUAL) 400 mcg/spray spray one every 5 minutes x3 as needed - Bacillus coagulans/inulin (PROBIOTIC WITH PREBIOTIC ORAL) Take 1 capsule by mouth once daily. - aspirin 81 mg chewable tablet Take 1 tablet by mouth once daily. - Cholecalciferol, Vitamin D3, 125 mcg (5,000 unit) cap Take 1 capsule by mouth once daily. - Biotin 1 mg tab Take 1 tablet by mouth once daily. - multivitamin tablet Take 1 tablet by mouth once daily. - acetaminophen (TYLENOL 8 HOUR) 650 mg CR tablet Take 1 tablet by mouth every 8 hours as needed. Problem List As Of Date 05/31/2024 Noted Resolved Hyperlipidemia [E78.5] Hypertension [I10] Coronary artery disease involving [place]* 09/29/2019 Dizziness and Giddiness [R42] 04/30/2009 Postsurgical Percutaneous Transluminal Coronary* 04/30/2009 Mild intermittent asthma without complication [* 09/29/2019 Other psoriasis [L40.8] 09/29/2019 Disorder of bone and cartilage [M89.9, M94.9] 09/29/2019 ESOPHAGITIS [530.1] Diverticulosis of Colon (without Mention of Hem* 04/30/2009 External Hemorrhoids without Mention of Complic* 04/30/2009 Internal Hemorrhoids without Mention of Complic* 04/30/2009 Allergic Rhinitis, Cause Unspecified [J30.9] 01/13/2005 06/25/2015 Ingrowing Nail [L60.0] 03/20/2005 04/30/2009 Pain in Soft Tissues of Limb [M79.609] 03/20/2005 04/30/2009 CARPAL TUNNEL BILATERRAL [M13.149] 08/08/2005 09/29/2019 Nonspecific Abnormal Results of Liver Function *08/08/2005 04/30/2009 OVERWEIGHT [E66.9] 08/08/2005 04/30/2009 Dermatophytosis of Nail [B35.1] 09/04/2005 04/30/2009 Depression [F32.5] 12/18/2005 Anxiety state [F41.1] 12/18/2005 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] 03/23/2006 04/30/2009 Pain in Joint, Shoulder Region [M25.519] 05/22/2006 04/30/2009 Neck Sprain and Strain [S13.9XXA] 05/22/2006 04/30/2009 Onychia and Paronychia of Toe [L03.039] 08/11/2006 04/30/2009 Cellulitis and Abscess of Foot, except Toes [L0*08/24/2006 04/30/2009 Rheumatoid arthritis (HCC) [M06.9] 12/04/2006 Anemia, unspecified [D64.9] 12/04/2006 09/29/2019 Sleep apnea [G47.30] 03/08/2007 Acute Bronchitis [J20.9] 05/18/2008 04/30/2009 Tenosynovitis of Foot and Ankle [M65.979] 06/29/2008 04/30/2009 Vitamin deficiency [E56.9] 04/23/2009 Routine general medical examination at [facility]*04/30/2009 06/25/2015 Class: Chronic Routine gynecological examination [Z01.419] 04/30/2009 06/25/2015 Class: Chronic Diverticulosis of colon [K57.30] 04/30/2009 Cerebral infarction (HCC) [I63.9] 07/16/2009 Pain in joint, lower leg [M25.569] 01/21/2010 06/25/2015 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] 04/25/2010 Restless legs syndrome (RLS) [G25.81] 06/25/2010 Calcifying tendinitis of shoulder [M75.30] 07/09/2010 Venous insufficiency [I87.2] 09/08/2011 Thoracic or lumbosacral neuritis or radiculitis*03/01/2012 09/29/2019 Abnormality of gait [R26.9] 03/01/2012 06/25/2015 Vertigo [R42] 02/02/2013 06/25/2015 Cervicalgia [M54.2] 08/04/2014 Gait abnormality [R26.9] 08/04/2014 BPPV (benign paroxysmal positional vertigo) [H8*02/11/2015 09/29/2019 Obstructive sleep apnea syndrome [G47.33] 06/08/2015 Mixed hyperlipidemia [E78.2] 06/08/2015 GERD (gastroesophageal reflux disease) [K21.9] 08/09/2015 RLS (restless legs syndrome) [G25.81] 08/09/2015 Insomnia [G47.00] 08/09/2015 Vertigo [R42] 08/12/2015 09/29/2019 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/2015 Coronary artery disease [I25.10] 08/29/2015 Mild nonproliferative diabetic retinopathy of b*12/06/2018 Hypoglycemia unawareness in type 1 diabetes emre*01/18/2019 Other dysphagia [R13.19] 07/18/2019 09/29/2019 DKA (diabetic ketoacidoses) (HCC) [E11.10] 09/28/2019 10/18/2020 Asthma [J45.909] 09/29/2019 SHERLYN (acute kidney injury) (HCC) [N17.9] 09/29/2019 09/30/2019 H/O multiple allergies [Z88.9] 06/19/[address] [Z96.41] 07/10/2020 Type 1 diabetes mellitus with mild nonprolifera*10/18/2020 Type 1 diabetes mellitus with diabetic neuropat*10/18/2020 Class 2 severe obesity with serious comorbidity*10/18/2020 Bilateral carotid artery stenosis [I65.23] 05/10/2021 Encounter Status:Closed by FLAKITO MATAMOROS on 2/11/25 PROGRESS Observed: 05/30/2024 10:21 AM Status: COMPLETED Source: [facility] HNO ID: [id number] Author: JUAN GRAJEDA MD Service: ? Author Type: Physician Type: Progress Notes Filed: 05/30/2024 10:40 Note Text: On 05/30/2024, I had the pleasure of seeing Mckayla Russo at the [facility] for seropositive RA HPI: To review, Mckayla Russo is a 78 year old female *Re: BMD - Around [...] diagnosed with ILD. Sees Dr. Garcia in [place] for pulmonary - In Nov, advised to stop HCQ completely per core feeder as he didn't think she had RA - In Dec, was told by [employer] division manager to continue HCQ, to never stop it. - In Jan, advised to resume HCQ once daily per core feeder (but didn't say why). - In Feb, reported that hands had become swollen off HCQ. Had been on HCQ for less than a month, hadn't kicked back in yet. - In Dec, reported stable joints. Interim dx of gastroparesis - Today, reports joints are doing well. With some pain in the neck/back. - With difficulty breathing since covid a few months ago, in the setting of ILD. Hasn't seen local lung specialist recently - Last plaquenil eye exam normal around Apr PAST MEDICAL HISTORY Diagnosis Date Abnormal mammogram, unspecified left breast BPPV (benign paroxysmal positional vertigo) 02/11/2015 BPV (benign positional vertigo) CAD (coronary artery disease) Carotid stenosis CARPAL TUNNEL BILATERRAL 08/08/2005 Coronary artery disease involving [place] coronary artery Dr. Pederson follows regularly; S/P PTCA and stenting at [facility], 2001 Coronary atherosclerosis of unspecified type of vessel, [place] or graft Disorder of bone and cartilage, unspecified Diverticulosis of colon (without mention of hemorrhage) DKA (diabetic ketoacidoses) 09/28/2019 Esophagitis External hemorrhoids without mention of complication Insomnia Internal hemorrhoids without mention of complication Mammographic microcalcification Mild intermittent asthma without complication Adult onset Mild nonproliferative diabetic retinopathy of both eyes ([facility]) 12/06/2018 Other and unspecified hyperlipidemia Other forms of migraine Other psoriasis Postsurgical percutaneous transluminal coronary angioplasty status Rheumatoid arthritis(714.0) RLS (restless legs syndrome) Stroke (cerebrum) ([facility]) x3 Thoracic or lumbosacral neuritis or radiculitis, [...] 02/24/08 LEFT - benign ALLERGIES Allergen Reactions Amitriptyline Other: See Comments Confusion, falls Cymbalta [Duloxetin* Unknown Doxycycline GI Upset headache Ephedrine Other: See Comments tachycardia, but pt. states she still uses nose spray Iodine Itching itching after prolonged use Isolone Forte Swelling Levaquin [Levofloxa* Other: See Comments Achilles tendon problem Lyrica [Pregabalin] Other: See Comments Dizziness at 225mg twice daily Oxycodone Mental Status Change Percocet [Oxycodone* Unknown Sulfa (Sulfonamide * Hives blisters Aggrenox [Aspirin-D* Other: See Comments MIGRAINES AND VOMITING Cephalexin (Bulk) GI Upset Duricef [Cefadroxil] Hives Nortriptyline Other: See Comments vertigo MEDICATIONS: Current Outpatient Medications Medication Sig insulin glargine (LANTUS SOLOSTAR U-100 INSULIN) 100 unit/mL (3 mL) Take 51 units once a day when in case of pump failure [START ON 06/06/2024] zolpidem (AMBIEN) 10 mg Take 1 tablet by mouth at bedtime as needed (insomnia) for up to 90 days. Patient should start on June 06, 2024. pramipexole (MIRAPEX) 1 mg tablet Take 2 tablets by mouth daily at bedtime. hydrOXYchloroQUINE (PLAQUENIL) 200 mg tablet Take 1.5 tablets by mouth once daily. famotidine (PEPCID) 20 mg tablet Take 1 tablet by mouth two times a day. guaiFENesin (MUCINEX) 600 mg 12 hr tablet Take 1 tablet by mouth two times a day. Infusion Set for Insulin Pump (MEDTRONIC EXT INFUSION SET 23) iset 1 Each one time a week. amLODIPine (NORVASC) 5 mg tablet Take 1 tablet by mouth once daily. benzonatate (TESSALON PERLES) 100 mg capsule Take 1 capsule by mouth three times a day as needed for cough. nystatin (MYCOSTATIN) powder Apply 1 application to affected area three times a day. clopidogrel (PLAVIX) 75 mg tablet Take 1 tablet by mouth once daily. atorvastatin (LIPITOR) 40 mg tablet Take 1 tablet by mouth once daily. metoclopramide HCl (REGLAN) 5 mg tablet Take 1 tablet by mouth every 6 hours for 30 days; administer 30 minutes before a meal. Insulin Syringe-Needle U-100 (BD INSULIN SYRINGE ULTRA-FINE) 1 mL 31 gauge x 5/16 Use 4 syringes daily if insulin pump fails blood sugar diagnostic (ACCU-CHEK GUIDE TEST STRIPS) test strip Use with blood glucose test upto four times daily insulin lispro (HUMALOG U-100 INSULIN) 100 unit/mL injection as directed in Insulin pump up to 110 units daily. Dx E10.65 losartan (COZAAR) 100 mg tablet Take 1 tablet by mouth once daily. diclofenac sodium (VOLTAREN ARTHRITIS PAIN TOPICAL) Apply 2 g to affected area as needed (pain). lidocain-me.lpjosrv-zlbn-esvuq 0.5-20-0.035-5 % ptmd Apply 1 Each to affected area as needed. albuterol HFA (PROVENTIL HFA, VENTOLIN HFA) 90 mcg/actuation inhaler Inhale 2 Puffs as instructed every 4 hours as needed for wheezing/shortness of breath. WALKER ROLLATOR SEAT WITH 6 WHEELS - RED For ambulation nitroglycerin (NITROLINGUAL) 400 mcg/spray spray one every 5 minutes x3 as needed Bacillus coagulans/inulin (PROBIOTIC WITH PREBIOTIC ORAL) Take 1 capsule by mouth once daily. aspirin 81 mg chewable tablet Take 1 tablet by mouth once daily. Cholecalciferol, Vitamin D3, 125 mcg (5,000 unit) cap Take 1 capsule by mouth once daily. multivitamin tablet Take 1 tablet by mouth once daily. acetaminophen (TYLENOL 8 HOUR) 650 mg CR tablet Take 1 tablet by mouth every 8 hours as needed. neomycin 500 mg tablet Take 1 tablet by mouth every 12 hours. (Patient not taking: Reported on 11/25/2023) traMADol (ULTRAM) 50 mg tablet Take 50 mg by mouth every 6 hours as needed for pain. (Patient not taking: Reported on 05/30/2024) Biotin 1 mg tab Take 1 tablet by mouth once daily. No current facility-administered medications for this visit. FAMILY HISTORY Problem Relation Age of Onset Cancer Mother breast (diagnosed mid 50's) Heart Mother valvular other (Other) Father leukemia (dx'd age 55) Asthma Paternal Grandmother Diabetes Paternal Grandmother Colon Cancer Other none other (autoimmune def) Daughter SOCIAL HISTORY: Lives in [place] with spouse. 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 Son in law is a pediatric physician Tobacco use: None Alcohol use: None Drug use: None PHYSICAL EXAM: VITALS: Blood pressure 112/69, pulse (!) 57, temperature 36.6 ?C (97.8 ?F), temperature source Temporal, height 157.5 cm (5' 2), weight 68 kg (150 lb). CONSTITUTIONAL: Well-appearing, in NAD. SKIN: No [...] R 2nd-5th PIPs-L 4th PIP and knees *Feb Widespread Pain Index: 13 (0-19) Symptoms Severity Scale: 3 (0-12) WPI>7 and SS Scale>5 OR WPI 3-6 and SS Scale >9 consistent with fibromyalgia LABORATORY: Latest Ref Rng 01/25/2024 WBC 3.70 - 11.00 k/uL 7.75 RBC 3.90 - 5.20 m/uL 3.64 (L) Hemoglobin 11.5 - 15.5 g/dL 12.3 Platelet Count 150 - 400 k/uL 259 Creatinine 0.58 - 0.96 mg/dL 0.68 eGFR >=60 mL/min/1.73m? 90 AST 13 - 35 U/L 32 ALT 7 - 38 U/L 25 *Nov neg RF, CCP, SUSI, scl70, ssa Component Latest Ref Rng AND Units 06/29/2006 05/19/2019 Rheumatoid Factor <16 IU/mL [...] maintained *Mar DEXA- normal IMPRESSION and PLAN: 1. Seropositive RA: Hand and foot pain in the setting of RF positivity and ILD. Has been on multiple medications: HCQ, MTX, humira, enbrel, and orencia. However, with significantly improved symptoms s/p multiple strokes. serologies unremarkable but explained hx is still c/w RA. Had been stable on HCQ but then was off for a period in , resumed once daily afterward. Currently stable. - Continue HCQ 200mg bid along ophthalmology follow-up at least annually thereafter (last normal in Apr) - No further tx is needed at this time from the joint perspective but advised in the past to let us know if the [employer] division manager feels like additional tx is needed from the ILD standpoint so that we can provide input as needed - Continue pulmonary management of ILD, referral to pulmonary provded 2. History of osteopenia: Multiple remote fractures, not clearly fragility fractures per history. Remote use of fosamax - per the medication list although she doesn't recall this. DEXA with normal BMD, Nov DXA with osteopenia - Calcium and vitamin D supplementation - Check DEXA in Feb 3. Gastroparesis: Negative prior testing for SSc - Given referral to GI 4. General health maintenance: - Advised to continue follow-up with PCP for routine health maintenance and malignancy screening Follow-up in 5 months with Alberto and 10 months with . Thank you for allowing me to participate in the care of your patient. Juan Grajeda MD CNOV Observed: 05/30/2024 10:20 AM Status: COMPLETED Source: [facility] Office Visit (MOISÉS) MCKAYLA RUSSO ([id number]) 1945 F Date Time Provider Department 05/30/24 10:20 AM JUAN GRAJEDA During your visit today, we recorded the following information about you: Temperature Pulse Blood pressure Weight 97.8 degrees 57/minute 112/69 68 kg Height 1.575 m Juan Grajeda MD 05/30/2024 10:40 AM Signed On 05/30/2024, I had the pleasure of seeing Mckayla Russo at the [facility] for seropositive RA HPI: To review, Mckayla Russo is a 78 year old female *Re: BMD - Around [...] diagnosed with ILD. Sees Dr. Garcia in [place] for pulmonary - In Nov, advised to stop HCQ completely per core feeder as he didn't think she had RA - In Dec, was told by [employer] division manager to continue HCQ, to never stop it. - In Jan, advised to resume HCQ once daily per core feeder (but didn't say why). - In Feb, reported that hands had become swollen off HCQ. Had been on HCQ for less than a month, hadn't kicked back in yet. - In Dec, reported stable joints. Interim dx of gastroparesis - Today, reports joints are doing well. With some pain in the neck/back. - With difficulty breathing since covid a few months ago, in the setting of ILD. Hasn't seen local lung specialist recently - Last plaquenil eye exam normal around Apr PAST MEDICAL HISTORY Diagnosis Date Abnormal mammogram, unspecified left breast BPPV (benign paroxysmal positional vertigo) 02/11/2015 BPV (benign positional vertigo) CAD (coronary artery disease) Carotid stenosis CARPAL TUNNEL BILATERRAL 08/08/2005 Coronary artery disease involving [place] coronary artery Dr. 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 ([facility]) 12/06/2018 Other and unspecified hyperlipidemia Other forms [...] 02/24/08 LEFT - benign ALLERGIES Allergen Reactions Amitriptyline Other: See Comments Confusion, falls Cymbalta [Duloxetin* Unknown Doxycycline GI Upset headache Ephedrine Other: See Comments tachycardia, but pt. states she still uses nose spray Iodine Itching itching after prolonged use Isolone Forte Swelling Levaquin [Levofloxa* Other: See Comments Achilles tendon problem Lyrica [Pregabalin] Other: See Comments Dizziness at 225mg twice daily Oxycodone Mental Status Change Percocet [Oxycodone* Unknown Sulfa (Sulfonamide * Hives blisters Aggrenox [Aspirin-D* Other: See Comments MIGRAINES AND VOMITING Cephalexin (Bulk) GI Upset Duricef [Cefadroxil] Hives Nortriptyline Other: See Comments vertigo MEDICATIONS: Current Outpatient Medications Medication Sig insulin glargine (LANTUS SOLOSTAR U-100 INSULIN) 100 unit/mL (3 mL) Take 51 units once a day when in case of pump failure [START ON 06/06/2024] zolpidem (AMBIEN) 10 mg Take 1 tablet by mouth at bedtime as needed (insomnia) for up to 90 days. Patient should start on June 06, 2024. pramipexole (MIRAPEX) 1 mg tablet Take 2 tablets by mouth daily at bedtime. hydrOXYchloroQUINE (PLAQUENIL) 200 mg tablet Take 1.5 tablets by mouth once daily. famotidine (PEPCID) 20 mg tablet Take 1 tablet by mouth two times a day. guaiFENesin (MUCINEX) 600 mg 12 hr tablet Take 1 tablet by mouth two times a day. Infusion Set for Insulin Pump ([employer] EXT INFUSION SET 23) iset 1 Each one time a week. amLODIPine (NORVASC) 5 mg tablet Take 1 tablet by mouth once daily. benzonatate (TESSALON PERLES) 100 mg capsule Take 1 capsule by mouth three times a day as needed for cough. nystatin (MYCOSTATIN) powder Apply 1 application to affected area three times a day. clopidogrel (PLAVIX) 75 mg tablet Take 1 tablet by mouth once daily. atorvastatin (LIPITOR) 40 mg tablet Take 1 tablet by mouth once daily. metoclopramide HCl (REGLAN) 5 mg tablet Take 1 tablet by mouth every 6 hours for 30 days; administer 30 minutes before a meal. Insulin Syringe-Needle U-100 (BD INSULIN SYRINGE ULTRA-FINE) 1 mL 31 gauge x 5/16 Use 4 syringes daily if insulin pump fails blood sugar diagnostic (ACCU-CHEK GUIDE TEST STRIPS) test strip Use with blood glucose test upto four times daily insulin lispro (HUMALOG U-100 INSULIN) 100 unit/mL injection as directed in Insulin pump up to 110 units daily. Dx E10.65 losartan (COZAAR) 100 mg tablet Take 1 tablet by mouth once daily. diclofenac sodium (VOLTAREN ARTHRITIS PAIN TOPICAL) Apply 2 g to affected area as needed (pain). lidocain-me.dafktde-pbqc-iyxfx 0.5-20-0.035-5 % ptmd Apply 1 Each to affected area as needed. albuterol HFA (PROVENTIL HFA, VENTOLIN HFA) 90 mcg/actuation inhaler Inhale 2 Puffs as instructed every 4 hours as needed for wheezing/shortness of breath. WALKER ROLLATOR SEAT WITH 6 WHEELS - RED For ambulation nitroglycerin (NITROLINGUAL) 400 mcg/spray spray one every 5 minutes x3 as needed Bacillus coagulans/inulin (PROBIOTIC WITH PREBIOTIC ORAL) Take 1 capsule by mouth once daily. aspirin 81 mg chewable tablet Take 1 tablet by mouth once daily. Cholecalciferol, Vitamin D3, 125 mcg (5,000 unit) cap Take 1 capsule by mouth once daily. multivitamin tablet Take 1 tablet by mouth once daily. acetaminophen (TYLENOL 8 HOUR) 650 mg CR tablet Take 1 tablet by mouth every 8 hours as needed. neomycin 500 mg tablet Take 1 tablet by mouth every 12 hours. (Patient not taking: Reported on 11/25/2023) traMADol (ULTRAM) 50 mg tablet Take 50 mg by mouth every 6 hours as needed for pain. (Patient not taking: Reported on 05/30/2024) Biotin 1 mg tab Take 1 tablet by mouth once daily. No current facility-administered medications for this visit. FAMILY HISTORY Problem Relation Age of Onset Cancer Mother breast (diagnosed mid 50's) Heart Mother valvular other (Other) Father leukemia (dx'd age 55) Asthma Paternal Grandmother Diabetes Paternal Grandmother Colon Cancer Other none other (autoimmune def) Daughter SOCIAL HISTORY: Lives in [place] with spouse. 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 Son in law is a pediatric physician Tobacco use: None Alcohol use: None Drug use: None PHYSICAL EXAM: VITALS: Blood pressure 112/69, pulse (!) 57, temperature 36.6 ?C (97.8 ?F), temperature source Temporal, height 157.5 cm (5' 2), weight 68 kg (150 lb). CONSTITUTIONAL: Well-appearing, in NAD. SKIN: No [...] R 2nd-5th PIPs-L 4th PIP and knees *Feb Widespread Pain Index: 13 (0-19) Symptoms Severity Scale: 3 (0-12) WPI>7 and SS Scale>5 OR WPI 3-6 and SS Scale >9 consistent with fibromyalgia LABORATORY: Latest Ref Rng 01/25/2024 WBC 3.70 - 11.00 k/uL 7.75 RBC 3.90 - 5.20 m/uL 3.64 (L) Hemoglobin 11.5 - 15.5 g/dL 12.3 Platelet Count 150 - 400 k/uL 259 Creatinine 0.58 - 0.96 mg/dL 0.68 eGFR >=60 mL/min/1.73m? 90 AST 13 - 35 U/L 32 ALT 7 - 38 U/L *Nov neg RF, CCP, SUSI, scl70, ssa Component Latest Ref Rng AND Units 06/29/2006 05/19/2019 Rheumatoid Factor <16 IU/mL [...] maintained *Mar DEXA- normal IMPRESSION and PLAN: 1. Seropositive RA: Hand and foot pain in the setting of RF positivity and ILD. Has been on multiple medications: HCQ, MTX, humira, enbrel, and orencia. However, with significantly improved symptoms s/p multiple strokes. serologies unremarkable but explained hx is still c/w RA. Had been stable on HCQ but then was off for a period in , resumed once daily afterward. Currently stable. - Continue HCQ 200mg bid along ophthalmology follow-up at least annually thereafter (last normal in Apr) - No further tx is needed at this time from the joint perspective but advised in the past to let us know if the [employer] division manager feels like additional tx is needed from the ILD standpoint so that we can provide input as needed - Continue pulmonary management of ILD, referral to pulmonary provded 2. History of osteopenia: Multiple remote fractures, not clearly fragility fractures per history. Remote use of fosamax '- per the medication list although she doesn't recall this. DEXA with normal BMD, Nov DXA with osteopenia - Calcium and vitamin D supplementation - Check DEXA in Feb 3. Gastroparesis: Negative prior testing for SSc - Given referral to GI 4. General health maintenance: - Advised to continue follow-up with PCP for routine health maintenance and malignancy screening Follow-up in 5 months with Alberto and 10 months with me. Thank you for allowing me to participate in the care of your patient. Juan Grajeda MD Allergies As of Date: 05/30/2024 Noted Allergy Reaction AMITRIPTYLINE 11/09/2012 14 - Other: See Comments Comments: Confusion, falls CYMBALTA (DULOXETINE) 06/07/2015 16 - Unknown DOXYCYCLINE 06/11/2011 8 - GI Upset Comments: headache EPHEDRINE 01/10/2005 14 - Other: See Comments Comments: tachycardia, but pt. states she still uses nose spray IODINE 07/29/2006 9 - Itching Comments: itching after prolonged use ISOLONE FORTE 04/06/2023 7 - Swelling LEVAQUIN (LEVOFLOXACIN) 05/26/2012 14 - Other: See Comments Comments: Achilles tendon problem LYRICA (PREGABALIN) 05/26/2012 14 - Other: See Comments Comments: Dizziness at 225mg twice daily OXYCODONE 01/21/2021 1 - Mental Status Change PERCOCET (OXYCODONE-ACETAMINOPHEN)05/29/2010 16 - Unknown SULFA (SULFONAMIDE ANTIBIOTICS) 01/10/2005 4 - Hives Comments: blisters AGGRENOX (ASPIRIN-DIPYRIDAMOLE) 12/18/2008 14 - Other: See Comments Comments: MIGRAINES AND VOMITING CEPHALEXIN (BULK) 05/12/2008 8 - GI Upset DURICEF (CEFADROXIL) 01/10/2005 4 - Hives NORTRIPTYLINE 02/11/2013 14 - Other: See Comments Comments: vertigo Date Reviewed: 05/30/2024 Reviewed by: Frankie Amanda MA - Fully Assessed Reason for Visit: Established Patient [175] Primary Visit Diagnosis:Seropositive rheumatoid arthritis (HCC) [M05.9] Other Visit Diagnoses:Long-term use of Plaquenil [Z79.899] Interstitial lung disease (HCC) [J84.9] Osteopenia of right hip [M85.851] Gastroparesis [K31.84] Order(s):CONSULT TO PULMONARY MEDICINE [7609730] Order #: [id number]: 1 CONSULT TO GASTROENTEROLOGY [9010] Order #: [id number]: 1 FUTURE hydrOXYchloroQUINE (PLAQUENIL) 200 mg tabletTake 1.5 tablets by mouth once daily.Disp: 135 tabletRfl: 3 Prescriptions as of 05/30/2024 - hydrOXYchloroQUINE (PLAQUENIL) 200 mg tablet Take 1.5 tablets by mouth once daily. - insulin glargine (LANTUS SOLOSTAR U-100 INSULIN) 100 unit/mL (3 mL) Take 51 units once a day when in case of pump failure - zolpidem (AMBIEN) 10 mg Take 1 tablet by mouth at bedtime as needed (insomnia) for up to 90 days. Patient should start on June 06, 2024. - pramipexole (MIRAPEX) 1 mg tablet Take 2 tablets by mouth daily at bedtime. - famotidine (PEPCID) 20 mg tablet Take 1 tablet by mouth two times a day. - guaiFENesin (MUCINEX) 600 mg 12 hr tablet Take 1 tablet by mouth two times a day. - Infusion Set for Insulin Pump (MEDTR[employer]IC EXT INFUSION SET 23) iset 1 Each one time a week. - amLODIPine (NORVASC) 5 mg tablet Take 1 tablet by mouth once daily. - benzonatate (TESSALON PERLES) 100 mg capsule Take 1 capsule by mouth three times a day as needed for cough. - nystatin (MYCOSTATIN) powder Apply 1 application to affected area three times a day. - clopidogrel (PLAVIX) 75 mg tablet Take 1 tablet by mouth once daily. - atorvastatin (LIPITOR) 40 mg tablet Take 1 tablet by mouth once daily. - neomycin 500 mg tablet Take 1 tablet by mouth every 12 hours. - metoclopramide HCl (REGLAN) 5 mg tablet Take 1 tablet by mouth every 6 hours for 30 days; administer 30 minutes before a meal. - Insulin Syringe-Needle U-100 (BD INSULIN SYRINGE ULTRA-FINE) 1 mL 31 gauge x 16 Use 4 syringes daily if insulin pump fails - blood sugar diagnostic (ACCU-CHEK GUIDE TEST STRIPS) test strip Use with blood glucose test upto four times daily - insulin lispro (HUMALOG U-100 INSULIN) 100 unit/mL injection as directed in Insulin pump up to 110 units daily. Dx E10.65 - losartan (COZAAR) 100 mg tablet Take 1 tablet by mouth once daily. - diclofenac sodium (VOLTAREN ARTHRITIS PAIN TOPICAL) Apply 2 g to affected area as needed (pain). - lidocain-me.zvxrlln-lfvf-dzzit 0.5-20-0.035-5 % ptmd Apply 1 Each to affected area as needed. - traMADol (ULTRAM) 50 mg tablet Take 50 mg by mouth every 6 hours as needed for pain. - albuterol HFA (PROVENTIL HFA, VENTOLIN HFA) 90 mcg/actuation inhaler Inhale 2 Puffs as instructed every 4 hours as needed for wheezing/shortness of breath. - WALKER ROLLATOR SEAT WITH 6 WHEELS - RED For ambulation - nitroglycerin (NITROLINGUAL) 400 mcg/spray spray one every 5 minutes x3 as needed - Bacillus coagulans/inulin (PROBIOTIC WITH PREBIOTIC ORAL) Take 1 capsule by mouth once daily. - aspirin 81 mg chewable tablet Take 1 tablet by mouth once daily. - Cholecalciferol, Vitamin D3, 125 mcg (5,000 unit) cap Take 1 capsule by mouth once daily. - Biotin 1 mg tab Take 1 tablet by mouth once daily. - multivitamin tablet Take 1 tablet by mouth once daily. - acetaminophen (TYLENOL 8 HOUR) 650 mg CR tablet Take 1 tablet by mouth every 8 hours as needed. Problem List As Of Date 05/30/2024 Noted Resolved Hyperlipidemia [E78.5] Hypertension [I10] Coronary artery disease involving [place] p[place]* 09/29/2019 Dizziness and Giddiness [R42] 04/30/2009 Postsurgical Percutaneous Transluminal Coronary* 04/30/2009 Mild intermittent asthma without complication [* 09/29/2019 Other psoriasis [L40.8] 09/29/2019 Disorder of bone and cartilage [M89.9, M94.9] 09/29/2019 ESOPHAGITIS [530.1] Diverticulosis of Colon (without Mention of Hem* 04/30/2009 External Hemorrhoids without Mention of Complic* 04/30/2009 Internal Hemorrhoids without Mention of Complic* 04/30/2009 Allergic Rhinitis, Cause Unspecified [J30.9] 01/13/2005 06/25/2015 Ingrowing Nail [L60.0] 03/20/2005 04/30/2009 Pain in Soft Tissues of Limb [M79.609] 03/20/2005 04/30/2009 CARPAL TUNNEL BILATERRAL [M13.149] 08/08/2005 09/29/2019 Nonspecific Abnormal Results of Liver Function *08/08/2005 04/30/2009 OVERWEIGHT [E66.9] 08/08/2005 04/30/2009 Dermatophytosis of Nail [B35.1] 09/04/2005 04/30/2009 Depression [F32.5] 12/18/2005 Anxiety state [F41.1] 12/18/2005 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] 03/23/2006 04/30/2009 Pain in Joint, Shoulder Region [M25.519] 05/22/2006 04/30/2009 Neck Sprain and Strain [S13.9XXA] 05/22/2006 04/30/2009 Onychia and Paronychia of Toe [L03.039] 08/11/2006 04/30/2009 Cellulitis and Abscess of Foot, except Toes [L0*08/24/2006 04/30/2009 Rheumatoid arthritis (HCC) [M06.9] 12/04/2006 Anemia, unspecified [D64.9] 12/04/2006 09/29/2019 Sleep apnea [G47.30] 03/08/2007 Acute Bronchitis [J20.9] 05/18/2008 04/30/2009 Tenosynovitis of Foot and Ankle [M65.979] 06/29/2008 04/30/2009 Vitamin deficiency [E56.9] 04/23/2009 Routine general medical examination at [facility]*04/30/2009 06/25/2015 Class: Chronic Routine gynecological examination [Z01.419] 04/30/2009 06/25/2015 Class: Chronic Diverticulosis of colon [K57.30] 04/30/2009 Cerebral infarction (HCC) [I63.9] 07/16/2009 Pain in joint, lower leg [M25.569] 01/21/2010 06/25/2015 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] 04/25/2010 Restless legs syndrome (RLS) [G25.81] 06/25/2010 Calcifying tendinitis of shoulder [M75.30] 07/09/2010 Venous insufficiency [I87.2] 09/08/2011 Thoracic or lumbosacral neuritis or radiculitis*03/01/2012 09/29/2019 Abnormality of gait [R26.9] 03/01/2012 06/25/2015 Vertigo [R42] 02/02/2013 06/25/2015 Cervicalgia [M54.2] 08/04/2014 Gait abnormality [R26.9] 08/04/2014 BPPV (benign paroxysmal positional vertigo) [H8*02/11/2015 09/29/2019 Obstructive sleep apnea syndrome [G47.33] 06/08/2015 Mixed hyperlipidemia [E78.2] 06/08/2015 GERD (gastroesophageal reflux disease) [K21.9] 08/09/2015 RLS (restless legs syndrome) [G25.81] 08/09/2015 Insomnia [G47.00] 08/09/2015 Vertigo [R42] 08/12/2015 09/29/2019 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/2015 Coronary artery disease [I25.10] 08/29/2015 Mild nonproliferative diabetic retinopathy of b*12/06/2018 Hypoglycemia unawareness in type 1 diabetes emre*01/18/2019 Other dysphagia [R13.19] 07/18/2019 09/29/2019 DKA (diabetic ketoacidoses) ([facility]) [E11.10] 09/28/2019 10/18/2020 Asthma [J45.909] 09/29/2019 SHERLYN (acute kidney injury) ([facility]) [N17.9] 09/29/2019 09/30/2019 H/O multiple allergies [Z88.9] 06/19/[address] [Z96.41] 07/10/2020 Type 1 diabetes mellitus with mild nonprolifera*10/18/2020 Type 1 diabetes mellitus with diabetic neuropat*10/18/2020 Class 2 severe obesity with serious comorbidity*10/18/2020 Bilateral carotid artery stenosis [I65.23] 05/10/2021 Prescriptions ordered this encounter Disp Refills Start End HYDROXYCHLOROQUINE 200 MG TABLET 135 * 3 05/30/2024 Route: ORAL Sig: Take 1.5 tablets by mouth once daily. Medications Discontinued During This Encounter Prescriptions - hydrOXYchloroQUINE (PLAQUENIL) 200 mg tablet (Discontinued) Take 1.5 tablets by mouth once daily. Disposition: Return for 10 months w/me. Follow-up and Disposition History for Encounter Date Provider Department Center 05/30/2024 [id number] GRAJEDA Formerly [facility] Stro Encounter Status:Closed by JUAN GRAJEDA on 05/30/24 CNPN Observed: 05/30/2024 12:00 AM Status: COMPLETED Source: [facility] Telephone (ORQ) MCKAYLA RUSSO ([id number]) 1945 F Date Time Provider Department 05/30/24 JUAN GRAJEDA ORQ During your visit today, we recorded the following information about you: Keli Gonzalez 05/31/2024 11:17 AM Addendum CONSULT TO PULMONARY MEDICINE (Order #[id number]) on 05/30/24 Appointment For: ILD Year of Diagnosis: Referring Provider: Keli Blanca 05/31/2024 11:13 AM Signed CONSULT TO GASTROENTEROLOGY (Order #[id number]) on 05/30/24 Mckayla Russo is being referred to or the Gastroparesis clinic. Referring Physician: Dr. Grajeda Preferred phone number for contact: [phone] Send to GASTROPARESIS SCHEDULING POOL [[id number]] Flakito Matamoros 05/31/2024 4:10 PM [address] Address GI referral in separate encounter. Alyssa Villanueva MD 06/03/2024 11:32 AM Signed Telephone on 05/30/24 CONSULT TO PULMONARY MEDICINE Alyssa Villanueva MD Allergies As of Date: 05/30/2024 Noted Allergy Reaction AMITRIPTYLINE 11/09/2012 14 - Other: See Comments Comments: Confusion, falls CYMBALTA (DULOXETINE) 06/07/2015 16 - Unknown DOXYCYCLINE 06/11/2011 8 - GI Upset Comments: headache EPHEDRINE 01/10/2005 14 - Other: See Comments Comments: tachycardia, but pt. states she still uses nose spray IODINE 07/29/2006 9 - Itching Comments: itching after prolonged use ISOLONE FORTE 04/06/2023 7 - Swelling LEVAQUIN (LEVOFLOXACIN) 05/26/2012 14 - Other: See Comments Comments: Achilles tendon problem LYRICA (PREGABALIN) 05/26/2012 14 - Other: See Comments Comments: Dizziness at 225mg twice daily OXYCODONE 01/21/2021 1 - Mental Status Change PERCOCET (OXYCODONE-ACETAMINOPHEN)05/29/2010 16 - Unknown SULFA (SULFONAMIDE ANTIBIOTICS) 01/10/2005 4 - Hives Comments: blisters AGGRENOX (ASPIRIN-DIPYRIDAMOLE) 12/18/2008 14 - Other: See Comments Comments: MIGRAINES AND VOMITING CEPHALEXIN (BULK) 05/12/2008 8 - GI Upset DURICEF (CEFADROXIL) 01/10/2005 4 - Hives NORTRIPTYLINE 02/11/2013 14 - Other: See Comments Comments: vertigo Date Reviewed: 05/30/2024 Reviewed by: Frankie Amanda MA - Fully Assessed Primary Visit Diagnosis:Interstitial lung disease (HCC) [J84.9] Order(s):CONSULT TO PULMONARY MEDICINE [[id number]] Order #: [id number]: 1 Prescriptions as of 06/07/2024 - insulin glargine (LANTUS SOLOSTAR U-100 INSULIN) 100 unit/mL (3 mL) Take 51 units once a day when in case of pump failure - clopidogrel (PLAVIX) 75 mg tablet Take 1 tablet by mouth once daily. - losartan (COZAAR) 100 mg tablet Take 1 tablet by mouth once daily. - hydrOXYchloroQUINE (PLAQUENIL) 200 mg tablet Take 1.5 tablets by mouth once daily. - zolpidem (AMBIEN) 10 mg Take 1 tablet by mouth at bedtime as needed (insomnia) for up to 90 days. Patient should start on June 06, 2024. - pramipexole (MIRAPEX) 1 mg tablet Take 2 tablets by mouth daily at bedtime. - famotidine (PEPCID) 20 mg tablet Take 1 tablet by mouth two times a day. - guaiFENesin (MUCINEX) 600 mg 12 hr tablet Take 1 tablet by mouth two times a day. - Infusion Set for Insulin Pump ([employer] EXT INFUSION SET 23) iset 1 Each one time a week. - amLODIPine (NORVASC) 5 mg tablet Take 1 tablet by mouth once daily. - benzonatate (TESSALON PERLES) 100 mg capsule Take 1 capsule by mouth three times a day as needed for cough. - nystatin (MYCOSTATIN) powder Apply 1 application to affected area three times a day. - atorvastatin (LIPITOR) 40 mg tablet Take 1 tablet by mouth once daily. - neomycin 500 mg tablet Take 1 tablet by mouth every 12 hours. - metoclopramide HCl (REGLAN) 5 mg tablet Take 1 tablet by mouth every 6 hours for 30 days; administer 30 minutes before a meal. - Insulin Syringe-Needle U-100 (BD INSULIN SYRINGE ULTRA-FINE) 1 mL 31 gauge x 5/16 Use 4 syringes daily if insulin pump fails - blood sugar diagnostic (ACCU-CHEK GUIDE TEST STRIPS) test strip Use with blood glucose test upto four times daily - insulin lispro (HUMALOG U-100 INSULIN) 100 unit/mL injection as directed in Insulin pump up to 110 units daily. Dx E10.65 - diclofenac sodium (VOLTAREN ARTHRITIS PAIN TOPICAL) Apply 2 g to affected area as needed (pain). - lidocain-me.eeumprc-unhx-lbahs 0.5-20-0.035-5 % ptmd Apply 1 Each to affected area as needed. - traMADol (ULTRAM) 50 mg tablet Take 50 mg by mouth every 6 hours as needed for pain. - albuterol HFA (PROVENTIL HFA, VENTOLIN HFA) 90 mcg/actuation inhaler Inhale 2 Puffs as instructed every 4 hours as needed for wheezing/shortness of breath. - WALKER ROLLATOR SEAT WITH 6 WHEELS - RED For ambulation - nitroglycerin (NITROLINGUAL) 400 mcg/spray spray one every 5 minutes x3 as needed - Bacillus coagulans/inulin (PROBIOTIC WITH PREBIOTIC ORAL) Take 1 capsule by mouth once daily. - aspirin 81 mg chewable tablet Take 1 tablet by mouth once daily. - Cholecalciferol, Vitamin D3, 125 mcg (5,000 unit) cap Take 1 capsule by mouth once daily. - Biotin 1 mg tab Take 1 tablet by mouth once daily. - multivitamin tablet Take 1 tablet by mouth once daily. - acetaminophen (TYLENOL 8 HOUR) 650 mg CR tablet Take 1 tablet by mouth every 8 hours as needed. Problem List As Of Date 05/30/2024 Noted Resolved Hyperlipidemia [E78.5] Hypertension [I10] Coronary artery disease involving [place]* 09/29/2019 Dizziness and Giddiness [R42] 04/30/2009 Postsurgical Percutaneous Transluminal Coronary* 04/30/2009 Mild intermittent asthma without complication [* 09/29/2019 Other psoriasis [L40.8] 09/29/2019 Disorder of bone and cartilage [M89.9, M94.9] 09/29/2019 ESOPHAGITIS [530.1] Diverticulosis of Colon (without Mention of Hem* 04/30/2009 External Hemorrhoids without Mention of Complic* 04/30/2009 Internal Hemorrhoids without Mention of Complic* 04/30/2009 Allergic Rhinitis, Cause Unspecified [J30.9] 01/13/2005 06/25/2015 Ingrowing Nail [L60.0] 03/20/2005 04/30/2009 Pain in Soft Tissues of Limb [M79.609] 03/20/2005 04/30/2009 CARPAL TUNNEL BILATERRAL [M13.149] 08/08/2005 09/29/2019 Nonspecific Abnormal Results of Liver Function *08/08/2005 04/30/2009 OVERWEIGHT [E66.9] 08/08/2005 04/30/2009 Dermatophytosis of Nail [B35.1] 09/04/2005 04/30/2009 Depression [F32.5] 12/18/2005 Anxiety state [F41.1] 12/18/2005 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] 03/23/2006 04/30/2009 Pain in Joint, Shoulder Region [M25.519] 05/22/2006 04/30/2009 Neck Sprain and Strain [S13.9XXA] 05/22/2006 04/30/2009 Onychia and Paronychia of Toe [L03.039] 08/11/2006 04/30/2009 Cellulitis and Abscess of Foot, except Toes [L0*08/24/2006 04/30/2009 Rheumatoid arthritis (HCC) [M06.9] 12/04/2006 Anemia, unspecified [D64.9] 12/04/2006 09/29/2019 Sleep apnea [G47.30] 03/08/2007 Acute Bronchitis [J20.9] 05/18/2008 04/30/2009 Tenosynovitis of Foot and Ankle [M65.979] 06/29/2008 04/30/2009 Vitamin deficiency [E56.9] 04/23/2009 Routine general medical examination at [facility]*04/30/2009 06/25/2015 Class: Chronic Routine gynecological examination [Z01.419] 04/30/2009 06/25/2015 Class: Chronic Diverticulosis of colon [K57.30] 04/30/2009 Cerebral infarction (HCC) [I63.9] 07/16/2009 Pain in joint, lower leg [M25.569] 01/21/2010 06/25/2015 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] 04/25/2010 Restless legs syndrome (RLS) [G25.81] 06/25/2010 Calcifying tendinitis of shoulder [M75.30] 07/09/2010 Venous insufficiency [I87.2] 09/08/2011 Thoracic or lumbosacral neuritis or radiculitis*03/01/2012 09/29/2019 Abnormality of gait [R26.9] 03/01/2012 06/25/2015 Vertigo [R42] 02/02/2013 06/25/2015 Cervicalgia [M54.2] 08/04/2014 Gait abnormality [R26.9] 08/04/2014 BPPV (benign paroxysmal positional vertigo) [H8*02/11/2015 09/29/2019 Obstructive sleep apnea syndrome [G47.33] 06/08/2015 Mixed hyperlipidemia [E78.2] 06/08/2015 GERD (gastroesophageal reflux disease) [K21.9] 08/09/2015 RLS (restless legs syndrome) [G25.81] 08/09/2015 Insomnia [G47.00] 08/09/2015 Vertigo [R42] 08/12/2015 09/29/2019 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/2015 Coronary artery disease [I25.10] 08/29/2015 Mild nonproliferative diabetic retinopathy of b*12/06/2018 Hypoglycemia unawareness in type 1 diabetes emre*01/18/2019 Other dysphagia [R13.19] 07/18/2019 09/29/2019 DKA (diabetic ketoacidoses) ([facility]) [E11.10] 09/28/2019 10/18/2020 Asthma [J45.909] 09/29/2019 SHERLYN (acute kidney injury) ([facility]) [N17.9] 09/29/2019 09/30/2019 H/O multiple allergies [Z88.9] 06/19/[address] [Z96.41] 07/10/2020 Type 1 diabetes mellitus with mild nonprolifera*10/18/2020 Type 1 diabetes mellitus with diabetic neuropat*10/18/2020 Class 2 severe obesity with serious comorbidity*10/18/2020 Bilateral carotid artery stenosis [I65.23] 05/10/2021 Encounter Status:Closed by ALYSSA VILLANUEVA on 06/03/24 PROGRESS Observed: 05/23/2024 2:46 PM Status: COMPLETED Source: [facility] HNO ID: [id number] Author: DIAMOND RUSHING MA Service: ? 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 Type: Progress Notes Filed: 05/23/2024 18:16 Note Text: CNOV Observed: 05/23/2024 2:40 PM Status: COMPLETED Source: [facility] Office Visit (ENWSTR) MCKAYLA RUSSO ([id number]) 1945 F Date Time Provider Department 05/23/24 2:40 PM EVA NIELSEN During your visit today, we recorded the following information about you: Pulse Respiration Blood pressure Weight 69/minute 21/minute 128/68 68 kg Height 1.549 m Eva Nielsen MD 05/23/2024 6:15 PM Addendum [facility] Follow up visit Note History of present illness: This is a 78 year old female with history of type 1 diabetes, complicated by mild nonproliferative retinopathy of bilateral retina, Class I obesity, 3 strokes (2009, 2012), Bilateral carotid artery stenosis, CAD, HLD, HTN, SOLE, GERD, RA, Gastroparesis She is accompanied by her today, who is a type II diabetic. She was following Dr. Palm at [facility] in the recent past, last appointment in April 2023. Prior to that, she was following with endocrinology at [facility], last appointment in October 2020 with Princess Lim APRN. [facility] with me was 02/16/2024 Documentation from previous note of previous visit was copied and pasted and has been reviewed and edited as appropriate and is current for today. History in brief, -Initially diagnosed: at the age of 19 years -Circumstances around diagnosis: she had symptoms of hyperglycemia with severe . -Duration of diabetes: -Length of time on oral medications before switching to insulin: -Duration of insulin use: Started pump almost 25 years ago, when she was following with Dr. Mancilla Uses pump on the abdomen, and CGMS on her thigh -Hospitalizations for DKA: when she was on a different pump which was not automated Known complications include: hypertension, retinopathy, peripheral neuropathy and cardiovascular disease (CAD s/p PTCA) , CVA, gastroparesis on gastric emptying study following Dr. Dyer at [facility] [place] Exacerbating factors include: obesity Last NEIL/Retina Eval: May 02, 2024, reports left eye is having blurry vision, right eye is alright Nephropathy -- Yes STEFFANY/ARB Use -- Yes She was following with podiatry, Dr. Zhao Other -- Wheelchair bound due to stroke Current diabetes regimen is as follows: Basal insulin for back up: lantus Glucagon: denies Humalog via [employer] 780 G pump plus Guardian sensor Basal rate: 00:00= 1.40 0230= 1.40 0600= 1.45 0900=2.60 1930= 2.50 Total basal rate in 24 hours= 51.3 units Bolus: Insulin:carb ratio 00:00= 7.5 Sensitivity 00:00= 40 Blood glucose target= 110 mg/dL 00:00= 90-140 Active insulin time 2 hours Avg daily carbs 113 g +/- 33 Changing pump site every 2 days Changing sensor every 7 days . Symptoms -Polyuria: no -Polydipsia: no -Weight changes: she has lost considerable amount of weight with the help of diet She complains that the pump would not give bolus sometimes despite entering the carbs. She has spoken to [employer] and number of people that they recommended to see, and they told the pump was working okay . Lifestyle -Exercise: no routine exercise due to fall leading to mobility issues -Diet: reports carb consistent diet She has seen Nutrition services at [facility], and reports that it was not very beneficial, she saw dietitian at [facility] who started her on a gastroparesis nutritional plan She has seen endocrine dietitian and diabetic education few times now - but she has not been entering carbs from fruits (she only eats peaches) into the pump Interval history since last visit : I told her in the past twice (including on the most recent visit in 10/2023) that her pump might be malfunctioned and to call [employer]. When she did she was apparently told that the physician might be mistaken She also reports today that the infusion set is only lasting for 2 days before she received notification to change, she is running out of supplies She had a dietitian visit yesterday and was told by dietitian also that her pump is malfunctioned. She was also told that there might be some issues with her pump by our RN at diabetes education seen in 12/2023 She has also received steroid injections for joint pains in the past and she complains of ongoing pain ROS: As per HPI Past Medical History PAST MEDICAL HISTORY Diagnosis Date Abnormal mammogram, unspecified left breast BPPV (benign paroxysmal positional vertigo) 02/11/2015 BPV (benign positional vertigo) CAD (coronary artery disease) Carotid stenosis CARPAL TUNNEL BILATERRAL 08/08/2005 Coronary artery disease involving [place] coronary artery Dr. 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 ([facility]) 12/06/2018 Other and unspecified hyperlipidemia Other forms of migraine Other psoriasis Postsurgical percutaneous transluminal coronary angioplasty status Rheumatoid arthritis(714.0) RLS (restless legs syndrome) Stroke (cerebrum) ([facility]) x3 Thoracic or lumbosacral neuritis or radiculitis, unspecified 03/01/2012 Type I (juvenile type) diabetes mellitus with neurological manifestations, not stated as 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.61) 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, 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) Unspecified asthma(493.90) Unspecified essential hypertension Unspecified hereditary and idiopathic peripheral neuropathy Past Surgical History PAST SURGICAL HISTORY Procedure Laterality Date BREAST [...] STEREOTACTIC CORE BIOPSY 02/24/08 LEFT - benign Family History FAMILY HISTORY Problem Relation Age of Onset Cancer Mother breast (diagnosed mid 50's) Heart Mother valvular other (Other) Father leukemia (dx'd age 55) Asthma Paternal Grandmother Diabetes Paternal Grandmother Colon Cancer Other none other (autoimmune def) Daughter Social History Social History Tobacco Use Smoking status: Never Smokeless tobacco: Never Vaping Use Vaping status: Never Used Substance Use Topics Alcohol use: No Drug use: No Allergies ALLERGIES Allergen Reactions Amitriptyline Other: See Comments Confusion, falls Cymbalta [Duloxetin* Unknown Doxycycline GI Upset headache Ephedrine Other: See Comments tachycardia, but pt. states she still uses nose spray Iodine Itching itching after prolonged use Isolone Forte Swelling Levaquin [Levofloxa* Other: See Comments Achilles tendon problem Lyrica [Pregabalin] Other: See Comments Dizziness at 225mg twice daily Oxycodone Mental Status Change Percocet [Oxycodone* Unknown Sulfa (Sulfonamide * Hives blisters Aggrenox [Aspirin-D* Other: See Comments MIGRAINES AND VOMITING Cephalexin (Bulk) GI Upset Duricef [Cefadroxil] Hives Nortriptyline Other: See Comments vertigo Current Medications Current Outpatient Medications Medication Sig Dispense Refill [START ON 06/06/2024] zolpidem (AMBIEN) 10 mg Take 1 tablet by mouth at bedtime as needed (insomnia) for up to 90 days. Patient should start on June 06, 2024. 90 tablet 0 pramipexole (MIRAPEX) 1 mg tablet Take 2 tablets by mouth daily at bedtime. 180 tablet 1 hydrOXYchloroQUINE (PLAQUENIL) 200 mg tablet Take 1.5 tablets by mouth once daily. 135 tablet 0 famotidine (PEPCID) 20 mg tablet Take 1 tablet by mouth two times a day. 30 tablet 2 guaiFENesin (MUCINEX) 600 mg 12 hr tablet Take 1 tablet by mouth two times a day. 30 tablet 1 Infusion Set for Insulin Pump (MEDTRONIC EXT INFUSION SET 23) iset 1 Each one time a week. 20 Each 2 amLODIPine (NORVASC) 5 mg tablet Take 1 tablet by mouth once daily. 90 tablet 3 benzonatate (TESSALON PERLES) 100 mg capsule Take 1 capsule by mouth three times a day as needed for cough. 30 capsule 0 nystatin (MYCOSTATIN) powder Apply 1 application to affected area three times a day. 30 g 3 clopidogrel (PLAVIX) 75 mg tablet Take 1 tablet by mouth once daily. 90 tablet 3 atorvastatin (LIPITOR) 40 mg tablet Take 1 tablet by mouth once daily. 90 tablet 3 metoclopramide HCl (REGLAN) 5 mg tablet Take 1 tablet by mouth every 6 hours for 30 days; administer 30 minutes before a meal. Insulin Syringe-Needle U-100 (BD INSULIN SYRINGE ULTRA-FINE) 1 mL 31 gauge x 5/16 Use 4 syringes daily if insulin pump fails 100 Each 1 blood sugar diagnostic (ACCU-CHEK GUIDE TEST STRIPS) test strip Use with blood glucose test upto four times daily 200 Each 1 insulin lispro (HUMALOG U-100 INSULIN) 100 unit/mL injection as directed in Insulin pump up to 110 units daily. Dx E10.65 10 mL 3 losartan (COZAAR) 100 mg tablet Take 1 tablet by mouth once daily. 90 tablet 1 diclofenac sodium (VOLTAREN ARTHRITIS PAIN TOPICAL) Apply 2 g to affected area as needed (pain). lidocain-me.yaqrrkv-vuxh-jpbuo 0.5-20-0.035-5 % ptmd Apply 1 Each to affected area as needed. traMADol (ULTRAM) 50 mg tablet Take 50 mg by mouth every 6 hours as needed for pain. albuterol HFA (PROVENTIL HFA, VENTOLIN HFA) 90 mcg/actuation inhaler Inhale 2 Puffs as instructed every 4 hours as needed for wheezing/shortness of breath. WALKER ROLLATOR SEAT WITH 6 WHEELS - RED For ambulation 1 Each 0 nitroglycerin (NITROLINGUAL) 400 mcg/spray spray one every 5 minutes x3 as needed (Patient taking differently: Dissolve 1 [place] under the tongue every 5 minutes as needed for chest pain.) 4.9 g 3 Bacillus coagulans/inulin (PROBIOTIC WITH PREBIOTIC ORAL) Take 1 capsule by mouth once daily. aspirin 81 mg chewable tablet Take 1 tablet by mouth once daily. 30 tablet 11 Cholecalciferol, Vitamin D3, 125 mcg (5,000 unit) cap Take 1 capsule by mouth once daily. 90 capsule 3 Biotin 1 mg tab Take 1 tablet by mouth once daily. 30 tablet 0 multivitamin tablet Take 1 tablet by mouth once daily. 0 acetaminophen (TYLENOL 8 HOUR) 650 mg CR tablet Take 1 tablet by mouth every 8 hours as needed. neomycin 500 mg tablet Take 1 tablet by mouth every 12 hours. (Patient not taking: Reported on 11/25/2023) No current facility-administered medications for this visit. Labs Hemoglobin A1C (POCT) Date Value Ref Range Status 02/16/2024 6.8 (A) 4.3 - 5.6 % Final Comment: Location:[facility], [address], [place], [address] Point of care (POC) Hemoglobin A1c (HGBA1C) testing is intended to assess glucose control and provide a management tool for patients known to have diabetes and their healthcare providers. Target HGBA1C levels may depend on specific clinical circumstances. POC HGBA1C is not intended for use as a diagnostic or screening test; laboratory-based testing should be used for diagnostic purposes. The following information is supplemental and may not be applicable to specific diabetes management situations: The POC device gold leaf layer provides a normal range of 4.2% to 6.5% for the HGBA1C POC test. However, the [place] [employer] guidelines indicate that patients with HGBA1C in the range of 5.7% to 6.4% are at increased risk for development of diabetes and that intervention by lifestyle modification may be beneficial. A HGBA1C level greater than or equal to 6.5% is considered diagnostic of diabetes, pending confirmatory testing. Use of HGBA1C testing to evaluate glucose control may not be appropriate for patients with hemoglobin variants or other conditions (e.g. anemia) that alter red blood cell lifespan. Albumin/Creat Ratio Date Value Ref Range Status 09/01/2023 18 <30 mg/g Final Comment: Adult Male and Female Nephrotic Criteria: <30 mg/g is considered normal to mildly increased 30-300 mg/g is considered moderately increased >300 mg/g is considered severely increased KDIGO. (2013). KDIGO 2012 Clinical Practice Guideline for the Evaluation and Management of Chronic Kidney Disease. Official Journal of the International Society of Nephrology, 3(1), 1-150. Cholesterol, Total Date Value Ref Range Status 09/01/2023 122 <200 mg/dL Final Comment: <200 mg/dL, Desirable 200-239 mg/dL, Borderline high >239 mg/dL, High HDL Cholesterol Date Value Ref Range Status 09/01/2023 61 >39 mg/dL Final Comment: 40-59 mg/dL, Acceptable >59 mg/dL, High: Negative risk factor for coronary heart disease <40 mg/dL, Low: Positive risk factor for coronary heart disease LDL Cholesterol Date Value Ref Range Status 09/01/2023 49 <100 mg/dL Final Comment: <100 mg/dL, Optimal 100-129 mg/dL, Near optimal/above optimal 130-159 mg/dL, Borderline high 160-189 mg/dL, High >189 mg/dL, Very high Secondary prevention optimal LDL Cholesterol levels are recommended to be < 70 mg/dL Triglyceride Date Value Ref Range Status 09/01/2023 62 <150 mg/dL Final Comment: <150 mg/dL, Normal 150-199 mg/dL, Borderline high 200-499 mg/dL, High >499 mg/dL, Very high Hba1c 6.6% POC Vitals: 05/23/24 1440 BP: 128/68 BP Site: Right Arm BP Position: Sitting BP Cuff Size: Regular Adult Pulse: 69 Resp: 21 SpO2: 98% Weight: 68 kg (150 lb) Height: 154.9 cm (5' 1) Physical Exam GENERAL: Well nourished, obese, well hydrated, in no distress and oriented x 3. She is in wheel chair today EYES: no thyroid eye signs, EOMI NECK: , no tenderness and adenopathy THYROID: Non-tender to palpable, no evidence of goiter, no nodules palpable LUNGS: Unlabored on room air HEART: regular rate and rhythm Abdomen: pump sites without lipodystrophy NEURO: normal strength, no tremor SKIN: facial hair noted OTHER: Acanthosis None Assessment and Plan This is a 78-year-old female with past medical history of type 1 diabetes mellitus on Medtronic 780G pump with guardian sensor, retinopathy, peripheral neuropathy and cardiovascular disease (CAD s/p PTCA) , hypertension, CVA, gastroparesis presenting for evaluation and treatment. She also has a history of rheumatoid arthritis Type 1 diabetes with NPDR, neuropathy, gastroparesis on 780 G medtronic insulin pump: -A1c 6.6% today, improved from 6.8% in 01/2024 and 7.8% in 08/2023, after she started following instructions for insulin dosing as instructed regarding gastroparesis -eGFR 91 in 08/2023 Interpretation of sensor data: no lows noted, she is running high post meal with most meals (likely due to taking half dose under the background of gastroparesis), but the levels are appropriately coming down again Plan: - No changes made to pump settings today - her sugars are improved and has no lows either, with impressive Hba1c I discussed about giving insulin shots if pump malfunctions- discussed basal insulin, and bolus as well as correction scale to be taken in pump failure. I will send a prescription for lantus to be taken in case of pump failure. She is also advised about checking ketones at home, mainly useful when she is sick, jayesh after pump failure, and indicates DKA if ketones are high and rising - she is advised to go to the nearest ED in that case She has seen dietitian at [facility] and was given gastroparesis associated dietary changes Seen dietitian here, and diabetes education as well - she declined refills for Novolog insulin or infusion sets, today Again advised to calculate the carbs before each meal and take adequate insulin dose accordingly- can take half dose at the start of meal and the rest after completing the meal, especially if she has good appetite and intends to eat the whole meal. If appetite is low, advised to eat first and then take insulin according to the amount of carbs consumed. Discussed again to take correction dose of insulin for Blood glucose above 180 mg/dl- 1 unit for every 40 mg/dl above 180mg/dl -encouraged to continue lifestyle modifications with diet and activity as tolerated have been discussed with the patient --Baqsimi sent to pharmacy on a previous visit- but reports it is too expensive, an does not want to buy- advised patient to avoid hypoglycemias as much as possible, and given she is on pump, hypoglycemia is less likely to be profound to need emergency glucagon # Hypertension -Currently antihypertensive regimen: Amlodipine 5 mg once daily - managed by PCP # Extensive cardiovascular history, including CAD and CVA -On Lipitor 40 mg once daily Lipid panel in 08/2023 revealing total cholesterol 122 mg/dL, LDL 49 mg/dL, triglycerides 62 mg/dL #Obesity Class II with serious comobidity -Lifestyle modifications and diabetic control discussed as above RTC in 3 to 4 months, as she reported she needs follow up severy 3 months due to ADS Labs before next visit Patient talks for a long time on every appointment about multiple things, not necessarily questions or related to her diabetes She was requested to take a 40 min slot to avoid getting late for the patient following her appt - but this is not being done by the PSS team Medical Decision Making: Problems: Moderate: 1+ chronic illnesses with change Data: Unique test result(s) reviewed: 3+ Unique test(s) ordered: 3+ Risk: Moderate: Drug management and Moderate risk from testing/treatment Medical Decision Making Level: 4 - Moderate Eva Nielsen MD Endocrinology Associate Staff [place] [facility] Endocrinology and Metabolism [place] [phone] Diamond Rushing MA 05/23/2024 6:16 PM Signed Eva Nielsen MD 05/23/2024 3:22 PM Addendum Lantus orders placed fro in case of pump failure Labs in August 2024 Allergies As of Date: 05/23/2024 Noted Allergy Reaction AMITRIPTYLINE 11/09/2012 14 - Other: See Comments Comments: Confusion, falls CYMBALTA (DULOXETINE) 06/07/2015 16 - Unknown DOXYCYCLINE 06/11/2011 8 - GI Upset Comments: headache EPHEDRINE 01/10/2005 14 - Other: See Comments Comments: tachycardia, but pt. states she still uses nose spray IODINE 07/29/2006 9 - Itching Comments: itching after prolonged use ISOLONE FORTE 04/06/2023 7 - Swelling LEVAQUIN (LEVOFLOXACIN) 05/26/2012 14 - Other: See Comments Comments: Achilles tendon problem LYRICA (PREGABALIN) 05/26/2012 14 - Other: See Comments Comments: Dizziness at 225mg twice daily OXYCODONE 01/21/2021 1 - Mental Status Change PERCOCET (OXYCODONE-ACETAMINOPHEN)05/29/2010 16 - Unknown SULFA (SULFONAMIDE ANTIBIOTICS) 01/10/2005 4 - Hives Comments: blisters AGGRENOX (ASPIRIN-DIPYRIDAMOLE) 12/18/2008 14 - Other: See Comments Comments: MIGRAINES AND VOMITING CEPHALEXIN (BULK) 05/12/2008 8 - GI Upset DURICEF (CEFADROXIL) 01/10/2005 4 - Hives NORTRIPTYLINE 02/11/2013 14 - Other: See Comments Comments: vertigo Date Reviewed: 05/23/2024 Reviewed by: Magalys Mera RN - Fully Assessed Reason for Visit: Type 1 Diabetes [Other] Primary Visit Diagnosis: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 #:[id number] ALBUMIN/CREATININE RATIO, URINE [SQUACR] Order #: [id number] FUTURE LIPID PANEL BASIC [SQLIPB] Order #: [id number] FUTURE THYROID STIMULATING HORMONE [SQTSH] Order #: [id number] FUTURE COMPREHENSIVE METABOLIC PANEL [SQCMP] Order #: [id number] FUTURE HEMOGLOBIN A1C [CPEUL5D] Order #: [id number] FUTURE insulin glargine (LANTUS SOLOSTAR U-100 INSULIN) 100 unit/mL (3 mL)Take 51 units once a day when in case of pump failureDisp: 6 mLRfl: 0 Prescriptions as of 05/23/2024 - insulin glargine (LANTUS SOLOSTAR U-100 INSULIN) 100 unit/mL (3 mL) Take 51 units once a day when in case of pump failure - zolpidem (AMBIEN) 10 mg Take 1 tablet by mouth at bedtime as needed (insomnia) for up to 90 days. Patient should start on June 06, 2024. - pramipexole (MIRAPEX) 1 mg tablet Take 2 tablets by mouth daily at bedtime. - hydrOXYchloroQUINE (PLAQUENIL) 200 mg tablet Take 1.5 tablets by mouth once daily. - famotidine (PEPCID) 20 mg tablet Take 1 tablet by mouth two times a day. - guaiFENesin (MUCINEX) 600 mg 12 hr tablet Take 1 tablet by mouth two times a day. - Infusion Set for Insulin Pump (MEDTRONIC EXT INFUSION SET 23) iset 1 Each one time a week. - amLODIPine (NORVASC) 5 mg tablet Take 1 tablet by mouth once daily. - benzonatate (TESSALON PERLES) 100 mg capsule Take 1 capsule by mouth three times a day as needed for cough. - nystatin (MYCOSTATIN) powder Apply 1 application to affected area three times a day. - clopidogrel (PLAVIX) 75 mg tablet Take 1 tablet by mouth once daily. - atorvastatin (LIPITOR) 40 mg tablet Take 1 tablet by mouth once daily. - neomycin 500 mg tablet Take 1 tablet by mouth every 12 hours. - metoclopramide HCl (REGLAN) 5 mg tablet Take 1 tablet by mouth every 6 hours for 30 days; administer 30 minutes before a meal. - Insulin Syringe-Needle U-100 (BD INSULIN SYRINGE ULTRA-FINE) 1 mL 31 gauge x 5/16 Use 4 syringes daily if insulin pump fails - blood sugar diagnostic (ACCU-CHEK GUIDE TEST STRIPS) test strip Use with blood glucose test upto four times daily - insulin lispro (HUMALOG U-100 INSULIN) 100 unit/mL injection as directed in Insulin pump up to 110 units daily. Dx E10.65 - losartan (COZAAR) 100 mg tablet Take 1 tablet by mouth once daily. - diclofenac sodium (VOLTAREN ARTHRITIS PAIN TOPICAL) Apply 2 g to affected area as needed (pain). - lidocain-me.mxhgllz-tknp-kbaqx 0.5-20-0.035-5 % ptmd Apply 1 Each to affected area as needed. - traMADol (ULTRAM) 50 mg tablet Take 50 mg by mouth every 6 hours as needed for pain. - albuterol HFA (PROVENTIL HFA, VENTOLIN HFA) 90 mcg/actuation inhaler Inhale 2 Puffs as instructed every 4 hours as needed for wheezing/shortness of breath. - WALKER ROLLATOR SEAT WITH 6 WHEELS - RED For ambulation - nitroglycerin (NITROLINGUAL) 400 mcg/spray spray one every 5 minutes x3 as needed - Bacillus coagulans/inulin (PROBIOTIC WITH PREBIOTIC ORAL) Take 1 capsule by mouth once daily. - aspirin 81 mg chewable tablet Take 1 tablet by mouth once daily. - Cholecalciferol, Vitamin D3, 125 mcg (5,000 unit) cap Take 1 capsule by mouth once daily. - Biotin 1 mg tab Take 1 tablet by mouth once daily. - multivitamin tablet Take 1 tablet by mouth once daily. - acetaminophen (TYLENOL 8 HOUR) 650 mg CR tablet Take 1 tablet by mouth every 8 hours as needed. Problem List As Of Date 05/23/2024 Noted Resolved Hyperlipidemia [E78.5] Hypertension [I10] Coronary artery disease involving [place]* 09/29/2019 Dizziness and Giddiness [R42] 04/30/2009 Postsurgical Percutaneous Transluminal Coronary* 04/30/2009 Mild intermittent asthma without complication [* 09/29/2019 Other psoriasis [L40.8] 09/29/2019 Disorder of bone and cartilage [M89.9, M94.9] 09/29/2019 ESOPHAGITIS [530.1] Diverticulosis of Colon (without Mention of Hem* 04/30/2009 External Hemorrhoids without Mention of Complic* 04/30/2009 Internal Hemorrhoids without Mention of Complic* 04/30/2009 Allergic Rhinitis, Cause Unspecified [J30.9] 01/13/2005 06/25/2015 Ingrowing Nail [L60.0] 03/20/2005 04/30/2009 Pain in Soft Tissues of Limb [M79.609] 03/20/2005 04/30/2009 CARPAL TUNNEL BILATERRAL [M13.149] 08/08/2005 09/29/2019 Nonspecific Abnormal Results of Liver Function *08/08/2005 04/30/2009 OVERWEIGHT [E66.9] 08/08/2005 04/30/2009 Dermatophytosis of Nail [B35.1] 09/04/2005 04/30/2009 Depression [F32.5] 12/18/2005 Anxiety state [F41.1] 12/18/2005 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] 03/23/2006 04/30/2009 Pain in Joint, Shoulder Region [M25.519] 05/22/2006 04/30/2009 Neck Sprain and Strain [S13.9XXA] 05/22/2006 04/30/2009 Onychia and Paronychia of Toe [L03.039] 08/11/2006 04/30/2009 Cellulitis and Abscess of Foot, except Toes [L0*08/24/2006 04/30/2009 Rheumatoid arthritis (HCC) [M06.9] 12/04/2006 Anemia, unspecified [D64.9] 12/04/2006 09/29/2019 Sleep apnea [G47.30] 03/08/2007 Acute Bronchitis [J20.9] 05/18/2008 04/30/2009 Tenosynovitis of Foot and Ankle [M65.979] 06/29/2008 04/30/2009 Vitamin deficiency [E56.9] 04/23/2009 Routine general medical examination at [facility]*04/30/2009 06/25/2015 Class: Chronic Routine gynecological examination [Z01.419] 04/30/2009 06/25/2015 Class: Chronic Diverticulosis of colon [K57.30] 04/30/2009 Cerebral infarction (HCC) [I63.9] 07/16/2009 Pain in joint, lower leg [M25.569] 01/21/2010 06/25/2015 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] 04/25/2010 Restless legs syndrome (RLS) [G25.81] 06/25/2010 Calcifying tendinitis of shoulder [M75.30] 07/09/2010 Venous insufficiency [I87.2] 09/08/2011 Thoracic or lumbosacral neuritis or radiculitis*03/01/2012 09/29/2019 Abnormality of gait [R26.9] 03/01/2012 06/25/2015 Vertigo [R42] 02/02/2013 06/25/2015 Cervicalgia [M54.2] 08/04/2014 Gait abnormality [R26.9] 08/04/2014 BPPV (benign paroxysmal positional vertigo) [H8*02/11/2015 09/29/2019 Obstructive sleep apnea syndrome [G47.33] 06/08/2015 Mixed hyperlipidemia [E78.2] 06/08/2015 GERD (gastroesophageal reflux disease) [K21.9] 08/09/2015 RLS (restless legs syndrome) [G25.81] 08/09/2015 Insomnia [G47.00] 08/09/2015 Vertigo [R42] 08/12/2015 09/29/2019 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/2015 Coronary artery disease [I25.10] 08/29/2015 Mild nonproliferative diabetic retinopathy of b*12/06/2018 Hypoglycemia unawareness in type 1 diabetes emre*01/18/2019 Other dysphagia [R13.19] 07/18/2019 09/29/2019 DKA (diabetic ketoacidoses) ([facility]) [E11.10] 09/28/2019 10/18/2020 Asthma [J45.909] 09/29/2019 SHERLYN (acute kidney injury) ([facility]) [N17.9] 09/29/2019 09/30/2019 H/O multiple allergies [Z88.9] 06/19/[address] [Z96.41] 07/10/2020 Type 1 diabetes mellitus with mild nonprolifera*10/18/2020 Type 1 diabetes mellitus with diabetic neuropat*10/18/2020 Class 2 severe obesity with serious comorbidity*10/18/2020 Bilateral carotid artery stenosis [I65.23] 05/10/2021 Other instructions from your clinician: Lantus orders placed fro in case of pump failure Labs in August 2024 Prescriptions ordered this encounter Disp Refills Start End LANTUS SOLOSTAR U-100 INSULIN 100 UN* 6 mL 0 05/23/2024 05/23/2024 Cmt: Generic or brand: dispense product preferred by patient/insurance unless FARHANA flag is selected. Sig: Take 51 units once a day when in case of pump failure LANTUS SOLOSTAR U-100 INSULIN 100 UN* 6 mL 0 05/23/2024 Cmt: Generic or brand: dispense product preferred by patient/insurance unless FARHANA flag is selected. Sig: Take 51 units once a day when in case of pump failure Medications Discontinued During This Encounter Prescriptions - insulin glargine (LANTUS SOLOSTAR U-100 INSULIN) 100 unit/mL (3 mL) (Discontinued) Take 51 units once a day when in case of pump failure Disposition: Return in about 4 months (around 09/20/2024). Follow-up and Disposition History for Encounter Date Provider Department Center 05/23/2024 [id number]-MAKMYLUO, SNIGDHA*ASHOK Weber [facility] Encounter Status:Closed by EVA NIELSEN on 05/23/24 PROGRESS Observed: 05/23/2024 2:36 PM Status: COMPLETED Source: [facility] ID: [id number] Author: EVA NIELSEN MD Service: ? Author Type: Physician Type: Progress Notes Filed: 05/23/2024 18:15 Note Text: [facility] Follow up visit Note History of present illness: This is a 78 year old female with history of type 1 diabetes, complicated by mild nonproliferative retinopathy of bilateral retina, Class I obesity, 3 strokes (2009, 2012), Bilateral carotid artery stenosis, CAD, HLD, HTN, SOLE, GERD, RA, Gastroparesis She is accompanied by her today, who is a type II diabetic. She was following Dr. Palm at [facility] in the recent past, last appointment in April 2023. Prior to that, she was following with endocrinology at [facility], last appointment in October 2020 with Princess Lim APRN. [facility] with me was 02/16/2024 Documentation from previous note of previous visit was copied and pasted and has been reviewed and edited as appropriate and is current for today. History in brief, -Initially diagnosed: at the age of 19 years -Circumstances around diagnosis: she had symptoms of hyperglycemia with severe . -Duration of diabetes: -Length of time on oral medications before switching to insulin: -Duration of insulin use: Started pump almost 25 years ago, when she was following with Dr. Mancilla Uses pump on the abdomen, and CGMS on her thigh -Hospitalizations for DKA: when she was on a different pump which was not automated Known complications include: hypertension, retinopathy, peripheral neuropathy and cardiovascular disease (CAD s/p PTCA) , CVA, gastroparesis on gastric emptying study following Dr. Dyer at [facility] Exacerbating factors include: obesity Last NEIL/Retina Eval: May 02, 2024, reports left eye is having blurry vision, right eye is alright Nephropathy -- Yes STEFFANY/ARB Use -- Yes She was following with podiatry, Dr. Zhao Other -- Wheelchair bound due to stroke Current diabetes regimen is as follows: Basal insulin for back up: lantus Glucagon: denies Humalog via Medtronic 780 G pump plus Guardian sensor Basal rate: 00:00= 1.40 0230= 1.40 0600= 1.45 0900=2.60 1930= 2.50 Total basal rate in 24 hours= 51.3 units Bolus: Insulin:carb ratio 00:00= 7.5 Sensitivity 00:00= 40 Blood glucose target= 110 mg/dL 00:00= 90-140 Active insulin time 2 hours Avg daily carbs 113 g +/- 33 Changing pump site every 2 days Changing sensor every 7 days . Symptoms -Polyuria: no -Polydipsia: no -Weight changes: she has lost considerable amount of weight with the help of diet She complains that the pump would not give bolus sometimes despite entering the carbs. She has spoken to [facility] and number of people that they recommended to see, and they told the pump was working okay . Lifestyle -Exercise: no routine exercise due to fall leading to mobility issues -Diet: reports carb consistent diet She has seen Nutrition services at [facility], and reports that it was not very beneficial, she saw dietitian at [facility] who started her on a gastroparesis nutritional plan She has seen endocrine dietitian and diabetic education few times now - but she has not been entering carbs from fruits (she only eats peaches) into the pump Interval history since last visit : I told her in the past twice (including on the most recent visit in 10/2023) that her pump might be malfunctioned and to call G5tronic. When she did she was apparently told that the physician might be mistaken She also reports today that the infusion set is only lasting for 2 days before she received notification to change, she is running out of supplies She had a dietitian visit yesterday and was told by dietitian also that her pump is malfunctioned. She was also told that there might be some issues with her pump by our RN at diabetes education seen in 12/2023 She has also received steroid injections for joint pains in the past and she complains of ongoing pain ROS: As per HPI Past Medical History PAST MEDICAL HISTORY Diagnosis Date Abnormal mammogram, unspecified left breast BPPV (benign paroxysmal positional vertigo) 02/11/2015 BPV (benign positional vertigo) CAD (coronary artery disease) Carotid stenosis CARPAL TUNNEL BILATERRAL 08/08/2005 Coronary artery disease involving [place] coronary artery Dr. Pederson follows regularly; S/P PTCA and stenting at [facility], 2001 Coronary atherosclerosis of unspecified type of vessel, [place] or graft Disorder of bone and cartilage, unspecified Diverticulosis of colon (without mention of hemorrhage) DKA (diabetic ketoacidoses) 09/28/2019 Esophagitis External hemorrhoids without mention of complication Insomnia Internal hemorrhoids without mention of complication Mammographic microcalcification Mild intermittent asthma without complication Adult onset Mild nonproliferative diabetic retinopathy of both eyes ([facility]) 12/06/2018 Other and unspecified hyperlipidemia Other forms of migraine Other psoriasis Postsurgical percutaneous transluminal coronary angioplasty status Rheumatoid arthritis(714.0) RLS (restless legs syndrome) Stroke (cerebrum) ([facility]) x3 Thoracic or lumbosacral neuritis or radiculitis, unspecified 03/01/2012 Type I (juvenile type) diabetes mellitus with neurological manifestations, not stated as 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.61) 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, 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) Unspecified asthma(493.90) Unspecified essential hypertension Unspecified hereditary and idiopathic peripheral neuropathy Past Surgical History PAST SURGICAL HISTORY Procedure Laterality Date BREAST [...] STEREOTACTIC CORE BIOPSY 02/24/08 LEFT - benign Family History FAMILY HISTORY Problem Relation Age of Onset Cancer Mother breast (diagnosed mid 50's) Heart Mother valvular other (Other) Father leukemia (dx'd age 55) Asthma Paternal Grandmother Diabetes Paternal Grandmother Colon Cancer Other none other (autoimmune def) Daughter Social History Social History Tobacco Use Smoking status: Never Smokeless tobacco: Never Vaping Use Vaping status: Never Used Substance Use Topics Alcohol use: No Drug use: No Allergies ALLERGIES Allergen Reactions Amitriptyline Other: See Comments Confusion, falls Cymbalta [Duloxetin* Unknown Doxycycline GI Upset headache Ephedrine Other: See Comments tachycardia, but pt. states she still uses nose spray Iodine Itching itching after prolonged use Isolone Forte Swelling Levaquin [Levofloxa* Other: See Comments Achilles tendon problem Lyrica [Pregabalin] Other: See Comments Dizziness at 225mg twice daily Oxycodone Mental Status Change Percocet [Oxycodone* Unknown Sulfa (Sulfonamide * Hives blisters Aggrenox [Aspirin-D* Other: See Comments MIGRAINES AND VOMITING Cephalexin (Bulk) GI Upset Duricef [Cefadroxil] Hives Nortriptyline Other: See Comments vertigo Current Medications Current Outpatient Medications Medication Sig Dispense Refill [START ON 06/06/2024] zolpidem (AMBIEN) 10 mg Take 1 tablet by mouth at bedtime as needed (insomnia) for up to 90 days. Patient should start on June 06, 2024. 90 tablet 0 pramipexole (MIRAPEX) 1 mg tablet Take 2 tablets by mouth daily at bedtime. 180 tablet 1 hydrOXYchloroQUINE (PLAQUENIL) 200 mg tablet Take 1.5 tablets by mouth once daily. 135 tablet 0 famotidine (PEPCID) 20 mg tablet Take 1 tablet by mouth two times a day. 30 tablet 2 guaiFENesin (MUCINEX) 600 mg 12 hr tablet Take 1 tablet by mouth two times a day. 30 tablet 1 Infusion Set for Insulin Pump (TreeveoTRONIC EXT INFUSION SET 23) iset 1 Each one time a week. 20 Each 2 amLODIPine (NORVASC) 5 mg tablet Take 1 tablet by mouth once daily. 90 tablet 3 benzonatate (TESSALON PERLES) 100 mg capsule Take 1 capsule by mouth three times a day as needed for cough. 30 capsule 0 nystatin (MYCOSTATIN) powder Apply 1 application to affected area three times a day. 30 g 3 clopidogrel (PLAVIX) 75 mg tablet Take 1 tablet by mouth once daily. 90 tablet 3 atorvastatin (LIPITOR) 40 mg tablet Take 1 tablet by mouth once daily. 90 tablet 3 metoclopramide HCl (REGLAN) 5 mg tablet Take 1 tablet by mouth every 6 hours for 30 days; administer 30 minutes before a meal. Insulin Syringe-Needle U-100 (BD INSULIN SYRINGE ULTRA-FINE) 1 mL 31 gauge x 5/16 Use 4 syringes daily if insulin pump fails 100 Each 1 blood sugar diagnostic (ACCU-CHEK GUIDE TEST STRIPS) test strip Use with blood glucose test upto four times daily 200 Each 1 insulin lispro (HUMALOG U-100 INSULIN) 100 unit/mL injection as directed in Insulin pump up to 110 units daily. Dx E10.65 10 mL 3 losartan (COZAAR) 100 mg tablet Take 1 tablet by mouth once daily. 90 tablet 1 diclofenac sodium (VOLTAREN ARTHRITIS PAIN TOPICAL) Apply 2 g to affected area as needed (pain). lidocain-me.lppisth-zwta-xixnl 0.5-20-0.035-5 % ptmd Apply 1 Each to affected area as needed. traMADol (ULTRAM) 50 mg tablet Take 50 mg by mouth every 6 hours as needed for pain. albuterol HFA (PROVENTIL HFA, VENTOLIN HFA) 90 mcg/actuation inhaler Inhale 2 Puffs as instructed every 4 hours as needed for wheezing/shortness of breath. WALKER ROLLATOR SEAT WITH 6 WHEELS - RED For ambulation 1 Each 0 nitroglycerin (NITROLINGUAL) 400 mcg/spray spray one every 5 minutes x3 as needed (Patient taking differently: Dissolve 1 [place] under the tongue every 5 minutes as needed for chest pain.) 4.9 g 3 Bacillus coagulans/inulin (PROBIOTIC WITH PREBIOTIC ORAL) Take 1 capsule by mouth once daily. aspirin 81 mg chewable tablet Take 1 tablet by mouth once daily. 30 tablet 11 Cholecalciferol, Vitamin D3, 125 mcg (5,000 unit) cap Take 1 capsule by mouth once daily. 90 capsule 3 Biotin 1 mg tab Take 1 tablet by mouth once daily. 30 tablet 0 multivitamin tablet Take 1 tablet by mouth once daily. 0 acetaminophen (TYLENOL 8 HOUR) 650 mg CR tablet Take 1 tablet by mouth every 8 hours as needed. neomycin 500 mg tablet Take 1 tablet by mouth every 12 hours. (Patient not taking: Reported on 11/25/2023) No current facility-administered medications for this visit. Labs Hemoglobin A1C (POCT) Date Value Ref Range Status 02/16/2024 6.8 (A) 4.3 - 5.6 % Final Comment: Location:[facility], [address], [place], [address] Point of care (POC) Hemoglobin A1c (HGBA1C) testing is intended to assess glucose control and provide a management tool for patients known to have diabetes and their healthcare providers. Target HGBA1C levels may depend on specific clinical circumstances. POC HGBA1C is not intended for use as a diagnostic or screening test; laboratory-based testing should be used for diagnostic purposes. The following information is supplemental and may not be applicable to specific diabetes management situations: The POC device gold leaf layer provides a normal range of 4.2% to 6.5% for the HGBA1C POC test. However, the [place] [employer] guidelines indicate that patients with HGBA1C in the range of 5.7% to 6.4% are at increased risk for development of diabetes and that intervention by lifestyle modification may be beneficial. A HGBA1C level greater than or equal to 6.5% is considered diagnostic of diabetes, pending confirmatory testing. Use of HGBA1C testing to evaluate glucose control may not be appropriate for patients with hemoglobin variants or other conditions (e.g. anemia) that alter red blood cell lifespan. Albumin/Creat Ratio Date Value Ref Range Status 09/01/2023 18 <30 mg/g Final Comment: Adult Male and Female Nephrotic Criteria: <30 mg/g is considered normal to mildly increased 30-300 mg/g is considered moderately increased >300 mg/g is considered severely increased KDIGO. (2013). KDIGO 2012 Clinical Practice Guideline for the Evaluation and Management of Chronic Kidney Disease. Official Journal of the International Society of Nephrology, 3(1), 1-150. Cholesterol, Total Date Value Ref Range Status 09/01/2023 122 <200 mg/dL Final Comment: <200 mg/dL, Desirable 200-239 mg/dL, Borderline high >239 mg/dL, High HDL Cholesterol Date Value Ref Range Status 09/01/2023 61 >39 mg/dL Final Comment: 40-59 mg/dL, Acceptable >59 mg/dL, High: Negative risk factor for coronary heart disease <40 mg/dL, Low: Positive risk factor for coronary heart disease LDL Cholesterol Date Value Ref Range Status 09/01/2023 49 <100 mg/dL Final Comment: <100 mg/dL, Optimal 100-129 mg/dL, Near optimal/above optimal 130-159 mg/dL, Borderline high 160-189 mg/dL, High >189 mg/dL, Very high Secondary prevention optimal LDL Cholesterol levels are recommended to be < 70 mg/dL Triglyceride Date Value Ref Range Status 09/01/2023 62 <150 mg/dL Final Comment: <150 mg/dL, Normal 150-199 mg/dL, Borderline high 200-499 mg/dL, High >499 mg/dL, Very high Hba1c 6.6% POC Vitals: 05/23/24 1440 BP: 128/68 BP Site: Right Arm BP Position: Sitting BP Cuff Size: Regular Adult Pulse: 69 Resp: 21 SpO2: 98% Weight: 68 kg (150 lb) Height: 154.9 cm (5' 1) Physical Exam GENERAL: Well nourished, obese, well hydrated, in no distress and oriented x 3. She is in wheel chair today EYES: no thyroid eye signs, EOMI NECK: , no tenderness and adenopathy THYROID: Non-tender to palpable, no evidence of goiter, no nodules palpable LUNGS: Unlabored on room air HEART: regular rate and rhythm Abdomen: pump sites without lipodystrophy NEURO: normal strength, no tremor SKIN: facial hair noted OTHER: Acanthosis None Assessment and Plan This is a 78-year-old female with past medical history of type 1 diabetes mellitus on Medtronic 780G pump with guardian sensor, retinopathy, peripheral neuropathy and cardiovascular disease (CAD s/p PTCA) , hypertension, CVA, gastroparesis presenting for evaluation and treatment. She also has a history of rheumatoid arthritis Type 1 diabetes with NPDR, neuropathy, gastroparesis on 780 G medtronic insulin pump: -A1c 6.6% today, improved from 6.8% in 01/2024 and 7.8% in 08/2023, after she started following instructions for insulin dosing as instructed regarding gastroparesis -eGFR 91 in 08/2023 Interpretation of sensor data: no lows noted, she is running high post meal with most meals (likely due to taking half dose under the background of gastroparesis), but the levels are appropriately coming down again Plan: - No changes made to pump settings today - her sugars are improved and has no lows either, with impressive Hba1c I discussed about giving insulin shots if pump malfunctions- discussed basal insulin, and bolus as well as correction scale to be taken in pump failure. I will send a prescription for lantus to be taken in case of pump failure. She is also advised about checking ketones at home, mainly useful when she is sick, jayesh after pump failure, and indicates DKA if ketones are high and rising - she is advised to go to the nearest ED in that case She has seen dietitian at [facility] and was given gastroparesis associated dietary changes Seen dietitian here, and diabetes education as well - she declined refills for Novolog insulin or infusion sets, today Again advised to calculate the carbs before each meal and take adequate insulin dose accordingly- can take half dose at the start of meal and the rest after completing the meal, especially if she has good appetite and intends to eat the whole meal. If appetite is low, advised to eat first and then take insulin according to the amount of carbs consumed. Discussed again to take correction dose of insulin for Blood glucose above 180 mg/dl- 1 unit for every 40 mg/dl above 180mg/dl -encouraged to continue lifestyle modifications with diet and activity as tolerated have been discussed with the patient --Baqsimi sent to pharmacy on a previous visit- but reports it is too expensive, an does not want to buy- advised patient to avoid hypoglycemias as much as possible, and given she is on pump, hypoglycemia is less likely to be profound to need emergency glucagon # Hypertension -Currently antihypertensive regimen: Amlodipine 5 mg once daily - managed by PCP # Extensive cardiovascular history, including CAD and CVA -On Lipitor 40 mg once daily Lipid panel in 08/2023 revealing total cholesterol 122 mg/dL, LDL 49 mg/dL, triglycerides 62 mg/dL #Obesity Class II with serious comobidity -Lifestyle modifications and diabetic control discussed as above RTC in 3 to 4 months, as she reported she needs follow up severy 3 months due to ADS Labs before next visit Patient talks for a long time on every appointment about multiple things, not necessarily questions or related to her diabetes She was requested to take a 40 min slot to avoid getting late for the patient following her appt - but this is not being done by the PSS team Medical Decision Making: Problems: Moderate: 1+ chronic illnesses with change Data: Unique test result(s) reviewed: 3+ Unique test(s) ordered: 3+ Risk: Moderate: Drug management and Moderate risk from testing/treatment Medical Decision Making Level: 4 - Moderate Eva Nielsen MD Endocrinology Associate Staff [facility] Endocrinology and Metabolism [place] [phone] CNCNPATED Observed: 05/16/2024 1:00 PM Status: COMPLETED Source: [facility] Education (ENDIMT) MCKAYLA RUSSO ([id number]) 1945 F Date Time Provider Department 05/16/24 1:00 PM AKIL SHARMA Reason for Visit: Medical Nutrition Therapy [1998] Cmt: Type 1 Diabetes Primary Visit Diagnosis: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 states she still uses nose spray IODINE 07/29/2006 9 - Itching Comments: itching after prolonged use ISOLONE FORTE 04/06/2023 7 - Swelling LEVAQUIN (LEVOFLOXACIN) 05/26/2012 14 - Other: See Comments Comments: Achilles tendon problem LYRICA (PREGABALIN) 05/26/2012 14 - Other: See Comments Comments: Dizziness at 225mg twice daily OXYCODONE 01/21/2021 1 - Mental Status Change PERCOCET (OXYCODONE-ACETAMINOPHEN)05/29/2010 16 - Unknown SULFA (SULFONAMIDE ANTIBIOTICS) 01/10/2005 4 - Hives Comments: blisters AGGRENOX (ASPIRIN-DIPYRIDAMOLE) 12/18/2008 14 - Other: See Comments Comments: MIGRAINES AND VOMITING CEPHALEXIN (BULK) 05/12/2008 8 - GI Upset DURICEF (CEFADROXIL) 01/10/2005 4 - Hives NORTRIPTYLINE 02/11/2013 14 - Other: See Comments Comments: vertigo Date Reviewed: 02/16/2024 Reviewed by: Magalys Mera, LUMA - Fully Assessed Prescriptions as of 05/16/2024 - zolpidem (AMBIEN) 10 mg Take 1 tablet by mouth at bedtime as needed (insomnia) for up to 90 days. Patient should start on June 06, 2024. - pramipexole (MIRAPEX) 1 mg tablet Take 2 tablets by mouth daily at bedtime. - hydrOXYchloroQUINE (PLAQUENIL) 200 mg tablet Take 1.5 tablets by mouth once daily. - famotidine (PEPCID) 20 mg tablet Take 1 tablet by mouth two times a day. - guaiFENesin (MUCINEX) 600 mg 12 hr tablet Take 1 tablet by mouth two times a day. - Infusion Set for Insulin Pump (MEDTRONIC EXT INFUSION SET 23) iset 1 Each one time a week. - amLODIPine (NORVASC) 5 mg tablet Take 1 tablet by mouth once daily. - benzonatate (TESSALON PERLES) 100 mg capsule Take 1 capsule by mouth three times a day as needed for cough. - nystatin (MYCOSTATIN) powder Apply 1 application to affected area three times a day. - clopidogrel (PLAVIX) 75 mg tablet Take 1 tablet by mouth once daily. - atorvastatin (LIPITOR) 40 mg tablet Take 1 tablet by mouth once daily. - neomycin 500 mg tablet Take 1 tablet by mouth every 12 hours. - metoclopramide HCl (REGLAN) 5 mg tablet Take 1 tablet by mouth every 6 hours for 30 days; administer 30 minutes before a meal. - Insulin Syringe-Needle U-100 (BD INSULIN SYRINGE ULTRA-FINE) 1 mL 31 gauge x 5/16 Use 4 syringes daily if insulin pump fails - blood sugar diagnostic (ACCU-CHEK GUIDE TEST STRIPS) test strip Use with blood glucose test upto four times daily - insulin lispro (HUMALOG U-100 INSULIN) 100 unit/mL injection as directed in Insulin pump up to 110 units daily. Dx E10.65 - losartan (COZAAR) 100 mg tablet Take 1 tablet by mouth once daily. - diclofenac sodium (VOLTAREN ARTHRITIS PAIN TOPICAL) Apply 2 g to affected area as needed (pain). - lidocain-me.vistndf-jrgm-ssnaj 0.5-20-0.035-5 % ptmd Apply 1 Each to affected area as needed. - traMADol (ULTRAM) 50 mg tablet Take 50 mg by mouth every 6 hours as needed for pain. - albuterol HFA (PROVENTIL HFA, VENTOLIN HFA) 90 mcg/actuation inhaler Inhale 2 Puffs as instructed every 4 hours as needed for wheezing/shortness of breath. - WALKER ROLLATOR SEAT WITH 6 WHEELS - RED For ambulation - nitroglycerin (NITROLINGUAL) 400 mcg/spray spray one every 5 minutes x3 as needed - Bacillus coagulans/inulin (PROBIOTIC WITH PREBIOTIC ORAL) Take 1 capsule by mouth once daily. - aspirin 81 mg chewable tablet Take 1 tablet by mouth once daily. - Cholecalciferol, Vitamin D3, 125 mcg (5,000 unit) cap Take 1 capsule by mouth once daily. - Biotin 1 mg tab Take 1 tablet by mouth once daily. - multivitamin tablet Take 1 tablet by mouth once daily. - acetaminophen (TYLENOL 8 HOUR) 650 mg CR tablet Take 1 tablet by mouth every 8 hours as needed. Encounter Status:Closed by AKIL SHARMA on 05/16/24 PROGRESS Observed: 05/16/2024 1:00 PM Status: COMPLETED Source: [facility] HNO ID: [id number] Author: AKIL SHARMA RD Service: ? Author Type: Registered Dietitian Type: Progress Notes Filed: 05/16/2024 13:55 Note Text: [facility] Medical Nutrition Therapy Follow up Visit Type: In-Person (Face to Face): Nutritional Visit: MNT/DIABETES Medical Diagnosis: Diabetes NUTRITION DIAGNOISIS STATEMENT: Altered GI function related changes in gastric motility (gastroparesis) as evidenced by pt s/s of gastroparesis per gastric emptying study . From Last Encounter Date: 02/15/24 NUTRITION REASSESSMENT: DIET HISTORY: (Typically eating 5 times per day; aims for 9 g total fat at meals, consuming 90-100 grams protein per day, variable CHO intake at meals ranging 15-45g CHO) Breakfast (5:30A): Eggs w/ toast and guacamole, OR Snack (10A): [place] cereal bar (26 g CHO, 9 g fat, 14 g protein) Lunch: 1 slice of sour dough bread w/ mustard w/ 1 cup of milk and may have cottage cheese Snack: MRE Protein shake Dinner:Chicken w/ sweet potato fries, OR 2 Taco (small shell topped w/ ground beef, light sour cream ), OR 2 pieces Telugu toast w/ SF syrup Beverages/Fluids: SF Prime water drum handler (3 bottles/day, 16.9 ounce), Water (minimal), Milk (1 cup/day), [place] Juice (4 ounces- regular) Diet History: 02/15/24 Breakfast (4A): poached eggs w/ guacamole Snack: Protein R Ease (40g) drinks 1/2 one day and 1/2 next day Lunch (12P): Ham or [place] sandwich (1 slice of bread) Snack: [place] protein bar, OR crackers and cream cheese Dinner (5-6:30P): Spaghetti and Ham, OR Spaghetti noodles w/ parmesan cheese and lemon w/ dutch yogurt, OR Stuffed Peppers w/ [place] and vegetables, OR [place] Burgers, OR Chicken and noodles w/ vegetables (casserole) Snack: occasional, [place] lemon Yogurt Fluids: Prime Hydration (SF), Water (16 ounces) Dining/eating out? No May sip water at meals but avoids beverages at meals. Will wait 1 hour after eating before drinking and sits up before lying down. Last 3 Encounter Wt Readings: Date: Wt: 02/16/2024 72.1 kg (159 lb) 01/25/2024 72.6 kg (160 lb) 12/07/2023 75.3 kg (166 lb) BMI: 30.04 kg/m2 Patient / Provider Comments: - Using Medtronic 780 G pump plus Guardian sensor. - Began using insulin pump 25 years ago. - Hx of gastroparesis. - Current DM medications: Humalog - Hypoglycemic events: has had 2 low BG events recently of 60 mg/dl, one occurred after lunch though pt notes consumed lower amount of CHO than usual, second low BG occurred d/t going too long w/out eating- txs low BG w/ juice, or [place] protein bar - Hyperglycemic events: every night at supper time, relates will have 4 units of insulin on board and then BG will drop to be WNL. - BM habits: - Frequency: daily, formed bowel movements, - Taking mineral oil every night to assist w/ bowel regulation. - Typically consuming 90-100 grams of protein per day. Notes meals typically have ~9 g total fat. - Monitoring BG via Guardian Sensor- only able to pull one day data -- TIR (70-180 mg/dl): 75-90%, today TIR 83% - Activity 500 steps per day. Labs: Lab Results Component Value Date HBA1C 6.8 02/16/2024 HBA1C 7.8 09/01/2023 HBA1C 6.7 12/29/2022 HBA1C 7.1 06/09/2022 HBA1C 7.5 05/07/2021 HBA1C 7.3 10/18/2020 HBA1C 7.5 05/01/2020 HBA1C 8.4 09/24/2018 Cholesterol, Total Date Value Ref Range Status 09/01/2023 122 <200 mg/dL Final Comment: <200 mg/dL, Desirable 200-239 mg/dL, Borderline high >239 mg/dL, High HDL Cholesterol Date Value Ref Range Status 09/01/2023 61 >39 mg/dL Final Comment: 40-59 mg/dL, Acceptable >59 mg/dL, High: Negative risk factor for coronary heart disease <40 mg/dL, Low: Positive risk factor for coronary heart disease LDL Cholesterol Date Value Ref Range Status 09/01/2023 49 <100 mg/dL Final Comment: <100 mg/dL, Optimal 100-129 mg/dL, Near optimal/above optimal 130-159 mg/dL, Borderline high 160-189 mg/dL, High >189 mg/dL, Very high Secondary prevention optimal LDL Cholesterol levels are recommended to be < 70 mg/dL Triglyceride Date Value Ref Range Status 09/01/2023 62 <150 mg/dL Final Comment: <150 mg/dL, Normal 150-199 mg/dL, Borderline high 200-499 mg/dL, High >499 mg/dL, Very high Glucose (mg/dL) Date Value 09/01/2023 216 05/01/2020 141 Potassium (mmol/L) Date Value 09/01/2023 3.8 05/01/2020 3.9 Sodium (mmol/L) Date Value 09/01/2023 143 05/01/2020 139 Chloride (mmol/L) Date Value 09/01/2023 108 05/01/2020 104 CO2 (mmol/L) Date Value 09/01/2023 24 05/01/2020 26 Creatinine (mg/dL) Date Value 01/25/2024 0.68 03/01/2021 0.67 BUN (mg/dL) Date Value 09/01/2023 16 05/01/2020 18 Anion Gap (mmol/L) Date Value 09/01/2023 11 05/01/2020 9 Calcium (mg/dL) Date Value 05/01/2020 9.6 Calcium, Total (mg/dL) Date Value 09/01/2023 9.4 Protein, Total (g/dL) Date Value 09/01/2023 6.7 05/01/2020 6.9 Albumin (g/dL) Date Value 01/25/2024 3.7 05/01/2020 3.8 Bilirubin, Total (mg/dL) Date Value 09/01/2023 0.6 05/01/2020 0.3 Alkaline Phosphatase (U/L) Date Value 09/01/2023 95 05/01/2020 118 AST (U/L) Date Value 01/25/2024 32 03/01/2021 29 ALT (U/L) Date Value 01/25/2024 25 03/01/2021 24 GOAL Review from Last Encounter Date: 02/15/24. Choose foods from foods recommended gastroparesis food list. RESPONSE: met BARRIERS/FACTORS IMPACTING COMPLETION OF GOALS: none NUTRITION INTERVENTION: - Eat 5 small meals per day. - Space meals a part by at least 3 hours, aim to not go longer than 5 hours without eating. - Aim to consume 30 g CHO at each meal. - Aim to consume 2-3 ounce protein at each meal. - Aim to consume 10-15 g total fat at each meal. - Discussed SF water flavor options. Discussed prime electrolyte beverage drum handler- recommend beverages be sodium free, discussed when to use electrolyte beverages. - Encouraged continue to choose low fiber foods at meals- no raw fruit/vegetables, removing skin of fruit/vegetable, cooking until fork tender, consider choosing canned fruit or applesauce. Discussed if using fruit (I.e. blueberries) in recipes, okay if fruit is cooked. - Reinforced always chew foods thoroughly before swallowing. - Answered pt questions regarding smoothies, discussed protein based smoothie options. New Goal: Always pair CHO with protein and/or healthy fat (ex. Peanut butter) Adherence Potential to New Goals/Care Plan: Good. REVISION OR ADDITION OF NUTRITION DIAGNOSIS STATEMENT: Has Not Changed EDUCATIONAL MATERIALS: NovoNordisk Planning Healthy Meals Plan of Care Pt to follow-up as desired. No ref. provider found Consult Billing Type: Re-assess/15 minutes, 3 increment(s), 45 minutes Start Time: 12:50 End Time: 13:45 HUSSEIN Hernandez Observed: 05/11/2024 12:00 AM Status: COMPLETED Source: [facility] Telephone (INTMWS) MCKAYLA RUSSO ([id number]) 1945 F Date Time Provider Department 05/11/24 SULTANA HARVEY During your visit today, we recorded the following information about you: Mirtha Ramos RN 05/11/2024 2:25 PM Signed Patient calls to let provider know that she was seen by Dr. Umaña with [facility] and had allergy testing completed. Patient reports that no allergies were found. Patient reports that Dr. Umaña is requesting provider order a CT scan of patient's sinuses and then forward those results to him. Patient requests call back at [phone] with provider response. LUMA Corea Joy, APRN.[facility] [facility] 05/13/2024 12:52 PM Signed Please call the ENT office and find out why they are not ordering this study themselves and having the patient relaying messages for them. If they for some reason are unable to order there own studies, they need to fax their recommendations to the office so I can review them. Thank you Sultana Harvey APRN.Glenny Mcdonald LPN 05/13/2024 1:33 PM Signed Called ENT Dr Umaña office, spoke to Berkley Gooden stated doctor is out today and will forward message. Regarding CT order. ENT # [phone] Glenny Sung LPN May 13, 2024 1:33 PM Allergies As of Date: 05/11/2024 Noted Allergy Reaction AMITRIPTYLINE 11/09/2012 14 - Other: See Comments Comments: Confusion, falls CYMBALTA (DULOXETINE) 06/07/2015 16 - Unknown DOXYCYCLINE 06/11/2011 8 - GI Upset Comments: headache EPHEDRINE 01/10/2005 14 - Other: See Comments Comments: tachycardia, but pt. states she still uses nose spray IODINE 07/29/2006 9 - Itching Comments: itching after prolonged use ISOLONE FORTE 04/06/2023 7 - Swelling LEVAQUIN (LEVOFLOXACIN) 05/26/2012 14 - Other: See Comments Comments: Achilles tendon problem LYRICA (PREGABALIN) 05/26/2012 14 - Other: See Comments Comments: Dizziness at 225mg twice daily OXYCODONE 01/21/2021 1 - Mental Status Change PERCOCET (OXYCODONE-ACETAMINOPHEN)05/29/2010 16 - Unknown SULFA (SULFONAMIDE ANTIBIOTICS) 01/10/2005 4 - Hives Comments: blisters AGGRENOX (ASPIRIN-DIPYRIDAMOLE) 12/18/2008 14 - Other: See Comments Comments: MIGRAINES AND VOMITING CEPHALEXIN (BULK) 05/12/2008 8 - GI Upset DURICEF (CEFADROXIL) 01/10/2005 4 - Hives NORTRIPTYLINE 02/11/2013 14 - Other: See Comments Comments: vertigo Date Reviewed: 02/16/2024 Reviewed by: Magalys Mera, RN - Fully Assessed Reason for Visit: Patient Update [1234] Prescriptions as of 05/16/2024 - zolpidem (AMBIEN) 10 mg Take 1 tablet by mouth at bedtime as needed (insomnia) for up to 90 days. Patient should start on June 06, 2024. - pramipexole (MIRAPEX) 1 mg tablet Take 2 tablets by mouth daily at bedtime. - hydrOXYchloroQUINE (PLAQUENIL) 200 mg tablet Take 1.5 tablets by mouth once daily. - famotidine (PEPCID) 20 mg tablet Take 1 tablet by mouth two times a day. - guaiFENesin (MUCINEX) 600 mg 12 hr tablet Take 1 tablet by mouth two times a day. - Infusion Set for Insulin Pump (MEDTRONIC EXT INFUSION SET 23) iset 1 Each one time a week. - amLODIPine (NORVASC) 5 mg tablet Take 1 tablet by mouth once daily. - benzonatate (TESSALON PERLES) 100 mg capsule Take 1 capsule by mouth three times a day as needed for cough. - nystatin (MYCOSTATIN) powder Apply 1 application to affected area three times a day. - clopidogrel (PLAVIX) 75 mg tablet Take 1 tablet by mouth once daily. - atorvastatin (LIPITOR) 40 mg tablet Take 1 tablet by mouth once daily. - neomycin 500 mg tablet Take 1 tablet by mouth every 12 hours. - metoclopramide HCl (REGLAN) 5 mg tablet Take 1 tablet by mouth every 6 hours for 30 days; administer 30 minutes before a meal. - Insulin Syringe-Needle U-100 (BD INSULIN SYRINGE ULTRA-FINE) 1 mL 31 gauge x 5/16 Use 4 syringes daily if insulin pump fails - blood sugar diagnostic (ACCU-CHEK GUIDE TEST STRIPS) test strip Use with blood glucose test upto four times daily - insulin lispro (HUMALOG U-100 INSULIN) 100 unit/mL injection as directed in Insulin pump up to 110 units daily. Dx E10.65 - losartan (COZAAR) 100 mg tablet Take 1 tablet by mouth once daily. - diclofenac sodium (VOLTAREN ARTHRITIS PAIN TOPICAL) Apply 2 g to affected area as needed (pain). - lidocain-me.nkkecju-efkc-mluqr 0.5-20-0.035-5 % ptmd Apply 1 Each to affected area as needed. - traMADol (ULTRAM) 50 mg tablet Take 50 mg by mouth every 6 hours as needed for pain. - albuterol HFA (PROVENTIL HFA, VENTOLIN HFA) 90 mcg/actuation inhaler Inhale 2 Puffs as instructed every 4 hours as needed for wheezing/shortness of breath. - WALKER ROLLATOR SEAT WITH 6 WHEELS - RED For ambulation - nitroglycerin (NITROLINGUAL) 400 mcg/spray spray one every 5 minutes x3 as needed - Bacillus coagulans/inulin (PROBIOTIC WITH PREBIOTIC ORAL) Take 1 capsule by mouth once daily. - aspirin 81 mg chewable tablet Take 1 tablet by mouth once daily. - Cholecalciferol, Vitamin D3, 125 mcg (5,000 unit) cap Take 1 capsule by mouth once daily. - Biotin 1 mg tab Take 1 tablet by mouth once daily. - multivitamin tablet Take 1 tablet by mouth once daily. - acetaminophen (TYLENOL 8 HOUR) 650 mg CR tablet Take 1 tablet by mouth every 8 hours as needed. Problem List As Of Date 05/11/2024 Noted Resolved Hyperlipidemia [E78.5] Hypertension [I10] Coronary artery disease involving [place]* 09/29/2019 Dizziness and Giddiness [R42] 04/30/2009 Postsurgical Percutaneous Transluminal Coronary* 04/30/2009 Mild intermittent asthma without complication [* 09/29/2019 Other psoriasis [L40.8] 09/29/2019 Disorder of bone and cartilage [M89.9, M94.9] 09/29/2019 ESOPHAGITIS [530.1] Diverticulosis of Colon (without Mention of Hem* 04/30/2009 External Hemorrhoids without Mention of Complic* 04/30/2009 Internal Hemorrhoids without Mention of Complic* 04/30/2009 Allergic Rhinitis, Cause Unspecified [J30.9] 01/13/2005 06/25/2015 Ingrowing Nail [L60.0] 03/20/2005 04/30/2009 Pain in Soft Tissues of Limb [M79.609] 03/20/2005 04/30/2009 CARPAL TUNNEL BILATERRAL [M13.149] 08/08/2005 09/29/2019 Nonspecific Abnormal Results of Liver Function *08/08/2005 04/30/2009 OVERWEIGHT [E66.9] 08/08/2005 04/30/2009 Dermatophytosis of Nail [B35.1] 09/04/2005 04/30/2009 Depression [F32.5] 12/18/2005 Anxiety state [F41.1] 12/18/2005 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] 03/23/2006 04/30/2009 Pain in Joint, Shoulder Region [M25.519] 05/22/2006 04/30/2009 Neck Sprain and Strain [S13.9XXA] 05/22/2006 04/30/2009 Onychia and Paronychia of Toe [L03.039] 08/11/2006 04/30/2009 Cellulitis and Abscess of Foot, except Toes [L0*08/24/2006 04/30/2009 Rheumatoid arthritis (HCC) [M06.9] 12/04/2006 Anemia, unspecified [D64.9] 12/04/2006 09/29/2019 Sleep apnea [G47.30] 03/08/2007 Acute Bronchitis [J20.9] 05/18/2008 04/30/2009 Tenosynovitis of Foot and Ankle [M65.979] 06/29/2008 04/30/2009 Vitamin deficiency [E56.9] 04/23/2009 Routine general medical examination at a [facility]*04/30/2009 06/25/2015 Class: Chronic Routine gynecological examination [Z01.419] 04/30/2009 06/25/2015 Class: Chronic Diverticulosis of colon [K57.30] 04/30/2009 Cerebral infarction (HCC) [I63.9] 07/16/2009 Pain in joint, lower leg [M25.569] 01/21/2010 06/25/2015 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] 04/25/2010 Restless legs syndrome (RLS) [G25.81] 06/25/2010 Calcifying tendinitis of shoulder [M75.30] 07/09/2010 Venous insufficiency [I87.2] 09/08/2011 Thoracic or lumbosacral neuritis or radiculitis*03/01/2012 09/29/2019 Abnormality of gait [R26.9] 03/01/2012 06/25/2015 Vertigo [R42] 02/02/2013 06/25/2015 Cervicalgia [M54.2] 08/04/2014 Gait abnormality [R26.9] 08/04/2014 BPPV (benign paroxysmal positional vertigo) [H8*02/11/2015 09/29/2019 Obstructive sleep apnea syndrome [G47.33] 06/08/2015 Mixed hyperlipidemia [E78.2] 06/08/2015 GERD (gastroesophageal reflux disease) [K21.9] 08/09/2015 RLS (restless legs syndrome) [G25.81] 08/09/2015 Insomnia [G47.00] 08/09/2015 Vertigo [R42] 08/12/2015 09/29/2019 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/2015 Coronary artery disease [I25.10] 08/29/2015 Mild nonproliferative diabetic retinopathy of b*12/06/2018 Hypoglycemia unawareness in type 1 diabetes emer*01/18/2019 Other dysphagia [R13.19] 07/18/2019 09/29/2019 DKA (diabetic ketoacidoses) ([facility]) [E11.10] 09/28/2019 10/18/2020 Asthma [J45.909] 09/29/2019 SHERLYN (acute kidney injury) ([facility]) [N17.9] 09/29/2019 09/30/2019 H/O multiple allergies [Z88.9] 06/19/[address] [Z96.41] 07/10/2020 Type 1 diabetes mellitus with mild nonprolifera*10/18/2020 Type 1 diabetes mellitus with diabetic neuropat*10/18/2020 Class 2 severe obesity with serious comorbidity*10/18/2020 Bilateral carotid artery stenosis [I65.23] 05/10/2021 Encounter Status:Closed by VIDA SCHAEFER on 05/16/24 TIMN Observed: 05/09/2024 12:00 AM Status: COMPLETED Source: [facility] Telephone (INTMWS) MCKAYLA RUSSO ([id number]) 1945 F Date Time Provider Department 05/09/24 DARRYN ANDERSON INTMWS During your visit today, we recorded the following information about you: Damari Crooks, RN 05/09/2024 9:13 AM Signed Patient reports her zolpidem (ambien) 10 mg is costing her too much money due to the 30 day supply. Reports she spoke with her insurance company who informed her of this and told her - if provider would write the Rx for a 90 day supply it would cost patient $4.50. Reports this month she paid $16.53 for a 30 day supply. Last VV with Sultana: 04-14-24 Last in office visit with Sultana: 01-25-24 Next in office visit with Sultana: 06-06-24 Asking provider to send 90 day supply to [facility]. Pended. Sultana Harvey APRN.TIM 05/09/2024 1:20 PM Signed PDMP website checked and validated. All prescriptions have been APPROPRIATELY filled. No suspicious activity was identified. 05/09/2024 by Sultana Harvey APRN.[facility] [facility] Allergies As of Date: 05/09/2024 Noted Allergy Reaction AMITRIPTYLINE 11/09/2012 14 - Other: See Comments Comments: Confusion, falls CYMBALTA (DULOXETINE) 06/07/2015 16 - Unknown DOXYCYCLINE 06/11/2011 8 - GI Upset Comments: headache EPHEDRINE 01/10/2005 14 - Other: See Comments Comments: tachycardia, but pt. states she still uses nose spray IODINE 07/29/2006 9 - Itching Comments: itching after prolonged use ISOLONE FORTE 04/06/2023 7 - Swelling LEVAQUIN (LEVOFLOXACIN) 05/26/2012 14 - Other: See Comments Comments: Achilles tendon problem LYRICA (PREGABALIN) 05/26/2012 14 - Other: See Comments Comments: Dizziness at 225mg twice daily OXYCODONE 01/21/2021 1 - Mental Status Change PERCOCET (OXYCODONE-ACETAMINOPHEN)05/29/2010 16 - Unknown SULFA (SULFONAMIDE ANTIBIOTICS) 01/10/2005 4 - Hives Comments: blisters AGGRENOX (ASPIRIN-DIPYRIDAMOLE) 12/18/2008 14 - Other: See Comments Comments: MIGRAINES AND VOMITING CEPHALEXIN (BULK) 05/12/2008 8 - GI Upset DURICEF (CEFADROXIL) 01/10/2005 4 - Hives NORTRIPTYLINE 02/11/2013 14 - Other: See Comments Comments: vertigo Date Reviewed: 02/16/2024 Reviewed by: Magalys Mera, RN - Fully Assessed Reason for Visit: Medication Problem [65] Visit Diagnosis:Insomnia, unspecified type [G47.00] Order(s):[START ON 06/06/2024] zolpidem (AMBIEN) 10 mgTake 1 tablet by mouth at bedtime as needed (insomnia) for up to 90 days. Patient should start on June 06, 2024.Disp: 90 tabletRfl: 0 Prescriptions as of 05/09/2024 - zolpidem (AMBIEN) 10 mg Take 1 tablet by mouth at bedtime as needed (insomnia) for up to 90 days. Patient should start on June 06, 2024. - pramipexole (MIRAPEX) 1 mg tablet Take 2 tablets by mouth daily at bedtime. - hydrOXYchloroQUINE (PLAQUENIL) 200 mg tablet Take 1.5 tablets by mouth once daily. - famotidine (PEPCID) 20 mg tablet Take 1 tablet by mouth two times a day. - guaiFENesin (MUCINEX) 600 mg 12 hr tablet Take 1 tablet by mouth two times a day. - Infusion Set for Insulin Pump (MEDTRONIC EXT INFUSION SET 23) iset 1 Each one time a week. - amLODIPine (NORVASC) 5 mg tablet Take 1 tablet by mouth once daily. - benzonatate (TESSALON PERLES) 100 mg capsule Take 1 capsule by mouth three times a day as needed for cough. - nystatin (MYCOSTATIN) powder Apply 1 application to affected area three times a day. - clopidogrel (PLAVIX) 75 mg tablet Take 1 tablet by mouth once daily. - atorvastatin (LIPITOR) 40 mg tablet Take 1 tablet by mouth once daily. - neomycin 500 mg tablet Take 1 tablet by mouth every 12 hours. - metoclopramide HCl (REGLAN) 5 mg tablet Take 1 tablet by mouth every 6 hours for 30 days; administer 30 minutes before a meal. - Insulin Syringe-Needle U-100 (BD INSULIN SYRINGE ULTRA-FINE) 1 mL 31 gauge x 5/16 Use 4 syringes daily if insulin pump fails - blood sugar diagnostic (ACCU-CHEK GUIDE TEST STRIPS) test strip Use with blood glucose test upto four times daily - insulin lispro (HUMALOG U-100 INSULIN) 100 unit/mL injection as directed in Insulin pump up to 110 units daily. Dx E10.65 - losartan (COZAAR) 100 mg tablet Take 1 tablet by mouth once daily. - diclofenac sodium (VOLTAREN ARTHRITIS PAIN TOPICAL) Apply 2 g to affected area as needed (pain). - lidocain-me.nqjoyio-eueb-vcajk 0.5-20-0.035-5 % ptmd Apply 1 Each to affected area as needed. - traMADol (ULTRAM) 50 mg tablet Take 50 mg by mouth every 6 hours as needed for pain. - albuterol HFA (PROVENTIL HFA, VENTOLIN HFA) 90 mcg/actuation inhaler Inhale 2 Puffs as instructed every 4 hours as needed for wheezing/shortness of breath. - WALKER ROLLATOR SEAT WITH 6 WHEELS - RED For ambulation - nitroglycerin (NITROLINGUAL) 400 mcg/spray spray one every 5 minutes x3 as needed - Bacillus coagulans/inulin (PROBIOTIC WITH PREBIOTIC ORAL) Take 1 capsule by mouth once daily. - aspirin 81 mg chewable tablet Take 1 tablet by mouth once daily. - Cholecalciferol, Vitamin D3, 125 mcg (5,000 unit) cap Take 1 capsule by mouth once daily. - Biotin 1 mg tab Take 1 tablet by mouth once daily. - multivitamin tablet Take 1 tablet by mouth once daily. - acetaminophen (TYLENOL 8 HOUR) 650 mg CR tablet Take 1 tablet by mouth every 8 hours as needed. Problem List As Of Date 05/09/2024 Noted Resolved Hyperlipidemia [E78.5] Hypertension [I10] Coronary artery disease involving [place]* 09/29/2019 Dizziness and Giddiness [R42] 04/30/2009 Postsurgical Percutaneous Transluminal Coronary* 04/30/2009 Mild intermittent asthma without complication [* 09/29/2019 Other psoriasis [L40.8] 09/29/2019 Disorder of bone and cartilage [M89.9, M94.9] 09/29/2019 ESOPHAGITIS [530.1] Diverticulosis of Colon (without Mention of Hem* 04/30/2009 External Hemorrhoids without Mention of Complic* 04/30/2009 Internal Hemorrhoids without Mention of Complic* 04/30/2009 Allergic Rhinitis, Cause Unspecified [J30.9] 01/13/2005 06/25/2015 Ingrowing Nail [L60.0] 03/20/2005 04/30/2009 Pain in Soft Tissues of Limb [M79.609] 03/20/2005 04/30/2009 CARPAL TUNNEL BILATERRAL [M13.149] 08/08/2005 09/29/2019 Nonspecific Abnormal Results of Liver Function *08/08/2005 04/30/2009 OVERWEIGHT [E66.9] 08/08/2005 04/30/2009 Dermatophytosis of Nail [B35.1] 09/04/2005 04/30/2009 Depression [F32.5] 12/18/2005 Anxiety state [F41.1] 12/18/2005 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] 03/23/2006 04/30/2009 Pain in Joint, Shoulder Region [M25.519] 05/22/2006 04/30/2009 Neck Sprain and Strain [S13.9XXA] 05/22/2006 04/30/2009 Onychia and Paronychia of Toe [L03.039] 08/11/2006 04/30/2009 Cellulitis and Abscess of Foot, except Toes [L0*08/24/2006 04/30/2009 Rheumatoid arthritis (HCC) [M06.9] 12/04/2006 Anemia, unspecified [D64.9] 12/04/2006 09/29/2019 Sleep apnea [G47.30] 03/08/2007 Acute Bronchitis [J20.9] 05/18/2008 04/30/2009 Tenosynovitis of Foot and Ankle [M65.979] 06/29/2008 04/30/2009 Vitamin deficiency [E56.9] 04/23/2009 Routine general medical examination at [facility]*04/30/2009 06/25/2015 Class: Chronic Routine gynecological examination [Z01.419] 04/30/2009 06/25/2015 Class: Chronic Diverticulosis of colon [K57.30] 04/30/2009 Cerebral infarction (HCC) [I63.9] 07/16/2009 Pain in joint, lower leg [M25.569] 01/21/2010 06/25/2015 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] 04/25/2010 Restless legs syndrome (RLS) [G25.81] 06/25/2010 Calcifying tendinitis of shoulder [M75.30] 07/09/2010 Venous insufficiency [I87.2] 09/08/2011 Thoracic or lumbosacral neuritis or radiculitis*03/01/2012 09/29/2019 Abnormality of gait [R26.9] 03/01/2012 06/25/2015 Vertigo [R42] 02/02/2013 06/25/2015 Cervicalgia [M54.2] 08/04/2014 Gait abnormality [R26.9] 08/04/2014 BPPV (benign paroxysmal positional vertigo) [H8*02/11/2015 09/29/2019 Obstructive sleep apnea syndrome [G47.33] 06/08/2015 Mixed hyperlipidemia [E78.2] 06/08/2015 GERD (gastroesophageal reflux disease) [K21.9] 08/09/2015 RLS (restless legs syndrome) [G25.81] 08/09/2015 Insomnia [G47.00] 08/09/2015 Vertigo [R42] 08/12/2015 09/29/2019 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/2015 Coronary artery disease [I25.10] 08/29/2015 Mild nonproliferative diabetic retinopathy of b*12/06/2018 Hypoglycemia unawareness in type 1 diabetes emre*01/18/2019 Other dysphagia [R13.19] 07/18/2019 09/29/2019 DKA (diabetic ketoacidoses) ([facility]) [E11.10] 09/28/2019 10/18/2020 Asthma [J45.909] 09/29/2019 SHERLYN (acute kidney injury) ([facility]) [N17.9] 09/29/2019 09/30/2019 H/O multiple allergies [Z88.9] 06/19/[address] [Z96.41] 07/10/2020 Type 1 diabetes mellitus with mild nonprolifera*10/18/2020 Type 1 diabetes mellitus with diabetic neuropat*10/18/2020 Class 2 severe obesity with serious comorbidity*10/18/2020 Bilateral carotid artery stenosis [I65.23] 05/10/2021 Prescriptions ordered this encounter Disp Refills Start End ZOLPIDEM 10 MG TABLET 90 t* 0 06/06/2024 09/04/2024 Route: ORAL Sig: Take 1 tablet by mouth at bedtime as needed (insomnia) for up to 90 days. Patient should start on June 06, 2024. Medications Discontinued During This Encounter Prescriptions - zolpidem (AMBIEN) 10 mg (Discontinued) Take 1 tablet by mouth at bedtime as needed (insomnia) for up to 90 days. Encounter Status:Closed by SULTANA HARVEY on 05/09/24 PROGRESS Observed: 05/02/2024 3:59 PM Status: COMPLETED Source: [facility] HNO ID: [id number] Author: FRANKIE AMANDA MA Service: ? 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 No evidence of PLQ toxicity. Report sent for scanning. Frankie Amanda MA PROGRESS Observed: 04/14/2024 8:20 AM Status: COMPLETED Source: [facility] HNO ID: [id number] Author: SULTANA HARVEY APRN.[facility] [facility] Service: ? Author Type: Nurse Practitioner Type: Progress Notes Filed: 04/14/2024 08:46 Note Text: This Team Access Model visit is a virtual encounter. It required patient-provider interaction for the medical decision making as documented below. Patient agrees to the visit: Yes Patient Location: [place] CC: Patient presents with: Cough HPI Mckayla Russo is a 78 year old female who is contacted today for a virtual visit. This is an established patient of Dr. Darryn Anderson MD. Had COVID in December. Was treated with augmentin twice and zpack. Last treatment was in January and reports she never improved. CXR on 01/25 was without acute concern. N Has history of asthma, ILD, and recurrent sinusitis. 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 Current symptoms are sinus congestion, voice hoarseness, intermittent nose bleeds, cough producing clear to yellow to green coloring that varies, intermittent wheezing, chest and head get a pounding sensation when laying flat, intermittent ear pain. Cough and wheezing is worse at night. Has seen ENT in the past for her sinus issues and nose bleeds. Chronic shortness of breath is at baseline. Denies fever, dizziness, syncope, new weakness, Using saline nasal spray, mucinex, and sleeping with HOB elevated without improvement. REVIEW OF SYSTEMS See HPI PAST MEDICAL HISTORY Diagnosis Date Abnormal mammogram, unspecified left breast BPPV (benign paroxysmal positional vertigo) 02/11/2015 BPV (benign positional vertigo) CAD (coronary artery disease) Carotid stenosis CARPAL TUNNEL BILATERRAL 08/08/2005 Coronary artery disease involving [place] coronary artery Dr. Pederson follows regularly; S/P PTCA and stenting at [facility], 2001 Coronary atherosclerosis of unspecified type of vessel, [place] or graft Disorder of bone and cartilage, [...] RLS (restless legs syndrome) Stroke (cerebrum) ([facility]) x3 Thoracic or lumbosacral neuritis or radiculitis, [...] CORE BIOPSY 02/24/08 LEFT - benign ALLERGIES Amitriptyline, Cymbalta [Duloxetine], Doxycycline, Ephedrine, Iodine, Isolone Forte, Levaquin [Levofloxacin], Lyrica [Pregabalin], Oxycodone, Percocet [Oxycodone-Acetaminophen], Sulfa (Sulfonamide Antibiotics), Aggrenox [Aspirin-Dipyridamole], Cephalexin (Bulk), Duricef [Cefadroxil], and Nortriptyline MEDICATIONS zolpidem (AMBIEN) 10 mg Take 1 tablet by mouth at bedtime as needed (insomnia) for up to 90 days. hydrOXYchloroQUINE (PLAQUENIL) 200 mg tablet Take 1.5 tablets by mouth once daily. famotidine (PEPCID) 20 mg tablet Take 1 tablet by mouth two times a day. guaiFENesin (MUCINEX) 600 mg 12 hr tablet Take 1 tablet by mouth two times a day. Infusion Set for Insulin Pump (MEDTRONIC EXT INFUSION SET 23) iset 1 Each one time a week. amLODIPine (NORVASC) 5 mg tablet Take 1 tablet by mouth once daily. benzonatate (TESSALON PERLES) 100 mg capsule Take 1 capsule by mouth three times a day as needed for cough. nystatin (MYCOSTATIN) powder Apply 1 application to affected area three times a day. clopidogrel (PLAVIX) 75 mg tablet Take 1 tablet by mouth once daily. atorvastatin (LIPITOR) 40 mg tablet Take 1 tablet by mouth once daily. pramipexole (MIRAPEX) 1 mg tablet Take 2 tablets by mouth daily at bedtime. neomycin 500 mg tablet Take 1 tablet by mouth every 12 hours. (Patient not taking: Reported on 11/25/2023) metoclopramide HCl (REGLAN) 5 mg tablet Take 1 tablet by mouth every 6 hours for 30 days; administer 30 minutes before a meal. Insulin Syringe-Needle U-100 (BD INSULIN SYRINGE ULTRA-FINE) 1 mL 31 gauge x 5/16 Use 4 syringes daily if insulin pump fails blood sugar diagnostic (ACCU-CHEK GUIDE TEST STRIPS) test strip Use with blood glucose test upto four times daily insulin lispro (HUMALOG U-100 INSULIN) 100 unit/mL injection as directed in Insulin pump up to 110 units daily. Dx E10.65 losartan (COZAAR) 100 mg tablet Take 1 tablet by mouth once daily. diclofenac sodium (VOLTAREN ARTHRITIS PAIN TOPICAL) Apply 2 g to affected area as needed (pain). lidocain-me.yturbdp-onxf-zaopq 0.5-20-0.035-5 % ptmd Apply 1 Each to affected area as needed. traMADol (ULTRAM) 50 mg tablet Take 50 mg by mouth every 6 hours as needed for pain. albuterol HFA (PROVENTIL HFA, VENTOLIN HFA) 90 mcg/actuation inhaler Inhale 2 Puffs as instructed every 4 hours as needed for wheezing/shortness of breath. WALKER ROLLATOR SEAT WITH 6 WHEELS - RED For ambulation nitroglycerin (NITROLINGUAL) 400 mcg/spray spray one every 5 minutes x3 as needed (Patient taking differently: Dissolve 1 [place] under the tongue every 5 minutes as needed for chest pain.) Bacillus coagulans/inulin (PROBIOTIC WITH PREBIOTIC ORAL) Take 1 capsule by mouth once daily. aspirin 81 mg chewable tablet Take 1 tablet by mouth once daily. Cholecalciferol, Vitamin D3, 125 mcg (5,000 unit) cap Take 1 capsule by mouth once daily. Biotin 1 mg tab Take 1 tablet by mouth once daily. multivitamin tablet Take [...] Use Smoking status: Never Smokeless tobacco: Never Vaping Use Vaping status: Never Used Substance Use Topics Alcohol use: No Drug use: No EXAM: Virtual visit completed using video, limited exam completed. GENERAL: alert and appropriate, in no distress, well-hydrated, well nourished, and happy, smiling, interactive RESPIRATORY: breathing non-labored CHEST: equal chest rise with normal respiratory effort DATA REVIEWED: No new labs BP Controlled (<130/80) Never done Diabetic Foot Exam due on 10/02/2021 Dilated Retinal Exam due on 03/24/2024 Spirometry due on 08/18/2024 Covid-19 Vaccine( season) due on 01/12/2025 HbA1C due on 08/16/2024 Urine Albumin:Creatinine Ratio due on 08/31/2024 LDL Cholesterol due on 08/31/2024 Annual PCP Team Chronic Disease Visit due on 02/21/2025 DTaP,Tdap,Td Vaccine(3 - Td or Tdap) due on 07/31/2031 Bone Density Screening Completed Influenza Vaccine Completed Advance Directive Discussion Completed RSV Vaccine Completed Hepatitis C Screening Completed Shingrix Vaccine Completed Pneumococcal Vaccine: 50+ Completed Mammogram Screening Discontinued Colorectal Cancer Screening Discontinued ASSESSMENT/PLAN: 1. Recurrent sinusitis - ICD9: 473.9, ICD10: J32.9 (primary diagnosis) - difficult to fully assess due to virtual visit. Patient unable to get ride to office. Appears not in any repsiratory distress and in good spirits, Her complaints sound sinus related so will send her back to ENT. Also recommend express care if needed as someone should listen to her lungs and fully assess her. - Supportive care with plenty of fluids, rest, and analgesia prn. - CONSULT TO ENT 2. Epistaxis - ICD9: 784.7, ICD10: R04.0 Go to ER for nose bleeds not self resolving. - CONSULT TO ENT Prescription instructions reviewed with patient as applicable. Potential red flag symptoms discussed with the patient. Reviewed appropriate action plan to take if red flag symptoms occur. Patient agreeable to treatment plan. During this patient visit I have spent approximately 25 minutes in counseling regarding treatment options, medications, and coordinating care. Sultana Harvey APRN.TIM DURAN Observed: 03/29/2024 12:00 AM Status: COMPLETED Source: [facility] Telephone (ENWSTR) MCKAYLA RUSSO ([id number]) 1945 F Date Time Provider Department 03/29/24 EVA NIELSEN ENWSTR During your visit today, we recorded the following information about you: Mckayla Palomino LPN 03/29/2024 11:16 AM Signed Patient calling and states she is out of infusion sets for her pump. She has an order through [facility] but they may not be able to obtain it until after 04/04 +shipping time. She is wondering if we could contact our [employer] rep to see if they might be able to provide her with 2 sets until her next shipment arrives? Pt. phone: [phone] ELA Rizvi Brittney, RN 03/29/2024 11:50 AM Signed Email sent to Yann Pickett, [employer] rep, inquiring about below notation per Pt request. Will contact Pt to let her know what we find out. Magalys Mera RN March 29, 2024 11:50 AM Magalys Mera RN 03/29/2024 4:41 PM Signed Per Yann at [facility] - [employer] can offer that for her. I will call her now. Best Learning English message sent to Pt letting her know. Magalys Mera RN March 29, 2024 4:41 PM Allergies As of Date: 03/29/2024 Noted Allergy Reaction AMITRIPTYLINE 11/09/2012 14 - Other: See Comments Comments: Confusion, falls CYMBALTA (DULOXETINE) 06/07/2015 16 - Unknown DOXYCYCLINE 06/11/2011 8 - GI Upset Comments: headache EPHEDRINE 01/10/2005 14 - Other: See Comments Comments: tachycardia, but pt. states she still uses nose spray IODINE 07/29/2006 9 - Itching Comments: itching after prolonged use ISOLONE FORTE 04/06/2023 7 - Swelling LEVAQUIN (LEVOFLOXACIN) 05/26/2012 14 - Other: See Comments Comments: Achilles tendon problem LYRICA (PREGABALIN) 05/26/2012 14 - Other: See Comments Comments: Dizziness at 225mg twice daily OXYCODONE 01/21/2021 1 - Mental Status Change PERCOCET (OXYCODONE-ACETAMINOPHEN)05/29/2010 16 - Unknown SULFA (SULFONAMIDE ANTIBIOTICS) 01/10/2005 4 - Hives Comments: blisters AGGRENOX (ASPIRIN-DIPYRIDAMOLE) 12/18/2008 14 - Other: See Comments Comments: MIGRAINES AND VOMITING CEPHALEXIN (BULK) 05/12/2008 8 - GI Upset DURICEF (CEFADROXIL) 01/10/2005 4 - Hives NORTRIPTYLINE 02/11/2013 14 - Other: See Comments Comments: vertigo Date Reviewed: 02/16/2024 Reviewed by: Magalys Mera, LUMA - Fully Assessed Reason for Visit: Medication Problem [65] Prescriptions as of 03/29/2024 - famotidine (PEPCID) 20 mg tablet Take 1 tablet by mouth two times a day. - guaiFENesin (MUCINEX) 600 mg 12 hr tablet Take 1 tablet by mouth two times a day. - Infusion Set for Insulin Pump (MEDTRONIC EXT INFUSION SET 23) iset 1 Each one time a week. - zolpidem (AMBIEN) 10 mg Take 1 tablet by mouth at bedtime as needed (insomnia) for up to 90 days. - amLODIPine (NORVASC) 5 mg tablet Take 1 tablet by mouth once daily. - benzonatate (TESSALON PERLES) 100 mg capsule Take 1 capsule by mouth three times a day as needed for cough. - hydrOXYchloroQUINE (PLAQUENIL) 200 mg tablet Take 1.5 tablets by mouth once daily. - nystatin (MYCOSTATIN) powder Apply 1 application to affected area three times a day. - clopidogrel (PLAVIX) 75 mg tablet Take 1 tablet by mouth once daily. - atorvastatin (LIPITOR) 40 mg tablet Take 1 tablet by mouth once daily. - pramipexole (MIRAPEX) 1 mg tablet Take 2 tablets by mouth daily at bedtime. - neomycin 500 mg tablet Take 1 tablet by mouth every 12 hours. - metoclopramide HCl (REGLAN) 5 mg tablet Take 1 tablet by mouth every 6 hours for 30 days; administer 30 minutes before a meal. - Insulin Syringe-Needle U-100 (BD INSULIN SYRINGE ULTRA-FINE) 1 mL 31 gauge x 5/16 Use 4 syringes daily if insulin pump fails - blood sugar diagnostic (ACCU-CHEK GUIDE TEST STRIPS) test strip Use with blood glucose test upto four times daily - insulin lispro (HUMALOG U-100 INSULIN) 100 unit/mL injection as directed in Insulin pump up to 110 units daily. Dx E10.65 - losartan (COZAAR) 100 mg tablet Take 1 tablet by mouth once daily. - diclofenac sodium (VOLTAREN ARTHRITIS PAIN TOPICAL) Apply 2 g to affected area as needed (pain). - lidocain-me.oqfvdln-ffsm-ybhry 0.5-20-0.035-5 % ptmd Apply 1 Each to affected area as needed. - traMADol (ULTRAM) 50 mg tablet Take 50 mg by mouth every 6 hours as needed for pain. - albuterol HFA (PROVENTIL HFA, VENTOLIN HFA) 90 mcg/actuation inhaler Inhale 2 Puffs as instructed every 4 hours as needed for wheezing/shortness of breath. - WALKER ROLLATOR SEAT WITH 6 WHEELS - RED For ambulation - nitroglycerin (NITROLINGUAL) 400 mcg/spray spray one every 5 minutes x3 as needed - Bacillus coagulans/inulin (PROBIOTIC WITH PREBIOTIC ORAL) Take 1 capsule by mouth once daily. - aspirin 81 mg chewable tablet Take 1 tablet by mouth once daily. - Cholecalciferol, Vitamin D3, 125 mcg (5,000 unit) cap Take 1 capsule by mouth once daily. - Biotin 1 mg tab Take 1 tablet by mouth once daily. - multivitamin tablet Take 1 tablet by mouth once daily. - acetaminophen (TYLENOL 8 HOUR) 650 mg CR tablet Take 1 tablet by mouth every 8 hours as needed. Problem List As Of Date 03/29/2024 Noted Resolved Hyperlipidemia [E78.5] Hypertension [I10] Coronary artery disease involving [place]* 09/29/2019 Dizziness and Giddiness [R42] 04/30/2009 Postsurgical Percutaneous Transluminal Coronary* 04/30/2009 Mild intermittent asthma without complication [* 09/29/2019 Other psoriasis [L40.8] 09/29/2019 Disorder of bone and cartilage [M89.9, M94.9] 09/29/2019 ESOPHAGITIS [530.1] Diverticulosis of Colon (without Mention of Hem* 04/30/2009 External Hemorrhoids without Mention of Complic* 04/30/2009 Internal Hemorrhoids without Mention of Complic* 04/30/2009 Allergic Rhinitis, Cause Unspecified [J30.9] 01/13/2005 06/25/2015 Ingrowing Nail [L60.0] 03/20/2005 04/30/2009 Pain in Soft Tissues of Limb [M79.609] 03/20/2005 04/30/2009 CARPAL TUNNEL BILATERRAL [M13.149] 08/08/2005 09/29/2019 Nonspecific Abnormal Results of Liver Function *08/08/2005 04/30/2009 OVERWEIGHT [E66.9] 08/08/2005 04/30/2009 Dermatophytosis of Nail [B35.1] 09/04/2005 04/30/2009 Depression [F32.5] 12/18/2005 Anxiety state [F41.1] 12/18/2005 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] 03/23/2006 04/30/2009 Pain in Joint, Shoulder Region [M25.519] 05/22/2006 04/30/2009 Neck Sprain and Strain [S13.9XXA] 05/22/2006 04/30/2009 Onychia and Paronychia of Toe [L03.039] 08/11/2006 04/30/2009 Cellulitis and Abscess of Foot, except Toes [L0*08/24/2006 04/30/2009 Rheumatoid arthritis (HCC) [M06.9] 12/04/2006 Anemia, unspecified [D64.9] 12/04/2006 09/29/2019 Sleep apnea [G47.30] 03/08/2007 Acute Bronchitis [J20.9] 05/18/2008 04/30/2009 Tenosynovitis of Foot and Ankle [M65.979] 06/29/2008 04/30/2009 Vitamin deficiency [E56.9] 04/23/2009 Routine general medical examination at [facility]*04/30/2009 06/25/2015 Class: Chronic Routine gynecological examination [Z01.419] 04/30/2009 06/25/2015 Class: Chronic Diverticulosis of colon [K57.30] 04/30/2009 Cerebral infarction (HCC) [I63.9] 07/16/2009 Pain in joint, lower leg [M25.569] 01/21/2010 06/25/2015 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] 04/25/2010 Restless legs syndrome (RLS) [G25.81] 06/25/2010 Calcifying tendinitis of shoulder [M75.30] 07/09/2010 Venous insufficiency [I87.2] 09/08/2011 Thoracic or lumbosacral neuritis or radiculitis*03/01/2012 09/29/2019 Abnormality of gait [R26.9] 03/01/2012 06/25/2015 Vertigo [R42] 02/02/2013 06/25/2015 Cervicalgia [M54.2] 08/04/2014 Gait abnormality [R26.9] 08/04/2014 BPPV (benign paroxysmal positional vertigo) [H8*02/11/2015 09/29/2019 Obstructive sleep apnea syndrome [G47.33] 06/08/2015 Mixed hyperlipidemia [E78.2] 06/08/2015 GERD (gastroesophageal reflux disease) [K21.9] 08/09/2015 RLS (restless legs syndrome) [G25.81] 08/09/2015 Insomnia [G47.00] 08/09/2015 Vertigo [R42] 08/12/2015 09/29/2019 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/2015 Coronary artery disease [I25.10] 08/29/2015 Mild nonproliferative diabetic retinopathy of b*12/06/2018 Hypoglycemia unawareness in type 1 diabetes emre*01/18/2019 Other dysphagia [R13.19] 07/18/2019 09/29/2019 DKA (diabetic ketoacidoses) ([facility]) [E11.10] 09/28/2019 10/18/2020 Asthma [J45.909] 09/29/2019 SHERLYN (acute kidney injury) (HCC) [N17.9] 09/29/2019 09/30/2019 H/O multiple allergies [Z88.9] 06/19/[address] [Z96.41] 07/10/2020 Type 1 diabetes mellitus with mild nonprolifera*10/18/2020 Type 1 diabetes mellitus with diabetic neuropat*10/18/2020 Class 2 severe obesity with serious comorbidity*10/18/2020 Bilateral carotid artery stenosis [I65.23] 05/10/2021 Encounter Status:Closed by MAGALYS MERA on 03/29/24 PROGRESS Observed: 02/22/2024 10:03 AM Status: COMPLETED Source: [facility] HNO ID: [id number] Author: DARRYN ANDERSON MD Service: ? Author Type: Physician Type: Progress Notes Filed: 02/22/2024 14:11 Note Text: Chief Complaint Patient presents with: Follow Up HPI Mckayla Russo is a 78 year old female who is contacted today for a virtual/telemedicine visit. This is an established patient of Dr. Darryn Anderson MD. States she is still sick since December, was on augmentin and zpak, could not finish the zpak. She is still congested and coughing and the phlegm, phlegm is between clear and yellow. I heard her today and it seems, what she has is more of throat clearing. No fevers or chills She needs her handicap placard to be given to her. Patient notes she is more frail and home bound right now. She is following up with Dr Nielsen for her Diabetes Mellitus. Depression appears to be in remission, not on medications. Socializes with family and that helps her. Past medical history, appointments, medications, allergies reviewed 02/22/2024 Previous Medical History PAST MEDICAL HISTORY Diagnosis Date Abnormal mammogram, unspecified left breast BPPV (benign paroxysmal positional vertigo) 02/11/2015 BPV (benign positional vertigo) CAD (coronary artery disease) Carotid stenosis CARPAL TUNNEL BILATERRAL 08/08/2005 Coronary artery disease involving [place] coronary artery Dr. 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 ([facility]) 12/06/2018 Other and unspecified hyperlipidemia Other forms of migraine Other psoriasis Postsurgical percutaneous transluminal coronary angioplasty status Rheumatoid arthritis(714.0) RLS (restless legs syndrome) Stroke (cerebrum) (FORM[facility]) x3 Thoracic or lumbosacral neuritis or radiculitis, unspecified 03/01/2012 Type I (juvenile type) diabetes mellitus with neurological manifestations, not stated as 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.61) 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, 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) Unspecified asthma(493.90) Unspecified essential hypertension Unspecified hereditary and idiopathic peripheral neuropathy Previous Surgical History PAST SURGICAL HISTORY Procedure Laterality Date BREAST [...] STEREOTACTIC CORE BIOPSY 02/24/08 LEFT - benign Family History FAMILY HISTORY Problem Relation Age of Onset Cancer Mother breast (diagnosed mid 50's) Heart Mother valvular other (Other) Father leukemia (dx'd age 55) Asthma Paternal Grandmother Diabetes Paternal Grandmother Colon Cancer Other none other (autoimmune def) Daughter Patient Allergies ALLERGIES Allergen Reactions Amitriptyline Other: See Comments Confusion, falls Cymbalta [Duloxetin* Unknown Doxycycline GI Upset headache Ephedrine Other: See Comments tachycardia, but pt. states she still uses nose spray Iodine Itching itching after prolonged use Isolone Forte Swelling Levaquin [Levofloxa* Other: See Comments Achilles tendon problem Lyrica [Pregabalin] Other: See Comments Dizziness at 225mg twice daily Oxycodone Mental Status Change Percocet [Oxycodone* Unknown Sulfa (Sulfonamide * Hives blisters Aggrenox [Aspirin-D* Other: See Comments MIGRAINES AND VOMITING Cephalexin (Bulk) GI Upset Duricef [Cefadroxil] Hives Nortriptyline Other: See Comments vertigo Current Medications Current Outpatient Medications on File Prior to Visit Medication Sig Infusion Set for Insulin Pump ([employer] EXT INFUSION SET 23) iset 1 Each one time a week. zolpidem (AMBIEN) 10 mg Take 1 tablet by mouth at bedtime as needed (insomnia) for up to 90 days. amLODIPine (NORVASC) 5 mg tablet Take 1 tablet by mouth once daily. benzonatate (TESSALON PERLES) 100 mg capsule Take 1 capsule by mouth three times a day as needed for cough. hydrOXYchloroQUINE (PLAQUENIL) 200 mg tablet Take 1.5 tablets by mouth once daily. nystatin (MYCOSTATIN) powder Apply 1 application to affected area three times a day. clopidogrel (PLAVIX) 75 mg tablet Take 1 tablet by mouth once daily. atorvastatin (LIPITOR) 40 mg tablet Take 1 tablet by mouth once daily. pramipexole (MIRAPEX) 1 mg tablet Take 2 tablets by mouth daily at bedtime. neomycin 500 mg tablet Take 1 tablet by mouth every 12 hours. (Patient not taking: Reported on 11/25/2023) metoclopramide HCl (REGLAN) 5 mg tablet Take 1 tablet by mouth every 6 hours for 30 days; administer 30 minutes before a meal. Insulin Syringe-Needle U-100 (BD INSULIN SYRINGE ULTRA-FINE) 1 mL 31 gauge x /16 Use 4 syringes daily if insulin pump fails blood sugar diagnostic (ACCU-CHEK GUIDE TEST STRIPS) test strip Use with blood glucose test upto four times daily insulin lispro (HUMALOG U-100 INSULIN) 100 unit/mL injection as directed in Insulin pump up to 110 units daily. Dx E10.65 losartan (COZAAR) 100 mg tablet Take 1 tablet by mouth once daily. diclofenac sodium (VOLTAREN ARTHRITIS PAIN TOPICAL) Apply 2 g to affected area as needed (pain). lidocain-me.jinprlh-ixsp-iiljz 0.5-20-0.035-5 % ptmd Apply 1 Each to affected area as needed. traMADol (ULTRAM) 50 mg tablet Take 50 mg by mouth every 6 hours as needed for pain. albuterol HFA (PROVENTIL HFA, VENTOLIN HFA) 90 mcg/actuation inhaler Inhale 2 Puffs as instructed every 4 hours as needed for wheezing/shortness of breath. WALKER ROLLATOR SEAT WITH 6 WHEELS - RED For ambulation nitroglycerin (NITROLINGUAL) 400 mcg/spray spray one every 5 minutes x3 as needed (Patient taking differently: Dissolve 1 [place] under the tongue every 5 minutes as needed for chest pain.) Bacillus coagulans/inulin (PROBIOTIC WITH PREBIOTIC ORAL) Take 1 capsule by mouth once daily. aspirin 81 mg chewable tablet Take 1 tablet by mouth once daily. Cholecalciferol, Vitamin D3, 125 mcg (5,000 unit) cap Take 1 capsule by mouth once daily. Biotin 1 mg tab Take 1 tablet by mouth once daily. multivitamin tablet Take 1 tablet by mouth once daily. acetaminophen (TYLENOL 8 HOUR) 650 mg CR tablet Take 1 tablet by mouth every 8 hours as needed. No current facility-administered medications on file prior to visit. Social History Social History Tobacco Use Smoking status: Never Smokeless tobacco: Never Vaping Use Vaping status: Never Used Substance Use Topics Alcohol use: No Drug use: No Review of Symptoms GENERAL: No weight loss. No malaise or fevers HEENT: Negative for headaches No eye discharge or redness No earaches or drainage No sore throat Nose POS/NEG for congestion and nasal discharge NECK: Negative for lumps, pain or significant neck swelling RESPIRATORY: No wheezing, SOB, Difficulty breathing. CARDIOVASCULAR: Negative for chest pain GI: No nausea, vomiting, or diarrhea MUSCULOSKELETAL: Negative for muscle aches or bodyaches SKIN: Negative for lesions, rash, and itching Neuro: No lightheadedness or dizziness EXAM: There were no vitals taken for this visit. Deferred physical exam as visit was completed over the phone. Virtual visit completed using video, limited exam completed. General Appearance: Well appearing, alert, in no acute distress, well-hydrated, well nourished. Skin: Skin color Head: Normocephalic Psych: Attitude - cooperative, easily engaged in conversation Appearance - normal, hygiene and grooming appropriate Affect - euthymic, normal mood Mental status: Alert, attentive. Speech is clear and fluent with good repetition, comprehension Coordination: No abnormal or extraneous movements. Gait/Stance: Posture is normal. Health Maintenance List BP Controlled (<130/80) Never done Diabetic Foot Exam due on 10/02/2021 Influenza Vaccine(1) due on 12/20/2023 Spirometry due on 08/18/2024 Covid-19 Vaccine( season) due on 01/12/2025 Dilated Retinal Exam due on 03/24/2024 HbA1C due on 08/16/2024 Urine Albumin:Creatinine Ratio due on 08/31/2024 LDL Cholesterol due on 08/31/2024 Annual PCP Team Chronic Disease Visit due on 01/24/2025 DTaP,Tdap,Td Vaccine(3 - Td or Tdap) due on 07/31/2031 Bone Density Screening Completed Advance Directive Discussion Completed RSV Vaccine Completed Hepatitis C Screening Completed Shingrix Vaccine Completed Pneumococcal Vaccine: 65+ Completed Mammogram Screening Discontinued Colorectal Cancer Screening Discontinued Data reviewed Last 5 Encounter BP Readings: Date: BP: 02/16/2024 120/82 01/25/2024 128/62 12/07/2023 132/70 11/25/2023 148/77 11/24/2023 128/70 BMI Readings from Last 5 Encounters: 02/16/24 : 30.04 kg/m? 01/25/24 : 29.84 kg/m? 12/07/23 : 30.96 kg/m? 11/25/23 : 31.70 kg/m? 11/24/23 : 31.70 kg/m? Last 5 Encounter Wt Readings: Date: Wt: 02/16/2024 72.1 kg (159 lb) 01/25/2024 72.6 kg (160 lb) 12/07/2023 75.3 kg (166 lb) 11/25/2023 77.1 kg (170 lb) 11/24/2023 77.1 kg (170 lb) Medication and allergy list reviewed, reconciled and updated 02/22/2024. ASSESSMENT/PLAN: 1. Gait abnormality - ICD9: 781.2, ICD10: R26.9 (primary diagnosis) - PARKING FOR HANDICAPPED 2. Class 2 severe obesity with serious comorbidity and body mass index (BMI) of 39.0 to 39.9 in adult, unspecified obesity type (HCC) - ICD9: 278.01, V85.39, ICD10: E66.812, Z68.39, E66.01 - PARKING FOR HANDICAPPED 3. 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) - ICD9: 296.25, ICD10: F32.5 The patient has a history of depression, currently it is in remission Darryn Anderson MD [facility] Observed: 02/22/2024 12:00 AM Status: COMPLETED Source: [facility] Telephone (INTReissuedWS) MCKAYLA RUSSO ([id number]) 1945 F Date Time Provider Department 02/22/24 DARRYN ANDERSON INTDamariWS During your visit today, we recorded the following information about you: Vida Schaefer MA 02/22/2024 11:56 AM Signed Handicap placecard x2 mailed to patient. Vida Schaefer MA Allergies As of Date: 02/22/2024 Noted Allergy Reaction AMITRIPTYLINE 11/09/2012 14 - Other: See Comments Comments: Confusion, falls CYMBALTA (DULOXETINE) 06/07/2015 16 - Unknown DOXYCYCLINE 06/11/2011 8 - GI Upset Comments: headache EPHEDRINE 01/10/2005 14 - Other: See Comments Comments: tachycardia, but pt. states she still uses nose spray IODINE 07/29/2006 9 - Itching Comments: itching after prolonged use ISOLONE FORTE 04/06/2023 7 - Swelling LEVAQUIN (LEVOFLOXACIN) 05/26/2012 14 - Other: See Comments Comments: Achilles tendon problem LYRICA (PREGABALIN) 05/26/2012 14 - Other: See Comments Comments: Dizziness at 225mg twice daily OXYCODONE 01/21/2021 1 - Mental Status Change PERCOCET (OXYCODONE-ACETAMINOPHEN)05/29/2010 16 - Unknown SULFA (SULFONAMIDE ANTIBIOTICS) 01/10/2005 4 - Hives Comments: blisters AGGRENOX (ASPIRIN-DIPYRIDAMOLE) 12/18/2008 14 - Other: See Comments Comments: MIGRAINES AND VOMITING CEPHALEXIN (BULK) 05/12/2008 8 - GI Upset DURICEF (CEFADROXIL) 01/10/2005 4 - Hives NORTRIPTYLINE 02/11/2013 14 - Other: See Comments Comments: vertigo Date Reviewed: 02/16/2024 Reviewed by: Magalys Mera RN - Fully Assessed Reason for Visit: Orders [681] Prescriptions as of 02/22/2024 - famotidine (PEPCID) 20 mg tablet Take 1 tablet by mouth two times a day. - guaiFENesin (MUCINEX) 600 mg 12 hr tablet Take 1 tablet by mouth two times a day. - Infusion Set for Insulin Pump (MEDTRONIC EXT INFUSION SET 23) iset 1 Each one time a week. - zolpidem (AMBIEN) 10 mg Take 1 tablet by mouth at bedtime as needed (insomnia) for up to 90 days. - amLODIPine (NORVASC) 5 mg tablet Take 1 tablet by mouth once daily. - benzonatate (TESSALON PERLES) 100 mg capsule Take 1 capsule by mouth three times a day as needed for cough. - hydrOXYchloroQUINE (PLAQUENIL) 200 mg tablet Take 1.5 tablets by mouth once daily. - nystatin (MYCOSTATIN) powder Apply 1 application to affected area three times a day. - clopidogrel (PLAVIX) 75 mg tablet Take 1 tablet by mouth once daily. - atorvastatin (LIPITOR) 40 mg tablet Take 1 tablet by mouth once daily. - pramipexole (MIRAPEX) 1 mg tablet Take 2 tablets by mouth daily at bedtime. - neomycin 500 mg tablet Take 1 tablet by mouth every 12 hours. - metoclopramide HCl (REGLAN) 5 mg tablet Take 1 tablet by mouth every 6 hours for 30 days; administer 30 minutes before a meal. - Insulin Syringe-Needle U-100 (BD INSULIN SYRINGE ULTRA-FINE) 1 mL 31 gauge x 5/16 Use 4 syringes daily if insulin pump fails - blood sugar diagnostic (ACCU-CHEK GUIDE TEST STRIPS) test strip Use with blood glucose test upto four times daily - insulin lispro (HUMALOG U-100 INSULIN) 100 unit/mL injection as directed in Insulin pump up to 110 units daily. Dx E10.65 - losartan (COZAAR) 100 mg tablet Take 1 tablet by mouth once daily. - diclofenac sodium (VOLTAREN ARTHRITIS PAIN TOPICAL) Apply 2 g to affected area as needed (pain). - lidocain-me.cgdozeh-zffj-yisrq 0.5-20-0.035-5 % ptmd Apply 1 Each to affected area as needed. - traMADol (ULTRAM) 50 mg tablet Take 50 mg by mouth every 6 hours as needed for pain. - albuterol HFA (PROVENTIL HFA, VENTOLIN HFA) 90 mcg/actuation inhaler Inhale 2 Puffs as instructed every 4 hours as needed for wheezing/shortness of breath. - WALKER ROLLATOR SEAT WITH 6 WHEELS - RED For ambulation - nitroglycerin (NITROLINGUAL) 400 mcg/spray spray one every 5 minutes x3 as needed - Bacillus coagulans/inulin (PROBIOTIC WITH PREBIOTIC ORAL) Take 1 capsule by mouth once daily. - aspirin 81 mg chewable tablet Take 1 tablet by mouth once daily. - Cholecalciferol, Vitamin D3, 125 mcg (5,000 unit) cap Take 1 capsule by mouth once daily. - Biotin 1 mg tab Take 1 tablet by mouth once daily. - multivitamin tablet Take 1 tablet by mouth once daily. - acetaminophen (TYLENOL 8 HOUR) 650 mg CR tablet Take 1 tablet by mouth every 8 hours as needed. Problem List As Of Date 02/22/2024 Noted Resolved Hyperlipidemia [E78.5] Hypertension [I10] Coronary artery disease involving [place]* 09/29/2019 Dizziness and Giddiness [R42] 04/30/2009 Postsurgical Percutaneous Transluminal Coronary* 04/30/2009 Mild intermittent asthma without complication [* 09/29/2019 Other psoriasis [L40.8] 09/29/2019 Disorder of bone and cartilage [M89.9, M94.9] 09/29/2019 ESOPHAGITIS [530.1] Diverticulosis of Colon (without Mention of Hem* 04/30/2009 External Hemorrhoids without Mention of Complic* 04/30/2009 Internal Hemorrhoids without Mention of Complic* 04/30/2009 Allergic Rhinitis, Cause Unspecified [J30.9] 01/13/2005 06/25/2015 Ingrowing Nail [L60.0] 03/20/2005 04/30/2009 Pain in Soft Tissues of Limb [M79.609] 03/20/2005 04/30/2009 CARPAL TUNNEL BILATERRAL [M13.149] 08/08/2005 09/29/2019 Nonspecific Abnormal Results of Liver Function *08/08/2005 04/30/2009 OVERWEIGHT [E66.9] 08/08/2005 04/30/2009 Dermatophytosis of Nail [B35.1] 09/04/2005 04/30/2009 Depression [F32.5] 12/18/2005 Anxiety state [F41.1] 12/18/2005 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] 03/23/2006 04/30/2009 Pain in Joint, Shoulder Region [M25.519] 05/22/2006 04/30/2009 Neck Sprain and Strain [S13.9XXA] 05/22/2006 04/30/2009 Onychia and Paronychia of Toe [L03.039] 08/11/2006 04/30/2009 Cellulitis and Abscess of Foot, except Toes [L0*08/24/2006 04/30/2009 Rheumatoid arthritis (HCC) [M06.9] 12/04/2006 Anemia, unspecified [D64.9] 12/04/2006 09/29/2019 Sleep apnea [G47.30] 03/08/2007 Acute Bronchitis [J20.9] 05/18/2008 04/30/2009 Tenosynovitis of Foot and Ankle [M65.979] 06/29/2008 04/30/2009 Vitamin deficiency [E56.9] 04/23/2009 Routine general medical examination at [facility]*04/30/2009 06/25/2015 Class: Chronic Routine gynecological examination [Z01.419] 04/30/2009 06/25/2015 Class: Chronic Diverticulosis of colon [K57.30] 04/30/2009 Cerebral infarction (HCC) [I63.9] 07/16/2009 Pain in joint, lower leg [M25.569] 01/21/2010 06/25/2015 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] 04/25/2010 Restless legs syndrome (RLS) [G25.81] 06/25/2010 Calcifying tendinitis of shoulder [M75.30] 07/09/2010 Venous insufficiency [I87.2] 09/08/2011 Thoracic or lumbosacral neuritis or radiculitis*03/01/2012 09/29/2019 Abnormality of gait [R26.9] 03/01/2012 06/25/2015 Vertigo [R42] 02/02/2013 06/25/2015 Cervicalgia [M54.2] 08/04/2014 Gait abnormality [R26.9] 08/04/2014 BPPV (benign paroxysmal positional vertigo) [H8*02/11/2015 09/29/2019 Obstructive sleep apnea syndrome [G47.33] 06/08/2015 Mixed hyperlipidemia [E78.2] 06/08/2015 GERD (gastroesophageal reflux disease) [K21.9] 08/09/2015 RLS (restless legs syndrome) [G25.81] 08/09/2015 Insomnia [G47.00] 08/09/2015 Vertigo [R42] 08/12/2015 09/29/2019 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/2015 Coronary artery disease [I25.10] 08/29/2015 Mild nonproliferative diabetic retinopathy of b*12/06/2018 Hypoglycemia unawareness in type 1 diabetes emre*01/18/2019 Other dysphagia [R13.19] 07/18/2019 09/29/2019 DKA (diabetic ketoacidoses) ([facility]) [E11.10] 09/28/2019 10/18/2020 Asthma [J45.909] 09/29/2019 SHERLYN (acute kidney injury) ([facility]) [N17.9] 09/29/2019 09/30/2019 H/O multiple allergies [Z88.9] 06/19/[address] [Z96.41] 07/10/2020 Type 1 diabetes mellitus with mild nonprolifera*10/18/2020 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. Fax confirmation received. Magalys Mera RN February 18, 2024 11:01 AM Allergies As of Date: 02/18/2024 Noted Allergy Reaction AMITRIPTYLINE 11/09/2012 14 - Other: See Comments Comments: Confusion, falls CYMBALTA (DULOXETINE) 06/07/2015 16 - Unknown DOXYCYCLINE 06/11/2011 8 - GI Upset Comments: headache EPHEDRINE 01/10/2005 14 - Other: See Comments Comments: tachycardia, but pt. states she still uses nose spray IODINE 07/29/2006 9 - Itching Comments: itching after prolonged use ISOLONE FORTE 04/06/2023 7 - Swelling LEVAQUIN (LEVOFLOXACIN) 05/26/2012 14 - Other: See Comments Comments: Achilles tendon problem LYRICA (PREGABALIN) 05/26/2012 14 - Other: See Comments Comments: Dizziness at 225mg twice daily OXYCODONE 01/21/2021 1 - Mental Status Change PERCOCET (OXYCODONE-ACETAMINOPHEN)05/29/2010 16 - Unknown SULFA (SULFONAMIDE ANTIBIOTICS) 01/10/2005 4 - Hives Comments: blisters AGGRENOX (ASPIRIN-DIPYRIDAMOLE) 12/18/2008 14 - Other: See Comments Comments: MIGRAINES AND VOMITING CEPHALEXIN (BULK) 05/12/2008 8 - GI Upset DURICEF (CEFADROXIL) 01/10/2005 4 - Hives NORTRIPTYLINE 02/11/2013 14 - Other: See Comments Comments: vertigo Date Reviewed: 02/16/2024 Reviewed by: Magalys Mera, RN - Fully Assessed Reason for Visit: Physician Order for Insulin Pump [Other] Prescriptions as of 02/18/2024 - Infusion Set for Insulin Pump (MEDTRONIC EXT INFUSION SET 23) iset 1 Each one time a week. - zolpidem (AMBIEN) 10 mg Take 1 tablet by mouth at bedtime as needed (insomnia) for up to 90 days. - amLODIPine (NORVASC) 5 mg tablet Take 1 tablet by mouth once daily. - benzonatate (TESSALON PERLES) 100 mg capsule Take 1 capsule by mouth three times a day as needed for cough. - hydrOXYchloroQUINE (PLAQUENIL) 200 mg tablet Take 1.5 tablets by mouth once daily. - nystatin (MYCOSTATIN) powder Apply 1 application to affected area three times a day. - clopidogrel (PLAVIX) 75 mg tablet Take 1 tablet by mouth once daily. - atorvastatin (LIPITOR) 40 mg tablet Take 1 tablet by mouth once daily. - pramipexole (MIRAPEX) 1 mg tablet Take 2 tablets by mouth daily at bedtime. - neomycin 500 mg tablet Take 1 tablet by mouth every 12 hours. - metoclopramide HCl (REGLAN) 5 mg tablet Take 1 tablet by mouth every 6 hours for 30 days; administer 30 minutes before a meal. - Insulin Syringe-Needle U-100 (BD INSULIN SYRINGE ULTRA-FINE) 1 mL 31 gauge x 09/02 Use 4 syringes daily if insulin pump fails - blood sugar diagnostic (ACCU-CHEK GUIDE TEST STRIPS) test strip Use with blood glucose test upto four times daily - insulin lispro (HUMALOG U-100 INSULIN) 100 unit/mL injection as directed in Insulin pump up to 110 units daily. Dx E10.65 - losartan (COZAAR) 100 mg tablet Take 1 tablet by mouth once daily. - diclofenac sodium (VOLTAREN ARTHRITIS PAIN TOPICAL) Apply 2 g to affected area as needed (pain). - lidocain-me.vkwebcx-qkwb-rkzrc 0.5-20-0.035-5 % ptmd Apply 1 Each to affected area as needed. - traMADol (ULTRAM) 50 mg tablet Take 50 mg by mouth every 6 hours as needed for pain. - albuterol HFA (PROVENTIL HFA, VENTOLIN HFA) 90 mcg/actuation inhaler Inhale 2 Puffs as instructed every 4 hours as needed for wheezing/shortness of breath. - WALKER ROLLATOR SEAT WITH 6 WHEELS - RED For ambulation - nitroglycerin (NITROLINGUAL) 400 mcg/spray spray one every 5 minutes x3 as needed - Bacillus coagulans/inulin (PROBIOTIC WITH PREBIOTIC ORAL) Take 1 capsule by mouth once daily. - aspirin 81 mg chewable tablet Take 1 tablet by mouth once daily. - Cholecalciferol, Vitamin D3, 125 mcg (5,000 unit) cap Take 1 capsule by mouth once daily. - Biotin 1 mg tab Take 1 tablet by mouth once daily. - multivitamin tablet Take 1 tablet by mouth once daily. - acetaminophen (TYLENOL 8 HOUR) 650 mg CR tablet Take 1 tablet by mouth every 8 hours as needed. Problem List As Of Date 02/18/2024 Noted Resolved Hyperlipidemia [E78.5] Hypertension [I10] Coronary artery disease involving [place]* 09/29/2019 Dizziness and Giddiness [R42] 04/30/2009 Postsurgical Percutaneous Transluminal Coronary* 04/30/2009 Mild intermittent asthma without complication [* 09/29/2019 Other psoriasis [L40.8] 09/29/2019 Disorder of bone and cartilage [M89.9, M94.9] 09/29/2019 ESOPHAGITIS [530.1] Diverticulosis of Colon (without Mention of Hem* 04/30/2009 External Hemorrhoids without Mention of Complic* 04/30/2009 Internal Hemorrhoids without Mention of Complic* 04/30/2009 Allergic Rhinitis, Cause Unspecified [J30.9] 01/13/2005 06/25/2015 Ingrowing Nail [L60.0] 03/20/2005 04/30/2009 Pain in Soft Tissues of Limb [M79.609] 03/20/2005 04/30/2009 CARPAL TUNNEL BILATERRAL [M13.149] 08/08/2005 09/29/2019 Nonspecific Abnormal Results of Liver Function *08/08/2005 04/30/2009 OVERWEIGHT [E66.9] 08/08/2005 04/30/2009 Dermatophytosis of Nail [B35.1] 09/04/2005 04/30/2009 Depression [F32.5] 12/18/2005 Anxiety state [F41.1] 12/18/2005 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] 03/23/2006 04/30/2009 Pain in Joint, Shoulder Region [M25.519] 05/22/2006 04/30/2009 Neck Sprain and Strain [S13.9XXA] 05/22/2006 04/30/2009 Onychia and Paronychia of Toe [L03.039] 08/11/2006 04/30/2009 Cellulitis and Abscess of Foot, except Toes [L0*08/24/2006 04/30/2009 Rheumatoid arthritis (HCC) [M06.9] 12/04/2006 Anemia, unspecified [D64.9] 12/04/2006 09/29/2019 Sleep apnea [G47.30] 03/08/2007 Acute Bronchitis [J20.9] 05/18/2008 04/30/2009 Tenosynovitis of Foot and Ankle [M65.979] 06/29/2008 04/30/2009 Vitamin deficiency [E56.9] 04/23/2009 Routine general medical examination at [facility]*04/30/2009 06/25/2015 Class: Chronic Routine gynecological examination [Z01.419] 04/30/2009 06/25/2015 Class: Chronic Diverticulosis of colon [K57.30] 04/30/2009 Cerebral infarction (HCC) [I63.9] 07/16/2009 Pain in joint, lower leg [M25.569] 01/21/2010 06/25/2015 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] 04/25/2010 Restless legs syndrome (RLS) [G25.81] 06/25/2010 Calcifying tendinitis of shoulder [M75.30] 07/09/2010 Venous insufficiency [I87.2] 09/08/2011 Thoracic or lumbosacral neuritis or radiculitis*03/01/2012 09/29/2019 Abnormality of gait [R26.9] 03/01/2012 06/25/2015 Vertigo [R42] 02/02/2013 06/25/2015 Cervicalgia [M54.2] 08/04/2014 Gait abnormality [R26.9] 08/04/2014 BPPV (benign paroxysmal positional vertigo) [H8*02/11/2015 09/29/2019 Obstructive sleep apnea syndrome [G47.33] 06/08/2015 Mixed hyperlipidemia [E78.2] 06/08/2015 GERD (gastroesophageal reflux disease) [K21.9] 08/09/2015 RLS (restless legs syndrome) [G25.81] 08/09/2015 Insomnia [G47.00] 08/09/2015 Vertigo [R42] 08/12/2015 09/29/2019 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/2015 Coronary artery disease [I25.10] 08/29/2015 Mild nonproliferative diabetic retinopathy of b*12/06/2018 Hypoglycemia unawareness in type 1 diabetes emre*01/18/2019 Other dysphagia [R13.19] 07/18/2019 09/29/2019 DKA (diabetic ketoacidoses) ([facility]) [E11.10] 09/28/2019 10/18/2020 Asthma [J45.909] 09/29/2019 SHERLYN (acute kidney injury) ([facility]) [N17.9] 09/29/2019 09/30/2019 H/O multiple allergies [Z88.9] 06/19/[address] [Z96.41] 07/10/2020 Type 1 diabetes mellitus with mild nonprolifera*10/18/2020 Type 1 diabetes mellitus with diabetic neuropat*10/18/2020 Class 2 severe obesity with serious comorbidity*10/18/2020 Bilateral carotid artery stenosis [I65.23] 05/10/2021 Encounter Status:Closed by MAGALYS MERA on 02/18/24 ROGER Observed: 02/17/2024 12:00 AM Status: COMPLETED Source: [facility] Telephone (ORTHWS) MCKAYLA RUSSO ([id number]) 1945 F Date Time Provider Department 02/17/24 EVA NIELSEN During your visit today, we recorded the following information about you: Chaya Mills MA 02/17/2024 10:37 AM Signed [place] pharmacist calling from [facility] and states a script was sent for an infusion set insulin pump. He is unable to provide as this is something they do not carry. Magalys Mera RN 02/17/2024 11:14 AM Signed All diabetic supply Rxs are to be sent to [facility]. Rx pended to correct pharmacy and sent to Dr. Nielsen. Magalys Mera RN February 17, 2024 11:13 AM Allergies As of Date: 02/17/2024 Noted Allergy Reaction AMITRIPTYLINE 11/09/2012 14 - Other: See Comments Comments: Confusion, falls CYMBALTA (DULOXETINE) 06/07/2015 16 - Unknown DOXYCYCLINE 06/11/2011 8 - GI Upset Comments: headache EPHEDRINE 01/10/2005 14 - Other: See Comments Comments: tachycardia, but pt. states she still uses nose spray IODINE 07/29/2006 9 - Itching Comments: itching after prolonged use ISOLONE FORTE 04/06/2023 7 - Swelling LEVAQUIN (LEVOFLOXACIN) 05/26/2012 14 - Other: See Comments Comments: Achilles tendon problem LYRICA (PREGABALIN) 05/26/2012 14 - Other: See Comments Comments: Dizziness at 225mg twice daily OXYCODONE 01/21/2021 1 - Mental Status Change PERCOCET (OXYCODONE-ACETAMINOPHEN)05/29/2010 16 - Unknown SULFA (SULFONAMIDE ANTIBIOTICS) 01/10/2005 4 - Hives Comments: blisters AGGRENOX (ASPIRIN-DIPYRIDAMOLE) 12/18/2008 14 - Other: See Comments Comments: MIGRAINES AND VOMITING CEPHALEXIN (BULK) 05/12/2008 8 - GI Upset DURICEF (CEFADROXIL) 01/10/2005 4 - Hives NORTRIPTYLINE 02/11/2013 14 - Other: See Comments Comments: vertigo Date Reviewed: 02/16/2024 Reviewed by: Magalys Mera RN - Fully Assessed Visit Diagnoses: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) [E10.3293] Gastroparesis due to secondary diabetes (HCC) [E13.43] Type 1 diabetes mellitus with polyneuropathy (HCC) [E10.42] Order(s):Infusion Set for Insulin Pump (MEDTRONIC EXT INFUSION SET 23) iset1 Each one time a week.Disp: 20 EachRfl: 2 Prescriptions as of 02/19/2024 - Infusion Set for Insulin Pump (MEDTRONIC EXT INFUSION SET 23) iset 1 Each one time a week. - zolpidem (AMBIEN) 10 mg Take 1 tablet by mouth at bedtime as needed (insomnia) for up to 90 days. - amLODIPine (NORVASC) 5 mg tablet Take 1 tablet by mouth once daily. - benzonatate (TESSALON PERLES) 100 mg capsule Take 1 capsule by mouth three times a day as needed for cough. - hydrOXYchloroQUINE (PLAQUENIL) 200 mg tablet Take 1.5 tablets by mouth once daily. - nystatin (MYCOSTATIN) powder Apply 1 application to affected area three times a day. - clopidogrel (PLAVIX) 75 mg tablet Take 1 tablet by mouth once daily. - atorvastatin (LIPITOR) 40 mg tablet Take 1 tablet by mouth once daily. - pramipexole (MIRAPEX) 1 mg tablet Take 2 tablets by mouth daily at bedtime. - neomycin 500 mg tablet Take 1 tablet by mouth every 12 hours. - metoclopramide HCl (REGLAN) 5 mg tablet Take 1 tablet by mouth every 6 hours for 30 days; administer 30 minutes before a meal. - Insulin Syringe-Needle U-100 (BD INSULIN SYRINGE ULTRA-FINE) 1 mL 31 gauge x 16 Use 4 syringes daily if insulin pump fails - blood sugar diagnostic (ACCU-CHEK GUIDE TEST STRIPS) test strip Use with blood glucose test upto four times daily - insulin lispro (HUMALOG U-100 INSULIN) 100 unit/mL injection as directed in Insulin pump up to 110 units daily. Dx E10.65 - losartan (COZAAR) 100 mg tablet Take 1 tablet by mouth once daily. - diclofenac sodium (VOLTAREN ARTHRITIS PAIN TOPICAL) Apply 2 g to affected area as needed (pain). - lidocain-me.ichyxll-gjjd-rjwuh 0.5-20-0.035-5 % ptmd Apply 1 Each to affected area as needed. - traMADol (ULTRAM) 50 mg tablet Take 50 mg by mouth every 6 hours as needed for pain. - albuterol HFA (PROVENTIL HFA, VENTOLIN HFA) 90 mcg/actuation inhaler Inhale 2 Puffs as instructed every 4 hours as needed for wheezing/shortness of breath. - WALKER ROLLATOR SEAT WITH 6 WHEELS - RED For ambulation - nitroglycerin (NITROLINGUAL) 400 mcg/spray spray one every 5 minutes x3 as needed - Bacillus coagulans/inulin (PROBIOTIC WITH PREBIOTIC ORAL) Take 1 capsule by mouth once daily. - aspirin 81 mg chewable tablet Take 1 tablet by mouth once daily. - Cholecalciferol, Vitamin D3, 125 mcg (5,000 unit) cap Take 1 capsule by mouth once daily. - Biotin 1 mg tab Take 1 tablet by mouth once daily. - multivitamin tablet Take 1 tablet by mouth once daily. - acetaminophen (TYLENOL 8 HOUR) 650 mg CR tablet Take 1 tablet by mouth every 8 hours as needed. Problem List As Of Date 02/17/2024 Noted Resolved Hyperlipidemia [E78.5] Hypertension [I10] Coronary artery disease involving [place]* 09/29/2019 Dizziness and Giddiness [R42] 04/30/2009 Postsurgical Percutaneous Transluminal Coronary* 04/30/2009 Mild intermittent asthma without complication [* 09/29/2019 Other psoriasis [L40.8] 09/29/2019 Disorder of bone and cartilage [M89.9, M94.9] 09/29/2019 ESOPHAGITIS [530.1] Diverticulosis of Colon (without Mention of Hem* 04/30/2009 External Hemorrhoids without Mention of Complic* 04/30/2009 Internal Hemorrhoids without Mention of Complic* 04/30/2009 Allergic Rhinitis, Cause Unspecified [J30.9] 01/13/2005 06/25/2015 Ingrowing Nail [L60.0] 03/20/2005 04/30/2009 Pain in Soft Tissues of Limb [M79.609] 03/20/2005 04/30/2009 CARPAL TUNNEL BILATERRAL [M13.149] 08/08/2005 09/29/2019 Nonspecific Abnormal Results of Liver Function *08/08/2005 04/30/2009 OVERWEIGHT [E66.9] 08/08/2005 04/30/2009 Dermatophytosis of Nail [B35.1] 09/04/2005 04/30/2009 Depression [F32.5] 12/18/2005 Anxiety state [F41.1] 12/18/2005 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] 03/23/2006 04/30/2009 Pain in Joint, Shoulder Region [M25.519] 05/22/2006 04/30/2009 Neck Sprain and Strain [S13.9XXA] 05/22/2006 04/30/2009 Onychia and Paronychia of Toe [L03.039] 08/11/2006 04/30/2009 Cellulitis and Abscess of Foot, except Toes [L0*08/24/2006 04/30/2009 Rheumatoid arthritis (HCC) [M06.9] 12/04/2006 Anemia, unspecified [D64.9] 12/04/2006 09/29/2019 Sleep apnea [G47.30] 03/08/2007 Acute Bronchitis [J20.9] 05/18/2008 04/30/2009 Tenosynovitis of Foot and Ankle [M65.979] 06/29/2008 04/30/2009 Vitamin deficiency [E56.9] 04/23/2009 Routine general medical examination at [facility]*04/30/2009 06/25/2015 Class: Chronic Routine gynecological examination [Z01.419] 04/30/2009 06/25/2015 Class: Chronic Diverticulosis of colon [K57.30] 04/30/2009 Cerebral infarction (HCC) [I63.9] 07/16/2009 Pain in joint, lower leg [M25.569] 01/21/2010 06/25/2015 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] 04/25/2010 Restless legs syndrome (RLS) [G25.81] 06/25/2010 Calcifying tendinitis of shoulder [M75.30] 07/09/2010 Venous insufficiency [I87.2] 09/08/2011 Thoracic or lumbosacral neuritis or radiculitis*03/01/2012 09/29/2019 Abnormality of gait [R26.9] 03/01/2012 06/25/2015 Vertigo [R42] 02/02/2013 06/25/2015 Cervicalgia [M54.2] 08/04/2014 Gait abnormality [R26.9] 08/04/2014 BPPV (benign paroxysmal positional vertigo) [H8*02/11/2015 09/29/2019 Obstructive sleep apnea syndrome [G47.33] 06/08/2015 Mixed hyperlipidemia [E78.2] 06/08/2015 GERD (gastroesophageal reflux disease) [K21.9] 08/09/2015 RLS (restless legs syndrome) [G25.81] 08/09/2015 Insomnia [G47.00] 08/09/2015 Vertigo [R42] 08/12/2015 09/29/2019 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/2015 Coronary artery disease [I25.10] 08/29/2015 Mild nonproliferative diabetic retinopathy of b*12/06/2018 Hypoglycemia unawareness in type 1 diabetes emre*01/18/2019 Other dysphagia [R13.19] 07/18/2019 09/29/2019 DKA (diabetic ketoacidoses) ([facility]) [E11.10] 09/28/2019 10/18/2020 Asthma [J45.909] 09/29/2019 SHERLYN (acute kidney injury) ([facility]) [N17.9] 09/29/2019 09/30/2019 H/O multiple allergies [Z88.9] 06/19/[address] [Z96.41] 07/10/2020 Type 1 diabetes mellitus with mild nonprolifera*10/18/2020 Type 1 diabetes mellitus with diabetic neuropat*10/18/2020 Class 2 severe obesity with serious comorbidity*10/18/2020 Bilateral carotid artery stenosis [I65.23] 05/10/2021 Prescriptions ordered this encounter Disp Refills Start End MEDTRONIC EXTENDED INFUSION SET 23 20 E* 2 02/18/2024 Route: Misc Si Each one time a week. Medications Discontinued During This Encounter Prescriptions - Infusion Set for Insulin Pump (MEDTRONIC EXT INFUSION SET 23) iset (Discontinued) 1 Each one time a week. Encounter Status:Closed by EVA NIELSEN on 02/18/24 PROGRESS Observed: 02/16/2024 11:44 AM Status: COMPLETED Source: [facility] ID: [id number] Author: EVA NIELSEN MD Service: ? Author Type: Physician Type: Progress Notes Filed: 02/16/2024 19:32 Note Text: [facility] Follow up visit Note History of present illness: This is a 78 year old female with history of type 1 diabetes, complicated by mild nonproliferative retinopathy of bilateral retina, Class I obesity, 3 strokes (2009, 2012), Bilateral carotid artery stenosis, CAD, HLD, HTN, SOLE, GERD, RA, Gastroparesis She is accompanied by her today, who is a type II diabetic. She was following Dr. Palm at [facility] in the recent past, last appointment in April 2023. Prior to that, she was following with endocrinology at [facility], last appointment in October 2020 with Princess Lim APRN. [facility] with me was 09/15/23 Documentation from previous note of previous visit was copied and pasted and has been reviewed and edited as appropriate and is current for today. History in brief, -Initially diagnosed: at the age of 19 years -Circumstances around diagnosis: she had symptoms of hyperglycemia with severe . -Duration of diabetes: -Length of time on oral medications before switching to insulin: -Duration of insulin use: Started pump almost 25 years ago, when she was following with Dr. Mancilla Uses pump on the abdomen, and CGMS on her thigh -Hospitalizations for DKA: when she was on a different pump which was not automated Known complications include: hypertension, retinopathy, peripheral neuropathy and cardiovascular disease (CAD s/p PTCA) , CVA, gastroparesis on gastric emptying study following Dr. Dyer at [facility] [place] Exacerbating factors include: obesity Last NEIL/Retina Eval: Apr 21, 2023 Nephropathy -- Yes STEFFANY/ARB Use -- Yes She was following with podiatry, Dr. Zhao Other -- Wheelchair bound due to stroke Current diabetes regimen is as follows: Basal insulin for back up: lantus Glucagon: denies Humalog via Medtronic 780 G pump plus Guardian sensor Basal rate: 00:00= 1.40 0230= 1.40 0600= 1.45 0900=2.60 1930= 2.50 Total basal rate in 24 hours= 53.55 units Bolus: Insulin:carb ratio 00:00= 7.5 Sensitivity 00:00= 40 Blood glucose target= 110 mg/dL 00:00= 130 Active insulin time 2 hours carbs entered per day 80?47 g Changing pump site every 2 days Changing sensor every 7 days . Symptoms -Polyuria: no -Polydipsia: no -Weight changes: fluctuating Right knee pain due to a fall, taking steroid shots due to pain intermittently . Lifestyle -Exercise: no routine exercise due to fall leading to mobility issues -Diet: reports carb consistent diet She has seen Nutrition services at [facility], and reports that it was not very beneficial, she saw dietitian at [facility] who started her on a gastroparesis nutritional plan Interval history since last visit : I told her in the past twice (including on the most recent visit in 10/2023) that her pump might be malfunctioned and to call [employer]. When she did she was apparently told that the physician might be mistaken She also reports today that the infusion set is only lasting for 2 days before she received notification to change, she is running out of supplies She had a dietitian visit yesterday and was told by dietitian also that her pump is malfunctioned. She was also told that there might be some issues with her pump by our RN at diabetes education seen in 12/2023 She has also received steroid injections for joint pains in the past and she complains of ongoing pain ROS: As per HPI Past Medical History PAST MEDICAL HISTORY Diagnosis Date Abnormal mammogram, unspecified left breast BPPV (benign paroxysmal positional vertigo) 02/11/2015 BPV (benign positional vertigo) CAD (coronary artery disease) Carotid stenosis CARPAL TUNNEL BILATERRAL 08/08/2005 Coronary artery disease involving [place] coronary artery Dr. 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 ([facility]) 12/06/2018 Other and unspecified hyperlipidemia Other forms of migraine Other psoriasis Postsurgical percutaneous transluminal coronary angioplasty status Rheumatoid arthritis(714.0) RLS (restless legs syndrome) Stroke (cerebrum) ([facility]) x3 Thoracic or lumbosacral neuritis or radiculitis, unspecified 03/01/2012 Type I (juvenile type) diabetes mellitus with neurological manifestations, not stated as 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.61) 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, 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) Unspecified asthma(493.90) Unspecified essential hypertension Unspecified hereditary and idiopathic peripheral neuropathy Past Surgical History PAST SURGICAL HISTORY Procedure Laterality Date BREAST [...] STEREOTACTIC CORE BIOPSY 02/24/08 LEFT - benign Family History FAMILY HISTORY Problem Relation Age of Onset Cancer Mother breast (diagnosed mid 50's) Heart Mother valvular other (Other) Father leukemia (dx'd age 55) Asthma Paternal Grandmother Diabetes Paternal Grandmother Colon Cancer Other none other (autoimmune def) Daughter Social History Social History Tobacco Use Smoking status: Never Smokeless tobacco: Never Vaping Use Vaping status: Never Used Substance Use Topics Alcohol use: No Drug use: No Allergies ALLERGIES Allergen Reactions Amitriptyline Other: See Comments Confusion, falls Cymbalta [Duloxetin* Unknown Doxycycline GI Upset headache Ephedrine Other: See Comments tachycardia, but pt. states she still uses nose spray Iodine Itching itching after prolonged use Isolone Forte Swelling Levaquin [Levofloxa* Other: See Comments Achilles tendon problem Lyrica [Pregabalin] Other: See Comments Dizziness at 225mg twice daily Oxycodone Mental Status Change Percocet [Oxycodone* Unknown Sulfa (Sulfonamide * Hives blisters Aggrenox [Aspirin-D* Other: See Comments MIGRAINES AND VOMITING Cephalexin (Bulk) GI Upset Duricef [Cefadroxil] Hives Nortriptyline Other: See Comments vertigo Current Medications Current Outpatient Medications Medication Sig Dispense Refill zolpidem (AMBIEN) 10 mg Take 1 tablet by mouth at bedtime as needed (insomnia) for up to 90 days. 30 tablet 2 amLODIPine (NORVASC) 5 mg tablet Take 1 tablet by mouth once daily. 90 tablet 3 benzonatate (TESSALON PERLES) 100 mg capsule Take 1 capsule by mouth three times a day as needed for cough. 30 capsule 0 hydrOXYchloroQUINE (PLAQUENIL) 200 mg tablet Take 1.5 tablets by mouth once daily. 135 tablet 1 nystatin (MYCOSTATIN) powder Apply 1 application to affected area three times a day. 30 g 3 clopidogrel (PLAVIX) 75 mg tablet Take 1 tablet by mouth once daily. 90 tablet 3 atorvastatin (LIPITOR) 40 mg tablet Take 1 tablet by mouth once daily. 90 tablet 3 pramipexole (MIRAPEX) 1 mg tablet Take 2 tablets by mouth daily at bedtime. 180 tablet 1 metoclopramide HCl (REGLAN) 5 mg tablet Take 1 tablet by mouth every 6 hours for 30 days; administer 30 minutes before a meal. Insulin Syringe-Needle U-100 (BD INSULIN SYRINGE ULTRA-FINE) 1 mL 31 gauge x 5/16 Use 4 syringes daily if insulin pump fails 100 Each 1 blood sugar diagnostic (ACCU-CHEK GUIDE TEST STRIPS) test strip Use with blood glucose test upto four times daily 200 Each 1 insulin lispro (HUMALOG U-100 INSULIN) 100 unit/mL injection as directed in Insulin pump up to 110 units daily. Dx E10.65 10 mL 3 losartan (COZAAR) 100 mg tablet Take 1 tablet by mouth once daily. 90 tablet 1 diclofenac sodium (VOLTAREN ARTHRITIS PAIN TOPICAL) Apply 2 g to affected area as needed (pain). lidocain-me.dcvftxs-fqif-aiduo 0.5-20-0.035-5 % ptmd Apply 1 Each to affected area as needed. traMADol (ULTRAM) 50 mg tablet Take 50 mg by mouth every 6 hours as needed for pain. albuterol HFA (PROVENTIL HFA, VENTOLIN HFA) 90 mcg/actuation inhaler Inhale 2 Puffs as instructed every 4 hours as needed for wheezing/shortness of breath. WALKER ROLLATOR SEAT WITH 6 WHEELS - RED For ambulation 1 Each 0 nitroglycerin (NITROLINGUAL) 400 mcg/spray spray one every 5 minutes x3 as needed (Patient taking differently: Dissolve 1 [place] under the tongue every 5 minutes as needed for chest pain.) 4.9 g 3 Bacillus coagulans/inulin (PROBIOTIC WITH PREBIOTIC ORAL) Take 1 capsule by mouth once daily. aspirin 81 mg chewable tablet Take 1 tablet by mouth once daily. 30 tablet 11 Cholecalciferol, Vitamin D3, 125 mcg (5,000 unit) cap Take 1 capsule by mouth once daily. 90 capsule 3 Biotin 1 mg tab Take 1 tablet by mouth once daily. 30 tablet 0 multivitamin tablet Take 1 tablet by mouth once daily. 0 acetaminophen (TYLENOL 8 HOUR) 650 mg CR tablet Take 1 tablet by mouth every 8 hours as needed. neomycin 500 mg tablet Take 1 tablet by mouth every 12 hours. (Patient not taking: Reported on 11/25/2023) No current facility-administered medications for this visit. Labs Hemoglobin A1C Date Value Ref Range Status 09/01/2023 7.8 (H) 4.3 - 5.6 % Final Comment: [place] [employer] guidelines indicate that patients with HgbA1c in the range 5.7-6.4% are at increased risk for development of diabetes, and intervention by lifestyle modification may be beneficial. HgbA1c greater or equal to 6.5% is considered diagnostic of diabetes. Albumin/Creat Ratio Date Value Ref Range Status 09/01/2023 18 <30 mg/g Final Comment: Adult Male and Female Nephrotic Criteria: <30 mg/g is considered normal to mildly increased 30-300 mg/g is considered moderately increased >300 mg/g is considered severely increased KDIGO. (2013). KDIGO 2012 Clinical Practice Guideline for the Evaluation and Management of Chronic Kidney Disease. Official Journal of the International Society of Nephrology, 3(1), 1-150. Cholesterol, Total Date Value Ref Range Status 09/01/2023 122 <200 mg/dL Final Comment: <200 mg/dL, Desirable 200-239 mg/dL, Borderline high >239 mg/dL, High HDL Cholesterol Date Value Ref Range Status 09/01/2023 61 >39 mg/dL Final Comment: 40-59 mg/dL, Acceptable >59 mg/dL, High: Negative risk factor for coronary heart disease <40 mg/dL, Low: Positive risk factor for coronary heart disease LDL Cholesterol Date Value Ref Range Status 09/01/2023 49 <100 mg/dL Final Comment: <100 mg/dL, Optimal 100-129 mg/dL, Near optimal/above optimal 130-159 mg/dL, Borderline high 160-189 mg/dL, High >189 mg/dL, Very high Secondary prevention optimal LDL Cholesterol levels are recommended to be < 70 mg/dL Triglyceride Date Value Ref Range Status 09/01/2023 62 <150 mg/dL Final Comment: <150 mg/dL, Normal 150-199 mg/dL, Borderline high 200-499 mg/dL, High >499 mg/dL, Very high Vitals: 02/16/24 1142 BP: 120/82 BP Site: Right Arm BP Position: Sitting BP Cuff Size: Regular Adult Pulse: 80 Resp: 20 SpO2: 98% Weight: 72.1 kg (159 lb) Height: 154.9 cm (5' 1) Physical Exam GENERAL: Well nourished, obese, well hydrated, in no distress and oriented x 3. She is walking with the help of walker today EYES: no thyroid eye signs, EOMI NECK: , no tenderness and adenopathy THYROID: Non-tender to palpable, no evidence of goiter, no nodules palpable LUNGS: Unlabored on room air HEART: regular rate and rhythm Abdomen: pump sites without lipodystrophy NEURO: normal strength, no tremor SKIN: facial hair noted OTHER: Acanthosis None Assessment and Plan This is a 78-year-old female with past medical history of type 1 diabetes mellitus on Medtronic 780G pump with guardian sensor, retinopathy, peripheral neuropathy and cardiovascular disease (CAD s/p PTCA) , hypertension, CVA, gastroparesis presenting for evaluation and treatment. She also has a history of rheumatoid arthritis Type 1 diabetes with NPDR, neuropathy, gastroparesis on 780 G medtronic insulin pump: -A1c 6.8% today, improved from 7.8% in 08/2023, after she started following instructions for insulin dosing as instructed regarding gastroparesis -eGFR 91 in 08/2023 Plan: - No changes made to pump settings today - advised to contact [employer] regarding early change of infusion sets I discussed about giving insulin shots if pump malfunctions- discussed basal insulin, and bolus as well as correction scale to be taken in pump failure She has seen dietitian at [facility] and was given gastroparesis associated dietary changes Seen dietitian here, and diabetes education as well - she declined refills for insulin but requests for infusion sets, script sent Again advised to calculate the carbs before each meal and take adequate insulin dose accordingly- can take half dose at the start of meal and the rest after completing the meal, especially if she has good appetite and intends to eat the whole meal. If appetite is low, advised to eat first and then take insulin according to the amount of carbs consumed. Discussed again to take correction dose of insulin for Blood glucose above 180 mg/dl- 1 unit for every 40 mg/dl above 180mg/dl -Lifestyle modifications with diet and activity as tolerated have been discussed with the patient --Baqsimi sent to pharmacy on previous visit- but reports it is too expensive, an does not want to buy- advised patient to avoid hypoglycemias as much as possible, and given she is on pump, hypoglycemia is less likely to be profound to need emergency glucagon # Hypertension -Currently antihypertensive regimen: Amlodipine 5 mg once daily - managed by PCP # Extensive cardiovascular history, including CAD and CVA -On Lipitor 40 mg once daily Lipid panel in 08/2023 revealing total cholesterol 122 mg/dL, LDL 49 mg/dL, triglycerides 62 mg/dL #Obesity Class II with serious comobidity -Lifestyle modifications and diabetic control discussed as above RTC in 3 months. Patient talk for a long time about multiple things, not necessarily questions or related to her diabetes She will be requested to take a 40 min slot to avoid getting late for the patient following her appt I spent a total of 50 minutes on the date of the service which included preparing to see the patient, [id number] patient care, completing clinical documentation, obtaining and/or reviewing separately obtained history, performing a medically appropriate examination, counseling and educating the patient/family/caregiver, ordering medications, tests, or procedures, and independently interpreting results (not separately reported). Eva Nielsen MD Endocrinology Associate Staff [facility] AND Surgery [facility] Endocrinology and Metabolism [place] [phone] CNOV Observed: 02/16/2024 11:40 AM Status: COMPLETED Source: [facility] Office Visit (ENWSTR) MCKAYLA RUSSO ([id number]) 1945 F Date Time Provider Department 02/16/24 11:40 AM EVA NIELSEN ENWSTR During your visit today, we recorded the following information about you: Pulse Respiration Blood pressure Weight 80/minute 20/minute 120/82 72.1 kg Height 1.549 m Eva Nielsen MD 02/16/2024 7:32 PM Signed [facility] Follow up visit Note History of present illness: This is a 78 year old female with history of type 1 diabetes, complicated by mild nonproliferative retinopathy of bilateral retina, Class I obesity, 3 strokes (2009, 2012), Bilateral carotid artery stenosis, CAD, HLD, HTN, SOLE, GERD, RA, Gastroparesis She is accompanied by her today, who is a type II diabetic. She was following Dr. Palm at [facility] in the recent past, last appointment in April 2023. Prior to that, she was following with endocrinology at [facility], last appointment in October 2020 with Princess Lim APRN. [facility] with me was 09/15/23 Documentation from previous note of previous visit was copied and pasted and has been reviewed and edited as appropriate and is current for today. History in brief, -Initially diagnosed: at the age of 19 years -Circumstances around diagnosis: she had symptoms of hyperglycemia with severe . -Duration of diabetes: -Length of time on oral medications before switching to insulin: -Duration of insulin use: Started pump almost 25 years ago, when she was following with Dr. Mancilla Uses pump on the abdomen, and CGMS on her thigh -Hospitalizations for DKA: when she was on a different pump which was not automated Known complications include: hypertension, retinopathy, peripheral neuropathy and cardiovascular disease (CAD s/p PTCA) , CVA, gastroparesis on gastric emptying study following Dr. Dyer at [facility] [place] Exacerbating factors include: obesity Last NEIL/Retina Eval: Apr 21, 2023 Nephropathy -- Yes STEFFANY/ARB Use -- Yes She was following with podiatry, Dr. Zhao Other -- Wheelchair bound due to stroke Current diabetes regimen is as follows: Basal insulin for back up: lantus Glucagon: denies Humalog via Medtronic 780 G pump plus Guardian sensor Basal rate: 00:00= 1.40 0230= 1.40 0600= 1.45 0900=2.60 1930= 2.50 Total basal rate in 24 hours= 53.55 units Bolus: Insulin:carb ratio 00:00= 7.5 Sensitivity 00:00= 40 Blood glucose target= 110 mg/dL 00:00= 130 Active insulin time 2 hours carbs entered per day 80?47 g Changing pump site every 2 days Changing sensor every 7 days . Symptoms -Polyuria: no -Polydipsia: no -Weight changes: fluctuating Right knee pain due to a fall, taking steroid shots due to pain intermittently . Lifestyle -Exercise: no routine exercise due to fall leading to mobility issues -Diet: reports carb consistent diet She has seen Nutrition services at [facility], and reports that it was not very beneficial, she saw dietitian at [facility] who started her on a gastroparesis nutritional plan Interval history since last visit : I told her in the past twice (including on the most recent visit in 10/2023) that her pump might be malfunctioned and to call [employer]. When she did she was apparently told that the physician might be mistaken She also reports today that the infusion set is only lasting for 2 days before she received notification to change, she is running out of supplies She had a dietitian visit yesterday and was told by dietitian also that her pump is malfunctioned. She was also told that there might be some issues with her pump by our RN at diabetes education seen in 12/2023 She has also received steroid injections for joint pains in the past and she complains of ongoing pain ROS: As per HPI Past Medical History PAST MEDICAL HISTORY Diagnosis Date Abnormal mammogram, unspecified left breast BPPV (benign paroxysmal positional vertigo) 02/11/2015 BPV (benign positional vertigo) CAD (coronary artery disease) Carotid stenosis CARPAL TUNNEL BILATERRAL 08/08/2005 Coronary artery disease involving [place] coronary artery Dr. 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 ([facility]) 12/06/2018 Other and unspecified hyperlipidemia Other forms [...] hypertension Unspecified hereditary and idiopathic peripheral neuropathy Past Surgical History PAST SURGICAL HISTORY Procedure Laterality Date BREAST [...] STEREOTACTIC CORE BIOPSY 02/24/08 LEFT - benign Family History FAMILY HISTORY Problem Relation Age of Onset Cancer Mother breast (diagnosed mid 50's) Heart Mother valvular other (Other) Father leukemia (dx'd age 55) Asthma Paternal Grandmother Diabetes Paternal Grandmother Colon Cancer Other none other (autoimmune def) Daughter Social History Social History Tobacco Use Smoking status: Never Smokeless tobacco: Never Vaping Use Vaping status: Never Used Substance Use Topics Alcohol use: No Drug use: No Allergies ALLERGIES Allergen Reactions Amitriptyline Other: See Comments Confusion, falls Cymbalta [Duloxetin* Unknown Doxycycline GI Upset headache Ephedrine Other: See Comments tachycardia, but pt. states she still uses nose spray Iodine Itching itching after prolonged use Isolone Forte Swelling Levaquin [Levofloxa* Other: See Comments Achilles tendon problem Lyrica [Pregabalin] Other: See Comments Dizziness at 225mg twice daily Oxycodone Mental Status Change Percocet [Oxycodone* Unknown Sulfa (Sulfonamide * Hives blisters Aggrenox [Aspirin-D* Other: See Comments MIGRAINES AND VOMITING Cephalexin (Bulk) GI Upset Duricef [Cefadroxil] Hives Nortriptyline Other: See Comments vertigo Current Medications Current Outpatient Medications Medication Sig Dispense Refill zolpidem (AMBIEN) 10 mg Take 1 tablet by mouth at bedtime as needed (insomnia) for up to 90 days. 30 tablet 2 amLODIPine (NORVASC) 5 mg tablet Take 1 tablet by mouth once daily. 90 tablet 3 benzonatate (TESSALON PERLES) 100 mg capsule Take 1 capsule by mouth three times a day as needed for cough. 30 capsule 0 hydrOXYchloroQUINE (PLAQUENIL) 200 mg tablet Take 1.5 tablets by mouth once daily. 135 tablet 1 nystatin (MYCOSTATIN) powder Apply 1 application to affected area three times a day. 30 g 3 clopidogrel (PLAVIX) 75 mg tablet Take 1 tablet by mouth once daily. 90 tablet 3 atorvastatin (LIPITOR) 40 mg tablet Take 1 tablet by mouth once daily. 90 tablet 3 pramipexole (MIRAPEX) 1 mg tablet Take 2 tablets by mouth daily at bedtime. 180 tablet 1 metoclopramide HCl (REGLAN) 5 mg tablet Take 1 tablet by mouth every 6 hours for 30 days; administer 30 minutes before a meal. Insulin Syringe-Needle U-100 (BD INSULIN SYRINGE ULTRA-FINE) 1 mL 31 gauge x 5/16 Use 4 syringes daily if insulin pump fails 100 Each 1 blood sugar diagnostic (ACCU-CHEK GUIDE TEST STRIPS) test strip Use with blood glucose test upto four times daily 200 Each 1 insulin lispro (HUMALOG U-100 INSULIN) 100 unit/mL injection as directed in Insulin pump up to 110 units daily. Dx E10.65 10 mL 3 losartan (COZAAR) 100 mg tablet Take 1 tablet by mouth once daily. 90 tablet 1 diclofenac sodium (VOLTAREN ARTHRITIS PAIN TOPICAL) Apply 2 g to affected area as needed (pain). lidocain-me.snoqlqu-rxpn-iuxbe 0.5-20-0.035-5 % ptmd Apply 1 Each to affected area as needed. traMADol (ULTRAM) 50 mg tablet Take 50 mg by mouth every 6 hours as needed for pain. albuterol HFA (PROVENTIL HFA, VENTOLIN HFA) 90 mcg/actuation inhaler Inhale 2 Puffs as instructed every 4 hours as needed for wheezing/shortness of breath. WALKER ROLLATOR SEAT WITH 6 WHEELS - RED For ambulation 1 Each 0 nitroglycerin (NITROLINGUAL) 400 mcg/spray spray one every 5 minutes x3 as needed (Patient taking differently: Dissolve 1 [place] under the tongue every 5 minutes as needed for chest pain.) 4.9 g 3 Bacillus coagulans/inulin (PROBIOTIC WITH PREBIOTIC ORAL) Take 1 capsule by mouth once daily. aspirin 81 mg chewable tablet Take 1 tablet by mouth once daily. 30 tablet 11 Cholecalciferol, Vitamin D3, 125 mcg (5,000 unit) cap Take 1 capsule by mouth once daily. 90 capsule 3 Biotin 1 mg tab Take 1 tablet by mouth once daily. 30 tablet 0 multivitamin tablet Take 1 tablet by mouth once daily. 0 acetaminophen (TYLENOL 8 HOUR) 650 mg CR tablet Take 1 tablet by mouth every 8 hours as needed. neomycin 500 mg tablet Take 1 tablet by mouth every 12 hours. (Patient not taking: Reported on 11/25/2023) No current facility-administered medications for this visit. Labs Hemoglobin A1C Date Value Ref Range Status 09/01/2023 7.8 (H) 4.3 - 5.6 % Final Comment: [place] [employer] guidelines indicate that patients with HgbA1c in the range 5.7-6.4% are at increased risk for development of diabetes, and intervention by lifestyle modification may be beneficial. HgbA1c greater or equal to 6.5% is considered diagnostic of diabetes. Albumin/Creat Ratio Date Value Ref Range Status 09/01/2023 18 <30 mg/g Final Comment: Adult Male and Female Nephrotic Criteria: <30 mg/g is considered normal to mildly increased 30-300 mg/g is considered moderately increased >300 mg/g is considered severely increased KDIGO. (2013). KDIGO 2012 Clinical Practice Guideline for the Evaluation and Management of Chronic Kidney Disease. Official Journal of the International Society of Nephrology, 3(1), 1-150. Cholesterol, Total Date Value Ref Range Status 09/01/2023 122 <200 mg/dL Final Comment: <200 mg/dL, Desirable 200-239 mg/dL, Borderline high >239 mg/dL, High HDL Cholesterol Date Value Ref Range Status 09/01/2023 61 >39 mg/dL Final Comment: 40-59 mg/dL, Acceptable >59 mg/dL, High: Negative risk factor for coronary heart disease <40 mg/dL, Low: Positive risk factor for coronary heart disease LDL Cholesterol Date Value Ref Range Status 09/01/2023 49 <100 mg/dL Final Comment: <100 mg/dL, Optimal 100-129 mg/dL, Near optimal/above optimal 130-159 mg/dL, Borderline high 160-189 mg/dL, High >189 mg/dL, Very high Secondary prevention optimal LDL Cholesterol levels are recommended to be < 70 mg/dL Triglyceride Date Value Ref Range Status 09/01/2023 62 <150 mg/dL Final Comment: <150 mg/dL, Normal 150-199 mg/dL, Borderline high 200-499 mg/dL, High >499 mg/dL, Very high Vitals: 02/16/24 1142 BP: 120/82 BP Site: Right Arm BP Position: Sitting BP Cuff Size: Regular Adult Pulse: 80 Resp: 20 SpO2: 98% Weight: 72.1 kg (159 lb) Height: 154.9 cm (5' 1) Physical Exam GENERAL: Well nourished, obese, well hydrated, in no distress and oriented x 3. She is walking with the help of walker today EYES: no thyroid eye signs, EOMI NECK: , no tenderness and adenopathy THYROID: Non-tender to palpable, no evidence of goiter, no nodules palpable LUNGS: Unlabored on room air HEART: regular rate and rhythm Abdomen: pump sites without lipodystrophy NEURO: normal strength, no tremor SKIN: facial hair noted OTHER: Acanthosis None Assessment and Plan This is a 78-year-old female with past medical history of type 1 diabetes mellitus on Medtronic 780G pump with guardian sensor, retinopathy, peripheral neuropathy and cardiovascular disease (CAD s/p PTCA) , hypertension, CVA, gastroparesis presenting for evaluation and treatment. She also has a history of rheumatoid arthritis Type 1 diabetes with NPDR, neuropathy, gastroparesis on 780 G medtronic insulin pump: -A1c 6.8% today, improved from 7.8% in 08/2023, after she started following instructions for insulin dosing as instructed regarding gastroparesis -eGFR 91 in 08/2023 Plan: - No changes made to pump settings today - advised to contact [employer] regarding early change of infusion sets I discussed about giving insulin shots if pump malfunctions- discussed basal insulin, and bolus as well as correction scale to be taken in pump failure She has seen dietitian at [facility] and was given gastroparesis associated dietary changes Seen dietitian here, and diabetes education as well - she declined refills for insulin but requests for infusion sets, script sent Again advised to calculate the carbs before each meal and take adequate insulin dose accordingly- can take half dose at the start of meal and the rest after completing the meal, especially if she has good appetite and intends to eat the whole meal. If appetite is low, advised to eat first and then take insulin according to the amount of carbs consumed. Discussed again to take correction dose of insulin for Blood glucose above 180 mg/dl- 1 unit for every 40 mg/dl above 180mg/dl -Lifestyle modifications with diet and activity as tolerated have been discussed with the patient --Baangelitaimi sent to pharmacy on previous visit- but reports it is too expensive, an does not want to buy- advised patient to avoid hypoglycemias as much as possible, and given she is on pump, hypoglycemia is less likely to be profound to need emergency glucagon # Hypertension -Currently antihypertensive regimen: Amlodipine 5 mg once daily - managed by PCP # Extensive cardiovascular history, including CAD and CVA -On Lipitor 40 mg once daily Lipid panel in 08/2023 revealing total cholesterol 122 mg/dL, LDL 49 mg/dL, triglycerides 62 mg/dL #Obesity Class II with serious comobidity -Lifestyle modifications and diabetic control discussed as above RTC in 3 months. Patient talk for a long time about multiple things, not necessarily questions or related to her diabetes She will be requested to take a 40 min slot to avoid getting late for the patient following her appt I spent a total of 50 minutes on the date of the service which included preparing to see the patient, [id number] patient care, completing clinical documentation, obtaining and/or reviewing separately obtained history, performing a medically appropriate examination, counseling and educating the patient/family/caregiver, ordering medications, tests, or procedures, and independently interpreting results (not separately reported). Eva Nielsen MD Endocrinology Associate Staff [facility] AND Surgery [facility] Endocrinology and Metabolism [place] [phone] Referring Provider: DARRYN ANDESRON [[id number]] Allergies As of Date: 02/16/2024 Noted Allergy Reaction AMITRIPTYLINE 11/09/2012 14 - Other: See Comments Comments: Confusion, falls CYMBALTA (DULOXETINE) 06/07/2015 16 - Unknown DOXYCYCLINE 06/11/2011 8 - GI Upset Comments: headache EPHEDRINE 01/10/2005 14 - Other: See Comments Comments: tachycardia, but pt. states she still uses nose spray IODINE 07/29/2006 9 - Itching Comments: itching after prolonged use ISOLONE FORTE 04/06/2023 7 - Swelling LEVAQUIN (LEVOFLOXACIN) 05/26/2012 14 - Other: See Comments Comments: Achilles tendon problem LYRICA (PREGABALIN) 05/26/2012 14 - Other: See Comments Comments: Dizziness at 225mg twice daily OXYCODONE 01/21/2021 1 - Mental Status Change PERCOCET (OXYCODONE-ACETAMINOPHEN)05/29/2010 16 - Unknown SULFA (SULFONAMIDE ANTIBIOTICS) 01/10/2005 4 - Hives Comments: blisters AGGRENOX (ASPIRIN-DIPYRIDAMOLE) 12/18/2008 14 - Other: See Comments Comments: MIGRAINES AND VOMITING CEPHALEXIN (BULK) 05/12/2008 8 - GI Upset DURICEF (CEFADROXIL) 01/10/2005 4 - Hives NORTRIPTYLINE 02/11/2013 14 - Other: See Comments Comments: vertigo Date Reviewed: 02/16/2024 Reviewed by: Magalys Mera RN - Fully Assessed Reason for Visit: Type 1 Diabetes [Other] Primary Visit Diagnosis: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) [E10.3293] Other Visit Diagnoses:Gastroparesis due to secondary diabetes (HCC) [E13.43] Type 1 diabetes mellitus with polyneuropathy (HCC) [E10.42] Order(s):HEMOGLOBIN A1C [PVCZK2A] Order #: [id number] FUTURE HEMOGLOBIN A1C (POC) [2338440] Order #: [id number] #:[id number] Prescriptions as of 03/03/2024 - famotidine (PEPCID) 20 mg tablet Take 1 tablet by mouth two times a day. - guaiFENesin (MUCINEX) 600 mg 12 hr tablet Take 1 tablet by mouth two times a day. - Infusion Set for Insulin Pump (MEDTRONIC EXT INFUSION SET 23) iset 1 Each one time a week. - zolpidem (AMBIEN) 10 mg Take 1 tablet by mouth at bedtime as needed (insomnia) for up to 90 days. - amLODIPine (NORVASC) 5 mg tablet Take 1 tablet by mouth once daily. - benzonatate (TESSALON PERLES) 100 mg capsule Take 1 capsule by mouth three times a day as needed for cough. - hydrOXYchloroQUINE (PLAQUENIL) 200 mg tablet Take 1.5 tablets by mouth once daily. - nystatin (MYCOSTATIN) powder Apply 1 application to affected area three times a day. - clopidogrel (PLAVIX) 75 mg tablet Take 1 tablet by mouth once daily. - atorvastatin (LIPITOR) 40 mg tablet Take 1 tablet by mouth once daily. - pramipexole (MIRAPEX) 1 mg tablet Take 2 tablets by mouth daily at bedtime. - neomycin 500 mg tablet Take 1 tablet by mouth every 12 hours. - metoclopramide HCl (REGLAN) 5 mg tablet Take 1 tablet by mouth every 6 hours for 30 days; administer 30 minutes before a meal. - Insulin Syringe-Needle U-100 (BD INSULIN SYRINGE ULTRA-FINE) 1 mL 31 gauge x /16 Use 4 syringes daily if insulin pump fails - blood sugar diagnostic (ACCU-CHEK GUIDE TEST STRIPS) test strip Use with blood glucose test upto four times daily - insulin lispro (HUMALOG U-100 INSULIN) 100 unit/mL injection as directed in Insulin pump up to 110 units daily. Dx E10.65 - losartan (COZAAR) 100 mg tablet Take 1 tablet by mouth once daily. - diclofenac sodium (VOLTAREN ARTHRITIS PAIN TOPICAL) Apply 2 g to affected area as needed (pain). - lidocain-me.yipidwq-kvwc-tdekz 0.5-20-0.035-5 % ptmd Apply 1 Each to affected area as needed. - traMADol (ULTRAM) 50 mg tablet Take 50 mg by mouth every 6 hours as needed for pain. - albuterol HFA (PROVENTIL HFA, VENTOLIN HFA) 90 mcg/actuation inhaler Inhale 2 Puffs as instructed every 4 hours as needed for wheezing/shortness of breath. - WALKER ROLLATOR SEAT WITH 6 WHEELS - RED For ambulation - nitroglycerin (NITROLINGUAL) 400 mcg/spray spray one every 5 minutes x3 as needed - Bacillus coagulans/inulin (PROBIOTIC WITH PREBIOTIC ORAL) Take 1 capsule by mouth once daily. - aspirin 81 mg chewable tablet Take 1 tablet by mouth once daily. - Cholecalciferol, Vitamin D3, 125 mcg (5,000 unit) cap Take 1 capsule by mouth once daily. - Biotin 1 mg tab Take 1 tablet by mouth once daily. - multivitamin tablet Take 1 tablet by mouth once daily. - acetaminophen (TYLENOL 8 HOUR) 650 mg CR tablet Take 1 tablet by mouth every 8 hours as needed. Problem List As Of Date 02/16/2024 Noted Resolved Hyperlipidemia [E78.5] Hypertension [I10] Coronary artery disease involving [place]* 09/29/2019 Dizziness and Giddiness [R42] 04/30/2009 Postsurgical Percutaneous Transluminal Coronary* 04/30/2009 Mild intermittent asthma without complication [* 09/29/2019 Other psoriasis [L40.8] 09/29/2019 Disorder of bone and cartilage [M89.9, M94.9] 09/29/2019 ESOPHAGITIS [530.1] Diverticulosis of Colon (without Mention of Hem* 04/30/2009 External Hemorrhoids without Mention of Complic* 04/30/2009 Internal Hemorrhoids without Mention of Complic* 04/30/2009 Allergic Rhinitis, Cause Unspecified [J30.9] 01/13/2005 06/25/2015 Ingrowing Nail [L60.0] 03/20/2005 04/30/2009 Pain in Soft Tissues of Limb [M79.609] 03/20/2005 04/30/2009 CARPAL TUNNEL BILATERRAL [M13.149] 08/08/2005 09/29/2019 Nonspecific Abnormal Results of Liver Function *08/08/2005 04/30/2009 OVERWEIGHT [E66.9] 08/08/2005 04/30/2009 Dermatophytosis of Nail [B35.1] 09/04/2005 04/30/2009 Depression [F32.5] 12/18/2005 Anxiety state [F41.1] 12/18/2005 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] 03/23/2006 04/30/2009 Pain in Joint, Shoulder Region [M25.519] 05/22/2006 04/30/2009 Neck Sprain and Strain [S13.9XXA] 05/22/2006 04/30/2009 Onychia and Paronychia of Toe [L03.039] 08/11/2006 04/30/2009 Cellulitis and Abscess of Foot, except Toes [L0*08/24/2006 04/30/2009 Rheumatoid arthritis (HCC) [M06.9] 12/04/2006 Anemia, unspecified [D64.9] 12/04/2006 09/29/2019 Sleep apnea [G47.30] 03/08/2007 Acute Bronchitis [J20.9] 05/18/2008 04/30/2009 Tenosynovitis of Foot and Ankle [M65.979] 06/29/2008 04/30/2009 Vitamin deficiency [E56.9] 04/23/2009 Routine general medical examination at [facility]*04/30/2009 06/25/2015 Class: Chronic Routine gynecological examination [Z01.419] 04/30/2009 06/25/2015 Class: Chronic Diverticulosis of colon [K57.30] 04/30/2009 Cerebral infarction (HCC) [I63.9] 07/16/2009 Pain in joint, lower leg [M25.569] 01/21/2010 06/25/2015 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] 04/25/2010 Restless legs syndrome (RLS) [G25.81] 06/25/2010 Calcifying tendinitis of shoulder [M75.30] 07/09/2010 Venous insufficiency [I87.2] 09/08/2011 Thoracic or lumbosacral neuritis or radiculitis*03/01/2012 09/29/2019 Abnormality of gait [R26.9] 03/01/2012 06/25/2015 Vertigo [R42] 02/02/2013 06/25/2015 Cervicalgia [M54.2] 08/04/2014 Gait abnormality [R26.9] 08/04/2014 BPPV (benign paroxysmal positional vertigo) [H8*02/11/2015 09/29/2019 Obstructive sleep apnea syndrome [G47.33] 06/08/2015 Mixed hyperlipidemia [E78.2] 06/08/2015 GERD (gastroesophageal reflux disease) [K21.9] 08/09/2015 RLS (restless legs syndrome) [G25.81] 08/09/2015 Insomnia [G47.00] 08/09/2015 Vertigo [R42] 08/12/2015 09/29/2019 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/2015 Coronary artery disease [I25.10] 08/29/2015 Mild nonproliferative diabetic retinopathy of b*12/06/2018 Hypoglycemia unawareness in type 1 diabetes emre*01/18/2019 Other dysphagia [R13.19] 07/18/2019 09/29/2019 DKA (diabetic ketoacidoses) (HCC) [E11.10] 09/28/2019 10/18/2020 Asthma [J45.909] 09/29/2019 SHERLYN (acute kidney injury) (HCC) [N17.9] 09/29/2019 09/30/2019 H/O multiple allergies [Z88.9] 06/19/[address] [Z96.41] 07/10/2020 Type 1 diabetes mellitus with mild nonprolifera*10/18/2020 Type 1 diabetes mellitus with diabetic neuropat*10/18/2020 Class 2 severe obesity with serious comorbidity*10/18/2020 Bilateral carotid artery stenosis [I65.23] 05/10/2021 Prescriptions ordered this encounter Disp Refills Start End MEDTRONIC EXTENDED INFUSION SET 23 20 E* 2 02/16/2024 02/17/2024 Route: [facility] Each one time a week. Disposition: Return in about 3 months (around 05/18/2024). Follow-up and Disposition History for Encounter Date Provider Department Center 02/16/2024 [id number], [id number] Formerly [facility] [place] Encounter Status:Closed by EVA NIELSEN on 02/16/24 PROGRESS Observed: 02/15/2024 3:00 PM Status: COMPLETED Source: [facility] ID: [id number] Author: AKIL SHARMA RD Service: ? Author Type: Registered Dietitian Type: Progress Notes Filed: 02/15/2024 16:21 Note Text: [facility] Medical Nutrition Therapy Visit Type: In-Person (Face to Face): Patient states reason for visit: Type 1 Diabetes Management Initial DEMOGRAPHICS: Co-Morbidities: PAST MEDICAL HISTORY Diagnosis Date Abnormal mammogram, unspecified left breast BPPV (benign paroxysmal positional vertigo) 02/11/2015 BPV (benign positional vertigo) CAD (coronary artery disease) Carotid stenosis CARPAL TUNNEL BILATERRAL 08/08/2005 Coronary artery disease involving [place] coronary artery Dr. Pederson follows regularly; S/P PTCA and stenting at [facility], 2001 Coronary atherosclerosis of unspecified type of vessel, [place] or graft Disorder of bone and cartilage, unspecified Diverticulosis of colon (without mention of hemorrhage) DKA (diabetic ketoacidoses) 09/28/2019 Esophagitis External hemorrhoids without mention of complication Insomnia Internal hemorrhoids without mention of complication Mammographic microcalcification Mild intermittent asthma without complication Adult onset Mild nonproliferative diabetic retinopathy of both eyes ([facility]) 12/06/2018 Other and unspecified hyperlipidemia Other forms of migraine Other psoriasis Postsurgical percutaneous transluminal coronary angioplasty status Rheumatoid arthritis(714.0) RLS (restless legs syndrome) 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 No - Relates altered balance, uses walker to ambulate. Symptoms: Patient's symptoms are as follows: Concern for CHO amount of foods at meals and how to apply gastroparesis nutrition therapy. How many hours of sleep on average? 6 hours - Recenlty started on Ambien to assist w/ sleeping. - Up at 4 am to make, and goes to bed at 10 P Diet History: Breakfast (4A): poached eggs w/ guacamole Snack: Protein R Ease (40g) drinks 1/2 one day and 1/2 next day Lunch (12P): Ham or [place] sandwich (1 slice of bread) Snack: [place] protein bar, OR crackers and cream cheese Dinner (5-6:30P): Spaghetti and Ham, OR Spaghetti noodles w/ parmesan cheese and lemon w/ dutch yogurt, OR Stuffed Peppers w/ [place] and vegetables, OR [place] Burgers, OR Chicken and noodles w/ vegetables (casserole) Snack: occasional, [place] lemon Yogurt Fluids: Prime Hydration (SF), Water (16 ounces) Dining/eating out? No May sip water at meals but avoids beverages at meals. Will wait 1 hour after eating before drinking and sits up before lying down. Allergies: No Food Allergy Patient / Provider Comments: - Using Medtronic 780 G pump plus Guardian sensor. - Began using insulin pump 25 years ago. - Hx of gastroparesis. - Current DM medications: Humalog - Hypoglycemic events: relates 2 false lows recently w/ CGM but checked with glucometer and readings were high; relates vision changes, shakiness, and weakness with low BG event - Hyperglycemic events: 300 mg/dl d/t COVID w/ December and allergies w/ 2 doses of amoxicillin. - Hx of meeting with dietitian at [facility] for gastroparesis nutrition therapy and has met with Radha Story [facility] RD for gastroparesis nutrition therapy 08/2023. Pt brought nutrition handouts from previous appointments with past RDNs for review. - Recent A1C 7.8% August 2023. - Had appointment with rn diabetes educator nurse 12/23/23 (sensor placement) and 12/15/23 (pump assistance). - Pt states using Medtronic CGM in leg as has attempted in arm and on stomach but relates - Relates no GI distress w/ gastroparesis; no s/s of of decreased appetite. - Notes receives medical supplies from [facility] in [place]. - Total protein found 60-110 g per day. -- Per EMR law firm administrator recommended: 11/06/23 - Use of correction dose of insulin for Blood glucose above 180 mg/dl- 1 unit for every 40 mg/dl above 180mg/dl. - Recommended to calculate the carbs before each meal and take adequate insulin dose accordingly- can take half dose at the start of meal and the rest after completing the meal, especially if she has good appetite and intends to eat the whole meal. If appetite is low, advised to eat first and then take insulin according to the amount of carbs consumed. Medications: Current Outpatient Medications Medication Sig zolpidem (AMBIEN) 10 mg Take 1 tablet by mouth at bedtime as needed (insomnia) for up to 90 days. amLODIPine (NORVASC) 5 mg tablet Take 1 tablet by mouth once daily. benzonatate (TESSALON PERLES) 100 mg capsule Take 1 capsule by mouth three times a day as needed for cough. hydrOXYchloroQUINE (PLAQUENIL) 200 mg tablet Take 1.5 tablets by mouth once daily. nystatin (MYCOSTATIN) powder Apply 1 application to affected area three times a day. clopidogrel (PLAVIX) 75 mg tablet Take 1 tablet by mouth once daily. atorvastatin (LIPITOR) 40 mg tablet Take 1 tablet by mouth once daily. pramipexole (MIRAPEX) 1 mg tablet Take 2 tablets by mouth daily at bedtime. neomycin 500 mg tablet Take 1 tablet by mouth every 12 hours. (Patient not taking: Reported on 11/25/2023) metoclopramide HCl (REGLAN) 5 mg tablet Take 1 tablet by mouth every 6 hours for 30 days; administer 30 minutes before a meal. Insulin Syringe-Needle U-100 (BD INSULIN SYRINGE ULTRA-FINE) 1 mL 31 gauge x 16 Use 4 syringes daily if insulin pump fails blood sugar diagnostic (ACCU-CHEK GUIDE TEST STRIPS) test strip Use with blood glucose test upto four times daily insulin lispro (HUMALOG U-100 INSULIN) 100 unit/mL injection as directed in Insulin pump up to 110 units daily. Dx E10.65 losartan (COZAAR) 100 mg tablet Take 1 tablet by mouth once daily. diclofenac sodium (VOLTAREN ARTHRITIS PAIN TOPICAL) Apply 2 g to affected area as needed (pain). lidocain-me.wzgzewx-delo-tuefj 0.5-20-0.035-5 % ptmd Apply 1 Each to affected area as needed. traMADol (ULTRAM) 50 mg tablet Take 50 mg by mouth every 6 hours as needed for pain. albuterol HFA (PROVENTIL HFA, VENTOLIN HFA) 90 mcg/actuation inhaler Inhale 2 Puffs as instructed every 4 hours as needed for wheezing/shortness of breath. WALKER ROLLATOR SEAT WITH 6 WHEELS - RED For ambulation nitroglycerin (NITROLINGUAL) 400 mcg/spray spray one every 5 minutes x3 as needed (Patient taking differently: Dissolve 1 [place] under the tongue every 5 minutes as needed for chest pain.) Bacillus coagulans/inulin (PROBIOTIC WITH PREBIOTIC ORAL) Take 1 capsule by mouth once daily. aspirin 81 mg chewable tablet Take 1 tablet by mouth once daily. Cholecalciferol, Vitamin D3, 125 mcg (5,000 unit) cap Take 1 capsule by mouth once daily. Biotin 1 mg tab Take 1 tablet by mouth once daily. multivitamin tablet Take 1 tablet by mouth once daily. acetaminophen (TYLENOL 8 HOUR) 650 mg CR tablet Take 1 tablet by mouth every 8 hours as needed. No current facility-administered medications for this visit. Labs: Lab Results Component Value Date HBA1C 7.8 09/01/2023 HBA1C 6.7 12/29/2022 HBA1C 7.1 06/09/2022 HBA1C 7.5 05/07/2021 HBA1C 7.3 10/18/2020 HBA1C 7.5 05/01/2020 HBA1C 7.3 05/02/2019 HBA1C 8.4 09/24/2018 Cholesterol, Total Date Value Ref Range Status 09/01/2023 122 <200 mg/dL Final Comment: <200 mg/dL, Desirable 200-239 mg/dL, Borderline high >239 mg/dL, High HDL Cholesterol Date Value Ref Range Status 09/01/2023 61 >39 mg/dL Final Comment: 40-59 mg/dL, Acceptable >59 mg/dL, High: Negative risk factor for coronary heart disease <40 mg/dL, Low: Positive risk factor for coronary heart disease LDL Cholesterol Date Value Ref Range Status 09/01/2023 49 <100 mg/dL Final Comment: <100 mg/dL, Optimal 100-129 mg/dL, Near optimal/above optimal 130-159 mg/dL, Borderline high 160-189 mg/dL, High >189 mg/dL, Very high Secondary prevention optimal LDL Cholesterol levels are recommended to be < 70 mg/dL Triglyceride Date Value Ref Range Status 09/01/2023 62 <150 mg/dL Final Comment: <150 mg/dL, Normal 150-199 mg/dL, Borderline high 200-499 mg/dL, High >499 mg/dL, Very high Glucose (mg/dL) Date Value 09/01/2023 216 05/01/2020 141 Potassium (mmol/L) Date Value 09/01/2023 3.8 05/01/2020 3.9 Sodium (mmol/L) Date Value 09/01/2023 143 05/01/2020 139 Chloride (mmol/L) Date Value 09/01/2023 108 05/01/2020 104 CO2 (mmol/L) Date Value 09/01/2023 24 05/01/2020 26 Creatinine (mg/dL) Date Value 01/25/2024 0.68 03/01/2021 0.67 BUN (mg/dL) Date Value 09/01/2023 16 05/01/2020 18 Anion Gap (mmol/L) Date Value 09/01/2023 11 05/01/2020 9 Calcium (mg/dL) Date Value 05/01/2020 9.6 Calcium, Total (mg/dL) Date Value 09/01/2023 9.4 Protein, Total (g/dL) Date Value 09/01/2023 6.7 05/01/2020 6.9 Albumin (g/dL) Date Value 01/25/2024 3.7 05/01/2020 3.8 Bilirubin, Total (mg/dL) Date Value 09/01/2023 0.6 05/01/2020 0.3 Alkaline Phosphatase (U/L) Date Value 09/01/2023 95 05/01/2020 118 AST (U/L) Date Value 01/25/2024 32 03/01/2021 29 ALT (U/L) Date Value 01/25/2024 25 03/01/2021 24 ANTHROPOMETRICS Height: Last 1 Encounter Ht Readings: Date: Ht: 11/24/2023 156 cm (5' 1.4) Current weight: Last 3 Encounter Wt Readings: Date: Wt: 01/25/2024 72.6 kg (160 lb) 12/07/2023 75.3 kg (166 lb) 11/25/2023 77.1 kg (170 lb) BMI: 29.84 kg/m2 5% -10% Weight loss: 8-16 lbs Last Wt 01/25/24 : 72.6 kg (160 lb) 5% weight loss = 152 lbs, 10% weight loss = 144 lbs Edgar body weight: 48.7 kg (107 lb 6.5 oz) Adjusted ideal body weight: 58.3 kg (128 lb 7.1 oz) READINESS TO LEARN Cognitive ability: Alert and oriented Motivation to learn: Interested Family support: High - Very involved in pt care Instruction provided to: Patient and Spouse (Raheel) Patient learns best by: Multiple Methods Factors affecting learning: None Physical limitations affecting learning: None Stage of Change: Action Nutrition Diagnosis: Altered GI function related changes in gastric motility (gastroparesis) as evidenced by pt s/s of gastroparesis per gastric emptying study . Calories Needed for Current Weight: Resting Metabolic Rate: 1160 Nutrition Intervention: -- Provided and discussed gastroparesis nutrition therapy. -- Encouraged continue to eat 3 meals per day. Option to have snacks as needed- if unable to consume 30 g CHO at meals consider adding snack between next meal with 15 g CHO. Space meals/snacks a part by 3-5 hours. -- Limit intake of high-fat foods - choose low or reduced fat dairy products, lean protein sources, and limit intake of whole nuts/seeds. Always choose low fat food options- consume <65 grams fat daily. -- Limit fiber intake to ~2-3 grams fiber per meal/snack- choose grain that contain </=2 grams fiber per serving, choose canned (low sodium) or frozen vegetables cooking until fork tender (no raw vegetables or fruit), and canned or cooked fruit (canned fruit packed in 100% fruit juice or water). -- Limit or cease intake of high fat, fried, greasy, oily, and spicy foods, carbonated beverages, caffeine, and alcohol as these can worsen s/s of gastroparesis. -- Encouraged to always pair protein and/or healthy fat with CHO sources. Do not consume naked CHO. -- Always chew foods thoroughly before swallowing. -- Sit upright while eating and sit upright or walk after meals. Do not lie down for 3 to 4 hours after eating to avoid reflux or regurgitation. -- Do not drink fluids at meals which can take up room in stomach- delay fluid intake by at least 30 minutes before meal and wait to consume until 30 minutes after meal. -- Encouraged to always pair protein and/or healthy fat with CHO sources. Do not consume naked CHO. -- Reviewed CHO content of pt commonly consumed CHO foods. -- Food label reading for serving size, total fat, total carbohydrate, fiber, and protein. Educational Materials: [facility] Fiber Content Food List Healthy You: Survival Skills Healthy You: Planning Healthy Meals - Utilized nutrition handouts pt brought to appointment. Nutrition Monitoring AND Evaluation: Dietitian Goals: Maintained OR Improved Blood Glucose Control by next A1C test Criteria: Blood Glucose Values and A1C Patient Stated Goals at today's visit: Choose foods from foods recommended gastroparesis food list. Adherence Potential to Goals: Good Need for Follow up: TBD Referred by: Eva Nielsen* Akil Sharma RD Consult Billing Type/Increments: Initial Assessment/15 minutes, 4 increment(s), 60 minutes Start time: 14:55 End time: 16:00 My final report will be communicated back to the requesting physician by way of shared medical record. Signed by: Akil Sharma RD CNCNPATED Observed: 02/15/2024 3:00 PM Status: COMPLETED Source: [facility] Education (ENDIMT) MCKAYLA RUSSO ([id number]) 1945 F Date Time Provider Department 02/15/24 3:00 PM AKIL SHARMA Reason for Visit: Medical Nutrition Therapy [1997] Cmt: Type 1 Diabetes Primary Visit Diagnosis: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 ([facility]) [E10.3293] Other Visit Diagnosis: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, bilateral [E10.3293] During your visit today, we recorded the following information about you: Allergies As of Date: 02/15/2024 Noted Allergy Reaction AGGRENOX (ASPIRIN-DIPYRIDAMOLE) 12/18/2008 Comments: MIGRAINES AND VOMITING AMITRIPTYLINE 11/09/2012 14 - Other: See Comments Comments: Confusion, falls CEPHALEXIN (BULK) 05/12/2008 8 - GI Upset CYMBALTA (DULOXETINE) 06/07/2015 16 - Unknown DOXYCYCLINE 06/11/2011 8 - GI Upset Comments: headache DURICEF (CEFADROXIL) 01/10/2005 4 - Hives EPHEDRINE 01/10/2005 14 - Other: See Comments Comments: tachycardia, but pt. states she still uses nose spray IODINE 07/29/2006 9 - Itching Comments: itching after prolonged use ISOLONE FORTE 04/06/2023 7 - Swelling LEVAQUIN (LEVOFLOXACIN) 05/26/2012 14 - Other: See Comments Comments: Achilles tendon problem LYRICA (PREGABALIN) 05/26/2012 14 - Other: See Comments Comments: Dizziness at 225mg twice daily NORTRIPTYLINE 02/11/2013 14 - Other: See Comments Comments: vertigo OXYCODONE 01/21/2021 1 - Mental Status Change PERCOCET (OXYCODONE-ACETAMINOPHEN)05/29/2010 16 - Unknown SULFA (SULFONAMIDE ANTIBIOTICS) 01/10/2005 4 - Hives Comments: blisters Date Reviewed: 01/25/2024 Reviewed by: Michelle Baird MA - Fully Assessed Prescriptions as of 02/15/2024 - zolpidem (AMBIEN) 10 mg Take 1 tablet by mouth at bedtime as needed (insomnia) for up to 90 days. - amLODIPine (NORVASC) 5 mg tablet Take 1 tablet by mouth once daily. - benzonatate (TESSALON PERLES) 100 mg capsule Take 1 capsule by mouth three times a day as needed for cough. - hydrOXYchloroQUINE (PLAQUENIL) 200 mg tablet Take 1.5 tablets by mouth once daily. - nystatin (MYCOSTATIN) powder Apply 1 application to affected area three times a day. - clopidogrel (PLAVIX) 75 mg tablet Take 1 tablet by mouth once daily. - atorvastatin (LIPITOR) 40 mg tablet Take 1 tablet by mouth once daily. - pramipexole (MIRAPEX) 1 mg tablet Take 2 tablets by mouth daily at bedtime. - neomycin 500 mg tablet Take 1 tablet by mouth every 12 hours. - metoclopramide HCl (REGLAN) 5 mg tablet Take 1 tablet by mouth every 6 hours for 30 days; administer 30 minutes before a meal. - Insulin Syringe-Needle U-100 (BD INSULIN SYRINGE ULTRA-FINE) 1 mL 31 gauge x 5/16 Use 4 syringes daily if insulin pump fails - blood sugar diagnostic (ACCU-CHEK GUIDE TEST STRIPS) test strip Use with blood glucose test upto four times daily - insulin lispro (HUMALOG U-100 INSULIN) 100 unit/mL injection as directed in Insulin pump up to 110 units daily. Dx E10.65 - losartan (COZAAR) 100 mg tablet Take 1 tablet by mouth once daily. - diclofenac sodium (VOLTAREN ARTHRITIS PAIN TOPICAL) Apply 2 g to affected area as needed (pain). - lidocain-me.bpnrjjd-drgt-ukmwh 0.5-20-0.035-5 % ptmd Apply 1 Each to affected area as needed. - traMADol (ULTRAM) 50 mg tablet Take 50 mg by mouth every 6 hours as needed for pain. - albuterol HFA (PROVENTIL HFA, VENTOLIN HFA) 90 mcg/actuation inhaler Inhale 2 Puffs as instructed every 4 hours as needed for wheezing/shortness of breath. - WALKER ROLLATOR SEAT WITH 6 WHEELS - RED For ambulation - nitroglycerin (NITROLINGUAL) 400 mcg/spray spray one every 5 minutes x3 as needed - Bacillus coagulans/inulin (PROBIOTIC WITH PREBIOTIC ORAL) Take 1 capsule by mouth once daily. - aspirin 81 mg chewable tablet Take 1 tablet by mouth once daily. - Cholecalciferol, Vitamin D3, 125 mcg (5,000 unit) cap Take 1 capsule by mouth once daily. - Biotin 1 mg tab Take 1 tablet by mouth once daily. - multivitamin tablet Take 1 tablet by mouth once daily. - acetaminophen (TYLENOL 8 HOUR) 650 mg CR tablet Take 1 tablet by mouth every 8 hours as needed. Encounter Status:Closed by AKIL SHARMA on 02/15/24 CNPN Observed: 02/08/2024 12:00 AM Status: COMPLETED Source: [facility] Telephone (EMQ) MCKAYLA RUSSO ([id number]) 1945 F Date Time Provider Department 02/08/24 EVA NIELSEN EMQ During your visit today, we recorded the following information about you: Cecilia Ronquillo 02/08/2024 9:23 AM Signed Patient returned call and declined to reschedule next opening in Apr 2024 and request a nurse return her call. Diamond Rushing MA 02/08/2024 1:27 PM Signed Patient phones to reports she is going to start prednisone for a current issue. Patient would like some instruction on how to handle the change in blood sugar using her pump. Please advise KERVIN Macias Snigdha Reddy, MD 02/09/2024 12:26 PM Signed Sliding scale insulin doses should be taken as per insulin sensitivity factor, which as per her pump settings is 1 unit for every 40 mg/dl above 110 mg/dl Diamond Rushing MA 02/09/2024 2:12 PM Signed Phoned patient to discuss use of sliding scale to offset high blood sugars caused by steroids. Patient was able read sliding scale to me and understands to utilize the scale regardless of reason for raise in blood sugar. Patient states she does not like that her sugar level rises. Patient reports having an upcoming appointment with endocrinology director of product marketing. Diamond Rushing MA Allergies As of Date: 02/08/2024 Noted Allergy Reaction AGGRENOX (ASPIRIN-DIPYRIDAMOLE) 12/18/2008 Comments: MIGRAINES AND VOMITING AMITRIPTYLINE 11/09/2012 14 - Other: See Comments Comments: Confusion, falls CEPHALEXIN (BULK) 05/12/2008 8 - GI Upset CYMBALTA (DULOXETINE) 06/07/2015 16 - Unknown DOXYCYCLINE 06/11/2011 8 - GI Upset Comments: headache DURICEF (CEFADROXIL) 01/10/2005 4 - Hives EPHEDRINE 01/10/2005 14 - Other: See Comments Comments: tachycardia, but pt. states she still uses nose spray IODINE 07/29/2006 9 - Itching Comments: itching after prolonged use ISOLONE FORTE 04/06/2023 7 - Swelling LEVAQUIN (LEVOFLOXACIN) 05/26/2012 14 - Other: See Comments Comments: Achilles tendon problem LYRICA (PREGABALIN) 05/26/2012 14 - Other: See Comments Comments: Dizziness at 225mg twice daily NORTRIPTYLINE 02/11/2013 14 - Other: See Comments Comments: vertigo OXYCODONE 01/21/2021 1 - Mental Status Change PERCOCET (OXYCODONE-ACETAMINOPHEN)05/29/2010 16 - Unknown SULFA (SULFONAMIDE ANTIBIOTICS) 01/10/2005 4 - Hives Comments: blisters Date Reviewed: 01/25/2024 Reviewed by: Michelle Baird MA - Fully Assessed Reason for Visit: Appointment [[id number]] Prescriptions as of 02/09/2024 - zolpidem (AMBIEN) 10 mg Take 1 tablet by mouth at bedtime as needed (insomnia) for up to 90 days. - amLODIPine (NORVASC) 5 mg tablet Take 1 tablet by mouth once daily. - benzonatate (TESSALON PERLES) 100 mg capsule Take 1 capsule by mouth three times a day as needed for cough. - hydrOXYchloroQUINE (PLAQUENIL) 200 mg tablet Take 1.5 tablets by mouth once daily. - nystatin (MYCOSTATIN) powder Apply 1 application to affected area three times a day. - clopidogrel (PLAVIX) 75 mg tablet Take 1 tablet by mouth once daily. - atorvastatin (LIPITOR) 40 mg tablet Take 1 tablet by mouth once daily. - pramipexole (MIRAPEX) 1 mg tablet Take 2 tablets by mouth daily at bedtime. - neomycin 500 mg tablet Take 1 tablet by mouth every 12 hours. - metoclopramide HCl (REGLAN) 5 mg tablet Take 1 tablet by mouth every 6 hours for 30 days; administer 30 minutes before a meal. - Insulin Syringe-Needle U-100 (BD INSULIN SYRINGE ULTRA-FINE) 1 mL 31 gauge x 5/16 Use 4 syringes daily if insulin pump fails - blood sugar diagnostic (ACCU-CHEK GUIDE TEST STRIPS) test strip Use with blood glucose test upto four times daily - insulin lispro (HUMALOG U-100 INSULIN) 100 unit/mL injection as directed in Insulin pump up to 110 units daily. Dx E10.65 - losartan (COZAAR) 100 mg tablet Take 1 tablet by mouth once daily. - diclofenac sodium (VOLTAREN ARTHRITIS PAIN TOPICAL) Apply 2 g to affected area as needed (pain). - lidocain-me.epsahsa-ahsl-aocmu 0.5-20-0.035-5 % ptmd Apply 1 Each to affected area as needed. - traMADol (ULTRAM) 50 mg tablet Take 50 mg by mouth every 6 hours as needed for pain. - albuterol HFA (PROVENTIL HFA, VENTOLIN HFA) 90 mcg/actuation inhaler Inhale 2 Puffs as instructed every 4 hours as needed for wheezing/shortness of breath. - WALKER ROLLATOR SEAT WITH 6 WHEELS - RED For ambulation - nitroglycerin (NITROLINGUAL) 400 mcg/spray spray one every 5 minutes x3 as needed - Bacillus coagulans/inulin (PROBIOTIC WITH PREBIOTIC ORAL) Take 1 capsule by mouth once daily. - aspirin 81 mg chewable tablet Take 1 tablet by mouth once daily. - Cholecalciferol, Vitamin D3, 125 mcg (5,000 unit) cap Take 1 capsule by mouth once daily. - Biotin 1 mg tab Take 1 tablet by mouth once daily. - multivitamin tablet Take 1 tablet by mouth once daily. - acetaminophen (TYLENOL 8 HOUR) 650 mg CR tablet Take 1 tablet by mouth every 8 hours as needed. Problem List As Of Date 02/08/2024 Noted Resolved Hyperlipidemia [E78.5] Hypertension [I10] Coronary artery disease involving [place]* 09/29/2019 Dizziness and Giddiness [R42] 04/30/2009 Postsurgical Percutaneous Transluminal Coronary* 04/30/2009 Mild intermittent asthma without complication [* 09/29/2019 Other psoriasis [L40.8] 09/29/2019 Disorder of bone and cartilage [M89.9, M94.9] 09/29/2019 ESOPHAGITIS [530.1] Diverticulosis of Colon (without Mention of Hem* 04/30/2009 External Hemorrhoids without Mention of Complic* 04/30/2009 Internal Hemorrhoids without Mention of Complic* 04/30/2009 Allergic Rhinitis, Cause Unspecified [J30.9] 01/13/2005 06/25/2015 Ingrowing Nail [L60.0] 03/20/2005 04/30/2009 Pain in Soft Tissues of Limb [M79.609] 03/20/2005 04/30/2009 CARPAL TUNNEL BILATERRAL [M13.149] 08/08/2005 09/29/2019 Nonspecific Abnormal Results of Liver Function *08/08/2005 04/30/2009 OVERWEIGHT [E66.9] 08/08/2005 04/30/2009 Dermatophytosis of Nail [B35.1] 09/04/2005 04/30/2009 Depression [F32.5] 12/18/2005 Anxiety state [F41.1] 12/18/2005 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] 03/23/2006 04/30/2009 Pain in Joint, Shoulder Region [M25.519] 05/22/2006 04/30/2009 Neck Sprain and Strain [S13.9XXA] 05/22/2006 04/30/2009 Onychia and Paronychia of Toe [L03.039] 08/11/2006 04/30/2009 Cellulitis and Abscess of Foot, except Toes [L0*08/24/2006 04/30/2009 Rheumatoid arthritis (HCC) [M06.9] 12/04/2006 Anemia, unspecified [D64.9] 12/04/2006 09/29/2019 Sleep apnea [G47.30] 03/08/2007 Acute Bronchitis [J20.9] 05/18/2008 04/30/2009 Tenosynovitis of Foot and Ankle [M65.979] 06/29/2008 04/30/2009 Vitamin deficiency [E56.9] 04/23/2009 Routine general medical examination at [facility]*04/30/2009 06/25/2015 Class: Chronic Routine gynecological examination [Z01.419] 04/30/2009 06/25/2015 Class: Chronic Diverticulosis of colon [K57.30] 04/30/2009 Cerebral infarction (HCC) [I63.9] 07/16/2009 Pain in joint, lower leg [M25.569] 01/21/2010 06/25/2015 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] 04/25/2010 Restless legs syndrome (RLS) [G25.81] 06/25/2010 Calcifying tendinitis of shoulder [M75.30] 07/09/2010 Venous insufficiency [I87.2] 09/08/2011 Thoracic or lumbosacral neuritis or radiculitis*03/01/2012 09/29/2019 Abnormality of gait [R26.9] 03/01/2012 06/25/2015 Vertigo [R42] 02/02/2013 06/25/2015 Cervicalgia [M54.2] 08/04/2014 Gait abnormality [R26.9] 08/04/2014 BPPV (benign paroxysmal positional vertigo) [H8*02/11/2015 09/29/2019 Obstructive sleep apnea syndrome [G47.33] 06/08/2015 Mixed hyperlipidemia [E78.2] 06/08/2015 GERD (gastroesophageal reflux disease) [K21.9] 08/09/2015 RLS (restless legs syndrome) [G25.81] 08/09/2015 Insomnia [G47.00] 08/09/2015 Vertigo [R42] 08/12/2015 09/29/2019 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/2015 Coronary artery disease [I25.10] 08/29/2015 Mild nonproliferative diabetic retinopathy of b*12/06/2018 Hypoglycemia unawareness in type 1 diabetes emre*01/18/2019 Other dysphagia [R13.19] 07/18/2019 09/29/2019 DKA (diabetic ketoacidoses) ([facility]) [E11.10] 09/28/2019 10/18/2020 Asthma [J45.909] 09/29/2019 SHERLYN (acute kidney injury) ([facility]) [N17.9] 09/29/2019 09/30/2019 H/O multiple allergies [Z88.9] 06/19/[address] [Z96.41] 07/10/2020 Type 1 diabetes mellitus with mild nonprolifera*10/18/2020 Type 1 diabetes mellitus with diabetic neuropat*10/18/2020 Class 2 severe obesity with serious comorbidity*10/18/2020 Bilateral carotid artery stenosis [I65.23] 05/10/2021 Encounter Status:Closed by DIAMOND RUSHING on 02/09/24 ROGER Observed: 01/28/2024 12:00 AM Status: COMPLETED Source: [facility] MCKAYLA [facility]USSO ([id number]) 1945 F Date Time Provider Department 01/28/24 [facility] During your visit today, we recorded the following information about you: Chaya Delatorre LPN 01/28/2024 9:01 AM Signed Pt calls in states just saw Sultana for cough and other symptoms was given z-josie took the first two got really dizzy and bad headache so did not take anymore. States now sputum is yellow and light greenish in color from white and cough has become raspy. She states there was talk of her sending prednisone not sure how feels about this because is a brittle diabetic. Asking for recommendations. Sultana Harvey APRN.[facility] 01/28/2024 12:45 PM Signed She has tolerated azithromycin previously and has limited antibiotics that she can take. 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 Thank you Sultana Harvey APRN.Rosalba Scanlon RN 01/28/2024 1:22 PM Signed Pt states she uses [facility] for her medications. Pt also reports that she has a yeast infection from the antibiotic and was asking if provider could send in something for that. Pt states she doesn't have a [employer], because she isn't able to make it out to [place]. She reports they sent a referral to [facility] for her, but she hasn't received a call from them yet. I told her she can call them. She was asking if the provider thought she should get the testing done, and I told her the provider told her she needed to be seen by them. The patient has been identified by name and date of : Yes Caregiver verified no other encounters exist for this prescription request: Yes Caregiver confirmed with patient/requestor that no other refills are due, in the near future, with this provider at this time: Yes The last office visit in the department: 09/08/2018 Does the patient have a future office visit with this provider/department: Yes 02/22/24 Requested Prescriptions Pending Prescriptions Disp Refills amoxicillin-clavulanate potassium (AUGMENTIN) 875-125 mg per tablet 20 tablet 0 Sig: Take 1 tablet by mouth two times a day for 10 days. Signed Prescriptions Disp Refills amoxicillin-clavulanate potassium (AUGMENTIN) 875-125 mg per tablet 20 tablet 0 Sig: Take 1 tablet by mouth two times a day for 10 days. Authorizing Provider: SULTANA HARVEY RN January 28, 2024 1:19 PM Sultana Harvey APRN.CNP 01/28/2024 1:35 PM Signed Prescriptions sent as requested. Thank you Sultana Harvey APRN.Chaya Garzon LPN 01/28/2024 1:42 PM Signed Pt calls states was just sent in another script for Aiugmentin states she is diabetes will get yeast infection. Asking if med for this could also be called to [facility]. Sultana Harvey APRN.CNP 01/28/2024 2:00 PM Signed Diflucan was already sent with the augmentin as previously requested. Thank you Sultana Harvey APRN.Rosalba Scanlon RN 01/28/2024 3:28 PM Signed Pt called and is notified of providers message. Pt voices understanding. Rosalba Ren RN Allergies As of Date: 01/28/2024 Noted Allergy Reaction AGGRENOX (ASPIRIN-DIPYRIDAMOLE) 12/18/2008 Comments: MIGRAINES AND VOMITING AMITRIPTYLINE 11/09/2012 14 - Other: See Comments Comments: Confusion, falls CEPHALEXIN (BULK) 05/12/2008 8 - GI Upset CYMBALTA (DULOXETINE) 06/07/2015 16 - Unknown DOXYCYCLINE 06/11/2011 8 - GI Upset Comments: headache DURICEF (CEFADROXIL) 01/10/2005 4 - Hives EPHEDRINE 01/10/2005 14 - Other: See Comments Comments: tachycardia, but pt. states she still uses nose spray IODINE 07/29/2006 9 - Itching Comments: itching after prolonged use ISOLONE FORTE 04/06/2023 7 - Swelling LEVAQUIN (LEVOFLOXACIN) 05/26/2012 14 - Other: See Comments Comments: Achilles tendon problem LYRICA (PREGABALIN) 05/26/2012 14 - Other: See Comments Comments: Dizziness at 225mg twice daily NORTRIPTYLINE 02/11/2013 14 - Other: See Comments Comments: vertigo OXYCODONE 01/21/2021 1 - Mental Status Change PERCOCET (OXYCODONE-ACETAMINOPHEN)05/29/2010 16 - Unknown SULFA (SULFONAMIDE ANTIBIOTICS) 01/10/2005 4 - Hives Comments: blisters Date Reviewed: 01/25/2024 Reviewed by: Michelle Baird MA - Fully Assessed Reason for Visit: cough worse [Other] Order(s):amoxicillin-clavulanate potassium (AUGMENTIN) 875-125 mg per tabletTake 1 tablet by mouth two times a day for 10 days.Disp: 20 tabletRfl: 0 fluconazole (DIFLUCAN) 150 mg tabletTake 1 tablet by mouth one time only for 1 dose. Repeat in 3 days as needed.Disp: 2 tabletRfl: 0 Prescriptions as of 01/28/2024 - amoxicillin-clavulanate potassium (AUGMENTIN) 875-125 mg per tablet Take 1 tablet by mouth two times a day for 10 days. - fluconazole (DIFLUCAN) 150 mg tablet Take 1 tablet by mouth one time only for 1 dose. Repeat in 3 days as needed. - azithromycin (ZITHROMAX Z-JOSIE) 250 mg tablet Take 2 tablets day one, then, 1 tablet daily until gone. - amLODIPine (NORVASC) 5 mg tablet Take 1 tablet by mouth once daily. - benzonatate (TESSALON PERLES) 100 mg capsule Take 1 capsule by mouth three times a day as needed for cough. - zolpidem (AMBIEN) 10 mg Take 1 tablet by mouth at bedtime as needed (insomnia) for up to 30 days. - hydrOXYchloroQUINE (PLAQUENIL) 200 mg tablet Take 1.5 tablets by mouth once daily. - nystatin (MYCOSTATIN) powder Apply 1 application to affected area three times a day. - clopidogrel (PLAVIX) 75 mg tablet Take 1 tablet by mouth once daily. - atorvastatin (LIPITOR) 40 mg tablet Take 1 tablet by mouth once daily. - pramipexole (MIRAPEX) 1 mg tablet Take 2 tablets by mouth daily at bedtime. - neomycin 500 mg tablet Take 1 tablet by mouth every 12 hours. - metoclopramide HCl (REGLAN) 5 mg tablet Take 1 tablet by mouth every 6 hours for 30 days; administer 30 minutes before a meal. - Insulin Syringe-Needle U-100 (BD INSULIN SYRINGE ULTRA-FINE) 1 mL 31 gauge x 5/16 Use 4 syringes daily if insulin pump fails - blood sugar diagnostic (ACCU-CHEK GUIDE TEST STRIPS) test strip Use with blood glucose test upto four times daily - insulin lispro (HUMALOG U-100 INSULIN) 100 unit/mL injection as directed in Insulin pump up to 110 units daily. Dx E10.65 - losartan (COZAAR) 100 mg tablet Take 1 tablet by mouth once daily. - diclofenac sodium (VOLTAREN ARTHRITIS PAIN TOPICAL) Apply 2 g to affected area as needed (pain). - lidocain-me.rwvgoyu-hzjp-ckzyh 0.5-20-0.035-5 % ptmd Apply 1 Each to affected area as needed. - traMADol (ULTRAM) 50 mg tablet Take 50 mg by mouth every 6 hours as needed for pain. - albuterol HFA (PROVENTIL HFA, VENTOLIN HFA) 90 mcg/actuation inhaler Inhale 2 Puffs as instructed every 4 hours as needed for wheezing/shortness of breath. - WALKER ROLLATOR SEAT WITH 6 WHEELS - RED For ambulation - nitroglycerin (NITROLINGUAL) 400 mcg/spray spray one every 5 minutes x3 as needed - Bacillus coagulans/inulin (PROBIOTIC WITH PREBIOTIC ORAL) Take 1 capsule by mouth once daily. - aspirin 81 mg chewable tablet Take 1 tablet by mouth once daily. - Cholecalciferol, Vitamin D3, 125 mcg (5,000 unit) cap Take 1 capsule by mouth once daily. - Biotin 1 mg tab Take 1 tablet by mouth once daily. - multivitamin tablet Take 1 tablet by mouth once daily. - acetaminophen (TYLENOL 8 HOUR) 650 mg CR tablet Take 1 tablet by mouth every 8 hours as needed. Problem List As Of Date 01/28/2024 Noted Resolved Hyperlipidemia [E78.5] Hypertension [I10] Coronary artery disease involving [place]* 09/29/2019 Dizziness and Giddiness [R42] 04/30/2009 Postsurgical Percutaneous Transluminal Coronary* 04/30/2009 Mild intermittent asthma without complication [* 09/29/2019 Other psoriasis [L40.8] 09/29/2019 Disorder of bone and cartilage [M89.9, M94.9] 09/29/2019 ESOPHAGITIS [530.1] Diverticulosis of Colon (without Mention of Hem* 04/30/2009 External Hemorrhoids without Mention of Complic* 04/30/2009 Internal Hemorrhoids without Mention of Complic* 04/30/2009 Allergic Rhinitis, Cause Unspecified [J30.9] 01/13/2005 06/25/2015 Ingrowing Nail [L60.0] 03/20/2005 04/30/2009 Pain in Soft Tissues of Limb [M79.609] 03/20/2005 04/30/2009 CARPAL TUNNEL BILATERRAL [M13.149] 08/08/2005 09/29/2019 Nonspecific Abnormal Results of Liver Function *08/08/2005 04/30/2009 OVERWEIGHT [E66.9] 08/08/2005 04/30/2009 Dermatophytosis of Nail [B35.1] 09/04/2005 04/30/2009 Depression [F32.5] 12/18/2005 Anxiety state [F41.1] 12/18/2005 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] 03/23/2006 04/30/2009 Pain in Joint, Shoulder Region [M25.519] 05/22/2006 04/30/2009 Neck Sprain and Strain [S13.9XXA] 05/22/2006 04/30/2009 Onychia and Paronychia of Toe [L03.039] 08/11/2006 04/30/2009 Cellulitis and Abscess of Foot, except Toes [L0*08/24/2006 04/30/2009 Rheumatoid arthritis (HCC) [M06.9] 12/04/2006 Anemia, unspecified [D64.9] 12/04/2006 09/29/2019 Sleep apnea [G47.30] 03/08/2007 Acute Bronchitis [J20.9] 05/18/2008 04/30/2009 Tenosynovitis of Foot and Ankle [M65.979] 06/29/2008 04/30/2009 Vitamin deficiency [E56.9] 04/23/2009 Routine general medical examination at [facility]*04/30/2009 06/25/2015 Class: Chronic Routine gynecological examination [Z01.419] 04/30/2009 06/25/2015 Class: Chronic Diverticulosis of colon [K57.30] 04/30/2009 Cerebral infarction (HCC) [I63.9] 07/16/2009 Pain in joint, lower leg [M25.569] 01/21/2010 06/25/2015 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] 04/25/2010 Restless legs syndrome (RLS) [G25.81] 06/25/2010 Calcifying tendinitis of shoulder [M75.30] 07/09/2010 Venous insufficiency [I87.2] 09/08/2011 Thoracic or lumbosacral neuritis or radiculitis*03/01/2012 09/29/2019 Abnormality of gait [R26.9] 03/01/2012 06/25/2015 Vertigo [R42] 02/02/2013 06/25/2015 Cervicalgia [M54.2] 08/04/2014 Gait abnormality [R26.9] 08/04/2014 BPPV (benign paroxysmal positional vertigo) [H8*02/11/2015 09/29/2019 Obstructive sleep apnea syndrome [G47.33] 06/08/2015 Mixed hyperlipidemia [E78.2] 06/08/2015 GERD (gastroesophageal reflux disease) [K21.9] 08/09/2015 RLS (restless legs syndrome) [G25.81] 08/09/2015 Insomnia [G47.00] 08/09/2015 Vertigo [R42] 08/12/2015 09/29/2019 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/2015 Coronary artery disease [I25.10] 08/29/2015 Mild nonproliferative diabetic retinopathy of b*12/06/2018 Hypoglycemia unawareness in type 1 diabetes emre*01/18/2019 Other dysphagia [R13.19] 07/18/2019 09/29/2019 DKA (diabetic ketoacidoses) ([facility]) [E11.10] 09/28/2019 10/18/2020 Asthma [J45.909] 09/29/2019 SHERLYN (acute kidney injury) ([facility]) [N17.9] 09/29/2019 09/30/2019 H/O multiple allergies [Z88.9] 06/19/[address] [Z96.41] 07/10/2020 Type 1 diabetes mellitus with mild nonprolifera*10/18/2020 Type 1 diabetes mellitus with diabetic neuropat*10/18/2020 Class 2 severe obesity with serious comorbidity*10/18/2020 Bilateral carotid artery stenosis [I65.23] 05/10/2021 Prescriptions ordered this encounter Disp Refills Start End AMOXICILLIN 875 MG-POTASSIUM CLAVULA* 20 t* 0 01/28/2024 01/28/2024 Route: ORAL Sig: Take 1 tablet by mouth two times a day for 10 days. AMOXICILLIN 875 MG-POTASSIUM CLAVULA* 20 t* 0 01/28/2024 02/07/2024 Route: ORAL Sig: Take 1 tablet by mouth two times a day for 10 days. FLUCONAZOLE 150 MG TABLET 2 ta* 0 01/28/2024 01/28/2024 Route: ORAL Sig: Take 1 tablet by mouth one time only for 1 dose. Repeat in 3 days as needed. Medications Discontinued During This Encounter Prescriptions - amoxicillin-clavulanate potassium (AUGMENTIN) 875-125 mg per tablet (Discontinued) Take 1 tablet by mouth two times a day for 10 days. - amoxicillin-clavulanate potassium (AUGMENTIN) 875-125 mg per tablet (Discontinued) Take 1 tablet by mouth two times a day for 10 days. Encounter Status:Closed by ROSALBA REN on 01/28/24 XR CHEST 2V FRONTAL/LAT Observed: 2023 2:12 PM Status: F Source: [facility] * * *Final Report* * * DATE OF EXAM: Jan 25 2024 2:12PM WOX [id number] - XR CHEST 2V FRONTAL/LAT / PROCEDURE REASON: multiple diagnoses * * * * Physician Interpretation * * * * EXAMINATION: CHEST RADIOGRAPH (2 VIEW FRONTAL and LATERAL) CLINICAL HISTORY: Shortness of breath Wheezing MQ: [id number] EXAM DATE/TIME: 01/25/2024 2:12 PM COMPARISON: No relevant prior studies available. RESULT: Lines, tubes, and devices: None. Lungs and pleura: No consolidation. No lung mass. No pleural effusion. No pneumothorax. Cardiomediastinal silhouette: Normal cardiomediastinal silhouette. Bones and soft tissues: There is kyphosis with multilevel degenerative changes of the thoracic spine. IMPRESSION: No acute radiographic abnormality. Rolfer: [employer] Transcribe Date/Time: Jan 26 2024 9:09A Dictated by : GORGE WILSON MD This examination was interpreted and the report reviewed and electronically signed by: GORGE WILSON MD on Jan 26 2024 9:38AM EST [id number] PROGRESS Observed: 01/25/2024 2:00 PM Status: COMPLETED Source: [facility] HNO ID: [id number] Author: CHACHO VARELA RT(R) Service: Radiology Author Type: Technologist Type: Progress Notes Filed: 01/25/2024 14:12 Note Text: Radiology Service Progress Note PATIENT NAME: Mckayla Russo DATE OF SERVICE: January 25, 2024 TIME: 1:59 PM PATIENT IDENTITY VERIFICATION COMPLETED USING TWO [...] place to prevent falls during this visit? Offered Assistance with Transfers/Clothing and Instructed Patient to Remain Seated (Not on Exam Table) Until Exam PATIENT GENDER DATA: Female. status: : No status: NO. PATIENT RELEVANT IMPLANT DATA REVIEWED: Not Applicable PATIENT PRESENTS WITH AN IMPLANTABLE OR ATTACHED AUTOMOTIVE DISMANTLER: No RADIOLOGY DEPARTMENT: General X-ray: Exam(s) Completed: Chest X-Ray PERIPHERAL IV DATA: Not applicable SIGNED BY: RT Hermann(R) January 25, 2024 1:59 PM CBC W AUTO DIFF BLD Collected: 01/25/2024 1:[address] atus: F Source: [facility] Order Comment: Specimen Type : BLOOD SPECIMEN Ordering Facility: [facility] Address: [address] [place] [address] TYPE CODE TESTS RESULT OUT OF RANGE REFERENCE UNITS LAB 6690-2(INC) WBC # Bld Auto 7.75 3.70-11.00 k/uL LAB 789-8(LOINC) RBC # Bld Auto 3.64 Low 3.90-5.20 m/ uL LAB 718-7(LOINC) Hgb Bld-mCnc 12.3 11.5-15.5 g/dL LAB 4544-3(LOINC) Hct VFr Bld Auto 35.6 Low 36.0-46.0 % LAB 787-2(LOINC) MCV RBC Auto 97.8 80.0-100.0 fL LAB 785-6(LOINC) MCH RBC Qn Auto 33.8 26.0-34.0 p g LAB 786-4(LOINC) MCHC RBC Auto-mCnc 34.6 30.5-36.0 g/dL LAB 63375-7(LOINC) RDW RBC-Rto 12.1 11.5-15.0 % LAB 777-3(LOINC) Platelet # Bld Auto 259 150-400 k/uL LAB 42289-1(LOINC) PMV Bld Auto 12.3 9.0-12.7 fL LAB 770-8(LOINC) Neutrophils/leuk NFr Bld Auto 70.4 % LAB 751-8(LOINC) Neutrophils # Bld Auto 5.46 1.45-7.50 k/uL LAB 736-9(LOINC) Lymphocytes/leuk NFr Bld Auto 17.0 % LAB 731-0(LOINC) Lymphocytes # Bld Auto 1.32 1.00-4.00 k/uL LAB 5905-5(LOINC) Monocytes/leuk NFr Bld Auto 11.0 % LAB 742-7(LOINC) Monocytes # Bld Auto 0.85 <0.87 k/uL LAB 713-8(LOINC) Eosinophil/leuk NFr Bld Auto 0.8 % LAB 711-2(INC) Eosinophil # Bld Auto 0.06 <0.46 k/uL LAB 706-2(INC) Basophils/leuk NFr Bld Auto 0.4 % LAB 704-7(INC) Basophils # Bld Auto 0.03 <0.11 k/uL LAB 08993-9(INC) Imm Granulocytes/moiz k NFr Bld Auto 0.4 % LAB 02842-3(INC) Imm Granulocytes # Bld Auto 0.03 <0.10 k/uL LAB 07801-7(INC) nRBC/100 WBC Bld-Rto 0.0 /100 WBC LAB 771-6([facility]) nRBC # Bld Auto <0.01 <0.01 k/u L LAB 05480-4([facility]) Differential method Bld Auto Performed By: #### 19785-8 # ### [facility] CLIA [id number] [address] [place] [address] [place] ALBUMIN SERPL-MCNC Collected: 01/25/2024 1:56 PM Sta tus: F Source: [facility] Order Comment: Specimen Type : BLOOD SPECIMEN Ordering Facility: [facility] Address: [address] [place] [address] TYPE CODE TESTS RESULT OUT OF RANGE REFERENCE UNITS LAB 1751-7([facility]) Albumin SerPl-mCnc 3.7 Low 3.9-4.9 g/dL Performed By: #### 1751-7, 1 742-6, 0-8, CRET1 #### [facility] CLIA [id number] [address] [place] [address] [place] ALT SERPL-CCNC Collected: 01/25/2024 1:56 PM Status: F Source: [facility] Comment: Specimen Type : BLOOD SPECIMEN Ordering Facility: [facility] Address: [address] [place] [address] TYPE CODE TESTS RESULT OUT OF RANGE REFERENCE UNITS LAB 1742-6(LOINC) ALT SerPl-cCnc 25 7-38 U/L Performed By: #### 1751-7, 1 742-6, 1920-8, CRET1 #### [facility] CLIA [id number] [address] [place] [address] [place] AST SERPL-CCNC Collected: 01/25/2024 1:56 PM Status: F Source: [facility] Comment: Specimen Type : BLOOD SPECIMEN Ordering Facility: [facility] Address: [address] [place] [address] TYPE CODE TESTS RESULT OUT OF RANGE REFERENCE UNITS LAB 1920-8(LOINC) AST SerPl-cCnc 32 13-35 U/L Performed By: #### 1751-7, 1 742-6, 1920-8, CRET1 #### [facility] CLIA [id number] [address] [place] [address] [place] CREATININE BLD Collected: 1:56 PM Status: F Source: [facility] Comment: Specimen Type : BLOOD SPECIMEN Ordering Facility: [facility] Address: [address] [place] [address] TYPE CODE TESTS RESULT OUT OF RANGE REFERENCE UNITS LAB 2160-0(LOINC) Creat SerPl-mCnc 0.68 0.58-0.96 mg/dL LAB 12584-2(LOINC) Creatinine + eGFR Pnl SerPlBld 90 >=60 mL/min/1. 73m??? Result Comment: Estimated Gl omerular Filtration Rate (eGFR) is calculated using the 2020 CKD-EPI creatinine equation. This equation utilizes serum creatinine, sex, and age as parameters. The creatinine assay has traceable calibration to isotope dilution-mass spectrometry. Refer to KDIGO guidelines for clinical interpretation. In patients with unstable renal function, e.g. those with acute kidney injury, the eGFR may not accurately reflect actual GFR. Performed By: #### 1751-7, 1 742-6, 1920-8, CRET1 #### [facility] CLIA [id number] [address] [facility] [place] [address] [place] PROGRESS Observed: 01/25/2024 1:30 PM Status: COMPLETED Source: [facility] HNO ID: [id number] Author: SULTANA HARVEY APRN.[employer] Service: ? Author Type: Nurse Practitioner Type: Progress Notes Filed: 01/25/2024 13:56 Note Text: CC: Patient presents with: Recheck: Covid positive, wheezing at night HPI Mckayla Russo is a 78 year old female who presents today for ongoing illness. Illness started 12/31 and tested positive for COVID on 01/07. Was seen virtually on the and prescribed Augmentin. Took Augmentin as ordered but not feeling any better. Has been coughing up clear sputum, shortness of breath with minimal exertion, wheezing, hot/cold flashes, dizziness, weakness, sinus congestion, and let ear pain. Is on an insulin pump that she has a chart to let her know how much to give and when. Denies chest pain, edema, palpitations, severe headaches, N/V/D, sore throat, or ear drainage. Has been using saline nasal spray and afrin one time. Also tried mucinex but with no improvement. REVIEW OF SYSTEMS See HPI PAST MEDICAL HISTORY Diagnosis Date Abnormal mammogram, unspecified left breast BPPV (benign paroxysmal positional vertigo) 02/11/2015 BPV (benign positional vertigo) CAD (coronary artery disease) Carotid stenosis CARPAL TUNNEL BILATERRAL 08/08/2005 Coronary artery disease involving [place] coronary artery Dr. Pederson follows regularly; S/P PTCA and stenting at [facility], 2000 Coronary atherosclerosis of unspecified type of vessel, [place] or graft Disorder of bone and cartilage, [...] RLS (restless legs syndrome) 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 benzonatate (TESSALON PERLES) 100 mg capsule Take 1 capsule by mouth three times a day as needed for cough. zolpidem (AMBIEN) 10 mg Take 1 tablet by mouth at bedtime as needed (insomnia) for up to 30 days. hydrOXYchloroQUINE (PLAQUENIL) 200 mg tablet Take 1.5 tablets by mouth once daily. nystatin (MYCOSTATIN) powder Apply 1 application to affected area three times a day. clopidogrel (PLAVIX) 75 mg tablet Take 1 tablet by mouth once daily. atorvastatin (LIPITOR) 40 mg tablet Take 1 tablet by mouth once daily. pramipexole (MIRAPEX) 1 mg tablet Take 2 tablets by mouth daily at bedtime. neomycin 500 mg tablet Take 1 tablet by mouth every 12 hours. (Patient not taking: Reported on 11/25/2023) metoclopramide HCl (REGLAN) 5 mg tablet Take 1 tablet by mouth every 6 hours for 30 days; administer 30 minutes before a meal. Insulin Syringe-Needle U-100 (BD INSULIN SYRINGE ULTRA-FINE) 1 mL 31 gauge x 5/16 Use 4 syringes daily if insulin pump fails blood sugar diagnostic (ACCU-CHEK GUIDE TEST STRIPS) test strip Use with blood glucose test upto four times daily insulin lispro (HUMALOG U-100 INSULIN) 100 unit/mL injection as directed in Insulin pump up to 110 units daily. Dx E10.65 losartan (COZAAR) 100 mg tablet Take 1 tablet by mouth once daily. diclofenac sodium (VOLTAREN ARTHRITIS PAIN TOPICAL) Apply 2 g to affected area as needed (pain). lidocain-me.rlixdrp-xqkj-syfiq 0.5-20-0.035-5 % ptmd Apply 1 Each to affected area as needed. traMADol (ULTRAM) 50 mg tablet Take 50 mg by mouth every 6 hours as needed for pain. albuterol HFA (PROVENTIL HFA, VENTOLIN HFA) 90 mcg/actuation inhaler Inhale 2 Puffs as instructed every 4 hours as needed for wheezing/shortness of breath. WALKER ROLLATOR SEAT WITH 6 WHEELS - RED For ambulation nitroglycerin (NITROLINGUAL) 400 mcg/spray spray one every 5 minutes x3 as needed (Patient taking differently: Dissolve 1 [place] under the tongue every 5 minutes as needed for chest pain.) Bacillus coagulans/inulin (PROBIOTIC WITH PREBIOTIC ORAL) Take 1 capsule by mouth once daily. aspirin 81 mg chewable tablet Take 1 tablet by mouth once daily. Cholecalciferol, Vitamin D3, 125 mcg (5,000 unit) cap Take 1 capsule by mouth once daily. Biotin 1 mg tab Take 1 tablet by mouth once daily. multivitamin tablet Take [...] Use Smoking status: Never Smokeless tobacco: Never Vaping Use Vaping status: Never Used Substance Use Topics Alcohol use: No Drug use: No PHYSICAL EXAM BP 128/62 Pulse 68 Temp 36.5 ?C (97.7 ?F) (Temporal) Resp 16 Wt 72.6 kg (160 lb) SpO2 97% BMI 29.84 kg/m? General Appearance: well appearing, in no acute distress, alert Eyes: conjunctiva pink and moist, no icterus, sclera white, non-injected Ears: external ears normal to inspection and palpation, canals clear, Left tympanic membrane normal. , Right tympanic membrane normal Nose/sinus: No sinus tenderness Neck: Thyroid normal size and symmetric without palpable nodules, Neck supple, No adenopathy Lymph nodes: No cervical lymphadenopathy and No supraclavicular lymphadenopathy Lungs: Lungs clear to auscultation. No wheezing, rhonchi, rales. Heart: RRR without murmur, gallop, or rubs. No ectopy Health maintenance reviewed with patient: BP Controlled (<130/80) Never done Influenza Vaccine(1) due on 12/20/2023 Diabetic Foot Exam due on 02/01/2024 Spirometry due on 08/18/2024 Covid-19 Vaccine( season) due on 01/12/2025 HbA1C due on 03/03/2024 Dilated Retinal Exam due on 03/24/2024 Urine Albumin:Creatinine Ratio due on 08/31/2024 LDL Cholesterol due on 08/31/2024 Annual PCP Team Chronic Disease Visit due on 01/12/2025 DTaP,Tdap,Td Vaccine(3 - Td or Tdap) due on 07/31/2031 Bone Density Screening Completed Advance Directive Discussion Completed RSV Vaccine Completed Hepatitis C Screening Completed Shingrix Vaccine Completed Pneumococcal Vaccine: 65+ Completed Mammogram Screening Discontinued Colorectal Cancer Screening Discontinued DATA REVIEWED: No new labs ASSESSMENT/PLAN: 1. Shortness of breath - ICD9: 786.05, ICD10: R06.02 (primary diagnosis) Limited antibiotic usage due to allergies. Will start on a z-pack Prednisone tries to be avoided due to DM1 but with pump is an option of needed. Pateint to call if symptoms persist F/u depending on CXR results. - XR CHEST 2V FRONTAL/LAT 2. Wheezing - ICD9: 786.07, ICD10: R06.2 As above - XR CHEST 2V FRONTAL/LAT 3. Acute recurrent sinusitis, unspecified location - ICD9: 461.9, ICD10: J01.91 - Will begin treatment with as per antibiotic as written, see orders - Supportive care with plenty of fluids, rest, and analgesia prn. - Follow up in 3-5 days if symptoms persist or worsen. Prescription instructions reviewed with patient as applicable. Potential red flag symptoms discussed with the patient. Reviewed appropriate action plan to take if red flag symptoms occur. Patient agreeable to treatment plan. Sultana Harvey APRN.CNP CNOV Observed: 01/25/2024 1:20 PM Status: COMPLETED Source: [facility] Office Visit (INTMWS) MCKAYLA RUSSO ([id number]) 1945 F Date Time Provider Department 01/25/24 1:20 PM SULTANA HARVEY INTLASHAUN During your visit today, we recorded the following information about you: Temperature Pulse Respiration Blood pressure 97.7 degrees 68/minute 16/minute 128/62 Weight 72.6 kg Sultana Harvey APRN.CNP 01/25/2024 1:56 PM Signed CC: Patient presents with: Recheck: Covid positive, wheezing at night HPI Mckayla Russo is a 78 year old female who presents today for ongoing illness. Illness started 12/31 and tested positive for COVID on 01/07. Was seen virtually on the and prescribed Augmentin. Took Augmentin as ordered but not feeling any better. Has been coughing up clear sputum, shortness of breath with minimal exertion, wheezing, hot/cold flashes, dizziness, weakness, sinus congestion, and let ear pain. Is on an insulin pump that she has a chart to let her know how much to give and when. Denies chest pain, edema, palpitations, severe headaches, N/V/D, sore throat, or ear drainage. Has been using saline nasal spray and afrin one time. Also tried mucinex but with no improvement. REVIEW OF SYSTEMS See HPI PAST MEDICAL HISTORY Diagnosis Date Abnormal mammogram, unspecified left breast BPPV (benign paroxysmal positional vertigo) 02/11/2015 BPV (benign positional vertigo) CAD (coronary artery disease) Carotid stenosis CARPAL TUNNEL BILATERRAL 08/08/2005 Coronary artery disease involving [place] coronary artery Dr. 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 ([facility]) 12/06/2018 Other and unspecified hyperlipidemia Other forms of migraine Other psoriasis Postsurgical percutaneous transluminal coronary angioplasty status Rheumatoid arthritis(714.0) RLS (restless legs syndrome) 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 benzonatate (TESSALON PERLES) 100 mg capsule Take 1 capsule by mouth three times a day as needed for cough. zolpidem (AMBIEN) 10 mg Take 1 tablet by mouth at bedtime as needed (insomnia) for up to 30 days. hydrOXYchloroQUINE (PLAQUENIL) 200 mg tablet Take 1.5 tablets by mouth once daily. nystatin (MYCOSTATIN) powder Apply 1 application to affected area three times a day. clopidogrel (PLAVIX) 75 mg tablet Take 1 tablet by mouth once daily. atorvastatin (LIPITOR) 40 mg tablet Take 1 tablet by mouth once daily. pramipexole (MIRAPEX) 1 mg tablet Take 2 tablets by mouth daily at bedtime. neomycin 500 mg tablet Take 1 tablet by mouth every 12 hours. (Patient not taking: Reported on 11/25/2023) metoclopramide HCl (REGLAN) 5 mg tablet Take 1 tablet by mouth every 6 hours for 30 days; administer 30 minutes before a meal. Insulin Syringe-Needle U-100 (BD INSULIN SYRINGE ULTRA-FINE) 1 mL 31 gauge x 16 Use 4 syringes daily if insulin pump fails blood sugar diagnostic (ACCU-CHEK GUIDE TEST STRIPS) test strip Use with blood glucose test upto four times daily insulin lispro (HUMALOG U-100 INSULIN) 100 unit/mL injection as directed in Insulin pump up to 110 units daily. Dx E10.65 losartan (COZAAR) 100 mg tablet Take 1 tablet by mouth once daily. diclofenac sodium (VOLTAREN ARTHRITIS PAIN TOPICAL) Apply 2 g to affected area as needed (pain). lidocain-me.rfqrujq-xwkt-oitss 0.5-20-0.035-5 % ptmd Apply 1 Each to affected area as needed. traMADol (ULTRAM) 50 mg tablet Take 50 mg by mouth every 6 hours as needed for pain. albuterol HFA (PROVENTIL HFA, VENTOLIN HFA) 90 mcg/actuation inhaler Inhale 2 Puffs as instructed every 4 hours as needed for wheezing/shortness of breath. WALKER ROLLATOR SEAT WITH 6 WHEELS - RED For ambulation nitroglycerin (NITROLINGUAL) 400 mcg/spray spray one every 5 minutes x3 as needed (Patient taking differently: Dissolve 1 [place] under the tongue every 5 minutes as needed for chest pain.) Bacillus coagulans/inulin (PROBIOTIC WITH PREBIOTIC ORAL) Take 1 capsule by mouth once daily. aspirin 81 mg chewable tablet Take 1 tablet by mouth once daily. Cholecalciferol, Vitamin D3, 125 mcg (5,000 unit) cap Take 1 capsule by mouth once daily. Biotin 1 mg tab Take 1 tablet by mouth once daily. multivitamin tablet Take [...] Use Smoking status: Never Smokeless tobacco: Never Vaping Use Vaping status: Never Used Substance Use Topics Alcohol use: No Drug use: No PHYSICAL EXAM BP 128/62 Pulse 68 Temp 36.5 ?C (97.7 ?F) (Temporal) Resp 16 Wt 72.6 kg (160 lb) SpO2 97% BMI 29.84 kg/m? General Appearance: well appearing, in no acute distress, alert Eyes: conjunctiva pink and moist, no icterus, sclera white, non-injected Ears: external ears normal to inspection and palpation, canals clear, Left tympanic membrane normal. , Right tympanic membrane normal Nose/sinus: No sinus tenderness Neck: Thyroid normal size and symmetric without palpable nodules, Neck supple, No adenopathy Lymph nodes: No cervical lymphadenopathy and No supraclavicular lymphadenopathy Lungs: Lungs clear to auscultation. No wheezing, rhonchi, rales. Heart: RRR without murmur, gallop, or rubs. No ectopy Health maintenance reviewed with patient: BP Controlled (<130/80) Never done Influenza Vaccine(1) due on 12/20/2023 Diabetic Foot Exam due on 02/01/2024 Spirometry due on 08/18/2024 Covid-19 Vaccine( season) due on 01/12/2025 HbA1C due on 03/03/2024 Dilated Retinal Exam due on 03/24/2024 Urine Albumin:Creatinine Ratio due on 08/31/2024 LDL Cholesterol due on 08/31/2024 Annual PCP Team Chronic Disease Visit due on 01/12/2025 DTaP,Tdap,Td Vaccine(3 - Td or Tdap) due on 07/31/2031 Bone Density Screening Completed Advance Directive Discussion Completed RSV Vaccine Completed Hepatitis C Screening Completed Shingrix Vaccine Completed Pneumococcal Vaccine: 65+ Completed Mammogram Screening Discontinued Colorectal Cancer Screening Discontinued DATA REVIEWED: No new labs ASSESSMENT/PLAN: 1. Shortness of breath - ICD9: 786.05, ICD10: R06.02 (primary diagnosis) Limited antibiotic usage due to allergies. Will start on a z-pack Prednisone tries to be avoided due to DM1 but with pump is an option of needed. Pateint to call if symptoms persist F/u depending on CXR results. - XR CHEST 2V FRONTAL/LAT 2. Wheezing - ICD9: 786.07, ICD10: R06.2 As above - XR CHEST 2V FRONTAL/LAT 3. Acute recurrent sinusitis, unspecified location - ICD9: 461.9, ICD10: J01.91 - Will begin treatment with as per antibiotic as written, see orders - Supportive care with plenty of fluids, rest, and analgesia prn. - Follow up in 3-5 days if symptoms persist or worsen. Prescription instructions reviewed with patient as applicable. Potential red flag symptoms discussed with the patient. Reviewed appropriate action plan to take if red flag symptoms occur. Patient agreeable to treatment plan. Sultana Harvey APRN.[employer] [employer] Allergies As of Date: 01/25/2024 Noted Allergy Reaction AGGRENOX (ASPIRIN-DIPYRIDAMOLE) 12/18/2008 Comments: MIGRAINES AND VOMITING AMITRIPTYLINE 11/09/2012 14 - Other: See Comments Comments: Confusion, falls CEPHALEXIN (BULK) 05/12/2008 8 - GI Upset CYMBALTA (DULOXETINE) 06/07/2015 16 - Unknown DOXYCYCLINE 06/11/2011 8 - GI Upset Comments: headache DURICEF (CEFADROXIL) 01/10/2005 4 - Hives EPHEDRINE 01/10/2005 14 - Other: See Comments Comments: tachycardia, but pt. states she still uses nose spray IODINE 07/29/2006 9 - Itching Comments: itching after prolonged use ISOLONE FORTE 04/06/2023 7 - Swelling LEVAQUIN (LEVOFLOXACIN) 05/26/2012 14 - Other: See Comments Comments: Achilles tendon problem LYRICA (PREGABALIN) 05/26/2012 14 - Other: See Comments Comments: Dizziness at 225mg twice daily NORTRIPTYLINE 02/11/2013 14 - Other: See Comments Comments: vertigo OXYCODONE 01/21/2021 1 - Mental Status Change PERCOCET (OXYCODONE-ACETAMINOPHEN)05/29/2010 16 - Unknown SULFA (SULFONAMIDE ANTIBIOTICS) 01/10/2005 4 - Hives Comments: blisters Date Reviewed: 01/25/2024 Reviewed by: Michelle Baird MA - Fully Assessed Reason for Visit: Recheck [92] Cmt: Covid positive, wheezing at night Primary Visit Diagnosis:Shortness of breath [R06.02] Other Visit Diagnoses:Wheezing [R06.2] Acute recurrent sinusitis, unspecified location [J01.91] Order(s):XR CHEST 2V FRONTAL/LAT [[id number]] Order #: [id number] FUTURE azithromycin (ZITHROMAX Z-JOSIE) 250 mg tabletTake 2 tablets day one, then, 1 tablet daily until gone.Disp: 6 tabletRfl: 0 Prescriptions as of 01/25/2024 - azithromycin (ZITHROMAX Z-JOSIE) 250 mg tablet Take 2 tablets day one, then, 1 tablet daily until gone. - amLODIPine (NORVASC) 5 mg tablet Take 1 tablet by mouth once daily. - benzonatate (TESSALON PERLES) 100 mg capsule Take 1 capsule by mouth three times a day as needed for cough. - zolpidem (AMBIEN) 10 mg Take 1 tablet by mouth at bedtime as needed (insomnia) for up to 30 days. - hydrOXYchloroQUINE (PLAQUENIL) 200 mg tablet Take 1.5 tablets by mouth once daily. - nystatin (MYCOSTATIN) powder Apply 1 application to affected area three times a day. - clopidogrel (PLAVIX) 75 mg tablet Take 1 tablet by mouth once daily. - atorvastatin (LIPITOR) 40 mg tablet Take 1 tablet by mouth once daily. - pramipexole (MIRAPEX) 1 mg tablet Take 2 tablets by mouth daily at bedtime. - neomycin 500 mg tablet Take 1 tablet by mouth every 12 hours. - metoclopramide HCl (REGLAN) 5 mg tablet Take 1 tablet by mouth every 6 hours for 30 days; administer 30 minutes before a meal. - Insulin Syringe-Needle U-100 (BD INSULIN SYRINGE ULTRA-FINE) 1 mL 31 gauge x 5/16 Use 4 syringes daily if insulin pump fails - blood sugar diagnostic (ACCU-CHEK GUIDE TEST STRIPS) test strip Use with blood glucose test upto four times daily - insulin lispro (HUMALOG U-100 INSULIN) 100 unit/mL injection as directed in Insulin pump up to 110 units daily. Dx E10.65 - losartan (COZAAR) 100 mg tablet Take 1 tablet by mouth once daily. - diclofenac sodium (VOLTAREN ARTHRITIS PAIN TOPICAL) Apply 2 g to affected area as needed (pain). - lidocain-me.dfunjtx-aeko-xflrw 0.5-20-0.035-5 % ptmd Apply 1 Each to affected area as needed. - traMADol (ULTRAM) 50 mg tablet Take 50 mg by mouth every 6 hours as needed for pain. - albuterol HFA (PROVENTIL HFA, VENTOLIN HFA) 90 mcg/actuation inhaler Inhale 2 Puffs as instructed every 4 hours as needed for wheezing/shortness of breath. - WALKER ROLLATOR SEAT WITH 6 WHEELS - RED For ambulation - nitroglycerin (NITROLINGUAL) 400 mcg/spray spray one every 5 minutes x3 as needed - Bacillus coagulans/inulin (PROBIOTIC WITH PREBIOTIC ORAL) Take 1 capsule by mouth once daily. - aspirin 81 mg chewable tablet Take 1 tablet by mouth once daily. - Cholecalciferol, Vitamin D3, 125 mcg (5,000 unit) cap Take 1 capsule by mouth once daily. - Biotin 1 mg tab Take 1 tablet by mouth once daily. - multivitamin tablet Take 1 tablet by mouth once daily. - acetaminophen (TYLENOL 8 HOUR) 650 mg CR tablet Take 1 tablet by mouth every 8 hours as needed. Problem List As Of Date 01/25/2024 Noted Resolved Hyperlipidemia [E78.5] Hypertension [I10] Coronary artery disease involving [place]* 09/29/2019 Dizziness and Giddiness [R42] 04/30/2009 Postsurgical Percutaneous Transluminal Coronary* 04/30/2009 Mild intermittent asthma without complication [* 09/29/2019 Other psoriasis [L40.8] 09/29/2019 Disorder of bone and cartilage [M89.9, M94.9] 09/29/2019 ESOPHAGITIS [530.1] Diverticulosis of Colon (without Mention of Hem* 04/30/2009 External Hemorrhoids without Mention of Complic* 04/30/2009 Internal Hemorrhoids without Mention of Complic* 04/30/2009 Allergic Rhinitis, Cause Unspecified [J30.9] 01/13/2005 06/25/2015 Ingrowing Nail [L60.0] 03/20/2005 04/30/2009 Pain in Soft Tissues of Limb [M79.609] 03/20/2005 04/30/2009 CARPAL TUNNEL BILATERRAL [M13.149] 08/08/2005 09/29/2019 Nonspecific Abnormal Results of Liver Function *08/08/2005 04/30/2009 OVERWEIGHT [E66.9] 08/08/2005 04/30/2009 Dermatophytosis of Nail [B35.1] 09/04/2005 04/30/2009 Depression [F32.5] 12/18/2005 Anxiety state [F41.1] 12/18/2005 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] 03/23/2006 04/30/2009 Pain in Joint, Shoulder Region [M25.519] 05/22/2006 04/30/2009 Neck Sprain and Strain [S13.9XXA] 05/22/2006 04/30/2009 Onychia and Paronychia of Toe [L03.039] 08/11/2006 04/30/2009 Cellulitis and Abscess of Foot, except Toes [L0*08/24/2006 04/30/2009 Rheumatoid arthritis (HCC) [M06.9] 12/04/2006 Anemia, unspecified [D64.9] 12/04/2006 09/29/2019 Sleep apnea [G47.30] 03/08/2007 Acute Bronchitis [J20.9] 05/18/2008 04/30/2009 Tenosynovitis of Foot and Ankle [M65.979] 06/29/2008 04/30/2009 Vitamin deficiency [E56.9] 04/23/2009 Routine general medical examination at [facility]*04/30/2009 06/25/2015 Class: Chronic Routine gynecological examination [Z01.419] 04/30/2009 06/25/2015 Class: Chronic Diverticulosis of colon [K57.30] 04/30/2009 Cerebral infarction (HCC) [I63.9] 07/16/2009 Pain in joint, lower leg [M25.569] 01/21/2010 06/25/2015 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] 04/25/2010 Restless legs syndrome (RLS) [G25.81] 06/25/2010 Calcifying tendinitis of shoulder [M75.30] 07/09/2010 Venous insufficiency [I87.2] 09/08/2011 Thoracic or lumbosacral neuritis or radiculitis*03/01/2012 09/29/2019 Abnormality of gait [R26.9] 03/01/2012 06/25/2015 Vertigo [R42] 02/02/2013 06/25/2015 Cervicalgia [M54.2] 08/04/2014 Gait abnormality [R26.9] 08/04/2014 BPPV (benign paroxysmal positional vertigo) [H8*02/11/2015 09/29/2019 Obstructive sleep apnea syndrome [G47.33] 06/08/2015 Mixed hyperlipidemia [E78.2] 06/08/2015 GERD (gastroesophageal reflux disease) [K21.9] 08/09/2015 RLS (restless legs syndrome) [G25.81] 08/09/2015 Insomnia [G47.00] 08/09/2015 Vertigo [R42] 08/12/2015 09/29/2019 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/2015 Coronary artery disease [I25.10] 08/29/2015 Mild nonproliferative diabetic retinopathy of b*12/06/2018 Hypoglycemia unawareness in type 1 diabetes emre*01/18/2019 Other dysphagia [R13.19] 07/18/2019 09/29/2019 DKA (diabetic ketoacidoses) ([facility]) [E11.10] 09/28/2019 10/18/2020 Asthma [J45.909] 09/29/2019 SHERLYN (acute kidney injury) ([facility]) [N17.9] 09/29/2019 09/30/2019 H/O multiple allergies [Z88.9] 06/19/[address] [Z96.41] 07/10/2020 Type 1 diabetes mellitus with mild nonprolifera*10/18/2020 Type 1 diabetes mellitus with diabetic neuropat*10/18/2020 Class 2 severe obesity with serious comorbidity*10/18/2020 Bilateral carotid artery stenosis [I65.23] 05/10/2021 Prescriptions ordered this encounter Disp Refills Start End AZITHROMYCIN 250 MG TABLET 6 ta* 0 01/25/2024 01/25/2024 Sig: Take 2 tablets day one, then, 1 tablet daily until gone. AZITHROMYCIN 250 MG TABLET 6 ta* 0 01/25/2024 01/30/2024 Sig: Take 2 tablets day one, then, 1 tablet daily until gone. Medications Discontinued During This Encounter Prescriptions - azithromycin (ZITHROMAX Z-JOSIE) 250 mg tablet (Discontinued) Take 2 tablets day one, then, 1 tablet daily until gone. Encounter Status:Closed by SULTANA HARVEY on 01/25/24 ALLERGIES DATE TYPE / CODE NAME / CODE REACTION SEVERITY SOURCE 04/06/2023 DRUG/15160528 3(SNOMED CT) ISOLONE FORTE SWELLING [facility] 01/21/2021 DRUG INGREDI/91433 1003(SNOMED CT) OXYCODONE Mental Chg [facility] 06/07/2015 DRUG INGREDI/82653 1003(SNOMED CT) DULOXETINE UNKNOWN [facility] 02/11/2013 DRUG INGREDI/53931 1003(SNOMED CT) NORTRIPTYLINE OTHER: SEE [facility] 11/09/2012 DRUG INGREDI/41042 1003(SNOMED CT) AMITRIPTYLINE OTHER: SEE C [facility] 05/26/2012 DRUG INGREDI/65754 1003(SNOMED CT) LEVOFLOXACIN OTHER: SEE C [facility] 05/26/2012 DRUG INGREDI/81236 1003(SNOMED CT) PREGABALIN OTHER: SEE C [facility] 06/11/2011 DRUG INGREDI/97343 1003(SNOMED CT) DOXYCYCLINE GI UPSET [facility] 05/29/2010 DRUG/45751862 3(SNOMED CT) OXYCODONE-ACETAMINOPHE N UNKNOWN [facility] 12/18/2008 DRUG/20663861 3(SNOMED CT) ASPIRIN-DIPYRIDAMOLE OTHER: SEE [facility] 05/12/2008 DRUG/08504680 3(SNOMED CT) CEPHALEXIN (BULK) GI UPSET [facility] 07/29/2006 DRUG INGREDI/43414 1003(SNOMED CT) IODINE ITCHING [facility] 01/10/2005 DRUG INGREDI/05375 1003(SNOMED CT) EPHEDRINE OTHER: SEE [facility] 01/10/2005 Drug Class/0994463 03(SNOMED CT) SULFA (SULFONAMIDE ANTIBIOTICS) HIVES [facility] 01/10/2005 DRUG INGREDI/42921 1003(SNOMED CT) CEFADROXIL HIVES [facility] ENCOUNTERS ADMIT/DISCHARGE ACCOUNT NUMBER ADMITTING ENCOUNTER CLASS LOCATION SOURCE 12/28/2024/ 5 [id number] Ambulatory [facility] HospitalBuild ing:ENWSTR [facility] 12/12/2024/ 5 [id number] Ambulatory [facility] HospitalBuild ing:WOVL [facility] 11/29/2024/ 5 [id number] Ambulatory [facility] HospitalBuild ing:WODENIS [facility] 11/25/2024/ 5 [id number] Ambulatory [facility] HospitalBuild ing:WOLB [facility] 11/10/2024 [id number] Ambulatory [facility] HospitalBuild ing:WOR2 [facility] 11/06/2024/ 5 [id number] Ambulatory [facility] HospitalBuild ing:WOUCA [facility] 10/26/2024/ 5 [id number] Ambulatory [facility] HospitalBuild ing:STRH [facility] 09/22/2024/ 5 [id number] Ambulatory [facility] HospitalBuild ing:EDEDME [facility] 09/20/2024/ 5 [id number] Ambulatory [facility] HospitalBuild ing:ENWSTR [facility] 09/16/2024/ 5 [id number] Ambulatory [facility] HospitalBuild ing:WOLB [facility] 09/13/2024 [id number] [facility] [id number] [id number] [facility]24 [id number] Ambulatory Buildin[address] [place] [address] 09/05/2024/ 5 [id number] Ambulatory [facility] HospitalBuild ing:WOIA [facility] 08/29/2024 [id number] Ambulatory [facility] HospitalBuild ing:WORG [facility] 08/29/2024/ 5 [id number] Ambulatory [facility] HospitalBuild ing:WOUC [facility] 07/26/2024 [id number] [facility] 06/06/2024/ 5 [id number] Ambulatory [facility] HospitalBuild ing:WOIA [facility] 05/30/2024/ 5 [id number] [facility] 05/23/2024/ 5 [id number] Ambulatory [facility] HospitalBuild ing:ENWSTR [facility] 05/16/2024/ 5 [id number] Ambulatory [facility] HospitalBuild ing:ENDIMT [facility] 04/14/2024/ 4 [id number] Ambulatory [facility] HospitalBuild ing:WOIA [facility] 02/22/2024/ 4 [id number] Ambulatory [facility] HospitalBuild ing:WOIA [facility] 02/16/2024/ 4 [id number] Ambulatory [facility] HospitalBuild ing:ENWSTR [facility] 02/15/2024/ 4 [id number] Ambulatory [facility] HospitalBuild ing:ENDIMT [facility] 01/25/2024/ 4 [id number] Ambulatory [facility] HospitalBuild ing:WORG [facility] 01/25/2024/ 4 [id number] Ambulatory [facility] HospitalBuild ing:WOLB [facility] 01/25/2024/ 4 [id number] [facility] HospitalBuild ing:WOIA [facility] PAYERS ENCOUNTER GUARANTOR PAYER SUBSCRIBER SOURCE 12/28/2024 Primary Insurance:MEDICARE A AND BPolicy Number: [id number] Date:9964-09-63Ghw n Name:Miroslava VARGAS: [id number] [place] [place] [address] [place] [address] 12/28/2024 Secondary Insurance:LEONEL RONBS FEP PPOPolicy Number: [id number] Date:0466-80-64Dzx n Name:Shayla VARGAS: [id number] [place] [address] [facility] 12/12/2024 Primary Insurance:MEDICARE A AND BPolicy Number: [id number] Date:7161-48-47Hul n Name:Miroslava MASSEYB: [id number] [place] [address] [facility] 12/12/2024 Secondary Insurance:[employer]HE[employer] BCBS FEP PPOPolicy Number: [id number] Date:6562-13-38Bjg n Name:Shayla MASSEYB: [id number] [place] [address] [facility] 11/29/2024 Primary Insurance:MEDICARE A AND BPolicy Number: [id number] Date:6507-16-14Lfj n Name:Miroslava VARGAS: [id number] [place] [address] [facility] 11/29/2024 Secondary Insurance:ANTHEM BCBS FEP PPOPolicy Number: [id number] Date:4333-88-54Cgc n Name:Shayla MASSEYB: [id number] [place] [address] [facility] 11/25/2024 Primary Insurance:MEDICARE A AND BPolicy Number: [id number] Date:8997-93-42Ram n Name:Miroslava MASSEYB: [id number] [place] [address] [facility] 11/25/2024 Secondary Insurance:[employer]HEM BCBS FEP PPOPolicy Number: [id number] Date:4698-70-96Gyv n Name:Shayla MASSEYB: [id number] [place] [address] [facility] 11/10/2024 Primary Insurance:MEDICARE A AND BPolicy Number: [id number] Date:8967-31-59Rkw n Name:Miroslava MASSEYB: [id number] [place] [address] [facility] 11/10/2024 Secondary Insurance:[employer]HEM BCBS FEP PPOPolicy Number: [id number] Date:5105-49-87Wml n Name:Shayla VARGAS: [id number] [address] [place] [address] [facility] 11/06/2024 Primary Insurance:MEDICARE A AND BPolicy Number: [id number] Date:5876-59-99Jxw n Name:Miroslava VARGAS: [id number] [place] [address] [facility] 11/06/2024 Secondary Insurance:[employer]HEM BCBS FEP PPOPolicy Number: [id number] Date:7366-15-62Rvv n Name:Shayla VARGAS: [id number] [place] [address] [facility] 10/26/2024 Primary Insurance:MEDICARE A AND BPolicy Number: [id number] ve Date:6004-52-15Yax n Name:Miroslava VARGAS: [id number] [place] [address] [facility] 10/26/2024 Secondary Insurance:[employer]HEM BCBS FEP PPOPolicy Number: [id number] Date:7260-33-41Shp n Name:Shayla VARGAS: [id number] [address] [facility] [address] [facility] 09/22/2024 Primary Insurance:MEDICARE A AND BPolicy Number: [id number] Date:4581-05-58Jeb n Name:Miroslava VARGAS: [id number] [address] [facility] [address] [facility] 09/22/2024 Secondary Insurance:[employer]HEM BCBS FEP PPOPolicy Number: [id number] Date:7163-36-21Zuv n Name:Shayla MASSEYB: [id number] [place] [address] [facility] 09/20/2024 Primary Insurance:MEDICARE A AND BPolicy Number: [id number] Date:7359-80-57Dsk n Name:Miroslava MASSEYB: [id number] [place] [address] [facility] 09/20/2024 Secondary Insurance:[employer]HEM BCBS FEP PPOPolicy Number: [id number] Date:4525-69-39Iji n Name:Shayla VARGAS: [id number] [place] [address] [facility] 09/16/2024 Primary Insurance:MEDICARE A AND BPolicy Number: [id number] Date:3879-79-31Aeq n Name:Miroslava MASSEYB: [id number] [place] [address] [facility] 09/16/2024 Secondary Insurance:[employer]HEM BCBS FEP PPOPolicy Number: [id number] Date:6551-27-25Sgs n Name:Shayla MASSEYB: [id number] [facility] [place] [address] [facility] 09/13/2024 MCKAYLA MASSEYB: [id number] [facility] [place] [address]Ebw: () Primary Insurance:MEDICARE A AND BPolicy Number: [id number] ve Date:0365-67-56Bqg n Name:ZEE MASSEYB: [id number] [facility] [place] [address] [facility] 09/13/2024 Secondary Insurance:ANTHEM HMO PPO POSPolicy Number: [id number] Date:7722-25-60Aqd n Name:MANAGED CARE MCKAYLA RUSSODOB: [id number] [facility] [place] [address] [facility] 09/06/2024 MCKAYLA RUSSODOB: [id number] [facility] [place], [place] [address]Rpt: (HP) Primary Insurance:MEDICARE A AND BPolicy Number: [id number] Date:3358-24-42Afl n Name:CARE MCKAYLA RUSSODOB: [id number] [facility] [place] [address] [place] [address] 09/06/2024 Secondary Insurance:[facility] PPO POSPolicy Number: [id number] Date:3851-01-30Uwb n Name:MANAGED CARE MCKAYLA RUSSODOB: [id number] [facility] [place] [address] [place] [address] 09/06/2024 MCKAYLA RUSSODOB: [facility] [place] [address]Yyh: (HP) Primary Insurance:MEDICARE A AND BPolicy Number: [id number] Date:6362-86-72Had n Name:CARE MCKAYLA RUSSODOB: [id number] [facility] [address] [facility] 09/06/2024 Secondary Insurance:[facility] PPO POSPolicy Number: [id number] Date:8490-43-15Wqb n Name:MANAGED CARE MCKAYLA RUSSODOB: [id number] [facility] [place] [address] [facility] 09/06/2024 MCKAYLA RUSSODOB: [id number] [facility] [place] [address]Uaq: () Primary Insurance:MEDICARE A AND BPolicy Number: [id number] Date:8834-81-73Dia n Name:ZEE VARGAS: [id number] [place] [address] [facility] 09/06/2024 Secondary Insurance:ANTHEM HMO PPO POSPolicy Number: [id number] Date:7082-38-36Bwu n Name:MANAGED CARE MCKAYLA MASSEYB: [id number] [place], [place] [address] [place] [address] 09/05/2024 Primary Insurance:MEDICARE A AND BPolicy Number: [id number] Date:0189-62-67Pmf n Name:Miroslava VARGAS: [id number] [place], [place] [address] [place] [address] 09/05/2024 Secondary Insurance:[employer]HEM BCBS FEP PPOPolicy Number: [id number] Date:7296-74-11Btj n Name:Shayla VARGAS: [id number] [place], [place] [address] [place] [address] 08/29/2024 Primary Insurance:MEDICARE A AND BPolicy Number: [id number] Date:1442-84-35Vef n Name:Miroslava VARGAS: [id number] [place], [place] [address] [place] [address] 08/29/2024 Secondary Insurance:[employer]HEM BCBS FEP PPOPolicy Number: [id number] Date:1971-88-64Cci n Name:Shayla VARGAS: [id number] [place], [place] [address] [place] [address] 08/29/2024 Primary Insurance:MEDICARE A AND BPolicy Number: [id number] Date:0961-51-72Egn n Name:Miroslava MASSEYB: [id number] [place] [address] [facility] 08/29/2024 Secondary Insurance:ANTHEM BCBS FEP PPOPolicy Number: [id number] Date:7783-26-71Vlt n Name:Shayla MASSEYB: [id number] [place], [place] [address] [place] [address] 07/26/2024 MCKAYLA MASSEYB: [id number] [place], [place] [address]Onc: () Primary Insurance:MEDICARE A AND BPolicy Number: [id number] Date:2806-66-91Rli n Name:CARE MCKAYLA MASSEYB: [id number] [place], [place] [address] [place] [address] 07/26/2024 Secondary Insurance:ANTHEM HMO PPO POSPolicy Number: [id number] Date:9348-41-21Njp n Name:MANAGED CARE MCKAYLA MASSEYB: [id number] [place], [place] [address] [place] [address] 06/06/2024 Primary Insurance:MEDICARE A AND BPolicy Number: [id number] Date:2144-07-99Mvo n Name:Miroslava MASSEYB: [id number] [place], [place] [address] [place] [address] 06/06/2024 Secondary Insurance:ANTHEM BCBS FEP PPOPolicy Number: [id number] Date:4790-61-93Iwr n Name:Shayla MASSEYB: [id number] [place] [address] [facility] 05/30/2024 Primary Insurance:MEDICARE A AND BPolicy Number: [id number] ve Date:7337-55-47Zvb n Name:Miroslava MASSEYB: [id number] [place] [address] [facility] 05/30/2024 Secondary Insurance:ANTHEM BCBS FEP PPOPolicy Number: [id number] Date:3975-85-29Pyc n Name:Shayla MASSEYB: [id number] [place] [address] [facility] 05/23/2024 Primary Insurance:MEDICARE A AND BPolicy Number: [id number] Date:7526-45-97Dah n Name:Miroslava VARGAS: [id number] [address] [place] [facility] [place], [place] [address] [place] [address] 05/23/2024 Secondary Insurance:ANTHEM BCBS FEP PPOPolicy Number: [id number] Date:3910-12-81Ptp n Name:Shayla MASSEYB: [id number] [address] [facility] [place], [place] [address] [place] [address] 05/16/2024 Primary Insurance:MEDICARE A AND BPolicy Number: [id number] Date:0649-39-52Pyr n Name:Miroslava MASSEYB: [id number] [place] [facility] [place] [address] [place] [address] 05/16/2024 Secondary Insurance:ANTHEM BCBS FEP PPOPolicy Number: [id number] Date:3245-32-82Fie n Name:Shayla VARGAS: [id number] [place] [facility], [place] [address] [place] [address] 04/14/2024 Primary Insurance:MEDICARE A AND BPolicy Number: [id number] Date:9871-41-86Vyr n Name:Miroslava MASSEYB: [id number] [place] [address] [facility] 04/14/2024 Secondary Insurance:ANTHEM BCBS FEP PPOPolicy Number: [id number] Date:3630-30-00Bqt n Name:Shayla VARGAS: [id number] [place] [address] [facility] 02/22/2024 Primary Insurance:MEDICARE A AND BPolicy Number: [id number] Date:6223-35-96Ale n Name:Miroslava VARGAS: [id number] [place] [address] [facility] 02/22/2024 Secondary Insurance:ANTHEM BCBS FEP PPOPolicy Number: [id number] Date:8644-14-67Svz n Name:Shayla VARGAS: [id number] [address] [facility] [address] [facility] 02/16/2024 Primary Insurance:MEDICARE A AND BPolicy Number: [id number] Date:1583-90-50Pkg n Name:Miroslava VARGAS: [id number] [place] [address] [facility] 02/16/2024 Secondary Insurance:ANTHEM BCBS FEP PPOPolicy Number: [id number] Date:7109-39-78Rcr n Name:Shayla VARGAS: [id number] [place] [address] [facility] 02/15/2024 Primary Insurance:MEDICARE A AND BPolicy Number: [id number] Date:6824-44-94Esl n Name:Miroslava VARGAS: [id number] [place] [address] [facility] 02/15/2024 Secondary Insurance:ANTHEM BCBS FEP PPOPolicy Number: [id number] Date:7156-53-95Lla n Name:Shayla VARGAS: [id number] [place] [address] [facility] 01/25/2024 Primary Insurance:MEDICARE A AND BPolicy Number: [id number] Date:3089-33-25Vel n Name:Miroslava MASSEYB: [id number] [address] [facility] [place] [address] [place] [address] 01/25/2024 Secondary Insurance:[employer]HEM BCBS FEP PPOPolicy Number: [id number] Date:3056-72-72Klh n Name:Shayla VARGAS: [id number] [place], [place] [address] [place] [address] 01/25/2024 Primary Insurance:MEDICARE A AND BPolicy Number: [id number] ve Date:2609-86-77Ska n Name:Miroslava MASSEYB: [id number] [place], [place] [address] [place] [address] 01/25/2024 Secondary Insurance:[employer]HEM BCBS FEP PPOPolicy Number: [id number] Date:6048-99-17Mcj n Name:Shayla MASSEYB: [id number] [place], [place] [address] [place] [address] 01/25/2024 Primary Insurance:MEDICARE A AND BPolicy Number: [id number] Date:6129-69-51Tps n Name:Miroslava VARGAS: [id number] [address] [place], [place] [address] [place] [address] 01/25/2024 Secondary Insurance:[employer]HEM BCBS FEP PPOPolicy Number: [id number] Date:4090-33-44Zcf n Name:Shayla RUSSOCHRIS: [id number] [place] [address] [facility]
--- NOTE | 2025-01-17 14:09 | CT_ITS ---
PROCEDURE: ABDOMEN/PELVIS WITH CONTRAST 01/17/2025 REASON FOR EXAM: L SIDE SOFT TISSUE MASS, POSSBIBLE HERNIA TECHNIQUE: Procedure Code: CTABDPELW Modality: CT Procedure: ABDOMEN/PELVIS WITH CONTRAST Coronal and Sagittal reconstruction series were provided. CONTRAST: Isovue 370 VOLUME: 100 mL One or more dose reduction techniques were used (e.g., Automated exposure control, adjustment of the mA and/or kV according to patient size, use of iterative reconstruction technique. RADIATION DOSE SUMMARY: CTDlvol: 39.02 mGy DLP: 887.48 mGycm COMPARISON: 2019 FINDINGS: Lung bases: Chronic interstitial changes with honeycombing in the periphery of both lung hurt and minimal dependent atelectasis Liver: Normal size. No mass. Gallbladder: Unremarkable Spleen: Normal size. Pancreas: Normal size without evidence of mass surrounding inflammation or ductal dilation. Adrenals: Unremarkable Kidneys: No obstructive uropathy or suspicious solid renal lesion, there are nonobstructing stones in both kidneys. Bladder: Unremarkable Reproductive Organs: Uterus is present, the endometrium can not be accurately evaluated with CT. No suspicious cystic mass or free fluid in the pelvis. Bowel: No CT evidence of obstruction. Retained stool noted throughout the entirety of the colon with a few scattered colonic diverticula but no CT evidence of acute diverticulitis. Appendix: Normal appendix seen on coronal recon images 42 through 46 Lymph nodes: No suspicious mesenteric or retroperitoneal lymphadenopathy Vasculature: Peripheral calcifications in the abdominal aorta without aneurysm Peritoneum / Retroperitoneum: No free fluid or air Bones: Degenerative bony changes No CT evidence of hernia CT/Abdomen/Pelvis WITH Contrast IMPRESSION: No suspicious solid organ abnormality, nonobstructing renal stones Uterus is present, the endometrium can not be accurately evaluated with CT. Retained stool throughout the colon No free intraperitoneal fluid, air, or suspicious adenopathy, normal appendix v isualized Reading Location: [id number]
[2025-01-17] MEDS: 0.9% Normal Saline (1000mL) 1,000 ML 999 ML IV (14:40)
[2025-01-17 14:51] VITALS: BMI 26.4
[2025-01-17 15:04] LABS: CREATININE FINGERSTICK < 1.0 mg/dL (0.55-1.02); EGFR FINGERSTICK > 60.0000 mL/min (>60)
== END | disposition home or self-care (01) ==
LOC: CT 14:03
PROVIDERS: PCP Internal Medicine; Referring Provider Internal Medicine Gastroenterology; Visit Provider Internal Medicine Gastroenterology
DX: R10.32 Left lower quadrant pain (principal)
CPT/HCPCS: 74177; Q9967

== ENCOUNTER → 2025-02-20 | Outpatient (CLI) | payer MEDICARE, BC, SELFPAY | END | disposition home or self-care (01) | LOC: CVS 12:56 | PROVIDERS: PCP Internal Medicine; Referring Provider Internal Medicine Cardiovascular Disease; Visit Provider Internal Medicine Cardiovascular Disease | DX: I35.0 Nonrheumatic aortic (valve) stenosis (principal); R01.1 Cardiac murmur, unspecified | CPT/HCPCS: 93306 ==

== ENCOUNTER 2025-03-13 10:13 | Emergency (ER) | payer MEDICARE, BC, SELFPAY ==
[2025-03-13 10:14] VITALS: BP 135/92; PULSE 59; RESP 18; TEMP 37.1; O2SAT 100; BMI 25.7
--- NOTE | 2025-03-13 10:48 | ED.VIS.LOWEX ---
HPI History of Present Illness HPI Narrative: Patient presents with left knee pain and swelling that has been getting worse over the past 3 days. Patient describes her pain as stabbing. Patient states it is worse with extension and with standing from a sitting position and sitting from a standing position. Patient states her pain is worse over the lateral aspect of her left knee. Patient noted some swelling over this area today. Patient denies any trauma or injury. Patient denies any paresthesias or weakness. Patient denies any fevers or chills. Patient denies any chest pain or shortness of breath. Chief Complaint: Lower Extremity Injury Informant: patient Onset/Context/Timing Onset: Days (3) Context: Gradual Onset Timing: Continuous Quality of Pain: Stabbing Location: Lateral aspect left knee Worsened by: Extension of the knee, sitting from a standing position, standing up Associated Symptoms Associated Symptoms: Negative for Parasthesia, Weakness or Loss of Funtion PFSH [facility] Medical History Aortic stenosis Wears glasses Wears dentures Insulin dependent diabetes mellitus High cholesterol History of steroid therapy Back pain Dietary restriction Gastric reflux History of edema CPAP (continuous positive airway pressure) dependence Non-smoker History of pain when walking Hypertension History of stress test History of echocardiogram Cardiology follow-up encounter Fall RLS (restless legs syndrome) Insomnia Esophagitis Diverticulosis of colon Coronary artery disease involving [place] coronary artery Carpal tunnel syndrome, bilateral Carotid stenosis CAD (coronary artery disease) BPPV (benign paroxysmal positional vertigo) Chronic constipation Insulin pump titration Presence of insulin pump Obesity Vitamin D deficiency Gastroenteritis Polymyalgia rheumatica Chronic rheumatic arthritis Diabetic neuropathy Type 1 diabetes mellitus COPD (chronic obstructive pulmonary disease) Essential (primary) hypertension Atherosclerosis of coronary artery of [place] heart without angina pectoris History of stroke Fatty liver Hyperlipidemia Incontinence Chronic neck and back pain Difficulty balancing Home Medications ?Medication ?Instructions ?Recorded ?Last Taken ?Type atorvastatin 40 mg tablet 40 mg PO QHS cholesterol 06/27/15 06/26/15 History clopidogrel 75 mg tablet 75 mg PO DAILY anti platelet 06/27/15 04/02/23 History albuterol sulfate 2.5 mg/3 mL 2.5 mg inhalation Q6H PRN 03/30/17 Unknown History (0.083 %) solution for nebulization Bronchodialation diclofenac sodium 1 % topical gel 2 g topical BID PRN 03/30/17 Unknown History (Voltaren) Pain/Inflammation multivitamin 1 tab PO QAM vitamin 03/30/17 Unknown History amlodipine 5 mg tablet 5 mg PO DAILY #90 tabs 09/22/18 04/08/23 Rx lactobacillus combination no.9 4 4,000 mmu cells PO DAILY supplement 10/14/18 Unknown History billion cell capsule (Adult 50 Plus Probiotic) biotin 1 mg capsule 1 mg PO DAILY 10/14/19 Unknown History aspirin 81 mg tablet,delayed 81 mg PO DAILY 07/05/21 04/02/23 History release (Adult Low Dose Aspirin) lancets (Accu-Chek Fastclix Lancet #200 ea 11/04/21 Unknown Rx Drum) cholecalciferol (vitamin D3) 125 125 mcg PO DAILY 05/28/22 Unknown History mcg (5,000 unit) tablet Humalog U-100 Insulin 100 unit/mL 100 unit subcut QDAY #90 mL 03/16/23 Unknown Rx subcutaneous solution (insulin lispro) albuterol sulfate 90 mcg/actuation 1 inh inhalation Q4H PRN shortness 04/06/23 Unknown History aerosol inhaler of breath or wheezing clonazepam 1 mg tablet 1 mg PO QHS 11/16/23 Unknown History nitroglycerin 0.4 mg sublingual 0.4 mg sublingual Q5-15M PRN chest 11/26/23 Unknown Rx tablet (Nitrostat) pain #25 tabs zolpidem 10 mg tablet (Ambien) 10 mg PO QHS 01/18/24 Unknown History losartan 100 mg tablet See Rx Instructions .Route 05/17/24 Unknown Rx .COMPLEX #90 tabs NaCl 0.9% 1,000 ml IV BOLUS ONCE #1,000 mL 01/03/25 Unknown Rx famotidine 40 mg tablet 40 mg PO ONCE #1 TAB 01/03/25 Unknown Rx fluticasone fur. 200 mcg-umeclid 1 ea inhalation QDAY 01/10/25 Unknown History 62.5 mcg-vilant 25 mcg inhalat.powder (Trelegy Ellipta) hydroxychloroquine 200 mg tablet 300 mg PO QDAY 01/10/25 Unknown History pramipexole 1 mg tablet 2 mg PO QHS 01/10/25 Unknown History diphenhydramine HCl 50 mg capsule 50 mg PO ONCE #1 cap 01/16/25 Unknown Rx prednisone 50 mg tablet See Rx Instructions .Route 01/16/25 Unknown Rx .COMPLEX #3 tabs sodium sul 1.479 gram-potas ch See Rx Instructions PO PER PKG DIR 01/30/25 Unknown Rx 0.188 gram-magnes sul 0.225 gram #24 tabs tablet (Sutab) Allergy/AdvReac Type Severity Reaction Status Date / Time amitriptyline Allergy Other Verified 03/13/25 10:16 cefadroxil (Cefadroxil) Allergy Hives Verified 03/13/25 10:16 ephedrine Allergy HEART RACES Verified 03/13/25 10:16 erythromycin estolate (From Allergy Angioedema, Verified 03/13/25 10:16 Ilosone) HEART RACING iodine Allergy Hives, Verified 03/13/25 10:16 ITCHING levofloxacin Allergy Unknown Verified 03/13/25 10:16 nortriptyline (Nortriptyline) Allergy Unknown Verified 03/13/25 10:16 oxycodone (Oxycodone) Allergy CONFUSION Verified 03/13/25 10:16 oxycodone HCl (From Percocet) Allergy CONFUSION Verified 03/13/25 10:16 Sulfa (Sulfonamide Allergy Rash Verified 03/13/25 10:16 Antibiotics) pregabalin (From Lyrica) AdvReac Severe Vomiting Verified 03/13/25 10:16 hydrochlorothiazide AdvReac Intermediate Hypotension Verified 03/13/25 10:16 acetaminophen (From Percocet) AdvReac Other Verified 03/13/25 10:16 aspirin (From Aggrenox) AdvReac Vomiting Verified 03/13/25 10:16 cephalexin AdvReac Nausea/Vom/ Verified 03/13/25 10:16 Diarrhea doxycycline AdvReac Nausea/Vom/ Verified 03/13/25 10:16 Diarrhea duloxetine HCl (From AdvReac HEADACHE, Verified 03/13/25 10:16 Cymbalta) STOMACH ACHE Family History Father , age 76 No problems noted. Mother , Age 74 Breast cancer Thyroid disorder Heart disease Valvular heart disease Brother Heart disease, Onset Age: 52 Heart valve/murmur Surgical History History of esophagogastroduodenoscopy (EGD) History of left heart catheterization (07/01/05) History of coronary artery stent placement (06/26/00) nasal growth removal H/O lumpectomy axillary cyst removal bilat hand surgery H/O shoulder surgery H/O breast biopsy H/O: Social History Smoking Status: Never smoker alcohol intake: never substance use type: does not use caffeine: No ROS ROS ED Constitutional Constitutional ED: Denies chills or fever(s) Eyes Eyes: Denies blurry vision or change in vision ENT ENT ED: Reports rhinorrhea; Denies sore throat Cardiovascular Cardiovascular: Denies chest pain or palpitations Respiratory/Chest Respiratory/Chest: Denies cough or dyspnea Gastrointestinal Gastrointestinal: Denies nausea or vomiting Genitourinary Genitourinary ED: Denies dysuria or hematuria Musculoskeletal Musculoskeletal: Reports back pain and neck pain Integumentary Denies abscess or rash Neurologic Neurologic: Reports headache(s); Denies weakness Allergic/Immunologic Allergic/Immunologic ED: Denies mouth swelling or urticaria EXAM Physical Exam Const Vital Signs: 03/13/25 10:14 Temperature 98.7 F Temperature Source Oral Pulse Rate 59 L Respiratory Rate 18 Blood Pressure 135/92 H Blood Pressure Mean 106 Pulse Ox 100 Oxygen Delivery Method Room Air Positive well nourished and well developed General Appearance ED: well developed and NAD HEENT Reports moist mucous membranes normocephalic and atraumatic Neck full ROM and supple Extremity Extremity Narrative: There is tenderness over the lateral aspect of the left knee and proximal fibula. There is no bony crepitance or step-off. There is no tenderness over the ankle. Range of motion was limited in all motions of the left knee secondary to pain. Strength is 5/5 bilaterally in the lower extremities. There are no sensory deficits noted. Pedal pulses are equal bilaterally. Neuro oriented x3, CN's II-XII intact bilaterally, moves all extremities and no sensory deficits noted Sensorium / Orientation: alert Motor Exam: strength 5/5 throughout Psych mental status grossly normal MDM MDM MDM Narrative Medical decision making narrative: Differential diagnosis includes DVT, fracture, contusion, and sprain. X-rays of the left knee will be obtained to assess for occult fracture. Venous duplex of the left lower extremity will be obtained to assess for DVT. Radiography Diagnostic Testing: X-rays of the left knee were obtained. There are 4 views. On my independent interpretation, there is no acute fracture or dislocation noted. There are some degenerative changes noted. Radiologist also interpreted the x-rays and agrees. Venous duplex of the left lower extremity was obtained. There is no evidence of DVT. Treatment and Re-Evaluation Narrative: Patient was advised of her findings. Patient states she can only take Tylenol for pain. Patient states she has a rollator to help with her ambulation. Patient was instructed to ice her left knee. Patient was instructed to follow-up with her primary care physician in 5 to 7 days. Patient was instructed to return if worse in any way. Patient understood and was agreeable with the plan. All questions were answered. Discharge Plan Triage Chief Complaint: Lower Extremity Injury ED Provider: Gabriel Abernathy Dx/Rx/DC Orders Clinical Impression: Left lateral knee pain, Essential (primary) hypertension, Type 1 diabetes mellitus Instructions: ED Knee Sprain Prescriptions: No Action albuterol sulfate 2.5 mg /3 mL (0.083 %) solution for nebulization 2.5 mg INHALATION Q6H PRN (Reason: Bronchodialation) multivitamin tablet 1 tab PO QAM diclofenac sodium [Voltaren] 1 % gel 2 g TOPICAL BID PRN (Reason: Pain/Inflammation) Adult 50 Plus Probiotic 4 billion cell capsule 4,000 mmu cells PO DAILY biotin 1 mg capsule 1 mg PO DAILY pramipexole 1 mg tablet 2 mg PO QHS aspirin [Adult Low Dose Aspirin] 81 mg tablet,delayed release (DR/EC) 81 mg PO DAILY zolpidem [Ambien] 10 mg tablet 10 mg PO QHS clonazepam 1 mg tablet 1 mg PO QHS losartan 100 mg tablet See Rx Instructions .ROUTE .COMPLEX Qty: 90 3RF Dose Instruction: take 1 tablet by mouth once daily Rx Instructions: take 1 tablet by mouth once daily Trelegy Ellipta 200-62.5-25 mcg blister with device 1 ea inhalation QDAY atorvastatin 40 MG tablet 40 mg PO QHS Patient Comments: CHOLESTEROL LOWERING clopidogrel 75 MG tablet 75 mg PO DAILY Patient Comments: BLOOD THINNER albuterol sulfate 90 mcg/actuation HFA aerosol inhaler 1 inh INHALATION Q4H PRN (Reason: shortness of breath or wheezing) hydroxychloroquine 200 mg tablet 300 mg PO QDAY amlodipine 5 mg tablet 5 mg PO DAILY Qty: 90 3RF (DME) lancets [Accu-Chek Fastclix Lancet Drum] Misc See Rx Instructions .Route Qty: 200 3RF Rx Instructions: 4x/day cholecalciferol (vitamin D3) 125 mcg (5,000 unit) tablet 125 mcg PO DAILY insulin lispro [Humalog U-100 Insulin] 100 unit/mL solution 100 unit SC QDAY Qty: 90 3RF Rx Instructions: Use with insulin pump E10.65 nitroglycerin [Nitrostat] 0.4 mg tablet, sublingual 0.4 mg sublingual Q5-15M PRN (Reason: chest pain) Qty: 25 3RF Rx Instructions: do not exceed 3 doses per episode famotidine 40 mg tablet 40 mg PO ONCE Qty: 1 0RF Rx Instructions: to be taken [address] scan NaCl 0.9% 1,000 ml IV BOLUS ONCE Qty: 1000 0RF Rx Instructions: to be given over an hour for CT scan diphenhydramine HCl 50 mg capsule 50 mg PO ONCE Qty: 1 0RF Rx Instructions: Take 1 cap [address] scan prednisone 50 mg tablet See Rx Instructions .ROUTE .COMPLEX Qty: 3 0RF Rx Instructions: Take 1 tab at 13 hours, 7 hours and [address] scan Sutab 1.479-0.188- 0.225 gram tablet See Rx Instructions PO PER PKG DIR Qty: 24 0RF Rx Instructions: PO PER PKG DIR Primary Care Provider: Alcira Calderon Referrals: Alcira Calderon MD [Primary Care Provider, Internal Medicine] - 5-7 Days Print Language: Russian Disposition Disposition: Home, Self Care
--- NOTE | 2025-03-13 10:49 | VDLE_ITS ---
Reason For Study Reason For Study: Left leg pain RIGHT LEFT CFV is compressible, spontaneous, phasic, competent GSV is normal. and demonstrates normal augmentation. CFV is compressible, spontaneous, phasic, competent, Procedure and demonstrates normal augmentation. This is a venous duplex using B-mode, color flow and FV is compressible, spontaneous, phasic, competent spectral Doppler. and demonstrates normal augmentation. Exam performed portable in ED. POP V is compressible, spontaneous, phasic, competent A preliminary report was called and/or faxed to [facility] and demonstrates normal augmentation. RN. T/P Trunk is compressible. PTV is compressible. LT PerV is compressible. VL/Venous Duplex US, Unilateral Interpretation Summary Deep veins of the left lower extremity are patent and compressible segmentally. There is no evidence of left lower extremity deep vein thrombosis. The left great saphenous vein appears patent an d compressible segmentally. Ordering Physician: Gabriel Abernathy Referring Physician: Alcira Calderon Performed By: Lolly Ivory RVT
--- NOTE | 2025-03-13 11:10 | RAD_ITS ---
PROCEDURE: KNEE 4 OR MORE VIEWS 03/13/2025 REASON FOR EXAM: INJURY/PAIN Patient has a lump on the left leg. TECHNIQUE: Procedure Code: RADKN Modality: DX Procedure: KNEE 4 OR MORE VIEWS Laterality: Left COMPARISON: None FINDINGS: Bones: Diffuse osteopenia of the osseous structures of the left knee are noted. There are no fractures or dislocations. Joints: Joint spaces are well-maintained. Effusion: There is no suprapatellar bursa effusion. Soft tissues: No soft tissue swelling is noted. Other: Extensive arteriosclerotic vascular disease of the vessels are noted. There is no x-ray abnormality seen to correlate to the palpable area. Further workup with ultrasound may be of value for further evaluation if clinically warranted. RAD/Knee 4 or More Views IMPRESSION: NO EFFUSION, ACUTE FRACTURE OR DISLOCATION. Reading Location: [id number]
[2025-03-13 12:13] VITALS: BP 124/74; PULSE 98; RESP 18; O2SAT 98
[2025-03-13 13:04] VITALS: BP 136/78; PULSE 64; RESP 18; TEMP 37.1; O2SAT 99
== END 2025-03-13 13:06 | disposition home or self-care (01) ==
PROVIDERS: Emergency Provider Emergency Medicine; PCP Internal Medicine; Visit Provider Emergency Medicine
DX: M25.562 Pain in left knee (principal); J44.9 Chronic obstructive pulmonary disease, unspecified; E10.9 Type 1 diabetes mellitus without 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s; I10 Essential (primary) hypertension; K21.9 Gastro-esophageal reflux disease without esophagitis; I25.10 Atherosclerotic heart disease of native coronary artery without angina pectoris; E78.00 Pure hypercholesterolemia, unspecified; R51.9 Headache, unspecified; M54.2 Cervicalgia; M79.89 Other specified soft tissue disorders
CPT/HCPCS: 73564; 93971; 99282

== ENCOUNTER 2025-04-19 05:21 | Day surgery (SDC) | payer MEDICARE, BC, SELFPAY ==
--- NOTE | 2025-04-17 14:36 | PAT.ANE_ITS ---
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 When Was Last Pacemaker Check QUESTION #4 FULL TEXT: You/Your Family Experience fever (hyperthermia) with Anesthesia Last Oral Intake Last Oral intake: Last Oral Intake NPO since Meds taken in AM with sips of water? 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 Female Yes 04/17/25 13:54 HX of Motion Sickness No 04/17/25 13:54 HX of N/V After Surgery No 04/17/25 13:54 Non-Smoker Yes 04/17/25 13:54 Duration of Surgery greater No 04/17/25 13:54 than 60 minutes Number of Risk Factors 2 04/17/25 13:54 PONV Score Moderate Risk 04/17/25 13:54 Height & Weight Height & Weight: Anesthesia: Height & Weight Height 5 ft 2 in 03/13/25 10:14 Respiratory Assessment Respiratory Assessment - high pressure boiler operator: Respiratory Tract Infection Hx - 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 Has anyone observed you stop breathing during sleep? STOP Results Positive 04/17/25 13:54 QUESTION #5 FULL TEXT : Do you snore loudly (louder than talking or can be heard through closed doors)? 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 Specify any problems Hx of Preganancy in last 3 No 04/17/25 13:54 Months Nurse Filling Out Transfusion VLEHMAN 04/17/25 13:54 & Questions: Date: 04/17/25 04/17/25 13:54 Time: 14:10 04/17/25 13:54 Patient unable to answer at this time (ie. 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 pressure boiler operator Hx Now No 04/17/25 13:54 Gestational Age (in weeks): EDC: Hx Hx Para Hx Section SAB No 04/17/25 13:54 Does the father of the baby or his family experience fever w Father of the baby Malignant Hypertension history comment [facility] Medical History (Updated 04/17/25 @ 14:08 by Shelli Madrid) Diabetes Walker as ambulation aid Injury of head and neck Stroke/cerebrovascular accident Difficulty swallowing Sleep apnea Hoarseness Chronic cough History of irregular heartbeat Aortic stenosis Wears glasses Wears dentures Insulin dependent diabetes mellitus High cholesterol History of steroid therapy Back pain Dietary restriction Gastric reflux History of edema CPAP (continuous positive airway pressure) dependence Non-smoker History of pain when walking Hypertension History of stress test History of echocardiogram Cardiology follow-up encounter Fall RLS (restless legs syndrome) Insomnia Esophagitis Diverticulosis of colon Coronary artery disease involving [place] coronary artery Carpal tunnel syndrome, bilateral Carotid stenosis CAD (coronary artery disease) BPPV (benign paroxysmal positional vertigo) Chronic constipation Insulin pump titration Presence of insulin pump Obesity Vitamin D deficiency Gastroenteritis Polymyalgia rheumatica Chronic rheumatic arthritis Diabetic neuropathy Type 1 diabetes mellitus COPD (chronic obstructive pulmonary disease) Essential (primary) hypertension Atherosclerosis of coronary artery of [place] heart without angina pectoris History of stroke Fatty liver Hyperlipidemia Incontinence Chronic neck and back pain Difficulty balancing Home Medications ?Medication ?Instructions ?Recorded ?Last Taken ?Type atorvastatin 40 mg tablet 40 mg PO QHS cholesterol 01/0306/26/15 History clopidogrel 75 mg tablet 75 mg PO DAILY anti platelet 06/27/15 04/14/25 History multivitamin 1 tab PO QAM vitamin 7 Unknown History amlodipine 5 mg tablet 5 mg PO DAILY #90 tabs 09/2204/08/23 Rx lactobacillus combination no.9 4 4,000 mmu cells PO DA PORSCHE supplement 10/14/18 Unknown History billion cell capsule (Adult 50 Plus Probiotic) biotin 1 mg capsule 1 mg PO DAILY 10/14/19 Unkno wn History aspirin 81 mg tablet,delayed 81 mg PO DAILY 07/05/21 1 06/03/22 History release (Adult Low Dose Aspirin) lancets (Accu-Chek Fastclix Lancet #200 ea 11/04/21 Un known Rx Drum) cholecalciferol (vitamin D3) 125 125 mcg PO DAILY 12/10 Unknown History mcg (5,000 unit) tablet Humalog U-100 Insulin 100 unit/mL 100 unit subcut QDAY #90 mL 03/16/23 Unknown Rx subcutaneous solution (insulin lispro) clonazepam 1 mg tablet 1 mg PO QHS 11/16/23 Unknown History nitroglycerin 0.4 mg sublingual 0.4 mg sublingual Q5-1 5M PRN chest 11/26/23 Unknown Rx tablet (Nitrostat) pain #25 tabs zolpidem 10 mg tablet (Ambien) 10 mg PO QHS 01/18/24 U nknown History losartan 100 mg tablet See Rx Instructions .Route 0 05/17/24 Unknown Rx .COMPLEX #90 tabs hydroxychloroquine 200 mg tablet 300 mg PO QDAY Unknown History pramipexole 1 mg tablet 2 mg PO QHS 01/10/25 Unknown History sodium sul 1.479 gram-potas ch See Rx Instructions PO PER PKG DIR 01/30/25 Unknown Rx 0.188 gram-magnes sul 0.225 gram #24 tabs tablet (Sutab) Allergy/AdvReac Type Severity Reaction Status Date / Time amitriptyline Allergy Other Verified 04/17/25 13:47 cefadroxil (Cefadroxil) Allergy Hives Verified 04/17/25 13:47 ephedrine Allergy HEART RACES Verified 04/17/25 13:47 erythromycin estolate (From Allergy Angioedema, Verified 04/17/25 13:47 Ilosone) HEART RACING iodine Allergy Hives, Verified 04/17/25 13:47 ITCHING levofloxacin Allergy Unknown Verified 04/17/25 13:47 nortriptyline (Nortriptyline) Allergy Unknown Verified 04/17/25 13:47 oxycodone (Oxycodone) Allergy CONFUSION Verified 04/17/25 13:47 oxycodone HCl (From Percocet) Allergy CONFUSION Verified 04/17/25 13:47 Sulfa (Sulfonamide Allergy Rash Verified 04/17/25 13:47 Antibiotics) pregabalin (From Lyrica) AdvReac Severe Vomiting Verified 04/17/25 13:47 hydrochlorothiazide AdvReac Intermediate Hypotension Verified 04/17/25 13:47 acetaminophen (From Percocet) AdvReac Other Verified 04/17/25 13:47 aspirin (From Aggrenox) AdvReac Vomiting Verified 04/17/25 13:47 cephalexin AdvReac Nausea/Vom/ Verified 04/17/25 13:47 Diarrhea doxycycline AdvReac Nausea/Vom/ Verified 04/17/25 13:47 Diarrhea duloxetine HCl (From AdvReac HEADACHE, Verified 04/17/25 13:47 Cymbalta) STOMACH ACHE Family History Father , age 76 No problems noted. Mother , Age 74 Breast cancer Thyroid disorder Heart disease Valvular heart disease Brother Heart disease, Onset Age: 52 Heart valve/murmur Surgical History History of esophagogastroduodenoscopy (EGD) History of left heart catheterization (07/01/05) History of coronary artery stent placement (06/26/00) nasal growth removal H/O lumpectomy axillary cyst removal bilat hand surgery H/O shoulder surgery H/O breast biopsy H/O: Social History Smoking Status: Never smoker alcohol intake: never substance use type: does not use caffeine: No Audit: Pertinent Findings Pertinent Findings Stress test pertinent findings: Stress test 11/26/2023. Normal pharmacologic myocardial perfusion stress test. Preserved ejection fraction. The gated ejection fraction is 84%. Echo (EF%) pertinent findings: Echo 03/19/2025. Normal LV size. Stage II diastolic dysfunction. Severe focal mitral valve calcifications of the posterior leaflet. Moderate 2+ eccentric mitral valve insufficiency. Mild aortic stenosis. The left ventricular ejection fraction is 65%. Pulmonary artery systolic pressure is 35 mmHg. Consult pertinent findings: Cardiology visit 01/10/2025. 79-year-old female presents to the office for cardiovascular follow-up history of mild coronary artery disease hypertension previous cerebrovascular accident, hyperlipidemia, obstructive sleep apnea, diabetes mellitus. She denies any chest pain or sh ortness of breath or paroxysmal nocturnal dyspnea or pedal edema she has been compliant with all her medications. Recommendation Anesthesia Recommendation Anesthesia recommendation: OPTIMIZED for anesthesia
[2025-04-19] VITALS (7 sets, daily range): BP systolic 111–137; BP diastolic 46–61; PULSE 63–76; RESP 16–18; TEMP 36.2–36.9; O2SAT 97–100; BMI 27.0
--- OUTSIDE RECORDS SUMMARY | 2025-04-19 05:28 | XMS RPT_ITS | CCD ---
Author Organization [facility] CliniSypr Care Team Providers Care Agronomy Specialist Name Role Phone Alcira Anderson Primary Care Provider Alcira Anderson MD Primary Care Provider Alcira Anderson MD Primary Care Provider Raquel Herrera Unavailable Jonas Etienne Unavailable Raquel Herrera MD Unavailable Dr. Alcira Anderson Primary Care Provider Dr. Alcira Anderson Referring Provider ROYAL Keller Attending Provider Jacques SHANNON, MIRTHA-Aldo Martin Attending Provider Alcira Anderson MD Primary Care Provider Raquel Herrera MD Unavailable Jonas Etienne Unavailable Raquel Herrera MD Unavailable Jonas Etienne Unavailable Dr. Alcira Anderson Primary Care Provider Dr. Alcira Anderson Referring Provider Jacques SHANNON, ROYAL Martin Attending Provider Alcira Anderson MD Primary Care Provider Raquel Herrera MD Unavailable Jonas Etienne Unavailable Alcira Anderson MD Primary Care Provider Alcira Anderson MD Primary Care Provider Dr. Alcira Anderson Primary Care Provider Yumiko, Dr. Eli Referring Provider RODERICK Velasquez Attending Provider Dr. Yann Garcia Attending Provider Dr. Yann Garcia Referring Provider Dr. Yann Garcia Other Provider Dr. Alcira Anderson Primary Care Provider Yumiko, Dr. Eli Referring Provider Dr. George Palm Attending Provider Jonas Etienne MD Unavailable Dr. Alcira Anderson Primary Care Provider Dr. Alcira Anderson Referring Provider Dr. George Palm Attending Provider Dr. Karl Dyer Attending Provider Dr. 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 Alcira Anderson MD Primary Care Provider Dr. Alcira Anderson MD Referring Provider Christi Velasquez Attending Provider Leeroy DYKES, Dr. Albert Yeung Attending Provider Dr. Albert Umaña MD Referring Provider Dr. Karl Dyer DO Attending Provider OMAYRA HERNDON Attending Unavailable GANTA, ALCIRA C Referring Unavailable GANTA, ALCIRA C Primary Care Unavailable BITNER, OMAYRA Attending Unavailable GANTA, ALCIRA C Referring Unavailable GANTA, ALCIRA C Primary Care Unavailable GANTA, ALCIRA C Primary Care Unavailable BITNER, OMAYRA Attending Unavailable BITNER, OMAYRA Referring Unavailable GANTA, ALCIRA C Primary Care Unavailable BITNER, OMAYRA Referring Unavailable BITNER, OMAYRA Attending Unavailable BITNER, OMAYRA Referring Unavailable BITNER, OMAYRA Attending Unavailable GANTA, ALCIRA C Primary Care Unavailable GANTA, ALCIRA Referring Unavailable GANTA, ALCIRA Primary Care Unavailable MANUELA THOMAS Attending Unavailable Dr. Alcira Anderson MD Primary Care Physician Dr. Alcira Anderson MD Referring Provider Dr. Leon Seaman MD Attending Physician Dr. Karl Dyer DO Attending Physician Dr. Karl Dyer DO Referring Provider GANTA, ALCIRA Primary Care Unavailable BENDARAM, EVA GUPTA Attending Unavaila ble GANTA, ALCIRA Primary Care Unavailable ALBERTO ARGUETA Referring Unavailable GANTA, ALCIRA Primary Care Unavailable HERNESTO HARVEY Attending Unavailable GANTA, ALCIRA Primary Care Unavailable AKIL RIVERA Attending Unavailable GANTA, ALCIRA Primary Care Unavailable GANTA, ALCIRA Primary Care Unavailable GANTA, ALCIRA Attending Unavailable GANTA, ALCIRA Primary Care Unavailable BENDARAM, EVA GUPTA Attending Unavaila ble GANTA, ALCIRA Primary Care Unavailable ROLAND GRAJEDA Attending Unavailable GANTA, ALCIRA Primary Care Unavailable BENDARAM, EVA GUPTA Referring Unavaila ble GANTA, ALCIRA Primary Care Unavailable BENDARAM, EVA GUPTA Attending Unavaila ble GANTA, ALCIRA Primary Care Unavailable ALBERTO ARGUETA Referring Unavailable ALBERTO ARGUETA Attending Unavailable JONAS RED Attending Unavailable GANTA, ALCIRA Primary Care Unavailable GANTA, ALCIRA Primary Care Unavailable GANTA, ALCIRA Primary Care Unavailable BENDARAM, EVA ALONSO Attending Unavaila ble GANTA, ALCIRA Primary Care Unavailable GANTA, ALCIRA Attending Unavailable GANTA, ALCIRA Primary Care Unavailable SHOBHA VINES Referring Unavailable GANTA, ALCIRA Primary Care Unavailable SYDNI, ALBERTO Referring Unavailable GANTA, ALCIRA Primary Care Unavailable HERNESTO HARVEY Attending Unavailable SHOBHA VINES Attending Unavailable GANTA, ALCIRA Primary Care Unavailable GANTA, ALCIRA Primary Care Unavailable MANUELA THOMAS Referring Unavailable GANTA, ALCIRA Primary Care Unavailable GANTA, ALCIRA Attending Unavailable GANTA, ALCIRA Primary Care Unavailable BENDARAM, EVA ALONSO Referring Unavaila ble Leeroy, Albert K Attending Unavailable Leeroy, Albert K Referring Unavailable Ganta, Alcira Primary Care Unavailable Ganta, Alcira Primary Care Unavailable Friend, Karl Attending Unavailable Friend, Karl Referring Unavailable Ganta, Alcira Referring Unavailable Ganta, Alcira Primary Care Unavailable Urszula, Leon Attending Unavailable Ganta, Alcira Primary Care Unavailable Ganta, Alcira Referring Unavailable Friend, Karl Attending Unavailable Christi Velasquez Attending Unavail able Ganta, Alcira Referring Unavailable Ganta, Alcira Primary Care Unavailable Ganta, Alcira Referring Unavailable Ganta, Alcira Primary Care Unavailable Friend, Karl Attending Unavailable Ganta, Alcira Primary Care Unavailable Urszula, Pomona Attending Unavailable Urszula, Leon Referring Unavailable Leeroy, Albert K Attending Unavailable Leeroy, Albert K Referring Unavailable Ganta, Alcira Primary Care Unavailable Allergies Allergy Classification Reported Allergen(s) Allergy Type Date of Onset Reaction(s) Facility Acetaminophen / oxyCODONE (2 sources) Acetaminophen / oxyCODONE Drug Allergy 011 Unknown [facility] Amitriptyline (2 sources) Amitriptyline Drug Allergy 013 Other: See Comments [facility] Work Phone: Aspirin / Dipyridamole (2 sources) Aspirin / Dipyridamole Drug Allergy 009 [facility] Work Phone: Cephalosporins (antibiotic) (4 sources) Cephalexin Drug Allergy 005 GI Upset, Hives [facility] Work Phone: Corticosteroids (2 sources) prednisoLONE Drug Allergy 023 Swelling [facility] Work Phone: Doxycycline (2 sources) Doxycycline Drug Allergy 012 GI Upset [facility] DULoxetine (2 sources) DULoxetine Drug Allergy 016 Unknown [facility] ePHEDrine (2 sources) ePHEDrine Drug Allergy Other: See Comments [facility] Work Phone: Iodine (and Iodine containting drugs) (2 sources) Iodine Drug Allergy 007 Itching [facility] Nortriptyline (2 sources) Nortriptyline Drug Allergy Other: See Comments [facility] Opioid Agonists (2 sources) oxyCODONE Drug Allergy Mental Status Change [facility] pregabalin (2 sources) pregabalin Drug Allergy 013 Other: See Comments [facility] Quinolones (antibiotic) (2 sources) levoFLOXacin Drug Allergy Other: See Comments [facility] Sulfonamides (antibiotic) (2 sources) Sulfonamides (Antibiotic) Drug Allergy [facility] (14 sources) Acetaminophen Drug Allergy [facility] (19 sources) Aluminum aspirin Drug Allergy [facility] (20 sources) Amitriptyline; Translations: [AMITRIPTYLINE] Drug Allergy 013 Other: See Comments [facility] Comment on above: doesnt remember (19 sources) Amoxicillin / Clavulanate Drug Allergy 011 [facility] (20 sources) Cefadroxil; Translations: [CEFADROXIL] Drug Allergy [facility] (3 sources) Dipyridamole Drug Allergy 015 [facility] (20 sources) Doxycycline; Translations: [DOXYCYCLINE] Drug Allergy 012 GI Upset [facility] (20 sources) ePHEDrine; Translations: [EPHEDRINE] Drug Allergy 005 Other: See Comments [facility] (20 sources) levoFLOXacin; Translations: [LEVOFLOXACIN] Drug Allergy Other: See Comments [facility] Comment on above: LIGAMENT DAMAGE (20 sources) oxyCODONE; Translations: [OXYCODONE] Drug Allergy Mental Status Change [facility] (20 sources) pregabalin; Translations: [PREGABALIN] Drug Allergy Other: See Comments [facility] (3 sources) Sulfonamides (Antibiotic) Propensity to adverse reactions to drug [facility] (20 sources) Acetaminophen / oxyCODONE; Translations: [OXYCODONE-ACETAMINOPH EN] Drug Allergy 011 Unknown [facility] Work Phone: (20 sources) Aspirin / Dipyridamole; Translations: [ASPIRIN-DIPYRIDAMOLE] Drug Allergy Other: See Comments [facility] Work Phone: (20 sources) Cephalexin; Translations: [CEPHALEXIN (BULK)] Drug Allergy 009 GI Upset [facility] Work Phone: (20 sources) DULoxetine; Translations: [DULOXETINE] Drug Allergy 016 Unknown [facility] Work Phone: (20 sources) Erythromycin Drug Allergy 005 Swelling [facility] (20 sources) Iodine; Translations: [IODINE] Drug Allergy 007 Itching [facility] Work Phone: (20 sources) Nortriptyline; Translations: [NORTRIPTYLINE] Drug Allergy 013 Other: See Comments [facility] Work Phone: (20 sources) Sulfonamides (Antibiotic); Translations: [SULFA (SULFONAMIDE ANTIBIOTICS)] Propensity to adverse reactions 005 Hives [facility] (10 sources) Acetaminophen Drug Allergy 022 Other [facility] Comment on above: CONFUSION (7 sources) Amoxicillin Drug Allergy Unknown [facility] (10 sources) Aspirin Drug Allergy 08-04-2 022 Vomiting [facility] (10 sources) Cephalexin Drug Allergy Nausea/Vom/Di arrhea [facility] (7 sources) Clavulanate Drug Allergy Unknown [facility] (11 sources) DULoxetine; Translations: [duloxetine HCl] Drug Allergy HEADACHE, STOMACH ACHE [facility] (11 sources) Erythromycin; Translations: [erythromycin estolate] Drug Allergy Angioedema, HEART RACING [facility] (11 sources) oxyCODONE; Translations: [oxycodone HCl] Drug Allergy CONFUSION [facility] (9 sources) Sulfonamides (Antibiotic) Allergy to substance Rash [facility] (8 sources) hydroCHLOROthiazide Drug Allergy Hypotension [facility] (16 sources) Dipyridamole Propensity to adverse reactions to drug [facility] (16 sources) Pregabalin Propensity to adverse reactions to drug [facility] (20 sources) prednisoLONE; Translations: [ISOLONE FORTE] Drug Allergy 023 Swelling [facility] Work Phone: (5 sources) Acetaminophen Drug Allergy 015 [facility] (1 source) Acetaminophen Drug Allergy [facility] (1 source) Amitriptyline Drug Allergy [facility] (1 source) Aspirin Drug Allergy [facility] (1 source) Cefadroxil Drug Allergy [facility] (1 source) Cephalexin Drug Allergy [facility] (1 source) Doxycycline Drug Allergy [facility] (1 source) ePHEDrine Drug Allergy [facility] (1 source) hydroCHLOROthiazide Drug Allergy [facility] (1 source) Iodine Drug Allergy [facility] (1 source) levoFLOXacin Drug Allergy [facility] (1 source) Nortriptyline Drug Allergy [facility] (1 source) oxyCODONE Drug Allergy 025 [facility] (1 source) pregabalin Drug Allergy 025 [facility] (1 source) Sulfonamides (Antibiotic) Drug allergy (disorder) 025 [facility] Medications Current Medications Medication Drug Class(es) Dates Sig (Normalized) Sig (Original) adapalene 0.001 mg/mg topical gel (1 source) Retinoid Start: 09-30-2019 adapalene 0.1 % Gel Apply 1 Application topically 2 times daily. 0 09/30/2019 Active [id number] 200 actuat albuterol 0.09 mg/actuat metered dose inhaler (20 sources) beta2-Adrenergic Agonist Start: 09-06-2024 2 puff, Inhalation, ONCE (OUTPT CLINIC), 1 dose, Starting on Thu09/06/24 at 0906, Until Thu09/06/24 at 1007, Wait at least one(1) full minute between inhalations Start: 08-14-2023 End: 08-14-2023 2 puff, Inhalation, ONCE (OU TPT CLINIC), 1 dose, Starting on Thu08/14/23 at 1425, Until Thu08/14/23 at 1516, Wait at least one(1) full minute between inhalations Start: 04-06-2023 take 2 puff(s) by in halation every four hours as needed for wheezing albuterol HFA (PROVENTIL HFA, VENTOLIN HFA) 90 mcg/actuation inhaler Inhale 2 Puffs as instructed every 4 hours as needed for wheezing/shortness of breath. 04/06/2023 Active Start: 04-06-2023 End: 08-24-2024 take 2 puff(s) by inhalation every four hours as needed for wheezing Albuterol 108 (90 Base) MCG/ACT Aero Soln inhaler Indications: Uncomplicated asthma, unspecified asthma severity, unspecified whether persistent Inhale 2 puffs every 4 hours as needed for Shortness of Breath, Respiratory Distress or Wheezing. GARGLE, RINSE MOUTH AFTER USE 18 g 3 08/25/2023 Active Start: 04-06-2023 Start: 04-06-2023 Albuterol Sulf ate Active 1 INH INHALATION Q4H April 06, 2023 12:00am Start: 12-04-2022 Albuterol inha ler 2 puff Start: 07-17-2022 End: 08-04-2022 albuterol (PROVENTIL) 2.5 mg /3 mL (0.083 %) nebulizer solution Indications: Mild intermittent asthma with acute exacerbation , Pneumonia of both lungs due to infectious organism, unspecified part of lung Use 3 mL via nebulizer every 4 hours as needed for wheezing/shortness of breath. Use over 5-15minutes. 100 mL 1 07/17/2022 08/04/2022 Discontinued Start: 07-09-2022 End: 09-18-2022 take 2 puff(s) by inhalation every four hours as needed for wheezing albuterol HFA (PROVENTIL HFA, VENTOLIN HFA) 90 mcg/actuation inhaler Inhale 2 Puffs as instructed every 4 hours as needed for wheezing/shortness of breath. 6.7 g 07/09/2022 09/18/2022 Discontinued Start: 04-11-2021 End: 06-09-2022 take 2 puff(s) by inhalation every four hours as needed albuterol HFA (PROAIR HFA) 90 mcg/actuation inhaler Indications: Mild intermittent asthma with acute exacerbation Inhale 2 Puffs as instructed every 4 hours as needed. 1 Each 3 04/11/2021 06/09/2022 Discontinued (Discontinued by Patient) Start: 11-22-2010 End: 02-02-2023 take 2.5 mg by inhalation every six hours as needed Comment on above: Inhale 2 Puffs as in structed every 4 hours as needed. Inhale 2 Puffs as in structed every 4 hours as needed for wheezing/shortness of breath. Use 3 mL via nebuliz er every 4 hours as needed for wheezing/shortness of breath. Use over 5-15minutes. Q4H amoxicillin 875 mg / clavulanate 125 mg oral tablet (17 sources) Penicillin-class Antibacterial Start: End: take 1 tablet by mouth twice daily amoxicillin-clavula mariposa potassium (AUGMENTIN) 875-125 mg per tablet Indications: Community acquired pneumonia, unspecified laterality Take 1 tablet by mouth two times a day for 10 days. 20 tablet 08/29/2024 09/08/2024 Active Start: 01-13-2024 End: 04-19-2024 Amoxicillin-Pot Clavulanate 875-125 mg tablet Discontinued 1 {tbl} PO TWICE A DAY January 18, 2024 12:00am April 19, 2024 11:08am Start: 07-17-2022 End: 07-22-2022 take 1 tablet by mouth twice daily amoxicillin-clavulanic acid (AUGMENTIN) 875-125 mg per tablet Indications: Pneumonia of both lungs due to infectious organism, unspecified part of lung Take 1 tablet by mouth twice daily for 5 days. 10 tablet 0 07/17/2022 07/22/2022 Active Start: 07-09-2022 End: 07-14-2022 take 1 tablet by mouth twice daily amoxicillin-clavulanic acid (AUGMENTIN) 875-125 mg per tablet Take 1 tablet by mouth twice daily for 5 days. 10 tablet 0 07/09/2022 07/14/2022 Active Comment on above: Take 1 tablet by bradford th twice daily for 5 days. aspirin 81 mg delayed releas e oral tablet (20 sources) Platelet Aggregation Inhibitor, Nonsteroidal Anti-inflammatory Drug Start: 07-05-2021 Start: 02-06-2021 take 1 tablet by bradford th once daily aspirin 81 mg chewable tablet Take 1 tablet by mouth once daily. 30 tablet 11 02/06/2021 Active Start: 06-27-2015 End: 02-02-2023 take 1 tablet by mouth once daily Aspirin 325 MG tablet Discontinued 325 mg PO DAILY@0800 June 27, 2015 1:00am May 28, 2022 3:53pm [facility] Start: 12-15-2014 End: 12-18-2014 take 2 tablets by mouth at bedtime Aspirin 81 MG Tab.Chew Discontinued 162 mg PO AT BEDTIME December 15, 2014 12:00am December 18, 2014 6:46pm Start: 12-15-2014 End: 12-18-2014 take 162 mg by mouth at bedtime Aspirin Discontinued 1 62 MG PO AT BEDTIME December 14, 2014 11:00pm December 18, 2014 5:46pm Comment on above: Take 1 tablet by bradford th once daily. atorvastatin 40 mg oral tablet (20 sources) HMG-CoA Reductase Inhibitor Start: 06-27-2015 End: 12-07-2023 take 1 tablet by mouth at bedtime Start: 11-03-2013 End: 11-23-2013 take 1 tablet by mouth at bedtime Atorvastatin 20 MG tablet Discontinued 20 mg PO AT BEDTIME November 03, 2013 12:00am November 23, 2013 10:00am Comment on above: [facility] azelastine hydrochloride 0.137 mg/actuat metered dose nasal spray (20 sources) Histamine-1 Receptor Antagonist Start: 08-30-19 take 1 spray(s) nasal route twice daily azelastine 0.1% nasal spray Indications: Seasonal allergic rhinitis due to other allergic trigger Use 1 spray in each nostril two times a day. 30 mL 2 08/29/2024 Active azithromycin 250 mg oral tablet (5 sources) Macrolide Antimicrobial Start: 01-25-20 End: 01-30-20 azithromycin (ZITHROMAX Z-TALIA) 250 mg tablet Take 2 tablets day one, then, 1 tablet daily until gone. 6 tablet 01/25/2024 01/30/2024 Active Start: 07-09-2022 End: 07-14-2022 take 2 tablets by mouth once daily, then take 1 tablet by mouth once daily azithromycin (ZITHROMAX) 250 mg tablet Take 2 tablets by mouth once daily for 1 day, THEN 1 tablet once daily for 4 days. 6 tablet 0 07/09/2022 07/14/2022 Active Comment on above: Take 2 tablets by mo [facility] once daily for 1 day, THEN 1 tablet once daily for 4 days. Bacillus coagulans / Inulin (20 sources) take 1 capsule by mouth once daily Bacillus coagulans/inulin (PROBIOTIC WITH PREBIOTIC ORAL) Take 1 capsule by mouth once daily. Active take 1 capsule by mouth once marsha ly Bacillus coagulans/inulin (PROBIOTIC WITH PREBIOTIC ORAL) Take 1 capsule by mouth once daily. 0 Active Bacillus coagula ns/inulin (PROBIOTIC WITH PREBIOTIC ORAL) Take by mouth. 0 Active Comment on above: Take by mouth. bifidobacterium animalis [id number] unt / lactobacillus acidophilus [id number] unt oral capsule (18 sources) Start: 09-30-2019 take 1 capsule by mouth once daily Probiotic capsule Take 1 capsule by mouth daily. 09/30/2019 Active biotin 1 mg oral capsule (20 sources) Start: 10-14-2019 take 1 capsule by mouth once daily Start: 09-30-2019 take 1 tablet by bradford th once daily Biotin 1 mg tab Take 1 tablet by mouth once daily. 30 tablet 09/30/2019 Active Start: 09-30-2019 take 1 tablet by bradford th once daily biotin 1000 MCG tablet Take 1 tablet by mouth daily. 09/30/2019 Active Start: 06-27-2015 End: 03-30-2017 take 1 capsule by mouth once daily Biotin 1 MG capsule Discontinued 1 mg PO DAILY June 27, 2015 1:00am March 30, 2017 2:02pm Comment on above: Take 1 tablet by bradford th once daily. Blood Glucose Monitoring Suppl (Contour Blood Glucose System) w/Device Kit (18 sources) Start: 09-30-2019 Blood Glucose Monitoring Suppl (Contour Blood Glucose System) w/Device Kit Dispense 1 kit. Dx: Type 1 DM - Controlled E10.9 09/30/2019 Active Start: 09-30-2019 Blood Glucose Monitoring Suppl (Contour Blood Glucose System) w/Device Kit Dispense 1 kit. Dx: Type 1 DM - Controlled E10.9 0 09/30/2019 Active capsaicin 0.74245 mg/mg / lidocaine hydrochloride 0.005 mg/mg / menthol 0.05 mg/mg / methyl salicylate 0.2 mg/mg medicated patch (20 sources) Antiarrhythmic, Amide Local Anesthetic Start: 01-21-2021 lidocain-me.ywktbof-boep-rhe th 0.5-20-0.035-5 % ptmd Apply 1 Each to affected area as needed. 01/21/2021 Active Comment on above: Apply to affected ar ea. 12 hr chlorpheniramine polistirex 1.6 mg/ml / HYDROcodone polistirex 2 mg/ml extended release suspension (6 sources) Histamine-1 Receptor Antagonist, Opioid Agonist Start: 07-17-2022 End: 07-24-2022 take 5 mL by mouth every twelve hours as needed for cough and cough HYDROcodone-chlorpheniramine (TUSSIONEX) 10-8 mg/5 mL suspension Indications: Acute cough Take 5 mL by mouth every 12 hours as needed for up to 7 days. 115 mL 0 07/17/2022 07/24/2022 Active Start: 06-25-2022 End: 07-02-2022 take 5 mL by mouth every twelve hours as needed for cough and cough HYDROcodone-chlorpheniramine (TUSSIONEX) 10-8 mg/5 mL suspension Indications: Acute cough Take 5 mL by mouth every 12 hours as needed for up to 7 days. 70 mL 0 06/25/2022 07/02/2022 Active Comment on above: Take 5 mL by mouth e very 12 hours as needed for up to 7 days. Take 5 mL by mouth e very 12 hours as needed for up to 5 days. cholecalciferol 0.125 mg ora l tablet (20 sources) Vitamin D Start: 05-28-2022 take 1 tablet by mouth once daily Start: 04-16-2019 take 1 capsule by mo [facility] once daily Cholecalciferol, Vitamin D3, 125 mcg (5,000 unit) cap Take 1 capsule by mouth once daily. 90 capsule 3 12/05/2019 Active Comment on above: Take [address] [facility] once daily. clonazePAM 1 mg oral tablet (20 sources) Benzodiazepine Start: 10-28-2023 End: 01-26-2024 take 1 tablet by mouth at bedtime Start: 05-18-2023 End: 10-26-2023 take 1 tablet by mouth at bedtime as needed clonazePAM (KLONOPIN) 1 mg tablet Indications: Anxiety state Take 1 tablet by mouth at bedtime as needed for up to 90 days. 45 tablet 0 07/24/2023 10/22/2023 Active Start: 05-18-2023 End: 07-24-2023 take 1 tablet by mouth at bedtime as needed clonazePAM (KLONOPIN) 1 mg tablet Indications: Anxiety state Take 1 tablet by mouth at bedtime as needed for up to 7 days. 7 tablet 0 05/18/2023 07/24/2023 Discontinued Start: 10-14-2018 End: 03-17-2023 take 1 tablet by mouth at bedtime as needed clonazePAM (KLONOPIN) 1 mg tablet Indications: Anxiety state Take 1 tablet by mouth at bedtime as needed for up to 90 days. 04/03/22-Needs renewed 45 tablet 04/18/2022 09/18/2022 Discontinued Start: 10-14-2018 End: 02-02-2023 take 1 mg by mouth at bedtime Clonazepam Active 1 MG P O AT BEDTIME October 14, 2018 12:00am Start: 10-14-2018 End: 06-25-2022 take 1 tablet by mouth at bedtime as needed clonazePAM (KLONOPIN) 1 mg tablet Indications: Anxiety state Take 1 tablet by mouth at bedtime as needed for up to 180 days. 90 tablet 0 08/05/2021 11/21/2021 Discontinued Start: 11-03-2013 End: 11-23-2013 take 1 tablet by mouth at bedtime as needed Clonazepam (Klonopin) 1 MG tablet Discontinued 1 mg PO AT BEDTIME NEEDED as needed for Insomnia November 03, 2013 12:00am November 23, 2013 10:01am Comment on above: Take 1 tablet by bradford th at bedtime as needed for up to 180 days. Take 1 tablet by bradford th at bedtime as needed for up to 90 days. 04/03/22- renewed Take 1 tablet by bradford th at bedtime as needed for up to 90 days. Take 1 tablet by bradford th at bedtime as needed for up to 7 days. clopidogrel 75 mg oral tablet (20 sources) [id number] Platelet Inhibitor Start: 06-27-2015 End: 06-06-2024 take 1 tablet by mouth once daily Start: 11-03-2013 End: 11-23-2013 take 1 tablet by mouth once daily Clopidogrel 75 MG tablet Discontinued 75 mg PO DAILY November 03, 2013 12:00am November 23, 2013 10:01am Comment on above: Take 1 tablet by bradford th once daily. Continuous Blood Gluc Sensor (FREESTYLE XANDER 14 DAY SENSOR) [facility] (19 sources) Start: 04-08-2019 Continuous Blood Gluc Sensor (FREESTYLE XANDER 14 DAY SENSOR) [facility] 04/08/2019 Active Start: 04-08-2019 Continuous Blo od Gluc Sensor (FREESTYLE XANDER 14 DAY SENSOR) [facility] dextromethorphan hydrobromide 6 mg/ml / guaiFENesin 40 mg/ml oral solution (9 sources) Uncompetitive T-knienu-P-aspartate Receptor Antagonist, Sigma-1 Agonist Start: 04-09-2023 take 5 mL by mouth every four hours as needed for cough Dextromethorphan-guaiFENesin 30-200 MG/5ML Liquid Indications: LRTI (lower respiratory tract infection) , Cough, unspecified type Take 5 mL by mouth every 4 hours as needed for Other or Cough (cough). 474 mL 11 04/09/2023 Active diclofenac sodium 0.01 mg/mg topical gel (20 sources) Nonsteroidal Anti-inflammatory Drug Start: 07-21-2020 Diclofenac Sodium 1 % Gel ge l apply 3 grams to THE PAINFUL AREA topically once daily for 28 DAYS 07/21/2020 Active Start: 03-30-2017 diclofenac sod ium (VOLTAREN ARTHRITIS PAIN TOPICAL) Apply 2 g to affected area as needed (pain). 03/30/2017 Active Start: 03-30-2017 diclofenac sod ium (VOLTAREN ARTHRITIS PAIN TOPICAL) Apply 2 g to affected area as needed (pain). 0 03/30/2017 Active Start: 03-30-2017 diclofenac sod ium (VOLTAREN ARTHRITIS PAIN TOPICAL) Apply 2 g to affected area. 0 03/30/2017 Active Start: 03-30-2017 apply 2 g topically twice daily as needed for pain Start: 01-31-2014 Diclofenac Sod ium 1 % Gel gel diclofenac VOLTAREN 1 % GEL apply topically twice daily as needed DICLOFENAC SODIUM [id number] Leandra Whitney RN 01-31-2014 [facility] ([id number]) 01/31/2014 Active Comment on above: Apply 2 g to affecte d area. diphenhydrAMINE hydrochloride 50 mg oral capsule (20 sources) Histamine-1 Receptor Antagonist Start: 01-16-2025 take 1 capsule by mouth every hour Start: 01-16-2025 take 1 capsule by mo ut every hour Diphenhydramine Hcl 50 mg capsule Active 50 mg PO ONCE 1 January 16, 2025 12:00am Take 1 cap [address] scan Complies with drug therapy Start: 01-03-2025 End: 01-16-2025 Diphenhydramine Hcl (Benadry l) 25 mg capsule Discontinued 25 mg PO ONCE 1 January 03, 2025 12:00am January 16, 2025 2:45pm to be taken [address] scan Start: 08-05-2022 End: 01-06-2024 diphenhydrAMINE (BENADRYL) 2 5 mg capsule Indications: Contrast media allergy Please take 2 tablets an hour prior to the contrast procedure 2 capsule 08/05/2022 01/06/2024 Discontinued Comment on above: Please take 2 tablet s an hour prior to the contrast procedure esomeprazole 40 mg delayed release oral capsule (20 sources) Proton Pump Inhibitor Start: 09-06-19 take 1 capsule by mouth once daily before breakfast esomeprazole (NEXIUM) 40 mg capsule Take 40 mg by mouth daily before breakfast. 09/05/2024 Active famotidine 40 mg oral tablet (20 sources) Histamine-2 Receptor Antagonist Start: 01-04-20 Start: 02-22-2024 take 1 tablet by bradford th twice daily famotidine (PEPCID) 20 mg tablet Indications: gastroesophageal reflux disease Take 1 tablet by mouth two times a day. 30 tablet 2 02/22/2024 Active fluconazole 150 mg oral tablet (4 sources) Azole Antifungal Start: 01-28-2024 End: 01-28-2024 fluconazole (DIFLUCAN) 150 mg tablet Take 1 tablet by mouth one time only for 1 dose. Repeat in 3 days as needed. 2 tablet 01/28/2024 01/28/2024 Active Start: 07-21-2022 End: 07-21-2022 fluconazole (DIFLUCAN) 150 m g tablet Take 1 tablet by mouth one time only for 1 dose. Repeat in 3 days as needed. 2 tablet 0 07/21/2022 07/21/2022 Active Start: 02-03-2022 End: 02-04-2022 take 1 tablet by mouth once daily fluconazole (DIFLUCAN) 150 mg tablet Take 1 tablet by mouth once daily for 1 day. 1 tablet 0 02/03/2022 02/04/2022 Active Start: 01-22-2022 End: 01-22-2022 fluconazole (DIFLUCAN) 150 m g tablet Take 1 tablet by mouth one time only for 1 dose. (Repeat in 3 days as needed.) 2 tablet 0 01/22/2022 01/22/2022 Active Comment on above: Take 1 tablet by bradford th one time only for 1 dose. (Repeat in 3 days as needed.) Take 1 tablet by bradford th once daily for 1 day. Take 1 tablet by bradford th one time only for 1 dose. Repeat in 3 days as needed. fluticasone propionate 0.05 mg/actuat metered dose nasal spray (20 sources) Corticosteroid Start: 05-12-202 5 take 2 spray(s) by mouth twice daily fluticasone (FLONASE) 50 mcg/actuation nasal spray Indications: Seasonal allergic rhinitis due to other allergic trigger Use 2 sprays in each nostril two times a day. Rinse mouth after use. 16 g 2 08/29/2024 Active Start: 06-10-2021 End: 06-09-2022 take 2 spray(s) by mouth once daily fluticasone (FLONASE) 50 mcg/actuation nasal spray Use 2 Sprays in each nostril once daily. Rinse mouth after use. 1 Each 2 06/10/2021 06/09/2022 Discontinued (Discontinued by Patient) Comment on above: Use 2 Sprays in each nostril once daily. Rinse mouth after use. 30 actuat fluticasone furoate 0.1 mg/actuat / umeclidinium 0.0625 mg/actuat / vilanterol 0.025 mg/actuat dry powder inhaler (20 sources) Anticholinergic, Corticosteroid, beta2-Adrenergic Agonist Start: take 1 puff(s) by inhalation once daily fluticasone-umeclidi n-vilanter (TRELEGY ELLIPTA) 100-62.5-25 mcg inhalation powder Indications: Community acquired pneumonia, unspecified laterality Inhale 1 puff as instructed once daily. 60 each 08/29/2024 Active Fluticasone-Umeclidin -Vilant (Trelegy Ellipta) 200-62.5-25 MCG/ACT Aerosol Powder, breath activated (18 sources) Start: take 1 puff(s) by inhalation once daily Fluticasone-Umeclidi n-Vilant (Trelegy Ellipta) 200-62.5-25 MCG/ACT Aerosol Powder, breath activated Indications: Chronic obstructive pulmonary disease, unspecified COPD type Inhale 1 puff daily. 28 Each 5 09/13/2024 Active Start: 01-08-2023 End: 09-13-2024 take 1 puff(s) by inhalation once daily Bqmsnqnnhsm-Dgxcuzeod-Qtvraf (Trelegy Ellipta) 200-62.5-25 MCG/ACT Aerosol Powder, breath activated Indications: Chronic obstructive pulmonary disease, unspecified COPD type Inhale 1 puff daily. 28 Each 01/08/2023 09/13/2024 Discontinued (Reorder) Start: 01-08-2023 take 1 puff(s) by inhalation once daily Jxzpcualpuo-Gzvodpyvu-Rhhvtm (Trelegy Ellipta) 200-62.5-25 MCG/ACT Aerosol Powder, breath activated Indications: Chronic obstructive pulmonary disease, unspecified COPD type Inhale 1 puff daily. 28 Each 01/08/2023 Active Start: 01-08-2023 take 1 puff(s) by inhalation once daily Lgekyvvflrz-Ietumpknn-Bfwjlv (Trelegy Ellipta) 200-62.5-25 MCG/ACT Aerosol Powder, breath activated Indications: Chronic obstructive pulmonary disease, unspecified COPD type Inhale 1 puff daily. 28 Each 0 01/08/2023 Active Start: 01-08-2023 End: 01-08-2024 take 1 puff(s) by inhalation once daily Sluqrbwlqdl-Efdlqphmp-Jlkxuu (Trelegy Ellipta) 200-62.5-25 MCG/ACT Aerosol Powder, breath activated Indications: Uncomplicated asthma, unspecified asthma severity, unspecified whether persistent Inhale 1 puff daily. 9 Each 3 01/08/2023 01/08/2024 Active Start: 01-08-2023 End: 01-08-2023 take 1 puff(s) by inhalation once daily Xvnmoczvtxg-Dohucvqan-Qnkidq (Trelegy Ellipta) 200-62.5-25 MCG/ACT Aerosol Powder, breath activated Indications: Uncomplicated asthma, unspecified asthma severity, unspecified whether persistent Inhale 1 puff daily. 1 Each 5 01/08/2023 01/08/2023 Discontinued Qieiitnazch-Skxsqmbjs-Grfypq er (2 sources) Start: 01-10-2025 Start: 01-10-2025 Fluticasone-Um eclidin-Vilanter (Trelegy Ellipta) 200-62.5-25 mcg blister with device Active 1 NMA INHALATION daily January 10, 2025 12:00am Complies with drug therapy 12 hr guaiFENesin 600 mg extended release oral tablet (20 sources) Start: 02-22-2024 take 1 tablet by mouth twice daily guaiFENesin (MUCINEX) 600 mg 12 hr tablet Take 1 tablet by mouth two times a day. 30 tablet 1 02/22/2024 Active Start: 06-10-2021 End: 09-26-2021 take 1 tablet by mouth twice daily as needed guaiFENesin (MUCINEX) 600 mg 12 hr tablet Take 1 tablet by mouth twice daily as needed. 60 tablet 2 06/10/2021 09/26/2021 Discontinued (Discontinued by Patient) Comment on above: Take 1 tablet by bradford th twice daily as needed. hydroxychloroquine sulfate 2 00 mg oral tablet (20 sources) Antimalarial, Antirheumatic Agent Start: 01-10-2025 Start: 12-30-2023 End: 05-30-2024 take 1.5 tablets by mouth once daily hydrOXYchloroQUINE (PLAQUENIL) 200 mg tablet Take 1.5 tablets by mouth once daily. 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 , 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 of non-steroidal anti-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 (NSAID) , penitentiary current use of systemic steroids , Long-term use of high-risk medication , Long-term use of Plaquenil , On statin therapy , Fatty liver , Hyperchloremia , Hyperglycemia , Lumbar degenerative disc disease , Osteoarthritis of cervical spine, unspecified spinal osteoarthritis complication status , Osteoarthritis of both hands, unspecified osteoarthritis type , Osteoarthritis of both wrists, unspecified osteoarthritis type , Rotator cuff arthropathy of both shoulders , Thoracic degenerative disc disease 1 po q day 90 tablet 3 02/02/2023 Active Start: 05-21-2022 End: 02-02-2023 take 1 tablet by mouth every other day Hydroxychloroquine 200 mg tablet Discontinued 200 mg PO every other day May 28, 2022 3:53pm November 04, 2022 9:16am Start: 11-22-2010 End: 01-10-2025 take 1 tablet by mouth twice daily Hydroxychloroquine 200 mg tablet Discontinued 200 mg PO TWICE A DAY April 06, 2023 1:00am January 10, 2025 10:09am Comment on above: Take 1 tablet by bradford th twice daily. Take 1 tablet by bradford th two times a day. 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 20 Each 2 02/16/2024 Active 3 ml insulin glargine 100 unt/ml pen injector (20 sources) Insulin Analog Start: 06-06-2024 insulin glargi ne (LANTUS SOLOSTAR U-100 INSULIN) 100 unit/mL (3 mL) Indications: Diabetes mellitus type 1, controlled, without complications (HCC) Take 51 units once a day when in case of pump failure 6 mL 06/06/2024 Active Start: 05-23-2024 End: 06-02-2024 insulin glargine (LANTUS ADRIENNE OSTAR U-100 INSULIN) 100 unit/mL (3 mL) Indications: Diabetes mellitus type 1, controlled, without complications (HCC) Take 51 units once a day when in case of pump failure 6 mL 05/23/2024 06/02/2024 Discontinued Start: 09-30-2019 insulin glargi ne 100 UNIT/ML vial 46 units every 24 hr for insulin pump failure 09/30/2019 Active Start: 09-30-2019 End: 06-09-2022 insulin glargine 100 UNIT/ML vial 46 units every 24 hr for insulin pump failure 0 09/30/2019 Active Comment on above: 46 units every 24 hr for insulin pump failure insulin lispro 100 UNIT/ML vial (17 sources) Start: 11-16-2019 insulin lispro 100 UNIT/ML vial Humalog U-100 Insulin 100 unit/mL subcutaneous solution USE DIRECTED IN INSULIN PUMP UP TO 110 UNITS DAILY 11/16/2019 Active Start: 11-16-2019 insulin lispro 100 UNIT/ML vial Humalog U-100 Insulin 100 unit/mL subcutaneous solution USE DIRECTED IN INSULIN PUMP UP TO 110 UNITS DAILY 0 11/16/2019 Active Lactobacillus Combination No .9 (Adult 50 Plus Probiotic) 4 billion cell capsule (10 sources) Start: 10-14-2018 take 4 capsules by m outh once daily Start: 10-14-2018 take 4 capsules by m outh once daily Lactobacillus Combination No.9 (Adult 50 Plus Probiotic) 4 billion cell capsule Active 4000 NMA PO DAILY October 14, 2018 12:00am supplement Complies with drug therapy Start: 10-14-2018 take 4 capsules by m outh once daily Lactobacillus Combination No.9 (Adult 50 Plus Probiotic) 4 billion cell capsule Active 4000 NMA PO DAILY October 14, 2018 12:00am Start: 10-14-2018 take 4 capsules by m outh once daily Lactobacillus Combination No.9 (Adult 50 Plus Probiotic) 4 billion cell capsule Active 4000 MMU CELLS PO DAILY October 13, 2018 11:00pm Start: 10-14-2018 take 4 capsules by m outh once daily Lactobacillus Combination No.9 (Adult 50 Plus Probiotic) 4 billion cell capsule Active 4000 MMU CELLS PO DAILY October 14, 2018 12:00am metoprolol tartrate 50 mg oral tablet (20 sources) beta-Adrenergic Jordi Start: 02-24-2019 metopr olol 50 MG tab regular release Start: 10-14-2018 End: 05-24-2020 take 1 capsule by mouth once daily Metoprolol Succinate 25 mg capsule,sprinkle,ER 24hr Discontinued 25 mg PO DAILY October 14, 2018 12:00am May 24, 2020 2:40pm blood pressure Start: 06-21-2018 End: 10-14-2018 take 2 tablets by mouth twice daily Metoprolol Tartrate 25 mg tablet Discontinued 50 mg PO TWICE A DAY June 21, 2018 4:13pm October 14, 2018 10:15am Start: 06-21-2018 End: 10-14-2018 take 50 mg by mouth twice daily Metoprolol Tartrate Discontinued 50 MG PO TWICE A DAY June 21, 2018 3:13pm October 14, 2018 9:15am Start: 06-27-2015 End: 06-21-2018 take 1 tablet by mouth twice daily Metoprolol Tartrate 25 MG tablet Discontinued 25 mg PO TWICE A DAY June 27, 2015 1:00am June 21, 2018 4:15pm Start: 11-03-2013 End: 11-23-2013 take 1 tablet by mouth twice daily Metoprolol Tartrate 25 MG tablet Discontinued 25 mg PO TWICE A DAY November 03, 2013 12:00am November 23, 2013 10:03am miconazole nitrate 0.02 mg/mg topical powder (4 sources) Azole Antifungal Start: 03-30-2018 miconazole ni trate 2 % topical powder Active 1 APPLIC TOPICAL DAILY March 30, 2018 1:00am Misc. Devices Misc (5 sources) Start: 07-26-2024 Multiple Vitamin (MULTI-VITAMINS) Tab (19 sources) Start: 11-22-2010 Multiple Vitam in (MULTI-VITAMINS) Tab MULTIPLE VITAMIN MULTIVITAMINS TABS One tablet by mouth daily MULTIPLE VITAMIN [id number] Amara M [place]brook 11-22-2010 [facility] ([id number]) 11/22/2010 Active Start: 11-22-2010 Multiple Vitam in (MULTI-VITAMINS) Tab MULTIPLE VITAMIN MULTIVITAMINS TABS One tablet by mouth daily MULTIPLE VITAMIN [id number] [facility] 11-22-2010 [facility] ([id number]) 0 11/22/2010 Active Multivitamin preparation (7 sources) Start: 03-30-2017 take 1 tablet by mouth once daily in the morning Multivitamin Active 1 TABLET PO EVERY MORNING March 30, 2017 12:00am Start: 03-30-2017 take 1 tablet by bradford th once daily in the morning Multivitamin Active 1 TABLET PO EVERY MORNING March 30, 2017 1:00am multivitamin tablet (20 sources) Start: 09-30-2019 take 1 tablet by mouth once daily multivitamin tablet Take 1 tablet by mouth once daily. 0 09/30/2019 Active Comment on above: Take 1 tablet by [facility] once daily. Multivitamin tablet (3 sources) Start: 03-30-2017 Start: 03-30-2017 Multivitamin t ablet Active 1 {tbl} PO EVERY MORNING March 30, 2017 1:00am vitamin Complies with drug therapy Start: 03-30-2017 Multivitamin t ablet Active 1 {tbl} PO EVERY MORNING March 30, 2017 1:00am NaCl 0.9% (2 sources) Start: 01-03-2025 take 1 mL intravenously once neomycin sulfate 500 mg oral tablet (20 sources) Aminoglycoside Antibacterial Start: 11-13-2023 take 1 tablet by mouth every twelve hours neomycin 500 mg tablet Take 1 tablet by mouth every 12 hours. 11/13/2023 Active Start: 11-13-2023 End: 12-13-2023 take 1 tablet by mouth twice daily Neomycin 500 mg tablet Discontinued 500 mg PO TWICE A DAY 60 30 0 November 13, 2023 12:00am December 12, 2023 12:00am December 13, 2023 12:04am nitrofurantoin, macrocrystals 25 mg / nitrofurantoin, monohydrate 75 mg oral capsule (1 source) Nitrofuran Antibacterial Start: 02-04-2022 End: 02-11-2022 take 1 capsule by mouth twice daily at mealtime nitrofurantoin monohydrate and macrocrystal (MACROBID) 100 mg capsule Indications: Urinary tract infection without hematuria, site unspecified Take 1 capsule by mouth twice daily with meals for 7 days. 14 capsule 0 02/04/2022 02/11/2022 Active Comment on above: Take [address] [facility] twice daily with meals for 7 days. nitroglycerin 0.4 mg sublingual tablet (20 sources) Nitrate Vasodilator Start: 11-26-2023 Start: 04-11-2021 End: 05-23-2022 nitroglycerin (NITROLINGUAL) 400 mcg/spray spray one every 5 minutes x3 as needed 4.9 g 3 05/23/2022 Active Start: 03-30-2017 End: 05-28-2022 Nitroglycerin (Nitrostat) 0. 4 mg tablet, sublingual Discontinued 0.4 mg SL Q5M as needed for Cardiac/Chest Pain March 30, 2017 1:00am May 28, 2022 10:55am Start: 03-30-2017 End: 05-28-2022 Nitroglycerin (Nitrostat) 0. 4 mg tablet, sublingual Discontinued 0.4 MG SL Q5M March 30, 2017 12:00am May 28, 2022 9:55am Start: 12-15-2014 End: 12-18-2014 Nitroglycerin (Nitrolingual) 12 GM [place] Discontinued 4.9 g TL DIRECTED as needed for Chest Pain December 15, 2014 12:00am December 18, 2014 6:45pm Start: 11-22-2010 nitroGLYCERIN 0.4 MG/SPRAY Solution nitroglycerin NITROLINGUAL 0.4 MG/SPRAY SOLN 1 spray under tongue every 5min up to 3 X (400mcg per spray) NITROGLYCERIN [id number] Leon Seaman MD 11-30-2012 Deboar Myers RN [facility] ([id number]) 11/22/2010 Active Comment on above: one every 5 minutes x3 as needed nystatin [id number] unt/ml oral suspension (20 sources) Polyene Antifungal Start: 11-29-2024 nystatin (MYCOSTATIN) 100,000 unit/mL suspension 5 mL four times daily. Swish/swallow or swish/expectorate 200 mL 11/29/2024 Active Start: 11-06-2024 End: 11-13-2024 nystatin (MYCOSTATIN) 100,00 0 unit/mL suspension Take 5 mL by mouth four times daily for 7 days. 1tsp swish in mouth for several minutes, then swallow (or expectorate) 4 times daily until gone. 140 mL 11/06/2024 11/13/2024 Active Start: 11-25-2023 End: 12-24-2023 nystatin (MYCOSTATIN) powder Indications: Intertrigo Apply 1 application to affected area three times a day. 30 g 3 12/24/2023 Active Start: 11-25-2023 End: 12-02-2023 nystatin (MYCOSTATIN) cream Indications: Intertrigo Apply 1 application to affected area three times a day for 7 days. 30 g 1 11/25/2023 12/02/2023 Active omeprazole 40 mg delayed release oral capsule (18 sources) Proton Pump Inhibitor Start: 09-01-2024 take 1 capsule by mouth once daily omeprazole (PRILOSEC) 40 mg capsule Take 40 mg by mouth once daily. 09/01/2024 Active pramipexole dihydrochloride 1 mg oral tablet (20 sources) Nonergot Dopamine Agonist Start: 05-24-2020 End: 01-10-2025 take 2 tablets by mouth at bedtime Start: 05-24-2020 take 2 mg by mouth at bedtime Pramipexole Active 2 MG PO AT BEDTIME May 24, 2020 12:00am Start: 03-13-2020 pramipexole 1 MG tablet At bedtime. 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 legs Start: 10-14-2019 End: 05-24-2020 take 1 mg by mouth at bedtime Pramipexole Discontinued 1 MG PO AT BEDTIME October 14, 2019 10:58am May 24, 2020 1:42pm Start: 07-24-2017 End: 10-14-2019 take 2 tablets by mouth at bedtime Pramipexole 0.25 mg tablet Discontinued 0.5 mg PO AT BEDTIME July 24, 2017 3:10pm October 14, 2019 12:00pm restless legs Start: 07-24-2017 End: 10-14-2019 take 0.5 mg by mouth at bedtime Pramipexole Discontinued 0.5 MG PO AT BEDTIME July 24, 2017 2:10pm October 14, 2019 11:00am Start: 06-27-2015 End: 07-24-2017 take 1 tablet by mouth at bedtime Pramipexole 0.25 MG tablet Discontinued 0.25 mg PO AT BEDTIME June 27, 2015 1:00am July 24, 2017 3:13pm Start: 11-03-2013 End: 11-23-2013 take 1 tablet by mouth twice daily Pramipexole (Mirapex) 0.5 MG tablet Discontinued 0.5 mg PO TWICE A DAY November 03, 2013 12:00am November 23, 2013 10:03am Comment on above: Take [address] [facility] daily at bedtime. predniSONE 50 mg oral tablet (20 sources) Start: 01-16-2025 Start: 01-16-2025 Prednisone 50 mg tablet Active 0 .ROUTE .COMPLEX 3 0 January 16, 2025 2:44pm Take 1 tab at 13 hours, 7 hours and [address] scan Complies with drug therapy Start: 01-16-2025 End: 01-16-2025 Prednisone 50 mg tablet Disc ontinued 0 .ROUTE .COMPLEX 9 0 January 16, 2025 12:00am January 16, 2025 2:44pm Take 3 tabs at 13 hours, 7 hours and [address] scan Start: 01-03-2025 End: 01-16-2025 Prednisone 20 mg tablet Disc ontinued 40 mg PO ONCE 2 0 January 03, 2025 12:00am January 16, 2025 2:45pm to be taken [address] scan Start: 04-09-2023 End: 09-13-2024 predniSONE 10 MG tablet Brenda cations: LRTI (lower respiratory tract infection) Take 4 tablets by mouth for 3 days, then take 3 tablets by mouth for 3 days, then take 2 tablets by mouth for 3 days, 1 tablet for 3 days 30 tablet 04/09/2023 09/13/2024 Discontinued Start: 08-05-2022 End: 09-18-2022 predniSONE (DELTASONE) 10 mg tablet Indications: Contrast media allergy Take 50 mgs at 13 hours, 7 hours and 1 hour before the contrast procedure 15 tablet 0 08/05/2022 09/18/2022 Discontinued Start: 07-17-2022 End: 08-04-2022 take 1 tablet by mouth once daily predniSONE (DELTASONE) 20 mg tablet Indications: Pneumonia of both lungs due to infectious organism, unspecified part of lung , Mild intermittent asthma with acute exacerbation Take 1 tablet by mouth once daily. 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 , Antiplatelet or antithrombotic long-term use , History of stroke , Patient non adherence , Noncompliance , Abnormal serum STEFFANY level , penitentiary current use of systemic steroids , Fatty liver , Hypoalbuminemia , Hyperglycemia , Lumbar degenerative disc disease , Osteoarthritis of both hands, unspecified osteoarthritis type , Rotator cuff arthropathy of both shoulders , Osteoarthritis of both wrists, unspecified osteoarthritis type , Osteoarthritis of cervical spine, unspecified spinal osteoarthritis complication status , Trigger finger of all digits of both hands 8 po q AM for 1 day decrease by 1 pill a day until off - to be used on a PRN basis 36 tablet 5 08/10/2020 09/13/2024 Discontinued Comment on above: Take 1 tablet by bradford th once daily. Take 50 mgs at 13 ho urs, 7 hours and 1 hour before the contrast procedure Sod Sulf-Pot Chloride-Mag Sulf (1 source) Start: 01-31-20 take 1.479 tablets by mouth once sodium chloride 0.111 meq/ml nasal spray (20 sources) Start: 08-30-19 25 sodium chloride (SALINE MIST) 0.65 % nasal spray Indications: Seasonal allergic rhinitis due to other allergic trigger Use 1 spray in the nose two times a day. 88 mL 2 08/29/2024 Active triamcinolone acetonide 0.25 mg/ml topical cream (1 source) Corticosteroid Start: 09-30-19 triamcinolone 0.025 % Cream cream Apply 1 Application topically 2 times daily. 0 09/30/2019 Active WALKER ROLLATOR SEAT WITH 6 WHEELS - RED (20 sources) Start: 11-29-19 WALKER ROLLATOR SEAT WITH 6 WHEELS - RED Indications: Cerebral infarction, unspecified mechanism (HCC) , Rheumatoid arthritis, involving unspecified site, unspecified whether rheumatoid factor present (HCC) , Lumbar disc herniation , Weakness of left lower extremity For ambulation 1 Each 11/28/2022 Active Start: 11-28-2022 WALKER ROLLATO R SEAT WITH 6 WHEELS - RED Indications: Cerebral infarction, unspecified mechanism (HCC) , Rheumatoid arthritis, involving unspecified site, unspecified whether rheumatoid factor present (HCC) , Lumbar disc herniation , Weakness of left lower extremity For ambulation 1 Each 0 11/28/2022 Active Start: 11-24-2022 WALKER ROLLATO R SEAT WITH 6 WHEELS - RED Indications: Cerebral infarction, unspecified mechanism (HCC) , Rheumatoid arthritis, involving unspecified site, unspecified whether rheumatoid factor present (HCC) , Lumbar disc herniation For ambulation 1 Each 0 11/24/2022 Active Comment on above: For ambulation zolpidem tartrate 10 mg oral tablet (20 sources) gamma-Aminobutyric Acid-ergic Agonist Start: 01-18-2024 End: 09-04-2024 take 1 tablet by mouth at bedtime Start: 01-18-2024 End: 01-16-2025 take 1 tablet by mouth at bedtime as needed zolpidem (AMBIEN) 10 mg Indications: Insomnia, unspecified type Take 1 tablet by mouth at bedtime as needed (insomnia) for up to 180 days. 90 tablet 1 07/20/2024 01/16/2025 Active Start: 01-06-2024 End: 02-05-2024 take 1 tablet by mouth every 30 days at bedtime as needed zolpidem (AMBIEN) 10 mg Indications: Insomnia, unspecified type Take 1 tablet by mouth at bedtime as needed (insomnia) for up to 30 days. 30 tablet 01/06/2024 02/04/2024 Discontinued Start: 12-24-2023 End: 02-22-2024 take 1 tablet by mouth at bedtime as needed zolpidem (AMBIEN CR) 6.25 mg CR tablet Indications: Insomnia, unspecified type Take 1 tablet by mouth at bedtime as needed for up to 60 days. 30 tablet 1 12/24/2023 01/06/2024 Discontinued Start: 12-07-2023 End: 01-06-2024 take 1 tablet by mouth every 30 days at bedtime as needed zolpidem (AMBIEN) 5 mg tablet Indications: Insomnia, unspecified type Take 1 tablet by mouth at bedtime as needed for sedation for up to 30 days. 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 09/30/2019 Active Start: 10-14-2018 End: 11-16-2023 take 2 tablets by mouth every six hours as needed for pain Acetaminophen 325 mg tablet Discontinued 650 mg PO EVERY 6 HOURS as needed for pain May 24, 2020 2:35pm November 16, 2023 10:32am Start: 10-14-2018 End: 05-24-2020 take 650 mg by mouth every six hours Acetaminophen Active 650 MG PO EVERY 6 HOURS May 24, 2020 1:35pm Comment on above: Take 1 tablet by [facility] every 8 hours as needed. acetaminophen 325 mg / HYDROcodone bitartrate 5 mg oral tablet (20 sources) Opioid Agonist Start: 01-20-2021 End: 11-04-2022 Hydrocodone-Acetaminophe n 5-325 mg tablet Discontinued 1 {tbl} PO EVERY 6 HOURS as needed for pain 6 3 0 January 20, 2021 November 04, 2022 9:15am Strain of thoracic paraspinal muscles excluding T1 and T2 levels Strain of muscle and tendon of back wall of thorax, initial encounter Start: 01-20-2021 End: 11-04-2022 take 1 tablet by mouth every six hours Hydrocodone-Acetaminophen Discontinued 1 TABLET PO EVERY 6 HOURS 6 3 January 20, 2021 November 04, 2022 8:15am Start: 12-29-2017 End: 10-14-2018 Hydrocodone-Acetaminophen 5- 325 mg tablet Discontinued 1 {tbl} PO EVERY 6 HOURS as needed 0 December 29, 2017 12:00am October 14, 2018 10:13am Start: 12-29-2017 End: 10-14-2018 take 1 tablet by mouth every six hours Hydrocodone-Acetaminophen Discontinued 1 TABLET PO EVERY 6 HOURS December 28, 2017 11:00pm October 14, 2018 9:13am amLODIPine 5 mg oral tablet (20 sources) Dihydropyridine Calcium Channel Jordi Start: 2018 End: 01-15-2024 take 1 tablet by mouth once daily Amlodipine 5 mg tablet Discontinued 5 mg PO DAILY 90 3 September 21, 2018 1:41pm September 22, 2018 8:46am Comment on above: Take 1 tablet by [facility] once daily. TAKE 1 TABLET BY [facility] EVERY DAY benzonatate 100 mg oral capsule (20 sources) Non-narcotic Antitussive Start: 01-13-2024 End: 01-10-2025 take 1 capsule by mouth three times daily Benzonatate 100 mg capsule Discontinued 100 mg PO THREE TIMES A DAY January 18, 2024 12:00am January 10, 2025 10:08am Blood-Glucose Meter (CONTOUR METER) monitoring kit (20 sources) Start: 09-30-2019 End: 02-23-2023 Blood-Glucose Meter (CONTOUR METER) monitoring kit Indications: Type 1 diabetes mellitus with diabetic neuropathy (HCC) Dispense 1 kit. Dx: Type 1 DM - Controlled E10.9 1 Each 09/30/2019 02/23/2023 Discontinued Start: 09-30-2019 End: 02-23-2023 Blood-Glucose Meter (CONTOUR METER) monitoring kit Indications: Type 1 diabetes mellitus with diabetic neuropathy (HCC) Dispense 1 kit. Dx: Type 1 DM - Controlled E10.9 1 Each 0 09/30/2019 02/23/2023 Discontinued Start: 09-30-2019 Blood-Glucose Meter (CONTOUR METER) monitoring kit Indications: Type 1 diabetes mellitus with diabetic neuropathy (HCC) Dispense 1 kit. Dx: Type 1 DM - Controlled E10.9 1 Each 0 09/30/2019 Active Comment on above: Dispense 1 kit. Dx: Type 1 DM - Controlled E10.9 cetirizine hydrochloride 10 mg oral tablet (4 sources) Histamine-1 Receptor Antagonist Start: 025 End: 025 take 1 tablet by mouth once daily Cetirizine 10 MG tablet Take 1 tablet by mouth daily. 28 tablet 07/29/2024 09/13/2024 Discontinued (Therapy completed) dicyclomine hydrochloride 10 mg oral capsule (10 sources) Anticholinergic Start: 016 End: 017 take 2 capsules by mouth three times daily before mealtime Dicyclomine 10 MG capsule Discontinued 20 mg PO THREE TIMES DAILY BEFORE MEALS September 17, 2015 12:00am March 30, 2017 2:03pm causes drowsiness Start: 09-17-2015 End: 03-30-2017 take 20 mg by mouth three times daily before mealtime Dicyclomine Discontinued 20 MG PO THREE TIMES DAILY BEFORE MEALS September 16, 2015 11:00pm March 30, 2017 1:03pm causes drowsiness 24 hr dilTIAZem hydrochloride 180 mg extended release oral capsule (10 sources) Calcium Channel Jordi Start: 03-12-2015 End: 03-13-2015 take 1 capsule by mouth once daily Diltiazem Hcl 180 MG capsule Discontinued 180 mg PO DAILY March 12, 2015 1:00am March 13, 2015 1:42pm docusate sodium 100 mg oral capsule (20 sources) Start: 12-05-2019 End: 08-20-2022 take 1 capsule by mouth twice daily Docusate Sodium 100 mg capsule Discontinued 100 mg PO TWICE A DAY May 28, 2022 1:00am August 20, 2022 11:18am enalapril maleate 10 mg oral tablet (10 sources) Angiotensin Converting Enzyme Inhibitor Start: 11-03-2013 End: 11-23-2013 take 1 tablet by mouth twice daily Enalapril Maleate (Vasotec) 10 MG tablet Discontinued 10 mg PO TWICE A DAY November 03, 2013 12:00am November 23, 2013 10:02am ergocalciferol 1.25 mg oral capsule (20 sources) Provitamin D2 Compound Start: 06-27-2015 End: 10-14-2018 Ergocalciferol (Vitamin D2) 50,000 UNIT capsule Discontinued [id number] U PO HU June 27, 2015 1:00am October 14, 2018 10:13am Start: 11-30-2012 End: 12-30-2024 Ergocalciferol (Vitamin D2) 50,000 unit capsule Discontinued 41838 U PO EVERY WEEK March 30, 2017 1:00am May 28, 2022 3:54pm vitamin Flash Glucose Scanning Reade r (Freestyle Xander 14 Day [place]) misc (10 sources) Start: 04-19-2018 End: 04-22-2018 Flash Glucose Scanning Reade r (Freestyle Xander 14 Day [place]) misc Discontinued 0 .ROUTE .MEDSUPPLY 1 April 19, 2018 1:00am April 22, 2018 4:31pm As directed to monitor glucose levels Start: 04-19-2018 End: 04-22-2018 Flash Glucose Scanning Reade r (Freestyle Xander 14 Day [place]) misc Discontinued 0 .ROUTE .MEDSUPPLY 1 April 19, 2018 12:00am April 22, 2018 3:31pm As directed to monitor glucose levels Start: 04-19-2018 End: 04-22-2018 Flash Glucose Scanning Reade r (Freestyle Xander 14 Day [place]) misc Discontinued 0 .ROUTE .MEDSUPPLY 1 April 19, 2018 1:00am April 22, 2018 4:31pm As directed to monitor glucose levels Flash Glucose Sensor (Freest yle Xander 14 Day Sensor) kit (20 sources) Start: 04-15-2018 End: 04-22-2018 Flash Glucose Sensor (Freest yle Xander 14 Day Sensor) kit Discontinued 0 .ROUTE .MEDSUPPLY 1 April 15, 2018 3:13pm April 22, 2018 4:31pm As directed with reader to monitor glucose levels Start: 04-15-2018 End: 04-22-2018 Flash Glucose Sensor (Freest yle Xander 14 Day Sensor) kit Discontinued 0 .ROUTE .MEDSUPPLY April 15, 2018 2:13pm April 22, 2018 3:31pm As directed with reader to monitor glucose levels Start: 04-15-2018 End: 04-22-2018 Flash Glucose Sensor (Freest yle Xander 14 Day Sensor) kit Discontinued 0 .ROUTE .MEDSUPPLY April 15, 2018 3:13pm April 22, 2018 4:31pm As directed with reader to monitor glucose levels Start: 04-15-2018 End: 04-15-2018 Flash Glucose Sensor (Freest yle Xander 14 Day Sensor) kit Discontinued 0 .ROUTE .MEDSUPPLY 1 April 15, 2018 1:00am April 15, 2018 3:13pm As directed with reader to monitor glucose levels Start: 04-15-2018 End: 04-15-2018 Flash Glucose Sensor (Freest yle Xander 14 Day Sensor) kit Discontinued 0 .ROUTE .MEDSUPPLY April 15, 2018 12:00am April 15, 2018 2:13pm As directed with reader to monitor glucose levels Start: 04-15-2018 End: 04-15-2018 Flash Glucose Sensor (Freest yle Xander 14 Day Sensor) kit Discontinued 0 .ROUTE .MEDSUPPLY April 15, 2018 1:00am April 15, 2018 3:13pm As directed with reader to monitor glucose levels Fluticasone Propion-Salmeterol (14 sources) Corticosteroid, beta2-Adrenergic Agonist Start: 08-21-2022 End: 11-04-2022 Fluticasone Propion-Salmeterol 100-50 mcg/dose blister with device Discontinued 1 NMA INHALATION TWICE A DAY August 21, 2022 12:00am November 04, 2022 9:16am Start: 08-21-2022 End: 11-04-2022 Fluticasone Propion-Salmeter ol Discontinued 1 INH INHALATION TWICE A DAY August 20, 2022 11:00pm November 04, 2022 8:16am Start: 08-21-2022 End: 11-04-2022 Fluticasone Propion-Salmeter ol Discontinued 1 INH INHALATION TWICE A DAY August 21, 2022 12:00am November 04, 2022 9:16am Start: 08-21-2022 Fluticasone Pr opion-Salmeterol Active 1 INH INHALATION TWICE A DAY August 21, 2022 12:00am Start: 08-08-2022 End: 09-18-2022 take 1 puff(s) by mouth twice daily fluticasone-salmeterol (ADVAIR DISKUS) 100-50 mcg/dose inhaler Inhale 1 Puff as instructed twice daily. Rinse mouth out after use with water. 1 Each 08/08/2022 09/18/2022 Discontinued Start: 08-08-2022 take 1 puff(s) by mo uth twice daily fluticasone-salmeterol (ADVAIR DISKUS) 100-50 mcg/dose inhaler Inhale 1 Puff as instructed twice daily. Rinse mouth out after use with water. 1 Each 08/08/2022 Active Start: 08-06-2022 End: 08-08-2022 take 1 puff(s) by mouth twice daily fluticasone-salmeterol (ADVAIR DISKUS) 100-50 mcg/dose inhaler Inhale 1 Puff as instructed twice daily. Rinse mouth out after use with water. 1 Each 08/06/2022 08/08/2022 Discontinued Start: 08-06-2022 take 1 puff(s) by mo uth twice daily fluticasone-salmeterol (ADVAIR DISKUS) 100-50 mcg/dose inhaler Inhale 1 Puff as instructed twice daily. Rinse mouth out after use with water. 1 Each 08/06/2022 Active Comment on above: Inhale 1 Puff as ins tructed twice daily. Rinse mouth out after use with water. fluticasone-umeclid in-vilanter (TRELEGY ELLIPTA) 200-62.5-25 mcg inhalation powder (20 sources) Start: End: take 1 puff(s) by inhalation once daily fluticasone-umeclidi n-vilanter (TRELEGY ELLIPTA) 200-62.5-25 mcg inhalation powder Inhale 1 Puff as instructed once daily. 0 01/08/2023 11/24/2023 Discontinued Start: 01-08-2023 take 1 puff(s) by inhalation once daily copcmsbrbfq-gxzkgwycd-xphwbzph (TRELEGY ELLIPTA) 200-62.5-25 mcg inhalation powder Inhale 1 Puff as instructed once daily. 0 01/08/2023 Active Comment on above: Inhale 1 Puff as ins tructed once daily. Fluticasone-Umeclidin -Vilanter [Fluticasone Fur. 200 Mcg-Umeclid 62.5 Mcg-Vilant 25 Mcg Inhalat.Powder] (6 sources) Start: 04-06-2023 End: 11-16-2023 Tscwzwmgxzc-Crwmtclza-Jc lanter [Fluticasone Fur. 200 Mcg-Umeclid 62.5 Mcg-Vilant 25 Mcg Inhalat.Powder] (Fluticasone Fur. 200 Mcg-Umeclid 62.5 Mcg-Vilant ) 200-62.5-25 mcg blister with device Discontinued 1 NMA INHALATION AT BEDTIME April 06, 2023 1:00am November 16, 2023 10:34am Start: 04-06-2023 Fluticasone-Um eclidin-Vilanter [Fluticasone Fur. 200 Mcg- Umeclid 62.5 Mcg-Vilant 25 Mcg Inhalat.Powder] (Fluticasone Fur. 200 Mcg-Umeclid 62.5 Mcg-Vilant ) 200-62.5-25 mcg blister with device Active 1 INH INHALATION AT BEDTIME April 06, 2023 12:00am furosemide 20 mg oral tablet (20 sources) Loop Diuretic Start: 06-20-2022 End: 12-17-2022 take 1 tablet by mouth once daily as needed for edema furosemide (LASIX) 20 mg tablet Take 1 tablet by mouth once daily as needed (edema). 30 tablet 1 06/20/2022 09/18/2022 Discontinued Start: 07-10-2020 End: 08-20-2022 take 1 tablet by mouth every other day Furosemide (Lasix) 20 mg tablet Discontinued 20 mg PO every other day May 28, 2022 3:56pm August 20, 2022 11:21am Atherosclerotic heart disease of [place] coronary artery without angina pectoris Start: 10-14-2019 End: 05-28-2022 take 1 tablet by mouth once daily as needed Furosemide (Lasix) 20 mg tablet Discontinued 20 mg PO DAILY as needed May 24, 2020 2:38pm May 28, 2022 3:56pm Atherosclerotic heart disease of [place] coronary artery without angina pectoris Comment on above: Take 1 tablet by [facility] once daily as needed (edema). gabapentin 400 mg oral capsule (20 sources) Anti-epileptic Agent Start: 01-22-2021 End: 05-14-2023 take 1 capsule by mouth twice daily Gabapentin 400 mg capsule Discontinued 400 mg PO TWICE A DAY November 21, 2021 12:00am September 23, 2022 9:21am Start: 03-30-2017 End: 09-29-2022 take 1 capsule by mouth three times daily Gabapentin 300 mg capsule Discontinued 300 mg PO THREE TIMES A DAY March 30, 2017 1:00am October 14, 2019 11:54am nerve pain Comment on above: Take [address] [facility] twice daily as needed. Take [address] [facility] twice daily for 180 days. 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 May repeat after 15 minutes using a new device if there is no response. 1 Each 2 09/15/2023 11/24/2023 Discontinued Start: 11-21-2021 End: 08-20-2022 Glucagon 3 mg/actuation spra y,non-aerosol Discontinued 3 mg INTRANASAL ONCE November 21, 2021 12:00am August 20, 2022 11:19am as a single dose Start: 10-18-2020 End: 11-05-2021 glucagon (BAQSIMI) 3 mg/actu ation nasal spray Use 1 [place] in the nose as needed for low blood sugar. May repeat after 15 minutes using a new device if there is no response. 2 Each 3 10/18/2020 11/05/2021 Discontinued Comment on above: Use 1 [place] in the n ose as needed for low blood sugar. May repeat after 15 minutes using a new device if there is no response. hydroCHLOROthiazide 25 mg oral tablet (16 sources) Thiazide Diuretic Start: End: Hydrochlorothiazide 25 mg tablet Discontinued 12.5 mg PO DAILY 19 03October 23, 2022 2:57pm October 27, 2022 10:58am Start: 10-23-2022 End: 10-27-2022 take 12.5 mg by mouth once daily Hydrochlorothiazide Discontinued 12.5 MG PO DAILY October 23, 2022 1:57pm October 27, 2022 9:58am Start: 10-20-2022 End: 10-23-2022 take 1 tablet by mouth once daily Hydrochlorothiazide 25 mg tablet Discontinued 25 mg PO DAILY 19 03October 20, 2022 12:00am October 23, 2022 2:58pm hydrocortisone 25 mg/ml topical cream (20 sources) Corticosteroid Start: 09-03-2021 End: 11-24-2023 hydrocortisone 2.5 % cream Apply 1 application to affected area as needed (rash). 09/03/2021 11/24/2023 Discontinued Comment on above: Apply to affected ar ea once daily. Insulin Bolus Pump (Pt's Own) (Pump, Bolus) 1 UNIT Pump (10 sources) Start: 06-27-2015 End: 06-21-2018 Insulin Bolus Pump (Pt's Own) (Pump, Bolus) 1 UNIT Pump Discontinued 0 U SC 0800,1200,1700,2200 June 27, 2015 1:00am June 21, 2018 4:13pm Start: 06-27-2015 End: 06-21-2018 Insulin Bolus Pump (Pt's Own ) (Pump, Bolus) 1 UNIT Pump Discontinued 0 UNIT SC 0800,1200,1700,2200 June 27, 2015 12:00am June 21, 2018 3:13pm Start: 06-27-2015 End: 06-21-2018 Insulin Bolus Pump (Pt's Own ) (Pump, Bolus) 1 UNIT Pump Discontinued 0 UNIT SC 0800,1200,1700,2200 June 27, 2015 1:00am June 21, 2018 4:13pm insulin lispro 100 unt/ml injectable solution (20 sources) Insulin Analog Start: 11-04-2022 End: 03-16-2023 Insulin Lispro (Humalog U-100 Insulin) 100 unit/mL solution Discontinued 100 U SC daily 90 3 February 05, 2023 3:35pm March 16, 2023 11:15am Use with insulin pump up to 120 units daily. E10.9 Start: 11-16-2019 insulin lispro (HumaLOG) 100 UNIT/ML vial Humalog U-100 Insulin 100 unit/mL subcutaneous solution USE DIRECTED IN INSULIN PUMP UP TO 110 UNITS DAILY 0 11/16/2019 Active Start: 04-27-2017 End: 11-04-2022 Insulin Lispro (Humalog U-10 0 Insulin) 100 unit/mL solution Discontinued 120 U SC daily 40 5 October 02, 2022 8:05am November 04, 2022 9:44am Use with insulin pump up to 120 units daily. E10.9 Start: 03-30-2017 End: 08-19-2023 inject 116 [IU] by subcutaneous injection once daily Insulin Lispro (Humalog U-100 Insulin) 100 unit/mL solution Discontinued 0 Continuous Subcutaneous Infusion daily March 30, 2017 1:00am November 01, 2021 4:29pm Type 1 diabetes mellitus without 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s diabetes use with pump, up to 116 U qd Continuous Subcutaneous Infusion QDAY Comment on above: as directed in Insul in pump up to 110 units daily. Dx E10.65 iv contrast (will be provided with radiology test) (1 source) Start: 08-05-2022 End: 08-06-2022 iv contrast (will be provided with radiology test) Indications: Chest pain on breathing , Shortness of breath , Elevated d-dimer CT Chest PE -Inject, intravenously, once for 1 dose.No IV access, insert saline lock prior to the beginning of sedation, infusion, injection of imaging exam. Discontinue saline lock post exam. If Pt. has a central line or IVAD, may access for administration according to line specific nursing protocol. Once exam is complete flush line and de-access according to line specific nursing protocol in the CT contrast administration guidelines link. 1 Each 0 08/05/2022 08/06/2022 Comment on above: CT Chest PE -Inject, intravenously, once for 1 dose.No IV access, insert saline lock prior to the beginning of sedation, infusion, injection of imaging exam. Discontinue saline lock post exam. If Pt. has a central line or IVAD, may access for administration according to line specific nursing protocol. Once exam is complete flush line and de-access according to line specific nursing protocol in the CT contrast administration guidelines link. ketoconazole 20 mg/ml medicated shampoo (20 sources) Azole Antifungal Start: 09-03-2021 End: 11-24-2023 ketoconazole (NIZORAL) 2 % shampoo Apply 2 mL to affected area once daily as needed for itching/rash. 09/03/2021 11/24/2023 Discontinued L.Acidoph, Paracasei,B. Lactis (7 sources) Start: 06-27-2015 End: 03-30-2017 L.Acidoph, Paracasei,B. Lactis Discontinued 1 EACH PO DAILY June 27, 2015 12:00am March 30, 2017 1:01pm Start: 06-27-2015 End: 03-30-2017 L.Acidoph, Paracasei,B. Lact is Discontinued 1 EACH PO DAILY June 27, 2015 1:00am March 30, 2017 2:01pm L.Acidoph,Paracasei,B.Animal is 1 EACH capsule (3 sources) Start: 06-27-2015 End: 03-30-2017 take 1 capsule by mouth once daily L.Acidoph,Paracasei,B.Animalis 1 EACH capsule Discontinued 1 NMA PO DAILY June 27, 2015 1:00am March 30, 2017 2:01pm lactobacillus acidophilus [id number] unt oral capsule (20 sources) Start: 09-30-2019 End: 06-09-2022 take 1 capsule by mouth once daily Lactobacillus acidophilus (PROBIOTIC) 10 billion cell cap Indications: Type 1 diabetes mellitus with diabetic neuropathy (HCC) Take 1 capsule by mouth once daily. 30 capsule 0 09/30/2019 06/09/2022 Discontinued (Discontinued by Patient) Comment on above: Take 1 capsule by mo [facility] once daily. lactulose 667 mg/ml oral solution (12 sources) Osmo tic Laxa tive Start: 04-06-2023 End: 11-16-2023 take 10 g by mouth twice daily Lactulose 10 gram/15 mL solution Discontinued 10 g PO TWICE A DAY April 06, 2023 1:00am November 16, 2023 10:34am Start: 03-27-2023 End: 04-06-2023 take 10 g by mouth once daily Lactulose 10 gram/15 mL solution Discontinued 10 g PO DAILY 237 March 27, 2023 1:00am April 06, 2023 3:19pm Start: 03-27-2023 End: 04-06-2023 take 10 g by mouth once daily Lactulose 10 gram/15 mL solution Discontinued 10 g PO DAILY 237 March 27, 2023 1:00am April 06, 2023 3:19pm Start: 03-27-2023 End: 04-06-2023 take 10 g by mouth once daily Lactulose Discontinued 1 0 GM PO DAILY 237 March 27, 2023 12:00am April 06, 2023 2:19pm lansoprazole 30 mg delayed release oral capsule (20 sources) Proton Pump Inhibitor Start: 06-27-2015 End: 07-26-2024 take 1 capsule by mouth twice daily Lansoprazole 30 MG capsule Discontinued 30 mg PO TWICE A DAY June 27, 2015 1:00am November 16, 2023 10:34am reflux Comment on above: take 1 capsule by mo [facility] twice a day Take [address] [facility] twice daily. lidocaine 0.05 mg/mg medicated patch (10 sources) Antiarrhythmic, Amide Local Anesthetic Start: 01-21-2021 End: 04-19-2024 Lidocaine 5 % adhesive patch,medicated Discontinued 1 NMA TOPICAL DAILY as needed for pain January 21, 2021 12:00am April 19, 2024 11:09am leave on most painful area for up to 12 hrs linaclotide 0.072 mg oral capsule (20 sources) Guanylate Cyclase-C Agonist Start: 09-26-2021 End: 12-04-2021 take 1 capsule by mouth once daily Linaclotide (Linzess) 72 mcg capsule Discontinued 72 ug PO DAILY November 21, 2021 12:00am December 04, 2021 3:03pm Comment on above: Take [address] [facility] once daily. Administer on an empty stomach. Swallow whole; DO NOT crush or chew. LORazepam 1 mg oral tablet (10 sources) Benzodiazepine Start: 06-27-2015 End: 03-30-2017 take 1 tablet by mouth once daily as needed for anxiety Lorazepam 1 MG tablet Discontinued 1 mg PO DAILY NEEDED as needed for Anxiety June 27, 2015 1:00am March 30, 2017 2:00pm losartan potassium 100 mg oral tablet (20 sources) Angiotensin 2 Receptor Jordi Start: 10-02-2020 End: 11-21-2021 take 1 tablet by mouth once daily losartan (COZAAR) 50 mg tablet Indications: Essential hypertension Take 1 tablet by mouth once daily. 90 tablet 3 10/02/2020 10/24/2021 Discontinued Start: 05-14-2020 End: 06-06-2024 take 1 tablet by mouth once daily Losartan 100 mg tablet Discontinued 0 .ROUTE .COMPLEX 90 3 November 26, 2023 2:30pm May 17, 2024 11:37am Atherosclerotic heart disease of [place] coronary artery without angina pectoris take 1 tablet by mouth once daily Start: 10-14-2019 End: 05-14-2020 take 1 tablet by mouth once daily Losartan 50 mg tablet Discontinued 50 mg PO daily 90 3 October 14, 2019 12:01pm May 14, 2020 4:14pm Atherosclerotic heart disease of [place] coronary artery without angina pectoris Start: 10-14-2019 End: 10-14-2019 Losartan 100 mg tablet Disco ntinued 50 mg PO daily October 14, 2019 11:55am October 14, 2019 12:01pm Atherosclerotic heart disease of [place] coronary artery without angina pectoris Start: 10-14-2019 End: 10-14-2019 take 50 mg by mouth once daily Losartan Discontinued 50 MG PO daily October 14, 2019 10:55am October 14, 2019 11:01am Start: 10-09-2017 End: 10-14-2019 take 1 tablet by mouth once daily Losartan 100 mg tablet Discontinued 100 mg PO daily 90 3 May 19, 2019 4:07pm October 14, 2019 12:00pm Start: 03-30-2017 End: 10-09-2017 take 1 tablet by mouth once daily Losartan 50 mg tablet Discontinued 50 mg PO daily March 30, 2017 1:00am October 09, 2017 11:09am Comment on above: Take [facility] daily. magnesium citrate 100 mg oral tablet (20 sources) Start: 04-06-2023 End: 11-24-2023 take 1 capsule by mouth once daily magnesium citrate 100 mg cap Take 1 capsule by mouth once daily. 0 04/06/2023 11/24/2023 Discontinued Start: 03-27-2023 End: 04-26-2023 take 2 capsules by mouth once daily Magnesium Citrate 100 mg capsule Discontinued 200 mg PO DAILY 60 30 0 March 27, 2023 1:00am April 25, 2023 1:00am April 26, 2023 1:04am Start: 03-27-2023 End: 04-26-2023 take 200 mg by mouth once daily Magnesium Citrate Disc ontinued 200 MG PO DAILY 60 30 March 27, 2023 12:00am April 26, 2023 12:04am Comment on above: Take [address] [facility] once daily. metoclopramide 5 mg oral tablet (20 sources) Dopamine-2 Receptor Antagonist Start: 12-09-19 End: 04-19-20 take 1 tablet by mouth once daily 30 minutes before mealtime Metoclopramide Hcl 5 mg tablet Discontinued 5 mg PO daily 30 30 0 April 12, 2024 12:06pm April 19, 2024 11:10am administer 30 minutes before meals Start: 11-13-2023 End: 12-09-2023 take 1 tablet by mouth 30 minutes before mealtime Metoclopramide Hcl 10 mg tablet Discontinued 10 mg PO before meals 90 30 0 November 13, 2023 12:00am December 12, 2023 12:00am December 09, 2023 4:07pm administer 30 minutes before meals Start: 08-27-2023 End: 01-21-2024 take 1 tablet by mouth every six hours 30 minutes before mealtime Metoclopramide Hcl 5 mg tablet Discontinued 5 mg PO EVERY 6 HOURS 120 30 3 December 07, 2023 5:02pm December 09, 2023 4:07pm administer 30 minutes before meals metroNIDAZOLE 500 mg oral tablet (3 sources) Nitroimidazole Antimicrobial Start: 04-19-2024 End: 01-10-2025 take 1 tablet by mouth once daily Metronidazole 500 mg tablet Discontinued 500 mg PO DAILY April 19, 2024 1:00am January 10, 2025 10:09am montelukast 10 mg oral tablet (20 sources) Leukotriene Receptor Antagonist Start: 10-14-2019 End: 11-24-2023 take 1 tablet by mouth at bedtime Montelukast (Singulair) 10 mg tablet Discontinued 10 mg PO AT BEDTIME May 24, 2020 2:40pm November 16, 2023 10:35am Atherosclerotic heart disease of [place] coronary artery without angina pectoris BREATHING Comment on above: Take 1 tablet by bradford th daily at bedtime. ondansetron 4 mg oral tablet (10 sources) Serotonin-3 Receptor Antagonist Start: 10-14-2019 End: 05-24-2020 take 1 tablet by mouth every eight hours as needed for nausea and vomiting Ondansetron Hcl 4 mg tablet Discontinued 4 mg PO Q8H as needed for nausea and vomiting October 14, 2019 12:00am May 24, 2020 2:41pm Atherosclerotic heart disease of [place] coronary artery without angina pectoris polyethylene glycol 3350 69840 mg powder for oral solution (10 sources) Osmotic Laxative Start: 03-30-2017 End: 05-24-2020 Polyethylene Glycol 3350 (Miralax) 17 gram/dose powder Discontinued 17 g PO daily as needed for Constipation March 30, 2017 1:00am May 24, 2020 2:41pm polyethylene glycol 3350 634908 mg / potassium chloride 2970 mg / sodium bicarbonate 6740 mg / sodium chloride 5860 mg / sodium sulfate 44811 mg powder for oral solution (6 sources) Osmotic Laxative Start: 03-23-2023 End: 03-27-2023 Peg 3350-Electrolytes (Golytely) 236-22.74-6.74 -5.86 gram recon soln Discontinued 240 mL PO Q10M 4000 0 March 23, 2023 1:00am March 27, 2023 3:07pm until fecal effluent is clear Start: 03-23-2023 End: 03-27-2023 Peg 3350-Electrolytes (Golyt jojo) 236-22.74-6.74 -5.86 gram recon soln Discontinued 240 ML PO Q10M 4000 March 23, 2023 12:00am March 27, 2023 2:07pm until fecal effluent is clear potassium chloride 10 meq extended release oral tablet (20 sources) Start: 06-20-2022 End: 09-18-2022 take 1 tablet by mouth once daily as needed potassium chloride (K-TAB) 10 mEq tablet Take 1 tablet by mouth once daily as needed. Take with Lasix/Furosemide. 30 tablet 1 06/20/2022 09/18/2022 Discontinued Start: 10-14-2019 End: 05-24-2020 take 1 tablet by mouth once daily Potassium Chloride 10 mEq tablet extended release Discontinued 10 meq PO DAILY October 14, 2019 12:00am May 24, 2020 2:42pm Atherosclerotic heart disease of [place] coronary artery without angina pectoris Comment on above: Take 1 tablet by bradford once daily as needed. Take with Lasix/Furosemide. rifAXIMin 550 mg oral tablet (3 sources) Rifamycin Antibacterial Start: End: take 1 tablet by mouth three times daily Rifaximin (Xifaxan) 550 mg tablet Discontinued 550 mg PO THREE TIMES A DAY 42 14 0 November 13, 2023 12:00am November 26, 2023 12:00am November 13, 2023 10:07am simethicone 180 mg oral capsule (10 sources) Start: End: take 2 capsules by mouth once daily as needed Simethicone (Phazyme) 180 mg capsule Discontinued 360 mg PO DAILY as needed for Indigestion October 14, 2018 12:00am November 16, 2023 10:35am traMADol hydrochloride 50 mg oral tablet (20 sources) Opioid Agonist Start: End: take 1 tablet by mouth every six hours as needed for pain Tramadol 50 mg tablet Discontinued 50 mg PO EVERY 6 HOURS as needed for pain June 21, 2018 1:00am January 18, 2024 3:03pm Comment on above: Take 50 mg by mouth. traZODone hydrochloride 50 mg oral tablet (20 sources) Serotonin Reuptake Inhibitor Start: End: take 2 tablets by mouth once daily at bedtime traZODone (DESYREL) 50 mg tablet Indications: Insomnia, unspecified type Take 2 tablets by mouth daily at bedtime. 60 tablet 2 04/06/2023 11/24/2023 Discontinued Start: 01-05-2023 take 1 tablet by bradford th once daily at bedtime traZODone (DESYREL) 50 mg tablet Indications: Insomnia, unspecified type Take 1 tablet by mouth daily at bedtime. 30 tablet 2 01/05/2023 Active Start: 06-21-2018 End: 10-14-2018 take 1 tablet by mouth once daily Trazodone 50 mg tablet Discontinued 50 mg PO DAILY June 21, 2018 1:00am October 14, 2018 10:15am Comment on above: Take 1 tablet by bradford th daily at bedtime. Take 2 tablets by mo uth daily at bedtime. urea 400 mg/ml topical cream (18 sources) End: 11-21-2021 urea (CARMOL) 40 % Apply to affected area as needed. 0 11/21/2021 Discontinued (Discontinued by Patient) Comment on above: Apply to affected ar ea as needed. Problems Active Problems Problem Classification Problem Date Documented Da te Episodic/Chronic Abdominal pain (1 source) Left lower quadrant pain; Translations: [Left lower quadrant pain] Onset: 5 Episodic Acquired foot deformities (2 sources) Hammer toe; Translations: [Other hammer toe(s) (acquired), left foot] Chronic Acquired foot deformities (2 sources) Hammer toe; Translations: [Other hammer toe(s) (acquired), right foot] Chronic Acute cerebrovascular disease (20 sources) Cerebral infarction; Translations: [Cerebral infarction, unspecified] Onset: 0 01-16-2015 Chronic Comment on above: acute ischemic CVA L eft mook Anxiety disorders (20 sources) Anxiety state; Translations: [Generalized anxiety disorder] Onset: 6 10-02-2017 Chronic Asthma (20 sources) Asthma; Translations: [Unspecified asthma, uncomplicated] Onset: 0 Resolved: 0 05-16-2019 Chronic Chronic obstructive pulmonary disease and bronchiectasis (3 sources) Chronic obstructive lung disease; Translations: [Chronic obstructive pulmonary disease, unspecified] Onset: 5 09-13-2024 Chronic Coronary atherosclerosis and other heart disease (20 sources) Coronary atherosclerosis; Translations: [Atherosclerotic heart disease of [place] coronary artery without angina pectoris] Onset: 6 Resolved: 0 09-29-2019 Chronic Comment on above: PTCA and JUANY of prox imal RCA 06/26/2000 @ [facility] per Dr. Ada Garcia Diabetes mellitus with complications (20 sources) Diabetic polyneuropathy; Translations: [Diabetic neuropathy] Onset: 9 Resolved: 1 05-16-2019 Chronic Diabetes mellitus without complication (20 sources) Type 1 diabetes mellitus; Translations: [Type 1 diabetes mellitus with other diabetic ophthalmic complication] Onset: 9 05-16-2019 Chronic Diabetes mellitus without complication (20 sources) Hyperglycemia; Translations: [Hyperglycemia, unspecified] Onset: 1 08-10-2020 Episodic Diabetes mellitus without complication (1 source) Diabetes mellitus without complication Onset: 5 Disorders of lipid metabolism (20 sources) Dyslipidemia; Translations: [Hyperlipidemia, unspecified] Onset: 6 05-16-2019 Chronic Diverticulosis and diverticulitis (20 sources) Diverticulosis of colon; Translations: [Diverticulosis of large intestine without perforation or abscess without bleeding] Onset: 0 Resolved: 0 04-25-2010 Chronic E Codes: Fall (2 sources) Fall; Translations: [Unspecified fall, initial encounter] 11-24-2022 Episodic Esophageal disorders (20 sources) Gastroesophageal reflux disease; Translations: [Gastro-esophageal reflux disease without esophagitis] Onset: 6 05-16-2019 Chronic Esophageal disorders (20 sources) Esophagitis; Translations: [Esophagitis] 08-08-2005 Episodic Essential hypertension (20 sources) Essential hypertension; Translations: [Hypertensive disorder] Onset: 0 05-16-2019 Chronic Genitourinary symptoms and ill-defined conditions (3 sources) Dysuria; Translations: [Dysuria] Episodic Heart valve disorders (7 sources) Aortic valve stenosis; Translations: [Nonrheumatic aortic (valve) stenosis] Onset: 5 05-17-2024 Chronic Comment on above: mild Hepatitis (19 sources) Nonalcoholic steatohepatitis; Translations: [Nonalcoholic steatohepatitis (BONILLA)] Onset: 1 Chronic Late effects of cerebrovascular disease (20 sources) Ataxia as sequela of cerebrovascular disease; 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] Onset: 6 08-12-2015 Chronic Mood disorders (20 sources) Major depression in remission; Translations: [Major depressive disorder, single episode, in full remission] Onset: 6 09-29-2019 Chronic Nutritional deficiencies (11 sources) Vitamin D deficiency; Translations: [Vitamin D deficiency, unspecified] Chronic Occlusion or stenosis of precerebral arteries (20 sources) Bilateral stenosis of carotid arteries; Translations: [Occlusion and stenosis of bilateral carotid arteries] Onset: 2 05-10-2021 Chronic Osteoarthritis (20 sources) Primary osteoarthritis, right hand; Translations: [Bilateral wrist osteoarthritis] Onset: 0 05-16-2019 Chronic Other aftercare (20 sources) Patient encounter status; Translations: [penitentiary (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 of antithrombotics/antipl atelets] Onset: 0 Resolved: 1 03-04-2021 Episodic Other aftercare (20 sources) Drug therapy finding; Translations: [Other half-way (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 therapy] Onset: 2 09-29-2022 Episodic Other aftercare (3 sources) Long-term current use of diuretic; Translations: [Encounter for therapeutic drug level monitoring] 10-23-2022 Episodic Other bone disease and musculoskeletal deformities (2 sources) Disorder of skeletal system; Translations: [Disorder of bone and cartilage] Onset: 0 05-16-2019 Chronic Other bone disease and musculoskeletal deformities (6 sources) Osteopenia; Translations: [Other specified disorders of bone density and structure, right thigh] 02-23-2023 Episodic Other circulatory disease (20 sources) History of cerebrovascular accident; Translations: [Personal history of transient ischemic attack (TIA), and cerebral infarction without residual deficits] Onset: 0 05-16-2019 Episodic Comment on above: Has had multiple TIA 's , also major CVA circa October 2012 Other connective tissue disease (20 sources) Pain of bilateral hands; Translations: [Pain in right hand] Onset: 0 05-16-2019 Episodic Other connective tissue disease (3 sources) Pain of toe of left foot; Translations: [Pain in left toe(s)] Episodic Other connective tissue disease (3 sources) Pain of toe of right foot; Translations: [Pain in right toe(s)] Episodic Other connective tissue disease (1 source) Pain in right foot; Translations: [Pain in right foot] Episodic Other connective tissue disease (1 source) Recurrent falls ; Translations: [Repeated falls] 08-19-2023 Episodic Other connective tissue disease (2 sources) Pain of bilateral hands; Translations: [Bilateral hand pain] Onset: 0 05-16-2019 Other disorders of stomach and duodenum (13 sources) Gastroparesis syndrome; Translations: [Gastroparesis] 03-25-2022 Episodic Other disorders of stomach and duodenum (5 sources) Gastroparesis; Translations: [Gastroparesis] Onset: 5 03-23-2023 Episodic Other gastrointestinal disorders (13 sources) Chronic constipation; Translations: [Other constipation] Episodic Other gastrointestinal disorders (1 source) Abdominal bloating; Translations: [Abdominal distension (gaseous)] Episodic Other gastrointestinal disorders (10 sources) H/O: colitis; Translations: [Personal history of other diseases of the digestive system] 12-04-2021 Episodic Other gastrointestinal disorders (2 sources) Personal history of other diseases of the digestive system; Translations: [Personal history of other diseases of digestive system] Episodic Other gastrointestinal disorders (5 sources) Other constipation; Translations: [Constipation, unspecified] Episodic Other hereditary and degenerative nervous system conditions (20 sources) Restless legs; Translations: [Restless legs syndrome] Onset: 1 06-25-2010 Chronic Other inflammatory condition of skin (2 sources) Intertrigo; Translations: [Erythema intertrigo] 11-25-2023 Episodic Other injuries and conditions due to external causes (1 source) Contusion; Translations: [Other injury of unspecified body region, initial encounter] 08-19-2023 Episodic Other liver diseases (20 sources) Steatosis of liver; Translations: [Fatty (change of) liver, not elsewhere classified] Onset: 0 05-16-2019 Chronic Other lower respiratory disease (20 sources) Interstitial lung disease; Translations: [Interstitial pulmonary disease, unspecified] Chronic Other lower respiratory disease (10 sources) Nonspecific interstitial pneumonia; Translations: [Other specified interstitial pulmonary diseases] Onset: 3 09-29-2022 Chronic Other lower respiratory disease (5 sources) Interstitial pulmonary disease, unspecified; Translations: [Postinflammatory pulmonary fibrosis] Onset: 3 08-26-2022 Chronic Other lower respiratory disease (16 sources) Fibrosis of lung; Translations: [Pulmonary fibrosis, unspecified] Onset: 3 01-08-2023 Chronic Other lower respiratory disease (4 sources) Pulmonary fibrosis, unspecified; Translations: [Pulmonary fibrosis, unspecified] Onset: 3 Chronic Other lower respiratory disease (2 sources) Other specified interstitial pulmonary diseases; Translations: [Other specified interstitial pulmonary diseases] Onset: 3 Chronic Other lower respiratory disease (4 sources) Cough; Translations: [Acute cough] Episodic Other lower respiratory disease (5 sources) Dyspnea; Translations: [Shortness of breath] Episodic Other lower respiratory disease (2 sources) Chest pain on breathing; Translations: [Chest pain on breathing] Episodic Other lower respiratory disease (20 sources) Restrictive lung disease; Translations: [Other disorders of lung] Onset: 3 Resolved: 3 11-12-2022 Episodic Other lower respiratory disease (4 sources) Other disorders of lung; Translations: [Other disorders of lung] Onset: 3 Episodic Other lower respiratory disease (2 sources) Cough; Translations: [Acute cough] 07-09-2022 Episodic Other lower respiratory disease (2 sources) Wheezing; Translations: [Wheezing] 01-25-2024 Episodic Other lower respiratory disease (6 sources) Chronic cough; Translations: [Chronic cough] Onset: 5 07-26-2024 Episodic Other non-traumatic joint disorders (20 sources) Bilateral rotator cuff arthropathy of shoulder; Translations: [Other specific arthropathies, not elsewhere classified, right shoulder] Onset: 0 Chronic Other non-traumatic joint disorders (4 sources) Shoulder pain; Translations: [Pain in right shoulder] Onset: 0 05-16-2019 Episodic Other non-traumatic joint disorders (2 sources) Hip pain; Translations: [Pain in left hip] 11-24-2022 Episodic Other non-traumatic joint disorders (7 sources) Pain in right knee; Translations: [Right knee pain] 05-23-2023 Episodic Other non-traumatic joint disorders (1 source) Pain in left elbow; Translations: [Left elbow pain] Onset: 5 Episodic Other non-traumatic joint disorders (2 sources) Bilateral wrist pain; Translations: [Bilateral wrist pain] Onset: 0 05-16-2019 Other non-traumatic joint disorders (2 sources) Bilateral rotator cuff arthropathy of shoulder; Translations: [Rotator cuff arthropathy of both shoulders] Onset: 0 05-16-2019 Other nutritional; endocrine; and metabolic disorders (18 sources) Obese class II; Translations: [Obesity, unspecified] Onset: 1 08-10-2020 Chronic Other nutritional; endocrine; and metabolic disorders (20 sources) Obesity; Translations: [Obesity, unspecified] Onset: 6 Resolved: 0 01-21-2021 Chronic Other nutritional; endocrine; and metabolic disorders (2 sources) Obesity, unspecified; Translations: [Obesity, unspecified] Chronic Other nutritional; endocrine; and metabolic disorders (2 sources) Obese class I; Translations: [Obesity, unspecified] 08-11-2023 Chronic Other nutritional; endocrine; and metabolic disorders (1 source) Weight decreased; Translations: [Abnormal weight loss] 09-05-2024 Episodic Other screening for suspected conditions (not mental disorders or infectious disease) (20 sources) Other specified abnormal findings of blood chemistry; Translations: [Other abnormal blood chemistry] Onset: 6 Resolved: 3 08-10-2020 Episodic Other skin disorders (5 sources) Keratosis; Translations: [Epidermal thickening, unspecified] Episodic Other skin disorders (2 sources) [place] - lesion ; Translations: [Corns and callosities] Episodic Other upper respiratory disease (1 source) Seasonal allergic rhinitis; Translations: [Other allergic rhinitis] 08-29-2024 Chronic Other upper respiratory disease (1 source) Other allergic rhinitis; Translations: [Seasonal allergic rhinitis due to other allergic trigger] Onset: 5 Chronic Other upper respiratory disease (1 source) Bleeding from nose; Translations: [Epistaxis] 04-14-2024 Episodic Other upper respiratory infections (11 sources) Recurrent sinusitis; Translations: [Chronic sinusitis, unspecified] Onset: 5 04-14-2024 Chronic Other upper respiratory infections (2 sources) Acute sinusitis; Translations: [Acute sinusitis, unspecified] 01-13-2024 Episodic Pulmonary heart disease (4 sources) Pulmonary arterial hypertension; Translations: [Secondary pulmonary [...] devices] Onset: 3 Chronic Residual codes; unclassified (10 sources) Early satiety; Translations: [Early satiety] 12-05-2021 Episodic Residual codes; unclassified (2 sources) Early satiety; Translations: [Early satiety] Episodic Residual codes; unclassified (1 source) Bilateral lower limb edema; Translations: [Localized edema] Episodic Rheumatoid arthritis and related disease (20 sources) Rheumatoid arthritis of multiple joints; Translations: [Rheumatoid arthritis without rheumatoid factor, multiple sites] Onset: 7 Resolved: 1 05-16-2019 Chronic Spondylosis; intervertebral disc disorders; other back problems (20 sources) Degeneration of lumbar intervertebral disc; Translations: [Degeneration of thoracic intervertebral disc] Onset: 1 05-16-2019 Chronic Sprains and strains (20 sources) Strain of thoracic region; Translations: [Strain of muscle and tendon of back wall of thorax, initial encounter] Onset: 7 Resolved: 0 01-28-2021 Episodic Superficial injury; contusion (1 source) Contusion of right lesser toe; Translations: [Contusion of right lesser toe(s) without damage to nail, initial encounter] Episodic Unclassified (2 sources) Patient encounter status; Translations: [Antiplatelet or antithrombotic long-term use] Onset: 0 05-16-2019 Unclassified (2 sources) Long-term current use of aspirin; Translations: [penitentiary (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 of aspirin] Onset: 0 05-16-2019 Unclassified (1 source) Acute cough; Translations: [Acute cough] Onset: 5 Urinary tract infections (2 sources) Urinary tract infectious disease; Translations: [Urinary tract infection, site not specified] Episodic Viral infection (1 source) Disease caused by 2019-nCoV; Translations: [COVID-19] 01-13-2024 Episodic Past or Other Problems Problem Classification Problem Date Documented Da te Episodic/Chronic Acute and unspecified renal failure (20 sources) Acute renal failure syndrome; Translations: [Acute kidney failure, unspecified] Onset: 09-29-2019 Resolved: 09-30-2019 09-30-2019 Episodic Acute bronchitis (20 sources) Acute bronchitis; Translations: [Acute bronchitis, unspecified] Onset: 05-18-2008 Resolved: 04-30-2009 04-30-2009 Episodic Allergic reactions (20 sources) H/O: multiple allergies; Translations: [Allergy status to unspecified drugs, medicaments and biological substances status] Onset: 06-19-2020 06-19-2020 Episodic Bacterial infection; unspecified site (1 source) Other specified bacterial agents as the cause of diseases classified elsewhere; Translations: [Bacterial sinusitis] Onset: 08-29-2024 Episodic Conditions associated with dizziness or vertigo (20 sources) Dizziness and giddiness; Translations: [Dizziness and giddiness] Onset: 02-02-2013 Resolved: 09-29-2019 04-30-2009 Episodic Coronary atherosclerosis and other heart disease (20 sources) Patient post percutaneous transluminal coronary angioplasty; Translations: [Coronary angioplasty status] Resolved: 04-30-2009 04-30-2009 Episodic Deficiency and other anemia (20 sources) Anemia; Translations: [Anemia, unspecified] Onset: 12-04-2006 Resolved: 09-29-2019 09-29-2019 Episodic Fluid and electrolyte disorders (20 sources) Metabolic acidosis; Translations: [Metabolic acidosis] Onset: 09-29-2022 Resolved: 02-02-2023 09-29-2022 Episodic Hemorrhoids (20 sources) External hemorrhoids; Translations: [Residual hemorrhoidal skin tags] Resolved: 04-30-2009 04-30-2009 Episodic Immunizations and screening for infectious disease (4 sources) Viral screening status; Translations: [Encounter for screening for other viral diseases] Onset: 01-08-2023 11-12-2022 Episodic Malaise and fatigue (20 sources) Fatigue; Translations: [Other fatigue] Onset: 05-16-2019 05-16-2019 Episodic Mycoses (20 sources) Onychomycosis; Translations: [Tinea unguium] Onset: 09-04-2005 Resolved: 04-30-2009 Episodic Nutritional deficiencies (20 sources) Vitamin deficiency; Translations: [Vitamin deficiency, unspecified] Onset: 04-23-2009 04-25-2010 Episodic Other aftercare (20 sources) Long-term current use of systemic steroid; Translations: [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 (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 of systemic steroids] Onset: 08-10-2020 Episodic Other aftercare (20 sources) Long-term current use of aspirin; Translations: [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] Onset: 05-16-2019 Episodic Other aftercare (19 sources) H/O: high risk medication; Translations: [Other watermelon harvesting supervisor (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 therapy] Onset: 05-21-2022 09-29-2022 Episodic Other aftercare (5 sources) 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 of non-steroidal anti-inflammatory drug; Translations: [penitentiary (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 of non-steroidal anti-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 (NSAID)] Onset: 09-02-2021 09-02-2021 Episodic Other aftercare (5 sources) Long-term current use of drug therapy; Translations: [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 (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 of antithrombotics/antip latelets] Onset: 05-16-2019 Resolved: 03-04-2021 03-04-2021 Episodic Other aftercare (1 source) Other watermelon harvesting supervisor (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 therapy; Translations: [Long-term use of Plaquenil] Onset: 10-26-2024 Episodic Other bone disease and musculoskeletal deformities (20 sources) Disorder of skeletal system; Translations: [Disorder of bone, unspecified] Onset: 05-16-2019 Resolved: 09-29-2019 05-16-2019 Episodic Other bone disease and musculoskeletal deformities (1 source) Other specified disorders of bone density and structure, right thigh; Translations: [Osteopenia of right hip] Onset: 10-26-2024 Episodic Other connective tissue disease (20 sources) H/O: rheumatoid arthritis; Translations: [Personal history of other diseases of the musculoskeletal system and connective tissue] Onset: 05-16-2019 05-16-2019 Episodic Other connective tissue disease (18 sources) Triggering of digit; Translations: [Trigger finger, right index finger] Onset: 08-10-2020 08-10-2020 Episodic Other connective tissue disease (20 sources) Calcific tendinitis of shoulder; Translations: [Calcific tendinitis of unspecified shoulder] Onset: 07-09-2010 07-09-2010 Episodic Other connective tissue disease (20 sources) Pain in limb; Translations: [Pain in unspecified limb] Onset: 03-20-2005 Resolved: 04-30-2009 04-30-2009 Episodic Other connective tissue disease (20 sources) Contracture of palmar fascia; 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]] Onset: 03-23-2006 Resolved: 04-30-2009 04-30-2009 Episodic Other connective tissue disease (20 sources) Tenosynovitis; Translations: [Synovitis and tenosynovitis, unspecified] Onset: 06-29-2008 Resolved: 04-30-2009 04-30-2009 Episodic Other connective tissue disease (1 source) Pain in right hand; Translations: [Pain in both hands] Onset: 10-26-2024 Episodic Other connective tissue disease (1 source) Pain in left hand; Translations: [Pain in both hands] Onset: 10-26-2024 Episodic Other diseases of veins and lymphatics (20 sources) Vascular insufficiency; Translations: [Venous insufficiency (chronic) (peripheral)] Onset: 09-08-2011 09-08-2011 Episodic Other gastrointestinal disorders (20 sources) Dysphagia; Translations: [Other dysphagia] Onset: 07-18-2019 Resolved: 09-29-2019 09-29-2019 Episodic Other hematologic conditions (3 sources) Raised cardiac enzyme or marker; Translations: [Other specified abnormalities of plasma proteins] Onset: 06-22-2019 08-20-2022 Episodic Other inflammatory condition of skin (20 sources) Psoriasis; Translations: [Other psoriasis] Resolved: 09-29-2019 09-29-2019 Chronic Other liver diseases (18 sources) Alkaline phosphatase raised; Translations: [Abnormal levels of other serum enzymes] Onset: 08-10-2020 Resolved: 08-10-2020 08-10-2020 Episodic Other lower respiratory disease (19 sources) Elevated diaphragm; Translations: [Disorders of diaphragm] Onset: 03-04-2021 Episodic Other nervous system disorders (20 sources) Abnormal gait; Translations: [Unspecified abnormalities of gait and mobility] Onset: 03-01-2012 Resolved: 06-25-2015 08-04-2014 Episodic Other non-traumatic joint disorders (20 sources) Monoarthritis of hand; Translations: [Monoarthritis, not elsewhere classified, unspecified hand] Onset: 08-08-2005 Resolved: 09-29-2019 09-29-2019 Chronic Other non-traumatic joint disorders (18 sources) Bilateral wrist pain; Translations: [Pain in right wrist] Onset: 05-16-2019 05-16-2019 Episodic Other non-traumatic joint disorders (17 sources) Bilateral chronic pain of upper limbs; Translations: [Pain in right shoulder] Onset: 05-16-2019 05-16-2019 Episodic Other non-traumatic joint disorders (20 sources) Shoulder joint pain; Translations: [Pain in unspecified shoulder] Onset: 05-22-2006 Resolved: 04-30-2009 04-30-2009 Episodic Other non-traumatic joint disorders (20 sources) Pain in lower limb; Translations: [Pain in unspecified knee] Onset: 01-21-2010 Resolved: 06-25-2015 06-25-2015 Episodic Other nutritional; endocrine; and metabolic disorders (18 sources) Hypoalbuminemia; Translations: [Other disorders of plasma-protein metabolism, not elsewhere classified] Onset: 08-10-2020 Resolved: 09-29-2022 08-10-2020 Chronic Other nutritional; endocrine; and metabolic disorders (20 sources) Severe obesity; Translations: [Morbid (severe) obesity due to excess calories] Onset: 10-18-2020 Resolved: 09-05-2024 10-18-2020 Chronic Other nutritional; endocrine; and metabolic disorders (1 source) Abnormal weight loss; Translations: [Weight loss] Onset: 09-05-2024 Episodic Other skin disorders (20 sources) Ingrowing nail; Translations: [Ingrowing nail] Onset: 03-20-2005 Resolved: 04-30-2009 04-30-2009 Episodic Other upper respiratory disease (20 sources) Allergic rhinitis; Translations: [Allergic rhinitis, unspecified] Onset: 01-13-2005 Resolved: 06-25-2015 06-25-2015 Chronic Pneumonia (except that caused by tuberculosis or sexually transmitted disease) (7 sources) Infective pneumonia; Translations: [Pneumonia, unspecified organism] Onset: 08-29-2024 Episodic Residual codes; unclassified (18 sources) Patient noncompliance - general; Translations: [Patient's noncompliance with other medical treatment and regimen] Onset: 08-10-2020 08-10-2020 Episodic Residual codes; unclassified (18 sources) Noncompliance with treatment; Translations: [Patient's noncompliance with other medical treatment and regimen] Onset: 08-10-2020 08-10-2020 Episodic Residual codes; unclassified (20 sources) Insomnia; Translations: [Insomnia, unspecified] Onset: 08-09-2015 08-09-2015 Episodic Residual codes; unclassified (1 source) Insomnia, unspecified; Translations: [Insomnia, unspecified type] Onset: 08-09-2015 Episodic Skin and subcutaneous tissue infections (20 sources) Disorder of nail; Translations: [Cellulitis of unspecified toe] Onset: 08-11-2006 Resolved: 04-30-2009 04-30-2009 Episodic Spondylosis; intervertebral disc disorders; other back problems (20 sources) Backache; Translations: [Neck pain] Onset: 03-01-2012 Resolved: 09-29-2019 05-16-2019 Episodic Unclassified (5 sources) Onset: 01-08-2023 01-08-2023 Results Test Name Value Interpretation Reference Range Facility [facility] 02-23-2025 [facility] Telephone (ENWSTR) ----- KYLIE RUSSO ([id number]) 1945 F Date Time Provider Department 02/23/25 EVA NIELSEN ENWSTR During your visit today, we recorded the following information about you: Diamond Rushing MA 02/23/2025 3:28 PM Signed Patient phoned to report pump has failed after months of reporting malfunctions. Patient will be without pump for a few days. Emergency long acting insulin is on hand but she needs mealtime insulin sent to [facility]. New pump should be on hand when raúl is seen next week. KERVIN Macias Snigdha Reddy, MD 02/23/2025 3:36 PM Signed Sent for lispro pen and needles Manuela Mejia LPN 02/24/2025 8:26 AM Signed Patient calling in stating last night she dropped to 49 with a finger stick. She states she was at 278 so she took her 12 units and ate a turkey burger plain no bun and potatoes. She states she started to feel funny and was unable to assist herself so her came and checked a finger stick and it showed she dropped to 49. She also mentioned that the medications that were sent in for her are going to cost her $55-$85 which she cannot afford so she is going to use the lispro she has at home. Patient is requesting a call back. ELA Sanchez Laurie, MA 02/24/2025 12:01 PM Signed Pt calling back to speak with office regarding her low blood sugar. Details in previous note. KERVIN Infante Snigdha Reddy, MD 02/24/2025 3:01 PM Signed As per her correction scale, she had to take only 4 units if her Blood sugar was 278 mg/dl, and she has not taken any carbs with the meal. So, low blood sugar was not unexpected. Please advise her to follow the pump settings to give herself bolus insulin, and use lantus as indicated on the medication for basal OMagalys Cain RN 02/24/2025 4:10 PM Signed Call returned to Pt - no answer. Left voicemail with below instructions per Dr. Nielsen. While she does not have an insulin pump, her insulin dosing regimen should be as follows: -Lantus 51 units once daily -Humalog, as per correction scale following pump settings (i.e. 1:10 insulin-carb ratio) for bolus insulin [max dose 45 units daily] Magalys Mera RN February 24, 2025 4:10 PM Allergies As of Date: 02/23/2025 Noted Allergy Reaction AMITRIPTYLINE 11/09/2012 14 - [...] 01/21/2021 1 - Mental Status Change PERCOCET (OXYCODONE-ACETAMINOPHEN) 05/29/2010 16 - Unknown SULFA (SULFONAMIDE ANTIBIOTICS) 01/10/2005 4 - Hives Comments: blisters AGGRENOX (ASPIRIN-DIPYRIDAMOLE) 12/18/2008 14 - Other: See Comments Comments: MIGRAINES AND VOMITING CEPHALEXIN (BULK) 05/12/2008 8 - GI Upset DURICEF (CEFADROXIL) 01/10/2005 4 - Hives NORTRIPTYLINE 02/11/2013 14 - Other: See Comments Comments: vertigo Date Reviewed: 01/18/2025 Reviewed by: Hernesto Harvey APRN.CROP AND SOIL TECHNICIAN - Fully Assessed Reason for Visit: Patient Update [1234] Cmt: Pump failed Primary Visit Diagnosis: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) [E10.3293] Other Visit Diagnoses:Diabetic autonomic neuropathy associated with type 1 diabetes mellitus (HCC) [E10.43] Gastroparesis due to secondary diabetes (HCC) [E13.43] Order(s):insulin lispro (HUMALOG KWIKPEN) 100 unit/mLAt the time of pump failure- a total maximum dose of 45 units dailyDisp: 15 mLRfl: 0 insulin needles, DISPOSABLE, (PEN NEEDLE) 31 gauge x 5/164 each once daily.Disp: 100 eachRfl: 1 Prescriptions as of 02/24/2025 - insulin lispro (HUMALOG KWIKPEN) 100 unit/mL At the time of pump failure- a total maximum dose of 45 units daily - insulin needles, DISPOSABLE, (PEN NEEDLE) 31 gauge x 5/16 4 each once daily. - amLODIPine (NORVASC) 5 mg tablet Take 1 tablet by mouth once daily. - zolpidem (AMBIEN) 10 mg Take 1 tablet by mouth at bedtime as needed (insomnia) for up to 180 days. - atorvastatin (LIPITOR) 40 mg tablet Take 1 tablet by mouth once daily. - nystatin (MYCOSTATIN) 100,000 unit/mL suspension 5 mL four times daily. Swish/swallow or swish/expectorate - pramipexole (MIRAPEX) 1 mg tablet Take 2 tablets by mouth daily at bedtime. - sodium chloride (SALINE MIST) 0.65 % nasal spray Use 1 spray in the nose two times a day. - azelastine 0.1% nasal spray Use 1 spray (more content not included)... Normal [facility] CBC W Auto Differential pane l (Bld)on 02-21-2025 Basophils (Bld) [#/Vol] 0.05 10*3/uL Normal <0.11 [facility] Comment on above: Order Comment: Speci men Type: BLOOD SPECIMENOrdering Facility: [facility] Address: [address] [place] [address] Performed By: #### 5 7021-8 ####[facility] [id number] [place] [address] [place] Basophils/100 WBC (Bld) 0.5 % Normal [facility] Comment on above: Order Comment: Speci men Type: BLOOD SPECIMENOrdering Facility: [facility] Address: [address] [place] [address] Performed By: #### 5 7021-8 ####[facility]OSPITALNCPHONG [id number] [place] [address] [place] Differential cell count method Nom (Bld) Auto Normal [facility] Comment on above: Order Comment: Speci men Type: BLOOD SPECIMENOrdering Facility: [facility] Address: [address] [place] [address] Performed By: #### 5 7021-8 ####[facility]ITALNCMOUNT[facility] [id number] [place] [address] [place] Eosinophils (Bld) [#/Vol] 0.52 10*3/uL High <0.46 [facility] Comment on above: Order Comment: Speci men Type: BLOOD SPECIMENOrdering Facility: [facility] Address: [address] [place] [address] Performed By: #### 5 7021-8 ####[facility] [id number] [place] [address] [place] Eosinophils/100 WBC (Bld) 5.4 % Normal [facility] Comment on above: Order Comment: Speci men Type: BLOOD SPECIMENOrdering Facility: [facility] Address: [address] [place] [address] Performed By: #### 5 7021-8 ####[facility]OSPITALNCLI [id number] [place] [address] [place] Erythrocyte distribution width (RBC) [Ratio] 12.7 % Normal 11.5-15.0 [facility] Comment on above: Order Comment: Speci men Type: BLOOD SPECIMENOrdering Facility: [facility] Address: [address] [place] [address] Performed By: #### 5 7021-8 ####[facility] [id number] [place] [address] [place] Hematocrit (Bld) [Volume fraction] 33.5 % Low 36.0-46.0 [facility] Comment on above: Order Comment: Speci men Type: BLOOD SPECIMENOrdering Facility: [facility] Address: [address] [place] [address] Performed By: #### 5 7021-8 ####[facility] HOSPITALRADHA [id number] [place] [address] [place] Hemoglobin (Bld) [Mass/Vol] 11.5 g/dL Normal 11.5-15.5 [facility] Comment on above: Order Comment: Speci men Type: BLOOD SPECIMENOrdering Facility: [facility] Address: [address] [place] [address] Performed By: #### 5 7021-8 ####[facility] [id number] [place] [address] [place] Immature granulocytes (Bld) [#/Vol] 0.03 10*3/uL Normal <0.10 [facility] Comment on above: Order Comment: Speci men Type: BLOOD SPECIMENOrdering Facility: [facility] Address: [address] [place] [address] Performed By: #### 5 7021-8 ####[facility] [id number] [place] [address] [place] Immature granulocytes/100 WBC (Bld) 0.3 % Normal [facility] Comment on above: Order Comment: Speci men Type: BLOOD SPECIMENOrdering Facility: [facility] Address: [address] [place] [address] Performed By: #### 5 7021-8 ####[facility]OSPITALNCLIA [id number] [place] [address] [place] Lymphocytes (Bld) [#/Vol] 1.14 10*3/uL Normal 1.00-4.00 [facility] Comment on above: Order Comment: Speci men Type: BLOOD SPECIMENOrdering Facility: [facility] Address: [address] [place] [address] Performed By: #### 5 7021-8 ####[facility] LUCYSAN DIEGONCLIA [id number] [place] [address] [place] Lymphocytes/100 WBC (Bld) 11.9 % Normal [facility] Comment on above: Order Comment: Speci men Type: BLOOD SPECIMENOrdering Facility: [facility] Address: [address] [place] [address] Performed By: #### 5 7021-8 ####[facility]ITALRADHA [id number] [place] [address] [place] MCH (RBC) [Entitic mass] 33.8 pg Normal 26.0-34.0 [facility] Comment on above: Order Comment: Speci men Type: BLOOD SPECIMENOrdering Facility: [facility] Address: [address] [place] [address] Performed By: #### 5 7021-8 ####[facility]ITALBROOKMOUNTAIN [facility]ST [facility] [id number] [place] [address] [place] MCHC (RBC) [Mass/Vol] 34.3 g/dL Normal 30.5-36.0 [facility] Comment on above: Order Comment: Speci men Type: BLOOD SPECIMENOrdering Facility: [facility] Address: [address] [place] [address] Performed By: #### 5 7021-8 ####[facility]OS[facility]ITALBROOKLIOj [id number] [place] [address] [place] MCV (RBC) [Entitic vol] 98.5 fL Normal 80.0-100.[address] [facility] Comment on above: Order Comment: Speci men Type: BLOOD SPECIMENOrdering Facility: [facility] Address: [address] [place] [address] Performed By: #### 5 7021-8 ####[facility] HOSPITALNCLI [id number] [place] [address] [place] Monocytes (Bld) [#/Vol] 1.05 10*3/uL High <0.87 [facility] Comment on above: Order Comment: Speci men Type: BLOOD SPECIMENOrdering Facility: [facility] Address: [address] [place] [address] Performed By: #### 5 7021-8 ####[facility] [id number] [place] [address] [place] Monocytes/100 WBC (Bld) 11.0 % Normal [facility] Comment on above: Order Comment: Speci men Type: BLOOD SPECIMENOrdering Facility: [facility] Address: [address] [place] [address] Performed By: #### 5 7021-8 ####[facility] [id number] [place] [address] [place] Neutrophils (Bld) [#/Vol] 6.79 10*3/uL Normal 1.45-7.50 [facility] Comment on above: Order Comment: Speci men Type: BLOOD SPECIMENOrdering Facility: [facility] Address: [address] [place] [address] Performed By: #### 5 7021-8 ####[facility] [id number] [place] [address] [place] Neutrophils/100 WBC (Bld) 70.9 % Normal [facility] Comment on above: Order Comment: Speci men Type: BLOOD SPECIMENOrdering Facility: [facility] Address: [address] [place] [address] Performed By: #### 5 7021-8 ####[facility] [id number] [place] [address] [place] Nucleated RBC (Bld) [#/Vol] 10*3/uL Normal <0.01 [facility] Comment on above: Order Comment: Speci men Type: BLOOD SPECIMENOrdering Facility: [facility] Address: [address] [place] [address] Performed By: #### 5 7021-8 ####[facility] SAW [id number] [place] [address] [place] Nucleated RBC/100 WBC (Bld) [Ratio] 0.0 /100 WBC Normal [facility] Comment on above: Order Comment: Speci men Type: BLOOD SPECIMENOrdering Facility: [facility] Address: [address] [place] [address] Performed By: #### 5 7021-8 ####[facility]OSPITALNCDONA [id number] [place] [address] [place] Platelet mean volume (Bld) [Entitic vol] 10.6 fL Normal 9.0-12.7 [facility] Comment on above: Order Comment: Speci men Type: BLOOD SPECIMENOrdering Facility: [facility] Address: [address] [place] [address] Performed By: #### 5 7021-8 ####[facility] HOSPITALBROOKA [id number] [place] [address] [place] Platelets (Bld) [#/Vol] 305 10*3/uL Normal 150-400 [facility] Comment on above: Order Comment: Speci men Type: BLOOD SPECIMENOrdering Facility: [facility] Address: [address] [place] [address] Performed By: #### 5 7021-8 ####[facility]ACHWOODLIA [id number] [place] [address] [place] RBC (Bld) [#/Vol] 3.40 10*6/uL Low 3.90-5.20 [facility] Comment on above: Order Comment: Speci men Type: BLOOD SPECIMENOrdering Facility: [facility] Address: [address] [place] [address] Performed By: #### 5 7021-8 ####[facility] AYALATOWNCLIA [id number] [place] [address] [place] WBC (Bld) [#/Vol] 9.58 10*3/uL Normal 3.70-11.00 [facility] Comment on above: Order Comment: Speci men Type: BLOOD SPECIMENOrdering Facility: [facility] Address: [facility] [place] [address] Performed By: #### 5 7021-8 ####[facility]ENTERKAYLEE PEREZWNCLIA [id number] [address] [place] Loc 02-21-2025 CNPN Telephone (ENWSTR) ----- KYLIE RUSSO ([id number]) 1945 F Date Time Provider Department 02/21/25 EVA NIELSEN During your visit today, we recorded the following information about you: Magalys Mera RN 02/21/2025 12:11 PM Signed Request received from [employer] for last OV note and proof of previous c-peptide with concurrent fasting glucose of 225 or under. Record found from 2010. Printed and faxed to [employer] at . Fax confirmation received. Magalys Mera RN February 21, 2025 12:11 PM Allergies As of Date: 02/21/2025 Noted Allergy Reaction AMITRIPTYLINE 11/09/2012 14 - [...] 01/21/2021 1 - Mental Status Change PERCOCET (OXYCODONE-ACETAMINOPHEN) 05/29/2010 16 - Unknown SULFA (SULFONAMIDE ANTIBIOTICS) 01/10/2005 4 - Hives Comments: blisters AGGRENOX (ASPIRIN-DIPYRIDAMOLE) 12/18/2008 14 - Other: See Comments Comments: MIGRAINES AND VOMITING CEPHALEXIN (BULK) 05/12/2008 8 - GI Upset DURICEF (CEFADROXIL) 01/10/2005 4 - Hives NORTRIPTYLINE 02/11/2013 14 - Other: See Comments Comments: vertigo Date Reviewed: 01/18/2025 Reviewed by: Hernesto Harvey APRN.CROP AND SOIL TECHNICIAN - Fully Assessed Reason for Visit: [employer] Document Request [Other] Prescriptions as of 02/21/2025 - amLODIPine (NORVASC) 5 mg tablet Take 1 tablet by mouth once daily. - zolpidem (AMBIEN) 10 mg Take 1 tablet by mouth at bedtime as needed (insomnia) for up to 180 days. - atorvastatin (LIPITOR) 40 mg tablet Take 1 tablet by mouth once daily. - nystatin (MYCOSTATIN) 100,000 unit/mL suspension 5 mL four times daily. Swish/swallow or swish/expectorate - pramipexole (MIRAPEX) 1 mg tablet Take 2 tablets by mouth daily at bedtime. - sodium chloride (SALINE MIST) 0.65 % nasal spray Use 1 spray in the nose two times a day. - azelastine 0.1% nasal spray Use 1 spray in each nostril two times a day. - psgyfqssfnh-qmpefvsyw-pye anter (TRELEGY ELLIPTA) 100-62.5-25 mcg inhalation powder Inhale 1 puff as instructed once daily. - insulin glargine (LANTUS SOLOSTAR [...] 1.5 tablets by mouth once daily. - Infusion Set for Insulin Pump (MEDTRONIC EXT INFUSION SET 23) iset 1 Each one time a week. - nystatin (MYCOSTATIN) powder Apply 1 application to affected area three times a day. - neomycin 500 mg tablet Take 1 tablet by mouth every 12 hours. - Insulin Syringe-Needle U-100 (BD INSULIN SYRINGE ULTRA-FINE) 1 mL 31 gauge x 09/02 Use 4 syringes daily if insulin pump fails - insulin lispro (HUMALOG U-100 INSULIN) 100 unit/mL injection as directed in Insulin pump up to 110 units daily. Dx E10.65 - diclofenac sodium (VOLTAREN ARTHRITIS PAIN TOPICAL) Apply 2 g to affected area as needed (pain). - WALKER ROLLATOR SEAT WITH 6 WHEELS [...] as needed. Problem List As Of Date 02/21/2025 Noted Resolved Hypertension [I10] Coronary artery disease involving [place]* 09/29/2019 Dizziness and Giddiness [R42] 04/30/2009 [...] Cause Unspecified [J30.9] 01/13/2005 06/25/2015 Ingrowing Nail [L60. (more content not included)... Normal [facility] Comprehensive metabolic 2000 panelon 02-21-2025 Albumin [Mass/Vol] 3.5 g/dL Low 3.9-4.9 [facility] Comment on above: Order Comment: Speci men Type: BLOOD SPECIMENOrdering Facility: [facility] Address: [address] [place] [address] Performed By: #### 2 4323-8 ####[facility] MILLTOWNCLIA [id number] [place] [address] [place] ALP [Catalytic activity/Vol] 125 U/L High 34-123 [facility] Comment on above: Order Comment: Speci men Type: BLOOD SPECIMENOrdering Facility: [facility] Address: [address] [place] [address] Performed By: #### 2 4323-8 ####[facility] MILLWNCLIA [id number] [place] [address] [place] ALT [Catalytic activity/Vol] 22 U/L Normal 7-38 [facility] Comment on above: Order Comment: Speci men Type: BLOOD SPECIMENOrdering Facility: [facility] Address: [address] [place] [address] Performed By: #### 2 4323-8 ####[facility] MILLTOWNCLIA [id number] [place] [address] [place] Anion gap [Moles/Vol] 8 mmol/L Normal 8-15 [facility] Comment on above: Order Comment: Speci men Type: BLOOD SPECIMENOrdering Facility: [facility] Address: [address] [place] [address] Performed By: #### 2 4323-8 ####[facility] MILLTOWNCLIA [id number] [place] [id number] [place] AST [Catalytic activity/Vol] 25 U/L Normal 13-35 [facility] Comment on above: Order Comment: Speci men Type: BLOOD SPECIMENOrdering Facility: [facility] Address: [address] [place] [address] Performed By: #### 2 4323-8 ####[facility] HUGOROCKINGHAM MEMORIAL HOSPITALWNCLIA [id number] [place] [address] [place] Bilirubin [Mass/Vol] 0.5 mg/dL Normal 0.2-1.3 [facility] Comment on above: Order Comment: Speci men Type: BLOOD SPECIMENOrdering Facility: [facility] Address: [address] [place] [address] Performed By: #### 2 4323-8 ####[facility]ITALNCLIA [id number] [place] [address] [place] Calcium [Mass/Vol] 9.7 mg/dL Normal 8.5-10.2 [facility] Comment on above: Order Comment: Speci men Type: BLOOD SPECIMENOrdering Facility: [facility] Address: [address] [place] [address] Performed By: #### 2 4323-8 ####[facility] BEACHWOODLIA [id number] [place] [address] [place] Chloride [Moles/Vol] 107 mmol/L Normal 98-107 [facility] Comment on above: Order Comment: Speci men Type: BLOOD SPECIMENOrdering Facility: [facility] Address: [address] [place], [place] [address] Performed By: #### 2 4323-8 ####[facility] HUGOCENTRAL VERMONT MEDICAL CENTERNCLIA [id number] [place] [address] [place] CO2 [Moles/Vol] 25 mmol/L Normal 22-30 [facility] Comment on above: Order Comment: Speci men Type: BLOOD SPECIMENOrdering Facility: [facility] Address: [address] [place] [address] Performed By: #### 2 4323-8 ####[facility] [id number] [place] [address] [place] Creatinine [Mass/Vol] 0.54 mg/dL Low 0.58-0.96 [facility] Comment on above: Order Comment: Speci men Type: BLOOD SPECIMENOrdering Facility: [facility] Address: [address] [place] [address] Performed By: #### 2 4323-8 ####[facility] [id number] [place] [address] [place] eGFRcr SerPlBld CKD-EPI 2020 94 mL/min/1.73m??? Normal >=60 [facility] Comment on above: Order Comment: Speci men Type: BLOOD SPECIMENOrdering Facility: [facility] Address: [address] [place] [address] Result Comment: Mervat mated Glomerular Filtration Rate (eGFR) is calculated using the 2020 CKD-EPI creatinine equation. This equation utilizes serum creatinine, sex, and age as parameters. The creatinine assay has traceable calibration to isotope dilution-mass spectrometry. Refer to KDIGO guidelines for clinical interpretation. In patients with unstable renal function, e.g. those with acute kidney injury, the eGFR may not accurately reflect actual GFR. Performed By: #### 2 4323-8 ####[facility]ITALNCLIA [id number] [place] [address] [place] Glucose [Mass/Vol] 83 mg/dL Normal 74-99 [facility] Comment on above: Order Comment: Speci men Type: BLOOD SPECIMENOrdering Facility: [facility] Address: [address] [place] [address] Result Comment: The [place] Diabetes Association (ADA) provides guidance for cutoff [...] Standards of Medical Care in Diabetes 2016, [place] Diabetes Association. Diabetes Care. 2016.39(Suppl 1). Performed By: #### 2 4323-8 ####[facility]ENTERWTXLIA [id number] [place] [address] [place] Potassium [Moles/Vol] 4.1 mmol/L Normal 3.7-5.1 [facility] Comment on above: Order Comment: Speci men Type: BLOOD SPECIMENOrdering Facility: [facility] Address: [address] [place] [address] Performed By: #### 2 4323-8 ####[facility]ODLIA [id number] [place] [address] [place] Protein [Mass/Vol] 6.7 g/dL Normal 6.3-8.0 [facility] Comment on above: Order Comment: Speci men Type: BLOOD SPECIMENOrdering Facility: [facility] Address: [address] [place] [address] Performed By: #### 2 4323-8 ####[facility]ODLIA [id number] [place] [address] [place] Sodium [Moles/Vol] 140 mmol/L Normal 136-144 [facility] Comment on above: Order Comment: Speci men Type: BLOOD SPECIMENOrdering Facility: [facility] Address: [address] [place] [address] Performed By: #### 2 4323-8 ####[facility]ODLIA [id number] [place] [address] [place] Urea nitrogen [Mass/Vol] 17 mg/dL Normal 7-21 [facility] Comment on above: Order Comment: Favio wright Type: BLOOD SPECIMENOrdering Facility: [facility] Address: [address] [place] [address] Performed By: #### 2 4323-8 ####[facility] [id number] [place] [address] [place] HbA1c (Bld)on 02-21-2025 Average glucose Estimated from glycated hemoglobin (Bld) [Mass/Vol] 148 mg/dL Normal [facility] Comment on above: Order Comment: Favio wright Type: BLOOD SPECIMENOrdering Facility: [facility] Address: [address] [place] [address] Result Comment: eAG: (Estimated average glucose) is a calculated value from HgbA1c and is financial services representative of the average blood glucose level in the last 2-3 month period. Performed By: #### 5 5454-3 ####[facility] LABCLIA [id number] [address] STATES OF [facility] HbA1c (Bld) [Mass fraction] 6.8 % High 4.3-5.6 [facility] Comment on above: Order Comment: Favio wright Type: BLOOD SPECIMENOrdering Facility: [facility] Address: [address] [place] [address] Result Comment: Amer ican Diabetes Association guidelines indicate that patients with HgbA1c in the range 5.7-6.4% are at increased risk for development of diabetes, and intervention by lifestyle modification may be beneficial. HgbA1c greater or equal to 6.5% is considered diagnostic of diabetes. Performed By: #### 5 5454-3 ####[facility] LABCLIA [id number] [address] STATES [place] Lipid 1996 panelon 5 Cholesterol [Mass/Vol] 109 mg/dL Normal <200 [facility] Comment on above: Order Comment: Favio wright Type: BLOOD SPECIMENOrdering Facility: [facility] Address: [address] [place] [address] Result Comment: <200 mg/dL, Desirable 200-239 mg/dL, Borderline high >239 mg/dL, High Performed By: #### 2 4331-1 ####[facility] LABCLIA [id number] [address] [id number] [address] STATES [place] Cholesterol in HDL [Mass/Vol] 44 mg/dL Normal >39 [facility] Comment on above: Order Comment: Speci men Type: BLOOD SPECIMENOrdering Facility: [facility] Address: [address] [place] [address] Result Comment: 40-5 9 mg/dL, Acceptable >59 mg/dL, High: Negative risk factor for coronary heart disease <40 mg/dL, Low: Positive risk factor for coronary heart disease Performed By: #### 2 4331-1 ####[facility] LABCLIA [id number] [address] [id number] [place] [address] [place] Cholesterol in LDL [Mass/Vol] 54 mg/dL Normal <100 [facility] Comment on above: Order Comment: Speci men Type: BLOOD SPECIMENOrdering Facility: [facility] Address: [address] [place] [address] Result Comment: <100 mg/dL, Optimal 100-129 mg/dL, Near optimal/above optimal 130-159 mg/dL, Borderline high 160-189 mg/dL, High >189 mg/dL, Very high Secondary prevention optimal LDL Cholesterol levels are recommended to be <70 mg/dL LDL cholesterol is calculated using the Quiroz-NIH equation. Performed By: #### 2 4331-1 ####[facility] LABCLIA [id number] [address] [id number] [address] STATES [place] Cholesterol in LDL/Cholesterol in HDL [Mass ratio] 1.23 {ratio} Normal <2.54 [facility] Comment on above: Order Comment: Favio wright Type: BLOOD SPECIMENOrdering Facility: [facility] Address: [address] [place] [address] Result Comment: Mahsa parker: 1. National Cholesterol Education Program ATP III Guideline At-A-Glance Quick Desk Reference: National Heart, Lung, and Blood [place]. National Institutes of Health. 2001: NIH Publication No. 01-3305. 2. An International Atherosclerosis Society position paper: global recommendations for the management of dyslipidemia: executive summary, Atherosclerosis. 2014: 232(2):410-413. Performed By: #### 2 4331-1 ####[facility] LABCLIA [id number] [address] [id number] [address] Cholesterol in VLDL [Mass/Vol] 7 mg/dL Normal <30 [facility] Comment on above: Order Comment: Favio wright Type: BLOOD SPECIMENOrdering Facility: [facility] Address: [address] [place] [address] Performed By: #### 2 4331-1 ####[facility] LABCLIA [id number] [address] [id number] [address] STATES OF [facility] Cholesterol non HDL [Mass/Vol] 65 mg/dL Normal <130 [facility] Comment on above: Order Comment: Chantellei men Type: BLOOD SPECIMENOrdering Facility: [facility] Address: [address] [place] [address] Result Comment: <130 mg/dL, Optimal 130-159 mg/dL, Near optimal/above optimal 160-189 mg/dL, Borderline high 190-219 mg/dL, High >219 mg/dL, Very high Secondary prevention optimal non HDL Cholesterol levels are recommended to be <100 mg/dL Performed By: #### 2 4331-1 ####[facility] LABCLIA [id number] [id number] [place] [address] STATES [facility] Cholesterol.total/Choles terol in HDL [Mass ratio] 2.48 {ratio} Normal <5.10 [facility] Comment on above: Order Comment: Speci men Type: BLOOD SPECIMENOrdering Facility: [facility] Address: [address] [place] [address] Performed By: #### 2 4331-1 ####[facility] LABCLIA [id number] [address] [id number] [place] [address] STATES [facility] FASTING TIME 12 hrs Normal [facility] Comment on above: Order Comment: Speci men Type: BLOOD SPECIMENOrdering Facility: [facility] Address: [address] [place], [place] [address] Performed By: #### 2 4331-1 ####[facility] LABCLIA [id number] [id number] [place] [address] Triglyceride [Mass/Vol] 46 mg/dL Normal <150 [facility] Comment on above: Order Comment: Speci men Type: BLOOD SPECIMENOrdering Facility: [facility] Address: [address] [place], [place] [address] Result Comment: <150 mg/dL, Normal 150-199 mg/dL, Borderline high 200-499 mg/dL, High >499 mg/dL, Very high Performed By: #### 2 4331-1 ####[facility] LABCLIA [id number] [place] [id number] [facility] [id number] [place] [id number] [place] JULIETTE SCREENING W TOMOon 02-21 JULIETTE SCREENING W ALETHA * * *Final Report* * * DATE OF EXAM: Feb 21 2025 8:32AM WRW [id number] - JULIETTE SCREENING W ALETHA / PROCEDURE REASON: Encounter for screening mammogram for malignant neoplasm of breast * * * * Physician Interpretation * * * * RESULT: [facility] [address] [place] [address] #[id number] - JULIETTE SCREENING W ALETHA HISTORY: 79 year-old patient presents for screening. Patient is asymptomatic in both breasts. Patient states no personal history of breast cancer. The patient has a family history of breast cancer. COMPARISON STUDIES: The present examination has been compared to prior imaging studies dated 10/02/2020 (mammogram), 04/02/2021 (mammogram), 10/22/2021 (mammogram), 10/27/2022 (mammogram) and 10/29/2023 (mammogram). MAMMOGRAM TECHNIQUE: The study was acquired using full field digital technology and interpreted from soft copy. MAMMOGRAM FINDINGS: There are scattered areas of fibroglandular density. There are post-operative changes in the right breast. No suspicious mass, calcifications, or other abnormality is seen in either breast. IMPRESSION: There is no mammographic evidence of malignancy. Routine screening mammogram is recommended. Annual mammogram will be due in 1 year. BI-RADS Category 2: Benign RISK: Based on the Tyrer-Cuzick (TC) risk assessment model, this patient has a 2.3% lifetime risk of developing breast cancer, meaning they are at average risk for developing breast cancer. However, this is only an estimate based on available history provided on the patient's questionnaire. We encourage all patients to talk with their providers about these results, further recommendations for managing breast health, and appropriate supplemental screening options if the patient has dense breast tissue. Interpreting Radiologist: Pablo Lam M.D. Electronically signed on: 02/22/2025 Sanitation Truck Driver: ARNEL Transcribe Date/Time: Feb 21 2025 8:10A Dictated by: PABLO LAM MD This examination was interpreted and the report reviewed and electronically signed by: PABLO LAM MD on Feb 22 2025 8:54AM EST [id number] [facility] 02-13-2025 [facility] Telephone (INTMWS) ----- KYLIE RUSSO ([id number]) 1945 F Date Time Provider Department 02/13/25 ALCIRA ANDERSON INTMWS During your visit today, we recorded the following information about you: Gabe Юлия 02/13/2025 9:53 AM Signed Patient contacted office stating that she would like to continue receiving mammogram screenings. Next DOS 02/21/25. Order pended. Alcira Anderson MD 02/14/2025 5:19 PM Signed Ordered as requested Regards, Alcira Anderson MD Allergies As of Date: 02/13/2025 Noted Allergy Reaction AMITRIPTYLINE 11/09/2012 14 - [...] 01/21/2021 1 - Mental Status Change PERCOCET (OXYCODONE-ACETAMINOPHEN) 05/29/2010 16 - Unknown SULFA (SULFONAMIDE ANTIBIOTICS) 01/10/2005 4 - Hives Comments: blisters AGGRENOX (ASPIRIN-DIPYRIDAMOLE) 12/18/2008 14 - Other: See Comments Comments: MIGRAINES AND VOMITING CEPHALEXIN (BULK) 05/12/2008 8 - GI Upset DURICEF (CEFADROXIL) 01/10/2005 4 - Hives NORTRIPTYLINE 02/11/2013 14 - Other: See Comments Comments: vertigo Date Reviewed: 01/18/2025 Reviewed by: Hernesto Harvey APRN.CROP AND SOIL TECHNICIAN - Fully Assessed Reason for Visit: Orders [681] Cmt: Mammogram Screening Primary Visit Diagnosis:Encounter for screening mammogram for malignant neoplasm of breast [Z12.31] Other Visit Diagnosis:At high risk for breast cancer [Z91.89] Order(s):JULIETTE SCREENING [[id number]] Order #: [id number] FUTURE Prescriptions as of 02/16/2025 - amLODIPine (NORVASC) 5 mg tablet Take 1 tablet by mouth once daily. - zolpidem (AMBIEN) 10 mg Take 1 tablet by mouth at bedtime as needed (insomnia) for up to 180 days. - atorvastatin (LIPITOR) 40 mg tablet Take 1 tablet by mouth once daily. - nystatin (MYCOSTATIN) 100,000 unit/mL suspension 5 mL four times daily. Swish/swallow or swish/expectorate - pramipexole (MIRAPEX) 1 mg tablet Take 2 tablets by mouth daily at bedtime. - sodium chloride (SALINE MIST) 0.65 % nasal spray Use 1 spray in the nose two times a day. - azelastine 0.1% nasal spray Use 1 spray in each nostril two times a day. - ndhgzasrprk-iiecnpqqn-cui anter (TRELEGY ELLIPTA) 100-62.5-25 mcg inhalation powder Inhale 1 puff as instructed once daily. - insulin glargine (LANTUS SOLOSTAR [...] 1.5 tablets by mouth once daily. - Infusion Set for Insulin Pump (OneTouchEMRTRONIC EXT INFUSION SET 23) iset 1 Each one time a week. - nystatin (MYCOSTATIN) powder Apply 1 application to affected area three times a day. - neomycin 500 mg tablet Take 1 tablet by mouth every 12 hours. - Insulin Syringe-Needle U-100 (BD INSULIN SYRINGE ULTRA-FINE) 1 mL 31 gauge x 09/02 Use 4 syringes daily if insulin pump fails - insulin lispro (HUMALOG U-100 INSULIN) 100 unit/mL injection as directed in Insulin pump up to 110 units daily. Dx E10.65 - diclofenac sodium (VOLTAREN ARTHRITIS PAIN TOPICAL) Apply 2 g to affected area as needed (pain). - WALKER ROLLATOR SEAT WITH 6 WHEELS [...] as needed. Problem List As Of Date 02/13/2025 Noted Resolved Hyperlipidemia [E78.5] Hypertension [I10] Coronary artery disease involving [place]* 09/29/2019 Dizziness and Giddiness [R42] 04/30/2009 Postsurgical Percutaneous Transluminal Coronary* 04/30/2009 Mild intermittent asthma without complication [* 09/29/2019 Other psoriasis [L40.8] 09/29/2019 Disorder of bone and cartilage [M89.9, M94.9] 09/29/2019 ESOPHAGITIS [530.1] Diverticulosis of Colon (without Mention of Hem* 04/30/2009 External Hemorrhoids wit (more content not included)... Normal [facility] Loc 01-24-2025 ROGER Telephone (ENWSTR) ----- KYLIE RUSSO ([id number]) 1945 F Date Time Provider Department 01/24/25 EVA NIELSEN During your visit today, we recorded the following information about you: Magalys Mera RN 01/24/2025 11:37 AM Signed Endocrinology OV note from 12/28/2024 faxed to [facility] for existing DME order. Fax confirmation received. Magalys Mera RN January 24, 2025 11:37 AM Allergies As of Date: 01/24/2025 Noted Allergy Reaction AMITRIPTYLINE 11/09/2012 14 - [...] 01/21/2021 1 - Mental Status Change PERCOCET (OXYCODONE-ACETAMINOPHEN) 05/29/2010 16 - Unknown SULFA (SULFONAMIDE ANTIBIOTICS) 01/10/2005 4 - Hives Comments: blisters AGGRENOX (ASPIRIN-DIPYRIDAMOLE) 12/18/2008 14 - Other: See Comments Comments: MIGRAINES AND VOMITING CEPHALEXIN (BULK) 05/12/2008 8 - GI Upset DURICEF (CEFADROXIL) 01/10/2005 4 - Hives NORTRIPTYLINE 02/11/2013 14 - Other: See Comments Comments: vertigo Date Reviewed: 01/18/2025 Reviewed by: Hernesto Harvey APRN.CROP AND SOIL TECHNICIAN - Fully Assessed Reason for Visit: OV Notes to DME [Other] Prescriptions as of 01/24/2025 - zolpidem (AMBIEN) 10 mg Take 1 tablet by mouth at bedtime as needed (insomnia) for up to 180 days. - atorvastatin (LIPITOR) 40 mg tablet Take 1 tablet by mouth once daily. - nystatin (MYCOSTATIN) 100,000 unit/mL suspension 5 [...] a day. Rinse mouth after use. - tfevkyznhll-rwferulms-auo anter (TRELEGY ELLIPTA) 100-62.5-25 mcg inhalation powder Inhale 1 puff as instructed once daily. - insulin glargine (LANTUS SOLOSTAR [...] affected area three times a day. - neomycin 500 mg tablet Take 1 [...] to affected area as needed (pain). - lidocain-me.salicyl-caps- menth 0.5-20-0.035-5 % ptmd Apply 1 Each to [...] mg chewable tablet Take 1 tablet by (more content not included)... Normal [facility] Abdomen/Pelvis WITH Contrast on 01-17-2025 Abdomen/Pelvis WITH Contrast [facility] Imaging Services [address] [place] [address] Abdomen/Pelvis WITH Contrast MR#: [id number] Acct: [id number] Name: KYLIE RUSSO Rep #: [id number] : 1945 F 79 From: Raphael Zamora MD PCP: Dr. Alcira [place] MD Status: REG CLI Study: Abdomen/Pelvis WITH Contrast Date of Exam: Exam# [id number] Ordering Dr: Karl Dyer DO PROCEDURE: ABDOMEN/PELVIS WITH CONTRAST 01/17/2025 REASON FOR EXAM: L SIDE SOFT TISSUE MASS, POSSBIBLE HERNIA TECHNIQUE: Procedure Code: CTABDPELW Modality: CT Procedure: ABDOMEN/PELVIS WITH CONTRAST Coronal and Sagittal reconstruction series were provided. CONTRAST: Isovue 370 VOLUME: 100 mL One or more dose reduction techniques were used (e.g., Automated exposure control, adjustment of the mA and/or kV according to patient size, use of iterative reconstruction technique. RADIATION DOSE SUMMARY: CTDlvol: 39.02 mGy DLP: 887.48 mGycm COMPARISON: 2019 FINDINGS: Lung bases: Chronic interstitial changes with honeycombing in the periphery of both lung hurt and minimal dependent atelectasis Liver: Normal size. No mass. Gallbladder: Unremarkable Spleen: Normal size. Pancreas: Normal size without evidence of mass surrounding inflammation or ductal dilation. Adrenals: Unremarkable Kidneys: No obstructive uropathy or suspicious solid renal lesion, there are nonobstructing stones in both kidneys. Bladder: Unremarkable Reproductive Organs: Uterus is present, the endometrium can not be accurately evaluated with CT. No suspicious cystic mass or free fluid in the pelvis. Bowel: No CT evidence of obstruction. Retained stool noted throughout the entirety of the colon with a few scattered colonic diverticula but no CT evidence of acute diverticulitis. Appendix: Normal appendix seen on coronal recon images 42 through 46 Lymph nodes: No suspicious mesenteric or retroperitoneal lymphadenopathy Vasculature: Peripheral calcifications in the abdominal aorta without aneurysm Peritoneum / Retroperitoneum: No free fluid or air Bones: Degenerative bony changes No CT evidence of hernia CT/Abdomen/Pelvis WITH Contrast IMPRESSION: No suspicious solid organ abnormality, nonobstructing renal stones Uterus is present, the endometrium can not be accurately evaluated with CT. Retained stool throughout the colon No free intraperitoneal fluid, air, or suspicious adenopathy, normal appendix visualized Reading Location: [id number] CC: Dr. Alcira Anderson MD; Karl Dyer, Sanitation Truck Driver: Signed Normal [facility] CREATININE FINGERSTICKon CREATININE WB < 1.0 Normal 0.55-1.02 [facility] Comment on above: Performed By: #### L 9100.0200 #### [facility] [address] [place] [address]. [place], [address] EGFR WB > 60.0000 Normal >60 [facility] Comment on above: Performed By: #### L 9100.0200 #### [facility] [address] [place], [place], [id number] EGFROrdered By: Karl Avalos nd on 01-17-2025 GFR/1.73 sq M.predicted among non-blacks MDRD (S/P/Bld) [Vol rate/Area] mL/min/{1.73_m2} >60 [facility] Cardiology Visit Reporton Cardiology Visit Report [facility] [address] [place], [place] [address] OFFICE VISIT Date of Service: 01/10/25 MR#: [id number] Acct: [id number] Name: KYLIE RUSSO Rep #: [id number] : 1945 Provider: Dr. Leon Seaman MD Age/Sex: 79/F Location: [facility] Status: Signed HPI HPI History of Present Illness Details: KYLIE RUSSO, is a 79 F who presents to the office today for a cardiovascular follow-up visit. She is a lady with a history of mild coronary artery disease hypertension previous cerebrovascular accident hyperlipidemia obstructive sleep apnea diabetes mellitus. She denies any chest pain or shortness breath or paroxysmal nocturnal dyspnea or pedal edema she has had no neck arm or jaw discomfort suggest angina. She has been compliant with all her medications. Intake Vital Signs 11/16/23 10:29 05/17/24 10:10 01/10/25 09:59 Height 5 ft 2 in 5 ft 2 in 5 ft 2 in Weight: 143 lb BMI 26.2 BP 110/55 L Blood Pressure Location Lt brachial Position Sitting Respiration 16 Pulse 60 Pulse Source Monitor Intake Visit Reasons: 1 Y FU Extract Operator Required: No Is patient in pain?: No Allergies amitriptyline Allergy (Verified 01/10/25 10:04) Other cefadroxil (Cefadroxil) Allergy (Verified 01/10/25 10:04) Hives ephedrine Allergy (Verified 01/10/25 10:04) HEART RACES erythromycin estolate (From Ilosone) Allergy (Verified 01/10/25 10:04) Angioedema, HEART RACING iodine Allergy (Verified 01/10/25 10:04) Hives, ITCHING levofloxacin Allergy (Verified 01/10/25 10:04) Unknown nortriptyline (Nortriptyline) Allergy (Verified 01/10/25 10:04) Unknown oxycodone (Oxycodone) Allergy (Verified 01/10/25 10:04) CONFUSION oxycodone HCl (From Percocet) Allergy (Verified 01/10/25 10:04) CONFUSION Sulfa (Sulfonamide Antibiotics) Allergy (Verified 01/10/25 10:04) Rash pregabalin (From Lyrica) Adverse Reaction (Severe, Verified 01/10/25 10:04) Vomiting hydrochlorothiazide Adverse Reaction (Intermediate, Verified 01/10/25 10:04) Hypotension acetaminophen (From Percocet) Adverse Reaction (Verified 01/10/25 10:04) Other aspirin (From Aggrenox) Adverse Reaction (Verified 01/10/25 10:04) Vomiting cephalexin Adverse Reaction (Verified 01/10/25 10:04) Nausea/Vom/Diarrhea doxycycline Adverse Reaction (Verified 01/10/25 10:04) Nausea/Vom/Diarrhea duloxetine HCl (From Cymbalta) Adverse Reaction (Verified 01/10/25 10:04) HEADACHE, STOMACH ACHE Medications ???Medication ???Instructions ???Recorded ???Confirmed ???Type atorvastatin 40 mg tablet 40 mg PO QHS cholesterol 06/27/15 01/10/25 History clopidogrel 75 mg tablet 75 mg PO DAILY anti platelet 06/2601/10/25 History albuterol sulfate 2.5 mg/3 mL 2.5 mg inhalation Q6H PRN 03/30/17 01/10/25 History (0.083 %) solution for nebulization Bronchodialation diclofenac sodium 1 % topical gel 2 g topical BID PRN 03/30/1712/20 History (Voltaren) Pain/Inflammation multivitamin 1 tab PO QAM vitamin 03/30/1712/20 History amlodipine 5 mg tablet 5 mg PO DAILY #90 tabs 09/22/18 Rx lactobacillus combination no.9 4 4,000 mmu cells PO DAILY supplemen t 10/14/18 01/10/25 History billion cell capsule (Adult 50 Plus Probiotic) biotin 1 mg capsule 1 mg PO DAILY 10/14/19 01/10/25 Hi story aspirin 81 mg tablet,delayed 81 mg PO DAILY 07/05/21 01/10/25 H istory release (Adult Low Dose Aspirin) lancets (Accu-Chek Fastclix Lancet #200 ea 11/04/21 08/30/24 Rx Drum) cholecalciferol (vitamin D3) 125 125 mcg PO DAILY 05/28/22 01/10/25 History mcg (5,000 unit) tablet Humalog U-100 Insulin 100 unit/mL 100 unit subcut QDAY #90 mL 03/1601/10/25 Rx subcutaneous solution (insulin lispro) albuterol sulfate 90 mcg/actuation 1 inh inhalation Q4H PRN shortne ss 04/06/23 01/10/25 History aerosol inhaler of breath or wheezing clonazepam 1 mg tablet 1 mg PO QHS 11/16/23 01/10/25 Hist ory nitroglycerin 0.4 mg sublingual 0.4 mg sublingual Q5-15M PRN chest 11/26/23 01/10/25 Rx tablet (Nitrostat) pain #25 tabs zolpidem 10 mg tablet (Ambien) 10 mg PO QHS 01/18/24 01/10/25 His tory losartan 100 mg tablet See Rx Instructions .Route 5 01/10/25 Rx .COMPLEX #90 tabs NaCl 0.9% 1,000 ml IV BOLUS ONCE #1,000 mL 0 01/03/25 Rx diphenhydramine HCl 25 mg capsule 25 mg PO ONCE #1 cap 01/03/25 Rx (Benadryl) famotidine 40 mg tablet 40 mg PO ONCE #1 TAB 01/03/2512/20 Rx prednisone 20 mg tablet 40 mg (2 x 20 mg) PO ONCE #2 tabs 01/03/25 01/10/25 Rx fluticasone fur. 200 mcg-umeclid 1 ea inhalation QDAY 01/10/2512/20 History 62.5 mcg-vilant 25 mcg inhalat.powder (Trelegy Ellipta) hydroxychloroquine 200 mg tablet 300 mg PO QDAY 01/10/25 01/10/25 H istory p (more content not included)... Normal [facility] 01-02-2025 [facility] Telephone (ENDWST) ----- KYLIE RUSSO ([id number]) 1945 F Date Time Provider Department 01/02/25 EVA NIELSEN During your visit today, we recorded the following information about you: Manuela Mejia LPN 01/02/2025 11:53 AM Signed Received call from [facility] requesting office visit. Faxed. 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 Rinse mouth after use. - mxhqxhoixik-nnnmcupwl-gfw anter (TRELEGY ELLIPTA) 100-62.5-25 mcg inhalation powder Inhale [...] day. - Infusion Set for Insulin Pump (OneTouchEMRTRONIC EXT INFUSION SET 23) iset 1 Each [...] to affected area as needed (pain). - lidocain-me.salicyl-caps- menth 0.5-20-0.035-5 % ptmd Apply 1 Each to [...] tablet by mouth once daily. - Cholecalciferol, Vitam (more content not included)... Normal [facility] US CAROTID ARTERIES OMAR VAS LABon 12-12-2024 US CAROTID ARTERIES [facility] LAB Non-Invasive Vascular Laboratory [facility] Carotid Duplex Bilateral/Complete Date of service/time: 12/12/2024 8:59:15 AM Name: MRS. KYLIE RUSSO Date of : 1945 Age: 79 [...] interpretation criteria are used as recommended by [facility]. When compared with the prior [...] Technologist: Philly Martin RVT Ordering physician: MANUELA THOMAS Interpreting physician: Justo Richardson MD, YVETTE Final CC [employer] [facility] Image : [id number] See Link below for Image Normal [facility] CNOVon 11-29-2024 CNOV Office Visit (INTMWS ) ----- KYLIE RUSSO ([id number]) 1945 F Date Time Provider Department 11/29/24 11:00 AM ALCIRA ANDERSON During your visit today, we recorded the following information about you: Pulse Respiration Blood pressure Weight 57/minute 16/minute 153/64 66.5 kg Alcira Anderson MD 11/29/2024 5:39 PM Signed Reason for Visit Follow up chronic conditions HPI Bridger Russo is a 79-year-old female with a history of osteoarthritis, T2DM, and pulmonary issues, presenting for follow-up. Bridger has been following up with rheumatology and reports recent x-rays of her hands showing osteoarthritis, with no evidence of inflammatory arthritis. She also has been following up with endocrinology and a diabetic nurse for issues with her insulin pump and CGM. She reports a recent incident where her Medtronic pump malfunctioned, and she was unable to reach [employer] customer service for assistance. She eventually resolved the issue herself. Her most recent HbA1c is 6.7%. She denies any issues with her blood pressure at home, attributing any elevations to stress related to her 's upcoming surgery. Bridger reports difficulty with ambulation, using a chair [...] confirmed. She denies any changes in taste. Bridger has a history of fatty liver and [...] mg tablet Infusion Set for Insulin Pump (OneTouchEMRTRONIC EXT INFUSION SET 23) iset amLODIPine (NORVASC) [...] spray fluticasone (FLONASE) 50 mcg/actuation nasal spray ofbzbnzfelq-enooyokrc-jlp anter (TRELEGY ELLIPTA) 100-62.5-25 mcg inhalation powder famotidine (PEPCID) 20 mg tablet guaiFENesin (MUCINEX) 600 mg 12 hr tablet neomycin 500 mg tablet metoclopramide HCl (REGLAN) 5 mg tablet blood sugar diagnostic (ACCU-CHEK GUIDE TEST STRIPS) test strip diclofenac sodium (VOLTAREN ARTHRITIS PAIN TOPICAL) lidocain-me.salicyl-caps- menth 0.5-20-0.035-5 % ptmd traMADol (ULTRAM) 50 mg [...] good dentition. No oral lesions noted. NECK: Suppl (more content not included)... Normal [facility] CBC W Auto Differential pane l (Bld)on 11-25-2024 Basophils (Bld) [#/Vol] 0.03 10*3/uL Normal <0.11 [facility] Comment on above: Order Comment: Speci men Type: BLOOD SPECIMENOrdering Facility: [facility] Address: [address] [place] [address] Performed By: #### 5 7021-8 ####[facility]CL[facility] [id number] [place] [address] [place] Basophils/100 WBC (Bld) 0.5 % Normal [facility] Comment on above: Order Comment: Speci men Type: BLOOD SPECIMENOrdering Facility: [facility] Address: [address] [place] [address] Performed By: #### 5 7021-8 ####[facility]CL[facility] [id number] [place] [address] [place] Differential cell count method Nom (Bld) Auto Normal [facility] Comment on above: Order Comment: Speci men Type: BLOOD SPECIMENOrdering Facility: [facility] Address: [address] [place] [address] Performed By: #### 5 7021-8 ####[facility] [id number] [place] [address] [place] Eosinophils (Bld) [#/Vol] 0.15 10*3/uL Normal <0.46 [facility] Comment on above: Order Comment: Speci men Type: BLOOD SPECIMENOrdering Facility: [facility] Address: [address] [place] [address] Performed By: #### 5 7021-8 ####[facility] [id number] [place] [address] [place] Eosinophils/100 WBC (Bld) 2.6 % Normal [facility] Comment on above: Order Comment: Speci men Type: BLOOD SPECIMENOrdering Facility: [facility] Address: [address] [place] [address] Performed By: #### 5 7021-8 ####[facility] LABIA [id number] [place] [address] [place] Erythrocyte distribution width (RBC) [Ratio] 13.2 % Normal 11.5-15.0 [facility] Comment on above: Order Comment: Speci men Type: BLOOD SPECIMENOrdering Facility: [facility] Address: [address] [place] [address] Performed By: #### 5 7021-8 ####[facility] [id number] [place] [address] [place] Hematocrit (Bld) [Volume fraction] 35.3 % Low 36.0-46.0 [facility] Comment on above: Order Comment: Speci men Type: BLOOD SPECIMENOrdering Facility: [facility] Address: [address] [place] [address] Performed By: #### 5 7021-8 ####[facility]CL[facility] [id number] [place] [id number] [place] Hemoglobin (Bld) [Mass/Vol] 12.1 g/dL Normal 11.5-15.5 [facility] Comment on above: Order Comment: Speci men Type: BLOOD SPECIMENOrdering Facility: [facility] Address: [address] [place] [address] Performed By: #### 5 7021-8 ####[facility] [id number] [address] [address] [place] Immature granulocytes (Bld) [#/Vol] 10*3/uL Normal <0.10 [facility] Comment on above: Order Comment: Speci men Type: BLOOD SPECIMENOrdering Facility: [facility] Address: [address] [place] [address] Performed By: #### 5 7021-8 ####[facility] [id number] [place] [address] [place] Immature granulocytes/100 WBC (Bld) 0.2 % Normal [facility] Comment on above: Order Comment: Speci men Type: BLOOD SPECIMENOrdering Facility: [facility] Address: [address] [place] [address] Performed By: #### 5 7021-8 ####[facility] [id number] [place] [address] [place] Lymphocytes (Bld) [#/Vol] 1.70 10*3/uL Normal 1.00-4.00 [facility] Comment on above: Order Comment: Speci men Type: BLOOD SPECIMENOrdering Facility: [facility] Address: [address] [place] [address] Performed By: #### 5 7021-8 ####[facility] [id number] [place] [id number] [place] Lymphocytes/100 WBC (Bld) 29.4 % Normal [facility] Comment on above: Order Comment: Speci men Type: BLOOD SPECIMENOrdering Facility: [facility] Address: [address] [place] [address] Performed By: #### 5 7021-8 ####[facility] [id number] [place] [address] [place] MCH (RBC) [Entitic mass] 33.4 pg Normal 26.0-34.0 [facility] Comment on above: Order Comment: Speci men Type: BLOOD SPECIMENOrdering Facility: [facility] Address: [address] [place] [address] Performed By: #### 5 7021-8 ####[facility] LABIA [id number] [place] [address] [place] MCHC (RBC) [Mass/Vol] 34.3 g/dL Normal 30.5-36.0 [facility] Comment on above: Order Comment: Speci men Type: BLOOD SPECIMENOrdering Facility: [facility] Address: [address] [place] [address] Performed By: #### 5 7021-8 ####[facility] LABIA [id number] [place] [address] [place] MCV (RBC) [Entitic vol] 97.5 fL Normal 80.0-100.0 [facility] Comment on above: Order Comment: Speci men Type: BLOOD SPECIMENOrdering Facility: [facility] Address: [address] [place] [address] Performed By: #### 5 7021-8 ####[facility] [id number] [place] [address] [place] Monocytes (Bld) [#/Vol] 0.72 10*3/uL Normal <0.87 [facility] Comment on above: Order Comment: Speci men Type: BLOOD SPECIMENOrdering Facility: [facility] Address: [address] [place] [address] Performed By: #### 5 7021-8 ####[facility] LABIA [id number] [place] [address] [place] Monocytes/100 WBC (Bld) 12.4 % Normal [facility] Comment on above: Order Comment: Speci men Type: BLOOD SPECIMENOrdering Facility: [facility] Address: [address] [place] [address] Performed By: #### 5 7021-8 ####[facility]CL[facility] [id number] [place] [address] [place] Neutrophils (Bld) [#/Vol] 3.18 10*3/uL Normal 1.45-7.50 [facility] Comment on above: Order Comment: Speci men Type: BLOOD SPECIMENOrdering Facility: [facility] Address: [address] [place] [address] Performed By: #### 5 7021-8 ####[facility]CL[facility] [id number] [place] [address] [place] Neutrophils/100 WBC (Bld) 54.9 % Normal [facility] Comment on above: Order Comment: Speci men Type: BLOOD SPECIMENOrdering Facility: [facility] Address: [address] [place] [address] Performed By: #### 5 7021-8 ####[facility] [id number] [place] [address] [place] Nucleated RBC (Bld) [#/Vol] 10*3/uL Normal <0.01 [facility] Comment on above: Order Comment: Speci men Type: BLOOD SPECIMENOrdering Facility: [facility] Address: [address] [place] [address] Performed By: #### 5 7021-8 ####[facility] [id number] [place] [address] [place] Nucleated RBC/100 WBC (Bld) [Ratio] 0.0 /100 WBC Normal [facility] Comment on above: Order Comment: Speci men Type: BLOOD SPECIMENOrdering Facility: [facility] Address: [address] [place] [address] Performed By: #### 5 7021-8 ####[facility] [id number] [address] [place] [address] [place] Platelet mean volume (Bld) [Entitic vol] 11.8 fL Normal 9.0-12.7 [facility] Comment on above: Order Comment: Speci men Type: BLOOD SPECIMENOrdering Facility: [facility] Address: [address] [place] [address] Performed By: #### 5 7021-8 ####[facility] [id number] [address] [place] [address] [place] Platelets (Bld) [#/Vol] 217 10*3/uL Normal 150-400 [facility] Comment on above: Order Comment: Speci men Type: BLOOD SPECIMENOrdering Facility: [facility] Address: [address] [place] [address] Performed By: #### 5 7021-8 ####[facility] LABIA [id number] [address] [place] [address] [place] RBC (Bld) [#/Vol] 3.62 10*6/uL Low 3.90-5.20 [facility] Comment on above: Order Comment: Speci men Type: BLOOD SPECIMENOrdering Facility: [facility] Address: [address] [place] [address] Performed By: #### 5 7021-8 ####[facility] [id number] [address] [place] [address] [place] WBC (Bld) [#/Vol] 5.79 10*3/uL Normal 3.70-11.00 [facility] Comment on above: Order Comment: Speci men Type: BLOOD SPECIMENOrdering Facility: [facility] Address: [address] [place] [address] Performed By: #### 5 7021-8 ####[facility] LABIA [id number] [address] [place] [address] [facility] KYLIE RUS[facility] ([id number]) 1945 F Date Time Provider Department 11/14/24 EVA NIELSEN ENDWST During your visit today, we recorded the following information about you: Manuela Mejia LPN 11/14/2024 10:08 AM Signed Patient calling in stating her sensor is saying sensor failure. She is not sure what to do. She did try to call [email or web address] but there were 4 people ahead of [...] 01/21/2021 1 - Mental Status Change PERCOCET (OXYCODONE-ACETAMINOPHEN) 05/29/2010 16 - Unknown SULFA (SULFONAMIDE ANTIBIOTICS) 01/10/2005 4 - Hives Comments: blisters AGGRENOX (ASPIRIN-DIPYRIDAMOLE) 12/18/2008 14 - Other: See Comments Comments: MIGRAINES AND VOMITING CEPHALEXIN (BULK) 05/12/2008 8 - GI Upset DURICEF (CEFADROXIL) 01/10/2005 4 - Hives NORTRIPTYLINE 02/11/2013 14 - Other: See Comments Comments: vertigo Date Reviewed: 11/06/2024 Reviewed by: Jonas Red APRN.CROP AND SOIL TECHNICIAN - Fully Assessed Prescriptions as of 11/14/2024 [...] a day. Rinse mouth after use. - ktctgmtnmwi-ucattzces-vzo anter (TRELEGY ELLIPTA) 100-62.5-25 mcg inhalation powder Inhale [...] to affected area as needed (pain). - lidocain-me.salicyl-caps- menth 0.5-20-0.035-5 % ptmd Apply 1 Each to affected area as needed. - traMADol (ULTRAM) 50 mg tablet Take 50 mg by mouth every 6 hours as needed for pain. - albuterol HFA (PROVENTIL HFA, VENTOLIN HFA) 90 mcg/actuation inhaler Inhale 2 Puffs as instructed every 4 hours as needed for wheezing/shortness of breath. - WALKER ROLLATOR SEAT WITH 6 WHEELS - RED For ambul (more content not included)... Normal [facility] XR HAND 3V PA/LAT/OBL BILon 11-10-2024 XR HAND 3V PA/LAT/OBL OMAR * * *Final Report* * * DATE [...] IMPRESSION: No radiographic findings of inflammatory arthropathy. Sanitation Truck Driver: PSCB Transcribe Date/Time: Nov 15 2024 5:08P Dictated by : OMAYRA REDDY MD This examination was interpreted and the report reviewed and electronically signed by: OMAYAR REDDY MD on Nov 15 2024 5:09PM EST [id number] Normal [facility] CNOVon 11-06-2024 CNOV Office Visit (WOUCA) ----- KYLIE RUSSO ([id number]) 1945 F Date Time Provider Department 11/06/24 10:30 AM JONAS RED During your visit today, we recorded the following information about you: Temperature Pulse Respiration Blood pressure 97.2 degrees 66/minute 20/minute 128/74 Weight 66 kg Jonas Red APRN.CROP AND SOIL TECHNICIAN 11/06/2024 10:55 AM Signed Subjective HPI Nontoxic-appearing [...] TUNNEL BILATERRAL 08/08/2005 Coronary artery disease involving confederated salish coronary artery Dr. Pederson follows regularly; S/P PTCA and stenting at [facility], 2000 Coronary atherosclerosis of unspecified type of vessel, confederated sal[place] or graft Disorder of bone and cartilage, unspecified Diverticulosis of colon (without mention of hemorrhage) DKA (diabetic ketoacidoses) 09/28/2019 Esophagitis External hemorrhoids without mention of complication Insomnia Internal hemorrhoids without mention of complication Mammographic microcalcification Mild intermittent asthma without complication (HCC) Adult onset Mild nonproliferative diabetic retinopathy of both eyes ([facility]) 12/06/2018 Other and unspecified hyperlipidemia Other forms [...] SPEC WHEN PFRMD 11/10/2018 Colonoscopy EGD 04/15/2002 ESOPHAGOGASTRODUODENOSCOP Y TRANSORAL DIAGNOSTIC 11/10/2018 EGD EXC BREAST LES [...] Forte, Levaquin [Levofloxacin], Lyrica [Pregabalin], Oxycodone, Percocet [Oxycodone-Acetaminophen] , Sulfa (Sulfonamide Antibiotics), Aggrenox [Aspirin-Dipyridamole], Cephalexin (Bulk), Duricef [Cefadroxil], and Nortriptyline MEDICATIONS esomeprazole (NEXIUM) 40 mg capsule Take 40 mg by mouth daily before breakfast. sodium chloride (SALINE MIST) 0.65 % nasal spray Use 1 spray in the nose two times a day. dtoimfevsyd-nlqetoomo-qtq anter (TRELEGY ELLIPTA) 100-62.5-25 mcg inhalation powder Inhale [...] once daily. Infusion Set for Insulin Pump (MEDTRONIC EXT INFUSION SET 23) iset 1 Each one time a week. amLODIPine (NORVASC) 5 mg tablet Take 1 tablet by mouth once daily. nystatin (MYCOSTATIN) powder Apply 1 application to affected area three times a day. atorvastatin (LIPITOR) 40 mg tablet Take 1 tablet by mouth once daily. Insulin Syringe-Needle U-100 (BD INSULIN SYRINGE ULT (more content not included)... Normal [facility] Loc 11-03-2024 [facility] Telephone (AGVASACC) ----- KYLIE RUSSO ([id number]) 1945 F Date Time Provider Department 11/03/24 MANUELA THOMAS AGVASACC During your visit today, we recorded the following information about you: Flori Rodriguez 11/03/2024 10:01 AM Signed 1 yr f/u for Carotid stenosis, asymptomatic, bilateral (US prior) Spoke with pt regarding US and f/u appt Pt scheduling US at [facility]. Pt stated Manuela told her she may [...] 01/21/2021 1 - Mental Status Change PERCOCET (OXYCODONE-ACETAMINOPHEN) 05/29/2010 16 - Unknown SULFA (SULFONAMIDE ANTIBIOTICS) 01/10/2005 4 - Hives Comments: blisters AGGRENOX (ASPIRIN-DIPYRIDAMOLE) 12/18/2008 14 - Other: See Comments Comments: MIGRAINES AND VOMITING CEPHALEXIN (BULK) 05/12/2008 8 - GI Upset DURICEF (CEFADROXIL) 01/10/2005 4 - Hives NORTRIPTYLINE 02/11/2013 14 - Other: See Comments Comments: vertigo Date Reviewed: 10/26/2024 Reviewed by: Alberto Argueta APRN.CROP AND SOIL TECHNICIAN - Fully Assessed Reason for Visit: Appointment [...] a day. Rinse mouth after use. - rpughpvtsae-nwedotcpk-gzf anter (TRELEGY ELLIPTA) 100-62.5-25 mcg inhalation powder Inhale [...] to affected area as needed (pain). - lidocain-me.salicyl-caps- menth 0.5-20-0.035-5 % ptmd Apply 1 Each to [...] tablet by mouth once daily. - Cholecalciferol, Vitam (more content not included)... Normal [facility] 10-26-2024 [facility] Telephone (RHEJUANY) ----- KYLIE RUSSO ([id number]) 1945 F Date Time Provider Department 10/26/24 ALBERTO ARGUETA During your visit today, we recorded the following information about you: Alberto Argueta APRN.CROP AND SOIL TECHNICIAN 10/26/2024 9:37 AM Signed The patient did not log in for her virtual appointment scheduled with dc at 930. I left a message reminded her of the appointment. Alberto Argueta APRN.CROP AND SOIL TECHNICIAN Allergies As of Date: 10/26/2024 Noted Allergy [...] 01/21/2021 1 - Mental Status Change PERCOCET (OXYCODONE-ACETAMINOPHEN) 05/29/2010 16 - Unknown SULFA (SULFONAMIDE ANTIBIOTICS) 01/10/2005 [...] a day. Rinse mouth after use. - kruaiqevezv-mxejawgqq-sfx anter (TRELEGY ELLIPTA) 100-62.5-25 mcg inhalation powder Inhale [...] day. - Infusion Set for Insulin Pump (OneTouchEMRTRONIC EXT INFUSION SET 23) iset 1 Each [...] to affected area as needed (pain). - lidocain-me.salicyl-caps- menth 0.5-20-0.035-5 % ptmd Apply 1 Each to [...] 1 capsule by mouth once daily. - Bioti (more content not included)... Normal [facility] KYLIE RUSSO ([id number]) 1945 F Date Time Provider Department 09/23/24 [...] Please review and advise. ELA Camilo Brittney, KING 09/23/2024 9:25 AM Signed Virtual visit with aH Bess, diabetic nurse educator, 09/22/2024. Magalys Mera RN 09/23/2024 9:29 AM Signed Email sent to ADS rep, Julio Cesar Kenny, to inquire about the transition from [employer] [...] 01/21/2021 1 - Mental Status Change PERCOCET (OXYCODONE-ACETAMINOPHEN) 05/29/2010 16 - Unknown SULFA (SULFONAMIDE ANTIBIOTICS) 01/10/2005 4 - Hives Comments: blisters AGGRENOX (ASPIRIN-DIPYRIDAMOLE) 12/18/2008 14 - Other: See Comments Comments: MIGRAINES AND VOMITING CEPHALEXIN (BULK) 05/12/2008 8 - GI Upset DURICEF (CEFADROXIL) 01/10/2005 4 - Hives NORTRIPTYLINE 02/11/2013 14 - Other: See Comments Comments: vertigo Date Reviewed: 09/20/2024 Reviewed by: Moriah Burks OCCA - Fully Assessed Reason for Visit: Patient Question [1477] Prescriptions as of 10/05/2024 - omeprazole (PRILOSEC) [...] a day. Rinse mouth after use. - txcwwwysraq-itifvlcpu-ixn anter (TRELEGY ELLIPTA) 100-62.5-25 mcg inhalation powder Inhale [...] upto four times daily - insulin lispro (more content not included)... Normal [facility] CNPNon 09-22-2024 CNPN Telephone (INTMWS) ----- KYLIE RUSSO ([id number]) 1945 F Date Time Provider Department 09/22/24 ALCIRA ANDERSON INTMWS During your visit today, we recorded the following information about you: Nara Argueta RN 09/22/2024 11:11 AM Signed Patient calls and wanted provider to know that she got PFTs done at [facility] on 09/06/2024. Results are scanned into system. Nara Argueta RN Allergies As of Date: 09/22/2024 Noted [...] 01/21/2021 1 - Mental Status Change PERCOCET (OXYCODONE-ACETAMINOPHEN) 05/29/2010 16 - Unknown SULFA (SULFONAMIDE ANTIBIOTICS) 01/10/2005 [...] a day. Rinse mouth after use. - qllccxbrkmf-dpxibosrr-gkm anter (TRELEGY ELLIPTA) 100-62.5-25 mcg inhalation powder Inhale [...] to affected area as needed (pain). - lidocain-me.salicyl-caps- menth 0.5-20-0.035-5 % ptmd Apply 1 Each to [...] mouth once daily. - Biotin 1 mg t (more content not included)... Normal [facility] Loc 09-21-2024 [facility] Telephone (ENWSTR) ----- RUSSOKYLIE OCASIO ([id number]) 1945 F Date Time Provider Department 09/21/24 EVA NIELSEN During your visit today, we [...] 01/21/2021 1 - Mental Status Change PERCOCET (OXYCODONE-ACETAMINOPHEN) 05/29/2010 16 - Unknown SULFA (SULFONAMIDE ANTIBIOTICS) 01/10/2005 [...] a day. Rinse mouth after use. - bvvmghiyqso-wvcovwhoh-him anter (TRELEGY ELLIPTA) 100-62.5-25 mcg inhalation powder Inhale [...] to affected area as needed (pain). - lidocain-me.salicyl-caps- menth 0.5-20-0.035-5 % ptmd Apply 1 Each to [...] unit) cap Take 1 capsule by mouth on (more content not included)... Normal [facility] CNOVon 09-20-2024 CNOV Office Visit (ENWSTR ) ----- KYLIE RUSSO ([id number]) 1945 F Date Time Provider Department 09/20/24 2:40 PM EVA NIELSENWSTR During your visit today, we recorded the [...] diabetic. She was following Dr. Palm at [facility] in the recent past, last appointment in April 2023. Prior to that, she was following with endocrinology at [facility], last appointment in October 2020 with Princess Lim APRN. CROP AND SOIL TECHNICIAN Established care with me in 05/2023 LV [...] gastric emptying study following Dr. Dyer at [facility] Exacerbating factors include: obesity Last NEIL/Retina Eval: [...] need for multiple calibrations She has contacted [employer] multiple times due to all these issues, [...] diet She has seen Nutrition services at [facility], and reports that it was not very beneficial, she saw dietitian at [facility] who started her on a gastroparesis nutritional plan She has seen endocrine dietitian and diabetic education few times now ROS: As per HPI Past Medical History PAST MEDICAL HISTORY Diagnosis Date Abnormal mammogram, unspecified left breast BPPV (benign paroxysmal positional vertigo) 02/11/2015 BPV (benign positional vertigo) CAD (coronary artery disease) Carotid stenosis CARPAL TUNNEL BILATERRAL 08/08/2005 Coronary artery disease involving confederated salish coronary artery Dr. Pederson follows regularly; S/P PTCA and stenting at [facility], 2001 Coronary atherosclerosis of unspecified type of vessel, confederated sal[place] or graft Disorder of bone and cartilage, unspecified Diverticulosis of colon (without mention of hemorrhage) DKA (diabetic ketoacidoses) 09/28/2019 Esophagitis External hemorrhoids without mention of complication Insom (more content not included)... Normal [facility] ALBUMIN/CREATININE RATIO, UR INEon 09-16-2024 Albumin DL <= 20 mg/L (U) [Mass/Vol] 46.3 mg/L Normal [facility] Comment on above: Order Comment: Speci men Type: URINE SPECIMENOrdering Facility: [facility] Address: [address] [place] [address] Performed By: #### U ACR ####[facility] [id number] [place] [address] [place] Albumin/Creatinine (U) [Mass ratio] 80 mg/g High <30 [facility] Comment on above: Order Comment: Speci men Type: URINE SPECIMENOrdering Facility: [facility] Address: [address] [place] [address] Result Comment: Adul t Male and Female Nephrotic Criteria: <30 mg/g is considered normal to mildly increased 30-300 mg/g is considered moderately increased >300 mg/g is considered severely increased KDIGO. (2013). KDIGO 2012 Clinical Practice Guideline for the Evaluation and Management of Chronic Kidney Disease. Official Journal of the International Society of Nephrology, 3(1), 1-150. Performed By: #### U ACR ####[facility] [id number] [place] [address] [place] Creatinine (U) [Mass/Vol] 58.1 mg/dL Normal 20.0-300.0 [facility] Comment on above: Order Comment: Speci men Type: URINE SPECIMENOrdering Facility: [facility] Address: [address] [id number] Performed By: #### U ACR ####[facility] [id number] [address] [address] [place] Comprehensive metabolic 2000 panelon 09-16-2024 Albumin [Mass/Vol] 3.5 g/dL Low 3.9-4.9 [facility] Comment on above: Order Comment: Speci men Type: BLOOD SPECIMENOrdering Facility: [facility] Address: [address] [place] [address] Performed By: #### 2 4323-8, 69651-4, 3016-3 ####[facility] [id number] [place] [address] [place] ALP [Catalytic activity/Vol] 175 U/L High 34-123 [facility] Comment on above: Order Comment: Speci men Type: BLOOD SPECIMENOrdering Facility: [facility] Address: [address] [place] [address] Performed By: #### 2 4323-8, 53438-2, 3016-3 ####[facility] [id number] [place] [address] [place] ALT [Catalytic activity/Vol] 44 U/L High 7-38 [facility] Comment on above: Order Comment: Speci men Type: BLOOD SPECIMENOrdering Facility: [facility] Address: [address] [place] [address] Performed By: #### 2 4323-8, 05038-7, 3016-3 ####[facility] [id number] [place] [id number] [place] Anion gap [Moles/Vol] 13 mmol/L Normal 8-15 [facility] Comment on above: Order Comment: Speci men Type: BLOOD SPECIMENOrdering Facility: [facility] Address: [address] [place] [address] Performed By: #### 2 4323-8, 12356-6, 3016-3 ####[facility] [id number] [facility] [address] [address] [place] AST [Catalytic activity/Vol] 37 U/L High 13-35 [facility] Comment on above: Order Comment: Speci men Type: BLOOD SPECIMENOrdering Facility: [facility] Address: [address] [place] [address] Performed By: #### 2 4323-8, 58407-2, 3 ####[facility] [id number] [address] [address] [place] Bilirubin [Mass/Vol] 0.6 mg/dL Normal 0.2-1.3 [facility] Comment on above: Order Comment: Speci men Type: BLOOD SPECIMENOrdering Facility: [facility] Address: [address] [place], [place] [address] Performed By: #### 2 4323-8, 22567-2, 3 ####[facility] [id number] [place] [id number] [place] Calcium [Mass/Vol] 9.4 mg/dL Normal 8.5-10.2 [facility] Comment on above: Order Comment: Speci men Type: BLOOD SPECIMENOrdering Facility: [facility] Address: [address] [place] [address] Performed By: #### 2 4323-8, 96104-0, 3 ####[facility] [id number] [place] [id number] [place] Chloride [Moles/Vol] 103 mmol/L Normal 98-107 [facility] Comment on above: Order Comment: Speci men Type: BLOOD SPECIMENOrdering Facility: [facility] Address: [address] [place] [address] Performed By: #### 2 4323-8, 28733-8, 3 ####[facility] [id number] [facility] [address] [address] [place] CO2 [Moles/Vol] 23 mmol/L Normal 22-30 [facility] Comment on above: Order Comment: Speci men Type: BLOOD SPECIMENOrdering Facility: [facility] Address: [address] [place] [address] Performed By: #### 2 4323-8, 81654-4, 6-3 ####[facility] [id number] [address] [address] [place] Creatinine [Mass/Vol] 0.59 mg/dL Normal 0.58-0.96 [facility] Comment on above: Order Comment: Speci men Type: BLOOD SPECIMENOrdering Facility: [facility] Address: [address] [place], [place] [address] Performed By: #### 2 4323-8, 74229-2, 3 ####[facility]IA [id number] [address] [address] [place] Creatinine and Glomerular filtration rate.predicted panel (S/P/Bld) 92 mL/min/1.73m??? Normal >=60 [facility] Comment on above: Order Comment: Chantellenuvia wright Type: BLOOD SPECIMENOrdering Facility: [facility] Address: [address] [place] [address] Result Comment: Mervat mated Glomerular Filtration Rate (eGFR) is calculated using the 2020 CKD-EPI creatinine equation. This equation utilizes serum creatinine, sex, and age as parameters. The creatinine assay has traceable calibration to isotope dilution-mass spectrometry. Refer to KDIGO guidelines for clinical interpretation. In patients with unstable renal function, e.g. those with acute kidney injury, the eGFR may not accurately reflect actual GFR. Performed By: #### 2 4323-8, 03443-1, 3015-3 ####[facility] LABIA [id number] [address] [address] [place] Glucose [Mass/Vol] 345 mg/dL High 74-99 [facility] Comment on above: Order Comment: Favio wright Type: BLOOD SPECIMENOrdering Facility: [facility] Address: [address] [id number] Result Comment: The [place] Diabetes Association (ADA) provides guidance for cutoff [...] Standards of Medical Care in Diabetes 2016, [place] Diabetes Association. Diabetes Care. 2016.39(Suppl 1). Performed By: #### 2 4323-8, 07689-5, 6-3 ####[facility]IA [id number] [place] [address] [place] Potassium [Moles/Vol] 4.6 mmol/L Normal 3.7-5.1 [facility] Comment on above: Order Comment: Speci men Type: BLOOD SPECIMENOrdering Facility: [facility] Address: [address] [place] [address] Performed By: #### 2 4323-8, 04630-3, 3015-3 ####[facility] [id number] [place] [address] [place] Protein [Mass/Vol] 7.0 g/dL Normal 6.3-8.0 [facility] Comment on above: Order Comment: Speci men Type: BLOOD SPECIMENOrdering Facility: [facility] Address: [address] [id number] Performed By: #### 2 4323-8, 10967-1, 6-3 ####[facility] LABIA [id number] [address] [address] [place] Sodium [Moles/Vol] 139 mmol/L Normal 136-144 [facility] Comment on above: Order Comment: Speci men Type: BLOOD SPECIMENOrdering Facility: [facility] Address: [address] [place] [address] Performed By: #### 2 4323-8, 32460-0, 3016-3 ####[facility] [id number] [address] [address] [place] Urea nitrogen [Mass/Vol] 23 mg/dL High 7-21 [facility] Comment on above: Order Comment: Speci men Type: BLOOD SPECIMENOrdering Facility: [facility] Address: [address] [place] [address] Performed By: #### 2 4323-8, 48603-6, 3016-3 ####[facility] [id number] [place] [address] [place] HbA1c (Bld)on 09-16-2024 Average glucose Estimated from glycated hemoglobin (Bld) [Mass/Vol] 146 mg/dL Normal [facility] Comment on above: Order Comment: Favio [facility] Type: BLOOD SPECIMENOrdering Facility: [facility] Address: [address] [place] [address] Result Comment: eAG: (Estimated average glucose) is a calculated value from HgbA1c and is financial services representative of the average blood glucose level in the last 2-3 month period. Performed By: #### 5 5454-3 ####[facility] [id number] [address] [address] [place] HbA1c (Bld) [Mass fraction] 6.7 % High 4.3-5.6 [facility] Comment on above: Order Comment: Favio [facility] Type: BLOOD SPECIMENOrdering Facility: [facility] Address: [address] [place] [address] Result Comment: Amer ican Diabetes Association guidelines indicate that patients with HgbA1c in the range 5.7-6.4% are at increased risk for development of diabetes, and intervention by lifestyle modification may be beneficial. HgbA1c greater or equal to 6.5% is considered diagnostic of diabetes. Performed By: #### 5 5454-3 ####[facility] [id number] [id number] [place] [address] [place] Lipid 1996 panelon 5 Cholesterol [Mass/Vol] 115 mg/dL Normal <200 [facility] Comment on above: Order Comment: Speci men Type: BLOOD SPECIMENOrdering Facility: [facility] Address: [address] [place] [address] Result Comment: <200 mg/dL, Desirable 200-239 mg/dL, Borderline high >239 mg/dL, High Performed By: #### 2 4323-8, 56549-4, 3015-3 ####[facility] [id number] [address] OF [facility] Cholesterol in HDL [Mass/Vol] 52 mg/dL Normal >39 [facility] Comment on above: Order Comment: Chantellei men Type: BLOOD SPECIMENOrdering Facility: [facility] Address: [address] [place] [address] Result Comment: 40-5 9 mg/dL, Acceptable >59 mg/dL, High: Negative risk factor for coronary heart disease <40 mg/dL, Low: Positive risk factor for coronary heart disease Performed By: #### 2 4323-8, 69190-4, 3015-3 ####[facility] [id number] [address] Cholesterol in LDL [Mass/Vol] 52 mg/dL Normal <100 [facility] Comment on above: Order Comment: Speci men Type: BLOOD SPECIMENOrdering Facility: [facility] Address: [address] [place] [address] Result Comment: <100 mg/dL, Optimal 100-129 mg/dL, Near optimal/above optimal 130-159 mg/dL, Borderline high 160-189 mg/dL, High >189 mg/dL, Very high Secondary prevention optimal LDL Cholesterol levels are recommended to be <70 mg/dL LDL cholesterol is calculated using the Quiroz-NIH equation. Performed By: #### 2 4323-8, 92580-8, 6-3 ####[facility] [id number] [address] [place] Cholesterol in LDL/Cholesterol in HDL [Mass ratio] 1.00 {ratio} Normal <2.54 [facility] Comment on above: Order Comment: Chantellei men Type: BLOOD SPECIMENOrdering Facility: [facility] Address: [facility] [place] [address] Result Comment: Refe rence: 1. National Cholesterol Education Program ATP III Guideline At-A-Glance Quick Desk Reference: National Heart, Lung, and Blood [place]. National Institutes of Health. 2001: NIH Publication No. 01-3305. 2. An International Atherosclerosis Society position paper: global recommendations for the management of dyslipidemia: executive summary, Atherosclerosis. 2014: 232(2):410-413. Performed By: #### 2 4323-8, 44238-1, 3015-3 ####[facility] [id number] [place] [address] [place] Cholesterol in VLDL [Mass/Vol] 6 mg/dL Normal <30 [facility] Comment on above: Order Comment: Chantellei men Type: BLOOD SPECIMENOrdering Facility: [facility] Address: [address] [place] [address] Performed By: #### 2 4323-8, 24479-4, 3015-3 ####[facility] [id number] [address] STATES [place] Cholesterol non HDL [Mass/Vol] 63 mg/dL Normal <130 [facility] Comment on above: Order Comment: Speci men Type: BLOOD SPECIMENOrdering Facility: [facility] Address: [address] [place] [address] Result Comment: <130 mg/dL, Optimal 130-159 mg/dL, Near optimal/above optimal 160-189 mg/dL, Borderline high 190-219 mg/dL, High >219 mg/dL, Very high Secondary prevention optimal non HDL Cholesterol levels are recommended to be <100 mg/dL Performed By: #### 2 4323-8, 71070-8, 3015-3 ####[facility] [id number] [address] [address] [place] Cholesterol.total/Choles terol in HDL [Mass ratio] 2.21 {ratio} Normal <5.10 [facility] Comment on above: Order Comment: Speci men Type: BLOOD SPECIMENOrdering Facility: [facility] Address: [address] [place] [address] Performed By: #### 2 4323-8, 64555-6, 6-3 ####[facility] LABIA [id number] [place] [address] [place] FASTING TIME 12 hrs Normal [facility] Comment on above: Order Comment: Speci men Type: BLOOD SPECIMENOrdering Facility: [facility] Address: [address] [place] [address] Performed By: #### 2 4323-8, 04343-3, 6-3 ####[facility] LABIA [id number] [address] [id number] [place] Triglyceride [Mass/Vol] 43 mg/dL Normal <[address] [facility] Comment on above: Order Comment: Speci men Type: BLOOD SPECIMENOrdering Facility: [facility] Address: [address] [place] [address] Result Comment: <150 mg/dL, Normal 150-199 mg/dL, Borderline high 200-499 mg/dL, High >499 mg/dL, Very high Performed By: #### 2 4323-8, 83891-4, 6-3 ####[facility]IA [id number] [address] [address] [place] TSH SerPl-aCncon 09-16-2024 TSH Qn 2.610 m[IU]/L Normal 0.270-4.20 0 [facility] Comment on above: Order Comment: Speci men Type: BLOOD SPECIMENOrdering Facility: [facility] Address: [address] [place] [address] Performed By: #### 2 4323-8, 11374-3, 3016-3 ####[facility] LABIVONNE [id number] [address] STATES OF [facility] CT CHEST WITHOUT CONTRASTon 09-08-2024 CT CHEST WITHOUT CONTRAST EXAMINATION: CT CHEST WITHOUT CONTRAST, 09/06/2024 10:10 AM EDT HISTORY: possible [...] bibasilar bronchiectasis. Other stable findings as above. Normal [facility] EXERCISE-6 MIN. WALKon 09-06 Ivan Quan MD 09/06/2024 3:53 PM - 09/06/2024 6MWT: on Room Air. Dx: dyspnea - pt. walked for 6 minutes, for a distance of 700 ft (6MWD 213 m). - Baseline SpO2 at rest on room air: 99%. - Significant oxygen desaturation while walking: NO MILD; LOWEST SpO2 97% at 1 min; post-test SpO2 98%. - Dyspnea: NO, highest Mod. Chad Dyspnea Scale Score: 0. IMPRESSION: Exercise limitation: YES. Required or Qualified for Oxygen Supplementation: NO. [facility] No Panel Informationon 09-06 [facility] PFT COMPLETEon 09-06-2024 Ivan Quan MD 09/06/2024 5:14 PM 09/06/2024 Kylie Russo is a 79 y.o. female, Date of :1945. Dx: RLD, dyspnea. Ht 61 in, Wt 152 lbs. Smoker: no. Medications not listed. Pt efforts: good. Data appear acceptable and reproducible: fair. Albuterol given for postbronchodilator spirometry. Procedure: Pulmonary Function Test PFT including spirometry, spirometry with bronchodilator response, lung volumes, Diffusion capacity and Flow Volume Loop were performed during this session. Impression: - 09/06/2024 PFT: - Spirometry - NORMAL; FEV1/FVC 85%, FEV1 2.25L 130% predicted, FVC 2.65L 114% predicted - Significant increase/response to bronchodilator: NO response during this testing (this does not preclude clinical benefit from bronchodilators). - Lung Volume - HYPERINFLATION; INCREASED TLC 8.27L 199% predicted, RV 5.65L 321% predicted - SEVERE AIR TRAPPING. - Diffusing Capacity: MILDLY REDUCED DLCO 68% predicted, DL/VA 93% (which normalizes when adjusted for lung volume, suggesting probably extraparenchymal cause; eg., body habitus, chest wall). - Flow Volume Loops - No overt upper airway obstruction pattern. Results do not exclude clinical diagnosis of asthma, reactive airway disease. Please correlate clinically. SEE SCANNED PFT RESULTS FOR DETAILS. (The above report was entered in part using voice recognition medical dictation software. Although I have reviewed this report for accuracy, certain words and phrases may not be entered as intended. Please excuse typographical and grammatical errors.) [facility] CNOVon 09-05-2024 [facility] Office Visit (INTMWS ) ----- KYLIE RUSSO ([id number]) 1945 F Date Time Provider Department 09/05/24 10:00 AM ALCIRA ANDERSON INTMWS During your visit today, we recorded the following information about you: Pulse Respiration Blood pressure Weight 72/minute 16/minute 147/56 69.7 kg Height 1.575 m Alcira Anderson MD 09/05/2024 6:19 PM Signed Kylie Russo is a 79 year old female [...] history review Reviewed and updated problem list, medical/surgical/family/s ocial history, medications, and allergies. Opioid use review [...] a persistent cough and significant weight loss. Bridger reports a persistent cough and dyspnea that began on 01/03. She has been experiencing wheezing and pain with coughing. She denies fever but endorses chills and feeling cold frequently. She has a history of pneumonia and is scheduled for a CT scan and pulmonary function tests tomorrow. She has been using Trelegy for asthma management and denies using her CPAP machine. Bridger has also been experiencing significant weight loss, going from a size 18 to a petite small, which she attributes to gastroparesis diagnosed in August of the previous year. She follows a strict diet with multiple food restrictions and eats six small meals a day. She denies feeling weak and exercises twice a week for 20 minutes each session. Bridger has diabetes mellitus managed with a Medtronic 780 insulin pump. She reports that her blood glucose levels are usually well-controlled, with 82% of readings within the target range. However, she notes that her blood glucose levels increase to 200-275 mg/dL during coughing episodes. She has not experienced hypoglycemia for a year until a recent episode. Bridger has a history of a detached retina [...] 0.65 % nasal spray azelastine 0.1% nasal spr (more content not included)... Normal [facility] Visit Repor ton 08-30-2024 Gastroenterology Visit Report [facility]enterology [address] [place] [address] OFFICE VISIT Date of Service: 08/30/24 MR#: [id number] Acct: [id number] Name: KYLIE RUSSO Rep #: [id number] : 1945 Provider: Karl Dyer DO Age/Sex: 79/F Location: [facility] Status: Signed Intake Vital Signs 05/17/24 10:10 Height 5 ft 2 in Intake Visit Reasons: Follow up Allergies amitriptyline Allergy (Verified 08/30/24 08:55) Other cefadroxil (Cefadroxil) Allergy (Verified 08/30/24 08:55) Hives ephedrine Allergy (Verified 08/30/24 08:55) HEART RACES erythromycin estolate (From Ilosone) Allergy (Verified 08/30/24 08:55) Angioedema, HEART RACING iodine Allergy (Verified 08/30/24 08:55) Hives, ITCHING levofloxacin Allergy (Verified 08/30/24 08:55) Unknown nortriptyline (Nortriptyline) Allergy (Verified 08/30/24 08:55) Unknown oxycodone (Oxycodone) Allergy (Verified 08/30/24 08:55) CONFUSION oxycodone HCl (From Percocet) Allergy (Verified 08/30/24 08:55) CONFUSION Sulfa (Sulfonamide Antibiotics) Allergy (Verified 08/30/24 08:55) Rash pregabalin (From Lyrica) Adverse Reaction (Severe, Verified 08/30/24 08:55) Vomiting hydrochlorothiazide Adverse Reaction (Intermediate, Verified 08/30/24 08:55) Hypotension acetaminophen (From Percocet) Adverse Reaction (Verified 08/30/24 08:55) Other aspirin (From Aggrenox) Adverse Reaction (Verified 08/30/24 08:55) Vomiting cephalexin Adverse Reaction (Verified 08/30/24 08:55) Nausea/Vom/Diarrhea doxycycline Adverse Reaction (Verified 08/30/24 08:55) Nausea/Vom/Diarrhea duloxetine HCl (From Cymbalta) Adverse Reaction (Verified 08/30/24 08:55) HEADACHE, STOMACH ACHE Medications ???Medication ???Instructions ???Recorded ???Confirmed ???Type atorvastatin 40 mg tablet 40 mg PO QHS cholesterol 06/27/15 08/30/24 History clopidogrel 75 mg tablet 75 mg PO DAILY anti platelet 06/2608/30/24 History albuterol sulfate 2.5 mg/3 mL 2.5 mg inhalation Q6H PRN 03/30/17 08/30/24 History (0.083 %) solution for nebulization Bronchodialation diclofenac sodium 1 % topical gel 2 g topical BID PRN 03/30/1708/18 History (Voltaren) Pain/Inflammation multivitamin 1 tab PO QAM vitamin 03/30/1708/18 History amlodipine 5 mg tablet 5 mg PO DAILY #90 tabs 09/22/18 Rx lactobacillus combination no.9 4 4,000 mmu cells PO DAILY supplemen t 10/14/18 08/30/24 History billion cell capsule (Adult 50 Plus Probiotic) biotin 1 mg capsule 1 mg PO DAILY 10/14/19 08/30/24 Hi story pramipexole 1 mg tablet 2 mg PO QHS 05/24/20 08/30/24 Hist ory aspirin 81 mg tablet,delayed 81 mg PO DAILY 07/05/21 08/30/24 H istory release (Adult Low Dose Aspirin) lancets (Accu-Chek Fastclix Lancet #200 ea 11/04/21 08/30/24 Rx Drum) cholecalciferol (vitamin D3) 125 125 mcg PO DAILY 05/28/22 08/30/24 History mcg (5,000 unit) tablet Humalog U-100 Insulin 100 unit/mL 100 unit subcut QDAY #90 mL 03/1608/30/24 Rx subcutaneous solution (insulin lispro) albuterol sulfate 90 mcg/actuation 1 inh inhalation Q4H PRN shortne ss 04/06/23 08/30/24 History aerosol inhaler of breath or wheezing hydroxychloroquine 200 mg tablet 200 mg PO BID 04/06/23 08/30/24 Hi story clonazepam 1 mg tablet 1 mg PO QHS 11/16/23 08/30/24 Hist ory nitroglycerin 0.4 mg sublingual 0.4 mg sublingual Q5-15M PRN chest 11/26/23 08/30/24 Rx tablet (Nitrostat) pain #25 tabs benzonatate 100 mg capsule 100 mg PO TID 01/18/24 08/30/24 Hi story zolpidem 10 mg tablet (Ambien) 10 mg PO QHS 01/18/24 08/30/24 His tory metronidazole 500 mg tablet 500 mg PO DAILY 04/19/24 08/30/24 History losartan 100 mg tablet See Rx Instructions .Route 5 08/30/24 Rx .COMPLEX #90 tabs Have you fallen in the past year?: No PFSH Medical History Aortic stenosis Wears glasses Wears dentures Insulin dependent diabetes mellitus High cholesterol History of steroid therapy Back pain Dietary restriction Gastric reflux History of edema CPAP (continuous positive airway pressure) dependence Non-smoker History of pain when walking Hypertension History of stress test History of echocardiogram Cardiology follow-up encounter Fall RLS (restless legs syndrome) Insomnia Esophagitis Diverticulosis of colon Coronary artery disease involving confederated salish coronary artery Carpal tunnel syndrome, bilateral Carotid stenosis CAD (coronary artery disease) BPPV (benign paroxysmal positional vertigo) Chronic constipation Insulin pump titration Presence of insulin pump Obesity Vitamin D deficiency Gastroenteritis Polymyalgia rheumatica Chronic rheumatic arthritis Diabetic neuropathy Type 1 diabetes mellitus COPD (chronic obstructi (more content not included)... Normal [facility] 08-29-2024 [facility] Office Visit (UCWSTR ) ----- KYLIE RUSSO ([id number]) 1945 F Date Time Provider Department 08/29/24 7:45 AM SHOBHA VINES [facility] During your visit today, we recorded the following information about you: Temperature Pulse Respiration Blood pressure 97.3 degrees 80/minute 18/minute 122/64 Weight 69 kg Shobha Vines APRN.CNP 08/29/2024 8:34 AM Signed [facility] PAT[facility] [...] with medication therapy. In most people, these (more content not included)... Normal [facility] XR CHEST 2V FRONTAL/LATon XR CHEST 2V FRONTAL/LAT * * *Final Repor t* * * DATE OF EXAM: Aug 29 [...] No radiographic evidence of new airspace consolidation. Sanitation Truck Driver: [facility] Transcribe Date/Time: Aug 29 2024 8:56A Dictated by : CHASTITY JONAS MD This examination was interpreted and the report reviewed and electronically signed by: CHASTITY JONAS MD on Aug 29 2024 8:58AM EST [id number] Normal [facility] XR Chest PA and Lateralon IMPRESSION: Stable findings of interstitial lung disease. No radiographic evidence of new airspace consolidation. Sanitation Truck Driver: [facility] Transcribe Date/Time: Aug 29 2024 8:56A Dictated by : CHASTITY JONAS MD This examination was interpreted and the report reviewed and electronically signed by: CHASTITY JONAS MD on Aug 29 2024 8:58AM EST DIVISION OF RADIOLOGY * * *Final Report* * * DATE OF EXAM: Aug 29 2024 8:55AM WOX 5291 - XR CHEST 2V FRONTAL/LAT / PROCEDURE REASON: Community acquired pneumonia, unspecified laterality * * * * Physician Interpretation * * * * EXAMINATION: CHEST RADIOGRAPH (2 VIEW FRONTAL & LATERAL) CLINICAL HISTORY: Community acquired pneumonia, unspecified [...] changes are present within the thoracic spine. DIVISION OF RADIOLOGY Provider, Phillip Mcclendon - 08/29/2024 * * *Final Report* * * DATE OF EXAM: Aug 29 2024 8:55AM WOX 5291 - XR CHEST 2V FRONTAL/LAT / PROCEDURE REASON: Community acquired pneumonia, unspecified laterality * * * * Physician Interpretation * * * * EXAMINATION: CHEST RADIOGRAPH (2 VIEW FRONTAL & LATERAL) CLINICAL HISTORY: Community acquired pneumonia, unspecified [...] changes are present within the thoracic spine. IMPRESSION IMPRESSION: Stable findings of interstitial lung disease. No radiographic evidence of new airspace consolidation. Sanitation Truck Driver: [facility] Transcribe Date/Time: Aug 29 2024 8:56A Dictated by : CHASTITY JONAS MD This examination was interpreted and the report reviewed and electronically signed by: CHASTITY JONAS MD on Aug 29 2024 8:58AM EST [facility] Radiology Study observation (narrative) Junior khalil [facility] XR Chest PA and LateralOrder ed By: Ccf Provider on 08-29-2024 [facility] KYLIE RUSSO ([id number]) 1945 F Date Time Provider Department 08/17/24 ALCIRA ANDERSON INTMWS During your visit today, we recorded the following information about you: Nannette Padilla, RN 08/17/2024 9:31 AM Signed Pt calling in to let Hernesto Harvey know that she saw her Customer Pricing Manager physician in [place] recently and is going to be having some testing done on 09/06. Pt given fax number for Hernesto Harvey to have the shotgun shell reprinting unit operator send us notes and results. Allergies As [...] 01/21/2021 1 - Mental Status Change PERCOCET (OXYCODONE-ACETAMINOPHEN) 05/29/2010 16 - Unknown SULFA (SULFONAMIDE ANTIBIOTICS) 01/10/2005 4 - Hives Comments: blisters AGGRENOX (ASPIRIN-DIPYRIDAMOLE) 12/18/2008 14 - Other: See Comments Comments: MIGRAINES AND VOMITING CEPHALEXIN (BULK) 05/12/2008 8 - GI Upset DURICEF (CEFADROXIL) 01/10/2005 4 - Hives NORTRIPTYLINE 02/11/2013 14 - Other: See Comments Comments: vertigo Date Reviewed: 06/06/2024 Reviewed by: Hernesto Harvey APRN.CROP AND SOIL TECHNICIAN - Fully Assessed Reason for Visit: Patient [...] day. - Infusion Set for Insulin Pump (OneTouchEMRTRONIC EXT INFUSION SET 23) iset 1 Each [...] to affected area as needed (pain). - lidocain-me.salicyl-caps- menth 0.5-20-0.035-5 % ptmd Apply 1 Each to [...] [E78.5] Hypertension [I10] Coronary artery disease involving confederated salish pinto* 09/29/2019 Dizziness and Giddiness [R42] 04/30/2009 Postsurgical Percutaneous Transluminal Coronary* 04/30/2009 Mild (more content not included)... Normal [facility] 08-11-2024 CNPN Telephone (INTMWS) ----- KYLIE RUSSO ([id number]) 1945 F Date Time Provider Department 08/11/24 ALCIRA ANDERSON INTMWS During your visit today, we recorded the following information about you: Rosalba Ren, KING 08/11/2024 9:09 AM Signed Pt called in [...] form back in when provider receives it. Hernesto Harvey APRN.TIM 08/11/2024 12:30 PM Signed Noted. Please place on desk when received. Thank you Hernesto Harvey APRN.Alba Jay LPN 08/11/2024 1:36 PM Signed Rec'd. Alba Pantoja LPN 08/11/2024 3:51 PM Signed Completed and faxed to number on the form. This has been approved from 05/13/24 to 04/19/25. Alba Pantoja LPN 08/11/2024 3:51 PM Signed Pt notified [...] 01/21/2021 1 - Mental Status Change PERCOCET (OXYCODONE-ACETAMINOPHEN) 05/29/2010 16 - Unknown SULFA (SULFONAMIDE ANTIBIOTICS) 01/10/2005 4 - Hives Comments: blisters AGGRENOX (ASPIRIN-DIPYRIDAMOLE) 12/18/2008 14 - Other: See Comments Comments: MIGRAINES AND VOMITING CEPHALEXIN (BULK) 05/12/2008 8 - GI Upset DURICEF (CEFADROXIL) 01/10/2005 4 - Hives NORTRIPTYLINE 02/11/2013 14 - Other: See Comments Comments: vertigo Date Reviewed: 06/06/2024 Reviewed by: eHrnesto Harvey APRN.CROP AND SOIL TECHNICIAN - Fully Assessed Reason for Visit: Medication [...] day. - Infusion Set for Insulin Pump (OneTouchEMRTRONIC EXT INFUSION SET 23) iset 1 Each [...] to affected area as needed (pain). - lidocain-me.salicyl-caps- menth 0.5-20-0.035-5 % ptmd Apply 1 Each to [...] once daily. - Biotin 1 mg tab Robert (more content not included)... Normal [facility] CNPNon 08-04-2024 CNPN Telephone (ENWSTR) ----- KYLIE RUSSO ([id number]) 1945 F Date Time Provider Department 08/04/24 EVA NIELSEN ENWSTR During your visit today, we recorded the following information about you: Magalys Mera RN 08/04/2024 9:18 AM Signed Certificate of medical necessity (CMN) completed and signed by Dr. Nielsen for Pt's insulin pump and supplies faxed back to [employer]. Fax confirmation received. Magalys Mera RN August [...] 01/21/2021 1 - Mental Status Change PERCOCET (OXYCODONE-ACETAMINOPHEN) 05/29/2010 16 - Unknown SULFA (SULFONAMIDE ANTIBIOTICS) 01/10/2005 4 - Hives Comments: blisters AGGRENOX (ASPIRIN-DIPYRIDAMOLE) 12/18/2008 14 - Other: See Comments Comments: MIGRAINES AND VOMITING CEPHALEXIN (BULK) 05/12/2008 8 - GI Upset DURICEF (CEFADROXIL) 01/10/2005 4 - Hives NORTRIPTYLINE 02/11/2013 14 - Other: See Comments Comments: vertigo Date Reviewed: 06/06/2024 Reviewed by: Hernesto Harvey APRN.CROP AND SOIL TECHNICIAN - Fully Assessed Reason for Visit: Certificate [...] to affected area as needed (pain). - lidocain-me.salicyl-caps- menth 0.5-20-0.035-5 % ptmd Apply 1 Each to [...] [E78.5] Hypertension [I10] Coronary artery disease involving confederated salish pinto* 09/29/2019 D (more content not included)... Normal [facility] Loc 06-08-2024 ROGER Telephone (OSEAS) ----- KYLIE RUSSO ([id number]) 1945 F Date Time Provider Department 06/08/24 CAMILLE HINTON During your visit today, we recorded the following information about you: Camille Hinton RN 06/08/2024 10:54 AM Signed Interstitial Lung Disease Referral Intake Patient: Kylie Russo Date: June 08, 2024 10:50 AM Schedulers: --Please schedule patient with any ILD provider ILD Dr. Ilnee Casillas: [facility]. Dr. Roslyn Chicas: [facility] AND [place] (2023). Dr. Tay Ponce: [facility] AND [facility]. Dr. Ada Donato: [facility] AND [place]. Dr. Ange Marcelino: [facility]. ILD/Sarcoid Dr. Romy Zazueta: [facility] AND [place]. Dr. Doug Mckeon: [facility] AND [facility] ([place]). Dr. Bryan Perla: [facility] and [facility] Dr. Rajan Oh: [facility], [facility], AND [place]. Dr. Chavez Monroe: [facility] AND [place]. Dr. Adelfo Munroe: [facility], [facility] ([facility]) AND [facility] ([facility]). Sarcoid/ILD Pulmonary [place]: [facility] ( afternoon). Dr. Ange Marcelino: [facility]. AND [place]. ILD/Sarcoid/Beryllium/Occ upational Dr. Patricia Armenta: [facility], [facility], AND [place]. Testing needed: Spirometry w/ bronchodilator if obstructed, DLCO, and High Resolution CT Chest. MyChart: Already set up. *Remind patient to bring imaging disc in hand. Consult information: Referred by: Dr. Alyssa Simmons Office name/city: [facility] Diagnosis: ILD (possibly related to [...] and hand carry this to your appointment. Camille Hinton RN Allergies As of Date: 06/08/2024 Noted [...] 01/21/2021 1 - Mental Status Change PERCOCET (OXYCODONE-ACETAMINOPHEN) 05/29/2010 16 - Unknown SULFA (SULFONAMIDE ANTIBIOTICS) 01/10/2005 4 - Hives Comments: blisters AGGRENOX (ASPIRIN-DIPYRIDAMOLE) 12/18/2008 14 - Other: See Comments Comments: MIGRAINES AND VOMITING CEPHALEXIN (BULK) 05/12/2008 8 - GI Upset DURICEF (CEFADROXIL) 01/10/2005 4 - Hives NORTRIPTYLINE 02/11/2013 14 - Other: See Comments Comments: vertigo Date Reviewed: 06/06/2024 Reviewed by: Hernesto Harvey APRN.CROP AND SOIL TECHNICIAN - Fully Assessed Reason for Visit: New ILD [Other] Primary Visit Diagnosis:ILD (interstitial lung disease) (HCC) [J84.9] Other Visit Diagnosis:Interstitial pulmonary disease (HCC) [J84.9] Order(s):SPIROMETRY WITH DILATOR IF OBSTRUCTED [7557088] Order #: [id number]: 1 FUTURE LUNG DIFFUSION CAPACITY (DLCO) [3165083] Order #: [id number]: [address] CHEST WO IVCON [5408340] Order #: [id number] FUTURE Prescriptions as of 06/08/2024 - insulin [...] once daily. - benzonatate (TESSALON PERLES) 100 m (more content not included)... Normal [facility] CNOVon 06-06-2024 CNOV Office Visit (INTMWS ) ----- KYLIE RUSSO ([id number]) 1945 F Date Time Provider Department 06/06/24 7:20 AM HERNESTO HARVEY INTLASHAUN During your visit today, we recorded the following information about you: Pulse Respiration Blood pressure Weight 66/minute 16/minute 118/62 68 kg Hernesto Harvey APRN.CROP AND SOIL TECHNICIAN 06/06/2024 8:08 AM Signed CC: Patient presents with: Recheck: Medication follow up HPI Kylie Russo is a 78 year old female who presents today for follow up on medications. Chronic Insomnia: Ambien working well. Getting 6 or more hours of sleep with current dose and tolerating well. Denies falls, confusion, or new concerns. Still with sinusitis. Following with ENT in [place], Dr. Umaña. Has a CT of the sinuses scheduled today at [facility]. HTN: Ms. Russo denies headache, chest pain, palpitations, change in chronic dyspnea, and peripheral edema. Patient denies any side effects of her medication(s) and is compliant with their regimen. She checks her BP at home but states it varies from 110s-130s/60s Kylie has been trying to increase her physical [...] TUNNEL BILATERRAL 08/08/2005 Coronary artery disease involving confederated salish coronary artery Dr. 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 ([facility]) 12/06/2018 Other and unspecified hyperlipidemia Other forms of migraine Other psoriasis Postsurgical percutaneous transluminal coronary angioplasty status Rheumatoid arthritis(714.0) RLS (restless legs syndrome) 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 insulin glargine (LANTUS SOLOSTAR U-100 INSULIN) 100 unit/mL (3 mL) Take 51 units once a da (more content not included)... Normal [facility] Sinus/Facial Boneon 06-06-19 Sinus/Facial Bone [facility] Imaging Services [address] [place] [address] Sinus/Facial Bone MR#: [id number] Acct: [id number] Name: KYLIE RUSSO Rep #: [id number] : 1945 F 78 From: [place] PCP: Dr. Alcira Anderson MD Status: REG CLI Study: Sinus/Facial Bone Date of Exam: 06/06/24 Exam# [id number] Ordering Dr: Albert Umaña MD PROCEDURE: CT paranasal sinuses without IV contrast REASON FOR EXAM: Sinusitis TECHNIQUE: Multiple contiguous axial images through the paranasal sinuses were obtained without the administration of intravenous contrast. Two-dimensional coronal and sagittal reformatted images were reconstructed. Low-dose imaging technique was utilized. COMPARISON: None. FINDINGS: Paranasal sinuses are clear and without evidence of fluid levels. Bilateral ostiomeatal units are patent. Bilateral sphenoethmoidal recesses are patent. Turbinates are intact. Mild leftward nasal septal deviation and tiny septal spur. Mastoid air cells and middle ear cavities are clear. TMJs are intact. Globes are intact. No suspicious erosions or sclerosis. CT/Sinus/Facial Bone IMPRESSION: 1. No evidence of paranasal sinus disease. 2. Mild leftward nasal septal deviation. One or more dose reduction techniques were used (e.g., Automated exposure control, adjustment of the mA and/or kV according to patient size, use of iterative reconstruction technique). Reading Location: [facility] CC: Dr. Albret Umaña MD; Dr. 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: Signed Normal [facility] 06-02-2024 [facility] Telephone (ENWSTR) ----- KYLIE RUSSO ([id number]) 1945 F Date Time Provider Department 06/02/24 EVA NIELSEN ALONSO PULIDO During your visit today, we recorded the [...] 01/21/2021 1 - Mental Status Change PERCOCET (OXYCODONE-ACETAMINOPHEN) 05/29/2010 16 - Unknown SULFA (SULFONAMIDE ANTIBIOTICS) 01/10/2005 4 - Hives Comments: blisters AGGRENOX (ASPIRIN-DIPYRIDAMOLE) 12/18/2008 14 - Other: See Comments Comments: MIGRAINES AND VOMITING CEPHALEXIN (BULK) 05/12/2008 8 - GI Upset DURICEF (CEFADROXIL) 01/10/2005 4 - Hives NORTRIPTYLINE 02/11/2013 14 - Other: See Comments Comments: vertigo Date Reviewed: 05/30/2024 Reviewed by: Yohana Amanda MA - Fully Assessed Reason for [...] to affected area as needed (pain). - lidocain-me.salicyl-caps- menth 0.5-20-0.035-5 % ptmd Apply 1 Each to [...] CR tablet Take 1 tablet by mouth luisa (more content not included)... [facility] ----- KYLIE RUSSO ([id number]) 1945 F Date Time Provider Department 05/31/24 OMAYRA FALCON [facility] During your visit today, we recorded the following information about you: Priscilla Matamoros 05/31/2024 4:09 PM Signed CONSULT TO GASTROENTEROLOGY (Order #[id number]) on 05/30/24 Kylie Russo is being referred to or the Gastroparesis clinic. Referring Physician: Dr. Grajeda Preferred phone number for contact: [phone] Send to GASTROPARESIS SCHEDULING POOL [[phone]] Priscilla Matamoros 05/31/2024 4:09 PM Signed Left VM for patient to call office to update registration and go over records needed for review prior to scheduling. Priscilla Matamoros 06/07/2024 9:22 AM Signed 2nd attempt: Left VM for patient to call office to update registration and go over records needed for review prior to scheduling. Guillermina Harding 06/07/2024 2:18 PM Signed Patient returned call to schedule Priscilla Matamoros 06/08/2024 11:32 AM Signed Left VM for patient to call office to update registration and go over records needed for review prior to scheduling. Priscilla Matamoros 06/15/2024 10:56 AM Signed Last attempt [...] 01/21/2021 1 - Mental Status Change PERCOCET (OXYCODONE-ACETAMINOPHEN) 05/29/2010 16 - Unknown SULFA (SULFONAMIDE ANTIBIOTICS) 01/10/2005 4 - Hives Comments: blisters AGGRENOX (ASPIRIN-DIPYRIDAMOLE) 12/18/2008 14 - Other: See Comments Comments: MIGRAINES AND VOMITING CEPHALEXIN (BULK) 05/12/2008 8 - GI Upset DURICEF (CEFADROXIL) 01/10/2005 4 - Hives NORTRIPTYLINE 02/11/2013 14 - Other: See Comments Comments: vertigo Date Reviewed: 05/30/2024 Reviewed by: Yohana Amanda MA - Fully Assessed Reason for [...] to affected area as needed (pain). - lidocain-me.salicyl-caps- menth 0.5-20-0.035-5 % ptmd Apply 1 Each to [...] 6 WHEELS - RED For ambulation - nitroglyc (more content not included)... Normal [facility] CNOVon 05-30-2024 CNOV Office Visit (RHEJUANY ) ----- KYLIE RUSSO ([id number]) 1945 F Date Time Provider Department 05/30/24 10:20 AM ROLAND GRAJEDA During your visit today, we recorded the following information about you: Temperature Pulse Blood pressure Weight 97.8 degrees 57/minute 112/69 68 kg Height 1.575 m Roland Grajeda MD 05/30/2024 10:40 AM Signed On 05/30/2024, I had the pleasure of seeing Kylie Russo at the [facility] for seropositive RA HPI: To review, Kylie Russo is a 78 year old female *Re: BMD - Around '00, broke L wrist after slipping on ice and falling down a sloped ground - Around '09, broke R foot after foot got stuck [...] diagnosed with ILD. Sees Dr. 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 - In Jan, advised to resume HCQ once daily per vp of customer experience strategy (but didn't say why). - In Feb, [...] TUNNEL BILATERRAL 08/08/2005 Coronary artery disease involving confederated salish coronary artery Dr. 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 ([facility]) 12/06/2018 Other and unspecified hyperlipidemia Other forms of migraine Other psoriasis Postsurgical percutaneous transluminal coronary angioplasty status Rheumatoid arthritis(714.0) RLS (restless legs syndrome) 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 Normal [facility] Loc 05-30-2024 TIMN Telephone (ORQ) ----- KYLIE RUSSO ([id number]) 1945 F Date Time Provider Department 05/30/24 ROLAND GRAJEDA During your visit today, we recorded the following information about you: Keli Gonzalez 05/31/2024 11:17 AM Addendum CONSULT TO PULMONARY MEDICINE (Order #[id number]) on 05/30/24 Appointment For: ILD Year of Diagnosis: Referring Provider: Keli Blanca 05/31/2024 11:13 AM Signed CONSULT TO GASTROENTEROLOGY (Order #[id number]) on 05/30/24 Kylie Russo is being referred to or the Gastroparesis clinic. Referring Physician: Dr. Grajeda Preferred phone number for contact: [phone] Send to GASTROPARESIS SCHEDULING POOL [[phone]] Priscilla Matamoros 05/31/2024 4:10 PM Signed Address GI referral in separate encounter. Alyssa Simmons MD 06/03/2024 11:32 AM Signed Telephone on 05/30/24 CONSULT TO PULMONARY MEDICINE Alyssa Simmons MD Allergies As of Date: 05/30/2024 Noted [...] 01/21/2021 1 - Mental Status Change PERCOCET (OXYCODONE-ACETAMINOPHEN) 05/29/2010 16 - Unknown SULFA (SULFONAMIDE ANTIBIOTICS) 01/10/2005 4 - Hives Comments: blisters AGGRENOX (ASPIRIN-DIPYRIDAMOLE) 12/18/2008 14 - Other: See Comments Comments: MIGRAINES AND VOMITING CEPHALEXIN (BULK) 05/12/2008 8 - GI Upset DURICEF (CEFADROXIL) 01/10/2005 4 - Hives NORTRIPTYLINE 02/11/2013 14 - Other: See Comments Comments: vertigo Date Reviewed: 05/30/2024 Reviewed by: Yohana Amanda MA - Fully Assessed Primary Visit Diagnosis:Interstitial lung disease (HCC) [J84.9] Order(s):CONSULT TO PULMONARY MEDICINE [3805982] Order #: [id number]: 1 Prescriptions as of 06/07/2024 - insulin [...] to affected area as needed (pain). - lidocain-me.salicyl-caps- menth 0.5-20-0.035-5 % ptmd Apply 1 Each to [...] by mouth once daily. - Cholecalciferol, Vitamin D3 (more content not included)... Normal [facility] CNOVon 05-23-2024 CNOV Office Visit (ENWSTR ) ----- KYLIE RUSSO ([id number]) 1945 F Date Time Provider Department 05/23/24 2:40 PM EVA NIELSENWSTR During your visit today, we recorded the [...] diabetic. She was following Dr. Palm at [facility] in the recent past, last appointment in April 2023. Prior to that, she was following with endocrinology at [facility], last appointment in October 2020 with Princess Lim APRN. 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 Dyer at [facility] Exacerbating factors include: obesity Last NEIL/Retina Eval: May 02, 2024, reports left eye is having blurry vision, right eye is alright Nephropathy -- Yes STEFFANY/ARB Use -- Yes She was following with podiatry, Dr. Zhao Other -- Wheelchair bound due to stroke Current diabetes regimen is as follows: Basal insulin for back up: lantus Glucagon: denies Humalog via Abound Solartronic 780 G pump plus Guardian sensor Basal [...] diet She has seen Nutrition services at [facility], and reports that it was not very beneficial, she saw dietitian at [facility] who started her on a gastroparesis [...] TUNNEL BILATERRAL 08/08/2005 Coronary artery disease involving confederated salish coronary artery Dr. Pederson follows regularly; S/P PTCA and stenting at [facility], 2001 Coronary atherosclerosis of unspecified type of vessel, confederated salish or graft Disorder of bone and cartilage, unspecified Diverticulosis of colon (without mention of hemorrhage) DKA (diabetic ketoacidoses) 09/28/2019 (more content not included)... Normal [facility] HEMOGLOBIN A1C (POC)on 05-23 HbA1c (Bld) [Mass fraction] 6.6 % Abnormal 4.3 - 5.6 % [facility] Comment on above: Location:[facility], [address], [place], [address] Point of care (POC) Hemoglobin A1c (HGBA1C) [...] specific diabetes management situations: The POC device manufacturers service representative provides a normal range of 4.2% to 6.5% for the HGBA1C POC test. However, the [place] Diabetes Association guidelines indicate that patients with [...] anemia) that alter red blood cell lifespan. Interpretation and review of laboratory results Abnormal [facility] Cardiology Visit Reporton Cardiology Visit Report [facility] [address] [place] [address] OFFICE VISIT Date of Service: 05/17/24 MR#: [id number] Acct: [id number] Name: KYLIE RUSSO Rep #: [id number] : 1945 Provider: RODERICK Wolfe Age/Sex: 78/F Location: [facility] Status: Signed HPI HPI History of Present Illness Details: KYLIE RUSSO, is a 78 F who presents to the office today for a cardiovascular follow-up visit. She is a lady with a history of mild coronary artery disease hypertension previous cerebrovascular accident hyperlipidemia obstructive sleep apnea diabetes mellitus. 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 She does not have any chest pain. She does not have any worsening SOB. She does still have a cough. When she lays down she can feel her heart beat in her chest and in the back of her head. She does have lightheadedness, this is new. She has not passed out. She does have balance issues. She does not have any edema. 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 Is patient in pain?: No Allergies amitriptyline Allergy (Verified 05/17/24 10:07) Other cefadroxil (Cefadroxil) Allergy (Verified 05/17/24 10:07) Hives ephedrine Allergy (Verified 05/17/24 10:07) HEART RACES erythromycin estolate (From Ilosone) Allergy (Verified 05/17/24 10:07) Angioedema, HEART RACING iodine Allergy (Verified 05/17/24 10:07) Hives, ITCHING levofloxacin Allergy (Verified 05/17/24 10:07) Unknown nortriptyline (Nortriptyline) Allergy (Verified 05/17/24 10:07) Unknown oxycodone (Oxycodone) Allergy (Verified 05/17/24 10:07) CONFUSION oxycodone HCl (From Percocet) Allergy (Verified 05/17/24 10:07) CONFUSION Sulfa (Sulfonamide Antibiotics) Allergy (Verified 05/17/24 10:07) Rash pregabalin (From Lyrica) Adverse Reaction (Severe, Verified 05/17/24 10:07) Vomiting hydrochlorothiazide Adverse Reaction (Intermediate, Verified 05/17/24 10:07) Hypotension acetaminophen (From Percocet) Adverse Reaction (Verified 05/17/24 10:07) Other aspirin (From Aggrenox) Adverse Reaction (Verified 05/17/24 10:07) Vomiting cephalexin Adverse Reaction (Verified 05/17/24 10:07) Nausea/Vom/Diarrhea doxycycline Adverse Reaction (Verified 05/17/24 10:07) Nausea/Vom/Diarrhea duloxetine HCl (From Cymbalta) Adverse Reaction (Verified 05/17/24 10:07) HEADACHE, STOMACH ACHE Medications ???Medication ???Instructions ???Recorded ???Confirmed ???Type atorvastatin 40 mg tablet 40 mg PO QHS cholesterol 06/27/15 05/17/24 History clopidogrel 75 mg tablet 75 mg PO DAILY anti platelet 06/27/15 05/17/24 History albuterol sulfate 2.5 mg/3 mL 2.5 mg inhalation Q6H PRN 03/30/17 04/19/24 History (0.083 %) solution for nebulization Bronchodialation diclofenac sodium 1 % topical gel 2 g topical BID PRN 03/30/17 04/19/24 History (Voltaren) Pain/Inflammation multivitamin 1 tab PO QAM vitamin 03/30/17 05/17/24 History amlodipine 5 mg tablet 5 mg PO DAILY #90 tabs 09/22/18 05/17/24 Rx lactobacillus combination no.9 4 4,000 mmu cells PO DAILY supplement 10/14/18 04/19/24 History billion cell capsule (Adult 50 Plus Probiotic) biotin 1 mg capsule 1 mg PO DAILY 10/14/19 05/17/24 History pramipexole 1 mg tablet 2 mg PO QHS 05/24/20 05/17/24 History aspirin 81 mg tablet,delayed 81 mg PO DAILY 07/05/21 04/19/24 History release (Adult Low Dose Aspirin) lancets (Accu-Chek Fastclix Lancet #200 ea 11/04/21 04/19/24 Rx Drum) cholecalciferol (vitamin D3) 125 125 mcg PO DAILY 05/28/22 05/17/24 History mcg (5,000 unit) tablet Humalog U-100 Insulin 100 unit/mL 100 unit subcut QDAY #90 mL 03/16/23 05/17/24 Rx subcutaneous solution (insulin lispro) albuterol sulfate 90 mcg/actuation 1 inh inhalation Q4H PRN shortness 04/06/23 04/19/24 History aerosol inhaler of breath or wheezing hydroxychloroquine 200 mg tablet 200 mg PO BID 04/06/23 05/17/24 History clonazepam 1 mg tablet 1 mg PO QHS 11/16/23 04/19/24 History nitroglycerin 0.4 mg sublingual 0.4 mg sublingual Q5-15M PRN chest 11/26/23 05/17/24 Rx tablet (Nitrostat) pain #25 tabs benzonatate 100 mg capsule 100 mg PO TID 01/18/24 04/19/24 History zolpidem 10 mg tablet (Ambien) 10 mg PO QHS 01/18/24 04/19/24 History metronidazole 500 mg tablet 500 mg PO DAILY 04/19/24 05/17/24 History losartan 100 mg tablet See Rx Instructions .Route 05/17/24 05/17/24 Rx .COMPLEX #90 tabs Have you fallen (more content not included)... Normal [facility] 05-11-2024 [facility] Telephone (INTMWS) ----- KYLIE RUSSO ([id number]) 1945 F Date Time Provider Department 05/11/24 HERNESTO HARVEY During your visit today, we recorded the following information about you: Mirtha Ramos RN 05/11/2024 2:25 PM Signed Patient calls to let provider know that she was seen by Dr. Umaña with [facility] and had allergy testing completed. Patient reports that no allergies were found. Patient reports that Dr. Umaña is requesting provider order a CT scan of patient's sinuses and then forward those results to him. Patient requests call back at [phone] with provider response. KING Corea Joy, APRN.[facility] 05/13/2024 12:52 PM Signed Please call the ENT office and find out why they are not ordering this study themselves and having the patient relaying messages for them. If they for some reason are unable to order there own studies, they need to fax their recommendations to the office so I can review them. Thank you Hernesto Harvey APRN.Helder Mcdonald LPN 05/13/2024 1:33 PM Signed Called ENT Dr Umaña office, spoke to Bridger, Bridger stated doctor is out today and will forward message. Regarding CT order. ENT # [phone] Helder Sung LPN May 13, 2024 1:33 PM [...] 01/21/2021 1 - Mental Status Change PERCOCET (OXYCODONE-ACETAMINOPHEN) 05/29/2010 16 - Unknown SULFA (SULFONAMIDE ANTIBIOTICS) 01/10/2005 4 - Hives Comments: blisters AGGRENOX (ASPIRIN-DIPYRIDAMOLE) 12/18/2008 14 - Other: See Comments Comments: MIGRAINES AND VOMITING CEPHALEXIN (BULK) 05/12/2008 8 - GI Upset DURICEF (CEFADROXIL) 01/10/2005 4 - Hives NORTRIPTYLINE 02/11/2013 14 - Other: See Comments Comments: vertigo Date Reviewed: 02/16/2024 Reviewed by: Magalys Mrea, RN - Fully Assessed Reason for Visit: [...] day. - Infusion Set for Insulin Pump ([employer] EXT INFUSION SET 23) iset 1 Each [...] to affected area as needed (pain). - lidocain-me.salicyl-caps- menth 0.5-20-0.035-5 % ptmd Apply 1 Each to [...] 1 capsule by mouth once daily. - (more content not included)... Normal [facility] CNPNon 05-09-2024 CNPN Telephone (INTMWS) ----- KYLIE RUSSO ([id number]) 1945 F Date Time Provider Department 05/09/24 ALCIRA ANDERSON INTWS During your visit today, we recorded the [...] a 30 day supply. Last VV with Hernesto: 04-14-24 Last in office visit with Hernesto: 01-25-24 Next in office visit with Hernesto: 06-06-24 Asking provider to send 90 day supply to [facility]. Pended. Hernesto Harvey APRN.CNP 05/09/2024 1:20 PM Signed PDMP website checked and validated. All prescriptions have been APPROPRIATELY filled. No suspicious activity was identified. 05/09/2024 by Hernesto Harvey APRN.CNP Allergies As of Date: 05/09/2024 Noted Allergy [...] 01/21/2021 1 - Mental Status Change PERCOCET (OXYCODONE-ACETAMINOPHEN) 05/29/2010 16 - Unknown SULFA (SULFONAMIDE ANTIBIOTICS) 01/10/2005 [...] to affected area as needed (pain). - lidocain-me.salicyl-caps- menth 0.5-20-0.035-5 % ptmd Apply 1 Each to [...] daily. - aspirin 81 mg chewable tablet (more content not included)... Normal [facility], Throaton 04-19-2024 CUT Normal throat ernestine isolated. No beta-hemolytic streptococcus isolated. Normal [facility] Comment on above: Performed By: #### M 100.1000 #### [facility] [address] [place], [address] Gastroenterology Visit Repor ton 04-19-2024 Gastroenterology Visit Report [facility] Gastroenterology [address] [place] [address] OFFICE VISIT Date of Service: 04/19/24 MR#: [id number] Acct: [id number] Name: KYLIE RUSSO Rep #: [id number] : 1945 Provider: Karl Dyer DO Age/Sex: 78/F [place] [facility] [place]: Signed Intake Vital Signs 12/07/23 14:06 Height 5 ft 2 in Intake Visit Reasons: 3 M FU Allergies amitriptyline Allergy (Verified 05/23/23 14:53) Other cefadroxil (Cefadroxil) Allergy (Verified 05/23/23 14:53) Hives ephedrine Allergy (Verified 05/23/23 14:53) HEART RACES erythromycin estolate (From Ilosone) Allergy (Verified 05/23/23 14:53) Angioedema, HEART RACING iodine Allergy (Verified 05/23/23 14:53) Hives, ITCHING levofloxacin Allergy (Verified 05/23/23 14:53) Unknown nortriptyline (Nortriptyline) Allergy (Verified 05/23/23 14:53) Unknown oxycodone (Oxycodone) Allergy (Verified 05/23/23 14:53) CONFUSION oxycodone HCl (From Percocet) Allergy (Verified 05/23/23 14:53) CONFUSION Sulfa (Sulfonamide Antibiotics) Allergy (Verified 05/23/23 14:53) Rash pregabalin (From Lyrica) Adverse Reaction (Severe, Verified 05/23/23 14:53) Vomiting hydrochlorothiazide Adverse Reaction (Intermediate, Verified 05/23/23 14:53) Hypotension acetaminophen (From Percocet) Adverse Reaction (Verified 05/23/23 14:53) Other aspirin (From Aggrenox) Adverse Reaction (Verified 05/23/23 14:53) Vomiting cephalexin Adverse Reaction (Verified 05/23/23 14:53) Nausea/Vom/Diarrhea doxycycline Adverse Reaction (Verified 05/23/23 14:53) Nausea/Vom/Diarrhea duloxetine HCl (From Cymbalta) Adverse Reaction (Verified 05/23/23 14:53) HEADACHE, STOMACH ACHE Medications ???Medication ???Instructions ???Recorded ???Confirmed ???Type atorvastatin 40 mg tablet 40 mg PO QHS cholesterol 06/27/15 04/19/24 History clopidogrel 75 mg tablet 75 mg PO DAILY anti platelet 06/27/15 04/19/24 History albuterol sulfate 2.5 mg/3 mL 2.5 mg inhalation Q6H PRN 03/30/17 04/19/24 History (0.083 %) solution for nebulization Bronchodialation diclofenac sodium 1 % topical gel 2 g topical BID PRN 03/30/17 04/19/24 History (Voltaren) Pain/Inflammation multivitamin 1 tab PO QAM vitamin 03/30/17 04/19/24 History amlodipine 5 mg tablet 5 mg PO DAILY #90 tabs 09/22/18 04/19/24 Rx lactobacillus combination no.9 4 4,000 mmu cells PO DAILY supplement 10/14/18 04/19/24 History billion cell capsule (Adult 50 Plus Probiotic) biotin 1 mg capsule 1 mg PO DAILY 10/14/19 04/19/24 History pramipexole 1 mg tablet 2 mg PO QHS 05/24/20 04/19/24 History aspirin 81 mg tablet,delayed 81 mg PO DAILY 07/05/21 04/19/24 History release (Adult Low Dose Aspirin) lancets (Accu-Chek Fastclix Lancet #200 ea 11/04/21 04/19/24 Rx Drum) cholecalciferol (vitamin D3) 125 125 mcg PO DAILY 05/28/22 04/19/24 History mcg (5,000 unit) tablet Humalog U-100 Insulin 100 unit/mL 100 unit subcut QDAY #90 mL 03/16/23 04/19/24 Rx subcutaneous solution (insulin lispro) albuterol sulfate 90 mcg/actuation 1 inh inhalation Q4H PRN shortness 04/06/23 04/19/24 History aerosol inhaler of breath or wheezing hydroxychloroquine 200 mg tablet 200 mg PO BID 04/06/23 04/19/24 History clonazepam 1 mg tablet 1 mg PO QHS 11/16/23 04/19/24 History losartan 100 mg tablet See Rx Instructions .Route 11/26/23 04/19/24 Rx .COMPLEX #90 tabs nitroglycerin 0.4 mg sublingual 0.4 mg sublingual Q5-15M PRN chest 11/26/23 04/19/24 Rx tablet (Nitrostat) pain #25 tabs benzonatate 100 mg capsule 100 mg PO TID 01/18/24 04/19/24 History zolpidem 10 mg tablet (Ambien) 10 mg PO QHS 01/18/24 04/19/24 History metronidazole 500 mg tablet 500 mg PO DAILY 04/19/24 04/19/24 History Have you fallen in the past year?: No [facility] Medical History Wears glasses Wears dentures Insulin dependent diabetes mellitus High cholesterol History of steroid therapy Back pain Dietary restriction Gastric reflux History of edema CPAP (continuous positive airway pressure) dependence Non-smoker History of pain when walking Hypertension History of stress test History of echocardiogram Cardiology follow-up encounter Fall RLS (restless legs syndrome) Insomnia Esophagitis Diverticulosis of colon Coronary artery disease involving confederated salish coronary artery Carpal tunnel syndrome, bilateral Carotid stenosis CAD (coronary artery disease) BPPV (benign paroxysmal positional vertigo) Chronic constipation Insulin pump titration Presence of insulin pump Obesity Vitamin D deficiency Gastroenteritis Polymyalgia rheumatica Chronic rheumatic arthritis Diabetic neuropathy Type 1 diabetes mellitus COPD (chronic obstructive pulmonary disease) Essential (primary) hypertension Atheroscler (more content not included)... [facility] Telephone (ENWSTR) ----- KYLIE RUSSO ([id number]) 1945 F Date Time Provider Department 03/29/24 EVA NIELSEN ENWSTR During your visit today, we recorded the following information about you: Kylie PalominoELA 03/29/2024 11:16 AM Signed Patient calling and states she is out of infusion sets for her pump. She has an order through [facility] but they may not be able to obtain it until after 16 +shipping time. She is wondering if we could contact our [employer] rep to see if they might be able to provide her with 2 sets until her next shipment arrives? Pt. phone: [phone] ELA Rizvi Brittney, RN 03/29/2024 11:50 AM Signed Email sent to Yann Pickett, [employer] rep, inquiring about below notation per Pt request. Will contact Pt to let her know what we find out. Magalys Mera RN March 29, 2024 11:50 AM Magalys Mera RN 03/29/2024 4:41 PM Signed Per Yann at [facility] - [employer] can offer that for her. I will call her now. [employer] message sent to Pt letting her know. [...] 01/21/2021 1 - Mental Status Change PERCOCET (OXYCODONE-ACETAMINOPHEN) 05/29/2010 16 - Unknown SULFA (SULFONAMIDE ANTIBIOTICS) 01/10/2005 [...] day. - Infusion Set for Insulin Pump ([employer] EXT INFUSION SET 23) iset 1 Each [...] to affected area as needed (pain). - lidocain-me.salicyl-caps- menth 0.5-20-0.035-5 % ptmd Apply 1 Each to [...] once daily. - Biotin 1 mg tab (more content not included)... Normal [facility] HEMOGLOBIN A1C (POC)on 02-15 HbA1c (Bld) [Mass fraction] 6.8 % Abnormal 4.3 - 5.6 % [facility] Comment on above: Location:[facility], [address], [place], [place], [facility] Point of care (POC) Hemoglobin A1c (HGBA1C) [...] specific diabetes management situations: The POC device manufacturers service representative provides a normal range of 4.2% to 6.5% for the HGBA1C POC test. However, the [place] Diabetes Association guidelines indicate that patients with [...] anemia) that alter red blood cell lifespan. Interpretation and review of laboratory results Abnormal [facility] XR Chest PA and Lateralon IMPRESSION: No acute radiographic abnormality. Sanitation Truck Driver: PSCSonny Transcribe Date/Time: Jan 26 2024 9:09A Dictated by : GORGE WILSON MD This examination was interpreted and the report reviewed and electronically signed by: GORGE WILSON MD on Jan 26 2024 9:38AM [facility] DIVISION OF RADIOLOGY * * *Final Report* * * DATE OF EXAM: Jan 25 2024 2:12PM WOX [id number] - XR CHEST 2V FRONTAL/LAT / PROCEDURE REASON: multiple diagnoses * * * * Physician Interpretation * * * * EXAMINATION: CHEST RADIOGRAPH (2 VIEW FRONTAL & LATERAL) CLINICAL HISTORY: Shortness of breath Wheezing MQ: XC2_6 EXAM DATE/TIME: 01/25/2024 2:12 PM COMPARISON: No relevant prior studies available. RESULT: Lines, tubes, and devices: None. Lungs and pleura: No consolidation. No lung mass. No pleural effusion. No pneumothorax. Cardiomediastinal silhouette: Normal cardiomediastinal silhouette. Bones and soft tissues: There is kyphosis with multilevel degenerative changes of the thoracic spine. DIVISION OF RADIOLOGY Provider, [facility] - 01/26/2024 * * *Final Report* * * DATE OF EXAM: Jan 25 2024 2:12PM WOX [id number] - XR CHEST 2V FRONTAL/LAT / PROCEDURE REASON: multiple diagnoses * * * * Physician Interpretation * * * * EXAMINATION: CHEST RADIOGRAPH (2 VIEW FRONTAL & LATERAL) CLINICAL HISTORY: Shortness of breath Wheezing MQ: XC2_6 EXAM DATE/TIME: 01/25/2024 2:12 PM COMPARISON: No relevant prior studies available. RESULT: Lines, tubes, and devices: None. Lungs and pleura: No consolidation. No lung mass. No pleural effusion. No pneumothorax. Cardiomediastinal silhouette: Normal cardiomediastinal silhouette. Bones and soft tissues: There is kyphosis with multilevel degenerative changes of the thoracic spine. IMPRESSION IMPRESSION: No acute radiographic abnormality. Sanitation Truck Driver: PSCB Transcribe Date/Time: Jan 26 2024 9:09A Dictated by : GORGE WILSON MD This examination was interpreted and the report reviewed and electronically signed by: GORGE WILSON MD on Jan 26 2024 9:38AM EST [facility] XR Chest PA and LateralOrder ed By: [facility] Provider on 01-26-2024 [facility] XR Chest PA and Lateralon Radiology Study observation (narrative) [facility] CNOVon 11-24-2023 CNOV Office Visit (AGVASA CC) ----- KYLIE RUSSO ([id number]) 1945 F Date Time Provider Department 11/24/23 11:30 AM MANUELA THOMAS During your visit today, we recorded the following information about you: Pulse Respiration Blood pressure Weight 68/minute 16/minute 128/70 77.1 kg Height 1.56 m Manuela Thomas APRN.[employer] TECHNICIAN 11/24/2023 4:34 PM Signed Kylie Russo 78 year old female returning for a routine follow-up of carotid disease for which no previous intervention has been performed. Bridger saw Dr. Arredondo in 2021 to establish care with vascular surgery, for evaluation/treatment/surv eillance of her carotid disease. She remains asymptomatic, with no s/s of [...] result in stroke. Previous duplex ultrasound findings: 11/11/22 R ICA 20-39%, psv 91 L ICA 60-79%, psv 232 PAST MEDICAL HISTORY No date: Abnormal mammogram, unspecified Comment: left breast 02/11/2015: BPPV (benign paroxysmal positional vertigo) No date: BPV (benign positional vertigo) No date: CAD (coronary artery disease) No date: Carotid stenosis 08/08/2005: CARPAL TUNNEL BILATERRAL No date: Coronary artery disease involving confederated salish coronary artery Comment: Dr. Pederson follows regularly; S/P PTCA and stenting at [facility], 2000 No date: Coronary atherosclerosis of unspecified type of vessel, confederated salish or graft No date: Disorder of bone and cartilage, unspecified No date: Diverticulosis of colon (without mention of hemorrhage) 09/28/2019: DKA (diabetic ketoacidoses) No date: Esophagitis No date: External hemorrhoids without mention of complication No date: Insomnia No date: Internal hemorrhoids without mention of complication No date: Mammographic microcalcification No date: Mild intermittent asthma without complication Comment: Adult onset 12/06/2018: 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) No date: Other and unspecified hyperlipidemia No date: Other forms of migraine No date: Other psoriasis No date: Postsurgical percutaneous transluminal coronary angioplasty status No date: Rheumatoid arthritis(714.0) No date: RLS (restless legs syndrome) No date: Stroke (cerebrum) (HCC) Comment: x3 03/01/2012: Thoracic or lumbosacral neuritis or radiculitis, unspecified No date: Type I (juvenile type) diabetes mellitus with neurological manifestations, not stated as 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.61) No date: 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, 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) No date: Unspecified asthma(493.90) No date: Unspecified essential hypertension No date: Unspecified hereditary and idiopathic peripheral neuropathy PAST SURGICAL HISTORY No date: BREAST BIOPSY 02/26/2204: COLONOSCOPY FLX DX W/COLLJ SPEC WHEN PFRMD Comment: Colonoscopy 08/29/15: COLONOSCOPY FLX DX W/COLLJ SPEC WHEN PFRMD Comment: Colonoscopy 11/10/2018: COLONOSCOPY FLX DX W/COLLJ SPEC WHEN PFRMD Comment: Colonoscopy 04/15/2002: EGD 11/10/2018: ESOPHAGOGASTRODUODENOSCOP Y TRANSORAL DIAGNOSTIC Comment: EGD 03/2008: EXC BREAST LES PREOP PLMT RAD MARKER OPEN 1 LES No date: OPEN REPAIR OF ROTATOR CUFF CHRONIC Comment: left rotator cuff No date: PAST SURGICAL HISTORY OF Comment: tonsilectomy and adenoidectomy No date: PAST SURGICAL HISTORY OF Comment: right breast lumpectomy No date: PAST SURGICAL HISTORY OF Comment: x 3 1992: PAST SURGICAL HISTORY OF Comment: right thumb trigger finger No date: PAST SURGICAL HISTORY OF Comment: hand surgery No date: PAST SURGICAL HISTORY OF Comment: nose surgery age 17: PAST SURGICAL HISTORY OF Comment: axillary cyst removal 2000: PAST SURGICAL HISTORY OF Comment: heart cath with stent placement No date: PAST SURGICAL HISTORY OF Comment: CARDIAC CAATH 2000, 2001, AND 2004 No date: PREOP PLACEMENT NEEDLE LOC 02/24/08: STEREOTACTIC CORE BIOPSY Comment: LEFT - benign Current Outpatient Medications on [...] atorvastatin (LIPITOR) 40 mg tablet Take 1 (more content not included)... Normal [facility] EXERCISE-6 MIN. WALKon 08-13 Ivan Quan MD 08/14/2023 5:11 PM - 08/14/2023 6MWT: on Room Air. Dx: dyspnea - pt. walked for 6 minutes, for a distance of 400 ft (6MWD 122 m). - Baseline SpO2 at rest on room air: 98%. - Significant oxygen desaturation while walking: mild; lowest spO2 93% at 2 min; post-test spO2 96%. - Dyspnea: NO, highest Mod. Chad Dyspnea Scale Score: 0. IMPRESSION: Exercise limitation: YES. Required or Qualified for Oxygen Supplementation: NO. [facility] No Panel Informationon 08-13 [facility] PFT COMPLETEon 08-14-2023 Ivan Quan MD 08/14/2023 5:38 PM 08/14/2023 Kylie Russo is a 78 y.o. female, Date of :1945. Dx: Pulmonary Fibrosis, dyspnea. Ht 63 in, Wt 183 lbs. Smoker: no. Medications not listed. Pt efforts: good. Data appear acceptable and reproducible: fair. Albuterol given for postbronchodilator spirometry. Procedure: Pulmonary Function Test Complete PFT including spirometry, spirometry with bronchodilator response, lung volumes, Diffusion capacity and Flow Volume Loop were performed during this session. Impression: - 08/14/2023 PFT: - Spirometry - NORMAL, FEV1/FVC 83%, FEV1 2.04L 105% predicted, FVC 2.45L 94% predicted - Significant increase/response to bronchodilator: NO response during this testing (this does not preclude clinical benefit from bronchodilators). - Lung Volume - MILD RESTRICTION (probably extraparenchymal cause; e.g., body habitus), w/ MILDLY REDUCED TLC 3.40L 75% predicted, RV 0.90L 47% predicted. - Diffusing Capacity: MILDLY REDUCED DLCO 71% predicted, DL/VA 112% (which normalizes when adjusted for lung volume, suggesting probably extraparenchymal cause). Results do not exclude clinical diagnosis of asthma, reactive airway disease. Please correlate clinically. SEE SCANNED PFT RESULTS FOR DETAILS. (The above report was entered in part using voice recognition medical dictation software. Although I have reviewed this report for accuracy, certain words and phrases may not be entered as intended. Please excuse typographical and grammatical errors.) [facility] ALANINE AMINOTRANSFERASE / S [facility] 07-31-2023 ALT [Catalytic activity/Vol] 19 U/L 7 - 38 U/L [facility] ALBUMINon 07-31-2023 Albumin [Mass/Vol] 3.8 g/dL Low 3.9 - 4.9 g/dL [facility] ASPARTATE [facility]ANSFERASE[facility] AST [Catalytic activity/Vol] 26 U/L 13 - 35 U/L [facility] CBC W Auto Differential pane l (Bld)on 07-31-2023 Basophils (Bld) [#/Vol] 0.03 10*3/uL <0.11 k/uL [facility] Basophils/100 WBC (Bld) 0.5 % C [facility] Differential cell count method Nom (Bld) Auto [facility] Eosinophils (Bld) [#/Vol] 0.10 10*3/uL <0.46 k/uL [facility] Eosinophils/100 WBC (Bld) 1.5 % [facility] Erythrocyte distribution width (RBC) [Ratio] 12.7 % 11.5 - 15.0 % [facility] Hematocrit (Bld) [Volume fraction] 37.6 % 36.0 - 46.0 % [facility] Hemoglobin (Bld) [Mass/Vol] 12.9 g/dL 11.5 - 15.5 g/dL [facility] Immature granulocytes (Bld) [#/Vol] <0.10 k/uL [facility] Immature granulocytes/100 WBC (Bld) 0.3 % [facility] Lymphocytes (Bld) [#/Vol] 1.45 10*3/uL 1.00 - 4.00 k/uL [facility] Lymphocytes/100 WBC (Bld) 22.2 % [facility] MCH (RBC) [Entitic mass] 32.7 pg 26. 0 - 34.0 pg [facility] MCHC (RBC) [Mass/Vol] 34.3 g/dL 30.5 - 36.0 g/dL [facility] MCV (RBC) [Entitic vol] 95.2 fL 80.0 - 100.0 fL [facility] Monocytes (Bld) [#/Vol] 0.75 10*3/uL <0.87 k/uL [facility] Monocytes/100 WBC (Bld) 11.5 % C [facility] Neutrophils (Bld) [#/Vol] 4.19 10*3/uL 1.45 - 7.50 k/uL [facility] Neutrophils/100 WBC (Bld) 64.0 % [facility] Nucleated RBC (Bld) [#/Vol] <0.01 k/uL [facility] Nucleated RBC/100 WBC (Bld) [Ratio] 0.0 /100 WBC [facility] Platelet mean volume (Bld) [Entitic vol] 11.4 fL 9.0 - 12.7 fL [facility] Platelets (Bld) [#/Vol] 206 10*3/uL 150 - 400 k/uL [facility] RBC (Bld) [#/Vol] 3.95 10*6/uL 3.90 - 5.20 m/uL [facility] WBC (Bld) [#/Vol] 6.54 10*3/uL 3.70 - 11.00 k/uL [facility] CREATININE BLDon 07-31-2023 Creatinine [Mass/Vol] 0.70 mg/dL 0.58 - 0.96 mg/dL [facility] Estimated Glomerular Filtration Rate 90 mL/min/1.73m >=60 mL/min/1.7 3m [facility] DXA-AXIAL SKELETONon 023 LOWEST T-SCORE -0.9 [facility] Basophil percentageOrdered B y: Flori Keller on 02-11-2023 Glucose [Mass/Vol] 61 mg/dL 74-106 [facility] No Panel InformationOrdered By: Flori Keller on 02-11-2023 C-Peptide < 0.1 ng/mL 1.1-4.4 [facility] Comment on above: C-Peptide reference interval is for fasting patients.Performed at: [facility] [address] [id number] Director: Oswaldo Pascal PhD, Phone: [phone] Laboratory - Hematology and Cell countson 01-26-2023 HbA1c (Bld) [Mass fraction] 6.9 % 4.2-6.[address] [facility] [address] Chest WO contraston 12-04 IMPRESSION: 1. There is a basilar and peripheral predominant mild interstitial lung disease, compatible with a probable UIP pattern, without findings to suggest an alternative diagnosis. 2. Heavily calcified coronary arteries as above. Regarding coronary artery calcium, there is a growing consensus that reports for nongated low dose chest CT should include assessment of coronary artery calcium. A simple visual assessment, mild, moderate, or heavy coronary artery calcium is comparable to a Agatston scoring and strongly associated with outcomes ( related to coronary artery disease and all cause mortality). Mild is defined as isolated flecks in the coronary distribution (Agatston score <100). Heavy implies continuous or lengthy coronary artery calcium (Agatston score >1000). Moderate is for patients falling between these two extremes (Agatston score 101-1000). https://pubs.rsna.org/doi /abs/10.1148/radiol.57959 062 RADIOLOGY EXAMINATION: CT CHES T WITHOUT CONTRAST HISTORY:Shortness of breath COMPARISON: None. TECHNIQUE: CT examination of the chest without IV contrast. Coronal and sagittal reformations were performed. Dose reduction techniques were achieved by using automated exposure control and/or adjustment of mA and/or kV according to patient size and/or use of iterative reconstruction technique. AI TECHNOLOGY: This study was processed using [employer] CT Technology. No prior found. Current Lung Volume: 2.10 liters (right), 1.50 liters (left) No findings. FINDINGS: Heart size is normal. Markedly severe coronary calcification. There is mitral annular calcification. There is aortic valve calcification. No pericardial effusion. Normal thoracic vasculature. No thoracic lymphadenopathy. Central tracheobronchial tree is patent. No pleural effusion or pneumothorax. There is mild subpleural reticular abnormality in the lungs with a basilar and peripheral predominance. There is no honeycombing. There is mild bronchiectasis in the lung bases and midlungs. No significant nodules. No significant mosaic attenuation. Bones and soft tissues: No suspicious bone findings. Multilevel degenerative changes of the thoracic spine. Partially imaged upper abdomen: Limited. Heavily calcified splenic artery and gastroduodenal artery and renal vascular calcifications, often seen with diabetes. RADIOLOGY Jason Rabago MD - 12/04/2022 EXAMINATION: CT CHEST WITHOUT CONTRAST HISTORY:Shortness of breath COMPARISON: None. TECHNIQUE: CT examination of the chest without IV contrast. Coronal and sagittal reformations were performed. Dose reduction techniques were achieved by using automated exposure control and/or adjustment of mA and/or kV according to patient size and/or use of iterative reconstruction technique. AI TECHNOLOGY: This study was processed using [employer] CT Technology. No prior found. Current Lung Volume: 2.10 liters (right), 1.50 liters (left) No findings. FINDINGS: Heart size is normal. Markedly severe coronary calcification. There is mitral annular calcification. There is aortic valve calcification. No pericardial effusion. Normal thoracic vasculature. No thoracic lymphadenopathy. Central tracheobronchial tree is patent. No pleural effusion or pneumothorax. There is mild subpleural reticular abnormality in the lungs with a basilar and peripheral predominance. There is no honeycombing. There is mild bronchiectasis in the lung bases and midlungs. No significant nodules. No significant mosaic attenuation. Bones and soft tissues: No suspicious bone findings. Multilevel degenerative changes of the thoracic spine. Partially imaged upper abdomen: Limited. Heavily calcified splenic artery and gastroduodenal artery and renal vascular calcifications, often seen with diabetes. IMPRESSION IMPRESSION: 1. There is a basilar and peripheral predominant mild interstitial lung disease, compatible with a probable UIP pattern, without findings to suggest an alternative diagnosis. 2. Heavily calcified coronary arteries as above. Regarding coronary artery calcium, there is a growing consensus that reports for nongated low dose chest CT should include assessment of coronary artery calcium. A simple visual assessment, mild, moderate, or heavy coronary artery calcium is comparable to a Agatston scoring and strongly associated with outcomes ( related to coronary artery disease and all cause mortality). Mild is defined as isolated flecks in the coronary distribution (Agatston score <100). Heavy implies continuous or lengthy coronary artery calcium (Agatston score >1000). Moderate is for patients falling between these two extremes (Agatston score 101-1000). https://pubs.rsna.org/doi /abs/10.1148/radiol.48644 062 [facility] Radiology Study observation (narrative) [facility] CT Chest WO contrastOrdered By: Jason Rabago on 12-04-2022 [facility] Work Phone: Cardiac echo study Procedure on 12-04-2022 APPR BLADE REPORT Other Information Study Quality: Technically Difficult. Technically limited study due to body habitus, inability to position patient. Conclusion Left Ventricle : Mild concentric left ventricular hypertrophy. Mild diastolic dysfunction is present (impaired relaxation pattern). The left ventricular systolic function is normal. The left ventricular ejection fraction is within the normal range. There is normal LV segmental wall motion. LVEF is 65-70%. Right Ventricle : The right ventricle is normal size. The right ventricular systolic function is normal. Atria : Left atrium is mildly dilated. Aortic Valve : Aortic valve is trileaflet. Moderate aortic valve sclerosis. Aortic valve leaflets are sclerotic with decreased opening. Mild aortic stenosis. Calculated DIMITRIS by the continuity equation is 1.58 cm2. Peak aortic valve gradient is 21.58 mmHg. Highest mean aortic valve gradient is 11.6 mmHg. No aortic regurgitation is present. Mitral Valve : Moderate mitral annular calcification. Mitral valve leaflets are mildly thickened. Trace mitral regurgitation. No evidence of mitral valve stenosis. Tricuspid Valve : Mild tricuspid regurgitation. No pulmonary hypertension. Left Ventricle The left ventricle is normal size. The left ventricular systolic function is normal. The left ventricular ejection fraction is within the normal range. Mild concentric left ventricular hypertrophy. There is normal LV segmental wall motion. Mild diastolic dysfunction is present (impaired relaxation pattern). There is no ventricular septal defect visualized. No left ventricle thrombus noted on this study. LVEF is 65-70%. Right Ventricle The right ventricle is normal size. The right ventricular systolic function is normal. There is normal right ventricular wall thickness. Atria Left atrium is mildly dilated. The right atrium size is normal. The interatrial septum is intact with no evidence for an atrial septal defect. Aortic Valve Aortic valve is trileaflet. Moderate aortic valve sclerosis. Aortic valve leaflets are sclerotic with decreased opening. Mild aortic stenosis. Calculated DIMITRIS by the continuity equation is 1.58 cm2. Peak aortic valve gradient is 21.58 mmHg. Highest mean aortic valve gradient is 11.6 mmHg. No aortic regurgitation is present. Cannot exclude aortic valve vegetation. Mitral Valve Moderate mitral annular calcification. Mitral valve leaflets are mildly thickened. No evidence of mitral valve stenosis. Trace mitral regurgitation. There is no evidence of mitral valve vegetations. There is no evidence of mitral valve prolapse. Tricuspid Valve The tricuspid valve is normal in structure. There is no tricuspid valve stenosis. Mild tricuspid regurgitation. No pulmonary hypertension. There is no tricuspid valve vegetations. Pulmonic Valve The pulmonary valve is normal in structure. There is no pulmonic valvular stenosis. There is no pulmonic valvular regurgitation. There is no pulmonic valve vegetations. Great Vessels The aortic root is normal in size. The pulmonary artery is normal. The ascending aorta is normal in size. IVC is normal in size and collapses >50% with inspiration. Pericardium There is no pericardial effusion. There is no pleural effusion. EXAM: Comprehensive 2D, Doppler, and color-flow Echocardiogram Imaging system used: echoecho Echo Enhancing Agent Comments: Patient refused Definity. 2D Dimensions IVSd 1.2 cm F: 0.6-0.9 LVEF (Visual) 83.10 % PWd 1.0 cm F: 0.6 - 0.9 LA Volume 40.7 mL LVDd 4.0 cm F: 3.8 - 5.2 LA Volume Index 20.87 mL/m2 (M/F) 16-34 LVDs 1.94 cm F: 2.2 - 3.5 RV Major 3.48 cm Aortic Root 2.52 cm F: 2.7 - 3.3 RV Minor 8.04 cm Aortic Root Index 1.3 cm/m2 RVIDd 3.03 cm (M/F) 2.5-4.1 Ascending Aorta 2.68 cm F: 2.3 - 3.1 Right Atrium 4.6 cm (M/F) 2.9-4.5 Ascending Aorta Index: 1.4 cm/m2 Left Atrium 4.32 cm F: 2.7 - 3.8 LVOT 1.94 cm (M/F) 1.5-2.5 TAPSE 1.9 >1.7 cm LV Diastology Septal E' 0.07 (<.07 m/s) LAT E' 0.06 (<.10 m/s) Aortic Valve LVOT Max 1.27 (0.7-1.1 m/s) LVOT VTI 30.98 cm AV DI 0.53 (>0.25) AV Vmean 1.59 m/s AO Peak GR. 21.58 mmHg AO Mean GR. 11.60 (<5 mmHg) AO VTI 58.1 (18-25 cm) DIMITRIS (VTI) 1.58 (2.5-4.5 cm2) Mitral Valve MVA VTI 2.1 (4.0-6.0 cm2) MV A Velocity 1.26 (0.4-1.3 m/s) MV Vmean 0.66 m/s MV Mean Gr. 2.14 (<2mmHg) MV PHT 94.91 ms MVA PHT 2.32 cm2 MV Decel. Time 337.80 (160-240 ms) Tricuspid Valve TR P. Velocity 2.64 m/s RAP Estimate 3 mmHg RVSP 30.89 mmHg TR maxPG 27.89 mmHg CARDIOLOGY Nguyễn Barajas II, MD - 12/04/2022 APPROVED REPORT Other Information Study Quality: Technically Difficult. Technically limited study due to body habitus, inability to position patient. Conclusion Left Ventricle : Mild concentric left ventricular hypertrophy. Mild diastolic dysfunction is present (impaired relaxation pattern). The left ventricular systolic function is normal. The left ventricular ejection fraction is within the normal range. There is normal LV segmental wall motion. LVEF is 65-70%. Right Ventricle : The right ventricle is normal size. The right ventricular systolic function is normal. Atria : Left atrium is mildly dilated. Aortic Valve : Aortic valve is trileaflet. Moderate aortic valve sclerosis. Aortic valve leaflets are sclerotic with decreased opening. Mild aortic stenosis. Calculated DIMITRIS by the continuity equation is 1.58 cm2. Peak aortic valve gradient is 21.58 mmHg. Highest mean aortic valve gradient is 11.6 mmHg. No aortic regurgitation is present. Mitral Valve : Moderate mitral annular calcification. Mitral valve leaflets are mildly thickened. Trace mitral regurgitation. No evidence of mitral valve stenosis. Tricuspid Valve : Mild tricuspid regurgitation. No pulmonary hypertension. Left Ventricle The left ventricle is normal size. The left ventricular systolic function is normal. The left ventricular ejection fraction is within the normal range. Mild concentric left ventricular hypertrophy. There is normal LV segmental wall motion. Mild diastolic dysfunction is present (impaired relaxation pattern). There is no ventricular septal defect visualized. No left ventricle thrombus noted on this study. LVEF is 65-70%. Right Ventricle The right ventricle is normal size. The right ventricular systolic function is normal. There is normal right ventricular wall thickness. Atria Left atrium is mildly dilated. The right atrium size is normal. The interatrial septum is intact with no evidence for an atrial septal defect. Aortic Valve Aortic valve is trileaflet. Moderate aortic valve sclerosis. Aortic valve leaflets are sclerotic with decreased opening. Mild aortic stenosis. Calculated DIMITRIS by the continuity equation is 1.58 cm2. Peak aortic valve gradient is 21.58 mmHg. Highest mean aortic valve gradient is 11.6 mmHg. No aortic regurgitation is present. Cannot exclude aortic valve vegetation. Mitral Valve Moderate mitral annular calcification. Mitral valve leaflets are mildly thickened. No evidence of mitral valve stenosis. Trace mitral regurgitation. There is no evidence of mitral valve vegetations. There is no evidence of mitral valve prolapse. Tricuspid Valve The tricuspid valve is normal in structure. There is no tricuspid valve stenosis. Mild tricuspid regurgitation. No pulmonary hypertension. There is no tricuspid valve vegetations. Pulmonic Valve The pulmonary valve is normal in structure. There is no pulmonic valvular stenosis. There is no pulmonic valvular regurgitation. There is no pulmonic valve vegetations. Great Vessels The aortic root is normal in size. The pulmonary artery is normal. The ascending aorta is normal in size. IVC is normal in size and collapses >50% with inspiration. Pericardium There is no pericardial effusion. There is no pleural effusion. EXAM: Comprehensive 2D, Doppler, and color-flow Echocardiogram Imaging system used: echoecho Echo Enhancing Agent Comments: Patient refused Definity. 2D Dimensions IVSd 1.2 cm F: 0.6-0.9LVEF (Visual)83.10 % PWd 1.0 cm F: 0.6 - 0.9LA Zxuxpi15.7 mL LVDd 4.0 cm F: 3.8 - 5.2LA Volume Index20.87 mL/m2 (M/F) 16-34 LVDs 1.94 cm F: 2.2 - 3.5RV Major 3.48 cm Aortic Root 2.52 cm F: 2.7 - 3.3RV Minor8.04 cm Aortic Root Index1.3 cm/a7PZJCp3.03 cm (M/F) 2.5-4.1 Ascending Aorta 2.68 cm F: 2.3 - 3.1Right Atrium 4.6 cm (M/F) 2.9-4.5 Ascending Aorta Index: 1.4 cm/m2 Left Atrium 4.32 cm F: 2.7 - 3.8 LVOT1.94 cm (M/F) 1.5-2.5 TAPSE 1.9 >1.7 cm LV Diastology Septal E'0.07 (<.07 m/s)LAT E'0.06 (<.10 m/s) Aortic Valve LVOT Max1.27 (0.7-1.1 m/s)LVOT VTI30.98 cm AV DI0.53 (>0.25)AV Vmean 1.59 m/s AO Peak GR.21.58 mmHgAO Mean GR.11.60 (<5 mmHg) AO VTI58.1 (18-25 cm)DIMITRIS (VTI)1.58 (2.5-4.5 cm2) Mitral Valve MVA VTI 2.1 (4.0-6.0 cm2)MV A Velocity1.26 (0.4-1.3 m/s) MV Vmean0.66 m/sMV Mean Gr.2.14 (<2mmHg) MV PHT94.91 msMVA PHT2.32 cm2 MV Decel. Bwqg536.80 (160-240 ms) Tricuspid Valve TR P. Velocity2.64 m/sRAP Estimate3 mmHg RVSP30.89 mmHgTR maxPG 27.89 mmHg [facility] Radiology Study observation (narrative) [facility] Cardiac echo study Procedure Ordered By: Nguyễn Barajas on 12-04-2022 [facility] Work Phone: EXERCISE-6 MIN. WALKon 12-04 Ivan Quan MD 12/04/2022 11:48 AM 77 y.o. female; Dx: dyspnea. - 12/04/2022 [...] Required or Qualified for Oxygen Supplementation: NO. [facility] No Panel Informationon 12-04 [facility] PFT COMPLETEon 12-04-2022 Ivan Quan MD 12/04/2022 11:59 AM 12/04/2022 Kylie Russo is a 77 y.o. female, Date [...] above report was entered in part using IntroNiche recognition medical dictation software. Although I have reviewed this report for accuracy, certain words and phrases may not be entered as intended. Please excuse typographical and grammatical errors.) [facility] Laboratory - Hematology and Cell countson 11-04-2022 HbA1c (Bld) [Mass fraction] 7.3 % 4.2-6.3 [facility] JULIETTE SCREENINGon 10-27-2022 [facility] Atypical perinuclear antineu trophil cytoplasmic antibodies measurementOrdered By: Yann Garcia on 08-26-2022 Neutrophil cytoplasmic Ab.perinuclear.atypical IF (S) [Titer] <1:20 titer Neg:<1:20 [facility] Comment on above: The atypical pANCA p attern has been observed in asignificant percentage of patients with ulcerative colitis,primary sclerosing cholangitis and autoimmune hepatitis. Basophil percentageOrdered B y: Yann Garcia on 08-26-2022 Basophil percentage Not Reportable [facility] No Panel InformationOrdered By: Yann Garcia on 08-26-2022 Anti-Nuclear Antibody Screen Negative Negative [facility] Comment on above: Performed at: [address] [id number] Director: Oswaldo Pascal PhD, Phone: [phone] [employer] [facility] Antibody Not Reportable [facility] STAFFING ANALYST Antibody Not Reportable [facility] Serum DNA double strand anti body assay (units/volume)Ordered By: Yann Garcia on 08-26-2022 DNA double strand Ab Qn (S) Not Reportable [facility] Serum Tasha-1 antibody assay (u nits/volume)Ordered By: Yann Garcia on 08-26-2022 Tasha-1 extractable nuclear Ab Qn (S) Not Reportable [facility] Serum Scl-70 extractable nuc lear antibody assay (units/volume)Ordered By: Yann Garcia on 08-26-2022 SCL-70 extractable nuclear Ab Qn (S) Not Reportable [facility] Serum Rabago extractable nucl ear antibody detectionOrdered By: Yann Garcia on 08-26-2022 Rabago extractable nuclear Ab Ql (S) Not Reportable [facility] Serum classic neutrophil cyt oplasmic antibody assay (units/volume)Ordered By: Yann Garcia on 08-26-2022 Neutrophil cytoplasmic Ab.classic Qn (S) <1:20 titer Neg:<1:20 [facility] Serum cyclic citrullinated p eptide IgG antibody assay (units/volume)Ordered By: Yann Gacria on 08-26-2022 Cyclic citrullinated peptide IgG Qn 6 units 0-19 [facility] Comment on above: Negative <20 Weak po sitive 20 - 39 Moderate positive 40 - 59 Strong positive >59Performed at: [facility] [id number] Director: Oswaldo Pascal PhD, Phone: [phone] Serum perinuclear neutrophil cytoplasmic antibody titer by immunofluorescenceOrdered By: Yann Garcia on 08-26-2022 Neutrophil cytoplasmic Ab.perinuclear IF (S) [Titer] <1:20 titer Neg:<1:20 [facility] Comment on above: The presence of posi tive fluorescence exhibiting P-ANCA orC-ANCA patterns alone is not specific for the diagnosis ofWegener's Granulomatosis (WG) or microscopic polyangiitis.Decisions about treatment should not be based solely onANCA IFA results. The International ANCA Group Consensusrecommends follow up testing of positive sera with both HI-3 and MPO-ANCA enzyme immunoassays. As many as 5% serumsamples are positive only by EIA. Ref. AM J Clin [id number];111:507-513. Serum rheumatoid factor dete ctionOrdered By: Yann Garcia on 08-26-2022 Rheumatoid factor Ql (S) 24.0 IU/mL <[address] [facility] [address] CHEST W IVCON PEon 2022 [facility] XR Chest PA and Lateralon IMPRESSION: Diffuse coarsening of the lung markings and patchy infiltrates bilaterally persist. [employer] Driver: JOAQUIN Transcribe Date/Time: Aug 05 2022 12:14P Dictated by : CALVIN ANNA MD This examination was interpreted and the report reviewed and electronically signed by: CALVIN ANNA MD on Aug 05 2022 12:15PM [facility] DIVISION OF RADIOLOGY * * *Final Report* * * DATE OF EXAM: Aug 04 2022 1:38PM WOX 5291 - XR CHEST 2V FRONTAL/LAT / PROCEDURE REASON: multiple diagnoses * * * * Physician Interpretation * * * * EXAMINATION: CHEST RADIOGRAPH (2 VIEW FRONTAL & LATERAL) CLINICAL HISTORY: Shortness of breath Cough, unspecified type MQ: XC2_6 EXAM DATE/TIME: 08/04/2022 1:38 PM COMPARISON: 07/09/2022 RESULT: Lines, tubes, and devices: None. Lungs and pleura: No consolidation. No lung mass. No pleural effusion. No pneumothorax. Diffuse coarsening of the lung markings and patchy infiltrates persist. More peripheral in location. Grossly stable from the prior study Cardiomediastinal silhouette: Stable cardiomediastinal silhouette. Bones and soft tissues: Unremarkable. DIVISION OF RADIOLOGY Provider, [facility] - 08/05/2022 * * *Final Report* * * DATE OF EXAM: Aug 04 2022 1:38PM WOX 5291 - XR CHEST 2V FRONTAL/LAT / PROCEDURE REASON: multiple diagnoses * * * * Physician Interpretation * * * * EXAMINATION: CHEST RADIOGRAPH (2 VIEW FRONTAL & LATERAL) CLINICAL HISTORY: Shortness of breath Cough, unspecified type MQ: XC2_6 EXAM DATE/TIME: 08/04/2022 1:38 PM COMPARISON: 07/09/2022 RESULT: Lines, tubes, and devices: None. Lungs and pleura: No consolidation. No lung mass. No pleural effusion. No pneumothorax. Diffuse coarsening of the lung markings and patchy infiltrates persist. More peripheral in location. Grossly stable from the prior study Cardiomediastinal silhouette: Stable cardiomediastinal silhouette. Bones and soft tissues: Unremarkable. IMPRESSION IMPRESSION: Diffuse coarsening of the lung markings and patchy infiltrates bilaterally persist. [employer] Driver: JOAQUIN Transcribe Date/Time: Aug 05 2022 12:14P Dictated by : CALVIN ANNA MD This examination was interpreted and the report reviewed and electronically signed by: CALVIN ANNA MD on Aug 05 2022 12:15PM EST [facility] XR Chest PA and LateralOrder ed By: [facility] Provider on 08-05-2022 [facility] CBC W Auto Differential pane l (Bld)on 08-04-2022 Basophils (Bld) [#/Vol] 0.05 10*3/uL <0.11 k/uL [facility] Basophils/100 WBC (Bld) 0.6 % C [facility] Differential cell count method Nom (Bld) Auto [facility] Eosinophils (Bld) [#/Vol] 0.42 10*3/uL <0.46 k/uL [facility] Eosinophils/100 WBC (Bld) 5.2 % [facility] Erythrocyte distribution width (RBC) [Ratio] 13.1 % 11.5 - 15.0 % [facility] Hematocrit (Bld) [Volume fraction] 40.9 % 36.0 - 46.0 % [facility] Hemoglobin (Bld) [Mass/Vol] 13.5 g/dL 11.5 - 15.5 g/dL [facility] Immature granulocytes (Bld) [#/Vol] <0.10 k/uL [facility] Immature granulocytes/100 WBC (Bld) 0.2 % [facility] Lymphocytes (Bld) [#/Vol] 1.74 10*3/uL 1.00 - 4.00 k/uL [facility] Lymphocytes/100 WBC (Bld) 21.7 % [facility] MCH (RBC) [Entitic mass] 31.3 pg 26. 0 - 34.0 pg [facility] MCHC (RBC) [Mass/Vol] 33.0 g/dL 30.5 - 36.0 g/dL [facility] MCV (RBC) [Entitic vol] 94.7 fL 80.0 - 100.0 fL [facility] Monocytes (Bld) [#/Vol] 0.74 10*3/uL <0.87 k/uL [facility] Monocytes/100 WBC (Bld) 9.2 % [facility] Neutrophils (Bld) [#/Vol] 5.06 10*3/uL 1.45 - 7.50 k/uL [facility] Neutrophils/100 WBC (Bld) 63.1 % [facility] Nucleated RBC (Bld) [#/Vol] <0.01 k/uL [facility] Nucleated RBC/100 WBC (Bld) [Ratio] 0.0 /100 WBC [facility] Platelet mean volume (Bld) [Entitic vol] 11.5 fL 9.0 - 12.7 fL [facility] Platelets (Bld) [#/Vol] 292 10*3/uL 150 - 400 k/uL [facility] RBC (Bld) [#/Vol] 4.32 10*6/uL 3.90 - 5.20 m/uL [facility] WBC (Bld) [#/Vol] 8.03 10*3/uL 3.70 - 11.00 k/uL [facility] D-DIMERon 08-04-2022 Fibrin D-dimer FEU (PPP) [Mass/Vol] 1290 ng/mL FEU High <500 ng/mL FEU [facility] Fibrin D-dimer FEU (PPP) [Ma ss/Vol]on 08-04-2022 D Dimer Age-related Cutoff 760 ng/mL FEU [facility] XR Chest PA and Lateralon Radiology Study observation (narrative) [facility] XR Chest PA and Lateralon IMPRESSION: Small patchy opacities throughout both lungs. Please clinically correlate. [employer] Truck Driver: JOAQUIN Transcribe Date/Time: Jul 09 2022 1:31P Dictated by : CHARLES JIMENEZ MD This examination was interpreted and the report reviewed and electronically signed by: CHARLES JIMENEZ MD on Jul 09 2022 1:33PM [facility] DIVISION OF RADIOLOGY * * *Final Report* * * DATE OF EXAM: Jul 09 2022 1:24PM WOX 5291 - XR CHEST 2V FRONTAL/LAT / PROCEDURE REASON: Acute cough * * * * Physician Interpretation * * * * EXAMINATION: CHEST RADIOGRAPH (2 VIEW FRONTAL & LATERAL) CLINICAL HISTORY: Acute cough MQ: XC2_6 EXAM DATE/TIME: 07/09/2022 1:24 PM COMPARISON: Chest x-ray on 08/28/2020 RESULT: Lines, tubes, and devices: None. Lungs and pleura: There are numerous small patchy or nodular and patchy opacities throughout both lungs. No solid mass lesion identified. No large pleural effusions or pneumothorax. Cardiomediastinal silhouette: Stable cardiomediastinal silhouette. Bones and soft tissues: There are degenerative changes in the spine. DIVISION OF RADIOLOGY Provider, Phillip Norwood [facility] - 07/09/2022 * * *Final Report* * * DATE OF EXAM: Jul 09 2022 1:24PM WOX 5291 - XR CHEST 2V FRONTAL/LAT / PROCEDURE REASON: Acute cough * * * * Physician Interpretation * * * * EXAMINATION: CHEST RADIOGRAPH (2 VIEW FRONTAL & LATERAL) CLINICAL HISTORY: Acute cough MQ: XC2_6 EXAM DATE/TIME: 07/09/2022 1:24 PM COMPARISON: Chest x-ray on 08/28/2020 RESULT: Lines, tubes, and devices: None. Lungs and pleura: There are numerous small patchy or nodular and patchy opacities throughout both lungs. No solid mass lesion identified. No large pleural effusions or pneumothorax. Cardiomediastinal silhouette: Stable cardiomediastinal silhouette. Bones and soft tissues: There are degenerative changes in the spine. IMPRESSION IMPRESSION: Small patchy opacities throughout both lungs. Please clinically correlate. Sanitation Truck Driver: PSCB Transcribe Date/Time: Jul 09 2022 1:31P Dictated by : CHARLES JIMENEZ MD This examination was interpreted and the report reviewed and electronically signed by: CHARLES JIMENEZ MD on Jul 09 2022 1:33PM EST [facility] Radiology Study observation (narrative) [facility] PA and LateralOrder ed By: [facility] Provider on 07-09-2022 [facility] Urinalysis complete panel (U )on 06-10-2022 Bilirubin Ql (U) [facility] Clarity (Unsp spec) Clear Clear [facility] Color (U) Yellow Yellow [facility] Epithelial cells LM.HPF (Urine sed) [#/Area] Few [facility] Glucose Test strip (U) [Mass/Vol] 1+ Abnormal Trace, Negative [facility] Hemoglobin Ql (U) Negative Negative, Trace [facility] Hyaline casts (Urine sed) [#/Area] 4-10 /LPF Abnormal 0 /LPF [facility] Ketones Ql (U) Negative Trace, Negative [facility] Leukocyte esterase Test strip Ql (U) 250 Leonard/uL Abnormal Negative, 25 Leonard/uL [facility] Nitrite Ql (U) Negative Negative [facility] pH (U) 5.5 [pH] 5.0 - 8.0 [facility] Protein (U) [Mass/Vol] 2+ Abnormal Trace , Negative [facility] RBC LM.HPF (Urine sed) [#/Area] 0-3 /HPF 0-3 /HPF [facility] Specific gravity (U) [Rel density] 1.040 High 1.005 - 1.030 [facility] Urobilinogen Ql (U) Negative Negative [facility] WBC LM.HPF (Urine sed) [#/Area] 11-25 /HPF Abnormal 0-5 /HPF [facility] HEMOGLOBIN A1C (POC)on 06-09 HbA1c (Bld) [Mass fraction] 7.1 % Abnormal 4.2 - 5.6 % [facility] UA DIP, URINE (POC)on 2022 BILIRUBIN UA (POCT) Negative Negative [facility] CLARITY UA (POCT) Clear [facility] COLOR UA (POCT) Dark yellow [facility] GLUCOSE UA (POCT) Negative Negative mg/dL [facility] HEMOGLOBIN/BLOOD UA (POCT) Negative Negative [facility] KETONE UA (POCT) Negative Negative mg/dL [facility] LEUKOCYTES UA (POCT) Negative Negative [facility] NITRITE UA (POCT) Negative Negative [facility] PH UA (POCT) 5.0 4.5 - 8.0 [facility] Protein Ql (U) 100 mg/dL Abnormal Negative mg/dL [facility] SPECIFIC GRAVITY UA (POCT) >=1.030 1.005 - 1.030 [facility] UROBILINOGEN UA (POCT) 0.2 E.U./dL Doreen l E.U./dL [facility] No Panel Informationon 12-04 Miscellaneous Test See comment [facility] Work Phone: Comment on above: TESTING PERFORMED AT [facility]. ORIGINAL REPORT ON FILE IN LAB CONTAINS ADDITIONAL TEST SITE INFORMATION. TEST RESULT LIMITSIBD Expanded PanelgASCA 48 units 0-50 Negative <45 Equivocal 45 - 50 Positive >50ACCA 23 units 0-90 Negative <80 Equivocal 80 - 90 Positive >19NOZO09 30 units 0-60 Negative <55 Equivocal 55 - 60 Positive >20WXQW09 10 units 0-100 Negative < 90 Equivocal 90 - 100 Positive >100 This test was developed and its performance characteristics determined by [facility]. It has not been cleared or approved by the Food and Drug Administration. The FDA has determined that such clearance or approval is not necessary.Atypical pANCA01 Negative NegativeCommentsPattern is not suggestive of Inflammatory Bowel Disease Laboratory - Hematology and Cell countson 10-31-2021 HbA1c (Bld) [Mass fraction] 7.1 % [facility] Work Phone: No Panel Informationon 10-22 [facility] Basic Metabolic Panlon 09-29 Anion gap [Moles/Vol] 13 mmol/L Normal 9-18 [facility] Comment on above: Performed By: #### C ARIADNE, BMP ####[facility] [address] [place] [address] Calcium [Mass/Vol] 8.7 mg/dL Normal 8.5-10.2 [facility] Comment on above: Performed By: #### C ARIADNE, BMP ####[facility] Zstvridotq7170 [address] Chloride [Moles/Vol] 108 mmol/L High 97-105 [facility] Comment on above: Performed By: #### C ARIADNE, BMP ####[facility] Kuqrimnqsr1359 [address]5[address] CO2 [Moles/Vol] 21 mmol/L Low 22-30 [facility] Comment on above: Performed By: #### C BC, BMP ####[facility] Aggzljgohu5382 [address] Creatinine [Mass/Vol] 0.83 mg/dL Normal 0.58-0.96 [facility] Comment on above: Performed By: #### C ARIADNE, BMP ####[facility] Nrpsevamro9232 [phone] eGFR- Amer. >60 Normal [facility] Comment on above: Performed By: #### C ARIADNE, BMP ####[facility] Qqhevkqpfq7062 [address]721[address] GFR/1.73 sq M predicted among non-blacks MDRD (S/P/Bld) [Vol rate/Area] mL/min/{1.73_m2} Normal [facility] Comment on above: Result Comment: eGFR (Estimated GFR) Units of measure: mL/min/1.73 meters squared eGFR is derived from the reexpressed MDRD Study equation using the following parameters: serum creatinine, age, gender and race. The creatinine assay has been calibrated to be traceable to IDMS. An eGFR <60 mL/min/1.73m2 for >3 months is consistent with chronic kidney disease. Refer to KDOQI guidelines for clinical interpretation. In patients with unstable renal function, e.g. those with acute kidney injury, the eGFR may not accurately reflect actual GFR. Performed By: #### C ARIADNE, BMP ####[facility] Jmmnofyyub5342 [address]721[address]160 Glucose [Mass/Vol] 163 mg/dL High 74-99 [facility] Comment on above: Result Comment: The [place] Diabetes Association (ADA) provides guidance for cutoff [...] Standards of Medical Care in Diabetes 2016, [place] Diabetes Association. Diabetes Care. 2016.39(Suppl 1). Performed By: #### C ARIADNE, BMP ####[facility] Kgznhbdpyt0759 [address]721[address] Potassium [Moles/Vol] 4.1 mmol/L Normal 3.7-5.1 [facility] Comment on above: Performed By: #### C BC, BMP ####[facility] Weoafexomt7643 [address]5160 Sodium [Moles/Vol] 142 mmol/L Normal 136-144 [facility] Comment on above: Performed By: #### C BC, BMP ####[facility] Tybvhwzbbp7330 [address]5160 Urea nitrogen [Mass/Vol] 27 mg/dL High 7-21 [facility] Comment on above: Performed By: #### C BC, BMP ####[facility] Qirqxiakgf5807 [address]5160 CASE MANAGEMon 09-30-2019 CASE MANAGEM HNO ID: [id number] Author: Cele (Rn) KING Cardona Service: ? Author Type: Registered Nurse Type: Care Mgt Progress Note Filed: 09/30/2019 4:23 PM Note Text: CARE MANAGEMENT DISCHARGE NOTE SERVICE DATE: 09/30/2019 SERVICE TIME: 4:19 PM LOS: 2 days Admission Date: 09/28/2019 DISCHARGE ARRANGEMENT (list agency and phone number) Discharge Arrangement: Home CAREGIVER ASSESSMENT: Caregiver is ready, willing and able to meet the patient's needs as recommended by the inter-professional team:: No Caregiver needed Patient's transition needs and plan for meeting these needs: Home with self care HANDOFF COMMUNICATION: Handoff to: Primary Care Physician Primary Care Physician Name/Phone: Alcira Anderson/[phone] Summary of care to Alcira Anderson MD TRANSPORTATION ARRANGEMENTS: Transportation Arrangements: No ADDITIONAL CONTACT RESOURCES: N/A Needs Prior to Discharge: None;Ready for Discharge Discharge to home today. No skilled needs identified. Spouse to transport. SIGNATURE: Cele Cardona RN PATIENT NAME: Kylie Russo DATE: September 30, 2019 TIME: 4:18 PM PAGER/CONTACT #: [phone] Normal [facility] CBCon 09-30-2019 Absolute nRBC <0.01 Normal <0.01 [facility] Comment on above: Performed By: #### C BC, BMP ####[facility] [address]uc[address] [place] [phone] Erythrocyte distribution width (RBC) [Ratio] 14.5 % Normal 11.5-15.0 [facility] Comment on above: Performed By: #### C ARIADNE, BMP ####[facility] [address]wh[address]t49[address] [place] [address] Hematocrit (Bld) [Volume fraction] 33.4 % Low 36.0-46.0 [facility] Comment on above: Performed By: #### C ARIADNE, BMP ####[facility] Lparqjenxz5346 [place] [address] Hemoglobin (Bld) [Mass/Vol] 11.0 g/dL Low 11.5-15.5 [facility] Comment on above: Performed By: #### C ARIADNE, BMP ####[facility] [address] [place] [address] MCH (RBC) [Entitic mass] 30.8 pG Normal 26.0-34.0 [facility] Comment on above: Performed By: #### Aldo RON, BMP ####[facility] Job[address]xfqt[address] [place] [address] MCHC (RBC) [Mass/Vol] 32.9 g/dL Normal 30.5-36.0 [facility] Comment on above: Performed By: #### C ARIADNE, BMP ####[facility] [address] [place] [address] MCV (RBC) [Entitic vol] 93.6 fL Normal 80.0-100.0 M [facility] Comment on above: Performed By: #### Aldo RON, BMP ####[facility] N[address]uppl[address] [place] [address] Platelet mean volume (Bld) [Entitic vol] 11.7 fL Normal 9.0-12.7 [facility] Comment on above: Performed By: #### C ARIADNE, BMP ####[facility] [address]dybje5059 [place] [phone] Platelets (Bld) [#/Vol] 185 10*3/uL Normal 150-400 [facility] Comment on above: Performed By: #### Aldo RON, BMP ####[facility] Dbzzpnnsdo5845 [place] [address] RBC (Bld) [#/Vol] 3.57 10*6/uL Low 3.90-5.20 [facility] Comment on above: Performed By: #### C BC, BMP ####[facility] J[address]imagdyz7296 [place] [phone] WBC (Bld) [#/Vol] 5.78 10*3/uL Normal 3.70-11.00 [facility] Comment on above: Performed By: #### C BC, BMP ####[facility] Cgtmivayxy9149 [place] [phone] NURSING PROGon 09-30-2019 NURSING PROG HNO ID: [id number] Author: Leticia (Rn) KING Mendez Service: ? Author Type: Registered Nurse Type: Nursing Progress Note Filed: 09/30/2019 12:04 PM Note Text: Nursing Progress Note Patient Name: Kylie Russo Patient Location: [place] [address] [address] Dr. Hilliard notified of hypoglycemic event and insulin pump being restarted. No new orders. This note was completed by: Leticia Mendez RN [facility] NURSING PROG HNO ID: [id number] Author: Cierra FerrellRn) KING Wallace Service: Nursing Author Type: Registered Nurse Type: Nursing Progress Note Filed: 09/30/2019 12:32 AM Note Text: 2330 - Patient woken to administer mirapex. She states she feel sweaty and thinks her blood sugar should be checked. FSBG 44, 240mL orange juice given. Patient also noted to be lethargic. 0000 - Blood sugar rechecked and increased to 46. 25mL d50 given via IVP. 0030 - Blood sugar up to 114. Normal [facility] PLAN OF CAREon 09-30-2019 PLAN OF CARE HNO ID: [id number] Author: Daniele Hilliard MD Service: Endocrinology Author Type: Physician Type: Plan of Care Filed: 09/30/2019 8:48 AM Note Text: Endocrinology Plan of Care Note OK to restart insulin pump this morning Discharge to home after that. Dr. Hilliard [facility] PT EDon 09-30-2019 PT ED HNO ID: [id number] Author: Clinton (Rn) KING Bess Service: Diabetes Education Author Type: Registered Nurse Type: Patient Education Filed: 09/30/2019 11:30 AM Note Text: DIABETES EDUCATION PROGRESS NOTE SERVICE DATE: 09/30/2019 SERVICE TIME: 11:15 Assisted pt with restart of the insulin pump (pt did not have the auto-sap bobj developer, so infusion set placed by hand). Per nurse, pt received Lantus yesterday around 1:40pm - so Basal Rate reduced to 5% for next three hours to avoid facilitating hypoglycemia. Nurse was at bedside with pt, she had a finger stick glucose of 70 mg/dL and she had consumed an orange juice when I left her. SIGNATURE: Clinton Bess RN PATIENT NAME: Kylie Russo DATE: September 30, 2019 TIME: 11:27 AM PAGER: [phone] [facility] B-Hydroxybutyrateon 09-29-19 20 B-Hydroxybutyrate >4.50 High <0.28 [facility] Comment on above: Performed By: #### B HB ####[facility] [address] [place] [address] Basic Metabolic Panlon 09-28 Anion gap [Moles/Vol] 15 mmol/L Normal 9-18 [facility] Comment on above: Performed By: #### B MP ####[facility] [address] [place] [address] Calcium [Mass/Vol] 8.6 mg/dL Normal 8.5-10.2 [facility] Comment on above: Performed By: #### B MP ####[facility] Nhfdswkkuq45[address] [place] [address] Chloride [Moles/Vol] 102 mmol/L Normal 97-105 [facility] Comment on above: Performed By: #### B MP ####[facility] Svmxmnzhqo9608 [place] [phone] CO2 [Moles/Vol] 21 mmol/L Low 22-30 [facility] Comment on above: Performed By: #### B MP ####[facility] Fzbvsvjjyl8330 [address]721[address] Creatinine [Mass/Vol] 0.95 mg/dL Normal 0.58-0.96 [facility] Comment on above: Performed By: #### B MP ####[facility] Gwminfcopr1737 [address]721[address] eGFR- Amer. >60 Normal [facility] Comment on above: Performed By: #### B MP ####[facility] Joahtjdwbm9415 [address] GFR/1.73 sq M predicted among non-blacks MDRD (S/P/Bld) [Vol rate/Area] 58 . Normal [facility] Comment on above: Result Comment: eGFR (Estimated GFR) Units of measure: mL/min/1.73 meters squared eGFR is derived from the reexpressed MDRD Study equation using the following parameters: serum creatinine, age, gender and race. The creatinine assay has been calibrated to be traceable to IDMS. An eGFR <60 mL/min/1.73m2 for >3 months is consistent with chronic kidney disease. Refer to KDOQI guidelines for clinical interpretation. In patients with unstable renal function, e.g. those with acute kidney injury, the eGFR may not accurately reflect actual GFR. Performed By: #### B MP ####[facility] Lvhldgmvpz4918 [address]5160 Glucose [Mass/Vol] 544 mg/dL High 74-99 [facility] Comment on above: Result Comment: The [place] Diabetes Association (ADA) provides guidance for cutoff [...] Standards of Medical Care in Diabetes 2016, [place] Diabetes Association. Diabetes Care. 2016.39(Suppl 1). Urgent value previously called 09/29/19 00:18 Performed By: #### B MP ####[facility] [address]yai32[address] [place] [address] Potassium [Moles/Vol] 4.9 mmol/L Normal 3.7-5.1 [facility] Comment on above: Performed By: #### B MP ####[facility] [address] [place] [address] Sodium [Moles/Vol] 138 mmol/L Normal 136-144 [facility] Comment on above: Performed By: #### B MP ####[facility] [address]af[address]rrbm[address] [place] [address] Urea nitrogen [Mass/Vol] 33 mg/dL High 7-21 [facility] Comment on above: Performed By: #### B MP ####[facility] [address]rag[address] [place] [address] Anion gap [Moles/Vol] 14 mmol/L Normal 9-18 [facility] Comment on above: Performed By: #### B MP ####[facility] X[address] [place] [address] Calcium [Mass/Vol] 9.3 mg/dL Normal 8.5-10.2 [facility] Comment on above: Performed By: #### B MP ####[facility] Srqooeihen[address] [place] [address] Chloride [Moles/Vol] 110 mmol/L High 97-105 [facility] Comment on above: Performed By: #### B MP ####[facility] Iwyos[address]cgq[address] [place] [address] CO2 [Moles/Vol] 22 mmol/L Normal 22-30 [facility] Comment on above: Performed By: #### B MP ####[facility] Irvyiplaqu[address] [place] [address] Creatinine [Mass/Vol] 1.06 mg/dL High 0.58-0.96 [facility] Comment on above: Performed By: #### B MP ####[facility] [address] [place], [place] [phone] eGFR- Amer. >60 Normal [facility] Comment on above: Performed By: #### B MP ####[facility] [address]pfv[address] [place] [address] GFR/1.73 sq M predicted among non-blacks MDRD (S/P/Bld) [Vol rate/Area] 51 . Normal [facility] Comment on above: Result Comment: eGFR (Estimated GFR) Units of measure: mL/min/1.73 meters squared eGFR is derived from the reexpressed MDRD Study equation using the following parameters: serum creatinine, age, gender and race. The creatinine assay has been calibrated to be traceable to IDMS. An eGFR <60 mL/min/1.73m2 for >3 months is consistent with chronic kidney disease. Refer to KDOQI guidelines for clinical interpretation. In patients with unstable renal function, e.g. those with acute kidney injury, the eGFR may not accurately reflect actual GFR. Performed By: #### B MP ####[facility] Pyriqwiqks7827 [address]721[address] Glucose [Mass/Vol] 143 mg/dL High 74-99 [facility] Comment on above: Result Comment: The [place] Diabetes Association (ADA) provides guidance for cutoff [...] Standards of Medical Care in Diabetes 2016, [place] Diabetes Association. Diabetes Care. 2016.39(Suppl 1). Performed By: #### B MP ####[facility] Keqethcbsm2733 [address]721[address] Potassium [Moles/Vol] 4.1 mmol/L Normal 3.7-5.1 [facility] Comment on above: Performed By: #### B MP ####[facility] Zotmvathid7197 [address]721[address] Sodium [Moles/Vol] 146 mmol/L High 136-144 [facility] Comment on above: Performed By: #### B MP ####[facility] Yeehediiwv6909 [address]721[address] Urea nitrogen [Mass/Vol] 37 mg/dL High 7-21 [facility] Comment on above: Performed By: #### B MP ####[facility] Sovypfsltg7064 [place] [address] Anion gap [Moles/Vol] 12 mmol/L Normal 9-18 [facility] Comment on above: Performed By: #### B MP ####[facility] Ogcpybwwam5884 [place] [phone] Calcium [Mass/Vol] 8.7 mg/dL Normal 8.5-10.2 [facility] Comment on above: Performed By: #### B MP ####[facility] Jvribntbdb5027 [place] [phone] Chloride [Moles/Vol] 110 mmol/L High 97-105 [facility] Comment on above: Performed By: #### B MP ####[facility] [address]eqs[address] [place] [address] CO2 [Moles/Vol] 22 mmol/L Normal 22-30 [facility] Comment on above: Performed By: #### B MP ####[facility] Cqoculbkbv6752 [place] [phone] Creatinine [Mass/Vol] 0.95 mg/dL Normal 0.58-0.96 [facility] Comment on above: Performed By: #### B MP ####[facility] Fyiqnyvatb0032 [place] [phone] eGFR- Amer. >60 Normal [facility] Comment on above: Performed By: #### B MP ####[facility] [address] [place], [place] [address] GFR/1.73 sq M predicted among non-blacks MDRD (S/P/Bld) [Vol rate/Area] 58 . Normal [facility] Comment on above: Result Comment: eGFR (Estimated GFR) Units of measure: mL/min/1.73 meters squared eGFR is derived from the reexpressed MDRD Study equation using the following parameters: serum creatinine, age, gender and race. The creatinine assay has been calibrated to be traceable to IDMS. An eGFR <60 mL/min/1.73m2 for >3 months is consistent with chronic kidney disease. Refer to KDOQI guidelines for clinical interpretation. In patients with unstable renal function, e.g. those with acute kidney injury, the eGFR may not accurately reflect actual GFR. Performed By: #### B MP ####[facility] Z[address]qlghl4784 [place] [address] Glucose [Mass/Vol] 183 mg/dL High 74-99 [facility] Comment on above: Result Comment: The [place] Diabetes Association (ADA) provides guidance for cutoff [...] Standards of Medical Care in Diabetes 2016, [place] Diabetes Association. Diabetes Care. 2016.39(Suppl 1). Performed By: #### B MP ####[facility] Iqfxrbjgpu0446 [place] [address] Potassium [Moles/Vol] 4.0 mmol/L Normal 3.7-5.1 [facility] Comment on above: Performed By: #### B MP ####[facility] [address]iyl[address] [place] [address] Sodium [Moles/Vol] 144 mmol/L Normal 136-144 [facility] Comment on above: Performed By: #### B MP ####[facility] Jloqbgaiqf0233 [place] [address] Urea nitrogen [Mass/Vol] 34 mg/dL High 721 [facility] Comment on above: Performed By: #### B MP ####[facility] Qhivkawbcq9176 [place] [address] Anion gap [Moles/Vol] 30 mmol/L High 9-18 [facility] Comment on above: Performed By: #### B MP ####[facility] Lsgcfzldkj9132 [place] [address] Calcium [Mass/Vol] 9.7 mg/dL Normal 8.5-10.2 [facility] Comment on above: Performed By: #### B MP ####[facility] Zettebbpnd7876 [address] Chloride [Moles/Vol] 96 mmol/L Low 97-105 [facility] Comment on above: Performed By: #### B MP ####[facility] Mlzswbtvux2575 [place] [phone] CO2 [Moles/Vol] 12 mmol/L Low 22-30 [facility] Comment on above: Performed By: #### B MP ####[facility] Otmskduxkq2776 [place] [phone] Creatinine [Mass/Vol] 0.92 mg/dL Normal 0.58-0.96 [facility] Comment on above: Performed By: #### B MP ####[facility] Fhpaeufniy6588 [place] [phone] eGFR- Amer. >60 Normal [facility] Comment on above: Performed By: #### B MP ####[facility] Ijpklodbfl8087 [place] [phone] GFR/1.73 sq M predicted among non-blacks MDRD (S/P/Bld) [Vol rate/Area] 60 . Normal [facility] Comment on above: Result Comment: eGFR (Estimated GFR) Units of measure: mL/min/1.73 meters squared eGFR is derived from the reexpressed MDRD Study equation using the following parameters: serum creatinine, age, gender and race. The creatinine assay has been calibrated to be traceable to IDMS. An eGFR <60 mL/min/1.73m2 for >3 months is consistent with chronic kidney disease. Refer to KDOQI guidelines for clinical interpretation. In patients with unstable renal function, e.g. those with acute kidney injury, the eGFR may not accurately reflect actual GFR. Performed By: #### B MP ####[facility] Xjtfyawxxe2802 [address] Glucose [Mass/Vol] 591 mg/dL High 74-99 [facility] Comment on above: Result Comment: The [place] Diabetes Association (ADA) provides guidance for cutoff [...] Standards of Medical Care in Diabetes 2016, [place] Diabetes Association. Diabetes Care. 2016.39(Suppl 1). Called to and read back by: Nora GE [facility] 09/29/19 0018 John Performed By: #### B MP ####[facility] Xfxavjqhyi3753 [place] [address] Potassium [Moles/Vol] 4.3 mmol/L Normal 3.7-5.1 [facility] Comment on above: Performed By: #### B MP ####[facility] [address] [place] [address] Sodium [Moles/Vol] 138 mmol/L Normal 136-144 [facility] Comment on above: Performed By: #### B MP ####[facility] Lnssghqsql0285 [place] [address] Urea nitrogen [Mass/Vol] 33 mg/dL High 7-21 [facility] Comment on above: Performed By: #### B MP ####[facility] [address]pyc[address] [place] [address] CASE MANAGEMon 09-29-2019 CASE MANAGEM HNO ID: [id number] Author: Sheila (King) KING Perez Service: ? Author Type: Registered Nurse Type: Care Mgt Progress Note Filed: 09/29/2019 11:21 AM Note Text: CARE MANAGEMENT PROGRESS NOTE SERVICE DATE: 09/29/2019 SERVICE TIME: 11:18 AM LOS: 1 day IMM Follow Up Copy Given: Yes Copy given to:: Patient Method: In Person KING HARO met with patient to discuss discharge planning. Patient confirms that she will be returning home with her at discharge. She denies any discharge needs/concerns at this time. Patient states her spouse will provide her discharge transportation. Patient informed that Care Management is available to assist with transition needs. SIGNATURE: Sheila Perez RN PATIENT NAME: Kylie Russo DATE: September 29, 2019 TIME: 11:18 AM PAGER/CONTACT #: [phone] [facility] CASE MANAGEM HNO ID: [id number] Author: Sheila (Rn) KING Perez Service: ? 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) Hyperlipidemia Essential Hypertension Coronary Artery Disease Involving [place] Coronary Artery Mild Intermittent Asthma Without Complication Other Forms of Migraine Other Psoriasis Insomnia, Unspecified Disorder of Bone and Cartilage Esophagitis Type 1 Diabetes Mellitus With Neurological Manifestations ([facility]) CARPAL TUNNEL BILATERRAL Major Depression in Remission ([facility]) Anxiety State Rheumatoid Arthritis (Hcc) Anemia, Unspecified Sleep Apnea Vitamin Deficiency Diverticulosis of Colon Cerebral Infarction ([facility]) Lumbar Disc Herniation Restless Legs Syndrome (Rls) Calcifying Tendinitis of Shoulder Venous Insufficiency Thoracic Or Lumbosacral Neuritis Or Radiculitis, Unspecified Cervicalgia Gait Abnormality Bppv (Benign Paroxysmal Positional Vertigo) Obstructive Sleep Apnea Syndrome Mixed Hyperlipidemia Gerd (Gastroesophageal Reflux Disease) Rls (Restless Legs Syndrome) Insomnia Vertigo Ataxia Following Cerebral Infarction Atherosclerosis of [place] Coronary Artery of [place] Heart Without Angina Pectoris Obesity With Serious Comorbidity 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 O2 Therapy: Nasal Cannula, Liters: 2 ICU Rounding Information: O2 2 liters NC Starting Carb Controlled Diet Insulin Drip stopped Endocrinology Consult Possible discharge today or tomorrow. Nursing: Fluid/Electrolyte Intervention(s) Plan: Daily Weights;Assess for Signs/Symptom of Dehydration and Fluid Overload;Monitor Lab Values;Monitor Line Readings / Hemodynamics Fluid/Electrolyte Goals/Outcomes: Exhibits Increased Interest and Assume Responsibility for Patient's Own/Family Learning by Beginning to Look for Information and Ask Questions Fluid/Electrolyte Goal Target Achievement Date: 10/01/19 Mobility Intervention(s) Plan: Advance Mobility;Encourage Patient/Family to Participate in Care;Energy conservation/Fatigue Management;Mobility Education for Patient/Family;Mobility Assist Device;Normalize the Environment Mobility Patient/Family Goals: Patient Identified Functional Mobility Goal (See Comment) Mobility Goal Target Achievement Date: 10/01/19 Safety Intervention(s) Plan: Assess Patient for Signs of Increasing Anxiety or Agitation;Assess Patient for Signs of Increasing Paranoia or Fear;Ensure Safe Positioning Safety Goals/Outcomes: Exhibits Increased Interest and Assume Responsibility for Patient's Own/Family Learning by Beginning to Look for Information and Ask Questions;Maintain Patient Safety Safety Goal Target Achievement Date: 10/01/19elf Care Intervention(s) Plan: Assess for Self Care Deficits;Encourage Patient/Family to Participate in Activities of Daily Living;Energy conservation/Fatigue Management;Include Patient/Family in Planning Own Self-Care Activities Self Care Goals/Outcome: Patient Will Perform Activities of Daily Living Appropriate with Physical Capabilities;Exhibits Increased Interest and Assume Responsibility for Patient's Own/Family Learning by Beginning to Look for Information and Ask Questions Self Care Goal Target Achievement Date: 10/01/19 DOCUMENTED BY: Sheila Perez RN PATIENT NAME: Kylie Russo DATE: September 29, 2019 TIME: 11:21 AM CSN: [id number] [facility] HN ID: [id number] Author: Sheila (Rn) KING Perez Service: ? Author Type: Registered Nurse Type: Care Mgt Initial Assessment Filed: 09/29/2019 11:50 AM Note Text: CARE MANAGEMENT: ASSESSMENT AND DISCHARGE PLAN SERVICE DATE: September 29, 2019 SERVICE TIME: 11:44 AM refrigerator assembler met with patient at bedside in ICU bed 2 Introduction made and role of case management explained. Patient states she is agreeable to Care Management assessment questions. Assessment information provided by electronic medical record and patient. PRIMARY CARE PHYSICIAN: ALCIRA ANDERSON MD - confirmed ADMISSION STATUS: Inpatient Needs Prior to Discharge: None MEDICAL: MEDICARE A AND B Patient/Counseling Program Leader Stated Goals: To have reduction in symptoms;To return home to life as it was Health Insurance: Medicare;[place] Health Issues Impacting Discharge Plan: Uncontrolled;Chronic Uncontrolled: Blood Sugar - DKA Chronic: DM1 insulin Pump - Cerebral Infarction - Asthma - HLD - CAD - RA Last Discharge Date: 11/10/18 Is this Within the Past 30 days? Last discharge within 30 days: No Advance Directive: Current Advance Directive: Health Care Power of Medication Nurse;Living Will In Chart: Yes Up To Date and Valid: Yes Health LiteracyHow often do you need to have someone help you when you read instructions, pamphlets, or other written material from your doctor or pharmacy? : 1 - Never How confident are you filling out medical forms by yourself?: 1 - Extremely Baseline Mental Status Prior to this Illness what was the patient's Baseline Mental Status?: Alert AND Oriented Prior to this illness, has anyone described the patient having any of the following behaviors?: Not Applicable Relationship of the informant to the patient:: Self Functional Status: Independent Does Patient Currently Receive Any Community Services or Home Care?: None Equipment Prior to Admission: Cane;Rollator Scooter;Bi-level Positive Airway Pressure/Continuous Positive Airway Pressure(Lindsey Chair - Electric Wheelchair - Insulin Pump) SOCIAL: Living Arrangements: Home Lives With: Spouse 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 Resources: 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 Contact: Extended Emergency Contact Information Primary Emergency Contact: Diamond Heart Relation: Daughter Secondary Emergency Contact: Raheel Russo Relation: Spouse Supportive Patient Contact:: Yes Contact Resources: Family(Spouse and Daughter) Family Name/Phone: Spouse: Vitor Givens - [phone] and Daughter Diamond Heart [phone] Social Needs Food insecurity Worry: Not on file Inability: Not on file Resources Needed: N/A Social Needs Financial resource strain: Not on file Social Needs Transportation needs Medical: Not on file Non-medical: Not on file Caregiver AssessmentCaregiver is ready, willing and able to meet the patient's needs as recommended by the inter-professional team:: No Caregiver needed(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 She reports she lives at home with her spouse.) Does the patient have an acute stroke diagnosis, or has the patient had a stroke during this admission?: No Patient's transition needs and plan for meeting these needs: Home/self care with supportive spouse. Spouse to Transport at discharge Patient's perception of need for this admission: DKA Medication Adherance I am convinced of the importance of my prescription medication: 0 - Agree Completely I worry that my prescription medication will do more harm than good to me : 0 - Disagree Mostly I feel financially burdened by my [id number]-khkrqj expenses for my prescription medication:: 0 - Disagree Completely Risk Score: 0 Patient is categorized as: Low risk < 2(Medication Management: Self - Pharmacy Preference: [facility]) Are you interested in bedside delivery of your medications? No Is Patient Psychosocially Complex?: No ASSESSMENT AND PLAN: Medical Needs: Medical Needs: Two or more chronic diseases;Diabetes;Stroke/ Cognitive defects;Respiratory Insufficiency RT needs: (CPAP/BIPAP) Psychosocial Needs: Psychosocial Needs: Mental Health Diagnosis Mental Health Information: Anxiety FREEDOM OF CHOICE EXPLAINED: [place] of Choice Given: No(Not at provided at this time.) Reason Not Given: No placements necessary POTENTIAL TRANSITION PLANS Home/Self Care with Supportive Spouse Discharge Transportation: Spouse to Transport Patient informed CM is available to assist with transition plans. SIGNATURE: Sheila Perez RN PATIENT NAME: Kylie Russo DATE: September 29, 2019 TIME: 11:44 AM PAGER/CONTACT #: [phone] [facility] CBCon 09-29-2019 Absolute nRBC <0.01 Normal <0.01 [facility] Comment on above: Performed By: #### C BC ####[facility] [address] [place], [place] [id number] Erythrocyte distribution width (RBC) [Ratio] 14.2 % Normal 11.5-15.0 [facility] Comment on above: Performed By: #### C BC ####[facility] Utmevuqfje4504 [address] Hematocrit (Bld) [Volume fraction] 32.7 % Low 36.0-46.0 [facility] Comment on above: Performed By: #### C BC ####[facility] Rguidmsikr7135 [address] Hemoglobin (Bld) [Mass/Vol] 10.8 g/dL Low 11.5-15.5 [facility] Comment on above: Performed By: #### C BC ####[facility] Uslwgiddca6260 [address] MCH (RBC) [Entitic mass] 30.8 pG Normal 26.0-34.0 [facility] Comment on above: Performed By: #### C BC ####[facility] Gblssnqmol6355 [address] MCHC (RBC) [Mass/Vol] 33.0 g/dL Normal 30.5-36.0 [facility] Comment on above: Performed By: #### C BC ####[facility] [address] [place], [place] [id number] MCV (RBC) [Entitic vol] 93.2 fL Normal 80.0-100.0 M [facility] Comment on above: Performed By: #### C BC ####[facility] [address] [place] [id number] Platelet mean volume (Bld) [Entitic vol] 12.1 fL Normal 9.0-12.7 [facility] Comment on above: Performed By: #### C BC ####[facility] Kgbokqyqjr5541 [address] Platelets (Bld) [#/Vol] 202 10*3/uL Normal 150-400 [facility] Comment on above: Performed By: #### C BC ####[facility] Hylvugqdyv6366 [address] RBC (Bld) [#/Vol] 3.51 10*6/uL Low 3.90-5.20 [facility] Comment on above: Performed By: #### C BC ####[facility] Khwjdzgstq1383 [address] WBC (Bld) [#/Vol] 8.94 10*3/uL Normal 3.70-11.00 [facility] Comment on above: Performed By: #### C BC ####[facility] [address] [place] [id number] CONSULTon 09-29-2019 CONSULT HNO ID: [id number] Author: Daniele Hilliard MD Service: Endocrinology Author Type: Physician Type: Consults Filed: 09/29/2019 12:49 PM Note Text: ENDOCRINOLOGY CONSULTATION DATE OF CONSULTATION: September 29, 2019 REASON FOR CONSULTATION: Hyperglycemia IMPRESSION: DKA is resolved Brittle type 1 diabetes - continue sc insulin today RECOMMENDATION: Lantus 50 units now Supplemental insulin prn Humalog 16 units qac Check glucose ac and 2 hours pc Call covering speedboat driver if glucose is less than 80 mg/dL or greater than 200 mg/dL. Start insulin pump tomorrow ( to bring infusion set) OK to go to medical unit Thank you for this kind consultation. HISTORY: 74 year-old female, patient of Dr. Alcira Anderson, admitted with diabetic ketoacidosis. The past 2 days the patient's glucose sensor has not been working. She'd been on the phone with the [employer] and they're going to send her one in 3 days. Today her glucose is over 600 mg/dL, so she was advised to come here. Patient denies any chest pain shortness of breath cough nausea vomiting or fevers. Patient does feel dehydrated and is trying to drink water and feels like she is urinating frequently. She denies any abdominal pain. Patient is here with her son-in-law noting that her mental status is at baseline. Glucose was 781 mg/dL on admission with anion gap of 26. She was treated with IVF and IV insulin. Drip was turned off this morning, as gap had closed. Glucose now 480 mg/dL. She is feeling fine and eating her lunch. Current Facility-Administered Medications Medication Dose Route Frequency Provider Last Rate Last Dose - mupirocin 2 % 0.5 g nasal ointment (BACTROBAN) 0.5 g NASAL BID Nara Calle (Confectionery Maker) 0.5 g at 09/29/19 0938 - metoprolol tartrate (short acting) 25 mg tab(s) (LOPRESSOR) 25 mg ORAL BID Kat Pepito 25 mg at 09/29/19 1038 - gabapentin 400 mg cap(s) (NEURONTIN) 400 mg ORAL q 12 H Kat Pepito 400 mg at 09/29/19 1038 - insulin glargine 50 Units pen (long acting) (LANTUS SOLOSTAR, BASAGLAR KWIKPEN) 50 Units SUBCUTANEOUS AT BEDTIME Daniele Hilliard MD - dextrose 40 % 15 g 15 g ORAL PRN Alma Rosa D Mix, MD Or - glucagon 1 mg injection (GLUCAGEN) 1 mg INTRAMUSCULAR PRN Alma Rosa Mix MD Or - dextrose 50% in water 25 mL syringe 12.5 g INTRAVENOUS PRN Alma Rosa Mix MD - heparin 5,000 Units injection 5,000 Units SUBCUTANEOUS q 12 H Maria T (Hair Or Beauty Salon Manager) Papadeonise - NaCl 0.9% 3-5 mL 3-5 mL INTRAVENOUS q 12 H Maria T (Hair Or Beauty Salon Manager) Papadeonise 5 mL at 09/28/19 2329 - NaCl 0.9% iv infusion 5-30 mL/hr INTRAVENOUS CONTINUOUS Kat Pepito 30 mL/hr at 09/29/19 1012 30 mL/hr at 09/29/19 1012 - ondansetron orally disintegrating 4 mg tab(s) (ZOFRAN ODT) 4 mg ORAL q 6 H PRN Maria T (Hair Or Beauty Salon Manager) Papadeonise Or - ondansetron (PF) 4 mg injection (ZOFRAN) 4 mg INTRAVENOUS q 6 H PRN Maria T (Hair Or Beauty Salon Manager) Papadeonise - aspirin 325 mg tab(s) 325 mg ORAL DAILY Maria T (Hair Or Beauty Salon Manager) Papadeonise 325 mg at 09/29/19 0938 - acetaminophen 650 mg tab(s) (TYLENOL) 650 mg ORAL q 8 H PRN Maria T (Hair Or Beauty Salon Manager) Papadeonise 650 mg at 09/29/19 0311 - clonazePAM 1 mg tab(s) (KlonoPIN) 1 mg ORAL HS PRN Maria T (Hair Or Beauty Salon Manager) Papadeonise 1 mg at 09/28/19 2329 - atorvastatin 40 mg tab(s) (LIPITOR) 40 mg ORAL AT BEDTIME Maria T (Hair Or Beauty Salon Manager) Papadeonise 40 mg at 09/28/19 2329 - losartan 50 mg tab(s) (COZAAR) 50 mg ORAL DAILY Maria T (Hair Or Beauty Salon Manager) Papadeonise 50 mg at 09/29/19 0938 - hydroxychloroquine 200 mg tab(s) (PLAQUENIL) 200 mg ORAL BID Maria T (Hair Or Beauty Salon Manager) Papadeonise 200 mg at 09/29/19 0937 - pramipexole 2 mg tab(s) (MIRAPEX) 2 mg ORAL AT BEDTIME Maria T (Hair Or Beauty Salon Manager) Papadeonise 2 mg at 09/29/19 0019 - albuterol HFA 90 mcg/actuation 2 Puff (PROVENTIL HFA, VENTOLIN HFA) 2 Puff INHALATION q 4 H PRN Maria T (Hair Or Beauty Salon Manager) Papadeonise - amLODIPine 5 mg tab(s) (NORVASC) 5 mg ORAL DAILY Maria T (Hair Or Beauty Salon Manager) Papadeonise 5 mg at 09/29/19 0937 - montelukast 10 mg tab(s) (SINGULAIR) 10 mg ORAL AT BEDTIME Maria T (Hair Or Beauty Salon Manager) Papadeonise 10 mg at 09/28/19 2329 - traMADol 50 mg tab(s) (ULTRAM) 50 mg ORAL PRN Maria T (Hair Or Beauty Salon Manager) Papadeonise - clopidogrel 75 mg tab(s) (PLAVIX) 75 mg ORAL DAILY Maria T (Hair Or Beauty Salon Manager) Papadeonise 75 mg at 09/29/19 0937 - clotrimazole 1 % (LOTRIMIN, CLOTRIM) TOPICAL BID Maria T (Hair Or Beauty Salon Manager) Papadeonise - triamcinolone acetonide 0.1 % crea (KENALOG) TOPICAL BID Maria T (Hair Or Beauty Salon Manager) Papadeonise - pantoprazole DR 40 mg tab(s) (PROTONIX) 40 mg ORAL BID AC (0600/1600) Maria T (Hair Or Beauty Salon Manager) Papadeonise 40 mg at 09/29/19 0608 - nitroglycerin sublingual 0.4 mg tab(s) (NITROQUICK) 0.4 mg SUBLINGUAL PRN Maria T (Hair Or Beauty Salon Manager) Papadeonise ALLERGIES Allergen Reactions - Aggrenox [Aspirin-D* MIGRAINES AND VOMITING - Amitriptyline Other: See Comments Confusion, falls - Cephalexin (Bulk) GI Upset - Cymbalta [Duloxetin* Unknown - Doxycycline GI Upset headache - Duricef [Cefadroxil] Hives - Ephedrine tachycardia - Ilosone [Other] Swelling tachycardia - Iodine itching after prolonged use - Levaquin [Levofloxa* Other: See Comments Achilles tendon problem - Lyrica [Pregabalin] Other: See Comments Dizziness at 225mg twice daily - Nortriptyline Other: See Comments vertigo - Percocet [Oxycodone* Unknown - Sulfa (Sulfonamide * Hives blisters PAST MEDICAL HISTORY Diagnosis Date - Abnormal mammogram, unspecified left breast - BPPV (benign paroxysmal positional vertigo) 02/11/2015 - BPV (benign positional vertigo) - CAD (coronary artery disease) - CARPAL TUNNEL BILATERRAL 08/08/2005 - Coronary artery disease involving conf[place] sal[place] coronary artery Dr. Pederson follows regularly; S/P PTCA and stenting at [facility], 2000 - Coronary atherosclerosis of unspecified type of vessel, [place] or graft - Disorder of bone and cartilage, unspecified - Diverticulosis of colon (without mention of hemorrhage) - Esophagitis - External hemorrhoids without mention of complication - Insomnia - Internal hemorrhoids without mention of complication - Mammographic microcalcification - Mild intermittent asthma without complication Adult onset - Mild nonproliferative diabetic retinopathy of both eyes ([facility]) 12/06/2018 - Other and unspecified hyperlipidemia - Other forms of migraine - Other psoriasis - Postsurgical percutaneous transluminal coronary angioplasty status - Rheumatoid arthritis(714.0) - RLS (restless legs syndrome) - 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 - Thoracic or lumbosacral neuritis or radiculitis, unspecified 03/01/2012 - Type I (juvenile type) diabetes mellitus with neurological manifestations, not stated as 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.61) - 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, 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) - Unspecified asthma(493.90) - Unspecified essential hypertension - Unspecified hereditary and idiopathic peripheral neuropathy PAST SURGICAL HISTORY Procedure Laterality Date - BREAST BIOPSY - COLONOSCOP W/ OR W/O [facility] SPEC 02/26/2204 Colonoscopy - COLONOSCOP W/ OR W/O BRS SPEC 08/29/15 Colonoscopy - COLONOSCOP W/ OR W/O [facility] SPEC 11/10/2018 Colonoscopy - EGD 04/15/2002 - EGD W/O OR W/BRUSH/WASH 11/10/2018 EGD - EXCIS BREAST LES W XRAY MARKER 03/2008 - PAST SURGICAL HISTORY OF tonsilectomy and [...] 2004 - PREOP PLACEMENT NEEDLE LOC - REPAIR ROTATOR CUFF,CHRONIC left rotator cuff - STEREOTACTIC CORE BIOPSY 02/24/08 LEFT - benign Social History Tobacco Use - Smoking status: Never Smoker - Smokeless tobacco: Never Used Substance Use Topics - Alcohol use: No - Drug use: No FAMILY HISTORY Problem Relation Age of Onset - Cancer Mother breast (diagnosed mid 50's) - Heart Mother valvular - other (Other) Father leukemia (dx'd age 55) - Asthma Paternal Grandmother - Diabetes Paternal Grandmother - Colon Cancer Other none - other (autoimmune def) Daughter Review of systems: Patient notes no weight changes, fever, fatigue, weakness, change in balance or sensation, visual problems, hearing changes, dizziness, trouble swallowing, nasal difficulties, shortness of breath, chest pain, change in exertional tolerance, foot or leg problems, skin lesions, abdominal pain, diarrhea, constipation, urinary problems, incontinence, back pain, joint pains, anxiety, depression, insomnia, menstrual difficulties, breast lesions/pain/mass. Remainder of review of systems was unremarkable. BP 136/60 Pulse (!) 55 Temp 36.9 ?C (98.4 ?F) (Temporal) Resp 29 Ht 160 cm (5' 3) Wt 88.4 kg (194 lb 14.2 oz) SpO2 97% BMI 34.52 kg/m? General appearance: Well-appearing, obese (BMI greater than 30) septuagenarian female, alert, in no acute distress, well-hydrated, well nourished. Skin: Skin color, texture, turgor normal, no suspicious rashes or lesions Head: normocephalic, no masses, lesions, tenderness or abnormalities Eyes: Anicteric sclera. Pupils are equally round. Extraocular movements are intact. Ears: not examined Nose/Sinuses: Nares normal. No drainage or sinus tenderness. Oropharynx: Lips, mucosa, and tongue normal, teeth and gums not examined. Neck: Supple, no adenopathy; no visible thyroid enlargement. Lungs: Breathing unlabored. Heart: RRR. No ectopy Abdomen: deferred Extremities: (+) small corn on lateral aspect of left 5th toe, no edema, skin discoloration, clubbing or cyanosis. Good capillary refill. Musculoskeletal: Spine range of motion not tested. Muscular strength intact, No joint swelling, deformity, or tenderness Peripheral pulses: Normal Neuro: Gait not assessed. Sensation grossly intact. LAB DATA: Fingerstick glucose readings reviewed. Results for BRIDGER RUSSO ( ) Ref. Range 09/29/2019 12:12 Sodium Latest Ref Range: 136 - 144 mmol/L 138 Potassium Latest Ref Range: 3.7 - 5.1 mmol/L 4.9 Chloride Latest Ref Range: 97 - 105 mmol/L 102 CO2 Latest Ref Range: 22 - 30 mmol/L 21 (L) BUN Latest Ref Range: 7 - 21 mg/dL 33 (H) Creatinine Latest Ref Range: 0.58 - 0.96 mg/dL 0.95 Glucose Latest Ref Range: 74 - 99 mg/dL 544 (H) Calcium Latest Ref Range: 8.5 - 10.2 mg/dL 8.6 Anion Gap Latest Ref Range: 9 - 18 mmol/L 15 eGFR-All Other Races Latest Units: . 58 Ref. Range 05/02/2019 11:16 05/19/2019 09:30 Hemoglobin A1C (POCT) Latest Ref Range: 4.2 - 5.6 % 7.3 (A) TSH Range: 0.270 - 4.200 uU/mL 1.590 Vitamin D 25 Hydroxy Latest Ref Range: 31.0 - 80.0 ng/mL 44.9 Daniele Hilliard MD [facility] Endocrinology and Metabolism [facility] September 29, 2019 12:41 PM Normal [facility] HISTORY PHYSICALon 0 HISTORY PHYSICAL HNO ID: [id number] Author: Kat Beyer Service: Critical Care Author Type: Anesthesiologist Type: HANDP Filed: 09/29/2019 3:23 PM Note Text: SERVICE DATE: 09/29/2019 SERVICE TIME: 3:06 PM ICU HANDP NOTE HPI: 74 yo F with PMH HTN, HLD, Juvenile onset Type 1 DM, CVA, CAD who presented to the ED with DKA. She reports her insulin pump and transmitter were not communicating and her blood sugars have been very elevated. Blood surgars were over 600 on CBG and 781 on lab draw. She had an aniuon gap, SHERLYN, and ketones in the urine. She denies any dizziness, nausea, vomiting, abdominal pain, chest pain, or shortness of breath. Admits to increased thirst and urinary frequency. Patient admitted to ICU for insulin infusion. Subjective PAST MEDICAL HISTORY Diagnosis Date - Abnormal mammogram, unspecified left breast - BPPV (benign paroxysmal positional vertigo) 02/11/2015 - BPV (benign positional vertigo) - CAD (coronary artery disease) - CARPAL TUNNEL BILATERRAL 08/08/2005 - Coronary artery disease involving [place] coronary artery Dr. Pederson follows regularly; S/P PTCA and stenting at [facility], 2000 - Coronary atherosclerosis of unspecified type of vessel, [place] or graft - Disorder of bone and cartilage, unspecified - Diverticulosis of colon (without mention of hemorrhage) - Esophagitis - External hemorrhoids without mention of complication - Insomnia - Internal hemorrhoids without mention of complication - Mammographic microcalcification - Mild intermittent asthma without complication Adult onset - Mild nonproliferative diabetic retinopathy of both eyes ([facility]) 12/06/2018 - Other and unspecified hyperlipidemia - Other forms of migraine - Other psoriasis - Postsurgical percutaneous transluminal coronary angioplasty status - Rheumatoid arthritis(714.0) - RLS (restless legs syndrome) - 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 - Thoracic or lumbosacral neuritis or radiculitis, unspecified 03/01/2012 - Type I (juvenile type) diabetes mellitus with neurological manifestations, not stated as 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.61) - 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, 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) - Unspecified asthma(493.90) - Unspecified essential hypertension - Unspecified hereditary and idiopathic peripheral neuropathy PAST SURGICAL HISTORY Procedure Laterality Date - BREAST BIOPSY - COLONOSCOP W/ OR W/O [facility] SPEC 02/26/2204 Colonoscopy - COLONOSCOP W/ OR W/O BRS SPEC 08/29/15 Colonoscopy - COLONOSCOP W/ OR W/O [facility] SPEC 11/10/2018 Colonoscopy - EGD 04/15/2002 - EGD W/O OR W/BRUSH/WASH 11/10/2018 EGD - EXCIS BREAST LES W XRAY MARKER 03/2008 - PAST SURGICAL HISTORY OF tonsilectomy and [...] 2004 - PREOP PLACEMENT NEEDLE LOC - REPAIR ROTATOR CUFF,CHRONIC left rotator cuff - STEREOTACTIC CORE BIOPSY 02/24/08 LEFT - benign FAMILY HISTORY Problem Relation Age of Onset - Cancer Mother breast (diagnosed mid 50's) - Heart Mother valvular - other (Other) Father leukemia (dx'd age 55) - Asthma Paternal Grandmother - Diabetes Paternal Grandmother - Colon Cancer Other none - other (autoimmune def) Daughter Social History Occupational History Not on file Tobacco Use Smoking status: Never Smoker Smokeless tobacco: Never Used Substance and Sexual Activity Alcohol use: No Drug use: No Sexual activity: Never Partners: Male ALLERGIES Allergen Reactions - Aggrenox [Aspirin-D* MIGRAINES AND VOMITING - Amitriptyline Other: See Comments Confusion, falls - Cephalexin (Bulk) GI Upset - Cymbalta [Duloxetin* Unknown - Doxycycline GI Upset headache - Duricef [Cefadroxil] Hives - Ephedrine tachycardia - Ilosone [Other] Swelling tachycardia - Iodine itching after prolonged use - Levaquin [Levofloxa* Other: See Comments Achilles tendon problem - Lyrica [Pregabalin] Other: See Comments Dizziness at 225mg twice daily - Nortriptyline Other: See Comments vertigo - Percocet [Oxycodone* Unknown - Sulfa (Sulfonamide * Hives blisters PRIOR TO ADMISSION MEDICATIONS: pramipexole (MIRAPEX) 1 mg tablet, Take 2 tablets by mouth daily at bedtime., Disp: 180 tablet, Rfl: 1 insulin lispro (HUMALOG U-100 INSULIN) 100 unit/mL injection, as directed in Insulin pump up to 110 units daily. Dx E10.65, Disp: 10 Vial, Rfl: 3 furosemide (LASIX) 20 mg tablet, Take 1 tablet by mouth once daily as needed., Disp: 90 tablet, Rfl: 1 potassium chloride (K-TAB) 10 mEq tablet, Take 1 tablet by mouth daily with breakfast., Disp: 90 tablet, Rfl: 1 Blood-Glucose Meter (CONTOUR METER) monitoring kit, Dispense 1 kit. Dx: Type 1 DM - Controlled E10.9, Disp: 1 Each, Rfl: 0 blood sugar diagnostic (CONTOUR TEST STRIPS) test strip, Test blood sugar(s) 6 times daily. Dx: Type 1 DM - Controlled E10.9 Insulin: Yes, Disp: 600 Strip, Rfl: 3 montelukast (SINGULAIR) 10 mg tablet, Take 1 tablet by mouth daily at bedtime., Disp: 30 tablet, Rfl: 3 blood sugar diagnostic (BLOOD GLUCOSE TEST) test strip, Test blood sugar(s) 6 times daily. Dx: E 10.65, Z96.41, Disp: 600 Strip, Rfl: 3 clonazePAM (KLONOPIN) 1 mg tablet, Take 1 tablet by mouth at bedtime as needed for up to 91 days., Disp: 90 tablet, Rfl: 0 ondansetron (ZOFRAN) 4 mg tablet, Take 1 tablet by mouth every 8 hours as needed (For Nausea) for up to 6 doses., Disp: 6 tablet, Rfl: 1 amLODIPine (NORVASC) 5 mg tablet, Take 1 tablet by mouth once daily., Disp: 90 tablet, Rfl: 3 atorvastatin (LIPITOR) 40 mg tablet, Take 1 tablet by mouth once daily., Disp: 90 tablet, Rfl: 3 losartan (COZAAR) 50 mg tablet, Take 1 tablet by mouth once daily., Disp: 90 tablet, Rfl: 3 magnesium citrate solution, Drink 1/3 of bottle, wait 4hrs for results. If no stool, drink next 1/3 bottle. Wait 4hrs. No results, then drink last 1/3 of bottle. For severe constipation., Disp: , Rfl: 0 metoprolol tartrate, short acting, (LOPRESSOR) 50 mg tablet, Take 1 tablet by mouth twice daily., Disp: 180 tablet, Rfl: 3 clopidogrel (PLAVIX) 75 mg tablet, Take 1 tablet by mouth once daily., Disp: 90 tablet, Rfl: 3 triamcinolone (KENALOG) 0.025 % cream, Apply 1 application to affected area twice daily., Disp: 30 g, Rfl: 0 COMPOUNDED PRESCRIPTION, One pair Diabetic shoes with 3 custom inserts, Disp: 1 Each, Rfl: 0 Cholecalciferol, Vitamin D3, 5,000 unit cap, Take 1 capsule by mouth once daily., Disp: 90 capsule, Rfl: 3 calcium carbonate 400 mg (1,000 mg) chew, Take 1 tablet by mouth three times daily., Disp: 270 tablet, Rfl: 3 docusate sodium (COL-RITE) 100 mg capsule, Take 1 capsule by mouth twice daily., Disp: 60 capsule, Rfl: 1 hydroxychloroquine (PLAQUENIL) 200 mg tablet, Take 1 tablet by mouth twice daily., Disp: 180 tablet, Rfl: 3 lansoprazole (PREVACID) 30 mg capsule, Take 1 capsule by mouth twice daily., Disp: 180 capsule, Rfl: 3 acetaminophen (TYLENOL 8 HOUR) 650 mg CR tablet, Take 650 mg by mouth every 8 hours as needed., Disp: , Rfl: insulin glargine (LANTUS U-100 INSULIN) 100 unit/mL injection, 46 units every 24 hr for insulin pump failure, Disp: 10 mL, Rfl: 1 metoprolol succinate ER (TOPROL XL) 25 mg 24 hr tablet, take 1 tablet by mouth twice a day, Disp: 180 tablet, Rfl: 3 traMADol (ULTRAM) 50 mg tablet, Take 50 mg by mouth as needed. , Disp: , Rfl: adapalene (DIFFERIN) 0.1 % gel, Apply 1 application to affected area twice daily. For 4 weeks then decrease to once daily for 2 weeks, Disp: 15 g, Rfl: 0 albuterol HFA (PROAIR HFA) 90 mcg/actuation inhaler, Inhale 2 Puffs as instructed every 4 hours as needed., Disp: 1 Inhaler, Rfl: 0 polyethylene glycol 3350 (MIRALAX, GLYCOLAX) 17 gram packet, Take 1 Packet by mouth once daily., Disp: , Rfl: 0 aspirin 325 mg tablet, Take 1 tablet by mouth once daily., Disp: 90 tablet, Rfl: 3 gabapentin (NEURONTIN) 100 mg capsule, Take 1 capsule by mouth three times daily. Dr. Trejo, Disp: , Rfl: LACTOBACILLUS ACIDOPHILUS (PROBIOTIC ORAL), Take by mouth., Disp: , Rfl: clotrimazole (LOTRIMIN, CLOTRIM) 1 % cream, Apply to affected area twice daily., Disp: , Rfl: Insulin Syringe-Needle U-100 (BD ULTRAFINE INSULIN) 1 mL 31 x 5/16 syrg, use as directed if pump fails up to 6 times daily, Disp: 100 Syringe, Rfl: 3 BIOTIN ORAL, Take by mouth., Disp: , Rfl: COMPOUNDED PRESCRIPTION, Knee High Compression Stockings 20-30 mm, DX: 459.81, Edema-782.3, Disp: 4 Each, Rfl: 1 albuterol 2.5 mg /3 mL (0.083 %) INHALATION nebulizer solution, Use 3 mL via nebulizer every 6 hours as needed., Disp: 1 Package, Rfl: 0 MULTIVITAMIN ORAL TAB, Take one(1) tablet daily., Disp: , Rfl: 0 NITROGLYCERIN 0.4 MG/DOSE TL HINA, one every 5 minutes x3 as needed, Disp: , Rfl: 0 REVIEW OF SYSTEMS: per hpi Objective Admission Weight: Weight: 89.8 kg (198 lb) VITAL SIGNS BP 145/60 Pulse 55 Temp (Src) 98.4 (Temporal) Resp 22 Ht 5' 3 (1.60m) Wt 194 lb 14.2 oz (88.4kg) SpO2 94% BMI 34.53 kg/(m2). O2 Therapy: Nasal Cannula, Liters: 2 NaCl 0.9%, Last Rate: 30 mL/hr (09/29/19 1012) RESPIRATORY Mechanical Ventilation: RA PHYSICAL EXAM Neuro: Awake, Follows commands, Alert and Moving all extremities Pulmonary: Clear to auscultation. Breath Sounds Equal: Yes Cardiovascular: Regular rhythm Abdomen: Soft, Nontender and Positive bowel sounds Extremities: Edema- No Peripheral pulses- Present all extremities Wounds/Drsgs- No DATA: Diagnostic tests reviewed for today's visit: Most recent labs and imaging results. ICU Checklist Last Documented/Reviewed time: 09/29/2019 2:56 PM ICU Delirium Status: CAM Negative - no action required Restraint Status: None ICU Mobility-Pt Has Been Out of Bed: No - Specify Line Status: None Ventilator: None Arnold Status: None GI/Stress Ulcer Prophylaxis: PPI Nutrition is at Goal: Advancing to goal VTE Prophylaxis: Chemoprophylaxis: Heparin SQ Mechanical Prophylaxis: Knee high SCD Pressure Injury Status: None ICU plan of care visit at bedside in last 24 hours: Yes, Provider, RN, Patient/ designee ICU Disposition- Is Patient Clinically Ready to Transfer to [facility] or SDU?: Yes, transfer to SDU or RNF today Discharge Planning: To be determined Assessment AND Plan Active Hospital Problems as of 09/29/2019 Noted - Resolved Hospital 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 Hyperglycemia with CBG > 600 and AG 26 - now resolved. PLAN: Endocrinology consulted AG closed, insulin infusion stopped this morning Continue to monitor blood glucose Lantus 50 unit(s) Supplemental insulin as needed Patient to start insulin pump tomorrow Hypertension Unknown - Present Current Assessment AND Plan Assessment: BP well controlled PLAN: Continue home medications Coronary artery disease 08/29/2015 - Present Current Assessment AND Plan Assessment: Hx prior MO and PCTA with stenting. EF 60% 06/2019. PLAN: Continue ASA, statin Continue Plavix Asthma 09/29/2019 - Present Current Assessment AND Plan Assessment: Hx mild intermittent asthma PLAN: Continue bronchodilators PRN SHERLYN (acute kidney injury) ([facility]) 09/29/2019 - Present Current Assessment AND Plan Assessment: DKA induced with dehydration PLAN: Volume resuscitated, IVF now KVO Tolerating PO diet Monitor BUN/Cr for further changes Medication and Non-Pharmacologic VTE Prophylaxis/Anticoagulant s Anticoagulant AND Antiplatelet Medications (From admission, onward) Start Dose Route Frequency Ordered Stop 09/29/19 0900 clopidogrel 75 mg tab(s) (PLAVIX) 75 mg ORAL DAILY 09/28/192112 -- 09/28/192099 heparin 5,000 Units injection (Medical Risk Categories) 5,000 Units SUBCUTANEOUS EVERY 12 HOURS 09/28/192057 -- 09/28/19 2100 pneumatic compression stockings (fl,oh) VTE Prophylaxis: VTE prophylaxis appropriate SIGNATURE: Lilia Salgado DO PATIENT NAME: Kylie Russo DATE: September 29, 2019 TIME: 3:06 PM PAGER/CONTACT #: [phone] ICU STAFF Note of Personal Involvement in Care 74 yo with longstanding DM type 1 (insulin pump at home). Admitted with DKA. Anion gap closed overnight. She is off her insulin pump currently, there were issues with her blood glucose monitoring system at home. Transitioned to SQ regimen and seen by Endocrinology. She is stable for transfer to the floor. I have reviewed and verified the recent history and physical examination. I personally participated in the marie components. I have discussed the case and management of the patient's care, exclusive of separately billed procedures which fulfilled the standards for LEVEL 3. Kat Beyer MD Pager [phone] [facility] Magnesiumon 09-29-2019 Magnesium [Mass/Vol] 2.3 mg/dL Normal 1.7-2.3 [facility] Comment on above: Performed By: #### M G1, PHOS ####[facility] [address] [place] [phone] NURSING PROGon 09-29-2019 NURSING PROG HNO ID: [id number] Author: Mauricio FerrellRn) KING Goodson Service: Nursing Author Type: Registered Nurse Type: Nursing Progress Note Filed: 09/29/2019 6:52 PM Note Text: Nursing Progress Note Patient Name: Kylie Russo Patient Location: [facility]/[id number] Transfer Note: Patient transferred out to room/unit ICU 2 in stable condition. Actions taken: Report given/called to RN. No futher actions taken at this time. Will continue to monitor and check with patient. Patient belongings with patient This note was completed by: Mauricio Goodson RN [facility] NURSING PROG HNO ID: [id number] Author: Ami FerrellRn) KING Stephenson Service: Nursing Author Type: Registered Nurse Type: Nursing Progress Note Filed: 09/29/2019 5:32 AM Note Text: Nursing Progress Note Patient Name: Kylie Russo Patient Location: [facility]/[id number] Daily Note: 0400: patient blood sugar was below the limit called [facility] request different maintence fluids 0530: Patient still has not received different maintance fluids. Even though BS has dropped. Patient still on insulin drip. 144 was patient sugar This note was completed by: Ami Stephenson RN [facility] NURSING PROG HNO ID: [id number] Author: Ami (Rn) KING Stephenson Service: Nursing Author Type: Registered Nurse Type: Nursing Progress Note Filed: 09/29/2019 4:27 AM Note Text: Nursing Progress Note Patient Name: Kylie Russo Patient Location: [facility]1/[id number] Transfer Note: Patient transferred into room/unit ICU bed 2 from ED. Actions taken: Patient was brought down in a wheel chair by ED patient stable on insulin. This note was completed by: Ami Stephenson RN [facility] PROGRESSon 09-29-2019 PROGRESS HNO ID: [id number] Author: Ade Herrera Service: ? Author Type: Physician Type: Progress Notes Filed: 09/29/2019 4:51 PM Note Text: DEPARTMENT OF HOSPITAL MEDICINE PROGRESS NOTE NIGHT AND WEEKEND COVERAGE: Nights: Please contact pager [phone]. Hospital Medicine/Primary Attending: Ade Herrera, Subjective HPI: 74 yo F with PMH HTN, HLD, Juvenile onset Type 1 DM, CVA, CAD who presented to the ED with DKA. She reports her insulin pump and transmitter were not communicating and her blood sugars have been very elevated. Blood surgars were over 600 on CBG and 781 on lab draw. She had an aniuon gap, SHERLYN, and ketones in the urine. She denies any dizziness, nausea, vomiting, abdominal pain, chest pain, or shortness of breath. Admits to increased thirst and urinary frequency. Patient admitted to ICU for insulin infusion. Interval Events: pt admitted to icu for iv insulin infusion. This was stopped this morning and she has been tolerating diet today. Her anion gap is normalized and she is being moved to a regular medical floor. Dr Hilliard is following her as well. She is going to start the insulin pump tomorrow Objective PHYSICAL EXAM: BP 144/67 Pulse 51 Temp (Src) 98.4 (Temporal) Resp 24 Ht 5' 3 (1.60m) Wt 194 lb 14.2 oz (88.4kg) SpO2 94% BMI 34.53 kg/(m2). O2 Therapy: Nasal Cannula, Liters: 2 Physical Exam Pt is alert and oriented x 3 very pleasant Heent wnl Heart regular no mrg Lungs ctab abd benign Ext no edema Neuro 2-12 intact Lines, Drains, and Airways Line Peripheral 09/28/19 2305 Right Hand 22 Gauge less than 1 day Reviewed lines and needs to be continued: REASONS: Intravenous fluids MEDICATIONS: Reviewed DATA: Diagnostic tests reviewed for today's visit: Most recent labs and imaging results. 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 Current Assessment AND Plan ? ? ? Assessment: Insulin Pump malfunction. Hyperglycemia with CBG > 600 and AG 26 - now resolved. PLAN: Endocrinology consulted AG closed, insulin infusion stopped this morning Continue to monitor blood glucose Lantus 50 unit(s) Supplemental insulin as needed Patient to start insulin pump tomorrow ? Hypertension Unknown - Present ? Current Assessment AND Plan ? ? ? Assessment: BP well controlled PLAN: Continue home medications ? Coronary artery disease 08/29/2015 - Present ? Current Assessment AND Plan ? ? ? Assessment: Hx prior MO and PCTA with stenting. EF 60% 06/2019. PLAN: Continue ASA, statin Continue Plavix ? Asthma 09/29/2019 - Present ? Current Assessment AND Plan ? ? ? Assessment: Hx mild intermittent asthma PLAN: Continue bronchodilators PRN ? SHERLYN (acute kidney injury) (HCC) 09/29/2019 - Present ? Current Assessment AND Plan ? ? ? Assessment: DKA induced with dehydration PLAN: Volume resuscitated, IVF now KVO Tolerating PO diet Monitor BUN/Cr for further changes ? ? ? Normal [facility] Phosphoruson 09-29-2019 Phosphate [Mass/Vol] 4.5 mg/dL Normal 2.7-4.8 [facility] Comment on above: Performed By: #### M Niya PHOLuba ####[facility] [address] [place] [address] Sepsis Lactateon 09-29-2019 Sepsis Lactate 4.0 mmol/L High 0.5-2.0 [facility] Comment on above: Result Comment: Call ed to and read back by: Jake Gonsalez RN [place] ICU 09/28/2019 Eddie Omalley Performed By: #### S LACT ####[facility] [address] [place] [address] Staph aureus PCRon 0 MRSA PCR Negative Normal [facility] Comment on above: Performed By: #### S APCR ####[facility] [address] [place], [place] [phone] S aureus Spec Source Nasal Normal [facility] Comment on above: Performed By: #### S APCR ####[facility] [address] [place], [place] [phone] Staph aureus PCR Positive Critically abnormal [facility] Comment on above: Performed By: #### S APCR ####[facility] [address] [place], [place] [phone] ALLIED HEALTHon 09-28-2019 ALLIED HEALTH HNO ID: [id number] Author: Kai Pro (Rt) Service: ? Author Type: Preboarder Type: Allied Health Filed: 09/28/2019 9:00 PM Note Text: Radiology Service Progress Note PATIENT NAME: Kylie Russo DATE OF SERVICE: September 28, 2019 TIME: 8:59 PM PATIENT IDENTITY VERIFICATION COMPLETED USING TWO [...] IMPLANT DATA REVIEWED: Not Applicable RADIOLOGY DEPARTMENT: General X-ray: Exam(s) Completed: Chest X-Ray PERIPHERAL IV DATA: Not applicable SIGNED BY: Sandhya Bryant, RT September 28, 2019 8:59 PM Normal [facility] B-Hydroxybutyrateon 09-28-19 20 B-Hydroxybutyrate >4.50 High <0.28 [facility] Comment on above: Performed By: #### C BCDIF, MG1, CMP, BHB ####[facility] [address] [place] [address] CBC and Differentialon 09-27 Abs Baso 0.05 k/uL Normal <0.11 [facility] Comment on above: Performed By: #### C BCDIF, MG1, CMP, BHB #### [facility] [address] [place] [address] Abs [place] 0.46 k/uL Normal <0.87 [facility] Comment on above: Performed By: #### C BCDIF, MG1, CMP, BHB #### [facility] [address] [place] [address] Abs Neut 10.64 k/uL High 1.45-7.50 [facility] Comment on above: Performed By: #### C BCDIF, MG1, CMP, BHB #### [facility] [address] [place] [address] Absolute nRBC <0.01 Normal <0.01 [facility] Comment on above: Performed By: #### C BCDIF, MG1, CMP, BHB #### [facility] [address] [place] [address] Basophils/100 WBC (Bld) 0.4 % Normal [facility] Comment on above: Performed By: #### C BCDIF, MG1, CMP, BHB #### [facility] [address] [place] [address] DTYPE Auto Diff Normal [facility] Comment on above: Performed By: #### C BCDIF, MG1, CMP, BHB #### [facility] [address] [place] [address] Eosinophils (Bld) [#/Vol] 0.04 10*3/uL Normal <0.46 [facility] Comment on above: Performed By: #### C BCDIF, MG1, CMP, BHB #### [facility] [address] [place], [place] [phone] Eosinophils/100 WBC (Bld) 0.3 % Normal [facility] Comment on above: Performed By: #### C BCDIF, MG1, CMP, BHB #### [facility] [address] [place], [place] [phone] Erythrocyte distribution width (RBC) [Ratio] 14.0 % Normal 11.5-15.0 [facility] Comment on above: Performed By: #### C BCDIF, MG1, CMP, BHB #### [facility] [address] [place] [address] Hematocrit (Bld) [Volume fraction] 39.4 % Normal 36.0-46.0 [facility] Comment on above: Performed By: #### C BCDIF, MG1, CMP, BHB #### [facility] [address] [place] [address] Hemoglobin (Bld) [Mass/Vol] 12.9 g/dL Normal 11.5-15.5 [facility] Comment on above: Performed By: #### C BCDIF, MG1, CMP, BHB #### [facility] [address] [place] [address] Lymphocytes (Bld) [#/Vol] 1.02 10*3/uL Normal 1.00-4.00 [facility] Comment on above: Performed By: #### C BCDIF, MG1, CMP, BHB #### [facility] [address] [place], [place] [phone] Lymphocytes/100 WBC (Bld) 8.4 % Normal [facility] Comment on above: Performed By: #### C BCDIF, MG1, CMP, BHB #### [facility] [address] [place] [address] MCH (RBC) [Entitic mass] 31.2 pG Normal 26.0-34.0 [facility] Comment on above: Performed By: #### C BCDIF, MG1, CMP, BHB #### [facility] [address] [place], [place] [phone] MCHC (RBC) [Mass/Vol] 32.7 g/dL Normal 30.5-36.0 [facility] Comment on above: Performed By: #### C BCDIF, MG1, CMP, BHB #### [facility] [address] [place] [address] MCV (RBC) [Entitic vol] 95.2 fL Normal 80.0-100.0 [facility] Comment on above: Performed By: #### C BCDIF, MG1, CMP, BHB #### [facility] [address] [place] [address] Monocytes/100 WBC (Bld) 3.8 % Normal [facility] Comment on above: Performed By: #### C BCDIF, MG1, CMP, BHB #### [facility] [address] [place] [address] Neutrophils/100 WBC (Bld) 87.1 % Normal [facility] Comment on above: Performed By: #### C BCDIF, MG1, CMP, BHB #### [facility] [address] [place] [address] NRBCs 0.0 /100 WBC Normal 0 [facility] Comment on above: Performed By: #### C BCDIF, MG1, CMP, BHB #### [facility] [address] [place] [address] Platelet mean volume (Bld) [Entitic vol] 12.3 fL Normal 9.0-12.7 [facility] Comment on above: Performed By: #### C BCDIF, MG1, CMP, BHB #### [facility] [address] [place] [address] Platelets (Bld) [#/Vol] 225 10*3/uL Normal 150-400 [facility] Comment on above: Performed By: #### C BCDIF, MG1, CMP, BHB #### [facility] [address] [place] [address] RBC (Bld) [#/Vol] 4.14 10*6/uL Normal 3.90-5.20 [facility] Comment on above: Performed By: #### C BCDIF, MG1, CMP, BHB #### [facility] [address] [address] WBC (Bld) [#/Vol] 12.21 10*3/uL High 3.70-11.00 [facility] Comment on above: Performed By: #### C BCDIF, MG1, CMP, BHB #### [facility] [address] [facility] [phone] Comp Metabolic Panelon 09-27 Albumin [Mass/Vol] 4.3 g/dL Normal 3.9-4.9 [facility] Comment on above: Performed By: #### C BCDIF, MG1, CMP, BHB ####[facility] [address] [phone] ALP [Catalytic activity/Vol] 203 U/L High 34-123 [facility] Comment on above: Performed By: #### C BCDIF, MG1, CMP, BHB ####[facility] [address] [phone] ALT [Catalytic activity/Vol] 59 U/L High 7-38 [facility] Comment on above: Performed By: #### C BCDIF, MG1, CMP, BHB ####[facility] [address] [phone] Anion gap [Moles/Vol] 26 mmol/L High 9-18 [facility] Comment on above: Performed By: #### C BCDIF, MG1, CMP, BHB ####[facility] [address] [phone] AST [Catalytic activity/Vol] 31 U/L Normal 13-35 [facility] Comment on above: Performed By: #### C BCDIF, MG1, CMP, BHB ####[facility] [address] [phone] Bilirubin [Mass/Vol] 0.9 mg/dL Normal 0.2-1.3 [facility] Comment on above: Performed By: #### C BCDIF, MG1, CMP, BHB ####[facility] [address] [phone] Calcium [Mass/Vol] 9.8 mg/dL Normal 8.5-10.2 [facility] Comment on above: Performed By: #### C BCDIF, MG1, CMP, BHB ####[facility] [address] [place] [phone] Chloride [Moles/Vol] 92 mmol/L Low 97-105 [facility] Comment on above: Performed By: #### C BCDIF, MG1, CMP, BHB ####[facility] [address] [place] [phone] CO2 [Moles/Vol] 16 mmol/L Low 22-30 [facility] Comment on above: Performed By: #### C BCDIF, MG1, CMP, BHB ####[facility] [phone] Creatinine [Mass/Vol] 0.91 mg/dL Normal 0.58-0.96 [facility] Comment on above: Performed By: #### C BCDIF, MG1, CMP, BHB ####[facility] [phone] eGFR- Amer. >60 Normal [facility] Comment on above: Performed By: #### C BCDIF, MG1, CMP, BHB ####[facility] [phone] GFR/1.73 sq M predicted among non-blacks MDRD (S/P/Bld) [Vol rate/Area] mL/min/{1.73_m2} Normal [facility] Comment on above: Result Comment: eGFR (Estimated GFR) Units of measure: mL/min/1.73 meters squared eGFR is derived from the reexpressed MDRD Study equation using the following parameters: serum creatinine, age, gender and race. The creatinine assay has been calibrated to be traceable to IDMS. An eGFR <60 mL/min/1.73m2 for >3 months is consistent with chronic kidney disease. Refer to KDOQI guidelines for clinical interpretation. In patients with unstable renal function, e.g. those with acute kidney injury, the eGFR may not accurately reflect actual GFR. Performed By: #### C BCDIF, MG1, CMP, BHB ####[facility] [address] [place] [phone] Glucose [Mass/Vol] 781 mg/dL High 74-99 [facility] Comment on above: Result Comment: The [place] Diabetes Association (ADA) provides guidance for cutoff [...] Standards of Medical Care in Diabetes 2016, [place] Diabetes Association. Diabetes Care. 2016.39(Suppl 1). No call per procedure. 09/28/20192008. Performed By: #### C BCANNETTEF, MG1, CMP, BHB ####[facility] [address] [place] [address] Potassium [Moles/Vol] 5.6 mmol/L High 3.7-5.1 [facility] Comment on above: Performed By: #### C BCANNETTEF, MG1, CMP, BHB ####[facility] [address] [place] [address] Protein [Mass/Vol] 8.1 g/dL High 6.3-8.0 [facility] Comment on above: Performed By: #### C BCDIF, MG1, CMP, BHB ####[facility] [address] [place] [address] Sodium [Moles/Vol] 134 mmol/L Low 136-144 [facility] Comment on above: Performed By: #### C BCDIF, MG1, CMP, BHB ####[facility] [address] [place] [address] Urea nitrogen [Mass/Vol] 32 mg/dL High 7-21 [facility] Comment on above: Performed By: #### C BCDIF, MG1, CMP, BHB ####[facility] [address] [place] [address] ED NOTEon 09-28-2019 ED NOTE HNO ID: [id number] Author: Marilyn Davalos) KING Hernandez Service: Nursing Author Type: Registered Nurse Type: ED Notes Filed: 09/28/2019 9:29 PM Note Text: Pt is being admitted to ICU 10 in stable condiiton, report given to Brandi GE [facility] ED NOTE HNO ID: [id number] Author: Marilyn (Rn) KING Hernandez Service: Nursing Author Type: Registered Nurse Type: ED Notes Filed: 09/28/2019 7:21 PM Note Text: Assumed care of pt at this time, pt reports to ED c/o BS in 600 for the past 2 days. Pt has an implanted glucometer, states that it stopped working yesterday, pt called company and with get a new transmitter and group fitness department head in 4-5 days. Pt checked her BS by straight stick. Pt alert and oriented, breathing even and unlabored, denies any pain or discomfort. Pt denies any CP, SOB, [place] or dizziness. [facility] ED NOTE HNO ID: [id number] Author: Maeve FerrellRn) KING Kay Service: Nursing Author Type: Registered Nurse Type: ED Notes Filed: 09/28/2019 6:46 PM Note Text: Patient presents with a blood sugar over 600 [facility] ED PROV NOTEon 09-28-2019 ED PROV NOTE HNO ID: [id number] Author: Alma Rosa Mix MD Service: ? Author Type: Physician Type: ED Provider Notes Filed: 09/28/2019 9:07 PM Note Text: ED Provider Note Patient Name: Kylie Russo SERVICE DATE: 09/28/19 History Patient presents with: High Blood Sugar: over 600 at home Patient is a 74-year-old female coming in with elevated blood glucose levels. The past 2 days the patient's insulin pump has not been working. She's been on the phone with him and they're going to send her one in 3 days. Today her glucose is over 600 so she was advised to come here. Patient denies any chest pain shortness of breath cough nausea vomiting or fevers. Patient does feel dehydrated and is trying to drink water and feels like she is urinating frequently. She denies any abdominal pain. Patient is here with her son-in-law noting that her mental status is at baseline. PAST MEDICAL HISTORY Diagnosis Date - Abnormal mammogram, unspecified left breast - BPV (benign positional vertigo) - CAD (coronary artery disease) - Coronary atherosclerosis of unspecified type of vessel, confed[place] sal[place] or graft - Disorder of bone and cartilage, unspecified - Diverticulosis of colon (without mention of hemorrhage) - Esophagitis - External hemorrhoids without mention of complication - Insomnia - Internal hemorrhoids without mention of complication - Mammographic microcalcification - Mild nonproliferative diabetic retinopathy of both eyes ([facility]) 12/06/2018 - Other and unspecified hyperlipidemia - Other forms of migraine - Other psoriasis - Postsurgical percutaneous transluminal coronary angioplasty status - Rheumatoid arthritis(714.0) - RLS (restless legs syndrome) - 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 - Type I (juvenile type) diabetes mellitus with neurological manifestations, not stated as 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.61) - 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, 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) - Unspecified asthma(493.90) - Unspecified essential hypertension - Unspecified hereditary and idiopathic peripheral neuropathy PAST SURGICAL HISTORY Procedure Laterality Date - BREAST BIOPSY - COLONOSCOP W/ OR W/O [facility] SPEC 02/26/2204 Colonoscopy - COLONOSCOP W/ OR W/O [facility] SPEC 08/29/15 Colonoscopy - COLONOSCOP W/ OR W/O [facility] SPEC 11/10/2018 Colonoscopy - EGD 04/15/2002 - EGD W/O OR W/BRUSH/WASH 11/10/2018 EGD - EXCIS BREAST LES W XRAY MARKER 03/2008 - PAST SURGICAL HISTORY OF tonsilectomy and [...] 2004 - PREOP PLACEMENT NEEDLE LOC - REPAIR ROTATOR CUFF,CHRONIC left rotator cuff - STEREOTACTIC CORE BIOPSY 02/24/08 LEFT - benign FAMILY HISTORY Problem Relation Age of Onset - Cancer Mother breast (diagnosed mid 50's) - Heart Mother valvular - other (Other) Father leukemia (dx'd age 55) - Asthma Paternal Grandmother - Diabetes Paternal Grandmother - Colon Cancer Other none - other (autoimmune def) Daughter Social History Tobacco Use - Smoking status: Never Smoker - Smokeless tobacco: Never Used Substance and Sexual Activity - Alcohol use: No - Drug use: No - Sexual activity: Never Partners: Male ALLERGIES Allergen Reactions - Aggrenox [Aspirin-D* MIGRAINES AND VOMITING - Amitriptyline Other: See Comments Confusion, falls - Cephalexin (Bulk) GI Upset - Cymbalta [Duloxetin* Unknown - Doxycycline GI Upset headache - Duricef [Cefadroxil] Hives - Ephedrine tachycardia - Ilosone [Other] Swelling tachycardia - Iodine itching after prolonged use - Levaquin [Levofloxa* Other: See Comments Achilles tendon problem - Lyrica [Pregabalin] Other: See Comments Dizziness at 225mg twice daily - Nortriptyline Other: See Comments vertigo - Percocet [Oxycodone* Unknown - Sulfa (Sulfonamide * Hives blisters Review of Systems Constitutional: Negative for fever. Respiratory: Negative for cough and shortness of breath. Cardiovascular: Negative for chest pain. Gastrointestinal: Negative for abdominal pain and vomiting. All other systems reviewed and are negative. Physical Exam BP 181/73 Pulse 83 Temp (Src) 97.8 (Temporal Artery) Resp 18 Ht 5' 3 (1.60m) Wt 198 lb (89.8kg) SpO2 95% BMI 35.08 kg/(m2). O2 Therapy: Room Air Physical Exam Vitals signs and nursing note reviewed. HENT: Head: Normocephalic. Mouth/Throat: Comments: Dry mucous membranes Neck: Musculoskeletal: Neck supple. Cardiovascular: Rate and Rhythm: Normal rate and regular rhythm. Pulmonary: Effort: Pulmonary effort is normal. Breath sounds: Normal breath sounds. Abdominal: General: There is no distension. Palpations: Abdomen is soft. Tenderness: There is no abdominal tenderness. Skin: General: Skin is warm. Neurological: General: No focal deficit present. Mental Status: She is alert. Mental status is at baseline. Motor: No weakness. Psychiatric: Mood and Affect: Mood normal. Diagnostic Testing ED Labs Ordered and Reviewed COMP METABOLIC PANEL - Abnormal; Notable for the following components: Result Value Ref Range Protein, Total 8.1 (*) 6.3 - 8.0 g/dL Alkaline Phosphatase 203 (*) 34 - 123 U/L Glucose 781 (*) 74 - 99 mg/dL BUN 32 (*) 7 - 21 mg/dL Sodium 134 (*) 136 - 144 mmol/L Potassium 5.6 (*) 3.7 - 5.1 mmol/L Chloride 92 (*) 97 - 105 mmol/L CO2 16 (*) 22 - 30 mmol/L Anion Gap 26 (*) 9 - 18 mmol/L ALT 59 (*) 7 - 38 U/L All other components within normal limits CBC + DIFF - Abnormal; Notable for the following components: WBC 12.21 (*) 3.70 - 11.00 k/uL Abs Neut (ANC) 10.64 (*) 1.45 - 7.50 k/uL All other components within normal limits MAGNESIUM BLD - Abnormal; Notable for the following components: Magnesium 2.4 (*) 1.7 - 2.3 mg/dL All other components within normal limits KETONES/ACETONE/BHB - Abnormal; Notable for the following components: B-Hydroxybutyrate >4.50 (*) <0.28 mmol/L All other components within normal limits CRITICAL CARE PROFILE VENOUS - Abnormal; Notable for the following components: Lactate 3.6 (*) 0.5 - 2.2 mmol/L pH, Venous 7.263 (*) 7.320 - 7.420 Potassium, Whole Blood 5.4 (*) 3.5 - 5.0 mmol/L All other components within normal limits KETONES/ACETONE/BHB URINALYSIS STAPH AUREUS PCR SEPSIS LACTATE (ANGELES) EXPEDITED COVID19 CRITICAL CARE PROFILE VENOUS ARTERIAL BLOOD GAS Procedures ED Course / Clinical Impression Clinical Impressions as of Sep 27 2105 Diabetic ketoacidosis without coma associated with type 1 diabetes mellitus (HCC) Dehydration Hyperkalemia MDM / Disposition / Plan Patient had basic labs that showed DKA. PH is 7.26. Greater than 4.5 ketones. Bicarbonate is 16 anion gap is 26. Glucose is 780. Patient was given 2 L of normal saline. 30 hydrated her white blood cell count is 12 no obvious infection however chest x-ray and urine studies are pending at this time. Patient was started on the DKA protocol. I discussed with the hospital who accepted the patient for further care. She has insulin pump was removed. Patient will be admitted to the ICU. Critical Care I spent a total of 30 minutes of critical care time in the evaluation and management of this patient. This was necessary to treat or prevent deterioration of the following condition(s): Severe endocrine abnormality, which the patient had and/or has a high probability of suddenly developing. The patient received insulin drip and IV Fluids during the time that critical care was provided. Critical care time excludes separately billed procedures. Alma Rosa Mix MD The patient was ADMITTED TO: ICU . Condition at time of disposition: stable SIGNATURE: MD Alma Rosa Way MD 09/28/19 2107 Normal [facility] Expedited [id number] 09-28-19 20 COVID 19 Result WHEELAGE CLERK Negative Normal Negative for COVID19 (SARS CoV2) by PCR. [facility] Comment on above: Result Comment: This test has been authorized by FDA under an Emergency Use Authorization (EUA). Performed By: #### E XCOVD ####[address] [place] [address] COVID 19 Source WHEELAGE CLERK Nasopharyngeal Swab Normal [facility] Comment on above: Performed By: #### E XCOVD ####[address] [place] [address] Magnesiumon 09-28-2019 Magnesium [Mass/Vol] 2.4 mg/dL High 1.7-2.3 [facility] Comment on above: Performed By: #### C BCDIF, MG1, CMP, BHB #### [facility] [address] [address] PROGRESSon 09-28-2019 PROGRESS HNO ID: [id number] Author: Maria T Burton) Papadeonise Service: [facility] Author Type: Nurse Clinician w/ Sensitive Type: Progress Notes Filed: 09/28/2019 9:17 PM Note Text: ----- Attestation signed by Sheila Alberto MD at 09/29/2019 12:00 AM 74yo admitted from ED for DKA secondary to inulin pump malfunction. Sepsis ruled out at the time of admission to the ICU 11:59 PM September 28, 2019. Plan: NPO except meds. DKA protocol. Sheila Alberto MD PHD ----- [facility] Provider Note Call Initiation By: [facility]ospital Primary Reason for Call: Admission to ICU;Hyperglycemia Primary Reason for Call (Other): Had insulin pump failure and came into ED with a blood sugar of 781. Objective Data:: Potassium 5.6, blood sugar 781, WBC 12.21, Anion gap 26, lactate 3.6, BP 181/73 Assessment: DKA Intervention(s): IV fluids;Laboratory tests This patient has the following organ/system impairment(s): : Severe acidosis/alkolosis SIGNATURE: Maria T Wilson APRN.CNP PATIENT NAME: Kylie Russo DATE: September 28 2019 TIME: 09:14 PM Normal [facility] Urinalysison 09-28-2019 Bilirubin, Urine Negative Normal Negative [facility] Comment on above: Performed By: #### U A ####[facility] [address] Clarity (U) Clear Normal Clear [facility] Comment on above: Performed By: #### U A ####[facility] [address] Color (U) Yellow Normal Yellow [facility] Comment on above: Performed By: #### U A ####[facility] [address] [place] [id number] Glucose Ql (U) 3+ mg/dL Critically abnormal Negative [facility] Comment on above: Performed By: #### U A ####[facility] [address] [place] [phone] Hemoglobin/Blood,Ur Negative Normal Negative [facility] Comment on above: Performed By: #### U A ####[facility] [address] [place] [address] Ketones Ql (U) 3+ Critically abnormal Negative [facility] Comment on above: Performed By: #### U A ####[facility] [address] [place] [address] Leukest Negative Normal Negative [facility] Comment on above: Performed By: #### U A ####[facility] [address] [place] [address] Nitrite Ql (U) Negative Normal Negative [facility] Comment on above: Performed By: #### U A ####[facility] [address] [place] [address] pH (Bld) 6.0 Normal 5.0-8.0 [facility] Comment on above: Performed By: #### U A ####[place] [address] Protein (U) [Mass/Vol] Negative Normal Negative [facility] Comment on above: Performed By: #### U A ####[facility] [address] [place] [address] Specific [place], Ur 1.015 Normal 1.005-1 .03 0 [facility] Comment on above: Performed By: #### U A ####[place] [address] Urobilinogen Qn (U) 0.2 E.U./dL Normal 0.2-1.0 [facility] Comment on above: Performed By: #### U A ####[facility] [address] [place] [address] XR CHEST 1V FRONTAL PORTon 0 09-28-2019 XR CHEST 1V FRONTAL PORT * * *Final Repo rt* * * DATE OF EXAM: Sep 28 2019 9:01PM MDX [id number] - XR CHEST 1V FRONTAL PORT / PROCEDURE REASON: Fatigue and malaise * * * * Physician Interpretation * * * * EXAMINATION: CHEST RADIOGRAPH (PORTABLE SINGLE VIEW AP) Exam Date/Time: 09/28/2019 9:01 PM CLINICAL HISTORY: Fatigue and malaise MQ: XCPR_5 Comparison: 03/22/2014 RESULT: Lines, tubes, and devices: None. Lungs and pleura: No consolidation, pneumothorax or effusion. Increased density overlying the lower lung zones is favored to be related to overlying soft tissue. Cardiomediastinal silhouette: Stable cardiomediastinal silhouette. Other: . IMPRESSION: No acute findings. Sanitation Truck Driver: JOAQUIN Transcribe Date/Time: Sep 28 2019 9:04P Dictated by : GURPREET ALCANTAR MD This examination was interpreted and the report reviewed and electronically signed by: GURPREET ALCANTAR MD on Sep 28 2019 9:05PM EST [id number] [facility] ANES Zeb 11-10-2018 ANES POST HNO ID: [id number] Author: Fermin Ray Service: Anesthesiology Author Type: Anesthesiologist Type: Anesthesia PostOp Filed: 11/10/2018 3:45 PM Note Text: POST ANESTHESIA EVALUATION NOTE SERVICE DATE: 11/10/2018 SERVICE TIME: 3:45 PM : 1945 Vitals: 11/10/18 0952 11/10/18 1140 11/10/18 1215 Temp: 36.1 ?C (97 ?F) 36.8 ?C (98.2 ?F) 36.7 ?C (98.1 ?F) 11/10/18 0952 11/10/18 1140 11/10/18 1200 11/10/18 1215 BP: 163/72 102/50 120/57 113/57 11/10/18 0952 11/10/18 1140 11/10/18 1200 11/10/18 1215 Pulse: (!) 56 (!) 52 (!) 53 (!) 54 11/10/18 0952 11/10/18 1140 11/10/18 1200 11/10/18 1215 Resp: 16 16 16 16 11/10/18 0952 11/10/18 1140 11/10/18 1200 11/10/18 1215 SpO2: 98% 99% 100% 98% Validated Vital Signs: Yes POST ANES STATUS: No apparent anesthetic complications. The patient is appropriately hydrated with stable respiratory and cardiovascular status. Patient has safe and adequate airway control. The patient has appropriate pain relief and no significant post operative nausea or vomiting. The patient has achieved baseline mental status. Further assessment by Anesthesia Service: None Other Remarks: SIGNATURE: Fermin Ray MD PATIENT NAME: Kylie Russo DATE: November 10, 2018 TIME: 3:45 PM PAGER/CONTACT #: [phone] [facility] ANES PREOPon 11-10-2018 ANES PREOP HNO ID: [id number] Author: Fermin Ray Service: Anesthesiology Author Type: Anesthesiologist Type: Anesthesia PreOp Filed: 11/10/2018 9:54 AM Note Text: ANESTHESIOLOGY DAY OF SURGERY NOTE SERVICE DATE: 11/10/2018 SERVICE TIME: 9:53 AM : 1945 Procedure(s) (LRB): COLONOSCOPY (N/A) EGD (N/A) Surgeon(s): Daniele Em Estimated body mass index is 33.9 kg/m? as calculated from the following: Height as of this encounter: 161.3 cm (5' 3.5). Weight as of this encounter: 88.2 kg (194 lb 7.1 oz). Most recent hematocrit and potassium results: Hematocrit 41.5 10/06/2015 K 3.7 09/24/2018 ANES DOS/PREOP NOTE: Vitals: 11/10/18 0952 BP: 163/72 Pulse: (!) 56 Resp: 16 Temp: 36.1 ?C (97 ?F) SpO2: 98% Weight: 88.2 kg (194 lb 7.1 oz) Height: 161.3 cm (5' 3.5) ACTIVE PROBLEM LIST Uncontrolled Type 1 Diabetes Mellitus With Ophthalmic Complication (Hcc) Hyperlipidemia Essential Hypertension Coronary Artery Disease Involving [place] Coronary Artery Mild Intermittent Asthma Without Complication Other Forms of Migraine Other Psoriasis Insomnia, Unspecified OSTEOPENIA Esophagitis Type 1 Diabetes Mellitus With Neurological Manifestations (Hcc) CARPAL TUNNEL BILATERRAL Depressive Disorder, Not Elsewhere Classified Anxiety State Rheumatoid Arthritis (Hcc) Anemia, Unspecified Sleep Apnea Vitamin Deficiency Diverticulosis of Colon Cerebral Infarction (Hcc) Lumbar Disc Herniation Restless Legs Syndrome (Rls) Calcifying Tendinitis of Shoulder Venous Insufficiency Thoracic Or Lumbosacral Neuritis Or Radiculitis, Unspecified Cervicalgia Gait Abnormality Bppv (Benign Paroxysmal Positional Vertigo) Obstructive Sleep Apnea Syndrome Mixed Hyperlipidemia Gerd (Gastroesophageal Reflux Disease) Rls (Restless Legs Syndrome) Insomnia Vertigo Ataxia Following Cerebral Infarction Atherosclerosis of [place] Coronary Artery of [place] Heart Without Angina Pectoris Obesity With Serious Comorbidity PAST MEDICAL HISTORY Diagnosis Date - Abnormal mammogram, unspecified left breast - BPV (benign positional vertigo) - CAD (coronary artery disease) - Coronary atherosclerosis of unspecified type of vessel, [place]ed[place] sal[place] or graft - Disorder of bone and cartilage, unspecified - Diverticulosis of colon (without mention of hemorrhage) - Esophagitis - External hemorrhoids without mention of complication - Insomnia - Internal hemorrhoids without mention of complication - Mammographic microcalcification - Other and unspecified hyperlipidemia - Other forms of migraine - Other psoriasis - Postsurgical percutaneous transluminal coronary angioplasty status - Rheumatoid arthritis(714.0) - RLS (restless legs syndrome) - Stroke (cerebrum) (HCC) x3 - Type I (juvenile type) diabetes mellitus with neurological manifestations, not stated as 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.61) - 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, 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) - Unspecified asthma(493.90) - Unspecified essential hypertension - Unspecified hereditary and idiopathic peripheral neuropathy PAST SURGICAL HISTORY Procedure Laterality Date - BREAST BIOPSY - COLONOSCOP W/ OR W/O [facility] SPEC 02/26/2204 Colonoscopy - COLONOSCOP W/ OR W/O [facility] SPEC 08/29/15 Colonoscopy - EGD 04/15/2002 - EXCIS BREAST LES W XRAY MARKER 03/2008 - PAST SURGICAL HISTORY OF tonsilectomy and [...] 2004 - PREOP PLACEMENT NEEDLE LOC - REPAIR ROTATOR CUFF,CHRONIC left rotator cuff - STEREOTACTIC CORE BIOPSY 02/24/08 LEFT - benign FAMILY HISTORY Problem Relation Age of Onset - Cancer Mother breast (diagnosed mid 50's) - Heart Mother valvular - other (Other) Father leukemia (dx'd age 55) - Asthma Paternal Grandmother - Diabetes Paternal Grandmother - Colon Cancer Other none - other (autoimmune def) Daughter Social History: Social History Tobacco Use - Smoking status: Never Smoker - Smokeless tobacco: Never Used Substance Use Topics - Alcohol use: No - Drug use: No No current facility-administered medications on file prior to encounter. Current Outpatient Medications on File Prior to Encounter: clonazePAM (KLONOPIN) 1 mg tablet Take 1 tablet by mouth at bedtime as needed for up to 90 days. amLODIPine (NORVASC) 5 mg tablet Take 5 mg by mouth once daily. hydroxychloroquine (PLAQUENIL) 200 mg tablet Take 1 tablet by mouth twice daily. lansoprazole (PREVACID) 30 mg capsule Take 1 capsule by mouth twice daily. pramipexole (MIRAPEX) 1 mg tablet Take 1 tablet by mouth daily at bedtime. (Patient taking differently: Take 2 mg by mouth daily at bedtime. ) metoprolol tartrate, short acting, (LOPRESSOR) 50 mg tablet Take 1 tablet by mouth twice daily. losartan (COZAAR) 50 mg tablet Take 1 tablet by mouth once daily. atorvastatin (LIPITOR) 40 mg tablet Take 1 tablet by mouth once daily. metoprolol succinate ER (TOPROL XL) 25 mg 24 hr tablet take 1 tablet by mouth twice a day traMADol (ULTRAM) 50 mg tablet Take 50 mg by mouth as needed. aspirin 325 mg tablet Take 1 tablet by mouth once daily. gabapentin (NEURONTIN) 100 mg capsule Take 1 capsule by mouth three times daily. Dr. Trejo LACTOBACILLUS ACIDOPHILUS (PROBIOTIC ORAL) Take by mouth. insulin lispro (HUMALOG) 100 unit/mL injection as directed in Insulin pump up to 110 units daily. Dx 250.61 clopidogrel (PLAVIX) 75 mg tablet Take 1 tablet by mouth once daily. COMPOUNDED PRESCRIPTION Knee High Compression Stockings 20-30 mm, DX: 459.81, Edema-782.3 docusate sodium (COL-RITE) 100 mg capsule Take 1 capsule by mouth twice daily. furosemide (LASIX) 20 mg tablet Take 1 tablet by mouth once daily as needed. acetaminophen (TYLENOL 8 HOUR) 650 mg CR tablet Take 650 mg by mouth every 8 hours as needed. insulin glargine (LANTUS U-100 INSULIN) 100 unit/mL injection 46 units every 24 hr for insulin pump failure traZODone (DESYREL) 50 mg tablet Take 1 tablet by mouth daily at bedtime. adapalene (DIFFERIN) 0.1 % gel Apply 1 application to affected area twice daily. For 4 weeks then decrease to once daily for 2 weeks albuterol HFA (PROAIR HFA) 90 mcg/actuation inhaler Inhale 2 Puffs as instructed every 4 hours as needed. cholecalciferol, Vitamin D3, (VITAMIN D3) 50,000 unit cap capsule Take 1 capsule by mouth once each week. (ONE CAPSULE) FOR VITAMIN D DEFICIENCY polyethylene glycol 3350 (MIRALAX, GLYCOLAX) 17 gram packet Take 1 Packet by mouth once daily. clotrimazole (LOTRIMIN, CLOTRIM) 1 % cream Apply to affected area twice daily. meclizine (ANTIVERT) 25 mg tab Take 25 mg by mouth twice daily. Ammonium Lactate 12-12 % kit Apply to affected area. Insulin Syringe-Needle U-100 (BD ULTRAFINE INSULIN) 1 mL 31 x 5/16 syrg use as directed if pump fails up to 6 times daily fluticasone 50 mcg/actuation nasal spray Use 2 Sprays in each nostril once daily. BIOTIN ORAL Take by mouth. albuterol 2.5 mg /3 mL (0.083 %) INHALATION nebulizer solution Use 3 mL via nebulizer every 6 hours as needed. MULTIVITAMIN ORAL TAB Take one(1) tablet daily. NITROGLYCERIN 0.4 MG/DOSE TL SPRY one every 5 minutes x3 as needed Current Facility-Administered Medications Medication Dose Route Frequency Provider Last Rate Last Dose - NaCl 0.9% iv infusion 30 mL/hr INTRAVENOUS CONTINUOUS Daniele Em Allergies: ALLERGIES Allergen Reactions - Aggrenox [Aspirin-D* MIGRAINES AND VOMITING - Amitriptyline Other: See Comments Confusion, falls - Cephalexin (Bulk) GI Upset - Cymbalta [Duloxetin* Unknown - Doxycycline GI Upset headache - Duricef [Cefadroxil] Hives - Ephedrine tachycardia - Ilosone [Other] Swelling tachycardia - Iodine itching after prolonged use - Levaquin [Levofloxa* Other: See Comments Achilles tendon problem - Lyrica [Pregabalin] Other: See Comments Dizziness at 225mg twice daily - Nortriptyline Other: See Comments vertigo - Percocet [Oxycodone* Unknown - Sulfa (Sulfonamide * Hives blisters DOS EXAM: Adequate NPO status: Yes Anesthetic risks, benefits, alternatives, personnel and consent discussed: Yes Patient agrees to proceed: Yes Previous Anesthesia: No history of adverse event. Airway Assessment: MP 2; Neck ROM: Full ROM without neurologic symptoms; Airway Evaluation: No significant abnormalities Symptoms of Sleep Apnea: Snoring Dentition: Teeth intact Additional Physical Exam: Lungs: Patient health status unchanged since recent history and physical. See history and physical for exam findings. Cardiac: Patient health status unchanged since recent history and physical. See history and physical for exam findings. Additional Pertinent Findings: N/A Blood Products: Not anticipated for this procedure. Anesthetic Plan: MAC with Sedation Pain Management Plan: Parenteral or Oral ASA Class: 3 Other Medical Problems: obesity dm I have interviewed and examined the patient. I have reviewed the medical record and/or the pre-anesthesia evaluation, pertinent labs, and test results. Significant changes in the patient's condition since the History and Physical, not otherwise documented in primary service progress notes: No This contains updated information obtained within 48 hours of Surgery/Procedure. SIGNATURE: Fermin Ray MD PATIENT NAME: Kylie Russo DATE: November 10, 2018 TIME: 9:53 AM CSN: [id number] [facility] HISTORY PHYSICALon HISTORY PHYSICAL HNO ID: [id number] Author: Daniele Em Service: General Surgery Author Type: Physician Type: HANDP Filed: 11/10/2018 9:18 AM Note Text: Kylie Russo is a 73 year old female who presents today to set up surveillance colonoscopy. Her PCP is Dr. Anderson. ? The patient has many co-morbidities including type 1DM, CAD, asthma, HTN and stroke. 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 ? The patient was seen by Dr. Winkler for screening colonoscopy 08/29/15. The procedure report has been reviewed. She was reported to have a significantly tortuous colon. A sessile polyp was removed from the descending colon. ? FINAL DIAGNOSIS Descending colon, polyp, biopsy - Tubulovillous adenoma. ? Dr. Winkler recommended three year surveillance. ? Subjective The patient presents today with complaints of constipation. No longer taking Miralax. She reports that someone took her off it. Having a bowel movement of small marcela, every other day. She will take a stool softener if she goes longer than every other day. We discussed taking the stool softener daily to see if that helps. We can consider a prescription if need be. ? The patient has been taking Prevacid for years. Her last colonoscopy was in 2001. I have recommended that an EGD be done to check the GE junction. She denies any dysphagia. ? ? Review of Systems Constitutional: Negative for appetite change and unexpected weight change. HENT: Negative for dental problem, mouth sores and trouble swallowing. Eyes: Negative for visual disturbance. Respiratory: Negative for cough, shortness of breath and wheezing. Asthma and allergies Cardiovascular: Negative for chest pain and palpitations. Taking plavix and asa Gastrointestinal: Positive for abdominal pain (related to constipation) and constipation (as reported above). Negative for anal bleeding, blood in stool, nausea and vomiting. Endocrine: Negative for polydipsia and polyuria. Type 1 DM Genitourinary: Negative for difficulty urinating. Musculoskeletal: Positive for arthralgias, back pain and myalgias. Seeing pain management Allergic/Immunologic: Negative for food allergies and immunocompromised state. Neurological: Positive for numbness (hands- related to arthritis). Hematological: Taking Plavix Psychiatric/Behavioral: The patient is not nervous/anxious. ? ? ? PAST?MEDICAL?HISTORY PAST MEDICAL HISTORY Diagnosis Date - Abnormal mammogram, unspecified ? ? left breast - BPV (benign positional vertigo) ? - CAD (coronary artery disease) ? - Coronary atherosclerosis of unspecified type of vessel, confederated salish or graft ? - Disorder of bone and cartilage, unspecified ? - Diverticulosis of colon (without mention of hemorrhage) ? - Esophagitis ? - External hemorrhoids without mention of complication ? - Insomnia ? - Insomnia, unspecified ? - Internal hemorrhoids without mention of complication ? - Mammographic microcalcification ? - Other and unspecified hyperlipidemia ? - Other forms of migraine ? - Other psoriasis ? - Postsurgical percutaneous transluminal coronary angioplasty status ? - Rheumatoid arthritis(714.0) ? - RLS (restless legs syndrome) ? - Stroke (cerebrum) (HCC) ? ? x3 - Type I (juvenile type) diabetes mellitus with neurological manifestations, not stated as 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.61) ? 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 - Unspecified asthma(493.90) ? - Unspecified essential hypertension ? - Unspecified hereditary and idiopathic peripheral neuropathy ? ? ? PAST?SURGICAL?HISTORY PAST SURGICAL HISTORY Procedure Laterality Date - BREAST BIOPSY ? ? - COLONOSCOP W/ OR W/O [facility] SPEC ? 02/26/2204 ? Colonoscopy - COLONOSCOP W/ OR W/O [facility] SPEC ? 08/29/15 ? Colonoscopy - EGD ? 04/15/2002 - EXCIS BREAST LES W XRAY MARKER ? 03/2008 - PAST SURGICAL HISTORY OF ? ? ? tonsilectomy and adenoidectomy - PAST SURGICAL HISTORY OF ? ? ? right breast lumpectomy - PAST SURGICAL HISTORY OF ? ? ? x 3 - PAST SURGICAL HISTORY OF ? 1992 ? right thumb trigger finger - PAST SURGICAL HISTORY OF ? ? ? hand surgery - PAST SURGICAL HISTORY OF ? ? ? nose surgery - PAST SURGICAL HISTORY OF ? age 17 ? axillary cyst removal - PAST SURGICAL HISTORY OF ? 2000 ? heart cath with stent placement - PAST SURGICAL HISTORY OF ? ? ? CARDIAC CAATH 2000, 2001, AND 2004 - PREOP PLACEMENT NEEDLE LOC ? ? - REPAIR ROTATOR CUFF,CHRONIC ? ? ? left rotator cuff - STEREOTACTIC CORE BIOPSY ? 02/24/08 ? LEFT - benign ? ? FAMILY?HISTORY FAMILY HISTORY Problem Relation Age of Onset - Cancer Mother ? ? breast (diagnosed mid 50's) - Heart Mother ? ? valvular - other (Other) Father ? ? leukemia (dx'd age 55) - Asthma Paternal Grandmother ? - Diabetes Paternal Grandmother ? - Colon Cancer Other ? ? none - other (autoimmune def) Daughter ? ? ? CURRENT?MEDICATIONS Current Outpatient Medications Medication Sig Dispense Refill - amLODIPine (NORVASC) 5 mg tablet Take 5 mg by mouth once daily. ? 1 - furosemide (LASIX) 20 mg tablet Take 1 tablet by mouth once daily as needed. 30 tablet 2 - clonazePAM (KLONOPIN) 1 mg tablet Take 1 tablet by mouth at bedtime as needed for up to 30 days. 30 tablet 0 - hydroxychloroquine (PLAQUENIL) 200 mg tablet Take 1 tablet by mouth twice daily. 180 tablet 3 - lansoprazole (PREVACID) 30 mg capsule Take 1 capsule by mouth twice daily. 180 capsule 3 - acetaminophen (TYLENOL 8 HOUR) 650 mg CR tablet Take 650 mg by mouth every 8 hours as needed. ? ? - insulin glargine (LANTUS U-100 INSULIN) 100 unit/mL injection 46 units every 24 hr for insulin pump failure 10 mL 1 - pramipexole (MIRAPEX) 1 mg tablet Take 1 tablet by mouth daily at bedtime. 90 tablet 1 - metoprolol tartrate, short acting, (LOPRESSOR) 50 mg tablet Take 1 tablet by mouth twice daily. 180 tablet 1 - losartan (COZAAR) 50 mg tablet Take 1 tablet by mouth once daily. 90 tablet 3 - traZODone (DESYREL) 50 mg tablet Take 1 tablet by mouth daily at bedtime. 30 tablet 2 - atorvastatin (LIPITOR) 40 mg tablet Take 1 tablet by mouth once daily. 90 tablet 3 - metoprolol succinate ER (TOPROL XL) 25 mg 24 hr tablet take 1 tablet by mouth twice a day 180 tablet 3 - traMADol (ULTRAM) 50 mg tablet Take 50 mg by mouth once daily. ? ? - adapalene (DIFFERIN) 0.1 % gel Apply 1 application to affected area twice daily. For 4 weeks then decrease to once daily for 2 weeks 15 g 0 - albuterol HFA (PROAIR HFA) 90 mcg/actuation inhaler Inhale 2 Puffs as instructed every 4 hours as needed. 1 Inhaler 0 - cholecalciferol, Vitamin D3, (VITAMIN D3) 50,000 unit cap capsule Take 1 capsule by mouth once each week. (ONE CAPSULE) FOR VITAMIN D DEFICIENCY 12 capsule 3 - polyethylene glycol 3350 (MIRALAX, GLYCOLAX) 17 gram packet Take 1 Packet by mouth once daily. ? 0 - magnesium hydroxide 2,400 mg/10 mL susp Take 10 mL by mouth once daily as needed. ? 0 - aspirin 325 mg tablet Take 1 tablet by mouth once daily. 90 tablet 3 - gabapentin (NEURONTIN) 100 mg capsule Take 1 capsule by mouth three times daily. Dr. Trejo ? ? - LACTOBACILLUS ACIDOPHILUS (PROBIOTIC ORAL) Take by mouth. ? ? - insulin lispro (HUMALOG) 100 unit/mL injection as directed in Insulin pump up to 110 units daily. Dx 250.61 12 Vial 3 - clotrimazole (LOTRIMIN, CLOTRIM) 1 % cream Apply to affected area twice daily. ? ? - meclizine (ANTIVERT) 25 mg tab Take 25 mg by mouth twice daily. ? ? - Ammonium Lactate 12-12 % kit Apply to affected area. ? ? - Insulin Syringe-Needle U-100 (BD ULTRAFINE INSULIN) 1 mL 31 x 5/16 syrg use as directed if pump fails up to 6 times daily 100 Syringe 3 - fluticasone 50 mcg/actuation nasal spray Use 2 Sprays in each nostril once daily. ? ? - clopidogrel (PLAVIX) 75 mg tablet Take 1 tablet by mouth once daily. 90 tablet 3 - BIOTIN ORAL Take by mouth. ? ? - COMPOUNDED PRESCRIPTION Knee High Compression Stockings 20-30 mm, DX: 459.81, Edema-782.3 4 Each 1 - albuterol 2.5 mg /3 mL (0.083 %) INHALATION nebulizer solution Use 3 mL via nebulizer every 6 hours as needed. 1 Package 0 - MULTIVITAMIN ORAL TAB Take one(1) tablet daily. ? 0 - NITROGLYCERIN 0.4 MG/DOSE TL SPRY one every 5 minutes x3 as needed ? 0 ? No current facility-administered medications for this visit. ? ? ? SOCIAL HISTORY: Patient is . She has never smoked. She reports her alcohol use as never. ? Objective Blood pressure 157/61, pulse (!) 56, height 161.3 cm (5' 3.5), weight 92.1 kg (203 lb). ? Physical Exam Constitutional: She is oriented to person, place, and time. She appears well-developed and well-nourished. No distress. Wearing compression knee high hose. HENT: Head: Normocephalic and atraumatic. Mouth/Throat: Oropharynx is clear and moist. No oropharyngeal exudate. Eyes: Conjunctivae are normal. No scleral icterus. Neck: Neck supple. No tracheal deviation present. Cardiovascular: Normal rate, regular rhythm and normal heart sounds. Pulmonary/Chest: Effort normal and breath sounds normal. No respiratory distress. Abdominal: Soft. Bowel sounds are normal. She exhibits no distension and no mass. There is no tenderness. There is no rebound and no guarding. Musculoskeletal: She exhibits no edema. Lymphadenopathy: She has no cervical adenopathy. Neurological: She is alert and oriented to person, place, and time. Skin: Skin is warm and dry. She is not diaphoretic. Psychiatric: She has a normal mood and affect. Her behavior is normal. Judgment and thought content normal. Nursing note and vitals reviewed. ? 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 This patient will be scheduled for an upper endoscopy and colonoscopy, with MAC. She will be using 2 dulcolax tablets, followed by the Deep prep. The preparation, as well as the procedure, has been explained in detail. The risks, benefits, anticipated outcomes and possible complications were mentioned. I explained the procedure in understandable terms and the patient was given printed material concerning the planned procedure. The patient had the opportunity to ask questions concerning the planned procedure. The patient freely consents to the planned procedure. ? The patient is made aware of not needing to hold Plavix since Dr. Em will be doing her procedures. ? The patient is asked to call with any questions for concerns, or should there be any change in health status between now and the scheduled procedure. ? I have personally interviewed and examined this patient. I have read the information the MA documented in this encounter. I spent 30 minutes in the visit, with more than 50% of the total [id number] time of the visit in counseling / coordination of care. ? Suzanne Barrios RN HAIR BOILER OPERATOR.CROP AND SOIL TECHNICIAN ? [facility] PT EDon 11-10-2018 PT ED HNO ID: [id number] Author: Angel FerrellRn) KING Castellanos Service: Nursing Author Type: Registered Nurse Type: Patient Education Filed: 11/10/2018 9:32 AM Note Text: PRE OP LEARNING ASSESSMENT PROCEDURE/SURGERY: SURGERY: Colonoscopy and EGD READINESS TO LEARN COGNITIVE ABILITY: Alert and oriented MOTIVATION TO LEARN: Eager FAMILY SUPPORT: High - Very involved in pt care PATIENT LEARNS BEST BY: Written Instruction - Hand-outs Verbal Instruction FACTORS AFFECTING LEARNING: None PHYSICAL LIMITATIONS AFFECTING LEARNING: None Electronically Signed By: Angel Castellanos RN In Department: [facility] ENDOSCOPY [facility] SURGICAL PATHOLOGYon 019 SURGICAL PATHOLOGY ADDENDUM PRESENT Specimen originated from [facility] Specimen #: [id number] Submitting Physician: DANIELE EM MD FINAL DIAGNOSIS 1. 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 - Morphologic features of eosinophilic esophagitis are not seen. 2. Gastric antrum, biopsy (C) - Gastric antral/body mucosa with mild chronic inflammation. - No morphologic evidence of H. pylori organisms. 3. Polyp, descending colon, polypectomy (D) - Fragments of tubular adenoma. COMMENT 1. Sections from the gastroesophageal junction and mid esophagus demonstrate similar histologic findings that are more prominent within the mid esophagus biopsy characterized by squamous epithelium with mild basal cell hyperplasia, spongiosis, focal parakeratosis, patchy increased intraepithelial lymphocytes, and rare Civatte bodies (dyskeratotic keratinocytes). The histologic findings are nonspecific and can be seen with medications (including NSAIDs, thiazides), viral infections, Crohn's disease, pill esophagitis, and as an esophageal manifestation of connective tissue diseases, erythema multiforme, or lichen planus, among other etiologies. Clinical correlation is recommended. Based on the presence of focal parakeratosis, a PAS-fungus stain will be performed on a financial services representative section (block B1) to evaluate for possible fungal organisms, and the results will be reported in an addendum. Ángel 11/11/2018 Diamond Mistry M.D. (Electronic Signature) SPECIMEN SUBMITTED A: GE JUNCTION, BIOPSY B: MID ESOPHAGUS C: ANTRAL BX D: DESCENDING POLYP ADDENDUM Date Ordered: 11/12/2018 Date Reported: 11/15/2018 2. A PAS-fungus stain with appropriately staining controls performed on block B1 is negative for fungal organisms. Craig 11/12/2018 Addendum Pathologist: Diamond Mistry M.D. Electronic Signature CLINICAL DATA GERD, HX OF POLYPS, LMP: MENOPAUSAL GROSS DESCRIPTION A. Received in formalin is one piece of bustos, soft tissue measuring 0.3 x 0.2 x 0.2 cm. Totally submitted in one cassette. B. Received in formalin is one piece of bustos, soft tissue measuring 0.6 x 0.2 x 0.1 cm. Totally submitted in one cassette. C. Received in formalin is one piece of bustos, soft tissue measuring 0.5 x 0.2 x 0.2 cm. Totally submitted in one cassette. D. Received in formalin are multiple pieces of bustos, soft tissue aggregating to 1.5 x 0.3 x 0.2 cm. Totally submitted in one cassette. Gross examination performed at [facility], [address] [place] [address] 11/10/2018 5:39:44 PM Date of Report: 11/12/2018 Date of Procedure: 11/10/2018 Date of Receipt: 11/10/2018 Submitted by: DANIELE EM MD Location: [facility] Diagnostic interpretation performed at [facility], [address] [place] [address]. CLIA Number: [id number] [facility] HOSPon 10-27-2018 HOSP Patient:Geoff Russo MRN: Height:5' 3.504(1.613 m) Weight:194 lb 6.4 oz (88.179 kg) Outpatient Medications as of 11/10/18: cephALEXin (KEFLEX) 500 mg capsule clonazePAM (KLONOPIN) 1 mg tablet docusate sodium (COL-RITE) 100 mg capsule amLODIPine (NORVASC) 5 mg tablet furosemide (LASIX) 20 mg tablet hydroxychloroquine (PLAQUENIL) 200 mg tablet lansoprazole (PREVACID) 30 mg capsule acetaminophen (TYLENOL 8 HOUR) 650 mg CR tablet insulin glargine (LANTUS U-100 INSULIN) 100 unit/mL injection pramipexole (MIRAPEX) 1 mg tablet metoprolol tartrate, short acting, (LOPRESSOR) 50 mg tablet losartan (COZAAR) 50 mg tablet traZODone (DESYREL) 50 mg tablet atorvastatin (LIPITOR) 40 mg tablet metoprolol succinate ER (TOPROL XL) 25 mg 24 hr tablet traMADol (ULTRAM) 50 mg tablet adapalene (DIFFERIN) 0.1 % gel albuterol HFA (PROAIR HFA) 90 mcg/actuation inhaler cholecalciferol, Vitamin D3, (VITAMIN D3) 50,000 unit cap capsule polyethylene glycol 3350 (MIRALAX, GLYCOLAX) 17 gram packet aspirin 325 mg tablet gabapentin (NEURONTIN) 100 mg capsule LACTOBACILLUS ACIDOPHILUS (PROBIOTIC ORAL) insulin lispro (HUMALOG) 100 unit/mL injection clotrimazole (LOTRIMIN, CLOTRIM) 1 % cream meclizine (ANTIVERT) 25 mg tab Ammonium Lactate 12-12 % kit Insulin Syringe-Needle U-100 (BD ULTRAFINE INSULIN) 1 mL 31 x 5/16 syrg fluticasone 50 mcg/actuation nasal spray clopidogrel (PLAVIX) 75 mg tablet BIOTIN ORAL COMPOUNDED PRESCRIPTION albuterol 2.5 mg /3 mL (0.083 %) INHALATION nebulizer solution MULTIVITAMIN ORAL TAB NITROGLYCERIN 0.4 MG/DOSE TL SPRY Admission/Clinic Administered Medications as of 11/10/18: NaCl 0.9% iv infusion Problem List: Uncontrolled type 1 diabetes mellitus with ophthalmic complication (HCC) [E10.39, E10.65] Hyperlipidemia [E78.5] Essential hypertension [I10] Coronary artery disease involving confed[place] coronary artery [I25.10] Mild intermittent asthma without complication [J45.20] Other forms of migraine [346.8] Other psoriasis [L40.8] Insomnia, unspecified [G47.00] OSTEOPENIA [M89.9, M94.9] Esophagitis [530.1] Type 1 diabetes mellitus with neurological manifestations (HCC) [E10.49] CARPAL TUNNEL BILATERRAL [M13.149] Depressive disorder, not elsewhere classified [F32.9] Anxiety state [F41.1] Rheumatoid arthritis (HCC) [M06.9] Anemia, unspecified [D64.9] Sleep apnea [G47.30] Vitamin deficiency [E56.9] Diverticulosis of colon [K57.30] Cerebral infarction (HCC) [I63.9] 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] Restless legs syndrome (RLS) [G25.81] Calcifying tendinitis of shoulder [M75.30] Venous insufficiency [I87.2] Thoracic or lumbosacral neuritis or radiculitis, unspecified [QZV0976] Cervicalgia [M54.2] Gait abnormality [R26.9] BPPV (benign paroxysmal positional vertigo) [H81.10] Obstructive sleep apnea syndrome [G47.33] Mixed hyperlipidemia [E78.2] GERD (gastroesophageal reflux disease) [K21.9] RLS (restless legs syndrome) [G25.81] Insomnia [G47.00] Vertigo [R42] 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] Atherosclerosis of confederated salish coronary artery of confederated salish heart without angina pectoris [I25.10] Obesity with serious comorbidity [E66.9] Allergies: Aggrenox [Aspirin-Dipyridamole] Amitriptyline Cephalexin (Bulk) Cymbalta [Duloxetine] Doxycycline Duricef [Cefadroxil] Ephedrine ilosone [Other] Iodine Levaquin [Levofloxacin] Lyrica [Pregabalin] Nortriptyline Percocet [Oxycodone-Acetaminophen] Sulfa (Sulfonamide Antibiotics) Date Verified: 11/10/18 Lab Values No results within the last 30 days for the following basenames: K,HCT Progress Notes ([facility]): Clinton Bess RN, RN 11/08/2018 3:08 PM Signed Pt called to tell us she has reduced the dose to 80% this morning in preparation for her colonoscopy. She reports she is having a low blood sugars now to 59mg/dL and wanted more advice. She has regular hayder olayinka on hand during the liquid diet stage of prep and we reviewed how to treat a low. She has previously used grape juice to treat lows but was told not to take any red beverages or popsicles during her prep. Pt requesting more information on what to set the pump to in order to avoid lows during remainder of her prep and on the procedure day. Pt previously told to lower dose to 80% during prep and 75% on day of procedure. Clinton Bess, RN, RN 11/08/2018 3:25 PM Signed Called back and reviewed Shwetha Aragon's recommendation of setting pump to 75% during prep and procedure day. Reviewed treatment of lows while on clear liquid diet, pt reported she treated after getting off phone earlier and was up to 95 mg/dL at this time. Shwetha Aragon APRN.CROP AND SOIL TECHNICIAN 11/08/2018 5:32 PM Signed Did discuss with Clinton Bess RN, CDE as he states Progress Notes ([facility]): Megan Mcbride RN 11/04/2018 4:56 PM Signed Pt called, verified by name and birthdate. Pt was given keflex at urgent care today and she is allergic to it (it is listed as an allergy). Pt states she feels her heart beating out of my chest . Pt states this is normal when she takes a medicine she is allergic to. Pt denies chest pain, denies shortness of breath, denies breathing/swallowing difficulty. Please advise new medication for pt. Advised pt not to take another dose of keflex at this time. Megan ANDERSON MD 11/05/2018 12:46 PM Signed She is allergic to doxy and bactrim and keflex, is she allergic to penicillin? It is not on her list of allergy medication. The only other one left is clindamycin Ana Paula Martinattroccsara HVAC RESIDENTIAL SERVICE TECHNICIAN 11/05/2018 1:50 PM Signed Phoned patient and mailbox is full can not leave message. Sunshine Marks HVAC RESIDENTIAL SERVICE TECHNICIAN 11/06/2018 10:13 AM Signed call to patient again today, no answer and mailbox full , unable to leave message. Fiorella Short HVAC RESIDENTIAL SERVICE TECHNICIAN 11/09/2018 9:22 AM Signed 3rd attempt to contact pt, no answer/voicemail full. [employer] message sent to pt. [facility] Vital Signs Date Time Vital Sign Value Performing Clinician Facility 01-17-2025 14:51-0400 Body height 154.[address] Alcira Anderson MD Work Phone: [facility] 01-17-2025 14:51-0400 Body mass index (BMI) [Ratio] 26.4 kg/m2 Dr. Alcira Anderson MD Work Phone: [facility] 01-17-2025 14:51-0400 Body weight 63.[address] Alcira Anderson MD Work Phone: [facility] 01-10-2025 09:59-0400 Body mass index (BMI) [Ratio] 26.2 kg/m2 Dr. Alcira Anderson MD Work Phone: 6(049)[phone] [place] [address] 01-10-2025 09:59-0400 Body weight 64.[address] Alcira Anderson MD Work Phone: 5(359)979-792091 [place] [address] 01-10-2025 09:59-0400 Diastolic blood pressure 55 mm[Hg] Dr. Alcira Anderson MD Work Phone: 4(097)918-093391 [place] [address] 01-10-2025 09:59-0400 Heart rate 60 /min Dr. Alcira Anderson MD Work Phone: 4(223)630-065891 [place] [address] 01-10-2025 09:59-0400 Respiratory rate 16 /min Dr. Alcira Anderson MD Work Phone: 7(505)160-194991 [place] [address] 01-10-2025 09:59-0400 Systolic blood pressure 110 mm[Hg] Dr. Alcira Anderson MD Work Phone: 2(331)245-666291 [place] [address] 11-29-2024 12:00-0400 Diastolic blood pressure 64 mm[Hg] Alcira Anderson MD Work Phone: 7(758)038-450901 [place] [address] 11-29-2024 12:00-0400 Heart rate 57 /min Alcira Anderson MD Work Phone: 0(181)[phone] [place] [address] 11-29-2024 12:00-0400 Systolic blood pressure 153 mm[Hg] Alcira Anderson MD Work Phone: 1(503)889-023601 [place] [address] 11-29-2024 11:05-0400 Body mass index (BMI) [Ratio] 26.81 kg/m2 Alcira Anderson MD Work Phone: 9(300)758-693001 [place] [address] 11-29-2024 11:05-0400 Body weight 66.5 kg Alcira Anderson MD Work Phone: 1(167)[phone] [place] [address] 11-29-2024 11:05-0400 Respiratory rate 16 /min Alcira Anderson MD Work Phone: [facility] 11-06-2024 10:36-0400 Body mass index (BMI) [Ratio] 26.61 kg/m2 Jonas Red APRN.CNP Work Phone: [facility] 11-06-2024 10:36-0400 Body temperature 97.2 [degF] [facility] HAIR BOILER OPERATOR.CROP AND SOIL TECHNICIAN Work Phone: [facility] 11-06-2024 10:36-0400 Body weight 66 kg [facility] HAIR BOILER OPERATOR.CROP AND SOIL TECHNICIAN Work Phone: [facility] 11-06-2024 10:36-0400 Diastolic blood pressure 74 mm[Hg] [facility] HAIR BOILER OPERATOR.CROP AND SOIL TECHNICIAN Work Phone: [facility] 11-06-2024 10:36-0400 Heart rate 66 /min [facility]aspreston [facility] HAIR BOILER OPERATOR.CROP AND SOIL TECHNICIAN Work Phone: [facility] 11-06-2024 10:36-0400 Respiratory rate 20 /min [facility] HAIR BOILER OPERATOR.CROP AND SOIL TECHNICIAN Work Phone: [facility] 11-06-2024 10:36-0400 SaO2% (BldA) [Mass fraction] 99 % Jonas [facility] HAIR BOILER OPERATOR.CROP AND SOIL TECHNICIAN Work Phone: [facility] 11-06-2024 10:36-0400 Systolic blood pressure 128 mm[Hg] [facility] HAIR BOILER OPERATOR.CROP AND SOIL TECHNICIAN Work Phone: [facility] 09-20-2024 14:38-0400 Body mass index (BMI) [Ratio] 27.21 kg/m2 Eva Nielsen MD Work Phone: [facility] 09-20-2024 14:38-0400 Body temperature 98.49 [degF] Eva Nielsen MD Work Phone: [facility] 09-20-2024 14:38-0400 Body weight 67.5 kg Eva Nielsen MD Work Phone: [facility] 09-20-2024 14:38-0400 Diastolic blood pressure 70 mm[Hg] Eva Nielsen MD Work Phone: [facility] 09-20-2024 14:38-0400 Heart rate 70 /min Eva Nielsen MD Work Phone: [facility] 09-20-2024 14:38-0400 SaO2% (BldA) [Mass fraction] 98 % Eva Nielsen MD Work Phone: [facility] 09-20-2024 14:38-0400 Systolic blood pressure 140 mm[Hg] Eva Nielsen MD Work Phone: [facility] 09-13-2024 10:27-0400 Body height 160 cm Omayra Herndon CROP AND SOIL TECHNICIAN Work Phone: [facility] 09-13-2024 10:27-0400 Body mass index (BMI) [Ratio] 26.36 kg/m2 Omayra Yanick DUMONT Work Phone: [facility] 09-13-2024 10:27-0400 Body temperature 96.6 [degF] Omayra Herndon CNP Work Phone: [facility] 09-13-2024 10:27-0400 Body weight 67.5 kg Omayra Herndon CNP Work Phone: [facility] 09-13-2024 10:27-0400 Diastolic blood pressure 70 mm[Hg] Omayra Yanick DUMONT Work Phone: [facility] 09-13-2024 10:27-0400 Heart rate 64 /min Omayra Yanick DUMONT Work Phone: [facility] 09-13-2024 10:27-0400 Respiratory rate 16 /min Omayra Herndon CNP Work Phone: [facility] 09-13-2024 10:27-0400 SaO2% (BldA) [Mass fraction] 98 % Omayra Herndon CNP Work Phone: [facility] Comment on above: r/a 09-13-2024 10:27-0400 Systolic blood pressure 118 mm[Hg] Omayra Paulwiliam DUMONT Work Phone: [facility] 09-05-2024 10:54-0400 Diastolic blood pressure 56 mm[Hg] Alcira Anderson MD Work Phone: [facility] 09-05-2024 10:54-0400 Heart rate 72 /min Alcira Anderson MD Work Phone: [facility] 09-05-2024 10:54-0400 Systolic blood pressure 147 mm[Hg] Alcira Anderson MD Work Phone: [facility] 09-05-2024 10:03-0400 Body height 157.5 cm Alcira Anderson MD Work Phone: [facility] 09-05-2024 10:03-0400 Body mass index (BMI) [Ratio] 28.09 kg/m2 Alcira Anderson MD Work Phone: [facility] 09-05-2024 10:03-0400 Body weight 69.67 kg Alcira Anderson MD Work Phone: [facility] 09-05-2024 10:03-0400 Respiratory rate 16 /min Alcira Anderson MD Work Phone: [facility] 09-05-2024 10:03-0400 SaO2% (BldA) [Mass fraction] 99 % Alcira Anderson MD Work Phone: [facility] 08-29-2024 07:50-0400 Body mass index (BMI) [Ratio] 27.82 kg/m2 Shobha Vines APRN.CROP AND SOIL TECHNICIAN Work Phone: [facility] 08-29-2024 07:50-0400 Body temperature 97.3 [degF] Shobha Vines APRN.CROP AND SOIL TECHNICIAN Work Phone: [facility] 08-29-2024 07:50-0400 Body weight 69 kg Shobha Vines APRN.CROP AND SOIL TECHNICIAN Work Phone: [facility] 08-29-2024 07:50-0400 Diastolic blood pressure 64 mm[Hg] Shobha Vines APRN.CROP AND SOIL TECHNICIAN Work Phone: [facility] 08-29-2024 07:50-0400 Heart rate 80 /min Shobha Vines APRN.CROP AND SOIL TECHNICIAN Work Phone: [facility] 08-29-2024 07:50-0400 Respiratory rate 18 /min Shobha Vines HAIR BOILER OPERATOR.CROP AND SOIL TECHNICIAN Work Phone: [facility] 08-29-2024 07:50-0400 SaO2% (BldA) [Mass fraction] 100 % Shobha Vines APRN.CROP AND SOIL TECHNICIAN Work Phone: [facility] 08-29-2024 07:50-0400 Systolic blood pressure 122 mm[Hg] Shobha Vines APRN.CROP AND SOIL TECHNICIAN Work Phone: [facility] 07-26-2024 09:15-0400 Body height 160 cm Omayra Herndon CNP Work Phone: [facility] 07-26-2024 09:15-0400 Body mass index (BMI) [Ratio] 26.93 kg/m2 Omayra Herndon CNP Work Phone: [facility] 07-26-2024 09:15-0400 Body temperature 97.3 [degF] Omayra Herndon CROP AND SOIL TECHNICIAN Work Phone: [facility] 07-26-2024 09:15-0400 Body weight 68.95 kg Omayra Herndon CNP Work Phone: [facility] 07-26-2024 09:15-0400 Diastolic blood pressure 78 mm[Hg] Omayra Herndon CROP AND SOIL TECHNICIAN Work Phone: [facility] 07-26-2024 09:15-0400 Heart rate 63 /min Omayra Herndon CROP AND SOIL TECHNICIAN Work Phone: [facility] 07-26-2024 09:15-0400 Respiratory rate 16 /min Omayra Herndon CROP AND SOIL TECHNICIAN Work Phone: [facility] 07-26-2024 09:15-0400 SaO2% (BldA) [Mass fraction] 99 % Omayra Herndon CROP AND SOIL TECHNICIAN Work Phone: [facility] Comment on above: R/A 07-26-2024 09:15-0400 Systolic blood pressure 118 mm[Hg] Omayra Herndon CNP Work Phone: [facility] 06-06-2024 07:22-0500 Body mass index (BMI) [Ratio] 27.44 kg/m2 Hernesto Older HAIR BOILER OPERATOR.CROP AND SOIL TECHNICIAN Work Phone: [facility] 06-06-2024 07:22-0500 Body weight 68.04 kg Hernesto Older HAIR BOILER OPERATOR.CROP AND SOIL TECHNICIAN Work Phone: [facility] 06-06-2024 07:22-0500 Diastolic blood pressure 62 mm[Hg] Hernesto Older HAIR BOILER OPERATOR.CROP AND SOIL TECHNICIAN Work Phone: [facility] 06-06-2024 07:22-0500 Heart rate 66 /min Hernesto Older HAIR BOILER OPERATOR.CROP AND SOIL TECHNICIAN Work Phone: [facility] 06-06-2024 07:22-0500 Respiratory rate 16 /min Hernesto Older HAIR BOILER OPERATOR.CROP AND SOIL TECHNICIAN Work Phone: [facility] 06-06-2024 07:22-0500 SaO2% (BldA) [Mass fraction] 97 % Hernesto Older HAIR BOILER OPERATOR.CROP AND SOIL TECHNICIAN Work Phone: [facility] 06-06-2024 07:22-0500 Systolic blood pressure 118 mm[Hg] Hernesto Older HAIR BOILER OPERATOR.CROP AND SOIL TECHNICIAN Work Phone: [facility] 05-30-2024 10:14-0500 Body height 157.5 cm Roland Grajeda MD Work Phone: [facility] 05-30-2024 10:14-0500 Body mass index (BMI) [Ratio] 27.44 kg/m2 Roland Grajeda MD Work Phone: [facility] 05-30-2024 10:14-0500 Body temperature 97.81 [degF] Roland Grajeda MD Work Phone: [facility] 05-30-2024 10:14-0500 Body weight 68.04 kg Roland Grajeda MD Work Phone: [facility] Comment on above: per patient 05-30-2024 10:14-0500 Diastolic blood pressure 69 mm[Hg] Roland Grajeda MD Work Phone: [facility] 05-30-2024 10:14-0500 Heart rate 57 /min Roland Grajeda MD Work Phone: [facility] 05-30-2024 10:14-0500 Systolic blood pressure 112 mm[Hg] Roland Grajeda MD Work Phone: [facility] 05-23-2024 14:40-0500 Body height 154.9 cm Eva Nielsen MD Work Phone: [facility] 05-23-2024 14:40-0500 Body mass index (BMI) [Ratio] 28.34 kg/m2 Eva Nielsen MD Work Phone: [facility] 05-23-2024 14:40-0500 Body weight 68.04 kg Eva Nielsen MD Work Phone: [facility] 05-23-2024 14:40-0500 Diastolic blood pressure 68 mm[Hg] Eva Nielsen MD Work Phone: [facility] 05-23-2024 14:40-0500 Heart rate 69 /min Eva Nielsen MD Work Phone: [facility] 05-23-2024 14:40-0500 Respiratory rate 21 /min Eva Nielsen MD Work Phone: [facility] 05-23-2024 14:40-0500 SaO2% (BldA) [Mass fraction] 98 % Eva Nielsen MD Work Phone: [facility] 05-23-2024 14:40-0500 Systolic blood pressure 128 mm[Hg] Eva Nielsen MD Work Phone: [facility] 05-17-2024 10:10-0500 Body height 157.[address] Alcira Anderson MD Work Phone: [facility] 05-17-2024 10:06-0500 Body mass index (BMI) [Ratio] 28 kg/m2 Dr. Alcira Anderson MD Work Phone: [facility] 05-17-2024 10:06-0500 Body weight 69.[address] Alcira Anderson MD Work Phone: 4(713)208-727991 [place] [address] 05-17-2024 10:06-0500 Diastolic blood pressure 72 mm[Hg] Dr. Alcira Anderson MD Work Phone: 4(449)359-495391 [place] [address] 05-17-2024 10:06-0500 Heart rate 61 /min Dr. Alcira Anderson MD Work Phone: 9(949)535-012491 [place] [address] 05-17-2024 10:06-0500 Respiratory rate 18 /min Dr. Alcira Anderson MD Work Phone: 7(791)998-176691 [place] [address] 05-17-2024 10:06-0500 SaO2% (BldA) [Mass fraction] 98 % Dr. Alcira Anderson MD Work Phone: 3(553)572-627491 [place] [address] 05-17-2024 10:06-0500 Systolic blood pressure 135 mm[Hg] Dr. Alcira Anderson MD Work Phone: 9(801)615-405291 [place] [address] 02-16-2024 11:42-0400 Body height 154.9 cm Eva Nielsen MD Work Phone: 9(722)161-022001 [place] [address] 02-16-2024 11:42-0400 Body mass index (BMI) [Ratio] 30.04 kg/m2 Eva Nielsen MD Work Phone: 7(065)091-573701 [place] [address] 02-16-2024 11:42-0400 Body weight 72.12 kg Eva Nielsen MD Work Phone: 2(899)911-164601 [place] [address] 02-16-2024 11:42-0400 Diastolic blood pressure 82 mm[Hg] Eva Nielsen MD Work Phone: 0(393)169-347201 [place] [address] 02-16-2024 11:42-0400 Heart rate 80 /min Eva Nielsen MD Work Phone: 8(882)093-472201 [place] [address] 02-16-2024 11:42-0400 Respiratory rate 20 /min Eva Nielsen MD Work Phone: 5(767)708-431101 [place] [address] 02-16-2024 11:42-0400 SaO2% (BldA) [Mass fraction] 98 % Eva Nielsen MD Work Phone: [facility] 02-16-2024 11:42-0400 Systolic blood pressure 120 mm[Hg] Eva Nielsen MD Work Phone: [facility] 01-25-2024 13:22-0400 Body mass index (BMI) [Ratio] 29.84 kg/m2 Hernesto Older HAIR BOILER OPERATOR.CROP AND SOIL TECHNICIAN Work Phone: [facility] 01-25-2024 13:22-0400 Body temperature 97.7 [degF] Hernesto Older HAIR BOILER OPERATOR.CROP AND SOIL TECHNICIAN Work Phone: [facility] 01-25-2024 13:22-0400 Body weight 72.58 kg Hernesto Older HAIR BOILER OPERATOR.CROP AND SOIL TECHNICIAN Work Phone: [facility] 01-25-2024 13:22-0400 Diastolic blood pressure 62 mm[Hg] Hernesto Older HAIR BOILER OPERATOR.CROP AND SOIL TECHNICIAN Work Phone: [facility] 01-25-2024 13:22-0400 Heart rate 68 /min Hernesto Older HAIR BOILER OPERATOR.CROP AND SOIL TECHNICIAN Work Phone: [facility] 01-25-2024 13:22-0400 Respiratory rate 16 /min Hernesto Older HAIR BOILER OPERATOR.CROP AND SOIL TECHNICIAN Work Phone: [facility] 01-25-2024 13:22-0400 SaO2% (BldA) [Mass fraction] 97 % Hernesto Older HAIR BOILER OPERATOR.CROP AND SOIL TECHNICIAN Work Phone: [facility] 01-25-2024 13:22-0400 Systolic blood pressure 128 mm[Hg] Hernesto Older HAIR BOILER OPERATOR.CROP AND SOIL TECHNICIAN Work Phone: [facility] 12-07-2023 15:23-0400 Body mass index (BMI) [Ratio] 30.96 kg/m2 Hernesto Older HAIR BOILER OPERATOR.CROP AND SOIL TECHNICIAN Work Phone: [facility] 12-07-2023 15:23-0400 Body weight 75.3 kg Hernesto Older HAIR BOILER OPERATOR.CROP AND SOIL TECHNICIAN Work Phone: [facility] 12-07-2023 15:23-0400 Diastolic blood pressure 70 mm[Hg] Hernesto Older HAIR BOILER OPERATOR.CROP AND SOIL TECHNICIAN Work Phone: [facility] 12-07-2023 15:23-0400 Heart rate 64 /min Hernesto Older HAIR BOILER OPERATOR.CROP AND SOIL TECHNICIAN Work Phone: [facility] 12-07-2023 15:23-0400 Respiratory rate 16 /min Hernesto Older HAIR BOILER OPERATOR.CROP AND SOIL TECHNICIAN Work Phone: [facility] 12-07-2023 15:23-0400 SaO2% (BldA) [Mass fraction] 97 % Hernesto Older HAIR BOILER OPERATOR.CROP AND SOIL TECHNICIAN Work Phone: [facility] 12-07-2023 15:23-0400 Systolic blood pressure 132 mm[Hg] Hernesto Older HAIR BOILER OPERATOR.CROP AND SOIL TECHNICIAN Work Phone: [facility] 11-25-2023 12:21-0400 Body mass index (BMI) [Ratio] 31.7 kg/m2 Siddharth Palm HAIR BOILER OPERATOR.CROP AND SOIL TECHNICIAN Work Phone: [facility] 11-25-2023 12:21-0400 Body temperature 97.7 [degF] Siddharth Palm HAIR BOILER OPERATOR.CROP AND SOIL TECHNICIAN Work Phone: [facility] 11-25-2023 12:21-0400 Body weight 77.11 kg Siddharth Palm HAIR BOILER OPERATOR.CROP AND SOIL TECHNICIAN Work Phone: [facility] 11-25-2023 12:21-0400 Diastolic blood pressure 77 mm[Hg] Siddharth Néstor HAIR BOILER OPERATOR.CROP AND SOIL TECHNICIAN Work Phone: [facility] 11-25-2023 12:21-0400 Heart rate 62 /min Siddharth Néstor HAIR BOILER OPERATOR.CROP AND SOIL TECHNICIAN Work Phone: [facility] 11-25-2023 12:21-0400 Respiratory rate 18 /min Siddharth Néstor HAIR BOILER OPERATOR.CROP AND SOIL TECHNICIAN Work Phone: [facility] 11-25-2023 12:21-0400 SaO2% (BldA) [Mass fraction] 97 % Siddharth Néstor HAIR BOILER OPERATOR.CROP AND SOIL TECHNICIAN Work Phone: [facility] 11-25-2023 12:21-0400 Systolic blood pressure 148 mm[Hg] Siddharth Palm HAIR BOILER OPERATOR.CROP AND SOIL TECHNICIAN Work Phone: [facility] 11-24-2023 11:38-0400 Body height 156 cm Manuela Thomas HAIR BOILER OPERATOR.CROP AND SOIL TECHNICIAN Work Phone: [facility] 11-24-2023 11:38-0400 Body mass index (BMI) [Ratio] 31.7 kg/m2 Manuela Thomas HAIR BOILER OPERATOR.CROP AND SOIL TECHNICIAN Work Phone: [facility] 11-24-2023 11:38-0400 Body weight 77.11 kg Manuela Thomas HAIR BOILER OPERATOR.CROP AND SOIL TECHNICIAN Work Phone: [facility] 11-24-2023 11:38-0400 Diastolic blood pressure 70 mm[Hg] Manuela Thomas HAIR BOILER OPERATOR.CROP AND SOIL TECHNICIAN Work Phone: [facility] 11-24-2023 11:38-0400 Heart rate 68 /min Manuela Thomas APRN.CROP AND SOIL TECHNICIAN Work Phone: [facility] 11-24-2023 11:38-0400 Respiratory rate 16 /min Manuela Thomas APRN.CROP AND SOIL TECHNICIAN Work Phone: [facility] 11-24-2023 11:38-0400 Systolic blood pressure 128 mm[Hg] Manuela Thomas HAIR BOILER OPERATOR.CROP AND SOIL TECHNICIAN Work Phone: [facility] 11-06-2023 11:48-0400 Body height 154.9 cm Eva Nielsen MD Work Phone: [facility] 11-06-2023 11:48-0400 Body mass index (BMI) [Ratio] 32.12 kg/m2 Eva Nielsen MD Work Phone: [facility] 11-06-2023 11:48-0400 Body temperature 97.5 [degF] Eva Nielsen MD Work Phone: [facility] 11-06-2023 11:48-0400 Body weight 77.11 kg Eva Nielsen MD Work Phone: [facility] 11-06-2023 11:48-0400 Heart rate 66 /min Eva Nielsen MD Work Phone: [facility] 11-06-2023 11:48-0400 SaO2% (BldA) [Mass fraction] 95 % Eva Nielsen MD Work Phone: [facility] 09-15-2023 16:47-0400 Body height 154.9 cm Eva Nielsen MD Work Phone: [facility] Comment on above: self-reported 09-15-2023 16:47-0400 Body mass index (BMI) [Ratio] 33.44 kg/m2 Eva Nielsen MD Work Phone: [facility] 09-15-2023 16:47-0400 Body weight 80.29 kg Eva Nielsen MD Work Phone: [facility] Comment on above: self-reported 09-15-2023 16:47-0400 Diastolic blood pressure 64 mm[Hg] Eva Nielsen MD Work Phone: [facility] 09-15-2023 16:47-0400 Heart rate 61 /min Eva Nielsen MD Work Phone: [facility] 09-15-2023 16:47-0400 Respiratory rate 19 /min Eva Nielsen MD Work Phone: [facility] 09-15-2023 16:47-0400 SaO2% (BldA) [Mass fraction] 99 % Eva Nielsen MD Work Phone: [facility] 09-15-2023 16:47-0400 Systolic blood pressure 128 mm[Hg] Eva Nielsen MD Work Phone: [facility] 09-07-2023 13:47-0400 Body height 154.[address] [facility] 09-07-2023 13:47-0400 Body mass index (BMI) [Ratio] 34.11 kg/m2 Radha Story RD [facility] 09-07-2023 13:47-0400 Body weight 81.87 kg Radha Jez SAVAGE [facility] 08-25-2023 10:06-0400 Body height 160 cm Ivan Quan MD Work Phone: [facility] 08-25-2023 10:06-0400 Diastolic blood pressure 78 mm[Hg] Ivan Quan MD Work Phone: [facility] 08-25-2023 10:06-0400 Heart rate 56 /min Ivan Quan MD Work Phone: [facility] 08-25-2023 10:06-0400 Respiratory rate 18 /min Ivan Quan MD Work Phone: [facility] 08-25-2023 10:06-0400 SaO2% (BldA) [Mass fraction] 99 % Ivan Quan MD Work Phone: [facility] 08-25-2023 10:06-0400 Systolic blood pressure 120 mm[Hg] Ivan Quan MD Work Phone: [facility] 08-19-2023 12:25-0400 Body mass index (BMI) [Ratio] 34.77 kg/m2 Hernesto Older HAIR BOILER OPERATOR.CROP AND SOIL TECHNICIAN Work Phone: [facility] 08-19-2023 12:25-0400 Body weight 83.46 kg Hernesto Older HAIR BOILER OPERATOR.CROP AND SOIL TECHNICIAN Work Phone: [facility] 08-19-2023 12:25-0400 Diastolic blood pressure 80 mm[Hg] Hernesto Older HAIR BOILER OPERATOR.CROP AND SOIL TECHNICIAN Work Phone: [facility] 08-19-2023 12:25-0400 Heart rate 70 /min Hernesto Older HAIR BOILER OPERATOR.CROP AND SOIL TECHNICIAN Work Phone: [facility] 08-19-2023 12:25-0400 Respiratory rate 16 /min Hernesto Older HAIR BOILER OPERATOR.CROP AND SOIL TECHNICIAN Work Phone: [facility] 08-19-2023 12:25-0400 SaO2% (BldA) [Mass fraction] 95 % Hernesto Older HAIR BOILER OPERATOR.CROP AND SOIL TECHNICIAN Work Phone: [facility] 08-19-2023 12:25-0400 Systolic blood pressure 132 mm[Hg] Hernesto Older HAIR BOILER OPERATOR.CROP AND SOIL TECHNICIAN Work Phone: [facility] 08-10-2023 10:59-0400 Body height 154.9 cm Radha Story [facility] 08-10-2023 10:59-0400 Body mass index (BMI) [Ratio] 34.96 kg/m2 Radha Wardsoren SAVAGE [facility] 08-10-2023 10:59-0400 Body weight 83.92 kg Radha Sacramento [facility] 07-31-2023 10:01-0400 Body temperature 96.8 [degF] Alberto Argueta HAIR BOILER OPERATOR.CROP AND SOIL TECHNICIAN Work Phone: [facility] 07-31-2023 10:01-0400 Diastolic blood pressure 71 mm[Hg] Alberto Argueta HAIR BOILER OPERATOR.CROP AND SOIL TECHNICIAN Work Phone: [facility] 07-31-2023 10:01-0400 Heart rate 68 /min Alberto Argueta HAIR BOILER OPERATOR.CROP AND SOIL TECHNICIAN Work Phone: [facility] 07-31-2023 10:01-0400 Systolic blood pressure 117 mm[Hg] Alberto Argueta HAIR BOILER OPERATOR.CROP AND SOIL TECHNICIAN Work Phone: [facility] 06-26-2023 11:29-0500 Body temperature 97.7 [degF] Manuela Heart HAIR BOILER OPERATOR.CROP AND SOIL TECHNICIAN Work Phone: [facility] 06-26-2023 11:29-0500 Diastolic blood pressure 74 mm[Hg] Manuela Heart HAIR BOILER OPERATOR.CROP AND SOIL TECHNICIAN Work Phone: [facility] 06-26-2023 11:29-0500 Heart rate 65 /min Manuela Heart HAIR BOILER OPERATOR.CROP AND SOIL TECHNICIAN Work Phone: [facility] 06-26-2023 11:29-0500 Respiratory rate 20 /min Manuela Heart HAIR BOILER OPERATOR.CROP AND SOIL TECHNICIAN Work Phone: [facility] 06-26-2023 11:29-0500 SaO2% (BldA) [Mass fraction] 98 % Manuela Heart HAIR BOILER OPERATOR.CROP AND SOIL TECHNICIAN Work Phone: [facility] 06-26-2023 11:29-0500 Systolic blood pressure 127 mm[Hg] Manuela Heart APRN.CROP AND SOIL TECHNICIAN Work Phone: [facility] 06-12-2023 08:13-0500 Body height 154.9 cm Eva Nielsen MD Work Phone: [facility] 06-12-2023 08:13-0500 Body temperature 98.6 [degF] Eva Nielsen MD Work Phone: [facility] 06-12-2023 08:13-0500 Body weight 81.65 kg Eva Nielsen MD Work Phone: [facility] 06-12-2023 08:13-0500 Diastolic blood pressure 74 mm[Hg] Eva Nielsen MD Work Phone: [facility] 06-12-2023 08:13-0500 Heart rate 67 /min Eva Nielsen MD Work Phone: [facility] 06-12-2023 08:13-0500 SaO2% (BldA) [Mass fraction] 98 % Eva Nielsen MD Work Phone: [facility] 06-12-2023 08:13-0500 Systolic blood pressure 128 mm[Hg] Eva Nielsen MD Work Phone: [facility] 05-23-2023 14:54-0500 Body height 154.[address] Alcira Anderson Work Phone: [facility] 05-23-2023 14:54-0500 Body mass index (BMI) [Ratio] 32.1 kg/m2 Dr. Alcira Anderson Work Phone: [facility] 05-23-2023 14:54-0500 Body temperature 96.7 [degF] Dr. Alcira Anderson Work Phone: 9(463)904-425791 [place] [address] 05-23-2023 14:54-0500 Body weight 77.[address] Alcira Anderson Work Phone: 7(409)379-493191 [place] [address] 05-23-2023 14:54-0500 Diastolic blood pressure 82 mm[Hg] Dr. Alcira Anderson Work Phone: 6(978)855-693291 [place] [address] 05-23-2023 14:54-0500 Heart rate 75 /min Dr. Alcira Anderson Work Phone: 9(992)009-365291 [place] [address] 05-23-2023 14:54-0500 Respiratory rate 16 /min Dr. Alcira Anderson Work Phone: 9(969)663-262791 [place] [address] 05-23-2023 14:54-0500 SaO2% (BldA) [Mass fraction] 99 % Dr. Alcira Anderson Work Phone: 5(448)790-364291 [place] [address] 05-23-2023 14:54-0500 Systolic blood pressure 174 mm[Hg] Dr. Alcira Anderson Work Phone: 2(006)215-118091 [place] [address] 04-08-2023 09:58-0500 Body temperature 97.5 [degF] Dr. Alcira Anderson Work Phone: 8(461)898-797691 [place] [address] 04-08-2023 09:58-0500 Diastolic blood pressure 53 mm[Hg] Dr. Alcira Anderson Work Phone: 5(857)280-652391 [place] [address] 04-08-2023 09:58-0500 Heart rate 67 /min Dr. Alcira Anderson Work Phone: 6(145)733-965391 [place] [address] 04-08-2023 09:58-0500 Respiratory rate 16 /min Dr. Alcira Anderson Work Phone: 0(288)304-051191 [place] [address] 04-08-2023 09:58-0500 SaO2% (BldA) [Mass fraction] 98 % Dr. Alcira Anderson Work Phone: 2(221)667-240291 [place] [address] 04-08-2023 09:58-0500 Systolic blood pressure 118 mm[Hg] Dr. Alcira Anderson Work Phone: [facility] 04-08-2023 08:25-0500 Body height 154.[address] Alcira Anderson Work Phone: [facility] 04-08-2023 08:25-0500 Body mass index (BMI) [Ratio] 35.4 kg/m2 Dr. Alcira Anderson Work Phone: [facility] 04-08-2023 08:25-0500 Body weight [address] Alcira Anderson Work Phone: [facility] 02-23-2023 13:57-0500 Body height 154.9 cm Roland Grajeda MD Work Phone: [facility] 02-23-2023 13:57-0500 Body temperature 97.9 [degF] Roland Grajeda MD Work Phone: [facility] 02-23-2023 13:57-0500 Body weight 84.82 kg Roland Grajeda MD Work Phone: [facility] 02-23-2023 13:57-0500 Diastolic blood pressure 76 mm[Hg] Roland Grajeda MD Work Phone: [facility] 02-23-2023 13:57-0500 Heart rate 67 /min Roland Garjeda MD Work Phone: [facility] 02-23-2023 13:57-0500 Systolic blood pressure 134 mm[Hg] Roland Grajeda MD Work Phone: [facility] 02-02-2023 09:47-0400 Body height 160 cm Clinton Farrar Jr., DO Work Phone: [facility] 02-02-2023 09:47-0400 Body mass index (BMI) [Ratio] 32.41 kg/m2 Clinton Farrar Jr., DO Work Phone: [facility] 02-02-2023 09:47-0400 Body temperature 97.9 [degF] Clinton Farrar Jr., DO Work Phone: [facility] 02-02-2023 09:47-0400 Body weight 83 kg Clinton Farrar Jr., DO Work Phone: [facility] 02-02-2023 09:47-0400 Diastolic blood pressure 62 mm[Hg] Clinton Farrar Jr., DO Work Phone: [facility] 02-02-2023 09:47-0400 Heart rate 62 /min Clinton Farrar Jr., DO Work Phone: [facility] 02-02-2023 09:47-0400 SaO2% (BldA) [Mass fraction] 97 % Clinton Farrar Jr., DO Work Phone: [facility] 02-02-2023 09:47-0400 Systolic blood pressure 100 mm[Hg] Clinton Farrar Jr., DO Work Phone: [facility] [facility] 01-26-2023 14:01-0400 Body height 154.[address] Alcira Anderson Work Phone: 5(128)991-943527 [place] [address] 01-26-2023 14:01-0400 Body mass index (BMI) [Ratio] 35.7 kg/m2 Dr. Alcira Anderson Work Phone: [facility] 01-26-2023 14:01-0400 Body temperature 98 [degF] Dr. Alcira Anderson Work Phone: [facility] 01-26-2023 14:01-0400 Body weight 85.[address] Alcira Anderson Work Phone: [facility] 01-26-2023 14:01-0400 Diastolic blood pressure 84 mm[Hg] Dr. Alcira Anderson Work Phone: [facility] 01-26-2023 14:01-0400 Heart rate 78 /min Dr. Alcira Anderson Work Phone: [facility] 01-26-2023 14:01-0400 Respiratory rate 16 /min Dr. Alcira Anderson Work Phone: [facility] 01-26-2023 14:01-0400 SaO2% (BldA) [Mass fraction] 97 % Dr. Alcira Anderson Work Phone: [facility] 01-26-2023 14:01-0400 Systolic blood pressure 152 mm[Hg] Dr. Alcira Anderson Work Phone: [facility] 01-08-2023 13:30-0400 Body height 160 cm Ivan Quan MD Work Phone: [facility] 01-08-2023 13:30-0400 Body mass index (BMI) [Ratio] 32.42 kg/m2 Ivan Quan MD Work Phone: [facility] 01-08-2023 13:30-0400 Body weight 83.01 kg Ivan Quan MD Work Phone: [facility] 01-08-2023 13:30-0400 Diastolic blood pressure 78 mm[Hg] Ivan Quan MD Work Phone: [facility] 01-08-2023 13:30-0400 Heart rate 67 /min Ivan Quan MD Work Phone: [facility] 01-08-2023 13:30-0400 Respiratory rate 18 /min Ivan Quan MD Work Phone: [facility] 01-08-2023 13:30-0400 SaO2% (BldA) [Mass fraction] 98 % Ivan Quan MD Work Phone: [facility] 01-08-2023 13:30-0400 Systolic blood pressure 122 mm[Hg] Ivan Quan MD Work Phone: [facility] 01-05-2023 10:44-0400 Body weight 85.73 kg Hernesto Harvey APRN.CNP Work Phone: [facility] 01-05-2023 10:44-0400 Diastolic blood pressure 68 mm[Hg] Hernesto Older HAIR BOILER OPERATOR.CROP AND SOIL TECHNICIAN Work Phone: [facility] 01-05-2023 10:44-0400 Heart rate 64 /min Hernesto Older HAIR BOILER OPERATOR.CROP AND SOIL TECHNICIAN Work Phone: [facility] 01-05-2023 10:44-0400 Respiratory rate 16 /min Hernesto Older HAIR BOILER OPERATOR.CROP AND SOIL TECHNICIAN Work Phone: [facility] 01-05-2023 10:44-0400 SaO2% (BldA) [Mass fraction] 98 % Hernesto Older HAIR BOILER OPERATOR.CROP AND SOIL TECHNICIAN Work Phone: [facility] 01-05-2023 10:44-0400 Systolic blood pressure 128 mm[Hg] Hernesto Older HAIR BOILER OPERATOR.CROP AND SOIL TECHNICIAN Work Phone: [facility] 11-24-2022 07:17-0400 Body temperature 97.81 [degF] Hernesto Older HAIR BOILER OPERATOR.CROP AND SOIL TECHNICIAN Work Phone: [facility] 11-24-2022 07:17-0400 Body weight 86.64 kg Hernesto Older HAIR BOILER OPERATOR.CROP AND SOIL TECHNICIAN Work Phone: [facility] 11-24-2022 07:17-0400 Diastolic blood pressure 78 mm[Hg] Hernesto Older HAIR BOILER OPERATOR.CROP AND SOIL TECHNICIAN Work Phone: [facility] 11-24-2022 07:17-0400 Heart rate 64 /min Hernesto Older HAIR BOILER OPERATOR.CROP AND SOIL TECHNICIAN Work Phone: [facility] 11-24-2022 07:17-0400 Respiratory rate 16 /min Hernesto Older HAIR BOILER OPERATOR.CROP AND SOIL TECHNICIAN Work Phone: [facility] 11-24-2022 07:17-0400 SaO2% (BldA) [Mass fraction] 98 % Hernesto Older HAIR BOILER OPERATOR.CROP AND SOIL TECHNICIAN Work Phone: [facility] 11-24-2022 07:17-0400 Systolic blood pressure 132 mm[Hg] Hernesto Older HAIR BOILER OPERATOR.CROP AND SOIL TECHNICIAN Work Phone: [facility] 11-12-2022 14:04-0400 Body height 160 cm Ivan Quan MD Work Phone: [facility] 11-12-2022 14:04-0400 Body mass index (BMI) [Ratio] 35.96 kg/m2 Ivan Quan MD Work Phone: [facility] 11-12-2022 14:04-0400 Body weight 92.08 kg Ivan Quan MD Work Phone: [facility] 11-12-2022 14:04-0400 Diastolic blood pressure 82 mm[Hg] Ivan Quan MD Work Phone: [facility] 11-12-2022 14:04-0400 Heart rate 82 /min Ivan Quan MD Work Phone: [facility] 11-12-2022 14:04-0400 Respiratory rate 15 /min Ivan Quan MD Work Phone: [facility] 11-12-2022 14:04-0400 SaO2% (BldA) [Mass fraction] 97 % Ivan Qaun MD Work Phone: [facility] 11-12-2022 14:04-0400 Systolic blood pressure 138 mm[Hg] Ivan Quan MD Work Phone: [facility] 11-04-2022 09:13-0400 Body mass index (BMI) [Ratio] 35.5 kg/m2 Dr. Alcira Anderson Work Phone: [facility] 11-04-2022 09:13-0400 Body temperature 98.3 [degF] Dr. Alcira Anderson Work Phone: [facility] 11-04-2022 09:13-0400 Body weight 85.[address] Alcira Anderson Work Phone: [facility] 11-04-2022 09:13-0400 Diastolic blood pressure 78 mm[Hg] Dr. Alcira Anderson Work Phone: [facility] 11-04-2022 09:13-0400 Heart rate 78 /min Dr. Alcira Anderson Work Phone: [facility] 11-04-2022 09:13-0400 Respiratory rate 18 /min Dr. Alcira Anderson Work Phone: [facility] 11-04-2022 09:13-0400 SaO2% (BldA) [Mass fraction] 97 % Dr. Alcira Anderson Work Phone: [facility] 11-04-2022 09:13-0400 Systolic blood pressure 146 mm[Hg] Dr. Alcira Anderson Work Phone: [facility] 09-29-2022 11:42-0400 Body height 160 cm Clinton Farrar Jr., DO Work Phone: 3(758)856-144628 [place] [address] 09-29-2022 11:42-0400 Body mass index (BMI) [Ratio] 35.97 kg/m2 Clinton Farrar Jr., DO Work Phone: 1(395)061-266728 [place] [address] 09-29-2022 11:42-0400 Body temperature 98.71 [degF] Clinton Farrar Jr., DO Work Phone: 9(298)302-407928 [place] [address] 09-29-2022 11:42-0400 Body weight 92.1 kg Clinton Farrar Jr., DO Work Phone: 0(948)615-136628 [place] [address] 09-29-2022 11:42-0400 Diastolic blood pressure 98 mm[Hg] Clinton Farrar Jr., DO Work Phone: 3(030)671-284328 [place] [address] 09-29-2022 11:42-0400 Systolic blood pressure 138 mm[Hg] Clinton Farrar Jr., DO Work Phone: 8(315)418-681828 [place] [address] 09-23-2022 06:14-0400 Body height 154.[address] Alcira Anderson Work Phone: [facility] 09-23-2022 06:14-0400 Body mass index (BMI) [Ratio] 34.9 kg/m2 Dr. Alcira Anderson Work Phone: 4(935)445-052427 [place] [address] 09-23-2022 06:14-0400 Body temperature 97.1 [degF] Dr. Alcira Anderson Work Phone: 0(537)725-172691 [place] [address] 09-23-2022 06:14-0400 Body weight 83.[address] Alcira Anderson Work Phone: 5(562)014-627291 [place] [address] 09-23-2022 06:14-0400 Diastolic blood pressure 71 mm[Hg] Dr. Alcira Anderson Work Phone: 7(428)668-351891 [place] [address] 09-23-2022 06:14-0400 Heart rate 67 /min Dr. Alcira Anderson Work Phone: 6(065)825-816691 [place] [address] 09-23-2022 06:14-0400 Respiratory rate 18 /min Dr. Alcira Anderson Work Phone: 6(940)233-107891 [place] [address] 09-23-2022 06:14-0400 SaO2% (BldA) [Mass fraction] 98 % Dr. Alcira Anderson Work Phone: 9(246)686-886891 [place] [address] 09-23-2022 06:14-0400 Systolic blood pressure 161 mm[Hg] Dr. Alcira Anderson Work Phone: 2(679)759-767691 [place] [address] 09-18-2022 10:23-0400 Body height 158 cm Alcira Anderson MD Work Phone: [facility] 09-18-2022 10:23-0400 Body weight 84.82 kg Alcira Anderson MD Work Phone: [facility] 09-18-2022 10:23-0400 Diastolic blood pressure 72 mm[Hg] Alcira Anderson MD Work Phone: [facility] 09-18-2022 10:23-0400 Heart rate 64 /min Alcira Anderson MD Work Phone: [facility] 09-18-2022 10:23-0400 Respiratory rate 18 /min Alcira Anderson MD Work Phone: [facility] 09-18-2022 10:23-0400 Systolic blood pressure 132 mm[Hg] Alcira Anderson MD Work Phone: 6(061)920-623201 [place] [address] 09-04-2022 11:15-0400 Body weight 85.[address] Alcira Anderson Work Phone: 8(323)291-745591 [place] [address] 09-04-2022 11:15-0400 Heart rate 98 /min Dr. Alcira Anderson Work Phone: 1(985)037-594091 [place] [address] 09-04-2022 11:15-0400 SaO2% (BldA) [Mass fraction] 95 % Dr. Alcira Anderson Work Phone: 1(966)552-641491 [place] [address] 08-26-2022 06:16-0400 Body mass index (BMI) [Ratio] 35.5 kg/m2 Dr. Alcira Anderson Work Phone: 1(568)880-632891 [place] [address] 08-26-2022 06:16-0400 Body temperature 97 [degF] Dr. Alcira Anderson Work Phone: 9(428)799-761391 [place] [address] 08-26-2022 06:16-0400 Body weight 85.[address] Alcira Anderson Work Phone: 5(805)029-949991 [place] [address] 08-26-2022 06:16-0400 Diastolic blood pressure 65 mm[Hg] Dr. Alcira Anderson Work Phone: 7(036)985-335391 [place] [address] 08-26-2022 06:16-0400 Heart rate 74 /min Dr. Alcira Anderson Work Phone: 9(737)945-163391 [place] [address] 08-26-2022 06:16-0400 Respiratory rate 18 /min Dr. Alcira Anderson Work Phone: 0(279)242-210691 [place] [address] 08-26-2022 06:16-0400 SaO2% (BldA) [Mass fraction] 98 % Dr. Alcira Anderson Work Phone: 1(088)144-802591 [place] [address] 08-26-2022 06:16-0400 Systolic blood pressure 143 mm[Hg] Dr. Alcira Anderson Work Phone: 4(417)772-262491 [place] [address] 08-20-2022 11:16-0400 Body mass index (BMI) [Ratio] 35.7 kg/m2 Dr. Alcira Anderson Work Phone: [facility] 08-20-2022 11:16-0400 Body weight 85.[address] Alcira Anderson Work Phone: [facility] 08-20-2022 11:16-0400 Diastolic blood pressure 79 mm[Hg] Dr. Alcira Anderson Work Phone: [facility] 08-20-2022 11:16-0400 Heart rate 81 /min Dr. Alcira Anderson Work Phone: [facility] 08-20-2022 11:16-0400 Respiratory rate 18 /min Dr. Alcira Anderson Work Phone: [facility] 08-20-2022 11:16-0400 Systolic blood pressure 159 mm[Hg] Dr. Alcira Anderson Work Phone: [facility] 08-04-2022 12:41-0400 Body temperature 98.1 [degF] Hernesto Older HAIR BOILER OPERATOR.CROP AND SOIL TECHNICIAN Work Phone: [facility] 08-04-2022 12:41-0400 Body weight 86.64 kg Hernesto Older HAIR BOILER OPERATOR.CROP AND SOIL TECHNICIAN Work Phone: [facility] 08-04-2022 12:41-0400 Diastolic blood pressure 86 mm[Hg] Hernesto Older HAIR BOILER OPERATOR.CROP AND SOIL TECHNICIAN Work Phone: [facility] 08-04-2022 12:41-0400 Heart rate 94 /min Hernesto Older HAIR BOILER OPERATOR.CROP AND SOIL TECHNICIAN Work Phone: [facility] 08-04-2022 12:41-0400 Respiratory rate 16 /min Hernesto Older HAIR BOILER OPERATOR.CROP AND SOIL TECHNICIAN Work Phone: [facility] 08-04-2022 12:41-0400 SaO2% (BldA) [Mass fraction] 94 % Hernesto Older HAIR BOILER OPERATOR.CROP AND SOIL TECHNICIAN Work Phone: [facility] 08-04-2022 12:41-0400 Systolic blood pressure 136 mm[Hg] Hernesto Older HAIR BOILER OPERATOR.CROP AND SOIL TECHNICIAN Work Phone: [facility] 07-21-2022 11:43-0400 Diastolic blood pressure 76 mm[Hg] Hernesto Older HAIR BOILER OPERATOR.CROP AND SOIL TECHNICIAN Work Phone: [facility] 07-21-2022 11:43-0400 Systolic blood pressure 138 mm[Hg] Hernesto Older HAIR BOILER OPERATOR.CROP AND SOIL TECHNICIAN Work Phone: [facility] 07-17-2022 07:56-0400 Body temperature 98.2 [degF] Hernesto Older HAIR BOILER OPERATOR.CROP AND SOIL TECHNICIAN Work Phone: [facility] 07-17-2022 07:56-0400 Body weight 90.72 kg Hernesto Older HAIR BOILER OPERATOR.CROP AND SOIL TECHNICIAN Work Phone: [facility] 07-17-2022 07:56-0400 Diastolic blood pressure 72 mm[Hg] Hernesto Older HAIR BOILER OPERATOR.CROP AND SOIL TECHNICIAN Work Phone: [facility] 07-17-2022 07:56-0400 Heart rate 78 /min Hernesto Older HAIR BOILER OPERATOR.CROP AND SOIL TECHNICIAN Work Phone: [facility] 07-17-2022 07:56-0400 Respiratory rate 16 /min Hernesto Older HAIR BOILER OPERATOR.CROP AND SOIL TECHNICIAN Work Phone: [facility] 07-17-2022 07:56-0400 SaO2% (BldA) [Mass fraction] 92 % Hernesto Older HAIR BOILER OPERATOR.CROP AND SOIL TECHNICIAN Work Phone: [facility] 07-17-2022 07:56-0400 Systolic blood pressure 152 mm[Hg] Hernesto Older HAIR BOILER OPERATOR.CROP AND SOIL TECHNICIAN Work Phone: [facility] 06-09-2022 11:15-0500 Body temperature 98.1 [degF] Hernesto Older HAIR BOILER OPERATOR.CROP AND SOIL TECHNICIAN Work Phone: [facility] 06-09-2022 11:15-0500 Body weight 90.27 kg Hernesto Older HAIR BOILER OPERATOR.CROP AND SOIL TECHNICIAN Work Phone: [facility] 06-09-2022 11:15-0500 Diastolic blood pressure 78 mm[Hg] Hernesto Older HAIR BOILER OPERATOR.CROP AND SOIL TECHNICIAN Work Phone: [facility] 06-09-2022 11:15-0500 Heart rate 74 /min Hernesto Older HAIR BOILER OPERATOR.CROP AND SOIL TECHNICIAN Work Phone: [facility] 06-09-2022 11:15-0500 Respiratory rate 16 /min Hernesto Older HAIR BOILER OPERATOR.CROP AND SOIL TECHNICIAN Work Phone: [facility] 06-09-2022 11:15-0500 SaO2% (BldA) [Mass fraction] 98 % Hernesto Older HAIR BOILER OPERATOR.CROP AND SOIL TECHNICIAN Work Phone: [facility] 06-09-2022 11:15-0500 Systolic blood pressure 132 mm[Hg] Hernesto Older HAIR BOILER OPERATOR.[facility] Work Phone: [facility] 11-05-2021 14:23-0400 Body height 154.[address] Alcira Anderson Work Phone: [facility] Work Phone: 11-05-2021 14:23-0400 Body mass index (BMI) [Ratio] 35.3 kg/m2 Dr. Alcira Anderson Work Phone: [facility] Work Phone: 11-05-2021 14:23-0400 Body weight 84.[address] Alcira Anderson Work Phone: [facility] Work Phone: 11-05-2021 14:23-0400 Diastolic blood pressure 72 mm[Hg] Dr. Alcira Anderson Work Phone: [facility] Work Phone: 11-05-2021 14:23-0400 Heart rate 71 /min Dr. Alcira Anderson Work Phone: [facility] Work Phone: 11-05-2021 14:23-0400 SaO2% (BldA) [Mass fraction] 92 % Dr. Alcira Anderson Work Phone: [facility] Work Phone: 11-05-2021 14:23-0400 Systolic blood pressure 135 mm[Hg] Dr. Alcira Anderson Work Phone: [facility] Work Phone: 11-05-2021 09:12-0400 Body height 154.9 cm Manuela Thomas APRN.CROP AND SOIL TECHNICIAN Work Phone: [facility] 11-05-2021 09:12-0400 Body weight 91.63 kg Manuela Thomas HAIR BOILER OPERATOR.CROP AND SOIL TECHNICIAN Work Phone: [facility] 11-05-2021 09:12-0400 Diastolic blood pressure 70 mm[Hg] Manuela Thomas HAIR BOILER OPERATOR.CROP AND SOIL TECHNICIAN Work Phone: [facility] 11-05-2021 09:12-0400 Heart rate 72 /min Manuela Thomas APRN.CROP AND SOIL TECHNICIAN Work Phone: [facility] 11-05-2021 09:12-0400 Respiratory rate 18 /min Manuela Thomas APRN.CROP AND SOIL TECHNICIAN Work Phone: [facility] 11-05-2021 09:12-0400 Systolic blood pressure 120 mm[Hg] Manuela Thomas HAIR BOILER OPERATOR.CROP AND SOIL TECHNICIAN Work Phone: [facility] 10-31-2021 10:01-0400 Body mass index (BMI) [Ratio] 38.2 kg/m2 Dr. Alcira Anderson Work Phone: [facility] Work Phone: 10-31-2021 10:01-0400 Body temperature 94.9 [degF] Dr. Alcira Anderson Work Phone: [facility] Work Phone: 10-31-2021 10:01-0400 Body weight 91.[address] Alcira Anderson Work Phone: [facility] Work Phone: 10-31-2021 10:01-0400 Diastolic blood pressure 70 mm[Hg] Dr. Alcira Anderson Work Phone: [facility] Work Phone: 10-31-2021 10:01-0400 Heart rate 77 /min Dr. Alcira Anderson Work Phone: [facility] Work Phone: 10-31-2021 10:01-0400 Respiratory rate 18 /min Dr. Alcira Anderson Work Phone: [facility] Work Phone: 10-31-2021 10:01-0400 SaO2% (BldA) [Mass fraction] 100 % Dr. Alcira Anderson Work Phone: [facility] Work Phone: 10-31-2021 10:01-0400 Systolic blood pressure 122 mm[Hg] Dr. Alcira Anderson Work Phone: [facility] Work Phone: 10-24-2021 08:25-0400 Diastolic blood pressure 76 mm[Hg] Hernesto Older HAIR BOILER OPERATOR.CROP AND SOIL TECHNICIAN Work Phone: [facility] 10-24-2021 08:25-0400 Heart rate 68 /min Hernesto Older HAIR BOILER OPERATOR.CROP AND SOIL TECHNICIAN Work Phone: [facility] 10-24-2021 08:25-0400 Systolic blood pressure 134 mm[Hg] Hernesto Older HAIR BOILER OPERATOR.CROP AND SOIL TECHNICIAN Work Phone: [facility] 09-26-2021 13:44-0400 Diastolic blood pressure 86 mm[Hg] Hernesto Older HAIR BOILER OPERATOR.CROP AND SOIL TECHNICIAN Work Phone: [facility] 09-26-2021 13:44-0400 Heart rate 72 /min Hernesto Older HAIR BOILER OPERATOR.CROP AND SOIL TECHNICIAN Work Phone: [facility] 09-26-2021 13:44-0400 Respiratory rate 16 /min Hernesto Older HAIR BOILER OPERATOR.CROP AND SOIL TECHNICIAN Work Phone: [facility] 09-26-2021 13:44-0400 Systolic blood pressure 134 mm[Hg] Hernesto Older HAIR BOILER OPERATOR.CROP AND SOIL TECHNICIAN Work Phone: [facility] 03-04-2021 09:39-0500 Body height 160 cm Clinton Farrar Jr., DO Work Phone: [facility] 03-04-2021 09:39-0500 Body mass index (BMI) [Ratio] 35.96 kg/m2 Clinton Farrar Jr., DO Work Phone: [facility] 03-04-2021 09:39-0500 Body weight 92.08 kg Clinton Farrar Jr., DO Work Phone: [facility] 03-04-2021 09:39-0500 Diastolic blood pressure 84 mm[Hg] Clinton Farrar Jr., DO Work Phone: [facility] 03-04-2021 09:39-0500 Heart rate 77 /min Clinton Farrar Jr., DO Work Phone: [facility] 03-04-2021 09:39-0500 SaO2% (BldA) [Mass fraction] 97 % Clinton Farrar Jr., DO Work Phone: [facility] 03-04-2021 09:39-0500 Systolic blood pressure 132 mm[Hg] Clinton Farrar Jr., DO Work Phone: [facility] 05-16-2019 10:39-0500 Body Temperature 97 [degF] [facility] 05-16-2019 10:39-0500 BP Diastolic 76 mm[Hg] [facility] 05-16-2019 10:39-0500 BP Systolic 126 mm[Hg] [facility] 05-16-2019 10:39-0500 Pulse (Heart Rate) 64 /min [facility] 05-16-2019 10:39-0500 Pulse Oximetry 95 % [facility] Encounters Encounter Date Encounter Type Care Provider Facility Start: 02-28-2025 End: 02-28-2025 ambulatory [facility] Facility:[facility] Start: 02-21-2025 End: 02-21-2025 ambulatory [facility] Facility:[facility] Start: 02-20-2025 End: 02-20-2025 [facility]ulatory [facility] Start: 02-15-2025 End: 02-15-2025 ambulatory [facility] Facility:[facility] Start: 01-17-2025 End: 01-17-[address] Alcira Anderson MD Work Phone: -Cat Scan [facility] Start: 01-17-2025 End: 01-17-2025 Patient encounter procedure Karl Dyer DO -Cat Scan [facility] Work Phone: Start: 01-17-2025 End: 01-17-2025 ambulatory [facility] Start: 01-10-2025 End: 01-10-[address] Leon Seaman MD -[facility] Work Phone: Start: 01-10-2025 End: 01-10-[address] Alcira Anderson MD Work Phone: -[facility] Start: 01-02-2025 End: 01-02-2025 Telephone encounter Eva Nielsen MD Work Phone: Endocrinology Comment on above: [employer] - [employer] Start: 12-28-2024 End: 12-28-2024 [facility] Facility:[facility] Start: 12-15-2024 End: 12-15-2024 Orders Only Manuela Thomas APRN.CROP AND SOIL TECHNICIAN Work Phone: [facility] Comment on above: Carotid stenosis, as ymptomatic, bilateral (Primary Dx) Start: 12-12-2024 End: 12-12-2024 [facility] Facility:[facility] Start: 11-30-2024 End: 11-30-2024 [facility] Start: 11-30-2024 End: 11-30-2024 [facility] Population Health Na vigation Outreach ([place]/[employer]/[facility] ) Start: 11-29-2024 End: 11-29-2024 Office outpatient visit 25 minutes Alcira Anderson MD Work Phone: Internal Medicine [place] Comment on above: Hypertension (Primar y Dx); Mixed hyperlipidemia; Type 1 diabetes mellitus with diabetic neuropathy (HCC); Insomnia, unspecified type; Thrush Start: 11-29-2024 End: 11-29-2024 [facility] Facility:[facility] Start: 11-25-2024 End: 11-25-2024 [facility] Facility:[facility] Start: 11-14-2024 End: 11-17-2024 Telephone encounter Eva Nielsen MD Work Phone: Endocrinology Comment on above: Refill Request Start: 11-10-2024 [facility] Facility:[facility] Start: 11-10-2024 End: 11-10-2024 Subsequent hospital visit by physician Maddison [facility] [place] Crenshaw Work Phone: Radiology Comment on above: Seropositive rheumat oid arthritis (HCC) [M05.9] Start: 11-06-2024 End: 11-06-2024 Office outpatient visit 25 minutes Jonas Red APRN.CNP Work Phone: [facility] [place] Comment on above: Thrush (Primary Dx) Start: 11-06-2024 End: 11-06-2024 ambulatory [facility] Facility:[facility] Start: 11-03-2024 End: 11-03-2024 Telephone encounter Manuela Thomas APRN.CNP Work Phone: [facility] Comment on above: Appointment (appt) Start: 11-02-2024 End: 11-02-2024 Orders Only Manuela Thomas APRN.CNP Work Phone: [facility] Comment on above: Carotid stenosis, as ymptomatic, bilateral (Primary Dx) Start: 10-26-2024 End: 10-26-2024 Telephone encounter Alberto Argueta APRN.CROP AND SOIL TECHNICIAN Work Phone: Rheumatology Comment on above: Appointment Start: 10-26-2024 End: 10-26-2024 ambulatory Alberto Argueta APRN.CROP AND SOIL TECHNICIAN Work Phone: Rheumatology Comment on above: Seropositive rheumat oid arthritis (HCC) (Primary Dx); Long-term use of Plaquenil; Osteopenia of right hip; Gastroparesis; Interstitial lung disease (HCC); Pain in both hands Start: 10-26-2024 End: 10-26-2024 Telemedicine consultation with patient Alberto Argueta EFREN Work Phone: Rheumatology Start: 09-23-2024 End: 09-23-2024 Telephone encounter Eva Nielsen MD Work Phone: Endocrinology Comment on above: Patient Question Start: 09-22-2024 End: 09-22-2024 Telemedicine consultation with patient Clinton Bess RN Work Phone: [facility] Start: 09-22-2024 End: 09-27-2024 Telephone encounter Alcira Anderson MD Work Phone: Internal Medicine [place] Comment on above: Appointment (R/s) Start: 09-22-2024 End: 09-22-2024 ambulatory Clinton Bess RN Work Phone: 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); Type 1 diabetes mellitus with gastroparesis (HCC); Hda-sdyd-cofo 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, associated with type 1 diabetes mellitus (HCC) Start: 09-20-2024 End: 09-20-2024 ambulatory [facility] Facility:[facility] Start: 09-16-2024 End: 09-16-2024 ambulatory [facility] Facility:[facility] Start: 09-13-2024 ambulatory OMAYRA Castro [facility] Start: 09-13-2024 End: 09-13-2024 Office outpatient visit 15 minutes Omayra Herndon CNP Work Phone: [facility] Pulmonary Disease [facility] Comment on above: Restrictive lung dis ease (Primary Dx); Pulmonary fibrosis; Uncomplicated asthma, unspecified asthma severity, unspecified whether persistent; Chronic obstructive pulmonary disease, unspecified COPD type Start: 09-06-2024 ambulatory ALCIRA Castro [facility] Start: 09-06-2024 End: 09-06-2024 Subsequent hospital visit by physician Omayra Herndon CNP Work Phone: [facility] Pulmonary Comment on above: Arrived Start: 09-05-2024 End: 09-05-2024 Office outpatient visit 25 minutes Alcira Anderson MD Work Phone: [facility] [place] Comment on above: Medicare annual well ness visit, subsequent (Primary Dx); Weight loss; Acute cough; Type 1 diabetes mellitus with diabetic neuropathy (HCC); Mild intermittent asthma without complication (HCC); Cerebral infarction, unspecified mechanism (HCC); 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 Alcira Anderson MD Work Phone: [facility] Work Phone: Start: 08-29-2024 End: 08-29-2024 E-mail encounter from caregiver Shobha Vines APRN.CNP Work Phone: [facility] Start: 08-29-2024 End: 08-29-2024 Subsequent hospital visit by physician Xr [facility] [place] Work Phone: Radiology Comment on above: Community acquired p neumonia, unspecified laterality [J18.9] Start: 08-29-2024 End: 08-29-2024 ambulatory Shobha Vines APRN.CROP AND SOIL TECHNICIAN Work Phone: [facility] Comment on above: RESULTS Start: 08-29-2024 End: 08-29-2024 Patient encounter procedure Shobha Vines APRN.CROP AND SOIL TECHNICIAN Work Phone: [facility] Comment on above: Community acquired p neumonia, unspecified laterality (Primary Dx); Bacterial sinusitis; Seasonal allergic rhinitis due to other allergic trigger Start: 08-17-2024 End: 08-17-2024 Telephone encounter Alcira Anderson MD Work Phone: [facility] [place] Comment on above: Patient Update (on p ulmonology appt) Start: 08-04-2024 End: 08-04-2024 Telephone encounter Eva Nielsen MD Work Phone: Endocrinology Comment on above: Certificate of Medic al Necessity Start: 07-26-2024 End: 07-26-2024 Office outpatient visit 25 minutes Omayra Herndon CNP Work Phone: [facility] Pulmonary Disease [facility] Comment on above: Restrictive lung dis ease (Primary Dx); Chronic cough; 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 Start: 07-26-2024 ambulatory OMAYRA Castro [facility] Start: 07-11-2024 End: 08-17-2024 ambulatory Hernesto Harvey APRN.CROP AND SOIL TECHNICIAN Work Phone: [facility] [place] Comment on above: zolpidem Start: 06-08-2024 End: 06-08-2024 Telephone encounter Camille Hinton RN Pulmonary Medicine Comment on above: New ILD Start: 06-06-2024 End: 06-06-[address] Albert Umaña MD -Cat Scan, [facility] Work Phone: Start: 06-06-2024 End: 06-06-2024 [facility] Facility:[facility] Start: 06-06-2024 End: 06-06-2024 Patient encounter procedure Hernesto Harvey APRN.CNP Work Phone: [facility] [place] Comment on above: Insomnia, unspecifie d type (Primary Dx); Essential hypertension; 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); Chronic sinusitis, unspecified location Start: 06-06-2024 End: 06-06-2024 ambulatory Albert Umaña Facility:[facility] Start: 06-02-2024 End: 06-06-2024 Telephone encounter Eva Nielsen MD Work Phone: Endocrinology Comment on above: Updated OV Notes to DME Refill Request Start: 05-31-2024 End: 05-31-2024 Telephone encounter Omayra Falcon DO Work Phone: Gastroenterology Comment on above: Appointment Start: 05-30-2024 End: 06-03-2024 Telephone encounter Roland Grajeda MD Work Phone: [facility] [place] Start: 05-30-2024 End: 05-30-2024 ambulatory [facility] Facility:[facility] Start: 05-30-2024 End: 05-30-2024 Patient encounter procedure Roland Grajeda MD Work Phone: Rheumatology Comment on above: Seropositive rheumat oid arthritis (HCC) (Primary Dx); Long-term use of Plaquenil; Interstitial lung disease (HCC); Osteopenia of right hip; Gastroparesis Start: 05-23-2024 End: 05-23-2024 [facility] Facility:[facility] Start: 05-23-2024 End: 05-23-2024 Patient encounter procedure Eva Nielsen MD Work Phone: Endocrinology Comment on above: Type 1 diabetes pippa itus with mild nonproliferative retinopathy of both eyes without macular edema (HCC) (Primary Dx); Diabetes mellitus type 1, controlled, without complications (HCC) Start: 05-17-2024 End: 05-17-2024 Patient encounter procedure Christi VAUGHN -[facility] Work Phone: Start: 05-17-2024 End: 05-17-2024 ambulatory Christi VAUGHN Facility:[facility] Start: 05-16-2024 End: 05-16-[address] Work Phone: Endocrinology Start: 05-16-2024 End: 05-16-[address] Akil Rivera RD Work Phone: Endocrinology Comment on above: Medical Nutrition Th tejal (Type 1 Diabetes) Start: 05-11-2024 End: 05-16-2024 Telephone encounter Hernesto Harvey APRN.CROP AND SOIL TECHNICIAN Work Phone: [facility] [place] Comment on above: Patient Update Start: 05-09-2024 End: 05-09-2024 Telephone encounter Alcira Anderson MD Work Phone: [facility] [place] Comment on above: Medication Problem Start: 05-02-2024 End: 05-02-2024 Chart abstracting Alberto Argueta APRN.CROP AND SOIL TECHNICIAN Work Phone: Rheumatology Comment on above: Abstract (PLQ eye ex am) Start: 04-19-2024 End: 04-19-2024 ambulatory Alcira Anderson Facility:[facility] Start: 04-18-2024 End: 04-18-2024 ambulatory Albert Anjana Leeroy Facility:[facility] Start: 04-15-2024 End: 04-16-2024 Refill Alcira Anderson MD Work Phone: [facility] [place] Comment on above: Refill Request Start: 04-14-2024 End: 04-14-2024 ambulatory Hernesto Harvey APRN.CROP AND SOIL TECHNICIAN Work Phone: [facility] [place] Comment on above: Recurrent sinusitis (Primary Dx); Epistaxis Start: 04-14-2024 End: 04-14-2024 Telemedicine consultation with patient Hernesto Harvey APRN.CROP AND SOIL TECHNICIAN Work Phone: [facility] [place] Start: 04-06-2024 End: 04-06-2024 Refill Alberto Argueta APRN.CROP AND SOIL TECHNICIAN Work Phone: Rheumatology Comment on above: Refill Request Start: 03-29-2024 End: 03-29-2024 ambulatory Eva Nielsen MD Work Phone: Endocrinology Comment on above: Insulin Sets Start: 03-29-2024 End: 03-29-2024 E-mail encounter from caregiver Eva Nielsen MD Work Phone: Endocrinology Start: 03-29-2024 End: 03-29-2024 Telephone encounter Eva Nielsen MD Work Phone: Endocrinology Comment on above: Medication Problem Start: 03-02-2024 End: 03-02-2024 Refill Hernesto Harvey APRN.CROP AND SOIL TECHNICIAN Work Phone: [facility] [place] Comment on above: Refill Request Start: 02-22-2024 End: 02-22-2024 Telephone encounter Alcira Anderson MD Work Phone: [facility] [place] Comment on above: Orders Start: 02-22-2024 End: 02-22-2024 ambulatory Alcira Anderson MD Work Phone: [facility] [place] Comment on above: Gait abnormality (Pr imary Dx); Class 2 severe obesity with serious comorbidity and body mass index (BMI) of 39.0 to 39.9 in adult, unspecified obesity type (HCC); 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); Ataxia following cerebral infarction; 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) Start: 02-22-2024 End: 02-22-2024 Telemedicine consultation with patient Alcira Anderson MD Work Phone: [facility] [place] Start: 02-17-2024 End: 02-18-2024 Telephone encounter Eva Nielsen MD Work Phone: Orthopaedics Start: 02-16-2024 End: 02-16-2024 Patient encounter procedure Eva Nielsen MD Work Phone: Endocrinology Comment on above: Type 1 diabetes pippa itus with mild nonproliferative retinopathy of both eyes without macular edema (HCC) (Primary Dx); Gastroparesis due to secondary diabetes (HCC); Type 1 diabetes mellitus with polyneuropathy (HCC) Start: 02-15-2024 End: 02-15-[address] Work Phone: Endocrinology Start: 02-15-2024 End: 02-15-[address]il Rivera RD Work Phone: Endocrinology Comment on above: Medical Nutrition Th tejal (Type 1 Diabetes) Start: 02-08-2024 End: 02-09-2024 Telephone encounter Eva Nielsen MD Work Phone: Endocrinology & Met[facility] [place] Comment on above: Appointment Start: 02-04-2024 End: 02-05-2024 Refill Alcira Anderson MD Work Phone: [facility] [place] Comment on above: Refill Request Start: 01-28-2024 End: 01-28-2024 Telephone encounter Alcira Anderson MD Work Phone: Family Medicine [place] Comment on above: cough worse Start: 01-25-2024 End: 01-25-2024 Subsequent hospital visit by physician Xr [facility] [place] Work Phone: Radiology Comment on above: Shortness of breath [R06.02] Start: 01-25-2024 End: 01-25-2024 Patient encounter procedure Hernesto Harvey APRN.CROP AND SOIL TECHNICIAN Work Phone: [facility] [place] Comment on above: Shortness of breath (Primary Dx); Wheezing; Acute recurrent sinusitis, unspecified location Start: 01-18-2024 End: 01-18-2024 Telephone encounter Hernesto Harvey APRN.CNP Work Phone: [facility] [place] Comment on above: Patient Question Start: 01-15-2024 End: 01-15-2024 Refill Alcira Anderson MD Work Phone: [facility] [place] Comment on above: Refill Request Start: 01-13-2024 End: 01-13-2024 ambulatory Hernesto Harvey APRN.CNP Work Phone: [facility] [place] Comment on above: COVID (Primary Dx); Acute non-recurrent sinusitis, unspecified location Start: 01-13-2024 End: 01-13-2024 Telemedicine consultation with patient Hernesto Harvey APRN.CROP AND SOIL TECHNICIAN Work Phone: [facility] [place] Start: 01-12-2024 End: 01-12-2024 Telephone encounter Hernesto Harvey APRN.CROP AND SOIL TECHNICIAN Work Phone: [facility] [place] Comment on above: Covid19 Concern Start: 01-06-2024 End: 01-07-2024 Telephone encounter Alcira Anderson MD Work Phone: [facility] [place] Comment on above: Medication Problem Start: 01-04-2024 End: 01-04-2024 Telephone encounter Alcira Anderson MD Work Phone: [facility] [place] Comment on above: Medication Problem ( Ambien new dosage not working) Start: 12-30-2023 End: 12-30-2023 ambulatory Alberto Argueta HAIR BOILER OPERATOR.CROP AND SOIL TECHNICIAN Work Phone: Rheumatology Comment on above: Seropositive rheumat oid arthritis (HCC) (Primary Dx); Interstitial lung disease (HCC); Long-term use of Plaquenil; Osteopenia of right hip Start: 12-30-2023 End: 12-30-2023 Telemedicine consultation with patient Alberto Argueta HAIR BOILER OPERATOR.CROP AND SOIL TECHNICIAN Work Phone: Rheumatology Start: 12-28-2023 End: 12-28-2023 Telephone encounter Alcira Anderson MD Work Phone: [facility] [place] Comment on above: Patient Question Start: 12-25-2023 End: 12-25-2023 Telephone encounter Eva Nielsen MD Work Phone: Endocrinology Comment on above: Orders (Request for insulin rx ) Start: 12-24-2023 End: 12-24-2023 ambulatory Hernesto Harvey APRN.CROP AND SOIL TECHNICIAN Work Phone: [facility] [place] Comment on above: Insomnia, unspecifie d type (Primary Dx); Intertrigo Start: 12-24-2023 End: 12-24-2023 Telemedicine consultation with patient Hernesto Harvey APRN.CROP AND SOIL TECHNICIAN Work Phone: [facility] [place] Start: 12-23-2023 End: 12-23-2023 Nursing evaluation of patient and report Clinton Bess RN Work Phone: Endocrinology Comment on above: Type 1 diabetes pippa itus with diabetic neuropathy (HCC) (Primary Dx) Start: 12-15-2023 End: 12-15-2023 Nursing evaluation of patient and report Clinton Bess RN Work Phone: Endocrinology Comment on above: Type 1 diabetes pippa itus with mild nonproliferative retinopathy of both eyes without macular edema (HCC); Type 1 diabetes mellitus with polyneuropathy (HCC) Start: 12-07-2023 End: 12-07-2023 Patient encounter procedure Hernesto Harvey APRN.CROP AND SOIL TECHNICIAN Work Phone: [facility] [place] Comment on above: Insomnia, unspecifie d type (Primary Dx); Type 1 diabetes mellitus with diabetic neuropathy (HCC); Mixed hyperlipidemia Start: 11-30-2023 Refill Alcira Khalil Work Phone: Internal Medicine [place] Comment on above: Refill Request Start: 11-26-2023 Telephone encounter Alcira jordan MD Work Phone: [facility] [place] Comment on above: Medication Question Start: 11-25-2023 End: 11-25-2023 Patient encounter procedure Siddharth Palm APRN.CROP AND SOIL TECHNICIAN Work Phone: [facility] Comment on above: Intertrigo (Primary Dx) Start: 11-24-2023 End: 11-24-2023 Patient encounter procedure Manuela Thomas HAIR BOILER OPERATOR.CROP AND SOIL TECHNICIAN Work Phone: [facility] Comment on above: Carotid stenosis, as ymptomatic, bilateral (Primary Dx) Start: 11-24-2023 End: 11-24-2023 ambulatory ALCIRA ANDERSON Facility:[facility] Start: 11-06-2023 Telephone encounter Eva Nielsen MD Work Phone: Endocrinology Comment on above: Appointment (Needs t o arrive early to appt today 11/06/2023) Start: 11-06-2023 End: 11-06-2023 Patient encounter procedure Eva Nielsen MD Work Phone: Endocrinology Comment on above: Type 1 diabetes pippa itus with mild nonproliferative retinopathy of both eyes, macular edema presence unspecified (HCC) (Primary Dx); Diabetic autonomic neuropathy associated with type 1 diabetes mellitus (HCC); Gastroparesis due to secondary diabetes (HCC) Start: 11-05-2023 ambulatory Eva Nielsen MD Work Phone: Endocrinology Comment on above: Appt Tomorrow with Joel Nielsen Start: 11-05-2023 E-mail encounter fro m caregiver Eva Nielsen MD Work Phone: Endocrinology Start: 10-30-2023 Documentation procedure Mammog sloan Coordinator [facility] Start: 10-30-2023 Letter encounter Mammography Coordinator [facility] Start: 10-29-2023 End: 10-29-2023 Subsequent hospital visit by physician [facility] Comment on above: Visit for screening mammogram [Z12.31] Start: 10-26-2023 Telephone encounter Eva Nielsen MD Work Phone: [facility] Comment on above: Refill Request Start: 10-13-2023 Telephone encounter Eva Nielsen MD Work Phone: Endocrinology Comment on above: Visit for screening mammogram (Primary Dx) Start: 10-05-2023 Refill Eav Nielsen MD Work Phone: Endocrinology Comment on above: Refill Request (OV n otes request) Start: 09-30-2023 Orders Only Manuela Williamson ws HAIR BOILER OPERATOR.CROP AND SOIL TECHNICIAN Work Phone: [facility] Comment on above: Carotid stenosis, as ymptomatic, bilateral (Primary Dx) Start: 09-29-2023 Refill Eva Nielsen MD Work Phone: Endocrinology Start: 09-22-2023 Telephone encounter Eva Nielsen MD Work Phone: Endocrinology Comment on above: Rx Request Start: 09-17-2023 Diabetic care education Petros Nielsen MD Work Phone: Endocrinology Comment on above: Diabetes Education/N utrition Start: 09-17-2023 E-mail encounter zurdo martin caregiver Eva Nielsen MD Work Phone: Endocrinology Start: 09-17-2023 Telephone encounter Eva Nielsen MD Work Phone: Endocrinology Start: 09-16-2023 Refill Eva Nielsen MD Work Phone: Endocrinology Comment on above: Refill Request Patient Question Start: 09-15-2023 End: 09-15-2023 Patient encounter procedure Eva Nielsen MD Work Phone: Endocrinology Comment on above: Type 1 diabetes pippa itus with mild nonproliferative retinopathy of both eyes without macular edema (HCC) (Primary Dx); Type 1 diabetes mellitus with polyneuropathy (HCC); Class 2 severe obesity with serious comorbidity and body mass index (BMI) of 39.0 to 39.9 in adult, unspecified obesity type (HCC) Start: 09-07-2023 End: 09-07-[address] Nutrition Therapy Start: 09-07-2023 End: 09-07-[address] Nutrition Therapy Comment on above: Reassessment; Patien t Education Start: 08-28-2023 End: 01-14-2024 Telephone encounter Radha Story RD Nutrition Therapy Comment on above: Patient Question Start: 08-25-2023 ambulatory [facility] Start: 08-25-2023 End: 08-25-2023 Office outpatient visit 25 minutes Ivan Rodriguez MD Work Phone: [facility] [place] Comment on above: Pulmonary fibrosis ( Primary Dx); Uncomplicated asthma, unspecified asthma severity, unspecified whether persistent; SOLE on CPAP Start: 08-19-2023 End: 08-19-2023 Patient encounter procedure Hernesto Harvey APRN.CNP Work Phone: [facility] Medicine [place] Comment on above: Essential hypertensi on (Primary Dx); Type 1 diabetes mellitus with diabetic neuropathy (HCC); Mixed hyperlipidemia; Gastroesophageal reflux disease without esophagitis; Restless legs; Multiple falls; Bruising Start: 08-14-2023 End: 08-14-2023 Subsequent hospital visit by physician Ivan Rodriguez MD Work Phone: [facility] Pulmonary Comment on above: Arrived Start: 08-10-2023 End: 08-10-[address] Nutrition Therapy Start: 08-10-2023 End: 08-10-[address] Nutrition Therapy Comment on above: Assessment; Patient Education Start: 08-03-2023 Orders Only Eva Nielsen MD Work Phone: Endocrinology Comment on above: Type 1 diabetes pippa itus with mild nonproliferative retinopathy of both eyes without macular edema (HCC) (Primary Dx) Start: 07-31-2023 End: 07-31-2023 Patient encounter procedure Alberto Argueta APRN.CROP AND SOIL TECHNICIAN Work Phone: Rheumatology Comment on above: Seropositive rheumat oid arthritis (HCC) (Primary Dx); Interstitial lung disease (HCC); Long-term use of Plaquenil Start: 07-24-2023 Refill Alcira Khalil Work Phone: [facility] [place] Comment on above: Refill Request Start: 07-02-2023 Telephone encounter Eva Nielsen MD Work Phone: Endocrinology Start: 06-29-2023 Telephone encounter Eva Nielsen MD Work Phone: Endocrinology Comment on above: Orders Start: 06-26-2023 Telephone encounter Eva Nielsen MD Work Phone: Endocrinology Comment on above: Insulin & Pump Rx to DME ([facility]) Patient Question Start: 06-26-2023 End: 06-26-2023 Patient encounter procedure Manuela Heart HAIR BOILER OPERATOR.CROP AND SOIL TECHNICIAN Work Phone: [facility] Comment on above: Right knee pain, uns pecified chronicity (Primary Dx) Patellar tendon stra in, right, initial encounter (Primary Dx); Right knee pain, unspecified chronicity Start: 06-25-2023 ambulatory Eva Nielsen MD Work Phone: Endocrinology Start: 06-25-2023 E-mail encounter zurdo m caregiver Eva Nielsen MD Work Phone: [facility] Start: 06-25-2023 Telephone encounter Eva Nielsen MD Work Phone: Endocrinology Comment on above: Medication Problem ( Unsure of where to send medications) Start: 06-24-2023 Telephone encounter Eva Nielsen MD Work Phone: Endocrinology Comment on above: Patient Question (In sulin request from [facility]) Start: 06-12-2023 End: 06-12-2023 Patient encounter procedure Eva Nielsen MD Work Phone: Endocrinology Comment on above: Type 1 diabetes pippa itus with polyneuropathy (HCC) (Primary Dx); 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); Class 2 severe obesity with serious comorbidity and body mass index (BMI) of 39.0 to 39.9 in adult, unspecified obesity type (HCC) Start: 06-01-2023 Telephone encounter Alcira jordan MD Work Phone: [facility] Medicine [place] Comment on above: Patient Update; Idania pichardo Start: 05-23-2023 End: 05-23-2023 Emergency department patient visit Dr. Alcira Anderson Work Phone: [facility]-Emergency Department Work Phone: Start: 05-22-2023 Telephone encounter Hernesto Harvey APRN.CNP Work Phone: [facility] Medicine [place] Comment on above: Patient Question; Deanna lazo Start: 05-18-2023 End: 05-18-[address] Alcira Anderson Work Phone: [facility] Work Phone: Start: 05-18-2023 End: 05-18-[address] Alcira Anderson Work Phone: [facility]-Radiology, [facility] Work Phone: Start: 04-08-2023 Non-patient / Non-visit Dr. Yesica Anderson Work Phone: [facility] Start: 04-08-2023 End: 04-08-2023 Admission to same day surgery center Dr. Alcira Anderson Work Phone: [facility]-Endoscopy Work Phone: Start: 04-08-2023 End: 04-08-[address] Alcira Anderson Work Phone: [facility] Work Phone: Start: 03-23-2023 End: 03-23-[address] Alcira Anderson Work Phone: [facility] Gastroenterology Work Phone: Start: 03-17-2023 End: 03-17-2023 Subsequent hospital visit by physician Bone Density [facility] Work Phone: Radiology Comment on above: Osteopenia of right hip [M85.851] Start: 03-09-2023 Telephone encounter Alcira jordan MD Work Phone: [facility] [place] Comment on above: vaccine question Start: 03-04-2023 Refill Hernesto Harvey APRN, .CNP Work Phone: [facility] [place] Comment on above: Refill Request Start: 02-23-2023 End: 02-23-2023 Patient encounter procedure Roland Grajeda MD Work Phone: Rheumatology Comment on above: Seropositive rheumat oid arthritis (HCC) (Primary Dx); Interstitial lung disease (HCC); Long-term use of Plaquenil; Osteopenia of right hip Start: 02-23-2023 Telephone encounter Roland Mcgregor MD Work Phone: Rheumatology Comment on above: [employer] - [employer] ther Start: 02-11-2023 End: 02-11-[address] Alcira Anderson Work Phone: [facility] Work Phone: Start: 02-11-2023 End: 02-11-[address] 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; penitentiary current use of non-steroidal anti-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 (NSAID); 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 of systemic steroids; Long-term use of high-risk medication; Long-term use of Plaquenil; On statin therapy; Fatty liver; Hyperchloremia; Hyperglycemia; Lumbar degenerative disc disease; Osteoarthritis of cervical spine, unspecified spinal osteoarthritis complication status; Osteoarthritis of both hands, unspecified osteoarthritis type; Osteoarthritis of both wrists, unspecified osteoarthritis type; Rotator cuff arthropathy of both shoulders; Thoracic degenerative disc disease Start: 01-26-2023 End: 01-26-[address] Alcira Anderson Work Phone: [facility] Endocrinology Work Phone: Start: 01-08-2023 ambulatory [facility] Start: 01-08-2023 End: 01-08-2023 Office outpatient visit 25 minutes Ivan Rodriguez MD Work Phone: [facility] Comment on above: Pulmonary fibrosis ( Primary Dx); Restrictive lung disease; SOLE on CPAP; Uncomplicated asthma, unspecified asthma severity, unspecified whether persistent; Screening for viral disease Start: 01-05-2023 End: 01-05-2023 Patient encounter procedure Hernesto Harvey APRN.CNP Work Phone: [facility] Medicine [place] Comment on above: Type 1 diabetes pippa itus with mild nonproliferative retinopathy of both eyes without macular edema (HCC) (Primary Dx); Hypertension, unspecified type; Insomnia, unspecified type; Rheumatoid arthritis, involving unspecified site, unspecified whether rheumatoid factor present (HCC); Left hip pain Start: 12-17-2022 Refill Hernesto MaloneCROP AND SOIL TECHNICIAN Work Phone: [facility] [place] Comment on above: Refill Request Start: 12-09-2022 Telephone encounter Alcira jordan MD Work Phone: [facility] [place] Comment on above: Dropping off paperwo rk for Specialist Start: 12-05-2022 ambulatory Pcp (Historical) [facility] Start: 12-04-2022 End: 12-04-2022 Subsequent hospital visit by physician Ivan Rodriguez MD Work Phone: [facility] Comment on above: Arrived Start: 12-02-2022 ambulatory Pcp (Historical) [facility] Start: 12-01-2022 Refill Hernesto MaloneCROP AND SOIL TECHNICIAN Work Phone: [facility] [place] Comment on above: Refill Request Start: 11-24-2022 End: 11-24-2022 Patient encounter procedure Hernesto Harvey APRN.CROP AND SOIL TECHNICIAN Work Phone: [facility] [place] Comment on above: Left hip pain (Prima ry Dx); Fall, initial encounter; Rheumatoid arthritis, involving unspecified site, unspecified whether rheumatoid factor present (HCC); Interstitial lung disease (HCC); Cerebral infarction, unspecified mechanism (HCC); Lumbar disc herniation; 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) Start: 11-18-2022 End: 11-18-2022 ambulatory Manuela Thomas APRN.CROP AND SOIL TECHNICIAN Work Phone: [facility] Comment on above: Bilateral carotid ar amy stenosis (Primary Dx) Start: 11-18-2022 End: 11-18-2022 Telemedicine consultation with patient Manuela Thomas CARLOS EDUARDO.CROP AND SOIL TECHNICIAN Work Phone: [facility] Start: 07-31-2023 ambulatory [facility] [place] Comment on above: Population Health Na vigation Outreach (ANSHUL WEBER [facility]) Start: 11-12-2022 ambulatory IVAN RODRIGUEZ [facility] Start: 11-12-2022 End: 11-12-2022 Office outpatient new 45 minutes Ivan Rodriguez MD Work Phone: [facility] Comment on above: Secondary pulmonary arterial hypertension (Primary Dx); NSIP (nonspecific interstitial pneumonitis); Mild intermittent asthma without complication; Interstitial lung disease; Screening for viral disease; Reactive airway disease without complication, unspecified asthma severity, unspecified whether persistent; SOLE on CPAP; Restrictive lung disease Start: 11-04-2022 End: 11-04-[address] Alcira Anderson Work Phone: [facility] Endocrinology Work Phone: Start: 10-27-2022 End: 10-27-2022 Subsequent hospital visit by physician Screen Mammo [facility] Mamm[facility] Comment on above: Screening mammogram, encounter for [Z12.31] Start: 10-22-2022 Telephone encounter Alcira jordan MD Work Phone: [facility] [place] Comment on above: Orders Start: 10-13-2022 Telephone encounter Alcira jordan MD Work Phone: [facility] [place] Comment on above: Patient Update Start: 10-01-2022 End: 10-01-2022 ambulatory Hernesto Harvey APRN.CNP Work Phone: [facility] [place] Comment on above: Rheumatoid arthritis , involving unspecified site, unspecified whether rheumatoid factor present (HCC) (Primary Dx); Interstitial lung disease (HCC) Start: 10-01-2022 End: 10-01-2022 Telemedicine consultation with patient Hernesto Wes ORNELASCROP AND SOIL TECHNICIAN Work Phone: [facility] [place] Start: 09-29-2022 End: 09-29-2022 Office outpatient visit 25 minutes Clinton Farrar DO Work Phone: [facility] Rheumatology Comment on above: NSIP (nonspecific in terstitial pneumonitis) (Primary Dx); Fatty liver; Hyperglycemia; Metabolic acidosis; Lumbar degenerative disc disease; Osteoarthritis of cervical spine, unspecified spinal osteoarthritis complication status; Osteoarthritis of both hands, unspecified osteoarthritis type; Osteoarthritis of both wrists, unspecified osteoarthritis type; Rotator cuff arthropathy of both shoulders; Thoracic degenerative disc disease; Positive D dimer; History of rheumatoid arthritis; History of stroke; 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; 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 of non-steroidal anti-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 (NSAID); Long-term use of high-risk medication; Long-term use of Plaquenil; On statin therapy Start: 09-23-2022 End: 09-23-[address] Alc[facility] Anderson [facility] Work Phone: Start: 09-18-2022 End: 09-18-2022 Patient encounter procedure Alcira Anderson MD Work Phone: [facility] [place] Comment on above: Medicare annual [facility] visit, subsequent (Primary Dx); Anxiety state; Essential hypertension; Type 1 diabetes mellitus with diabetic neuropathy (HCC); Mixed hyperlipidemia; Gastroesophageal reflux disease without esophagitis Start: 09-05-2022 Non-patient / Non-visit Dr. Yesica Anderson Work Phone: [facility] Start: 09-04-2022 End: 09-04-[address] Alcira Anderson Work Phone: [facility] Work Phone: Start: 09-04-2022 End: 09-04-[address] Alcira Anderson Work Phone: [facility]Pulmonary Services/Neurology Work Phone: Start: 09-02-2022 Non-patient / Non-visit Dr. Yesica Anderson Work Phone: [facility] Start: 09-01-2022 End: 09-01-[address] Alcira Anderson Work Phone: [facility] Services/Neurology Work Phone: Start: 08-26-2022 End: 08-26-[address] Alcira Anderson Work Phone: [facility] [place] Work Phone: Start: 08-20-2022 End: 08-20-[address] Alcira Anderson Work Phone: [facility] [facility] Work Phone: Start: 08-18-2022 Refill Alcira Khalil Work Phone: [facility] [place] Comment on above: Refill Request Start: 08-08-2022 Telephone encounter Alcira jordan MD Work Phone: [facility] [place] Comment on above: Faxed to [facility] Start: 08-07-2022 Telephone encounter Diana Duong Pulmonary Medicine Comment on above: New ILD Start: 08-06-2022 Telephone encounter Hernesto Harvey APRN.CROP AND SOIL TECHNICIAN Work Phone: [facility] [place] Comment on above: Orders Start: 08-06-2022 End: 08-06-2022 Subsequent hospital visit by physician [facility] (I-Stat) Work Phone: [facility] Comment on above: Chest pain on breath ing [R07.1] Start: 08-04-2022 End: 08-04-2022 Subsequent hospital visit by physician Xr [facility] [place] Work Phone: Radiology Comment on above: Shortness of breath [R06.02] Start: 08-04-2022 End: 08-04-2022 Patient encounter procedure Hernesto Harvey APRN.CNP Work Phone: [facility] [place] Comment on above: Pneumonia of both abbey ngs due to infectious organism, unspecified part of lung (Primary Dx); Shortness of breath; Chest pain on breathing; Cough, unspecified type Start: 07-30-2022 Telephone encounter Hernesto Harvey APRN.CNP Work Phone: [facility] [place] Comment on above: Patient Update Start: 07-25-2022 Telephone encounter Hernesto Harvey APRN.CROP AND SOIL TECHNICIAN Work Phone: [facility] [place] Comment on above: Orders Start: 07-21-2022 End: 07-21-2022 Patient encounter procedure Hernesto Harvey APRN.CROP AND SOIL TECHNICIAN Work Phone: [facility] [place] Comment on above: Pneumonia of both abbey ngs due to infectious organism, unspecified part of lung (Primary Dx); 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); [place] Start: 07-17-2022 End: 07-17-2022 Refill Alcira Anderson MD Work Phone: [facility] [place] Comment on above: Refill Request Pneumonia of both abbey ngs due to infectious organism, unspecified part of lung (Primary Dx); Mild intermittent asthma with acute exacerbation Start: 07-09-2022 Telephone encounter Alcira jordan MD Work Phone: [facility] [place] Comment on above: Appointment Insurance Authorizat ion Start: 07-09-2022 End: 07-09-2022 Subsequent hospital visit by physician Xr [facility] [place] Work Phone: Radiology Comment on above: Acute cough [R05.1] Start: 06-25-2022 Refill Clinton Heart DO Work Phone: [facility] [place] Start: 06-16-2022 Telephone encounter Alcira jordan MD Work Phone: [facility] [place] Comment on above: Fax referral to [facility] Start: 06-13-2022 Telephone encounter Alcira jordan MD Work Phone: [facility] [place] Comment on above: Patient Question Start: 06-09-2022 End: 06-09-2022 Patient encounter procedure Hernesto Harvey APRN.CROP AND SOIL TECHNICIAN Work Phone: [facility] [place] Comment on above: Essential hypertensi on (Primary Dx); Type 1 diabetes mellitus with diabetic neuropathy (HCC); Bilateral edema of lower extremity; Dysuria; Proteinuria, unspecified type; Dark yellow-colored urine; Mixed hyperlipidemia; [place] Start: 06-04-2022 Telephone encounter Alcira jordan MD Work Phone: [facility] [place] Comment on above: Appointment Start: 06-02-2022 E-mail encounter fro m caregiver [facility] Provider OTTO GUERRERO Start: 06-02-2022 Patient encounter procedure [facility] Provider [facility] Comment on above: Annual Wellness Exam Start: 05-29-2022 End: 05-29-2022 Patient encounter procedure Marques Rangel Work Phone: Podiatry Comment on above: Hyperkeratosis (Prim joann Dx); Diabetic polyneuropathy associated with type 2 diabetes mellitus (HCC) Start: 05-29-2022 Telephone encounter Alcira jordan MD Work Phone: [facility] [place] Comment on above: Opened In Error Start: 05-23-2022 Refill Alcira Khalil Work Phone: [facility] Comment on above: Refill Request Start: 05-23-2022 Refill Hernesto Harvey APRN, .CNP Work Phone: [facility] [place] Comment on above: Refill Request Start: 05-21-2022 Telephone encounter Marques Rivers Work Phone: Podiatry Comment on above: Appointment Start: 05-13-2022 Refill Alcira Khalil Work Phone: [facility] Comment on above: Refill Request Start: 04-18-2022 Refill Alcira Khalil Work Phone: [facility] [place] Comment on above: Refill Request Start: 04-07-2022 ambulatory Clinton Heart DO Work Phone: [facility] [place] Start: 04-03-2022 End: 04-03-2022 Patient encounter procedure Marques Rangel Work Phone: Podiatry Comment on above: Hyperkeratosis (Prim joann Dx); Onychomycosis; Pain in toe of left foot; Pain in toe of right foot; Diabetic polyneuropathy associated with type 2 diabetes mellitus (HCC); Hammertoe of right foot; Hammertoe of left foot Start: 02-26-2022 End: 02-26-[address] Alcira Anderson Work Phone: [facility] Work Phone: Start: 02-26-2022 End: 02-26-[address] Alcira Anderson Work Phone: [facility]-Nuclear Medicine, [facility] Start: 02-03-2022 Telephone encounter Hernesto Harvey APRN.CROP AND SOIL TECHNICIAN Work Phone: [facility] [place] Comment on above: Results Start: 01-30-2022 Telephone encounter Alcira jordan MD Work Phone: [facility] [place] Comment on above: Results Start: 01-23-2022 ambulatory Priscilla Henning MA [facility] [place] Comment on above: Population Health Na vigation Outreach ([facility]) Start: 01-22-2022 ambulatory Alcira Khalil Work Phone: [facility] [place] Comment on above: UTI (Frequency and b urning and yeast infection /) Start: 01-20-2022 Telephone encounter Alcira jordan MD Work Phone: [facility] [place] Comment on above: Medicare Form Start: 12-30-2021 End: 12-30-2021 Patient encounter procedure Marques Rangel Work Phone: Podiatry Comment on above: Contusion of lesser toe of right foot without damage to nail, initial encounter (Primary Dx); Onychomycosis; Pain in toe of left foot; Pain in toe of right foot; Hyperkeratosis Start: 12-30-2021 End: 12-30-2021 Subsequent hospital visit by physician Xr [facility] Work Phone: Radiology Comment on above: Pain in right foot [ M79.671] Start: 12-27-2021 Refill Alcira Khalil Work Phone: [facility] [place] Start: 12-24-2021 Telephone encounter Marques Rivers Work Phone: Podiatry Comment on above: Patient Update Start: 12-04-2021 End: 12-04-[address] Alcira Anderson Work Phone: [facility]Laboratory Start: 12-04-2021 End: 12-04-[address] 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); Anxiety state; Left shoulder pain, unspecified chronicity; Chronic constipation; Vitamin D deficiency Start: 11-21-2021 End: 11-21-2021 Telemedicine consultation with patient Hernesto Wes ORNELASCROP AND SOIL TECHNICIAN Work Phone: [facility] Start: 11-13-2021 End: 11-13-2021 Patient encounter procedure Marques Rangel Work Phone: Podiatry Comment on above: Hyperkeratosis (Prim joann Dx); Hammertoe of right foot Start: 11-05-2021 End: 11-05-2021 Patient encounter procedure Manuela Thomas HAIR BOILER OPERATOR.CROP AND SOIL TECHNICIAN Work Phone: [facility] Comment on above: Bilateral carotid ar amy stenosis (Primary Dx) Start: 10-31-2021 End: 10-31-[address] Alcira Anderson Work Phone: [facility] Endocrinology Start: 10-24-2021 End: 10-24-2021 Patient encounter procedure Hernesto Harvey APRN.CROP AND SOIL TECHNICIAN Work Phone: [facility] [place] Comment on above: Chronic constipation (Primary Dx); Type 1 diabetes mellitus with diabetic neuropathy (HCC); Essential hypertension Start: 10-22-2021 Documentation procedure Mammog sloan Coordinator [facility] Start: 10-22-2021 Letter encounter Mammography Coordinator [facility] Department Start: 10-22-2021 End: 10-22-2021 Subsequent hospital visit by physician Screen Mammo [facility] Comment on above: Encounter for screen ing mammogram for malignant neoplasm of breast [Z12.31] Refill Request Start: 10-14-2021 Telephone encounter Juanita garcia MD Work Phone: [facility] Comment on above: Appointment Orders Refill Request Start: 10-11-2021 Telephone encounter Alcira jordan MD Work Phone: [facility] [place] Comment on above: Orders Start: 09-27-2021 Telephone encounter Hernesto Harvey APRN.CROP AND SOIL TECHNICIAN Work Phone: [facility] [place] Comment on above: rx to mail away phar desirae cost to be cheaper Start: 09-26-2021 End: 09-26-2021 Patient encounter procedure Hernesto Harvey APRN.CROP AND SOIL TECHNICIAN Work Phone: [facility] [place] Comment on above: Chronic constipation (Primary Dx); Bloating Start: 09-26-2021 Telephone encounter Alcira jordan MD Work Phone: [facility] [place] Comment on above: Insurance Authorizat ion Start: 09-23-2021 ambulatory Hernesto MaloneCROP AND SOIL TECHNICIAN Work Phone: Internal [facility] [place] Comment on above: Appt the 9th Start: 09-20-2021 End: 09-20-2021 Patient encounter procedure Marques Rangel Work Phone: Podiatry Comment on above: Onychomycosis (Prima ry Dx); Pain in toe of left foot; Pain in toe of right foot; Diabetic polyneuropathy associated with type 2 diabetes mellitus (HCC); Hyperkeratosis; Hammertoe of left foot Start: 08-14-2021 Refill Vicente Mcgrath HAIR BOILER OPERATOR.CROP AND SOIL TECHNICIAN Work Phone: [facility] [place] Comment on above: Refill Request Start: 08-05-2021 Refill Alcira Khalil Work Phone: [facility] [place] Comment on above: Refill Request; Refi ll Request Start: 06-11-2021 Telephone encounter Rhett Rueda MD Work Phone: Neurology Comment on above: Sign POC for HH Start: 04-24-2021 Telephone encounter Rhett Rueda MD Work Phone: Neurology Comment on above: Problems with Physic al Therapy Start: 03-04-2021 End: 03-04-2021 Office outpatient visit 25 minutes Clinton Farrar DO Work Phone: [facility] Rheumatology Comment on above: Rheumatoid arthritis of multiple sites with negative rheumatoid factor (Primary Dx); 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 of systemic steroids; 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; History of stroke; History of rheumatoid arthritis; Elevated hemidiaphragm; BONILLA (nonalcoholic steatohepatitis); Fatty liver; Thoracic degenerative disc disease; Rotator cuff arthropathy of both shoulders; Osteoarthritis of both wrists, unspecified osteoarthritis type; Osteoarthritis of both hands, unspecified osteoarthritis type; Osteoarthritis of cervical spine, unspecified spinal osteoarthritis complication status; Lumbar degenerative disc disease Start: 05-16-2019 End: 05-16-2019 Office outpatient new 60 minutes Clinton Farrar Work Phone: [facility] Rheumatology Comment on above: Rheumatoid arthritis involving multiple sites with positive rheumatoid factor (Primary Dx); Antiplatelet or antithrombotic long-term use; Fatigue, unspecified type; History of rheumatoid arthritis; History of stroke; 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; Asthma, unspecified asthma severity, unspecified whether complicated, unspecified whether persistent; Essential hypertension; Fatty liver; Gastroesophageal reflux disease, esophagitis presence not specified; Diabetic polyneuropathy associated with type 1 diabetes mellitus; Dyslipidemia; 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 Yesica Anderson MD Work Phone: Start: 01-17-[address] Alcira Anderson MD Work Phone: Start: 01-17-2025 Computed tomography of abdomen and pelvis with contrast Dr. Alcira Anderson MD Work Phone: Start: 09-06-2024 PFT COMPLETE Omayra thomas CNP Work Phone: Start: 09-06-2024 Pulmonary stress testing Omayra Herndon CROP AND SOIL TECHNICIAN Work Phone: Start: 08-29-2024 Radiologic exam ches t 2 views Shobha Vines HAIR BOILER OPERATOR.CROP AND SOIL TECHNICIAN Work Phone: Start: 06-06-[address] Alcira Anderson MD Work Phone: Start: 05-23-2024 Hemoglobin A1c/Hemoglobin.total in Blood Eva Nielsen MD Work Phone: Start: 02-16-2024 Hemoglobin A1c/Hemoglobin.total in Blood Eva Nielsen MD Work Phone: Start: 01-25-2024 Radiologic exam ches t 2 views Hernesto Harvey HAIR BOILER OPERATOR.CROP AND SOIL TECHNICIAN Work Phone: Start: 08-14-2023 PFT COMPLETE Ivan Rodriguez MD Work Phone: Start: 08-14-2023 Pulmonary stress testing Ivan Rodriguez MD Work Phone: Start: 05-23-2023 Radiologic examinati on of knee Dr. Alcira Anderson Work Phone: Start: 05-18-2023 Plain x-ray of pelvi s and lower extremity Dr. Alcira Anderson Work Phone: Start: 05-18-2023 X-ray of lumbar spin e, two or three views Dr. Alcira Anderson Work Phone: Start: 04-08-[address] Alcira Anderson Work Phone: Start: 03-17-2023 Dxa bone density harpreet dy 1/> sites axial reinier Grajeda MD Work Phone: Start: 12-04-2022 Echo tthrc r-t 2d w/wom-mode compl spec&colr d Ivan Rodriguez MD Work Phone: Start: 12-04-2022 Ct thorax w/o contra st material Ivan Rodriguez MD Work Phone: Start: 12-04-2022 PFT COMPLETE Ivan Rodriguez MD Work Phone: Start: 12-04-2022 Pulmonary stress testing Ivan Rodriguez MD Work Phone: Start: 10-27-2022 Screening mammograph y bi 2-view breast inc cad Brittney Mercado PA-C Work Phone: Start: 08-06-2022 Ct thorax w/contrast material Hernesto Harvey HAIR BOILER OPERATOR.CROP AND SOIL TECHNICIAN Work Phone: Start: 08-04-2022 Radiologic exam ches t 2 views Hernesto Harvey HAIR BOILER OPERATOR.CROP AND SOIL TECHNICIAN Work Phone: Start: 07-09-2022 Radiologic exam ches t 2 views Blaise VAUGHN Work Phone: Start: 06-09-2022 Urnls dip stick/tabl et reagent auto microscopy Hernesto Older HAIR BOILER OPERATOR.CROP AND SOIL TECHNICIAN Work Phone: Start: 06-09-2022 Urnls dip stick/tabl et rgnt auto w/o microscopy Hernesto Harvey HAIR BOILER OPERATOR.CROP AND SOIL TECHNICIAN Work Phone: Start: 06-09-2022 Hemoglobin A1c/Hemoglobin.total in Blood Hernesto Harvey HAIR BOILER OPERATOR.CROP AND SOIL TECHNICIAN Work Phone: Start: 02-26-2022 [address] emptying study Dr. Alcira Anderson Work Phone: Start: 10-22-2021 Screening mammograph y bi 2-view breast inc cad Hernesto Harvey HAIR BOILER OPERATOR.CROP AND SOIL TECHNICIAN Work Phone: Start: 09-10-2020 Mammography Vicente west HAIR BOILER OPERATOR.CROP AND SOIL TECHNICIAN Work Phone: Start: 08-10-2020 End: 03-04-2021 Laboratory test result abnormal Abnormal serum STEFFANY level Clinton Farrar Jr., DO Work Phone: Start: 11-10-2018 Colonoscopy Vicente west HAIR BOILER OPERATOR.CROP AND SOIL TECHNICIAN Work Phone: Start: 06-26-2000 History of placement of stent for coronary artery disease History of coronary artery stent placement Christi VAUGHN Comment on above: PTCA and JUANY of prox imal RCA 06/26/2000 @ [facility] per Dr. Ada Garcia Plan of Treatment Date Care Activity Detail Author Start: 07-31-2031 Tetanus vaccination TETANUS [facility] Start: 07-31-2031 Urine microalbumin profile DTaP,Tdap,Td Vaccine (3 - Td or Tdap) [facility] Start: 11-29-2025 Annual PCP Team Chronic Disease Visit Annual PCP Team Chronic Disease Visit [facility] Start: 10-15-2025 End: 12-15-2025 US Carotid arteries - bilateral US CAROTID ARTERIES [facility] Vascular Lab Routine Carotid stenosis, asymptomatic, bilateral Expected: 10/15/2025, Expires: 12/15/2025 [facility] Work Phone: Comment on above: Expected: 10/15/2025, Expires: Start: 09-16-2025 Hepatitis B screening Urine Albumin:Creatinine Ratio [facility] Start: 09-16-2025 Hepatitis B surface antibody level LDL Cholesterol [facility] Start: 09-05-2025 Annual PCP Team Chronic Disease Visit Annual PCP Team Chronic Disease Visit [facility] Start: 09-05-2025 Medicare Annual Wellness Visit Medicare Annual Wellness Visit [facility] Start: 08-29-2025 BP Controlled (<130/80) BP Controlled (<130/80) [facility] Start: 08-21-2025 End: 08-21-2025 Patient encounter procedure 08/21/2025 1:30 PM EDT Office Visit Rheumatology [address] [place] [address] Alberto Argueta, CARLOS EDUARDO.CROP AND SOIL TECHNICIAN [address] [place] [address] Follow up Rheumatology Comment on above: Follow up Start: 06-06-2025 Annual PCP Team Chronic Disease Visit Annual PCP Team Chronic Disease Visit [facility] Start: 06-06-2025 BP Controlled (<130/80) BP Controlled (<130/80) [facility] Start: 05-30-2025 BP Controlled (<130/80) BP Controlled (<130/80) [facility] Start: 05-30-2025 Diabetic foot examination Diabetic Foot Exam [facility] Start: 05-23-2025 BP Controlled (<130/80) BP Controlled (<130/80) [facility] Start: 05-02-2025 Glaucoma screening Dilated Retinal Exam [facility] Start: 04-14-2025 Annual PCP Team Chronic Disease Visit Annual PCP Team Chronic Disease Visit [facility] Start: 04-11-2025 End: 04-11-2025 Patient encounter procedure 04/11/2025 10:00 AM EST Office Visit Rheumatology [id number] [place] [address] Roland Grajeda MD [address] [place] [address] 10mo follow up Rheumatology Comment on above: 10mo follow up Start: 03-20-2025 End: 03-20-2025 Patient encounter procedure 03/20/2025 7:45 AM EST Appointment Radiology [address] [place] [id number] Seropositive rheumatoid arthritis (HCC) [M05.9] Radiology Comment on above: Seropositive rheumatoid arthritis (HCC) [M05.9] Start: 03-19-2025 Hemoglobin A1c measurement HbA1C [facility] Start: 02-28-2025 End: 02-28-2025 Patient encounter procedure 02/28/2025 2:00 PM EST Office Visit Endocrinology [address] [place] [id number] Eva Nielsen MD [address] [place] [address] diabetes 4 MTH F/U Send OV notes to ADS Endocrinology Comment on above: diabetes 4 MTH F/U Send OV notes to ADS Start: 02-21-2025 Annual PCP Team Chronic Disease Visit Annual PCP Team Chronic Disease Visit [facility] Start: 01-24-2025 End: 01-24-2025 Patient encounter procedure 01/24/2025 2:40 PM EDT Office Visit Endocrinology [address] [place] [id number] Eva Nielsen MD [address] [place] [address] diabetes 4 MTH F/U Send OV notes to ADS Endocrinology Comment on above: diabetes 4 MTH F/U Send OV notes to ADS Start: 01-24-2025 Annual PCP Team Chronic Disease Visit Annual PCP Team Chronic Disease Visit [facility] Start: 01-24-2025 BP Controlled (<130/80) BP Controlled (<130/80) [facility] in Start: 01-17-2025 Computed tomography of abdomen and pelvis with contrast Abdomen/Pelvis WITH Contrast [facility] Start: 01-17-2025 Patient encounter procedure Registered Clinical -Cat Scan [facility] Work Phone: Start: 01-17-2025 Following clinical pathway protocol [facility] Start: 01-12-2025 Annual PCP Team Chronic Disease Visit Annual PCP Team Chronic Disease Visit [facility] Start: 01-12-2025 Covid-19 Vaccine ( season) Covid-19 Vaccine ( season) [facility] Comment on above: Postponed from 12/20/2023 (Declined at t his time) Start: 12-23-2024 Annual PCP Team Chronic Disease Visit Annual PCP Team Chronic Disease Visit [facility] Start: 12-19-2024 Influenza vaccination Influenza Vaccine (#1) [facility] Start: 12-12-2024 End: 12-12-2024 Patient encounter procedure 12/12/2024 9:00 AM EDT Office Visit Vasculary Surgery [address] [place] [address] Carotid stenosis, asymptomatic, bilateral [I65.23] [facility]cul[facility] Surgery Comment on above: Carotid stenosis, asymptomatic, bilatera l [I65.23] Start: 12-06-2024 Annual PCP Team Chronic Disease Visit Annual PCP Team Chronic Disease Visit [facility] Start: 12-06-2024 End: 12-06-2024 Patient encounter procedure 12/06/2024 9:40 AM EDT Office Visit [facility] [place] [address] [place], [place] [id number] Alcira Anderson MD [address] [place] [address] 3 month f/u Internal Medicine [place] Comment on above: 3 month f/u Start: 11-24-2024 End: 11-24-2024 Patient encounter procedure 11/24/2024 8:00 AM EDT Office Visit Vasculary Surgery [address] [place] [address] Seropositive rheumatoid arthritis (HCC) [M05.9] [facility] Surgery Comment on above: Seropositive rheumatoid arthritis (HCC) [M05.9] Start: 11-23-2024 BP Controlled (<130/80) BP Controlled (<130/80) [facility] in Start: 11-22-2024 End: 02-21-2025 CBC W Auto Differential panel - Blood COMPLETE BLOOD COUNT AND DIFFERENTIAL Lab Routine Seropositive rheumatoid arthritis (HCC) Expected: 11/22/2024 (Approximate), Expires: 02/21/2025 [facility] Work Phone: Comment on above: Expected: 11/22/2024 (Approximate), Expi res: 02/21/2025 Start: 11-20-2024 Hemoglobin A1c measurement HbA1C [facility] Start: 10-30-2024 Covid-19 Vaccine ( season) Covid-19 Vaccine () [facility] Start: 10-28-2024 Screening for malignant neoplasm of breast MAMMOGRAM SCREENING [facility] Start: 10-26-2024 End: 10-26-2024 Follow-up encounter 10/26/2024 9:30 AM EDT [facility] Rheumatology [address] [place] [address] Alberto Argueta, HAIR BOILER OPERATOR.CROP AND SOIL TECHNICIAN [address] [place] [address] Follow up - Rheumatoid Rheumatology Comment on above: Follow up - Rheumatoid Start: 10-24-2024 End: 10-24-2024 Patient encounter procedure 10/24/2024 10:00 AM EDT Office Visit Rheumatology [address] [place] [address] Alberto Argueta APRN.CROP AND SOIL TECHNICIAN [address] [place] [address] Follow up - Rheumatoid Rheumatology Comment on above: Follow up - Rheumatoid Start: 09-22-2024 End: 09-22-2024 ambulatory 09/22/2024 2:00 PM EDT [facility] Diabetic Education [facility] [address] [address] Clinton Bess, RN [address] [address] requesting a vv with savid to talk about pump Diabetic Education [facility] Comment on above: requesting a vv with savid to talk about pump Start: 09-20-2024 End: 09-20-2024 Patient encounter procedure 09/20/2024 2:40 PM EDT Office Visit Endocrinology [address] [place] [address] Eva Nielsen MD [address] [place] [address] 4 MTH F/U Endocrinology Comment on above: 4 MTH F/U Start: 09-16-2024 End: 09-16-2024 ambulatory 09/16/2024 7:30 AM EDT Results Only [place] [facility] Draw Station [address] [place] [address] [facility] Draw Station Start: 09-14-2024 BP Controlled (<130/80) BP Controlled (<130/80) [facility] Start: 09-14-2024 End: 12-14-2024 Comprehensive metabolic 2000 panel - Serum or Plasma COMPREHENSIVE METABOLIC PANEL Lab Routine 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) Expected: 09/14/2024, Expires: 12/14/2024 [facility] Comment on above: Expected: 09/14/2024, Expires: Start: 09-14-2024 End: 12-14-2024 Hemoglobin A1c in Blood HEMOGLOBIN A1C Lab Routine 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) Expected: 09/14/2024, Expires: 12/14/2024 [facility] Comment on above: Expected: 09/14/2024, Expires: Start: 09-14-2024 End: 12-14-2024 Lipid 1996 panel - Serum or Plasma LIPID PANEL BASIC Lab Routine 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) Expected: 09/14/2024, Expires: 12/14/2024 [facility] Comment on above: Expected: 09/14/2024, Expires: Start: 09-14-2024 End: 12-14-2024 Microalbumin/Creatinine [Mass Ratio] in Urine ALBUMIN/CREATININE RATIO, URINE Lab Routine 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) Expected: 09/14/2024, Expires: 12/14/2024 [facility] Work Phone: Comment on above: Expected: 09/14/2024, Expires: Start: 09-14-2024 End: 12-14-2024 Thyrotropin [Units/volume] in Serum or Plasma THYROID STIMULATING HORMONE Lab Routine 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) Expected: 09/14/2024, Expires: 12/14/2024 [facility] Comment on above: Expected: 09/14/2024, Expires: Start: 09-13-2024 End: 09-13-2024 Patient encounter procedure 09/13/2024 10:00 AM EDT Office Visit [facility] [address] [facility] [address] [place] [address] Omayra Herndon, TIM [address] [facility] [address] [place] [address] [facility] Start: 09-05-2024 End: 09-05-2024 Patient encounter procedure 09/05/2024 10:00 AM EDT Office Visit Internal Medicine [place] [address] [place] [address] Alcira Anderson MD [address] [place] [address] Medicare Wellness [facility] [place] Comment on above: Medicare Wellness Start: 08-31-2024 Hepatitis B screening Urine Albumin:Creatinine Ratio [facility] Start: 08-31-2024 Hepatitis B surface antibody level LDL Cholesterol [facility] Start: 08-18-2024 Annual PCP Team Chronic Disease Visit Annual PCP Team Chronic Disease Visit [facility] Start: 08-18-2024 Spirometry Spirometry [facility] Comment on above: Postponed from 1964 (Declined at t his time) Start: 08-16-2024 End: 07-26-2025 6-minute walk test EXERCISE-6 MIN. WALK PFT Routine Restrictive lung disease Expected: 08/16/2024, Expires: 07/26/2025 [facility] Comment on above: Expected: 08/16/2024, Expires: Start: 08-16-2024 End: 07-26-2025 CT Chest WO contrast CT CHEST WITHOUT CONTRAST Imaging Routine Restrictive lung disease Expected: 08/16/2024, Expires: 07/26/2025 [facility] Comment on above: Expected: 08/16/2024, Expires: Start: 08-16-2024 Hemoglobin A1c measurement HbA1C [facility] Start: 08-16-2024 End: 08-16-2024 Patient encounter procedure 08/16/2024 10:00 AM EDT [facility] [address] [facility] [address] [place] [address] Omayra Herndon, TIM [address] [place] [address] [facility] Start: 07-30-2024 BP Controlled (<130/80) BP Controlled (<130/80) [facility] Start: 06-25-2024 BP Controlled (<130/80) BP Controlled (<130/80) [facility] Start: 06-12-2024 BP Controlled (<130/80) BP Controlled (<130/80) [facility] Start: 06-06-2024 End: 06-06-2024 Patient encounter procedure 06/06/2024 7:20 AM EST Office Visit [facility] [place] [address] [place] [address] Hernesto Harvey APRN.CROP AND SOIL TECHNICIAN [address] [place] [address] [facility] [place] Comment on above: [facility] Start: 05-30-2024 End: 05-30-2024 Patient encounter procedure Rheumatology Comment on above: Follow up - Rheumatoid Start: 05-23-2024 End: 05-23-2024 Patient encounter procedure 05/23/2024 2:40 PM EST Office Visit Endocrinology [address] [address] Eva Nielsen MD [address] [place] [address] 3 month f/u Endocrinology Comment on above: 3 month f/u Start: 05-18-2024 Annual PCP Team Chronic Disease Visit Annual PCP Team Chronic Disease Visit [facility] Start: 05-18-2024 BP Controlled (<130/80) BP Controlled (<130/80) [facility] Start: 05-16-2024 End: 05-16-2024 ambulatory Endocrinology Comment on above: VV 3 MTH F/U DIETITIAN 3 MTH F/U DIETITIAN Start: 04-20-2024 Advance Directive Discussion Advance Directive Discussion [facility] Start: 03-24-2024 Glaucoma screening Dilated Retinal Exam [facility] Start: 03-17-2024 Screening for osteoporosis DEXA SCAN DISCUSSION [facility] Start: 03-03-2024 Hemoglobin A1c measurement HbA1C [facility] Start: 03-01-2024 End: 03-01-2024 Patient encounter procedure 03/01/2024 11:40 AM EST Office Visit [facility] [address] [facility] 1st [place] [phone] Ivan Pal MD [address] [facility] [place] [address] Gloria Rick Start: 02-22-2024 End: 02-22-2024 Follow-up encounter 02/22/2024 9:40 AM EST [facility] Internal Medicine [place] [address] [place], [place] [address] Alcira Anderson MD [address] [place], [place] [address] 6 month follow up [facility] [place] Comment on above: 6 month follow up Start: 02-22-2024 End: 02-22-2024 Patient encounter procedure 02/22/2024 9:40 AM EST Office Visit [facility] [place] [address] [place], [place] [address] Alcira Anderson MD [address] [place], [place] [id number] 6 month follow up Internal Medicine [place] Comment on above: 6 month follow up Start: 02-16-2024 End: 05-17-2024 Hemoglobin A1c in Blood HEMOGLOBIN A1C Lab Routine 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) Gastroparesis due to secondary diabetes (HCC) Type 1 diabetes mellitus with polyneuropathy (HCC) Expected: 02/16/2024, Expires: 05/17/2024 [facility] Work Phone: Comment on above: Expected: 02/16/2024, Expires: Start: 02-16-2024 End: 02-16-2024 Patient encounter procedure 02/16/2024 11:40 AM EDT Office Visit Endocrinology [address] [place], [place] [phone] Eva Nielsen MD [address] [place], [place] [id number] type 1 dm Endocrinology Comment on above: type 1 dm Start: 02-15-2024 End: 02-15-2024 ambulatory 02/15/2024 3:00 PM EDT Education Endocrinology [address] [address] Akil Rivera, RD [address] [address] Type 1 diabetes mellitus with mild nonproliferative retinopathy of both eyes wit... Endocrinology Comment on above: Type 1 diabetes mellitus with mild nonpr oliferative retinopathy of both eyes wit... Start: 02-13-2024 End: 08-24-2024 6-minute walk test EXERCISE-6 MIN. WALK PFT Routine Pulmonary fibrosis Expected: 02/13/2024 (Approximate), Expires: 08/24/2024 [facility] Comment on above: Expected: 02/13/2024 (Approximate), Expi res: 08/24/2024 Start: 02-13-2024 End: 08-24-2024 PFT COMPLETE PFT COMPLETE PFT Routine Pulmonary fibrosis Expected: 02/13/2024, Expires: 08/24/2024 [facility] Comment on above: Expected: 02/13/2024, Expires: Start: 02-08-2024 End: 02-08-2024 Patient encounter procedure Endocrinology Comment on above: 3 MTH F/U type 1 dm Start: 02-01-2024 Diabetic foot examination Diabetic Foot Exam [facility] Comment on above: Postponed from 10/02/2021 (Declined at t his time) Start: 01-29-2024 End: 12-27-2024 Alanine aminotransferase [Enzymatic activity/volume] in Serum or Plasma ALANINE AMINOTRANSFERASE / SGPT Lab Routine Seropositive rheumatoid arthritis (HCC) Long-term use of Plaquenil Expected: 01/29/2024 (Approximate), Expires: 12/27/2024 [facility] Comment on above: Expected: 01/29/2024 (Approximate), Expi res: 12/27/2024 Start: 01-29-2024 End: 12-27-2024 Albumin [Mass/volume] in Serum or Plasma ALBUMIN Lab Routine Seropositive rheumatoid arthritis (HCC) Long-term use of Plaquenil Expected: 01/29/2024 (Approximate), Expires: 12/27/2024 [facility] Comment on above: Expected: 01/29/2024 (Approximate), Expi res: 12/27/2024 Start: 01-29-2024 End: 12-27-2024 Aspartate aminotransferase [Enzymatic activity/volume] in Serum or Plasma ASPARTATE AMINOTRANSFERASE/SGOT Lab Routine Seropositive rheumatoid arthritis (HCC) Long-term use of Plaquenil Expected: 01/29/2024 (Approximate), Expires: 12/27/2024 [facility] Comment on above: Expected: 01/29/2024 (Approximate), Expi res: 12/27/2024 Start: 01-29-2024 End: 12-27-2024 CBC W Auto Differential panel - Blood COMPLETE BLOOD COUNT AND DIFFERENTIAL Lab Routine Seropositive rheumatoid arthritis (HCC) Long-term use of Plaquenil Expected: 01/29/2024 (Approximate), Expires: 12/27/2024 [facility] Work Phone: Comment on above: Expected: 01/29/2024 (Approximate), Expi res: 12/27/2024 Start: 01-29-2024 End: 12-27-2024 CREATININE BLD CREATININE BLD Lab Routine Seropositive rheumatoid arthritis (HCC) Long-term use of Plaquenil Expected: 01/29/2024 (Approximate), Expires: 12/27/2024 [facility] Comment on above: Expected: 01/29/2024 (Approximate), Expi res: 12/27/2024 Start: 01-13-2024 End: 01-13-2024 ambulatory 01/13/2024 8:40 AM EDT [facility] [place] [address] [place] [address] Hernesto Harvey APRN.CROP AND SOIL TECHNICIAN [address] [place] [address] Covid +. Wants to discuss OTC treatments and vitamins that she can take. TE 01/11 [facility] [place] Comment on above: Covid +. Wants to discuss OTC treatments and vitamins that she can take. TE 01/11 Start: 01-10-2024 Covid-19 Vaccine () Covid-19 Vaccine () [facility] Comment on above: Postponed from 12/19/2022 (Declined at t his time) Start: 01-10-2024 Covid-19 Vaccine (6 - Pfizer series) Covid-19 Vaccine (6 - Pfizer series) [facility] Comment on above: Postponed from 05/05/2022 (Declined at t his time) Start: 01-10-2024 Hepatitis B Vaccine (1 of 3 - Risk 3-dose series) Hepatitis B Vaccine (1 of 3 - Risk 3-dose series) [facility] Comment on above: Postponed from 2006 (Declined at t his time) Start: 01-10-2024 Hepatitis B Vaccine (2 of 3 - Risk 3-dose series) Hepatitis B Vaccine (2 of 3 - Risk 3-dose series) [facility] Comment on above: Postponed from 08/27/2021 (Declined at t his time) Start: 01-06-2024 Annual PCP Team Chronic Disease Visit Annual PCP Team Chronic Disease Visit [facility] Start: 01-06-2024 BP Controlled (<130/80) BP Controlled (<130/80) [facility] Start: 12-30-2023 End: 12-30-2023 Follow-up encounter 12/30/2023 12:00 PM EDT [facility] Rheumatology [address] [place] [phone] Alberto Argueta, HAIR BOILER OPERATOR.CROP AND SOIL TECHNICIAN [address] [place] [address] ra follow up Rheumatology Comment on above: ra follow up Start: 12-28-2023 End: 12-28-2023 Patient encounter procedure 12/28/2023 10:00 AM EDT Office Visit Rheumatology [address] [place] [address] Alberto Argueta, HAIR BOILER OPERATOR.CROP AND SOIL TECHNICIAN [address] [place] [address] Follow up - Rheumatoid Rheumatology Comment on above: Follow up - Rheumatoid Start: 12-24-2023 End: 12-24-2023 Patient encounter procedure 12/24/2023 1:40 PM EDT Office Visit Internal Medicine [place] [address] [place] [address] Hernesto Harvey HAIR BOILER OPERATOR.CROP AND SOIL TECHNICIAN [address] [place], [place] [id number] 2-4 weeks [facility] [place] Comment on above: 2-4 weeks Start: 12-20-2023 Covid-19 Vaccine () Covid-19 Vaccine () [facility] Start: 12-20-2023 Covid-19 Vaccine () Covid-19 Vaccine () [facility] Start: 12-20-2023 Influenza vaccination Influenza Vaccine (#1) [facility] Start: 12-15-2023 End: 12-15-2023 Nursing evaluation of patient and report 12/15/2023 2:00 PM EDT Nurse Visit Endocrinology [address] [place] [address] Clinton Bess, RN [address] [address] Type 1 diabetes mellitus with mild nonproliferative retinopathy of both eyes wit... Endocrinology Comment on above: Type 1 diabetes mellitus with mild nonpr oliferative retinopathy of both eyes wit... Start: 12-05-2023 Potassium [Moles/volume] in Serum or Plasma POTASSIUM [facility] Start: 11-25-2023 ANNUAL PCP TEAM CHRONIC DISEASE VISIT ANNUAL PCP TEAM CHRONIC DISEASE VISIT [facility] Start: 11-24-2023 End: 11-24-2023 Patient encounter procedure 11/24/2023 11:30 AM EDT Office Visit [facility] [address] [place], [place] [id number] Manuela Thomas, HAIR BOILER OPERATOR.CROP AND SOIL TECHNICIAN [address] [facility] [address] [place], [place] [id number] Annual F/UP for Bilateral carotid artery stenosis with US CAROTID BILAT 11/12/2023 *LM* [facility] Comment on above: Annual F/UP for Bilateral carotid artery stenosis with US CAROTID BILAT 11/12/2023 *LM* Start: 11-12-2023 End: 11-12-2023 Patient encounter procedure 11/12/2023 10:00 AM EDT Office Visit Vasculary Surgery [address] [place] [address] Carotid stenosis, asymptomatic, bilateral [I65.23] [facility] Comment on above: Carotid stenosis, asymptomatic, bilatera l [I65.23] Start: 11-11-2023 Colonoscopy COLONOSCOPY [facility] Start: 11-11-2023 COLORECTAL CANCER SCREENING COLORECTAL CANCER SCREENING [facility] Start: 11-06-2023 End: 11-06-2023 Patient encounter procedure Endocrinology Comment on above: 2 MTH F/U 2 MTH F/U - told to come at 11am; needs scheduled for 60 min appts EVERY time Start: 11-02-2023 End: 11-02-2023 Patient encounter procedure 11/02/2023 9:40 AM EDT Office Visit Endocrinology [address] [place] [address] Eva Nielsen MD [address] [place] [address] Follow up - Rheumatoid Endocrinology Comment on above: Follow up - Rheumatoid Start: 10-29-2023 End: 10-29-2023 Patient encounter procedure Mammogram Comment on above: Juliette screening Juliette screening did pu t in phone note to release order 10/25 Start: 10-15-2023 End: 10-15-2023 Patient encounter procedure 10/15/2023 10:45 AM EDT Appointment Radiology [address] [place] [address] Carotid stenosis, asymptomatic, bilateral [I65.23] Radiology Comment on above: Carotid stenosis, asymptomatic, bilatera l [I65.23] Start: 10-02-2023 ANNUAL PCP TEAM CHRONIC DISEASE VISIT ANNUAL PCP TEAM CHRONIC DISEASE VISIT [facility] Start: 09-15-2023 End: 09-15-2023 Patient encounter procedure 09/15/2023 4:40 PM EDT Office Visit Endocrinology [address] [place] [address] Eva Nielsen MD [address] [place], [place] [address] Type 1 diabetes mellitus with mild nonproliferative retinopathy of both eyes wit... Endocrinology Comment on above: Type 1 diabetes mellitus with mild nonpr oliferative retinopathy of both eyes wit... 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) [E10.3293] Nutrition Therapy Comment on above: 4 week follow up: Type 1 diabetes mell us with mild nonproliferative retinopathy of both eyes without macular edema (HCC) [E10.3293] Start: 08-27-2023 Covid-19 Vaccine ( season) Covid-19 Vaccine () [facility] Start: 08-25-2023 End: 08-25-2023 Patient encounter procedure 08/25/2023 10:40 AM EDT Office Visit [facility] [address] [address] Ivan Pal MD [address] [place] [address] [facility] Start: 08-20-2023 End: 08-20-2023 Patient encounter procedure 08/20/2023 1:00 PM EDT Appointment Radiology [address] [address] Patellar tendon strain, right, initial encounter [S86.811A] Radiology Comment on above: Patellar tendon strain, right, initial e ncounter [S86.811A] Start: 08-19-2023 End: 08-19-2023 Patient encounter procedure 08/19/2023 12:20 PM EDT Office Visit [facility] [address] [place] [address] Hernesto Harvey APRN.CROP AND SOIL TECHNICIAN [address] [place] [address] 3 month follow up [facility] [place] Comment on above: 3 month follow up Start: 08-10-2023 End: 08-10-2023 Patient encounter procedure 08/10/2023 10:00 AM EDT Office Visit [facility] Rheumatology [address] [place] [address] Clinton Farrar Jr., DO [address] [place] [id number] [facility]ology Start: 08-05-2023 ANNUAL PCP TEAM CHRONIC DISEASE VISIT ANNUAL PCP TEAM CHRONIC DISEASE VISIT [facility] Start: 07-26-2023 Glaucoma screening Dilated Retinal Exam [facility] Start: 07-26-2023 Hepatitis C antibody, confirmatory test DILATED RETINAL EXAM [facility] Start: 07-22-2023 ANNUAL PCP TEAM CHRONIC DISEASE VISIT ANNUAL PCP TEAM CHRONIC DISEASE VISIT [facility] Start: 07-21-2023 End: 02-03-2024 C-reactive protein C REACTIVE PROTEIN Lab Routine Rheumatoid arthritis of multiple sites with negative rheumatoid factor History of rheumatoid arthritis 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 penitentiary current use of non-steroidal anti-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 (NSAID) penitentiary current use of systemic steroids Long-term use of high-risk medication Long-term use of Plaquenil On statin therapy Fatty liver Hyperchloremia Hyperglycemia Lumbar degenerative disc disease Osteoarthritis of cervical spine, unspecified spinal osteoarthritis complication status Osteoarthritis of both hands, unspecified osteoarthritis type Osteoarthritis of both wrists, unspecified osteoarthritis type Rotator cuff arthropathy of both shoulders Thoracic degenerative disc disease Expected: 07/21/2023 (Approximate), Expires: 02/03/2024 [facility] Comment on above: Expected: 07/21/2023 (Approximate), Expi res: 02/03/2024 Start: 07-21-2023 End: 02-03-2024 Complete blood count with white cell differential, automated CBC, EDIF, PLATELET Lab Routine Rheumatoid arthritis of multiple sites with negative rheumatoid factor History of rheumatoid arthritis 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 of non-steroidal anti-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 (NSAID) penitentiary current use of systemic steroids Long-term use of high-risk medication Long-term use of Plaquenil On statin therapy Fatty liver Hyperchloremia Hyperglycemia Lumbar degenerative disc disease Osteoarthritis of cervical spine, unspecified spinal osteoarthritis complication status Osteoarthritis of both hands, unspecified osteoarthritis type Osteoarthritis of both wrists, unspecified osteoarthritis type Rotator cuff arthropathy of both shoulders Thoracic degenerative disc disease Expected: 07/21/2023 (Approximate), Expires: 02/03/2024 [facility] Comment on above: Expected: 07/21/2023 (Approximate), Expi res: 02/03/2024 Start: 07-21-2023 End: 02-03-2024 Comprehensive metabolic 2000 panel - Serum or Plasma COMPREHENSIVE METABOLIC PANEL Lab Routine Rheumatoid arthritis of multiple sites with negative rheumatoid factor History of rheumatoid arthritis 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 of non-steroidal anti-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 (NSAID) penitentiary current use of systemic steroids Long-term use of high-risk medication Long-term use of Plaquenil On statin therapy Fatty liver Hyperchloremia Hyperglycemia Lumbar degenerative disc disease Osteoarthritis of cervical spine, unspecified spinal osteoarthritis complication status Osteoarthritis of both hands, unspecified osteoarthritis type Osteoarthritis of both wrists, unspecified osteoarthritis type Rotator cuff arthropathy of both shoulders Thoracic degenerative disc disease Expected: 07/21/2023 (Approximate), Expires: 02/03/2024 [facility] Comment on above: Expected: 07/21/2023 (Approximate), Expi res: 02/03/2024 Start: 07-21-2023 End: 02-03-2024 SEDIMENTATION RATE, AUTOMATED SEDIMENTATION RATE, AUTOMATED Lab Routine Rheumatoid arthritis of multiple sites with negative rheumatoid factor History of rheumatoid arthritis 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 penitentiary current use of non-steroidal anti-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 (NSAID) 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 of systemic steroids Long-term use of high-risk medication Long-term use of Plaquenil On statin therapy Fatty liver Hyperchloremia Hyperglycemia Lumbar degenerative disc disease Osteoarthritis of cervical spine, unspecified spinal osteoarthritis complication status Osteoarthritis of both hands, unspecified osteoarthritis type Osteoarthritis of both wrists, unspecified osteoarthritis type Rotator cuff arthropathy of both shoulders Thoracic degenerative disc disease Expected: 07/21/2023 (Approximate), Expires: 02/03/2024 [facility] Comment on above: Expected: 07/21/2023 (Approximate), Expi res: 02/03/2024 Start: 07-18-2023 ANNUAL PCP TEAM CHRONIC DISEASE VISIT ANNUAL PCP TEAM CHRONIC DISEASE VISIT [facility] Start: 07-13-2023 End: 07-13-2023 Patient encounter procedure 07/13/2023 2:20 PM EDT Office Visit [facility] Pulmonary Disease [facility] [address] [place] [address] Ivan Pal MD [address] [place], [place] [id number] [facility] Pulmonary Disease [facility] Start: 06-29-2023 Hemoglobin A1c measurement HbA1C [facility] Start: 06-29-2023 Hemoglobin A1c/Hemoglobin.total in Blood HbA1C [facility] Start: 06-12-2023 End: 09-11-2023 Comprehensive metabolic 2000 panel - Serum or Plasma COMP METABOLIC PANEL Lab Routine 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) Expected: 06/12/2023, Expires: 09/11/2023 [facility] Work Phone: Comment on above: Expected: 06/12/2023, Expires: Start: 06-12-2023 End: 09-11-2023 Hemoglobin A1c in Blood HGB A1C Lab Routine 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) Expected: 06/12/2023, Expires: 09/11/2023 [facility] Work Phone: Comment on above: Expected: 06/12/2023, Expires: Start: 06-12-2023 Hepatitis B screening URINE ALBUMIN:CREATININE RATIO [facility] Start: 06-12-2023 Hepatitis B surface antibody level LDL CHOLESTEROL [facility] Start: 06-12-2023 End: 09-11-2023 Lipid 1996 panel - Serum or Plasma LIPID PANEL BASIC Lab Routine 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 WALK PFT Routine Restrictive lung disease Pulmonary fibrosis Uncomplicated asthma, unspecified asthma severity, unspecified whether persistent Expected: 06/06/2023 (Approximate), Expires: 01/09/2024 [facility] Comment on above: Expected: 06/06/2023 (Approximate), Expi res: 01/09/2024 Start: 06-06-2023 End: 01-09-2024 NOVEL CORONAVIRUS LAB 1 - NASOPHARYNGEAL NOVEL CORONAVIRUS LAB 1 - NASOPHARYNGEAL Microbiology STAT Screening for viral disease Expected: 06/06/2023 (Approximate), Expires: 01/09/2024 [facility] Comment on above: Expected: 06/06/2023 (Approximate), Expi res: 01/09/2024 Start: 06-06-2023 End: 01-09-2024 PFT COMPLETE PFT COMPLETE PFT Routine Restrictive lung disease Pulmonary fibrosis Uncomplicated asthma, unspecified asthma severity, unspecified whether persistent Expected: 06/06/2023, Expires: 01/09/2024 [facility] Comment on above: Expected: 06/06/2023, Expires: 4 Start: 05-23-2023 [facility] Start: 04-20-2023 Advance Directive Discussion Advance Directive Discussion [facility] Start: 04-08-2023 Colonoscopy w/biopsy single/multiple COLONOSCOPY AND BIOPSY [facility] Start: 04-08-2023 Colsc flx w/rmvl of tumor polyp lesion snare tq COLONOSCOPY W/LESION REMOVAL [facility] Start: 04-08-2023 Patient discharge [facility] Start: 02-23-2023 End: 05-25-2023 25-hydroxyvitamin D3 [Mass/volume] in Serum or Plasma VITAMIN D 25 HYDROXY Lab Routine Osteopenia of right hip Expected: 02/23/2023, Expires: 05/25/2023 [facility] Work Phone: Comment on above: Expected: 02/23/2023, Expires: 4 Start: 02-02-2023 End: 02-02-2023 Patient encounter procedure 02/02/2023 10:00 AM EDT Office Visit [facility] Rheumatology [address] [place] [id number] Leni Magallanes, Clinton Carmichael, DO [address] [place] [id number] [facility] Start: 01-13-2023 End: 09-30-2023 C-reactive protein C REACTIVE PROTEIN Lab Routine NSIP (nonspecific interstitial pneumonitis) Fatty liver Hyperglycemia Metabolic acidosis Lumbar degenerative disc disease Osteoarthritis of cervical spine, unspecified spinal osteoarthritis complication status Osteoarthritis of both hands, unspecified osteoarthritis type Osteoarthritis of both wrists, unspecified osteoarthritis type Rotator cuff arthropathy of both shoulders Thoracic degenerative disc disease Positive D dimer History of rheumatoid arthritis History of stroke 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-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 (NSAID) Long-term use of high-risk medication Long-term use of Plaquenil On statin therapy Expected: 01/13/2023, Expires: 09/30/2023 [facility] Comment on above: Expected: 01/13/2023, Expires: 4 Start: 01-13-2023 End: 09-30-2023 Complete blood count with white cell differential, automated CBC, EDIF, PLATELET Lab Routine NSIP (nonspecific interstitial pneumonitis) Fatty liver Hyperglycemia Metabolic acidosis Lumbar degenerative disc disease Osteoarthritis of cervical spine, unspecified spinal osteoarthritis complication status Osteoarthritis of both hands, unspecified osteoarthritis type Osteoarthritis of both wrists, unspecified osteoarthritis type Rotator cuff arthropathy of both shoulders Thoracic degenerative disc disease Positive D dimer History of rheumatoid arthritis 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 of non-steroidal anti-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 (NSAID) Long-term use of high-risk medication Long-term use of Plaquenil On statin therapy Expected: 01/13/2023, Expires: 09/30/2023 [facility] Comment on above: Expected: 01/13/2023, Expires: Start: 01-13-2023 End: 09-30-2023 Comprehensive metabolic 2000 panel - Serum or Plasma COMPREHENSIVE METABOLIC PANEL Lab Routine NSIP (nonspecific interstitial pneumonitis) Fatty liver Hyperglycemia Metabolic acidosis Lumbar degenerative disc disease Osteoarthritis of cervical spine, unspecified spinal osteoarthritis complication status Osteoarthritis of both hands, unspecified osteoarthritis type Osteoarthritis of both wrists, unspecified osteoarthritis type Rotator cuff arthropathy of both shoulders Thoracic degenerative disc disease Positive D dimer History of rheumatoid arthritis 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 penitentiary current use of non-steroidal anti-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 (NSAID) Long-term use of high-risk medication Long-term use of Plaquenil On statin therapy Expected: 01/13/2023, Expires: 09/30/2023 [facility] Comment on above: Expected: 01/13/2023, Expires: 4 Start: 01-13-2023 End: 09-30-2023 SEDIMENTATION RATE, AUTOMATED SEDIMENTATION RATE, AUTOMATED Lab Routine NSIP (nonspecific interstitial pneumonitis) Fatty liver Hyperglycemia Metabolic acidosis Lumbar degenerative disc disease Osteoarthritis of cervical spine, unspecified spinal osteoarthritis complication status Osteoarthritis of both hands, unspecified osteoarthritis type Osteoarthritis of both wrists, unspecified osteoarthritis type Rotator cuff arthropathy of both shoulders Thoracic degenerative disc disease Positive D dimer History of rheumatoid arthritis History of stroke 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-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 (NSAID) Long-term use of high-risk medication Long-term use of Plaquenil On statin therapy Expected: 01/13/2023, Expires: 09/30/2023 [facility] Comment on above: Expected: 01/13/2023, Expires: 4 Start: 01-08-2023 End: 01-08-2023 Patient encounter procedure 01/08/2023 1:40 PM EDT Office Visit [facility] [place] [address] [facility] [address] [place] [address] Ivan Pal MD [address] [place] [address] [facility] Start: 12-19-2022 COVID-19 VACCINE ( season) COVID-19 VACCINE ( season) [facility] Start: 12-19-2022 Influenza vaccination [facility] Start: 12-07-2022 Hemoglobin A1c/Hemoglobin.total in Blood HBA1C [facility] Start: 11-24-2022 End: 01-24-2023 CBC W Auto Differential panel - Blood CBC + DIFF Lab Routine Rheumatoid arthritis, involving unspecified site, unspecified whether rheumatoid factor present (HCC) 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) Expected: 11/24/2022, Expires: 01/24/2023 [facility] Work Phone: Comment on above: Expected: 11/24/2022, Expires: 3 Start: 11-24-2022 End: 01-24-2023 Comprehensive metabolic 2000 panel - Serum or Plasma COMP METABOLIC PANEL Lab Routine Rheumatoid arthritis, involving unspecified site, unspecified whether rheumatoid factor present (HCC) 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) Expected: 11/24/2022, Expires: 01/24/2023 [facility] Work Phone: Comment on above: Expected: 11/24/2022, Expires: 3 Start: 11-24-2022 End: 01-24-2023 Hemoglobin A1c in Blood HGB A1C Lab Routine 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 WALK PFT Routine NSIP (nonspecific interstitial pneumonitis) Interstitial lung disease Expected: 11/12/2022, Expires: 11[facility]13[facility]23 [facility] Comment on above: Expected: 11/12/2022, Expires: Start: 11-12-2022 End: 11-13-2023 ALLERGEN PROFILE, MOLD ALLERGEN PROFILE, MOLD Lab Routine Interstitial lung disease Reactive airway disease without complication, unspecified asthma severity, unspecified whether persistent Expected: 11/12/2022, Expires: 11/13/2023 [facility] Comment on above: Expected: 11/12/2022, Expires: Start: 11-12-2022 End: 11-13-2023 ALPHA 1 ANTITRYPSIN ALPHA 1 ANTITRYPSIN Lab Routine Interstitial lung disease Expected: 11/12/2022, Expires: 11/13/2023 [facility] Comment on above: Expected: 11/12/2022, Expires: Start: 11-12-2022 End: 11-13-2023 SUSI MULTIPLEX SCRN WITH REFLEX SUSI MULTIPLEX SCRN WITH REFLEX Lab Routine NSIP (nonspecific interstitial pneumonitis) Interstitial lung disease Expected: 11/12/2022, Expires: 11/13/2023 [facility] Comment on above: Expected: 11/12/2022, Expires: Start: 11-12-2022 End: 11-13-2023 ANCA INIT SCRN (ANCA, PR3AB, MPO) ANCA INIT SCRN (ANCA, PR3AB, MPO) Lab Routine NSIP (nonspecific interstitial pneumonitis) Interstitial lung disease Expected: 11/12/2022, Expires: 11/13/2023 [facility] Comment on above: Expected: 11/12/2022, Expires: Start: 11-12-2022 End: 11-13-2023 Angiotensin converting enzyme [Enzymatic activity/volume] in Serum or Plasma ANGIOTENSIN CONVERTING ENZYME Lab Routine NSIP (nonspecific interstitial pneumonitis) Interstitial lung disease Expected: 11/12/2022, Expires: 11/13/2023 [facility] Comment on above: Expected: 11/12/2022, Expires: Start: 11-12-2022 End: 11-13-2023 ANTI-SCLERODERMA AB (SCL70) ANTI-SCLERODERMA AB (SCL70) Lab Routine NSIP (nonspecific interstitial pneumonitis) Interstitial lung disease Expected: 11/12/2022, Expires: 11/13/2023 [facility] Comment on above: Expected: 11/12/2022, Expires: Start: 11-12-2022 End: 11-13-2023 C-reactive protein C REACTIVE PROTEIN Lab Routine NSIP (nonspecific interstitial pneumonitis) Interstitial lung disease Expected: 11/12/2022, Expires: 11/13/2023 [facility] Comment on above: Expected: 11/12/2022, Expires: Start: 11-12-2022 End: 11-13-2023 CK CK Lab Routine NSIP (nonspecific interstitial pneumonitis) Interstitial lung disease Expected: 11/12/2022, Expires: 11/13/2023 [facility] Comment on above: Expected: 11/12/2022, Expires: Start: 11-12-2022 End: 11-13-2023 Complete blood count with white cell differential, automated CBC, EDIF, PLATELET Lab Routine NSIP (nonspecific interstitial pneumonitis) Interstitial lung disease Expected: 11/12/2022, Expires: 11/13/2023 [facility] Comment on above: Expected: 11/12/2022, Expires: Start: 11-12-2022 End: 11-13-2023 Comprehensive metabolic 2000 panel - Serum or Plasma COMPREHENSIVE METABOLIC PANEL Lab Routine NSIP (nonspecific interstitial pneumonitis) Interstitial lung disease Expected: 11/12/2022, Expires: 11/13/2023 [facility] Comment on above: Expected: 11/12/2022, Expires: Start: 11-12-2022 End: 11-13-2023 CT Chest WO contrast CT CHEST WITHOUT CONTRAST Imaging Routine NSIP (nonspecific interstitial pneumonitis) Interstitial lung disease Expected: 11/12/2022 (Approximate), Expires: 11/13/2023 [facility] Comment on above: Expected: 11/12/2022 (Approximate), Expi res: 11/13/2023 Start: 11-12-2022 End: 11-13-2023 CYCLIC CITRULLINATE PEPTIDE AB CYCLIC CITRULLINATE PEPTIDE AB Lab Routine NSIP (nonspecific interstitial pneumonitis) Interstitial lung disease Expected: 11/12/2022, Expires: 11/13/2023 [facility] Comment on above: Expected: 11/12/2022, Expires: Start: 11-12-2022 End: 11-13-2023 Echocardiography ECHOCARDIOGRAM Echocardiography Routine Secondary pulmonary arterial hypertension Expected: 11/12/2022 (Approximate), Expires: 11/13/2023 [facility] Comment on above: Expected: 11/12/2022 (Approximate), Expi res: 11/13/2023 Start: 11-12-2022 End: 11-13-2023 IMMUNOGLOBULIN IGE IMMUNOGLOBULIN IGE Lab Routine Interstitial lung disease Reactive airway disease without complication, unspecified asthma severity, unspecified whether persistent Expected: 11/12/2022, Expires: 11/13/2023 [facility] Comment on above: Expected: 11/12/2022, Expires: Start: 11-12-2022 End: 11-13-2023 MINI-PANEL ALLERGEN PROFILE MINI-PANEL ALLERGEN PROFILE Lab Routine Interstitial lung disease Reactive airway disease without complication, unspecified asthma severity, unspecified whether persistent Expected: 11/12/2022, Expires: 11/13/2023 [facility] Comment on above: Expected: 11/12/2022, Expires: Start: 11-12-2022 End: 11-13-2023 NOVEL CORONAVIRUS LAB 1 - NASOPHARYNGEAL NOVEL CORONAVIRUS LAB 1 - NASOPHARYNGEAL Microbiology STAT Interstitial lung disease Screening for viral disease Expected: 11/12/2022 (Approximate), Expires: 11/13/2023 [facility] Comment on above: Expected: 11/12/2022 (Approximate), Expi res: 11/13/2023 Start: 11-12-2022 End: 11-13-2023 RHEUMATOID FACTOR RHEUMATOID FACTOR Lab Routine NSIP (nonspecific interstitial pneumonitis) Interstitial lung disease Expected: 11/12/2022, Expires: 11/13/2023 [facility] Comment on above: Expected: 11/12/2022, Expires: 4 Start: 11-12-2022 End: 11-13-2023 SEDIMENTATION RATE, AUTOMATED SEDIMENTATION RATE, AUTOMATED Lab Routine NSIP (nonspecific interstitial pneumonitis) Interstitial lung disease Expected: 11/12/2022, Expires: 11/13/2023 [facility] Comment on above: Expected: 11/12/2022, Expires: 4 Start: 11-12-2022 End: 11-13-2023 SJOGREN'S AB SSA,SSB SJOGREN'S AB SSA,SSB Lab Routine NSIP (nonspecific interstitial pneumonitis) Interstitial lung disease Expected: 11/12/2022, Expires: 11/13/2023 [facility] Comment on above: Expected: 11/12/2022, Expires: 4 Start: 11-05-2022 BP CONTROLLED (<130/80) BP CONTROLLED (<130/80) [facility] Start: 11-05-2022 End: 11-05-2022 US CAROTID ARTERIES [facility] US CAROTID ARTERIES [facility] Vascular Lab Routine Bilateral carotid artery stenosis Expected: 11/05/2022, Expires: 11/05/2022 [facility] Work Phone: Comment on above: Expected: 11/05/2022, Expires: 3 Start: 10-25-2022 Hepatitis C antibody, confirmatory test DILATED RETINAL EXAM [facility] Start: 10-24-2022 ANNUAL PCP TEAM CHRONIC DISEASE VISIT ANNUAL PCP TEAM CHRONIC DISEASE VISIT [facility] Start: 09-26-2022 ANNUAL PCP TEAM CHRONIC DISEASE VISIT ANNUAL PCP TEAM CHRONIC DISEASE VISIT [facility] Start: 08-24-2022 End: 08-24-2023 Radiologic exam chest 2 views XR CHEST 2V FRONTAL/LAT Radiology Routine Pneumonia of both lungs due to infectious organism, unspecified part of lung Expected: 08/24/2022 (Approximate), Expires: 08/24/2023 [facility] Work Phone: Comment on above: Expected: 08/24/2022 (Approximate), Expi res: 08/24/2023 Start: 08-04-2022 End: 10-04-2022 Basic metabolic 2000 panel - Serum or Plasma [facility] Work Phone: Comment on above: Expected: 08/04/2022, Expires: 3 Start: 08-04-2022 End: 10-04-2022 Natriuretic peptide.B prohormone N-Terminal [Mass/volume] in Serum or Plasma [facility] Work Phone: Comment on above: Expected: 08/04/2022, Expires: 3 Start: 06-10-2022 ANNUAL PCP TEAM CHRONIC DISEASE VISIT ANNUAL PCP TEAM CHRONIC DISEASE VISIT [facility] Start: 06-09-2022 End: 08-09-2022 ALBUMIN/CREAT RATIO RND UR ALBUMIN/CREAT RATIO RND UR Lab Routine Type 1 diabetes mellitus with diabetic neuropathy (HCC) Expected: 06/09/2022, Expires: 08/09/2022 [facility] Work Phone: Comment on above: Expected: 06/09/2022, Expires: 3 Start: 06-09-2022 End: 08-09-2022 CBC W Auto Differential panel - Blood CBC + DIFF Lab Routine Essential hypertension Type 1 diabetes mellitus with diabetic neuropathy (HCC) Expected: 06/09/2022, Expires: 08/09/2022 [facility] Work Phone: Comment on above: Expected: 06/09/2022, Expires: 3 Start: 06-09-2022 End: 08-09-2022 Comprehensive metabolic 2000 panel - Serum or Plasma COMP METABOLIC PANEL Lab Routine Essential hypertension Type 1 diabetes mellitus with diabetic neuropathy (HCC) Expected: 06/09/2022, Expires: 08/09/2022 [facility] Work Phone: Comment on above: Expected: 06/09/2022, Expires: 3 Start: 06-09-2022 End: 08-09-2022 Lipid 1996 panel - Serum or Plasma LIPID PANEL BASIC Lab Routine Mixed hyperlipidemia Expected: 06/09/2022, Expires: 08/09/2022 [facility] Work Phone: Comment on above: Expected: 06/09/2022, Expires: 3 Start: 05-07-2022 Hepatitis B screening URINE ALBUMIN:CREATININE RATIO [facility] Start: 05-07-2022 Hepatitis B surface antibody level LDL CHOLESTEROL [facility] Start: 05-05-2022 COVID-19 VACCINE (6 - Pfizer series) COVID-19 VACCINE (6 - Pfizer series) [facility] Start: 05-03-2022 Hemoglobin A1c/Hemoglobin.total in Blood HBA1C [facility] Start: 04-20-2022 ADVANCE DIRECTIVE DISCUSSION ADVANCE DIRECTIVE DISCUSSION [facility] Start: 01-22-2022 End: 03-24-2022 Bacteria identified in Urine by Culture URINE CULTURE Microbiology Routine Urinary tract infection without hematuria, site unspecified Expected: 01/22/2022, Expires: 03/24/2022 [facility] Work Phone: Comment on above: Expected: 01/22/2022, Expires: 2 Start: 01-22-2022 End: 03-24-2022 Urinalysis complete panel - Urine URINALYSIS, WITH MICROSCOPIC Lab Routine Urinary tract infection without hematuria, site unspecified Expected: 01/22/2022, Expires: 03/24/2022 [facility] Work Phone: Comment on above: Expected: 01/22/2022, Expires: 2 Start: 01-14-2022 Urine microalbumin profile DTAP,TDAP,TD (2 - Td or Tdap) [facility] Start: 12-19-2021 Influenza vaccination INFLUENZA (#1) [facility] Start: 12-04-2021 Procedure [facility] Work Phone: Start: 11-29-2021 COVID-19 VACCINE (5 - Booster for Pfizer series) COVID-19 VACCINE (5 - Booster for Pfizer series) [facility] Start: 11-21-2021 End: 01-21-2022 25-hydroxyvitamin D3 [Mass/volume] in Serum or Plasma VITAMIN D 25 HYDROXY Lab Routine Vitamin D deficiency Expected: 11/21/2021, Expires: 01/21/2022 [facility] Work Phone: Comment on above: Expected: 11/21/2021, Expires: 2 Start: 11-21-2021 End: 01-21-2022 Comprehensive metabolic 2000 panel - Serum or Plasma COMP METABOLIC PANEL Lab Routine Essential hypertension Expected: 11/21/2021, Expires: 01/21/2022 [facility] Work Phone: Comment on above: Expected: 11/21/2021, Expires: 2 Start: 11-04-2021 Hemoglobin A1c/Hemoglobin.total in Blood HBA1C [facility] Start: 10-02-2021 3 comp foot exam completed DIABETIC FOOT EXAM [facility] Start: 10-02-2021 Diabetic foot examination Diabetic Foot Exam [facility] Start: 09-24-2021 COVID-19 VACCINE (5 - Booster for Pfizer series) COVID-19 VACCINE (5 - Booster for Pfizer series) [facility] Start: 09-10-2021 Mammography MAMMOGRAM [facility] [facility] Start: 09-02-2021 End: 09-02-2021 Patient encounter procedure 09/02/2021 Office Visit Rheumatology Leni Magallanes, Clinton Carmichael, [address] [place] [id number] [facility] Rheumatology Start: 08-27-2021 Hepatitis B vaccination HEP B VACCINE (2 of 3 - Risk 3-dose series) [facility] Start: 08-20-2021 Hepatitis C antibody, confirmatory test DILATED RETINAL EXAM [facility] Start: 08-18-2021 End: 03-04-2022 Alanine aminotransferase [Enzymatic activity/volume] in Serum or Plasma ALT Lab Routine Rheumatoid arthritis of multiple sites with negative rheumatoid factor penitentiary current use of systemic steroids penitentiary (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 of aspirin History of stroke History of rheumatoid arthritis Elevated hemidiaphragm BONILLA (nonalcoholic steatohepatitis) Fatty liver Thoracic degenerative disc disease Rotator cuff arthropathy of both shoulders Osteoarthritis of both wrists, unspecified osteoarthritis type Osteoarthritis of both hands, unspecified osteoarthritis type Osteoarthritis of cervical spine, unspecified spinal osteoarthritis complication status Lumbar degenerative disc disease Expected: 08/18/2021 (Approximate), Expires: 03/04/2022 [facility] Comment on above: Expected: 08/18/2021 (Approximate), Expi res: 03/04/2022 Start: 08-18-2021 End: 03-04-2022 Aspartate aminotransferase [Enzymatic activity/volume] in Serum or Plasma AST Lab Routine Rheumatoid arthritis of multiple sites with negative rheumatoid factor 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 of systemic steroids 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 History of stroke History of rheumatoid arthritis Elevated hemidiaphragm BONILLA (nonalcoholic steatohepatitis) Fatty liver Thoracic degenerative disc disease Rotator cuff arthropathy of both shoulders Osteoarthritis of both wrists, unspecified osteoarthritis type Osteoarthritis of both hands, unspecified osteoarthritis type Osteoarthritis of cervical spine, unspecified spinal osteoarthritis complication status Lumbar degenerative disc disease Expected: 08/18/2021 (Approximate), Expires: 03/04/2022 [facility] Comment on above: Expected: 08/18/2021 (Approximate), Expi res: 03/04/2022 Start: 08-18-2021 End: 03-04-2022 C-reactive protein C REACTIVE PROTEIN Lab Routine Rheumatoid arthritis of multiple sites with negative rheumatoid factor 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 of systemic steroids 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 History of stroke History of rheumatoid arthritis Elevated hemidiaphragm BONILLA (nonalcoholic steatohepatitis) Fatty liver Thoracic degenerative disc disease Rotator cuff arthropathy of both shoulders Osteoarthritis of both wrists, unspecified osteoarthritis type Osteoarthritis of both hands, unspecified osteoarthritis type Osteoarthritis of cervical spine, unspecified spinal osteoarthritis complication status Lumbar degenerative disc disease Expected: 08/18/2021 (Approximate), Expires: 03/04/2022 [facility] Comment on above: Expected: 08/18/2021 (Approximate), Expi res: 03/04/2022 Start: 08-18-2021 End: 03-04-2022 Complete blood count with white cell differential, automated CBC, EDIF, PLATELET Lab Routine Rheumatoid arthritis of multiple sites with negative rheumatoid factor 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 of systemic steroids penitentiary (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 of aspirin History of stroke History of rheumatoid arthritis Elevated hemidiaphragm BONILLA (nonalcoholic steatohepatitis) Fatty liver Thoracic degenerative disc disease Rotator cuff arthropathy of both shoulders Osteoarthritis of both wrists, unspecified osteoarthritis type Osteoarthritis of both hands, unspecified osteoarthritis type Osteoarthritis of cervical spine, unspecified spinal osteoarthritis complication status Lumbar degenerative disc disease Expected: 08/18/2021 (Approximate), Expires: 03/04/2022 [facility] Comment on above: Expected: 08/18/2021 (Approximate), Expi res: 03/04/2022 Start: 08-18-2021 End: 03-04-2022 Creatinine [Mass/volume] in Serum or Plasma CREATININE SERUM Lab Routine Rheumatoid arthritis of multiple sites with negative rheumatoid factor penitentiary current use of systemic steroids 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 History of stroke History of rheumatoid arthritis Elevated hemidiaphragm BONILLA (nonalcoholic steatohepatitis) Fatty liver Thoracic degenerative disc disease Rotator cuff arthropathy of both shoulders Osteoarthritis of both wrists, unspecified osteoarthritis type Osteoarthritis of both hands, unspecified osteoarthritis type Osteoarthritis of cervical spine, unspecified spinal osteoarthritis complication status Lumbar degenerative disc disease Expected: 08/18/2021 (Approximate), Expires: 03/04/2022 [facility] Comment on above: Expected: 08/18/2021 (Approximate), Expi res: 03/04/2022 Start: 08-18-2021 End: 03-04-2022 SEDIMENTATION RATE, AUTOMATED SEDIMENTATION RATE, AUTOMATED Lab Routine Rheumatoid arthritis of multiple sites with negative rheumatoid factor 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 of systemic steroids penitentiary (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 of aspirin History of stroke History of rheumatoid arthritis Elevated hemidiaphragm BONILLA (nonalcoholic steatohepatitis) Fatty liver Thoracic degenerative disc disease Rotator cuff arthropathy of both shoulders Osteoarthritis of both wrists, unspecified osteoarthritis type Osteoarthritis of both hands, unspecified osteoarthritis type Osteoarthritis of cervical spine, unspecified spinal osteoarthritis complication status Lumbar degenerative disc disease Expected: 08/18/2021 (Approximate), Expires: 03/04/2022 [facility] Comment on above: Expected: 08/18/2021 (Approximate), Expi res: 03/04/2022 Start: 04-20-2021 ADVANCE DIRECTIVE DISCUSSION ADVANCE DIRECTIVE DISCUSSION [facility] Start: 04-14-2021 COVID-19 VACCINE (4 - Booster for Pfizer series) COVID-19 VACCINE (4 - Booster for Pfizer series) [facility] Start: 06-17-2019 End: 06-17-2019 Office Visit 06/17/2019 Office Visit Rheumatology Leni Magallanes, Clinton Carmichael, DO [address] [place] [phone] [facility] Rheumatology Start: 05-16-2019 End: 05-16-2020 SUSI MULTIPLEX SCRN WITH REFLEX SUSI MULTIPLEX SCRN WITH REFLEX Lab Routine Rheumatoid arthritis involving multiple sites with positive rheumatoid factor Antiplatelet or antithrombotic long-term use Fatigue, unspecified type History of rheumatoid arthritis 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 Asthma, unspecified asthma [...] type Rotator cuff arthropathy of both shoulders Expected: 05/16/2019 (Approximate), Expires: 05/16/2020 [facility] Comment on above: Expected: 05/16/2019 (Approximate), Expi res: 05/16/2020 Start: 05-16-2019 End: 05-16-2020 ANCA INIT SCRN (ANCA, PR3AB, MPO) ANCA INIT SCRN (ANCA, PR3AB, MPO) Lab Routine Rheumatoid arthritis involving multiple sites with positive rheumatoid factor Antiplatelet or antithrombotic long-term use Fatigue, unspecified type History of rheumatoid arthritis History of stroke penitentiary (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 of aspirin Asthma, unspecified asthma [...] type Rotator cuff arthropathy of both shoulders Expected: 05/16/2019 (Approximate), Expires: 05/16/2020 [facility] Comment on above: Expected: 05/16/2019 (Approximate), Expi res: 05/16/2020 Start: 05-16-2019 End: 05-16-2020 Angiotensin converting enzyme [Catalytic activity/Vol] ANGIOTENSIN CONVERTING ENZYME Lab Routine Rheumatoid arthritis involving multiple sites with positive rheumatoid factor Antiplatelet or antithrombotic long-term use Fatigue, unspecified type History of rheumatoid arthritis 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 Asthma, unspecified asthma [...] type Rotator cuff arthropathy of both shoulders Expected: 05/16/2019 (Approximate), Expires: 05/16/2020 [facility] Comment on above: Expected: 05/16/2019 (Approximate), Expi res: 05/16/2020 Start: 05-16-2019 End: 05-16-2020 CBC, EDIF, PLATELET CBC, EDIF, PLATELET Lab Routine Rheumatoid arthritis involving multiple sites with positive rheumatoid factor Antiplatelet or antithrombotic long-term use Fatigue, unspecified type History of rheumatoid arthritis 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 Asthma, unspecified asthma [...] type Rotator cuff arthropathy of both shoulders Expected: 05/16/2019 (Approximate), Expires: 05/16/2020 [facility] Comment on above: Expected: 05/16/2019 (Approximate), Expi res: 05/16/2020 Start: 05-16-2019 End: 05-16-2020 CK CK Lab Routine Rheumatoid arthritis involving multiple sites with positive rheumatoid factor Antiplatelet or antithrombotic long-term use Fatigue, unspecified type History of rheumatoid arthritis 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 Asthma, unspecified asthma [...] type Rotator cuff arthropathy of both shoulders Expected: 05/16/2019 (Approximate), Expires: 05/16/2020 [facility] Comment on above: Expected: 05/16/2019 (Approximate), Expi res: 05/16/2020 Start: 05-16-2019 End: 05-16-2020 Comprehensive metabolic 2000 panel COMPREHENSIVE METABOLIC PANEL Lab Routine Rheumatoid arthritis involving multiple sites with positive rheumatoid factor Antiplatelet or antithrombotic long-term use Fatigue, unspecified type History of rheumatoid arthritis 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 Asthma, unspecified asthma [...] type Rotator cuff arthropathy of both shoulders Expected: 05/16/2019 (Approximate), Expires: 05/16/2020 [facility] Comment on above: Expected: 05/16/2019 (Approximate), Expi res: 05/16/2020 Start: 05-16-2019 End: 05-16-2020 CRP [Mass/Vol] C REACTIVE PROTEIN Lab Routine Rheumatoid arthritis involving multiple sites with positive rheumatoid factor Antiplatelet or antithrombotic long-term use Fatigue, unspecified type History of rheumatoid arthritis 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 Asthma, unspecified asthma [...] type Rotator cuff arthropathy of both shoulders Expected: 05/16/2019 (Approximate), Expires: 05/16/2020 [facility] Comment on above: Expected: 05/16/2019 (Approximate), Expi res: 05/16/2020 Start: 05-16-2019 End: 05-16-2020 CYCLIC CITRULLINATE PEPTIDE AB CYCLIC CITRULLINATE PEPTIDE AB Lab Routine Rheumatoid arthritis involving multiple sites with positive rheumatoid factor Antiplatelet or antithrombotic long-term use Fatigue, unspecified type History of rheumatoid arthritis 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 Asthma, unspecified asthma [...] type Rotator cuff arthropathy of both shoulders Expected: 05/16/2019 (Approximate), Expires: 05/16/2020 [facility] Comment on above: Expected: 05/16/2019 (Approximate), Expi res: 05/16/2020 Start: 05-16-2019 End: 05-16-2020 DESI AND PE, SERUM DESI AND PE, SERUM Lab Routine Rheumatoid arthritis involving multiple sites with positive rheumatoid factor Antiplatelet or antithrombotic long-term use Fatigue, unspecified type History of rheumatoid arthritis 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 Asthma, unspecified asthma [...] type Rotator cuff arthropathy of both shoulders Expected: 05/16/2019 (Approximate), Expires: 05/16/2020 [facility] Comment on above: Expected: 05/16/2019 (Approximate), Expi res: 05/16/2020 Start: 05-16-2019 End: 05-16-2020 Radiography of cervical spine XR SPINE CERVICAL WITH OBL AND FLEX/EXT Imaging Routine Rheumatoid arthritis involving multiple sites with positive rheumatoid factor Antiplatelet or antithrombotic long-term use Fatigue, unspecified type History of rheumatoid arthritis 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 Asthma, unspecified asthma [...] type Rotator cuff arthropathy of both shoulders Expected: 05/16/2019, Expires: 05/16/2020 [facility] Comment on above: Expected: 05/16/2019, Expires: Start: 05-16-2019 End: 05-16-2020 Radiography of hand XR HANDS-RHEUMATOLOGY EVAL ONLY Imaging Routine Rheumatoid arthritis involving multiple sites with positive rheumatoid factor Antiplatelet or antithrombotic long-term use Fatigue, unspecified type History of rheumatoid arthritis History of stroke penitentiary (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 of aspirin Asthma, unspecified asthma [...] type Rotator cuff arthropathy of both shoulders Expected: 05/16/2019, Expires: 05/16/2020 [facility] Comment on above: Expected: 05/16/2019, Expires: 1 Start: 05-16-2019 End: 05-16-2020 Radiography of wrist [facility] Comment on above: Expected: 05/16/2019, Expires: 1 Start: 05-16-2019 End: 05-16-2020 RHEUMATOID FACTOR RHEUMATOID FACTOR Lab Routine Rheumatoid arthritis involving multiple sites with positive rheumatoid factor Antiplatelet or antithrombotic long-term use Fatigue, unspecified type History of rheumatoid arthritis 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 Asthma, unspecified asthma [...] type Rotator cuff arthropathy of both shoulders Expected: 05/16/2019 (Approximate), Expires: 05/16/2020 [facility] Comment on above: Expected: 05/16/2019 (Approximate), Expi res: 05/16/2020 Start: 05-16-2019 End: 05-16-2020 SEDIMENTATION RATE, AUTOMATED SEDIMENTATION RATE, AUTOMATED Lab Routine Rheumatoid arthritis involving multiple sites with positive rheumatoid factor Antiplatelet or antithrombotic long-term use Fatigue, unspecified type History of rheumatoid arthritis History of stroke penitentiary (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 of aspirin Asthma, unspecified asthma [...] type Rotator cuff arthropathy of both shoulders Expected: 05/16/2019 (Approximate), Expires: 05/16/2020 [facility] Comment on above: Expected: 05/16/2019 (Approximate), Expi res: 05/16/2020 Start: 05-16-2019 End: 05-16-2020 T-TRANSGLUTAMINASE IGA AB T-TRANSGLUTAMINASE IGA AB Lab Routine Rheumatoid arthritis involving multiple sites with positive rheumatoid factor Antiplatelet or antithrombotic long-term use Fatigue, unspecified type History of rheumatoid arthritis 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] type Rotator cuff arthropathy of both shoulders Expected: 05/16/2019 (Approximate), Expires: 05/16/2020 [facility] Comment on above: Expected: 05/16/2019 (Approximate), Expi res: 05/16/2020 Start: 05-16-2019 End: 05-16-2020 Urate [Mass/Vol] URIC ACID Lab Routine Rheumatoid arthritis involving multiple sites with positive rheumatoid factor Antiplatelet or antithrombotic long-term use Fatigue, unspecified type History of rheumatoid arthritis History of stroke penitentiary (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 of aspirin Asthma, unspecified asthma [...] type Rotator cuff arthropathy of both shoulders Expected: 05/16/2019 (Approximate), Expires: 05/16/2020 [facility] Comment on above: Expected: 05/16/2019 (Approximate), Expi res: 05/16/2020 Start: 05-16-2019 End: 05-16-2020 VITAMIN D (25-HYDROXY,TOTAL) VITAMIN D (25-HYDROXY,TOTAL) Lab Routine Rheumatoid arthritis involving multiple sites with positive rheumatoid factor Antiplatelet or antithrombotic long-term use Fatigue, unspecified type History of rheumatoid arthritis History of stroke penitentiary (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 of aspirin Asthma, unspecified asthma [...] type Rotator cuff arthropathy of both shoulders Expected: 05/16/2019 (Approximate), Expires: 05/16/2020 [facility] Comment on above: Expected: 05/16/2019 (Approximate), Expi res: 05/16/2020 Start: 05-16-2019 End: 05-16-2020 VITAMIN D, (1,25 DIHYDROXY) VITAMIN D, (1,25 DIHYDROXY) Lab Routine Rheumatoid arthritis involving multiple sites with positive rheumatoid factor Antiplatelet or antithrombotic long-term use Fatigue, unspecified type History of rheumatoid arthritis 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 Asthma, unspecified asthma [...] type Rotator cuff arthropathy of both shoulders Expected: 05/16/2019 (Approximate), Expires: 05/16/2020 [facility] Comment on above: Expected: 05/16/2019 (Approximate), Expi res: 05/16/2020 Start: 12-19-2018 Influenza vaccination INFLUENZA VACCINE (#1) [facility] Start: 10-06-2018 Screening for malignant neoplasm of breast MAMMOGRAM SCREENING DISCUSSION [facility] Start: 08-28-2016 Screening for malignant neoplasm of colon COLORECTAL CANCER SCREENING DISCUSSION [facility] Start: 08-03-2011 Pneumococcal vaccination [facility] Start: 2006 RSV Vaccine (1 - 1-dose 60+ series) RSV Vaccine (1 - 1-dose 60+ series) [facility] Start: 1996 Colonoscopy COLON CANCER SCREENING DISCUSSION [facility] Start: 1996 Zoster vaccine hzv live for subcutaneous use ZOSTER (SHINGLES) VACCINE (1 of 2) [facility] Start: 08-03-1991 COLOGUARD (FIT-DNA) COLOGUARD (FIT-DNA) [facility] Start: 08-03-1991 Colonoscopy COLORECTAL CANCER SCREENING DISCUSSION [facility] Start: 08-03-[address] COLONOGRAPHY [facility] Start: 08-03-1991 FECAL OCCULT BLOOD FECAL OCCULT BLOOD [facility] Start: 08-03-1991 Screening for malignant neoplasm of colon COLORECTAL CANCER SCREENING DISCUSSION [facility] Start: 08-03-1991 SIGMOIDOSCOPY SIGMOIDOSCOPY [facility] Start: 1986 Fasting lipid profile LIPID SCREENING [facility] Start: 1986 Screening for malignant neoplasm of breast MAMMOGRAM SCREENING DISCUSSION [facility] Start: 1986 Screening mammography MAMMOGRAM SCREENING DISCUSSION [facility] Start: 08-03-1967 Screening for malignant neoplasm of cervix [facility] Start: 1965 Third diphtheria, tetanus and acellular pertussis (DTaP) vaccination TDAP (ADULT) [facility] Start: 1964 BP CONTROLLED (<130/80) BP CONTROLLED (<130/80) [facility] Start: 1964 SPIROMETRY SPIROMETRY [facility] Start: 1964 Tetanus vaccination TETANUS [facility] Start: 1964 zzBP Controlled (<130/80) (Retired) zzBP Controlled (<130/80) (Retired) [facility] Start: 1958 COVID-19 VACCINE (1) COVID-19 VACCINE (1) [facility] Start: 1946 Hepatitis C antibody, confirmatory test HEPATITIS C VIRUS SCREENING [facility] Start: 1946 Hepatitis C screening HEPATITIS C VIRUS SCREENING [facility] Start: 1946 Potassium [Moles/volume] in Serum or Plasma POTASSIUM [facility] Start: 1946 Screening for osteoporosis DEXA SCAN DISCUSSION [facility] Bacteria identified in Urine by Culture URINE CULTURE Microbiology Routine Dysuria Dark yellow-colored urine 06/09/2022 1:05 PM EST [facility] Work Phone: End: 11-24-2025 BD DXA TRABECULAR BONE SCORE (TBS) BD DXA TRABECULAR BONE SCORE (TBS) Radiology Routine Osteopenia of right hip 1 Occurrences starting 10/26/2024 until 11/24/2025 [facility] Comment on above: 1 Occurrences starting 10/26/2024 until 11/24/[address] [facility] End: 08-14-2023 CT Chest WO contrast [facility] Comment on above: 1 Occurrences starting 08/14/2023 until 08/14/2023 End: 07-08-2025 CT Chest WO contrast CT CHEST WO IVCON Radiology Routine Interstitial pulmonary disease (HCC) 1 Occurrences starting 06/08/2024 until 07/08/2025 [facility] Comment on above: 1 Occurrences starting 06/08/2024 until 07/08/2025 End: 09-06-2024 CT Chest WO contrast [facility] Comment on above: 1 Occurrences starting 09/06/2024 until 09/06/2024 End: 11-24-2025 DXA Skeletal system.axial Views for bone density DXA-AXIAL SKELETON Radiology Routine Osteopenia of right hip 1 Occurrences starting 10/26/2024 until 11/24/2025 [facility] Comment on above: 1 Occurrences starting 10/26/2024 until 11/24/2025 End: 03-25-2024 DXA-AXIAL SKELETON DXA-AXIAL SKELETON Radiology Routine Osteopenia of right hip 1 Occurrences starting 02/23/2023 until 03/25/2024 [facility] Work Phone: Comment on above: 1 Occurrences starting 02/23/2023 until 03/25/2024 End: 09-06-2023 LUNG DIFFUSION CAPACITY (DLCO) LUNG DIFFUSION CAPACITY (DLCO) PFT Routine ILD (interstitial lung disease) (HCC) 1 Occurrences starting 08/07/2022 until 09/06/2023 [facility] Work Phone: Comment on above: 1 Occurrences starting 08/07/2022 until 09/06/2023 End: 07-08-2025 LUNG DIFFUSION CAPACITY (DLCO) LUNG DIFFUSION CAPACITY (DLCO) PFT Routine ILD (interstitial lung disease) (HCC) Interstitial pulmonary disease (HCC) 1 Occurrences starting 06/08/2024 until 07/08/2025 [facility] Comment on above: 1 Occurrences starting 06/08/2024 until 07/08/2025 End: 11-21-2023 JULIETTE SCREENING JULIETTE SCREENING Radiology Routine Screening mammogram, encounter for 1 Occurrences starting 10/22/2022 until 11/21/2023 [facility] Work Phone: Comment on above: 1 Occurrences starting 10/22/2022 until 11/21/2023 MG Breast Screening [facility] Work Phone: Comment on above: Ordered: 10/28/2023 End: 07-25-2024 MR Knee - right WO contrast MRI KNEE WO IVCON RIGHT Radiology Routine Patellar tendon strain, right, initial encounter 1 Occurrences starting 06/26/2023 until 07/25/2024 [facility] Work Phone: Comment on above: 1 Occurrences starting 06/26/2023 until 07/25/2024 Patient Education ED Knee Pain o f Uncertain Cause [facility] Work Phone: Patient referral [facility] Work Phone: PFT COMPLETE PFT COMPLETE PFT Routine NSIP (nonspecific interstitial pneumonitis) Interstitial lung disease Ordered: 11/12/2022 [facility] Comment on above: Ordered: 11/12/2022 PFT COMPLETE PFT COMPLETE PFT Routine Restrictive lung disease Ordered: 07/26/2024 [facility] Comment on above: Ordered: 07/26/[address] [facility] Work Phone: End: 09-03-2023 Radiologic exam chest 2 views XR CHEST 2V FRONTAL/LAT Radiology Routine Shortness of breath Cough, unspecified type 1 Occurrences starting 08/04/2022 until 09/03/2023 [facility] Work Phone: Comment on above: 1 Occurrences starting 08/04/2022 until 09/03/2023 Radiologic exam ches t 2 views XR CHEST 2V FRONTAL/LAT Radiology Routine Shortness of breath Cough, unspecified type 08/04/2022 1:50 PM EDT [facility] Work Phone: Radionuclide gastric emptying study [facility] Work Phone: End: 09-06-2023 SIX MINUTE WALK SIX MINUTE WALK PFT Routine ILD (interstitial lung disease) (HCC) 1 Occurrences starting 08/07/2022 until 09/06/2023 [facility] Work Phone: Comment on above: 1 Occurrences starting 08/07/2022 until 09/06/2023 End: 09-06-2023 SPIROMETRY WITH DILATOR IF OBSTRUCTED SPIROMETRY WITH DILATOR IF OBSTRUCTED PFT Routine ILD (interstitial lung disease) (HCC) 1 Occurrences starting 08/07/2022 until 09/06/2023 [facility] Work Phone: Comment on above: 1 Occurrences starting 08/07/2022 until 09/06/2023 End: 07-08-2025 SPIROMETRY WITH DILATOR IF OBSTRUCTED SPIROMETRY WITH DILATOR IF OBSTRUCTED PFT Routine ILD (interstitial lung disease) (HCC) Interstitial pulmonary disease (HCC) 1 Occurrences starting 06/08/2024 until 07/08/2025 [facility] Work Phone: Comment on above: 1 Occurrences starting 06/08/2024 until 07/08/2025 End: 09-29-2024 US Carotid arteries - bilateral US CAROTID ARTERIES [facility] Vascular Lab Routine Carotid stenosis, asymptomatic, bilateral 1 Occurrences starting 09/30/2023 until 09/29/2024 [facility] Work Phone: Comment on above: 1 Occurrences starting 09/30/2023 until 09/29/2024 End: 11-02-2025 US Carotid arteries - bilateral US CAROTID ARTERIES [facility] Vascular Lab Routine Carotid stenosis, asymptomatic, bilateral 1 Occurrences starting 11/02/2024 until 11/02/2025 [facility] Work Phone: Comment on above: 1 Occurrences starting 11/02/2024 until 11/02/2025 End: 10-15-2022 US [facility] Vascular Lab Routine Bilateral carotid artery stenosis 1 Occurrences starting 10/15/2021 until 10/15/2022 [facility] Work Phone: Comment on above: 1 Occurrences starting 10/15/2021 until 10/15/2022 [facility] End: 02-23-2025 XR Chest PA and Lateral XR CHEST 2V FRONTAL/LAT Radiology Routine Shortness of breath Wheezing 1 Occurrences starting 01/25/2024 until 02/23/2025 [facility] Work Phone: Comment on above: 1 Occurrences starting 01/25/2024 until 02/23/2025 XR Chest PA and Lateral XR CHEST 2V FRONTAL/LAT Radiology Routine Shortness of breath Wheezing 01/25/2024 2:12 PM EDT [facility] End: 12-30-2021 XR FOOT GENERAL 3V AP/LAT/OBL RIGHT [facility] Work Phone: Comment on above: 1 Occurrences starting 12/30/2021 until 12/30/2021 End: 11-25-2025 XR Hand - bilateral PA and Lateral and Oblique XR HAND GENERAL 3V PA/LAT/OBL BILATERAL Radiology Routine Seropositive rheumatoid arthritis (HCC) Pain in both hands 1 Occurrences starting 10/26/2024 until 11/25/2025 [facility] Comment on above: 1 Occurrences starting 10/26/2024 until 11/25/2025 XR Hand - bilateral PA and Lateral and Oblique XR HAND GENERAL 3V PA/LAT/OBL BILATERAL Radiology Routine Seropositive rheumatoid arthritis (HCC) Pain in both hands 11/10/2024 9:37 AM EDT [facility] Work Phone: End: 06-30-2024 XR Knee - right 4 Views XR KNEE GENERAL 4V AP BOTH/PA BOTH/LAT/MERC RIGHT Radiology Routine Right knee pain, unspecified chronicity Fall, initial encounter 1 Occurrences starting 06/01/2023 until 06/30/2024 [facility] Work Phone: Comment on above: 1 Occurrences starting 06/01/2023 until 06/30/2024 [facility] Immunizations Immunization Date Immunization Notes Care Provider Ethan horan 02-22-2024 influenza virus vacc ine, unspecified formulation Alberto Argueta APRN.CROP AND SOIL TECHNICIAN Work Phone: [facility] 12-12-2022 influenza (aIIV4) vaccine, age 65+ yr, quadrivalent, PF (FLUAD QUAD) Hernesto Older HAIR BOILER OPERATOR.CROP AND SOIL TECHNICIAN Work Phone: [facility] 12-12-2022 influenza virus vacc ine, unspecified formulation Eva Nielsen MD Work Phone: [facility] 01-03-2022 influenza virus vacc ine, unspecified formulation Ivan Quan MD Work Phone: [facility] 01-13-2021 COVID-19 vaccine, ag e 12+ yr (PFIZER-BIONTHot Mix Mobile - PURPLE TOP) Vicente Mcgrath APRN.CROP AND SOIL TECHNICIAN Work Phone: [facility] 12-29-2020 influenza, high dose seasonal, preservative-free Vicente Mcgrath APRN.CROP AND SOIL TECHNICIAN Work Phone: [facility] Work Phone: 12-29-2020 influenza, high-dose , quadrivalent vaccine (FLUZONE HIGH DOSE QUADRIVALENT) Vicente Mcgrath APRN.CROP AND SOIL TECHNICIAN Work Phone: [facility] 12-23-2019 influenza, injectabl e, quadrivalent, preservative free Vicente Mcgrath APRN.CROP AND SOIL TECHNICIAN Work Phone: [facility] 09-15-2019 zoster vaccine recombinant Vicente Mcgrath APRN.CROP AND SOIL TECHNICIAN Work Phone: [facility] 02-14-2019 zoster vaccine recombinant Vicente Mcgrath APRN.CROP AND SOIL TECHNICIAN Work Phone: [facility] 01-13-2019 influenza, injectabl e, quadrivalent, preservative free Vicente Mcgrath APRN.CROP AND SOIL TECHNICIAN Work Phone: [facility] 12-19-[address] Alcira Anderson Work Phone: [facility] 12-19-2018 influenza, seasonal, injectable, preservative free Vicente Mcgrath APRN.CROP AND SOIL TECHNICIAN Work Phone: [facility] 02-04-2018 influenza, injectabl e, quadrivalent, preservative free Vicente Mcgrath APRN.CROP AND SOIL TECHNICIAN Work Phone: [facility] 09-22-2017 pneumococcal polysaccharide vaccine, 23 valent Vicente Alcides HAIR BOILER OPERATOR.CROP AND SOIL TECHNICIAN Work Phone: [facility] 12-23-2016 influenza, high dose seasonal, preservative-free Vicente Alcides HAIR BOILER OPERATOR.CROP AND SOIL TECHNICIAN Work Phone: [facility] 02-27-2016 influenza, high dose seasonal, preservative-free Vicente Alcides HAIR BOILER OPERATOR.CROP AND SOIL TECHNICIAN Work Phone: [facility] 02-27-2016 pneumococcal conjuga te vaccine, 13 valent Vicente Alcides HAIR BOILER OPERATOR.CROP AND SOIL TECHNICIAN Work Phone: [facility] 02-17-2016 pneumococcal polysaccharide vaccine, 23 valent Vicente Alcides HAIR BOILER OPERATOR.CROP AND SOIL TECHNICIAN Work Phone: [facility] Work Phone: 03-30-2015 pneumococcal conjuga te vaccine, 13 valent Vicente Alcides HAIR BOILER OPERATOR.CROP AND SOIL TECHNICIAN Work Phone: [facility] Work Phone: 01-29-2015 influenza, high dose seasonal, preservative-free Vicente Alcides HAIR BOILER OPERATOR.CROP AND SOIL TECHNICIAN Work Phone: [facility] 01-29-2015 pneumococcal conjuga te vaccine, 13 valent Vicente Alcides HAIR BOILER OPERATOR.CROP AND SOIL TECHNICIAN Work Phone: [facility] 01-18-[address] Alcira Anderson Work Phone: [facility] 01-18-2015 influenza, seasonal, injectable, preservative free Vicente Mcgrath HAIR BOILER OPERATOR.CROP AND SOIL TECHNICIAN Work Phone: [facility] 01-18-2015 pneumococcal conjuga te vaccine, 13 valent Vicente Alcides HAIR BOILER OPERATOR.CROP AND SOIL TECHNICIAN Work Phone: [facility] 01-15-2012 tetanus toxoid, redu winnie diphtheria toxoid, and acellular pertussis vaccine, adsorbed Vicente Alcides HAIR BOILER OPERATOR.CROP AND SOIL TECHNICIAN Work Phone: [facility] Work Phone: 01-10-2012 influenza, seasonal, injectable, preservative free Vicente Alcides HAIR BOILER OPERATOR.CROP AND SOIL TECHNICIAN Work Phone: [facility] 04-20-2011 pneumococcal polysaccharide vaccine, 23 valent Vicente Alcides HAIR BOILER OPERATOR.CROP AND SOIL TECHNICIAN Work Phone: [facility] 04-20-[address] Jai Anderson Work Phone: [facility] Work Phone: 04-20-2011 pneumococcal vaccine , unspecified formulation Dr. Alcira Anderson Work Phone: [facility] 02-06-2011 influenza virus vacc ine, unspecified formulation Vicente Mcgrath HAIR BOILER OPERATOR.[facility] Work Phone: [facility] Work Phone: 11-14-2009 zoster vaccine, live Vicente potts HAIR BOILER OPERATOR.[facility] Work Phone: [facility] 02-21-2009 novel influenza-H1N1 -09, preservative-free, injectable Vicente Mcgrath HAIR BOILER OPERATOR.[facility] Work Phone: [facility] 01-15-2009 influenza virus vacc ine, unspecified formulation Vicente Mcgrath HAIR BOILER OPERATOR.[facility] Work Phone: [facility] Work Phone: 02-08-2008 influenza virus vacc ine, unspecified formulation Vicente Mcgrath APRN.[facility] Work Phone: [facility] Work Phone: 03-23-2006 pneumococcal polysaccharide vaccine, 23 valent Vicente Mcgrath APRN.[facility] Work Phone: [facility] Work Phone: 02-09-2006 influenza virus vacc ine, unspecified formulation Vicente Mcgrath APRN.[facility] Work Phone: [facility] Work Phone: 01-19-2004 influenza virus vacc ine, unspecified formulation Vicente Mcgrath APRN.[facility] Work Phone: [facility] 01-19-2004 tetanus and diphther ia toxoids, not adsorbed, for adult use Vicente Mcgrath APRN.[facility] Work Phone: [facility] 11-18-1998 pneumococcal polysaccharide vaccine, 23 valent Vicente Mcgrath APRN.[facility] Work Phone: [facility] Payers Date Payer Category Payer Self-pay [id number] 2019 Managed Care (unspecified) ANTHEM HMO PPO POS [id number] 2019 Unknown ANTHEM ANTHEM HM O PPO POS xxxxxxxxx 2019-Present xxxxxxxxx [id number] 2019 Medicare MEDICARE MEDICAR E A AND B xxxxxxxxxxx 2019-Present [place], [place] xxxxxxxxxxx [id number] 2010 [facility] P[facility] [id number] 2010 Unknown [id number] 2010 Unknown [id number] 2010 Unknown [id number] 2010 Medicare [id number] 2010 Medicare [id number] 2010 Medicare [id number] 1946 Unknown [id number] .983 1946 Unknown [id number] 2.16.840.1.880338.3.579.2 .983 1946 Unknown [id number] .983 1946 Unknown [id number] 2.16.840.1.840645.3.579.2 .983 1946 Unknown [id number] .983 1946 Unknown [id number] 2.16.840.1.926207.3.579.2 .983 1946 Unknown [id number] 2.16.840.1.928639.3.579.2 .983 1946 Unknown [id number] 2.16.840.1.107003.3.579.2 .983 Unknown [id number] 2.16.840.1.014276.3.579.2 .462 Unknown [id number] 2.16.840.1.908138.3.579.2 .462 Unknown [id number] 2.16.840.1.710164.3.579.2 .462 Unknown [id number] [id number] .462 Unknown [id number] 2.16.840.1.805332.3.579.2 .462 Unknown [id number] [id number] .462 Unknown [id number] .462 Unknown [id number] .462 Social History Date Type Detail Facility Start: 05-16-2019 End: 05-23-2023 Tobacco smoking status DCIS Never smoker [facility] Start: 05-16-2019 End: 09-13-2024 Alcohol intake Lifetime non-drinker (finding) [facility] Start: 05-16-2019 End: 06-04-2022 History SDOH Alcohol Frequency 1 [facility] Start: 1945 Sex Assigned At Not on file A [facility] Start: 09-25-2010 End: 05-16-2019 Tobacco use and exposure Smokeless tobacco non-user [facility] Start: 05-21-2021 End: 11-29-2024 Alcohol intake Current non-drinker of alcohol (finding) [facility] Start: 10-05-2019 End: 06-04-2022 History SDOH Alcohol Std Drinks 98 [facility] Start: 03-19-2020 History SDOH Social Connections Phone 5 [facility] Start: 10-05-2019 End: 06-04-2022 History SDOH Social Connections Membership 2 [facility] Start: 10-05-2019 End: 06-04-2022 History SDOH Social Connections Living 3 [facility] Start: 03-19-2020 End: 06-04-2022 History SDOH Physical Activity DPW 0 [facility] Start: 03-19-2020 End: 06-04-2022 History SDOH Financial 4 [facility] Start: 03-19-2020 Education 21 [facility] Start: 1945 Sex Assigned At Female C [facility] Start: 09-10-2021 End: 12-30-2021 Exposure to SARS-CoV-2 (event) Not sure [facility] Start: 09-13-2021 End: 10-24-2021 Exposure to SARS-CoV-2 (event) Unable to assess [facility] Start: 12-04-2021 End: 05-23-2023 Tobacco smoking status NHIS Unknown if ever smoked [facility] Start: 06-22-2019 Spouse/ Signif icant Other [facility] Start: 05-16-2019 End: 09-18-2022 History of Social function [facility] Start: 05-16-2019 End: 09-18-2022 Alcohol Use Disorder Identification Test - Consumption [AUDIT-C] [facility] Start: 03-21-2012 Frequency of Alcohol Consumption Never [facility] Start: 06-28-2015 None [facility] Start: 03-12-2015 Non-smoker [facility] Do you belong to any clubs or organizations such as adventist groups, unions, fraternal or athletic groups, or school groups? No [facility] Are you now , , , , never or living with a partner? [facility] How often to you hav e a drink containing alcohol? Never [facility] How hard is it for y ou to pay for the very basics like food, housing, medical care, and heating Somewhat hard [facility] Do you feel stress - tense, restless, nervous, or anxious, or unable to sleep at night because your mind is troubled all the time - these days [OSQ] Not at all [facility] (I/We) worried wheth er (my/our) food would run out before (I/we) got money to buy more. DK or Refused [facility] Start: 11-10-2018 Gender identity Identifies as female gender (finding) [facility] Start: 11-10-2018 Sexual orientation Heterosexual (fin alvarez) [facility] How hard is it for y ou to pay for the very basics like food, housing, medical care, and heating Very hard [facility] (I/We) worried wheth er (my/our) food would run out before (I/we) got money to buy more. Often true [facility] Start: 02-23-2019 Sex Female (finding) [facility] [employer] NEGATED: Highlighted row [facility] Medical Equipment Procedure Code Equipment Code Equipment Origin al Text Equipment Identifier Dates [id number] Start: 09-30-2019 End: 02-23-2023 Comment on above: Test blood sugar(s) 6 times daily. Dx: E 10.65, Z96.41 Test blood sugar(s) 6 times daily. Dx: Type 1 DM - Controlled E10.9 Insulin: Yes use as directed if p ump fails up to 6 times daily use as directed if pump fails up to 6 times daily [id number] Start: 09-30-2019 Blood Sugar Diagnostic (Accu-Chek Guide Test Strips) strip Start: 05-20-2021 Lancets (Accu-Ch ek Fastclix Lancet Drum) misc Start: 11-04-2021 Insulin Syringe-Needle U-100 (Bd Insulin Syringe Ultra-Fine) 1 mL 30 gauge x 1/2 syringe Start: 05-26-2018 End: 05-27-2018 Insulin Syringe-Needle U-100 (Bd Insulin Syringe Ultra-Fine) 1 mL 30 gauge x 1/2 syringe Start: 05-27-2018 End: 05-27-2018 Lancets (Accu-Ch ek Fastclix Lancet Drum) misc Start: 11-04-2021 End: 11-04-2021 Blood Sugar Diagnostic (Accu-Chek Guide Test Strips) strip Start: 05-20-2021 Lancets (Accu-Ch ek Fastclix Lancet Drum) misc Start: 11-04-2021 Insulin Syringe-Needle U-100 (Bd Insulin Syringe Ultra-Fine) 1 mL 30 gauge x 1/2 syringe Start: 05-26-2018 End: 05-27-2018 Insulin Syringe-Needle U-100 (Bd Insulin Syringe Ultra-Fine) 1 mL 30 gauge x 1/2 syringe Start: 05-27-2018 End: 05-27-2018 Lancets (Accu-Ch ek Fastclix Lancet Drum) misc Start: 11-04-2021 End: 11-04-2021 Blood Sugar Diagnostic (Accu-Chek Guide Test Strips) strip Start: 09-24-2022 Lancets (Accu-Ch ek Fastclix Lancet Drum) misc Start: 11-04-2021 Blood Sugar Diagnostic (Accu-Chek Guide Test Strips) strip Start: 05-20-2021 End: 09-24-2022 Insulin Syringe-Needle U-100 (Bd Insulin Syringe Ultra-Fine) 1 mL 30 gauge x 1/2 syringe Start: 05-26-2018 End: 05-27-2018 Insulin Syringe-Needle U-100 (Bd Insulin Syringe Ultra-Fine) 1 mL 30 gauge x 1/2 syringe Start: 05-27-2018 End: 05-27-2018 Lancets (Accu-Ch ek Fastclix Lancet Drum) misc Start: 11-04-2021 End: 11-04-2021 Blood Sugar Diagnostic (Accu-Chek Guide Test Strips) strip Start: 09-24-2022 Lancets (Accu-Ch ek Fastclix Lancet Drum) misc Start: 11-04-2021 Blood Sugar Diagnostic (Accu-Chek Guide Test Strips) strip Start: 05-20-2021 End: 09-24-2022 Insulin Syringe-Needle U-100 (Bd Insulin Syringe Ultra-Fine) 1 mL 30 gauge x 1/2 syringe Start: 05-26-2018 End: 05-27-2018 Insulin Syringe-Needle U-100 (Bd Insulin Syringe Ultra-Fine) 1 mL 30 gauge x 1/2 syringe Start: 05-27-2018 End: 05-27-2018 Lancets (Accu-Ch ek Fastclix Lancet Drum) misc Start: 11-04-2021 End: 11-04-2021 Lancets (Accu-Ch ek Fastclix Lancet Drum) misc Start: 11-04-2021 Blood Sugar Diagnostic (Accu-Chek Guide Test Strips) strip Start: 05-20-2021 End: 09-24-2022 Insulin Syringe-Needle U-100 (Bd Insulin Syringe Ultra-Fine) 1 mL 30 gauge x 1/2 syringe Start: 05-26-2018 End: 05-27-2018 Insulin Syringe-Needle U-100 (Bd Insulin Syringe Ultra-Fine) 1 mL 30 gauge x 1/2 syringe Start: 05-27-2018 End: 05-27-2018 Lancets (Accu-Ch ek Fastclix Lancet Drum) misc Start: 11-04-2021 End: 11-04-2021 Lancets (Accu-Ch ek Fastclix Lancet Drum) misc Start: 11-04-2021 Blood Sugar Diagnostic (Accu-Chek Guide Test Strips) strip Start: 05-20-2021 End: 09-24-2022 Insulin Syringe-Needle U-100 (Bd Insulin Syringe Ultra-Fine) 1 mL 30 gauge x 1/2 syringe Start: 05-26-2018 End: 05-27-2018 Insulin Syringe-Needle U-100 (Bd Insulin Syringe Ultra-Fine) 1 mL 30 gauge x 1/2 syringe Start: 05-27-2018 End: 05-27-2018 Lancets (Accu-Ch ek Fastclix Lancet Drum) [facility] Start: 11-04-2021 End: 11-04-2021 Lancets (Accu-Ch ek Fastclix Lancet Drum) misc Start: 11-04-2021 Blood Sugar Diagnostic (Accu-Chek Guide Test Strips) strip Start: 05-20-2021 End: 09-24-2022 Insulin Syringe-Needle U-100 (Bd Insulin Syringe Ultra-Fine) 1 mL 30 gauge x 1/2 syringe Start: 05-26-2018 End: 05-27-2018 Insulin Syringe-Needle U-100 (Bd Insulin Syringe Ultra-Fine) 1 mL 30 gauge x 1/2 syringe Start: 05-27-2018 End: 05-27-2018 Lancets (Accu-Ch ek Fastclix Lancet Drum) [facility] Start: 11-04-2021 End: 11-04-2021 Use with blood glucose test upto four times daily [id number] Start: 09-15-2023 End: 09-16-2023 Use with blood glucose test upto four times daily [id number] Start: 09-16-2023 Use upto 4 times daily [id number] Start: 09-16-2023 End: 11-24-2023 Use 4 syringes daily if insulin pump fails [id number] Start: 09-29-2023 Test blood sugar(s) 6 times daily. Dx: E 10.65, Z96.41 [id number] Start: 12-27-2021 End: 02-23-2023 Test blood sugar(s) 6 times daily. Dx: Type 1 DM - Controlled E10.9 Insulin: Yes [id number] Start: 10-02-2020 End: 02-23-2023 Lancets (Accu-Ch ek Fastclix Lancet Drum) [facility] Start: 11-04-2021 Blood Sugar Diagnostic (Accu-Chek Guide Test Strips) strip Start: 05-20-2021 End: 09-24-2022 Insulin Syringe-Needle U-100 (Bd Insulin Syringe Ultra-Fine) 1 mL 30 gauge x 1/2 syringe Start: 05-26-2018 End: 05-27-2018 Insulin Syringe-Needle U-100 (Bd Insulin Syringe Ultra-Fine) 1 mL 30 gauge x 1/2 syringe Start: 05-27-2018 End: 05-27-2018 Lancets (Accu-Ch ek Fastclix Lancet Drum) misc Start: 11-04-2021 End: 11-04-2021 Lancets (Accu-Ch ek Fastclix Lancet Drum) misc Start: 11-04-2021 Blood Sugar Diagnostic (Accu-Chek Guide Test Strips) strip Start: 05-20-2021 End: 09-24-2022 Insulin Syringe-Needle U-100 (Bd Insulin Syringe Ultra-Fine) 1 mL 30 gauge x 1/2 syringe Start: 05-26-2018 End: 05-27-2018 Insulin Syringe-Needle U-100 (Bd Insulin Syringe Ultra-Fine) 1 mL 30 gauge x 1/2 syringe Start: 05-27-2018 End: 05-27-2018 Lancets (Accu-Ch ek Fastclix Lancet Drum) misc Start: 11-04-2021 End: 11-04-2021 Lancets (Accu-Ch ek Fastclix Lancet Drum) misc Start: 11-04-2021 Blood Sugar Diagnostic (Accu-Chek Guide Test Strips) strip Start: 05-20-2021 End: 09-24-2022 Insulin Syringe-Needle U-100 (Bd Insulin Syringe Ultra-Fine) 1 mL 30 gauge x 1/2 syringe Start: 05-26-2018 End: 05-27-2018 Insulin Syringe-Needle U-100 (Bd Insulin Syringe Ultra-Fine) 1 mL 30 gauge x 1/2 syringe Start: 05-27-2018 End: 05-27-2018 Lancets (Accu-Ch ek Fastclix Lancet Drum) [facility] Start: 11-04-2021 End: 11-04-2021 Goals Date Patient Goal Desired Activity /State Functional Status Date Assessment Result Facility 09-30-2019 Are you deaf, or do you have serious difficulty hearing No [facility] Work Phone: 09-30-2019 Are you blind, or do you have serious difficulty seeing, even when wearing glasses No [facility] 09-30-2019 Do you have serious difficulty walking or climbing stairs No [facility] 09-30-2019 Do you have difficul ty dressing or bathing No [facility] 09-30-2019 Because of a physica l, mental, or emotional condition, do you have difficulty doing errands alone such as visiting a physician's office or shopping No [facility] Mental Status Date Assessment Result Facility 01-17-2025 Cognitive function Level Of Cons ciousness Awake [facility] Work Phone: 04-08-2023 Cognitive function Level Of Cons ciousness Follows Commands;Drowsy [facility] Work Phone: 04-08-2023 Cognitive function Voice/Name [facility] Work Phone: 09-30-2019 Because of a physica l, mental, or emotional condition, do you have serious difficulty concentrating, remembering, or making decisions No [facility] Clinical Notes 09-29-2019 to 02-21-2025 Note Date & Type Note Facility 02-21-2025 Note HNO ID: [id number] Author: PHILLY PUGH RT(R) Service: ? Author Type: Technologist Type: Progress Notes Filed: 02/21/2025 08:41 Note Text: Radiology Service Progress Note PATIENT NAME: Kylie Russo DATE OF SERVICE: February 21, 2025 TIME: 8:41 AM PATIENT IDENTITY VERIFICATION COMPLETED USING TWO [...] PATIENT PRESENTS WITH AN IMPLANTABLE OR ATTACHED RETAIL INTERIOR DESIGNER: No RADIOLOGY DEPARTMENT: Mammography PERIPHERAL IV DATA: Not applicable SIGNED BY: RT Chilo(R) February 21, 2025 8:41 AM [facility] 02-15-2025 Note HNO ID: [id number] Author: ALCIRA ANDERSON MD Service: ? Author Type: Physician Type: Progress Notes Filed: 02/15/2025 12:30 Note Text: Chief Complaint Patient presents with: Pain I have communicated my name and active licensure. The patient's identity and physical location were verified at the time of this visit. Either the patient or their legal financial services representative has been informed of the risks and benefits of -- and alternatives to -- treatment through a remote evaluation and consents to proceed with the evaluation remotely. DANUTA Russo is a 79 year old female who is contacted today for a virtual/telemedicine visit. This is an established patient of Dr. Alcira Anderson MD. States Bridger Russo is a 79-year-old female with a history of rheumatoid arthritis, presenting for evaluation of left elbow pain and medication refill. Bridger reports left elbow pain that began in July. The pain is described as sharp and radiates from the elbow down the arm, occurring intermittently, particularly when engaging in activities such as word search puzzles. The pain is occasionally severe but is not constant. She notes that the right elbow is asymptomatic. She has an upcoming appointment with her vp of customer experience strategy, Dr. Grajeda, and plans to discuss these symptoms. Bridger is currently taking multiple medications, including amlodipine, losartan, Lipitor, Plavix, famotidine, Plaquenil, and zolpidem. She reports that her blood pressure is well-controlled with losartan, with a recent reading of 118/55 mmHg. She has been instructed to take amlodipine two hours before zolpidem to avoid potential interactions. She also uses Trelegy for lung issues. Bridger mentions that her blood glucose levels are better controlled, and she is scheduled for an A1c test. She has a continuous glucose monitor (CGM) that was set up in April. She denies experiencing dizziness with her current medication regimen. Past medical history, appointments, medications, allergies reviewed 02/15/2025 Previous Medical History PAST MEDICAL HISTORY Diagnosis Date Abnormal mammogram, unspecified left breast BPPV (benign paroxysmal positional vertigo) 02/11/2015 BPV (benign positional vertigo) CAD (coronary artery disease) Carotid stenosis CARPAL TUNNEL BILATERRAL 08/08/2005 Coronary artery disease involving conf[place] salish coronary artery Dr. Pederson follows regularly; S/P PTCA and stenting at [facility], 2001 Coronary atherosclerosis of unspecified type of vessel, conf[place] sal[place] or graft Disorder of bone and cartilage, unspecified Diverticulosis of colon (without mention of hemorrhage) DKA (diabetic ketoacidoses) 09/28/2019 Esophagitis External hemorrhoids without mention of complication Insomnia Internal hemorrhoids without mention of complication Mammographic microcalcification Mild intermittent asthma without complication (HCC) Adult onset Mild nonproliferative diabetic retinopathy of both eyes ([facility]) 12/06/2018 Other and unspecified hyperlipidemia Other forms of migraine Other psoriasis Postsurgical percutaneous transluminal coronary angioplasty status Rheumatoid arthritis(714.0) RLS (restless legs syndrome) 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 [facility] 01-19-2025 Radiology Diagnostic study note [facility] Imaging Services [address] [place], [place] [id number] Abdomen/Pelvis WITH Contrast MR#: [id number] Acct: [id number] Name: KYLIE RUSSO Rep #: [id number] : 1945 F 79 From: Joselito Zamora MD PCP: Dr. Alcira Anderson MD Status: REG C LI Study:Abdomen/Pelvis WITH Contrast Date of Ex am: 01/17/25 Exam# [id number] Ordering Dr: Federico Dyer DO PROCEDURE: ABDOMEN/PELVIS WITH CONTRAST 01/17/2025 REASON FOR EXAM: L SIDE SOFT TISSUE MASS, POSSBIBLE HERNIA TECHNIQUE: Procedure Code: CTABDPELW Modality: CT Procedure: ABDOMEN/PELVIS WITH CONTRAST Coronal and Sagittal reconstruction series were provided. CONTRAST: Isovue 370 VOLUME: 100 mL One or more dose reduction techniques were used (e.g., Automated exposure control, adjustment of the mA and/or kV according to patient size, use of iterative reconstruction technique. RADIATION DOSE SUMMARY: CTDlvol: 39.02 mGy DLP: 887.48 mGycm COMPARISON: 2019 FINDINGS: Lung bases: Chronic interstitial changes with honeycombing in the periphery of both lung hurt and minimal dependent atelectasis Liver: Normal size. No mass. Gallbladder: Unremarkable Spleen: Normal size. Pancreas: Normal size without evidence of mass surrounding inflammation or ductal dilation. Adrenals: Unremarkable Kidneys: No obstructive uropathy or suspicious solid renal lesion, there are nonobstructing stones in both kidneys. Bladder: Unremarkable Reproductive Organs: Uterus is present, the endometrium can not be accurately evaluated with CT. No suspicious cystic mass or free fluid in the pelvis. Bowel: No CT evidence of obstruction. Retained stool noted throughout the entirety of the colon with a few scattered colonic diverticula but no CT evidence of acute diverticulitis. Appendix: Normal appendix seen on coronal recon images 42 through 46 Lymph nodes: No suspicious mesenteric or retroperitoneal lymphadenopathy Vasculature: Peripheral calcifications in the abdominal aorta without aneurysm Peritoneum / Retroperitoneum: No free fluid or air Bones: Degenerative bony changes No CT evidence of hernia CT/Abdomen/Pelvis WITH Contrast IMPRESSION: No suspicious solid organ abnormality, nonobstructing renal stones Uterus is present, the endometrium can not be accurately evaluated with CT. Retained stool throughout the colon No free intraperitoneal fluid, air, or suspicious adenopathy, normal appendix visualized Reading Location: [id number] CC: Dr. Alcira Anderson MD; Karl Friend, DO ~ Sanitation Truck Driver: Signed [facility] 01-10-2025 Evaluation note Diagnosis Onset Date Resolution Carotid stenosis acute Septembe r 2024 9:58am Aortic stenosis chronic January 10, 2025 9:58am Essential (primary) hypertension chronic January 10, 2025 9:58am Hyperlipidemia chronic January 10, 2025 9:58am History of coronary artery stent placement June 26, 2000 resolved January 10, 2025 9:58am [facility] Work Phone: [phone] 711-793509-23-2025 Progress [facility] [place] [address] OFFICE VISIT Date of Service: 01/10/25 MR#: [id number] Acct: [id number] Name: KYLIE RUSSO Rep #: [id number] : 1945 Provider: Dr. Aretha Seaman MD Age/Sex: 79/F Location: [facility] Status: Signed HPI HPI History of Present Illness Details: KYLIE RUSSO, is a 79 F who presents to the office today for a cardiovascularfollow-up visit. She is a lady with a history of mild coronary artery disease hypertension previous cerebrovascular accident hyperlipidemia obstructive sleep apnea diabetes mellitus. She denies any chest pain or shortnes s breath or paroxysmal nocturnal dyspnea or pedal edema she has had no neck arm or jaw discomfort suggest angina. She has been compliant with all her medications. Intake Vital Signs 11/16/23 10:29 05/17/24 10:10 01/10/25 09:59 Height 5 ft 2 in 5 ft 2 in 5 ft 2 in Weight: 143 lb BMI 26.2 BP 110/55 L Blood Pressure Location Lt brachial Position Sitting Respiration 16 Pulse 60 Pulse Source Monitor Intake Visit Reasons: 1 Y FU Extract Operator Required: No Is patient in pain?: No Allergies amitriptyline Allergy (Verified 01/10/25 10:04) Other cefadroxil (Cefadroxil) Allergy (Verified 01/10/25 10:04) Hives ephedrine Allergy (Verified 01/10/25 10:04) HEART RACES erythromycin estolate (From Ilosone) Allergy (Verified 01/10/25 10:04) Angioedema, HEART RACING iodine Allergy (Verified 01/10/25 10:04) Hives, ITCHING levofloxacin Allergy (Verified 01/10/25 10:04) Unknown nortriptyline (Nortriptyline) Allergy (Verified 01/10/25 10:04) Unknown oxycodone (Oxycodone) Allergy (Verified 01/10/25 10:04) CONFUSION oxycodone HCl (From Percocet) Allergy (Verified 01/10/25 10:04) CONFUSION Sulfa (Sulfonamide Antibiotics) Allergy (Verified 01/10/25 10:04) Rash pregabalin (From Lyrica) Adverse Reaction (Severe, Verified 01/10/25 10:04) Vomiting hydrochlorothiazide Adverse Reaction (Intermediate, Verified 01/10/25 10:04) Hypotension acetaminophen (From Percocet) Adverse Reaction (Verified 01/10/25 10:04) Other aspirin (From Aggrenox) Adverse Reaction (Verified 01/10/25 10:04) Vomiting cephalexin Adverse Reaction (Verified 01/10/25 10:04) Nausea/Vom/Diarrhea doxycycline Adverse Reaction (Verified 01/10/25 10:04) Nausea/Vom/Diarrhea duloxetine HCl (From Cymbalta) Adverse Reaction (Verified 01/10/25 10:04) HEADACHE, STOMACH ACHE Medications ?Medication ?Instructions ?Recorded ?Confirmed ?Type atorvastatin 40 mg tablet 40 mg PO QHS cholesterol 01/0301/10/25 History clopidogrel 75 mg tablet 75 mg PO DAILY anti platelet 06/27/15 01/10/25 History albuterol sulfate 2.5 mg/3 mL 2.5 mg inhalation Q6H HI N 03/30/17 01/10/25 History (0.083 %) solution for nebulization Bronchodialation diclofenac sodium 1 % topical gel 2 g topical BID PRN 03/30/17 01/10/25 History (Voltaren) Pain/Inflammation multivitamin 1 tab PO QAM vitamin 7 01/10/25 History amlodipine 5 mg tablet 5 mg PO DAILY #90 tabs 09/2201/10/25 Rx lactobacillus combination no.9 4 4,000 mmu cells PO DA PORSCHE supplement 10/14/18 01/10/25 History billion cell capsule (Adult 50 Plus Probiotic) biotin 1 mg capsule 1 mg PO DAILY 10/14/1901/10 History aspirin 81 mg tablet,delayed 81 mg PO DAILY 07/05/21 0 01/10/25 History release (Adult Low Dose Aspirin) lancets (Accu-Chek Fastclix Lancet #200 ea 11/04/21 Rx Drum) cholecalciferol (vitamin D3) 125 125 mcg PO DAILY 12/1001/10/25 History mcg (5,000 unit) tablet Humalog U-100 Insulin 100 unit/mL 100 unit subcut QDAY #90 mL 03/16/23 01/10/25 Rx subcutaneous solution (insulin lispro) albuterol sulfate 90 mcg/actuation 1 inh inhalation Q4 H PRN shortness 04/06/23 01/10/25 History aerosol inhaler of breath or wheezing clonazepam 1 mg tablet 1 mg PO QHS 11/16/23 5 History nitroglycerin 0.4 mg sublingual 0.4 mg sublingual Q5-1 5M PRN chest 11/26/23 Rx tablet (Nitrostat) pain #25 tabs zolpidem 10 mg tablet (Ambien) 10 mg PO QHS 01/18/24 0 01/10/25 History losartan 100 mg tablet See Rx Instructions .Route 0 05/17/24 01/10/25 Rx .COMPLEX #90 tabs NaCl 0.9% 1,000 ml IV BOLUS ONCE #1,00 0 mL 01/03/25 Rx diphenhydramine HCl 25 mg capsule 25 mg PO ONCE #1 cap 01/03/25 01/10/25 Rx (Benadryl) famotidine 40 mg tablet 40 mg PO ONCE #1 TAB 01/03/2 5 01/10/25 Rx prednisone 20 mg tablet 40 mg (2 x 20 mg) PO ONCE #2 tabs 01/03/25 01/10/25 Rx fluticasone fur. 200 mcg-umeclid 1 ea inhalation QDAY 01/10/25 01/10/25 History 62.5 mcg-vilant 25 mcg inhalat.powder (Trelegy Ellipta) hydroxychloroquine 200 mg tablet 300 mg PO QDAY 01/10/25 History pramipexole 1 mg tablet 2 mg PO QHS 01/10/25 5 History Ejection fraction %: 65 Have you fallen in the past year?: No PFSH Medical History (Updated 01/10/25 @ 10:[address] Leon Seaman MD) Aortic stenosis Wears glasses Wears dentures Insulin dependent diabetes mellitus High cholesterol History of steroid therapy Back pain Dietary restriction Gastric reflux History of edema CPAP (continuous positive airway pressure) dependence Non-smoker History of pain when walking Hypertension History of stress test History of echocardiogram Cardiology follow-up encounter Fall RLS (restless legs syndrome) Insomnia Esophagitis Diverticulosis of colon Coronary artery disease involving confederated sal[place] coronary artery Carpal tunnel syndrome, bilateral Carotid stenosis CAD (coronary artery disease) BPPV (benign paroxysmal positional vertigo) Chronic constipation Insulin pump titration Presence of insulin pump Obesity Vitamin D deficiency Gastroenteritis Polymyalgia rheumatica Chronic rheumatic arthritis Diabetic neuropathy Type 1 diabetes mellitus COPD (chronic obstructive pulmonary disease) Essential (primary) hypertension Atherosclerosis of coronary artery of confederated salish heart without angina pectoris History of stroke Fatty liver Hyperlipidemia Incontinence Chronic neck and back pain Difficulty balancing Surgical History History of esophagogastroduodenoscopy (EGD) History of left heart catheterization (07/01/05) History of coronary artery stent placement (06/26/00) nasal growth removal H/O lumpectomy axillary cyst removal bilat hand surgery H/O shoulder surgery H/O breast biopsy H/O: Family History Father , age 76 No problems noted. Mother , Age 74 Breast cancer Thyroid disorder Heart disease Valvular heart disease Brother Heart disease, Onset Age: 52 Heart valve/murmur Social History Smoking Status: Never smoker alcohol intake: never substance use type: does not use caffeine: No ROS Const Const: Negative for fatigue, weakness, daytime sleepiness or difficulty sleeping ENT ENT: Positive for dizziness; Negative for Nosebleed/epistaxis Cardio Chest Pain: No Palpitations: No Edema: None Resp Respiratory: Negative for SOB with activity, SOB at rest, SOB orthopnea\SOB lying down or Cough GI GI: Negative nausea, vomiting or heartburn Neuro Neuro: Positive for dizziness, lightheadedness and near syncope; Negative for weakness Endo Endo: Negative for fatigue Cardiology Exam Const Appearance: cooperative, comfortable, no acute distress, well developed and frail appearing Orientation: alert, awake and oriented x3 Limitations: physical limitations (needs assistance walking ) Head Head: normal to inspection Ears: hearing grossly normal bilaterally Nose: external nose normal Face and Sinus: face symmetric Mouth: oral mucosae normal, lip normal and moist mucous membranes Eyes General: appearance normal, both eyes and all related structures Eyelids: eyelids normal Conjunctivae: conjunctivae normal Pupils: PERRL EOM: EOM intact bilaterally Neck Neck: normal visual inspection and trachea midline; Negative no JVD Carotids: Negative bruit Chest Chest inspection: normal inspection of the chest Auscultation: Bilateral: Clear to Auscultation Cardio Palpation: normal PMI Rate: regular rate Rhythm: regular rhythm Heart sounds: S1 normal, S2 normal and murmur; Negative rub or gallop Murmur: Grade 2/6 and soft GI GI: soft, no hepatosplenomegaly and bowel sounds present Neuro General: patient alert, patient awake, patient oriented x3 and CN's II-XI intactbilaterally Extremities Pulses: Normal: Right Posterior Tibial Pulse, Left Posterior Tibial Pulse, RightRadial Pulse and Left Radial Pulse Lower Extremity Edema: None: Bilateral Psych Psychological: normal affect Supplemental Info Supplemental Information Echocardiogram 12/04/22 ([facility] Conclusion Left ventricle: Mild concentric left ventricular hypertrophy. Mild diastolic dysfunction is present(impaired relaxation pattern). The left ventricular systolic function is normal. The left ventricular ejection fraction is within the normal range. There is normal LV segmental wall motion. LVEF is 65-70%. Right ventricle: The right ventricle is normal size. The right ventricular systolic function is normal. Atria: Left atrium is mildly dilated. Aortic Valve: Aortic valve is trileaflet. Moderate aortic valve sclerosis. Aortic valve leaflets are sclerotic with decreased opening. Mild aortic stenosis. Calculated DIMITRIS by the continuity equation is 1.58cm2. Peak aortic valve gradient is 21.58 mmHg. Highest mean aortic valve gradient is 11.6mmHg. Noaortic regurgitation is present. Mitral valve: Moderate mitral annular calcification. Mitral valve leaflets are mildly thickened. Trace mitral regurgitation. No evidence of mitral valve stenosis. Tricuspid Valve: Mild tricuspid regurgitation. No pulmonary hypertension. Echocardiogram 06/22/2019: Left ventricular systolic function is normal. The estimated ejection fraction is 60 %. There is moderate mitral annular calcification. Extension of the mitral annular calcification onto the mitral valve leaflets. Mild (1+) mitral valve insufficiency. Trivial tricuspid valve insufficiency. Mild focal aortic valve calcification. Right ventricular systolic pressure estimated to be 33 mmHg. Diastolic function is indeterminate. Pharmacologic myocardial perfusion stress test. 11/26/23 Conclusion: Normal pharmacologic myocardial perfusion stress test. Preserved ejection fraction. CT Chest 08/14/23 ([facility]) Impression Heavy coronary calcification. Mild to moderate aortic valve calcification. Carotid Ultrasound 11/12/23 Right side: Common Carotid: Plaque visualized without evidence of hemodynamically significant stenosis. Internal Carotid: 20-39% stenosis. Vertebral artery: Patent and antegrade flow noted. Subclavian artery: Plaque visualized without evidence of hemodynamically significant stenosis. Left side: Common Carotid: Plaque visualized without evidence of hemodynamically significant stenosis. Internal Carotid: 60-79% stenosis. External Carotid: Elevated velocities and plaque noted. Vertebral artery: Patent and antegrade flow noted. Subclavian artery: Patent. Diagnostics: Electrocardiogram Echocardiogram Transesophageal Echocardiogram Stress Test Stress Test Nuclear Medicine Chest X-Ray Abdomen/Pelvis CT Pulmonary: Pulmonary Function Test Pulmonary Exercise Test Past Visits: Cardiology Visit Today Assessment and Plan Assessment and Plan (1) History of coronary artery stent placement: Status: Resolved Comment: PTCA and JUANY of proximal RCA 06/26/2000 @ [facility] per Dr. Ada Garcia Plan: Stable, pt does not have any symptoms of angina. Stress test in 2023 was negative for ischemia. Will continue with medical management. (2) Essential (primary) hypertension: Status: Chronic Plan: Blood pressure is well controlled on current medications, we do not recommend any changes at this time. (3) Hyperlipidemia: Status: Chronic Qualifiers: Hyperlipidemia type: pure hypercholesterolemia Qualified Code(s): E78.00 - Pure hypercholesterolemia, unspecified; E78.0 - Pure hypercholesterolemia Plan: Managed by PCP, will continue with current statin. Will obtain lipids from PCP. (4) Aortic stenosis: Status: Chronic Comment: mild Plan: This is mild will continue to monitor with periodic echos. I have asked her to repeat her echocardiogram and depending on the findings further recommendations will be made. (5) Carotid stenosis: Status: Acute Plan: She does have evidence of carotid disease her last carotid ultrasound demonstrated right sided internal carotid plaque of 20 to 39% in the left-sided 60 to 79%. She continues to follow-up with the vascular service in [place]. Orders: Orders Echo Complete Today I35.0 - Nonrheumatic aortic (valve) stenosis Plan Details Follow Up: 1 Year (mmm) Coding Level of Care Code Off vis,est,level 4 Diagnoses History of coronary artery stent placement Z95.5 Essential (primary) hypertension I10 Pure hypercholesterolemia E78.00; E78.0 Hyperlipidemia type: pure hypercholesterolemia Aortic stenosis I35.0 Carotid stenosis I65.29 Coding Level of Care Code Off vis,est,level 4 Diagnoses History of coronary artery stent placement Z95.5 Essential (primary) hypertension I10 Pure hypercholesterolemia E78.00; E78.0 Hyperlipidemia type: pure hypercholesterolemia Aortic stenosis I35.0 Carotid stenosis I65.29 Clinical Quality Measures Falls Risk Screening/Assistive Devices Have you fallen in the past year?: No Cardiac Ejection fraction %: 65 01/10/25 1031 D> Date _ Leon Seaman MD Cosigner Signature: Date (if applicable) CC: Dr. Alcira Anderson MD ~ [facility]09-15-2025 Telephone encounter Note* Telephone Encounter - Manuela Mejia LPN - 01/02/2025 11:52 AM EDT Received call from [employer] requesting office visit. Faxed. Manuela Mejia LPN [facility]09-15-2025 Miscellaneous Notes* Telephone Encounter - Manuela Mejia LPN - 01/02/2025 11:52 AM EDT Received call from [employer] requesting office visit. Faxed. Manuela Mejia LPN documented [facility]25 NoteHNO ID: [id number] Author: EVA NIELSEN MD Service: ? Author Type: Physician Type: Progress Notes Filed: 01/23/2025 04:02 Note Text: [facility] Follow up visit Note- virtual Virtual Visit (Audio/Visual)I have discussed the nature of this visit with the patient which will occur via Distance Health (Phone, Virtual Visit) and she agrees to proceed with this interaction. I have communicated my name and active licensure. The patient's identity and physical location were verified at the time of this visit. Either the patient or their legal financial services representative has been informed of the risks and benefits of -- and alternatives to -- treatment through a remote evaluation and consents to proceed with the evaluation remotely. History of present illness: This is a 79 year old female with history of type 1 diabetes, complicated by mild nonproliferative retinopathy of bilateral retina, Class I obesity, 3 strokes (2009, 2012), Bilateral carotid artery stenosis, CAD, HLD, HTN, SOLE, GERD, RA, Gastroparesis Her Raheel could not accompany her today due to recent shoulder surgery She was following Dr. Palm at [facility] in the recent past, last appointment in April 2023. Prior to that, she was following with endocrinology at [facility], last appointment in October 2020 with Princess Lim APRN. [employer] TECHNICIAN Established care with me in 05/2023 LV with me was 09/2024 Documentation from previous note of previous visit [...] -Duration of insulin use: Started pump almost 27 years ago, when she was following with Dr. Mancilla Uses pump on the abdomen, and CGMS on her thigh -Hospitalizations for DKA: when she was on a different pump which was not automated Known complications include: hypertension, retinopathy, peripheral neuropathy and cardiovascular disease (CAD s/p PTCA) , CVA, gastroparesis on gastric emptying study following Dr. Dyer at [facility] Exacerbating factors include: obesity Last NEIL/Retina Eval: May 02, 2024, reports left eye is having blurry vision, right eye is alright Nephropathy -- Yes STEFFANY/ARB Use -- Yes She was following with podiatry, Dr. Zhao Other -- Wheelchair bound due to stroke Current diabetes regimen is as follows: Basal insulin for back up: lantus Glucagon: - Humalog via Medtronic 780 G pump plus [...] days Changing sensor every 7 days CGM: No CGM or pump data available today . Symptoms/concerns today Reports she is doing okay, could be better if Raheel was with her But she could achieve 100% in target sugar yesterday, and she is doing well overall with her BG except for 2 lows in the last week. We could not download her pump data due to being virtual. Asks when the new sensor for medtronic will be up. She also reports that she was told by her insurance that she cannot change her pump to Tandem until 2026 (which will be 5 years since she started Medtronic 780G) She however reports that her sugars are much better controlled with the regimen she was given, as compared to glycemic control in the past. Denied any hypoglycemic episodes Her 's shoulder surgery was on 12/02/2024 and recovery was complicated by use of a restrictive brace, impacting sleep. She is worried that his recovery is expected to take 6 months, with potential to return to light work in February. -Polyuria: no -Polydipsia: no -Weight changes: she has lost considerable amount of weight with the help of diet in the past, and has maintained stable weight since Intermittently she also received steroid injections in her joints . Lifestyle -Exercise: no routine exercise due to fall leading to mobility issues -Diet: reports carb consistent diet She has seen Nutrition services at [facility], and reports that it was not very beneficial, she saw dietitian at [facility] who started her on a gastroparesis nutritional plan She has seen endocrine dietitian and diabetic education few times now ROS: As per HPI Past Medical History PAST MEDICAL HISTORY Diagnosis Date Abnormal mammogram, unspecified left breast BPPV (benign paroxysmal positional vertigo) 02/11/2015 BPV (benign positional vertigo) CAD (coronary artery disease) Carotid stenosis CARPAL TUNNEL BILATERRAL 08/08/2005 (more content not included)...[facility]08-13-2025 NoteHNO ID: [id number] Author: CANDACE ALCARAZ MA Service: ? Author Type: Senior Analyst Developer Type: Progress Notes Filed: 11/30/2024 10:53 Note Text: POPULATION HEALTH NAVIGATION OUTREACH Action/FYI Chart review only Reason for Outreach Care Gap/HCC or Scheduling Wellness Visits Care Gaps due: N/A Patient Contacted: Unable or unnecessary to reach patient: Chart Review only Navigation Signature: Candace Alcaraz MA November 30, 2024 10:52 [facility]08-13-2025 History of Present illness Narrative* Candace Alcaraz MA - 11/30/2024 10:52 AM EDT POPULATION HEALTH NAVIGATION OUTREACH Action/FYI Chart review only Reason for Outreach Care Gap/HCC or Scheduling Wellness Visits Care Gaps due: N/A Patient Contacted: Unable or unnecessary to reach patient: Chart Review only Navigation Signature: Candace Alcaraz MA November 30, 2024 10:52 AM documented in this encounterBarnesville Hospital08-13-2025 NotePatient Outreach (NETNAV) KYLIE RUSSO ([id number]) 1945 F Date Time Provider Department 11/30/24 [...] Comments: vertigo Date Reviewed: 11/29/2024 Reviewed by: Haumesser, Akil L, MA - Fully Assessed Reason for Visit: Population Health Navigation Outreach [3910] Cmt: [place]/Workbench/ACO Prescriptions as of 11/30/2024 - nystatin (MYCOSTATIN) [...] a day. Rinse mouth after use. - llhyahkboug-akjsldery-slnsiims (TRELEGY ELLIPTA) 100-62.5-25 mcg inhalation powder Inhale [...] to affected area as needed (pain). - lidocain-me.xupbnbo-quxx-vhoib 0.5-20-0.035-5 % ptmd Apply 1 Each to [...] - RED For ambulation - nitroglycerin (NITROLINGUAL) (more content not included)...[facility]08-12-2025 NoteHNO ID: [id number] Author: ALCIRA ANDERSON MD Service: ? Author Type: Physician Type: Progress Notes Filed: 11/29/2024 17:39 Note Text: Reason for Visit Follow up chronic conditions HPI Bridger Russo is a 79-year-old female with a history of osteoarthritis, T2DM, and pulmonary issues, presenting for follow-up. Bridger has been following up with rheumatology and reports recent x-rays of her hands showing osteoarthritis, with no evidence of inflammatory arthritis. She also has been following up with endocrinology and a diabetic nurse for issues with her insulin pump and CGM. She reports a recent incident where her Medtronic pump malfunctioned, and she was unable to reach [employer] service for assistance. She eventually resolved the issue herself. Her most recent HbA1c is 6.7%. She denies any issues with her blood pressure at home, attributing any elevations to stress related to her 's upcoming surgery. Bridger reports difficulty with ambulation, using a chair [...] confirmed. She denies any changes in taste. Bridger has a history of fatty liver and [...] spray fluticasone (FLONASE) 50 mcg/actuation nasal spray mcahmrujqbt-sjovloump-vmjknwrl (TRELEGY ELLIPTA) 100-62.5-25 mcg inhalation powder famotidine (PEPCID) 20 mg tablet guaiFENesin (MUCINEX) 600 mg 12 hr tablet neomycin 500 mg tablet metoclopramide HCl (REGLAN) 5 mg tablet blood sugar diagnostic (ACCU-CHEK GUIDE TEST STRIPS) test strip diclofenac sodium (VOLTAREN ARTHRITIS PAIN TOPICAL) lidocain-me.umnemci-lzjk-ynwpl 0.5-20-0.035-5 % ptmd traMADol (ULTRAM) 50 mg [...] deformities, no skin discoloration, no edema. NEURO: Awake (more content not included)...[facility]08-12-2025 History of Present illness Narrative* Alcira Anderson MD - 11/29/2024 5:38 PM EDT Reason for Visit Follow up chronic conditions HPI Bridger Russo is a 79-year-old female with a history of osteoarthritis, T2DM, and pulmonary issues, presenting for follow-up. Bridger has been following up with rheumatology and reports recent x-rays of her hands showing osteoarthritis, with no evidence of inflammatory arthritis. She also has been following up with endocrinology and a diabetic nurse for issues with her insulin pump and CGM. She reports a recent incident where her Medtronic pump malfunctioned, and she was unable to reach [employer] customer service for assistance. She eventually resolved the issue herself. Her most recent HbA1c is 6.7%. She denies any issues with her blood pressure at home, attributing any elevations to stress related to her 's upcoming surgery. Bridger reports difficulty with ambulation, using a chair [...] confirmed. She denies any changes in taste. Bridger has a history of fatty liver and reports that her liver enzymes are always elevated. She also mentions a recent decrease in her red blood cell count, but states that her hemoglobin is normal.She has an upcoming CT scan with contrast [...] mg tablet Infusion Set for Insulin Pump (OneTouchEMRTRONIC EXT INFUSION SET 23) iset amLODIPine (NORVASC) [...] spray fluticasone (FLONASE) 50 mcg/actuation nasal spray riileidqehx-bddgqytak-eayhvean (TRELEGY ELLIPTA) 100-62.5-25 mcg inhalation powder famotidine (PEPCID) 20 mg tablet guaiFENesin (MUCINEX) 600 mg 12 hr tablet neomycin 500 mg tablet metoclopramide HCl (REGLAN) 5 mg tablet blood sugar diagnostic (ACCU-CHEK GUIDE TEST STRIPS) test strip diclofenac sodium (VOLTAREN ARTHRITIS PAIN TOPICAL) lidocain-me.hxoovhr-toif-hjdoi 0.5-20-0.035-5 % ptmd traMADol (ULTRAM) 50 mg [...] kg (146 lb 9.6 oz) BMI 26.81 kg/m GENERAL: NAD, alert and oriented. SKIN: Unremarkable, [...] due to stress related to 's upcoming surgery.Home blood pressure readings reportedly within normal limits. [...] swish and swallow. - Follow up with soil fertility specialist as scheduled. Voice recognition software was used to compose this office note. Please excuse any unintended typographical errors. Recording using ambient AI software for draft documentation of the visit was discussed with the patient/authorized financial services representative; all questions welcomed and answered. Patient/authorized financial services representative agreed to proceed Alcira Anderson MD [1] Social History Tobacco Use Smoking status: Never Smokeless tobacco: Never Vaping Use Vaping status: Never Used Substance Use Topics Alcohol use: No Drug use: No documented in this encounterBarn[facility] Hospital07-28-[facility]25 Telephone encounter Note * Telephone Encounter - Magalys Mera RN - 11/14/2024 3:47 PM EDT Pt uses Guardian 4 sensors with her Medtronic insulin pump. She will need to reach out to the company directly for any troubleshooting assistance. Magalys Mera RN November 14, 2024 3:48 PM [facility]07-28-2025 Miscellaneous Notes* Telephone Encounter - Magalys Mera RN - 11/14/2024 3:47 PM EDT Pt uses Guardian 4 sensors with her Medtronic insulin pump. She will need to reach out to the company directly for any troubleshooting assistance. Magalys Mera RN November 14, 2024 3:48 PM * Telephone Encounter - Manuela Mejia LPN - 11/14/2024 10:06 AM EDT Patient calling in stating her sensor is saying sensor failure. She is not sure what to do. She did try to call [facility] but there were 4 people ahead of her but she said that could take up to 2 hour wait and her has an appt she has to go to. She is requesting a callback. Manuela Mejia LPN documented in this encounterBarnesville Hospital07-28-2025 Telephone encounter Note * Telephone Encounter - Maunela Mejia LPN - 11/14/2024 10:06 AM EDT Patient calling in stating her sensor is saying sensor failure. She is not sure what to do. She did try to call [facility] but there were 4 people ahead of her but she said that could take up to 2 hour wait and her has an appt she has to go to. She is requesting a callback. Manuela Mejia LPN [facility]07-28-2025 Telephone encounter Note* Telephone Encounter - Alexandria Garcia - 11/14/2024 10:04 AM EDT Prescription Refill Information The patient has been identified by name and date of : Yes Caregiver verified no other encounters exist for this prescription request: Yes Caregiver confirmed with patient/requestor that no other refills are due, in the near future, with this provider at this time: Yes The last office visit in the department: 09/05/24 Does the patient have a future office visit with this provider/department: Yes 12/06/24 Requested Prescriptions Pending Prescriptions Disp Refills pramipexole (MIRAPEX) 1 mg tablet 180 tablet 1 Sig: Take 2 tablets by mouth daily at bedtime. Alexandria Garcia November 14, 2024 10:04 AM [facility]07-28-2025 Miscellaneous Notes* Telephone Encounter - Alexandria Garcia - 11/14/2024 10:04 AM EDT Prescription Refill Information The patient has been identified by name and date of : Yes Caregiver verified no other encounters exist for this prescription request: Yes Caregiver confirmed with patient/requestor that no other refills are due, in the near future, with this provider at this time: Yes The last office visit in the department: 09/05/24 Does the patient have a future office visit with this provider/department: Yes 12/06/24 Requested Prescriptions Pending Prescriptions Disp Refills pramipexole (MIRAPEX) 1 mg tablet 180 tablet 1 Sig: Take 2 tablets by mouth daily at bedtime. Alexandria Garcia November 14, 2024 10:04 AM documented in this encounterBarnesville Hospital07-24-2025 History of Present illness Narrative* Alma Rosa Sheriff RT(R) - 11/10/2024 9:30 AM EDT Radiology Service Progress Note PATIENT NAME: Kylie Russo DATE OF SERVICE: November 10, 2024 TIME: 9:59 AM PATIENT IDENTITY VERIFICATION COMPLETED USING TWO (2) IDENTIFIERS: Name and Date of confirmedby patient verbally. FALL SCREENING: Has the patient had 2 falls in the last year or 1 fall with injury or currently using an Ambulatory Assistive Device (Walker, Cane, Wheelchair, Crutches, etc.)? Yes, Patient High Riskfor Falls What interventions were put in place to prevent falls during this visit? Increased Observations by Caregivers PATIENT GENDER DATA: Assigned female at . status: : No status:NO. PATIENT RELEVANT IMPLANT DATA REVIEWED: Not Applicable PATIENT PRESENTS WITH AN IMPLANTABLE OR ATTACHED RETAIL INTERIOR DESIGNER: Yes Freestyle Xander, INSULIN PUMP REMOVED DURING EXAM RADIOLOGY DEPARTMENT: General X-ray: Exam(s) Completed: Upper Extremity X- Ray(s): Hand, bilateral PERIPHERAL IV DATA: Not applicable SIGNED BY: RT Paul(Federico) November 10, 2024 9:59 AM documented in this encounterBarnesville Hospital07-24-2025 NoteHNO ID: [id number] Author: ALMA ROSA SHERIFF RT(R) Service: ? Author Type: Technologist Type: Progress Notes Filed: 11/10/2024 10:03 Note Text: Radiology Service Progress Note PATIENT NAME: Kylie Russo DATE OF SERVICE: November 10, 2024 [...] PATIENT PRESENTS WITH AN IMPLANTABLE OR ATTACHED RETAIL INTERIOR DESIGNER: Yes Freestyle Xander, INSULIN PUMP REMOVED DURING EXAM RADIOLOGY DEPARTMENT: General X-ray: Exam(s) Completed: Upper Extremity X-Ray(s): Hand, bilateral PERIPHERAL IV DATA: Not applicable SIGNED BY: RT Paul(R) November 10, 2024 9:59 [facility]07-20-2025 NoteHNO ID: [id number] Author: JONAS RED APRN.CROP AND SOIL TECHNICIAN Service: ? Author Type: Nurse Practitioner Type: [...] TUNNEL BILATERRAL 08/08/2005 Coronary artery disease involving confederated salish coronary artery Dr. Pederson follows regularly; S/P PTCA and stenting at [facility], 2001 Coronary atherosclerosis of unspecified type of vessel, confederated salish or graft Disorder of bone and cartilage, unspecified Diverticulosis of colon (without mention of hemorrhage) DKA (diabetic ketoacidoses) 09/28/2019 Esophagitis External hemorrhoids without mention of complication Insomnia Internal hemorrhoids without mention of complication Mammographic microcalcification Mild intermittent asthma without complication (HCC) Adult onset Mild nonproliferative diabetic retinopathy of both eyes ([facility]) 12/06/2018 Other and unspecified hyperlipidemia Other forms of migraine Other psoriasis Postsurgical percutaneous transluminal coronary angioplasty status Rheumatoid arthritis(714.0) RLS (restless legs syndrome) 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 Thoracic or lumbosacral neuritis or radiculitis, [...] in the nose two times a day. khtlqrouggn-yyoszbogw-rrabuvbe (TRELEGY ELLIPTA) 100-62.5-25 mcg inhalation powder Inhale [...] once daily. Infusion Set for Insulin Pump (CultureAlley EXT INFUSION SET 23) iset 1 Each [...] directed in Insulin pump up to 110 un (more content not included)...[facility]07-20-2025 History of Present illness Narrative* Jonas Red, CARLOS EDUARDO.CROP AND SOIL TECHNICIAN - 11/06/2024 10:44 AM EDT Subjective HPI Nontoxic-appearing 79-year-old female presents urgent [...] TUNNEL BILATERRAL 08/08/2005 Coronary artery disease involving confederated salish coronary artery Dr. Pederson follows regularly; S/P PTCA and stenting at [facility], 2000 Coronary atherosclerosis of unspecified type of vessel, confederated salish or graft Disorder of bone and cartilage, [...] Oxycodone, Percocet [Oxycodone-Acetaminophen], Sulfa (Sulfonamide Antibiotics), Aggrenox [Aspirin- Dipyridamole], Cephalexin (Bulk), Duricef [Cefadroxil], and Nortriptyline MEDICATIONS esomeprazole (NEXIUM) 40 mg capsule Take 40 mg by mouth daily before breakfast. sodium chloride (SALINE MIST) 0.65 % nasal spray Use 1 spray in the nose two times a day. mncjogqybcy-uyxsaptvq-bdawpxco (TRELEGY ELLIPTA) 100-62.5-25 mcg inhalation powder Inhale 1 puff asinstructed once daily. zolpidem (AMBIEN) 10 mg Take [...] once daily. Infusion Set for Insulin Pump (MEDTRONIC EXT [...] mouth three times a day as needed forcough. (Patient not taking: Reported on 09/20/2024) azelastine [...] (pain). (Patient not taking: Reported on 09/20/2024) lidocain-me.ldmdryz-gqiy-mlzft 0.5-20-0.035-5 % ptmd Apply 1 Each to [...] No BP 128/74 Pulse 66 Temp 36.2 C (97.2 F) Resp 20 Wt 66 kg (145 lb 8.1 oz) SpO2 99% BMI 26.61 kg/m Review of Systems Constitutional: Negative for chills, [...] of care. This note was generated using Zokos software. It may contain errors in wording, punctuation, or spelling. Jonas Red APRN.CROP AND SOIL TECHNICIAN documented in this encounterBarnesville Hospital07-17-2025 Telephone encounter Note * Telephone Encounter - Flori Rodriguez - 11/03/2024 9:58 AM EDT 1 yr f/u for Carotid stenosis, asymptomatic, bilateral (US prior) Spoke with pt regarding US and f/u appt Pt scheduling US at [facility]. Pt stated Manuela told her she may not need to come in if US results are good. [facility]07-17-2025 Miscellaneous Notes* Telephone Encounter - Flori Rodriguez - 11/03/2024 9:58 AM EDT 1 yr f/u for Carotid stenosis, asymptomatic, bilateral (US prior) Spoke with pt regarding US and f/u appt Pt scheduling US at [facility]. Pt stated Manuela told her she may not need to come in if US results are good. documented in this encounterBarnesville Hospital07-09-2025 Telephone encounter Note * Telephone Encounter - Alberto Argueta APRN.CNP - 10/26/2024 9:35 AM EDT The patient did not log in for her virtual appointment scheduled with me at 930. I left a message reminded her of the appointment. Alberto Argueta APRN.TIM [facility] Work Phone: [phone] Miscellaneous Notes* Telephone Encounter - Alberto Argueta APRN.CNP - 10/26/2024 9:35 AM EDT The patient did not log in for her virtual appointment scheduled with me at 930. I left a message reminded her of the appointment. Alberto Argueta APRN.CNP documented in this encounterBarnesville Hospital07-09-2025 History of Present illness Narrative* Alberto Argueta APRN.CNP - 10/26/2024 9:30 AM EDT Follow up for seropositive RA HPI: To review, Kylie Russo is a 79 year old female *Re: BMD - Around '00, broke L wrist after slipping on ice and falling down a sloped ground - Around '09, broke R foot after foot got stuck [...] the certain PIPs that hasn't gone on forvery long - In spring, decreased HCQ to one daily per Dr. Clinton Farrar - In July, diagnosed with ILD. Sees Dr. 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 - In Jan, advised to resume HCQ once daily per vp of customer experience strategy (but didn't say why). - In Feb, reported that hands had become swollen off HCQ. Had been on HCQ for less than a month, hadn't kicked back in yet. - In Dec, reported stable joints. Interim dx of gastroparesis - at [facility], reports joints are doing well. With some [...] TUNNEL BILATERRAL 08/08/2005 Coronary artery disease involving confederated salish coronary artery Dr. Pederson follows regularly; S/P PTCA and stenting at [facility], 2000 Coronary atherosclerosis of unspecified type of vessel, confederated salish or graft Disorder of bone and cartilage, [...] [Cefadroxil] Hives Nortriptyline Other: See Comments vertigo INTERVAL HISTORY This Team Access Model visit is a virtual encounter. It required patient- provider interaction for the medical decision making as documented below. I have communicated my name and active licensure. The patient's identity and physical location wereverified at the time of this visit. Either the patient or their legal financial services representative has been informed of the risks and benefits of -- and alternatives to -- treatment through a remote evaluation andconsents to proceed with the evaluation remotely. She [...] Glands: No Current Outpatient Medications Medication Sig omeprazole (PRILOSEC) 40 mg capsule Take 40 mg by mouth once daily. esomeprazole (NEXIUM) 40 mg capsule Take 40 mg by mouth daily before breakfast. benzonatate (TESSALON PERLE) 100 mg capsule Take 1 capsule by mouth three times a day as needed forcough. (Patient not taking: Reported on 09/20/2024) sodium chloride (SALINE MIST) 0.65 % nasal spray Use 1 spray in the nose two times a day. azelastine 0.1% nasal spray Use 1 spray in each nostril two times a day. fluticasone (FLONASE) 50 mcg/actuation nasal spray Use 2 sprays in each nostril two times a day. Rinse mouth after use. (Patient not taking: Reported on 09/20/2024) bfjncjotyiy-tsihqogws-lrghtmdf (TRELEGY ELLIPTA) 100-62.5-25 mcg inhalation powder Inhale 1 puff asinstructed once daily. zolpidem (AMBIEN) 10 mg Take [...] day. (Patient not taking: Reported on 09/20/2024) Infusion Set for Insulin Pump (MEDTRONIC EXT [...] meal. (Patient not taking: Reported on 09/20/2024) Insulin Syringe-Needle U-100 (BD INSULIN SYRINGE ULTRA-FINE) [...] (pain). (Patient not taking: Reported on 09/20/2024) lidocain-me.alqsvkh-voia-rbiqt 0.5-20-0.035-5 % ptmd Apply 1 Each to affected area as needed. traMADol (ULTRAM) 50 mg tablet Take 50 mg by mouth every 6 hours as needed for pain. (Patient not taking: Reported on 05/30/2024) albuterol HFA (PROVENTIL HFA, VENTOLIN HFA) 90 mcg/actuation inhaler Inhale 2 Puffs as instructed every 4 hours as needed for wheezing/shortness of breath. (Patient not taking: Reported on 09/20/2024) WALKER ROLLATOR SEAT WITH 6 WHEELS - [...] (autoimmune def) Daughter SOCIAL HISTORY: Lives in [place] with spouse. 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 [...] 8 - 15 mmol/L 13 eGFR >=60 mL/min/1.73m 92 Latest Ref Rng 01/25/2024 WBC 3.70 - 11.00 k/uL 7.75 RBC 3.90 - 5.20 m/uL 3.64 (L) Hemoglobin 11.5 - 15.5 g/dL 12.3 Platelet Count 150 - 400 k/uL 259 Creatinine 0.58 - 0.96 mg/dL 0.68 eGFR >=60 mL/min/1.73m 90 AST 13 - 35 U/L 32 [...] , resumed once daily afterward. Currently stable overall,with intermittent hand cramping. - Continue HCQ 200mg bid along ophthalmology follow-up at least annually thereafter (last normal inJ) - No further tx is needed at this time from the joint perspective but advised in the past to let usknow if the shotgun shell reprinting unit operator feels like additional tx is needed from the ILD standpoint so that we canprovide input as needed - Continue pulmonary management of ILD, referral to pulmonary previously provided - check labs now - will check hand x-rays - she declined consult to OT for hand cramping 2. History of osteopenia: Multiple remote fractures, not clearly fragility fractures per history. Remote use of fosamax - per the medication list although she doesn't recall this. DEXA withnormal BMD, Nov DXA with osteopenia - Calcium [...] Decision Making Level: 5 - High Alberto Argueta APRN.TIM documented in this encounterBarnesville Hospital07-09-2025 NoteHNO ID: [id number] Author: ALBERTO ARGUETA APRN.TIM Service: ? Author Type: Nurse Practitioner Type: Progress Notes Filed: 10/26/2024 09:52 Note Text: Follow up for seropositive RA HPI: To review, Kylie Russo is a 79 year old female [...] diagnosed with ILD. Sees Dr. 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 - In Jan, advised to resume HCQ once daily per vp of customer experience strategy (but didn't say why). - In Feb, reported that hands had become swollen off HCQ. Had been on HCQ for less than a month, hadn't kicked back in yet. - In Dec, reported stable joints. Interim dx of gastroparesis - at [facility], reports joints are doing well. With some [...] BILATERRAL 08/08/2005 - Coronary artery disease involving confederated salish coronary artery Dr. Pederson follows regularly; S/P PTCA and stenting at [facility], 2000 - Coronary atherosclerosis of unspecified type of vessel, confederated salish or graft - Disorder of bone and cartilage, unspecified - Diverticulosis of colon (without mention of hemorrhage) - DKA (diabetic ketoacidoses) 09/28/2019 - Esophagitis - External hemorrhoids without mention of complication - Insomnia - Internal hemorrhoids without mention of complication - Mammographic microcalcification - Mild intermittent asthma without complication ([facility]) Adult onset - Mild nonproliferative diabetic retinopathy of both eyes ([facility]) 12/06/2018 - Other and unspecified hyperlipidemia - Other forms of migraine - Other psoriasis - Postsurgical percutaneous transluminal coronary angioplasty status - Rheumatoid arthritis(714.0) - RLS (restless legs syndrome) - 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 Magalys Mera RN September 23, 2024 9:29 AM * Telephone Encounter - Magalys Mera RN - 09/23/2024 9:24 AM EDT Virtual visit with Ha Bess, diabetic nurse educator, 09/22/2024. * Telephone Encounter - Hazel Uriarte LPN - 09/23/2024 9:09 AM EDT Patient called. Verified name and date of . Patient would like to switch from Medtronics to the Tandem. States she did speak with Clinton and feel comfortable with the switch. Patient is having toswitch supplies more often with [employer]. She gets supplies from [employer] and they need orders for for all of her pump supplies- uncertain of names. She needs the CGM's as well. Please review and advise. Hazel Uriarte LPN documented in this encounterBarnesville Hospital06-06-2025 Telephone encounter Note * Telephone Encounter - Magalys Mera RN - 09/23/2024 9:29 AM EDT Email sent to Julio Cesar Solano, to inquire about the transition from Medtronic to [employer] and what information/paperwork will be needed to start the process. Magalys Mera RN September 23, 2024 9:29 AM [facility]06-06-2025 Telephone encounter Note* Telephone Encounter - Magalys Mera RN - 09/23/2024 9:24 AM EDT Virtual visit with Ha Bess, diabetic nurse educator, 09/22/2024. [facility]-06-[facility] Telephone encounter Note* Telephone Encounter - Hazel Uriarte LPN - 09/23/2024 9:09 AM EDT Patient called. Verified name and date of . Patient would like to switch from Medtronics to the Tandem. States she did speak with Clinton and feel comfortable with the switch. Patient is having toswitch supplies more often with [employer]. She gets supplies from [employer] and they need orders for for all of her pump supplies- uncertain of names. She needs the CGM's as well. Please review and advise. Hazel Uriarte LPN [facility]06-05-2025 NoteHNO ID: [id number] Author: CLINTON BESS RN Service: ? Author Type: Registered Nurse [...] Spent approximate 15 minutes reviewing options with patient.[facility]06-05-2025 History of Present illness Narrative* Clinton Bess RN - 09/22/2024 1:47 PM EDT Questions about what other pumps are available [...] approximate 15 minutes reviewing options with patient. documented in this encounterBarnesville Hospital06-05-2025 Telephone encounter Note * Telephone Encounter - Nara Argueta RN - 09/22/2024 11:09 AM EDT Patient calls and wanted provider to know that she got PFTs done at [facility] on 09/06/2024. Results are scanned into system. Nara Argueta RN [facility]06-05-2025 Miscellaneous Notes* Telephone Encounter - Nara Argueta RN - 09/22/2024 11:09 AM EDT Patient calls and wanted provider to know that she got PFTs done at [facility] on 09/06/2024. Results are scanned into system. Nara Argueta RN documented in this encounterBarnesville Hospital06-04-2025 Telephone encounter Note * Telephone Encounter - Magalys Mera RN - 09/21/2024 8:51 AM EDT Endocrinology OV notes from 09/20/2024 faxed to [employer] for Pt's existing diabetes supply order. Fax confirmation received. Magalys Mera RN September 21, 2024 8:53 AM [facility]06-04-2025 Miscellaneous Notes* Telephone Encounter - Magalys Mera RN - 09/21/2024 8:51 AM EDT Endocrinology OV notes from 09/20/2024 faxed to [facility] for Pt's existing diabetes supply order. Fax confirmation received. Magalys Mera RN September 21, 2024 8:53 AM documented in this encounterBarnesville Hospital06-03-2025 Instructions* Patient Instructions* Eva Nielsen MD - 09/20/2024 2:57 PM EDT Please continue same pump settings documented in this encounterBarnesville Hospital06-03-2025 NoteHNO ID: [id number] Author: EVA NIELSEN MD Service: ? Author [...] diabetic. She was following Dr. Palm at [facility] in the recent past, last appointment in April 2023. Prior to that, she was following with endocrinology at [facility], last appointment in October 2020 with Princess Lim APRN. CROP AND SOIL TECHNICIAN Established care with me in 05/2023 LV [...] gastric emptying study following Dr. Dyer at [facility] Exacerbating factors include: obesity Last NEIL/Retina Eval: [...] need for multiple calibrations She has contacted [employer] multiple times due to all these issues, [...] diet She has seen Nutrition services at [facility], and reports that it was not very beneficial, she saw dietitian at [facility] who started her on a gastroparesis nutritional plan She has seen endocrine dietitian and diabetic education few times now ROS: As per HPI Past Medical History PAST MEDICAL HISTORY Diagnosis Date Abnormal mammogram, unspecified left breast BPPV (benign paroxysmal positional vertigo) 02/11/2015 BPV (benign positional vertigo) CAD (coronary artery disease) Carotid stenosis CARPAL TUNNEL BILATERRAL 08/08/2005 Coronary artery disease involving confederated salish coronary artery Dr. Pederson follows regularly; S/P PTCA and stenting at [facility], 2000 Coronary atherosclerosis of unspecified type of vessel, confederated salish or graft Disorder of bone and cartilage, unspecified Diverticulosis of colon (without mention of hemorrhage) DKA (diabetic ketoacidoses) 09/28/2019 Esophagitis External hemorrhoids without mention of complication Insomnia Internal hemorrhoids without mention of complication Mammographic microcalcification Mild intermittent asthma without complication (HCC) Adult onset 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) 12/06/2018 Other and unspecified hyperlipidemia Other forms of migraine Other psoriasis Postsurgical percuta (more content not included)...[facility] 09-20-2024 History of Present illness Narrative* Eva Nielsen MD - 09/20/2024 2:47 PM EDT [facility] Follow up visit [...] diabetic. She was following Dr. Palm at [facility] in the recent past, last appointment in April 2023. Prior to that, she was following with endocrinology at [facility], last appointment in October 2020 with Princess Lim APRN. [employer] TECHNICIAN Established care with me in 05/2023 LV [...] gastric emptying study following Dr. Dyer at [facility] Exacerbating factors include: obesity Last NEIL/Retina Eval: [...] respond to bolus with pump. She also reportsissues with the sensor, failing with in 2 [...] diet She has seen Nutrition services at [facility], and reports that it was not very beneficial, she saw dietitian at [facility] who started her on a gastroparesis nutritional plan She has seen endocrine dietitian and diabetic education few times now ROS: As per HPI Past Medical History PAST MEDICAL HISTORY Diagnosis Date Abnormal mammogram, unspecified left breast BPPV (benign paroxysmal positional vertigo) 02/11/2015 BPV (benign positional vertigo) CAD (coronary artery disease) Carotid stenosis CARPAL TUNNEL BILATERRAL 08/08/2005 Coronary artery disease involving confederated salish coronary artery Dr. Pederson follows regularly; S/P PTCA and stenting at [facility], 2000 Coronary atherosclerosis of unspecified type of vessel, confederated salish or graft Disorder of bone and cartilage, unspecified Diverticulosis of colon (without mention of hemorrhage) DKA (diabetic ketoacidoses) 09/28/2019 Esophagitis External hemorrhoids without mention of complication Insomnia Internal hemorrhoids without mention of complication Mammographic microcalcification Mild intermittent asthma without complication ([facility]) Adult onset Mild nonproliferative diabetic retinopathy of both eyes ([facility]) 12/06/2018 Other and unspecified hyperlipidemia Other forms of migraine Other psoriasis Postsurgical percutaneous transluminal coronary angioplasty status Rheumatoid arthritis(714.0) RLS (restless legs syndrome) 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 30 mL 2 aghlfjiwplj-ixupvaayg-ifpzttdn (TRELEGY ELLIPTA) 100-62.5-25 mcg inhalation powder Inhale 1 puff asinstructed once daily. 60 each 0 zolpidem (AMBIEN) [...] 1 Each one time a week. 20 Each2 amLODIPine (NORVASC) 5 mg tablet Take 1 [...] units daily. Dx E10.65 10 mL 3 lidocain-me.wdydyqg-vrgc-tzyrb 0.5-20-0.035-5 % ptmd Apply 1 Each to [...] mouth three times a day as needed forcough. (Patient not taking: Reported on 09/20/2024) 21 [...] (H) 4.3 - 5.6 % Final Comment: Citizen Of [place] Diabetes Association guidelines indicate that patients with [...] Size: Regular Adult Pulse: 70 Temp: 36.9 C (98.5 F) TempSrc: Temporal Artery SpO2: 98% Weight: 67.5 [...] pump failure. She has seen dietitian at [facility] and was given gastroparesis associated dietary [...] Moderate Eva Nielsen MD Endocrinology Associate Staff [facility] [place] [phone] * Diamond Rushing MA - 09/20/2024 2:43 PM EDT Images from the original note were not included. [facility] NoteHNO ID: [id number] Author: DIAMOND RUSHING MA Service: ? Author Type: Senior Analyst Developer Type: Progress Notes Filed: 09/20/2024 18:46 Note Text:[facility]05-27-2025 History of Present illness Narrative* Nara Little LPN - 09/13/2024 10:00 AM EDT Neck circumference - Currently smoking or Hx of smoking -Never Oxygen use _No patient is benefiting from oxygen use. Do you have a CPAP-not using CPAP DME company- Most recent CT-09/06/24 Most recent PFT- 09/06/24 Symptoms include:Cough,sob Increase in shortness of breath- Dyspnea upon exertion-sometimes Dyspnea at rest-No Cough- productive-yellow to green Have you had the Covid 19 vaccine-yes Do you need a Medication refill? Pt presents for review of CT,PFT, 6 min Maintenance medication - ,esomeprazole Maintenance inhaler-Trelegy Rescue medication-Albuterol * Omayra Herndon CNP - 09/13/2024 10:00 AM EDT [facility] PULMONARY DISEASE [facility] Service Date:.09/13/24 PCP: Alcira Anderson Chief Complaint Follow-up visit for shortness of breath, including ongoing management and care coordination. HPI Kylie Russo is a 79 y.o. female presents to the [facility] today due to shortness of breath that has improved recently after being prescribed Trelegy. She has been on this medication for almost 2 weeks in his had significant improvement over the past couple of days. She has a history of restrictive lung disease and pulmonary fibrosis in the presence of asthma. Recent changes in medication or therapy: Trelegy Other related health concerns that can impact pulmonary function, exacerbate symptoms, or complicate treatment were considered and are listed below Neck circumference - Currently smoking or Hx of smoking -Never Oxygen use _No patient is benefiting from oxygen use. Do you have a CPAP-not using CPAP DME company- Most recent CT-09/06/24 Most recent PFT- 09/06/24 Symptoms include:Cough,sob Increase in shortness of breath- Dyspnea upon exertion-sometimes Dyspnea at rest-No Cough- productive-yellow to green Have you had the Covid 19 vaccine-yes Do you need a Medication refill? Pt presents for review of CT,PFT, 6 min Maintenance medication - ,esomeprazole Maintenance inhaler-Trelegy Rescue medication-Albuterol Review of Systems: Review of Systems Constitutional: Negative. HENT: Negative. Eyes: Negative. Negative for discharge. Respiratory: Positive for shortness of breath. Negative for apnea. Cardiovascular: Negative. Negative for chest pain. Gastrointestinal: Negative. Negative for abdominal distention. Musculoskeletal: Negative. Negative for gait problem. Skin: Negative. Negative for color change. Neurological: Negative. Negative for facial asymmetry. Psychiatric/Behavioral: Negative. Negative for agitation. All other systems reviewed and are negative. Past Medical History: No past medical history on file. Past Surgical History: No past surgical history on file. Allergies: Allergies Allergen Reactions Acetaminophen Amitriptyline Amoxicillin-Pot Clavulanate Cefadroxil Ephedrine Levofloxacin Oxycodone Sulfa Antibiotics Aspirin Dipyridamole Doxycycline Pregabalin Immunizations: Immunization History Administered Date(s) Administered [id number] COVID-19 monovalent vaccine, mRNA, Pfizer, 0.3 ML 06/06/2020, 06/28/2020, 01/13/202120205918-3725 COVID-19 monovalent vaccine (Pfizer) 12yr +, 30mcg/0.3mL 07/30/[id number] COVID-19 bivalent vaccine (Pfizer) 12yr +, 30mcg/0.3mL 01/03/2022 COVID-19 ADJUVANTED (NOVAVAX) 12+YR, 5MCG/0.5ML ([id number]) 05/02/2024 COVID-19 mRNA, (MODERNA) 12yr+ 50 mcg/0.5mL 04/28/2023 Medications: Patient's Medications New Prescriptions No medications on file Previous Medications ALBUTEROL 108 (90 BASE) MCG/ACT AERO SOLN INHALER Inhale 2 puffs every 4 hours as needed for Shortness of Breath, Respiratory Distress or Wheezing. GARGLE, RINSE MOUTH AFTER USE AMLODIPINE 5 MG TAB TABLET ATORVASTATIN 40 MG TABLET atorvastatin 40 mg tablet take 1 tablet by mouth once daily BIOTIN 1000 MCG TABLET Take 1 tablet by mouth daily. BLOOD GLUCOSE MONITORING SUPPL (CONTOUR BLOOD GLUCOSE SYSTEM) W/DEVICE KIT Dispense 1 kit. Dx: Type1 DM - Controlled E10.9 CONTINUOUS BLOOD GLUC SENSOR (FREESTYLE XANDER 14 DAY SENSOR) MISC DEXTROMETHORPHAN-GUAIFENESIN 30-200 MG/5ML LIQUID Take 5 mL by mouth every 4 hours as needed for Other or Cough (cough). DICLOFENAC SODIUM 1 % GEL GEL diclofenac VOLTAREN 1 % GEL apply topically twice daily as needed DICLOFENAC SODIUM [id number] Leandra Whitney RN 01-31-2014 [facility] ([id number]) DICLOFENAC SODIUM 1 % GEL GEL apply 3 grams to THE PAINFUL AREA topically once daily for 28 DAYS DOCUSATE 100 MG CAPSULE Take 1 capsule by mouth 2 times daily. ERGOCALCIFEROL 1.25 MG (24340 UT) CAPSULE Take by mouth. ESOMEPRAZOLE (NEXIUM) [address] CAPSULE Take 1 capsule by mouth every morning before breakfast. FUROSEMIDE 20 MG TABLET furosemide 20 mg tablet take 1 tablet by mouth every other day GLUCOSE BLOOD TEST STRIPS (ASCENSIA MICROFILL TEST) STRIP STRIP Test blood sugar(s) 6 times daily. Dx: Type 1 DM - Controlled E10.9 Insulin: Yes HYDROXYCHLOROQUINE 200 MG TABLET 1 po q day INSULIN GLARGINE 100 UNIT/ML VIAL 46 units every 24 hr for insulin pump failure INSULIN LISPRO 100 UNIT/ML VIAL Humalog U-100 Insulin 100 unit/mL subcutaneous solution USE DIRECTED IN INSULIN PUMP UP TO 110 UNITS DAILY INSULIN SYRINGE-NEEDLE U-100 (INSULIN SYRINGE 1CC/31GX5/16) 31G X 5/16 1 ML MISC use as directed if pump fails up to 6 times daily LOSARTAN 100 MG TABLET MISC. DEVICES MISC 1 Each by Unknown route daily. Incentive spirometer MULTIPLE VITAMIN (MULTI-VITAMINS) TAB MULTIPLE VITAMIN MULTIVITAMINS TABS One tablet by mouth [id number] MULTIPLE VITAMIN [id number] Amara [place] 11[birth year]2010 [facility] ([id number]) NITROGLYCERIN 0.4 MG/SPRAY SOLUTION nitroglycerin NITROLINGUAL 0.4 MG/SPRAY SOLN 1 spray under tongue every 5min up to 3 X (400mcg per spray) NITROGLYCERIN [id number] Leon Seaman MD 11-30-2012 Debora Myers RN [facility] ([id number]) PRAMIPEXOLE 1 MG TABLET At bedtime. PROBIOTIC CAPSULE Take 1 capsule by mouth daily. RA VITAMIN D-3 125 MCG (5000 UT) CAP CAPSULE Modified Medications Modified Medication Previous Medication CMZUELDCINN-KJMRGRSBY-RAYOHW (TRELEGY ELLIPTA) 200-62.5-25 MCG/ACT AEROSOL POWDER, BREATH RPPAQQGSFLxciwaguayc-Pjbshuwbg-Toyvll (Trelegy Ellipta) 200-62.5-25 MCG/ACT Aerosol Powder, breath activated Inhale 1 puff daily. Inhale 1 puff daily. Discontinued Medications CETIRIZINE 10 MG TABLET Take 1 tablet by mouth daily. PREDNISONE 10 MG TABLET Take 4 tablets by mouth for 3 days, then take 3 tablets by mouth for 3 days, then take 2 tablets by mouth for 3 days, 1 tablet for 3 days PREDNISONE 5 MG TABLET 8 po q AM for 1 day decrease by 1 pill a day until off - to be used on a PRNbasis Family History: History reviewed. No pertinent family history. Social History: Social History Socioeconomic History Marital status: Spouse name: Not on file Number of children: Not on file Years of education: Not on file Highest education level: Not on file Occupational History Not on file Tobacco Use Smoking status: Never Smokeless tobacco: Never Substance and Sexual Activity Alcohol use: Never Drug use: Not on file Sexual activity: Never Other Topics Concern Not on file Social History Narrative Not on file Social Drivers of Health Financial Resource Strain: High Risk (12/07/2023) Received from [facility] Overall Financial Resource Strain (CARDIA) Difficulty of Paying Living Expenses: Very hard Food Insecurity: Food Insecurity Present (12/07/2023) Received from [facility] Hunger Vital Sign Worried About Running Out of Food in the Last Year: Often true Ran Out of Food in the Last Year: Often true Transportation Needs: No Transportation Needs (12/07/2023) Received from [facility] PRAPARE - Transportation Lack of Transportation (Medical): No Lack of Transportation (Non-Medical): No Physical Activity: Insufficiently Active (09/03/2024) Received from [facility] Exercise Vital Sign Days of Exercise per Week: 2 days Minutes of Exercise per Session: 20 min Stress: Patient Declined (12/07/2023) Received from [facility] [employer] [place] [employer] - Occupational Stress Questionnaire Feeling of Stress : Patient declined Social Connections: Unknown (12/07/2023) Received from [facility] Social Connection and Isolation Panel [NHANES] Frequency of Communication with Friends and Family: More than three times a week Frequency of Social Gatherings with Friends and Family: Patient declined Attends Uatsdin Services: Patient declined Active Member of Clubs or Organizations: No Attends Club or Organization Meetings: Never Marital Status: Personal Safety: Not on file Housing Stability: Unknown (12/07/2023) Received from [facility] Housing Stability Vital Sign Unable to Pay for Housing in the Last Year: Patient declined Number of Times Moved in the Last Year: Not on file Homeless in the Last Year: Not on file Physical Exam: Physical Exam Vitals and nursing note reviewed. Constitutional: Appearance: Normal appearance. She is not ill-appearing. HENT: Head: Normocephalic. Right Ear: External ear normal. Left Ear: External ear normal. Nose: Nose normal. Mouth/Throat: Mouth: Mucous membranes are moist. Eyes: Pupils: Pupils are equal, round, and reactive to light. Cardiovascular: Rate and Rhythm: Normal rate. Pulmonary: Effort: Pulmonary effort is normal. Comments: Diminished bases but clear throughout Abdominal: General: There is no distension. Musculoskeletal: General: Normal range of motion. Cervical back: Normal range of motion. Skin: General: Skin is warm and dry. Capillary Refill: Capillary refill takes less than 2 seconds. Neurological: General: No focal deficit present. Mental Status: She is alert. Psychiatric: Behavior: Behavior normal. Vital Signs During Visit BP 118/70 (BP Location: Left arm, BP Position: Sitting) Pulse 64 Temp 96.6 F (35.9 C) (Temporal) Resp 16 Ht 1.6 m (5' 3) Wt 67.5 kg (148 lb 12.8 oz) SpO2 98% Comment: r/a BMI 26.36 kg/m Smoking Status Never Orders/Results: Orders Placed This Encounter Psrvkapwsrl-Wtveyxtyw-Udjzxj (Trelegy Ellipta) 200-62.5-25 MCG/ACT Aerosol Powder, breath activated Results for orders placed or performed in visit on 12/04/22 MINI-PANEL ALLERGEN PROFILE Result Value Ref Range CLASS DESCRIPTION Comment BERMUDA GRASS IGE <0.10 Class <0.10 House Dust Mites/D.P., Class <0.10 ELM, IGE <0.10 Allergen, [place]an Plantain IgE <0.10 BLUEGRASS, [place] <0.10 OAK, WHITE <0.10 Common Ragweed, Short, IgE <0.10 House Dust Mites/D.F.,Class <0.10 ALTERNARIA ALTERNATA <0.10 Mouse Urine Protein, IgE <0.10 Allergen, Dog Dander IgE <0.10 ALLERGEN PROFILE, MOLD Result Value Ref Range CLASS DESCRIPTION Comment Cladosporium herbarum, IgE <0.10 Aspergillus fumigatus IgE <0.10 IGE MUCOR RACEMOSUS <0.10 IGE GODFREY ALBICANS <0.10 IGE AUREOBASIDIUM PULLUL <0.10 Allergen, Fungi/Mold, Phoma betae IgE <0.10 IGE EPICOCCUM PURPURASCE <0.10 PENICILLIUM CHRYSOGEN <0.10 ALTERNARIA ALTERNATA <0.10 Fusarium Proliferatum <0.10 STEMPHYLIUM HERBARUM <0.10 SETOMELANOMMA ROSTRAT <0.10 IMMUNOGLOBULIN IGE Result Value Ref Range IMMUNOGLOBULIN IGE 5 (L) CBC, EDIF, PLATELET Result Value Ref Range WBC (WHITE BLOOD COUNT) 6.3 3.6 - 11.0 10*3/uL RBC 4.00 4.0 - 5.4 10*6/uL HEMOGLOBIN (HGB) 13.0 12.0 - 16.0 G/DL HEMATOCRIT (HCT) 38.2 36.0 - 48.0 % Mean Cell Volume 95.7 80.0 - 100.0 FL Mean Cell HGB 32.5 26.0 - 35.0 PG Mean Cell HGB Concentration 34.0 27.0 - 37.0 G/DL RBC Distribution 14.7 (H) 11.5 - 14.5 % PLATELET COUNT 218 130 - 400 10*3/uL Mean Platelet Volume 9.9 7.4 - 11.0 FL DIFFERENTIAL TYPE AUTO DIFF % NEUTROPHILS 64.7 37.0 - 75.0 % LYMPHOCYTE 22.3 20.0 - 55.0 % MONOCYTE % 10.9 (H) 0.0 - 10.0 % EOSINOPHIL % 1.7 0.0 - 11.0 % BASOPHIL % 0.4 0.0 - 2.0 % Absolute Neutrophil Count 4.1 1.4 - 6.5 10*3/uL LYMPHOCYTES, ABSOLUTE 1.4 1.2 - 3.4 10*3/uL MONOCYTES, ABSOLUTE 0.7 0.0 - 0.7 10*3/uL ABSOLUTE EOSINOPHIL COUNT 0.1 0.0 - 0.7 10*3/uL ABSOLUTE BASOPHIL COUNT 0.0 0.0 - 0.2 10*3/uL ALPHA 1 ANTITRYPSIN Result Value Ref Range Stjtp-5-Orwhltkuasy 146 CK Result Value Ref Range CK 160 (H) 30 - 135 IU/L COMPREHENSIVE METABOLIC PANEL Result Value Ref Range Glucose 262 (H) 70 - 100 MG/DL BUN 20 7 - 20 MG/DL CREATININE SERUM 0.68 (L) 0.70 - 1.20 MG/DL SODIUM 141 137 - 145 MMOL/L Potassium 3.8 3.5 - 5.1 MMOL/L CHLORIDE 107 98 - 107 MMOL/L CALCIUM 9.6 8.4 - 10.2 MG/DL PROTEIN, TOTAL 7.4 6.3 - 8.2 GM/DL Albumin 4.2 3.5 - 5.0 G/dl BILIRUBIN, TOTAL 1.1 0.2 - 1.3 MG/DL AST 39 (H) 14 - 36 IU/L ALKALINE PHOSPHATASE 132 (H) 38 - 126 IU/L CARBON DIOXIDE (CO2) 24 22 - 30 MMOL/L A/G Ratio 1.3 RATIO ALT 38 (H) <35 IU/L ESTIMATED GFR, NON AMER 89 ml/min/1.73sq.m ESTIMATED GFR, 108 ml/min/1.73sq.m GFR COMMENT Average GFR for 70+ years old = 75. RHEUMATOID FACTOR Result Value Ref Range RHEUMATOID FACTOR <8.6 <12 Iu/mL SEDIMENTATION RATE, AUTOMATED Result Value Ref Range SEDIMENTATION RATE AUTOMATED 44 (H) 0 - 30 MM/HR SJOGREN'S AB SSA,SSB Result Value Ref Range Sjogrens Antibodies (SS-A) <0.2 Sjogrens Antibody (SS-B) <0.2 CYCLIC CITRULLINATE PEPTIDE AB Result Value Ref Range CYCLIC CITRULLINATE PEPTIDE AB 6 C REACTIVE PROTEIN Result Value Ref Range C-Reactive Protein <5.0 0 - 10 MG/L ANTI-SCLERODERMA AB (SCL70) Result Value Ref Range ANTI-SCLERODERMA AB (SCL70) <0.2 ANGIOTENSIN CONVERTING ENZYME Result Value Ref Range Angiotensin Converting Enzyme 84 (H) ANCA INIT SCRN (ANCA, PR3AB, MPO) Result Value Ref Range ANTI-MYELOPEROXIDASE AB <0.2 ANTI-PROTEINASE 3 AB <0.2 C-ANCA (PR3) (ANTI NEUTROPHIL CYTOPLASMIC ANTIBODY) <1:20 P-ANCA TITER <1:20 ATYPICAL P-ANCA TITER <1:20 SUSI MULTIPLEX SCRN WITH REFLEX Result Value Ref Range SUSI-DIRECT Negative Recent Imaging: CT CHEST WITHOUT CONTRAST Narrative: EXAMINATION: CT CHEST WITHOUT CONTRAST, 09/06/2024 10:10 AM EDT HISTORY: possible [...] change. Osseous structures are stable in appearance. Impression: IMPRESSION: No definite acute process in the lungs. There are mild to moderate changes of subpleural fibrosis and very mild bibasilar bronchiectasis. Other stable findings as above. Medical Decision Making Complexity Justification Longitudinal management of complex or chronic condition/s requiring continuous assessment and adjustment Coordination of care with primary care Discussion of disease progression, therapy response, and patient adherence Shared decision-making regarding ongoing therapy Data Review and Analysis: The test results, patient history, and vital signs noted above have been reviewed Risk and Treatment Considerations: Risk of complications and consideration for escalation of care discussed Comorbid conditions listed above including their impact on pulmonary health and treatment plan was considered Assessment and Plan: Subjectively she is doing much better. I will send her home with Estella with instructions to call to be seen same day with the development of any acute symptoms. Problem List Items Addressed This Visit Respiratory Asthma - Nonsmoker; Hx of Asthma was on albuterol nebs prev. - have element of mild RAD, Asthma - 08/14/2023 PFT: - Spirometry - NORMAL, FEV1/FVC 83%, FEV1 2.04L 105% predicted, FVC 2.45L 94% predicted - Significant increase/response to bronchodilator: NO response during this testing (this does not preclude clinical benefit from bronchodilators). - Lung Volume - MILD RESTRICTION (probably extraparenchymal cause; e.g., body habitus), w/ MILDLY REDUCED TLC 3.40L 75% predicted, RV 0.90L 47% predicted. - Diffusing Capacity: MILDLY REDUCED DLCO 71% predicted, DL/VA 112% (which normalizes when adjustedfor lung volume, suggesting probably extraparenchymal cause). Results do not exclude clinical diagnosis of asthma, reactive airway disease. - 12/04/2022 PFT: - Spirometry - NORMAL, [...] triple tx Trelegy or other inhaler regimen, iffeasible; cont. albuterol as needed; use spacer - 01/08/23 try Trelegy, if feasible, or other txs, ICS/LABA; cont albuterol prn. - 08/25/23 not needing/using inhalers reg.; cont albuterol prn; restart maint inhalers, if needed - may also use duonebs; budesonide+formoterol nebs [...] - Influenza, pneumococcal, COVID19 vaccines recommended, updated Pulmonary fibrosis - had CT Chest CTPE [...] for interstitial lung disease. 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 1.5 cm calcified [...] SSA, SSB, SCL70, CCP, RF, ANCAs. MPO, HI# - Negative. - 12/04/2022 LABS: CK 64 slightly increased only. - 12/04/2022 LABS: CMP satisfactory (except glucose 262 RBS) - 12/04/2022 LABS: ESR 44 mildly increased, nonspecific. CRP Normal. - 08/14/2023 PFT: - Spirometry - NORMAL, FEV1/FVC 83%, FEV1 2.04L 105% predicted, FVC 2.45L 94% predicted - Significant increase/response to bronchodilator: NO response during this testing (this does not preclude clinical benefit from bronchodilators). - Lung Volume - MILD RESTRICTION (probably extraparenchymal cause; e.g., body habitus), w/ MILDLY REDUCED TLC 3.40L 75% predicted, RV 0.90L 47% predicted. - Diffusing Capacity: MILDLY REDUCED DLCO 71% predicted, DL/VA 112% (which normalizes when adjustedfor lung volume, suggesting probably extraparenchymal cause). - 08/14/2023 CT chest without contrast reviewed: No acute lung findings. 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 - incidental findings: old, known scarring of heart aortic valve and coronary arteries related to age, cholesterol or atherosclerosis: routine follow-up w/ PCP, health and wellness coach --- follow-up CT Chest 6 months; 02/13/24 - may have had Acute Pneumonitis w/ [...] further evaluation, management pending results, clinical course. Restrictive lung disease - Primary - Monitor imaging, Pulmonary Function Test as indicated - Encouraged weight loss, stay active Other Visit Diagnoses Chronic obstructive pulmonary disease, unspecified COPD type Relevant Medications Yololoyjuvw-Swmciemkh-Vupjgx (Trelegy Ellipta) 200-62.5-25 MCG/ACT Aerosol Powder, breath activated Patient Education & Counseling: Reviewed medication adherence, inhaler technique as indicated, and symptom monitoring Discussed abstaining from smoking - including second hand, weight management, and vaccination recommendations Emphasized importance of follow-up care to prevent exacerbations Return in about 6 months (around 03/16/2025). New Prescriptions No medications on file Discontinued Medications CETIRIZINE 10 MG TABLET Take 1 tablet by mouth daily. PREDNISONE 10 MG TABLET Take 4 tablets by mouth for 3 days, then take 3 tablets by mouth for 3 days, then take 2 tablets by mouth for 3 days, 1 tablet for 3 days PREDNISONE 5 MG TABLET 8 po q AM for 1 day decrease by 1 pill a day until off - to be used on a PRNbasis Clinical Impression: 1. Restrictive lung disease 2. Pulmonary fibrosis 3. Uncomplicated asthma, unspecified asthma severity, unspecified whether persistent 4. Chronic obstructive pulmonary disease, unspecified COPD type Patient was advised to call with any [...] understanding and agreement to proceed with plan. Some elements copied from previous notes. I have updated where appropriate, and all reflect currentmedical decision making from today's encounter. Note: This dictation was generated using voice recognition software. Please excuse any typographical, grammatical or spelling errors that may have occurred using the system Note to patient: The Cures Act makes medical notes like these available to patients inthe interest of transparency. However, be advised this is a medical document. It is intended as lgvm-lo-egue communication. It is written in medical language and may contain abbreviations or verbiagethat are unfamiliar. It may appear blunt or direct. Medical documents are intended to carry relevant information, facts as evident, and the clinical opinion of the practitioner. Omayra Herndon CNP, WHEELAGE CLERK-C Pulmonary/Critical Care Medicine [facility] 09/13/2024 documented in this encounterOhio[facility] Evaluation + Plan note * Assessment & Plan Note - Omayra Herndon CNP - 09/13/2024 9:44 AM EDT Associated Problem(s): Asthma - Nonsmoker; Hx of Asthma was on albuterol nebs prev. - have element of mild RAD, Asthma - 08/14/2023 PFT: - Spirometry - NORMAL, FEV1/FVC 83%, FEV1 2.04L 105% predicted, FVC 2.45L 94% predicted - Significant increase/response to bronchodilator: NO response during this testing (this does not preclude clinical benefit from bronchodilators). - Lung Volume - MILD RESTRICTION (probably extraparenchymal cause; e.g., body habitus), w/ MILDLY REDUCED TLC 3.40L 75% predicted, RV 0.90L 47% predicted. - Diffusing Capacity: MILDLY REDUCED DLCO 71% predicted, DL/VA 112% (which normalizes when adjustedfor lung volume, suggesting probably extraparenchymal cause). Results do not exclude clinical diagnosis of asthma, reactive airway disease. - 12/04/2022 PFT: - Spirometry - NORMAL, [...] triple tx Trelegy or other inhaler regimen, iffeasible; cont. albuterol as needed; use spacer - 01/08/23 try Trelegy, if feasible, or other txs, ICS/LABA; cont albuterol prn. - 08/25/23 not needing/using inhalers reg.; cont albuterol prn; restart maint inhalers, if needed - may also use duonebs; budesonide+formoterol nebs [...] - Influenza, pneumococcal, COVID19 vaccines recommended, updated [facility]05-27-2025 Evaluation + Plan note* Assessment & Plan Note - Omayra Herndon CNP - 09/13/2024 9:44 AM EDTAssociated Problem(s): Pulmonary fibrosis - had CT Chest [...] for interstitial lung disease. 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 1.5 cm calcified [...] SSA, SSB, SCL70, CCP, RF, ANCAs. MPO, HI# - Negative. - 12/04/2022 LABS: CK 64 slightly increased only. - 12/04/2022 LABS: CMP satisfactory (except glucose 262 RBS) - 12/04/2022 LABS: ESR 44 mildly increased, nonspecific. CRP Normal. - 08/14/2023 PFT: - Spirometry - NORMAL, FEV1/FVC 83%, FEV1 2.04L 105% predicted, FVC 2.45L 94% predicted - Significant increase/response to bronchodilator: NO response during this testing (this does not preclude clinical benefit from bronchodilators). - Lung Volume - MILD RESTRICTION (probably extraparenchymal cause; e.g., body habitus), w/ MILDLY REDUCED TLC 3.40L 75% predicted, RV 0.90L 47% predicted. - Diffusing Capacity: MILDLY REDUCED DLCO 71% predicted, DL/VA 112% (which normalizes when adjustedfor lung volume, suggesting probably extraparenchymal cause). - 08/14/2023 CT chest without contrast reviewed: No acute lung findings. 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 - incidental findings: old, known scarring of heart aortic valve and coronary arteries related to age, cholesterol or atherosclerosis: routine follow-up w/ PCP, health and wellness coach --- follow-up CT Chest 6 months; 02/13/24 - may have had Acute Pneumonitis w/ [...] further evaluation, management pending results, clinical course. [facility]05-27-2025 Miscellaneous Notes* Assessment & Plan Note - Omayra Herndon CNP - 09/13/2024 9:44 AM EDTAssociated Problem(s): Asthma - Nonsmoker; Hx of Asthma was on albuterol nebs prev. - have element of mild RAD, Asthma - 08/14/2023 PFT: - Spirometry - NORMAL, FEV1/FVC 83%, FEV1 2.04L 105% predicted, FVC 2.45L 94% predicted - Significant increase/response to bronchodilator: NO response during this testing (this does not preclude clinical benefit from bronchodilators). - Lung Volume - MILD RESTRICTION (probably extraparenchymal cause; e.g., body habitus), w/ MILDLY REDUCED TLC 3.40L 75% predicted, RV 0.90L 47% predicted. - Diffusing Capacity: MILDLY REDUCED DLCO 71% predicted, DL/VA 112% (which normalizes when adjustedfor lung volume, suggesting probably extraparenchymal cause). Results do not exclude clinical diagnosis of asthma, reactive airway disease. - 12/04/2022 PFT: - Spirometry - NORMAL, [...] triple tx Trelegy or other inhaler regimen, iffeasible; cont. albuterol as needed; use spacer - 01/08/23 try Trelegy, if feasible, or other txs, ICS/LABA; cont albuterol prn. - 08/25/23 not needing/using inhalers reg.; cont albuterol prn; restart maint inhalers, if needed - may also use duonebs; budesonide+formoterol nebs [...] - Influenza, pneumococcal, COVID19 vaccines recommended, updated * Assessment & Plan Note - Omayra Herndon CNP - 09/13/2024 9:44 AM EDT Associated Problem(s): Pulmonary fibrosis - had CT [...] for interstitial lung disease. 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 1.5 cm calcified [...] SSA, SSB, SCL70, CCP, RF, ANCAs. MPO, HI# - Negative. - 12/04/2022 LABS: CK 64 slightly increased only. - 12/04/2022 LABS: CMP satisfactory (except glucose 262 RBS) - 12/04/2022 LABS: ESR 44 mildly increased, nonspecific. CRP Normal. - 08/14/2023 PFT: - Spirometry - NORMAL, FEV1/FVC 83%, FEV1 2.04L 105% predicted, FVC 2.45L 94% predicted - Significant increase/response to bronchodilator: NO response during this testing (this does not preclude clinical benefit from bronchodilators). - Lung Volume - MILD RESTRICTION (probably extraparenchymal cause; e.g., body habitus), w/ MILDLY REDUCED TLC 3.40L 75% predicted, RV 0.90L 47% predicted. - Diffusing Capacity: MILDLY REDUCED DLCO 71% predicted, DL/VA 112% (which normalizes when adjustedfor lung volume, suggesting probably extraparenchymal cause). - 08/14/2023 CT chest without contrast reviewed: No acute lung findings. 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 - incidental findings: old, known scarring of heart aortic valve and coronary arteries related to age, cholesterol or atherosclerosis: routine follow-up w/ PCP, health and wellness coach --- follow-up CT Chest 6 months; 02/13/24 - may have had Acute Pneumonitis w/ [...] further evaluation, management pending results, clinical course. * Assessment & Plan Note - Omayra Herndon CNP - 09/13/2024 9:43 AM EDT Associated Problem(s): Restrictive lung disease - Monitor imaging, Pulmonary Function Test as indicated - Encouraged weight loss, stay active documented in this encounterOhio[facility] Evaluation + Plan note * Assessment & Plan Note - Omayra Herndon CNP - 09/13/2024 9:43 AM EDT Associated Problem(s): Restrictive lung disease - Monitor imaging, Pulmonary Function Test as indicated - Encouraged weight loss, stay active [facility] [employer] [id number] Procedure note* Ivan Quan MD - 09/06/2024 9:00 AM EDTAssociated Order(s): EXERCISE-6 MIN. WALK - 09/06/2024 6MWT: on Room Air. Dx: dyspnea - pt. walked for 6 minutes, for a distance of 700 ft (6MWD 213 m). - Baseline SpO2 at rest on room air: 99%. - Significant oxygen desaturation while walking: NO MILD; LOWEST SpO2 97% at 1 min; post-test SpO2 98%. - Dyspnea: NO, highest Mod. Chad Dyspnea Scale Score: 0. IMPRESSION: Exercise limitation: YES. Required or Qualified for Oxygen Supplementation: NO. [facility] Procedure note* Ivan Quan MD - 09/06/2024 9:00 AM EDTAssociated Order(s): PFT COMPLETE 09/06/2024 Kylie Russo is a 79 y.o. female, Date of :1945. Dx: RLD, dyspnea. Ht 61 in, Wt 152 lbs. Smoker: no. Medications not listed. Pt efforts: good. Data appear acceptable and reproducible: fair. Albuterol given for postbronchodilator spirometry. Procedure: Pulmonary Function Test PFT including spirometry, spirometry with bronchodilator response, lung volumes, Diffusion capacityand Flow Volume Loop were performed during this session. Impression: - 09/06/2024 PFT: - Spirometry - NORMAL; FEV1/FVC 85%, FEV1 2.25L 130% predicted, FVC 2.65L 114% predicted - Significant increase/response to bronchodilator: NO response during this testing (this does not preclude clinical benefit from bronchodilators). - Lung Volume - HYPERINFLATION; INCREASED TLC 8.27L 199% predicted, RV 5.65L 321% predicted - SEVERE AIR TRAPPING. - Diffusing Capacity: MILDLY REDUCED DLCO 68% predicted, DL/VA 93% (which normalizes when adjusted for lung volume, suggesting probably extraparenchymal cause; eg., body habitus, chest wall). - Flow Volume Loops - No overt upper airway obstruction pattern. Results do not exclude clinical diagnosis of asthma, reactive airway disease. Please correlate clinically. SEE SCANNED PFT RESULTS FOR DETAILS. (The above report was entered in part using voice recognition medical dictation software. Although I have reviewed this report for accuracy, certain words and phrases may not be entered as intended. Please excuse typographical and grammatical errors.) [facility]05-20-2025 Procedure note* Ivan Quan MD - 09/06/2024 9:00 AM EDTAssociated Order(s): EXERCISE-6 MIN. WALK - 09/06/2024 6MWT: on Room Air. Dx: dyspnea - pt. walked for 6 minutes, for a distance of 700 ft (6MWD 213 m). - Baseline SpO2 at rest on room air: 99%. - Significant oxygen desaturation while walking: NO MILD; LOWEST SpO2 97% at 1 min; post-test SpO2 98%. - Dyspnea: NO, highest Mod. Chad Dyspnea Scale Score: 0. IMPRESSION: Exercise limitation: YES. Required or Qualified for Oxygen Supplementation: NO. * Ivan Quan MD - 09/06/2024 9:00 AM EDTAssociated Order(s): PFT COMPLETE 09/06/2024 Kylie Russo is a 79 y.o. female, Date of :1945. Dx: RLD, dyspnea. Ht 61 in, Wt 152 lbs. Smoker: no. Medications not listed. Pt efforts: good. Data appear acceptable and reproducible: fair. Albuterol given for postbronchodilator spirometry. Procedure: Pulmonary Function Test PFT including spirometry, spirometry with bronchodilator response, lung volumes, Diffusion capacityand Flow Volume Loop were performed during this session. Impression: - 09/06/2024 PFT: - Spirometry - NORMAL; FEV1/FVC 85%, FEV1 2.25L 130% predicted, FVC 2.65L 114% predicted - Significant increase/response to bronchodilator: NO response during this testing (this does not preclude clinical benefit from bronchodilators). - Lung Volume - HYPERINFLATION; INCREASED TLC 8.27L 199% predicted, RV 5.65L 321% predicted - SEVERE AIR TRAPPING. - Diffusing Capacity: MILDLY REDUCED DLCO 68% predicted, DL/VA 93% (which normalizes when adjusted for lung volume, suggesting probably extraparenchymal cause; eg., body habitus, chest wall). - Flow Volume Loops - No overt upper airway obstruction pattern. Results do not exclude clinical diagnosis of asthma, reactive airway disease. Please correlate clinically. SEE SCANNED PFT RESULTS FOR DETAILS. (The above report was entered in part using voice recognition medical dictation software. Although I have reviewed this report for accuracy, certain words and phrases may not be entered as intended. Please excuse typographical and grammatical errors.) documented in this [facility]05-19-2025 Instructions* Patient Instructions* Alcira Anderson MD - 09/05/2024 10:50 AM EDT We discussed your weight loss and gastroparesis: [...] manage your breathing symptoms. This is part ofyour treatment for asthma and COPD. - If [...] one eye, which was successfully treated with surgery.Continue seeing your eye doctor annually for monitoring. Follow-Up: - I will see you again in 3-4 months to review your lung health and overall progress. - Please follow up with your lung specialist as scheduled and complete all recommended tests. - If you have any new or worsening symptoms, please contact our office. documented in this [facility] NoteHNO ID: [id number] Author: ALCIRA ANDERSON MD Service: ? Author Type: Physician Type: Progress Notes Filed: 09/05/2024 18:19 Note Text: Kylie Russo is a 79 year old female [...] prevention plan provided Reason for Visit HPI Bridger is a 79-year-old female with a history of diabetes mellitus, gastroparesis, asthma, COPD, and a heart murmur, presenting for evaluation of a persistent cough and significant weight loss. Bridger reports a persistent cough and dyspnea that began on 01/03. She has been experiencing wheezing and pain with coughing. She denies fever but endorses chills and feeling cold frequently. She has a history of pneumonia and is scheduled for a CT scan and pulmonary function tests tomorrow. She has been using Trelegy for asthma management and denies using her CPAP machine. Bridger has also been experiencing significant weight loss, going from a size 18 to a petite small, which she attributes to gastroparesis diagnosed in August of the previous year. She follows a strict diet with multiple food restrictions and eats six small meals a day. She denies feeling weak and exercises twice a week for 20 minutes each session. Bridger has diabetes mellitus managed with a Medtronic 780 insulin pump. She reports that her blood glucose levels are usually well-controlled, with 82% of readings within the target range. However, she notes that her blood glucose levels increase to 200-275 mg/dL during coughing episodes. She has not experienced hypoglycemia for a year until a recent episode. Bridger has a history of a detached retina [...] spray fluticasone (FLONASE) 50 mcg/actuation nasal spray prbnqzezmhf-mkaqjqnmg-pofcsiqc (TRELEGY ELLIPTA) 100-62.5-25 mcg inhalation powder zolpidem (AMBIEN) 10 mg insulin glargine (LANTUS SOLOSTAR U-100 INSULIN) 100 unit/mL (3 mL) clopidogrel (PLAVIX) 75 mg tablet losartan (COZ (more content not included)...[facility]05-19-2025 History of Present illness Narrative* Alcira Anderson MD - 09/05/2024 10:19 AM EDT Images from the original note were not included. Kylie Russo is a 79 year old female [...] Functional Observation Was the patient's Timed Up & Go test unsteady or >= 12 seconds? No Advance Care Planning Surrogate decision maker and/or advance care plan documented Measurements BP 151/71 Pulse 62 Resp 16 Ht 157.5 cm (5' 2.01) Wt 69.7 kg (153 lb 9.6 oz) SpO2 99% BMI 28.09 kg/m Vision Screening: Follows with optometry/ophthalmology Assessment/Plan Medicare annual wellness visit, subsequent (Z00.00) - Counseled on healthy diet and regular exercise - Fall avoidance information provided - Personalized prevention plan provided Reason for Visit DANUTA Gooden is a 79-year-old female with a history of diabetes mellitus, gastroparesis, asthma, COPD, blanka heart murmur, presenting for evaluation of a persistent cough and significant weight loss. Bridger reports a persistent cough and dyspnea that began on 01/03. She has been experiencing wheezingand pain with coughing. She denies fever but endorses chills and feeling cold frequently. She has ahistory of pneumonia and is scheduled for a CT scan and pulmonary function tests tomorrow. She has been using Trelegy for asthma management and denies using her CPAP machine. Bridger has also been experiencing significant weight loss, going from a size 18 to a petite small, which she attributes to gastroparesis diagnosed in August of the previous year. She follows a strict diet with multiple food restrictions and eats six small meals a day. She denies feeling weak and exercises twice a week for 20 minutes each session. rBidger has diabetes mellitus managed with a [employer] Solartronic 780 insulin pump. She reports that her blood glucose levels are usually well-controlled, with 82% of readings within the target range. However, she notes that her blood glucose levels increase to 200-275 mg/dL during coughing episodes. She has not experienced hypoglycemia for a year until a recent episode. Bridger has a history of a detached retina [...] spray fluticasone (FLONASE) 50 mcg/actuation nasal spray qqyctqqbfwo-cfhirkwdf-lpzlndfs (TRELEGY ELLIPTA) 100-62.5-25 mcg inhalation powder zolpidem [...] injection diclofenac sodium (VOLTAREN ARTHRITIS PAIN TOPICAL) lidocain-me.zyefwjn-mdpa-ekzly 0.5-20-0.035-5 % ptmd albuterol HFA (PROVENTIL HFA, [...] lb 9.6 oz) SpO2 99% BMI 28.09 kg/m GENERAL: NAD, alert and oriented. SKIN: Unremarkable, [...] chills, but no fever. Undergoing evaluation by shotgun shell reprinting unit operator, including upcoming CT scan and pulmonary function tests. - Await results of CT scan and pulmonary function tests scheduled for tomorrow. - Follow-up appointment with shotgun shell reprinting unit operator next Thursday to discuss results. 4. Type 1 diabetes mellitus with diabetic neuropathy (HCC) (E10.40) Hypoglycemia unawareness in type 1 diabetes mellitus ([facility]) (E10.649) Type 1 diabetes managed with Abound Solartronic 780 insulin pump. Reports episodes of hyperglycemia during coughing spells. Long-standing diabetic neuropathy. No recent episodes of hypoglycemia except one isolated incident. - Continue current insulin pump therapy. - Monitor blood glucose levels closely, especially during episodes of acute illness. - Follow-up with speedboat driver for ongoing diabetes management. 5. Mild intermittent asthma without complication ([facility]) (J45.20) Asthma exacerbation has led to the development of COPD. Currently managed with Trelegy inhaler. - Continue Trelegy inhaler as prescribed. - Monitor respiratory status and report any worsening symptoms. 6. Cerebral infarction, unspecified mechanism ([facility]) (I63.9) 7. Mild nonproliferative diabetic retinopathy of [...] excuse any unintended typographical errors. Recording using [employer] software for draft documentation of the visit was discussed with the patient/authorized financial services representative; all questions welcomed and answered. Patient/authorized financial services representative agreed to proceed Alcira Anderson MD documented in this encounterCleveland [id number] NoteHNO ID: [id number] Author: SHOBHA VINES APRN.CROP AND SOIL TECHNICIAN Service: ? Author Type: Nurse Practitioner Type: Progress Notes Filed: 08/29/2024 08:55 Note Text: [facility] NOTE Subjective Kylie Russo is a 79 year old year old who presents to [facility] today with complaint of 1 week of [...] a day. Infusion Set for Insulin Pump (OneTouchEMRTRONIC EXT INFUSION SET 23) iset 1 Each [...] g to affected area as needed (pain). lidocain-me.hrvqzyw-ajdb-kseya 0.5-20-0.035-5 % ptmd Apply 1 Each to [...] 125 mcg (5,000 unit) cap Take 1 (more content not included)...[facility]05-12-2025 History of Present illness Narrative* Shobha Vines APRN.CROP AND SOIL TECHNICIAN - 08/29/2024 8:46 AM EDT Images from the original note were not included. [facility] NOTE Subjective Kylie Russo is a 79 year old year old who presents to [facility] today with complaint of 1 week of [...] Nausea, vomiting, changes in bowel or bladder orskin rashes. No current medication treatments. Aside from [...] g to affected area as needed (pain). lidocain-me.hadktcn-gfco-ezfmk 0.5-20-0.035-5 % ptmd Apply 1 Each to [...] Hypertension Esophagitis Depression Anxiety State Rheumatoid Arthritis (Hcc) Sleep Apnea Vitamin Deficiency Diverticulosis of Colon Cerebral Infarction (Hcc) Lumbar Disc Herniation Restless Legs Syndrome (Rls) Calcifying Tendinitis of Shoulder Venous Insufficiency Cervicalgia Gait Abnormality Obstructive Sleep Apnea Syndrome Mixed Hyperlipidemia Gerd (Gastroesophageal Reflux Disease) Rls (Restless Legs Syndrome) Insomnia Ataxia Following Cerebral Infarction Coronary artery disease Mild Nonproliferative Diabetic Retinopathy of Both Eyes ([facility]) Hypoglycemia Unawareness in Type 1 Diabetes Mellitus ([facility]) Asthma ([facility]) H/O Multiple Allergies Insulin Pump in Place Type 1 Diabetes Mellitus With Mild Nonproliferative Retinopathy of Both Eyes Without Macular Edema ([facility]) Type 1 Diabetes Mellitus With Diabetic Neuropathy ([facility]) Class 2 Severe Obesity With Serious Comorbidity and Body Mass Index (Bmi) of 39.0 to 39.9 in Adult ([facility]) Bilateral Carotid Artery Stenosis Social History Tobacco Use Smoking status: Never Smokeless tobacco: Never Vaping Use Vaping status: Never Used Substance Use Topics Alcohol use: No Drug use: No Objective BP 122/64 Pulse 80 Temp 36.3 C (97.3 F) (Tympanic) Resp 18 Wt 69 kg (152 lb 1.9 oz) SpO2 100% BMI 27.82 kg/m Physical Exam Vitals and nursing note reviewed. [...] cough. Dispense: 21 capsule; Refill: 0 - nomkigidwcg-lieigvlzv-owqleitk (TRELEGY ELLIPTA) 100-62.5-25 mcg inhalation powder; Inhale 1 puffas instructed once daily. Dispense: 60 each; Refill: [...] sprays in each nostril two times a day.Rinse mouth after use. Dispense: 16 g; Refill: 2 Patient advised to drink fluids, get rest and take all meds as prescribed. Patient given educational materials - see instructions. Discussed use, benefit, and side effects ofprescribed medications. All questions answered. Patient advised to follow up with PCP or PULMONOLOGY in one week, or sooner if symptoms worsen or persist. If symptoms become severe- GO TO ED. Patientverbalized understanding and agreeable with treatment plan. Shobha Vines APRN, CNP 08/29/2024 8:46 AM documented in this encounterBarnesville Hospital05-12-2025 History of Present illness Narrative* Negrito Cotton Tech - 08/29/2024 8:40 AM EDT Radiology Service Progress Note PATIENT NAME: Kylie Russo DATE OF SERVICE: August 29, 2024 TIME: 8:46 AM PATIENT IDENTITY VERIFICATION COMPLETED USING TWO (2) IDENTIFIERS: Name and Date of confirmedby patient verbally. FALL SCREENING: Has the patient had 2 falls in the last year or 1 fall with injury or currently using an Ambulatory Assistive Device (Walker, Cane, Wheelchair, Crutches, etc.)? No PATIENT GENDER DATA: Assigned female at . status: : No status:NO. PATIENT RELEVANT IMPLANT DATA REVIEWED: Not Applicable PATIENT PRESENTS WITH AN IMPLANTABLE OR ATTACHED RETAIL INTERIOR DESIGNER: No RADIOLOGY DEPARTMENT: General X-ray: Exam(s) Completed: Chest X-Ray PERIPHERAL IV DATA: Not applicable SIGNED BY: Kai Early August 29, 2024 8:46 AM documented in this encounterBarnesville Hospital05-12-2025 NoteHNO ID: [id number] Author: NEGRITO COTTON Tech Service: ? Author Type: Technologist Type: Progress Notes Filed: 08/29/2024 08:55 Note Text: Radiology Service Progress Note PATIENT NAME: Kylie Russo DATE OF SERVICE: August 29, 2024 [...] PATIENT PRESENTS WITH AN IMPLANTABLE OR ATTACHED RETAIL INTERIOR DESIGNER: No RADIOLOGY DEPARTMENT: General X-ray: Exam(s) Completed: Chest X-Ray PERIPHERAL IV DATA: Not applicable SIGNED BY: Kai Early August 29, 2024 8:46 [facility]05-12-2025 Instructions* Patient Instructions* Shobha Vines APRN.CROP AND SOIL TECHNICIAN - 08/29/2024 8:34 AM EDT [facility] PATIENT INFO ALLERGIC RHINITIS OVERVIEW Rhinitis refers to inflammation of the nasal passages. This inflammation can cause a variety of annoying symptoms, including sneezing, itching, nasal congestion, runny nose, and post-nasal drip (the sensation that mucus is draining from the sinuses down the back of the throat). Brief episodes of rhinitis are usually caused by respiratory tract infections with viruses (eg, thecommon cold). Chronic rhinitis is usually caused by [...] approximately 20 percent of people of all ages.The risk of developing allergic rhinitis is much higher in people with asthma or eczema and in people who have a family history of asthma or rhinitis. Allergic rhinitis can begin at any age, although most people first develop symptoms in childhood oryoung adulthood. The symptoms are often at their [...] experience problems with their eyes, throat, ears, andsleep, so it is helpful to consider the [...] present year round, the predominant symptoms include post- nasal drip, persistent nasal congestion, and poor-quality sleep. [...] can reduce a person's exposure to allergens andtriggers that provoke allergic rhinitis. Several different classes [...] by rinsing out allergens and irritants from thenose. Saline rinses also clean the nasal lining and can be used before applying sprays containing medications, to get a better effect from the medication. Nasal lavage with warmed saline can be performed as needed, once per day, or twice daily for increased symptoms. Nasal lavage carries few risks when performed correctly. Saline nasal sprays and irrigation kits can be purchased [id number]. Saline mixes can also be purchased or patients can make their own solution. A variety of devices, including bulb syringes, Neti pots, and bottle sprayers, may be used to perform nasal lavage; instructions for nasal lavage are provided in the table. At least 200 mL (about 3/4cup) of fluid is recommended for each nostril. [...] nasal glucocorticoids available by prescription. Specific medications includefluticasone, mometasone, budesonide, flunisolide, triamcinolone, beclomethasone, fluticasone furoate, [...] the winter. These problems can be minimized byreducing the dose of the nasal steroid, applying [...] can have side effects, especially when taken forlong periods of time. However, the doses used in nasal steroids are low and are NOT associated withthese side effects. However, clinicians usually recommend using [...] years without a prescription, including brompheniramine (Dimetapp allergy , Nasahist B ), chlorpheniramine (Chlor-Trimeton ), diphenhydramine (Benadryl ), and clemastine (Tavist ). These drugs often cause sedation and should not be used before driving or operating machinery. Even if the person does not feel excessively drowsy, these drugs can have a sedating effect. Thus, patients should use caution. Less-sedating oral antihistamines include Loratadine (Claritin , Alavert ), desloratadine (Clarinex), cetirizine (Zyrtec ), levocetirizine (Xyzal ), and fexofenadine (Parvin ). Loratadine and cetirizine are available without a prescription. These drugs work as well as the sedating antihistamines for rhinitis, but they are less sedating and are available in long-acting formulas. However, they may be more expensive. Nasal sprays -- Azelastine (Astelin ) and olopatadine (Patanase ) are prescription nasal antihistamine sprays that can be used daily or when needed to relieve symptoms of post-nasal drip, congestion,and sneezing. These sprays start to work within minutes after use. The most common side effect with azelastine is a bad taste in the mouth immediately after use. This can be minimized by keeping the head tilted forward while spraying, to prevent the medicine from draining down the throat. Decongestants -- Decongestants (like pseudoephedrine or phenylephrine [Sudafed , Actifed , Drixoral]) are often combined with antihistamines in oral, tyra-jkv-kbjopkk allergy drugs. In the [place], pseudoephedrine has been used to make illegal drugs, which caused many companies to substitute phenylephrine for pseudoephedrine. However, phenylephrine is not effective for treating allergic rhinitis. Oral decongestants elevate blood pressure and are not appropriate for people with high blood pressure or certain cardiovascular conditions. Men with an enlarged prostate who have difficulty urinatingmay notice a worsening of this symptom when they take decongestants. Decongestants in the form of nasal sprays are also available, including oxymetazoline (Afrin ) and phenylephrine (Billy-synephrine ). Nasal decongestant sprays should not be used [...] 3 days. Cromolyn sodium -- Cromolyn sodium (Nasalcrom ) prevents the symptoms of allergic rhinitis by interfering with the ability of allergy cells to release natural chemicals that cause inflammation. This drug is available as an hdko-jqw-ertsbip nasal spray that must be used three to four times per day, p referably before symptoms have begun, to effectively prevent the symptoms of allergic rhinitis. Allergy shots -- Allergy shots, also known as allergen immunotherapy, are injections given to reduce a person's sensitivity to allergens. Allergy shots are only available for common allergens, such as pollens, cat and dog dander, dust mites, and molds. These shots contain solutions of the allergensto which a specific person is allergic, and [...] to medication, or want to avoid taking medica tions long-term. Immunotherapy can be expensive, but many insurance plans cover the therapy becauselong-term use of allergy medications is also costly. Immunotherapy is usually started by an card grader. Treatment begins with several months of weekly [...] to treat these reactions, people who take beta- blockers are often advised to avoid immunotherapy. Other treatments -- Other drugs may be recommended for some people with allergic rhinitis. Ipratropium -- Nasal atropine is effective for the treatment of severe runny nose. This drug, available as ipratropium bromide (Atrovent ), is not generally recommended for people with glaucoma or men with an enlarged prostate. Leukotriene modifiers -- Release of substances called leukotrienes may contribute to the symptoms of allergic rhinitis. Drugs that block the actions of leukotrienes, called leukotriene modifiers, canbe very useful in patients with asthma and [...] the MDI about 2 inches in front ofyour mouth. 4. Breathe in and out 1 [...] rinse your mouth with water or mouthwash aftereach use. TO USE AN MDI WITH A [...] rinse your mouth with water or mouthwash aftereach use. CARING FOR YOUR MDI AND SPACER [...] you press the inhaler. Ask your health director medicare sales for more information on these devices. *This [...] severe headache, neck stiffness, or feel confused. [facility] Miscellaneous Notes* Telephone Encounter - Nannette Padilla RN - 08/17/2024 8:15 AM EDT Pt calling in to let Hernesto Harvey know that she saw her Customer Pricing Manager physician in [place] recently and is going to be having some testing done on 09/06. Pt given fax number for Hernesto Harvey to have the shotgun shell reprinting unit operator send us notes and results. documented in this [facility]Barn[facility]04-[facility] Telephone encounter Note * Telephone Encounter - Nannette Padilla RN - 08/17/2024 8:15 AM EDT Pt calling in to let Hernesto Harvey know that she saw her Customer Pricing Manager physician in [place] recently and is going to be having some testing done on 09/06. Pt given fax number for Hernesto Harvey to have the shotgun shell reprinting unit operator send us notes and results. [facility]04-17-[facility] Telephone encounter Note* Telephone Encounter - Ana Harrison RN - 08/04/2024 11:37 AM EDT [employer] called in and GABY notes faxed per their request. Ana Harrison RN [facility]04-17-2025 Miscellaneous Notes* Telephone Encounter - Ana Harrison RN - 08/04/2024 11:37 AM EDT [employer] called in and GABY notes faxed per their request. Ana Harrison RN * Telephone Encounter - Magalys Mera RN - 08/04/2024 9:14 AM EDT Certificate of medical necessity (CMN) completed and signed by Dr. Nielsen for Pt's insulin pump and supplies faxed back to [employer]. Fax confirmation received. Magalys Mera RN August 04, 2024 9:18 AM documented in this encounterBarn[facility]04-17-[facility]25 Telephone encounter Note * Telephone Encounter - Magalys Mera RN - 08/04/2024 9:14 AM EDT Certificate of medical necessity (CMN) completed and signed by Dr. Nielsen for Pt's insulin pump and supplies faxed back to [employer]. Fax confirmation received. Magalys Mera RN August 04, 2024 9:18 AM [facility]04-[facility] Evaluation + Plan note* Assessment & Plan Note - Omayra Herndon CNP - 07/26/2024 10:18 AM EDTAssociated Problem(s): 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 Try second generation antihistamine [facility]04-08-2025 Miscellaneous Notes* Assessment & Plan Note - Omayra Herndon CNP - 07/26/2024 10:18 AM EDTAssociated Problem(s): 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 Try second generation antihistamine * Assessment & Plan Note - Omayra Herndon CNP - 07/26/2024 10:15 AM EDT Associated Problem(s): Chronic cough Try OTC Nexium and loratadine * Assessment & Plan Note - Omayra Herndon CNP - 07/26/2024 9:27 AM EDT Associated Problem(s): Restrictive lung disease - Monitor imaging, Pulmonary Function Test as indicated - Encouraged weight loss, stay active [facility] Evaluation + Plan note * Assessment & Plan Note - Omayra Herndon CNP - 07/26/2024 10:15 AM EDT Associated Problem(s): Chronic cough Try OTC Nexium and loratadine [facility]04-08-2025 Evaluation + Plan note* Assessment & Plan Note - Omayra Herndon CNP - 07/26/2024 9:27 AM EDTAssociated Problem(s): Restrictive lung disease - Monitor imaging, Pulmonary Function Test as indicated - Encouraged weight loss, stay active [facility]04-08-2025 History of Present illness Narrative* Nara Little LPN - 07/26/2024 9:20 AM EDT Neck circumference - Currently smoking or Hx of smoking - Oxygen use __No____ patient is benefiting from oxygen use. Do you have a CPAP-Yes, not using DME company- Most recent CT-08/14/23 Most recent PFT- 08/14/23 Symptoms include:SOB,Cough,Wheezing Increase in shortness of breath-No Dyspnea upon exertion-yes Dyspnea at rest-When getting back up Cough- productive-Dry, sometimes causes bloody nose with blood cough Have you had the Covid 19 vaccine-Yes Do you need a Medication refill? Pt presents for review of Follow up for PFT and 6 min not done Maintenance medication - No Maintenance zzjbdod-dfmfikn-aqw using Rescue medication-Albuterol Follow up for PFT and 6 min not done * Omayra Herndon CNP - 07/26/2024 9:20 AM EDT [facility] PULMONARY DISEASE [facility] Service Date:.07/26/24 PCP: Alcira Anderson Chief Complaint Follow-up visit for shortness of breath at times, including ongoing management and care coordination. HPI Kylie Russo is a 78 y.o. female presents to the [facility] today due to some shortness of breath at times. Patient has an inhaler but has not needed it. She states simply taking a deep breath will resolve her shortness of breath. She offers complaints of a chronic cough. She was been diagnosed with chronic sinusitis. Despite multiple antibiotics her symptoms have persisted. Her symptoms started in December after a COVID diagnosis. She has to sleep at an incline at night which improves her cough. She was not taking any antihistamines or proton pump inhibitors. Recent changes in medication or therapy: None Other related health concerns that can impact pulmonary function, exacerbate symptoms, or complicate treatment were considered and are listed below Neck circumference - Currently smoking or Hx of smoking - Oxygen use __No____ patient is benefiting from oxygen use. Do you have a CPAP-Yes, not using [employer] company- Most recent CT-08/14/23 Most recent PFT- 08/14/23 Symptoms include:SOB,Cough,Wheezing Increase in shortness of breath-No Dyspnea upon exertion-yes Dyspnea at rest-When getting back up Cough- productive-Dry, sometimes causes bloody nose with blood cough Have you had the Covid 19 vaccine-Yes Do you need a Medication refill? Pt presents for review of Follow up for PFT and 6 min not done Maintenance medication - No Maintenance innubwb-xojynev-apu using Rescue medication-Albuterol Follow up for PFT and 6 min not done Review of Systems: Review of Systems Constitutional: Negative. HENT: Positive for congestion. Eyes: Negative. Negative for discharge. Respiratory: Positive for cough and shortness of breath. Negative for apnea. Cardiovascular: Negative. Negative for chest pain. Gastrointestinal: Negative. Negative for abdominal distention. Musculoskeletal: Negative. Negative for gait problem. Skin: Negative. Negative for color change. Neurological: Negative. Negative for facial asymmetry. Psychiatric/Behavioral: Negative. Negative for agitation. All other systems reviewed and are negative. Past Medical History: No past medical history on file. Past Surgical History: No past surgical history on file. Allergies: Allergies Allergen Reactions Acetaminophen Amitriptyline Amoxicillin-Pot Clavulanate Cefadroxil Ephedrine Levofloxacin Oxycodone Sulfa Antibiotics Aspirin Dipyridamole Doxycycline Pregabalin Immunizations: Immunization History Administered Date(s) Administered [id number] COVID-19 monovalent vaccine, mRNA, Pfizer, 0.3 ML 06/06/2020, 06/28/2020, 01/13/2021 COVID-19 monovalent vaccine (Pfizer) 12yr +, 30mcg/0.3mL 07/30/2021 COVID-19 bivalent vaccine (Pfizer) 12yr +, 30mcg/0.3mL 01/03/2022 COVID-19 ADJUVANTED (NOVAVAX) 12+YR, 5MCG/0.5ML ([id number]) 05/02/2024 COVID-19 mRNA, (MODERNA) 12yr+ 50 mcg/0.5mL 04/28/2023 Medications: Patient's Medications New Prescriptions MISC. DEVICES MISC 1 Each by Unknown route daily. Incentive spirometer Previous Medications ALBUTEROL 108 (90 BASE) MCG/ACT AERO SOLN INHALER Inhale 2 puffs every 4 hours as needed for Shortness of Breath, Respiratory Distress or Wheezing. GARGLE, RINSE MOUTH AFTER USE AMLODIPINE 5 MG TAB TABLET ATORVASTATIN 40 MG TABLET atorvastatin 40 mg tablet take 1 tablet by mouth once daily BIOTIN 1000 MCG TABLET Take 1 tablet by mouth daily. BLOOD GLUCOSE MONITORING SUPPL (CONTOUR BLOOD GLUCOSE SYSTEM) W/DEVICE KIT Dispense 1 kit. Dx: Type1 DM - Controlled E10.9 CONTINUOUS BLOOD GLUC SENSOR (LivBlendsSTYLE XANDER 14 DAY SENSOR) MISC DEXTROMETHORPHAN-GUAIFENESIN 30-200 MG/5ML LIQUID Take 5 mL by mouth every 4 hours as needed for Other or Cough (cough). DICLOFENAC SODIUM 1 % GEL GEL diclofenac VOLTAREN 1 % GEL apply topically twice daily as needed DICLOFENAC SODIUM [id number] Leandra Whitney RN 01-31-2014 [facility] ([id number]) DICLOFENAC SODIUM 1 % GEL GEL apply 3 grams to THE PAINFUL AREA topically once daily for 28 DAYS DOCUSATE 100 MG CAPSULE Take 1 capsule by mouth 2 times daily. ERGOCALCIFEROL 1.25 MG (63738 UT) CAPSULE Take by mouth. DKCKGTUYLKI-ETODREXNZ-[id number] (TRELEGY ELLIPTA) 200-62.5-25 MCG/ACT AEROSOL POWDER, BREATH ACTIVATEDInhale 1 puff daily. FUROSEMIDE 20 MG TABLET furosemide 20 mg tablet take 1 tablet by mouth every other day GLUCOSE BLOOD TEST STRIPS (ASCENSIA MICROFILL TEST) STRIP STRIP Test blood sugar(s) 6 times daily. Dx: Type 1 DM - Controlled E10.9 Insulin: Yes HYDROXYCHLOROQUINE 200 MG TABLET 1 po q day INSULIN GLARGINE 100 UNIT/ML VIAL 46 units every 24 hr for insulin pump failure INSULIN LISPRO 100 UNIT/ML VIAL Humalog U-100 Insulin 100 unit/mL subcutaneous solution USE DIRECTED IN INSULIN PUMP UP TO 110 UNITS DAILY INSULIN SYRINGE-NEEDLE U-100 (INSULIN SYRINGE 1CC/31GX5/16) 31G X 5/16 1 ML MISC use as directed if pump fails up to 6 times daily LANSOPRAZOLE [address] CAPSULE LOSARTAN 100 MG TABLET MULTIPLE VITAMIN (MULTI-VITAMINS) TAB MULTIPLE VITAMIN MULTIVITAMINS TABS One tablet by mouth [id number] MULTIPLE VITAMIN [id number] Amara Troy 11[birth year]2010 [facility] ([id number]) NITROGLYCERIN 0.4 MG/SPRAY SOLUTION nitroglycerin NITROLINGUAL 0.4 MG/SPRAY SOLN 1 spray under tongue every 5min up to 3 X (400mcg per spray) NITROGLYCERIN [id number] Leon Seaman MD 11-30-2012 Debora Myers RN [facility] ([id number]) PRAMIPEXOLE 1 MG TABLET At bedtime. PREDNISONE 10 MG TABLET Take 4 tablets by mouth for 3 days, then take 3 tablets by mouth for 3 days, then take 2 tablets by mouth for 3 days, 1 tablet for 3 days PREDNISONE 5 MG TABLET 8 po q AM for 1 day decrease by 1 pill a day until off - to be used on a PRNbasis PROBIOTIC CAPSULE Take 1 capsule by mouth daily. RA VITAMIN D-3 125 MCG (5000 UT) CAP CAPSULE TRAMADOL 50 MG TAB TABLET Modified Medications No medications on file Discontinued Medications No medications on file Family History: History reviewed. No pertinent family history. Social History: Social History Socioeconomic History Marital status: Spouse name: Not on file Number of children: Not on file Years of education: Not on file Highest education level: Not on file Occupational History Not on file Tobacco Use Smoking status: Never Smokeless tobacco: Never Substance and Sexual Activity Alcohol use: Never Drug use: Not on file Sexual activity: Never Other Topics Concern Not on file Social History Narrative Not on file Social Drivers of Health Financial Resource Strain: High Risk (12/07/2023) [facility] Overall Financial Resource Strain (CARDIA) Difficulty of Paying Living Expenses: Very hard Food Insecurity: Food Insecurity Present (12/07/2023) [facility] Hunger Vital Sign Worried About Running Out of Food in the Last Year: Often true Ran Out of Food in the Last Year: Often true Transportation Needs: No Transportation Needs (12/07/2023) Re[facility] PRAPARE - Transportation Lack of Transportation (Medical): No Lack of Transportation (Non-Medical): No Physical Activity: Insufficiently Active (12/07/2023) [facility] Exercise Vital Sign Days of Exercise per Week: 3 days Minutes of Exercise per Session: 20 min Stress: Patient Declined (12/07/2023) [facility] [employer] [place] [employer] - Occupational Stress Questionnaire Feeling of Stress : Patient declined Social Connections: Unknown (12/07/2023) Re[facility] from [facility] Social Connection and Isolation Panel [NHANES] Frequency of Communication with Friends and Family: More than three times a week Frequency of Social Gatherings with Friends and Family: Patient declined Attends Uatsdin Services: Patient declined Active Member of Clubs or Organizations: No Attends Club or Organization Meetings: Never Marital Status: Personal Safety: Not on file Housing Stability: Unknown (12/07/2023) Re[facility] Housing Stability Vital Sign Unable to Pay for Housing in the Last Year: Patient declined Number of Times Moved in the Last Year: Not on file Homeless in the Last Year: Not on file Physical Exam: Physical Exam Vitals and nursing note reviewed. Constitutional: Appearance: Normal appearance. She is not ill-appearing. HENT: Head: Normocephalic. Comments: Maxillary sinus pressure on palpation Right Ear: External ear normal. Left Ear: External ear normal. Nose: Nose normal. Mouth/Throat: Mouth: Mucous membranes are moist. Eyes: Pupils: Pupils are equal, round, and reactive to light. Cardiovascular: Rate and Rhythm: Normal rate. Pulmonary: Effort: Pulmonary effort is normal. No respiratory distress. Breath sounds: Normal breath sounds. Abdominal: General: There is no distension. Musculoskeletal: General: Normal range of motion. Cervical back: Normal range of motion. Skin: General: Skin is warm and dry. Capillary Refill: Capillary refill takes less than 2 seconds. Neurological: General: No focal deficit present. Mental Status: She is alert. Psychiatric: Behavior: Behavior normal. Vital Signs During Visit BP 118/78 (BP Location: Left arm, BP Position: Sitting) Pulse 63 Temp 97.3 F (36.3 C) (Temporal) Resp 16 Ht 1.6 m (5' 3) Wt 68.9 kg (152 lb) SpO2 99% Comment: R/A BMI 26.93 kg/m Smoking Status Never Orders/Results: Orders Placed This Encounter CT CHEST WITHOUT CONTRAST PFT COMPLETE EXERCISE-6 MIN. WALK Misc. Devices Misc Results for orders placed or performed in visit on 12/04/22 MINI-PANEL ALLERGEN PROFILE Result Value Ref Range CLASS DESCRIPTION Comment BERMUDA GRASS IGE <0.10 Class <0.10 House Dust Mites/D.P., Class <0.10 ELM, IGE <0.10 Allergen, [place] Plantain IgE <0.10 BLUE[place]ASS, [place] <0.10 OAK, WHITE <0.10 SHORT RAGWEED, IGE <0.10 House Dust Mites/D.F.,Class <0.10 ALTERNARIA ALTERNATA <0.10 Mouse Urine Protein, IgE <0.10 Allergen, Dog Dander IgE <0.10 ALLERGEN PROFILE, MOLD Result Value Ref Range CLASS DESCRIPTION Comment CLADOSPORIUM HERBARUM IGE <0.10 Aspergillus fumigatus IgE <0.10 IGE MUCOR RACEMOSUS <0.10 IGE GODFREY ALBICANS <0.10 IGE AUREOBASIDIUM PULLUL <0.10 Allergen, Fungi/Mold, Phoma betae IgE <0.10 IGE EPICOCCUM PURPURASCE <0.10 PENICILLIUM CHRYSOGEN <0.10 ALTERNARIA ALTERNATA <0.10 Fusarium Proliferatum <0.10 STEMPHYLIUM HERBARUM <0.10 SETOMELANOMMA ROSTRAT <0.10 IMMUNOGLOBULIN IGE Result Value Ref Range IMMUNOGLOBULIN IGE 5 (L) CBC, EDIF, PLATELET Result Value Ref Range WBC (WHITE BLOOD COUNT) 6.3 3.6 - 11.0 10*3/uL RBC 4.00 4.0 - 5.4 10*6/uL HEMOGLOBIN (HGB) 13.0 12.0 - 16.0 G/DL HEMATOCRIT (HCT) 38.2 36.0 - 48.0 % MEAN CELL VOLUME 95.7 80.0 - 100.0 FL Mean Cell HGB 32.5 26.0 - 35.0 PG MEAN CELL HGB CONCENTRATION 34.0 27.0 - 37.0 G/DL RBC DISTRIBUTION 14.7 (H) 11.5 - 14.5 % PLATELET COUNT 218 130 - 400 10*3/uL MEAN PLATELET VOLUME 9.9 7.4 - 11.0 FL DIFFERENTIAL TYPE AUTO DIFF % NEUTROPHILS 64.7 37.0 - 75.0 % LYMPHOCYTE 22.3 20.0 - 55.0 % MONOCYTE % 10.9 (H) 0.0 - 10.0 % EOSINOPHIL % 1.7 0.0 - 11.0 % BASOPHIL % 0.4 0.0 - 2.0 % Absolute Neutrophil Count 4.1 1.4 - 6.5 10*3/uL LYMPHOCYTES, ABSOLUTE 1.4 1.2 - 3.4 10*3/uL MONOCYTES, ABSOLUTE 0.7 0.0 - 0.7 10*3/uL ABSOLUTE EOSINOPHIL COUNT 0.1 0.0 - 0.7 10*3/uL ABSOLUTE BASOPHIL COUNT 0.0 0.0 - 0.2 10*3/uL ALPHA 1 ANTITRYPSIN Result Value Ref Range Uxvkw-6-Veqlrvizepj 146 CK Result Value Ref Range CK 160 (H) 30 - 135 IU/L COMPREHENSIVE METABOLIC PANEL Result Value Ref Range Glucose 262 (H) 70 - 100 MG/DL BUN 20 7 - 20 MG/DL CREATININE SERUM 0.68 (L) 0.70 - 1.20 MG/DL SODIUM 141 137 - 145 MMOL/L Potassium 3.8 3.5 - 5.1 MMOL/L CHLORIDE 107 98 - 107 MMOL/L CALCIUM 9.6 8.4 - 10.2 MG/DL PROTEIN, TOTAL 7.4 6.3 - 8.2 GM/DL Albumin 4.2 3.5 - 5.0 G/dl BILIRUBIN, TOTAL 1.1 0.2 - 1.3 MG/DL AST 39 (H) 14 - 36 IU/L ALKALINE PHOSPHATASE 132 (H) 38 - 126 IU/L CARBON DIOXIDE (CO2) 24 22 - 30 MMOL/L A/G Ratio 1.3 RATIO ALT 38 (H) <35 IU/L ESTIMATED GFR, NON AMER 89 ml/min/1.73sq.m ESTIMATED GFR, 108 ml/min/1.73sq.m GFR COMMENT Average GFR for 70+ years old = 75. RHEUMATOID FACTOR Result Value Ref Range RHEUMATOID FACTOR <8.6 <12 Iu/mL SEDIMENTATION RATE, AUTOMATED Result Value Ref Range SEDIMENTATION RATE AUTOMATED 44 (H) 0 - 30 MM/HR SJOGREN'S AB SSA,SSB Result Value Ref Range Sjogrens Antibodies (SS-A) <0.2 Sjogrens Antibody (SS-B) <0.2 CYCLIC CITRULLINATE PEPTIDE AB Result Value Ref Range CYCLIC CITRULLINATE PEPTIDE AB 6 C REACTIVE PROTEIN Result Value Ref Range C-Reactive Protein <5.0 0 - 10 MG/L ANTI-SCLERODERMA AB (SCL70) Result Value Ref Range ANTI-SCLERODERMA AB (SCL70) <0.2 ANGIOTENSIN CONVERTING ENZYME Result Value Ref Range Angiotensin Converting Enzyme 84 (H) ANCA INIT SCRN (ANCA, PR3AB, MPO) Result Value Ref Range ANTI-MYELOPEROXIDASE AB <0.2 ANTI-PROTEINASE 3 AB <0.2 C-ANCA (PR3) (ANTI NEUTROPHIL CYTOPLASMIC ANTIBODY) <1:20 P-ANCA TITER <1:20 ATYPICAL P-ANCA TITER <1:20 SUSI MULTIPLEX SCRN WITH REFLEX Result Value Ref Range SUSI-DIRECT Negative Recent Imaging: CT CHEST WITHOUT CONTRAST Narrative: EXAMINATION: CT CHEST WITHOUT CONTRAST, , 08/14/2023 2:17 PM EDT INDICATION: Interstitial lung disease COMPARISON: CT from 12/04/2022. TECHNIQUE: CT scan of the chest was performed without IV contrast. CT dose reduction technique was used, including Automated Exposure Control. IV CONTRAST: None FINDINGS: MEDIASTINUM: Visualized airways are patent. Heart is normal in size without pericardial effusion. Thoracic aorta is normal in caliber. There are mild to moderate aortic valve calcifications. No enlarged lymph nodes are identified. CORONARY ARTERIES: Coronary calcifications are heavy. PLEURAL CAVITY: No pleural effusion or thickening is noted. LUNGS: There is mild subpleural reticular abnormality in the lungs with a basilar and peripheral predominance. There is no honeycombing. There is mild bronchiectasis in the lung bases and midlungs. No significant nodules. No significant mosaic attenuation. CHEST WALL/AXILLA: No axillary lymphadenopathy VISUALIZED UPPER ABDOMEN: No acute findings. BONES: No destructive lesions. Multilevel degenerative spondylosis is demonstrated throughout the thoracic spine. Impression: IMPRESSION: Findings of probable UIP pattern interstitial lung disease, not significantly changed from prior. Heavy coronary calcification. Mild to moderate aortic valve calcification. Medical Decision Making Complexity Justification Longitudinal management of complex or chronic condition/s requiring continuous assessment and adjustment Coordination of care with ENT and primary care provider Discussion of disease progression, therapy response, and patient adherence Shared decision-making regarding ongoing therapy Data Review and Analysis: The test results, patient history, and vital signs noted above have been reviewed Risk and Treatment Considerations: Risk of complications and consideration for escalation of care discussed Comorbid conditions listed above including their impact on pulmonary health and treatment plan was considered Assessment and Plan: Patient will follow up in 3 weeks. We can take a look at a new CT of the chest and obtain pulmonaryfunction tests prior to this visit. I suspect her chronic cough is secondary to this persistent maxillary sinusitis that has not responded to oral antibiotics. It is possible this is a long COVID andrelated to some chronic inflammation or hypersensitivity to irritants. Regardless, she agrees to trial proton pump inhibitor and second-generation antihistamine. We will follow up in 3 weeks and discuss any improvement of her symptoms. Problem List Items Addressed This Visit Respiratory Restrictive lung disease - Primary - Monitor imaging, Pulmonary Function Test as indicated - Encouraged weight loss, stay active Relevant Medications Misc. Devices Misc Other Relevant Orders PFT COMPLETE CT CHEST WITHOUT CONTRAST EXERCISE-6 MIN. WALK Chronic cough Try OTC Nexium and loratadine 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 Try second generation antihistamine Patient Education & Counseling: Reviewed medication adherence, inhaler technique as indicated, and symptom monitoring Discussed abstaining from smoking - including second hand, weight management, and vaccination recommendations Emphasized importance of follow-up care to prevent exacerbations Return in about 3 weeks (around 08/16/2024). New Prescriptions MISC. DEVICES MISC 1 Each by Unknown route daily. Incentive spirometer Discontinued Medications No medications on file Clinical Impression: 1. Restrictive lung disease 2. Chronic cough 3. 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 Patient was advised to call with any [...] understanding and agreement to proceed with plan. Some elements copied from previous notes. I have updated where appropriate, and all reflect currentmedical decision making from today's encounter. Note: This dictation was generated using voice recognition software. Please excuse any typographical, grammatical or spelling errors that may have occurred using the system Note to patient: The Century Cures Act makes medical notes like these available to patients inthe interest of transparency. However, be advised this is a medical document. It is intended as jxot-fd-tigo communication. It is written in medical language and may contain abbreviations or verbiagethat are unfamiliar. It may appear blunt or direct. Medical documents are intended to carry relevant information, facts as evident, and the clinical opinion of the practitioner. Omayra Herndon CNP, WHEELAGE CLERK-C Pulmonary/Critical Care Medicine [facility] 07/26/2024 documented in this encounterOhiohealth [facility]04-08-2025 Instructions* Patient Instructions* Omayra Herndon CNP - 07/26/2024 9:20 AM EDT Nexium for GERD and loratadine for sinusitis documented in this encounterOhiohealth [facility]04-02-2025 Telephone encounter Note* Telephone Encounter - Hernesto Harvey APRN.CNP - 07/20/2024 4:39 PM EDT [facility]. All prescriptions have been APPROPRIATELY filled. No suspiciousactivity was identified. 07/20/2024 by Hernesto Harvey APRN.CNP [facility]04-02-2025 Miscellaneous Notes* Telephone Encounter - Hernesto Harvey APRN.CNP - 07/20/2024 4:39 PM EDT PDMP website checked and validated. All prescriptions have been APPROPRIATELY filled. No suspiciousactivity was identified. 07/20/2024 by Hernesto Harvey APRN.CNP documented in this encounterBarnesville Hospital02-19-2025 Telephone encounter Note * Telephone Encounter - Camille Hinton RN - 06/08/2024 10:45 AM ESTSummary: New ILD Interstitial Lung Disease Referral Intake Patient: Kylie Russo Date: June 08, 2024 10:50 AM Schedulers: --Please schedule patient with any ILD provider ILD Dr. Ilene Casillas: [facility]. Dr. Roslyn Chicas: [facility] & [place] (2023). Dr. Patterson: [facility] & [facility]. Dr. Ada Donato: [facility] & [place]. Dr. Ange Marcelino: [facility]. ILD/Sarcoid Dr. Romy Zazueta: [facility] & [place]. Dr. Doug Mckeon: [facility] & [facility] ([place]). Dr. Bryan Perla: [facility] and [facility] ([facility]). Dr. Rajan Oh: [facility], [facility], & [place]. Dr. Chavez Monroe: [facility] & [place]. Dr. Adelfo Munroe: [facility], [facility] ([facility]) & [facility] ( [facility]). Sarcoid/ILD Pulmonary [place]: [facility] ( afternoon). Dr. Ange Marcelino: [facility]. & [place]. ILD/Sarcoid/Beryllium/Occupational Dr. Patricia Armenta: [facility], [place], [place], & [place]. Testing needed: Spirometry w/ bronchodilator if obstructed, DLCO, and High Resolution CT Chest. MyChart: Already set up. *Remind patient to bring imaging disc in hand. Consult information: Referred by: Dr. Alyssa Simmons Office name/city: [facility] Diagnosis: ILD (possibly related to [...] and hand carry this to your appointment. Camille Hinton RN [facility]02-19-2025 Miscellaneous Notes* Telephone Encounter - Camille Hinton RN - 06/08/2024 10:45 AM ESTSummary: New ILD Interstitial Lung Disease Referral Intake Patient: Kylie Russo Date: June 08, 2024 10:50 AM Schedulers: --Please schedule patient with any ILD provider ILD Dr. Ilene Casillas: [facility]. Dr. Roslyn Chicas: [facility] & [place] (2023). Dr. Patterson: [facility] & [facility]. Dr. Ada Donato: [facility] & [place]. Dr. Ange Marcelino: [facility]. ILD/Sarcoid Dr. Romy Zazueta: [facility] & [place]. Dr. Doug Mckeon: [facility] & [facility] ([place]). Dr. Bryan Perla: [facility] and [facility] ([facility]). Dr. Rajan Oh: [facility], [facility], & [place]. Dr. Chavez Monroe: [facility] & [place]. Dr. Adelfo Munroe: [facility], [facility] ([facility]) & [facility] ( [facility]). Sarcoid/ILD Pulmonary [place]: [facility] ( afternoon). Dr. Ange Marcelino: [facility]. & [place]. ILD/Sarcoid/Beryllium/Occupational Dr. Patricia Armenta: [facility], [place], [place], & [place]. Testing needed: Spirometry w/ bronchodilator if obstructed, DLCO, and High Resolution CT Chest. MyChart: Already set up. *Remind patient to bring imaging disc in hand. Consult information: Referred by: Dr. Alyssa Simmons Office name/city: [facility] Diagnosis: ILD (possibly related to [...] and hand carry this to your appointment. Camille Hinton RN documented in this encounterBarnesville Hospital02-17-2025 NoteHNO ID: [id number] Author: HERNESTO HARVEY APRN.CROP AND SOIL TECHNICIAN Service: ? Author Type: Nurse Practitioner Type: Progress Notes Filed: 06/06/2024 08:08 Note Text: CC: Patient presents with: Recheck: Medication follow up HPI Kylie Russo is a 78 year old female who presents today for follow up on medications. Chronic Insomnia: Ambien working well. Getting 6 or more hours of sleep with current dose and tolerating well. Denies falls, confusion, or new concerns. Still with sinusitis. Following with ENT in [place], Dr. Umaña. Has a CT of the sinuses scheduled today at [facility]. HTN: Ms. Russo denies headache, chest pain, palpitations, change in chronic dyspnea, and peripheral edema. Patient denies any side effects of her medication(s) and is compliant with their regimen. She checks her BP at home but states it varies from 110s-130s/60s Kylie has been trying to increase her physical [...] TUNNEL BILATERRAL 08/08/2005 Coronary artery disease involving confederated salish coronary artery Dr. 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 fa (more content not included)...[facility]02-17-[facility] History of Present illness Narrative* Hernesto Harvey APRN.CROP AND SOIL TECHNICIAN - 06/06/2024 7:28 AM EST CC: Patient presents with: Recheck: Medication follow up HPI Kylie Russo is a 78 year old female who presents today for follow up on medications. Chronic Insomnia: Ambien working well. Getting 6 or more hours of sleep with current dose and tolerating well. Denies falls, confusion, or new concerns. Still with sinusitis. Following with ENT in [place], Dr. Umaña. Has a CT of the sinuses scheduled today at [facility]. HTN: Ms. Russo denies headache, chest pain, palpitations, change in chronic dyspnea, and peripheral edema. Patient denies any side effects of her medication(s) and is compliant with their regimen. She checks her BP at home but states it varies from 110s-130s/60s Kylie has been trying to increase her physical [...] TUNNEL BILATERRAL 08/08/2005 Coronary artery disease involving confederated salish coronary artery Dr. 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 lidocain-me.rznyvgt-gtkf-tkycb 0.5-20-0.035-5 % ptmd Apply 1 Each to [...] kg (150 lb) SpO2 97% BMI 27.44 kg/m General Appearance: well appearing, in no [...] All prescriptions have been APPROPRIATELY filled. No suspiciousactivity was identified. 06/06/2024 by Hernesto Harvey APRN.CNP 2. Essential hypertension - ICD9: 401.9, ICD10: [...] symptoms occur. Patient agreeable to treatment plan. Hernesto Harvey APRN.CNP documented in this encounterBarnesville Hospital02-14-2025 Telephone encounter Note * Telephone Encounter - Alyssa Simmons MD - 06/03/2024 11:32 AM EST Telephone on 05/30/24 CONSULT TO PULMONARY MEDICINE Alyssa Simmons MD [facility] Work Phone: [phone] Miscellaneous Notes* Telephone Encounter - Alsysa Simmons MD - 06/03/2024 11:32 AM EST Telephone on 05/30/24 CONSULT TO PULMONARY MEDICINE Alyssa Simmons MD * Telephone Encounter - Priscilla Matamoros - 05/31/2024 4:09 PM EST Address GI referral in separate encounter. * Telephone Encounter - Keli Gonzalez - 05/31/2024 11:00 AM EST CONSULT TO GASTROENTEROLOGY (Order #[id number]) on 05/30/24 Kylie Russo is being referred to or the Gastroparesis clinic. Referring Physician: Dr. Grajeda Preferred phone number for contact: [phone] Send to GASTROPARESIS SCHEDULING POOL [[id number]] * Telephone Encounter - Keli Gonzalez - 05/30/2024 11:17 AM EST CONSULT TO PULMONARY MEDICINE (Order #[id number]) on 05/30/24 Appointment For: ILD Year of Diagnosis: Referring Provider: Dr. Graejda documented in this encounterBarnesville Hospital02-13-2025 Telephone encounter Note * Telephone Encounter - Magalys Mera RN - 06/02/2024 2:12 PM EST Most recent OV notes from 05/23/2024 requested from [facility] to update records. Signed and faxed to [facility],Attn: Julio Cesar Cox at . Fax confirmation received. Magalys Mera RN June 02, 2024 2:13 PM [facility]02-13-2025 Miscellaneous Notes* Telephone Encounter - Magalys Mera RN - 06/02/2024 2:12 PM EST Most recent OV notes from 05/23/2024 requested from [facility] to update records. Signed and faxed to [facility],Attn: Julio Cesar Cox at . Fax confirmation received. Magalys Mera RN June 02, 2024 2:13 PM documented in this encounterBarnesville Hospital02-13-2025 Telephone encounter Note * Telephone Encounter - Ana Harrison RN - 06/02/2024 10:54 AM EST Patient calling in stating that there was confusion with her mail order pharmacy and they will not fill both the Humalog and Lantus. Patient asking for the Lantus script to be sent to [facility]. Ana Harrison RN [facility]02-13-2025 Miscellaneous Notes* Telephone Encounter - Ana Harrison RN - 06/02/2024 10:54 AM EST Patient calling in stating that there was confusion with her mail order pharmacy and they will not fill both the Humalog and Lantus. Patient asking for the Lantus script to be sent to [facility]. Ana Harrison RN documented in this encounterBarnesville Hospital02-11-2025 Telephone encounter Note * Telephone Encounter - Priscilla Matamoros - 05/31/2024 4:09 PM EST Address GI referral in separate encounter. [facility]02-11-2025 Telephone encounter Note* Telephone Encounter - Priscilla Matamoros - 05/31/2024 4:09 PM EST Left VM for patient to call office to update registration and go over records needed for review prior to scheduling. [address]11-2025 Telephone encounter Note* Telephone Encounter - Priscilla Matamoros - 05/31/2024 4:09 PM EST CONSULT TO GASTROENTEROLOGY (Order #[id number]) on 05/30/24 Kylie Russo is being referred to or the Gastroparesis clinic. Referring Physician: Dr. Grajeda Preferred phone number for contact: [phone] Send to GASTROPARESIS SCHEDULING POOL [[id number]] [facility]02-11-2025 Miscellaneous Notes* Telephone Encounter - Priscilla Matamoros - 05/31/2024 4:09 PM EST Left VM for patient to call office to update registration and go over records needed for review prior to scheduling. * Telephone Encounter - Priscilla Matamoros - 05/31/2024 4:09 PM EST CONSULT TO GASTROENTEROLOGY (Order #[id number]) on 05/30/24 Kylie Russo is being referred to or the Gastroparesis clinic. Referring Physician: Dr. Grajeda Preferred phone number for contact: [phone] Send to GASTROPARESIS SCHEDULING POOL [[id number]] documented in this encounterBarnesville Hospital02-11-2025 Telephone encounter Note * Telephone Encounter - Keli Gonzalez - 05/31/2024 11:00 AM EST CONSULT TO GASTROENTEROLOGY (Order #[id number]) on 05/30/24 Kylie Russo is being referred to or the Gastroparesis clinic. Referring Physician: Dr. Grajeda Preferred phone number for contact: [phone] Send to GASTROPARESIS SCHEDULING POOL [[id number]] [facility]02-10-2025 Telephone encounter Note* Telephone Encounter - Keli Gonzalez - 05/30/2024 11:17 AM EST CONSULT TO PULMONARY MEDICINE (Order #[id number]) on 05/30/24 Appointment For: ILD Year of Diagnosis: Referring Provider: Dr. Grajeda [facility]02-10-2025 NoteHNO ID: [id number] Author: ROLAND GRAJEDA MD Service: ? Author Type: Physician Type: Progress Notes Filed: 05/30/2024 10:40 Note Text: On 05/30/2024, I had the pleasure of seeing Kylie Russo at the [facility] for seropositive RA HPI: To review, Kylie Russo is a 78 year old female [...] diagnosed with ILD. Sees Dr. 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 - In Jan, advised to resume HCQ once daily per vp of customer experience strategy (but didn't say why). - In Feb, [...] TUNNEL BILATERRAL 08/08/2005 Coronary artery disease involving confederated salish coronary artery Dr. 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 ([facility]) 12/06/2018 Other and unspecified hyperlipidemia Other forms of migraine Other psoriasis Postsurgical percutaneous transluminal coronary angioplasty status Rheumatoid arthritis(714.0) RLS (restless legs syndrome) 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 Clinton Farrar - In July, diagnosed with ILD. Sees Dr. 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 - In Jan, advised to resume HCQ once daily per vp of customer experience strategy (but didn't say why). - In Feb, [...] TUNNEL BILATERRAL 08/08/2005 Coronary artery disease involving confederated salish coronary artery Dr. 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 ([facility]) 12/06/2018 Other and unspecified hyperlipidemia Other forms of migraine Other psoriasis Postsurgical percutaneous transluminal coronary angioplasty status Rheumatoid arthritis(714.0) RLS (restless legs syndrome) 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 Patient should start [...] a day. Infusion Set for Insulin Pump ([employer] EXT INFUSION SET 23) iset 1 Each [...] g to affected area as needed (pain). lidocain-me.fcfqjup-bibv-ivhcw 0.5-20-0.035-5 % ptmd Apply 1 Each to [...] (autoimmune def) Daughter SOCIAL HISTORY: Lives in [place] with spouse. 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 Son in law is a pediatric physician Tobacco use: None Alcohol use: None Drug use: None PHYSICAL EXAM: VITALS: Blood pressure 112/69, pulse (!) 57, temperature 36.6 C (97.8 F), temperature source Temporal, height 157.5 cm (5' [...] 0.58 - 0.96 mg/dL 0.68 eGFR >=60 mL/min/1.73m 90 AST 13 - 35 U/L 32 [...] follow-up at least annually thereafter (last normal inJan ) - No further tx is needed at this time from the joint perspective but advised in the past to let usknow if the shotgun shell reprinting unit operator feels like additional tx is needed from the ILD standpoint so that we canprovide input as needed - Continue pulmonary management of ILD, referral to pulmonary provded 2. History of osteopenia: Multiple remote fractures, not clearly fragility fractures per history. Remote use of fosamax '- per the medication list although she doesn't recall this. DEXA withnormal BMD, Nov DXA with osteopenia - Calcium [...] participate in the care of your patient. Roland Grajeda MD documented in this encounterBarnesville Hospital02-03-2025 Instructions* Patient Instructions* Eva Nielsen MD - 05/23/2024 3:20 PM EST Lantus orders placed fro in case of pump failure Labs in August 2024 documented in this encounterBarnesville Hospital02-03-2025 NoteHNO ID: [id number] Author: DIAMOND RUSHING MA Service: ? Author Type: Senior Analyst Developer Type: Progress Notes Filed: 05/23/2024 18:16 Note Text:[facility]02-03-2025 History of Present illness Narrative* Diamond Rushing MA - 05/23/2024 2:46 PM EST Images from the original note were not included. * Eva Nielsen MD - 05/23/2024 2:36 PM EST [facility] Follow up visit [...] diabetic. She was following Dr. Palm at [facility] in the recent past, last appointment in April 2023. Prior to that, she was following with endocrinology at [facility], last appointment in October 2020 with Princess Lim APRN. 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 Dyer at [facility] Exacerbating factors include: obesity Last NEIL/Retina Eval: [...] entering the carbs. She has spoken to [employer] and number of people that they recommended to see, and they told the pump was working okay . Lifestyle -Exercise: no routine exercise due to fall leading to mobility issues -Diet: reports carb consistent diet She has seen Nutrition services at [facility], and reports that it was not very beneficial, she saw dietitian at [facility] who started her on a gastroparesis [...] pump by our RN at diabetes education seenin 12/2023 She has also received steroid injections for joint pains in the past and she complains of ongoing pain ROS: As per HPI Past Medical History PAST MEDICAL HISTORY Diagnosis Date Abnormal mammogram, unspecified left breast BPPV (benign paroxysmal positional vertigo) 02/11/2015 BPV (benign positional vertigo) CAD (coronary artery disease) Carotid stenosis CARPAL TUNNEL BILATERRAL 08/08/2005 Coronary artery disease involving confederated salish coronary artery Dr. 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 Patient should start [...] 1 Each one time a week. 20 Each2 amLODIPine (NORVASC) 5 mg tablet Take 1 [...] g to affected area as needed (pain). lidocain-me.mcnjstc-ybzy-ttrgr 0.5-20-0.035-5 % ptmd Apply 1 Each to [...] as needed (Patient taking differently: Dissolve 1 [place] under the tongue every 5 minutes as [...] (A) 4.3 - 5.6 % Final Comment: Location:[facility], [address], [place], [address] Point of care (POC) Hemoglobin A1c (HGBA1C) [...] specific diabetes management situations: The POC device manufacturers service representative provides a normal range of 4.2% to 6.5% for the HGBA1C POC test. However, the [place] Diabetes Association guidelines indicate that patients with [...] running high post meal with most meals (likelydue to taking half dose under the background [...] that case She has seen dietitian at [facility] and was given gastroparesis associated dietary changes Seen dietitian here, and diabetes education as well - she declined refills for Novolog insulin or infusion sets, today Again advised to calculate the carbs before each meal and take adequate insulin dose accordingly- can take half dose at the start of meal and the rest after completing the meal, especially if she hasgood appetite and intends to eat the whole [...] every appointment about multiple things, not necessarily questionsor related to her diabetes She was requested [...] Moderate Eva Nielsen MD Endocrinology Associate Staff [facility] [place] [phone] documented in this encounterBarnesville Hospital02-03-2025 NoteHNO ID: [id number] Author: EVA NIELSEN MD Service: ? Author [...] diabetic. She was following Dr. Palm at [facility] in the recent past, last appointment in April 2023. Prior to that, she was following with endocrinology at [facility], last appointment in October 2020 with Princess Lim APRN. 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 Dyer at [facility] Exacerbating factors include: obesity Last NEIL/Retina Eval: [...] entering the carbs. She has spoken to [employer] and number of people that they recommended to see, and they told the pump was working okay . Lifestyle -Exercise: no routine exercise due to fall leading to mobility issues -Diet: reports carb consistent diet She has seen Nutrition services at [facility], and reports that it was not very beneficial, she saw dietitian at [facility] who started her on a gastroparesis [...] pump might be malfunctioned and to call [employer]. When she did she was apparently told [...] TUNNEL BILATERRAL 08/08/2005 Coronary artery disease involving confederated salish coronary artery Dr. 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) 12/06/2018 (more content not included)...[facility]01-28-2025 Evaluation note* Diagnosis Onset Date Resolution Status Admit Date Aortic stenosis chronic April 212024 10:04am Essential (primary) hypertension chronic May 17 10:04am Hyperlipidemia chronic May 172024 10:04am History of coronary artery stent placement June 26, 2000 resolved May 17 10:04am [facility] Work Phone: 1(797) 353-391401-27-2025 History of Present illness Narrative* Zachary Akil, HUSSEIN - 05/16/2024 1:00 PM EST [facility] Follow up Visit Type: [...] w/ toast and guacamole, OR Snack (10A): [place] cereal bar (26 g CHO, 9 g fat, 14 g protein) Lunch: 1 slice of sour dough bread w/ mustard w/ 1 cup of milk and may have cottage cheese Snack: MRE Protein shake Dinner:Chicken w/ sweet potato fries, OR 2 Taco (small shell topped w/ ground beef, light sour cream ), OR 2 pieces Latvian toast w/ SF syrup Beverages/Fluids: SF Prime water boiler house mechanic (3 bottles/day, 16.9 ounce), Water (minimal), Milk (1 cup/day), [place] Juice (4 ounces- regular) Diet History: 02/15/24 Breakfast (4A): poached eggs w/ guacamole Snack: Protein R Ease (40g) drinks 1/2 one day and 1/2 next day Lunch (12P): Ham or [place] sandwich (1 slice of bread) Snack: [place] protein bar, OR crackers and cream cheese Dinner (5-6:30P): Spaghetti and Ham, OR Spaghetti noodles w/ parmesan cheese and lemon w/ sao tomean yogurt, OR Stuffed Peppers w/ [place] and vegetables, OR [place] Burgers, OR Chicken and noodles w/ vegetables (casserole) Snack: occasional, [place] lemon Yogurt Fluids: Prime Hydration (SF), Water (16 ounces) Dining/eating out? No May sip water at meals but avoids beverages at meals. Will wait 1 hour after eating before drinkingand sits up before lying down. Last 3 [...] water flavor options. Discussed prime electrolyte beverage boiler house mechanic- recommend beverages be sodium free, discussed when to use electrolyte beverages. - Encouraged continue to choose low fiber foods at meals- no raw fruit/vegetables, removing skin offruit/vegetable, cooking until fork tender, consider choosing canned fruit or applesauce. Discussedif using fruit (I.e. blueberries) in recipes, okay [...] minutes Start Time: 12:50 End Time: 13:[address] documented in this encounterBarnesville Hospital01-27-2025 NoteEducation (ENDIMT) KYLIE RUSSO ([id number]) 1945 F Date Time Provider Department 05/16/24 1:00 PM AKIL RIVERA Reason for Visit: Medical Nutrition Therapy [1998] [...] Date Reviewed: 02/16/2024 Reviewed by: Magalys Mera, KING - Fully Assessed Prescriptions as of 05/16/2024 [...] to affected area as needed (pain). - lidocain-me.ujkghvr-undf-oduoy 0.5-20-0.035-5 % ptmd Apply 1 Each to [...] hours as needed. Encounter Status:Closed by AKIL RIVERA on 05/16/24[facility] 05-16-2024 NoteHNO ID: [id number] Author: AKIL RIVERA RD Service: ? Author Type: Registered Dietitian Type: Progress Notes Filed: 05/16/2024 13:55 Note Text: [facility] Follow up Visit Type: [...] w/ toast and guacamole, OR Snack (10A): [place] cereal bar (26 g CHO, 9 g fat, 14 g protein) Lunch: 1 slice of sour dough bread w/ mustard w/ 1 cup of milk and may have cottage cheese Snack: MRE Protein shake Dinner:Chicken w/ sweet potato fries, OR 2 Taco (small shell topped w/ ground beef, light sour cream ), OR 2 pieces Latvian toast w/ SF syrup Beverages/Fluids: SF Prime water boiler house mechanic (3 bottles/day, 16.9 ounce), Water (minimal), Milk (1 cup/day), [place] Juice (4 ounces- regular) Diet History: 02/15/24 Breakfast (4A): poached eggs w/ guacamole Snack: Protein R Ease (40g) drinks 1/2 one day and 1/2 next day Lunch (12P): Ham or [place] sandwich (1 slice of bread) Snack: [place] protein bar, OR crackers and cream cheese Dinner (5-6:30P): Spaghetti and Ham, OR Spaghetti noodles w/ parmesan cheese and lemon w/ sao tomean yogurt, OR Stuffed Peppers w/ [place] and vegetables, OR [place] Burgers, OR Chicken and noodles w/ vegetables [...] 09/01/2023 6.7 05/01/2020 6.9 Albumin (g/dL) Date Valu (more content not included)...[facility]01-24-2025 Telephone encounter Note* Telephone Encounter - PinedaHelder hillELA - 05/13/2024 1:31 PM EST Called ENT Dr Umaña office, spoke to Bridger Gooden stated doctor is out today and will forward message. Regarding CT order. ENT # [id number] Helder Sung LPN May 13, 2024 1:33 PM [facility]01-24-[facility]25 Miscellaneous Notes* Telephone Encounter - Pineda HelderELA - 05/13/2024 1:31 PM EST Called ENT Dr Umaña office, spoke to Bridger Gooden stated doctor is out today and will forward message. Regarding CT order. ENT # [id number] Helder Sung LPN May 13, 2024 1:33 PM * Telephone Encounter - Hernesto Harvey APRN.CNP - 05/13/2024 12:50 PM EST Please call the ENT office and find out why they are not ordering this study themselves and having the patient relaying messages for them. If they for some reason are unable to order there own studies, they need to fax their recommendations to the office so I can review them. Thank you Hernesto Harvey APRN.CROP AND SOIL TECHNICIAN * Telephone Encounter - Mirtha Ramos RN - 05/11/2024 2:22 PM EST Patient calls to let provider know that she was seen by Dr. Umaña with [facility] and had allergytesting completed. Patient reports that no allergies were found. Patient reports that Dr. Umaña is requesting provider order a CT scan of patient's sinuses and then forward those results to him. Patient requests call back at [phone] with provider response. Mirtha Ramos RN documented in this encounterBarnesville Hospital01-24-2025 Telephone encounter Note * Telephone Encounter - Hernesto Harvey APRN.CNP - 05/13/2024 12:50 PM EST Please call the ENT office and find out why they are not ordering this study themselves and having the patient relaying messages for them. If they for some reason are unable to order there own studies, they need to fax their recommendations to the office so I can review them. Thank you Hernetso Harvey APRN.CNP [facility]01-22-2025 Telephone encounter Note* Telephone Encounter - Mirtha Ramos RN - 05/11/2024 2:22 PM EST Patient calls to let provider know that she was seen by Dr. Umaña with [facility] and had allergytesting completed. Patient reports that no allergies were found. Patient reports that Dr. Umaña is requesting provider order a CT scan of patient's sinuses and then forward those results to him. Patient requests call back at [phone] with provider response. Mirtha Ramos RN [facility]01-20-2025 Telephone encounter Note* Telephone Encounter - Hernesto Harvey APRN.CNP - 05/09/2024 1:20 PM EST PDMP website checked and validated. All prescriptions have been APPROPRIATELY filled. No suspiciousactivity was identified. 05/09/2024 by Hernesto Harvey APRN.CNP [facility]01-20-2025 Miscellaneous Notes* Telephone Encounter - Hernesto Harvey APRN.CNP - 05/09/2024 1:20 PM EST PDMP website checked and validated. All prescriptions have been APPROPRIATELY filled. No suspiciousactivity was identified. 05/09/2024 by Hernesto Harvey APRN.CNP * Telephone Encounter - Damari Crooks RN - 05/09/2024 9:04 AM EST Patient reports her zolpidem (ambien) 10 mg is costing her too much money due to the 30 day supply.Reports she spoke with her insurance company who informed her of this and told her - if provider would write the Rx for a 90 day supply it would cost patient $4.50. Reports this month she paid $16.53 for a 30 day supply. Last VV with Hernesto: 04-14-24 Last in office visit with Hernesto: 01-25-24 Next in office visit with Hernesto: 06-06-24 Asking provider to send 90 day supply to [facility]. Pended. documented in this encounterBarnesville Hospital01-20-2025 Telephone encounter Note * Telephone Encounter - Damari Croosk RN - 05/09/2024 9:04 AM EST Patient reports her zolpidem (ambien) 10 mg is costing her too much money due to the 30 day supply.Reports she spoke with her insurance company who informed her of this and told her - if provider would write the Rx for a 90 day supply it would cost patient $4.50. Reports this month she paid $16.53 for a 30 day supply. Last VV with Hernesto: 04-14-24 Last in office visit with Hernesto: 01-25-24 Next in office visit with Hernesto: 06-06-24 Asking provider to send 90 day supply to [facility]. Pended. [facility]01-13-2025 NoteHNO ID: [id number] Author: YOHANA AMANDA MA Service: ? Author Type: Senior Analyst Developer Type: Progress Notes Filed: 05/02/2024 15:59 Note Text: PLQ eye exam done on 05/02/2024 at [facility]. No evidence of PLQ toxicity. Report sent for scanning. Yohana Amanda [facility]01-13-2025 History of Present illness Narrative* Yohana Amanda MA - 05/02/2024 3:59 PM EST PLQ eye exam done on 05/02/2024 at [facility]. No evidence of PLQ toxicity. Report sent for scanning. Yohana Amanda MA documented in this encounterBarnesville Hospital12-28-2024 Telephone encounter Note * Telephone Encounter - Yudy Ma MD - 04/16/2024 12:43 AM EST The following approved medication requests have been transmitted electronically. Requested Prescriptions Signed Prescriptions Disp Refills pramipexole (MIRAPEX) 1 mg tablet 180 tablet 1 Sig: Take 2 tablets by mouth daily at bedtime. Authorizing Provider: YUDY MA MD [facility]12-28-2024 Miscellaneous Notes* Telephone Encounter - Yudy Ma MD - 04/16/2024 12:43 AM EST The following approved medication requests have been transmitted electronically. Requested Prescriptions Signed Prescriptions Disp Refills pramipexole (MIRAPEX) 1 mg tablet 180 tablet 1 Sig: Take 2 tablets by mouth daily at bedtime. Authorizing Provider: YUDY MA MD * Telephone Encounter - Nara Argueta RN - 04/15/2024 4:31 PM EST Patient calls and states that she accidentally threw away medication. Patient states that she had talked to pharmacy and was told that she needed new prescription sent to pharmacy. The patient has been identified by name and date of : Yes Caregiver verified no other encounters exist for this prescription request: Yes Caregiver confirmed with patient/requestor that no other refills are due, in the near future, with this provider at this time: Yes The last office visit in the department: 01/25/2024 Does the patient have a future office visit with this provider/department: N Visit date not found Requested Prescriptions Pending Prescriptions Disp Refills pramipexole (MIRAPEX) 1 mg tablet 180 tablet 1 Sig: Take 2 tablets by mouth daily at bedtime. Nara Argueta RN April 15, 2024 4:32 PM documented in this encounterBarnesville Hospital12-27-2024 Telephone encounter Note * Telephone Encounter - Nara Argueta RN - 04/15/2024 4:31 PM EST Patient calls and states that she accidentally threw away medication. Patient states that she had talked to pharmacy and was told that she needed new prescription sent to pharmacy. The patient has been identified by name and date of : Yes Caregiver verified no other encounters exist for this prescription request: Yes Caregiver confirmed with patient/requestor that no other refills are due, in the near future, with this provider at this time: Yes The last office visit in the department: 01/25/2024 Does the patient have a future office visit with this provider/department: N Visit date not found Requested Prescriptions Pending Prescriptions Disp Refills pramipexole (MIRAPEX) 1 mg tablet 180 tablet 1 Sig: Take 2 tablets by mouth daily at bedtime. Nara Argueta RN April 15, 2024 4:32 PM [facility]12-26-2024 History of Present illness Narrative* Hernesto Harvey APRN.CROP AND SOIL TECHNICIAN - 04/14/2024 8:20 AM EST This Team Access Model visit is a virtual encounter. It required patient- provider interaction for the medical decision making as documented below. Patient agrees to the visit: Yes Patient Location: [place] CC: Patient presents with: Cough HPI Kylie Russo is a 78 year old female who is contacted today for a virtual visit. This is an established patient of Dr. Alcira Anderson MD. Had COVID in December. Was treated with augmentin twice and zpack. Last treatment was in January and reports she never improved. CXR on 01/25 was without acute concern. N Has history of asthma, ILD, and recurrent sinusitis. 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 Current [...] TUNNEL BILATERRAL 08/08/2005 Coronary artery disease involving confederated salish coronary artery Dr. 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 Infusion Set for Insulin Pump (OneTouchEMRTRONIC EXT INFUSION SET 23) iset 1 Each [...] g to affected area as needed (pain). lidocain-me.aexylzo-ckir-yugwy 0.5-20-0.035-5 % ptmd Apply 1 Each to [...] as needed (Patient taking differently: Dissolve 1 [place] under the tongue every 5 minutes as [...] unable to get ride to office. Appears notin any repsiratory distress and in good spirits, Her complaints sound sinus related so will send her back to ENT. Also recommend express care if needed as someone should listen to her lungs and fullyassess her. - Supportive care with plenty of [...] regarding treatment options, medications, and coordinating care. Hernesto Harvey APRN.CNP documented in this encounterBarnesville Hospital12-26-2024 NoteHNO ID: [id number] Author: HERNESTO HARVEY APRN.CNP Service: ? Author Type: Nurse Practitioner Type: Progress Notes Filed: 04/14/2024 08:46 Note Text: This Team Access Model visit is a virtual encounter. It required patient-provider interaction for the medical decision making as documented below. Patient agrees to the visit: Yes Patient Location: [place] CC: Patient presents with: Cough HPI Kylie Russo is a 78 year old female who is contacted today for a virtual visit. This is an established patient of Dr. Alcira Anderson MD. Had COVID in December. Was treated with augmentin twice and zpack. Last treatment was in January and reports she never improved. CXR on 01/25 was without acute concern. N Has history of asthma, ILD, and recurrent sinusitis. 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 Current [...] TUNNEL BILATERRAL 08/08/2005 Coronary artery disease involving confederated salish coronary artery Dr. 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 ([facility]) 12/06/2018 Other and unspecified hyperlipidemia Other forms of migraine Other psoriasis Postsurgical percutaneous transluminal coronary angioplasty status Rheumatoid arthritis(714.0) RLS (restless legs syndrome) 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 Infusion Set for Insulin Pump ([employer]Alley EXT INFUSION SET 23) iset 1 Each one time a week. amLODIPine (NORVASC) 5 mg tablet Take 1 tablet by mouth once daily. benzonatate (TESSALON PERLES) 100 mg capsule Take 1 capsule by mouth three times (more content not included)...[facility]12-18-2024 Telephone encounter Note* Telephone Encounter - Hernesto Harvey APRN.CNP - 04/06/2024 10:58 AM EST PDMP website checked and validated. All prescriptions have been APPROPRIATELY filled. No suspiciousactivity was identified. 04/06/2024 by Hernesto Harvey APRN.CNP [facility]12-18-2024 Miscellaneous Notes* Telephone Encounter - Hernesto Harvey APRN.CNP - 04/06/2024 10:58 AM EST [facility]. All prescriptions have been APPROPRIATELY filled. No suspiciousactivity was identified. 04/06/2024 by Hernesto Harvey APRN.CNP * Telephone Encounter - Cecilia Lozoya RN - 04/06/2024 8:47 AM EST The patient has been identified by name and date of : Yes Caregiver verified no other encounters exist for this prescription request: Yes Caregiver confirmed with patient/requestor that no other refills are due, in the near future, with this provider at this time: Yes The last office visit in the department: 01/25/2024 Does the patient have a future office visit with this provider/department: not scheduled yet Requested Prescriptions Pending Prescriptions Disp Refills zolpidem (AMBIEN) 10 mg 30 tablet 2 Sig: Take 1 tablet by mouth at bedtime as needed (insomnia) for up to 90 days. Cecilia Lozoya RN documented in this encounterBarnesville Hospital12-18-2024 Telephone encounter Note * Telephone Encounter - Yohana Amanda MA - 04/06/2024 9:09 AM EST Patient has been notified. Patient has PLQ eye exam scheduled for 04/2024. Yohana Amanda MA [facility]12-18-2024 Miscellaneous Notes* Telephone Encounter - Yohana Amanda MA - 04/06/2024 9:09 AM EST Patient has been notified. Patient has PLQ eye exam scheduled for 04/2024. Yohana Amanda MA * Telephone Encounter - Alberto Argueta APRN.CNP - 04/06/2024 9:00 AM EST Please remind her to schedule a HCQ eye exam for this year, if she has not already done so. The following approved medication requests have been transmitted electronically. Requested Prescriptions Signed Prescriptions Disp Refills hydrOXYchloroQUINE (PLAQUENIL) 200 mg tablet 135 tablet 0 Sig: Take 1.5 tablets by mouth once daily. Authorizing Provider: ALBERTO ARGUETA APRN.CNP * Telephone Encounter - Cecilia Lozoya RN - 04/06/2024 8:54 AM EST Patient calling in and requesting refill as pended. No call back needed to patient if able to complete this request. Thank you. Requested Prescriptions Pending Prescriptions Disp Refills hydrOXYchloroQUINE (PLAQUENIL) 200 mg tablet 135 tablet 1 Sig: Take 1.5 tablets by mouth once daily. Cecilia Lozoya RN documented in this encounterBarnesville Hospital12-18-2024 Telephone encounter Note * Telephone Encounter - Alberto Argueta APRN.CNP - 04/06/2024 9:00 AM EST Please remind her to schedule a HCQ eye exam for this year, if she has not already done so. The following approved medication requests have been transmitted electronically. Requested Prescriptions Signed Prescriptions Disp Refills hydrOXYchloroQUINE (PLAQUENIL) 200 mg tablet 135 tablet 0 Sig: Take 1.5 tablets by mouth once daily. Authorizing Provider: ALBERTO ARGUETA APRN.TIM [facility]12-18-2024 Telephone encounter Note* Telephone Encounter - Cecilia Lozoya RN - 04/06/2024 8:54 AM EST Patient calling in and requesting refill as pended. No call back needed to patient if able to complete this request. Thank you. Requested Prescriptions Pending Prescriptions Disp Refills hydrOXYchloroQUINE (PLAQUENIL) 200 mg tablet 135 tablet 1 Sig: Take 1.5 tablets by mouth once daily. Cecilia Lozoya RN [facility]12-18-2024 Telephone encounter Note* Telephone Encounter - Cecilia Lozoya RN - 04/06/2024 8:47 AM EST The patient has been identified by name and date of : Yes Caregiver verified no other encounters exist for this prescription request: Yes Caregiver confirmed with patient/requestor that no other refills are due, in the near future, with this provider at this time: Yes The last office visit in the department: 01/25/2024 Does the patient have a future office visit with this provider/department: not scheduled yet Requested Prescriptions Pending Prescriptions Disp Refills zolpidem (AMBIEN) 10 mg 30 tablet 2 Sig: Take 1 tablet by mouth at bedtime as needed (insomnia) for up to 90 days. Cecilia Lozoya RN [facility]12-10-2024 Telephone encounter Note* Telephone Encounter - Magalys Mera RN - 03/29/2024 4:41 PM EST Per Yann at [employer] - [employer] can offer that for her. I will call her now. [employer] message sent to Pt letting her know. Magalys Mera RN March 29, 2024 4:41 PM [facility]12-10-2024 Miscellaneous Notes* Telephone Encounter - Magalys Mera RN - 03/29/2024 4:41 PM EST Per Yann at [employer] - [employer] can offer that for her. I will call her now. [employer] message sent to Pt letting her know. Magalys Mera RN March 29, 2024 4:41 PM * Telephone Encounter - Magalys Mera RN - 03/29/2024 11:50 AM EST Email sent to Yann Pickett, [employer] , inquiring about below notation per Pt request. Will contact Pt to let her know what we find out. Magalys Mera RN March 29, 2024 11:50 AM * Telephone Encounter - Kylie Palomino LPN - 03/29/2024 11:13 AM EST Patient calling and states she is out of infusion sets for her pump. She has an order through [facility] but they may not be able to obtain it until after 12/16 +shipping time. She is wondering if we could contact our [employer] rep to see if they might be able to provide her with 2 sets until her next shipment arrives? Pt. phone: [phone] Kylie Palomino LPN documented in this encounterBarnesville Hospital12-[facility]24 Telephone encounter Note * Telephone Encounter - Magalys Mera RN - 03/29/2024 11:50 AM EST Email sent to Yann Pickett, [employer] rep, inquiring about below notation per Pt request. Will contact Pt to let her know what we find out. Magalys Mera RN March 29, 2024 11:50 AM [facility]12-10-2024 Telephone encounter Note* Telephone Encounter - Kylie Palomino LPN - 03/29/2024 11:13 AM EST Patient calling and states she is out of infusion sets for her pump. She has an order through [facility] but they may not be able to obtain it until after 12/16 +shipping time. She is wondering if we could contact our [employer] rep to see if they might be able to provide her with 2 sets until her next shipment arrives? Pt. phone: [phone] Kylie Palomino LPN [facility]11-04-2024 Telephone encounter Note* Telephone Encounter - Brittney Toro MA - 02/22/2024 11:54 AM EST Handicap placecard x2 mailed to patient. Brittney Toro MA [facility]11-04-2024 Miscellaneous Notes* Telephone Encounter - Brittney Toro MA - 02/22/2024 11:54 AM EST Handicap placecard x2 mailed to patient. Brittney Toro MA documented in this encounterBarnesville Hospital11-04-2024 History of Present illness Narrative* Alcira Anderson MD - 02/22/2024 10:03 AM EST Chief Complaint Patient presents with: Follow Up HPI Kylie Russo is a 78 year old female who is contacted today for a virtual/telemedicine visit. This is an established patient of Dr. Alcira Anderson MD. States she is still sick since December, was on augmentin and zpak, could not finish the zpak. Sheis still congested and coughing and the phlegm, [...] TUNNEL BILATERRAL 08/08/2005 Coronary artery disease involving confederated salish coronary artery Dr. 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 ([facility]) 12/06/2018 Other and unspecified hyperlipidemia Other forms of migraine Other psoriasis Postsurgical percutaneous transluminal coronary angioplasty status Rheumatoid arthritis(714.0) RLS (restless legs syndrome) 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 lidocain-me.hejaisg-yggq-scnfw 0.5-20-0.035-5 % ptmd Apply 1 Each to [...] as needed (Patient taking differently: Dissolve 1 [place] under the tongue every 5 minutes as [...] from Last 5 Encounters: 02/16/24 : 30.04 kg/m 01/25/24 : 29.84 kg/m 12/07/23 : 30.96 kg/m 11/25/23 : 31.70 kg/m 11/24/23 : 31.70 kg/m Last 5 Encounter Wt Readings: Date: Wt: [...] of depression, currently it is in remission Alcira Anderson MD documented in this encounterBarnesville Hospital10-30-2024 Telephone encounter Note * Telephone Encounter - Magalys Mera RN - 02/17/2024 11:09 AM EDT All diabetic supply Rxs are to be sent to [facility]. Rx pended to correct pharmacy and sent to Dr. Nielsen. Magalys Mera RN February 17, 2024 11:13 AM [facility]10-30-2024 Miscellaneous Notes* Telephone Encounter - Magalys Mera RN - 02/17/2024 11:09 AM EDT All diabetic supply Rxs are to be sent to [facility]. Rx pended to correct pharmacy and sent to Dr. Nielsen. Magalys Mera RN February 17, 2024 11:13 AM * Telephone Encounter - Chaya Mills MA - 02/17/2024 10:34 AM EDT [facility] pharmacist calling from [facility] and states a script was sent for an infusion set insulin pump.He is unable to provide as this is something they do not carry. documented in this encounterBarnesville Hospital10-30-2024 Telephone encounter Note * Telephone Encounter - Chaya Mills MA - 02/17/2024 10:34 AM EDT [facility] pharmacist calling from [facility] and states a script was sent for an infusion set insulin pump.He is unable to provide as this is something they do not carry. [facility]10-29-2024 History of Present illness Narrative* Eva Nielsen MD - 02/16/2024 11:44 AM EDT [facility] Follow up visit [...] diabetic. She was following Dr. Palm at [facility] in the recent past, last appointment in April 2023. Prior to that, she was following with endocrinology at [facility], last appointment in October 2020 with Princess Lim APRN. [employer] [facility] with me was 09/15/23 Documentation from [...] gastric emptying study following Dr. Dyer at [facility] Exacerbating factors include: obesity Last NEIL/Retina Eval: [...] time 2 hours carbs entered per day 80 47 g Changing pump site every 2 days Changing sensor every 7 days . Symptoms -Polyuria: no -Polydipsia: no -Weight changes: fluctuating Right knee pain due to a fall, taking steroid shots due to pain intermittently . Lifestyle -Exercise: no routine exercise due to fall leading to mobility issues -Diet: reports carb consistent diet She has seen Nutrition services at [facility], and reports that it was not very beneficial, she saw dietitian at [facility] who started her on a gastroparesis [...] pump by our RN at diabetes education seenin 12/2023 She has also received steroid injections for joint pains in the past and she complains of ongoing pain ROS: As per HPI Past Medical History PAST MEDICAL HISTORY Diagnosis Date Abnormal mammogram, unspecified left breast BPPV (benign paroxysmal positional vertigo) 02/11/2015 BPV (benign positional vertigo) CAD (coronary artery disease) Carotid stenosis CARPAL TUNNEL BILATERRAL 08/08/2005 Coronary artery disease involving confederated salish coronary artery Dr. 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 ([facility]) 12/06/2018 Other and unspecified hyperlipidemia Other forms of migraine Other psoriasis Postsurgical percutaneous transluminal coronary angioplasty status Rheumatoid arthritis(714.0) RLS (restless legs syndrome) 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 lidocain-me.dsgfkid-kycf-piomw 0.5-20-0.035-5 % ptmd Apply 1 Each to [...] as needed (Patient taking differently: Dissolve 1 [place] under the tongue every 5 minutes as [...] (H) 4.3 - 5.6 % Final Comment: [place] Diabetes Association guidelines indicate that patients with [...] and oriented x 3. She is walking withthe help of walker today EYES: no thyroid [...] 08/2023, after she started following instructions for insulindosing as instructed regarding gastroparesis -eGFR 91 in 08/2023 Plan: - No changes made to pump settings today - advised to contact [employer] regarding early change of infusion sets I discussed about giving insulin shots if pump malfunctions- discussed basal insulin, and bolus as well as correction scale to be taken in pump failure She has seen dietitian at [facility] and was given gastroparesis associated dietary changes Seen dietitian here, and diabetes education as well - she declined refills for insulin but requests for infusion sets, script sent Again advised to calculate the carbs before each meal and take adequate insulin dose accordingly- can take half dose at the start of meal and the rest after completing the meal, especially if she hasgood appetite and intends to eat the whole [...] which included preparing to see the patient, insy-mv-qwrs patient care, completing clinical documentation, obtaining and/or reviewing separately obtained history, performing a medically appropriate examination, counseling and educating the pat ient/family/caregiver, ordering medications, tests, or procedures, and independently interpreting results (not separately reported). Eva Nielsen MD Endocrinology Associate Staff [facility] [place] [phone] documented in this encounterBarnesville Hospital10-28-2024 History of Present illness Narrative* Akil Rivera, RD - 02/15/2024 3:00 PM EDT [facility] Nutrition Therapy Visit Type: In-Person (Face to Face): Patient states reason for visit: Type 1 Diabetes Management Initial DEMOGRAPHICS: Co-Morbidities: PAST MEDICAL HISTORY Diagnosis Date Abnormal mammogram, unspecified left breast BPPV (benign paroxysmal positional vertigo) 02/11/2015 BPV (benign positional vertigo) CAD (coronary artery disease) Carotid stenosis CARPAL TUNNEL BILATERRAL 08/08/2005 Coronary artery disease involving confederated salish coronary artery Dr. 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 No May sip water at meals but avoids beverages at meals. Will wait 1 hour after eating before drinkingand sits up before lying down. Allergies: No [...] - Hx of meeting with dietitian at [facility] for gastroparesis nutrition therapy and has met with Radha Story [facility] RD for gastroparesis nutrition therapy 08/2023. Pt brought nutrition handouts from previous appointments with past RDNs for review. - Recent A1C 7.8% August 2023. - Had appointment with public health educator nurse 12/23/23 (sensor placement) and 12/15/23 (pump assistance). - Pt states using [employer] CGM in leg as has attempted in arm and on stomach but relates - Relates no GI distress w/ gastroparesis; no s/s of of decreased appetite. - Notes receives medical supplies from [employer] in [place]. - Total protein found 60-110 g per day. -- Per EMR speedboat driver recommended: 11/06/23 - Use of correction dose of insulin for Blood glucose above 180 mg/dl- 1 unit for every 40 mg/dl above 180mg/dl. - Recommended to calculate the carbs before each meal and take adequate insulin dose accordingly- can take half dose at the start of meal and the rest after completing the meal, especially if she hasgood appetite and intends to eat the whole [...] g to affected area as needed (pain). lidocain-me.sxuvnpc-qpyz-frglm 0.5-20-0.035-5 % ptmd Apply 1 Each to [...] as needed (Patient taking differently: Dissolve 1 [place] under the tongue every 5 minutes as [...] lbs, 10% weight loss = 144 lbs [place] body weight: 48.7 kg (107 lb 6.5 [...] with 15 g CHO. Space meals/snacks a partby 3-5 hours. -- Limit intake of high-fat foods - choose low or reduced fat dairy products, lean protein sources,and limit intake of whole nuts/seeds. Always choose [...] total carbohydrate, fiber, and protein. Educational Materials: NCM Fiber Content Food List Healthy You: Survival Skills Healthy You: Planning Healthy Meals - Utilized nutrition handouts pt brought to appointment. Nutrition Monitoring & Evaluation: Dietitian Goals: Maintained OR Improved Blood Glucose Control by next A1C test Criteria: Blood Glucose Values and A1C Patient Stated Goals at today's visit: Choose foods from foods recommended gastroparesis food list. Adherence Potential to Goals: Good Need for Follow up: TBD Referred by: Eva Nielsen* Akil Rivera RD Consult Billing Type/Increments: Initial Assessment/15 minutes, 4 increment(s), 60 minutes Start time: 14:55 End time: 16:00 My final report will be communicated back to the requesting physician by way of shared medical record. Signed by: Akil Rivera RD documented in this encounterBarnesville Hospital10-22-2024 Telephone encounter Note * Telephone Encounter - Diamond Rushing MA - 02/09/2024 2:08 PM EDT Phoned patient to discuss use of sliding scale to offset high blood sugars caused by steroids. Patient was able read sliding scale to me and understands to utilize the scale regardless of reason for raise in blood sugar. Patient states she does not like that her sugar level rises. Patient reports having an upcoming appointment with endocrinology senior erp consultant. Diamond Rushing MA [facility]10-22-2024 Miscellaneous Notes* Telephone Encounter - Diamond Rushing MA - 02/09/2024 2:08 PM EDT Phoned patient to discuss use of sliding scale to offset high blood sugars caused by steroids. Patient was able read sliding scale to me and understands to utilize the scale regardless of reason for raise in blood sugar. Patient states she does not like that her sugar level rises. Patient reports having an upcoming appointment with endocrinology senior erp consultant. Diamond Rushing MA * Telephone Encounter - Eva Nielsen MD - 02/09/2024 12:26 PM EDT Sliding scale insulin doses should be taken as per insulin sensitivity factor, which as per her pump settings is 1 unit for every 40 mg/dl above 110 mg/dl * Telephone Encounter - Diamond Rushing MA - 02/08/2024 1:24 PM EDT Patient phones to reports she is going to start prednisone for a current issue. Patient would like some instruction on how to handle the change in blood sugar using her pump. Please advise Diamond Rushing MA * Telephone Encounter - Cecilia Ronquillo - 02/08/2024 9:21 AM EDT Patient returned call and declined to reschedule next opening in Apr 2024 and request a nurse return her call. documented in this encounterBarnesville Hospital10-22-2024 Telephone encounter Note * Telephone Encounter - Eva Nielsen MD - 02/09/2024 12:26 PM EDT Sliding scale insulin doses should be taken as per insulin sensitivity factor, which as per her pump settings is 1 unit for every 40 mg/dl above 110 mg/dl [facility]10-21-2024 Telephone encounter Note* Telephone Encounter - Diamond Rushing MA - 02/08/2024 1:24 PM EDT Patient phones to reports she is going to start prednisone for a current issue. Patient would like some instruction on how to handle the change in blood sugar using her pump. Please advise Diamond Rushing MA [facility]10-21-2024 Telephone encounter Note* Telephone Encounter - Cecilia Ronquillo - 02/08/2024 9:21 AM EDT Patient returned call and declined to reschedule next opening in Apr 2024 and request a nurse return her call. [facility]10-18-2024 Telephone encounter Note* Telephone Encounter - Hernesto Harvey APRN.CNP - 02/05/2024 12:45 PM EDT PDMP website checked and validated. All prescriptions have been APPROPRIATELY filled. No suspiciousactivity was identified. 02/05/2024 by Hernesto Harvey APRN.CNP [facility]10-18-2024 Miscellaneous Notes* Telephone Encounter - Hernesto Harvey APRN.CNP - 02/05/2024 12:45 PM EDT PDMP website checked and validated. All prescriptions have been APPROPRIATELY filled. No suspiciousactivity was identified. 02/05/2024 by Hernesto Harvey APRN.CNP * Telephone Encounter - Mirtha Ramos RN - 02/04/2024 10:30 AM EDT The patient has been identified by name and date of : Yes Caregiver verified no other encounters exist for this prescription request: Yes Caregiver confirmed with patient/requestor that no other refills are due, in the near future, with this provider at this time: Yes The last office visit in the department: 01/25/2024 Does the patient have a future office visit with this provider/department:02/22/2024 Requested Prescriptions Pending Prescriptions Disp Refills zolpidem (AMBIEN) 10 mg 30 tablet 0 Sig: Take 1 tablet by mouth at bedtime as needed (insomnia) for up to 30 days. Mirtha Ramos RN February 04, 2024 10:30 AM documented in this encounterBarnesville Hospital10-17-2024 Telephone encounter Note * Telephone Encounter - Mirtha Ramos RN - 02/04/2024 10:30 AM EDT The patient has been identified by name and date of : Yes Caregiver verified no other encounters exist for this prescription request: Yes Caregiver confirmed with patient/requestor that no other refills are due, in the near future, with this provider at this time: Yes The last office visit in the department: 01/25/2024 Does the patient have a future office visit with this provider/department:02/22/2024 Requested Prescriptions Pending Prescriptions Disp Refills zolpidem (AMBIEN) 10 mg 30 tablet 0 Sig: Take 1 tablet by mouth at bedtime as needed (insomnia) for up to 30 days. Mirtha Ramos RN February 04, 2024 10:30 AM [facility]10-10-2024 Telephone encounter Note* Telephone Encounter - Rosalba Ren RN - 01/28/2024 3:27 PM EDT Pt called and is notified of providers message. Pt voices understanding. Rosalba Ren RN [facility]10-10-2024 Miscellaneous Notes* Telephone Encounter - Rosalba Ren RN - 01/28/2024 3:27 PM EDT Pt called and is notified of providers message. Pt voices understanding. Rosalba Ren RN * Telephone Encounter - Hernesto Harvey APRN.CNP - 01/28/2024 1:59 PM EDT Diflucan was already sent with the augmentin as previously requested. Thank you Hernesto Harvey APRN.CNP * Telephone Encounter - Chaya Delatorre LPN - 01/28/2024 1:38 PM EDT Pt calls states was just sent in another script for Aiugmentin states she is diabetes will get yeast infection. Asking if med for this could also be called to [facility]. * Telephone Encounter - Hernesto Harvey APRN.CNP - 01/28/2024 1:35 PM EDT Prescriptions sent as requested. Thank you Hernesto Harvey APRN.CNP * Telephone Encounter - Rosalba Ren RN - 01/28/2024 1:18 PM EDT Pt states she uses [facility] for her medications. Pt also reports that she has a yeast infection from the antibiotic and was asking if provider could send in something for that. Pt states she doesn't have a Customer Pricing Manager, because she isn't able to make it out to [place]. She reports they senta referral to [facility] for her, but she hasn't received [...] a day for 10 days. Authorizing Provider: HERNESTO HARVEY RN January 28, 2024 1:19 PM * Telephone Encounter - Hernesto Harvey APRN.CNP - 01/28/2024 12:43 PM EDT She has tolerated azithromycin previously and has limited antibiotics that she can take. We can trya round of augmentin again but I recommend also calling and following up with her shotgun shell reprinting unit operator. Thank you Hernesto Harvey APRN.CNP * Telephone Encounter - Chaya Delatorre LPN - 01/28/2024 8:58 AM EDT Pt calls in states just saw Hernesto for cough and other symptoms was given z-talia took the first two gotreally dizzy and bad headache so did not take anymore. States now sputum is yellow and light greenish in color from white and cough has become raspy. She states there was talk of her sending prednisone not sure how feels about this because is a brittle diabetic. Asking for recommendations. documented in this encounterBarnesville Hospital10-10-2024 Telephone encounter Note * Telephone Encounter - Hernesto Harvey APRN.CNP - 01/28/2024 1:59 PM EDT Diflucan was already sent with the augmentin as previously requested. Thank you Hernesto Harvey APRN.CNP [facility]-10-2024 Telephone encounter Note* Telephone Encounter - Chaya Delatorre LPN - 01/28/2024 1:38 PM EDT Pt calls states was just sent in another script for Aiugmentin states she is diabetes will get yeast infection. Asking if med for this could also be called to [facility]. [facility] Telephone encounter Note* Telephone Encounter - Hernesto Harvey APRN.CNP - 01/28/2024 1:35 PM EDT Prescriptions sent as requested. Thank you Hernesto Harvey APRN.CNP [facility]10-10-2024 Telephone encounter Note* Telephone Encounter - Rosalba Ren RN - 01/28/2024 1:18 PM EDT Pt states she uses [facility] for her medications. Pt also reports that she has a yeast infection from the antibiotic and was asking if provider could send in something for that. Pt states she doesn't have a Customer Pricing Manager, because she isn't able to make it out to [facility]. She reports they senta referral to [facility] for her, but she hasn't received [...] a day for 10 days. Authorizing Provider: HERNESTO HARVEY RN January 28, 2024 1:19 PM [facility]24 Telephone encounter Note* Telephone Encounter - Hernesto Harvey APRN.CNP - 01/28/2024 12:43 PM EDT She has tolerated azithromycin previously and has limited antibiotics that she can take. We can trya round of augmentin again but I recommend also calling and following up with her shotgun shell reprinting unit operator. Thank you Hernesto Harvey APRN.CNP [facility]-10-[facility]24 Telephone encounter Note* Telephone Encounter - Chaya Delatorre LPN - 01/28/2024 8:58 AM EDT Pt calls in states just saw Hernesto for cough and other symptoms was given z-talia took the first two gotreally dizzy and bad headache so did not take anymore. States now sputum is yellow and light greenish in color from white and cough has become raspy. She states there was talk of her sending prednisone not sure how feels about this because is a brittle diabetic. Asking for recommendations. [facility]10-07-2024 History of Present illness Narrative* Maggie Kwong RT(R) - 01/25/2024 2:00 PM EDT Radiology Service Progress Note PATIENT NAME: Kylie Russo DATE OF SERVICE: January 25, 2024 TIME: 1:59 PM PATIENT IDENTITY VERIFICATION COMPLETED USING TWO (2) IDENTIFIERS: Name and Date of confirmedby patient verbally. FALL SCREENING: Has the patient had 2 falls in the last year or 1 fall with injury or currently using an Ambulatory Assistive Device (Walker, Cane, Wheelchair, Crutches, etc.)? Yes, Patient High Riskfor Falls What interventions were put in place to prevent falls during this visit? Offered Assistance with Transfers/Clothing and Instructed Patient to Remain Seated (Not on Exam Table) Until Exam PATIENT GENDER DATA: Female. status: : No status: NO. PATIENT RELEVANT IMPLANT DATA REVIEWED: Not Applicable PATIENT PRESENTS WITH AN IMPLANTABLE OR ATTACHED RETAIL INTERIOR DESIGNER: No RADIOLOGY DEPARTMENT: General X-ray: Exam(s) Completed: Chest X-Ray PERIPHERAL IV DATA: Not applicable SIGNED BY: RT Hermann(R) January 25, 2024 1:59 PM documented in this encounterBarnesville [facility]10-[facility] History of Present illness Narrative* Hernesto Harvey APRN.CROP AND SOIL TECHNICIAN - 01/25/2024 1:30 PM EDT CC: Patient presents with: Recheck: Covid positive, wheezing at night HPI Kylie Russo is a 78 year old female [...] TUNNEL BILATERRAL 08/08/2005 Coronary artery disease involving [place] coronary artery Dr. 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 lidocain-me.jyrxuin-kukp-ksnia 0.5-20-0.035-5 % ptmd Apply 1 Each to [...] as needed (Patient taking differently: Dissolve 1 [place] under the tongue every 5 minutes as [...] EXAM BP 128/62 Pulse 68 Temp 36.5 C (97.7 F) (Temporal) Resp 16 Wt 72.6 kg (160 lb) SpO2 97% BMI 29.84 kg/m General Appearance: well appearing, in no [...] symptoms occur. Patient agreeable to treatment plan. Hernesto Harvey APRN.CNP documented in this encounterBarnesville Hospital09-30-2024 Telephone encounter Note * Telephone Encounter - Ana Paula Aranda LPN - 01/18/2024 2:04 PM EDT Phoned patient went over notes below from Hernesto Harvey WHEELAGE CLERK with understanding. [facility]09-30-[facility]24 Miscellaneous Notes* Telephone Encounter - Ana Paula Aranda LPN - 01/18/2024 2:04 PM EDT Phoned patient went over notes below from Hernesto Harvey WHEELAGE CLERK with understanding. * Telephone Encounter - Hernesto Harvey APRN.CNP - 01/18/2024 1:49 PM EDT She can try a different brand of flonase/fluticasone to see if she doesn't mind the scent. Also canuse saline nasal spray along with nasal lavage. Thank you Hernesto Harvey APRN.CNP * Telephone Encounter - Leandra Jimenez LPN - 01/18/2024 1:25 PM EDT Pt was covid + on 01/13/24. Taking augmentin. Pt states she has a large amount of clear mucus & is asking what she can take for it? States she hasn't tried anything otc bc she was told she can't take anything. Please advise. Leandra Jimenez LPN documented in this encounterBarnesville Hospital09-30-2024 Telephone encounter Note * Telephone Encounter - Hernesto Harvey APRN.CNP - 01/18/2024 1:49 PM EDT She can try a different brand of flonase/fluticasone to see if she doesn't mind the scent. Also canuse saline nasal spray along with nasal lavage. Thank you Hernesto Harvey APRN.CROP AND SOIL TECHNICIAN [facility]09-30-2024 Telephone encounter Note* Telephone Encounter - Leandra Jimenez LPN - 01/18/2024 1:25 PM EDT Pt was covid + on 01/13/24. Taking augmentin. Pt states she has a large amount of clear mucus & is asking what she can take for it? States she hasn't tried anything otc bc she was told she can't take anything. Please advise. Leandra Jimenez LPN [facility]09-27-2024 Telephone encounter Note* Telephone Encounter - Nara Argueta RN - 01/15/2024 12:31 PM EDT The patient has been identified by name and date of : Yes Caregiver verified no other encounters exist for this prescription request: Yes Caregiver confirmed with patient/requestor that no other refills are due, in the near future, with this provider at this time: Yes The last office visit in the department: 12/07/2023 Does the patient have a future office visit with this provider/department: Yes 02/22/2024 Requested Prescriptions Pending Prescriptions Disp Refills amLODIPine (NORVASC) 5 mg tablet 90 tablet 3 Sig: Take 1 tablet by mouth once daily. Nara Argueta RN January 15, 2024 12:32 PM [facility]09-27-2024 Miscellaneous Notes* Telephone Encounter - Nara Argueta RN - 01/15/2024 12:31 PM EDT The patient has been identified by name and date of : Yes Caregiver verified no other encounters exist for this prescription request: Yes Caregiver confirmed with patient/requestor that no other refills are due, in the near future, with this provider at this time: Yes The last office visit in the department: 12/07/2023 Does the patient have a future office visit with this provider/department: Yes 02/22/2024 Requested Prescriptions Pending Prescriptions Disp Refills amLODIPine (NORVASC) 5 mg tablet 90 tablet 3 Sig: Take 1 tablet by mouth once daily. Nara Argueta RN January 15, 2024 12:32 PM documented in this encounterBarnesville Hospital09-25-2024 Instructions* Patient Instructions* Hernesto Harvey APRN.CNP - 01/13/2024 8:52 AM EDT Use saline nasal sprays. documented in this encounterBarnesville Hospital09-25-2024 History of Present illness Narrative* Hernesto Harvey APRN.CNP - 01/13/2024 8:41 AM EDT This Team Access Model visit is a virtual encounter. It required patient- provider interaction for the medical decision making as documented below. Patient agrees to the visit: Yes Patient Location: [place] CC: Patient presents with: Covid Positive HPI Kylie Russo is a 78 year old female who is contacted today for a virtual visit. This is an established patient of Dr. Alcira Anderson MD. Tested Positive for Covid on 01/08/24. Symptoms started 7 days ago. Original symptoms cough with clear phlegm, sinus congestion, and sore throat. Current symptoms are fatigue, malaise, productive cough with clear to yellow sputum that will wake her up at night, sinus pressure, slight sore throat, and slight headaches. Denies fever, chills, wheezing, shortness of breath at baseline, chest pain, edema, palpitations, dizziness, syncope, or N/V/D. Some sinus tenderness that comes and goes. Has been taking tylenol which helps the aches and pains somewhat and tried afrin which helped. Doesnot like flonase because it smells like [place]. REVIEW OF SYSTEMS See HPI PAST MEDICAL HISTORY Diagnosis Date Abnormal mammogram, unspecified left breast BPPV (benign paroxysmal positional vertigo) 02/11/2015 BPV (benign positional vertigo) CAD (coronary artery disease) Carotid stenosis CARPAL TUNNEL BILATERRAL 08/08/2005 Coronary artery disease involving [place] coronary artery Dr. 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 ([facility]) 12/06/2018 Other and unspecified hyperlipidemia Other forms of migraine Other psoriasis Postsurgical percutaneous transluminal coronary angioplasty status Rheumatoid arthritis(714.0) RLS (restless legs syndrome) 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 lidocain-me.wtqyfwq-tbrz-sogkn 0.5-20-0.035-5 % ptmd Apply 1 Each to affected area as needed. traMADol (ULTRAM) 50 mg tablet Take 50 mg by mouth every 6 hours as needed for pain. albuterol HFA (PROVENTIL HFA, VENTOLIN HFA) 90 mcg/actuation inhaler Inhale 2 Puffs as instructed every 4 hours as needed for wheezing/shortness of breath. amLODIPine (NORVASC) 5 mg tablet TAKE 1 TABLET BY MOUTH EVERY DAY WALKER ROLLATOR SEAT WITH 6 WHEELS - RED For ambulation nitroglycerin (NITROLINGUAL) 400 mcg/spray spray one every 5 minutes x3 as needed (Patient taking differently: Dissolve 1 [place] under the tongue every 5 minutes as [...] well-hydrated, well nourished, and happy, smiling, interactive EYES: no injection and visual acuity is grossly normal NOSE: no sinus tenderness reported this morning. RESPIRATORY: breathing non-labored CHEST: equal chest rise with normal respiratory effort DATA REVIEWED: No new labs BP Controlled (<130/80) Never done Covid-19 Vaccine( season) due on 12/20/2023 Influenza Vaccine(1) due on 12/20/2023 Diabetic Foot Exam due on 02/01/2024 Spirometry due on 08/18/2024 HbA1C due on 03/03/2024 Dilated Retinal Exam due on 03/24/2024 Urine Albumin:Creatinine Ratio due on 08/31/2024 LDL Cholesterol due on 08/31/2024 Annual PCP Team Chronic Disease Visit due on 12/23/2024 DTaP,Tdap,Td Vaccine(3 - Td or Tdap) due on 07/31/2031 Bone Density Screening Completed Advance Directive Discussion Completed RSV Vaccine Completed Hepatitis C Screening Completed Shingrix Vaccine Completed Pneumococcal Vaccine: 65+ Completed Mammogram Screening Discontinued Colorectal Cancer Screening Discontinued ASSESSMENT/PLAN: 1. COVID - ICD9: 079.89, ICD10: U07.1 (primary diagnosis) Continue with tylenol Tessalon as ordered. Go to Er for shortness of breath, chest pain, lethargy, or any urgent concerns Follow up for any further concerns. Quarantine until symptoms improving, no fever without fever reducing medications for at least 24hrs, and wear a mask when out in public for the next few days. 2. Acute non-recurrent sinusitis, unspecified location - ICD9: 461.9, ICD10: J01.90 - Will begin treatment with as per antibiotic as written, see orders - start if no improvement in the next few days or worsening of sinus congestion. - Supportive care with plenty of fluids, rest, and analgesia prn. - Follow up in 3-5 days if symptoms persist or worsen after starting treatment Prescription instructions reviewed with patient as applicable. Potential red flag symptoms discussed with the patient. Reviewed appropriate action plan to take if red flag symptoms occur. Patient agreeable to treatment plan. During this patient visit I have spent approximately 20 minutes in counseling regarding treatment options, medications, and coordinating care. Hernesto Harvey APRN.CNP documented in this encounterBarnesville Hospital09-24-2024 Telephone encounter Note * Telephone Encounter - Mirtha Ramos RN - 01/12/2024 3:39 PM EDT Patient calls to report that she tested positive for Covid-19 on Thursday01/08/2024 on an at-home test. Symptoms started prior to that and include: Cough with clear phlegm, sinus congestion, sore throat, SOB per usual. Denies CP, dizziness, or headache. Afebrile. Patient outside of window for anti-viral treatment but requesting VV to discuss Vitamins that she could take. Patient not currently taking OTC medications for symptom management d/t her diagnosis andother medications. Care advice and OTC medication reviewed. Patient requests to speak to provider first. VV scheduled 01/13/2024. Mirtha Ramos RN [facility]09-24-2024 Miscellaneous Notes* Telephone Encounter - Mirtha Ramos RN - 01/12/2024 3:39 PM EDT Patient calls to report that she tested positive for Covid-19 on Thursday01/08/2024 on an at-home test. Symptoms started prior to that and include: Cough with clear phlegm, sinus congestion, sore throat, SOB per usual. Denies CP, dizziness, or headache. Afebrile. Patient outside of window for anti-viral treatment but requesting VV to discuss Vitamins that she could take. Patient not currently taking OTC medications for symptom management d/t her diagnosis andother medications. Care advice and OTC medication reviewed. Patient requests to speak to provider first. VV scheduled 01/13/2024. Mirtha Ramos RN documented in this encounterBarnesville Hospital09-18-2024 Telephone encounter Note * Telephone Encounter - Hernesto Harvey APRN.CNP - 01/06/2024 6:42 PM EDT Prescription sent as requested. Thank you Hernesto Harvey APRN.CNP PDMP website checked and validated. All prescriptions have been APPROPRIATELY filled. No suspiciousactivity was identified. 01/06/2024 by Hernesto Harvey APRN.CNP [facility]09-18-2024 Miscellaneous Notes* Telephone Encounter - Hernesto Harvey APRN.CNP - 01/06/2024 6:42 PM EDT Prescription sent as requested. Thank you Hernesto Harvey APRN.CNP PDMP website checked and validated. All prescriptions have been APPROPRIATELY filled. No suspiciousactivity was identified. 01/06/2024 by Hernesto Harvey APRN.CNP * Telephone Encounter - Damari Crooks RN - 01/06/2024 1:44 PM EDT Patient reports she needs a refill on ambien 10 mg. Advised patient this nurse sees the Rx for 6.5 mg but no 10 mg. Patient states Hernesto told her she cantake two 5 mg to equal 10 mg. Reports she has been taking two 5 mg to equal 10 mg, and she still wakes up at 3 am. States she still wants to take the 10 mg. Pended the 10 mg. Please advise patient. Last ov: 12-24-23 documented in this encounterBarnesville Hospital09-18-2024 Telephone encounter Note * Telephone Encounter - Damari Crooks RN - 01/06/2024 1:44 PM EDT Patient reports she needs a refill on ambien 10 mg. Advised patient this nurse sees the Rx for 6.5 mg but no 10 mg. Patient states Hernesto told her she cantake two 5 mg to equal 10 mg. Reports she has been taking two 5 mg to equal 10 mg, and she still wakes up at 3 am. States she still wants to take the 10 mg. Pended the 10 mg. Please advise patient. Last ov: 12-24-23 [facility]09-16-2024 Telephone encounter Note* Telephone Encounter - Hernesto Harvey APRN.CNP - 01/04/2024 1:49 PM EDT Noted Hernesto Harvey APRN.CNP [facility]09-16-2024 Miscellaneous Notes* Telephone Encounter - Hernesto Harvey APRN.CNP - 01/04/2024 1:49 PM EDT Noted Hernesto Harvey APRN.CNP * Telephone Encounter - Helder Sung LPN - 01/04/2024 12:34 PM EDT Called and spoke to patient, will increase to 10mg of the Ambien and see if helps. Patient states has plenty and does not need refill at this time. Helder Sung LPN January 04, 2024 12:37 PM * Telephone Encounter - Hernesto Harvey APRN.CNP - 01/04/2024 11:11 AM EDT We can increase to the 10mg dose to see if it helps or try a different option like lunesta. I thinkeither would be an appropriate choice. Which would she prefer? Thank you Hernesto Harvey APRN.CNP * Telephone Encounter - Helder Sung LPN - 01/04/2024 10:01 AM EDT Called and spoke to patient, stated has only sleep past 3am once since taking to medication. Taking at 930pm and goes to bed, falls asleep after midnight and wakes at 3am, stays up and makes alunch for at 630am. Does not take a nap. I have no time to take a nap, I'm too busy Please review and advise. Thank you Helder Sung LPN January 04, 2024 10:04 AM * Telephone Encounter - Hernesto Harvey APRN.CNP - 01/04/2024 9:19 AM EDT Was this the first time she was up at 3 since starting med? What time does she usually take this? Fall asleep? Wake up? Thank you Hernesto Harvey APRN.CNP * Telephone Encounter - Rylee Justin LPN - 01/04/2024 8:48 AM EDT Patient calling stated that she was changed to Ambien 6.25 mg time release. Patient stated that shewas up at 3am and the change is not working. Patient stated that her will be in office today with . Please review and advise. Rylee Justin LPN documented in this encounterBarnesville Hospital09-16-2024 Telephone encounter Note * Telephone Encounter - Helder Sung LPN - 01/04/2024 12:34 PM EDT Called and spoke to patient, will increase to 10mg of the Ambien and see if helps. Patient states has plenty and does not need refill at this time. Helder Sung LPN January 04, 2024 12:37 PM [facility] Telephone encounter Note* Telephone Encounter - Hernesto Harvey APRN.CNP - 01/04/2024 11:11 AM EDT We can increase to the 10mg dose to see if it helps or try a different option like lunesta. I thinkeither would be an appropriate choice. Which would she prefer? Thank you Hernesto Harvey APRN.CNP [facility] Telephone encounter Note* Telephone Encounter - Helder Sung LPN - 01/04/2024 10:01 AM EDT Called and spoke to patient, stated has only sleep past 3am once since taking to medication. Taking at 930pm and goes to bed, falls asleep after midnight and wakes at 3am, stays up and makes alunch for at 630am. Does not take a nap. I have no time to take a nap, I'm too busy Please review and advise. Thank you Helder Sung LPN January 04, 2024 10:04 AM [facility] Telephone encounter Note* Telephone Encounter - Hernesto Harvey APRN.CNP - 01/04/2024 9:19 AM EDT Was this the first time she was up at 3 since starting med? What time does she usually take this? Fall asleep? Wake up? Thank you Hernesto Harvey APRN.CNP [facility] Telephone encounter Note* Telephone Encounter - Rylee Justin LPN - 01/04/2024 8:48 AM EDT Patient calling stated that she was changed to Ambien 6.25 mg time release. Patient stated that shewas up at 3am and the change is not working. Patient stated that her will be in office today with . Please review and advise. Rylee Justin LPN [facility] History of Present illness Narrative* Alberto Argueta APRN.CNP - 12/30/2023 12:00 PM EDT Chief complaint: Seropositive RA HPI: To review, Kylie Russo is a 78 year old female [...] the certain PIPs that hasn't gone on forvery long - In spring, decreased HCQ to one daily per Dr. Clinton Farrar - In July, diagnosed with ILD. Sees Dr. 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 - In Jan, advised to resume HCQ once daily per vp of customer experience strategy (but didn't say why). - in 02/2023, reports that hands had become swollen off HCQ. Has been on HCQ for less than a month now, hasn't kicked back in yet. - With a cough and BRIGHT from ILD. - Last plaquenil eye exam normal around July or August PAST MEDICAL HISTORY No date: Abnormal mammogram, unspecified Comment: left breast 02/11/2015: BPPV (benign paroxysmal positional vertigo) No date: BPV (benign positional vertigo) No date: CAD (coronary artery disease) No date: Carotid stenosis 08/08/2005: CARPAL TUNNEL BILATERRAL No date: Coronary artery disease involving [place] coronary artery Comment: Dr. Pederson follows regularly; S/P PTCA and stenting at [facility], 2000 No date: Coronary atherosclerosis of unspecified type of vessel, [place] or graft No date: Disorder of bone and cartilage, unspecified No date: Diverticulosis of colon (without mention of hemorrhage) 09/28/2019: DKA (diabetic ketoacidoses) No date: Esophagitis No date: External hemorrhoids without mention of complication No date: Insomnia No date: Internal hemorrhoids without mention of complication No date: Mammographic microcalcification No date: Mild intermittent asthma without complication Comment: Adult onset 12/06/2018: 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) No date: Other and unspecified hyperlipidemia No date: Other forms of migraine No date: Other psoriasis No date: Postsurgical percutaneous transluminal coronary angioplasty status No date: Rheumatoid arthritis(714.0) No date: RLS (restless legs syndrome) No date: Stroke (cerebrum) (HCC) Comment: x3 03/01/2012: Thoracic or lumbosacral neuritis or radiculitis, unspecified No date: Type I (juvenile type) diabetes mellitus with neurological manifestations, not stated as 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.61) No date: 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, 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) No date: Unspecified asthma(493.90) No date: Unspecified essential hypertension No date: Unspecified hereditary and idiopathic peripheral neuropathy PAST SURGICAL HISTORY No date: BREAST BIOPSY 02/26/2204: COLONOSCOPY FLX DX W/COLLJ SPEC WHEN PFRMD Comment: Colonoscopy 08/29/15: COLONOSCOPY FLX DX W/COLLJ SPEC WHEN PFRMD Comment: Colonoscopy 11/10/2018: COLONOSCOPY FLX DX W/COLLJ SPEC WHEN PFRMD Comment: Colonoscopy 04/15/2002: EGD 11/10/2018: ESOPHAGOGASTRODUODENOSCOPY TRANSORAL DIAGNOSTIC Comment: EGD 03/2008: EXC BREAST LES PREOP PLMT RAD MARKER OPEN 1 LES No date: OPEN REPAIR OF ROTATOR CUFF CHRONIC Comment: left rotator cuff No date: PAST SURGICAL HISTORY OF Comment: tonsilectomy and adenoidectomy No date: PAST SURGICAL HISTORY OF Comment: right breast lumpectomy No date: PAST SURGICAL HISTORY OF Comment: x 3 1992: PAST SURGICAL HISTORY OF Comment: right thumb trigger finger No date: PAST SURGICAL HISTORY OF Comment: hand surgery No date: PAST SURGICAL HISTORY OF Comment: nose surgery age 17: PAST SURGICAL HISTORY OF Comment: axillary cyst removal 2000: PAST SURGICAL HISTORY OF Comment: heart cath with stent placement No date: PAST SURGICAL HISTORY OF Comment: CARDIAC CAATH 2000, 2001, AND 2004 No date: PREOP PLACEMENT NEEDLE LOC 02/24/08: STEREOTACTIC CORE BIOPSY Comment: LEFT - benign ALLERGIES Allergen Reactions Aggrenox [...] [Oxycodone* Unknown Sulfa (Sulfonamide * Hives blisters INTERVAL HISTORY This Team Access Model visit is a virtual encounter. It required patient- provider interaction for the medical decision making as documented below. I have communicated my name and active licensure. The patient's identity and physical location wereverified at the time of this visit. Either the patient or their legal financial services representative has been informed of the risks and benefits of -- and alternatives to -- treatment through a remote evaluation andconsents to proceed with the evaluation remotely. Reports new diagnosis of gastroparesis. She is doing well in terms of her joint symptoms. No fractures since the GABY. Sites of pain: low back, L lower extremity, pain rated 2/10 Joint swelling: occasional to fingers EMS:yes to back, lasting a couple seconds No recent infections. Tolerating meds. Answers submitted by the patient for this visit: Review of Systems Rheumatology (Submitted on 12/28/2023) Fever : No Recent unintentional weight change: No Eye pain: No Eye redness: No Vision Disturbance: No Eye Dryness: No Nosebleeds: Yes Sores in your mouth: No Trouble Swallowing: No Dry Mouth: No Chest pain: No Leg Swelling: Yes A cough: Yes Blood when you cough: No Shortness of breath: No Pain with breathing: No Heartburn: No Abdominal pain: No Diarrhea: No Black tarry stools: No Blood in urine: No Pain or burning with urination: No Joint pain or stiffness: No Muscle weakness: No Muscle aches: Yes Joint swelling: No Morning Stiffness in Joints: Yes A rash: No Skin Color Changes: No Hair Loss: Yes Nail Changes: Yes Headaches: No Numbness: No Memory Loss: No Swollen Glands: No Current Outpatient Medications Medication Sig zolpidem (AMBIEN CR) 6.25 mg CR tablet Take 1 tablet by mouth at bedtime as needed for up to 60 days. nystatin (MYCOSTATIN) powder Apply 1 application to [...] tablet by mouth two times a day. diclofenac sodium (VOLTAREN ARTHRITIS PAIN TOPICAL) Apply 2 g to affected area as needed (pain). lidocain-me.jhganfs-zkdi-iuizo 0.5-20-0.035-5 % ptmd Apply 1 Each to affected area as needed. traMADol (ULTRAM) 50 mg tablet Take 50 mg by mouth every 6 hours as needed for pain. albuterol HFA (PROVENTIL HFA, VENTOLIN HFA) 90 mcg/actuation inhaler Inhale 2 Puffs as instructed every 4 hours as needed for wheezing/shortness of breath. amLODIPine (NORVASC) 5 mg tablet TAKE 1 TABLET BY MOUTH EVERY DAY WALKER ROLLATOR SEAT WITH 6 WHEELS - RED For ambulation diphenhydrAMINE (BENADRYL) 25 mg capsule Please take 2 tablets an hour prior to the contrast procedure nitroglycerin (NITROLINGUAL) 400 mcg/spray spray one every 5 minutes x3 as needed (Patient taking differently: Dissolve 1 [place] under the tongue every 5 minutes as [...] (autoimmune def) Daughter SOCIAL HISTORY: Lives in [place] with spouse. 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 Son in law is a pediatric physician. Tobacco use: None Alcohol use: None Drug use: None PHYSICAL EXAM: CONSTITUTIONAL: Well-appearing, in NAD. EYES: No scleral icterus or conjunctivitis NEURO: Awake, alert and oriented Widespread Pain Index: 13 (0-19) Symptoms Severity Scale: 3 (0-12) WPI>7 and SS Scale>5 OR WPI 3-6 and SS Scale >9 consistent with fibromyalgia Labs reviewed and discussed with the patient: Latest Ref Rng 09/01/2023 Protein, Total 6.3 - 8.0 g/dL 6.7 Albumin 3.9 - 4.9 g/dL 3.8 (L) Calcium 8.5 - 10.2 mg/dL 9.4 Bilirubin, Total 0.2 - 1.3 mg/dL 0.6 Alkaline Phosphatase 34 - 123 U/L 95 AST 13 - 35 U/L 31 ALT 7 - 38 U/L 29 Glucose 74 - 99 mg/dL 216 (H) BUN 7 - 21 mg/dL 16 Creatinine 0.58 - 0.96 mg/dL 0.65 Sodium 136 - 144 mmol/L 143 Potassium 3.7 - 5.1 mmol/L 3.8 Chloride 97 - 105 mmol/L 108 (H) CO2 22 - 30 mmol/L 24 Anion Gap 9 - 18 mmol/L 11 eGFR >=60 mL/min/1.73m 91 Latest Ref Rng 07/31/2023 WBC 3.70 - 11.00 k/uL 6.54 RBC 3.90 - 5.20 m/uL 3.95 Hemoglobin 11.5 - 15.5 g/dL 12.9 Hematocrit 36.0 - 46.0 % 37.6 MCV 80.0 - 100.0 fL 95.2 MCH 26.0 - 34.0 pg 32.7 MCHC 30.5 - 36.0 g/dL 34.3 RDW-CV 11.5 - 15.0 % 12.7 Platelet Count 150 - 400 k/uL 206 MPV 9.0 - 12.7 fL 11.4 Neut% % 64.0 Abs Neut (ANC) 1.45 - 7.50 k/uL 4.19 Lymph% % 22.2 Abs Lymph 1.00 - 4.00 k/uL 1.45 [place]% % 11.5 Abs [place] <0.87 k/uL 0.75 Eosin% % 1.5 Abs Eosin <0.46 k/uL 0.10 Baso% % 0.5 Abs Baso <0.11 k/uL 0.03 Immature Gran % % 0.3 IMMATURE GRANS (ABS) <0.10 k/uL <0.03 NRBC /100 WBC 0.0 Absolute nRBC <0.01 k/uL <0.01 DTYPE Auto Creatinine 0.58 - 0.96 mg/dL 0.70 eGFR >=60 mL/min/1.73m 90 AST 13 - 35 U/L 26 ALT 7 - 38 U/L 19 Albumin 3.9 - 4.9 g/dL 3.8 (L) Latest Ref Rng 02/25/2023 Vitamin D 25 Hydroxy 31.0 - 80.0 ng/mL 34.5 *Nov neg RF, CCP, SUSI, scl70, ssa Component Latest Ref Rng & Units 06/29/2006 05/19/2019 Rheumatoid Factor <16 IU/mL 434 (H) <10 CCP Antibody, IgG <20 Units <15 Anti Neutrophil Cytoplasmic Ab, IgG <1:20 <1:20 STUDIES: 02/2023 DEXA: IMPRESSION: THE LOWEST T-SCORE IS -0.9 IN THE RIGHT HIP 1) DIAGNOSIS (based on BMD alone): NORMAL BONE DENSITY *Nov TTE-mild concentric LVH. Mild diastolic dysfunction. [...] enbrel, and orencia. However, with significantly improved symptomss/p multiple strokes. ' serologies unremarkable but explained hx is still c/w RA. Stable overall. - continue HCQ 200 mg bid. Potential side effects were explained, including retinal toxicity leading to blindness. Advised that routine ophthalmology follow-up at least annually thereafter (last normal in 03/2023). She was reminded to schedule another exam for this year. - previously advised no further tx is needed at this time from the joint perspective but to let us know if the shotgun shell reprinting unit operator feels like additional tx is needed from the ILD standpoint so that we can provide input as needed. - Continue pulmonary management of ILD -check labs in 01/2024 2. History of osteopenia: Multiple remote fractures, not clearly fragility fractures per history. Remote use of fosamax '- per the medication list although she doesn't recall this. DEXA withnormal BMD, Nov DXA with osteopenia. 02/2023 DEXA was normal. - Continue calcium and vitamin D supplementation - fall precautions - next DEXA due 02/2025 3. General health maintenance: - Advised to continue follow-up with PCP for routine health maintenance and malignancy screening Follow-up in 5 months, or sooner if needed Thank you for allowing me to participate in the care of your patient. Alberto Argueta APRN.CROP AND SOIL TECHNICIAN documented in this encounterBarn[facility]ville Hospital09-09-[facility]24 Telephone encounter Note * Telephone Encounter - Michelle Baird MA - 12/28/2023 4:11 PM EDT Spoke with patient, states she has to eat breakfast by 6 am and was afraid this would not allow herto get up in time to eat. Advised patient to maybe take and go to bed earlier to ensure she gets upand that a good night rest is better than only sleeping 3-4 hours Patient agreeable to trying and will let us know if any adverse side effects. [facility]09-09-[facility] Miscellaneous Notes* Telephone Encounter - Michelle Baird MA - 12/28/2023 4:11 PM EDT Spoke with patient, states she has to eat breakfast by 6 am and was afraid this would not allow herto get up in time to eat. Advised patient to maybe take and go to bed earlier to ensure she gets upand that a good night rest is better than only sleeping 3-4 hours Patient agreeable to trying and will let us know if any adverse side effects. * Telephone Encounter - Hernesto Harvey APRN.CNP - 12/28/2023 3:53 PM EDT Did her grain sacker tell her not to take this? Point was the 5mg was only working for 3-4 hours. Thank you Hernesto Harvey APRN.CNP * Telephone Encounter - Carola Huang RN - 12/28/2023 3:22 PM EDT Patient calling to request script for Ambien 5 mg as previously taking. She says she picked up the script for Ambien 6.25 mg CR but says she cannot take because it is time released. She says this is due to the routine she needs to keep for gastroparesis. Carola Huang RN documented in this encounterBarnesville Hospital09-09-2024 Telephone encounter Note * Telephone Encounter - Hernesto Harvey APRN.CNP - 12/28/2023 3:53 PM EDT Did her grain sacker tell her not to take this? Point was the 5mg was only working for 3-4 hours. Thank you Hernesto Harvey APRN.CNP [facility]09-09-20[facility] Telephone encounter Note* Telephone Encounter - Carola Huang RN - 12/28/2023 3:22 PM EDT Patient calling to request script for Ambien 5 mg as previously taking. She says she picked up the script for Ambien 6.25 mg CR but says she cannot take because it is time released. She says this is due to the routine she needs to keep for gastroparesis. Carola Huang RN [facility]09-06-[facility] Telephone encounter Note* Telephone Encounter - Diamond Rushing MA - 12/25/2023 4:37 PM EDT Received and returned fax to [facility] along with GABY notes from provider and education. Confirmation received. Placed in file Diamond Rushing MA [facility]09-06-2024 Miscellaneous Notes* Telephone Encounter - Diamond Rushing MA - 12/25/2023 4:37 PM EDT Received and returned fax to [facility] along with GABY notes from provider and education. Confirmation received. Placed in file Diamond Rushing MA documented in this encounterBarnesville Hospital09-05-2024 History of Present illness Narrative* Wse, Hernesto, CARLOS EDUARDO.CROP AND SOIL TECHNICIAN - 12/24/2023 1:40 PM EDT This Team Access Model visit is a virtual encounter. It required patient- provider interaction for the medical decision making as documented below. Patient agrees to the visit: Yes Patient Location: [place] CC: Patient presents with: Insomnia HPI Kylie Russo is a 78 year old female who is contacted today for a virtual visit. This is an established patient of Dr. Alcira Anderson MD. Patient with ongoing insomnia. Restarted on low dose ambienand this visit is to review how she is tolerating this. Was able to fall asleep with the ambien but only sleeping 3-4 hours. Tolerating well and not havingdizziness, confusion, or falls. REVIEW OF SYSTEMS See HPI PAST MEDICAL HISTORY No date: Abnormal mammogram, unspecified Comment: left breast 02/11/2015: BPPV (benign paroxysmal positional vertigo) No date: BPV (benign positional vertigo) No date: CAD (coronary artery disease) No date: Carotid stenosis 08/08/2005: CARPAL TUNNEL BILATERRAL No date: Coronary artery disease involving [place] coronary artery Comment: Dr. Pederson follows regularly; S/P PTCA and stenting at [facility], 2000 No date: Coronary atherosclerosis of unspecified type of vessel, [place] or graft No date: Disorder of bone and cartilage, unspecified No date: Diverticulosis of colon (without mention of hemorrhage) 09/28/2019: DKA (diabetic ketoacidoses) No date: Esophagitis No date: External hemorrhoids without mention of complication No date: Insomnia No date: Internal hemorrhoids without mention of complication No date: Mammographic microcalcification No date: Mild intermittent asthma without complication Comment: Adult onset 12/06/2018: 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) No date: Other and unspecified hyperlipidemia No date: Other forms of migraine No date: Other psoriasis No date: Postsurgical percutaneous transluminal coronary angioplasty status No date: Rheumatoid arthritis(714.0) No date: RLS (restless legs syndrome) No date: Stroke (cerebrum) (HCC) Comment: x3 03/01/2012: Thoracic or lumbosacral neuritis or radiculitis, unspecified No date: Type I (juvenile type) diabetes mellitus with neurological manifestations, not stated as 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.61) No date: 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, 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) No date: Unspecified asthma(493.90) No date: Unspecified essential hypertension No date: Unspecified hereditary and idiopathic peripheral neuropathy PAST SURGICAL HISTORY No date: BREAST BIOPSY 02/26/2204: COLONOSCOPY FLX DX W/COLLJ SPEC WHEN PFRMD Comment: Colonoscopy 08/29/15: COLONOSCOPY FLX DX W/COLLJ SPEC WHEN PFRMD Comment: Colonoscopy 11/10/2018: COLONOSCOPY FLX DX W/COLLJ SPEC WHEN PFRMD Comment: Colonoscopy 04/15/2002: EGD 11/10/2018: ESOPHAGOGASTRODUODENOSCOPY TRANSORAL DIAGNOSTIC Comment: EGD 03/2008: EXC BREAST LES PREOP PLMT RAD MARKER OPEN 1 LES No date: OPEN REPAIR OF ROTATOR CUFF CHRONIC Comment: left rotator cuff No date: PAST SURGICAL HISTORY OF Comment: tonsilectomy and adenoidectomy No date: PAST SURGICAL HISTORY OF Comment: right breast lumpectomy No date: PAST SURGICAL HISTORY OF Comment: x 3 1992: PAST SURGICAL HISTORY OF Comment: right thumb trigger finger No date: PAST SURGICAL HISTORY OF Comment: hand surgery No date: PAST SURGICAL HISTORY OF Comment: nose surgery age 17: PAST SURGICAL HISTORY OF Comment: axillary cyst removal 2000: PAST SURGICAL HISTORY OF Comment: heart cath with stent placement No date: PAST SURGICAL HISTORY OF Comment: CARDIAC CAATH 2000, 2001, AND 2004 No date: PREOP PLACEMENT NEEDLE LOC 02/24/08: STEREOTACTIC CORE BIOPSY Comment: LEFT - benign ALLERGIES Aggrenox [Aspirin-Dipyridamole], Amitriptyline, Cephalexin (Bulk), Cymbalta [Duloxetine],Doxycycline, Duricef [Cefadroxil], Ephedrine, Iodine, Isolone Forte, Levaquin [Levofloxacin], Lyrica [Pregabalin], Nortriptyline, Oxycodone, Percocet [Oxycodone-Acetaminophen], and Sulfa (Sulfonamide Antibiotics) MEDICATIONS zolpidem (AMBIEN) 5 mg tablet Take 1 tablet by mouth at bedtime as needed for sedation for up to 30days. clopidogrel (PLAVIX) 75 mg tablet Take 1 tablet by mouth once daily. atorvastatin (LIPITOR) 40 mg tablet Take 1 tablet by mouth once daily. pramipexole (MIRAPEX) 1 mg tablet Take 2 tablets by mouth daily at bedtime. neomycin 500 mg tablet Take 1 tablet by mouth every 12 hours. (Patient not taking: Reported on 11/25/2023) nystatin (MYCOSTATIN) powder Apply 1 application to affected area three times a day. metoclopramide HCl (REGLAN) 5 mg tablet Take [...] tablet by mouth two times a day. diclofenac sodium (VOLTAREN ARTHRITIS PAIN TOPICAL) Apply 2 g to affected area as needed (pain). lidocain-me.hfkqgfi-ncxu-tzsah 0.5-20-0.035-5 % ptmd Apply 1 Each to affected area as needed. traMADol (ULTRAM) 50 mg tablet Take 50 mg by mouth every 6 hours as needed for pain. albuterol HFA (PROVENTIL HFA, VENTOLIN HFA) 90 mcg/actuation inhaler Inhale 2 Puffs as instructed every 4 hours as needed for wheezing/shortness of breath. amLODIPine (NORVASC) 5 mg tablet TAKE 1 TABLET BY MOUTH EVERY DAY WALKER ROLLATOR SEAT WITH 6 WHEELS - RED For ambulation diphenhydrAMINE (BENADRYL) 25 mg capsule Please take 2 tablets an hour prior to the contrast procedure nitroglycerin (NITROLINGUAL) 400 mcg/spray spray one every 5 minutes x3 as needed (Patient taking differently: Dissolve 1 [place] under the tongue every 5 minutes as [...] without obvious respiratory distress or audible wheezing. Virtual visit completed using video, limited exam completed. GENERAL: alert and appropriate, in no distress, well-hydrated, well nourished, and happy, smiling, interactive RESPIRATORY: breathing non-labored CHEST: equal chest rise with normal respiratory effort DATA REVIEWED: No new labs BP Controlled (<130/80) Never done Covid-19 Vaccine( season) due on 12/20/2023 Influenza Vaccine(1) due on 12/20/2023 Diabetic Foot Exam due on 02/01/2024 Spirometry due on 08/18/2024 HbA1C due on 03/03/2024 Dilated Retinal Exam due on 03/24/2024 Urine Albumin:Creatinine Ratio due on 08/31/2024 LDL Cholesterol due on 08/31/2024 Annual PCP Team Chronic Disease Visit due on 12/06/2024 DTaP,Tdap,Td Vaccine(3 - Td or Tdap) due on 07/31/2031 Bone Density Screening Completed Advance Directive Discussion Completed RSV Vaccine Completed Hepatitis C Screening Completed Shingrix Vaccine Completed Pneumococcal Vaccine: 65+ Completed Mammogram Screening Discontinued Colorectal Cancer Screening Discontinued ASSESSMENT/PLAN: 1. Insomnia, unspecified type - ICD9: 780.52, ICD10: G47.00 Improved but does not stay asleep, will trial ER option - follow up in 30 days - ZOLPIDEM ER 6.25 MG TABLET,EXTENDED RELEASE,MULTIPHASE 2. Intertrigo - ICD9: 695.89, ICD10: L30.4 Not discussed today, refill needed - NYSTATIN 100,000 UNIT/GRAM TOPICAL POWDER Prescription instructions reviewed with patient as applicable. Potential red flag symptoms discussed with the patient. Reviewed appropriate action plan to take if red flag symptoms occur. Patient agreeable to treatment plan. During this patient visit I have spent approximately 10 minutes in counseling regarding treatment options, medications, and coordinating care. Hernesto Harvey APRN.CNP documented in this encounterBarnesville Hospital09-04-2024 History of Present illness Narrative* Clinton Bess RN - 12/23/2023 3:15 PM EDT DIABETES CARE AND EDUCATION VISIT Location: [place] Type of visit: In person individual PATIENT'S MAIN CONCERN TODAY: Help with placing this sensor on the back of the arm so he can learn how it should be done. Support person present for education today: family Cognitive ability: Alert and oriented Motivation to learn: Interested Learning barriers identified by educator: none Method of instruction: written, verbal, and demonstration DIABETES FINDINGS: Reviewed how to place the Guardian 4 sensor on the back of the arm and how to use the overtape. HANDOUTS: Printed the QRG from [employer] Website that walks through Guardian 4 insertion with illustrated steps LEARNING RESPONSE: Monitoring glucose: Demonstrated understanding/competency today or at previous visit POSSIBLE FUTURE TOPICS: 1. DIABETES CARE AND EDUCATION PLAN: Education completed and annual diabetes education follow-up visit recommended Time Spent (Minutes): 30 This visit note will be communicated to the healthcare provider via access to shared medical record. SIGNATURE: Clinton Bess RN PATIENT NAME: Kylie Russo DATE: December 23, 2023 TIME: 3:15 PM documented in this encounterBarnesville Hospital08-27-2024 History of Present illness Narrative* Clinton Bess RN - 12/15/2023 11:04 AM EDT DIABETES CARE AND EDUCATION VISIT Location: [place] Type of visit: In person individual PATIENT'S MAIN CONCERN TODAY: Issues with the pump Support person present for education today: son Cognitive ability: Alert and oriented Motivation to learn: Interested Learning barriers identified by educator: none Method of instruction: written, verbal, and demonstration DIABETES FINDINGS: Having issues with the pump not controlling sugars. Reports it will climb overnight and will give issues. They recommended changing the sensor and infusion. Started the 780g last February, [facility] diabetes supplies not covering the test strips. Download shows she is in target range 72% of the time, with no lows. We reviewed proper bolusing with Gastroparesis, she will give only half ahead. Discussed when to change her sensor out or perform calibration. She reports frequent bleeding from sensor insertions which could make the readings unreliable. LEARNING RESPONSE: Taking medications: Demonstrated understanding/competency today or at previous visit Monitoring glucose: Demonstrated understanding/competency today or at previous visit POSSIBLE FUTURE TOPICS: 1. DIABETES CARE AND EDUCATION PLAN: Individual follow-up Time Spent (Minutes): 60 This visit note will be communicated to the healthcare provider via access to shared medical record. SIGNATURE: Clinton Bess RN PATIENT NAME: Kylie Russo DATE: December 15, 2023 TIME: 11:04 AM documented in this encounterBarnesville Hospital08-19-2024 History of Present illness Narrative* Hernesto Harvey APRN.CROP AND SOIL TECHNICIAN - 12/07/2023 3:32 PM EDT CC: Patient presents with: Recheck: Trouble sleeping HPI Kylie Russo is a 78 year old female who presents today for trouble sleeping. Chronic insomnia: Over the last month has been having difficulty sleeping since having a carotid USand nuclear stress test. Currently trying to go to bed earlier but unable to fall asleep until midnight and then is awake at 3am. Has been on klonopin as needed but no longer effective. No recent falls. Has been on trazadone, nortryptilline, restoril, and seroquel previously without it being effective. Was on Ambien for many years and tolerated well but took herself off of it. REVIEW OF SYSTEMS General: no fevers, no chills, no night sweats, no recurrent infections, no change in appetite, no change in energy, and no significant changes in weight Respiratory: no cough, no wheezing, no shortness of breath, no hemoptysis Cardiovascular: no chest pain, no chest pressure, no palpitations, and no swelling Neurologic: No headache, weakness, dizziness, memory loss, syncope. PAST MEDICAL HISTORY No date: Abnormal mammogram, unspecified Comment: left breast 02/11/2015: BPPV (benign paroxysmal positional vertigo) No date: BPV (benign positional vertigo) No date: CAD (coronary artery disease) No date: Carotid stenosis 08/08/2005: CARPAL TUNNEL BILATERRAL No date: Coronary artery disease involving [place] coronary artery Comment: Dr. Pederson follows regularly; S/P PTCA and stenting at [facility], 2000 No date: Coronary atherosclerosis of unspecified type of vessel, [place] or graft No date: Disorder of bone and cartilage, unspecified No date: Diverticulosis of colon (without mention of hemorrhage) 09/28/2019: DKA (diabetic ketoacidoses) No date: Esophagitis No date: External hemorrhoids without mention of complication No date: Insomnia No date: Internal hemorrhoids without mention of complication No date: Mammographic microcalcification No date: Mild intermittent asthma without complication Comment: Adult onset 12/06/2018: Mild nonproliferative diabetic retinopathy of both eyes ([facility]) No date: Other and unspecified hyperlipidemia No date: Other forms of migraine No date: Other psoriasis No date: Postsurgical percutaneous transluminal coronary angioplasty status No date: Rheumatoid arthritis(714.0) No date: RLS (restless legs syndrome) No date: Stroke (cerebrum) ([facility]) Comment: x3 03/01/2012: Thoracic or lumbosacral neuritis or radiculitis, unspecified No date: Type I (juvenile type) diabetes mellitus with neurological manifestations, not stated as 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.61) No date: 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, 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) No date: Unspecified asthma(493.90) No date: Unspecified essential hypertension No date: Unspecified hereditary and idiopathic peripheral neuropathy PAST SURGICAL HISTORY No date: BREAST BIOPSY 02/26/2204: COLONOSCOPY FLX DX W/COLLJ SPEC WHEN PFRMD Comment: Colonoscopy 08/29/15: COLONOSCOPY FLX DX W/COLLJ SPEC WHEN PFRMD Comment: Colonoscopy 11/10/2018: COLONOSCOPY FLX DX W/COLLJ SPEC WHEN PFRMD Comment: Colonoscopy 04/15/2002: EGD 11/10/2018: ESOPHAGOGASTRODUODENOSCOPY TRANSORAL DIAGNOSTIC Comment: EGD 03/2008: EXC BREAST LES PREOP PLMT RAD MARKER OPEN 1 LES No date: OPEN REPAIR OF ROTATOR CUFF CHRONIC Comment: left rotator cuff No date: PAST SURGICAL HISTORY OF Comment: tonsilectomy and adenoidectomy No date: PAST SURGICAL HISTORY OF Comment: right breast lumpectomy No date: PAST SURGICAL HISTORY OF Comment: x 3 1992: PAST SURGICAL HISTORY OF Comment: right thumb trigger finger No date: PAST SURGICAL HISTORY OF Comment: hand surgery No date: PAST SURGICAL HISTORY OF Comment: nose surgery age 17: PAST SURGICAL HISTORY OF Comment: axillary cyst removal 2000: PAST SURGICAL HISTORY OF Comment: heart cath with stent placement No date: PAST SURGICAL HISTORY OF Comment: CARDIAC CAATH 2000, 2001, AND 2004 No date: PREOP PLACEMENT NEEDLE LOC 02/24/08: STEREOTACTIC CORE BIOPSY Comment: LEFT - benign ALLERGIES Aggrenox [Aspirin-Dipyridamole], Amitriptyline, Cephalexin (Bulk), Cymbalta [Duloxetine],Doxycycline, Duricef [Cefadroxil], Ephedrine, Iodine, Isolone Forte, Levaquin [Levofloxacin], Lyrica [Pregabalin], Nortriptyline, Oxycodone, Percocet [Oxycodone-Acetaminophen], and Sulfa (Sulfonamide Antibiotics) MEDICATIONS pramipexole (MIRAPEX) 1 mg tablet Take 2 tablets by mouth daily at bedtime. neomycin 500 mg tablet Take 1 tablet by mouth every 12 hours. (Patient not taking: Reported on 11/25/2023) nystatin (MYCOSTATIN) powder Apply 1 application to affected area three times a day. metoclopramide HCl (REGLAN) 5 mg tablet Take 1 tablet by mouth every 6 hours for 30 days; administer 30 minutes before a meal. clonazePAM (KLONOPIN) 1 mg tablet Take 1 tablet by mouth at bedtime as needed for up to 90 days. Insulin Syringe-Needle U-100 (BD INSULIN SYRINGE ULTRA-FINE) 1 mL 31 gauge x 5/16 Use 4 syringes daily if insulin pump fails blood sugar diagnostic (ACCU-CHEK GUIDE TEST STRIPS) test strip Use with blood glucose test upto four times daily clopidogrel (PLAVIX) 75 mg tablet Take 1 [...] tablet by mouth two times a day. diclofenac sodium (VOLTAREN ARTHRITIS PAIN TOPICAL) Apply 2 g to affected area as needed (pain). lidocain-me.fhmdylf-nlpv-vrvia 0.5-20-0.035-5 % ptmd Apply 1 Each to affected area as needed. traMADol (ULTRAM) 50 mg tablet Take 50 mg by mouth every 6 hours as needed for pain. albuterol HFA (PROVENTIL HFA, VENTOLIN HFA) 90 mcg/actuation inhaler Inhale 2 Puffs as instructed every 4 hours as needed for wheezing/shortness of breath. amLODIPine (NORVASC) 5 mg tablet TAKE 1 TABLET BY MOUTH EVERY DAY WALKER ROLLATOR SEAT WITH 6 WHEELS - RED For ambulation diphenhydrAMINE (BENADRYL) 25 mg capsule Please take 2 tablets an hour prior to the contrast procedure nitroglycerin (NITROLINGUAL) 400 mcg/spray spray one every 5 minutes x3 as needed (Patient taking differently: Dissolve 1 [place] under the tongue every 5 minutes as [...] No Drug use: No PHYSICAL EXAM BP 132/70 Pulse 64 Resp 16 Wt 75.3 kg (166 lb) SpO2 97% BMI 30.96 kg/m General Appearance: well appearing, in no acute distress, alert Pysch: mood and affect broad and appropriate Eyes: conjunctiva pink and moist, no icterus, sclera white, non-injected Lungs: Lungs clear to auscultation. No wheezing, rhonchi, rales. Heart: RRR without murmur, gallop, or rubs. No ectopy Health maintenance reviewed with patient: BP Controlled (<130/80) Never done Covid-19 Vaccine( season) due on 08/27/2023 Diabetic Foot Exam due on 02/01/2024 Spirometry due on 08/18/2024 Influenza Vaccine(1) due on 12/20/2023 HbA1C due on 03/03/2024 Dilated Retinal Exam due on 03/24/2024 Annual PCP Team Chronic Disease Visit due on 08/18/2024 Urine Albumin:Creatinine Ratio due on 08/31/2024 LDL Cholesterol due on 08/31/2024 DTaP,Tdap,Td Vaccine(3 - Td or Tdap) due on 07/31/2031 Bone Density Screening Completed Advance Directive Discussion Completed RSV Vaccine Completed Hepatitis C Screening Completed Shingrix Vaccine Completed Pneumococcal Vaccine: 65+ Completed Mammogram Screening Discontinued Colorectal Cancer Screening Discontinued DATA REVIEWED: No new labs ASSESSMENT/PLAN: 1. Insomnia, unspecified type - ICD9: 780.52, ICD10: G47.00 (primary diagnosis) Uncontrolled, stop klonopin and try ambien Follow up in 2-4 weeks. - ZOLPIDEM 5 MG TABLET 2. Type 1 diabetes mellitus with diabetic neuropathy (HCC) - ICD9: 250.61, 357.2, ICD10: E10.40 - not discussed in appointment today, follows with endocrinology but requested referral for education in appointment. - CONSULT TO DIABETES EDUCATION DSME 3. Mixed hyperlipidemia - ICD9: 272.2, ICD10: E78.2 Not discussed today, refill needed. - ATORVASTATIN 40 MG TABLET Prescription instructions reviewed with patient as applicable. Potential red flag symptoms discussed with the patient. Reviewed appropriate action plan to take if red flag symptoms occur. Patient agreeable to treatment plan. Hernesto Harvey APRN.CNP documented in this encounterBarn[facility]08-12-[facility]24 Telephone encounter Note * Telephone Encounter - Maranda Peters - 11/30/2023 11:33 AM EDT Patient needs this rx switched to [facility] in . Said she never received the rx that was sent to [facility] in August. [facility]08-12-[facility]24 Miscellaneous Notes* Telephone Encounter - Maranda Peters - 11/30/2023 11:33 AM EDT Patient needs this rx switched to [facility] in . Said she never received the rx that was sent to [facility] in August. * Telephone Encounter - Maranda Peters - 11/30/2023 11:32 AM EDT Prescription Refill Information The patient has been identified by name and date of : Yes Caregiver verified no other encounters exist for this prescription request: Yes Caregiver confirmed with patient/requestor that no other refills are due, in the near future, with this provider at this time: Yes The last office visit in the department: 08/19/23 Does the patient have a future office visit with this provider/department: Yes Requested Prescriptions Pending Prescriptions Disp Refills pramipexole (MIRAPEX) 1 mg tablet 180 tablet 1 Sig: Take 2 tablets by mouth daily at bedtime. aMranda Jasso November 30, 2023 11:32 AM documented in this encounterBarnesville Hospital08-12-2024 Telephone encounter Note * Telephone Encounter - Maranda Peters - 11/30/2023 11:32 AM EDT Prescription Refill Information The patient has been identified by name and date of : Yes Caregiver verified no other encounters exist for this prescription request: Yes Caregiver confirmed with patient/requestor that no other refills are due, in the near future, with this provider at this time: Yes The last office visit in the department: 08/19/23 Does the patient have a future office visit with this provider/department: Yes Requested Prescriptions Pending Prescriptions Disp Refills pramipexole (MIRAPEX) 1 mg tablet 180 tablet 1 Sig: Take 2 tablets by mouth daily at bedtime. Maranda Jasso November 30, 2023 11:32 AM [facility]08-08-2024 Telephone encounter Note* Telephone Encounter - Jessica Posada MA - 11/26/2023 4:00 PM EDT Patient notified. Jessica Posada MA [facility]08-08-2024 Miscellaneous Notes* Telephone Encounter - Jessica Posada MA - 11/26/2023 4:00 PM EDT Patient notified. Jessica Posada MA * Telephone Encounter - Carola Huang RN - 11/26/2023 3:18 PM EDT Patient calling to ask for directions on how to use Nystatin cream and powder that was prescribed in [facility] yesterday. Carola Huang RN documented in this encounterBarnesville Hospital08-08-2024 Telephone encounter Note * Telephone Encounter - Carola Huang RN - 11/26/2023 3:18 PM EDT Patient calling to ask for directions on how to use Nystatin cream and powder that was prescribed in [facility] yesterday. Carola Huang RN [facility]08-07-2024 History of Present illness Narrative* Siddharth Palm APRN.CROP AND SOIL TECHNICIAN - 11/25/2023 12:32 PM EDT Images from the original note were not included. Subjective HPI HPI Kylie Russo is a 78 year old female who presents today for CC of tender rash on abdomen. This started 1 week ago. Has tried neosporin for relief. Symptoms are worsened by nothing. Risk factors has had this in past. .Patient presents with: Derm Problem: Skin irritation x1 week, has been using neosporin with no relief PAST MEDICAL HISTORY No date: Abnormal mammogram, unspecified Comment: left breast 02/11/2015: BPPV (benign paroxysmal positional vertigo) No date: BPV (benign positional vertigo) No date: CAD (coronary artery disease) No date: Carotid stenosis 08/08/2005: CARPAL TUNNEL BILATERRAL No date: Coronary artery disease involving [place] coronary artery Comment: Dr. Pederson follows regularly; S/P PTCA and stenting at [facility], 2000 No date: Coronary atherosclerosis of unspecified type of vessel, [place] or graft No date: Disorder of bone and cartilage, unspecified No date: Diverticulosis of colon (without mention of hemorrhage) 09/28/2019: DKA (diabetic ketoacidoses) No date: Esophagitis No date: External hemorrhoids without mention of complication No date: Insomnia No date: Internal hemorrhoids without mention of complication No date: Mammographic microcalcification No date: Mild intermittent asthma without complication Comment: Adult onset 12/06/2018: Mild nonproliferative diabetic retinopathy of both eyes ([facility]) No date: Other and unspecified hyperlipidemia No date: Other forms of migraine No date: Other psoriasis No date: Postsurgical percutaneous transluminal coronary angioplasty status No date: Rheumatoid arthritis(714.0) No date: RLS (restless legs syndrome) No date: Stroke (cerebrum) ([facility]) Comment: x3 03/01/2012: Thoracic or lumbosacral neuritis or radiculitis, unspecified No date: Type I (juvenile type) diabetes mellitus with neurological manifestations, not stated as 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.61) No date: 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, 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) No date: Unspecified asthma(493.90) No date: Unspecified essential hypertension No date: Unspecified hereditary and idiopathic peripheral neuropathy PAST SURGICAL HISTORY No date: BREAST BIOPSY 02/26/2204: COLONOSCOPY FLX DX W/COLLJ SPEC WHEN PFRMD Comment: Colonoscopy 08/29/15: COLONOSCOPY FLX DX W/COLLJ SPEC WHEN PFRMD Comment: Colonoscopy 11/10/2018: COLONOSCOPY FLX DX W/COLLJ SPEC WHEN PFRMD Comment: Colonoscopy 04/15/2002: EGD 11/10/2018: ESOPHAGOGASTRODUODENOSCOPY TRANSORAL DIAGNOSTIC Comment: EGD 03/2008: EXC BREAST LES PREOP PLMT RAD MARKER OPEN 1 LES No date: OPEN REPAIR OF ROTATOR CUFF CHRONIC Comment: left rotator cuff No date: PAST SURGICAL HISTORY OF Comment: tonsilectomy and adenoidectomy No date: PAST SURGICAL HISTORY OF Comment: right breast lumpectomy No date: PAST SURGICAL HISTORY OF Comment: x 3 1992: PAST SURGICAL HISTORY OF Comment: right thumb trigger finger No date: PAST SURGICAL HISTORY OF Comment: hand surgery No date: PAST SURGICAL HISTORY OF Comment: nose surgery age 17: PAST SURGICAL HISTORY OF Comment: axillary cyst removal 2000: PAST SURGICAL HISTORY OF Comment: heart cath with stent placement No date: PAST SURGICAL HISTORY OF Comment: CARDIAC CAATH 2000, 2001, AND 2004 No date: PREOP PLACEMENT NEEDLE LOC 02/24/08: STEREOTACTIC CORE BIOPSY Comment: LEFT - benign ALLERGIES Aggrenox [Aspirin-Dipyridamole], Amitriptyline, Cephalexin (Bulk), Cymbalta [Duloxetine],Doxycycline, Duricef [Cefadroxil], Ephedrine, Iodine, Isolone Forte, Levaquin [Levofloxacin], Lyrica [Pregabalin], Nortriptyline, Oxycodone, Percocet [Oxycodone-Acetaminophen], and Sulfa (Sulfonamide Antibiotics) MEDICATIONS neomycin 500 mg tablet Take 1 tablet by mouth every 12 hours. (Patient not taking: Reported on 11/25/2023) nystatin (MYCOSTATIN) cream Apply 1 application to affected area three times a day for 7 days. nystatin (MYCOSTATIN) powder Apply 1 application to affected area three times a day. metoclopramide HCl (REGLAN) 5 mg tablet Take 1 tablet by mouth every 6 hours for 30 days; administer 30 minutes before a meal. clonazePAM (KLONOPIN) 1 mg tablet Take 1 tablet by mouth at bedtime as needed for up to 90 days. Insulin Syringe-Needle U-100 (BD INSULIN SYRINGE ULTRA-FINE) 1 mL 31 gauge x 09/02 Use 4 syringes daily if insulin pump fails blood sugar diagnostic (ACCU-CHEK GUIDE TEST STRIPS) test strip Use with blood glucose test upto four times daily clopidogrel (PLAVIX) 75 mg tablet Take 1 [...] bedtime. hydrOXYchloroQUINE (PLAQUENIL) 200 mg tablet Take 1 tablet by mouth two times a day. diclofenac sodium (VOLTAREN ARTHRITIS PAIN TOPICAL) Apply 2 g to affected area as needed (pain). lidocain-me.yptpued-hige-imtqk 0.5-20-0.035-5 % ptmd Apply 1 Each to affected area as needed. traMADol (ULTRAM) 50 mg tablet Take 50 mg by mouth every 6 hours as needed for pain. albuterol HFA (PROVENTIL HFA, VENTOLIN HFA) 90 mcg/actuation inhaler Inhale 2 Puffs as instructed every 4 hours as needed for wheezing/shortness of breath. amLODIPine (NORVASC) 5 mg tablet TAKE 1 TABLET BY MOUTH EVERY DAY WALKER ROLLATOR SEAT WITH 6 WHEELS - RED For ambulation diphenhydrAMINE (BENADRYL) 25 mg capsule Please take 2 tablets an hour prior to the contrast procedure nitroglycerin (NITROLINGUAL) 400 mcg/spray spray one every 5 minutes x3 as needed (Patient taking differently: Dissolve 1 [place] under the tongue every 5 minutes as [...] Never Smokeless tobacco: Never Vaping Use Vaping Use: Never used Substance Use Topics Alcohol use: No Drug use: No ROS Objective Blood pressure 148/77, pulse 62, temperature 36.5 C (97.7 F), resp. rate 18, weight 77.1 kg (170 lb), SpO2 97%. Physical Exam Constitutional: General: She is not in acute distress. Appearance: She is not toxic-appearing or diaphoretic. HENT: Head: Normocephalic and atraumatic. Pulmonary: Effort: Pulmonary effort is normal. No accessory muscle usage or respiratory distress. Skin: Neurological: Mental Status: She is alert and oriented to person, place, and time. ASSESSMENT/PLAN: 1. Intertrigo - ICD9: 695.89, ICD10: L30.4 Keep area clean and covered -use medication as prescribed -follow up if symptoms persist, worsen, change - NYSTATIN 100,000 UNIT/GRAM TOPICAL CREAM - NYSTATIN 100,000 UNIT/GRAM TOPICAL POWDER Siddharth Palm APRN.CROP AND SOIL TECHNICIAN documented in this encounterBarnesville Hospital08-06-2024 NoteHNO ID: [id number] Author: MANUELA THOMAS APRN.CROP AND SOIL TECHNICIAN Service: ? Author Type: Nurse Practitioner Type: Progress Notes Filed: 11/24/2023 16:34 Note Text: Kylie Russo 78 year old female returning for a routine follow-up of carotid disease for which no previous intervention has been performed. Bridger saw Dr. Arredondo in 2021 to establish care with vascular surgery, for evaluation/treatment/surveillance of her carotid disease. She remains asymptomatic, with no s/s of [...] result in stroke. Previous duplex ultrasound findings: 11/11/22 R ICA 20-39%, psv 91 L ICA 60-79%, psv 232 PAST MEDICAL HISTORY No date: Abnormal mammogram, unspecified Comment: left breast 02/11/2015: BPPV (benign paroxysmal positional vertigo) No date: BPV (benign positional vertigo) No date: CAD (coronary artery disease) No date: Carotid stenosis 08/08/2005: CARPAL TUNNEL BILATERRAL No date: Coronary artery disease involving [place] coronary artery Comment: Dr. Pederson follows regularly; S/P PTCA and stenting at [facility], 2000 No date: Coronary atherosclerosis of unspecified type of vessel, [place] or graft No date: Disorder of bone and cartilage, unspecified No date: Diverticulosis of colon (without mention of hemorrhage) 09/28/2019: DKA (diabetic ketoacidoses) No date: Esophagitis No date: External hemorrhoids without mention of complication No date: Insomnia No date: Internal hemorrhoids without mention of complication No date: Mammographic microcalcification No date: Mild intermittent asthma without complication Comment: Adult onset 12/06/2018: 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) No date: Other and unspecified hyperlipidemia No date: Other forms of migraine No date: Other psoriasis No date: Postsurgical percutaneous transluminal coronary angioplasty status No date: Rheumatoid arthritis(714.0) No date: RLS (restless legs syndrome) No date: Stroke (cerebrum) (HCC) Comment: x3 03/01/2012: Thoracic or lumbosacral neuritis or radiculitis, unspecified No date: Type I (juvenile type) diabetes mellitus with neurological manifestations, not stated as 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.61) No date: 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, 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) No date: Unspecified asthma(493.90) No date: Unspecified essential hypertension No date: Unspecified hereditary and idiopathic peripheral neuropathy PAST SURGICAL HISTORY No date: BREAST BIOPSY 02/26/2204: COLONOSCOPY FLX DX W/COLLJ SPEC WHEN PFRMD Comment: Colonoscopy 08/29/15: COLONOSCOPY FLX DX W/COLLJ SPEC WHEN PFRMD Comment: Colonoscopy 11/10/2018: COLONOSCOPY FLX DX W/COLLJ SPEC WHEN PFRMD Comment: Colonoscopy 04/15/2002: EGD 11/10/2018: ESOPHAGOGASTRODUODENOSCOPY TRANSORAL DIAGNOSTIC Comment: EGD 03/2008: EXC BREAST LES PREOP PLMT RAD MARKER OPEN 1 LES No date: OPEN REPAIR OF ROTATOR CUFF CHRONIC Comment: left rotator cuff No date: PAST SURGICAL HISTORY OF Comment: tonsilectomy and adenoidectomy No date: PAST SURGICAL HISTORY OF Comment: right breast lumpectomy No date: PAST SURGICAL HISTORY OF Comment: x 3 1992: PAST SURGICAL HISTORY OF Comment: right thumb trigger finger No date: PAST SURGICAL HISTORY OF Comment: hand surgery No date: PAST SURGICAL HISTORY OF Comment: nose surgery age 17: PAST SURGICAL HISTORY OF Comment: axillary cyst removal 2000: PAST SURGICAL HISTORY OF Comment: heart cath with stent placement No date: PAST SURGICAL HISTORY OF Comment: CARDIAC CAATH 2000, 2001, AND 2004 No date: PREOP PLACEMENT NEEDLE LOC 02/24/08: STEREOTACTIC CORE BIOPSY Comment: LEFT - benign Current Outpatient Medications on [...] or chew. gabapentin (NEURONTIN) 400 mg capsule Robert (more content not included)...[facility]08-06-2024 History of Present illness Narrative* Manuela Thomas, CARLOS EDUARDO.CROP AND SOIL TECHNICIAN - 11/24/2023 4:24 PM EDT Kylie Russo 78 year old female returning for a routine follow-up of carotid disease for which no previous intervention has been performed. Bridger saw Dr. Arredondo in 2021 to establish care with vascular surgery, for evaluation/treatment/surveillance of her carotid disease. She remains asymptomatic, with no s/s of [...] result in stroke. Previous duplex ultrasound findings: 11/11/22 R ICA 20-39%, psv 91 L ICA 60-79%, psv 232 PAST MEDICAL HISTORY No date: Abnormal mammogram, unspecified Comment: left breast 02/11/2015: BPPV (benign paroxysmal positional vertigo) No date: BPV (benign positional vertigo) No date: CAD (coronary artery disease) No date: Carotid stenosis 08/08/2005: CARPAL TUNNEL BILATERRAL No date: Coronary artery disease involving [place] coronary artery Comment: Dr. Pederson follows regularly; S/P PTCA and stenting at [facility], 2000 No date: Coronary atherosclerosis of unspecified type of vessel, [place] or graft No date: Disorder of bone and cartilage, unspecified No date: Diverticulosis of colon (without mention of hemorrhage) 09/28/2019: DKA (diabetic ketoacidoses) No date: Esophagitis No date: External hemorrhoids without mention of complication No date: Insomnia No date: Internal hemorrhoids without mention of complication No date: Mammographic microcalcification No date: Mild intermittent asthma without complication Comment: Adult onset 12/06/2018: Mild nonproliferative diabetic retinopathy of both eyes ([facility]) No date: Other and unspecified hyperlipidemia No date: Other forms of migraine No date: Other psoriasis No date: Postsurgical percutaneous transluminal coronary angioplasty status No date: Rheumatoid arthritis(714.0) No date: RLS (restless legs syndrome) No date: Stroke (cerebrum) ([facility]) Comment: x3 03/01/2012: Thoracic or lumbosacral neuritis or radiculitis, unspecified No date: Type I (juvenile type) diabetes mellitus with neurological manifestations, not stated as 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.61) No date: 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, 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) No date: Unspecified asthma(493.90) No date: Unspecified essential hypertension No date: Unspecified hereditary and idiopathic peripheral neuropathy PAST SURGICAL HISTORY No date: BREAST BIOPSY 02/26/2204: COLONOSCOPY FLX DX W/COLLJ SPEC WHEN PFRMD Comment: Colonoscopy 08/29/15: COLONOSCOPY FLX DX W/COLLJ SPEC WHEN PFRMD Comment: Colonoscopy 11/10/2018: COLONOSCOPY FLX DX W/COLLJ SPEC WHEN PFRMD Comment: Colonoscopy 04/15/2002: EGD 11/10/2018: ESOPHAGOGASTRODUODENOSCOPY TRANSORAL DIAGNOSTIC Comment: EGD 03/2008: EXC BREAST LES PREOP PLMT RAD MARKER OPEN 1 LES No date: OPEN REPAIR OF ROTATOR CUFF CHRONIC Comment: left rotator cuff No date: PAST SURGICAL HISTORY OF Comment: tonsilectomy and adenoidectomy No date: PAST SURGICAL HISTORY OF Comment: right breast lumpectomy No date: PAST SURGICAL HISTORY OF Comment: x 3 1992: PAST SURGICAL HISTORY OF Comment: right thumb trigger finger No date: PAST SURGICAL HISTORY OF Comment: hand surgery No date: PAST SURGICAL HISTORY OF Comment: nose surgery age 17: PAST SURGICAL HISTORY OF Comment: axillary cyst removal 2000: PAST SURGICAL HISTORY OF Comment: heart cath with stent placement No date: PAST SURGICAL HISTORY OF Comment: CARDIAC CAATH 2000, 2001, AND 2004 No date: PREOP PLACEMENT NEEDLE LOC 02/24/08: STEREOTACTIC CORE BIOPSY Comment: LEFT - benign Current Outpatient Medications on [...] (BAQSIMI) 3 mg/actuation nasal spray Use 1 [place] in the nose as needed for low blood sugar. May repeat after 15 minutes using a new device if there is no response. blood sugar diagnostic (CONTOUR TEST STRIPS) test strip Test blood sugar(s) 6 times daily. Dx: Type1 DM - Controlled E10.9 Insulin: Yes urea [...] 46 units every 24 hr for insulin pumpfailure Insulin Syringe-Needle U-100 (BD ULTRAFINE INSULIN) 1 [...] [Oxycodone* Unknown Sulfa (Sulfonamide * Hives blisters VITAL SIGNS: BP 128/70 (BP Site: Left Arm, BP Position: Sitting) Pulse 68 Resp 16 Ht 5' 1.4 (1.56 m) Wt170 lb (77.1 kg) BMI 31.70 kg/m PHYSICAL EXAM: General Appearance: Well appearing, alert, in no acute distress, well-hydrated, well nourished.. Skin: Skin color, texture, turgor normal, no suspicious rashes or lesions. Head: Normocephalic, no masses, lesions, tenderness or abnormalities. Eyes: Anicteric sclera. Extraocular movements are intact. . Ears: External ears normal, hearing is adequate. Neck: Supple, no bruits. Lungs: Breathing is easy and unlabored. Heart: RRR without gallop or rubs. Extremities: No deformities, edema, skin discoloration, clubbing or cyanosis. Good capillary refill. Neurologic: Gait steady with walker. Sensation and strength grossly intact. Current duplex findings: 11/12/23 R ICA 20-39%, psv 95 L ICA 60-79%, psv 212 ASSESSMENT/PLAN: (I65.23) Carotid stenosis, asymptomatic, bilateral (primary encounter diagnosis) Comment: Asymptomatic and stable with no significant progression of stenosis noted in B ICA on current US; Discussed that risks associated with surgery do not yet outweigh benefit, as she remains asymptomatic, so recommend continued surveillance at this time Plan: US CAROTID ARTERIES [facility] in 1 year; Continue asa & statin; Continue to try to stayactive & healthy; Monitor for any s/s of TIA or stroke and call 911 FOLLOW-UP: Can call/MyChart visit with results and recommendations next year, following ultrasound as discussed. Call with any questions or concerns. The patient is currently taking a statin: Yes The patient is currently taking aspirin: Yes I spent 30 minutes in the visit, with more than 50% of the total chqh-lg-gpcm time of the visit in counseling / coordination of care. Manuela Thomas APRN.CROP AND SOIL TECHNICIAN documented in this encounterBarnesville Hospital07-19-2024 History of Present illness Narrative* Eva Nielsen MD - 11/06/2023 11:53 AM EDT [facility] Follow up visit Note History of present illness: This is a 78 year old female with history of type 1 diabetes, complicated by mild nonproliferative retinopathy of bilateral retina, Class I obesity, 3 strokes (2009, 2012), Bilateral carotid artery stenosis, CAD, HLD, HTN, SOLE, GERD, RA. She is accompanied by her today, who is a type II diabetic. She was following Dr. Palm at [facility] in the recent past, last appointment in April 2023. Prior to that, she was following with endocrinology at [facility], last appointment in October 2020 with Princess Lim APRN. CROP AND SOIL TECHNICIAN [place] with me was 09/15/23 Documentation from [...] gastric emptying study following Dr. Dyer at [facility] Exacerbating factors include: obesity Last NEIL/Retina Eval: [...] time 2 hours carbs entered per day 80 47 g Changing pump site every 2 days Changing sensor every 7 days . Symptoms -Polyuria: no -Polydipsia: no -Weight changes: fluctuating Right knee pain due to a fall, taking steroid shots due to pain intermittently . Lifestyle -Exercise: no routine exercise due to fall leading to mobility issues -Diet: reports carb consistent diet Interval history since last visit : She is diagnosed with gastroparesis. She has seen Nutrition services at [facility], and reports that it was not very beneficial, she would liketo see nutrition at [facility] She was referred to dietitian on last visit, and she saw dietitian at [facility] who started her on a gastroparesis nutritional plan On last visit it was also noted that her pump was suspending for 8 hours to 10 hours continuously. She was asked to call [employer] and reports she was told that it is not the problem with her pump. She reports today that she has been trying to follow the dietitians suggestions and the lows have gone down but still continues to have pump suspensions for over 8 hrs like happening in the past In addition to gastroparesis, she having been receiving steroid injections in her joints and back intermittently, last one on 10/27/23, as reported ROS: As per HPI Past Medical History PAST MEDICAL HISTORY Diagnosis Date Abnormal mammogram, unspecified left breast BPPV (benign paroxysmal positional vertigo) 02/11/2015 BPV (benign positional vertigo) CAD (coronary artery disease) Carotid stenosis CARPAL TUNNEL BILATERRAL 08/08/2005 Coronary artery disease involving confederated salish coronary artery Dr. 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 ([facility]) 12/06/2018 Other and unspecified hyperlipidemia Other forms of migraine Other psoriasis Postsurgical percutaneous transluminal coronary angioplasty status Rheumatoid arthritis(714.0) RLS (restless legs syndrome) 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 Thoracic or lumbosacral neuritis or radiculitis, [...] Never Smokeless tobacco: Never Vaping Use Vaping Use: Never used Substance Use Topics Alcohol use: No Drug use: No Allergies ALLERGIES Allergen Reactions Aggrenox [Aspirin-D* MIGRAINES AND [...] [Oxycodone* Unknown Sulfa (Sulfonamide * Hives blisters Current Medications Current Outpatient Medications Medication Sig Dispense Refill metoclopramide HCl (REGLAN) 5 mg tablet Take 1 tablet by mouth every 6 hours for 30 days; administer 30 minutes before a meal. clonazePAM (KLONOPIN) 1 mg tablet Take 1 tablet by mouth at bedtime as needed for up to 90 days. 45tablet 0 Insulin Syringe-Needle U-100 (BD INSULIN SYRINGE ULTRA-FINE) 1 mL 31 gauge x 5/16 Use 4 syringes daily if insulin pump fails 100 Each 1 blood sugar diagnostic (ACCU-CHEK GUIDE TEST STRIPS) test strip Use with blood glucose test upto four times daily 200 Each 1 clopidogrel (PLAVIX) 75 mg tablet Take 1 tablet by mouth once daily. 90 tablet 3 atorvastatin (LIPITOR) 40 mg tablet Take 1 tablet by mouth once daily. 90 tablet 3 insulin lispro (HUMALOG U-100 INSULIN) 100 unit/mL injection as directed in Insulin pump up to 110 units daily. Dx E10.65 10 mL 3 losartan (COZAAR) 100 mg tablet Take 1 tablet by mouth once daily. 90 tablet 1 pramipexole (MIRAPEX) 1 mg tablet Take 2 tablets by mouth daily at bedtime. 180 tablet 1 hydrOXYchloroQUINE (PLAQUENIL) 200 mg tablet Take 1 tablet by mouth two times a day. 180 tablet 1 diclofenac sodium (VOLTAREN ARTHRITIS PAIN TOPICAL) Apply 2 g to affected area as needed (pain). lidocain-me.xpnvffm-vzuy-igorq 0.5-20-0.035-5 % ptmd Apply 1 Each to affected area as needed. traMADol (ULTRAM) 50 mg tablet Take 50 mg by mouth every 6 hours as needed for pain. albuterol HFA (PROVENTIL HFA, VENTOLIN HFA) 90 mcg/actuation inhaler Inhale 2 Puffs as instructed every 4 hours as needed for wheezing/shortness of breath. amLODIPine (NORVASC) 5 mg tablet TAKE 1 TABLET BY MOUTH EVERY DAY 90 tablet 3 WALKER ROLLATOR SEAT WITH 6 WHEELS - RED For ambulation 1 Each 0 diphenhydrAMINE (BENADRYL) 25 mg capsule Please take 2 tablets an hour prior to the contrast procedure 2 capsule 0 nitroglycerin (NITROLINGUAL) 400 mcg/spray spray one every 5 minutes x3 as needed (Patient taking differently: Dissolve 1 [place] under the tongue every 5 minutes as needed for chest pain.) 4.9 g 3 Bacillus coagulans/inulin (PROBIOTIC WITH PREBIOTIC ORAL) Take 1 capsule by mouth once daily. aspirin 81 mg chewable tablet Take 1 tablet by mouth once daily. 30 tablet 11 Cholecalciferol, Vitamin D3, 125 mcg (5,000 unit) cap Take 1 capsule by mouth once daily. 90 capsule 3 multivitamin tablet Take 1 tablet by mouth once daily. 0 acetaminophen (TYLENOL 8 HOUR) 650 mg CR tablet Take 1 tablet by mouth every 8 hours as needed. insulin needles, DISPOSABLE, (PEN NEEDLE) 31 gauge x 5/16 Use upto 4 times daily 100 Each 1 glucagon (BAQSIMI) 3 mg/actuation nasal spray Use 1 [place] in the nose as needed for low blood sugar. May repeat after 15 minutes using a new device if there is no response. 1 Each 2 lansoprazole (PREVACID) 30 mg capsule Take 1 capsule by mouth two times a day. 180 capsule 3 montelukast (SINGULAIR) 10 mg tablet Take 1 tablet by mouth daily at bedtime. 90 tablet 1 magnesium citrate 100 mg cap Take 1 capsule by mouth once daily. traZODone (DESYREL) 50 mg tablet Take 2 tablets by mouth daily at bedtime. 60 tablet 2 vtxzvbvxrlr-nriyfwdwt-tdxhduhi (TRELEGY ELLIPTA) 200-62.5-25 mcg inhalation powder Inhale 1 Puff asinstructed once daily. hydrocortisone 2.5 % cream Apply 1 application to affected area as needed (rash). ketoconazole (NIZORAL) 2 % shampoo Apply 2 mL to affected area once daily as needed for itching/rash. Biotin 1 mg tab Take 1 tablet by mouth once daily. 30 tablet 0 No current facility-administered medications for this visit. Labs Hemoglobin A1C Date Value Ref Range Status 09/01/2023 7.8 (H) 4.3 - 5.6 % Final Comment: [place] Diabetes Association guidelines indicate that patients with [...] mg/dL, High >499 mg/dL, Very high Vitals: 11/06/23 1148 Pulse: 66 Temp: 36.4 C (97.5 F) TempSrc: Temporal Artery SpO2: 95% Weight: 77.1 kg (170 lb) Height: 154.9 cm (5' 1) Physical Exam GENERAL: Well nourished, obese, well hydrated, in no distress and oriented x 3. She is walking withthe help of walker today EYES: no thyroid [...] on 780 G medtronic insulin pump: -A1c 7.8% in 08/2023 -eGFR 91 in 08/2023 Plan: - No changes made to pump settings today - Unsure of the reasons for suspension of pump automatically and continuously for that long while at the max the pump should be working within 2 hrs, unless it suspends again due to hypoglycemia again. I discussed about giving insulin shots if pump malfunctions- discussed basal insulin, and bolus as well as correction scale to be taken in pump failure - she was advised to see diabetes eduction team - lows on pump data less than 1%, 88% in range She has seen dietitian at [facility] and was given gastroparesis associated dietary changes - she declined refills for pump supplies Again advised to calculate the carbs before each meal and take adequate insulin dose accordingly- can take half dose at the start of meal and the rest after completing the meal, especially if she hasgood appetite and intends to eat the whole meal. If appetite is low, advised to eat first and then take insulin according to the amount of carbs consumed. Discussed again to take correction dose of insulin for Blood glucose above 180 mg/dl- 1 unit for every 40 mg/dl above 180mg/dl -Call if blood sugar consistently <80 mg/dl or >200 mg/dl - refills for test strips given for accu-check guide as requested -Lifestyle modifications with diet and activity as tolerated have been discussed with the patient --Will refer patient to nutritional counseling on next visit --Baqsimi sent to pharmacy on previous visit- [...] discussed as above RTC in 3 months. I spent a total of 40 minutes on the date of the service which included preparing to see the patient, bagc-fn-lbge patient care, completing clinical documentation, obtaining and/or reviewing separately obtained history, performing a medically appropriate examination, counseling and educating the pat ient/family/caregiver, ordering medications, tests, or procedures, and independently interpreting results (not separately reported). Eva Nielsen MD Endocrinology Associate Staff [facility] [place] [phone] documented in this encounterBarnesville Hospital07-19-2024 Telephone encounter Note * Telephone Encounter - Diamond Rushing MA - 11/06/2023 10:02 AM EDT Left voice mail, my chart message has also been sent. Patient asked to arrive at 11 am for her appointment on 11/06/23. Diamond Rushing MA [facility]07-19-2024 Miscellaneous Notes* Telephone Encounter - Diamond Rushing MA - 11/06/2023 10:02 AM EDT Left voice mail, my chart message has also been sent. Patient asked to arrive at 11 am for her appointment on 11/06/23. Diamond Rushing MA documented in this encounterBarnesville Hospital07-12-2024 Note* Letter - Coordinator, Mammography - 10/30/2023 9:55 AM EDT October 30, 2023 PID: [id number] Kylie Russo [address] [place] [address] Dear Ms. Russo, We are pleased to inform you that the results of your recent breast imaging exam on 10/29/2023 are normal. Early detection of cancer is very important. We also understand recommendations regarding breast cancer screening are controversial. Please discuss with your primary care provider which strategy is best for you and whether a mammogram is right for you. Your imaging studies and report will be kept on file at [facility] as part of your permanent medical record and are available for your continuing care. Thank you for allowing us to help in meeting your health care needs. Sincerely, Dr. Lam Interpreting Radiologist [facility] (Normal over 40) [facility]07-12-2024 Miscellaneous Notes* Letter - Coordinator, Mammography - 10/30/2023 9:55 AM EDT October 30, 2023 PID: [id number] Kylie Russo [address] [place] [address] Dear Ms. Russo, We are pleased to inform you that the results of your recent breast imaging exam on 10/29/2023 are normal. Early detection of cancer is very important. We also understand recommendations regarding breast cancer screening are controversial. Please discuss with your primary care provider which strategy is best for you and whether a mammogram is right for you. Your imaging studies and report will be kept on file at [facility] as part of your permanent medical record and are available for your continuing care. Thank you for allowing us to help in meeting your health care needs. Sincerely, Dr. Lam Interpreting Radiologist [facility] (Normal over 40) documented in this encounterBarnesville Hospital07-11-2024 History of Present illness Narrative* Suzanne Lozano Mammo Tech - 10/29/2023 7:30 AM EDT Radiology Service Progress Note PATIENT NAME: Kylie Russo DATE OF SERVICE: October 29, 2023 TIME: 7:28 AM PATIENT IDENTITY VERIFICATION COMPLETED USING TWO (2) IDENTIFIERS: Name and Date of confirmedby patient verbally. FALL SCREENING: Has the patient had 2 falls in the last year or 1 fall with injury or currently using an Ambulatory Assistive Device (Walker, Cane, Wheelchair, Crutches, etc.)? Yes, Patient High Riskfor Falls Patient uses a walker/had stroke What interventions were put in place to prevent falls during this visit? Increased Observations by Caregivers PATIENT GENDER DATA: Female. status: : No status: NO. PATIENT RELEVANT IMPLANT DATA REVIEWED: Not Applicable PATIENT PRESENTS WITH AN IMPLANTABLE OR ATTACHED RETAIL INTERIOR DESIGNER: No RADIOLOGY DEPARTMENT: Mammography PERIPHERAL IV DATA: Not applicable SIGNED BY: Corky Mack October 29, 2023 7:28 AM documented in this encounterBarnesville Hospital07-10-2024 Telephone encounter Note * Telephone Encounter - Hernesto Harvey APRN.CNP - 10/28/2023 1:47 PM EDT PDMP website checked and validated. All prescriptions have been APPROPRIATELY filled. No suspiciousactivity was identified. 10/28/2023 by Hernesto Harvey APRN.CNP [facility]07-10-2024 Miscellaneous Notes* Telephone Encounter - Hernesto Harvey APRN.CNP - 10/28/2023 1:47 PM EDT PDMP website checked and validated. All prescriptions have been APPROPRIATELY filled. No suspiciousactivity was identified. 10/28/2023 by Hernesto Harvey APRN.CNP * Telephone Encounter - Rylee Justin LPN - 10/26/2023 10:58 AM EDT Prescription Refill Information The patient has been identified by name and date of : Yes Caregiver verified no other encounters exist for this prescription request: Yes Caregiver confirmed with patient/requestor that no other refills are due, in the near future, with this provider at this time: Yes The last office visit in the department: 09/19/23 Does the patient have a future office visit with this provider/department: Yes Requested Prescriptions Pending Prescriptions Disp Refills clonazePAM (KLONOPIN) 1 mg tablet 45 tablet 0 Sig: Take 1 tablet by mouth at bedtime as needed for up to 90 days. Rylee Justin LPN October 26, 2023 10:59 AM * Telephone Encounter - Diamond eVrma - 10/26/2023 10:31 AM EDT Prescription Refill Information The patient has been identified by name and date of : Yes Caregiver verified no other encounters exist for this prescription request: Yes Caregiver confirmed with patient/requestor that no other refills are due, in the near future, with this provider at this time: Yes The last office visit in the department: 08-19-23 Does the patient have a future office visit with this provider/department: Yes Requested Prescriptions Pending Prescriptions Disp Refills clonazePAM (KLONOPIN) 1 mg tablet 45 tablet 0 Sig: Take 1 tablet by mouth at bedtime as needed for up to 90 days. Diamond Jasso October 26, 2023 10:32 AM documented in this encounterBarnesville Hospital07-08-2024 Telephone encounter Note * Telephone Encounter - Tiffanie Hicks Mammo Tech - 10/26/2023 1:13 PM EDT Could you release the mammogram order? Pt has appt 10/18. Thanks a million [facility]07-08-2024 Miscellaneous Notes* Telephone Encounter - Tiffanie Hicks Mammo Tech - 10/26/2023 1:13 PM EDT Could you release the mammogram order? Pt has appt 10/18. Thanks a million documented in this encounterBarnesville Hospital07-08-2024 Telephone encounter Note * Telephone Encounter - Rylee Justin LPN - 10/26/2023 10:58 AM EDT Prescription Refill Information The patient has been identified by name and date of : Yes Caregiver verified no other encounters exist for this prescription request: Yes Caregiver confirmed with patient/requestor that no other refills are due, in the near future, with this provider at this time: Yes The last office visit in the department: 09/19/23 Does the patient have a future office visit with this provider/department: Yes Requested Prescriptions Pending Prescriptions Disp Refills clonazePAM (KLONOPIN) 1 mg tablet 45 tablet 0 Sig: Take 1 tablet by mouth at bedtime as needed for up to 90 days. Rylee Justin LPN October 26, 2023 10:59 AM [facility]07-08-2024 Telephone encounter Note* Telephone Encounter - Diamond Verma - 10/26/2023 10:31 AM EDT Prescription Refill Information The patient has been identified by name and date of : Yes Caregiver verified no other encounters exist for this prescription request: Yes Caregiver confirmed with patient/requestor that no other refills are due, in the near future, with this provider at this time: Yes The last office visit in the department: 08-19-23 Does the patient have a future office visit with this provider/department: Yes Requested Prescriptions Pending Prescriptions Disp Refills clonazePAM (KLONOPIN) 1 mg tablet 45 tablet 0 Sig: Take 1 tablet by mouth at bedtime as needed for up to 90 days. Diamond Jasso October 26, 2023 10:32 AM [facility]07-08-2024 Telephone encounter Note* Telephone Encounter - Magalys Mera RN - 10/26/2023 10:11 AM EDT Pt preferred to see [facility] Diabetes Education/Nutrition Services. Information was provided to Pt on 09/17/2023. Magalys Mera RN October 26, 2023 10:12 AM [facility]07-08-2024 Miscellaneous Notes* Telephone Encounter - Magalys Mera RN - 10/26/2023 10:11 AM EDT Pt preferred to see [facility] Diabetes Education/Nutrition Services. Information was provided to Pt on 09/17/2023. Magalys Mera RN October 26, 2023 10:12 AM * Telephone Encounter - Alexandria Garcia - 10/26/2023 8:50 AM EDT Pt was referred to Akil rivera for endocrinology dietitian visit . There is no schedule release for her for [place] or [place]. [employer] is looking into it. Thank you documented in this encounterBarnesville Hospital07-08-2024 Telephone encounter Note * Telephone Encounter - Alexandria Garcia - 10/26/2023 8:50 AM EDT Pt was referred to Akil rivera for endocrinology dietitian visit . There is no schedule release for her for [place] or [place] [employer]. [employer] is looking into it. Thank you [facility]06-25-2024 Telephone encounter Note* Telephone Encounter - Magalys Mera RN - 10/13/2023 3:59 PM EDT Most recent OV chart notes and lab results faxed to [facility] Attn: Julio Cesar Cox per their request. Faxconfirmation received. Magalys Mera RN October 13, 2023 4:01 PM [facility]06-25-2024 Miscellaneous Notes* Telephone Encounter - Magalys Mera RN - 10/13/2023 3:59 PM EDT Most recent OV chart notes and lab results faxed to [facility] Attn: Julio Cesar Cox per their request. Faxconfirmation received. Magalys Mera RN October 13, 2023 4:01 PM documented in this encounterBarnesville Hospital06-17-2024 Telephone encounter Note * Telephone Encounter - Diamond Rushing MA - 10/05/2023 10:13 AM EDT Fax request received for last office visit notes for insulin. Notes printed,signed and faxed back. Confirmation received Diamond Rushing MA [facility]06-17-2024 Miscellaneous Notes* Telephone Encounter - Diamond Rushing MA - 10/05/2023 10:13 AM EDT Fax request received for last office visit notes for insulin. Notes printed,signed and faxed back. Confirmation received Diamond Rushing MA documented in this encounterBarnesville Hospital06-11-2024 Telephone encounter Note * Telephone Encounter - Kylie Palomino LPN - 09/29/2023 11:16 AM EDT [facility] calling. Patient is needing 31G 5/16 1ML synringes for pump failure. Per records, on 09/15 pen needles were submitted to pharmacy, but patient needs to be able to draw out of vials and administer. Asking if new RX can be submitted? Kylie Palomino LPN [facility]06-11-2024 Miscellaneous Notes* Telephone Encounter - Kylie Palomino LPN - 09/29/2023 11:16 AM EDT [facility] calling. Patient is needing 31G 5/16 1ML synringes for pump failure. Per records, on 09/15 pen needles were submitted to pharmacy, but patient needs to be able to draw out of vials and administer. Asking if new RX can be submitted? Kylie Palomino LPN documented in this encounterBarnesville Hospital06-04-2024 Telephone encounter Note * Telephone Encounter - Magalys Mera RN - 09/22/2023 1:27 PM EDT Signed Rx request for diabetic testing supplies faxed back to [facility]. Fax confirmation received. Magalys Mera RN September 22, 2023 1:32 PM [facility]06-04-2024 Miscellaneous Notes* Telephone Encounter - Magalys Mera RN - 09/22/2023 1:27 PM EDT Signed Rx request for diabetic testing supplies faxed back to [facility]. Fax confirmation received. Magalys Mera RN September 22, 2023 1:32 PM documented in this encounterBarnesville Hospital05-30-2024 Telephone encounter Note * Telephone Encounter - Magalys Mera RN - 09/17/2023 1:46 PM EDT Outside order for nutrition services/diabetes education from Dr. Nielsen faxed to [facility] per Pt preference. Pt notified via [employer] message. Fax confirmation received. Magalys Mera RN September 17, 2023 1:47 PM [facility]05-30-2024 Miscellaneous Notes* Telephone Encounter - Magalys Mera RN - 09/17/2023 1:46 PM EDT Outside order for nutrition services/diabetes education from Dr. Nielsen faxed to [facility] per Pt preference. Pt notified via [employer] message. Fax confirmation received. Magalys Mera RN September 17, 2023 1:47 PM documented in this encounterBarnesville Hospital05-29-2024 Telephone encounter Note * Telephone Encounter - Diamond Valdovinos - 09/16/2023 10:55 AM EDT Pt called requesting that insulin needles prescription be sent to [facility] pharmacy. [facility] Work Phone: 1(527) 618-630305-29-2024 Miscellaneous Notes* Telephone Encounter - Diamond Valdovinos - 09/16/2023 10:55 AM EDT Pt called requesting that insulin needles prescription be sent to [facility] pharmacy. documented in this encounterBarnesville Hospital05-28-2024 Instructions* Patient Instructions* Eva Nielsen MD - 09/15/2023 5:27 PM EDT Please increase the target blood glucose to 120 mg/dl Reduce basal rate from 7.30 pm to 12 am from 2.55 units/hr to 2.50 units/hr documented in this encounterBarnesville Hospital05-28-2024 History of Present illness Narrative* Magalys Mera RN - 09/15/2023 5:14 PM EDT Images from the original note were not included. * Eva Nielsen MD - 09/15/2023 4:52 PM EDT [facility] Follow up visit Note History of present illness: This is a 77 year old female with history of type 1 diabetes, complicated by mild nonproliferative retinopathy of bilateral retina, Class I obesity, 3 strokes (2009, 2012), Bilateral carotid artery stenosis, CAD, HLD, HTN, SOLE, GERD, RA. She is accompanied by her today, who is a type II diabetic. She was following Dr. Palm at [facility] in the recent past, last appointment in April 2023. Prior to that, she was following with endocrinology at [facility], last appointment in October 2020 with Princess Lim APRN. [employer] with me was 06/12/23 Documentation from previous note of previous visit [...] , CVA, gastroparesis on gastric emptying study (reported by patient) Exacerbating factors include: obesity Last NEIL/Retina Eval: [...] time 2 hours carbs entered per day 80 47 g Pump info: 08/17/23-09/15/23 Site change every 2.8 days. avg glucose 169+/-58 mg/dL CGM interpretation In target range 80%, lows 1%, high 16%, very high 3% She has no hypoglycemia awareness until 50 mg/dl . Symptoms -Polyuria: no -Polydipsia: no -Weight changes: fluctuating Right knee pain due to a fall, taking steroid shots due to pain intermittently . Lifestyle -Exercise: no routine exercise due to fall leading to mobility issues -Diet: reports carb consistent diet Interval history since last visit : She is diagnosed with gastroparesis. Reports worried about lows Reports she has had many episodes where the pump suspends by itself, even when the BG is not low and when it resumes, the BG is within normal sometimes Due to alarms during suspension, he reports she is having hard time sleeping She has seen Nutrition services at [facility], and reports that it was not very beneficial, she would liketo see nutrition at [facility] ROS: As per HPI Past Medical History PAST MEDICAL HISTORY Diagnosis Date Abnormal mammogram, unspecified left breast BPPV (benign paroxysmal positional vertigo) 02/11/2015 BPV (benign positional vertigo) CAD (coronary artery disease) Carotid stenosis CARPAL TUNNEL BILATERRAL 08/08/2005 Coronary artery disease involving [place] coronary artery Dr. 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 ([facility]) 12/06/2018 Other and unspecified hyperlipidemia Other forms of migraine Other psoriasis Postsurgical percutaneous transluminal coronary angioplasty status Rheumatoid arthritis(714.0) RLS (restless legs syndrome) 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 Thoracic or lumbosacral neuritis or radiculitis, [...] Never Smokeless tobacco: Never Vaping Use Vaping Use: Never used Substance Use Topics Alcohol use: No Drug use: No Allergies ALLERGIES Allergen Reactions Aggrenox [Aspirin-D* MIGRAINES AND [...] [Oxycodone* Unknown Sulfa (Sulfonamide * Hives blisters Current Medications Current Outpatient Medications Medication Sig Dispense Refill lansoprazole (PREVACID) 30 mg capsule Take 1 capsule by mouth two times a day. 180 capsule 3 clopidogrel (PLAVIX) 75 mg tablet Take 1 tablet by mouth once daily. 90 tablet 3 atorvastatin (LIPITOR) 40 mg tablet Take 1 tablet by mouth once daily. 90 tablet 3 insulin lispro (HUMALOG U-100 INSULIN) 100 unit/mL injection as directed in Insulin pump up to 110 units daily. Dx E10.65 10 mL 3 losartan (COZAAR) 100 mg tablet Take 1 tablet by mouth once daily. 90 tablet 1 pramipexole (MIRAPEX) 1 mg tablet Take 2 tablets by mouth daily at bedtime. 180 tablet 1 montelukast (SINGULAIR) 10 mg tablet Take 1 tablet by mouth daily at bedtime. 90 tablet 1 hydrOXYchloroQUINE (PLAQUENIL) 200 mg tablet Take 1 tablet by mouth two times a day. 180 tablet 1 clonazePAM (KLONOPIN) 1 mg tablet Take 1 tablet by mouth at bedtime as needed for up to 90 days. 45tablet 0 diclofenac sodium (VOLTAREN ARTHRITIS PAIN TOPICAL) Apply 2 g to affected area as needed (pain). lidocain-me.bxahcea-ztmi-dojmm 0.5-20-0.035-5 % ptmd Apply 1 Each to affected area as needed. traMADol (ULTRAM) 50 mg tablet Take 50 mg by mouth every 6 hours as needed for pain. albuterol HFA (PROVENTIL HFA, VENTOLIN HFA) 90 mcg/actuation inhaler Inhale 2 Puffs as instructed every 4 hours as needed for wheezing/shortness of breath. magnesium citrate 100 mg cap Take 1 capsule by mouth once daily. traZODone (DESYREL) 50 mg tablet Take 2 tablets by mouth daily at bedtime. 60 tablet 2 jdekxfmdrik-kgnafvwbi-csqfdujt (TRELEGY ELLIPTA) 200-62.5-25 mcg inhalation powder Inhale 1 Puff asinstructed once daily. amLODIPine (NORVASC) 5 mg tablet TAKE 1 TABLET BY MOUTH EVERY DAY 90 tablet 3 WALKER ROLLATOR SEAT WITH 6 WHEELS - RED For ambulation 1 Each 0 diphenhydrAMINE (BENADRYL) 25 mg capsule Please take 2 tablets an hour prior to the contrast procedure 2 capsule 0 nitroglycerin (NITROLINGUAL) 400 mcg/spray spray one every 5 minutes x3 as needed (Patient taking differently: Dissolve 1 [place] under the tongue every 5 minutes as needed for chest pain.) 4.9 g 3 Bacillus coagulans/inulin (PROBIOTIC WITH PREBIOTIC ORAL) Take 1 capsule by mouth once daily. hydrocortisone 2.5 % cream Apply 1 application to affected area as needed (rash). ketoconazole (NIZORAL) 2 % shampoo Apply 2 mL to affected area once daily as needed for itching/rash. aspirin 81 mg chewable tablet Take 1 [...] (H) 4.3 - 5.6 % Final Comment: Citizen Of [place] Diabetes Association guidelines indicate that patients with [...] mg/dL, High >499 mg/dL, Very high Vitals: 09/15/23 1647 BP: 128/64 BP Site: Right Arm BP Position: Sitting BP Cuff Size: Regular Adult Pulse: 61 Resp: 19 SpO2: 99% Weight: 80.3 kg (177 lb) Height: 154.9 cm (5' 1) Physical Exam GENERAL: Well nourished, obese, well hydrated, in no distress and oriented x 3. In wheel chair, examination was limited EYES: no thyroid eye signs, EOMI NECK: , no tenderness and adenopathy THYROID: Non-tender to palpable, no evidence of goiter, no nodules palpable LUNGS: Unlabored on room air HEART: regular rate and rhythm Abdomen: pump sites without lipodystrophy NEURO: normal strength, no tremor SKIN: facial hair noted OTHER: Acanthosis None Assessment and Plan This is a 77-year-old female with past medical history of type 1 diabetes mellitus on Medtronic 780G pump with guardian sensor, retinopathy, peripheral neuropathy and cardiovascular disease (CAD s/p PTCA) , hypertension, CVA, gastroparesis presenting for evaluation and treatment. She also has a history of rheumatoid arthritis Type 1 diabetes with NPDR, neuropathy, gastroparesis on 780 G medtronic insulin pump: -A1c 7.8% in 08/2023 -eGFR 91 in 08/2023 Plan: -I recommended her to change target BG to 120 mg/dl - I also recommended to change the basal rate from 7.30 pm to 12 am to 2.50 from 2.55 units/hr - I again advised to take insulin after eating due to gastroparesis - The pump suspending with no hypoglycemia needs to be checked. I recommended her to [facility] [employer], due to the fact that she is having suspension issues every day, while one day was for >8 hrs, which does not appear to be due to low BG. Pump data shows 1% low BG, while 80% in range She would like to see nutrition at [facility], and requests referral to be placed accordingly Again advised to calculate the carbs before each meal and take adequate insulin dose accordingly- can take half dose at the start of meal and the rest after completing the meal, especially if she hasgood appetite and intends to eat the whole meal. If appetite is low, advised to eat first and then take insulin according to the amount of carbs consumed. Discussed again to take correction dose of insulin for Blood glucose above 180 mg/dl- 1 unit for every 40 mg/dl above 180mg/dl -Call if blood sugar consistently <80 mg/dl or >200 mg/dl - refills for test strips given for accu-check guide as requested -Lifestyle modifications with diet and activity as tolerated have been discussed with the patient --Will refer patient to nutritional counseling on next visit --Carlai sent to pharmacy # Hypertension -Today BP 128/64 -Currently antihypertensive regimen: Amlodipine 5 mg once daily # Extensive cardiovascular history, including CAD and CVA -On Lipitor 40 mg once daily Lipid panel in 08/2023 revealing total cholesterol 122 mg/dL, LDL 49 mg/dL, triglycerides 62 mg/dL #Obesity Class II with serious comobidity -Lifestyle modifications and diabetic control discussed as above RTC in 4 weeks. Within 4 weeks, she is requested to call medtr[employer] and see dietitian/nutrition at [facility] I spent a total of 56 minutes on the date of the service which included preparing to see the patient, iaku-aj-lzct patient care, completing clinical documentation, obtaining and/or reviewing separately obtained history, performing a medically appropriate examination, counseling and educating the pat ient/family/caregiver, ordering medications, tests, or procedures, and independently interpreting results (not separately reported). Eva Nielsen MD Endocrinology Associate Staff [facility] [place] [phone] documented in this encounterBarnesville Hospital05-20-[facility]24 Instructions* Patient Instructions* Radha Story RD - 09/07/2023 2:26 PM EDT 1.. Aim for frequent small meals, have liquids at the start of the day, may be able to transition to regular soft foods and the day progress. Try a Glucerna or sugar free carnation breakfast essential shake for breakfast; lunch: smooth soup, blended if needed, add cottage cheese for protein; midafternoon snacks: sugar free pudding or triple zero [place]og[place]ese yogurt, dinner soft foods,.low fat . Try delayed half insulin delivery for bolus in meals 2. Follow low fiber, low residue diet 3. Choose lean low fat, soft proteins 4.avoid high fiber fruits and vegetable, skins, etc per handout 5. If symptoms worse, liquids may be better tolerared, may Tolerate solid foods later in the day 6. Still aim for 1-2 carb choices, 15 30 grams carb per meal as able Beverages calorie free and sugar free documented in this encounterBarnesville Hospital05-20-2024 History of Present illness Narrative* Radha Story RD - 09/07/2023 1:45 PM EDT Nutritional Therapy Re-Assessment Nutrition Diagnosis: Behavioral-Environmental: Food and nutrition related knowledge deficit, related to, lack of prior exposure to information , as evidenced by change in existing diagnosis or condition RECOMMENDED MALNUTRITION DIAGNOSIS: NO MALNUTRITION IDENTIFIED NUTRITION CARE PLAN: Nutrition Intervention 09/07/2023: comprehensive nutrition educaion 1.. Aim for frequent small meals, have liquids at the start of the day, may be able to transition to regular soft foods and the day progress. Try a Glucerna or sugar free carnation breakfast essential shake for breakfast; lunch: smooth soup, blended if needed, add cottage cheese for protein; midafternoon snacks: sugar free pudding or triple zero [place]ese yogurt, dinner soft foods,.low fat . Try delayed half insulin delivery for bolus in meals 2. Follow low fiber, low residue diet 3. Choose lean low fat, soft proteins 4.avoid high fiber fruits and vegetable, skins, etc per handout 5. If symptoms worse, liquids may be better tolerared, may Tolerate solid foods later in the day 6. Still aim for 1-2 carb choices, 15 30 grams carb per meal as able Beverages calorie free and sugar free Nutrition Monitoring & Evaluation: weight loss, blood sugars in target range, adherence to recommendations Need for Follow up: 4-6 weeks PROGRESS: Interval History: following as relates to diabetes, type 1, blood sugars have been fluctuating . Has a diet from [facility] and comes with questions. Plan provided by included high sugar foods and pateint concerned. Nutrition Intervention 08/10/23 1. Follow a consistent carbohydrate controlled diet 2. Consistent carbohydrate intake of 2 carbs per meal or 30 grams and 1 carb per evening snack or 15 grams. 3 Consume whole grains (whole wheat, oatmeal, bran flakes, popcorn) 4 Consume fresh or frozen fruits and vegetables. 5 Use lean meats (poultry, fish, lean beef or pork). 6 Use calorie-free or sugar-free beverages. 7 Use healthy fats: Sibley oil, canola oil, walnuts, ground flaxseed or flaxseed oil, almonds, sunflower/pumpkin seeds, butter spray, margarine with no trans fatty acids, cooking spray. 8 Keep a food journal week to monitor food choices and diet plan adherence. 9 Increase physical activity - Minimum of 30 minutes per day for 5-6 times per week. 10. Weigh and measure your serving sizes until you are comfortable with visibly estimating accurateportion sizes. Fasting blood sugar goals less than 120/130 and two hour post prandial less than 160/180 grams. 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 Resting Metabolic Rate: 1246 Malnutrition Screening Significant unintentional weight loss? No Eating less than 75% of usual intake for more than 2 weeks? No Potential Signs of Inflammation: no identifiable sources Nutritional status: Education Materials Provided: Diet for Gastroparesis READINESS TO LEARN Cognitive ability: Alert and oriented Motivation to learn: Interested Family support: High - Very involved in pt care Instruction provided to: Patient and family member Patient learns best by: Individual Instruction Factors affecting learning: None Physical limitations affecting learning: None Likelihood of Adherence: High Referred/Supervised by: Rukhsana DORADO Billing Type: Re-assess/15 min 3 units SIGNATURE: Radha Story RD PATIENT NAME: Kylie Russo DATE: September 07, 2023 TIME: 1:49 PM documented in this encounterBarnesville Hospital05-10-2024 Telephone encounter Note * Telephone Encounter - Юлия Bernal - 08/28/2023 12:24 PM EDT Patient called wanting to speak with the practitioner about a new diet that she was put on by her GI for gastroparesis. There are three steps to the new regiment: Liquid diet (1/2 cup gatorade, hayder olayinka, sprite)+ six saltine crackers daily for 1 week Introduce bullion/broth for 1 week Introduce peanut butter and eggs week She is concerned this diet will affect her insulin regiment. [facility]05-10-[facility] Miscellaneous Notes* Telephone Encounter - Юлия Bernal - 08/28/2023 12:24 PM EDT Patient called wanting to speak with the practitioner about a new diet that she was put on by her GI for gastroparesis. There are three steps to the new regiment: Liquid diet (1/2 cup gatorade, hayder olayinka, sprite)+ six saltine crackers daily for 1 week Introduce bullion/broth for 1 week Introduce peanut butter and eggs week She is concerned this diet will affect her insulin regiment. documented in this encounterBarnesville Hospital05-07-2024 Evaluation + Plan note* Assessment & Plan Note - Ivan Quan MD - 08/25/2023 10:41 AM EDT Associated Problem(s): Pulmonary fibrosis - had CT Chest CTPE (michael Freeman) on 08/06/22 c/o [facility] done at a [...] for interstitial lung disease. 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 1.5 cm calcified lesion in the spleen. - 12/04/2022 CT Chest w/o contrast reviewed: bilateral peripheral, subpleural fibrosis w/o definite honeycombing or lower lobe predominance; minimal GGOs. - incidental finding coronary artery calcifications related to age, cholesterol atherosclerosis: routine ffup w/ PCP. --- ffup CT Chest 6 mos to monitor; 2/17/24 - 12/04/2022 PFT: - Spirometry - NORMAL, [...] SSA, SSB, SCL70, CCP, RF, ANCAs. MPO, HI# - Negative. - 12/04/2022 LABS: CK 64 slightly increased only. - 12/04/2022 LABS: CMP satisfactory (except glucose 262 RBS) - 12/04/2022 LABS: ESR 44 mildly increased, nonspecific. CRP Normal. - 08/14/2023 PFT: - Spirometry - NORMAL, FEV1/FVC 83%, FEV1 2.04L 105% predicted, FVC 2.45L 94% predicted - Significant increase/response to bronchodilator: NO response during this testing (this does not preclude clinical benefit from bronchodilators). - Lung Volume - MILD RESTRICTION (probably extraparenchymal cause; e.g., body habitus), w/ MILDLY REDUCED TLC 3.40L 75% predicted, RV 0.90L 47% predicted. - Diffusing Capacity: MILDLY REDUCED DLCO 71% predicted, DL/VA 112% (which normalizes when adjustedfor lung volume, suggesting probably extraparenchymal cause). - 08/14/2023 CT chest without contrast reviewed: No acute lung findings. 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 - incidental findings: old, known scarring of heart aortic valve and coronary arteries related to age, cholesterol or atherosclerosis: routine follow-up w/ PCP, health and wellness coach --- follow-up CT Chest 6 months; 02/13/24 - may have had Acute Pneumonitis w/ [...] further evaluation, management pending results, clinical course. [facility] Miscellaneous Notes* Assessment & Plan Note - Ivan Quan MD - 08/25/2023 10:41 AM EDTAssociated Problem(s): Pulmonary fibrosis - had CT Chest [...] for interstitial lung disease. 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 1.5 cm calcified [...] borderline, slightly increased; non-specific. - 12/04/2022 LABS: SUIS, SSA, SSB, SCL70, CCP, RF, ANCAs. MPO, HI# - Negative. - 12/04/2022 LABS: CK 64 slightly increased only. - 12/04/2022 LABS: CMP satisfactory (except glucose 262 RBS) - 12/04/2022 LABS: ESR 44 mildly increased, nonspecific. CRP Normal. - 08/14/2023 PFT: - Spirometry - NORMAL, FEV1/FVC 83%, FEV1 2.04L 105% predicted, FVC 2.45L 94% predicted - Significant increase/response to bronchodilator: NO response during this testing (this does not preclude clinical benefit from bronchodilators). - Lung Volume - MILD RESTRICTION (probably extraparenchymal cause; e.g., body habitus), w/ MILDLY REDUCED TLC 3.40L 75% predicted, RV 0.90L 47% predicted. - Diffusing Capacity: MILDLY REDUCED DLCO 71% predicted, DL/VA 112% (which normalizes when adjustedfor lung volume, suggesting probably extraparenchymal cause). - 08/14/2023 CT chest without contrast reviewed: No acute lung findings. 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 - incidental findings: old, known scarring of heart aortic valve and coronary arteries related to age, cholesterol or atherosclerosis: routine follow-up w/ PCP, health and wellness coach --- follow-up CT Chest 6 months; 02/13/24 - may have had Acute Pneumonitis w/ [...] further evaluation, management pending results, clinical course. * Assessment & Plan Note - Ivan Quan MD - 08/25/2023 10:40 AM EDT Associated Problem(s): SOLE on CPAP Had sleep study and given CPAP yrs - unable to use, tolerate; also given O2 HS subseq. * Assessment & Plan Note - Ivan Quan MD - 08/25/2023 10:39 AM EDT Associated Problem(s): Asthma - Nonsmoker; Hx of Asthma was on albuterol nebs prev. - have element of mild RAD, Asthma - 08/14/2023 PFT: - Spirometry - NORMAL, FEV1/FVC 83%, FEV1 2.04L 105% predicted, FVC 2.45L 94% predicted - Significant increase/response to bronchodilator: NO response during this testing (this does not preclude clinical benefit from bronchodilators). - Lung Volume - MILD RESTRICTION (probably extraparenchymal cause; e.g., body habitus), w/ MILDLY REDUCED TLC 3.40L 75% predicted, RV 0.90L 47% predicted. - Diffusing Capacity: MILDLY REDUCED DLCO 71% predicted, DL/VA 112% (which normalizes when adjustedfor lung volume, suggesting probably extraparenchymal cause). Results do not exclude clinical diagnosis of asthma, reactive airway disease. - 12/04/2022 PFT: - Spirometry - NORMAL, [...] triple tx Trelegy or other inhaler regimen, iffeasible; cont. albuterol as needed; use spacer - 01/08/23 try Trelegy, if feasible, or other txs, ICS/LABA; cont albuterol prn. - 08/25/23 not needing/using inhalers reg.; cont albuterol prn; restart maint inhalers, if needed - may also use duonebs; budesonide+formoterol nebs [...] - Influenza, pneumococcal, COVID19 vaccines recommended, updated documented in this encounterOhio[facility] Evaluation + Plan note * Assessment & Plan Note - Ivan Quan MD - 08/25/2023 10:40 AM EDT Associated Problem(s): SOLE on CPAP Had sleep study and given CPAP yrs - unable to use, tolerate; also given O2 HS subseq. [facility]05-07-[facility] History of Present illness Narrative* Savanna Brielle - 08/25/2023 10:40 AM EDT Currently smoking or Hx of smoking -NO Oxygen use __ NO __ patient is benefiting from oxygen use. Do you have a CPAP- NO DME company- NA Most recent CT- 08/14/23 Most recent PFT- 08/14/23 Symptoms include: Increase in shortness of breath- NO Dyspnea upon exertion- YES Dyspnea at rest- NO Cough- productive- NO Have you had the Covid 19 vaccine- YES Do you need a Medication refill? NA Pt presents for review of Asthma Maintenance medication- NO Rescue medication- NA Patient presents for 6 Month follow up and a review of CT PFT 6MWT * Ivan Quan MD - 08/25/2023 10:40 AM EDT Patient is a 78 y.o. female who came to be evaluated and managed for poss ILD NSIP, Asthma . ICD-10-CM 1. Pulmonary fibrosis J84.10 EXERCISE-6 MIN. WALK PFT COMPLETE 2. Uncomplicated asthma, unspecified asthma severity, unspecified whether persistent J45.909 Albuterol 108 (90 Base) MCG/ACT Aero Soln inhaler 3. SOLE on CPAP G47.33 Problem List Items Addressed This Visit Asthma - Nonsmoker; Hx of Asthma was on albuterol nebs prev. - have element of mild RAD, Asthma - 08/14/2023 PFT: - Spirometry - NORMAL, FEV1/FVC 83%, FEV1 2.04L 105% predicted, FVC 2.45L 94% predicted - Significant increase/response to bronchodilator: NO response during this testing (this does not preclude clinical benefit from bronchodilators). - Lung Volume - MILD RESTRICTION (probably extraparenchymal cause; e.g., body habitus), w/ MILDLY REDUCED TLC 3.40L 75% predicted, RV 0.90L 47% predicted. - Diffusing Capacity: MILDLY REDUCED DLCO 71% predicted, DL/VA 112% (which normalizes when adjustedfor lung volume, suggesting probably extraparenchymal cause). Results do not exclude clinical diagnosis of asthma, reactive airway disease. - 12/04/2022 PFT: - Spirometry - NORMAL, [...] triple tx Trelegy or other inhaler regimen, iffeasible; cont. albuterol as needed; use spacer - 01/08/23 try Trelegy, if feasible, or other txs, ICS/LABA; cont albuterol prn. - 08/25/23 not needing/using inhalers reg.; cont albuterol prn; restart maint inhalers, if needed - may also use duonebs; budesonide+formoterol nebs [...] pneumococcal, COVID19 vaccines recommended, updated Relevant Medications Albuterol 108 (90 Base) MCG/ACT Aero Soln inhaler SOLE on CPAP Had sleep study and given CPAP yrs - unable to use, tolerate; also given O2 HS subseq. Pulmonary fibrosis - Primary - had CT [...] for interstitial lung disease. 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 1.5 cm calcified [...] SSA, SSB, SCL70, CCP, RF, ANCAs. MPO, HI# - Negative. - 12/04/2022 LABS: CK 64 slightly increased only. - 12/04/2022 LABS: CMP satisfactory (except glucose 262 RBS) - 12/04/2022 LABS: ESR 44 mildly increased, nonspecific. CRP Normal. - 08/14/2023 PFT: - Spirometry - NORMAL, FEV1/FVC 83%, FEV1 2.04L 105% predicted, FVC 2.45L 94% predicted - Significant increase/response to bronchodilator: NO response during this testing (this does not preclude clinical benefit from bronchodilators). - Lung Volume - MILD RESTRICTION (probably extraparenchymal cause; e.g., body habitus), w/ MILDLY REDUCED TLC 3.40L 75% predicted, RV 0.90L 47% predicted. - Diffusing Capacity: MILDLY REDUCED DLCO 71% predicted, DL/VA 112% (which normalizes when adjustedfor lung volume, suggesting probably extraparenchymal cause). - 08/14/2023 CT chest without contrast reviewed: No acute lung findings. 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 - incidental findings: old, known scarring of heart aortic valve and coronary arteries related to age, cholesterol or atherosclerosis: routine follow-up w/ PCP, health and wellness coach --- follow-up CT Chest 6 months; 02/13/24 - may have had Acute Pneumonitis w/ [...] Relevant Orders EXERCISE-6 MIN. WALK PFT COMPLETE HPI 08/25/23: not in ae, on inhalers. Imaging, PFT, 6mwt, labs, Notes Reviewed. - 08/19/23 [facility] Int Med ffup Notes Reviewed 01/08/23: not in ae, on albuterol; Echo, [...] on albuterol nebs prev. Current Outpatient Medications: amLODIPine 5 MG Tab tablet, , Disp: [...] , Rfl: Continuous Blood Gluc Sensor (FREESTYLE XANDER 14 DAY SENSOR) [facility], , Disp: , Rfl: Dextromethorphan-guaiFENesin 30-200 MG/5ML Liquid, Take 5 mL by mouth every 4 hours as needed for Other or Cough (cough)., Disp: 474 mL, Rfl: 11 Diclofenac Sodium 1 % Gel gel, diclofenac VOLTAREN 1 % GEL apply topically twice daily as needed DICLOFENAC SODIUM [phone] Leandra Whitney RN 01-31-2014 [facility] ([id number]), Disp:, Rfl: Diclofenac Sodium 1 % Gel gel, apply 3 grams to THE PAINFUL AREA topically once daily for 28 DAYS, Disp: , Rfl: docusate 100 MG capsule, Take 1 capsule by mouth 2 times daily., Disp: , Rfl: ergocalciferol 1.25 MG (21871 UT) capsule, Take by mouth., Disp: , Rfl: furOSEmide 20 MG tablet, furosemide 20 mg tablet take 1 tablet by mouth every other day, Disp: , Rfl: glucose blood test strips (ASCENSIA MICROFILL TEST) Strip strip, Test blood sugar(s) 6 times daily. Dx: Type 1 DM - Controlled E10.9 Insulin: Yes, Disp: , Rfl: Hydroxychloroquine 200 MG tablet, 1 po q day, Disp: 90 tablet, Rfl: 3 insulin glargine 100 UNIT/ML vial, 46 units every 24 hr for insulin pump failure, Disp: , Rfl: insulin lispro 100 UNIT/ML vial, Humalog U-100 Insulin 100 unit/mL subcutaneous solution USE DIRECTED IN INSULIN PUMP UP TO 110 UNITS DAILY, Disp: , Rfl: Insulin Syringe-Needle U-100 (INSULIN SYRINGE 1CC/31GX5/16) 31G X 5/16 1 ML Misc, use as directedif pump fails up to 6 times daily, Disp: , Rfl: lansoprazole [address] capsule, , Disp: , Rfl: losartan 100 MG tablet, , Disp: , Rfl: Multiple Vitamin (MULTI-VITAMINS) Tab, MULTIPLE VITAMIN MULTIVITAMINS TABS One tablet by mouth daily MULTIPLE VITAMIN [id number] Amara Troy 11-22-2009 [facility] ([id number]), Disp: , Rfl: nitroGLYCERIN 0.4 MG/SPRAY Solution, nitroglycerin NITROLINGUAL 0.4 MG/SPRAY SOLN 1 spray under tongue every 5min up to 3 X (400mcg per spray) NITROGLYCERIN [id number] Leon Seaman MD 11-30-2012 Debora Myers RN [facility] ([id number]), Disp: , Rfl: pramipexole 1 MG tablet, At bedtime., Disp: , Rfl: predniSONE 10 MG tablet, Take 4 tablets by mouth for 3 days, then take 3 tablets by mouth for 3 days, then take 2 tablets by mouth for 3 days, 1 tablet for 3 days, Disp: 30 tablet, Rfl: 0 predniSONE 5 MG tablet, 8 po q AM for 1 day decrease by 1 pill a day until off - to be used on a PRN basis, Disp: 36 tablet, Rfl: 5 Probiotic capsule, Take 1 capsule by mouth daily., Disp: , Rfl: RA VITAMIN D-3 125 MCG (5000 UT) Cap capsule, , Disp: , Rfl: traMADol 50 MG Tab tablet, , Disp: , Rfl: Albuterol 108 (90 Base) MCG/ACT Aero Soln inhaler, Inhale 2 puffs every 4 hours as needed for Shortness of Breath, Respiratory Distress or Wheezing. GARGLE, RINSE MOUTH AFTER USE, Disp: 18 g, Rfl: 3 Mmbmbprvfkk-Qdgveuqvl-Oeomgd (Trelegy Ellipta) 200-62.5-25 MCG/ACT Aerosol Powder, breath activated, Inhale 1 puff daily. (Patient not taking: Reported on 08/25/2023), Disp: 28 Each, Rfl: 0 Rmtuenfeycg-Aqfuaipqq-Fuaawg (Trelegy Ellipta) 200-62.5-25 MCG/ACT Aerosol Powder, breath activated, Inhale 1 puff daily. (Patient not taking: Reported on 08/25/2023), Disp: 9 Each, Rfl: 3 No past medical history on file. No past surgical history on file. Social History Tobacco Use Smoking status: Never Smokeless tobacco: Never Substance Use Topics Alcohol use: Never History reviewed. No pertinent family history. Allergies Allergen Reactions Acetaminophen Amitriptyline Amoxicillin-Pot Clavulanate Cefadroxil Ephedrine Levofloxacin Oxycodone Sulfa Antibiotics Aspirin Dipyridamole Doxycycline Pregabalin Review of Systems Currently smoking or Hx of smoking -NO Oxygen use __ NO __ patient is benefiting from oxygen use. Do you have a CPAP- NO DME company- NA Most recent CT- 08/14/23 Most recent PFT- 08/14/23 Symptoms include: Increase in shortness of breath- NO Dyspnea upon exertion- YES Dyspnea at rest- NO Cough- productive- NO Have you had the Covid 19 vaccine- YES Do you need a Medication refill? NA Pt presents for review of Asthma Maintenance medication- NO Rescue medication- NA Patient presents for 6 Month follow up and a review of CT PFT 6MWT Vitals: 08/25/23 1006 BP: 120/78 Pulse: 56 Resp: 18 SpO2: 99% Height: 1.6 m (5' 3) Vital Signs Reviewed as noted. Physical Exam [...] notes, results, interpreted tests, imaging today before seeingthe pt; reviewed and discussed w/ pt, questions answered - 08/14/2023 CT chest without contrast reviewed: No acute lung findings. 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 - incidental findings: old, known scarring of heart aortic valve and coronary arteries related to age, cholesterol or atherosclerosis: routine follow-up w/ PCP, health and wellness coach --- follow-up CT Chest 6 months; 02/13/24 - 08/14/2023 6MWT: on Room Air. Dx: dyspnea - pt. walked for 6 minutes, for a distance of 400 ft (6MWD 122 m). - Baseline SpO2 at rest on room air: 98%. - Significant oxygen desaturation while walking: mild; lowest spO2 93% at 2 min; post-test spO2 96%. - Dyspnea: NO, highest Mod. Chad Dyspnea Scale Score: 0. IMPRESSION: Exercise limitation: YES. Required or Qualified for Oxygen Supplementation: NO. - 08/14/2023 PFT: - Spirometry - NORMAL, FEV1/FVC 83%, FEV1 2.04L 105% predicted, FVC 2.45L 94% predicted - Significant increase/response to bronchodilator: NO response during this testing (this does not preclude clinical benefit from bronchodilators). - Lung Volume - MILD RESTRICTION (probably extraparenchymal cause; e.g., body habitus), w/ MILDLY REDUCED TLC 3.40L 75% predicted, RV 0.90L 47% predicted. - Diffusing Capacity: MILDLY REDUCED DLCO 71% predicted, DL/VA 112% (which normalizes when adjustedfor lung volume, suggesting probably extraparenchymal cause). Results do not exclude clinical diagnosis of asthma, reactive airway disease. - 12/04/2022 PFT: - Spirometry - NORMAL, [...] technically difficult study; Normal left, right heart function(LVEF 70%, mild diastol dysfunction), Mod. Aortic valve [...] for interstitial lung disease. 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 1.5 cm calcified lesion in the spleen. FINDINGS Lung parenchyma and airways: The central airways are patent. The bilateral lungs are remarkable fordiffuse fine reticular opacities with peripheral lung and [...] imaged thyroid gland is normal. No supraclavicular oraxillary lymphadenopathy. There are multiple borderline enlarged mediastinal lymph nodes, likely reactive. Immunization Administrations COVID-19 bivalent vaccine (Pfizer) 12yr +, 30mcg/0.3mL 01/03/2022 (76 y.o.) COVID-19 monovalent vaccine (Pfizer) 12yr +, 30mcg/0.3mL 07/30/2021 (75 y.o.) COVID-19 monovalent vaccine, mRNA, Pfizer, 0.3 ML 06/06/2020 (74 y.o.) 06/28/2020 (74 y.o.) 01/13/2021(75 y.o.) Return in about 6 months (around 02/25/2024). CT 02/13/24 FOLLOW-UP Patient was advised to call with [...] understanding and agreement to proceed with plan. 08/25/2023: I spent more than 30 mins: reviewed selected chart notes, results, interpreted tests, imaging today before seeing the pt; interviewing and examining pt; reviewed and discussed w/ pt, questions answered; counselling/educating pt/family/caregiver; ordering meds/tests as appropriate; documenting clinical information in the chart. Some Elements copied from previous notes. I have updated where appropriate, and all reflect currentmedical decision making from today's encounter. Note: This dictation was generated using [employer] voice recognition software. Please excuse any typographical, grammatical or spelling errors that may have occurred using the system Ivan Rodriguez MD, MPH, [facility]Critical [facility] 08/25/2023 documented in this [facility] Evaluation + Plan note * Assessment & Plan Note - Ivan Quan MD - 08/25/2023 10:39 AM EDT Associated Problem(s): Asthma - Nonsmoker; Hx of Asthma was on albuterol nebs prev. - have element of mild RAD, Asthma - 08/14/2023 PFT: - Spirometry - NORMAL, FEV1/FVC 83%, FEV1 2.04L 105% predicted, FVC 2.45L 94% predicted - Significant increase/response to bronchodilator: NO response during this testing (this does not preclude clinical benefit from bronchodilators). - Lung Volume - MILD RESTRICTION (probably extraparenchymal cause; e.g., body habitus), w/ MILDLY REDUCED TLC 3.40L 75% predicted, RV 0.90L 47% predicted. - Diffusing Capacity: MILDLY REDUCED DLCO 71% predicted, DL/VA 112% (which normalizes when adjustedfor lung volume, suggesting probably extraparenchymal cause). Results do not exclude clinical diagnosis of asthma, reactive airway disease. - 12/04/2022 PFT: - Spirometry - NORMAL, [...] triple tx Trelegy or other inhaler regimen, iffeasible; cont. albuterol as needed; use spacer - 01/08/23 try Trelegy, if feasible, or other txs, ICS/LABA; cont albuterol prn. - 08/25/23 not needing/using inhalers reg.; cont albuterol prn; restart maint inhalers, if needed - may also use duonebs; budesonide+formoterol nebs [...] - Influenza, pneumococcal, COVID19 vaccines recommended, updated [facility]05-01-2024 History of Present illness Narrative* Hernesto Harvey APRN.CROP AND SOIL TECHNICIAN - 08/19/2023 12:37 PM EDT CC: Patient presents with: Recheck: 3 month follow up HPI Kylie Russo is a 78 year old female who presents today for routine follow up but has continued to fall multiple times. Has had falls many years ago, saw neurology, and was ordered to physical therapy which she felt did not help. Last fall was 4 weeks ago where she lost her balance and hit the corner of her nightstand. Hurt herright knee also in the fall, saw orthopedics, was ordered and MRI but pain to knee is improving so does not feel she needs the MRI. DIABETES MELLITUS: Ms. Russo sees endocrinology for this. Follows a diabetic diet most of the time. She is compliant with medication(s) and is tolerating med(s) without any side effects. She reportschecking her glucose on a continuous reading with average blood sugar of 149. Patient's last HgA1C was Hemoglobin A1C (%) Date Value 12/29/2022 6.7 05/07/2021 7.5 05/01/2020 7.5 Hemoglobin A1C (POCT) (%) Date Value 06/09/2022 7.1 10/18/2020 7.3 ) Last Ophthalmology exam was within the past 3 months Last Podiatry exam was within the past 3 months and sees him again in 2 weeks. HTN and HLD: Ms. Russo indicates that she is feeling well and denies any symptoms referable to elevated blood pressure. Specifically denies headache, chest pain, palpitations, dyspnea, and peripheral edema. Patient denies any side effects of her medication(s) and is compliant with their regimen. She does not check BP's generally. Kylie denies regular aerobic exercise. She watches her diet forsodium, low fat and low cholesterol most of the time. Last 3 Encounter BP Readings: Date: BP: 08/19/2023 132/80 07/31/2023 117/71 06/26/2023 127/74 REVIEW OF SYSTEMS See HPI PAST MEDICAL HISTORY Diagnosis Date Abnormal mammogram, unspecified left breast BPPV (benign paroxysmal positional vertigo) 02/11/2015 BPV (benign positional vertigo) CAD (coronary artery disease) Carotid stenosis CARPAL TUNNEL BILATERRAL 08/08/2005 Coronary artery disease involving conf[place] sal[place] coronary artery Dr. 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 ([facility]) 12/06/2018 Other and unspecified hyperlipidemia Other forms of migraine Other psoriasis Postsurgical percutaneous transluminal coronary angioplasty status Rheumatoid arthritis(714.0) RLS (restless legs syndrome) 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 clonazePAM (KLONOPIN) 1 mg tablet Take 1 tablet by mouth at bedtime as needed for up to 90 days. diclofenac sodium (VOLTAREN ARTHRITIS PAIN TOPICAL) Apply 2 g to affected area. lidocain-me.edpdxhh-ktdc-obgbj 0.5-20-0.035-5 % ptmd Apply to affected area. traMADol (ULTRAM) 50 mg tablet Take 50 mg by mouth. albuterol HFA (PROVENTIL HFA, VENTOLIN HFA) 90 mcg/actuation inhaler Q4H magnesium citrate 100 mg cap Take 1 capsule by mouth once daily. traZODone (DESYREL) 50 mg tablet Take 2 tablets by mouth daily at bedtime. oiqcdrtokct-pjxgumlij-wemmffdz (TRELEGY ELLIPTA) 200-62.5-25 mcg inhalation powder Inhale 1 Puff asinstructed once daily. amLODIPine (NORVASC) 5 mg tablet TAKE 1 TABLET BY MOUTH EVERY DAY WALKER ROLLATOR SEAT WITH 6 WHEELS - RED For ambulation pramipexole (MIRAPEX) 1 mg tablet Take 2 [...] (PROBIOTIC WITH PREBIOTIC ORAL) Take by mouth. losartan (COZAAR) 100 mg tablet Take 1 [...] Never Smokeless tobacco: Never Vaping Use Vaping Use: Never used Substance Use Topics Alcohol use: No Drug use: No PHYSICAL EXAM BP 132/80 Pulse 70 Resp 16 Wt 83.5 kg (184 lb) SpO2 95% BMI 34.77 kg/m General Appearance: well appearing, in no acute distress, alert Skin: large healing bruise to right side of abdomen, Lungs: Lungs clear to auscultation. No wheezing, rhonchi, rales. Heart: RRR without murmur, gallop, or rubs. No ectopy Abdomen: Abdomen soft, non-tender. Bowel sounds normal. No masses, organomegaly Health maintenance reviewed with patient: Spirometry Never done Diabetic Foot Exam due on 10/02/2021 Advance Directive Discussion due on 04/20/2023 Urine Albumin:Creatinine Ratio due on 06/12/2023 LDL Cholesterol due on 06/12/2023 HbA1C due on 06/29/2023 Dilated Retinal Exam due on 07/26/2023 Covid-19 Vaccine( season) due on 08/27/2023 Annual PCP Team Chronic Disease Visit due on 05/18/2024 BP Controlled (<130/80) due on 07/30/2024 DTaP,Tdap,Td Vaccine(3 - Td or Tdap) due on 07/31/2031 Bone Density Screening Completed Influenza Vaccine Completed RSV Vaccine Completed Hepatitis C Screening Completed Shingrix Vaccine Completed Pneumococcal Vaccine: 65+ Completed Mammogram Screening Discontinued Colorectal Cancer Screening Discontinued DATA REVIEWED: No new labs ASSESSMENT/PLAN: 1. Essential hypertension - ICD9: 401.9, ICD10: I10 (primary diagnosis) - Controlled - Continue current medications - Recommend home blood pressure monitoring, to bring results to next visit - Encouraged sodium restriction, DASH or Mediterranean diet - Recommend regular aerobic exercise - LOSARTAN 100 MG TABLET 2. Type 1 diabetes mellitus with diabetic neuropathy (HCC) - ICD9: 250.61, 357.2, ICD10: E10.40 - Controlled - Continue current medications as recommended by endocrinology - Blood glucose monitoring on a continuous glucose monitoring schedule - Counseled on healthy diet and regular exercise - Discussed need for and benefit of weight loss. BMI 34.77 kg/(m^2) - INSULIN LISPRO (U-100) 100 UNIT/ML SUBCUTANEOUS SOLUTION 3. Mixed hyperlipidemia - ICD9: 272.2, ICD10: E78.2 - Control undetermined, due for labs as already ordered - Continue current medications - Counseled on healthy diet and regular exercise - Discussed need for and benefit of weight loss. BMI 34.77 kg/(m^2) - ATORVASTATIN 40 MG TABLET 4. Gastroesophageal reflux disease without esophagitis - ICD9: 530.81, ICD10: K21.9 -not discussed today, refill needed - LANSOPRAZOLE 30 MG CAPSULE,DELAYED RELEASE 5. Restless legs - ICD9: 333.94, ICD10: G25.81 -not discussed today, refill needed - PRAMIPEXOLE 1 MG TABLET 6. Multiple falls - ICD9: V15.88, ICD10: R29.6 - patient declining physical therapy as previously recommended by neurology - denies any worsening or change in her chronic falls, if any change may need to re consult to neurology and repeat brain imaging 7. Bruising - ICD9: 924.9, ICD10: T14.8XXA Healing and non-tender - occurred 4 weeks ago No further imagine or treatment needed at this time Prescription instructions reviewed with patient as applicable. Potential red flag symptoms discussed with the patient. Reviewed appropriate action plan to take if red flag symptoms occur. Patient agreeable to treatment plan. Hernesto Harvey APRN.TIM documented in this [facility] Procedure note* Ivan Quan MD - 08/14/2023 3:00 PM EDTAssociated Order(s): PFT COMPLETE 08/14/2023 Kylie Russo is a 78 y.o. female, Date of :1945. Dx: Pulmonary Fibrosis, dyspnea. Ht 63 in, Wt 183 lbs. Smoker: no. Medications not listed. Pt efforts: good. Data appear acceptable and reproducible: fair. Albuterol given for postbronchodilator spirometry. Procedure: Pulmonary Function Test Complete PFT including spirometry, spirometry with bronchodilator response, lung volumes, Diffusioncapacity and Flow Volume Loop were performed during this session. Impression: - 08/14/2023 PFT: - Spirometry - NORMAL, FEV1/FVC 83%, FEV1 2.04L 105% predicted, FVC 2.45L 94% predicted - Significant increase/response to bronchodilator: NO response during this testing (this does not preclude clinical benefit from bronchodilators). - Lung Volume - MILD RESTRICTION (probably extraparenchymal cause; e.g., body habitus), w/ MILDLY REDUCED TLC 3.40L 75% predicted, RV 0.90L 47% predicted. - Diffusing Capacity: MILDLY REDUCED DLCO 71% predicted, DL/VA 112% (which normalizes when adjustedfor lung volume, suggesting probably extraparenchymal cause). Results do not exclude clinical diagnosis of asthma, reactive airway disease. Please correlate clinically. SEE SCANNED PFT RESULTS FOR DETAILS. (The above report was entered in part using voice recognition medical dictation software. Although I have reviewed this report for accuracy, certain words and phrases may not be entered as intended. Please excuse typographical and grammatical errors.) [facility]04-26-2024 Procedure note* Ivan Quan MD - 08/14/2023 3:00 PM EDTAssociated Order(s): EXERCISE-6 MIN. WALK - 08/14/2023 6MWT: on Room Air. Dx: dyspnea - pt. walked for 6 minutes, for a distance of 400 ft (6MWD 122 m). - Baseline SpO2 at rest on room air: 98%. - Significant oxygen desaturation while walking: mild; lowest spO2 93% at 2 min; post-test spO2 96%. - Dyspnea: NO, highest Mod. Chad Dyspnea Scale Score: 0. IMPRESSION: Exercise limitation: YES. Required or Qualified for Oxygen Supplementation: NO. [facility]04-26-2024 Procedure note* Ivan Quan MD - 08/14/2023 3:00 PM EDTAssociated Order(s): PFT COMPLETE 08/14/2023 Kylie Russo is a 78 y.o. female, Date of :1945. Dx: Pulmonary Fibrosis, dyspnea. Ht 63 in, Wt 183 lbs. Smoker: no. Medications not listed. Pt efforts: good. Data appear acceptable and reproducible: fair. Albuterol given for postbronchodilator spirometry. Procedure: Pulmonary Function Test Complete PFT including spirometry, spirometry with bronchodilator response, lung volumes, Diffusioncapacity and Flow Volume Loop were performed during this session. Impression: - 08/14/2023 PFT: - Spirometry - NORMAL, FEV1/FVC 83%, FEV1 2.04L 105% predicted, FVC 2.45L 94% predicted - Significant increase/response to bronchodilator: NO response during this testing (this does not preclude clinical benefit from bronchodilators). - Lung Volume - MILD RESTRICTION (probably extraparenchymal cause; e.g., body habitus), w/ MILDLY REDUCED TLC 3.40L 75% predicted, RV 0.90L 47% predicted. - Diffusing Capacity: MILDLY REDUCED DLCO 71% predicted, DL/VA 112% (which normalizes when adjustedfor lung volume, suggesting probably extraparenchymal cause). Results do not exclude clinical diagnosis of asthma, reactive airway disease. Please correlate clinically. SEE SCANNED PFT RESULTS FOR DETAILS. (The above report was entered in part using voice recognition medical dictation software. Although I have reviewed this report for accuracy, certain words and phrases may not be entered as intended. Please excuse typographical and grammatical errors.) * Ivan Quan MD - 08/14/2023 3:00 PM EDTAssociated Order(s): EXERCISE-6 MIN. WALK - 08/14/2023 6MWT: on Room Air. Dx: dyspnea - pt. walked for 6 minutes, for a distance of 400 ft (6MWD 122 m). - Baseline SpO2 at rest on room air: 98%. - Significant oxygen desaturation while walking: mild; lowest spO2 93% at 2 min; post-test spO2 96%. - Dyspnea: NO, highest Mod. Chad Dyspnea Scale Score: 0. IMPRESSION: Exercise limitation: YES. Required or Qualified for Oxygen Supplementation: NO. documented in this [facility]04-22-2024 Instructions* Patient Instructions* Radha Story RD - 08/10/2023 11:55 AM EDT Increase fluids to at least 64 oz before 6 p.m. 1. Follow a consistent carbohydrate controlled diet 2. Consistent carbohydrate intake of 2 carbs per meal or 30 grams and 1 carb per evening snack or 15 grams. 3 Consume whole grains (whole wheat, oatmeal, bran flakes, popcorn) 4 Consume fresh or frozen fruits and vegetables. 5 Use lean meats (poultry, fish, lean beef or pork). 6 Use calorie-free or sugar-free beverages. 7 Use healthy fats: Sibley oil, canola oil, walnuts, ground flaxseed or flaxseed oil, almonds, sunflower/pumpkin seeds, butter spray, margarine with no trans fatty acids, cooking spray. 8 Keep a food journal week to monitor food choices and diet plan adherence. 9 Increase physical activity - Minimum of 30 minutes per day for 5-6 times per week. 10. Weigh and measure your serving sizes until you are comfortable with visibly estimating accurateportion sizes. Fasting blood sugar goals less than 120/130 and two hour post prandial less than 160/180 grams. With delayed gastric emptying consider splitting insulin in two doses and more so with high fat andhigh fiber foods - check with endo documented in this encounterBarn[facility]04-[facility] History of Present illness Narrative* Radha Story RD - 08/10/2023 10:57 AM EDT Nutrition Therapy Initial Assessment Nutrition Diagnosis: Altered nutrition-related lab values, related to, endocrine dysfunction, as evidenced by type 1 diabetes . RECOMMENDED MALNUTRITION DIAGNOSIS: NO MALNUTRITION IDENTIFIED NUTRITION CARE PLAN Nutrition Intervention 08/10/2023: modify type and amount of food or beverage Increase fluids to at least 64 oz before 6 p.m. 1. Follow a consistent carbohydrate controlled diet 2. Consistent carbohydrate intake of 2 carbs per meal or 30 grams and 1 carb per evening snack or 15 grams. 3 Consume whole grains (whole wheat, oatmeal, bran flakes, popcorn) 4 Consume fresh or frozen fruits and vegetables. 5 Use lean meats (poultry, fish, lean beef or pork). 6 Use calorie-free or sugar-free beverages. 7 Use healthy fats: Sibley oil, canola oil, walnuts, ground flaxseed or flaxseed oil, almonds, sunflower/pumpkin seeds, butter spray, margarine with no trans fatty acids, cooking spray. 8 Keep a food journal week to monitor food choices and diet plan adherence. 9 Increase physical activity - Minimum of 30 minutes per day for 5-6 times per week. 10. Weigh and measure your serving sizes until you are comfortable with visibly estimating accurateportion sizes. Fasting blood sugar goals less than 120/130 and two hour post prandial less than 160/180 grams. With delayed gastric emptying consider splitting insulin in two doses and more so with high fat andhigh fiber foods - check with endo Nutrition Monitoring & Evaluation: blood sugars in target range, weight loss Need for Follow up: 4-6 weeks Patient presents for initial MNT as relates to diabetes type 1, with an insulin pump and CGM. Just had gastric emptying study which show delayled gastric emptying. Blood sugars fluctuating. Also desires weight loss. Has not had MNT for diabetes in the past, comes with questions. Intake noted for eating three meals, no snacks. Beverages appropriate in type and amount. Limited exercise and activity. 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 Resting Metabolic Rate: 1266 Malnutrition Screening Significant unintentional weight loss? No Eating less than 75% of usual intake for more than 2 weeks? No Potential Signs of Inflammation: no identifiable sources Education Materials Provided: Healthy You - Planning Healthy Meals READINESS TO LEARN Cognitive ability: Alert and oriented Motivation to learn: Interested Family support: High - Very involved in pt care Instruction provided to: Patient Patient learns best by: Individual Instruction Factors affecting learning: None Physical limitations affecting learning: None Referred/Supervised by: Morales/Placido WERNERT Billing Type: Initial Assess/15 min 4 units SIGNATURE: Radha Story RD PATIENT NAME: Kylie Russo DATE: August 10, 2023 TIME: 11:03 AM documented in this encounterBarn[facility]04-12-2024 History of Present illness Narrative* Alberto Argueta APRN.CROP AND SOIL TECHNICIAN - 07/31/2023 10:00 AM EDT Chief complaint: Seropositive RA HPI: To review, Kylie Russo is a 77 year old female [...] the certain PIPs that hasn't gone on forvery long - In spring, decreased HCQ to one daily per Dr. Clinton Farrar - In July, diagnosed with ILD. Sees Dr. 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 - In Jan, advised to resume HCQ once daily per vp of customer experience strategy (but didn't say why). - at [facility], reports that hands had become swollen off HCQ. Has been on HCQ for less than a month now,hasn't kicked back in yet. - With a cough and BRIGHT from ILD. - Last plaquenil eye exam normal around July or August PAST MEDICAL HISTORY Diagnosis Date Abnormal mammogram, unspecified left breast BPPV (benign paroxysmal positional vertigo) 02/11/2015 BPV (benign positional vertigo) CAD (coronary artery disease) Carotid stenosis CARPAL TUNNEL BILATERRAL 08/08/2005 Coronary artery disease involving confederated salish coronary artery Dr. 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 ([facility]) 12/06/2018 Other and unspecified hyperlipidemia Other forms of migraine Other psoriasis Postsurgical percutaneous transluminal coronary angioplasty status Rheumatoid arthritis(714.0) RLS (restless legs syndrome) 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 She is a patient of Dr. Grajeda. She is accompanied by her . Twisted her knee two weeks ago. She is scheduled to have an MRI. Otherwise her joint symptoms have been stable. She fell 1.5 weeks ago at home. No fractures since the GABY. Sites of pain: R knee, pain rated 4-510 Joint swelling: none EMS:yes, lasting 15 minutes No recent infections. Tolerating meds. REVIEW OF SYSTEMS GENERAL: No fevers HEENT: + headaches RESPIRATORY: Negative for cough, wheezing, + shortness of breath CARDIOVASCULAR: Negative for chest pain or palpitations GI: No nausea, vomiting, or diarrhea : No history of dysuria SKIN: Negative for lesions, rash No gross hematuria or blood in stool + mouth sores Current Outpatient Medications Medication Sig clonazePAM (KLONOPIN) 1 mg tablet Take 1 tablet by mouth at bedtime as needed for up to 90 days. diclofenac sodium (VOLTAREN ARTHRITIS PAIN TOPICAL) Apply 2 g to affected area. lidocain-me.pzitbpv-ckhw-cvuvn 0.5-20-0.035-5 % ptmd Apply to affected area. traMADol (ULTRAM) 50 mg tablet Take 50 mg by mouth. albuterol HFA (PROVENTIL HFA, VENTOLIN HFA) 90 mcg/actuation inhaler Q4H magnesium citrate 100 mg cap Take 1 capsule by mouth once daily. traZODone (DESYREL) 50 mg tablet Take 2 tablets by mouth daily at bedtime. (Patient not taking: Reported on 06/12/2023) hydrOXYchloroQUINE (PLAQUENIL) 200 mg tablet Take 1 tablet by mouth two times a day. nsoyaivdflk-fozalwbag-fdljvlwc (TRELEGY ELLIPTA) 200-62.5-25 mcg inhalation powder Inhale 1 Puff asinstructed once daily. amLODIPine (NORVASC) 5 mg tablet TAKE 1 TABLET BY MOUTH EVERY DAY WALKER ROLLATOR SEAT WITH 6 WHEELS - RED For ambulation pramipexole (MIRAPEX) 1 mg tablet Take 2 [...] (PROBIOTIC WITH PREBIOTIC ORAL) Take by mouth. losartan (COZAAR) 100 mg tablet Take 1 [...] as needed. (Patient not taking: Reported on 06/12/2023) No current facility-administered medications for this visit. FAMILY HISTORY Problem Relation Age of Onset Cancer Mother breast (diagnosed mid 50's) Heart Mother valvular other (Other) Father leukemia (dx'd age 55) Asthma Paternal Grandmother Diabetes Paternal Grandmother Colon Cancer Other none other (autoimmune def) Daughter SOCIAL HISTORY: Lives in [place] with spouse. 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 Son in law is a pediatric physician. Tobacco use: None Alcohol use: None Drug use: None PHYSICAL EXAM: BP 117/71 Pulse 68 Temp 36 C (96.8 F) (Temporal) CONSTITUTIONAL: Well-appearing, in NAD. SKIN: No rash. No sclerodactyly, calcinosis, telangiectasias, digital ulcers, or skin thickening. EYES: No scleral icterus or conjunctivitis ENT and Mouth: External ears normal. RESPIRATORY: Normal breath sounds, clear to auscultation. No crackles. CARDIOVASCULAR: Regular rate and rhythm, no murmurs or rubs EXTREMITIES/LYMPH: No edema bilaterally NEURO: Awake, alert and oriented, in a wheel chair today MUSCULOSKELETAL: JOINT APPEARANCE: Subtle Heberden's nodes present bilaterally. No erythema or warmth of any upper or lower extremity joint. RANGE OF MOTION: Able to fully close fists and curl fingers bilaterally. SWOLLEN JOINTS/SYNOVITIS: No synovitis of any joint. TENDER JOINTS: b/l shoulders No tenderness to spine Widespread Pain Index: 13 (0-19) Symptoms Severity Scale: 3 (0-12) WPI>7 and SS Scale>5 OR WPI 3-6 and SS Scale >9 consistent with fibromyalgia Labs reviewed and discussed with the patient: Latest Ref Rng 02/25/2023 Vitamin D 25 Hydroxy 31.0 - 80.0 ng/mL 34.5 Component Latest Ref Rng & Units 12/29/2022 [...] Neutrophil Cytoplasmic Ab, IgG <1:20 <1:20 STUDIES: 02/2023 DEXA: IMPRESSION: THE LOWEST T-SCORE IS -0.9 IN THE RIGHT HIP 1) DIAGNOSIS (based on BMD alone): NORMAL BONE DENSITY *Nov TTE-mild concentric LVH. Mild diastolic dysfunction. [...] enbrel, and orencia. However, with significantly improved symptomss/p multiple strokes. serologies unremarkable but explained hx is still c/w RA. Stable overall. - continue HCQ 200 mg bid. Potential side effects were explained, including retinal toxicity leading to blindness. Advised that routine ophthalmology follow-up at least annually thereafter (last normal in 03/2023). - Advised no further tx is needed at this time from the joint perspective but to let us know if thepulmonologist feels like additional tx is needed from the ILD standpoint so that we can provide input as needed. - Continue pulmonary management of ILD -check labs now 2. History of osteopenia: Multiple remote fractures, not clearly fragility fractures per history. Remote use of fosamax '- per the medication list although she doesn't recall this. DEXA withnormal BMD, Nov DXA with osteopenia. 02/2023 DEXA was normal. - Continue calcium and vitamin D supplementation - fall precautions - next DEXA due 02/2025 3. General health maintenance: - Advised to continue follow-up with PCP for routine health maintenance and malignancy screening Follow-up in 5 months, or sooner if needed Thank you for allowing me to participate in the care of your patient. Alberto Argueta APRN.TIM documented in this encounterBarnesville Hospital04-05-2024 Miscellaneous Notes* Telephone Encounter - Hernesto Harvey APRN.CNP - 07/24/2023 12:44 PM EDT She has been seeing podiatry for years, no need for consult. PDMP website checked and validated. All prescriptions have been APPROPRIATELY filled. No suspiciousactivity was identified. 07/24/2023 by Hernesto Harvey APRN.CNP * Telephone Encounter - Rosalba Ren RN - 07/24/2023 9:33 AM EDT Pt also said to let Hernesto Harvey know that she wants Dr Zhao to do her foot procedure. I did not see a consult for podiatry. Pt also reports she is out of Klonopin. Patient has been identified by name and date of : Yes, Provider Dr Anderson Date 07/24/23 Time 0934. Patient phones for refill(s): Requested Prescriptions Pending Prescriptions Disp Refills clonazePAM (KLONOPIN) 1 mg tablet 45 tablet 0 Sig: Take 1 tablet by mouth at bedtime as needed for up to 90 days. Date of last office visit in primary care: 05/18/2023 Date of next office visit in primary care: 08/19/2023 Please advise. Thank you. Rosalba Ren RN. documented in this encounterBarnesville Hospital03-14-2024 Miscellaneous Notes* Telephone Encounter - Magalys Mera RN - 07/02/2023 10:10 AM EDT [employer] Pump and CGM Supplies Rx paperwork completed, signed by Dr. Nielsen, and faxed back to [facility]. Pt is now using [facility] for all of her diabetic supplies AND medication. Fax confirmation received. Magalys Mera RN July 02, 2023 10:15 AM documented in this encounterBarnesville Hospital03-11-2024 Miscellaneous Notes* Telephone Encounter - Diamond Rushing - 06/29/2023 12:58 PM EDT Phoned number below. It is for [facility] not [employer]. I will refax [facility] insulin paperwork to pharmacy [phone] as directed by macrina Shrestha. Confirmation received and placed in files Diamond Rushing MA * Telephone Encounter - Mia De León MA - 06/29/2023 12:05 PM EDT Odalis from [employer] calling to see if the office had received the faxed order for the Lispro insulin and pump. She can be reached at [phone] if it needs to be refaxed or there is any additional info needed. Mia De León MA documented in this encounterBarnesville Hospital03-08-2024 Miscellaneous Notes* Telephone Encounter - Magalys Mera RN - 06/26/2023 3:23 PM EST Pt calls in, name & verified. Pt wonders if she can get clarification on the pump setting change that Dr. Nielsen had wanted herto do per yesterday's phone conversation with Avi Rushing MA. Pt instructed that per Dr. Nielsen: [employer] data reviewed for patient- Please advise her to increase basal rate from 7.30 pm -12 am from 2.50 units/hr to 2.55 units/hr. Pt voices understanding. Magalys Mera RN June 26, 2023 3:24 PM documented in this encounterBarnesville Hospital03-08-2024 Miscellaneous Notes* Telephone Encounter - Magalys Mera RN - 06/26/2023 2:13 PM EST Insulin Rx and clinical chart notes faxed to [facility]. Fax confirmation received. Magalys Mera RN June 26, 2023 2:13 PM documented in this encounterBarnesville Hospital03-08-2024 History of Present illness Narrative* Sadia Muniz RN - 06/26/2023 1:[address] Givens, Kylie was provided with a hinged knee brace, size M, and instructed/educated in its application, wear, and care. All questions were answered, and patient was able to demonstrate competence with the necessary skills to utilize the above equipment. Patient signed [employer] PPA. Brace billed to [employer]. Sadia Muniz RN ALO * Justo Givens V, DO - 06/26/2023 1:36 PM EST SERVICE DATE: June 26, 2023 PCP: Alcira Anderson MD Subjective Patient ID: Bridger is a 77 year old female. Chief Complaint: Patient presents with: Right Knee Pain PAIN EVALUATION 06/26/2023 1305 Pain Level: 10 Pain Location: Knee-Right Description: Sharp;Aching Duration Amount of Time: 2 Duration Units: Weeks Frequency: Continuous Intervention/Comfort measure: Reposition;Medication;Relaxation HPI 77-year-old female presents today for right anterior knee pain after fall. She states she has had several falls over the past 3 months most recent leading to acute right knee pain. She states she wasevaluated in [facility] at [facility], by Dr. Messer and pain management, and most recently at [facility]. She points to the anterior knee in the area of the patellar tendonwhen she describes the location of her pain. She is unable to fully extend the knee against gravity. She sees Dr. Messer for pain management. TREATMENTS PRIOR TO INITIAL CONSULT: x-rays, wheel chair Review of Systems ACTIVE PROBLEM LIST Hyperlipidemia Hypertension Esophagitis Depression Anxiety State Rheumatoid Arthritis (Hcc) Sleep Apnea Vitamin Deficiency Diverticulosis of Colon Cerebral Infarction ([facility]) Lumbar Disc Herniation Restless Legs Syndrome (Rls) Calcifying Tendinitis of Shoulder Venous Insufficiency Cervicalgia Gait Abnormality Obstructive Sleep Apnea Syndrome Mixed Hyperlipidemia Gerd (Gastroesophageal Reflux Disease) Rls (Restless Legs Syndrome) Insomnia Ataxia Following Cerebral Infarction Coronary artery disease Mild Nonproliferative Diabetic Retinopathy of Both Eyes ([facility]) Hypoglycemia Unawareness in Type 1 Diabetes Mellitus ([facility]) Asthma H/O Multiple Allergies Insulin Pump in Place Type 1 Diabetes Mellitus With Mild Nonproliferative Retinopathy of Both Eyes Without Macular Edema ([facility]) Type 1 Diabetes Mellitus With Diabetic Neuropathy ([facility]) Class 2 Severe Obesity With Serious Comorbidity and Body Mass Index (Bmi) of 39.0 to 39.9 in Adult ([facility]) Bilateral Carotid Artery Stenosis PAST MEDICAL HISTORY Diagnosis Date Abnormal mammogram, unspecified left breast BPPV (benign paroxysmal positional vertigo) 02/11/2015 BPV (benign positional vertigo) CAD (coronary artery disease) Carotid stenosis CARPAL TUNNEL BILATERRAL 08/08/2005 Coronary artery disease involving confederated salish coronary artery Dr. 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 ([facility]) 12/06/2018 Other and unspecified hyperlipidemia Other forms of migraine Other psoriasis Postsurgical percutaneous transluminal coronary angioplasty status Rheumatoid arthritis(714.0) RLS (restless legs syndrome) 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 lidocain-me.ltpouxs-vebs-oacwy 0.5-20-0.035-5 % ptmd Apply to affected area. traMADol (ULTRAM) 50 mg tablet Take 50 mg by mouth. albuterol HFA (PROVENTIL HFA, VENTOLIN HFA) 90 mcg/actuation inhaler Q4H clonazePAM (KLONOPIN) 1 mg tablet Take 1 tablet by mouth at bedtime as needed for up to 90 days. clonazePAM (KLONOPIN) 1 mg tablet Take 1 tablet by mouth at bedtime as needed for up to 7 days. magnesium citrate 100 mg cap Take 1 capsule by mouth once daily. hydrOXYchloroQUINE (PLAQUENIL) 200 mg tablet Take 1 tablet by mouth two times a day. ocsjtuuwpfb-bxogymnuv-tjshncde (TRELEGY ELLIPTA) 200-62.5-25 mcg inhalation powder Inhale 1 Puff asinstructed once daily. amLODIPine (NORVASC) 5 mg tablet TAKE 1 TABLET BY MOUTH EVERY DAY WALKER ROLLATOR SEAT WITH 6 WHEELS - RED For ambulation pramipexole (MIRAPEX) 1 mg tablet Take 2 [...] (PROBIOTIC WITH PREBIOTIC ORAL) Take by mouth. losartan (COZAAR) 100 mg tablet Take 1 tablet by mouth once daily. hydrocortisone 2.5 % cream Apply to affected area once daily. ketoconazole (NIZORAL) 2 % shampoo aspirin 81 mg chewable tablet Take 1 tablet by mouth once daily. Cholecalciferol, Vitamin D3, 125 mcg (5,000 unit) cap Take 1 capsule by mouth once daily. multivitamin tablet Take 1 tablet by mouth once daily. traZODone (DESYREL) 50 mg tablet Take 2 tablets by mouth daily at bedtime. (Patient not taking: Reported on 06/12/2023) Biotin 1 mg tab Take 1 tablet by mouth once daily. acetaminophen (TYLENOL 8 HOUR) 650 mg CR tablet Take 1 tablet by mouth every 8 hours as needed. (Patient not taking: Reported on 06/12/2023) Allergies, medications, past surgical history, family history and past medical history were reviewed per this encounter. Objective Ortho Exam 77 y/o alert, no acute distress, answers questions appropriately. Right knee evaluation- no effusion. Tender with palpation over patellar tendon. Extension limited with active quad contraction. Unable to weight bear without pain. No laxity with varus or valgus stress. Assessment/Plan ASSESSMENT Diagnosis (S86.475S) Patellar tendon strain, right, initial encounter (primary encounter diagnosis) Plan: MRI KNEE WO IVCON RIGHT (M25.561) Right knee pain, unspecified chronicity Plan: CONSULT TO ORTHOPAEDICS Office Visit on 06/26/23 MRI KNEE WO IVCON RIGHT CONSULT TO ORTHOPAEDICS PLAN Hinged knee brace for support MRI knee to evaluate integrity of patellar tendon FOLLOW-UP: No follow-ups on file. SIGNATURE: Justo Givens DO PATIENT NAME: Kylie Russo DATE: June 26, 2023 TIME: 1:36 PM documented in this encounterBarnesville Hospital03-08-2024 Instructions* Patient Instructions* Manuela Heart APRN.CNP - 06/26/2023 11:41 AM EST If you were not scheduled for your Physical Therapy Evaluation during your visit, please contact Rehabilitation and Sports Therapy: [phone]. The vehicle service agent will assist you in selecting thelocation that will best meet your needs. documented in this encounterBarnesville Hospital03-08-2024 History of Present illness Narrative* Manuela Heart APRN.CNP - 06/26/2023 11:27 AM EST This note was created using [employer]. Subjective Kylie Russo is a 77 year old female. 77 year old female with PMH RLS, DM, HTN, hyperlipidemia, CAD, asthma, SOLE, GERD, and anxiety presents for knee pain. Subacute onset of symptoms. Right knee Ongoing for a few weeks. She had experienced a couple episodes of falls at the end of April. She was seen by both her PCP and ultimately the ED as well. She was @ [facility] 05/23/23 Xray obtained of right knee and negative Steroid injections by [facility]06/12/23 She presents today related to continued pain and reduced ROM She denies that she has followed up with ortho Was hoping you would give me an knee immobilizer She lives with her son The history is provided by the patient (son). No speech language pathology assistant was used. Right knee injury: Yes Date: 05/15/2023 Right knee condition: Other see comments Right knee severity: Moderate Right knee progression: Stable Patient reports that right knee feels stable. Patient reports feeling right knee not locking and not popping. Right job related: No Right knee aggravating factors: Regular daily ambulation, bending or twisting, prolonged sitting, rapid change of direction and initial steps out of bed. Right knee alleviating factors: None. PAST MEDICAL HISTORY Diagnosis Date Abnormal mammogram, unspecified left breast BPPV (benign paroxysmal positional vertigo) 02/11/2015 BPV (benign positional vertigo) CAD (coronary artery disease) Carotid stenosis CARPAL TUNNEL BILATERRAL 08/08/2005 Coronary artery disease involving confederated salish coronary artery Dr. 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 ([facility]) 12/06/2018 Other and unspecified hyperlipidemia Other forms of migraine Other psoriasis Postsurgical percutaneous transluminal coronary angioplasty status Rheumatoid arthritis(714.0) RLS (restless legs syndrome) 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 Thoracic or lumbosacral neuritis or radiculitis, [...] ALLERGIES Aggrenox [Aspirin-Dipyridamole], Amitriptyline, Cephalexin (Bulk), Cymbalta [Duloxetine],Doxycycline, Duricef [Cefadroxil], Ephedrine, Iodine, Isolone Forte, Levaquin [Levofloxacin], Lyrica [Pregabalin], Nortriptyline, Oxycodone, Percocet [Oxycodone-Acetaminophen], and Sulfa (Sulfonamide Antibiotics) MEDICATIONS diclofenac sodium (VOLTAREN ARTHRITIS PAIN TOPICAL) Apply 2 g to affected area. lidocain-me.eohrpno-zuss-tlujx 0.5-20-0.035-5 % ptmd Apply to affected area. traMADol (ULTRAM) 50 mg tablet Take 50 mg by mouth. albuterol HFA (PROVENTIL HFA, VENTOLIN HFA) 90 mcg/actuation inhaler Q4H clonazePAM (KLONOPIN) 1 mg tablet Take 1 tablet by mouth at bedtime as needed for up to 90 days. clonazePAM (KLONOPIN) 1 mg tablet Take 1 tablet by mouth at bedtime as needed for up to 7 days. magnesium citrate 100 mg cap Take 1 capsule by mouth once daily. hydrOXYchloroQUINE (PLAQUENIL) 200 mg tablet Take 1 tablet by mouth two times a day. eghruyqeucw-ymdgtglsv-ipfdipgi (TRELEGY ELLIPTA) 200-62.5-25 mcg inhalation powder Inhale 1 Puff asinstructed once daily. amLODIPine (NORVASC) 5 mg tablet TAKE 1 TABLET BY MOUTH EVERY DAY WALKER ROLLATOR SEAT WITH 6 WHEELS - RED For ambulation pramipexole (MIRAPEX) 1 mg tablet Take 2 [...] (PROBIOTIC WITH PREBIOTIC ORAL) Take by mouth. losartan (COZAAR) 100 mg tablet Take 1 tablet by mouth once daily. hydrocortisone 2.5 % cream Apply to affected area once daily. ketoconazole (NIZORAL) 2 % shampoo aspirin 81 mg chewable tablet Take 1 tablet by mouth once daily. Cholecalciferol, Vitamin D3, 125 mcg (5,000 unit) cap Take 1 capsule by mouth once daily. multivitamin tablet Take 1 tablet by mouth once daily. traZODone (DESYREL) 50 mg tablet Take 2 tablets by mouth daily at bedtime. (Patient not taking: Reported on 06/12/2023) Biotin 1 mg tab Take 1 tablet by mouth once daily. acetaminophen (TYLENOL 8 HOUR) 650 mg CR tablet Take 1 tablet by mouth every 8 hours as needed. (Patient not taking: Reported on 06/12/2023) FAMILY HISTORY Problem Relation Age of Onset Cancer Mother breast (diagnosed mid 50's) Heart Mother valvular other (Other) Father leukemia (dx'd age 55) Asthma Paternal Grandmother Diabetes Paternal Grandmother Colon Cancer Other none other (autoimmune def) Daughter Social History Tobacco Use Smoking status: Never Smokeless tobacco: Never Vaping Use Vaping Use: Never used Substance Use Topics Alcohol use: No Drug use: No Review of Systems Constitutional: Negative for activity change, appetite change, chills, fever and unexpected weight change. Eyes: Negative for pain, redness and itching. Respiratory: Negative for apnea, cough, choking, chest tightness and shortness of breath. Cardiovascular: Negative for chest pain, palpitations and leg swelling. Gastrointestinal: Negative for abdominal pain, diarrhea, nausea and vomiting. Musculoskeletal: Positive for gait problem. Right knee pain Skin: Negative for color change, pallor, rash and wound. Allergic/Immunologic: Negative for environmental allergies, food allergies and immunocompromised state. Neurological: Negative for dizziness, facial asymmetry, light-headedness and headaches. Hematological: Negative for adenopathy. Does not bruise/bleed easily. Psychiatric/Behavioral: Negative for agitation and behavioral problems. Objective BP 127/74 Pulse 65 Temp 36.5 C (97.7 F) Resp 20 SpO2 98% Physical Exam Vitals and nursing note reviewed. Constitutional: General: She is not in acute distress. Appearance: Normal appearance. She is obese. She is not ill-appearing, toxic- appearing or diaphoretic. HENT: Head: Normocephalic and atraumatic. Right Ear: Ear canal and external ear normal. Left Ear: Ear canal and external ear normal. Nose: Nose normal. No congestion or rhinorrhea. Mouth/Throat: Mouth: Mucous membranes are moist. Pharynx: No oropharyngeal exudate or posterior oropharyngeal erythema. Eyes: General: Right eye: No discharge. Left eye: No discharge. Extraocular Movements: Extraocular movements intact. Conjunctiva/sclera: Conjunctivae normal. Pupils: Pupils are equal, round, and reactive to light. Cardiovascular: Rate and Rhythm: Normal rate and regular rhythm. Pulses: Normal pulses. Heart sounds: Normal heart sounds. No murmur heard. No friction rub. Pulmonary: Effort: Pulmonary effort is normal. No respiratory distress. Breath sounds: Normal breath sounds. No stridor. No wheezing, rhonchi or rales. Chest: Chest wall: No tenderness. Abdominal: General: Abdomen is flat. There is no distension. Palpations: Abdomen is soft. There is no mass. Tenderness: There is no abdominal tenderness. There is no right CVA tenderness, left CVA tenderness, guarding or rebound. Hernia: No hernia is present. Musculoskeletal: General: Swelling, tenderness and signs of injury present. No deformity. Cervical back: Normal range of motion and neck supple. No rigidity. Right lower leg: No edema. Left lower leg: No edema. Comments: Right knee with mild swelling noted. Limited flexion and extension Negative vagus Negative valus +neuro +sensation Ambulates with difficulty Lymphadenopathy: Cervical: No cervical adenopathy. Skin: General: Skin is warm and dry. Coloration: Skin is not jaundiced or pale. Findings: No bruising, erythema, lesion or rash. Neurological: General: No focal deficit present. Mental Status: She is alert and oriented to person, place, and time. Cranial Nerves: No cranial nerve deficit. Sensory: No sensory deficit. Motor: No weakness. Coordination: Coordination normal. Gait: Gait normal. Psychiatric: Mood and Affect: Mood normal. Behavior: Behavior normal. Thought Content: Thought content normal. Judgment: Judgment normal. Assessment and Plan ASSESSMENT/PLAN: 1. Right knee pain, unspecified chronicity - ICD9: 719.46, ICD10: M25.561 Onset end of April +injury, fell Seen by PCP Seen by ED, 05/23/23 (Xray at that time negative) Seen by Dr. Messer 06/12/23- steroid injection in knee Still having pain Need an immobilizer thing and some more imaging Discussed with patient and son that she likely has ligamentous damage Needs MRI Needs PT -consult placed here in clinic Knee immobilizer RX printed RICE therapy Discussed red flags and reasons to seek ED - KNEE IMMOBILIZER - CONSULT TO ORTHOPAEDICS - [facility] - CONSULT TO PHYSICAL THERAPY Manuela Heart APRN.TIM documented in this encounterBarnesville Hospital03-07-2024 Miscellaneous Notes* Telephone Encounter - Diamond Rushing - 06/25/2023 12:36 PM EST Patient reports changing to [facility] for her insulin. Faxed paperwork and notes to [facility] as requested. Diamond Rushing MA * Telephone Encounter - Kristin Garcia LPN - 06/25/2023 10:21 AM EST Patient called, verified name and date of , regarding insulin medication and supplies. Patient stated she got a call from Victor Hugo Acevedo stating to have her medications and supplies prescription sent over to [facility] and they will supply them. Patient states she only has 2 vials left and needs insulin. Patient then stated well she isn't sure who the medications go to because a place in [place] with a rep name Bryan keeps calling and leaving voicemail about having her prescriptions sent to themand they will mail her prescriptions to her. Patient stated she should probably call him back. Patient proceeded to say that she no longer will be using [facility] mail order anymore. Advised patient Endocrinology staff will call her back, patient verbalized understanding. Kristin Garcia LPN June 25, 2023 10:27 AM documented in this encounterBarnesville Hospital03-07-2024 Miscellaneous Notes* Telephone Encounter - Diamond Rushing - 06/25/2023 12:30 PM EST Phoned patient relayed message regarding insulin increase last basal rate from 2.50 to 2.55. Patient voiced understanding and had no further questions. Diamond Rushing MA * Telephone Encounter - Eva Nielsen MD - 06/25/2023 8:17 AM EST Medtronic data reviewed for patient- Please advise her to increase basal rate from 7.30 pm -12 am from 2.50 units/hr to 2.55 units/hr Dr. Sonny Salcedo documented in this encounterBarnesville Hospital03-06-2024 Miscellaneous Notes* Telephone Encounter - Diamond Rushing - 06/24/2023 10:23 AM EST Paperwork for insulin from [facility] received and placed on Dr Abraham desk for signature. * Telephone Encounter - Cecilia Ronquillo - 06/24/2023 8:42 AM EST Patient calls back and states there has been insurance changes, and she received a call yesterday.And she confirms this information in correct. * Telephone Encounter - Diamond Rushing - 06/24/2023 8:33 AM EST This office received a request from [facility] for diabetic supplies. This would be new for this patient, we have that she uses [facility]. We would like to verify what is correct. Diamond Rushing MA documented in this encounterBarnesville Hospital02-23-2024 Instructions* Patient Instructions* Eva Nielsen MD - 06/12/2023 9:12 AM EST Please take 1 unit for every 7.5 gms of carbs for now as before. Calculate the carbs and take adequate insulin dose- can take half dose at the start of meal and therest after completing the meal Please take correction dose of insulin for Blood glucose above 180 mg/dl- 1 unit for every 40 mg/dlabove 180mg/dl documented in this encounterBarnesville Hospital02-23-2024 History of Present illness Narrative* Diamond Rushing - 06/12/2023 8:48 AM EST Images from the original note were not included. * Eva Nielsen MD - 06/12/2023 8:16 AM EST [facility] Initial Clinic Visit Note' Referred by: Hernesto Harvey APRN.CRP My final recommendations will be communicated back to the requesting physician by way of shared medical record or letter via US mail. History of present illness: This is a 77 year old female with history of type 1 diabetes, complicated by mild nonproliferative retinopathy of bilateral retina, Class I obesity, 3 strokes (2009, 2012), Bilateral carotid artery stenosis, CAD, HLD, HTN, SOLE, GERD, RA. She is accompanied by her today, who is a type II diabetic. Both of them are new to me. She was following Dr. Palm at [facility] in the recent past, last appointment in April 2023. Prior to that, she was following with endocrinology at [facility], last appointment in October 2020 with Princess Lim APRN. 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 Zhao Other -- Wheelchair bound to to stroke Current diabetes regimen is as follows: Basal insulin for back up: lantus Glucagon:denies Humalog via Medtronic 780 G pump plus Guardian sensor Basal rate: 00:00= 1.40 0230= 1.40 0600= 1.45 0900=2.60 1930= 2.50 Total basal rate in 24 hours= 51.3 units Bolus: Insulin:carb ratio 00:00= 7.5 Sensitivity 00:00= 40 Blood glucose target= 110 mg/dL 00:00= 130 Active insulin time 2 hours carbs entered per day 80 47 g Pump info: She forgets to bolus before meals, most often recalls not taking insulin and then boluses Site change every 2.8 days. avg glucose 198 56 mg/dL CGM interpretation In target range 71%, lows 1%, high 24%, very high 4% She has no hypoglycemia awareness . Symptoms -Polyuria: no -Polydipsia: no -Weight changes: fluctuating Right knee pain due to a fall, taking steroid shots due to pain . Lifestyle -Exercise: no routine exercise due to fall leading to mobility issues -Diet: reports carb consistent diet ROS: As per HPI Past Medical History PAST MEDICAL HISTORY Diagnosis Date Abnormal mammogram, unspecified left breast BPPV (benign paroxysmal positional vertigo) 02/11/2015 BPV (benign positional vertigo) CAD (coronary artery disease) Carotid stenosis CARPAL TUNNEL BILATERRAL 08/08/2005 Coronary artery disease involving confederated salish coronary artery Dr. 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 ([facility]) 12/06/2018 Other and unspecified hyperlipidemia Other forms of migraine Other psoriasis Postsurgical percutaneous transluminal coronary angioplasty status Rheumatoid arthritis(714.0) RLS (restless legs syndrome) 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 Thoracic or lumbosacral neuritis or radiculitis, [...] Never Smokeless tobacco: Never Vaping Use Vaping Use: Never used Substance Use Topics Alcohol use: No Drug use: No Allergies ALLERGIES Allergen Reactions Aggrenox [Aspirin-D* MIGRAINES AND [...] [Oxycodone* Unknown Sulfa (Sulfonamide * Hives blisters Current Medications Current Outpatient Medications Medication Sig Dispense Refill diclofenac sodium (VOLTAREN ARTHRITIS PAIN TOPICAL) Apply 2 g to affected area. lidocain-me.zdzunqk-adwj-ypnjt 0.5-20-0.035-5 % ptmd Apply to affected area. traMADol (ULTRAM) 50 mg tablet Take 50 mg by mouth. albuterol HFA (PROVENTIL HFA, VENTOLIN HFA) 90 mcg/actuation inhaler Q4H clonazePAM (KLONOPIN) 1 mg tablet Take 1 tablet by mouth at bedtime as needed for up to 90 days. 45tablet 0 magnesium citrate 100 mg cap Take 1 capsule by mouth once daily. hydrOXYchloroQUINE (PLAQUENIL) 200 mg tablet Take 1 tablet by mouth two times a day. 180 tablet 1 vabpktuapov-piyxxesgn-hlamgzwv (TRELEGY ELLIPTA) 200-62.5-25 mcg inhalation powder Inhale 1 Puff asinstructed once daily. amLODIPine (NORVASC) 5 mg tablet TAKE 1 TABLET BY MOUTH EVERY DAY 90 tablet 3 WALKER ROLLATOR SEAT WITH 6 WHEELS - RED For ambulation 1 Each 0 pramipexole (MIRAPEX) 1 mg tablet Take 2 tablets by mouth daily at bedtime. 180 tablet 1 montelukast (SINGULAIR) 10 mg tablet Take 1 tablet by mouth daily at bedtime. 90 tablet 1 insulin lispro (HUMALOG U-100 INSULIN) 100 unit/mL injection as directed in Insulin pump up to 110 units daily. Dx E10.65 10 mL 3 atorvastatin (LIPITOR) 40 mg tablet Take 1 tablet by mouth once daily. 90 tablet 3 clopidogrel (PLAVIX) 75 mg tablet Take 1 tablet by mouth once daily. 90 tablet 3 lansoprazole (PREVACID) 30 mg capsule Take 1 capsule by mouth twice daily. 180 capsule 3 diphenhydrAMINE (BENADRYL) 25 mg capsule Please take 2 tablets an hour prior to the contrast procedure 2 capsule 0 nitroglycerin (NITROLINGUAL) 400 mcg/spray spray one every 5 minutes x3 as needed 4.9 g 3 Bacillus coagulans/inulin (PROBIOTIC WITH PREBIOTIC ORAL) Take by mouth. losartan (COZAAR) 100 mg tablet Take 1 tablet by mouth once daily. 90 tablet 1 hydrocortisone 2.5 % cream Apply to affected area once daily. ketoconazole (NIZORAL) 2 % shampoo aspirin 81 mg chewable tablet Take 1 tablet by mouth once daily. 30 tablet 11 Cholecalciferol, Vitamin D3, 125 mcg (5,000 unit) cap Take 1 capsule by mouth once daily. 90 capsule 3 multivitamin tablet Take 1 tablet by mouth once daily. 0 clonazePAM (KLONOPIN) 1 mg tablet Take 1 tablet by mouth at bedtime as needed for up to 7 days. 7 tablet 0 traZODone (DESYREL) 50 mg tablet Take 2 tablets by mouth daily at bedtime. (Patient not taking: Reported on 06/12/2023) 60 tablet 2 Biotin 1 mg tab Take 1 tablet by mouth once daily. 30 tablet 0 acetaminophen (TYLENOL 8 HOUR) 650 mg CR tablet Take 1 tablet by mouth every 8 hours as needed. (Patient not taking: Reported on 06/12/2023) No current facility-administered medications for this visit. Labs Hemoglobin A1C Date Value Ref Range Status 12/29/2022 6.7 (H) 4.3 - 5.6 % Final Comment: [place] Diabetes Association guidelines indicate that patients with HgbA1c in the range 5.7-6.4% are at increased risk for development of diabetes, and intervention by lifestyle modification may be beneficial. HgbA1c greater or equal to 6.5% is considered diagnostic of diabetes. Albumin/Creat Ratio Date Value Ref Range Status 06/12/2022 20 <30 mg/g Final Comment: Adult Male and Female Nephrotic Criteria: <30 mg/g is considered normal to mildly increased 30-300 mg/g is considered moderately increased >300 mg/g is considered severely increased KDIGO. (2013). KDIGO 2012 Clinical Practice Guideline for the Evaluation and Management of Chronic Kidney Disease. Official Journal of the International Society of Nephrology, 3(1), 1-150. Cholesterol, Total Date Value Ref Range Status 06/12/2022 137 <200 mg/dL Final Comment: <200 mg/dL, Desirable 200-239 mg/dL, Borderline high >239 mg/dL, High HDL Cholesterol Date Value Ref Range Status 06/12/2022 62 >39 mg/dL Final Comment: 40-59 mg/dL, Acceptable >59 mg/dL, High: Negative risk factor for coronary heart disease <40 mg/dL, Low: Positive risk factor for coronary heart disease LDL Cholesterol Date Value Ref Range Status 06/12/2022 61 <100 mg/dL Final Comment: <100 mg/dL, Optimal 100-129 mg/dL, Near optimal/above optimal 130-159 mg/dL, Borderline high 160-189 mg/dL, High >189 mg/dL, Very high Secondary prevention optimal LDL Cholesterol levels are recommended to be < 70 mg/dL Triglyceride Date Value Ref Range Status 06/12/2022 70 <150 mg/dL Final Comment: <150 mg/dL, Normal 150-199 mg/dL, Borderline high 200-499 mg/dL, High >499 mg/dL, Very high Vitamin D 25 Hydroxy (ng/mL) Date Value 02/25/2023 34.5 05/19/2019 44.9 02/28/2019 39.9 11/16/2018 29.4 03/21/2014 41.2 05/09/2013 46.7 Vitals: 06/12/23 0813 BP: 128/74 Pulse: 67 Temp: 37 C (98.6 F) TempSrc: Temporal Artery SpO2: 98% Weight: 81.6 kg (180 lb) Height: 154.9 cm (5' 1) Physical Exam GENERAL: Well nourished, obese, well hydrated, in no distress and oriented x 3. In wheel chair, examination was limited EYES: no thyroid eye signs, EOMI NECK: , no tenderness and adenopathy THYROID: Non-tender to palpable, no evidence of goiter, no nodules palpable LUNGS: Unlabored on room air HEART: regular rate and rhythm Abdomen: pump sites without lipodystrophy NEURO: normal strength, no tremor SKIN: facial hair noted OTHER: Acanthosis None Assessment and Plan This is a 77-year-old female with past medical history of type 1 diabetes mellitus on Medtronic 780G pump with guardian sensor, retinopathy, peripheral neuropathy and cardiovascular disease (CAD s/p PTCA) , hypertension, CVA, gastroparesis presenting for evaluation and treatment. She also has a history of rheumatoid arthritis -A1c 6.7% in 12/2022 -eGFR 90 in 12/2022 -Will not change current pump settings- it appears that she has widely fluctuating BG but her overall control is acceptable with very less hypoglycemic episodes. I appeared to have less insight into ICR and hence I explained her in very detail about taking medication accurately to avoid complications from hyperglycemia but to avoid incidence of hypoglycemia as the first step. Advised to calculate the carbs before each meal and take adequate insulin dose accordingly- can take half dose at the start of meal and the rest after completing the meal, especially if she has good appetite and intends to eat the whole meal. If appetite is low, advised to eat first and then take insulin according to the amount of carbs consumed. Advised her to take correction dose of insulin for Blood glucose above 180 mg/dl- 1 unit for every 40 mg/dl above 180mg/dl -Call if blood sugar consistently <80 mg/dl or >200 mg/dl -Lifestyle modifications with diet and activity as tolerated have been discussed with the patient --Will refer patient to nutritional counseling on next visit -Labs before next visit in 3 months -I will discuss with her about glucagon for hypoglycemia treatment on next visit # Hypertension -Today BP 128/74 -Currently antihypertensive regimen: Amlodipine 5 mg once daily # Extensive cardiovascular history, including CAD and CVA -On Lipitor 40 mg once daily Lipid panel in May 2022 revealing total cholesterol 137 mg/dL, LDL 61 mg/dL, triglycerides 70 mg/dL #Obesity Class II with serious comobidity -Lifestyle modifications and diabetic control discussed as above RTC in 3 months I spent a total of 75 minutes on the date of the service which included preparing to see the patient, tkjq-eb-jpqd patient care, completing clinical documentation, obtaining and/or reviewing separately obtained history, performing a medically appropriate examination, counseling and educating the pat ient/family/caregiver, ordering medications, tests, or procedures, and independently interpreting results (not separately reported). Eva Nielsen MD Endocrinology Associate Staff [facility] [place] [phone] documented in this encounterBarnesville Hospital02-14-2024 Miscellaneous Notes* Telephone Encounter - Hernesto Harvey APRN.CNP - 06/03/2023 7:35 AM EST Gildardo Harvey APRN.CNP * Telephone Encounter - Nara Argueta RN - 06/02/2023 9:44 AM EST Patient calls and notified of below. Patient states that she has used gel before. Patient states that she did see Dr. Messer yesterday and he had given her a shot in the knee. Nara Argueta RN * Telephone Encounter - Rosalba Ren RN - 06/02/2023 8:13 AM EST Called and left a voicemail for the Patient to call back and ask for a nurse to receive the providers message. Rosalba Ren RN * Telephone Encounter - Hernesto Harvey APRN.CNP - 06/01/2023 3:58 PM EST Xray and consult to orthopedics ordered. With her seeing pain mgmt, I am not supposed to order any controlled substances unless approved by them. Has she ever tried an anti-inflammatory gel? Thank you Hernesto Harvey APRN.TIM * Telephone Encounter - Rosalba Ren RN - 06/01/2023 12:19 PM EST Pt called in and reports she was in to see Hernesto Wes on 05/18/23 and her knee pain has gotten much worse. She states the pain is a 10/10 constant ache. The pain will go up and down her leg and sometimes into her back because of her arthritis. She states she isn't able to bend the knee or lift her leg to get it into bed. She states she has mainly been staying in bed. Pt states her Tramadol hasn't been helping. She has tried heat and ice and they didn't help and she said the pressure from the ice made it worse. She said the knee and up her leg is swelling and had he put on an STEFFANY wrap and she had a Lidoderm patch on underneath, which she said doesn't really help. Pt was instructed to elevate leg. She states she is getting a shot on 06/12/[address] Messer in her back. She asks if provider would like to order anything for her that she send it to [facility] in [place]. I also told her tocall Dr Messer's office to see if there is anything he could do. documented in this encounterBarnesville Hospital02-02-2024 Miscellaneous Notes* Telephone Encounter - Michelle Baird Ma - 05/22/2023 1:34 PM EST Patient notified. * Telephone Encounter - Hernesto Harvey APRN.CNP - 05/22/2023 11:30 AM EST Arthritic changes to hip only on xray. No fracture noted to hip or spine. Yes she should be using the voltaren gel as ordered by pain management. Thank you Hernesto Harvey APRN.TIM * Telephone Encounter - Michelle Baird Ma - 05/22/2023 10:39 AM EST X-ray's printed and given to provider for review. * Telephone Encounter - Nara Argueta RN - 05/22/2023 9:44 AM EST Patient calls and states that she right hip x ray done on 05/18/2023 at [facility]. Patient asking about the results of these? Patient also asking if there is anything she can put on the right knee for the pain? Patient does have Voltaren cream that Dr. Messer had prescribed. Patient asking is she can use that cream? Please review and advise, Nara Argueta RN documented in this encounterBarnesville Hospital12-20-2023 Procedure [facility]12-20-2023 Procedure [facility]11-28-2023 History of Present illness Narrative* Charly Buchanan, RT(R) - 03/17/2023 9:30 AM EST Radiology Service Progress Note PATIENT NAME: Kylie Russo DATE OF SERVICE: March 17, 2023 TIME: 9:41 AM PATIENT IDENTITY VERIFICATION COMPLETED USING TWO (2) IDENTIFIERS: Name and Date of confirmedby patient verbally. FALL SCREENING: Has the patient had 2 falls in the last year or 1 fall with injury or currently using an Ambulatory Assistive Device (Walker, Cane, Wheelchair, Crutches, etc.)? Yes, Patient High Riskfor Falls What interventions were put in place to prevent falls during this visit? Increased Observations by Caregivers PATIENT GENDER DATA: Female. status: : No status: NO. PATIENT RELEVANT IMPLANT DATA REVIEWED: Not Applicable RADIOLOGY DEPARTMENT: Bone Density PERIPHERAL IV DATA: Not applicable SIGNED BY: RT Kelly(R) March 17, 2023 9:41 AM documented in this encounterBarnesville Hospital11-21-2023 Miscellaneous Notes* Telephone Encounter - Mia Ni LPN - 03/10/2023 8:10 AM EST Spoke with pt and information listed below given. Pt verbalizes understanding. Mia Ni LPN * Telephone Encounter - Choco Cummins MD - 03/09/2023 6:58 PM EST RSV vaccine is recommended, and should be obtained from her pharmacy. * Telephone Encounter - Mia Ni LPN - 03/09/2023 9:29 AM EST Pt called to see if she is to get the RSV vaccine. Declined apt int he office to discuss. Reports Hernesto knows what all she has going on. Pt will need to be instructed to get at the pharmacy. Mia Ni LPN documented in this encounterBarnesville Hospital11-15-2023 Miscellaneous Notes* Telephone Encounter - Rylee Wheat - 03/04/2023 11:47 AM EST Patient has been identified by name and date of : No Patient phones for refill(s): Requested Prescriptions Pending Prescriptions Disp Refills hydrOXYchloroQUINE (PLAQUENIL) 200 mg tablet [Pharmacy Med Name: HYDROXYCHLOROQUINE 200 MG TAB] 180tablet 1 Sig: take 1 tablet by mouth twice a day Date of last office visit in primary care: 01/05/2023 Date of next office visit in primary care: 04/06/2023 Last 2 Encounter Wt Readings: Date: Wt: 02/23/2023 84.8 kg (187 lb) 01/05/2023 85.7 kg (189 lb) Previous labs/tests for medication: Not applicable Please advise. Thank you. Rylee Wheat. documented in this encounterBarnesville Hospital11-06-2023 Miscellaneous Notes* Telephone Encounter - Wally Haynes RN - 02/23/2023 3:17 PM EST Phone and spoke with Brittney (nurse) at Dr. Yann Garcia DO at [facility]. . Verifiedthat this was the correct office and fax number . Faxed paperwork as requested. Fax confirmation received. Wally Haynes R.N. documented in this encounterBarnesville Hospital11-06-2023 Instructions* Patient Instructions* Roland Grajeda MD - 02/23/2023 2:48 PM EST Please ensure that you are taking adequate calcium and vitamin D through your diet, and supplement as needed with bfvx-xxb-xcnfdig tablets. You should be getting a total of calcium 1000mg daily and vitamin D 800-1000 international units daily through diet and supplements. Foods and drinks with calcium Food Calcium in milligrams Milk (skim, 2%, or whole; 8 oz [240 mL]) 300 Yogurt (6 oz [168 g]) 250 Woodson juice (with calcium; 8 oz [240 mL]) [...] 50 to 135 Almonds (24 whole) 70 [place] (1 medium) 60 Selected food sources of vitamin D[1] Food Amount per serving In international units (IU) In micrograms Cod liver oil, 1 tablespoon (15 mL) 1360 34 [place] (sockeye), cooked, 3 ounces (85 g) 380 [...] D-fortified, 8 ounces (240 mL) 100 2.5 Woodson juice fortified with vitamin D, 8 ounces (240 mL) (check product labels, as amount of added vitamin D varies) 100 2.5 Yogurt, fortified with vitamin D, 6 ounces (180 mL) (more heavily fortified yogurts provide more ofthe DV) 80 2 Margarine, fortified, 1 tablespoon (15 g) 60 1.5 Sardines, canned in oil, drained, 2 sardines 46 1 Liver, beef, cooked, 3.5 ounces (100 g) 46 1 Pbvrm-jz-aoo cereal, fortified with vitamin D, 6 to 8 ounces (227 g) (more heavily fortified cereals might provide more of the DV) 40 1 Egg, 1 whole (vitamin D is found in yolk) 25 0.6 Cheese, [place], 1 ounce (29 g) 6 0 In [...] Standard Reference, Release 2017. documented in this encounterLinda Ville [id number] History of Present illness Narrative* Roland Grajeda MD - 02/23/2023 1:53 PM EST On 02/23/2023, I had the pleasure of seeing Kylie Russo at the [facility]. Kylie Russo was referred by Hernesto Harvey for an opinion and advice regarding seropositive RA. My findings and final recommendations will be communicated to the requesting health care provider by way of the shared medical record for internal providers or letter via the [employer] for external providers. Chief complaint: Seropositive RA HPI: To review, Kylie Russo is a 77 year old female [...] the certain PIPs that hasn't gone on forvery long - In spring, decreased HCQ to one daily per Dr. Clinton Farrar - In July, diagnosed with ILD. Sees Dr. 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 - In Jan, advised to resume HCQ once daily per vp of customer experience strategy (but didn't say why). - Today, reports [...] TUNNEL BILATERRAL 08/08/2005 Coronary artery disease involving confederated salish coronary artery Dr. 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 ([facility]) 12/06/2018 Other and unspecified hyperlipidemia Other forms [...] blisters MEDICATIONS: Current Outpatient Medications Medication Sig jmvcaswekpp-wfgmkkdqd-rcqofetb (TRELEGY ELLIPTA) 200-62.5-25 mcg inhalation powder Inhale 1 Puff asinstructed once daily. traZODone (DESYREL) 50 mg tablet [...] Test blood sugar(s) 6 times daily. Dx: Type1 DM - Controlled E10.9 Insulin: Yes Cholecalciferol, [...] (autoimmune def) Daughter SOCIAL HISTORY: Lives in [place] with spouse. 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 Son in law is a pediatric physician Tobacco use: None Alcohol use: None Drug use: None PHYSICAL EXAM: VITALS: Blood pressure 134/76, pulse 67, temperature 36.6 C (97.9 F), temperature source Oral, height 154.9 cm (5' 1), weight 84.8 kg (187 lb). CONSTITUTIONAL: Well-appearing, [...] enbrel, and orencia. However, with significantly improved symptomss/p multiple strokes. serologies unremarkable but explained hx is still c/w RA. Had been stableon HCQ but then was off for a [...] perspective but to let us know if thepulmonologist feels like additional tx is needed from the ILD standpoint so that we can provide input as needed - Continue pulmonary management of ILD 2. History of osteopenia: Multiple remote fractures, not clearly fragility fractures per history. Remote use of fosamax - per the medication list although she doesn't recall this. DEXA withnormal BMD, Nov DXA with osteopenia - Continue calcium and vitamin D supplementation - Check vitamin D level. Notify of results via MyChart - Check DEXA. Notify of results via [facility] 3. General health maintenance: - Advised to continue follow-up with PCP for routine health maintenance and malignancy screening Follow-up in 5, 10 & 20 months with Alberto and 15 months with . Thank you for allowing me to participate in the care of your patient. Roland Grajeda MD I spent a total of 65 minutes on the date of the service which included preparing to see the patient, [id number] patient care, completing clinical documentation, obtaining and/or reviewing separately obtained history, performing a medically appropriate examination, counseling and educating the pat ient/family/caregiver, ordering medications, tests, or procedures, independently interpreting results (not separately reported), and communicating results to the patient/family/caregiver. documented in this encounterBarnesville Hospital10-16-2023 History of Present illness Narrative* Clinton Farrar Jr., DO - 02/02/2023 10:00 AM EDT Images from the original note were not included. Subjective History of Present Illness Presence of Pain: complains of pain/discomfort Select Pain Scale: DVPRS (Defense and Veterans Pain Rating Scale) (Adult- Cognitively Intact) DVPRS: Rest: 8- severe pain Select Pain Scale: DVPRS (Defense and Veterans Pain Rating Scale) (Adult- Cognitively Intact). Totaltime spent in this encounter was 27 minutes. Patient is being evaluated for an unstable chronic illness that increase morbidity and mortality. All questions answered for the patient and concrete smoother. Hand cramps are sometimes worse since falling and shr can not wear her wedding ring. Joint pain is everywhere. Back pain is yeah. Long standing and worse since her fall. Patient is here for 4 month F/U.Patient states that she has not been doing [...] temperature source Temporal, height 1.6 m (5' 3), weight 83 kg (182 lb 15.7 oz), [...] Weakness present. Gait: Gait abnormal. Comments: Decreased technical support consultant strength both hands. Walker Neurological Exam Mental Status Alert. Oriented to person, place, and time. Cranial Nerves CN II: Vision test: glasses. CN III, IV, : Extraocular movements intact bilaterally. Pupils equal round and reactive to light bilaterally. Gait Abnormal gait. Decreased technical support consultant strength both hands. Walker. Assessment and Plan Encounter Diagnoses Name Primary? Rheumatoid arthritis of multiple sites with negative rheumatoid factor Yes History of rheumatoid arthritis History of stroke penitentiary (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 of aspirin penitentiary current use of non-steroidal anti-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 (NSAID) penitentiary current use of systemic steroids Long-term use [...] me in 6 months documented in this encounterOhio[facility]-2023 Evaluation + Plan note * Assessment & Plan Note - Ivan Quan MD - 01/08/2023 1:51 PM EDT Associated Problem(s): Asthma - Nonsmoker; Hx of [...] triple tx Trelegy or other inhaler regimen, iffeasible; cont. albuterol as needed; use spacer - [...] - Influenza, pneumococcal, COVID19 vaccines recommended, updated [facility]09-21-[facility] Miscellaneous Notes* Assessment & Plan Note - Ivan Quan MD - 01/08/2023 1:51 PM EDTAssociated Problem(s): Asthma - Nonsmoker; Hx of Asthma [...] triple tx Trelegy or other inhaler regimen, iffeasible; cont. albuterol as needed; use spacer - [...] - Influenza, pneumococcal, COVID19 vaccines recommended, updated * Assessment & Plan Note - Ivan Quan MD - 01/08/2023 1:44 PM EDT Associated Problem(s): Pulmonary fibrosis - had CT [...] for interstitial lung disease. 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 1.5 cm calcified [...] SSA, SSB, SCL70, CCP, RF, ANCAs. MPO, HI# - Negative. - 12/04/2022 LABS: CK 64 [...] further evaluation, management pending results, clinical course. * Assessment & Plan Note - Ivan Quan MD - 01/08/2023 1:44 PM EDT Associated Problem(s): SOLE on CPAP Had sleep study and given CPAP yrs - unable to use, tolerate; also given O2 HS subseq. * Assessment & Plan Note - Ivan Quan MD - 01/08/2023 1:44 PM EDT Associated Problem(s): Restrictive lung disease (Resolved 01/08/2023) [...] not exclude asthma, RAD. documented in this encounterOhiohealth [facility] Center09-21-2023 Evaluation + Plan note * Assessment & Plan Note - Ivan Quan MD - 01/08/2023 1:44 PM EDT Associated Problem(s): Pulmonary fibrosis - had CT [...] for interstitial lung disease. 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 1.5 cm calcified [...] SSA, SSB, SCL70, CCP, RF, ANCAs. MPO, HI# - Negative. - 12/04/2022 LABS: CK 64 [...] evaluation, management pending results, clinical course. T [facility] [id number] Evaluation + Plan note* Assessment & Plan Note - Ivan Quan MD - 01/08/2023 1:44 PM EDTAssociated Problem(s): SOLE on CPAP Had sleep study and given CPAP yrs - unable to use, tolerate; also given O2 HS subseq. T [facility] [id number] Evaluation + Plan note* Assessment & Plan Note - Ivan Quan MD - 01/08/2023 1:44 PM EDTAssociated Problem(s): Restrictive lung disease (Resolved 01/08/2023) May [...] etc). Results do not exclude asthma, RAD. [facility] [id number] History of Present illness Narrative* Lesvia Herrmann - 01/08/2023 1:40 PM EDT Do you smoke?- never Oxygen use ___no___ patient is benefiting from oxygen use. Do you have a CPAP- Cpap lives in [facility] Most recent CT - 12/04/22 Most recent [...] min walk, PFT all completed on 12/04/22 * Ivan Quan MD - 01/08/2023 1:40 PM EDT Patient is a 77 y.o. female who came to be evaluated and managed for poss ILD NSIP, Pulmonary HeartDisease (Secondary pulmonary arterial hypertension) . ICD-10-CM 1. Pulmonary fibrosis J84.10 EXERCISE-6 MIN. WALK PFT COMPLETE AMB REFERRAL TO PULMONARY REHAB 2. Restrictive lung disease J98.4 EXERCISE-6 MIN. WALK PFT COMPLETE 3. SOLE on CPAP G47.33 Z99.89 4. Uncomplicated asthma, unspecified asthma severity, unspecified whether persistent J45.909 EXERCISE-6 MIN. WALK PFT COMPLETE Cvyifgykyyr-Dakubtyzb-Geohjl (Trelegy Ellipta) 200-62.5-25 MCG/ACT Aerosol Powder, breath activated DISCONTINUED: Iyywqtwrvgq-Xztapkjkq-Wroiyc (Trelegy Ellipta) 200-62.5-25 MCG/ACT Aerosol Powder, breath [...] triple tx Trelegy or other inhaler regimen, iffeasible; cont. albuterol as needed; use spacer - [...] pneumococcal, COVID19 vaccines recommended, updated Relevant Medications Jjwiwxhhald-Vpwgsrpwt-Ciplfn (Trelegy Ellipta) 200-62.5-25 MCG/ACT Aerosol Powder, breath [...] for interstitial lung disease. 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 1.5 cm calcified [...] SSA, SSB, SCL70, CCP, RF, ANCAs. MPO, HI# - Negative. - 12/04/2022 LABS: CK 64 [...] - Take as directed ALBUTEROL SULFATE NEBU [id number] Amara Damari Troy 11-22-2009 [facility] ([id number]), Disp: , Rfl: amLODIPine 5 MG Tab [...] , Rfl: Continuous Blood Gluc Sensor (FREESTYLE XANDER 14 DAY SENSOR) [facility], , Disp: , Rfl: Diclofenac Sodium 1 % Gel gel, diclofenac VOLTAREN 1 % GEL apply topically twice daily as needed DICLOFENAC SODIUM [id number] Leandra Whitney RN 01-31-2014 [facility] ([id number]), Disp:, Rfl: Diclofenac Sodium 1 % Gel gel, apply 3 grams to THE PAINFUL AREA topically once daily for 28 DAYS, Disp: , Rfl: docusate 100 MG capsule, Take 1 capsule by mouth 2 times daily., Disp: , Rfl: ergocalciferol 1.25 MG (04185 UT) capsule, Take by mouth., Disp: , Rfl: Owzchvexqsw-Hxoolotai-Auwqss (Trelegy Ellipta) 200-62.5-25 MCG/ACT Aerosol Powder, breath [...] , Rfl: Insulin Syringe-Needle U-100 (INSULIN SYRINGE 1CC/31GX5/16) 31G X 5/16 1 ML Misc, use as directedif pump fails up to 6 times daily, Disp: , Rfl: lansoprazole [address] capsule, , Disp: , Rfl: losartan 100 MG tablet, , Disp: , Rfl: Multiple Vitamin (MULTI-VITAMINS) Tab, MULTIPLE VITAMIN MULTIVITAMINS TABS One tablet by mouth daily MULTIPLE VITAMIN [id number] Amara M Sydni 11-22-2009 [facility] ([id number]), Disp: , Rfl: nitroGLYCERIN 0.4 MG/SPRAY Solution, nitroglycerin NITROLINGUAL 0.4 MG/SPRAY SOLN 1 spray under tongue every 5min up to 3 X (400mcg per spray) NITROGLYCERIN [id number] Leon Seaman MD 11-30-2012 Debora Myers RN [facility] [facility] ([id number]), Disp: , Rfl: pramipexole 1 MG tablet, [...] mouth daily as needed., Disp: , Rfl: Mrvmkweljdv-Rceshvspe-Itjsnx (Trelegy Ellipta) 200-62.5-25 MCG/ACT Aerosol Powder, breath [...] you have a CPAP- Cpap lives in [email or web address] Most recent CT - 12/04/22 Most recent [...] kg (183 lb) Height: 1.6 m (5' 3) Vital Signs Reviewed as noted. Physical Exam [...] notes, results, interpreted tests, imaging today before seeingthe pt; reviewed and discussed w/ pt, questions [...] technically difficult study; Normal left, right heart function(LVEF 70%, mild diastol dysfunction), Mod. Aortic valve [...] for interstitial lung disease. 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 1.5 cm calcified lesion in the spleen. FINDINGS Lung parenchyma and airways: The central airways are patent. The bilateral lungs are remarkable fordiffuse fine reticular opacities with peripheral lung and [...] imaged thyroid gland is normal. No supraclavicular oraxillary lymphadenopathy. There are multiple borderline enlarged mediastinal lymph nodes, likely reactive. Immunization Administrations COVID-19 bivalent vaccine ([employer]) 12yr +, 30mcg/0.3mL 01/03/2022 (76 y.o.) COVID-19 monovalent vaccine (Pfizer) 12yr +, 30mcg/0.3mL 07/30/2021 (75 y.o.) COVID-19 monovalent vaccine, mRNA, Pfizer, 0.3 ML 06/06/2020 (74 y.o.) 06/28/2020 (74 y.o.) 01/13/2021(75 y.o.) Return in about 6 months (around [...] have updated where appropriate, and all reflect currentmedical decision making from today's encounter. Note: This dictation was generated using [employer] voice recognition software. Please excuse any typographical, grammatical or spelling errors that may have occurred using the system Ivan Rodriguez MD, MPH, [facility]Critical [facility] 01/08/2023 documented in this encounterOhiohealth [facility]09-18-2023 History of Present illness Narrative* Hernesto Harvey APRN.CROP AND SOIL TECHNICIAN - 01/05/2023 10:53 AM EDT CC: Patient presents with: Recheck: Follow up HPI Kylie Russo is a 77 year old female who presents today for routine follow up. HTN: Ms. Russo indicates that she is feeling well and denies any symptoms referable to elevated blood pressure. Specifically denies headache, chest pain, palpitations, and peripheral edema. Patient denies any side effects of her medication(s) and is compliant with their regimen. She does not checkBP's generally. Kylie denies regular aerobic exercise. She watches her diet for sodium, low fat and low cholesterol most of the time. Last 3 Encounter BP Readings: Date: BP: 01/05/2023 128/68 11/24/2022 132/78 09/18/2022 132/72 Chronic pain with previous diagnosis of RA. Recent vp of customer experience strategy does not feel she has this so scheduled with new Cork Painter And Grader and sees Dr. Grajeda in February for a second opinion. We are prescribing the hydroxychloroquine until seen by Dr. Grajeda. When previously vp of customer experience strategy decreased it, patient reported increase in pain so previous dosage initiated. ILD: Was seeing [facility] who felt the RA was resulting in her lung concerns but is now seeing a new shotgun shell reprinting unit operator she feels is very thorough and just [...] 10/18/2020 7.3 ) Wants to see new speedboat driver as her recent one has had issues [...] TUNNEL BILATERRAL 08/08/2005 Coronary artery disease involving confederated salish coronary artery Dr. 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 ([facility]) 12/06/2018 Other and unspecified hyperlipidemia Other forms of migraine Other psoriasis Postsurgical percutaneous transluminal coronary angioplasty status Rheumatoid arthritis(714.0) RLS (restless legs syndrome) 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 Dx: Type1 DM - Controlled E10.9 Insulin: Yes Cholecalciferol, [...] current and medications and schedule with [facility] speedboat driver. We should be gettingone in [place] but I am unsure when. 2. Hypertension, [...] - continue hydroxychloroquine until seen by new vp of customer experience strategy - continue with regular eye exams. 5. Left hip pain - ICD9: 719.45, ICD10: M25.552 - we will fax ortho consult, wherever patient would like to go. There are multiple options in [place] that are not part of [facility] Prescription instructions reviewed with patient as applicable. Potential red flag symptoms discussed with the patient. Reviewed appropriate action plan to take if red flag symptoms occur. Patient agreeable to treatment plan. Hernesto Harvey APRN.CNP documented in this encounterBarnesville Hospital08-30-2023 Miscellaneous Notes* Telephone Encounter - Hernesto Harvey APRN.CNP - 12/17/2022 6:52 PM EDT PDMP website checked and validated. All prescriptions have been APPROPRIATELY filled. No suspiciousactivity was identified. 12/17/2022 by Hernesto Harvey APRN.CROP AND SOIL TECHNICIAN * Telephone Encounter - Isidra Mcneil LPN - 12/17/2022 1:00 PM EDT Patient has been identified by name and date of : Patient phones for refill(s): Requested Prescriptions Pending Prescriptions Disp Refills clonazePAM (KLONOPIN) 1 mg tablet 45 tablet 0 Sig: Take 1 tablet by mouth at bedtime as needed for up to 90 days. 04/03/22- Needs renewed Date of last office visit in [...] was ordered. Please advise. documented in this encounterBarnesville Hospital08-22-2023 Miscellaneous Notes* Telephone Encounter - Rosalba Ren RN - 12/09/2022 3:14 PM EDT Pt called in and reports she is going to be dropping off paperwork today from Specialist [facility] provider wanted her to go to. documented in this encounterBarnesville Hospital08-18-2023 History of Present illness Narrative* Melissa Meeks - 12/05/2022 3:32 PM EDT POPULATION HEALTH NAVIGATION OUTREACH Action/FYI 2nd call, [...] 05, 2022 3:32 PM documented in this encounterBarnesville Hospital08-17-2023 Miscellaneous Notes* Result Encounter Note - Ivan Quan MD - 12/04/2022 11:00 AM EDT - 12/04/2022 Echocardiogram reviewed: technically difficult study; Normal left, right heart function(LVEF 70%, mild diastol dysfunction), Mod. Aortic valve sclerosis w/ mild ; No pulmonary hypertension. - consider routine referral to cardiology for ffup of mild Aortic Stenosis Will discuss details further during follow-up visit. documented in this encounterOhiohealth [facility]08-17-2023 Progress note* Result Encounter Note - Ivan Quan MD - 12/04/2022 11:00 AM EDT - 12/04/2022 Echocardiogram reviewed: technically difficult study; Normal left, right heart function(LVEF 70%, mild diastol dysfunction), Mod. Aortic valve sclerosis w/ mild ; No pulmonary hypertension. - consider routine referral to cardiology for ffup of mild Aortic Stenosis Will discuss details further during follow-up visit. [facility] Procedure note* Ivan Quan MD - 12/04/2022 9:00 AM EDTAssociated Order(s): PFT COMPLETE Procedure(s): PFT COMPLETE Summary: good 12/04/2022 Kylie Russo is a 77 y.o. female, Date [...] spirometry, spirometry with bronchodilator response, lung volumes, Diffusioncapacity and Flow Volume Loop were performed during [...] above report was entered in part using [employer] voice recognition medical dictation software. Although I have reviewed this report for accuracy, certain words and phrases may not be entered as intended. Please excuse typographical and grammatical errors.) [facility]08-17-[facility] Procedure note* Ivan Quan MD - 12/04/2022 9:00 AM EDTAssociated Order(s): EXERCISE-6 MIN. WALK Procedure(s): EXERCISE-6 MIN. [...] Required or Qualified for Oxygen Supplementation: NO. [facility]08-17-[facility] Procedure note* Ivan Quan MD - 12/04/2022 9:00 AM EDTAssociated Order(s): PFT COMPLETE Procedure(s): PFT COMPLETE Summary: good 12/04/2022 Kylie Russo is a 77 y.o. female, Date [...] spirometry, spirometry with bronchodilator response, lung volumes, Diffusioncapacity and Flow Volume Loop were performed during [...] above report was entered in part using [employer] recognition medical dictation software. Although I have reviewed this report for accuracy, certain words and phrases may not be entered as intended. Please excuse typographical and grammatical errors.) * Ivan Quan MD - 12/04/2022 9:00 AM EDTAssociated Order(s): EXERCISE-6 MIN. WALK Procedure(s): EXERCISE-6 MIN. [...] for Oxygen Supplementation: NO. documented in this encounterOhiohealth [facility]08-15-2023 Miscellaneous Notes* Telephone Encounter - Rylee Alvarado LPN - 12/02/2022 1:21 PM EDT Patient has been identified by name and [...] you. Rylee Alvarado LPN documented in this encounterBarnesville Hospital08-15-2023 History of Present illness Narrative* Melissa Meeks - 12/02/2022 11:42 AM EDT POPULATION HEALTH NAVIGATION OUTREACH Action/FYI 2nd call, full Patient Identified by Name and : NO Outreach Outcome/Action Unable to reach patient: Phone number not valid / voicemail full Plastychart message sent Did you use a PCP [...] 02, 2022 11:42 AM documented in this encounterBarnesville Hospital08-07-2023 History of Present illness Narrative* Hernesto Harvey APRN.CROP AND SOIL TECHNICIAN - 11/24/2022 7:21 AM EDT CC: Patient presents with: Recheck: Follow up, L leg pain from fall HPI Kylie Russo is a 77 year old female [...] when laying in bed. Described as a constantache down her entire leg. Recent xray ordered by other provider showing no acute abnormality and maintained joint spaces. Does get injections by Dr. Messer for chronic back pain and is over due but feels this pain is different than chronic. Denies any previous injury, new weakness, numbness, or tingling. History of, RA, CVA, and chronic weakness. Uses a rollator for ambulation because of her chronic weakness, pain, and to prevent falls.Rollator was hit by a tree and crushed. She is in need of a new one. Rheumatoid Arthritis and Interstitial Lung Disease. Months ago, pulmonology at [facility] felt her lung concerns were directly related to her autoimmune disorder. Wanted her plaquenil restarted at previous dose as this was decreased by previous vp of customer experience strategy as he felt this was not indicated. At last appointment her hydroxychlorquine was restarted at 200mg BID at shotgun shell reprinting unit operator recommendations, continued shortness of breath, and increase in her chronic joint pain. Patient reports she gets regular eye exams because of her plaquenil treatment. Patient unsure if joint pain or shortness of breath has improved because of the left hip causing somuch pain and unable to do much physical activity as a result. Now seeing Ivan for pulmonologywhich she feels she will continue with as he is thorough and has follow up appointment in Decemberafter multiple diagnostics are completed. Has establishing appointment [...] TUNNEL BILATERRAL 08/08/2005 Coronary artery disease involving confederated salish coronary artery Dr. 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 ([facility]) 12/06/2018 Other and unspecified hyperlipidemia Other forms of migraine Other psoriasis Postsurgical percutaneous transluminal coronary angioplasty status Rheumatoid arthritis(714.0) RLS (restless legs syndrome) 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 Dx: Type1 DM - Controlled E10.9 Insulin: Yes Cholecalciferol, [...] in symptoms and difficulty performing typical daily tasks.- Patient declined PT at this time but [...] continue with plans to establish with new vp of customer experience strategy - WALKER ROLLATOR SEAT WITH 6 WHEELS [...] symptoms occur. Patient agreeable to treatment plan. Hernesto Harvey APRN.CNP documented in this encounterBarnesville Hospital08-01-2023 History of Present illness Narrative* Manuela Thomas APRN.CNP - 11/18/2022 10:27 AM EDT Heart, Vascular & Thoracic [place] Department of Vascular Surgery VIRTUAL VIDEO VISIT ESTABLISHED OUTPATIENT VISIT SERVICE DATE: 11/18/2022 Patient: Kylie Russo SERVICE TIME: 11:18 AM : 1945 This is a virtual video visit. It required patient-provider interaction for the medical decision making as documented below. Kylie Russo has consented to this video encounter. I have communicated my name and active licensure. The patient's identity and physical location wereverified at the time of this visit. Either the patient or their legal financial services representative has been informed of the risks and benefits of -- and alternatives to -- treatment through a remote evaluation andconsents to proceed with the evaluation remotely. Kylie Russo is a 77 year old female seen for Carotid Stenosis. CHIEF COMPLAINT Follow-up Carotid Stenosis; Carotid US done 11/11/22 HISTORY OF PRESENT ILLNESS Kylie Russo is a 77 year old female for routine follow-up of her carotid disease, for which no previous intervention has been performed. Bridger saw Dr. Arredondo early 2021 to establish [...] she returns today for routine noninvasive follow-up. Bridger requested a virtual visit today, as she [...] TUNNEL BILATERRAL 08/08/2005 Coronary artery disease involving confederated salish coronary artery Dr. 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 ([facility]) 12/06/2018 Other and unspecified hyperlipidemia Other forms of migraine Other psoriasis Postsurgical percutaneous transluminal coronary angioplasty status Rheumatoid arthritis(714.0) RLS (restless legs syndrome) 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 Dx: Type1 DM - Controlled E10.9 Insulin: Yes Cholecalciferol, [...] population = 50. Five points is a clinicallymeaningful difference.) 09/16/2022 06/04/2022 11/21/2021 Physical T-Score 39.8 32.4 39.8 Mental T-Score 48.3 50.8 53.3 TESTING: Carotid duplex, 11/11/22, results: R ICA 20-39%, L ICA 60-79% --stable Carotid duplex, 10/22/21, results: R ICA 20-39%, L ICA 60-79% --stable Carotid duplex, 04/04/21, results: R ICA 20-39%, L ICA 60-79% ASSESSMENT: Kylie Russo is a 77 year old female [...] and care of this patient. Manuela Thomas APRN.CNP November 18, 2022 11:18 AM documented in this encounterBarnesville Hospital07-31-2023 History of Present illness Narrative* Bridger Garces MA - 11/17/2022 10:05 AM EDT POPULATION HEALTH NAVIGATION OUTREACH Action/FYI LVM myLINGOHART MESSAGE SENT ANNUAL MEDICARE WELLNESS Patient Identified by Name and : NO Outreach Outcome/Action Unable to reach patient: Left message Plastychart message sent Did you use a PCP [...] Pfizer series) due on 05/05/2022 Navigation Signature: Bridger Garces MA November 17, 2022 10:05 AM documented in this encounterBarnesville Hospital07-26-2023 Evaluation + Plan note* Assessment & Plan Note - Ivan Quan MD - 11/12/2022 3:04 PM EDT Associated Problem(s): Restrictive lung disease May develop RLD - monitor imaging, PFT as indic - rec wt loss, stay active [facility]07-26-2023 Miscellaneous Notes* Assessment & Plan Note - Ivan Quan MD - 11/12/2022 3:04 PM EDTAssociated Problem(s): Restrictive lung disease May develop RLD - monitor imaging, PFT as indic - rec wt loss, stay active * Assessment & Plan Note - Ivan Quan MD - 11/12/2022 2:51 PM EDT Associated Problem(s): SOLE on CPAP Had sleep study and given CPAP yrs - unable to use, tolerate; also given O2 HS subseq. * Assessment & Plan Note - Ivan Quan MD - 11/12/2022 2:38 PM EDT Associated Problem(s): Asthma - Nonsmoker; Hx of Asthma was on albuterol nebs prev. - have element of mild RAD, Asthma - was not on maint inhalers prev. Consider ICS/LABA, triple tx Trelegy or other inhaler regimen, iffeasible; cont. albuterol as needed; use spacer - [...] - Influenza, pneumococcal, COVID19 vaccines recommended, updated * Assessment & Plan Note - Ivan Quan MD - 11/12/2022 2:37 PM EDT Associated Problem(s): NSIP (nonspecific interstitial pneumonitis) - [...] for interstitial lung disease. 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 1.5 cm calcified lesion in the spleen. - ffup CT Chest, HRCT protocol - monitor chest imaging, PFT, 6mwt prn, as indic - further evaluation, management pending results, clinical course. documented in this encounterOhiohealth [facility]07-26-2023 Evaluation + Plan note * Assessment & Plan Note - Ivan Quan MD - 11/12/2022 2:51 PM EDT Associated Problem(s): SOLE on CPAP Had sleep study and given CPAP yrs - unable to use, tolerate; also given O2 HS subseq. [facility]07-26-2023 Evaluation + Plan note* Assessment & Plan Note - Ivan Quan MD - 11/12/2022 2:38 PM EDTAssociated Problem(s): Asthma - Nonsmoker; Hx of Asthma was on albuterol nebs prev. - have element of mild RAD, Asthma - was not on maint inhalers prev. Consider ICS/LABA, triple tx Trelegy or other inhaler regimen, iffeasible; cont. albuterol as needed; use spacer - [...] - Influenza, pneumococcal, COVID19 vaccines recommended, updated [facility]07-26-2023 Evaluation + Plan note* Assessment & Plan Note - Ivan Quan MD - 11/12/2022 2:37 PM EDTAssociated Problem(s): NSIP (nonspecific interstitial pneumonitis) - had [...] for interstitial lung disease. 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 1.5 cm calcified lesion in the spleen. - ffup CT Chest, HRCT protocol - monitor chest imaging, PFT, 6mwt prn, as indic - further evaluation, management pending results, clinical course. [facility]07-26-[facility] History of Present illness Narrative* Lesvia Herrmann - 11/12/2022 2:00 PM EDT Do you smoke?- never Oxygen use _no patient is benefiting from oxygen use. Do you have a CPAP -yes (not wearing for the last 18 yrs) DME company- unkown Most recent CT - [facility] 2031) Most recent PFT- 09/09 [facility] [place]) Has your breathing changed?- no [...] dizzy and she is unable to sleep * Ivan Quan MD - 11/12/2022 2:00 PM EDT Patient is a 77 y.o. female who [...] triple tx Trelegy or other inhaler regimen, iffeasible; cont. albuterol as needed; use spacer - [...] for interstitial lung disease. 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 1.5 cm calcified [...] - Take as directed ALBUTEROL SULFATE NEBU [id number] Amara Troy 11-22-2010 [facility] ([id number]), Disp: , Rfl: amLODIPine 5 MG Tab [...] , Rfl: Continuous Blood Gluc Sensor (FREESTYLE XANDER 14 DAY SENSOR) [facility], , Disp: , Rfl: Diclofenac Sodium 1 % Gel gel, diclofenac VOLTAREN 1 % GEL apply topically twice daily as needed DICLOFENAC SODIUM [id number] Leandra Whitney RN 01-31-2014 [facility] ([id number]), Disp:, Rfl: Diclofenac Sodium 1 % Gel gel, apply 3 grams to THE PAINFUL AREA topically once daily for 28 DAYS, Disp: , Rfl: docusate 100 MG capsule, Take 1 capsule by mouth 2 times daily., Disp: , Rfl: ergocalciferol 1.25 MG (47541 UT) capsule, Take by mouth., Disp: , [...] , Rfl: Insulin Syringe-Needle U-100 (INSULIN SYRINGE 1CC/31GX5/16) 31G X 09/02 1 ML Misc, use as directedif pump fails up to 6 times daily, Disp: , Rfl: lansoprazole [address] capsule, , Disp: , Rfl: losartan 100 MG tablet, , Disp: , Rfl: Multiple Vitamin (MULTI-VITAMINS) Tab, MULTIPLE VITAMIN MULTIVITAMINS TABS One tablet by mouth daily MULTIPLE VITAMIN [id number] Amara Troy 11-22-2010 [facility] ([id number]), Disp: , Rfl: nitroGLYCERIN 0.4 MG/SPRAY Solution, nitroglycerin NITROLINGUAL 0.4 MG/SPRAY SOLN 1 spray under tongue every 5min up to 3 X (400mcg per spray) NITROGLYCERIN [id number] Leon Seaman MD 11-30-2012 Debora Myers RN [facility] ([id number]), Disp: , Rfl: pramipexole 1 MG tablet, [...] (not wearing for the last 18 yrs) [employer] company- unkown Most recent CT - [facility] 2031) Most recent PFT- 09/09 [facility]) Has your breathing changed?- no [...] kg (203 lb) Height: 1.6 m (5' 3) Vital Signs Reviewed as noted. Physical Exam [...] notes, results, interpreted tests, imaging today before seeingthe pt; reviewed and discussed w/ pt, questions answered - 08/06/22 CTPE [facility]: IMPRESSION No CT evidence of pulmonary embolism. Extensive fine reticular opacities throughout both lungs with multiple groundglass opacities and traction bronchiolectasis, raising concern for interstitial lung disease. 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 1.5 cm calcified lesion in the spleen. FINDINGS Lung parenchyma and airways: The central airways are patent. The bilateral lungs are remarkable fordiffuse fine reticular opacities with peripheral lung and [...] imaged thyroid gland is normal. No supraclavicular oraxillary lymphadenopathy. There are multiple borderline enlarged mediastinal lymph nodes, likely reactive. Immunization Administrations COVID-19 bivalent vaccine (Pfizer) 12yr +, 30mcg/0.3mL 01/03/2022 (76 y.o.) COVID-19 monovalent vaccine (Pfizer) 12yr +, 30mcg/0.3mL 07/30/2021 (75 y.o.) COVID-19 monovalent vaccine, mRNA, Pfizer, 0.3 ML 06/06/2020 (74 y.o.) 06/28/2020 (74 y.o.) 01/13/2021(75 y.o.) Return in about 8 weeks (around [...] have updated where appropriate, and all reflect currentmedical decision making from today's encounter. Note: This dictation was generated using [employer] voice recognition software. Please excuse any typographical, grammatical or spelling errors that may have occurred using the system Ivan Rodriguez MD, MPH, [facility] Pulmonary/Critical Care Medicine [facility] 11/12/2022 documented in this encounterOhiohealth [facility]07-10-2023 History of Present illness Narrative* Suzanne Lozano Mammo Tech - 10/27/2022 10:50 AM EDT Radiology Service Progress Note PATIENT NAME: Kylie Russo DATE OF SERVICE: October 27, 2022 TIME: 11:04 AM PATIENT IDENTITY VERIFICATION COMPLETED USING TWO (2) IDENTIFIERS: Name and Date of confirmedby patient verbally. FALL SCREENING: Has the patient had 2 falls in the last year or 1 fall with injury or currently using an Ambulatory Assistive Device (Walker, Cane, Wheelchair, Crutches, etc.)? No PATIENT GENDER DATA: Female. status: : No status: NO. PATIENT RELEVANT IMPLANT DATA REVIEWED: Not Applicable RADIOLOGY DEPARTMENT: Mammography PERIPHERAL IV DATA: Not applicable SIGNED BY: Corky Mack October 27, 2022 11:04 AM documented in this encounterBarnesville Hospital07-05-2023 Miscellaneous Notes* Telephone Encounter - Michelle Baird Ma - 10/22/2022 11:06 AM EDT Please assist in scheduling. * Telephone Encounter - Brittney Mercado PA-C - 10/22/2022 10:26 AM EDT Mammo order placed- please inform patient. Brittney Mercado PA-C * Telephone Encounter - Harika Baez - 10/22/2022 9:19 AM EDT Pt calling to have pcp place mammo order. She is due anytime after 10/23. documented in this encounterBarnesville Hospital06-28-2023 Miscellaneous Notes* Telephone Encounter - Hernesto Harvey APRN.CNP - 10/15/2022 7:33 AM EDT Noted Hernesto Harvey APRN.CNP * Telephone Encounter - aCrola Huang RN - 10/13/2022 3:16 PM EDT Patient calling to let provider know she is scheduled to see DUANE Ronquillo on February 23. Carola Huang RN documented in this encounterBarnesville Hospital06-14-2023 History of Present illness Narrative* Hernesto Harvey APRN.CNP - 10/01/2022 3:42 PM EDT This Team Access Model visit is a phone encounter. It required patient-provider interaction for themedical decision making as documented below. Patient agrees to the visit: Yes Patient Location: [place] CC: Patient presents with: [employer] Concerns HPI Kylie Russo is a 77 year old female who is contacted today for a phone visit. This is an established patient of Dr. Alcira Anderson MD. Patient wanted to discuss today her concerns with medication changes regarding pulmonology and rheumatology. Saw Dr. Garcia with [facility] for interstitial lung disease resulting in ongoing shortness of breath. Per patient he was upset because rheumatology had decreased her hydroxychloroquine and he felt her RA was causing the lung concerns. Patient was then instructed to discuss this with her vp of customer experience strategy. Per patient, Dr. Farrar, her vp of customer experience strategy feels she does not need the HCQ twice a day and can go elsewhere for treatment if she disagrees. Patient without any new concernsbut would like a consult to see a new vp of customer experience strategy because her joint pain is notably worse on thedecreased hydroxychloroquine as well. Has not had an eye exam in a while as HCQ was decreased. REVIEW OF SYSTEMS See HPI PAST MEDICAL HISTORY Diagnosis Date Abnormal mammogram, unspecified left breast BPPV (benign paroxysmal positional vertigo) 02/11/2015 BPV (benign positional vertigo) CAD (coronary artery disease) Carotid stenosis CARPAL TUNNEL BILATERRAL 08/08/2005 Coronary artery disease involving confederated salish coronary artery Dr. 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 ([facility]) 12/06/2018 Other and unspecified hyperlipidemia Other forms of migraine Other psoriasis Postsurgical percutaneous transluminal coronary angioplasty status Rheumatoid arthritis(714.0) RLS (restless legs syndrome) 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 Dx: Type1 DM - Controlled E10.9 Insulin: Yes hydrOXYchloroQUINE [...] regarding treatment options, medications, and coordinating care. Hernesto Harvey APRN.CNP documented in this encounterBarnesville Hospital06-12-2023 History of Present illness Narrative* Clinton Farrar Jr., DO - 09/29/2022 11:30 AM EDT Images from the original note were not included. History of Present Illness Presence of Pain: complains of pain/discomfort Select Pain Scale: DVPRS (Defense and Veterans Pain Rating Scale) (Adult- Cognitively Intact) DVPRS: Rest: 8- severe pain Select Pain Scale: DVPRS (Defense and Veterans Pain Rating Scale) (Adult- Cognitively Intact). Totaltime spent in this encounter was 37 minutes. [...] well. Had pneumonia and is seeing a soil fertility specialist. Having pain in fingers. Severe pain down left leg. Had injections last . No prednisone since last seen. I have been told that Tramadol is a high risk me dication. I have no results of blood work [...] 98.7 F (37.1 C), temperature source Temporal, height1.6 m (5' 3), weight 92.1 kg (203 lb 0.7 oz). [...] Weakness present. Gait: Gait abnormal. Comments: Decreased technical support consultant strength both hands. Walker Psychiatric: Mood and Affect: Mood normal. Behavior: Behavior normal. Thought Content: Thought content normal. Judgment: Judgment normal. Neurological Exam Mental Status Alert. Oriented to person, place, and time. Cranial Nerves CN II: Vision test: glasses. CN III, IV, : Extraocular movements intact bilaterally. Pupils equal round and reactive to light bilaterally. Gait Abnormal gait. Decreased technical support consultant strength both hands. Walker. Assessment and Plan [...] History of rheumatoid arthritis History of stroke penitentiary (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 of aspirin penitentiary current use of non-steroidal anti-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 (NSAID) Long-term [...] Call if need Rx's documented in this encounterOhiohealth [facility]06-01-2023 History of Present illness Narrative* Alcira Anderson MD - 09/18/2022 10:42 AM EDT Medicare Yearly Visit Medical B eligibilty date age 66 Date of last exam none in the past year. PAST MEDICAL HISTORY Diagnosis Date Abnormal mammogram, unspecified left breast BPPV (benign paroxysmal positional vertigo) 02/11/2015 BPV (benign positional vertigo) CAD (coronary artery disease) Carotid stenosis CARPAL TUNNEL BILATERRAL 08/08/2005 Coronary artery disease involving confed[place] salish coronary artery Dr. 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 ([facility]) 12/06/2018 Other and unspecified hyperlipidemia Other forms of migraine Other psoriasis Postsurgical percutaneous transluminal coronary angioplasty status Rheumatoid arthritis(714.0) RLS (restless legs syndrome) 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 Has balance issues so cannot walk for exercise she had vertigo since 2009. She also has severe back issues. She watches her diet for sodium, low fat and low cholesterol most of the time. List of current specialists seen Endo: Dr Palm: Pain Mx Dr Messer heart- [place]ley, neuro- Dr. Rueda eye Dr etienne. Dr Rangel- foot doctor. [facility]- Dr payne End of Live Planning discussed including patients advanced directive wishes: Yes I am willing to follow Kylie's advanced directives. PHQ-2 / Depression screen She [...] bars in the bathroom, lack of handrails onthe stairs or have poor lighting? No Hearing Evaluation: within normal limits and normal PHYSICAL EXAM BP 132/72 (BP Site: Right Arm, BP Position: Sitting, BP Cuff Size: Large Adult) Pulse 64 Resp 18 Ht 158 cm (5' 2.21) Wt 84.8 kg (187 lb) BMI 33.98 kg/m Alert and oriented X 3: YES Body mass index is 33.98 kg/m . ASSESSMENT/PLAN: 77 year old female The following prevention plan was discussed during the office visit and provided to the patient: - Lipid panel - Glaucoma screening Alcira Anderson MD Reason for Visit Patient presents with: Medicare Wellness Exam Kylie Russo is a 77 year old female [...] avoid salt, trying to eat more fruits andvegetables, exercises regularly Kidney function is good., no swelling of legs any more. Breathing is better she is seeing Dr Garcia. 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 ([facility]) 12/06/2018 Other and unspecified hyperlipidemia Other forms of migraine Other psoriasis Postsurgical percutaneous transluminal coronary angioplasty status Rheumatoid arthritis(714.0) RLS (restless legs syndrome) 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 Anxiety state - [...] ICD10: E10.40 She follows up with the speedboat driver to follow-up with them - INSULIN LISPRO [...] continue the Mirapex and stop the gabapentin Alcira Anderson MD documented in this encounterBarnesville Hospital05-19-2023 Procedure [facility]05-03-2023 Miscellaneous Notes* Telephone Encounter - Mia Ni LPN - 08/20/2022 3:18 PM EDT Spoke with pt and information listed below given. Pt verbalizes understanding. Mia Ni LPN * Telephone Encounter - George Brown Ma - 08/20/2022 2:43 PM EDT Mailed as requested. * Telephone Encounter - Ana Paula Aranda LPN - 08/19/2022 12:58 PM EDT Patient calling back and asking to have rx mailed to her home address which is correct in the computer. Patient has not had medication for past 2 weeks, she is thinking about changing pharmacy. Please advise * Telephone Encounter - Nahomi Fuller LPN - 08/18/2022 12:58 PM EDT Last OV: 08/04/22 - Next scheduled appt: 09/18/22 Patient has been identified by name and date of : Yes Requested Prescriptions Pending Prescriptions Disp Refills pramipexole (MIRAPEX) 1 mg tablet 180 tablet 1 Sig: Take 2 tablets by mouth daily at bedtime. RX INSTRUCTIONS: Patient aware RX will be sent to pharmacy. No need to notify patient. Nahomi Fuller LPN documented in this [facility]04-21-2023 Miscellaneous Notes* Telephone Encounter - Deanne Flannery APRN.CNP - 08/08/2022 1:52 PM EDT The following approved medication requests have been transmitted electronically. Requested Prescriptions Signed Prescriptions Disp Refills fluticasone-salmeterol (ADVAIR DISKUS) 100-50 mcg/dose inhaler 1 Each 3 Sig: Inhale 1 Puff as instructed twice daily. Rinse mouth out after use with water. Authorizing Provider: DEANNE FLANNERY APRN.CNP documented in this [facility]04-21-2023 Miscellaneous Notes* Telephone Encounter - Damari Crooks RN - 08/08/2022 8:59 AM EDT Patient reports she tried to schedule an appt with [facility], but was told they need referral and have not received her information. Faxed ov notes, test results, insur info, and referral to [facility] at fax # [phone], per pt request. documented in this encounterBarnesville Hospital04-20-2023 Miscellaneous Notes* Telephone Encounter - Diana Strong RN - 08/07/2022 8:32 AM EDTSummary: New ILD Consult Interstitial Lung Disease Referral Intake Kylie Russo [phone] August 07, 2022 8:32 AM Schedulers: --Please schedule patient with (ILD physicians: Dr. Dave Rincon, Dr. Rajan Oh, Dr. Adelfo Munroe, Dr. Ada Donato, Dr. Lizandro Ayala, Dr. Ilene Casillas, Dr. Chavez Monroe, Dr. Bryan Perla, Dr. Dogu Mckeon, Dr Domingo, Dr Patricia Armenta or Dr. 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 Diana Strong RN documented in this encounterBarnesville Hospital04-19-2023 History of Present illness Narrative* Hazel Robb, RT(R) - 08/06/2022 9:40 AM EDT Radiology Service Progress Note DATE OF SERVICE: [...] creatinine assay has traceable calibration to isotope dilution- mass spectrometry. Refer to KDIGO guidelines for clinical interpretation. In patients with unstable renal function, e.g. those with acute kidney injury, the eGFRmay not accurately reflect actual GFR. eGFR- Date Value Ref Range Status 03/01/2021 >60 Final P.O.C.T. RESULTS: POC done: Yes, See Lab Tab August 06, 2022 TREATMENT: N/A PERIPHERAL IV DATA: Ambulatory: A peripheral IV was started in the Left antecubital site with a Angio cath: 18 gauge. RADIOLOGY DEPARTMENT: CT; Exam(s) Completed: PE Study SIGNATURE: RT Frank(R) PATIENT NAME: Kylie Russo DATE: August 06, 2022 TIME: 3:10 PM documented in this encounterBarnesville Hospital04-19-2023 Miscellaneous Notes* Telephone Encounter - Michelle Baird Ma - 08/06/2022 8:23 AM EDT Patient notified. * Telephone Encounter - Hernesto Harvey APRN.CNP - 08/06/2022 8:14 AM EDT Please remind patient that as she is taking steroids today for prior to her CT scan she needs to closely monitor her blood sugar. I would recommend calling her speedboat driver and letting her know you are getting a very large amount of steroids today in 3 different doses in case she has any recommendations for her insulin. Thank you Hernesto Harvey APRN.CNP documented in this encounterBarnesville Hospital04-17-2023 History of Present illness Narrative* Maggie Kwong RT(R) - 08/04/2022 1:30 PM EDT Radiology Service Progress Note PATIENT NAME: Kylie Russo DATE OF SERVICE: August 04, 2022 TIME: 1:37 PM PATIENT IDENTITY VERIFICATION COMPLETED USING TWO (2) IDENTIFIERS: Name and Date of confirmedby patient verbally. FALL SCREENING: Has the patient had 2 falls in the last year or 1 fall with injury or currently using an Ambulatory Assistive Device (Walker, Cane, Wheelchair, Crutches, etc.)? Yes, Patient High Riskfor Falls What interventions were put in place to prevent falls during this visit? Offered Assistance with Transfers/Clothing and Instructed Patient to Remain Seated (Not on Exam Table) Until Exam PATIENT GENDER DATA: Female. status: : No status: NO. PATIENT RELEVANT IMPLANT DATA REVIEWED: Not Applicable RADIOLOGY DEPARTMENT: General X-ray: Exam(s) Completed: Chest X-Ray PERIPHERAL IV DATA: Not applicable SIGNED BY: RT Hermann(R) August 04, 2022 1:37 PM documented in this encounterBarnesville Hospital04-17-2023 History of Present illness Narrative* Hernesto Harvey APRN.CNP - 08/04/2022 12:44 PM EDT CC: Patient presents with: Recheck: SOB follow up HPI Kylie Russo is a 77 year old female [...] no recurrent infections, no change in appetite, andno significant changes in weight Respiratory: See HPI [...] TUNNEL BILATERRAL 08/08/2005 Coronary artery disease involving conf[place] coronary artery Dr. 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 ([facility]) 12/06/2018 Other and unspecified hyperlipidemia Other forms [...] ALLERGIES Aggrenox [Aspirin-Dipyridamole], Amitriptyline, Cephalexin (Bulk), Cymbalta [Duloxetine],Doxycycline, Duricef [Cefadroxil], Ephedrine, Ilosone [Other], Iodine, Levaquin [...] Test blood sugar(s) 6 times daily. Dx: Type1 DM - Controlled E10.9 Insulin: Yes hydrOXYchloroQUINE [...] symptoms occur. Patient agreeable to treatment plan. Hernesto Harvey APRN.CNP documented in this encounterBarnesville Hospital04-13-2023 Miscellaneous Notes* Telephone Encounter - Michelle Baird Ma - 07/31/2022 10:50 AM EDT Patient notified. * Telephone Encounter - Hernesto Harvey APRN.CNP - 07/31/2022 10:49 AM EDT Have patient update us on how she is feeling on Thursday. If not better she needs to come in and be seen. Thank you Hernesto Harvey APRN.CNP * Telephone Encounter - Michelle Baird Ma - 07/31/2022 8:51 AM EDT Spoke with patient, states she doesn't feel [...] enough to be seen today but if Hernesto wants to see her she will come in. Please advise * Telephone Encounter - Hernesto Harvey APRN.CNP - 07/31/2022 8:38 AM EDT Patient really needs to be seen to see what further treatment is appropriate. Thank you Hernesto Harvey APRN.TIM * Telephone Encounter - Cecilia Lozoya RN - 07/30/2022 1:55 PM EDT Patient was seen by Hernesto Harvey CNP on 07/21 for pneumonia follow [...] for up to 15 minutes. Patient asking Hernesto Harvey to advise. Pt asking if should get CXR now/sooner? Please call patient or with advise. Thank you. documented in this encounterBarnesville Hospital04-07-2023 Miscellaneous Notes* Telephone Encounter - Michelle Baird Ma - 07/25/2022 3:39 PM EDT Patient notified. * Telephone Encounter - Hernesto Harvey APRN.CNP - 07/25/2022 3:18 PM EDT Please let patient know I ordered a repeat chest xray in 4 weeks to re-evaluate that pneumonia has resolved. If symptoms are not improving, this should be completed earlier. Thank you Hernesto Harvey APRN.CNP documented in this encounterBarnesville Hospital04-03-2023 History of Present illness Narrative* Hernesto Harvey APRN.CNP - 07/21/2022 11:52 AM EDT CC: Patient presents with: Recheck: Pneumonia follow up HPI Kylie Russo is a 76 year old female [...] and wheezing improved. Recent visit with new ice cream scooper and planning on shaving the corns to [...] TUNNEL BILATERRAL 08/08/2005 Coronary artery disease involving conf[place] coronary artery Dr. 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 ([facility]) 12/06/2018 Other and unspecified hyperlipidemia Other forms of migraine Other psoriasis Postsurgical percutaneous transluminal coronary angioplasty status Rheumatoid arthritis(714.0) RLS (restless legs syndrome) 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 Dx: Type1 DM - Controlled E10.9 Insulin: Yes hydrOXYchloroQUINE [...] out and faxed to podiatry office 3. [place] - ICD9: 700, ICD10: L84 As above. Prescription instructions reviewed with patient as applicable. Potential red flag symptoms discussed with the patient. Reviewed appropriate action plan to take if red flag symptoms occur. Patient agreeable to treatment plan. Hernesto Harvey APRN.CNP documented in this encounterBarnesville Hospital03-30-2023 Miscellaneous Notes* Telephone Encounter - Mirtha Ramos RN - 07/17/2022 10:22 AM EDT Kevin with [facility] calls to let provider know that Tussionex comes in a Stock Bottle of 115 mL and can't be broken down to dispense. Kevin requesting order be sent for 115 mL bottle. Pended for review. Mirtha Ramos RN documented in this encounterBarnesville Hospital03-30-2023 History of Present illness Narrative* Hernesto Harvey APRN.TIM - 07/17/2022 8:03 AM EDT 1CC: Patient presents with: Recheck: Pneumonia follow up HPI Kylie Russo is a 76 year old female who presents today for pneumonia follow up. Was seen in [facility] on 07/09/22 and diagnosed with bilateral pneumonia. Was prescribed augmentin and azithromycin both for 5 days and finished both about 2 days ago. Frakes better for a few days but started [...] TUNNEL BILATERRAL 08/08/2005 Coronary artery disease involving [place] coronary artery Dr. 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 ([facility]) 12/06/2018 Other and unspecified hyperlipidemia Other forms of migraine Other psoriasis Postsurgical percutaneous transluminal coronary angioplasty status Rheumatoid arthritis(714.0) RLS (restless legs syndrome) 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 Dx: Type1 DM - Controlled E10.9 Insulin: Yes hydrOXYchloroQUINE [...] Patient notified via phone to call her speedboat driver as her basal insulin will need increased [...] symptoms occur. Patient agreeable to treatment plan. Hernesto Harvey APRN.CNP documented in this encounterBarnesville Hospital03-24-2023 Miscellaneous Notes* Telephone Encounter - Alba Pantoja LPN - 07/11/2022 10:26 AM EDT My chart message to pt. * Telephone Encounter - Sarah Silva Ma - 07/09/2022 10:01 AM EDT Prior Authorization has been completed online at [employer] for lansoprazole, will await response. MARIE- [id number] Please keep encounter open until final decision has been received and documented from insurance company. Sarah Silva MA * Telephone Encounter - Nara Argueta RN - 07/09/2022 8:47 AM EDT PRIOR AUTHORIZATION Medication for Prior Authorization: lansoprazole Insurance Company: Medicare: [id number] [place]/[employer] FEP PPO [id number] Nara Argueta RN documented in this encounterBarnesville Hospital03-22-2023 History of Present illness Narrative* Carlota Omalley RT(R) - 07/09/2022 1:10 PM EDT Radiology Service Progress Note PATIENT NAME: Kylie Russo DATE OF SERVICE: July 09, 2022 TIME: 1:07 PM PATIENT IDENTITY VERIFICATION COMPLETED USING TWO (2) IDENTIFIERS: Name and Date of confirmedby patient verbally. FALL SCREENING: Has the patient had 2 falls in the last year or 1 fall with injury or currently using an Ambulatory Assistive Device (Walker, Cane, Wheelchair, Crutches, etc.)? Yes, Patient High Riskfor Falls What interventions were put in place to prevent falls during this visit? Instructed Patient to Callfor Help if Needed, Offered Assistance with Transfers/Clothing, and Increased Observations by Caregivers PATIENT GENDER DATA: Female. status: : No status: NO. PATIENT RELEVANT IMPLANT DATA REVIEWED: Yes RADIOLOGY DEPARTMENT: General X-ray: Exam(s) Completed: Chest X-Ray PERIPHERAL IV DATA: Not applicable SIGNED BY: RT Kelvin(R) July 09, 2022 1:07 PM documented in this encounterBarnesville Hospital03-22-2023 Miscellaneous Notes* Telephone Encounter - Kala Delcid - 07/09/2022 9:10 AM EDT POPULATION HEALTH NAVIGATION OUTREACH Action/I 1st call-LVM and Gidsyhart message for patient regarding PODIATRY consult. Patient Identified by Name and : NO Outreach Outcome/Action Unable to reach patient: Left message Plastychart message sent Did you use a PCP [...] 09, 2022 9:10 AM documented in this encounterBarnesville Hospital03-03-2023 Miscellaneous Notes* Telephone Encounter - Hernesto Harvey APRN.CNP - 06/20/2022 8:00 AM EST Prescription sent. Thank you Hernesto Harvey APRN.CNP * Telephone Encounter - Rosalba Ren RN - 06/18/2022 10:22 AM EST Pt called and is notified of providers results and instructions. Pt voices understanding. She states she is still having to wear socks at night and she has the ring around her leg from where the socks were. Pt reports provider can send Lasix and Potassium to [facility] in [place], and that she wouldn't take it every day. She also wanted to let provider know that with having her pump on her BS is supposed to be around 120 and in her labs it was 124. Pt was also scheduled for her 3 month Medicare Wellness Visit. Rosalba Ren RN * Telephone Encounter - Hernesto Harvey APRN.CNP - 06/18/2022 9:59 AM EST Lab work is all within acceptable ranges. [...] medicare wellness in 3 months. Thank you Hernesto Harvey APRN.CNP * Telephone Encounter - Damari Crooks RN - 06/13/2022 12:45 PM EST Patient phoned to ask Hair Or Beauty Salon Manager, does she need to schedule a Medicare Wellness appt since her last appt focused on other things? Please advise patient. documented in this encounterBarnesville Hospital02-27-2023 Miscellaneous Notes* Telephone Encounter - Mia Ni LPN - 06/16/2022 2:44 PM EST Pt called and requested her referral and supporting information be faxed to Dr. Zhao, Podiatry. FAX: [phone] Done. Mia Ni LPN documented in this encounterBarnesville Hospital02-20-2023 History of Present illness Narrative* Hernesto Harvey APRN.CNP - 06/09/2022 11:31 AM EST CC: Patient presents with: Medicare Wellness Exam: Annual wellness HPI Kylie Russo is a 76 year old female [...] regimen. She does not check BP's generally. Kylie denies regular aerobic exercise. She watches her [...] podiatry. Would like to see a different ice cream scooper for second opinion. DIABETES MELLITUS: Ms. Russo [...] weeks. Denies abdominal pain, dark colored or foulsmllling urine, difficulty urinating, or fever. REVIEW OF [...] TUNNEL BILATERRAL 08/08/2005 Coronary artery disease involving [place] coronary artery Dr. 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 ([facility]) 12/06/2018 Other and unspecified hyperlipidemia Other forms [...] ALLERGIES Aggrenox [Aspirin-Dipyridamole], Amitriptyline, Cephalexin (Bulk), Cymbalta [Duloxetine],Doxycycline, Duricef [Cefadroxil], Ephedrine, Ilosone [Other], Iodine, Levaquin [...] Test blood sugar(s) 6 times daily. Dx: Type1 DM - Controlled E10.9 Insulin: Yes hydrOXYchloroQUINE [...] 46 units every 24 hr for insulin pumpfailure (Patient not taking: Reported on 04/03/2022) Insulin [...] weight loss. - LIPID PANEL BASIC 8. [place] - ICD9: 700, ICD10: L84 - CONSULT TO PODIATRY - faxed to Dr. Ewing office as requested. Prescription instructions reviewed with patient as applicable. Potential red flag symptoms discussed with the patient. Reviewed appropriate action plan to take if red flag symptoms occur. Patient agreeable to treatment plan. Hernesto Harvey APRN.CNP documented in this encounterBarnesville Hospital02-15-2023 Miscellaneous Notes* Telephone Encounter - Carola Huang RN - 06/04/2022 1:12 PM EST Patient returned call to schedule annual wellness exam. Carola Huang RN documented in this encounterBarnesville Hospital02-14-2023 History of Present illness Narrative* Marques Rangel - 06/03/2022 9:51 PM EST Images from the original note were not [...] (H) 4.3 - 5.6 % Final Comment: [place] Diabetes Association guidelines indicate that patients with HgbA1c in the range 5.7-6.4% are at increased risk for development of diabetes, and intervention by lifestyle modification may be beneficial. HgbA1c greater or equal to 6.5% is considered diagnostic of diabetes. PCP: Alcira Anderson MD PAST MEDICAL HISTORY Diagnosis Date Abnormal mammogram, unspecified left breast BPPV (benign paroxysmal positional vertigo) 02/11/2015 BPV (benign positional vertigo) CAD (coronary artery disease) Carotid stenosis CARPAL TUNNEL BILATERRAL 08/08/2005 Coronary artery disease involving [place] coronary artery Dr. 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 Dx: Type1 DM - Controlled E10.9 Insulin: Yes Blood-Glucose Meter (CONTOUR METER) monitoring kit Dispense 1 kit. Dx: Type 1 DM - Controlled E10.9 insulin glargine (LANTUS U-100 INSULIN) 100 unit/mL injection 46 units every 24 hr for insulin pumpfailure (Patient not taking: Reported on 04/03/2022) Insulin [...] present to b/l 5th toe ipj no ulcerationpresent. 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 ASSESSMENT: Hyperkeratosis (primary encounter diagnosis) Diabetic polyneuropathy associated with type 2 diabetes mellitus (hcc) PLAN: Discussed painful callus of b/l 5th toe. Callus caused by hammertoe. Recommend wider shoes, paddingand periodic debridement Callus debrided today x 2 with 15 blade and dremmel. Continue with padding Discussed surgical options. She is not interested in surgery. Can f/u prn for callus debridement * Rosalba Monroe RN - 05/29/2022 3:58 PM EST AMB ROOMING INTAKE FLOWSHEET DATA Pain Pain [...] a lot more lately. documented in this encounterBarnesville Hospital02-03-2023 Miscellaneous Notes* Telephone Encounter - Alba Pantoja LPN - 05/23/2022 3:54 PM EST Called pt and pending rx is all that is needed. Last seen 11/2021. * Telephone Encounter - Teagan Calvert - 05/23/2022 3:41 PM EST Patient has been identified by name and [...] No need to notify patient. Teagan Espinoza [facility] Electronically signed by Teagan Espinoza [facility] at 05/23/2022 3:45 PM EST documented in this encounterBarnesville Hospital02-03-2023 Miscellaneous Notes* Telephone Encounter - Jacqueline Rabago LPN - 05/23/2022 11:50 AM EST Called patient and schedule sooner appointment for 05/29/2022. Jacqueline Rabago LPN * Telephone Encounter - Tameka Michel RN - 05/21/2022 1:17 PM EST Kylie called. She advised that Dr. Rangel takes care of her corns and she called to schedule avisit to have them removed and she cannot get in until June 04. Kylie advised that her feetare so sore that she cannot even wear her slippers and having to wait 2 weeks is unacceptable andif that is the first time that she can be seen then I might as well find another provider that can see me. Spoke with Jacqueline, she advised that Dr. Rangel is currently booking out 2 weeks and that is the first appointment that is available, but they can put her on a cancellation list. Spoke with Kylie. Reviewed what Jacqueline said and advised that I would put a message in her chart to their office and ask that she be placed on a cancellation list. Kylie became very upset and stated Dr. Rangel told me that when I needed to be seen, I just had to call and I would be seen the day!. I apologized and advised that all I could do was send a message to their office as I amjust helping answer their phones and I cannot book appointments for their office. Tameka Michel RN documented in this encounterBarnesville Hospital01-24-2023 Miscellaneous Notes* Telephone Encounter - Rylee Alvarado LPN - 05/13/2022 12:18 PM EST Patient has been identified by name and [...] Please advise. Thank you. Rylee Alvarado LPN * Telephone Encounter - Teagan Espinoza [facility] - 05/13/2022 10:36 AM EST Patient has been identified by name and date of : Yes Requested Prescriptions Pending Prescriptions Disp Refills gabapentin (NEURONTIN) 400 mg capsule 180 capsule 3 Sig: Take 1 capsule by mouth twice daily as needed. RX INSTRUCTIONS: Patient aware RX will be sent to pharmacy. No need to notify patient. Teagan Espinoza [employer] documented in this encounterBarnesville Hospital12-30-2022 Miscellaneous Notes* Telephone Encounter - Hernesto Harvey APRN.CNP - 04/18/2022 4:06 PM EST PDMP website checked and validated. All prescriptions have been APPROPRIATELY filled. No suspiciousactivity was identified. 04/18/2022 by Hernesto Harvey APRN.CNP * Telephone Encounter - Nara Sandoval - 04/18/2022 10:30 AM EST Patient has been identified by name and date of : Yes, Provider ALCIRA ANDERSON Date 04/18/22 Time 1033 Patient phones for refill(s): Requested Prescriptions Pending Prescriptions Disp Refills clonazePAM (KLONOPIN) 1 mg tablet 90 tablet 0 Sig: Take 1 tablet by mouth at bedtime as needed for up to 180 days. 04/03/22- Needs renewed Date of last office visit in primary care: 03/25/22 Labs-02/07/22 NOV-none med filled 12/27/21 Last 2 Encounter Wt Readings: Date: Wt: 11/05/2021 91.6 kg (202 lb) 05/10/2021 88.9 kg (196 lb) Previous labs/tests for medication: Not applicable Please advise. Thank you. Nara Sandoval documented in this encounterBarnesville Hospital12-15-2022 Instructions* Patient Instructions* Marques Rangel - 04/03/2022 10:03 AM EST Diabetes [...] it. Apply a bandage and wear a differentpair of shoes. Take Care of Your Toenails Cut toenails after bathing, when they are soft. Cut toenails straight across and smooth with a nail file. Avoid cutting into the corners of toes. Do not cut cuticles. If you have neuropathy (or decreased sensation in your feet) a ice cream scooper should always cut your toenails. Be Careful [...] make sure there are no foreign objects orrough areas. Avoid tight socks. Wear natural-fiber socks [...] Go to your health care provider or ice cream scooper to treat these conditions. documented in this encounterBarnesville Hospital12-15-2022 History of Present illness Narrative* Marques Rangel - 04/03/2022 9:55 AM EST Images from the original note were not [...] Duration Units: Unknown Frequency: Continuous Intervention/Comfort measure: Reposition;Distractions;Relaxation Hemoglobin A1C Date Value Ref Range Status 05/07/2021 7.5 (H) 4.3 - 5.6 % Final Comment: [place] Diabetes Association guidelines indicate that patients with HgbA1c in the range 5.7-6.4% are at increased risk for development of diabetes, and intervention by lifestyle modification may be beneficial. HgbA1c greater or equal to 6.5% is considered diagnostic of diabetes. PCP: Alcira Anderson MD PAST MEDICAL HISTORY Diagnosis Date Abnormal mammogram, unspecified left breast BPPV (benign paroxysmal positional vertigo) 02/11/2015 BPV (benign positional vertigo) CAD (coronary artery disease) Carotid stenosis CARPAL TUNNEL BILATERRAL 08/08/2005 Coronary artery disease involving [place] coronary artery Dr. 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 12/15/22-Needs renewed) pramipexole (MIRAPEX) 1 mg tablet Take [...] Test blood sugar(s) 6 times daily. Dx: Type1 DM - Controlled E10.9 Insulin: Yes insulin glargine (LANTUS U-100 INSULIN) 100 unit/mL injection 46 units every 24 hr for insulin pumpfailure (Patient not taking: Reported on 04/03/2022) Insulin [...] caused by hammertoe deformity. Discussed options for thehammertoe not limited to conservative care (ie padding, periodic debridemetn of callus ) vs surgcial (arthroplasty vs amputation). Patient is not interested in surgery. She has elected to continue with pallitative care In order to perform a complete physical exam, limited shaving of callus area was performed. This incidental service is integral to the evaluation and management visit in order to appropriately manageand treat the patient (for their complaint or for this visit). Toenails 1-5 b/l debrided in length and thickness F/u in 3 months Marques Rangel DPM * Rosalba Monroe RN - 04/03/2022 9:43 AM EST AMB ROOMING INTAKE FLOWSHEET DATA Risk Screening Do you have concerns about personal safety or safety in the home?: No Pain Pain Level: 6 Pain Location: Other: See Comment (Bilateral feet) Duration Units: Unknown Frequency: Continuous Intervention/Comfort measure: Reposition, Distractions, Relaxation Patient presents with: Right Foot - Established Patient, Follow Up, Corns Left Foot - Established Patient, Follow Up, Corns documented in this encounterBarnesville Hospital10-18-2022 Miscellaneous Notes* Telephone Encounter - Amber Valencia LPN - 02/04/2022 12:29 PM EDT Patient notified. Verbalized understanding. * Telephone Encounter - Alcira Anderson MD - 02/04/2022 12:19 PM EDT Please let patient know that I would give her macrobid if she feels like she is having an infection It has been sent to Alcira Musa MD * Telephone Encounter - Nara Argueta RN - 02/03/2022 4:30 PM EDT Patient called and states that it has been 2-4 weeks since she had taken the last dose of amoxicillin. Patient know that she was coming down with UTI infection because she gets one every year. Patient states that she took 4-5 pills at that time. Patient notified that diflucan was sent to pharmacy. Patient voiced understanding. Nara Argueta RN * Telephone Encounter - Hernesto Harvey APRN.CNP - 02/03/2022 4:19 PM EDT Why is patient on amoxicillin? When was the last fluconazole pill? I have ordered another diflucan pill but do not want her to take unless she has not taken any in hte past 3 days. Thank you Hernesto Harvey APRN.CNP * Telephone Encounter - Nara Argueta RN - 02/03/2022 3:52 PM EDT Patient calls and states that she still has a yeast infection. Patient states that she still has a lot of itching. Patient states that she was given amoxicillin by her son. At first patient said thatshe took a couple of the pills and they always make her itchy. She then said that she hasn't taken any of the pills. Please review and advise, Nara Argueta RN * Telephone Encounter - Sue Alvarado LPN - 02/03/2022 3:45 PM EDT Left message for patient to call office and speak with nurse. * Telephone Encounter - Hernesto Harvey APRN.CNP - 02/03/2022 2:52 PM EDT Please let patient know her urine culture did not show any specific infection, but may have been contaminated and not a clean sample. How are her symptoms? If she is still having concerns, we should repeat the urine. Thank you Hernesto Harvey APRN.TIM documented in this encounterBarnesville Hospital10-14-2022 Miscellaneous Notes* Telephone Encounter - Sheila Roper LPN - 01/31/2022 9:49 AM EDT [employer] message was sent to patient * Telephone Encounter - Alcira Anderson MD - 01/30/2022 9:51 PM EDT You have a uti Bridger, Waiting for the culture to be back Regards, Alcira Anderson MD documented in this encounterBarnesville Hospital10-13-2022 Miscellaneous Notes* Telephone Encounter - Mia Ni LPN - 01/30/2022 1:42 PM EDT Spoke with the pharmacy and they have everything they need and will get prescription for test strips ready for pt. Pt notified. Mia Ni LPN * Telephone Encounter - Mia Ni LPN - 01/28/2022 4:35 PM EDT Contacted Tamara Hairston and they are going to re fax form. Watch for form. Mia Ni LPN * Telephone Encounter - Michelle Baird Ma - 01/24/2022 11:54 AM EDT Form not received. * Telephone Encounter - Mirtha Ramos RN - 01/22/2022 8:15 AM EDT Patient calls to ask if provider's office has received the medicare form for glucose test strips. She reports Bryan was to fax it to office. Patient reports she is down to 5 test strips. Patient asking for call back at [phone] to verify. Mirtha Ramos RN * Telephone Encounter - Cecilia Lozoya RN - 01/20/2022 4:54 PM EDT Patient reports she will be getting a medicare form to Dr. Anderson (either by fax or she will bring it in) for Dr. Anderson to complete so she can get more blood sugar test strips. Patient states recent test strip script sent will not be covered without this medicare form being completed. 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 * Telephone Encounter - Brittney Jasso - 01/22/2022 1:08 PM EDT Kylie Russo is calling Alcira Anderson MD today to request UTI (Frequency and burning and yeast infection) Patient is calling for medication for this please advise. Patient has been identified by name and birthdate. Duration of symptoms: 2 days Person calling: self Call patient at: at home [phone] (home) [phone] (work) [phone] (cell) Was an appointment scheduled: No Closing statement: Symptom Call: Thank you for calling [facility], your call is very important. A nurse will call in approximately 2-4 hours during business hours. If this is an emergency, please contact 911. Brittney Connor Pss documented in this encounterBarnesville Hospital09-12-2022 History of Present illness Narrative* Marques Rangel - 12/30/2021 4:32 PM EDT Initial Podiatric Office Visit: Chief Complaint: This [...] Duration Units: Weeks Frequency: Continuous Intervention/Comfort measure: Reposition;Relaxation;Distractions Comments: Tramadol at home for pain Hemoglobin A1C (%) Date Value 05/07/2021 7.5 05/01/2020 7.5 09/24/2018 8.4 06/22/2017 8.0 03/31/2017 8.0 03/17/2016 8.2 03/17/2016 8.1 Hemoglobin A1C (POCT) (%) Date Value 10/18/2020 7.3 05/02/2019 7.3 01/18/2019 7.0 PCP: Alcira Anderson MD PAST MEDICAL HISTORY Diagnosis Date Abnormal mammogram, unspecified left breast BPPV (benign paroxysmal positional vertigo) 02/11/2015 BPV (benign positional vertigo) CAD (coronary artery disease) Carotid stenosis CARPAL TUNNEL BILATERRAL 08/08/2005 Coronary artery disease involving [place] coronary artery Dr. 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 ([facility]) 12/06/2018 Other and unspecified hyperlipidemia Other forms of migraine Other psoriasis Postsurgical percutaneous transluminal coronary angioplasty status Rheumatoid arthritis(714.0) RLS (restless legs syndrome) 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 Dx: Type1 DM - Controlled E10.9 Insulin: Yes Biotin [...] clean and dry 1-4 b/l. Skin appears wellhydrated and supple. good color, texture, turgor. No [...] Callus reduced with dremmel to b/l feet. Marques Rangel DPM Podiatry [address] [facility] [address] Dept: [phone] Dept * Rosalba Monroe RN - 12/30/2021 4:23 PM EDT AMB ROOMING INTAKE FLOWSHEET DATA Risk Screening [...] toes. X-Ray done today. documented in this encounterBarnesville Hospital09-09-2022 Miscellaneous Notes* Telephone Encounter - Rylee Alvarado LPN - 12/27/2021 3:17 PM EDT Patient stated that she dropped meds in [...] you. Rylee Alvarado LPN documented in this encounterBarnesville Hospital09-06-2022 Miscellaneous Notes* Telephone Encounter - Jacqueline Rabago LPN - 12/24/2021 9:45 AM EDT Patient called in stating that she dropped a vacuum on right foot last week. Patient states she is still having pain. Advised patient if she is concerned about it to present toUC. Patient declined. Patient states she has previously broke all toe in past on that foot. Offeredpatient earliest appointment for evaluation. Informed patient to arrive 30 minutes early for an xray. Jacqueline Rabago LPN documented in this encounterBarnesville Hospital08-04-2022 History of Present illness Narrative* Hernesto Harvey APRN.TIM - 11/21/2021 8:00 AM EDT This Team Access Model visit is a virtual encounter. It required patient- provider interaction for the medical decision making as documented below. Patient agrees to the visit: Yes Patient Location: [place] CC: Patient presents with: Hypertension F/U Diabetes 3 Month HPI Kylie Russo is a 76 year old female who is contacted today for a virtual visit. This is an established patient of Dr. Alcira Anderson MD. Chronic Constipation: Seeing GI on [...] reactions, weight loss/gain, lightheadedness/dizziness and bowel changes/loose stools.Follows a diabetic diet most of the time. [...] with average BP's in the 120s/60s range. Kylie denies regular aerobic exercise. She watches her [...] TUNNEL BILATERRAL 08/08/2005 Coronary artery disease involving [place] coronary artery Dr. 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 ([facility]) 12/06/2018 Other and unspecified hyperlipidemia Other forms of migraine Other psoriasis Postsurgical percutaneous transluminal coronary angioplasty status Rheumatoid arthritis(714.0) RLS (restless legs syndrome) 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 Dx: Type1 DM - Controlled E10.9 Insulin: Yes urea [...] 46 units every 24 hr for insulin pumpfailure Insulin Syringe-Needle U-100 (BD ULTRAFINE INSULIN) 1 [...] loss, treatment options, medications and coordinating care. Hernesto Harvey APRN.TIM documented in this encounterBarnesville Hospital07-27-2022 Instructions* Patient Instructions* Marques Rangel - 11/13/2021 8:25 AM EDT You have callus on right 5th toe caused by hammertoe Continue with padding and periodic debridement in office Small bleed present to callus today. Band aide applied. If you have any issues such as redness or drainage or warmth, call the office. documented in this encounterBarnesville Hospital07-27-2022 History of Present illness Narrative* Marques Rangel - 11/13/2021 8:16 AM EDT Images from the original note were not included. FOLLOW UP PODIATRIC OFFICE VISIT Chief Complaint: This 76 year old who presents for follow up:painful callus of right 5th toe Patient presents to clinic for painful callus of right 5th toe. She states that the side of her 5thtoe hurts when it rubs in the shoe. [...] feet right is worse than left Description: Aching;Sore;Sharp;Dull;Stabbing/Not Incision;Burning Duration Amount of Time: 3 Duration Units: Weeks Frequency: Continuous Intervention/Comfort measure: Reposition;Relaxation Hemoglobin A1C Date Value Ref Range Status 05/07/2021 7.5 (H) 4.3 - 5.6 % Final Comment: [place] Diabetes Association guidelines indicate that patients with HgbA1c in the range 5.7-6.4% are at increased risk for development of diabetes, and intervention by lifestyle modification may be beneficial. HgbA1c greater or equal to 6.5% is considered diagnostic of diabetes. PCP: Alcira Anderson MD PAST MEDICAL HISTORY Diagnosis Date Abnormal mammogram, unspecified left breast BPPV (benign paroxysmal positional vertigo) 02/11/2015 BPV (benign positional vertigo) CAD (coronary artery disease) Carotid stenosis CARPAL TUNNEL BILATERRAL 08/08/2005 Coronary artery disease involving [place] coronary artery Dr. Pederson follows regularly; S/P PTCA and stenting at [facility], 2000 Coronary atherosclerosis of unspecified type of vessel, confed[place] or graft Disorder of bone and cartilage, [...] Test blood sugar(s) 6 times daily. Dx: Type1 DM - Controlled E10.9 Insulin: Yes blood [...] 46 units every 24 hr for insulin pumpfailure Insulin Syringe-Needle U-100 (BD ULTRAFINE INSULIN) 1 [...] bleed present and controlled with band aide. Ifshe has any issues, she is to contact the office. F/u as scheduled for nail care. In order to perform a complete physical exam, limited shaving of callus area was performed. This incidental service is integral to the evaluation and management visit in order to appropriately manage and treat the patient (for their complaint or for this visit). Marques Rangel DPM * Jacqueline Rabago LPN - 11/13/2021 8:07 AM EDT AMB ROOMING INTAKE FLOWSHEET DATA Pain Pain [...] Pain Jacqueline Rabago LPN documented in this encounterBarnesville Hospital07-19-2022 History of Present illness Narrative* Manuela Thomas, CARLOS EDUARDO.CROP AND SOIL TECHNICIAN - 11/05/2021 9:29 AM EDT Kylie Russo 76 year old female returning for a routine follow-up of carotid disease for which no previous intervention has been performed. Bridger saw Dr. Arredondo at the beginning of [...] TUNNEL BILATERRAL 08/08/2005 Coronary artery disease involving [place] coronary artery Dr. 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 May repeat after 15 minutes using a new device if there is no response. blood sugar diagnostic (CONTOUR TEST STRIPS) test strip Test blood sugar(s) 6 times daily. Dx: Type1 DM - Controlled E10.9 Insulin: Yes urea [...] 46 units every 24 hr for insulin pumpfailure Insulin Syringe-Needle U-100 (BD ULTRAFINE INSULIN) 1 [...] asa & statin; Continue to try to stayactive & healthy; Monitor for any s/s of [...] with more than 50% of the total [id number] time of the visit in counseling / coordination of care. Manuela Thomas APRN.CNP documented in this encounterBarnesville Hospital07-19-2022 Instructions* Patient Instructions* Manuela Thomas APRN.CNP - 11/05/2021 9:26 AM [...] to avoid another stroke. documented in this encounterBarnesville Hospital07-07-2022 History of Present illness Narrative* Hernesto Harvey APRN.CNP - 10/24/2021 8:28 AM EDT CC: Patient presents with: Recheck: Follow up constipation HPI Kylie Russo is a 76 year old female who presents today for follow up on constipation and new medication. Patient has chronic constipation, and over the years has tried numerous medications without relief.4 weeks ago started a low dose Linzess. [...] TUNNEL BILATERRAL 08/08/2005 Coronary artery disease involving [place] coronary artery Dr. 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 ([facility]) 12/06/2018 Other and unspecified hyperlipidemia Other forms of migraine Other psoriasis Postsurgical percutaneous transluminal coronary angioplasty status Rheumatoid arthritis(714.0) RLS (restless legs syndrome) 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 Dx: Type1 DM - Controlled E10.9 Insulin: Yes losartan [...] 46 units every 24 hr for insulin pumpfailure Insulin Syringe-Needle U-100 (BD ULTRAFINE INSULIN) 1 [...] of diarrhea I am concerned if it continueswe will have to stop this medication. Discussed [...] symptoms occur. Patient agreeable to treatment plan. Hernesto Harvey APRN.CNP documented in this encounterBarnesville Hospital07-05-2022 Miscellaneous Notes* Letter - Mammography Coordinator - 10/22/2021 3:36 PM EDT October 22, 2021 PID: [id number] Kylie Russo [address] [place] [address] Dear Ms. Russo, We are pleased to [...] report will be [facility] as part of your permanent medical record and are available for your continuing care. Thank you for allowing us to help in meeting your health care needs. Sincerely, Dr. Peck Interpreting Radiologist [facility] (Normal over 40) documented in this encounterBarnesville Hospital07-05-2022 Miscellaneous Notes* Telephone Encounter - Rosalba Ren RN - 10/22/2021 11:16 AM EDT Pts reports she has been out of [...] you. Rosalba Ren RN documented in this encounterBarnesville Hospital07-05-2022 History of Present illness Narrative* RT Chilo(R) - 10/22/2021 11:10 AM EDT Radiology Service Progress Note PATIENT NAME: Kylie Russo DATE OF SERVICE: October 22, 2021 TIME: 10:50 AM PATIENT IDENTITY VERIFICATION COMPLETED USING TWO (2) IDENTIFIERS: Name and Date of confirmedby patient verbally. FALL SCREENING: Has the patient [...] 22, 2021 10:50 AM documented in this encounterBarnesville Hospital06-28-2022 Miscellaneous Notes* Telephone Encounter - Rylee Alvarado LPN - 10/15/2021 1:22 PM EDT Patient has been identified by name and [...] you. Rylee Alvarado LPN documented in this encounterBarnesville Hospital06-28-2022 Miscellaneous Notes* Telephone Encounter - Manuela Thomas APRN.CNP - 10/15/2021 9:53 AM EDT New order placed as requested. Manuela Thomas APRN.TIM * Telephone Encounter - Maranda Teixeira LPN - 10/14/2021 10:16 AM EDT Manuela from [facility] called stating they need Kylie's order for her Carotid US changed to vascular lab instead of radiology. She can be reached @ [phone]. Maranda Teixeira LPN documented in this encounterBarnesville Hospital06-27-2022 Miscellaneous Notes* Telephone Encounter - Elida Fowler - 10/14/2021 10:16 AM EDT LMOM to schedule JM on LM day 6 Month F/UP for Carotid Stenosis with ULTRA DUP CAROTID ARTERY BILAT 10/17/2021 *LM* documented in this encounterBarnesville Hospital06-25-2022 Miscellaneous Notes* Telephone Encounter - Dior Lilly - 10/12/2021 8:40 AM EDT Called patient left a voicemail to call back and schedule a mammogram. Thanks Dior Lilly PSS * Telephone Encounter - Hernesto Harvey APRN.CNP - 10/11/2021 4:02 PM EDT Order has been placed. Thank you Hernesto Harvey APRN.CNP * Telephone Encounter - RT Chilo(R) - 10/11/2021 2:04 PM EDT Pt needs orders for routine Screening Mammogram please. Old order from 2020 has . Pt called and does understand she does need to have both sides done at screen to keep her on track. Thank you! * Telephone Encounter - Maryse Key - 10/11/2021 1:33 PM EDT Pt called in and stated that she was under the impression that she needed another mammogram, there was no active order in the system. Please advise. documented in this encounterBarnesville Hospital06-10-2022 Miscellaneous Notes* Telephone Encounter - Hernesto Harvey APRN.CNP - 09/27/2021 2:24 PM EDT Prescription sent as requested. Thank you Hernesto Harvey APRN.CNP * Telephone Encounter - Ana Paula Aranda LPN - 09/27/2021 12:48 PM EDT Patient calling asking to have Linzess rx sent to [facility] mail away pharmacy cost would be cheaper [...] Ana Paula Aranda LPN documented in this encounterBarnesville Hospital06-09-2022 Miscellaneous Notes* Telephone Encounter - Alba Pantoja LPN - 09/26/2021 2:57 PM EDT Electronic PA completed for linzess. Authorized from August 27, 2021 to September 26, 2022 Information received electronically from payer documented in this encounterBarnesville Hospital06-09-2022 History of Present illness Narrative* Hernesto Harvey, HAIR BOILER OPERATOR.CROP AND SOIL TECHNICIAN - 09/26/2021 1:50 PM EDT CC: Patient presents with: Recheck: Follow up stomach issues HPI Kylie Russo is a 76 year old female [...] almost every other week. Last colonoscopy was 2019, with no cause of constipation noted and [...] TUNNEL BILATERRAL 08/08/2005 Coronary artery disease involving [place] coronary artery Dr. 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 ([facility]) 12/06/2018 Other and unspecified hyperlipidemia Other forms of migraine Other psoriasis Postsurgical percutaneous transluminal coronary angioplasty status Rheumatoid arthritis(714.0) RLS (restless legs syndrome) 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 Dx: Type1 DM - Controlled E10.9 Insulin: Yes losartan [...] 46 units every 24 hr for insulin pumpfailure Insulin Syringe-Needle U-100 (BD ULTRAFINE INSULIN) 1 [...] symptoms occur. Patient agreeable to treatment plan. Hernesto Harvey APRN.CNP documented in this encounterBarnesville Hospital06-03-2022 History of Present illness Narrative* Marques Rangel - 09/20/2021 8:31 AM EDT Last saw Dr. Anderson: 01/18/21 Subjective: Patient [...] Objective: Patient presents to clinic ambulating in [facility] Vasc: DP and PT pulses are faintly [...] diabetic foot care along with proper diet andkeeping their blood sugar under control to prevent complications. Patient is to RTC in 3-4 months. Marques Rangel DPM * Sadia Muniz RN - 09/20/2021 8:13 AM EDT AMB ROOMING INTAKE FLOWSHEET DATA Risk Screening Do you have concerns about personal safety or safety in the home?: No Patient presents with: Left Foot - Established Patient, Callous Right Foot - Established Patient, Callous documented in this encounterBarnesville Hospital06-03-2022 Instructions* Patient Instructions* Marques Rangel - 09/20/2021 8:30 AM EDT Diabetes [...] it. Apply a bandage and wear a differentpair of shoes. Take Care of Your Toenails Cut toenails after bathing, when they are soft. Cut toenails straight across and smooth with a nail file. Avoid cutting into the corners of toes. Do not cut cuticles. If you have neuropathy (or decreased sensation in your feet) a ice cream scooper should always cut your toenails. Be Careful [...] make sure there are no foreign objects orrough areas. Avoid tight socks. Wear natural-fiber socks [...] Go to your health care provider or ice cream scooper to treat these conditions. documented in [place] encounterKimberly [place] [id number] Miscellaneous Notes* Telephone Encounter - Diamond Valdovinos - 08/15/2021 10:10 AM EDT Pt does want this prescription sent to [facility]. * Telephone Encounter - Alba Pantoja LPN - 08/15/2021 9:56 AM EDT In Apr rx was sent to [facility] Message left for pt to return call to verify pharmacy. * Telephone Encounter - Amber Hassan MA - 08/15/2021 8:36 AM EDT NOV none GABY 06/10/21 [facility] Patient electronically sent a request for the following prescription(s) Pending Prescriptions Disp Refills LANSOPRAZOLE 30 MG CAPSULE,DELAYED RELEASE 180 capsule 3 Sig: take 1 capsule by mouth twice a day FARHANA: Yes Patient aware RX will be sent to pharmacy. No need to notify patient. Please review. Amber Hassan MA * Telephone Encounter - Rimma Jacobs - 08/15/2021 8:29 AM EDT Patient calling about the status of the request for lansoprazole (PREVACID) 30 mg capsule [PharmacyMed Name: LANSOPRAZOLE DR 30 MG CAPSULE]. Patient has no more medication and is asking for it to befilled today. Patient would like to tow picker the medication late afternoon. documented in this encounterBarnesville Hospital04-18-2022 Miscellaneous Notes* Telephone Encounter - Hernesto Harvey APRN.CNP - 08/05/2021 4:16 PM EDT PDMP website checked and validated. All prescriptions have been APPROPRIATELY filled. No suspiciousactivity was identified. 08/05/2021 by Hernesto Harvey APRN.CNP * Telephone Encounter - Michelle Baird Ma - 08/05/2021 11:14 AM EDT Patient states she accidentally threw away her medication. Asking for refill. Please advise documented in this encounterBarnesville Hospital02-25-2022 Miscellaneous Notes* Telephone Encounter - Delmi Fay LPN - 06/14/2021 4:29 PM EST Spoke with Brittney GE concerning the form needing signed by Dr Rueda due to patient being dischargedfrom PT. Delmi Fay LPN * Telephone Encounter - Delmi Fay LPN - 06/13/2021 9:55 AM EST Forms forwarded to Dr. Rueda to address. Delmi Fay LPN * Telephone Encounter - Delmi Fay LPN - 06/11/2021 12:29 PM EST Received fax in office. Will forward to Dr Rueda to address. Delmi Fay HVAC RESIDENTIAL SERVICE TECHNICIAN * Telephone Encounter - Rosalba Ren RN - 06/11/2021 11:37 AM EST Helder from [facility] called and reports they have been trying to fax the POC for HH to have provider sign. Gave her fax # [phone], which is not where they had sent it before. Can also call Helder and leave voicemail on secure line at [phone]. documented in this encounterBarnesville Hospital01-05-2022 Miscellaneous Notes* Telephone Encounter - Rosalba Ren RN - 04/24/2021 4:48 PM EST Pt called in and reports that she has called [facility] to start sessions, but they keep telling her that they don't have the information. Pt believes she is doing home PT. The orders have been faxed over several times. Asked Pt what else [facility] needed and Pt said they wouldn't tell her just that they needed more information and that the provider knows what it is. documented in this encounterBarnesville Hospital11-15-2021 History of Present illness Narrative* Clinton Farrar Jr., - 03/04/2021 10:00 AM EST Images from the original note were not included. History of Present Illness Presence of Pain: complains of pain/discomfort Pain Location: back, left lower,back, left upper,shoulder, left Select Pain Scale: DVPRS (Defense and Veterans Pain Rating Scale) (Adult- Cognitively Intact) DVPRS: Rest: 4- mild pain DVPRS: Activity: 4- mild pain Select Pain Scale: DVPRS (Defense and Veterans Pain Rating Scale) (Adult- Cognitively Intact) Pain Frequency: constant Pain Quality: aching. Total time spent in this encounter was 31 minutes. Energy level is about the same - not the greatest in the world. Poor balance is the same. Dizziness is not really. Lightheadedness is no. Headaches. Joint pain is some. More in back and that. Patient is here for a 6 Month F/U.Patient states that she is having lower back [...] 132/84, pulse 77, height 1.6 m (5' 3), weight 92.1 kg (203 lb), SpO2 97 [...] multiple sites with negative rheumatoid factor Yes penitentiary current use of systemic steroids pen[facility]iary (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 of aspirin History of stroke [...] continue rec: ortho eval documented in this [facility]06-11-2020 History of Past illness Narrative* Problem [...] 08/12/2015 09/29/2019 BPPV (benign paroxysmal positional vertigo) 1008/201409/29/2019 Vertigo 02/02/2013 06/25/2015 Thoracic or lumbosacral neuritis or radiculitis, unspecified 03/01/2012 09/29/2019 Abnormality of gait 03/01/2012 06/25/2015 Pain in joint, lower leg 01/21/2010 016 Routine general medical exam ination at a health care facility 04/30/2009 06/25/2015 Overview: 04/30/2009, establish from Dr. Givens 06/25/2010, yearly check-up (60 minutes) Routine gynecological examination 04/30/2009 06/25/2015 Overview: [facility] Schmitz, [facility] [place] Tenosynovitis of foot and ankle 06/29/2008 04/30/2009 [...] Unspecified 01/13/2005 06/25/2015 Coronary artery disease involving [place] coron[place] y artery 09/29/2019 Overview: Dr. Pederson follows regularly; S/P PTCA and stenting at [facility], 2000 Last Assessment & Plan: Currently [...] of this encounter (statuses as of 08/15/2021) [facility] of Past illness Narrative* Problem [...] 06/25/2015 Overview: Dr. Schmitz, [facility] [place] Tenosynovitis of foot and ankle 06/29/2008 04/30/2009 [...] Unspecified 01/13/2005 06/25/2015 Coronary artery disease involving [place] coronar y artery 09/29/2019 Overview: Dr. Pederson follows regularly; S/P PTCA and stenting at [facility], 2000 Last Assessment & Plan: Currently [...] of this encounter (statuses as of 09/20/2021) [facility] of Past illness Narrative* Problem [...] 06/25/2015 Overview: Dr. Schmitz, [facility] [place] Tenosynovitis of foot and ankle 06/29/2008 04/30/2009 [...] Unspecified 01/13/2005 06/25/2015 Coronary artery disease involving [place] coron[place] artery 09/29/2019 Overview: Dr. Pederson follows regularly; S/P PTCA and stenting at [facility], 2000 Last Assessment & Plan: Currently [...] of this encounter (statuses as of 09/23/2021) [facility] of Past illness Narrative* Problem [...] 06/25/2015 Overview: Dr. Schmitz, [facility] [place] Tenosynovitis of foot and ankle 06/29/2008 04/30/2009 [...] Unspecified 01/13/2005 06/25/2015 Coronary artery disease involving [place] coronar [place] artery 09/29/2019 Overview: Dr. Pederson follows regularly; S/P PTCA and stenting at [facility], 2000 Last Assessment & Plan: Currently [...] of this encounter (statuses as of 09/26/2021) [facility] illness Narrative* Problem [...] 06/25/2015 Overview: Dr. Schmitz, [facility] [place] Tenosynovitis of foot and ankle 06/29/2008 04/30/2009 [...] Unspecified 01/13/2005 06/25/2015 Coronary artery disease involving [place] coron[place] artery 09/29/2019 Overview: Dr. Pederson follows regularly; S/P PTCA and stenting at [facility], 2000 Last Assessment & Plan: Currently [...] of this encounter (statuses as of 09/26/2021) [facility] illness Narrative* Problem [...] 06/25/2015 Overview: Dr. Schmitz, [facility] [place] Tenosynovitis of foot and ankle 06/29/2008 04/30/2009 Acute bronchitis 05/18/2008 04/30/2009 Anemia, unspecified 12/04/2006 09/29/2019 Cellulitis and abscess of foot, except toes /10/200604/30/2009 Onychia and paronychia of toe 08/11/2006 Pain [...] Unspecified 01/13/2005 06/25/2015 Coronary artery disease involving [place] coron[place] artery 09/29/2019 Overview: Dr. Pederson follows regularly; S/P PTCA and stenting at [facility], 2000 Last Assessment & Plan: Currently [...] of this encounter (statuses as of 09/27/2021) [facility] illness Narrative* Problem [...] 06/25/2015 Overview: Dr. Schmitz, [facility] [place] Tenosynovitis of foot and ankle 06/29/2008 04/30/2009 [...] Unspecified 01/13/2005 06/25/2015 Coronary artery disease involving [place] coron[place] artery 09/29/2019 Overview: Dr. Pederson follows regularly; S/P PTCA and stenting at [facility], 2001 Last Assessment & Plan: Currently [...] of this encounter (statuses as of 10/14/2021) [facility] illness Narrative* Problem [...] 06/25/2015 Overview: Dr[facility] Schmitz, [facility] [place] Tenosynovitis of foot and ankle 06/29/2008 04/30/2009 [...] Unspecified 01/13/2005 06/25/2015 Coronary artery disease involving [place] coron[place] artery 09/29/2019 Overview: Dr. Pederson follows regularly; S/P PTCA and stenting at [facility], 2000 Last Assessment & Plan: Currently she has no chest pain or SOB. Dizziness and giddiness 01/11/20 10 Postsurgical percutaneous tr ansluminal coronary angioplasty [...] of this encounter (statuses as of 10/15/2021) [facility] Narrative* Problem [...] examination 04/30/2009 06/25/2015 Overview: [facility] Schmitz, [facility] [place] Tenosynovitis of foot and ankle 06/29/2008 04/30/2009 [...] Unspecified 01/13/2005 06/25/2015 Coronary artery disease involving [place] coron[place] artery 09/29/2019 Overview: Dr. Pederson follows regularly; S/P PTCA and stenting at [facility], 2000 Last Assessment & Plan: Currently [...] of this encounter (statuses as of 10/15/2021) [facility] Narrative* Problem [...] 06/25/2015 Overview: Dr[facility] Schmitz, [facility] [place] Tenosynovitis of foot and ankle 06/29/2008 04/30/2009 [...] Unspecified 01/13/2005 06/25/2015 Coronary artery disease involving [place] coronar [place] artery 09/29/2019 Overview: Dr. Pederson follows regularly; S/P PTCA and stenting at [facility], 2000 Last Assessment & Plan: Currently [...] of this encounter (statuses as of 10/23/2021) [facility] illness Narrative* Problem [...] 06/25/2015 Overview: Dr. Schmitz, [facility] [place] Tenosynovitis of foot and ankle 06/29/2008 04/30/2009 [...] Unspecified 01/13/2005 06/25/2015 Coronary artery disease involving [place] coron[place] artery 09/29/2019 Overview: Dr. Pederson follows regularly; S/P PTCA and stenting at [facility], 2000 Last Assessment & Plan: Currently [...] of this encounter (statuses as of 10/23/2021) [facility] Narrative* Problem [...] 06/25/2015 Overview: Dr. Schmitz, [facility] [place] Tenosynovitis of foot and ankle 06/29/2008 04/30/2009 [...] Unspecified 01/13/2005 06/25/2015 Coronary artery disease involving [place] coron[place] artery 09/29/2019 Overview: Dr. Pederson follows regularly; S/P PTCA and stenting at [facility], 2000 Last Assessment & Plan: Currently [...] of this encounter (statuses as of 10/24/2021) [facility] Narrative* Problem [...] 06/25/2015 Overview: Dr. Schmitz, [facility] [place] Tenosynovitis of foot and ankle 06/29/2008 04/30/2009 [...] Unspecified 01/13/2005 06/25/2015 Coronary artery disease involving [place] coron[place] artery 09/29/2019 Overview: Dr. Pederson follows regularly; S/P PTCA and stenting at [facility], 2000 Last Assessment & Plan: Currently [...] of this encounter (statuses as of 10/24/2021) [facility] Narrative* Problem [...] 06/25/2015 Overview: Dr. Schmitz, [facility] Tenosynovitis of foot and ankle 06/29/2008 [...] Unspecified 01/13/2005 06/25/2015 Coronary artery disease involving [place] coron[place] artery 09/29/2019 Overview: Dr. Pederson follows regularly; S/P PTCA and stenting at [facility], 2000 Last Assessment & Plan: Currently [...] of this encounter (statuses as of 11/05/2021) [facility] Narrative* Problem [...] 06/25/2015 Overview: Dr. Schmitz, [facility] [place] Tenosynovitis of foot and ankle 06/29/2008 04/30/2009 [...] Unspecified 01/13/2005 06/25/2015 Coronary artery disease involving [place] coron[place] artery 09/29/2019 Overview: Dr. Pederson follows regularly; S/P PTCA and stenting at [facility], 2001 Last Assessment & Plan: Currently [...] of this encounter (statuses as of 11/13/2021) [facility] Narrative* Problem [...] 06/25/2015 Overview: Dr. Schmitz, [facility] [place] Tenosynovitis of foot and ankle 06/29/2008 04/30/2009 [...] Unspecified 01/13/2005 06/25/2015 Coronary artery disease involving [place] coron[place] artery 09/29/2019 Overview: Dr. Pederson follows regularly; S/P PTCA and stenting at [facility], 2001 Last Assessment & Plan: Currently [...] of this encounter (statuses as of 11/20/2021) [facility] Narrative* Problem [...] 06/25/2015 Overview: Dr. Schmitz, [facility] [place] Tenosynovitis of foot and ankle 06/29/2008 04/30/2009 Acute bronchitis 05/18/2008 04/30/2009 Anemia, unspecified 12/04/2006 09/29/2019 Cellulitis and abscess of foot, except toes /10/200604/30/2009 Onychia and paronychia of toe 08/11/2006 Pain [...] Unspecified 01/13/2005 06/25/2015 Coronary artery disease involving [place] coron[place] artery 09/29/2019 Overview: Dr. Pederson follows regularly; S/P PTCA and stenting at [facility], 2000 Last Assessment & Plan: Currently [...] of this encounter (statuses as of 11/21/2021) [facility] Narrative* Problem [...] 06/25/2015 Overview: Dr. Schmitz, [facility] [place] Tenosynovitis of foot and ankle 06/29/2008 04/30/2009 [...] Unspecified 01/13/2005 06/25/2015 Coronary artery disease involving [place] coron[place] artery 09/29/2019 Overview: Dr. Pederson follows regularly; S/P PTCA and stenting at [facility], 2000 Last Assessment & Plan: Currently [...] of this encounter (statuses as of 12/27/2021) [facility] Narrative* Problem [...] 06/25/2015 Overview: Dr. Schmitz, [facility] [place] Tenosynovitis of foot and ankle 06/29/2008 04/30/2009 [...] Unspecified 01/13/2005 06/25/2015 Coronary artery disease involving [place] coron[place] artery 09/29/2019 Overview: Dr. Pederson follows regularly; S/P PTCA and stenting at [facility], 2000 Last Assessment & Plan: Currently [...] of this encounter (statuses as of 12/31/2021) [facility] Narrative* Problem [...] 06/25/2015 Overview: Dr. Schmitz, [facility] [place] Tenosynovitis of foot and ankle 06/29/2008 04/30/2009 [...] Unspecified 01/13/2005 06/25/2015 Coronary artery disease involving [place] coron[place] artery 09/29/2019 Overview: Dr. Pederson follows regularly; S/P PTCA and stenting at [facility], 2000 Last Assessment & Plan: Currently [...] of this encounter (statuses as of 12/31/2021) [facility] Narrative* Problem [...] 06/25/2015 Overview: Dr. Schmitz, [facility] [place] Tenosynovitis of foot and ankle 06/29/2008 04/30/2009 [...] Unspecified 01/13/2005 06/25/2015 Coronary artery disease involving [place] coron[place] artery 09/29/2019 Overview: Dr. Pederson follows regularly; S/P PTCA and stenting at [facility], 2000 Last Assessment & Plan: Currently [...] of this encounter (statuses as of 01/22/2022) [facility] Narrative* Problem [...] examination 04/30/2009 06/25/2015 Overview: [facility]. Schmitz, [facility] [place] Tenosynovitis of foot and ankle 06/29/2008 04/30/2009 [...] Unspecified 01/13/2005 06/25/2015 Coronary artery disease involving [place] coronar [place] artery 09/29/2019 Overview: Dr. Pederson follows regularly; S/P PTCA and stenting at [facility], 2000 Last Assessment & Plan: Currently [...] of this encounter (statuses as of 01/23/2022) [facility] Narrative* Problem [...] 06/25/2015 Overview: Dr[facility] Schmitz, [facility] [place] Tenosynovitis of foot and ankle 06/29/2008 04/30/2009 [...] Unspecified 01/13/2005 06/25/2015 Coronary artery disease involving [place] coronar [place] artery 09/29/2019 Overview: Dr. Pederson follows regularly; S/P PTCA and stenting at [facility], 2000 Last Assessment & Plan: Currently [...] of this encounter (statuses as of 01/30/2022) [facility] Narrative* Problem [...] 06/25/2015 Overview: Dr. Schmitz, [facility] [place] Tenosynovitis of foot and ankle 06/29/2008 04/30/2009 [...] Unspecified 01/13/2005 06/25/2015 Coronary artery disease involving [place] coron[place] artery 09/29/2019 Overview: Dr. Pederson follows regularly; S/P PTCA and stenting at [facility], 2000 Last Assessment & Plan: Currently [...] of this encounter (statuses as of 01/31/2022) [facility] Narrative* Problem [...] 06/25/2015 Overview: Dr. Schmitz, [facility] Tenosynovitis of foot and ankle 06/29/2008 [...] Unspecified 01/13/2005 06/25/2015 Coronary artery disease involving [place] coronar [place] artery 09/29/2019 Overview: Dr. Pederson follows regularly; S/P PTCA and stenting at [facility], 2001 Last Assessment & Plan: Currently [...] of this encounter (statuses as of 02/04/2022) [facility] Narrative* Problem [...] 06/25/2015 Overview: Dr[facility] Schmitz, [facility] [place] Tenosynovitis of foot and ankle 06/29/2008 04/30/2009 [...] Unspecified 01/13/2005 06/25/2015 Coronary artery disease involving [place] coronar [place] artery 09/29/2019 Overview: Dr. Pederson follows regularly; S/P PTCA and stenting at [facility], 2000 Last Assessment & Plan: Currently [...] of this encounter (statuses as of 03/18/2022) [facility] Narrative* Problem [...] 06/25/2015 Overview: Dr. Schmitz, [facility] [place] Tenosynovitis of foot and ankle 06/29/2008 04/30/2009 [...] Unspecified 01/13/2005 06/25/2015 Coronary artery disease involving [place] coron[place] artery 09/29/2019 Overview: Dr. Pederson follows regularly; S/P PTCA and stenting at [facility], 2000 Last Assessment & Plan: Currently [...] of this encounter (statuses as of 04/03/2022) [facility] Narrative* Problem [...] 06/25/2015 Overview: Dr. Schmitz, [facility] [place] Tenosynovitis of foot and ankle 06/29/2008 04/30/2009 [...] Unspecified 01/13/2005 06/25/2015 Coronary artery disease involving [place] coron[place] artery 09/29/2019 Overview: Dr. Pederson follows regularly; S/P PTCA and stenting at [facility], 2000 Last Assessment & Plan: Currently [...] of this encounter (statuses as of 04/09/2022) [facility] Narrative* Problem [...] 06/25/2015 Overview: Dr. Schmitz, [facility] [place] Tenosynovitis of foot and ankle 06/29/2008 04/30/2009 [...] Unspecified 01/13/2005 06/25/2015 Coronary artery disease involving [place] coron[place] artery 09/29/2019 Overview: Dr. Pederson follows regularly; S/P PTCA and stenting at [facility], 2000 Last Assessment & Plan: Currently [...] of this encounter (statuses as of 04/13/2022) [facility] Narrative* Problem [...] 06/25/2015 Overview: Dr[facility] Schmitz, [facility] [place] Tenosynovitis of foot and ankle 06/29/2008 04/30/2009 [...] Unspecified 01/13/2005 06/25/2015 Coronary artery disease involving [place] coron[place] artery 09/29/2019 Overview: Dr. Pederson follows regularly; S/P PTCA and stenting at [facility], 2000 Last Assessment & Plan: Currently [...] of this encounter (statuses as of 04/13/2022) [facility] Narrative* Problem [...] 06/25/2015 Overview: [facility] Schmitz, [facility] [facility] [place] Tenosynovitis of foot and ankle 06/29/2008 04/30/2009 Acute bronchitis 05/18/2008 04/30/2009 Anemia, unspecified 12/04/2006 09/29/2019 Cellulitis and abscess of foot, except toes /10/200604/30/2009 Onychia and paronychia of toe 08/11/2006 Pain [...] Unspecified 01/13/2005 06/25/2015 Coronary artery disease involving [place] coron[place] artery 09/29/2019 Overview: Dr. Pederson follows regularly; S/P PTCA and stenting at [facility], 2000 Last Assessment & Plan: Currently [...] of this encounter (statuses as of 04/23/2022) [facility] History of Past illness Narrative* Problem [...] 06/25/2015 Overview: Dr. Schmitz, [facility] [place] Tenosynovitis of foot and ankle 06/29/2008 04/30/2009 [...] Unspecified 01/13/2005 06/25/2015 Coronary artery disease involving [place] coron[place] artery 09/29/2019 Overview: Dr. Pederson follows regularly; S/P PTCA and stenting at [facility], 2001 Last Assessment & Plan: Currently [...] of this encounter (statuses as of 05/14/2022) [facility] History of Past illness Narrative* Problem [...] 06/25/2015 Overview: Dr. Schmitz, [facility], [facility] [place] Tenosynovitis of foot and ankle 06/29/2008 04/30/2009 [...] Unspecified 01/13/2005 06/25/2015 Coronary artery disease involving [place] coron[place] artery 09/29/2019 Overview: Dr. Pederson follows regularly; S/P PTCA and stenting at [facility], 2000 Last Assessment & Plan: Currently she has no chest pain or SOB. Dizziness and giddiness 01/11/20 10 Postsurgical percutaneous tr ansluminal coronary angioplasty [...] of this encounter (statuses as of 05/23/2022) [facility] History of Past illness Narrative* Problem [...] examination 04/30/2009 06/25/2015 Overview: Dr. Schmitz, [facility], [facility] [place] Tenosynovitis of foot and ankle 06/29/2008 04/30/2009 [...] Unspecified 01/13/2005 06/25/2015 Coronary artery disease involving [place] coron[place] artery 09/29/2019 Overview: Dr. Pederson follows regularly; S/P PTCA and stenting at [facility], 2000 Last Assessment & Plan: Currently [...] of this encounter (statuses as of 05/24/2022) [facility] History of Past illness Narrative* Problem [...] 06/25/2015 Overview: Dr. Schmitz, [facility], [facility] [place] Tenosynovitis of foot and ankle 06/29/2008 04/30/2009 [...] Unspecified 01/13/2005 06/25/2015 Coronary artery disease involving [place] coron[place] artery 09/29/2019 Overview: Dr. Pederson follows regularly; S/P PTCA and stenting at [facility], 2000 Last Assessment & Plan: Currently [...] of this encounter (statuses as of 05/24/2022) [facility] History of Past illness Narrative* Problem [...] 06/25/2015 Overview: Dr. Schmitz, [facility], [facility] [place] Tenosynovitis of foot and ankle 06/29/2008 04/30/2009 [...] Unspecified 01/13/2005 06/25/2015 Coronary artery disease involving [place] coron[place] artery 09/29/2019 Overview: Dr. Pederson follows regularly; S/P PTCA and stenting at [facility], 2000 Last Assessment & Plan: Currently [...] of this encounter (statuses as of 05/29/2022) [facility] History of Past illness Narrative* Problem [...] 06/25/2015 Overview: Dr. Schmitz, [facility], [facility] [place] Tenosynovitis of foot and ankle 06/29/2008 04/30/2009 [...] Unspecified 01/13/2005 06/25/2015 Coronary artery disease involving [place] coron[place] artery 09/29/2019 Overview: Dr. Pederson follows regularly; S/P PTCA and stenting at [facility], 2000 Last Assessment & Plan: Currently [...] of this encounter (statuses as of 06/04/2022) [facility] History of Past illness Narrative* Problem [...] 06/25/2015 Overview: Dr. Schmitz, [facility], [facility] [place] Tenosynovitis of foot and ankle 06/29/2008 04/30/2009 [...] Unspecified 01/13/2005 06/25/2015 Coronary artery disease involving [place] coron[place] artery 09/29/2019 Overview: Dr. Pederson follows regularly; S/P PTCA and stenting at [facility], 2000 Last Assessment & Plan: Currently [...] of this encounter (statuses as of 06/04/2022) [facility] History of Past illness Narrative* Problem [...] 06/25/2015 Overview: Dr. Schmitz, [facility], [facility] Tenosynovitis of foot and ankle 06/29/2008 [...] Unspecified 01/13/2005 06/25/2015 Coronary artery disease involving [place] coron[place] artery 09/29/2019 Overview: Dr. Pederson follows regularly; S/P PTCA and stenting at [facility], 2000 Last Assessment & Plan: Currently [...] of this encounter (statuses as of 06/04/2022) [facility] History of Past illness Narrative* Problem [...] 06/25/2015 Overview: Dr. Schmitz, [facility], [facility] [place] Tenosynovitis of foot and ankle 06/29/2008 04/30/2009 [...] Unspecified 01/13/2005 06/25/2015 Coronary artery disease involving [place] coron[place] artery 09/29/2019 Overview: Dr. Pederson follows regularly; S/P PTCA and stenting at [facility], 2001 Last Assessment & Plan: Currently [...] of this encounter (statuses as of 06/11/2022) [facility] History of Past illness Narrative* Problem [...] 06/25/2015 Overview: Dr. Schmitz, [facility], [facility] [place] Tenosynovitis of foot and ankle 06/29/2008 04/30/2009 [...] Unspecified 01/13/2005 06/25/2015 Coronary artery disease involving [place] coron[place] artery 09/29/2019 Overview: Dr. Pederson follows regularly; S/P PTCA and stenting at [facility], 2001 Last Assessment & Plan: Currently [...] of this encounter (statuses as of 06/17/2022) [facility] History of Past illness Narrative* Problem [...] 06/25/2015 Overview: Dr. Schmitz, [facility], [facility] [place] Tenosynovitis of foot and ankle 06/29/2008 04/30/2009 Acute bronchitis 05/18/2008 04/30/2009 Anemia, unspecified 12/04/2006 09/29/2019 Cellulitis and abscess of foot, except toes /10/200604/30/2009 Onychia and paronychia of toe 08/11/2006 Pain [...] Unspecified 01/13/2005 06/25/2015 Coronary artery disease involving [place] coron[place] artery 09/29/2019 Overview: Dr. Pederson follows regularly; S/P PTCA and stenting at [facility], 2000 Last Assessment & Plan: Currently [...] of this encounter (statuses as of 06/20/2022) [facility] History of Past illness Narrative* Problem [...] 06/25/2015 Overview: Dr. Schmitz, [facility], [facility] [place] Tenosynovitis of foot and ankle 06/29/2008 04/30/2009 [...] Unspecified 01/13/2005 06/25/2015 Coronary artery disease involving [place] coron[place] artery 09/29/2019 Overview: Dr. Pederson follows regularly; S/P PTCA and stenting at [facility], 2000 Last Assessment & Plan: Currently [...] of this encounter (statuses as of 06/26/2022) [facility] History of Past illness Narrative* Problem [...] 06/25/2015 Overview: Dr. Schmitz, [facility], [facility] [place] Tenosynovitis of foot and ankle 06/29/2008 04/30/2009 [...] Unspecified 01/13/2005 06/25/2015 Coronary artery disease involving [place] coron[place] artery 09/29/2019 Overview: Dr. Pederson follows regularly; S/P PTCA and stenting at [facility], 2000 Last Assessment & Plan: Currently [...] of this encounter (statuses as of 07/09/2022) [facility] History of Past illness Narrative* Problem [...] 06/25/2015 Overview: Dr. Schmitz, [facility], [facility] [place] Tenosynovitis of foot and ankle 06/29/2008 04/30/2009 [...] Unspecified 01/13/2005 06/25/2015 Coronary artery disease involving [place] coron[place] artery 09/29/2019 Overview: Dr. Pederson follows regularly; S/P PTCA and stenting at [facility], 2000 Last Assessment & Plan: Currently [...] of this encounter (statuses as of 07/11/2022) [facility] History of Past illness Narrative* Problem [...] 06/25/2015 Overview: Dr. Schmitz, [facility], [facility] [place] Tenosynovitis of foot and ankle 06/29/2008 04/30/2009 [...] Unspecified 01/13/2005 06/25/2015 Coronary artery disease involving [place] coron[place] artery 09/29/2019 Overview: Dr. Pederson follows regularly; S/P PTCA and stenting at [facility], 2000 Last Assessment & Plan: Currently [...] of this encounter (statuses as of 07/17/2022) [facility] History of Past illness Narrative* Problem [...] examination 04/30/2009 06/25/2015 Overview: Dr. Schmitz, [facility], [facility] [place] Tenosynovitis of foot and ankle 06/29/2008 04/30/2009 [...] Unspecified 01/13/2005 06/25/2015 Coronary artery disease involving [place] coron[place] artery 09/29/2019 Overview: Dr. Pederson follows regularly; S/P PTCA and stenting at [facility], 2000 Last Assessment & Plan: Currently [...] of this encounter (statuses as of 07/17/2022) [facility] History of Past illness Narrative* Problem [...] 06/25/2015 Overview: Dr. Schmitz, [facility], [facility] [place] Tenosynovitis of foot and ankle 06/29/2008 04/30/2009 [...] Unspecified 01/13/2005 06/25/2015 Coronary artery disease involving [place] coron[place] artery 09/29/2019 Overview: Dr. Pederson follows regularly; S/P PTCA and stenting at [facility], 2000 Last Assessment & Plan: Currently [...] of this encounter (statuses as of 07/21/2022) [facility] History of Past illness Narrative* Problem [...] 06/25/2015 Overview: Dr. Schmitz, [facility], [facility] [place] Tenosynovitis of foot and ankle 06/29/2008 04/30/2009 [...] Unspecified 01/13/2005 06/25/2015 Coronary artery disease involving [place] coron[place] artery 09/29/2019 Overview: Dr. Pederson follows regularly; S/P PTCA and stenting at [facility], 2000 Last Assessment & Plan: Currently [...] of this encounter (statuses as of 07/25/2022) [facility] History of Past illness Narrative* Problem [...] 06/25/2015 Overview: Dr. Schmitz, [facility], [facility] Tenosynovitis of foot and ankle 06/29/2008 [...] Unspecified 01/13/2005 06/25/2015 Coronary artery disease involving [place] coron[place] artery 09/29/2019 Overview: Dr. Pederson follows regularly; S/P PTCA and stenting at [facility], 2001 Last Assessment & Plan: Currently [...] of this encounter (statuses as of 08/01/2022) [facility] History of Past illness Narrative* Problem [...] 06/25/2015 Overview: Dr. Schmitz, [facility], [facility] [place] Tenosynovitis of foot and ankle 06/29/2008 04/30/2009 [...] Unspecified 01/13/2005 06/25/2015 Coronary artery disease involving [place] coron[place] artery 09/29/2019 Overview: Dr. Pederson follows regularly; S/P PTCA and stenting at [facility], 2000 Last Assessment & Plan: Currently [...] of this encounter (statuses as of 08/04/2022) [facility] History of Past illness Narrative* Problem [...] 06/25/2015 Overview: Dr. Schmitz, [facility], [facility] [place] Tenosynovitis of foot and ankle 06/29/2008 04/30/2009 [...] Unspecified 01/13/2005 06/25/2015 Coronary artery disease involving [place] coron[place] artery 09/29/2019 Overview: Dr. Pederson follows regularly; S/P PTCA and stenting at [facility], 2000 Last Assessment & Plan: Currently [...] of this encounter (statuses as of 08/07/2022) [facility] History of Past illness Narrative* Problem [...] 06/25/2015 Overview: Dr. Schmitz, [facility], [facility] [place] Tenosynovitis of foot and ankle 06/29/2008 04/30/2009 [...] Unspecified 01/13/2005 06/25/2015 Coronary artery disease involving [place] coron[place] artery 09/29/2019 Overview: Dr. Pederson follows regularly; S/P PTCA and stenting at [facility], 2000 Last Assessment & Plan: Currently [...] of this encounter (statuses as of 08/07/2022) [facility] History of Past illness Narrative* Problem [...] 06/25/2015 Overview: Dr. Schmitz, [facility], [facility] [place] Tenosynovitis of foot and ankle 06/29/2008 04/30/2009 [...] Unspecified 01/13/2005 06/25/2015 Coronary artery disease involving [place] coron[place] artery 09/29/2019 Overview: Dr. Pederson follows regularly; S/P PTCA and stenting at [facility], 2000 Last Assessment & Plan: Currently [...] of this encounter (statuses as of 08/08/2022) [facility] History of Past illness Narrative* Problem [...] 06/25/2015 Overview: Dr. Schmitz, [facility], [facility] [place] Tenosynovitis of foot and ankle 06/29/2008 04/30/2009 [...] Unspecified 01/13/2005 06/25/2015 Coronary artery disease involving [place] coron[place] artery 09/29/2019 Overview: Dr. Pederson follows regularly; S/P PTCA and stenting at [facility], 2000 Last Assessment & Plan: Currently [...] of this encounter (statuses as of 08/08/2022) [facility] History of Past illness Narrative* Problem [...] 06/25/2015 Overview: Dr. Schmitz, [facility], [facility] [place] Tenosynovitis of foot and ankle 06/29/2008 04/30/2009 [...] Unspecified 01/13/2005 06/25/2015 Coronary artery disease involving [place] coron[place] artery 09/29/2019 Overview: Dr. Pederson follows regularly; S/P PTCA and stenting at [facility], 2000 Last Assessment & Plan: Currently [...] of this encounter (statuses as of 08/21/2022) [facility] History of Past illness Narrative* Problem [...] 06/25/2015 Overview: Dr. Schmitz, [facility], [facility] [place] Tenosynovitis of foot and ankle 06/29/2008 04/30/2009 [...] Unspecified 01/13/2005 06/25/2015 Coronary artery disease involving [place] coron[place] artery 09/29/2019 Overview: Dr. Pederson follows regularly; S/P PTCA and stenting at [facility], 2001 Last Assessment & Plan: Currently [...] of this encounter (statuses as of 10/02/2022) [facility] History of Past illness Narrative* Problem [...] 06/25/2015 Overview: Dr. Schmitz, [facility], [facility] [place] Tenosynovitis of foot and ankle 06/29/2008 04/30/2009 [...] Unspecified 01/13/2005 06/25/2015 Coronary artery disease involving [place] coron[place] artery 09/29/2019 Overview: Dr. Pederson follows regularly; S/P PTCA and stenting at [facility], 2000 Last Assessment & Plan: Currently she has no chest pain or SOB. Dizziness and giddiness 01/11/20 10 Postsurgical percutaneous tr ansluminal coronary angioplasty [...] of this encounter (statuses as of 10/10/2022) [facility] History of Past illness Narrative* Problem [...] examination 04/30/2009 06/25/2015 Overview: Dr. Schmitz, [facility], [facility] [place] Tenosynovitis of foot and ankle 06/29/2008 04/30/2009 [...] Unspecified 01/13/2005 06/25/2015 Coronary artery disease involving [place] coron[place] artery 09/29/2019 Overview: Dr. Pederson follows regularly; S/P PTCA and stenting at [facility], 2000 Last Assessment & Plan: Currently [...] of this encounter (statuses as of 10/15/2022) [facility] History of Past illness Narrative* Problem [...] 06/25/2015 Overview: Dr. Schmitz, [facility], [facility] [place] Tenosynovitis of foot and ankle 06/29/2008 04/30/2009 [...] Unspecified 01/13/2005 06/25/2015 Coronary artery disease involving [place] coron[place] artery 09/29/2019 Overview: Dr. Pederson follows regularly; S/P PTCA and stenting at [facility], 2000 Last Assessment & Plan: Currently [...] of this encounter (statuses as of 10/23/2022) [facility] History of Past illness Narrative* Problem [...] 06/25/2015 Overview: Dr. Schmitz, [facility], [facility] [place] Tenosynovitis of foot and ankle 06/29/2008 04/30/2009 [...] 01/13/2005 06/25/2015 Coronary artery disease invo lving [place] coronary artery 09/29/2019 Overview: Dr. Pederson follows regularly; S/P PTCA and stenting at [facility], 2000 Last Assessment & Plan: Currently [...] of this encounter (statuses as of 11/18/2022) [facility] of Past illness Narrative* Problem [...] 06/25/2015 Overview: Dr. Schmitz, [facility], [facility] [place] Tenosynovitis of foot and ankle 06/29/2008 04/30/2009 [...] 01/13/2005 06/25/2015 Coronary artery disease invo lving [place] coronary artery 09/29/2019 Overview: Dr. Pederson follows regularly; S/P PTCA and stenting at [facility], 2000 Last Assessment & Plan: Currently [...] of this encounter (statuses as of 11/18/2022) [facility] of Past illness Narrative* Problem [...] 06/25/2015 Overview: Dr. Schmitz, [facility], [facility] [place] Tenosynovitis of foot and ankle 06/29/2008 04/30/2009 [...] 01/13/2005 06/25/2015 Coronary artery disease invo lving [place] coronary artery 09/29/2019 Overview: Dr. Pederson follows regularly; S/P PTCA and stenting at [facility], 2000 Last Assessment & Plan: Currently [...] of this encounter (statuses as of 11/25/2022) [facility] of Past illness Narrative* Problem [...] 06/25/2015 Overview: Dr. Schmitz, [facility], [facility] Tenosynovitis of foot and ankle 06/29/2008 [...] 01/13/2005 06/25/2015 Coronary artery disease invo lving [place] coronary artery 09/29/2019 Overview: Dr. Pederson follows regularly; S/P PTCA and stenting at [facility], 2000 Last Assessment & Plan: Currently [...] of this encounter (statuses as of 12/03/2022) [facility] of Past illness Narrative* Problem [...] 06/25/2015 Overview: Dr. Schmitz, [facility], [facility] [place] Tenosynovitis of foot and ankle 06/29/2008 04/30/2009 [...] 01/13/2005 06/25/2015 Coronary artery disease invo lving [place] coronary artery 09/29/2019 Overview: Dr. Pederson follows regularly; S/P PTCA and stenting at [facility], 2000 Last Assessment & Plan: Currently [...] of this encounter (statuses as of 12/04/2022) [facility] of Past illness Narrative* Problem [...] 06/25/2015 Overview: Dr. Schmitz, [facility], [facility] [place] Tenosynovitis of foot and ankle 06/29/2008 04/30/2009 [...] 01/13/2005 06/25/2015 Coronary artery disease invo lving [place] coronary artery 09/29/2019 Overview: Dr. Pederson follows regularly; S/P PTCA and stenting at [facility], 2000 Last Assessment & Plan: Currently [...] of this encounter (statuses as of 12/05/2022) [facility] of Past illness Narrative* Problem [...] 06/25/2015 Overview: Dr. Schmitz, [facility], [facility] [place] Tenosynovitis of foot and ankle 06/29/2008 04/30/2009 [...] 01/13/2005 06/25/2015 Coronary artery disease invo lving [place] coronary artery 09/29/2019 Overview: Dr. Pederson follows regularly; S/P PTCA and stenting at [facility], 2000 Last Assessment & Plan: Currently [...] of this encounter (statuses as of 12/10/2022) [facility] of Past illness Narrative* Problem [...] 06/25/2015 Overview: Dr. Schmitz, [facility], [facility] Tenosynovitis of foot and ankle 06/29/2008 [...] 01/13/2005 06/25/2015 Coronary artery disease invo lving [place] coronary artery 09/29/2019 Overview: Dr. Pederson follows regularly; S/P PTCA and stenting at [facility], 2001 Last Assessment & Plan: Currently [...] of this encounter (statuses as of 12/18/2022) [facility] of Past illness Narrative* Problem [...] 06/25/2015 Overview: Dr. Schmitz, [facility], [facility] [place] Tenosynovitis of foot and ankle 06/29/2008 04/30/2009 [...] 01/13/2005 06/25/2015 Coronary artery disease invo lving [place] coronary artery 09/29/2019 Overview: Dr. Pederson follows regularly; S/P PTCA and stenting at [facility], 2001 Last Assessment & Plan: Currently [...] of this encounter (statuses as of 01/10/2023) [facility] of Past illness Narrative* Problem [...] 06/25/2015 Overview: Dr. Schmitz, [facility], [facility] [place] Tenosynovitis of foot and ankle 06/29/2008 04/30/2009 [...] 01/13/2005 06/25/2015 Coronary artery disease invo lving [place] coronary artery 09/29/2019 Overview: Dr. Pederson follows regularly; S/P PTCA and stenting at [facility], 2000 Last Assessment & Plan: Currently [...] of this encounter (statuses as of 02/22/2023) [facility] of Past illness Narrative* Problem [...] 06/25/2015 Overview: Dr. Schmitz, [facility], [facility] [place] Tenosynovitis of foot and ankle 06/29/2008 04/30/2009 [...] 01/13/2005 06/25/2015 Coronary artery disease invo lving [place] coronary artery 09/29/2019 Overview: Dr. Pederson follows regularly; S/P PTCA and stenting at [facility], 2001 Last Assessment & Plan: Currently [...] of this encounter (statuses as of 02/22/2023) [facility] of Past illness Narrative* Problem [...] examination 04/30/2009 06/25/2015 Overview: Dr. Schmitz, [facility], [facility] [place] Tenosynovitis of foot and ankle 06/29/2008 04/30/2009 [...] 01/13/2005 06/25/2015 Coronary artery disease invo lving [place] coronary artery 09/29/2019 Overview: Dr. Pederson follows regularly; S/P PTCA and stenting at [facility], 2000 Last Assessment & Plan: Currently [...] of this encounter (statuses as of 02/24/2023) [facility] of Past illness Narrative* Problem [...] 06/25/2015 Overview: Dr. Schmitz, [facility] [place] Tenosynovitis of foot and ankle 06/29/2008 04/30/2009 [...] 01/13/2005 06/25/2015 Coronary artery disease invo lving [place] coronary artery 09/29/2019 Overview: Dr. Pederson follows regularly; S/P PTCA and stenting at [facility], 2000 Last Assessment & Plan: Currently [...] of this encounter (statuses as of 02/24/2023) [facility] of Past illness Narrative* Problem [...] 06/25/2015 Overview: Dr. Schmitz, [facility] Tenosynovitis of foot and ankle 06/29/2008 [...] 01/13/2005 06/25/2015 Coronary artery disease invo lving [place] coronary artery 09/29/2019 Overview: Dr. Pederson follows regularly; S/P PTCA and stenting at [facility], 2000 Last Assessment & Plan: Currently [...] of this encounter (statuses as of 03/05/2023) [facility] Past illness Narrative* Problem [...] 06/25/2015 Overview: Dr. Schmitz, [facility] [place] Tenosynovitis of foot and ankle 06/29/2008 04/30/2009 [...] 01/13/2005 06/25/2015 Coronary artery disease invo lving [place] coronary artery 09/29/2019 Overview: Dr. Pederson follows regularly; S/P PTCA and stenting at [facility], 2000 Last Assessment & Plan: Currently [...] of this encounter (statuses as of 03/10/2023) [facility] History of Past illness Narrative* Problem [...] 06/25/2015 Overview: Dr. Schmitz, [facility] [place] Tenosynovitis of foot and ankle 06/29/2008 04/30/2009 [...] 01/13/2005 06/25/2015 Coronary artery disease invo lving [place] coronary artery 09/29/2019 Overview: Dr. Pederson follows regularly; S/P PTCA and stenting at [facility], 2000 Last Assessment & Plan: Currently [...] of this encounter (statuses as of 03/18/2023) [facility] History of Past illness Narrative* Problem [...] 06/25/2015 Overview: Dr. Schmitz, [facility] [place] Tenosynovitis of foot and ankle 06/29/2008 04/30/2009 [...] 01/13/2005 06/25/2015 Coronary artery disease invo lving [place] coronary artery 09/29/2019 Overview: Dr. Pederson follows regularly; S/P PTCA and stenting at [facility], 2000 Last Assessment & Plan: Currently [...] of this encounter (statuses as of 05/22/2023) [facility] History of Past illness Narrative* Problem [...] 06/25/2015 Overview: Dr. Schmitz, [facility] [place] Tenosynovitis of foot and ankle 06/29/2008 04/30/2009 [...] 01/13/2005 06/25/2015 Coronary artery disease invo lving [place] coronary artery 09/29/2019 Overview: Dr. Pederson follows regularly; S/P PTCA and stenting at [facility], 2000 Last Assessment & Plan: Currently [...] as of this encounter (statuses as of 06/03/2023) [facility] History of Past illness Narrative* Problem [...] examination 04/30/2009 06/25/2015 Overview: Dr. Schmitz, [facility], [facility] [place] Tenosynovitis of foot and ankle 06/29/2008 04/30/2009 [...] 01/13/2005 06/25/2015 Coronary artery disease invo lving [place] coronary artery 09/29/2019 Overview: Dr. Pederson follows regularly; S/P PTCA and stenting at [facility], 2000 Last Assessment & Plan: Currently [...] as of this encounter (statuses as of 06/12/2023) [facility] History of Past illness Narrative* Problem [...] 06/25/2015 Overview: Dr. Schmitz, [facility] [place] Tenosynovitis of foot and ankle 06/29/2008 04/30/2009 [...] 01/13/2005 06/25/2015 Coronary artery disease invo [place]ving [place] coronary artery 09/29/2019 Overview: Dr. Pederson follows regularly; S/P PTCA and stenting at [facility], 2000 Last Assessment & Plan: Currently [...] as of this encounter (statuses as of 06/24/2023) [facility] History of Past illness Narrative* Problem [...] 06/25/2015 Overview: Dr. Schmitz, [facility] [place] Tenosynovitis of foot and ankle 06/29/2008 04/30/2009 [...] 01/13/2005 06/25/2015 Coronary artery disease invo [place]ving [place] coronary artery 09/29/2019 Overview: Dr. Pederson follows regularly; S/P PTCA and stenting at [facility], 2001 Last Assessment & Plan: Currently [...] as of this encounter (statuses as of 06/25/2023) [facility] History of Past illness Narrative* Problem [...] 06/25/2015 Overview: Dr. Schmitz, [facility], [facility] [place] Tenosynovitis of foot and ankle 06/29/2008 04/30/2009 [...] 01/13/2005 06/25/2015 Coronary artery disease invo [place]ving [place] coronary artery 09/29/2019 Overview: Dr. Pederson follows regularly; S/P PTCA and stenting at [facility], 2000 Last Assessment & Plan: Currently [...] as of this encounter (statuses as of 06/25/2023) [facility] History of Past illness Narrative* Problem [...] 06/25/2015 Overview: Dr. Schmitz, [facility] [place] Tenosynovitis of foot and ankle 06/29/2008 04/30/2009 [...] 01/13/2005 06/25/2015 Coronary artery disease invo [place]ving [place] coronary artery 09/29/2019 Overview: Dr. Pederson follows regularly; S/P PTCA and stenting at [facility], 2001 Last Assessment & Plan: Currently [...] as of this encounter (statuses as of 06/26/2023) [facility] History of Past illness Narrative* Problem [...] 06/25/2015 Overview: Dr. Schmitz, [facility] [place] Tenosynovitis of foot and ankle 06/29/2008 04/30/2009 [...] 01/13/2005 06/25/2015 Coronary artery disease invo lving [place] coronary artery 09/29/2019 Overview: Dr. Pederson follows regularly; S/P PTCA and stenting at [facility], 2000 Last Assessment & Plan: Currently [...] as of this encounter (statuses as of 06/26/2023) [facility] History of Past illness Narrative* Problem [...] 06/25/2015 Overview: Dr. Schmitz, [facility] [place] Tenosynovitis of foot and ankle 06/29/2008 04/30/2009 [...] 01/13/2005 06/25/2015 Coronary artery disease invo lving [place] coronary artery 09/29/2019 Overview: Dr. Pederson follows regularly; S/P PTCA and stenting at [facility], 2000 Last Assessment & Plan: Currently [...] as of this encounter (statuses as of 06/26/2023) [facility] History of Past illness Narrative* Problem [...] 06/25/2015 Overview: Dr. Schmitz, [facility] [place] Tenosynovitis of foot and ankle 06/29/2008 04/30/2009 [...] 01/13/2005 06/25/2015 Coronary artery disease invo lving [place] coronary artery 09/29/2019 Overview: Dr. Pederson follows regularly; S/P PTCA and stenting at [facility], 2000 Last Assessment & Plan: Currently [...] as of this encounter (statuses as of 06/29/2023) [facility] History of Past illness Narrative* Problem [...] 06/25/2015 Overview: Dr. Schmitz, [facility] Tenosynovitis of foot and ankle 06/29/2008 [...] 01/13/2005 06/25/2015 Coronary artery disease invo lving [place] coronary artery 09/29/2019 Overview: Dr. Pederson follows regularly; S/P PTCA and stenting at [facility], 2001 Last Assessment & Plan: Currently [...] as of this encounter (statuses as of 07/02/2023) [facility] History of Past illness Narrative* Problem [...] 06/25/2015 Overview: Dr. Schmitz, [facility] [place] Tenosynovitis of foot and ankle 06/29/2008 04/30/2009 [...] 01/13/2005 06/25/2015 Coronary artery disease invo lving [place] coronary artery 09/29/2019 Overview: Dr. Pederson follows regularly; S/P PTCA and stenting at [facility], 2000 Last Assessment & Plan: Currently [...] as of this encounter (statuses as of 07/31/2023) [facility] History of Past illness Narrative* Problem [...] examination 04/30/2009 06/25/2015 Overview: Dr. Schmitz, [facility], [facility] [place] Tenosynovitis of foot and ankle 06/29/2008 04/30/2009 [...] 01/13/2005 06/25/2015 Coronary artery disease invo [place]ving [place] coronary artery 09/29/2019 Overview: Dr. Pederson follows regularly; S/P PTCA and stenting at [facility], 2000 Last Assessment & Plan: Currently [...] as of this encounter (statuses as of 08/04/2023) [facility] History of Past illness Narrative* Problem [...] 06/25/2015 Overview: Dr. Schmitz, [facility] [place] Tenosynovitis of foot and ankle 06/29/2008 04/30/2009 [...] 01/13/2005 06/25/2015 Coronary artery disease invo [place]ving [place] coronary artery 09/29/2019 Overview: Dr. 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 History of stroke [...] lumbosacral intervertebral disc [facility] Gastroesophageal reflux disease without esophagitis Esophageal reflux [facility] Diagnosis Onychomycosis- Primary Dermatophytosis of nail Pain in toe of left foot Pain in limb Pain in toe of right foot Pain in limb Diabetic polyneuropathy associated with type 2 diabetes mellitus (HCC) Hyperkeratosis Acquired keratoderma Hamm[place] of left foot [facility] Diagnosis Chronic constipation- Primary Unspecified constipation Bloating Flatulence, eructation, and gas pain [facility] Diagnosis Bilateral carotid artery stenosis- Primary Occlusion and stenosis of carotid artery without mention of cerebral infarction [facility] Diagnosis Encounter for screening mammogram for malignant neoplasm of breast Other screening mammogram [facility]* Diagnosis Restless legs Restless legs syndrome (RLS) Mixed hyperlipidemia [facility]* Diagnosis Chronic constipation- Primary Unspecified constipation Type 1 diabetes mellitus with diabetic neuropathy (HCC) Type I (juvenile type) diabetes mellitus with neurological manifestations, not stated as uncontrolled Essential hypertension Unspecified essential hypertension [facility]* Diagnosis Bilateral carotid artery stenosis- Primary Occlusion and stenosis of carotid artery without mention of cerebral infarction [facility] Diagnosis Hyperkeratosis- Primary Acquired keratoderma [place] of right foot [facility] Diagnosis Encounter for screening mammogram for malignant neoplasm of breast- Primary Other screening mammogram [facility]* Diagnosis Essential hypertension- Primary Unspecified essential hypertension 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) Anxiety state Anxiety state, unspecified Left shoulder pain, unspecified chronicity Chronic constipation Unspecified constipation Vitamin D deficiency Unspecified vitamin D deficiency [facility]* Diagnosis Onset Date Resolution Status Essential (primary) hypertension chronic Obesity chronic Type 1 diabetes mellitus chr onic Early satiety acute History of colitis acute Chronic constipation chronic [facility] Work Phone: Evaluation note* Diagnosis Anxiety state Anxiety state, unspecified Restless legs Restless legs syndrome (RLS) Type 1 diabetes mellitus with diabetic neuropathy (HCC) Type I (juvenile type) diabetes mellitus with neurological manifestations, not stated as uncontrolled Brittle diabetes (HCC) Type II or unspecified type diabetes mellitus without mention of complication, not stated as uncontrolled [facility] Diagnosis Contusion of lesser toe of right foot without damage to nail, initial encounter- Primary Onychomycosis Dermatophytosis of nail Pain in toe of left foot Pain in limb Pain in toe of right foot Pain in limb Hyperkeratosis Acquired keratoderma [facility] Diagnosis Pain in right foot Pain in limb [facility] Diagnosis Urinary tract infection without hematuria, site unspecified- Primary [facility] Diagnosis Urinary tract infection without hematuria, site unspecified- Primary [facility] Diagnosis Onset Date Resolution Status Early satiety acute History of colitis acute Chronic constipation chronic [facility] Work Phone: Evaluation note* Diagnosis Hyperkeratosis- Primary Acquired keratoderma Onychomycosis Dermatophytosis of nail Pain in toe of left foot Pain in limb Pain in toe of right foot Pain in limb Diabetic polyneuropathy associated with type 2 diabetes mellitus (HCC) Hammertoe of right foot Hammertoe of left foot [facility] Diagnosis Anxiety state Anxiety state, unspecified [facility] Diagnosis Gastroesophageal reflux disease without esophagitis Esophageal reflux Essential hypertension Unspecified essential hypertension [facility] Diagnosis Hyperkeratosis- Primary Acquired keratoderma Diabetic polyneuropathy associated with type 2 diabetes mellitus (HCC) [facility] Diagnosis Essential hypertension- Primary Unspecified essential hypertension Type 1 diabetes mellitus with diabetic neuropathy (HCC) Type I (juvenile type) diabetes mellitus with neurological manifestations, not stated as uncontrolled Bilateral edema of lower extremity Edema Dysuria Proteinuria, unspecified type Dark yellow-colored urine Mixed hyperlipidemia [place] and callosities [facility] Diagnosis Gastroesophageal reflux disease without esophagitis Esophageal reflux [facility] Acute cough [facility] Diagnosis Pneumonia of both lungs due to infectious organism, unspecified part of lung- Primary Mild intermittent asthma with acute exacerbation Unspecified asthma, with exacerbation [facility] Diagnosis Pneumonia of both lungs due to infectious organism, unspecified part of lung- Primary 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) [place] and callosities [facility] Diagnosis Pneumonia of both lungs due to infectious organism, unspecified part of lung- Primary [facility] Diagnosis Pneumonia of both lungs due to infectious organism, unspecified part of lung- Primary Shortness of breath Chest pain on breathing Painful respiration Cough, unspecified type [facility] Diagnosis Anxiety state Anxiety state, unspecified [facility] Diagnosis ILD (interstitial lung disease) (HCC)- Primary Postinflammatory pulmonary fibrosis [facility] Diagnosis Restless legs Restless legs syndrome (RLS) [facility] Diagnosis NSIP (nonspecific interstitial pneumonitis)- Primary [...] (TIA), and cerebral infarction without residual deficits penitentiary (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 of aspirin penitentiary current use of non-steroidal anti-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 (NSAID) Encounter for long-term (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 of non-steroidal anti-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 Long-term use of high-risk medication Long-term use of Plaquenil On statin therapy [facility] Diagnosis Rheumatoid arthritis, involving unspecified site, unspecified whether rheumatoid factor present (HCC)- Primary Interstitial lung disease (HCC) Postinflammatory pulmonary fibrosis [facility]* Diagnosis Medicare annual wellness visit, subsequent- Primary Routine general medical examination at a health care facility Anxiety state Anxiety state, unspecified Essential hypertension Unspecified essential hypertension Type 1 diabetes mellitus with diabetic neuropathy (HCC) Type I (juvenile type) diabetes mellitus with neurological manifestations, not stated as uncontrolled Mixed hyperlipidemia Gastroesophageal reflux disease without esophagitis Esophageal reflux [facility] Diagnosis Screening mammogram, encounter for- Primary [facility] Diagnosis Onset Date Resolution Status Atherosclerosis of coronary artery of [place] heart without angina pectoris chronic Essential (primary) hypertension chronic Hyperlipidemia chronic Interstitial lung disease [facility] Interstitial lung disease [facility] Work Phone: Evaluation note* Diagnosis Secondary pulmonary arterial hypertension- Primary [...] not elsewhere classified [facility] Diagnosis Bilateral carotid artery stenosis- Primary Occlusion and stenosis of carotid artery without mention of cerebral infarction [facility] Diagnosis Left hip pain- Primary Pain [...] macular edema (HCC) [facility] Diagnosis NSIP (nonspecific interstitial pneumonitis) Other specified alveolar and parietoalveolar pneumonopathies Interstitial lung disease Postinflammatory pulmonary fibrosis [facility] Diagnosis Secondary pulmonary arterial hypertension [facility] Diagnosis NSIP (nonspecific interstitial pneumonitis) Other specified alveolar and parietoalveolar pneumonopathies Interstitial lung disease Postinflammatory pulmonary fibrosis [facility] Diagnosis Anxiety state Anxiety state, unspecified [facility] Diagnosis Pulmonary fibrosis- Primary Postinflammatory pulmonary fibrosis Restrictive lung disease Other diseases of lung, not elsewhere classified SOLE on CPAP Obstructive sleep apnea (adult) (pediatric) Uncomplicated asthma, unspecified asthma severity, unspecified whether persistent Screening for viral disease Special screening examination for unspecified viral disease documented [facility] this encounter [facility]* Diagnosis 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)- Primary Hypertension, unspecified type Insomnia, unspecified type Rheumatoid arthritis, involving unspecified site, unspecified whether rheumatoid factor present (HCC) Left hip pain Pain in joint, pelvic region and thigh documented [facility]* Diagnosis Rheumatoid arthritis of multiple sites with negative rheumatoid factor- Primary History of rheumatoid arthritis Personal history of arthritis History of stroke Transient ischemic attack (TIA), and cerebral infarction without residual deficits 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-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 (NSAID) Encounter for long-term (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 of non-steroidal anti-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 of systemic 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 Encounter for [...] thoracolumbar intervertebral disc [facility] Diagnosis Onset Date Resolution Status Insulin pump titration acute Essential (primary) hypertension chronic Hyperlipidemia chronic Obesity chronic Presence of insulin pump chr onic Type 1 diabetes mellitus chr onic Essential (primary) hypertension chronic Presence of insulin pump chr onic Type 1 diabetes mellitus chr onic [facility] Work Phone: Evaluation note* Diagnosis Screening mammogram, encounter for documented in this encounter [facility] note* Diagnosis Chest pain on breathing Painful respiration Shortness of breath Elevated d-dimer Abnormal coagulation profile documented in this encounter [facility] note* Diagnosis Seropositive rheumatoid arthritis (HCC)- Primary Rheumatoid arthritis Interstitial lung disease (HCC) Postinflammatory pulmonary fibrosis Long-term use of Plaquenil Encounter for long-term (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 of other medications Osteopenia of right hip [facility] Diagnosis Osteopenia of right hip [facility] Diagnosis Onset Date Resolution Status Essential (primary) hypertension chronic Presence of insulin pump chr onic Type 1 diabetes mellitus chr onic Chronic constipation chronic Gastroparesis chronic [facility] Work Phone: Evaluation note* Diagnosis Right knee pain, unspecified chronicity- Primary Fall, initial encounter [facility]* Diagnosis Type 1 diabetes mellitus with polyneuropathy (HCC)- Primary Type I (juvenile type) diabetes mellitus with neurological manifestations, not stated as uncontrolled 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) Class 2 severe obesity with serious comorbidity and body mass index (BMI) of 39.0 to 39.9 in adult, unspecified obesity type (HCC) documented [facility]* Diagnosis Right knee pain, unspecified chronicity- Primary [facility] Diagnosis Patellar tendon strain, right, initial encounter- Primary Right knee pain, unspecified chronicity [facility]* Diagnosis Seropositive rheumatoid arthritis (HCC)- Primary Rheumatoid arthritis Interstitial lung disease (HCC) Postinflammatory pulmonary fibrosis Long-term use of Plaquenil Encounter for long-term (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 of other medications [facility]* Diagnosis 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)- Primary [facility]* Diagnosis Obesity, Class I, BMI 30-34.9- Primary Obesity, unspecified 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) Dietary counseling Dietary surveillance and counseling [facility] Diagnosis Restrictive lung disease Other diseases of lung, not elsewhere classified Pulmonary fibrosis Postinflammatory pulmonary fibrosis Uncomplicated asthma, unspecified asthma severity, unspecified whether persistent [facility] Restrictive lung disease Other diseases of lung, not elsewhere classified Pulmonary fibrosis Postinflammatory pulmonary fibrosis Uncomplicated asthma, unspecified asthma severity, unspecified whether persistent [facility] Diagnosis Interstitial lung disease Postinflammatory pulmonary fibrosis [facility] Diagnosis Essential hypertension- Primary Unspecified essential hypertension Type 1 diabetes mellitus with diabetic neuropathy (HCC) Type I (juvenile type) diabetes mellitus with neurological manifestations, not stated as uncontrolled Mixed hyperlipidemia Gastroesophageal reflux disease without esophagitis Esophageal reflux Restless legs Restless legs syndrome (RLS) Multiple falls Personal history of fall Bruising Contusion of unspecified site [facility] Diagnosis Pulmonary fibrosis- Primary Postinflammatory pulmonary fibrosis Uncomplicated asthma, unspecified asthma severity, unspecified whether persistent SOLE on CPAP Obstructive sleep apnea (adult) (pediatric) documented in this encounter [facility] note* Diagnosis 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)- Primary Obesity, Class I, BMI 30-34.9 Obesity, unspecified Gastroparesis Dietary counseling Dietary surveillance and counseling documented in this encounter [facility] note* Diagnosis 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)- Primary Type 1 diabetes mellitus with polyneuropathy (HCC) Type I (juvenile type) diabetes mellitus with neurological manifestations, not stated as uncontrolled Class 2 severe obesity with serious comorbidity and body mass index (BMI) of 39.0 to 39.9 in adult, unspecified obesity type (HCC) [facility] Diagnosis 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) Type 1 diabetes mellitus with polyneuropathy (HCC) Type I (juvenile type) diabetes mellitus with neurological manifestations, not stated as uncontrolled [facility] Diagnosis 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)- Primary [facility] Diagnosis Carotid stenosis, asymptomatic, bilateral- Primary [facility] Diagnosis Visit for screening mammogram- Primary Other screening mammogram [facility] Diagnosis Anxiety state Anxiety state, unspecified [facility] Diagnosis Type 1 diabetes mellitus with mild nonproliferative retinopathy of both eyes, macular edema presence unspecified (HCC)- Primary Diabetic autonomic neuropathy associated with type 1 diabetes mellitus (HCC) Gastroparesis due to secondary diabetes (HCC) Secondary diabetes mellitus with neurological manifestations, not stated as uncontrolled, or unspecified [facility] Diagnosis Carotid stenosis, asymptomatic, bilateral- Primary documented in this encounter [facility] note* Diagnosis Intertrigo- Primary Other specified erythematous condition [facility] Diagnosis Restless legs Restless legs syndrome (RLS) documented in this encounter [facility] note* Diagnosis Establishing care with new doctor, encounter for- Primary Other reasons for seeking consultation 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, uncontrolled Obstructive sleep apnea syndrome Obstructive sleep apnea (adult) (pediatric) Atherosclerosis of [place] coronary artery of [place] heart without angina pectoris Essential hypertension with goal blood pressure less than 140/90 Restless legs syndrome (RLS) Coronary artery disease involving [place] coronary artery of [place] heart without angina pectoris Type 1 diabetes mellitus with diabetic neuropathy (HCC)- Primary Type I (juvenile type) diabetes mellitus with neurological manifestations, not stated as uncontrolled Obstructive sleep apnea syndrome Obstructive sleep apnea (adult) (pediatric) Essential hypertension Unspecified essential hypertension Encounter for screening mammogram for malignant neoplasm of breast Other screening mammogram Vitamin D deficiency- Primary Unspecified vitamin D deficiency OSTEOPENIA Disorder of bone and cartilage, unspecified Type 1 diabetes mellitus with diabetic neuropathy (HCC) Type I (juvenile type) diabetes mellitus with neurological manifestations, not stated as uncontrolled Onychomycosis Dermatophytosis of nail Uncontrolled type 1 diabetes mellitus with other ophthalmic complication Candidiasis of breast Other candidiasis of other specified sites 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 Diabetic ketoacidosis without coma associated with type 1 diabetes mellitus (HCC) Dehydration Hyperkalemia Hyperpotassemia Skin lesion of breast Unspecified breast disorder Type 1 diabetes mellitus with diabetic neuropathy (HCC) Type I (juvenile type) diabetes mellitus with neurological manifestations, not stated as uncontrolled Edema Uncontrolled type 1 diabetes mellitus with ophthalmic complication Gastroesophageal reflux disease without esophagitis Esophageal reflux Constipation, unspecified constipation type Anxiety state Anxiety state, unspecified Coronary atherosclerosis Coronary atherosclerosis of unspecified type of vessel, [place] or graft Essential hypertension Unspecified essential hypertension Restless legs Restless legs syndrome (RLS) Mild intermittent asthma with acute exacerbation Unspecified asthma, with exacerbation Mixed hyperlipidemia 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, uncontrolled Rash Rash and other nonspecific skin eruption Coronary artery disease Asthma Unspecified asthma SHERLYN (acute kidney injury) (HCC) Acute kidney failure, unspecified 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, not stated as uncontrolled Hyperlipidemia Other and unspecified hyperlipidemia GERD (gastroesophageal reflux disease) Esophageal reflux Insomnia, unspecified type- Primary Type 1 diabetes mellitus with diabetic neuropathy (HCC) Type I (juvenile type) diabetes mellitus with neurological manifestations, not stated as uncontrolled Mixed hyperlipidemia [facility] Diagnosis Establishing care with new doctor, encounter for- Primary Other reasons for seeking consultation 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, uncontrolled Obstructive sleep apnea syndrome Obstructive sleep apnea (adult) (pediatric) Atherosclerosis of [place] coronary artery of [place] heart without angina pectoris Essential hypertension with goal blood pressure less than 140/90 Restless legs syndrome (RLS) Coronary artery disease involving [place] coronary artery of [place] heart without angina pectoris Type 1 diabetes mellitus with diabetic neuropathy (HCC)- Primary Type I (juvenile type) diabetes mellitus with neurological manifestations, not stated as uncontrolled Obstructive sleep apnea syndrome Obstructive sleep apnea (adult) (pediatric) Essential hypertension Unspecified essential hypertension Encounter for screening mammogram for malignant neoplasm of breast Other screening mammogram Vitamin D deficiency- Primary Unspecified vitamin D deficiency OSTEOPENIA Disorder of bone and cartilage, unspecified Type 1 diabetes mellitus with diabetic neuropathy (HCC) Type I (juvenile type) diabetes mellitus with neurological manifestations, not stated as uncontrolled Onychomycosis Dermatophytosis of nail Uncontrolled type 1 diabetes mellitus with other ophthalmic complication Candidiasis of breast Other candidiasis of other specified sites 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 Diabetic ketoacidosis without coma associated with type 1 diabetes mellitus (HCC) Dehydration Hyperkalemia Hyperpotassemia Skin lesion of breast Unspecified breast disorder Type 1 diabetes mellitus with diabetic neuropathy (HCC) Type I (juvenile type) diabetes mellitus with neurological manifestations, not stated as uncontrolled Edema Uncontrolled type 1 diabetes mellitus with ophthalmic complication Gastroesophageal reflux disease without esophagitis Esophageal reflux Constipation, unspecified constipation type Anxiety state Anxiety state, unspecified Coronary atherosclerosis Coronary atherosclerosis of unspecified type of vessel, [place] or graft Essential hypertension Unspecified essential hypertension Restless legs Restless legs syndrome (RLS) Mild intermittent asthma with acute exacerbation Unspecified asthma, with exacerbation Mixed hyperlipidemia 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, uncontrolled Rash Rash and other nonspecific skin eruption Coronary artery disease Asthma Unspecified asthma SHERLYN (acute kidney injury) ([facility]) Acute kidney failure, unspecified 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, not stated as uncontrolled Hyperlipidemia Other and unspecified hyperlipidemia GERD (gastroesophageal reflux disease) Esophageal reflux 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 ([facility]) Type 1 diabetes mellitus with polyneuropathy ([facility]) Type I (juvenile type) diabetes mellitus with neurological manifestations, not stated as uncontrolled [facility] Establishing care with new doctor, encounter for- Primary Other reasons for seeking consultation 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, uncontrolled Obstructive sleep apnea syndrome Obstructive sleep apnea (adult) (pediatric) Atherosclerosis of [place] coronary artery of [place] heart without angina pectoris Essential hypertension with goal blood pressure less than 140/90 Restless legs syndrome (RLS) Coronary artery disease involving [place] coronary artery of [place] heart without angina pectoris Type 1 diabetes mellitus with diabetic neuropathy ([facility])- Primary Type I (juvenile type) diabetes mellitus with neurological manifestations, not stated as uncontrolled Obstructive sleep apnea syndrome Obstructive sleep apnea (adult) (pediatric) Essential hypertension Unspecified essential hypertension Encounter for screening mammogram for malignant neoplasm of breast Other screening mammogram Vitamin D deficiency- Primary Unspecified vitamin D deficiency OSTEOPENIA Disorder of bone and cartilage, unspecified Type 1 diabetes mellitus with diabetic neuropathy ([facility]) Type I (juvenile type) diabetes mellitus with neurological manifestations, not stated as uncontrolled Onychomycosis Dermatophytosis of nail Uncontrolled type 1 diabetes mellitus with other ophthalmic complication Candidiasis of breast Other candidiasis of other specified sites 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 Diabetic ketoacidosis without coma associated with type 1 diabetes mellitus ([facility]) Dehydration Hyperkalemia Hyperpotassemia Skin lesion of breast Unspecified breast disorder Type 1 diabetes mellitus with diabetic neuropathy ([facility]) Type I (juvenile type) diabetes mellitus with neurological manifestations, not stated as uncontrolled Edema Uncontrolled type 1 diabetes mellitus with ophthalmic complication Gastroesophageal reflux disease without esophagitis Esophageal reflux Constipation, unspecified constipation type Anxiety state Anxiety state, unspecified Coronary atherosclerosis Coronary atherosclerosis of unspecified type of vessel, [place] or graft Essential hypertension Unspecified essential hypertension Restless legs Restless legs syndrome (RLS) Mild intermittent asthma with acute exacerbation Unspecified asthma, with exacerbation Mixed hyperlipidemia 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, uncontrolled Rash Rash and other nonspecific skin eruption Coronary artery disease Asthma Unspecified asthma SHERLYN (acute kidney injury) (HCC) Acute kidney failure, unspecified 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, not stated as uncontrolled Hyperlipidemia Other and unspecified hyperlipidemia GERD (gastroesophageal reflux disease) Esophageal reflux Type 1 diabetes mellitus with diabetic neuropathy (HCC)- Primary Type I (juvenile type) diabetes mellitus with neurological manifestations, not stated as uncontrolled [facility] Establishing care with new doctor, encounter for- Primary Other reasons for seeking consultation 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, uncontrolled Obstructive sleep apnea syndrome Obstructive sleep apnea (adult) (pediatric) Atherosclerosis of [place] coronary artery of [place] heart without angina pectoris Essential hypertension with goal blood pressure less than 140/90 Restless legs syndrome (RLS) Coronary artery disease involving [place] coronary artery of [place] heart without angina pectoris Type 1 diabetes mellitus with diabetic neuropathy (HCC)- Primary Type I (juvenile type) diabetes mellitus with neurological manifestations, not stated as uncontrolled Obstructive sleep apnea syndrome Obstructive sleep apnea (adult) (pediatric) Essential hypertension Unspecified essential hypertension Encounter for screening mammogram for malignant neoplasm of breast Other screening mammogram Vitamin D deficiency- Primary Unspecified vitamin D deficiency OSTEOPENIA Disorder of bone and cartilage, unspecified Type 1 diabetes mellitus with diabetic neuropathy (HCC) Type I (juvenile type) diabetes mellitus with neurological manifestations, not stated as uncontrolled Onychomycosis Dermatophytosis of nail Uncontrolled type 1 diabetes mellitus with other ophthalmic complication Candidiasis of breast Other candidiasis of other specified sites 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 Diabetic ketoacidosis without coma associated with type 1 diabetes mellitus (HCC) Dehydration Hyperkalemia Hyperpotassemia Skin lesion of breast Unspecified breast disorder Type 1 diabetes mellitus with diabetic neuropathy (HCC) Type I (juvenile type) diabetes mellitus with neurological manifestations, not stated as uncontrolled Edema Uncontrolled type 1 diabetes mellitus with ophthalmic complication Gastroesophageal reflux disease without esophagitis Esophageal reflux Constipation, unspecified constipation type Anxiety state Anxiety state, unspecified Coronary atherosclerosis Coronary atherosclerosis of unspecified type of vessel, [place] or graft Essential hypertension Unspecified essential hypertension Restless legs Restless legs syndrome (RLS) Mild intermittent asthma with acute exacerbation Unspecified asthma, with exacerbation Mixed hyperlipidemia 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, uncontrolled Rash Rash and other nonspecific skin eruption Coronary artery disease Asthma Unspecified asthma SHRELYN (acute kidney injury) (HCC) Acute kidney failure, unspecified 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, not stated as uncontrolled Hyperlipidemia Other and unspecified hyperlipidemia GERD (gastroesophageal reflux disease) Esophageal reflux Insomnia, unspecified type- Primary Intertrigo Other specified erythematous condition Seropositive rheumatoid arthritis (HCC)- Primary Rheumatoid arthritis Interstitial lung disease (HCC) Postinflammatory pulmonary fibrosis Long-term use of Plaquenil Encounter for long-term (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 of other medications Osteopenia of right hip [facility] Establishing care with new doctor, encounter for- Primary Other reasons for seeking consultation 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, uncontrolled Obstructive sleep apnea syndrome Obstructive sleep apnea (adult) (pediatric) Atherosclerosis of [place] coronary artery of [place] heart without angina pectoris Essential hypertension with goal blood pressure less than 140/90 Restless legs syndrome (RLS) Coronary artery disease involving [place] coronary artery of [place] heart without angina pectoris Type 1 diabetes mellitus with diabetic neuropathy (HCC)- Primary Type I (juvenile type) diabetes mellitus with neurological manifestations, not stated as uncontrolled Obstructive sleep apnea syndrome Obstructive sleep apnea (adult) (pediatric) Essential hypertension Unspecified essential hypertension Encounter for screening mammogram for malignant neoplasm of breast Other screening mammogram Vitamin D deficiency- Primary Unspecified vitamin D deficiency OSTEOPENIA Disorder of bone and cartilage, unspecified Type 1 diabetes mellitus with diabetic neuropathy (HCC) Type I (juvenile type) diabetes mellitus with neurological manifestations, not stated as uncontrolled Onychomycosis Dermatophytosis of nail Uncontrolled type 1 diabetes mellitus with other ophthalmic complication Candidiasis of breast Other candidiasis of other specified sites 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 Diabetic ketoacidosis without coma associated with type 1 diabetes mellitus (HCC) Dehydration Hyperkalemia Hyperpotassemia Skin lesion of breast Unspecified breast disorder Type 1 diabetes mellitus with diabetic neuropathy (HCC) Type I (juvenile type) diabetes mellitus with neurological manifestations, not stated as uncontrolled Edema Uncontrolled type 1 diabetes mellitus with ophthalmic complication Gastroesophageal reflux disease without esophagitis Esophageal reflux Constipation, unspecified constipation type Anxiety state Anxiety state, unspecified Coronary atherosclerosis Coronary atherosclerosis of unspecified type of vessel, [place] or graft Essential hypertension Unspecified essential hypertension Restless legs Restless legs syndrome (RLS) Mild intermittent asthma with acute exacerbation Unspecified asthma, with exacerbation Mixed hyperlipidemia 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, uncontrolled Rash Rash and other nonspecific skin eruption Coronary artery disease Asthma Unspecified asthma SHERLYN (acute kidney injury) (HCC) Acute kidney failure, unspecified 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, not stated as uncontrolled Hyperlipidemia Other and unspecified hyperlipidemia GERD (gastroesophageal reflux disease) Esophageal reflux Seropositive rheumatoid arthritis (HCC)- Primary Rheumatoid arthritis Interstitial lung disease (HCC) Postinflammatory pulmonary fibrosis Long-term use of Plaquenil Encounter for long-term (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 of other medications Osteopenia of right hip [facility] Establishing care with new doctor, encounter for- Primary Other reasons for seeking consultation 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, uncontrolled Obstructive sleep apnea syndrome Obstructive sleep apnea (adult) (pediatric) Atherosclerosis of [place] coronary artery of [place] heart without angina pectoris Essential hypertension with goal blood pressure less than 140/90 Restless legs syndrome (RLS) Coronary artery disease involving [place] coronary artery of [place] heart without angina pectoris Type 1 diabetes mellitus with diabetic neuropathy (HCC)- Primary Type I (juvenile type) diabetes mellitus with neurological manifestations, not stated as uncontrolled Obstructive sleep apnea syndrome Obstructive sleep apnea (adult) (pediatric) Essential hypertension Unspecified essential hypertension Encounter for screening mammogram for malignant neoplasm of breast Other screening mammogram Vitamin D deficiency- Primary Unspecified vitamin D deficiency OSTEOPENIA Disorder of bone and cartilage, unspecified Type 1 diabetes mellitus with diabetic neuropathy (HCC) Type I (juvenile type) diabetes mellitus with neurological manifestations, not stated as uncontrolled Onychomycosis Dermatophytosis of nail Uncontrolled type 1 diabetes mellitus with other ophthalmic complication Candidiasis of breast Other candidiasis of other specified sites 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 Diabetic ketoacidosis without coma associated with type 1 diabetes mellitus (HCC) Dehydration Hyperkalemia Hyperpotassemia Skin lesion of breast Unspecified breast disorder Type 1 diabetes mellitus with diabetic neuropathy (HCC) Type I (juvenile type) diabetes mellitus with neurological manifestations, not stated as uncontrolled Edema Uncontrolled type 1 diabetes mellitus with ophthalmic complication Gastroesophageal reflux disease without esophagitis Esophageal reflux Constipation, unspecified constipation type Anxiety state Anxiety state, unspecified Coronary atherosclerosis Coronary atherosclerosis of unspecified type of vessel, [place] or graft Essential hypertension Unspecified essential hypertension Restless legs Restless legs syndrome (RLS) Mild intermittent asthma with acute exacerbation Unspecified asthma, with exacerbation Mixed hyperlipidemia 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, uncontrolled Rash Rash and other nonspecific skin eruption Coronary artery disease Asthma Unspecified asthma SHERLYN (acute kidney injury) ([facility]) Acute kidney failure, unspecified 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, not stated as uncontrolled Hyperlipidemia Other and unspecified hyperlipidemia GERD (gastroesophageal reflux disease) Esophageal reflux Insomnia, unspecified type- Primary [facility] Diagnosis Establishing care with new doctor, encounter for- Primary Other reasons for seeking consultation 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, uncontrolled Obstructive sleep apnea syndrome Obstructive sleep apnea (adult) (pediatric) Atherosclerosis of [place] coronary artery of [place] heart without angina pectoris Essential hypertension with goal blood pressure less than 140/90 Restless legs syndrome (RLS) Coronary artery disease involving [place] coronary artery of [place] heart without angina pectoris Type 1 diabetes mellitus with diabetic neuropathy (HCC)- Primary Type I (juvenile type) diabetes mellitus with neurological manifestations, not stated as uncontrolled Obstructive sleep apnea syndrome Obstructive sleep apnea (adult) (pediatric) Essential hypertension Unspecified essential hypertension Encounter for screening mammogram for malignant neoplasm of breast Other screening mammogram Vitamin D deficiency- Primary Unspecified vitamin D deficiency OSTEOPENIA Disorder of bone and cartilage, unspecified Type 1 diabetes mellitus with diabetic neuropathy (HCC) Type I (juvenile type) diabetes mellitus with neurological manifestations, not stated as uncontrolled Onychomycosis Dermatophytosis of nail Uncontrolled type 1 diabetes mellitus with other ophthalmic complication Candidiasis of breast Other candidiasis of other specified sites 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 Diabetic ketoacidosis without coma associated with type 1 diabetes mellitus (HCC) Dehydration Hyperkalemia Hyperpotassemia Skin lesion of breast Unspecified breast disorder Type 1 diabetes mellitus with diabetic neuropathy (HCC) Type I (juvenile type) diabetes mellitus with neurological manifestations, not stated as uncontrolled Edema Uncontrolled type 1 diabetes mellitus with ophthalmic complication Gastroesophageal reflux disease without esophagitis Esophageal reflux Constipation, unspecified constipation type Anxiety state Anxiety state, unspecified Coronary atherosclerosis Coronary atherosclerosis of unspecified type of vessel, [place] or graft Essential hypertension Unspecified essential hypertension Restless legs Restless legs syndrome (RLS) Mild intermittent asthma with acute exacerbation Unspecified asthma, with exacerbation Mixed hyperlipidemia 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, uncontrolled Rash Rash and other nonspecific skin eruption Coronary artery disease Asthma Unspecified asthma SHERLYN (acute kidney injury) ([facility]) Acute kidney failure, unspecified Hypoglycemia unawareness in type 1 diabetes mellitus ([facility]) 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, not stated as uncontrolled Hyperlipidemia Other and unspecified hyperlipidemia GERD (gastroesophageal reflux disease) Esophageal reflux Shortness of breath Cough, unspecified type [facility] Diagnosis Establishing care with new doctor, encounter for- Primary Other reasons for seeking consultation 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, uncontrolled Obstructive sleep apnea syndrome Obstructive sleep apnea (adult) (pediatric) Atherosclerosis of [place] coronary artery of [place] heart without angina pectoris Essential hypertension with goal blood pressure less than 140/90 Restless legs syndrome (RLS) Coronary artery disease involving [place] coronary artery of [place] heart without angina pectoris Type 1 diabetes mellitus with diabetic neuropathy ([facility])- Primary Type I (juvenile type) diabetes mellitus with neurological manifestations, not stated as uncontrolled Obstructive sleep apnea syndrome Obstructive sleep apnea (adult) (pediatric) Essential hypertension Unspecified essential hypertension Encounter for screening mammogram for malignant neoplasm of breast Other screening mammogram Vitamin D deficiency- Primary Unspecified vitamin D deficiency OSTEOPENIA Disorder of bone and cartilage, unspecified Type 1 diabetes mellitus with diabetic neuropathy (HCC) Type I (juvenile type) diabetes mellitus with neurological manifestations, not stated as uncontrolled Onychomycosis Dermatophytosis of nail Uncontrolled type 1 diabetes mellitus with other ophthalmic complication Candidiasis of breast Other candidiasis of other specified sites 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 Diabetic ketoacidosis without coma associated with type 1 diabetes mellitus ([facility]) Dehydration Hyperkalemia Hyperpotassemia Skin lesion of breast Unspecified breast disorder Type 1 diabetes mellitus with diabetic neuropathy ([facility]) Type I (juvenile type) diabetes mellitus with neurological manifestations, not stated as uncontrolled Edema Uncontrolled type 1 diabetes mellitus with ophthalmic complication Gastroesophageal reflux disease without esophagitis Esophageal reflux Constipation, unspecified constipation type Anxiety state Anxiety state, unspecified Coronary atherosclerosis Coronary atherosclerosis of unspecified type of vessel, [place] or graft Essential hypertension Unspecified essential hypertension Restless legs Restless legs syndrome (RLS) Mild intermittent asthma with acute exacerbation Unspecified asthma, with exacerbation Mixed hyperlipidemia 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, uncontrolled Rash Rash and other nonspecific skin eruption Coronary artery disease Asthma Unspecified asthma SHERLYN (acute kidney injury) ([facility]) Acute kidney failure, unspecified Hypoglycemia unawareness in type 1 diabetes mellitus ([facility]) 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, not stated as uncontrolled Hyperlipidemia Other and unspecified hyperlipidemia GERD (gastroesophageal reflux disease) Esophageal reflux Acute cough [facility] Diagnosis Establishing care with new doctor, encounter for- Primary Other reasons for seeking consultation 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, uncontrolled Obstructive sleep apnea syndrome Obstructive sleep apnea (adult) (pediatric) Atherosclerosis of [place] coronary artery of [place] heart without angina pectoris Essential hypertension with goal blood pressure less than 140/90 Restless legs syndrome (RLS) Coronary artery disease involving [place] coronary artery of [place] heart without angina pectoris Type 1 diabetes mellitus with diabetic neuropathy ([facility])- Primary Type I (juvenile type) diabetes mellitus with neurological manifestations, not stated as uncontrolled Obstructive sleep apnea syndrome Obstructive sleep apnea (adult) (pediatric) Essential hypertension Unspecified essential hypertension Encounter for screening mammogram for malignant neoplasm of breast Other screening mammogram Vitamin D deficiency- Primary Unspecified vitamin D deficiency OSTEOPENIA Disorder of bone and cartilage, unspecified Type 1 diabetes mellitus with diabetic neuropathy ([facility]) Type I (juvenile type) diabetes mellitus with neurological manifestations, not stated as uncontrolled Onychomycosis Dermatophytosis of nail Uncontrolled type 1 diabetes mellitus with other ophthalmic complication Candidiasis of breast Other candidiasis of other specified sites 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 Diabetic ketoacidosis without coma associated with type 1 diabetes mellitus ([facility]) Dehydration Hyperkalemia Hyperpotassemia Skin lesion of breast Unspecified breast disorder Type 1 diabetes mellitus with diabetic neuropathy ([facility]) Type I (juvenile type) diabetes mellitus with neurological manifestations, not stated as uncontrolled Edema Uncontrolled type 1 diabetes mellitus with ophthalmic complication Gastroesophageal reflux disease without esophagitis Esophageal reflux Constipation, unspecified constipation type Anxiety state Anxiety state, unspecified Coronary atherosclerosis Coronary atherosclerosis of unspecified type of vessel, [place] or graft Essential hypertension Unspecified essential hypertension Restless legs Restless legs syndrome (RLS) Mild intermittent asthma with acute exacerbation Unspecified asthma, with exacerbation Mixed hyperlipidemia 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, uncontrolled Rash Rash and other nonspecific skin eruption Coronary artery disease Asthma Unspecified asthma SHERLYN (acute kidney injury) (HCC) Acute kidney failure, unspecified 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, not stated as uncontrolled Hyperlipidemia Other and unspecified hyperlipidemia GERD (gastroesophageal reflux disease) Esophageal reflux COVID- Primary Acute non-recurrent sinusitis, unspecified location [facility] Diagnosis Establishing care with new doctor, encounter for- Primary Other reasons for seeking consultation 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, uncontrolled Obstructive sleep apnea syndrome Obstructive sleep apnea (adult) (pediatric) Atherosclerosis of [place] coronary artery of [place] heart without angina pectoris Essential hypertension with goal blood pressure less than 140/90 Restless legs syndrome (RLS) Coronary artery disease involving [place] coronary artery of [place] heart without angina pectoris Type 1 diabetes mellitus with diabetic neuropathy ([facility])- Primary Type I (juvenile type) diabetes mellitus with neurological manifestations, not stated as uncontrolled Obstructive sleep apnea syndrome Obstructive sleep apnea (adult) (pediatric) Essential hypertension Unspecified essential hypertension Encounter for screening mammogram for malignant neoplasm of breast Other screening mammogram Vitamin D deficiency- Primary Unspecified vitamin D deficiency OSTEOPENIA Disorder of bone and cartilage, unspecified Type 1 diabetes mellitus with diabetic neuropathy (HCC) Type I (juvenile type) diabetes mellitus with neurological manifestations, not stated as uncontrolled Onychomycosis Dermatophytosis of nail Uncontrolled type 1 diabetes mellitus with other ophthalmic complication Candidiasis of breast Other candidiasis of other specified sites 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 Diabetic ketoacidosis without coma associated with type 1 diabetes mellitus (HCC) Dehydration Hyperkalemia Hyperpotassemia Skin lesion of breast Unspecified breast disorder Type 1 diabetes mellitus with diabetic neuropathy (HCC) Type I (juvenile type) diabetes mellitus with neurological manifestations, not stated as uncontrolled Edema Uncontrolled type 1 diabetes mellitus with ophthalmic complication Gastroesophageal reflux disease without esophagitis Esophageal reflux Constipation, unspecified constipation type Anxiety state Anxiety state, unspecified Coronary atherosclerosis Coronary atherosclerosis of unspecified type of vessel, [place] or graft Essential hypertension Unspecified essential hypertension Restless legs Restless legs syndrome (RLS) Mild intermittent asthma with acute exacerbation Unspecified asthma, with exacerbation Mixed hyperlipidemia 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, uncontrolled Rash Rash and other nonspecific skin eruption Coronary artery disease Asthma Unspecified asthma SHERLYN (acute kidney injury) (HCC) Acute kidney failure, unspecified 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, not stated as uncontrolled Hyperlipidemia Other and unspecified hyperlipidemia GERD (gastroesophageal reflux disease) Esophageal reflux Shortness of breath- Primary Wheezing Acute recurrent sinusitis, unspecified location [facility] Diagnosis Establishing care with new doctor, encounter for- Primary Other reasons for seeking consultation 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, uncontrolled Obstructive sleep apnea syndrome Obstructive sleep apnea (adult) (pediatric) Atherosclerosis of [place] coronary artery of [place] heart without angina pectoris Essential hypertension with goal blood pressure less than 140/90 Restless legs syndrome (RLS) Coronary artery disease involving [place] coronary artery of [place] heart without angina pectoris Type 1 diabetes mellitus with diabetic neuropathy ([facility])- Primary Type I (juvenile type) diabetes mellitus with neurological manifestations, not stated as uncontrolled Obstructive sleep apnea syndrome Obstructive sleep apnea (adult) (pediatric) Essential hypertension Unspecified essential hypertension Encounter for screening mammogram for malignant neoplasm of breast Other screening mammogram Vitamin D deficiency- Primary Unspecified vitamin D deficiency OSTEOPENIA Disorder of bone and cartilage, unspecified Type 1 diabetes mellitus with diabetic neuropathy (HCC) Type I (juvenile type) diabetes mellitus with neurological manifestations, not stated as uncontrolled Onychomycosis Dermatophytosis of nail Uncontrolled type 1 diabetes mellitus with other ophthalmic complication Candidiasis of breast Other candidiasis of other specified sites 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 Diabetic ketoacidosis without coma associated with type 1 diabetes mellitus (HCC) Dehydration Hyperkalemia Hyperpotassemia Skin lesion of breast Unspecified breast disorder Type 1 diabetes mellitus with diabetic neuropathy (HCC) Type I (juvenile type) diabetes mellitus with neurological manifestations, not stated as uncontrolled Edema Uncontrolled type 1 diabetes mellitus with ophthalmic complication Gastroesophageal reflux disease without esophagitis Esophageal reflux Constipation, unspecified constipation type Anxiety state Anxiety state, unspecified Coronary atherosclerosis Coronary atherosclerosis of unspecified type of vessel, [place] or graft Essential hypertension Unspecified essential hypertension Restless legs Restless legs syndrome (RLS) Mild intermittent asthma with acute exacerbation Unspecified asthma, with exacerbation Mixed hyperlipidemia 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, uncontrolled Rash Rash and other nonspecific skin eruption Coronary artery disease Asthma Unspecified asthma SHERLYN (acute kidney injury) (HCC) Acute kidney failure, unspecified 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, not stated as uncontrolled Hyperlipidemia Other and unspecified hyperlipidemia GERD (gastroesophageal reflux disease) Esophageal reflux Shortness of breath Wheezing [facility] Diagnosis Establishing care with new doctor, encounter for- Primary Other reasons for seeking consultation 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, uncontrolled Obstructive sleep apnea syndrome Obstructive sleep apnea (adult) (pediatric) Atherosclerosis of [place] coronary artery of [place] heart without angina pectoris Essential hypertension with goal blood pressure less than 140/90 Restless legs syndrome (RLS) Coronary artery disease involving [place] coronary artery of [place] heart without angina pectoris Type 1 diabetes mellitus with diabetic neuropathy ([facility])- Primary Type I (juvenile type) diabetes mellitus with neurological manifestations, not stated as uncontrolled Obstructive sleep apnea syndrome Obstructive sleep apnea (adult) (pediatric) Essential hypertension Unspecified essential hypertension Encounter for screening mammogram for malignant neoplasm of breast Other screening mammogram Vitamin D deficiency- Primary Unspecified vitamin D deficiency OSTEOPENIA Disorder of bone and cartilage, unspecified Type 1 diabetes mellitus with diabetic neuropathy (HCC) Type I (juvenile type) diabetes mellitus with neurological manifestations, not stated as uncontrolled Onychomycosis Dermatophytosis of nail Uncontrolled type 1 diabetes mellitus with other ophthalmic complication Candidiasis of breast Other candidiasis of other specified sites 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 Diabetic ketoacidosis without coma associated with type 1 diabetes mellitus ([facility]) Dehydration Hyperkalemia Hyperpotassemia Skin lesion of breast Unspecified breast disorder Type 1 diabetes mellitus with diabetic neuropathy ([facility]) Type I (juvenile type) diabetes mellitus with neurological manifestations, not stated as uncontrolled Edema Uncontrolled type 1 diabetes mellitus with ophthalmic complication Gastroesophageal reflux disease without esophagitis Esophageal reflux Constipation, unspecified constipation type Anxiety state Anxiety state, unspecified Coronary atherosclerosis Coronary atherosclerosis of unspecified type of vessel, [place] or graft Essential hypertension Unspecified essential hypertension Restless legs Restless legs syndrome (RLS) Mild intermittent asthma with acute exacerbation Unspecified asthma, with exacerbation Mixed hyperlipidemia 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, uncontrolled Rash Rash and other nonspecific skin eruption Coronary artery disease Asthma Unspecified asthma SHERLYN (acute kidney injury) ([facility]) Acute kidney failure, unspecified 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, not stated as uncontrolled Hyperlipidemia Other and unspecified hyperlipidemia GERD (gastroesophageal reflux disease) Esophageal reflux Insomnia, unspecified type [facility]* Diagnosis Anxiety state Anxiety state, unspecified documented in this encounter [facility] note* Diagnosis Establishing care with new doctor, encounter for- Primary Other reasons for seeking consultation 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, uncontrolled Obstructive sleep apnea syndrome Obstructive sleep apnea (adult) (pediatric) Atherosclerosis of [place] coronary artery of [place] heart without angina pectoris Essential hypertension with goal blood pressure less than 140/90 Restless legs syndrome (RLS) Coronary artery disease involving [place] coronary artery of [place] heart without angina pectoris Type 1 diabetes mellitus with diabetic neuropathy ([facility])- Primary Type I (juvenile type) diabetes mellitus with neurological manifestations, not stated as uncontrolled Obstructive sleep apnea syndrome Obstructive sleep apnea (adult) (pediatric) Essential hypertension Unspecified essential hypertension Encounter for screening mammogram for malignant neoplasm of breast Other screening mammogram Vitamin D deficiency- Primary Unspecified vitamin D deficiency OSTEOPENIA Disorder of bone and cartilage, unspecified Type 1 diabetes mellitus with diabetic neuropathy (HCC) Type I (juvenile type) diabetes mellitus with neurological manifestations, not stated as uncontrolled Onychomycosis Dermatophytosis of nail Uncontrolled type 1 diabetes mellitus with other ophthalmic complication Candidiasis of breast Other candidiasis of other specified sites 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 Diabetic ketoacidosis without coma associated with type 1 diabetes mellitus ([facility]) Dehydration Hyperkalemia Hyperpotassemia Skin lesion of breast Unspecified breast disorder Type 1 diabetes mellitus with diabetic neuropathy ([facility]) Type I (juvenile type) diabetes mellitus with neurological manifestations, not stated as uncontrolled Edema Uncontrolled type 1 diabetes mellitus with ophthalmic complication Gastroesophageal reflux disease without esophagitis Esophageal reflux Constipation, unspecified constipation type Anxiety state Anxiety state, unspecified Coronary atherosclerosis Coronary atherosclerosis of unspecified type of vessel, [place] or graft Essential hypertension Unspecified essential hypertension Restless legs Restless legs syndrome (RLS) Mild intermittent asthma with acute exacerbation Unspecified asthma, with exacerbation Mixed hyperlipidemia 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, uncontrolled Rash Rash and other nonspecific skin eruption Coronary artery disease Asthma Unspecified asthma SHERLYN (acute kidney injury) (HCC) Acute kidney failure, unspecified 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, not stated as uncontrolled Hyperlipidemia Other and unspecified hyperlipidemia GERD (gastroesophageal reflux disease) Esophageal reflux 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)- Primary 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, bilateral [facility] Diagnosis Establishing care with new doctor, encounter for- Primary Other reasons for seeking consultation 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, uncontrolled Obstructive sleep apnea syndrome Obstructive sleep apnea (adult) (pediatric) Atherosclerosis of [place] coronary artery of [place] heart without angina pectoris Essential hypertension with goal blood pressure less than 140/90 Restless legs syndrome (RLS) Coronary artery disease involving [place] coronary artery of [place] heart without angina pectoris Type 1 diabetes mellitus with diabetic neuropathy ([facility])- Primary Type I (juvenile type) diabetes mellitus with neurological manifestations, not stated as uncontrolled Obstructive sleep apnea syndrome Obstructive sleep apnea (adult) (pediatric) Essential hypertension Unspecified essential hypertension Encounter for screening mammogram for malignant neoplasm of breast Other screening mammogram Vitamin D deficiency- Primary Unspecified vitamin D deficiency OSTEOPENIA Disorder of bone and cartilage, unspecified Type 1 diabetes mellitus with diabetic neuropathy (HCC) Type I (juvenile type) diabetes mellitus with neurological manifestations, not stated as uncontrolled Onychomycosis Dermatophytosis of nail Uncontrolled type 1 diabetes mellitus with other ophthalmic complication Candidiasis of breast Other candidiasis of other specified sites 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 Diabetic ketoacidosis without coma associated with type 1 diabetes mellitus (HCC) Dehydration Hyperkalemia Hyperpotassemia Skin lesion of breast Unspecified breast disorder Type 1 diabetes mellitus with diabetic neuropathy (HCC) Type I (juvenile type) diabetes mellitus with neurological manifestations, not stated as uncontrolled Edema Uncontrolled type 1 diabetes mellitus with ophthalmic complication Gastroesophageal reflux disease without esophagitis Esophageal reflux Constipation, unspecified constipation type Anxiety state Anxiety state, unspecified Coronary atherosclerosis Coronary atherosclerosis of unspecified type of vessel, [place] or graft Essential hypertension Unspecified essential hypertension Restless legs Restless legs syndrome (RLS) Mild intermittent asthma with acute exacerbation Unspecified asthma, with exacerbation Mixed hyperlipidemia 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, uncontrolled Rash Rash and other nonspecific skin eruption Coronary artery disease Asthma Unspecified asthma SHERLYN (acute kidney injury) (HCC) Acute kidney failure, unspecified 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, not stated as uncontrolled Hyperlipidemia Other and unspecified hyperlipidemia GERD (gastroesophageal reflux disease) Esophageal reflux 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 ([facility])- Primary Gastroparesis due to secondary diabetes ([facility]) Secondary diabetes mellitus with neurological manifestations, not stated as uncontrolled, or unspecified Type 1 diabetes mellitus with polyneuropathy ([facility]) Type I (juvenile type) diabetes mellitus with neurological manifestations, not stated as uncontrolled [facility] Diagnosis Establishing care with new doctor, encounter for- Primary Other reasons for seeking consultation 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, uncontrolled Obstructive sleep apnea syndrome Obstructive sleep apnea (adult) (pediatric) Atherosclerosis of [place] coronary artery of [place] heart without angina pectoris Essential hypertension with goal blood pressure less than 140/90 Restless legs syndrome (RLS) Coronary artery disease involving [place] coronary artery of [place] heart without angina pectoris Type 1 diabetes mellitus with diabetic neuropathy ([facility])- Primary Type I (juvenile type) diabetes mellitus with neurological manifestations, not stated as uncontrolled Obstructive sleep apnea syndrome Obstructive sleep apnea (adult) (pediatric) Essential hypertension Unspecified essential hypertension Encounter for screening mammogram for malignant neoplasm of breast Other screening mammogram Vitamin D deficiency- Primary Unspecified vitamin D deficiency OSTEOPENIA Disorder of bone and cartilage, unspecified Type 1 diabetes mellitus with diabetic neuropathy ([facility]) Type I (juvenile type) diabetes mellitus with neurological manifestations, not stated as uncontrolled Onychomycosis Dermatophytosis of nail Uncontrolled type 1 diabetes mellitus with other ophthalmic complication Candidiasis of breast Other candidiasis of other specified sites 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 Diabetic ketoacidosis without coma associated with type 1 diabetes mellitus ([facility]) Dehydration Hyperkalemia Hyperpotassemia Skin lesion of breast Unspecified breast disorder Type 1 diabetes mellitus with diabetic neuropathy ([facility]) Type I (juvenile type) diabetes mellitus with neurological manifestations, not stated as uncontrolled Edema Uncontrolled type 1 diabetes mellitus with ophthalmic complication Gastroesophageal reflux disease without esophagitis Esophageal reflux Constipation, unspecified constipation type Anxiety state Anxiety state, unspecified Coronary atherosclerosis Coronary atherosclerosis of unspecified type of vessel, [place] or graft Essential hypertension Unspecified essential hypertension Restless legs Restless legs syndrome (RLS) Mild intermittent asthma with acute exacerbation Unspecified asthma, with exacerbation Mixed hyperlipidemia 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, uncontrolled Rash Rash and other nonspecific skin eruption Coronary artery disease Asthma Unspecified asthma SHERLYN (acute kidney injury) ([facility]) Acute kidney failure, unspecified 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, not stated as uncontrolled Hyperlipidemia Other and unspecified hyperlipidemia GERD (gastroesophageal reflux disease) Esophageal reflux 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 ([facility]) Gastroparesis due to secondary diabetes ([facility]) Secondary diabetes mellitus with neurological manifestations, not stated as uncontrolled, or unspecified Type 1 diabetes mellitus with polyneuropathy ([facility]) Type I (juvenile type) diabetes mellitus with neurological manifestations, not stated as uncontrolled [facility] Diagnosis Establishing care with new doctor, encounter for- Primary Other reasons for seeking consultation 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, uncontrolled Obstructive sleep apnea syndrome Obstructive sleep apnea (adult) (pediatric) Atherosclerosis of [place] coronary artery of [place] heart without angina pectoris Essential hypertension with goal blood pressure less than 140/90 Restless legs syndrome (RLS) Coronary artery disease involving [place] coronary artery of [place] heart without angina pectoris Type 1 diabetes mellitus with diabetic neuropathy ([facility])- Primary Type I (juvenile type) diabetes mellitus with neurological manifestations, not stated as uncontrolled Obstructive sleep apnea syndrome Obstructive sleep apnea (adult) (pediatric) Essential hypertension Unspecified essential hypertension Encounter for screening mammogram for malignant neoplasm of breast Other screening mammogram Vitamin D deficiency- Primary Unspecified vitamin D deficiency OSTEOPENIA Disorder of bone and cartilage, unspecified Type 1 diabetes mellitus with diabetic neuropathy (HCC) Type I (juvenile type) diabetes mellitus with neurological manifestations, not stated as uncontrolled Onychomycosis Dermatophytosis of nail Uncontrolled type 1 diabetes mellitus with other ophthalmic complication Candidiasis of breast Other candidiasis of other specified sites 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 Diabetic ketoacidosis without coma associated with type 1 diabetes mellitus (HCC) Dehydration Hyperkalemia Hyperpotassemia Skin lesion of breast Unspecified breast disorder Type 1 diabetes mellitus with diabetic neuropathy (HCC) Type I (juvenile type) diabetes mellitus with neurological manifestations, not stated as uncontrolled Edema Uncontrolled type 1 diabetes mellitus with ophthalmic complication Gastroesophageal reflux disease without esophagitis Esophageal reflux Constipation, unspecified constipation type Anxiety state Anxiety state, unspecified Coronary atherosclerosis Coronary atherosclerosis of unspecified type of vessel, [place] or graft Essential hypertension Unspecified essential hypertension Restless legs Restless legs syndrome (RLS) Mild intermittent asthma with acute exacerbation Unspecified asthma, with exacerbation Mixed hyperlipidemia 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, uncontrolled Rash Rash and other nonspecific skin eruption Coronary artery disease Asthma Unspecified asthma SHERLYN (acute kidney injury) (HCC) Acute kidney failure, unspecified 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, not stated as uncontrolled Hyperlipidemia Other and unspecified hyperlipidemia GERD (gastroesophageal reflux disease) Esophageal reflux Gait abnormality- Primary Abnormality of gait Class 2 severe obesity with serious comorbidity and body mass index (BMI) of 39.0 to 39.9 in adult, unspecified obesity type (HCC) 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, late effect of cerebrovascular disease 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) Major depressive disorder, single episode, in partial or unspecified remission [facility] Diagnosis Establishing care with new doctor, encounter for- Primary Other reasons for seeking consultation 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, uncontrolled Obstructive sleep apnea syndrome Obstructive sleep apnea (adult) (pediatric) Atherosclerosis of [place] coronary artery of [place] heart without angina pectoris Essential hypertension with goal blood pressure less than 140/90 Restless legs syndrome (RLS) Coronary artery disease involving [place] coronary artery of [place] heart without angina pectoris Type 1 diabetes mellitus with diabetic neuropathy (HCC)- Primary Type I (juvenile type) diabetes mellitus with neurological manifestations, not stated as uncontrolled Obstructive sleep apnea syndrome Obstructive sleep apnea (adult) (pediatric) Essential hypertension Unspecified essential hypertension Encounter for screening mammogram for malignant neoplasm of breast Other screening mammogram Vitamin D deficiency- Primary Unspecified vitamin D deficiency OSTEOPENIA Disorder of bone and cartilage, unspecified Type 1 diabetes mellitus with diabetic neuropathy (HCC) Type I (juvenile type) diabetes mellitus with neurological manifestations, not stated as uncontrolled Onychomycosis Dermatophytosis of nail Uncontrolled type 1 diabetes mellitus with other ophthalmic complication Candidiasis of breast Other candidiasis of other specified sites 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 Diabetic ketoacidosis without coma associated with type 1 diabetes mellitus (HCC) Dehydration Hyperkalemia Hyperpotassemia Skin lesion of breast Unspecified breast disorder Type 1 diabetes mellitus with diabetic neuropathy (HCC) Type I (juvenile type) diabetes mellitus with neurological manifestations, not stated as uncontrolled Edema Uncontrolled type 1 diabetes mellitus with ophthalmic complication Gastroesophageal reflux disease without esophagitis Esophageal reflux Constipation, unspecified constipation type Anxiety state Anxiety state, unspecified Coronary atherosclerosis Coronary atherosclerosis of unspecified type of vessel, [place] or graft Essential hypertension Unspecified essential hypertension Restless legs Restless legs syndrome (RLS) Mild intermittent asthma with acute exacerbation Unspecified asthma, with exacerbation Mixed hyperlipidemia 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, uncontrolled Rash Rash and other nonspecific skin eruption Coronary artery disease Asthma Unspecified asthma SHERLYN (acute kidney injury) ([facility]) Acute kidney failure, unspecified 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, not stated as uncontrolled Hyperlipidemia Other and unspecified hyperlipidemia GERD (gastroesophageal reflux disease) Esophageal reflux Insomnia, unspecified type [facility] Diagnosis Establishing care with new doctor, encounter for- Primary Other reasons for seeking consultation 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, uncontrolled Obstructive sleep apnea syndrome Obstructive sleep apnea (adult) (pediatric) Atherosclerosis of [place] coronary artery of [place] heart without angina pectoris Essential hypertension with goal blood pressure less than 140/90 Restless legs syndrome (RLS) Coronary artery disease involving [place] coronary artery of [place] heart without angina pectoris Type 1 diabetes mellitus with diabetic neuropathy (HCC)- Primary Type I (juvenile type) diabetes mellitus with neurological manifestations, not stated as uncontrolled Obstructive sleep apnea syndrome Obstructive sleep apnea (adult) (pediatric) Essential hypertension Unspecified essential hypertension Encounter for screening mammogram for malignant neoplasm of breast Other screening mammogram Vitamin D deficiency- Primary Unspecified vitamin D deficiency OSTEOPENIA Disorder of bone and cartilage, unspecified Type 1 diabetes mellitus with diabetic neuropathy (HCC) Type I (juvenile type) diabetes mellitus with neurological manifestations, not stated as uncontrolled Onychomycosis Dermatophytosis of nail Uncontrolled type 1 diabetes mellitus with other ophthalmic complication Candidiasis of breast Other candidiasis of other specified sites 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 Diabetic ketoacidosis without coma associated with type 1 diabetes mellitus (HCC) Dehydration Hyperkalemia Hyperpotassemia Skin lesion of breast Unspecified breast disorder Type 1 diabetes mellitus with diabetic neuropathy ([facility]) Type I (juvenile type) diabetes mellitus with neurological manifestations, not stated as uncontrolled Edema Uncontrolled type 1 diabetes mellitus with ophthalmic complication Gastroesophageal reflux disease without esophagitis Esophageal reflux Constipation, unspecified constipation type Anxiety state Anxiety state, unspecified Coronary atherosclerosis Coronary atherosclerosis of unspecified type of vessel, [place] or graft Essential hypertension Unspecified essential hypertension Restless legs Restless legs syndrome (RLS) Mild intermittent asthma with acute exacerbation Unspecified asthma, with exacerbation Mixed hyperlipidemia 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, uncontrolled Rash Rash and other nonspecific skin eruption Coronary artery disease Asthma Unspecified asthma SHERLYN (acute kidney injury) ([facility]) Acute kidney failure, unspecified Hypoglycemia unawareness in type 1 diabetes mellitus ([facility]) 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, not stated as uncontrolled Hyperlipidemia Other and unspecified hyperlipidemia GERD (gastroesophageal reflux disease) Esophageal reflux Insomnia, unspecified type [facility] Diagnosis Establishing care with new doctor, encounter for- Primary Other reasons for seeking consultation 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, uncontrolled Obstructive sleep apnea syndrome Obstructive sleep apnea (adult) (pediatric) Atherosclerosis of [place] coronary artery of [place] heart without angina pectoris Essential hypertension with goal blood pressure less than 140/90 Restless legs syndrome (RLS) Coronary artery disease involving [place] coronary artery of [place] heart without angina pectoris Type 1 diabetes mellitus with diabetic neuropathy ([facility])- Primary Type I (juvenile type) diabetes mellitus with neurological manifestations, not stated as uncontrolled Obstructive sleep apnea syndrome Obstructive sleep apnea (adult) (pediatric) Essential hypertension Unspecified essential hypertension Encounter for screening mammogram for malignant neoplasm of breast Other screening mammogram Vitamin D deficiency- Primary Unspecified vitamin D deficiency OSTEOPENIA Disorder of bone and cartilage, unspecified Type 1 diabetes mellitus with diabetic neuropathy ([facility]) Type I (juvenile type) diabetes mellitus with neurological manifestations, not stated as uncontrolled Onychomycosis Dermatophytosis of nail Uncontrolled type 1 diabetes mellitus with other ophthalmic complication Candidiasis of breast Other candidiasis of other specified sites 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 Diabetic ketoacidosis without coma associated with type 1 diabetes mellitus (HCC) Dehydration Hyperkalemia Hyperpotassemia Skin lesion of breast Unspecified breast disorder Type 1 diabetes mellitus with diabetic neuropathy (HCC) Type I (juvenile type) diabetes mellitus with neurological manifestations, not stated as uncontrolled Edema Uncontrolled type 1 diabetes mellitus with ophthalmic complication Gastroesophageal reflux disease without esophagitis Esophageal reflux Constipation, unspecified constipation type Anxiety state Anxiety state, unspecified Coronary atherosclerosis Coronary atherosclerosis of unspecified type of vessel, [place] or graft Essential hypertension Unspecified essential hypertension Restless legs Restless legs syndrome (RLS) Mild intermittent asthma with acute exacerbation Unspecified asthma, with exacerbation Mixed hyperlipidemia 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, uncontrolled Rash Rash and other nonspecific skin eruption Coronary artery disease Asthma Unspecified asthma SHERLYN (acute kidney injury) ([facility]) Acute kidney failure, unspecified Hypoglycemia unawareness in type 1 diabetes mellitus ([facility]) 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, not stated as uncontrolled Hyperlipidemia Other and unspecified hyperlipidemia GERD (gastroesophageal reflux disease) Esophageal reflux Recurrent sinusitis- Primary Unspecified sinusitis (chronic) Epistaxis [facility] Diagnosis Establishing care with new doctor, encounter for- Primary Other reasons for seeking consultation 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, uncontrolled Obstructive sleep apnea syndrome Obstructive sleep apnea (adult) (pediatric) Atherosclerosis of [place] coronary artery of [place] heart without angina pectoris Essential hypertension with goal blood pressure less than 140/90 Restless legs syndrome (RLS) Coronary artery disease involving [place] coronary artery of [place] heart without angina pectoris Type 1 diabetes mellitus with diabetic neuropathy ([facility])- Primary Type I (juvenile type) diabetes mellitus with neurological manifestations, not stated as uncontrolled Obstructive sleep apnea syndrome Obstructive sleep apnea (adult) (pediatric) Essential hypertension Unspecified essential hypertension Encounter for screening mammogram for malignant neoplasm of breast Other screening mammogram Vitamin D deficiency- Primary Unspecified vitamin D deficiency OSTEOPENIA Disorder of bone and cartilage, unspecified Type 1 diabetes mellitus with diabetic neuropathy (HCC) Type I (juvenile type) diabetes mellitus with neurological manifestations, not stated as uncontrolled Onychomycosis Dermatophytosis of nail Uncontrolled type 1 diabetes mellitus with other ophthalmic complication Candidiasis of breast Other candidiasis of other specified sites 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 Diabetic ketoacidosis without coma associated with type 1 diabetes mellitus (HCC) Dehydration Hyperkalemia Hyperpotassemia Skin lesion of breast Unspecified breast disorder Type 1 diabetes mellitus with diabetic neuropathy (HCC) Type I (juvenile type) diabetes mellitus with neurological manifestations, not stated as uncontrolled Edema Uncontrolled type 1 diabetes mellitus with ophthalmic complication Gastroesophageal reflux disease without esophagitis Esophageal reflux Constipation, unspecified constipation type Anxiety state Anxiety state, unspecified Coronary atherosclerosis Coronary atherosclerosis of unspecified type of vessel, [place] or graft Essential hypertension Unspecified essential hypertension Restless legs Restless legs syndrome (RLS) Mild intermittent asthma with acute exacerbation Unspecified asthma, with exacerbation Mixed hyperlipidemia 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, uncontrolled Rash Rash and other nonspecific skin eruption Coronary artery disease Asthma Unspecified asthma SHERLYN (acute kidney injury) ([facility]) Acute kidney failure, unspecified 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, not stated as uncontrolled Hyperlipidemia Other and unspecified hyperlipidemia GERD (gastroesophageal reflux disease) Esophageal reflux Restless legs Restless legs syndrome (RLS) [facility] Diagnosis Establishing care with new doctor, encounter for- Primary Other reasons for seeking consultation 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, uncontrolled Obstructive sleep apnea syndrome Obstructive sleep apnea (adult) (pediatric) Atherosclerosis of [place] coronary artery of [place] heart without angina pectoris Essential hypertension with goal blood pressure less than 140/90 Restless legs syndrome (RLS) Coronary artery disease involving [place] coronary artery of [place] heart without angina pectoris Type 1 diabetes mellitus with diabetic neuropathy (HCC)- Primary Type I (juvenile type) diabetes mellitus with neurological manifestations, not stated as uncontrolled Obstructive sleep apnea syndrome Obstructive sleep apnea (adult) (pediatric) Essential hypertension Unspecified essential hypertension Encounter for screening mammogram for malignant neoplasm of breast Other screening mammogram Vitamin D deficiency- Primary Unspecified vitamin D deficiency OSTEOPENIA Disorder of bone and cartilage, unspecified Type 1 diabetes mellitus with diabetic neuropathy (HCC) Type I (juvenile type) diabetes mellitus with neurological manifestations, not stated as uncontrolled Onychomycosis Dermatophytosis of nail Uncontrolled type 1 diabetes mellitus with other ophthalmic complication Candidiasis of breast Other candidiasis of other specified sites 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 Diabetic ketoacidosis without coma associated with type 1 diabetes mellitus (HCC) Dehydration Hyperkalemia Hyperpotassemia Skin lesion of breast Unspecified breast disorder Type 1 diabetes mellitus with diabetic neuropathy (HCC) Type I (juvenile type) diabetes mellitus with neurological manifestations, not stated as uncontrolled Edema Uncontrolled type 1 diabetes mellitus with ophthalmic complication Gastroesophageal reflux disease without esophagitis Esophageal reflux Constipation, unspecified constipation type Anxiety state Anxiety state, unspecified Coronary atherosclerosis Coronary atherosclerosis of unspecified type of vessel, [place] or graft Essential hypertension Unspecified essential hypertension Restless legs Restless legs syndrome (RLS) Mild intermittent asthma with acute exacerbation Unspecified asthma, with exacerbation Mixed hyperlipidemia 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, uncontrolled Rash Rash and other nonspecific skin eruption Coronary artery disease Asthma Unspecified asthma SHERLYN (acute kidney injury) (HCC) Acute kidney failure, unspecified 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, not stated as uncontrolled Hyperlipidemia Other and unspecified hyperlipidemia GERD (gastroesophageal reflux disease) Esophageal reflux Insomnia, unspecified type [facility] Diagnosis Establishing care with new doctor, encounter for- Primary Other reasons for seeking consultation 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, uncontrolled Obstructive sleep apnea syndrome Obstructive sleep apnea (adult) (pediatric) Atherosclerosis of [place] coronary artery of [place] heart without angina pectoris Essential hypertension with goal blood pressure less than 140/90 Restless legs syndrome (RLS) Coronary artery disease involving [place] coronary artery of [place] heart without angina pectoris Type 1 diabetes mellitus with diabetic neuropathy (HCC)- Primary Type I (juvenile type) diabetes mellitus with neurological manifestations, not stated as uncontrolled Obstructive sleep apnea syndrome Obstructive sleep apnea (adult) (pediatric) Essential hypertension Unspecified essential hypertension Encounter for screening mammogram for malignant neoplasm of breast Other screening mammogram Vitamin D deficiency- Primary Unspecified vitamin D deficiency OSTEOPENIA Disorder of bone and cartilage, unspecified Type 1 diabetes mellitus with diabetic neuropathy (HCC) Type I (juvenile type) diabetes mellitus with neurological manifestations, not stated as uncontrolled Onychomycosis Dermatophytosis of nail Uncontrolled type 1 diabetes mellitus with other ophthalmic complication Candidiasis of breast Other candidiasis of other specified sites 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 Diabetic ketoacidosis without coma associated with type 1 diabetes mellitus (HCC) Dehydration Hyperkalemia Hyperpotassemia Skin lesion of breast Unspecified breast disorder Type 1 diabetes mellitus with diabetic neuropathy (HCC) Type I (juvenile type) diabetes mellitus with neurological manifestations, not stated as uncontrolled Edema Uncontrolled type 1 diabetes mellitus with ophthalmic complication Gastroesophageal reflux disease without esophagitis Esophageal reflux Constipation, unspecified constipation type Anxiety state Anxiety state, unspecified Coronary atherosclerosis Coronary atherosclerosis of unspecified type of vessel, [place] or graft Essential hypertension Unspecified essential hypertension Restless legs Restless legs syndrome (RLS) Mild intermittent asthma with acute exacerbation Unspecified asthma, with exacerbation Mixed hyperlipidemia 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, uncontrolled Rash Rash and other nonspecific skin eruption Coronary artery disease Asthma Unspecified asthma SHERLYN (acute kidney injury) (HCC) Acute kidney failure, unspecified 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, not stated as uncontrolled Hyperlipidemia Other and unspecified hyperlipidemia GERD (gastroesophageal reflux disease) Esophageal reflux 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 ([facility])- Primary documented in this encounter [facility] note* Diagnosis Establishing care with new doctor, encounter for- Primary Other reasons for seeking consultation 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, uncontrolled Obstructive sleep apnea syndrome Obstructive sleep apnea (adult) (pediatric) Atherosclerosis of [place] coronary artery of [place] heart without angina pectoris Essential hypertension with goal blood pressure less than 140/90 Restless legs syndrome (RLS) Coronary artery disease involving [place] coronary artery of [place] heart without angina pectoris Type 1 diabetes mellitus with diabetic neuropathy (HCC)- Primary Type I (juvenile type) diabetes mellitus with neurological manifestations, 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 as uncontrolled Obstructive sleep apnea syndrome Obstructive sleep apnea (adult) (pediatric) Essential hypertension Unspecified essential hypertension Encounter for screening mammogram for malignant neoplasm of breast Other screening mammogram Vitamin D deficiency- Primary Unspecified vitamin D deficiency OSTEOPENIA Disorder of bone and cartilage, unspecified Type 1 diabetes mellitus with diabetic neuropathy (HCC) Type I (juvenile type) diabetes mellitus with neurological manifestations, not stated as uncontrolled Onychomycosis Dermatophytosis of nail Uncontrolled type 1 diabetes mellitus with other ophthalmic complication Candidiasis of breast Other candidiasis of other specified sites 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 Diabetic ketoacidosis without coma associated with type 1 diabetes mellitus (HCC) Dehydration Hyperkalemia Hyperpotassemia Skin lesion of breast Unspecified breast disorder Type 1 diabetes mellitus with diabetic neuropathy (HCC) Type I (juvenile type) diabetes mellitus with neurological manifestations, not stated as uncontrolled Edema Uncontrolled type 1 diabetes mellitus with ophthalmic complication Gastroesophageal reflux disease without esophagitis Esophageal reflux Constipation, unspecified constipation type Anxiety state Anxiety state, unspecified Coronary atherosclerosis Coronary atherosclerosis of unspecified type of vessel, [place] or graft Essential hypertension Unspecified essential hypertension Restless legs Restless legs syndrome (RLS) Mild intermittent asthma with acute exacerbation Unspecified asthma, with exacerbation Mixed hyperlipidemia 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, uncontrolled Rash Rash and other nonspecific skin eruption Coronary artery disease Asthma Unspecified asthma SHERLYN (acute kidney injury) ([facility]) Acute kidney failure, unspecified 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, not stated as uncontrolled Hyperlipidemia Other and unspecified hyperlipidemia GERD (gastroesophageal reflux disease) Esophageal reflux 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 ([facility])- Primary Diabetes mellitus type 1, controlled, without complications ([facility]) Type I (juvenile type) diabetes mellitus without mention of complication, not stated as uncontrolled [facility] Diagnosis Establishing care with new doctor, encounter for- Primary Other reasons for seeking consultation 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, uncontrolled Obstructive sleep apnea syndrome Obstructive sleep apnea (adult) (pediatric) Atherosclerosis of [place] coronary artery of [place] heart without angina pectoris Essential hypertension with goal blood pressure less than 140/90 Restless legs syndrome (RLS) Coronary artery disease involving [place] coronary artery of [place] heart without angina pectoris Type 1 diabetes mellitus with diabetic neuropathy (HCC)- Primary Type I (juvenile type) diabetes mellitus with neurological manifestations, not stated as uncontrolled Obstructive sleep apnea syndrome Obstructive sleep apnea (adult) (pediatric) Essential hypertension Unspecified essential hypertension Encounter for screening mammogram for malignant neoplasm of breast Other screening mammogram Vitamin D deficiency- Primary Unspecified vitamin D deficiency OSTEOPENIA Disorder of bone and cartilage, unspecified Type 1 diabetes mellitus with diabetic neuropathy (HCC) Type I (juvenile type) diabetes mellitus with neurological manifestations, not stated as uncontrolled Onychomycosis Dermatophytosis of nail Uncontrolled type 1 diabetes mellitus with other ophthalmic complication Candidiasis of breast Other candidiasis of other specified sites 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 Diabetic ketoacidosis without coma associated with type 1 diabetes mellitus (HCC) Dehydration Hyperkalemia Hyperpotassemia Skin lesion of breast Unspecified breast disorder Type 1 diabetes mellitus with diabetic neuropathy (HCC) Type I (juvenile type) diabetes mellitus with neurological manifestations, not stated as uncontrolled Edema Uncontrolled type 1 diabetes mellitus with ophthalmic complication Gastroesophageal reflux disease without esophagitis Esophageal reflux Constipation, unspecified constipation type Anxiety state Anxiety state, unspecified Coronary atherosclerosis Coronary atherosclerosis of unspecified type of vessel, [place] or graft Essential hypertension Unspecified essential hypertension Restless legs Restless legs syndrome (RLS) Mild intermittent asthma with acute exacerbation Unspecified asthma, with exacerbation Mixed hyperlipidemia 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, uncontrolled Rash Rash and other nonspecific skin eruption Coronary artery disease Asthma Unspecified asthma SHERLYN (acute kidney injury) (HCC) Acute kidney failure, unspecified 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, not stated as uncontrolled Hyperlipidemia Other and unspecified hyperlipidemia GERD (gastroesophageal reflux disease) Esophageal reflux Seropositive rheumatoid arthritis (HCC)- Primary Rheumatoid arthritis Long-term use of Plaquenil Encounter for long-term (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 of other medications Interstitial lung disease (HCC) Postinflammatory pulmonary fibrosis Osteopenia of right hip Gastroparesis [facility] Diagnosis Establishing care with new doctor, encounter for- Primary Other reasons for seeking consultation 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, uncontrolled Obstructive sleep apnea syndrome Obstructive sleep apnea (adult) (pediatric) Atherosclerosis of [place] coronary artery of [place] heart without angina pectoris Essential hypertension with goal blood pressure less than 140/90 Restless legs syndrome (RLS) Coronary artery disease involving [place] coronary artery of [place] heart without angina pectoris Type 1 diabetes mellitus with diabetic neuropathy (HCC)- Primary Type I (juvenile type) diabetes mellitus with neurological manifestations, not stated as uncontrolled Obstructive sleep apnea syndrome Obstructive sleep apnea (adult) (pediatric) Essential hypertension Unspecified essential hypertension Encounter for screening mammogram for malignant neoplasm of breast Other screening mammogram Vitamin D deficiency- Primary Unspecified vitamin D deficiency OSTEOPENIA Disorder of bone and cartilage, unspecified Type 1 diabetes mellitus with diabetic neuropathy (HCC) Type I (juvenile type) diabetes mellitus with neurological manifestations, not stated as uncontrolled Onychomycosis Dermatophytosis of nail Uncontrolled type 1 diabetes mellitus with other ophthalmic complication Candidiasis of breast Other candidiasis of other specified sites 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 Diabetic ketoacidosis without coma associated with type 1 diabetes mellitus (HCC) Dehydration Hyperkalemia Hyperpotassemia Skin lesion of breast Unspecified breast disorder Type 1 diabetes mellitus with diabetic neuropathy (HCC) Type I (juvenile type) diabetes mellitus with neurological manifestations, not stated as uncontrolled Edema Uncontrolled type 1 diabetes mellitus with ophthalmic complication Gastroesophageal reflux disease without esophagitis Esophageal reflux Constipation, unspecified constipation type Anxiety state Anxiety state, unspecified Coronary atherosclerosis Coronary atherosclerosis of unspecified type of vessel, [place] or graft Essential hypertension Unspecified essential hypertension Restless legs Restless legs syndrome (RLS) Mild intermittent asthma with acute exacerbation Unspecified asthma, with exacerbation Mixed hyperlipidemia 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, uncontrolled Rash Rash and other nonspecific skin eruption Coronary artery disease Asthma Unspecified asthma SHERLYN (acute kidney injury) ([facility]) Acute kidney failure, unspecified 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, not stated as uncontrolled Hyperlipidemia Other and unspecified hyperlipidemia GERD (gastroesophageal reflux disease) Esophageal reflux Interstitial lung disease ([facility])- Primary Postinflammatory pulmonary fibrosis [facility] Diagnosis Establishing care with new doctor, encounter for- Primary Other reasons for seeking consultation 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, uncontrolled Obstructive sleep apnea syndrome Obstructive sleep apnea (adult) (pediatric) Atherosclerosis of [place] coronary artery of [place] heart without angina pectoris Essential hypertension with goal blood pressure less than 140/90 Restless legs syndrome (RLS) Coronary artery disease involving [place] coronary artery of [place] heart without angina pectoris Type 1 diabetes mellitus with diabetic neuropathy (HCC)- Primary Type I (juvenile type) diabetes mellitus with neurological manifestations, not stated as uncontrolled Obstructive sleep apnea syndrome Obstructive sleep apnea (adult) (pediatric) Essential hypertension Unspecified essential hypertension Encounter for screening mammogram for malignant neoplasm of breast Other screening mammogram Vitamin D deficiency- Primary Unspecified vitamin D deficiency OSTEOPENIA Disorder of bone and cartilage, unspecified Type 1 diabetes mellitus with diabetic neuropathy (HCC) Type I (juvenile type) diabetes mellitus with neurological manifestations, not stated as uncontrolled Onychomycosis Dermatophytosis of nail Uncontrolled type 1 diabetes mellitus with other ophthalmic complication Candidiasis of breast Other candidiasis of other specified sites 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 Diabetic ketoacidosis without coma associated with type 1 diabetes mellitus (HCC) Dehydration Hyperkalemia Hyperpotassemia Skin lesion of breast Unspecified breast disorder Type 1 diabetes mellitus with diabetic neuropathy (HCC) Type I (juvenile type) diabetes mellitus with neurological manifestations, not stated as uncontrolled Edema Uncontrolled type 1 diabetes mellitus with ophthalmic complication Gastroesophageal reflux disease without esophagitis Esophageal reflux Constipation, unspecified constipation type Anxiety state Anxiety state, unspecified Coronary atherosclerosis Coronary atherosclerosis of unspecified type of vessel, [place] or graft Essential hypertension Unspecified essential hypertension Restless legs Restless legs syndrome (RLS) Mild intermittent asthma with acute exacerbation Unspecified asthma, with exacerbation Mixed hyperlipidemia 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, uncontrolled Rash Rash and other nonspecific skin eruption Coronary artery disease Asthma Unspecified asthma SHERLYN (acute kidney injury) (HCC) Acute kidney failure, unspecified 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, not stated as uncontrolled Hyperlipidemia Other and unspecified hyperlipidemia GERD (gastroesophageal reflux disease) Esophageal reflux Insomnia, unspecified type- Primary Essential hypertension Unspecified essential hypertension 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 ([facility]) Chronic sinusitis, unspecified location [facility] Diagnosis Establishing care with new doctor, encounter for- Primary Other reasons for seeking consultation 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, uncontrolled Obstructive sleep apnea syndrome Obstructive sleep apnea (adult) (pediatric) Atherosclerosis of [place] coronary artery of [place] heart without angina pectoris Essential hypertension with goal blood pressure less than 140/90 Restless legs syndrome (RLS) Coronary artery disease involving [place] coronary artery of [place] heart without angina pectoris Type 1 diabetes mellitus with diabetic neuropathy (HCC)- Primary Type I (juvenile type) diabetes mellitus with neurological manifestations, not stated as uncontrolled Obstructive sleep apnea syndrome Obstructive sleep apnea (adult) (pediatric) Essential hypertension Unspecified essential hypertension Encounter for screening mammogram for malignant neoplasm of breast Other screening mammogram Vitamin D deficiency- Primary Unspecified vitamin D deficiency OSTEOPENIA Disorder of bone and cartilage, unspecified Type 1 diabetes mellitus with diabetic neuropathy (HCC) Type I (juvenile type) diabetes mellitus with neurological manifestations, not stated as uncontrolled Onychomycosis Dermatophytosis of nail Uncontrolled type 1 diabetes mellitus with other ophthalmic complication Candidiasis of breast Other candidiasis of other specified sites 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 Diabetic ketoacidosis without coma associated with type 1 diabetes mellitus (HCC) Dehydration Hyperkalemia Hyperpotassemia Skin lesion of breast Unspecified breast disorder Type 1 diabetes mellitus with diabetic neuropathy (HCC) Type I (juvenile type) diabetes mellitus with neurological manifestations, not stated as uncontrolled Edema Uncontrolled type 1 diabetes mellitus with ophthalmic complication Gastroesophageal reflux disease without esophagitis Esophageal reflux Constipation, unspecified constipation type Anxiety state Anxiety state, unspecified Coronary atherosclerosis Coronary atherosclerosis of unspecified type of vessel, [place] or graft Essential hypertension Unspecified essential hypertension Restless legs Restless legs syndrome (RLS) Mild intermittent asthma with acute exacerbation Unspecified asthma, with exacerbation Mixed hyperlipidemia 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, uncontrolled Rash Rash and other nonspecific skin eruption Coronary artery disease Asthma Unspecified asthma SHERLYN (acute kidney injury) ([facility]) Acute kidney failure, unspecified 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, not stated as uncontrolled Hyperlipidemia Other and unspecified hyperlipidemia GERD (gastroesophageal reflux disease) Esophageal reflux Diabetes mellitus type 1, controlled, without complications ([facility]) Type I (juvenile type) diabetes mellitus without mention of complication, not stated as uncontrolled [facility] Diagnosis Establishing care with new doctor, encounter for- Primary Other reasons for seeking consultation 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, uncontrolled Obstructive sleep apnea syndrome Obstructive sleep apnea (adult) (pediatric) Atherosclerosis of [place] coronary artery of [place] heart without angina pectoris Essential hypertension with goal blood pressure less than 140/90 Restless legs syndrome (RLS) Coronary artery disease involving [place] coronary artery of [place] heart without angina pectoris Type 1 diabetes mellitus with diabetic neuropathy ([facility])- Primary Type I (juvenile type) diabetes mellitus with neurological manifestations, not stated as uncontrolled Obstructive sleep apnea syndrome Obstructive sleep apnea (adult) (pediatric) Essential hypertension Unspecified essential hypertension Encounter for screening mammogram for malignant neoplasm of breast Other screening mammogram Vitamin D deficiency- Primary Unspecified vitamin D deficiency OSTEOPENIA Disorder of bone and cartilage, unspecified Type 1 diabetes mellitus with diabetic neuropathy (HCC) Type I (juvenile type) diabetes mellitus with neurological manifestations, not stated as uncontrolled Onychomycosis Dermatophytosis of nail Uncontrolled type 1 diabetes mellitus with other ophthalmic complication Candidiasis of breast Other candidiasis of other specified sites 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 Diabetic ketoacidosis without coma associated with type 1 diabetes mellitus (HCC) Dehydration Hyperkalemia Hyperpotassemia Skin lesion of breast Unspecified breast disorder Type 1 diabetes mellitus with diabetic neuropathy ([facility]) Type I (juvenile type) diabetes mellitus with neurological manifestations, not stated as uncontrolled Edema Uncontrolled type 1 diabetes mellitus with ophthalmic complication Gastroesophageal reflux disease without esophagitis Esophageal reflux Constipation, unspecified constipation type Anxiety state Anxiety state, unspecified Coronary atherosclerosis Coronary atherosclerosis of unspecified type of vessel, [place] or graft Essential hypertension Unspecified essential hypertension Restless legs Restless legs syndrome (RLS) Mild intermittent asthma with acute exacerbation Unspecified asthma, with exacerbation Mixed hyperlipidemia 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, uncontrolled Rash Rash and other nonspecific skin eruption Coronary artery disease Asthma Unspecified asthma SHERLYN (acute kidney injury) ([facility]) Acute kidney failure, unspecified Hypoglycemia unawareness in type 1 diabetes mellitus ([facility]) 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, not stated as uncontrolled Hyperlipidemia Other and unspecified hyperlipidemia GERD (gastroesophageal reflux disease) Esophageal reflux ILD (interstitial lung disease) ([facility])- Primary Postinflammatory pulmonary fibrosis Interstitial pulmonary disease ([facility]) Postinflammatory pulmonary [facility] Secondary pulmonary arterial hypertension- Primary [...] Other diseases of lung, not elsewhere classified Pulmonary fibrosis- Primary Postinflammatory pulmonary fibrosis Restrictive lung disease Other diseases of lung, not elsewhere classified SLOE on CPAP Obstructive sleep apnea (adult) (pediatric) Uncomplicated asthma, unspecified asthma severity, unspecified whether persistent Screening for viral disease Special screening examination for unspecified viral disease Pulmonary fibrosis- Primary Postinflammatory pulmonary fibrosis Uncomplicated asthma, unspecified asthma severity, unspecified whether persistent SOLE on CPAP Obstructive sleep apnea (adult) (pediatric) Restrictive lung disease- Primary Other diseases of lung, not elsewhere classified Chronic cough Cough 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 [facility] Establishing care with new doctor, encounter for- Primary Other reasons for seeking consultation 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, uncontrolled Obstructive sleep apnea syndrome Obstructive sleep apnea (adult) (pediatric) Atherosclerosis of [place] coronary artery of [place] heart without angina pectoris Essential hypertension with goal blood pressure less than 140/90 Restless legs syndrome (RLS) Coronary artery disease involving [place] coronary artery of [place] heart without angina pectoris Type 1 diabetes mellitus with diabetic neuropathy (HCC)- Primary Type I (juvenile type) diabetes mellitus with neurological manifestations, not stated as uncontrolled Obstructive sleep apnea syndrome Obstructive sleep apnea (adult) (pediatric) Essential hypertension Unspecified essential hypertension Encounter for screening mammogram for malignant neoplasm of breast Other screening mammogram Vitamin D deficiency- Primary Unspecified vitamin D deficiency OSTEOPENIA Disorder of bone and cartilage, unspecified Type 1 diabetes mellitus with diabetic neuropathy (HCC) Type I (juvenile type) diabetes mellitus with neurological manifestations, not stated as uncontrolled Onychomycosis Dermatophytosis of nail Uncontrolled type 1 diabetes mellitus with other ophthalmic complication Candidiasis of breast Other candidiasis of other specified sites 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 Diabetic ketoacidosis without coma associated with type 1 diabetes mellitus (HCC) Dehydration Hyperkalemia Hyperpotassemia Skin lesion of breast Unspecified breast disorder Type 1 diabetes mellitus with diabetic neuropathy (HCC) Type I (juvenile type) diabetes mellitus with neurological manifestations, not stated as uncontrolled Edema Uncontrolled type 1 diabetes mellitus with ophthalmic complication Gastroesophageal reflux disease without esophagitis Esophageal reflux Constipation, unspecified constipation type Anxiety state Anxiety state, unspecified Coronary atherosclerosis Coronary atherosclerosis of unspecified type of vessel, [place] or graft Essential hypertension Unspecified essential hypertension Restless legs Restless legs syndrome (RLS) Mild intermittent asthma with acute exacerbation (HCC) Unspecified asthma, with exacerbation Mixed hyperlipidemia 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, uncontrolled Rash Rash and other nonspecific skin eruption Coronary artery disease Asthma (HCC) Unspecified asthma SHERLYN (acute kidney injury) Acute kidney failure, unspecified 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, not stated as uncontrolled Hyperlipidemia Other and unspecified hyperlipidemia GERD (gastroesophageal reflux disease) Esophageal reflux Insomnia, unspecified type [facility] Diagnosis Establishing care with new doctor, encounter for- Primary Other reasons for seeking consultation 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, uncontrolled Obstructive sleep apnea syndrome Obstructive sleep apnea (adult) (pediatric) Atherosclerosis of [place] coronary artery of [place] heart without angina pectoris Essential hypertension with goal blood pressure less than 140/90 Restless legs syndrome (RLS) Coronary artery disease involving [place] coronary artery of [place] heart without angina pectoris Type 1 diabetes mellitus with diabetic neuropathy (HCC)- Primary Type I (juvenile type) diabetes mellitus with neurological manifestations, not stated as uncontrolled Obstructive sleep apnea syndrome Obstructive sleep apnea (adult) (pediatric) Essential hypertension Unspecified essential hypertension Encounter for screening mammogram for malignant neoplasm of breast Other screening mammogram Vitamin D deficiency- Primary Unspecified vitamin D deficiency OSTEOPENIA Disorder of bone and cartilage, unspecified Type 1 diabetes mellitus with diabetic neuropathy (HCC) Type I (juvenile type) diabetes mellitus with neurological manifestations, not stated as uncontrolled Onychomycosis Dermatophytosis of nail Uncontrolled type 1 diabetes mellitus with other ophthalmic complication Candidiasis of breast Other candidiasis of other specified sites 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 Diabetic ketoacidosis without coma associated with type 1 diabetes mellitus (HCC) Dehydration Hyperkalemia Hyperpotassemia Skin lesion of breast Unspecified breast disorder Type 1 diabetes mellitus with diabetic neuropathy (HCC) Type I (juvenile type) diabetes mellitus with neurological manifestations, not stated as uncontrolled Edema Uncontrolled type 1 diabetes mellitus with ophthalmic complication Gastroesophageal reflux disease without esophagitis Esophageal reflux Constipation, unspecified constipation type Anxiety state Anxiety state, unspecified Coronary atherosclerosis Coronary atherosclerosis of unspecified type of vessel, [place] or graft Essential hypertension Unspecified essential hypertension Restless legs Restless legs syndrome (RLS) Mild intermittent asthma with acute exacerbation (HCC) Unspecified asthma, with exacerbation Mixed hyperlipidemia 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, uncontrolled Rash Rash and other nonspecific skin eruption Coronary artery disease Asthma (HCC) Unspecified asthma SHERLYN (acute kidney injury) Acute kidney failure, unspecified 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, not stated as uncontrolled Hyperlipidemia Other and unspecified hyperlipidemia GERD (gastroesophageal reflux disease) Esophageal reflux Community acquired pneumonia, unspecified laterality- Primary Bacterial sinusitis Unspecified sinusitis (chronic) Seasonal allergic rhinitis due to other allergic trigger Community acquired pneumonia, unspecified laterality [facility] Diagnosis Establishing care with new doctor, encounter for- Primary Other reasons for seeking consultation 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, uncontrolled Obstructive sleep apnea syndrome Obstructive sleep apnea (adult) (pediatric) Atherosclerosis of [place] coronary artery of [place] heart without angina pectoris Essential hypertension with goal blood pressure less than 140/90 Restless legs syndrome (RLS) Coronary artery disease involving [place] coronary artery of [place] heart without angina pectoris Type 1 diabetes mellitus with diabetic neuropathy (HCC)- Primary Type I (juvenile type) diabetes mellitus with neurological manifestations, not stated as uncontrolled Obstructive sleep apnea syndrome Obstructive sleep apnea (adult) (pediatric) Essential hypertension Unspecified essential hypertension Encounter for screening mammogram for malignant neoplasm of breast Other screening mammogram Vitamin D deficiency- Primary Unspecified vitamin D deficiency OSTEOPENIA Disorder of bone and cartilage, unspecified Type 1 diabetes mellitus with diabetic neuropathy (HCC) Type I (juvenile type) diabetes mellitus with neurological manifestations, not stated as uncontrolled Onychomycosis Dermatophytosis of nail Uncontrolled type 1 diabetes mellitus with other ophthalmic complication Candidiasis of breast Other candidiasis of other specified sites 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 Diabetic ketoacidosis without coma associated with type 1 diabetes mellitus (HCC) Dehydration Hyperkalemia Hyperpotassemia Skin lesion of breast Unspecified breast disorder Type 1 diabetes mellitus with diabetic neuropathy (HCC) Type I (juvenile type) diabetes mellitus with neurological manifestations, not stated as uncontrolled Edema Uncontrolled type 1 diabetes mellitus with ophthalmic complication Gastroesophageal reflux disease without esophagitis Esophageal reflux Constipation, unspecified constipation type Anxiety state Anxiety state, unspecified Coronary atherosclerosis Coronary atherosclerosis of unspecified type of vessel, [place] or graft Essential hypertension Unspecified essential hypertension Restless legs Restless legs syndrome (RLS) Mild intermittent asthma with acute exacerbation (HCC) Unspecified asthma, with exacerbation Mixed hyperlipidemia 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, uncontrolled Rash Rash and other nonspecific skin eruption Coronary artery disease Asthma (HCC) Unspecified asthma SHERLYN (acute kidney injury) Acute kidney failure, unspecified 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, not stated as uncontrolled Hyperlipidemia Other and unspecified hyperlipidemia GERD (gastroesophageal reflux disease) Esophageal reflux Community acquired pneumonia, unspecified laterality [facility] Establishing care with new doctor, encounter for- Primary Other reasons for seeking consultation 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, uncontrolled Obstructive sleep apnea syndrome Obstructive sleep apnea (adult) (pediatric) Atherosclerosis of [place] coronary artery of [place] heart without angina pectoris Essential hypertension with goal blood pressure less than 140/90 Restless legs syndrome (RLS) Coronary artery disease involving [place] coronary artery of [place] heart without angina pectoris Type 1 diabetes mellitus with diabetic neuropathy (HCC)- Primary Type I (juvenile type) diabetes mellitus with neurological manifestations, not stated as uncontrolled Obstructive sleep apnea syndrome Obstructive sleep apnea (adult) (pediatric) Essential hypertension Unspecified essential hypertension Encounter for screening mammogram for malignant neoplasm of breast Other screening mammogram Vitamin D deficiency- Primary Unspecified vitamin D deficiency OSTEOPENIA Disorder of bone and cartilage, unspecified Type 1 diabetes mellitus with diabetic neuropathy (HCC) Type I (juvenile type) diabetes mellitus with neurological manifestations, not stated as uncontrolled Onychomycosis Dermatophytosis of nail Uncontrolled type 1 diabetes mellitus with other ophthalmic complication Candidiasis of breast Other candidiasis of other specified sites 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 Diabetic ketoacidosis without coma associated with type 1 diabetes mellitus (HCC) Dehydration Hyperkalemia Hyperpotassemia Skin lesion of breast Unspecified breast disorder Type 1 diabetes mellitus with diabetic neuropathy (HCC) Type I (juvenile type) diabetes mellitus with neurological manifestations, not stated as uncontrolled Edema Uncontrolled type 1 diabetes mellitus with ophthalmic complication Gastroesophageal reflux disease without esophagitis Esophageal reflux Constipation, unspecified constipation type Anxiety state Anxiety state, unspecified Coronary atherosclerosis Coronary atherosclerosis of unspecified type of vessel, [place] or graft Essential hypertension Unspecified essential hypertension Restless legs Restless legs syndrome (RLS) Mild intermittent asthma with acute exacerbation (HCC) Unspecified asthma, with exacerbation Mixed hyperlipidemia 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, uncontrolled Rash Rash and other nonspecific skin eruption Coronary artery disease Asthma (HCC) Unspecified asthma SHERLYN (acute kidney injury) Acute kidney failure, unspecified 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, not stated as uncontrolled Hyperlipidemia Other and unspecified hyperlipidemia GERD (gastroesophageal reflux disease) Esophageal reflux Medicare annual wellness visit, subsequent- Primary Routine general medical examination at a health care facility Weight loss Loss of weight Acute cough Type 1 diabetes mellitus with diabetic neuropathy (HCC) Type I (juvenile type) diabetes mellitus with neurological manifestations, not stated as uncontrolled Mild intermittent asthma without complication (HCC) Unspecified asthma Cerebral infarction, unspecified mechanism (HCC) 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) 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, not stated as uncontrolled Hypertension Unspecified essential hypertension Gastroparesis [facility] Diagnosis Secondary pulmonary arterial hypertension- Primary [...] Other diseases of lung, not elsewhere classified Pulmonary fibrosis- Primary Postinflammatory pulmonary fibrosis Restrictive lung disease Other diseases of lung, not elsewhere classified SOLE on CPAP Obstructive sleep apnea (adult) (pediatric) Uncomplicated asthma, unspecified asthma severity, unspecified whether persistent Screening for viral disease Special screening examination for unspecified viral disease Pulmonary fibrosis- Primary Postinflammatory pulmonary fibrosis Uncomplicated asthma, unspecified asthma severity, unspecified whether persistent SOLE on CPAP Obstructive sleep apnea (adult) (pediatric) Restrictive lung disease- Primary Other diseases of lung, not elsewhere classified Chronic cough Cough 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 Restrictive lung disease Other diseases of lung, not elsewhere classified [facility] Secondary pulmonary arterial hypertension- Primary [...] Other diseases of lung, not elsewhere classified Pulmonary fibrosis- Primary Postinflammatory pulmonary fibrosis Restrictive lung disease Other diseases of lung, not elsewhere classified SOLE on CPAP Obstructive sleep apnea (adult) (pediatric) Uncomplicated asthma, unspecified asthma severity, unspecified whether persistent Screening for viral disease Special screening examination for unspecified viral disease Pulmonary fibrosis- Primary Postinflammatory pulmonary fibrosis Uncomplicated asthma, unspecified asthma severity, unspecified whether persistent SOLE on CPAP Obstructive sleep apnea (adult) (pediatric) Restrictive lung disease- Primary Other diseases of lung, not elsewhere classified Chronic cough Cough 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 Restrictive lung disease Other diseases of lung, not elsewhere classified [facility] Diagnosis Secondary pulmonary arterial hypertension- Primary [...] Other diseases of lung, not elsewhere classified Pulmonary fibrosis- Primary Postinflammatory pulmonary fibrosis Restrictive lung disease Other diseases of lung, not elsewhere classified SOLE on CPAP Obstructive sleep apnea (adult) (pediatric) Uncomplicated asthma, unspecified asthma severity, unspecified whether persistent Screening for viral disease Special screening examination for unspecified viral disease Pulmonary fibrosis- Primary Postinflammatory pulmonary fibrosis Uncomplicated asthma, unspecified asthma severity, unspecified whether persistent SOLE on CPAP Obstructive sleep apnea (adult) (pediatric) Restrictive lung disease- Primary Other diseases of lung, not elsewhere classified Chronic cough Cough 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 Restrictive lung disease- Primary Other diseases of lung, not elsewhere classified Pulmonary fibrosis Postinflammatory pulmonary fibrosis Uncomplicated asthma, unspecified asthma severity, unspecified whether persistent Chronic obstructive pulmonary disease, unspecified COPD type [facility] Diagnosis Establishing care with new doctor, encounter for- Primary Other reasons for seeking consultation 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, uncontrolled Obstructive sleep apnea syndrome Obstructive sleep apnea (adult) (pediatric) Atherosclerosis of [place] coronary artery of [place] heart without angina pectoris Essential hypertension with goal blood pressure less than 140/90 Restless legs syndrome (RLS) Coronary artery disease involving [place] coronary artery of [place] heart without angina pectoris Type 1 diabetes mellitus with diabetic neuropathy (HCC)- Primary Type I (juvenile type) diabetes mellitus with neurological manifestations, not stated as uncontrolled Obstructive sleep apnea syndrome Obstructive sleep apnea (adult) (pediatric) Essential hypertension Unspecified essential hypertension Encounter for screening mammogram for malignant neoplasm of breast Other screening mammogram Vitamin D deficiency- Primary Unspecified vitamin D deficiency OSTEOPENIA Disorder of bone and cartilage, unspecified Type 1 diabetes mellitus with diabetic neuropathy (HCC) Type I (juvenile type) diabetes mellitus with neurological manifestations, not stated as uncontrolled Onychomycosis Dermatophytosis of nail Uncontrolled type 1 diabetes mellitus with other ophthalmic complication Candidiasis of breast Other candidiasis of other specified sites 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 Diabetic ketoacidosis without coma associated with type 1 diabetes mellitus (HCC) Dehydration Hyperkalemia Hyperpotassemia Skin lesion of breast Unspecified breast disorder Type 1 diabetes mellitus with diabetic neuropathy (HCC) Type I (juvenile type) diabetes mellitus with neurological manifestations, not stated as uncontrolled Edema Uncontrolled type 1 diabetes mellitus with ophthalmic complication Gastroesophageal reflux disease without esophagitis Esophageal reflux Constipation, unspecified constipation type Anxiety state Anxiety state, unspecified Coronary atherosclerosis Coronary atherosclerosis of unspecified type of vessel, [place] or graft Essential hypertension Unspecified essential hypertension Restless legs Restless legs syndrome (RLS) Mild intermittent asthma with acute exacerbation (HCC) Unspecified asthma, with exacerbation Mixed hyperlipidemia 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, uncontrolled Rash Rash and other nonspecific skin eruption Coronary artery disease Asthma (HCC) Unspecified asthma SHERLYN (acute kidney injury) Acute kidney failure, unspecified 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, not stated as uncontrolled Hyperlipidemia Other and unspecified hyperlipidemia GERD (gastroesophageal reflux disease) Esophageal reflux 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 ([facility])- Primary [facility] Diagnosis Establishing care with new doctor, encounter for- Primary Other reasons for seeking consultation 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, uncontrolled Obstructive sleep apnea syndrome Obstructive sleep apnea (adult) (pediatric) Atherosclerosis of [place] coronary artery of [place] heart without angina pectoris Essential hypertension with goal blood pressure less than 140/90 Restless legs syndrome (RLS) Coronary artery disease involving [place] coronary artery of [place] heart without angina pectoris Type 1 diabetes mellitus with diabetic neuropathy (HCC)- Primary Type I (juvenile type) diabetes mellitus with neurological manifestations, not stated as uncontrolled Obstructive sleep apnea syndrome Obstructive sleep apnea (adult) (pediatric) Essential hypertension Unspecified essential hypertension Encounter for screening mammogram for malignant neoplasm of breast Other screening mammogram Vitamin D deficiency- Primary Unspecified vitamin D deficiency OSTEOPENIA Disorder of bone and cartilage, unspecified Type 1 diabetes mellitus with diabetic neuropathy (HCC) Type I (juvenile type) diabetes mellitus with neurological manifestations, not stated as uncontrolled Onychomycosis Dermatophytosis of nail Uncontrolled type 1 diabetes mellitus with other ophthalmic complication Candidiasis of breast Other candidiasis of other specified sites 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 Diabetic ketoacidosis without coma associated with type 1 diabetes mellitus (HCC) Dehydration Hyperkalemia Hyperpotassemia Skin lesion of breast Unspecified breast disorder Type 1 diabetes mellitus with diabetic neuropathy (HCC) Type I (juvenile type) diabetes mellitus with neurological manifestations, not stated as uncontrolled Edema Uncontrolled type 1 diabetes mellitus with ophthalmic complication Gastroesophageal reflux disease without esophagitis Esophageal reflux Constipation, unspecified constipation type Anxiety state Anxiety state, unspecified Coronary atherosclerosis Coronary atherosclerosis of unspecified type of vessel, [place] or graft Essential hypertension Unspecified essential hypertension Restless legs Restless legs syndrome (RLS) Mild intermittent asthma with acute exacerbation (HCC) Unspecified asthma, with exacerbation Mixed hyperlipidemia 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, uncontrolled Rash Rash and other nonspecific skin eruption Coronary artery disease Asthma (HCC) Unspecified asthma SHERLYN (acute kidney injury) Acute kidney failure, unspecified 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, not stated as uncontrolled Hyperlipidemia Other and unspecified hyperlipidemia GERD (gastroesophageal reflux disease) Esophageal reflux Diabetes mellitus type 1, with complication, on half-way insulin pump (HCC)- Primary Controlled type 1 diabetes with neuropathy (HCC) Type I (juvenile type) diabetes mellitus with neurological manifestations, not stated as uncontrolled Type 1 diabetes mellitus with gastroparesis (HCC) [id number] 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, associated with type 1 diabetes mellitus (HCC) [facility] Diagnosis Establishing care with new doctor, encounter for- Primary Other reasons for seeking consultation 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, uncontrolled Obstructive sleep apnea syndrome Obstructive sleep apnea (adult) (pediatric) Atherosclerosis of [place] coronary artery of [place] heart without angina pectoris Essential hypertension with goal blood pressure less than 140/90 Restless legs syndrome (RLS) Coronary artery disease involving [place] coronary artery of [place] heart without angina pectoris Type 1 diabetes mellitus with diabetic neuropathy (HCC)- Primary Type I (juvenile type) diabetes mellitus with neurological manifestations, not stated as uncontrolled Obstructive sleep apnea syndrome Obstructive sleep apnea (adult) (pediatric) Essential hypertension Unspecified essential hypertension Encounter for screening mammogram for malignant neoplasm of breast Other screening mammogram Vitamin D deficiency- Primary Unspecified vitamin D deficiency OSTEOPENIA Disorder of bone and cartilage, unspecified Type 1 diabetes mellitus with diabetic neuropathy (HCC) Type I (juvenile type) diabetes mellitus with neurological manifestations, not stated as uncontrolled Onychomycosis Dermatophytosis of nail Uncontrolled type 1 diabetes mellitus with other ophthalmic complication Candidiasis of breast Other candidiasis of other specified sites 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 Diabetic ketoacidosis without coma associated with type 1 diabetes mellitus (HCC) Dehydration Hyperkalemia Hyperpotassemia Skin lesion of breast Unspecified breast disorder Type 1 diabetes mellitus with diabetic neuropathy (HCC) Type I (juvenile type) diabetes mellitus with neurological manifestations, not stated as uncontrolled Edema Uncontrolled type 1 diabetes mellitus with ophthalmic complication Gastroesophageal reflux disease without esophagitis Esophageal reflux Constipation, unspecified constipation type Anxiety state Anxiety state, unspecified Coronary atherosclerosis Coronary atherosclerosis of unspecified type of vessel, [place] or graft Essential hypertension Unspecified essential hypertension Restless legs Restless legs syndrome (RLS) Mild intermittent asthma with acute exacerbation (HCC) Unspecified asthma, with exacerbation Mixed hyperlipidemia 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, uncontrolled Rash Rash and other nonspecific skin eruption Coronary artery disease Asthma (HCC) Unspecified asthma SHERLYN (acute kidney injury) Acute kidney failure, unspecified 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, not stated as uncontrolled Hyperlipidemia Other and unspecified hyperlipidemia GERD (gastroesophageal reflux disease) Esophageal reflux Seropositive rheumatoid arthritis (HCC)- Primary Rheumatoid arthritis Long-term use of Plaquenil Encounter for long-term (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 of other medications Osteopenia of right hip Gastroparesis Interstitial lung disease (HCC) Postinflammatory pulmonary fibrosis Pain in [facility] Establishing care with new doctor, encounter for- Primary Other reasons for seeking consultation 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, uncontrolled Obstructive sleep apnea syndrome Obstructive sleep apnea (adult) (pediatric) Atherosclerosis of [place] coronary artery of [place] heart without angina pectoris Essential hypertension with goal blood pressure less than 140/90 Restless legs syndrome (RLS) Coronary artery disease involving [place] coronary artery of [place] heart without angina pectoris Type 1 diabetes mellitus with diabetic neuropathy (HCC)- Primary Type I (juvenile type) diabetes mellitus with neurological manifestations, not stated as uncontrolled Obstructive sleep apnea syndrome Obstructive sleep apnea (adult) (pediatric) Essential hypertension Unspecified essential hypertension Encounter for screening mammogram for malignant neoplasm of breast Other screening mammogram Vitamin D deficiency- Primary Unspecified vitamin D deficiency OSTEOPENIA Disorder of bone and cartilage, unspecified Type 1 diabetes mellitus with diabetic neuropathy (HCC) Type I (juvenile type) diabetes mellitus with neurological manifestations, not stated as uncontrolled Onychomycosis Dermatophytosis of nail Uncontrolled type 1 diabetes mellitus with other ophthalmic complication Candidiasis of breast Other candidiasis of other specified sites 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 Diabetic ketoacidosis without coma associated with type 1 diabetes mellitus (HCC) Dehydration Hyperkalemia Hyperpotassemia Skin lesion of breast Unspecified breast disorder Type 1 diabetes mellitus with diabetic neuropathy (HCC) Type I (juvenile type) diabetes mellitus with neurological manifestations, not stated as uncontrolled Edema Uncontrolled type 1 diabetes mellitus with ophthalmic complication Gastroesophageal reflux disease without esophagitis Esophageal reflux Constipation, unspecified constipation type Anxiety state Anxiety state, unspecified Coronary atherosclerosis Coronary atherosclerosis of unspecified type of vessel, [place] or graft Essential hypertension Unspecified essential hypertension Restless legs Restless legs syndrome (RLS) Mild intermittent asthma with acute exacerbation ([facility]) Unspecified asthma, with exacerbation Mixed hyperlipidemia 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, uncontrolled Rash Rash and other nonspecific skin eruption Coronary artery disease Asthma (HCC) Unspecified asthma SHERLYN (acute kidney injury) Acute kidney failure, unspecified 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, not stated as uncontrolled Hyperlipidemia Other and unspecified hyperlipidemia GERD (gastroesophageal reflux disease) Esophageal reflux Carotid stenosis, asymptomatic, bilateral- Primary [facility] Diagnosis Establishing care with new doctor, encounter for- Primary Other reasons for seeking consultation 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, uncontrolled Obstructive sleep apnea syndrome Obstructive sleep apnea (adult) (pediatric) Atherosclerosis of [place] coronary artery of [place] heart without angina pectoris Essential hypertension with goal blood pressure less than 140/90 Restless legs syndrome (RLS) Coronary artery disease involving [place] coronary artery of [place] heart without angina pectoris Type 1 diabetes mellitus with diabetic neuropathy (HCC)- Primary Type I (juvenile type) diabetes mellitus with neurological manifestations, not stated as uncontrolled Obstructive sleep apnea syndrome Obstructive sleep apnea (adult) (pediatric) Essential hypertension Unspecified essential hypertension Encounter for screening mammogram for malignant neoplasm of breast Other screening mammogram Vitamin D deficiency- Primary Unspecified vitamin D deficiency OSTEOPENIA Disorder of bone and cartilage, unspecified Type 1 diabetes mellitus with diabetic neuropathy (HCC) Type I (juvenile type) diabetes mellitus with neurological manifestations, not stated as uncontrolled Onychomycosis Dermatophytosis of nail Uncontrolled type 1 diabetes mellitus with other ophthalmic complication Candidiasis of breast Other candidiasis of other specified sites 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 Diabetic ketoacidosis without coma associated with type 1 diabetes mellitus (HCC) Dehydration Hyperkalemia Hyperpotassemia Skin lesion of breast Unspecified breast disorder Type 1 diabetes mellitus with diabetic neuropathy (HCC) Type I (juvenile type) diabetes mellitus with neurological manifestations, not stated as uncontrolled Edema Uncontrolled type 1 diabetes mellitus with ophthalmic complication Gastroesophageal reflux disease without esophagitis Esophageal reflux Constipation, unspecified constipation type Anxiety state Anxiety state, unspecified Coronary atherosclerosis Coronary atherosclerosis of unspecified type of vessel, [place] or graft Essential hypertension Unspecified essential hypertension Restless legs Restless legs syndrome (RLS) Mild intermittent asthma with acute exacerbation (HCC) Unspecified asthma, with exacerbation Mixed hyperlipidemia 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, uncontrolled Rash Rash and other nonspecific skin eruption Coronary artery disease Asthma (HCC) Unspecified asthma SHERLYN (acute kidney injury) Acute kidney failure, unspecified 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, not stated as uncontrolled Hyperlipidemia Other and unspecified hyperlipidemia GERD (gastroesophageal reflux disease) Esophageal reflux Thrush- Primary Candidiasis of mouth [facility] Diagnosis Establishing care with new doctor, encounter for- Primary Other reasons for seeking consultation 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, uncontrolled Obstructive sleep apnea syndrome Obstructive sleep apnea (adult) (pediatric) Atherosclerosis of [place] coronary artery of [place] heart without angina pectoris Essential hypertension with goal blood pressure less than 140/90 Restless legs syndrome (RLS) Coronary artery disease involving [place] coronary artery of [place] heart without angina pectoris Type 1 diabetes mellitus with diabetic neuropathy (HCC)- Primary Type I (juvenile type) diabetes mellitus with neurological manifestations, not stated as uncontrolled Obstructive sleep apnea syndrome Obstructive sleep apnea (adult) (pediatric) Essential hypertension Unspecified essential hypertension Encounter for screening mammogram for malignant neoplasm of breast Other screening mammogram Vitamin D deficiency- Primary Unspecified vitamin D deficiency OSTEOPENIA Disorder of bone and cartilage, unspecified Type 1 diabetes mellitus with diabetic neuropathy (HCC) Type I (juvenile type) diabetes mellitus with neurological manifestations, not stated as uncontrolled Onychomycosis Dermatophytosis of nail Uncontrolled type 1 diabetes mellitus with other ophthalmic complication Candidiasis of breast Other candidiasis of other specified sites 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 Diabetic ketoacidosis without coma associated with type 1 diabetes mellitus (HCC) Dehydration Hyperkalemia Hyperpotassemia Skin lesion of breast Unspecified breast disorder Type 1 diabetes mellitus with diabetic neuropathy (HCC) Type I (juvenile type) diabetes mellitus with neurological manifestations, not stated as uncontrolled Edema Uncontrolled type 1 diabetes mellitus with ophthalmic complication Gastroesophageal reflux disease without esophagitis Esophageal reflux Constipation, unspecified constipation type Anxiety state Anxiety state, unspecified Coronary atherosclerosis Coronary atherosclerosis of unspecified type of vessel, [place] or graft Essential hypertension Unspecified essential hypertension Restless legs Restless legs syndrome (RLS) Mild intermittent asthma with acute exacerbation (HCC) Unspecified asthma, with exacerbation Mixed hyperlipidemia 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, uncontrolled Rash Rash and other nonspecific skin eruption Coronary artery disease Asthma (HCC) Unspecified asthma SHERLYN (acute kidney injury) Acute kidney failure, unspecified 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, not stated as uncontrolled Hyperlipidemia Other and unspecified hyperlipidemia GERD (gastroesophageal reflux disease) Esophageal reflux Seropositive rheumatoid arthritis (HCC) Rheumatoid arthritis Pain in both hands [facility] Diagnosis Establishing care with new doctor, encounter for- Primary Other reasons for seeking consultation 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, uncontrolled Obstructive sleep apnea syndrome Obstructive sleep apnea (adult) (pediatric) Atherosclerosis of [place] coronary artery of [place] heart without angina pectoris Essential hypertension with goal blood pressure less than 140/90 Restless legs syndrome (RLS) Coronary artery disease involving [place] coronary artery of [place] heart without angina pectoris Type 1 diabetes mellitus with diabetic neuropathy (HCC)- Primary Type I (juvenile type) diabetes mellitus with neurological manifestations, not stated as uncontrolled Obstructive sleep apnea syndrome Obstructive sleep apnea (adult) (pediatric) Essential hypertension Unspecified essential hypertension Encounter for screening mammogram for malignant neoplasm of breast Other screening mammogram Vitamin D deficiency- Primary Unspecified vitamin D deficiency OSTEOPENIA Disorder of bone and cartilage, unspecified Type 1 diabetes mellitus with diabetic neuropathy (HCC) Type I (juvenile type) diabetes mellitus with neurological manifestations, not stated as uncontrolled Onychomycosis Dermatophytosis of nail Uncontrolled type 1 diabetes mellitus with other ophthalmic complication Candidiasis of breast Other candidiasis of other specified sites 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 Diabetic ketoacidosis without coma associated with type 1 diabetes mellitus (HCC) Dehydration Hyperkalemia Hyperpotassemia Skin lesion of breast Unspecified breast disorder Type 1 diabetes mellitus with diabetic neuropathy (HCC) Type I (juvenile type) diabetes mellitus with neurological manifestations, not stated as uncontrolled Edema Uncontrolled type 1 diabetes mellitus with ophthalmic complication Gastroesophageal reflux disease without esophagitis Esophageal reflux Constipation, unspecified constipation type Anxiety state Anxiety state, unspecified Coronary atherosclerosis Coronary atherosclerosis of unspecified type of vessel, [place] or graft Essential hypertension Unspecified essential hypertension Restless legs Restless legs syndrome (RLS) Mild intermittent asthma with acute exacerbation (HCC) Unspecified asthma, with exacerbation Mixed hyperlipidemia 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, uncontrolled Rash Rash and other nonspecific skin eruption Coronary artery disease Asthma (HCC) Unspecified asthma SHERLYN (acute kidney injury) Acute kidney failure, unspecified 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, not stated as uncontrolled Hyperlipidemia Other and unspecified hyperlipidemia GERD (gastroesophageal reflux disease) Esophageal reflux Restless legs Restless legs syndrome (RLS) [facility] Diagnosis Establishing care with new doctor, encounter for- Primary Other reasons for seeking consultation 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, uncontrolled Obstructive sleep apnea syndrome Obstructive sleep apnea (adult) (pediatric) Atherosclerosis of [place] coronary artery of [place] heart without angina pectoris Essential hypertension with goal blood pressure less than 140/90 Restless legs syndrome (RLS) Coronary artery disease involving [place] coronary artery of [place] heart without angina pectoris Type 1 diabetes mellitus with diabetic neuropathy (HCC)- Primary Type I (juvenile type) diabetes mellitus with neurological manifestations, not stated as uncontrolled Obstructive sleep apnea syndrome Obstructive sleep apnea (adult) (pediatric) Essential hypertension Unspecified essential hypertension Encounter for screening mammogram for malignant neoplasm of breast Other screening mammogram Vitamin D deficiency- Primary Unspecified vitamin D deficiency OSTEOPENIA Disorder of bone and cartilage, unspecified Type 1 diabetes mellitus with diabetic neuropathy (HCC) Type I (juvenile type) diabetes mellitus with neurological manifestations, not stated as uncontrolled Onychomycosis Dermatophytosis of nail Uncontrolled type 1 diabetes mellitus with other ophthalmic complication Candidiasis of breast Other candidiasis of other specified sites 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 Diabetic ketoacidosis without coma associated with type 1 diabetes mellitus (HCC) Dehydration Hyperkalemia Hyperpotassemia Skin lesion of breast Unspecified breast disorder Type 1 diabetes mellitus with diabetic neuropathy (HCC) Type I (juvenile type) diabetes mellitus with neurological manifestations, not stated as uncontrolled Edema Uncontrolled type 1 diabetes mellitus with ophthalmic complication Gastroesophageal reflux disease without esophagitis Esophageal reflux Constipation, unspecified constipation type Anxiety state Anxiety state, unspecified Coronary atherosclerosis Coronary atherosclerosis of unspecified type of vessel, [place] or graft Essential hypertension Unspecified essential hypertension Restless legs Restless legs syndrome (RLS) Mild intermittent asthma with acute exacerbation (HCC) Unspecified asthma, with exacerbation Mixed hyperlipidemia 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, uncontrolled Rash Rash and other nonspecific skin eruption Coronary artery disease Asthma (HCC) Unspecified asthma SHERLYN (acute kidney injury) Acute kidney failure, unspecified 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, not stated as uncontrolled Hyperlipidemia Other and unspecified hyperlipidemia GERD (gastroesophageal reflux disease) Esophageal reflux Hypertension- Primary Unspecified essential hypertension Mixed hyperlipidemia Type 1 diabetes mellitus with diabetic neuropathy (HCC) Type I (juvenile type) diabetes mellitus with neurological manifestations, not stated as uncontrolled Insomnia, unspecified type Thrush Candidiasis of mouth [facility] Diagnosis Establishing care with new doctor, encounter for- Primary Other reasons for seeking consultation 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, uncontrolled Obstructive sleep apnea syndrome Obstructive sleep apnea (adult) (pediatric) Atherosclerosis of [place] coronary artery of [place] heart without angina pectoris Essential hypertension with goal blood pressure less than 140/90 Restless legs syndrome (RLS) Coronary artery disease involving [place] coronary artery of [place] heart without angina pectoris Type 1 diabetes mellitus with diabetic neuropathy (HCC)- Primary Type I (juvenile type) diabetes mellitus with neurological manifestations, not stated as uncontrolled Obstructive sleep apnea syndrome Obstructive sleep apnea (adult) (pediatric) Essential hypertension Unspecified essential hypertension Encounter for screening mammogram for malignant neoplasm of breast Other screening mammogram Vitamin D deficiency- Primary Unspecified vitamin D deficiency OSTEOPENIA Disorder of bone and cartilage, unspecified Type 1 diabetes mellitus with diabetic neuropathy (HCC) Type I (juvenile type) diabetes mellitus with neurological manifestations, not stated as uncontrolled Onychomycosis Dermatophytosis of nail Uncontrolled type 1 diabetes mellitus with other ophthalmic complication Candidiasis of breast Other candidiasis of other specified sites 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 Diabetic ketoacidosis without coma associated with type 1 diabetes mellitus (HCC) Dehydration Hyperkalemia Hyperpotassemia Skin lesion of breast Unspecified breast disorder Type 1 diabetes mellitus with diabetic neuropathy (HCC) Type I (juvenile type) diabetes mellitus with neurological manifestations, not stated as uncontrolled Edema Uncontrolled type 1 diabetes mellitus with ophthalmic complication Gastroesophageal reflux disease without esophagitis Esophageal reflux Constipation, unspecified constipation type Anxiety state Anxiety state, unspecified Coronary atherosclerosis Coronary atherosclerosis of unspecified type of vessel, confederated salish or graft Essential hypertension Unspecified essential hypertension Restless legs Restless legs syndrome (RLS) Mild intermittent asthma with acute exacerbation (HCC) Unspecified asthma, with exacerbation Mixed hyperlipidemia 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, uncontrolled Rash Rash and other nonspecific skin eruption Coronary artery disease Asthma (HCC) Unspecified asthma SHERLYN (acute kidney injury) Acute kidney failure, unspecified 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, not stated as uncontrolled Hyperlipidemia Other and unspecified hyperlipidemia GERD (gastroesophageal reflux disease) Esophageal reflux Carotid stenosis, asymptomatic, bilateral- [facility] Diagnosis Onset Date Resolution Status Admit Date Carotid stenosis acute Septembe r 2024 9:58am Aortic stenosis chronic January 10, 2025 9:58am Essential (primary) hypertension chronic January 10, 2025 9:58am Hyperlipidemia chronic January 10, 2025 9:58am History of coronary artery stent placement June 26, 2000 resolved January 10, 2025 9:58am [facility] Work Phone: History and physical note Author Karl Friend [facility] April 08, 2023 9:12am Note Date/Time April 08, 2023 9:12am [facility] Medical Records Department [address] [place] [address] History & Physical Exam 04/08/23910 MR#: [id number] Acct: [id number] Name: KYLIE RUSSO Rep #:[id number] : 1945 77 From: Karl Friend DO PCP: Dr. Alcira Anderson MD Status:REG S RI Location: [place] [address] History and Physical Date of Admission: 04/08/23 77 F who presents to the office today for PMH CAD, RA, COPD, DM1, stroke, HLD, insomnia, obesity, RLS, vit D deficiency *BGI established 8.17.22 for chronic constipation starting in childhood with positive results from mineral oil; in teens/early adulthood she developed abdominal cramping and loose stools which then normalized until 20 years ago when she developed constipation again with small stools with incomplete evacuation up to TID with upper abdominal discomfort. Failed medications includeDulcolax, MiraLAX, benefiber, Colace, Linzess 72mcg (diarrhea) ? GET 11.9.22 120.09 minutes (12-56) OV 12.8.22 continue mineral oil and start fiber tablets. Gastroparesis is not symptomatic. OV 12.4.23 continues to have constipation with lack of BM 3-4 days with movementof small hard pellet stools with preceding lower abdominal pain despite use of mineral oil and PRN stool softener. ROS Const Constitutional: Positive for fatigue; No fever(s), headache(s), weight change, sleep problems, abnormal sleep pattern or change in appetite ENT ENT: No headache(s), difficulty swallowing, hoarseness or sore throat Resp Respiratory: No cough, hemoptysis or shortness of breath Cardio Cardiology: Positive for leg pain with exertion; No chest pain at rest or generalized swelling Gastro GI: Positive for bloating, change in bowel habits, constipation, heartburn and nausea/dyspepsia; No abdominal pain, belching, change in stool character, coffee ground emesis, cramping, diarrhea, difficulty swallowing, feeling full early, excessive flatus,incontinent of stools, Vomiting blood/hematemesis, Blood in stool, loose stools,Black,tarry stools, pain with swallowing or vomiting Musc Musculoskeletal: Positive for joint pain, back pain, muscle weakness, Arthritis,restless legs and leg pain with exertion; No joint swelling, numbness or tingling Skin Skin: Positive for dry skin, itchy eyes and rash Neuro Neurology: Positive for restless legs; No behavioral changes, confusion, headache(s), numbness or tingling Psych Psychiatric: No abnormal sleep pattern, No anxiety, No behavioral changes, No change in appetite, No confusion and No depression Endo Endocrine: Positive for fatigue; No cold intolerance, heat intolerance, increased thirst/drinking or weight change Aller/Imm Allergy/Immunologic: Positive for itchy eyes; No food intolerance Willy/Lymp Hematologic/Lymphatic: Positive for easy bruising; No easy bleeding or enlarged lymph nodes Exam Const General: cooperative, healthy appearing, comfortable, no acute distress, well developed and not cushingoid Nutritional Appearance: well nourished Orientation: alert, awake and oriented x3 HENMT Head: normal to inspection Ears: hearing grossly normal bilaterally Nose: external nose normal Mouth: oral mucosae normal Eyes General: appearance normal, both eyes and all related structures Alignment and Position: alignment normal Periorbital: periorbital findings normal Eyelids: eyelids normal Conjunctivae: conjunctivae normal Neck Neck: normal visual inspection Neck mass: No Thyroid: thyroid normal Chest Chest palpation & inspection: normal inspection of the chest Resp Effort & Inspection: normal respiratory effort, able to speak in complete sentences, symmetric chest movement, no audible wheezes and no cough Cardio Rate: regular rate Rhythm: regular rhythm GI Inspection: normal to inspection Auscultation: normal bowel sounds Palpation: soft and no hepatosplenomegaly Skin General: no rashes or lesions noted Neuro General: patient alert, patient awake and patient oriented x3 Cranial Nerves: CN's II-XI intact bilaterally Cognition: normal cognition Speech: speech normal Motor: muscle tone normal throughout Psych Appearance: grossly normal Mental Status: mental status grossly normal Mood: congruent mood Affect: normal affect Speech and Movement: speech and movement normal Attitude: cooperative Thought Process: normal Thought Content: normal Quality Reporting Tobacco Screening ([facility] 138) Smoking Status: Never smoker Assessment and Plan Assessment and Plan (1) Chronic constipation: Status: Chronic Plan: She has chronic idiopathic constipation 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 She has used osmotic laxatives in the past along with stimulants and stool softeners. She was given Linzess therapy but it was too strong for her. She does use marijuana on a daily basis with some intermittent results. I will put her on magnesium citrate 200 mg in the morning and at nightalong with administration of lactulose therapy. She will do this for approximately 2 weeks. She also has a history of adenomatous polyps. Her last colonoscopy was approximately 5 years ago. We will schedule her for colon surveillance endoscopy. (2) Gastroparesis: Status: Chronic Plan: He does have some bloating from her gastroparesis but it is not horrible. Her gastric emptying time was 120 minutes with no normal range being 30 minutes to 52 minutes. I removed her gastroparesis and be helped by facilitating normal bowel movements instead of putting her on medication regimen for her gastroparesis. She is doing well with a prebiotic that she takes [id number] so we will continue that for now. Orders: Orders Colonoscopy 04/08/23 K59.09 - Other constipation Medications: New peg 3350-electrolytes 236-22.74-6.74 -5.86 gram (Golytely) until fecal effluent is clear 240 mL PO Q10M 4,000 mL 0RF I have examined the patient and the H&P has been reviewed. There are no clinicalchanges since date of exam. 04/08/23911 <Electronically signed by Karl Dyer DO> Cosigner Signature (if applicable): CC: Dr. Alcira Anderson MD; Karl Dyer DO~ Signed [facility] Work Phone: Hospital Discharge instructions Additional Instructions Please follow-up with your PCP and pain management doctor. Return for any worsening of your symptoms.[facility] Work Phone: Progress note Author [facility] Note Date/Time January 10, 2025 10:24am [facility] [address] [place] [address] OFFICE VISIT Date of Service: 01/10/25 MR#: [id number] Acct: [id number] Name: KYLIE RUSSO Rep #: [id number] : 1945 Provider: Dr. Aretha Seaman MD Age/Sex: 79/F Location: [facility] Status: Signed HPI HPI History of Present Illness Details: KYLIE RUSSO, is a 79 F who presents to the office today for a cardiovascularfollow-up visit. She is a lady with a history of mild coronary artery disease hypertension previous cerebrovascular accident hyperlipidemia obstructive sleep apnea diabetes mellitus. She denies any chest pain or shortness breath or paroxysmal nocturnal dyspnea or pedal edema she has had no neck arm or jaw discomfort suggest angina. She has been compliant with all her medications. Intake Vital Signs 11/16/23 10:29 05/17/24 10:10 01/10/25 09:59 Height 5 ft 2 in 5 ft 2 in 5 ft 2 in Weight: 143 lb BMI 26.2 BP 110/55 L Blood Pressure Location Lt brachial Position Sitting Respiration 16 Pulse 60 Pulse Source Monitor Intake Visit Reasons: 1 Y FU Extract Operator Required: No Is patient in pain?: No Allergies amitriptyline Allergy (Verified 01/10/25 10:04) Other cefadroxil (Cefadroxil) Allergy (Verified 01/10/25 10:04) Hives ephedrine Allergy (Verified 01/10/25 10:04) HEART RACES erythromycin estolate (From Ilosone) Allergy (Verified 01/10/25 10:04) Angioedema, HEART RACING iodine Allergy (Verified 01/10/25 10:04) Hives, ITCHING levofloxacin Allergy (Verified 01/10/25 10:04) Unknown nortriptyline (Nortriptyline) Allergy (Verified 01/10/25 10:04) Unknown oxycodone (Oxycodone) Allergy (Verified 01/10/25 10:04) CONFUSION oxycodone HCl (From Percocet) Allergy (Verified 01/10/25 10:04) CONFUSION Sulfa (Sulfonamide Antibiotics) Allergy (Verified 01/10/25 10:04) Rash pregabalin (From Lyrica) Adverse Reaction (Severe, Verified 01/10/25 10:04) Vomiting hydrochlorothiazide Adverse Reaction (Intermediate, Verified 01/10/25 10:04) Hypotension acetaminophen (From Percocet) Adverse Reaction (Verified 01/10/25 10:04) Other aspirin (From Aggrenox) Adverse Reaction (Verified 01/10/25 10:04) Vomiting cephalexin Adverse Reaction (Verified 01/10/25 10:04) Nausea/Vom/Diarrhea doxycycline Adverse Reaction (Verified 01/10/25 10:04) Nausea/Vom/Diarrhea duloxetine HCl (From Cymbalta) Adverse Reaction (Verified 01/10/25 10:04) HEADACHE, STOMACH ACHE Medications ?Medication ?Instructions ?Recorded ?Confirmed ?Type atorvastatin 40 mg tablet 40 mg PO QHS cholesterol 01/0301/10/25 History clopidogrel 75 mg tablet 75 mg PO DAILY anti platelet 06/27/15 01/10/25 History albuterol sulfate 2.5 mg/3 mL 2.5 mg inhalation Q6H HI N 03/30/17 01/10/25 History (0.083 %) solution for nebulization Bronchodialation diclofenac sodium 1 % topical gel 2 g topical BID PRN 03/30/17 01/10/25 History (Voltaren) Pain/Inflammation multivitamin 1 tab PO QAM vitamin 7 01/10/25 History amlodipine 5 mg tablet 5 mg PO DAILY #90 tabs 09/2201/10/25 Rx lactobacillus combination no.9 4 4,000 mmu cells PO DA PORSCHE supplement 10/14/18 01/10/25 History billion cell capsule (Adult 50 Plus Probiotic) biotin 1 mg capsule 1 mg PO DAILY 10/14/1901/10 History aspirin 81 mg tablet,delayed 81 mg PO DAILY 07/05/21 0 01/10/25 History release (Adult Low Dose Aspirin) lancets (Accu-Chek Fastclix Lancet #200 ea 11/04/21 Rx Drum) cholecalciferol (vitamin D3) 125 125 mcg PO DAILY 020 12/1001/10/25 History mcg (5,000 unit) tablet Humalog U-100 Insulin 100 unit/mL 100 unit subcut QDAY #90 mL 03/16/23 01/10/25 Rx subcutaneous solution (insulin lispro) albuterol sulfate 90 mcg/actuation 1 inh inhalation Q4 H PRN shortness 04/06/23 01/10/25 History aerosol inhaler of breath or wheezing clonazepam 1 mg tablet 1 mg PO QHS 11/16/23 5 History nitroglycerin 0.4 mg sublingual 0.4 mg sublingual Q5-1 5M PRN chest 11/26/23 Rx tablet (Nitrostat) pain #25 tabs zolpidem 10 mg tablet (Ambien) 10 mg PO QHS 01/18/24 0 01/10/25 History losartan 100 mg tablet See Rx Instructions .Route 0 05/17/24 01/10/25 Rx .COMPLEX #90 tabs NaCl 0.9% 1,000 ml IV BOLUS ONCE #1,00 0 mL 01/03/25 Rx diphenhydramine HCl 25 mg capsule 25 mg PO ONCE #1 cap 01/03/25 01/10/25 Rx (Benadryl) famotidine 40 mg tablet 40 mg PO ONCE #1 TAB 5 01/10/25 Rx prednisone 20 mg tablet 40 mg (2 x 20 mg) PO ONCE #2 tabs 01/03/25 01/10/25 Rx fluticasone fur. 200 mcg-umeclid 1 ea inhalation QDAY 01/10/25 01/10/25 History 62.5 mcg-vilant 25 mcg inhalat.powder (Trelegy Ellipta) hydroxychloroquine 200 mg tablet 300 mg PO QDAY 01/10/25 History pramipexole 1 mg tablet 2 mg PO QHS 01/10/25 5 History Ejection fraction %: 65 Have you fallen in the past year?: No PFSH Medical History (Updated 01/10/25 @ 10:[address] Leon Seaman MD) Aortic stenosis Wears glasses Wears dentures Insulin dependent diabetes mellitus High cholesterol History of steroid therapy Back pain Dietary restriction Gastric reflux History of edema CPAP (continuous positive airway pressure) dependence Non-smoker History of pain when walking Hypertension History of stress test History of echocardiogram Cardiology follow-up encounter Fall RLS (restless legs syndrome) Insomnia Esophagitis Diverticulosis of colon Coronary artery disease involving confed[place] sal[place] coronary artery Carpal tunnel syndrome, bilateral Carotid stenosis CAD (coronary artery disease) BPPV (benign paroxysmal positional vertigo) Chronic constipation Insulin pump titration Presence of insulin pump Obesity Vitamin D deficiency Gastroenteritis Polymyalgia rheumatica Chronic rheumatic arthritis Diabetic neuropathy Type 1 diabetes mellitus COPD (chronic obstructive pulmonary disease) Essential (primary) hypertension Atherosclerosis of coronary artery of confed[place] sal[place] heart without angina pectoris History of stroke Fatty liver Hyperlipidemia Incontinence Chronic neck and back pain Difficulty balancing Surgical History History of esophagogastroduodenoscopy (EGD) History of left heart catheterization (07/01/05) History of coronary artery stent placement (06/26/00) nasal growth removal H/O lumpectomy axillary cyst removal bilat hand surgery H/O shoulder surgery H/O breast biopsy H/O: Family History Father , age 76 No problems noted. Mother , Age 74 Breast cancer Thyroid disorder Heart disease Valvular heart disease Brother Heart disease, Onset Age: 52 Heart valve/murmur Social History Smoking Status: Never smoker alcohol intake: never substance use type: does not use caffeine: No ROS Const Const: Negative for fatigue, weakness, daytime sleepiness or difficulty sleeping ENT ENT: Positive for dizziness; Negative for Nosebleed/epistaxis Cardio Chest Pain: No Palpitations: No Edema: None Resp Respiratory: Negative for SOB with activity, SOB at rest, SOB orthopnea\SOB lying down or Cough GI GI: Negative nausea, vomiting or heartburn Neuro Neuro: Positive for dizziness, lightheadedness and near syncope; Negative for weakness Endo Endo: Negative for fatigue Cardiology Exam Const Appearance: cooperative, comfortable, no acute distress, well developed and frail appearing Orientation: alert, awake and oriented x3 Limitations: physical limitations (needs assistance walking ) Head Head: normal to inspection Ears: hearing grossly normal bilaterally Nose: external nose normal Face and Sinus: face symmetric Mouth: oral mucosae normal, lip normal and moist mucous membranes Eyes General: appearance normal, both eyes and all related structures Eyelids: eyelids normal Conjunctivae: conjunctivae normal Pupils: PERRL EOM: EOM intact bilaterally Neck Neck: normal visual inspection and trachea midline; Negative no JVD Carotids: Negative bruit Chest Chest inspection: normal inspection of the chest Auscultation: Bilateral: Clear to Auscultation Cardio Palpation: normal PMI Rate: regular rate Rhythm: regular rhythm Heart sounds: S1 normal, S2 normal and murmur; Negative rub or gallop Murmur: Grade 2/6 and soft GI GI: soft, no hepatosplenomegaly and bowel sounds present Neuro General: patient alert, patient awake, patient oriented x3 and CN's II-XI intactbilaterally Extremities Pulses: Normal: Right Posterior Tibial Pulse, Left Posterior Tibial Pulse, RightRadial Pulse and Left Radial Pulse Lower Extremity Edema: None: Bilateral Psych Psychological: normal affect Supplemental Info Supplemental Information [facility]chocardiogram 12/04/22 ([facility] Conclusion Left ventricle: Mild concentric left ventricular hypertrophy. Mild diastolic dysfunction is present (impaired relaxation pattern). The left ventricular systolic function is normal. The left ventricular ejection fraction is within the normal range. There is normal LV segmental wall motion. LVEF is 65-70%. Right ventricle: The right ventricle is normal size. The right ventricular systolic function is normal. Atria: Left atrium is mildly dilated. Aortic Valve: Aortic valve is trileaflet. Moderate aortic valve sclerosis. Aortic valve leaflets are sclerotic with decreased opening. Mild aortic stenosis. Calculated DIMITRIS by the continuity equation is 1.58cm2. Peak aortic valve gradient is 21.58 mmHg. Highest mean aortic valve gradient is 11.6mmHg. Noaortic regurgitation is present. Mitral valve: Moderate mitral annular calcification. Mitral valve leaflets are mildly thickened. Trace mitral regurgitation. No evidence of mitral valve stenosis. Tricuspid Valve: Mild tricuspid regurgitation. No pulmonary hypertension. Echocardiogram 06/22/2019: Left ventricular systolic function is normal. The estimated ejection fraction is 60 %. There is moderate mitral annular calcification. Extension of the mitral annular calcification onto the mitral valve leaflets. Mild (1+) mitral valve insufficiency. Trivial tricuspid valve insufficiency. Mild focal aortic valve calcification. Right ventricular systolic pressure estimated to be 33 mmHg. Diastolic function is indeterminate. Pharmacologic myocardial perfusion stress test. 11/26/23 Conclusion: Normal pharmacologic myocardial perfusion stress test. Preserved ejection fraction. CT Chest 08/14/23 ([facility]) Impression Heavy coronary calcification. Mild to moderate aortic valve calcification. Carotid Ultrasound 11/12/23 Right side: Common Carotid: Plaque visualized without evidence of hemodynamically significant stenosis. Internal Carotid: 20-39% stenosis. Vertebral artery: Patent and antegrade flow noted. Subclavian artery: Plaque visualized without evidence of hemodynamically significant stenosis. Left side: Common Carotid: Plaque visualized without evidence of hemodynamically significant stenosis. Internal Carotid: 60-79% stenosis. External Carotid: Elevated velocities and plaque noted. Vertebral artery: Patent and antegrade flow noted. Subclavian artery: Patent. Diagnostics: Electrocardiogram Echocardiogram Transesophageal Echocardiogram Stress Test Stress Test Nuclear Medicine Chest X-Ray Abdomen/Pelvis CT Pulmonary: Pulmonary Function Test Pulmonary Exercise Test Past Visits: Cardiology Visit Today Assessment and Plan Assessment and Plan (1) History of coronary artery stent placement: Status: Resolved Comment: PTCA and JUANY of proximal RCA 06/26/2000 @ [facility] per Dr. Ada Garcia Plan: Stable, pt does not have any symptoms of angina. Stress test in 2023 was negative for ischemia. Will continue with medical management. (2) Essential (primary) hypertension: Status: Chronic Plan: Blood pressure is well controlled on current medications, we do not recommend any changes at this time. (3) Hyperlipidemia: Status: Chronic Qualifiers: Hyperlipidemia type: pure hypercholesterolemia Qualified Code(s): E78.00 - Pure hypercholesterolemia, unspecified; E78.0 - Pure hypercholesterolemia Plan: Managed by PCP, will continue with current statin. Will obtain lipids from PCP. (4) Aortic stenosis: Status: Chronic Comment: mild Plan: This is mild will continue to monitor with periodic echos. I have asked her to repeat her echocardiogram and depending on the findings further recommendations will be made. (5) Carotid stenosis: Status: Acute Plan: She does have evidence of carotid disease her last carotid ultrasound demonstrated right sided internal carotid plaque of 20 to 39% in the left-sided 60 to 79%. She continues to follow-up with the vascular service in [place]. Orders: Orders Echo Complete Today I35.0 - Nonrheumatic aortic (valve) stenosis Plan Details Follow Up: 1 Year (mmm) Coding Level of Care Code Off vis,est,level 4 Diagnoses History of coronary artery stent placement Z95.5 Essential (primary) hypertension I10 Pure hypercholesterolemia E78.00; E78.0 Hyperlipidemia type: pure hypercholesterolemia Aortic stenosis I35.0 Carotid stenosis I65.29 Coding Level of Care Code Off vis,est,level 4 Diagnoses History of coronary artery stent placement Z95.5 Essential (primary) hypertension I10 Pure hypercholesterolemia E78.00; E78.0 Hyperlipidemia type: pure hypercholesterolemia Aortic stenosis I35.0 Carotid stenosis I65.29 Clinical Quality Measures Falls Risk Screening/Assistive Devices Have you fallen in the past year?: No Cardiac Ejection fraction %: 65 01/10/25 1031 <Electronically signed by Leon Khalil> Date _ Leon Seaman MD Cosignanand Signature: Date (if applicable) CC: Dr. Alcira Anderson MD ~ [facility] Work Phone: Reason for referral (narrative)* Outpatient Procedure (Routine) - Authorized Specialty Diagnoses / Procedures Referred By Bridger t Referred To Contact [facility] [place] Diagnoses Bilateral carotid artery stenosis Procedures US CAROTID ARTERIES OMAR VAS LAB DUPLEX SCAN EXTRACRANIAL ART COMPL BI STUDY Manuela Thomas APRN.CROP AND SOIL TECHNICIAN 1 [facility] [address] [place] [address] [facility] [place] [address] [place] [address] Referral ID Status Reason Start Date Expiration Date Visits Requested Visits Authorized [id number] Authorized Auto-Generat ed Referral 10/15/2021 10/15/2022 1 1 [facility] for referral (narrative)* Diagnostic Procedure Only (Routine) - Closed Specialty Diagnoses / Procedures Referred By Bridger rodriguez Referred To Contact [facility] Diagnoses Encounter for screening mammogram for malignant neoplasm of breast Procedures JULIETTE SCREENING SCREENING MAMMOGRAPHY BI 2-VIEW BREAST INC Hernesto Diamond APRN.CROP AND SOIL TECHNICIAN [address] [place] [address] [facility] [address] [place] [address] Referral ID Status Reason Start Date Expiration Date V isits Requested Visits Authorized [id number] Closed Auto-Generate d Referral 10/11/2021 11/10/2022 1 1 T [facility] for referral (narrative)* Outpatient Procedure (Routine) - Pending Review Specialty Diagnoses / Procedures Referred By Contac t Referred To Contact [facility] Diagnoses Bilateral carotid artery stenosis Procedures US CAROTID ARTERIES OMAR VAS LAB DUPLEX SCAN EXTRACRANIAL ART COMPL BI STUDY Manuela Thomas APRN.CROP AND SOIL TECHNICIAN 1 [facility] [address] [place] [address] [facility] [place] [address] [place] [address] Referral ID Status Reason Start Date Expiration Date Visits Requested Visits Authorized [id number] Pending Review Auto-Generat ed Referral 08/07/2022 11/05/2022 1 1 [facility] [facility] for referral (narrative)* Diagnostic Procedure Only (Routine) - Closed Specialty Diagnoses / Procedures Referred By Contac t Referred To Contact BR IMAGING Diagnoses Encounter for screening mammogram for malignant neoplasm of breast Procedures JULIETTE SCREENING SCREENING MAMMOGRAPHY BI 2-VIEW BREAST INC Hernesto Diamond APRN.CROP AND SOIL TECHNICIAN [address] [place] [address] Br Imaging [address] [place] [address] Referral ID Status Reason Start Date Expiration Date V isits Requested Visits Authorized [id number] Closed Auto-Generate d Referral 10/11/2021 11/10/2022 1 1 [facility] [place] [facility] for referral (narrative)* Diagnostic Procedure Only (Routine) - Closed Specialty Diagnoses / Procedures Referred By Contac t Referred To Contact XR IMAGING Diagnoses Pain in right foot Procedures XR FOOT GENERAL 3V AP/LAT/OBL RIGHT RADEX FOOT COMPLETE MINIMUM 3 VIEWS Marques Rangel [address] [place] [address] Xr Imaging Referral ID Status Reason Start Date Expiration Date V isits Requested Visits Authorized [id number] Closed Auto-Generate d Referral 12/27/2021 01/26/2023 1 1 [facility] for referral (narrative)* Outpatient Procedure (Routine) - Pending Review Specialty Diagnoses / Procedures Referred By Contac t Referred To [facility] Diagnoses ILD (interstitial lung disease) ([facility]) Procedures SIX MINUTE WALK CARDIOPULMONARY EXERCISE STRESS Manuela Carver APRN.CNP [address] [place] [id number] Respiratory [place] [phone] Referral ID Status Reason Start Date Expiration Date Visits Requested Visits Authorized [id number] Pending Review Auto-Generat ed Referral 08/07/2022 09/06/2023 1 1 * Outpatient Procedure (Routine) - Pending Review Specialty Diagnoses / Procedures [facility] Diagnoses ILD (interstitial lung disease) ([facility]) Procedures LUNG DIFFUSION CAPACITY (DLCO) DIFFUSING CAPACITY Manuela Carver APRN.CROP AND SOIL TECHNICIAN [address] [place] [id number] [address] [address] Referral ID Status Reason Start Date Expiration Date Visits Requested Visits Authorized [id number] Pending Review Auto-Generat ed Referral 08/07/2022 09/06/2023 1 1 * Outpatient Procedure (Routine) - Pending Review Specialty Diagnoses / Procedures [facility] To [facility] Diagnoses ILD (interstitial lung disease) ([facility]) Procedures SPIROMETRY WITH DILATOR IF OBSTRUCTED BRNCDILAT RSPSE SPMTRY PRE&POST-BRNCDILAT ADMN Manuela Carver APRN.CROP AND SOIL TECHNICIAN [address] [address] Referral ID Status Reason Start Date Expiration Date Visits Requested Visits Authorized [id number] Pending Review Auto-Generat ed Referral 08/07/2022 09/06/2023 1 1 [facility] [place] [facility] for referral (narrative)* Consultation (Urgent) - New [...] History of rheumatoid arthritis History of stroke penitentiary (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 of aspirin penitentiary current use of non-steroidal anti-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 (NSAID) Long-term use of high-risk medication Long-term use of Plaquenil On statin therapy Clinton Farrar Jr., DO [address] [place] [address] Ivan Pal MD [address] [place] [address] Referral ID Status Reason Start Date Expiration Date V isits Requested Visits Authorized [id number] New Request 09/29/2022 10/24/2023 1 1 [facility] for referral (narrative)* Diagnostic Procedure Only (Routine) - Authorized Specialty Diagnoses / Procedures Referred By Bridger rodriguez Referred To Contact BR IMAGING Diagnoses Screening mammogram, encounter for Procedures JULIETTE SCREENING SCREENING MAMMOGRAPHY BI 2-VIEW BREAST INC Brittney Holguin PA-C [address] [place] [address] Br Imaging [address] [place] [address] Referral ID Status Reason Start Date Expiration Date Visits Requested Visits Authorized [id number] Authorized Auto-Generat ed Referral 10/22/2022 11/21/2023 1 1 [facility] [place] [facility] for referral (narrative)* Diagnostic Procedure Only (Routine) - Closed Specialty Diagnoses / Procedures [facility] Referred To Contact BR IMAGING Diagnoses Screening mammogram, encounter for Procedures JULIETTE SCREENING SCREENING MAMMOGRAPHY BI 2-VIEW BREAST INC Brittney Holguin PA-C [address] [place] [address] Br Imaging [address] [place] [address] Referral ID Status Reason Start Date Expiration Date V isits Requested Visits Authorized [id number] Closed Auto-Generate d Referral 10/22/2022 11/21/2023 1 1 [facility] [place] [facility] for referral (narrative)* Outpatient Procedure (Routine) - Pending Review Specialty Diagnoses / Procedures [facility] Referred To Contact [facility] Diagnoses Carotid stenosis, asymptomatic, bilateral Procedures US CAROTID ARTERIES OMAR VAS LAB DUPLEX SCAN EXTRACRANIAL ART COMPL BI STUDY Manuela Thomas, CARLOS EDUARDO.CROP AND SOIL TECHNICIAN 1 [facility] [address] [place] [address] [facility] [address] [place] [address] Referral ID Status Reason Start Date Expiration Date Visits Requested Visits Authorized [id number] Pending Review Auto-Generat ed Referral 09/30/2023 09/29/2024 1 1 [facility] [place] [facility] for referral (narrative)* Diagnostic Procedure Only (Routine) - Pending Review Specialty Diagnoses / Procedures Referred By Contac t Referred To Contact BR IMAGING Diagnoses Visit for screening mammogram Procedures JULIETTE SCREENING SCREENING MAMMOGRAPHY BI 2-VIEW BREAST INC Alcira Walker MD [address] [place] [address] Br Imaging [address] [place] [address] Referral ID Status Reason Start Date Expiration Date Visits Requested Visits Authorized [id number] Pending Review Auto-Generat ed Referral 10/28/2023 11/11/2024 1 1 [facility] [place] [facility] for referral (narrative)No reason for referral [facility] Work Phone: Reason for visit Narrative* Diagnostic Procedure Only (Routine) - Closed Specialty Diagnoses / Procedures Referred By Contac t Referred To Contact BR IMAGING Diagnoses Encounter for screening mammogram for malignant neoplasm of breast Procedures JULIETTE SCREENING SCREENING MAMMOGRAPHY BI 2-VIEW BREAST INC CAD Hernesto Harvey APRN.CROP AND SOIL TECHNICIAN [address] [place] [address] Br Imaging [address] [place] [address] Referral ID Status Reason Start Date Expiration Date V isits Requested Visits Authorized [id number] Closed Auto-Generate d Referral 10/11/2021 11/10/2022 1 1 [facility] [place] [facility] for visit Narrative* Diagnostic Procedure Only (Routine) - Closed Specialty Diagnoses / Procedures Referred By Contac t Referred To Contact XR IMAGING Diagnoses Pain in right foot Procedures XR FOOT GENERAL 3V AP/LAT/OBL RIGHT RADEX FOOT COMPLETE MINIMUM 3 VIEWS Marques [address] [place] [address] Xr Imaging Referral ID Status Reason Start Date Expiration Date V isits Requested Visits Authorized [id number] Closed Auto-Generate d Referral 12/27/2021 01/26/2023 1 1 [facility] [place] [facility] for visit Narrative* Diagnostic Procedure Only (Routine) - Closed Specialty Diagnoses / Procedures Referred By Contac t Referred To Contact BR IMAGING Diagnoses Screening mammogram, encounter for Procedures JULIETTE SCREENING SCREENING MAMMOGRAPHY BI 2-VIEW BREAST INC CAD Brittney Mercado PA-C [address] [place] [address] Br Imaging [address] [place] [address] Referral ID Status Reason Start Date Expiration Date V isits Requested Visits Authorized [id number] Closed Auto-Generate d Referral 10/22/2022 11/21/2023 1 1 [facility] [place] [facility] for visit Narrative* Diagnostic Procedure Only (Routine) - Closed Specialty Diagnoses / Procedures Referred By Contac t Referred To Contact BR IMAGING Diagnoses Visit for screening mammogram Procedures JULIETTE SCREENING SCREENING MAMMOGRAPHY BI 2-VIEW BREAST INC Alcira Walker MD [address] [place] [address] Br Imaging [address] [place] [address] Referral ID Status Reason Start Date Expiration Date V isits Requested Visits Authorized [id number] Closed Auto-Generate d Referral 10/28/2023 11/11/2024 1 1 [facility] [place] [facility] for visit Narrative* Pulmonary Rehabilitation (Routine) - Closed Specialty Diagnoses / Procedures Referred By Bridger t Referred To Contact Diagnoses Restrictive lung disease Procedures EXERCISE-6 MIN. WALK EXERCISE-6 MIN. WALK Omayra Herndon CNP [address] [place] [id number] Phone: tel: fax: Referral ID Status Reason Start Date Expiration Date Visits Re quested Visits Authorized [id number] Closed 07/26/2024 08/20/2025 1 1 [facility] for visit Narrative* Pulmonary Rehabilitation (Routine) - Closed Specialty Diagnoses / Procedures Referred By Bridger t Referred To Contact Diagnoses Restrictive lung disease Procedures PFT COMPLETE Omayra Herndon CNP [address] [place] [id number] Phone: tel: fax: Referral ID Status Reason Start Date Expiration Date Visits Re quested Visits Authorized [id number] Closed 07/26/2024 08/20/2025 1 1 [facility] for visit Narrative* MRI/CAT Scan (Routine) - Closed Specialty Diagnoses / Procedures Referred By Contmao t Referred To Contact Diagnoses Restrictive lung disease Procedures CT CHEST WITHOUT CONTRAST CT CHEST WITHOUT CONTRAST CHG DIAGNOSTIC COMPUTED TOMOGRAPHY THORAX W/O CNTRST Omayra Herndon CNP [address] [place] [id number] Phone: tel: fax: Referral ID Status Reason Start Date Expiration Date Visits Re quested Visits Authorized [id number] Closed 07/26/2024 08/20/2025 1 1 [facility] for visit Narrative* Diagnostic Procedure Only (Routine) - Closed Specialty Diagnoses / Procedures Referred By Contac t Referred To Contact XR IMAGING Diagnoses Seropositive rheumatoid arthritis (HCC) Pain in both hands Procedures XR HAND GENERAL 3V PA/LAT/OBL BILATERAL RADEX HAND MINIMUM 3 VIEWS Alberto Argueta, HAIR BOILER OPERATOR.CROP AND SOIL TECHNICIAN [address] [place] [address] Phone: tel: fax: [place] [address] Referral ID Status Reason Start Date Expiration Date V isits Requested Visits Authorized [id number] Closed Auto-Generate d Referral 10/26/2024 11/25/2025 1 1 [facility] Reason for Referral Status Reason Specialty Diagnoses / Procedures Referred By Contact Referred To Contact New Request Occupational Therapy Diagnoses Rheumatoid arthritis involving multiple sites with positive rheumatoid factor Antiplatelet or antithrombotic long-term use Fatigue, unspecified type History of rheumatoid arthritis 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 Asthma, unspecified asthma [...] of both shoulders Clinton Farrar Jr., DO [address] [place] [address] Specialty Diagnoses / Procedures Referred By Contac t Referred To Contact Hernesto Harvey APRN.CROP AND SOIL TECHNICIAN [address] [place] [address] Referral ID Status Reason Start Date Expiration Date V isits Requested Visits Authorized [id number] Authorized 08/27/2021 09/26/2022 1 1 Specialty Diagnoses / Procedures Referred By Contac t Referred To Contact Gastroenterology Diagnoses Chronic constipation Procedures CONSULT TO GASTROENTEROLOGY OFFICE/OUTPATIENT [facility] 60-74 MINUTES Hernesto Harvey APRN.CROP AND SOIL TECHNICIAN [address] [place] [address] Referral ID Status Reason Start Date Expiration Date Visits Requested Visits Authorized [id number] Authorized PCP Requested Referral 10/24/2021 10/24/2022 1 1 Specialty Diagnoses / Procedures Referred By Contac t Referred To Contact Podiatry Diagnoses Type 1 diabetes mellitus with diabetic neuropathy (HCC) [place] Procedures CONSULT TO PODIATRY OFFICE/OUTPATIENT [facility] 60-74 MINUTES Hernesto Harvey APRN.CROP AND SOIL TECHNICIAN [address] [place] [address] Referral ID Status Reason Start Date Expiration Date Visits Requested Visits Authorized [id number] Authorized PCP Requested Referral 06/09/2022 06/09/2023 1 1 Specialty Diagnoses / Procedures Referred By Contac t Referred To Contact Diagnoses Acute cough Clinton Heart, DO [address] [address] [place] [address] Referral ID Status Reason Start Date Expiration Date V isits Requested Visits Authorized [id number] Pending Review 1 1 Specialty Diagnoses / Procedures Referred By Contac t Referred To Contact Diagnoses Acute cough Hernesto Harvey APRN.CROP AND SOIL TECHNICIAN [address] [place] [address] Referral ID Status Reason Start Date Expiration Date Visits Re quested Visits Authorized [id number] Closed 1 1 Specialty Diagnoses / Procedures Referred By Contac t Referred To Contact Rheumatology Diagnoses Rheumatoid arthritis, involving unspecified site, unspecified whether rheumatoid factor present (HCC) Interstitial lung disease (HCC) Procedures CONSULT TO RHEUM/IMMUN DISEASE OFFICE/OUTPATIENT NEW HIGH MDM 60-74 MINUTES Older, CARLOS EDUARDO Weinberg.CROP AND SOIL TECHNICIAN [address] [place] [address] Referral ID Status Reason Start Date Expiration Date Visits Requested Visits Authorized [id number] Authorized PCP Requested Referral 10/01/2022 10/01/2023 1 1 Specialty Diagnoses / Procedures Referred By Contac t Referred To Contact Cardiovascular Medicine Diagnoses Secondary pulmonary arterial hypertension Procedures ECHOCARDIOGRAM HI ECHO HEART XTHORACIC,COMPLETE W DOPPLER Ivan Pal MD [address] [place] [address] [facility] [address] [place] [phone] Referral ID Status Reason Start Date Expiration Date V isits Requested Visits Authorized [id number] Auth Not Needed 11/12/2022 12/07/2023 1 1 Specialty Diagnoses / Procedures Referred By Contac t Referred To Contact Diagnoses NSIP (nonspecific interstitial pneumonitis) Interstitial lung disease Procedures PFT COMPLETE Ivan Pal MD [address] [place] [address] Referral ID Status Reason Start Date Expiration Date V isits Requested Visits Authorized [id number] Auth Not Needed 11/12/2022 12/07/2023 1 1 Specialty Diagnoses / Procedures Referred By Contac t Referred To Contact Diagnoses NSIP (nonspecific interstitial pneumonitis) Interstitial lung disease Procedures EXERCISE-6 MIN. WALK Ivan Pal MD [address] [place] [address] Referral ID Status Reason Start Date Expiration Date V isits Requested Visits Authorized [id number] Auth Not Needed 11/12/2022 12/07/2023 1 1 Specialty Diagnoses / Procedures Referred By Contac t Referred To Contact Diagnoses NSIP (nonspecific interstitial pneumonitis) Interstitial lung disease Procedures CT CHEST WITHOUT CONTRAST CHG DIAGNOSTIC COMPUTED TOMOGRAPHY THORAX W/O CNTRST Ivan Pal MD [address] [place] [address] Referral ID Status Reason Start Date Expiration Date V isits Requested Visits Authorized [id number] Auth Not Needed 11/12/2022 12/07/2023 1 1 Specialty Diagnoses / Procedures Referred By Contac t Referred To Contact Orthopedics Diagnoses Left hip pain Fall, initial encounter Procedures CONSULT TO ORTHOPAEDICS OFFICE/OUTPATIENT [facility] HIGH MDM 60-74 MINUTES Older, CARLOS EDUARDO Weinberg.CROP AND SOIL TECHNICIAN [address] [place] [address] Referral ID Status Reason Start Date Expiration Date Visits Requested Visits Authorized [id number] Authorized PCP Requested Referral 11/24/2022 11/24/2023 1 1 Specialty Diagnoses / Procedures Referred By Contac t Referred To Contact Computerized Tomography Scan Diagnoses NSIP (nonspecific interstitial pneumonitis) Interstitial lung disease Procedures CT CHEST WITHOUT CONTRAST CHG DIAGNOSTIC COMPUTED TOMOGRAPHY THORAX W/O CNTRST Ivan Pal MD [address] [place], [place] [id number] [facility] Scan [address] [place] [phone] Referral ID Status Reason Start Date Expiration Date Visits Re quested Visits Authorized [id number] Closed 11/12/2022 12/07/2023 1 1 Referral ID Status Reason Start Date Expiration Date Visits Re quested Visits Authorized [id number] Closed 11/12/2022 12/07/2023 1 1 Specialty Diagnoses / Procedures Referred By Contac t Referred To Contact Pulmonary Disease Diagnoses NSIP (nonspecific interstitial pneumonitis) Interstitial lung disease Procedures EXERCISE-6 MIN. WALK Ivan Pal MD [address] [place] [address] [facility] [address] [place] [phone] Referral ID Status Reason Start Date Expiration Date Visits Re quested Visits Authorized [id number] Closed 11/12/2022 12/07/2023 1 1 Specialty Diagnoses / Procedures Referred By Contac t Referred To Contact Pulmonary Disease Diagnoses Pulmonary fibrosis Procedures HI PHYS/QHP SVCS OP PULM REHAB WO CONT OXIMTRY MNTR Ivan Pal MD [address] [place] [address] Referral ID Status Reason Start Date Expiration Date V isits Requested Visits Authorized [id number] New Request 01/08/2023 02/02/2024 1 1 Specialty Diagnoses / Procedures Referred By Contac t Referred To Contact Diagnoses Restrictive lung disease Pulmonary fibrosis Uncomplicated asthma, unspecified asthma severity, unspecified whether persistent Procedures PFT COMPLETE Ivan Pal MD [address] [place] [address] Referral ID Status Reason Start Date Expiration Date V isits Requested Visits Authorized [id number] Auth Not Needed 01/08/2023 02/02/2024 1 1 Specialty Diagnoses / Procedures Referred By Contac t Referred To Contact Diagnoses Restrictive lung disease Pulmonary fibrosis Uncomplicated asthma, unspecified asthma severity, unspecified whether persistent Procedures EXERCISE-6 MIN. 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) Procedures CONSULT TO ENDOCRINOLOGY OFFICE/OUTPATIENT NEW HIGH MDM 60-74 MINUTES Hernesto Harvey APRN.CROP AND SOIL TECHNICIAN [address] [place] [address] Referral ID Status Reason Start Date Expiration Date Visits Requested Visits Authorized [id number] Authorized PCP Requested Referral 01/09/2023 01/09/2024 1 1 Specialty Diagnoses / Procedures Referred By Contac t Referred To Contact CT IMAGING Diagnoses Chest pain on breathing Shortness of breath Elevated d-dimer Procedures CT CHEST W IVCON PE DIAGNOSTIC COMPUTED TOMOGRAPHY THORAX W/CONTRAST Hernesto Harvey APRN.CROP AND SOIL TECHNICIAN [address] [place] [address] [place] [address] Referral ID Status Reason Start Date Expiration Date V isits Requested Visits Authorized [id number] Closed Auto-Generate d Referral 08/05/2022 09/04/2023 1 1 Specialty Diagnoses / Procedures Referred By Contac t Referred To Contact Orthopedics Diagnoses Right knee pain, unspecified chronicity Fall, initial encounter Procedures CONSULT TO ORTHOPAEDICS OFFICE/OUTPATIENT NEW HIGH MDM 60 MINUTES Hernesto Harvey APRN.CROP AND SOIL TECHNICIAN [address] [place] [address] Referral ID Status Reason Start Date Expiration Date Visits Requested Visits Authorized [id number] Authorized PCP Requested Referral 06/01/2023 05/31/2024 1 1 Specialty Diagnoses / Procedures Referred By Contac t Referred To Contact XR IMAGING Diagnoses Right knee pain, unspecified chronicity Fall, initial encounter Procedures XR KNEE GENERAL 4V AP BOTH/PA BOTH/LAT/MERC RIGHT RADIOLOGIC EXAM KNEE COMPLETE 4/MORE VIEWS Hernesto Harvey APRN.CROP AND SOIL TECHNICIAN [address] [place] [address] [place] [address] Referral ID Status Reason Start Date Expiration Date Visits Requested Visits Authorized [id number] Pending Review Auto-Generat ed Referral 06/01/2023 06/30/2024 1 1 Specialty Diagnoses / Procedures Referred By Contac t Referred To Contact [facility] Diagnoses Right knee pain, unspecified chronicity Procedures [facility] - CONSULT TO PHYSICAL THERAPY OFFICE/OUTPATIENT NEW HIGH MDM 60 MINUTES Manuela Heart, HAIR BOILER OPERATOR.CROP AND SOIL TECHNICIAN [address] [place] [address] [facility] [place] [address] [place] [address] Referral ID Status Reason Start Date Expiration Date Visits Requested Visits Authorized [id number] Pending Review Auto-Generat ed Referral 06/26/2023 06/25/2024 99 99 Specialty Diagnoses / Procedures Referred By Contac t Referred To Contact Orthopedics Diagnoses Right knee pain, unspecified chronicity Procedures CONSULT TO ORTHOPAEDICS OFFICE/OUTPATIENT NEW HIGH MDM 60 MINUTES Manuela Heart, CARLOS EDUARDO.CROP AND SOIL TECHNICIAN [address] [place] [address] Referral ID Status Reason Start Date Expiration Date V isits Requested Visits Authorized [id number] Closed PCP Requested Referral 06/26/2023 06/25/2024 1 1 Specialty Diagnoses / Procedures Referred By Contac t Referred To Contact MR IMAGING Diagnoses Patellar tendon strain, right, initial encounter Procedures MRI KNEE WO IVCON RIGHT MRI ANY JT LOWER EXTREM W/O CONTRAST MATRL Justo Givens V, DO [address] [place] [address] [place] [address] Referral ID Status Reason Start Date Expiration Date Visits Requested Visits Authorized [id number] Authorized Auto-Generat ed Referral 06/26/2023 07/25/2024 1 1 Specialty Diagnoses / Procedures Referred By Contac t Referred To Contact Diagnoses 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) Procedures ENDOCRINOLOGY DIETITIAN VISIT (MNT) MEDICAL NUTRITION ASSMT&IVNTJ INDIV EACH 15 MO MEDICAL NUTRITION ASSMT&IVNTJ INDIV EACH 15 MO MEDICAL NUTRITION ASSMT&IVNTJ INDIV EACH 15 MO MEDICAL NUTRITION ASSMT&IVNTJ INDIV EACH 15 MO Eva Nielsen MD [address] [place] [address] Referral ID Status Reason Start Date Expiration Date Visits Requested Visits Authorized [id number] Authorized PCP Requested Referral 08/03/2023 2024 1 1 Referral ID Status Reason Start Date Expiration Date Visits Re quested Visits Authorized [id number] Closed 01/08/2023 02/02/2024 1 1 Referral ID Status Reason Start Date Expiration Date Visits Re quested Visits Authorized [id number] Closed 01/08/2023 02/02/2024 1 1 Specialty Diagnoses / Procedures Referred By Contac t Referred To Contact Diagnoses Interstitial lung disease Procedures CT CHEST WITHOUT CONTRAST CHG DIAGNOSTIC COMPUTED TOMOGRAPHY THORAX W/O CNTRST Ivan Pal MD [address] [place] [address] Referral ID Status Reason Start Date Expiration Date Visits Re quested Visits Authorized [id number] Closed 12/06/2022 12/31/2023 1 1 Specialty Diagnoses / Procedures Referred By Bridger t Referred To Contact Diagnoses Pulmonary fibrosis Procedures PFT COMPLETE Ivan Pal MD [address] [place] [address] Referral ID Status Reason Start Date Expiration Date V isits Requested Visits Authorized [id number] New Request 08/25/2023 09/18/2024 1 1 Specialty Diagnoses / Procedures Referred By Bridger t Referred To Contact Diagnoses Pulmonary fibrosis Procedures EXERCISE-6 MIN. 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) Type 1 diabetes mellitus with polyneuropathy (HCC) Procedures ENDOCRINOLOGY DIETITIAN VISIT (MNT) MEDICAL NUTRITION ASSMT&IVNTJ INDIV EACH 15 MO MEDICAL NUTRITION ASSMT&IVNTJ INDIV EACH 15 MO MEDICAL NUTRITION ASSMT&IVNTJ INDIV EACH 15 MO MEDICAL NUTRITION ASSMT&IVNTJ INDIV EACH 15 MO Eva Nielsen MD [address] [place] [address] EXTERNAL-NON [facility] Referral ID Status Reason Start Date Expiration Date Visits Requested Visits Authorized [id number] Authorized PCP Requested Referral 09/15/2023 09/14/2024 1 1 Specialty Diagnoses / Procedures Referred By Alyac t Referred To Contact Diagnoses Type 1 diabetes mellitus with diabetic neuropathy (HCC) Procedures CONSULT TO DIABETES EDUCATION DSME MEDICAL NUTRITION ASSMT&IVNTJ INDIV EACH 15 MO MEDICAL NUTRITION ASSMT&IVNTJ INDIV EACH 15 MO MEDICAL NUTRITION ASSMT&IVNTJ INDIV EACH 15 MO MEDICAL NUTRITION ASSMT&IVNTJ INDIV EACH 15 MO Hernesto Harvey APRN.CROP AND SOIL TECHNICIAN [address] [place] [address] Referral ID Status Reason Start Date Expiration Date Visits Requested Visits Authorized [id number] Authorized PCP Requested Referral 12/07/2023 12/06/2024 1 1 Specialty Diagnoses / Procedures Referred By Bridger t Referred To Contact Ent - Otolaryngology Diagnoses Recurrent sinusitis Epistaxis Procedures CONSULT TO ENT OFFICE/OUTPATIENT [facility] 60 MINUTES Hernesto Harvey APRN.CROP AND SOIL TECHNICIAN [address] [place] [address] Referral ID Status Reason Start Date Expiration Date Visits Requested Visits Authorized [id number] Authorized PCP Requested Referral 04/14/2025 1 1 History of Present Illness * lCinton Farrar Jr., - 05/16/2019 10:15 AM EST [...] History of rheumatoid arthritis History of stroke [facility] (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 of aspirin Asthma, unspecified asthma [...] very difficult. Patient has been on Plaquenil [id number]. I have been told that Tramadol is [...] (TIA), and cerebral infarction without residual deficits [facility] (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 of aspirin Asthma, unspecified asthma [...] Purpose Family History No Family History Records Found Relationship Condition Age at Onset Recorded Date/T sintia mother Malignant neoplasm of breast Unknown Disorder of thyroid Unknown Cardiac disease Unknown brother Cardiac disease 52 Advance Directives No Advanced Directives Records FoundDocuments on File Type Date Recorded Patient Counseling Program Leader Expl anation Advance Directive(s) Advance Directive(s) 09/28/2019 9:21 PM Advance Directive(s) 11/10/2018 10:04 AM S canned 11-10-2018 Advance Directive(s) 11/10/2018 9:59 AM Advance Directive(s) 08/29/2015 7:09 AM Documents on File Type Date Recorded Patient Counseling Program Leader Expl anation Advance Directive(s) Advance Directive(s) 09/28/2019 9:21 PM Advance Directive(s) 11/10/2018 10:04 AM S canned 11-10-2018 Advance Directive(s) 11/10/2018 9:59 AM Advance Directive(s) 08/29/2015 7:09 AM Advance Directive Response Recorded Date/ Time Advance Directives Yes November 05 2:23pm Living Will No November 05, 2021 2:23pm Power of Medication Nurse No November 05 2:23pm Documents on File Type Date Recorded Patient Counseling Program Leader Expl anation Advance Directive(s) 11/10/2018 9:59 AM Documents on File Type Date Recorded Patient Counseling Program Leader Expl anation Advance Directive(s) 11/10/2018 9:59 AM Advance Directive Response Recorded Date/ Time Advance Directives Yes November 05 1:23pm Living Will No November 05, 2021 1:23pm Power of Medication Nurse No November 05 1:23pm Advance Directive Response Recorded Date/ Time Name of Medical Power of Medication Nurse SPOUSE April 06, 2023 2:19pm Advance Directives Yes November 05 1:23pm Living Will Yes April 06, 2:19pm Power of Medication Nurse Yes April 06, 2023 2:19pm Advance Directive Response Recorded Date/ Time Advance Directives Yes November 05 1:23pm Living Will No May 23 3:12pm Power of Medication Nurse No May 23, 2023 3:12pm Name of Medical Power of Medication Nurse SPOUSE April 06, 2023 2:19pm Advance Directive Response Recorded Date/ Time Living Will No May 23 4:12pm Do you have a Healthcare Power of Medication Nurse? No May 23, 2023 4:12pm Advance Directives Yes November 05 2:23pm Hospital Course Note HNO ID: [id number] Author: Damari Moore Service: Hospital Medicine Author Type: Physician Type: Discharge Summary Filed: 09/30/2019 3:46 PM Note Text: DISCHARGE SUMMARY PATIENT NAME: Kylie Russo ADMISSION DATE: 09/28/2019 DISCHARGE DATE: 09/30/2019 [...] on lab d (more content not included)... Chief Complaint and Reason for Visit Chief Complaint 4 M FU Consult E-ORDER Reason for Visit Essential (primary) hypertension Obesity Type 1 diabetes mellitus Early satiety History of colitis Chronic constipation Chief Complaint Consult E-ORDER SUSPECTED GASTROPARESIS Reason for Visit Early satiety History of colitis Chronic constipation Chief Complaint 1 Y FU (MOVED FROM [facility]) Interstitial lung disease INTERSTITIAL PULM DISEASE INTERSTITIAL PULM DISEASE INTERSTITIAL PULM DISEASE INTERSTITIAL PULM DISEASE 6 wk FU Reason for Visit Atherosclerosis of c oronary artery of [place] heart without angina pectoris Essential (primary) hypertension Hyperlipidemia Interstitial lung disease Interstitial lung disease Chief Complaint 6 M FU 3 M FU E-ORDER Reason for Visit Insulin pump titrati on Essential (primary) hypertension Hyperlipidemia Obesity Presence of insulin pump Type 1 diabetes mellitus Essential (primary) hypertension Presence of insulin pump Type 1 diabetes mellitus Chief Complaint 3 M FU E-ORDER FU Reason for Visit Essential (primary) hypertension Presence of insulin pump Type 1 diabetes mellitus Chronic constipation Gastroparesis Chief Complaint 3 M FU E-ORDER FU RT KNEE Reason for Visit Essential (primary) hypertension Presence of insulin pump Type 1 diabetes mellitus Chronic constipation Gastroparesis Chief Complaint Admit Date 6 M FU May 17, 2024 1 0:04am SINUSITIS June 06, 2024 1:49pm Follow up August 30, 2024 8:25a m Reason for Visit Admit Date Aortic stenosis May 17, 2024 1 0:04am Essential (primary) hypertension May 17, 2024 10:04am Hyperlipidemia May 17, 2024 1 0:04am History of coronary artery stent placeme nt May 17, 2024 10:04am Chief Complaint Admit Date 1 Y FU January 10, 2025 9:58am LLQ abdominal pain January 17, 2025 2:02pm Reason for Visit Admit Date Carotid stenosis January 10, 2025 9:58am Aortic stenosis January 10, 2025 9:58am Essential (primary) hypertension Septemb er 2024 9:58am Hyperlipidemia January 10, 2025 9:58am History of coronary artery stent placeme nt January 10, 2025 9:58am Additional Source Comments Reason for Visit (unrecogniz ed section and content) Reason Comments Joint Pain Patient was referred by PCP to establish with a new [employer]. Patient was previously seeing a [employer] Painter And Grader Dr. Grajeda in [place], [place]. Patient has tried Methotrexate, Humira, Enbrel, Simponi, and Enbrel, did not work so patient was taking plaquenil. Reason Comments Joint Pain Patient is here [...] constipati on Reason Comments Carotid artery stenosis Bridger is here fo r 6 month follow [...] Annual wellness Reason Comments Fax referral to [facility] Reason Comments Patient Question Reason Onset Date Comments Insurance Authorization 07/09/2022 Reason Onset Date Comments Refill Request 07/17/2022 Reason Comments Recheck Pneumonia follow up Reason Comments Recheck Pneumonia follow up Reason Comments Orders Reason Comments Recheck SOB follow up Reason Onset Date Comments Refill Request 08/05/2021 Refill Request 08/06/2022 Reason Comments New ILD Reason Comments Faxed to [facility] Pulm Reason Onset Date Comments Refill Request 08/18/2022 Reason Comments Follow-up Patient is here for 4 month F/U. Patient states she has not been feeling well. Had pneumonia and is seeing a soil fertility specialist. Having pain in fingers. Severe pain down left leg. Had injections last . Reason Comments AutoImmune Concerns Reason Comments Medicare Wellness Exam Reason Comments Asthma Specialty Diagnoses / Procedures Referred By Bridger t Referred To Contact Pulmonary Disease Diagnoses NSIP (nonspecific interstitial pneumonitis) Fatty liver Hyperglycemia Metabolic acidosis Lumbar degenerative disc disease Osteoarthritis of cervical spine, unspecified spinal osteoarthritis complication status Osteoarthritis of both hands, unspecified osteoarthritis type Osteoarthritis of both wrists, unspecified osteoarthritis type Rotator cuff arthropathy of both shoulders Thoracic degenerative disc disease Positive D dimer History of rheumatoid arthritis 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 of non-steroidal anti-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 (NSAID) Long-term use of high-risk medication Long-term use of Plaquenil On statin therapy Leni Magallanes, Clinton Carmichael, DO [address] [place] [phone] Ivan Pal MD [address] [place] [address] Referral ID Status Reason Start Date Expiration Date V isits Requested Visits Authorized [id number] New Request 09/29/2022 10/24/2023 1 1 Reason Onset Date Comments Population Health Navigation Outreach 11/17/2022 ACO [facility] PCSA Reason Comments Carotid artery stenosis Bridger to review 11/11/22 carotid US Follow Up Carotid Stenosis - C arotid US done 11/11/22 Reason Comments Recheck Follow up, L leg ronnie n from fall Specialty Diagnoses / Procedures Referred By Bridger rodriguez Referred To Contact Pulmonary Disease Diagnoses NSIP (nonspecific interstitial pneumonitis) Interstitial lung disease Procedures PFT COMPLETE Ivan Pal MD [address] [place] [address] [facility] [address] [place] [phone] Referral ID Status Reason Start Date Expiration Date Visits Re quested Visits Authorized [id number] Closed 11/12/2022 12/07/2023 1 1 Specialty Diagnoses / Procedures Referred By Bridger t Referred To Contact Computerized Tomography Scan Diagnoses NSIP (nonspecific interstitial pneumonitis) Interstitial lung disease Procedures CT CHEST WITHOUT CONTRAST CHG DIAGNOSTIC COMPUTED TOMOGRAPHY THORAX W/O CNTRST Ivan Pal MD [address] [place], [place] [id number] [facility] [address] [place] [phone] Referral ID Status Reason Start Date Expiration Date Visits Re quested Visits Authorized [id number] Closed 11/12/2022 12/07/2023 1 1 Specialty Diagnoses / Procedures Referred By Bridger t Referred To Contact Cardiovascular Medicine Diagnoses Secondary pulmonary arterial hypertension Procedures ECHOCARDIOGRAM HI ECHO HEART XTHORACIC,COMPLETE W DOPPLER Ivan Pal MD [address] [place] [address] [facility] [address] [place], [place] [phone] Referral ID Status Reason Start Date Expiration Date Visits Re quested Visits Authorized [id number] Closed 11/12/2022 12/07/2023 1 1 Specialty Diagnoses / Procedures Referred By Bridger t Referred To Contact Pulmonary Disease Diagnoses NSIP (nonspecific interstitial pneumonitis) Interstitial lung disease Procedures EXERCISE-6 MIN. WALK Ivan Pal MD [address] [place] [phone] [facility] [address] [place] [phone] Referral ID Status Reason Start Date Expiration Date Visits Re quested Visits Authorized [id number] Closed 11/12/2022 12/07/2023 1 1 Reason Comments [...] IVCON PE DIAGNOSTIC COMPUTED TOMOGRAPHY THORAX W/CONTRAST Hernesto Harvey APRN.CROP AND SOIL TECHNICIAN [address] [place] [address] [place] [address] Referral ID Status Reason Start Date Expiration Date V isits Requested Visits Authorized [id number] Closed Auto-Generate d Referral 08/05/2022 09/04/2023 1 1 Reason Comments New Patient Specialty Diagnoses / Procedures Referred By Contac t Referred To Contact Rheumatology Diagnoses Rheumatoid arthritis, involving unspecified site, unspecified whether rheumatoid factor present (HCC) Interstitial lung disease (HCC) Procedures CONSULT TO RHEUM/IMMUN DISEASE OFFICE/OUTPATIENT NEW HIGH MDM 60-74 MINUTES Hernesto Harvey APRN.CROP AND SOIL TECHNICIAN [address] [place] [address] Referral ID Status Reason Start Date Expiration Date V isits Requested Visits Authorized [id number] Closed PCP Requested Referral 10/01/2022 10/01/2023 1 1 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 Comments 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 Reason Comments vaccine question Reason Comments Patient Question Results Reason Comments Patient Update Orders Reason Comments type 1 diabetes Using 780 medtronic pump, guardian sensors Specialty Diagnoses / Procedures Referred By Contac t Referred To Contact Endocrinology Diagnoses 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) Procedures CONSULT TO ENDOCRINOLOGY OFFICE/OUTPATIENT [facility] 60 MINUTES Hernesto Harvey HAIR BOILER OPERATOR.CROP AND SOIL TECHNICIAN [address] [place] [address] Referral ID Status Reason Start Date Expiration Date V isits Requested Visits Authorized [id number] Closed PCP Requested Referral 05/04/2023 05/03/2024 1 1 Reason Comments Patient Question Insulin request from [facility] Reason Comments Medication Problem Unsure of where to s end medications Reason Comments Knee Pain R knee pain and swel ling has been going on for a few weeks, has had xray and had shots done by basali Reason Comments Insulin & Pump Rx to DME [facility] Reason Comments Right Knee Pain Specialty Diagnoses / Procedures Referred By Contac t Referred To Contact Orthopedics Diagnoses Right knee pain, unspecified chronicity Procedures CONSULT TO ORTHOPAEDICS OFFICE/OUTPATIENT [facility] 60 MINUTES Manuela Heart, HAIR BOILER OPERATOR.CROP AND SOIL TECHNICIAN [address] [place] [address] Referral ID Status Reason Start Date Expiration Date V isits Requested Visits Authorized [id number] Closed PCP Requested Referral 06/26/2023 06/25/2024 1 1 Reason Comments Established Patient Reason Comments Assessment Patient Education Specialty Diagnoses / Procedures Referred By Contac t Referred To Contact Diagnoses 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) Procedures ENDOCRINOLOGY DIETITIAN VISIT (MNT) MEDICAL NUTRITION ASSMT&IVNTJ INDIV EACH 15 MO MEDICAL NUTRITION ASSMT&IVNTJ INDIV EACH 15 MO MEDICAL NUTRITION ASSMT&IVNTJ INDIV EACH 15 MO MEDICAL NUTRITION ASSMT&IVNTJ INDIV EACH 15 MO Eva Nielsen MD [address] [place] [address] Referral ID Status Reason Start Date Expiration Date V isits Requested Visits Authorized [id number] Closed PCP Requested Referral 08/03/2023 2024 1 1 Specialty Diagnoses / Procedures Referred By Contac t Referred To Contact Diagnoses Restrictive lung disease Pulmonary fibrosis Uncomplicated asthma, unspecified asthma severity, unspecified whether persistent Procedures EXERCISE-6 MIN. WALK Amurao V, Ivan, MD [address] [place] [phone] Referral ID Status Reason Start Date Expiration Date Visits Re quested Visits Authorized [id number] Closed 01/08/2023 02/02/2024 1 1 Specialty Diagnoses / Procedures Referred By Contac t Referred To Contact Diagnoses Restrictive lung disease Pulmonary fibrosis Uncomplicated asthma, unspecified asthma severity, unspecified whether persistent Procedures PFT COMPLETE Ivan Pal MD [address] [place], [place] [id number] Referral ID Status Reason Start Date Expiration Date Visits Re quested Visits Authorized [id number] Closed 01/08/2023 02/02/2024 1 1 Specialty Diagnoses / Procedures Referred By Bridger t Referred To Contact Diagnoses Interstitial lung disease Procedures CT CHEST WITHOUT CONTRAST CHG DIAGNOSTIC COMPUTED TOMOGRAPHY THORAX W/O CNTRST Ivan Pal MD [address] [place], [place] [id number] Referral ID Status Reason Start Date Expiration Date Visits Re quested Visits Authorized [id number] Closed 12/06/2022 12/31/2023 1 1 Reason Comments Recheck 3 month follow up Reason Comments Asthma Reason Comments Reassessment Patient Education Reason Comments Type 1 Diabetes Specialty Diagnoses / Procedures Referred By Bridger t Referred To Contact Endocrinology Diagnoses 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) Type 1 diabetes mellitus with polyneuropathy (HCC) Procedures ENDOCRINOLOGY DIETITIAN VISIT (MNT) MEDICAL NUTRITION ASSMT&IVNTJ INDIV EACH 15 MO MEDICAL NUTRITION ASSMT&IVNTJ INDIV EACH 15 MO MEDICAL NUTRITION ASSMT&IVNTJ INDIV EACH 15 MO MEDICAL NUTRITION ASSMT&IVNTJ INDIV EACH 15 MO Eva Nielsen MD [address] [place] [address] EXTERNAL-NON [facility] Referral ID Status Reason Start Date Expiration Date V isits Requested Visits Authorized [id number] Closed PCP Requested Referral 09/15/2023 09/14/2024 1 1 Reason Comments Insomnia Reason Comments Orders Request for insulin rx Reason Comments Rheumatoid Arthritis Reason Comments Medication Problem Ambien new dosage no t working Reason Comments Medication Problem Reason Comments Covid19 Concern Reason Comments Covid Positive Reason Onset Date Comments Refill Request 01/15/2024 Reason Comments Recheck Covid positive, whee zing at night Reason Comments cough worse Reason Onset Date Comments Refill Request 02/04/2024 Reason Onset Date Comments Refill Request 07/24/2023 Reason Comments Medical Nutrition Therapy Type 1 Diabete s Reason Comments Type 1 Diabetes Reason Comments Follow Up Reason Onset Date Comments Refill Request 03/02/2024 Reason Onset Date Comments Refill Request 04/06/2024 Reason Comments Cough Reason Onset Date Comments Refill Request 04/15/2024 Reason Comments Abstract PLQ eye exam Reason Comments Established Patient Reason Comments Updated OV Notes to DME Reason Comments Recheck Medication follow up Reason Onset Date Comments Refill Request 06/02/2024 Reason Comments Other Pulmonary fibrosis Reason Comments Certificate of Medical Necessity Reason Comments Patient Update on pulmonology appt Reason Comments Cough Cough, chest congest ion, sinus and [place] x 2 weeks Reason Comments Other Restrictive lung dis ease Reason Comments OV Notes to DME Reason Comments Insulin Dependent Diabetes Mellitus Reason Comments Appointment R/s Reason Comments Type 1 Diabetes Reason Comments Rheumatoid Arthritis Reason Comments Appointment appt Reason Comments Mouth/Lip Problem Possible thrush Reason Onset Date Comments Refill Request 11/14/2024 Reason Comments F/U 3 Month Reason Onset Date Comments Population Health Navigation Outreach 11/30/2024 [facility] INFORMATION SOURCE (unrecogn ized section and content) DATE CREATED AUTHOR 09/30/2019 [facility] DATE CREATED AUTHOR AUTHOR'S ORGANIZ ATION 09/07/2023 [facility] DATE CREATED AUTHOR AUTHOR'S ORGANIZ ATION 09/14/2024 [facility] DATE CREATED AUTHOR AUTHOR'S ORGANIZ ATION 11/06/2024 [facility] DATE CREATED AUTHOR AUTHOR'S ORGANIZ ATION 03/01/2025 [facility] DATE CREATED AUTHOR AUTHOR'S ORGANIZ ATION 03/02/2025 [facility] Care Teams (unrecognized sec tion and content) Agronomy Specialist Relationship Specialty Start Date End Date Alcira Anderson MD [address] [place], [place] [id number] PCP - General Internal Medicine 05/16/19 Agronomy Specialist Relationship Specialty Start Date End Date Alcira Anderson MD [address] [place], [place] [phone] PCP - General Internal Medicine 07/05/15 Raquel Herrera Endocrinology 10/19/15 Jonas Etienne [address] [place], [place] [phone] Physician Ophthalmology 03/21/20 Agronomy Specialist Relationship Specialty Start Date End Date Alcira Anderson MD [address] [place], [place] [phone] PCP - General Internal Medicine 07/05/15 Raquel Herrera Endocrinology 10/19/15 Jonas Etienne [address] [place], [place] [phone] Physician Ophthalmology 03/21/20 Agronomy Specialist Relationship Specialty Start Date End Date Alcira Anderson MD [address] [place], [place] [address] [phone] PCP - General Internal Medicine 07/05/15 Raquel Herrera Endocrinology 10/19/15 Jonas Etienne [facility] [place] [address] Physician Ophthalmology 03/21/20 Agronomy Specialist Relationship Specialty Start Date End Date Alcira Anderson MD [address] [place], [place] [address] [phone] PCP - General Internal Medicine 07/05/15 Raquel Herrera Endocrinology 10/19/15 Jonas Etienne [address] [place] [address] Physician Ophthalmology 03/21/20 Agronomy Specialist Relationship Specialty Start Date End Date Alcira Anderson MD [address] [place] [address] PCP - General Internal Medicine 07/05/15 Raquel Herrera Endocrinology 10/19/15 Jonas Etienne [address] [place] [address] Physician Ophthalmology 03/21/20 Agronomy Specialist Relationship Specialty Start Date End Date Alcira Anderson MD [address] [place] [address] PCP - General Internal Medicine 07/05/15 Raquel Herrera Endocrinology 10/19/15 Jonas Etienne [address] [place], [place] [phone] Physician Ophthalmology 03/21/20 Agronomy Specialist Relationship Specialty Start Date End Date Alcira Anderson MD [address] [place] [address] PCP - General Internal Medicine 07/05/15 Raquel Herrera Endocrinology 10/19/15 Jonas Etienne [address] [place], [place] [address] [phone] Physician Ophthalmology 03/21/20 Agronomy Specialist Relationship Specialty Start Date End Date Alcira Anderson MD [address] [place] [address] PCP - General Internal Medicine 07/05/15 Raquel Herrera Endocrinology 10/19/15 Jonas Etienne [address] [place] [address] Physician Ophthalmology 03/21/20 Agronomy Specialist Relationship Specialty Start Date End Date Alcira Anderson MD [address] [place] [address] PCP - General Internal Medicine 07/05/15 Raquel Herrera Endocrinology 10/19/15 Jonas Etienne [address] [place] [address] Physician Ophthalmology 03/21/20 Agronomy Specialist Relationship Specialty Start Date End Date Alcira Anderson MD [address] [place] [address] PCP - General Internal Medicine 07/05/15 Raquel Herrera Endocrinology 10/19/15 Jonas Etienne [address] [place] [address] Physician Ophthalmology 03/21/20 Agronomy Specialist Relationship Specialty Start Date End Date Alcira Anderson MD [address] [place] [address] PCP - General Internal Medicine 07/05/15 Raquel Herrera Endocrinology 10/19/15 Jonas Etienne [address] [place] [address] Physician Ophthalmology 03/21/20 Agronomy Specialist Relationship Specialty Start Date End Date Alcira Anderson MD [address] [place] [address] PCP - General Internal Medicine 07/05/15 Raquel Herrera MD Endocrinology 10/19/15 Jonas Etienne [address] [place] [address] Physician Ophthalmology 03/21/20 Agronomy Specialist Relationship Specialty Start Date End Date Alcira Anderson MD [address] [facility] [place] [address] PCP - General Internal Medicine 07/05/15 Raquel Herrera MD Endocrinology 10/19/15 Jonas Etienne [address] [place] [address] Physician Ophthalmology 03/21/20 Agronomy Specialist Relationship Specialty Start Date End Date Alcira Anderson MD [address] [place] [address] PCP - General Internal Medicine 07/05/15 Raquel Herrera MD Endocrinology 10/19/15 Jonas Etienne [facility] [place] [address] Physician Ophthalmology 03/21/20 Agronomy Specialist Relationship Specialty Start Date End Date Alcira Anderson MD [address] [place] [address] PCP - General Internal Medicine 07/05/15 Raquel Herrera MD Endocrinology 10/19/15 Jonas Etienne [facility] [place] [address] Physician Ophthalmology 03/21/20 Agronomy Specialist Relationship Specialty Start Date End Date Alcira Anderson MD [address] [place] [address] PCP - General Internal Medicine 07/05/15 Raquel Herrera MD Endocrinology 10/19/15 Jonas Etienne [address] [place] [address] Physician Ophthalmology 03/21/20 Agronomy Specialist Relationship Specialty Start Date End Date Alcira Anderson MD [address] [place] [address] PCP - General Internal Medicine 07/05/15 Raquel Herrera MD Endocrinology 10/19/15 Jonas Etienne [address] [place], [place] [address] [phone] Physician Ophthalmology 03/21/20 Agronomy Specialist Relationship Specialty Start Date End Date Alciar Anderson MD [address] [place] [address] PCP - General Internal Medicine 07/05/15 Raquel Herrera MD Endocrinology 10/19/15 Jonas Etienne [address] [place], [place] [address] [phone] Physician Ophthalmology 03/21/20 Agronomy Specialist Relationship Specialty Start Date End Date Alcira Anderson MD [address] [place] [address] PCP - General Internal Medicine 07/05/15 Raquel Herrera MD Endocrinology 10/19/15 Jonas Etienne [address] [place], [place] [id number] [phone] Physician Ophthalmology 03/21/20 Agronomy Specialist Relationship Specialty Start Date End Date Alcira Anderson MD [address] [place] [address] PCP - General Internal Medicine 07/05/15 Raquel Herrera MD Endocrinology 10/19/15 Jonas Etienne [address] [place] [address] Physician Ophthalmology 03/21/20 Agronomy Specialist Relationship Specialty Start Date End Date Alcira Anderson MD [address] [place] [address] PCP - General Internal Medicine 07/05/15 Raquel Herrera MD Endocrinology 10/19/15 Jonas Etienne [address] [place] [address] Physician Ophthalmology 03/21/20 Agronomy Specialist Relationship Specialty Start Date End Date Alcira Anderson MD [address] [facility] [place] [address] PCP - General Internal Medicine 07/05/15 Raquel Herrera MD [address] [facility] [place] [address] Endocrinology 10/19/15 Jonas Etienne [address] [place] [address] Physician Ophthalmology 03/21/20 Agronomy Specialist Relationship Specialty Start Date End Date Alcira Anderson MD [address] [facility] [place] [address] PCP - General Internal Medicine 07/05/15 Raquel Herrera MD [address] [facility] [place] [address] Endocrinology 10/19/15 Jonas Etienne [address] [place] [address] Physician Ophthalmology 03/21/20 Agronomy Specialist Relationship Specialty Start Date End Date Alcira Anderson MD [address] [facility] [place] [address] PCP - General Internal Medicine 07/05/15 Raquel Herrera MD [address] [facility] [place] [address] Endocrinology 10/19/15 Jonas Etienne [address] [place] [address] Physician Ophthalmology 03/21/20 Agronomy Specialist Relationship Specialty Start Date End Date Alcira Anderson MD [address] [facility] [place] [address] PCP - General Internal Medicine 07/05/15 Raquel Herrera MD [address] [facility] [place] [address] Endocrinology 10/19/15 Jonas Etienne [address] [place] [address] Physician Ophthalmology 03/21/20 Agronomy Specialist Relationship Specialty Start Date End Date Alcira Anderson MD [address] [facility] [place] [address] PCP - General Internal Medicine 07/05/15 Raquel Herrera MD [address] [facility] [place] [address] Endocrinology 10/19/15 Jonas Etienne [address] [place] [address] Physician Ophthalmology 03/21/20 Agronomy Specialist Relationship Specialty Start Date End Date Alcira Anderson MD [address] [facility] [place] [address] PCP - General Internal Medicine 07/05/15 Raquel Herrera MD [address] [facility] [place] [address] Endocrinology 10/19/15 Jonas Etienne [address] [place] [address] Physician Ophthalmology 03/21/20 Agronomy Specialist Relationship Specialty Start Date End Date Alcira Anderson MD [address] [facility] [place] [address] PCP - General Internal Medicine 07/05/15 Raquel Herrera MD [address] [facility] [place] [address] Endocrinology 10/19/15 Jonas Etienne [address] [place] [address] Physician Ophthalmology 03/21/20 Agronomy Specialist Relationship Specialty Start Date End Date Alcira Anderson MD [address] [facility] [place] [address] PCP - General Internal Medicine 07/05/15 Raquel Herrera MD [address] [facility] [place] [address] Endocrinology 10/19/15 Jonas Etienne [address] [place] [address] Physician Ophthalmology 03/21/20 Agronomy Specialist Relationship Specialty Start Date End Date Alcira Anderson MD [address] [facility] [place] [address] PCP - General Internal Medicine 07/05/15 Raquel Herrera MD [address] [facility] [place] [address] Endocrinology 10/19/15 Jonas Etienne [address] [place] [address] Physician Ophthalmology 03/21/20 Agronomy Specialist Relationship Specialty Start Date End Date Alcira Anderson MD [address] [facility] [place] [address] PCP - General Internal Medicine 07/05/15 Raquel Herrera MD [address] [facility] [place] [address] Endocrinology 10/19/15 Jonas Etienne [address] [place] [address] Physician Ophthalmology 03/21/20 Agronomy Specialist Relationship Specialty Start Date End Date Alcira Anderson MD [address] [facility] [place] [address] PCP - General Internal Medicine 07/05/15 Raquel Herrera MD [address] [facility] [place] [address] Endocrinology 10/19/15 Jonas Etienne [facility] [place] [address] Physician Ophthalmology 03/21/20 Agronomy Specialist Relationship Specialty Start Date End Date Alcira Anderson MD [address] [facility] [place] [address] PCP - General Internal Medicine 07/05/15 Raquel Herrera MD [address] [facility] [place] [address] Endocrinology 10/19/15 Jonas Etienne [address] [place] [address] Physician Ophthalmology 03/21/20 Agronomy Specialist Relationship Specialty Start Date End Date Alcira Anderson MD [address] [facility] [place] [address] PCP - General Internal Medicine 07/05/15 Raquel Herrera MD [address] [facility] [place] [address] Endocrinology 10/19/15 Jonas Etienne [address] [place] [address] Physician Ophthalmology 03/21/20 Agronomy Specialist Relationship Specialty Start Date End Date Alcira Anderson MD [address] [facility] [place] [address] PCP - General Internal Medicine 07/05/15 Raquel Herrera MD [address] [facility] [place] [address] Endocrinology 10/19/15 Jonas Etienne [address] [place] [address] Physician Ophthalmology 03/21/20 Agronomy Specialist Relationship Specialty Start Date End Date Alcira Anderson MD [address] [facility] [place] [address] PCP - General Internal Medicine 07/05/15 Raquel Herrera MD [address] [facility] [place] [address] Endocrinology 10/19/15 Jonas Etienne [address] [place] [address] Physician Ophthalmology 03/21/20 Agronomy Specialist Relationship Specialty Start Date End Date Alcira Anderson MD [address] [facility] [place] [address] PCP - General Internal Medicine 07/05/15 Raquel Herrera MD [address] [facility] [place] [address] Endocrinology 10/19/15 Jonas Etienne [address] [place] [address] Physician Ophthalmology 03/21/20 Agronomy Specialist Relationship Specialty Start Date End Date Alcira Anderson MD [address] [facility] [place] [address] PCP - General Internal Medicine 07/05/15 Raquel Herrera MD [address] [facility] [place] [address] Endocrinology 10/19/15 Jonas Etienne [address] [place] [address] Physician Ophthalmology 03/21/20 Agronomy Specialist Relationship Specialty Start Date End Date Alcira Anderson MD [address] [facility] [place] [address] PCP - General Internal Medicine 07/05/15 Raquel Herrera MD [address] [facility] [place] [address] Endocrinology 10/19/15 Jonas Etienne [address] [place] [address] Physician Ophthalmology 03/21/20 Agronomy Specialist Relationship Specialty Start Date End Date Alcira Anderson MD [address] [facility] [place] [address] PCP - General Internal Medicine 07/05/15 Raquel Herrera MD [address] [facility] [place] [address] Endocrinology 10/19/15 Jonas Etienne [address] [place] [address] Physician Ophthalmology 03/21/20 Agronomy Specialist Relationship Specialty Start Date End Date Alcira Anderson MD [address] [facility] [place] [address] PCP - General Internal Medicine 07/05/15 Raquel Herrera MD [address] [facility] [place] [address] Endocrinology 10/19/15 Jonas Etienne [address] [place] [address] Physician Ophthalmology 03/21/20 Agronomy Specialist Relationship Specialty Start Date End Date Alcira Anderson MD [address] [facility] [place] [address] PCP - General Internal Medicine 07/05/15 Raquel Herrera MD [address] [facility] [place] [address] Endocrinology 10/19/15 Jonas Etienne [facility] [place] [address] Physician Ophthalmology 03/21/20 Agronomy Specialist Relationship Specialty Start Date End Date Alcira Anderson MD [address] [facility] [place] [address] PCP - General Internal Medicine 07/05/15 Raquel Herrera MD [address] [facility] [place] [address] Endocrinology 10/19/15 Jonas Etienne [address] [place] [address] Physician Ophthalmology 03/21/20 Agronomy Specialist Relationship Specialty Start Date End Date Alcira Anderson MD [address] [facility] [place] [address] PCP - General Internal Medicine 05/16/19 Agronomy Specialist Relationship Specialty Start Date End Date Alcira Anderson MD [address] [facility] [place] [address] PCP - General Internal Medicine 07/05/15 Raquel Herrera MD [address] [facility] [place] [address] Endocrinology 10/19/15 Jonas tEienne [address] [place] [address] Physician Ophthalmology 03/21/20 Agronomy Specialist Relationship Specialty Start Date End Date Alcira Anderson MD [address] [facility] [place] [address] PCP - General Internal Medicine 07/05/15 Raquel Herrera MD [address] [facility] [place] [address] Endocrinology 10/19/15 Jonas Etienne [address] [place] [address] Physician Ophthalmology 03/21/20 Agronomy Specialist Relationship Specialty Start Date End Date Alcira Anderson MD [address] [facility] [place] [address] PCP - General Internal Medicine 07/05/15 Raquel Herrera MD [address] [facility] [place] [address] Endocrinology 10/19/15 Jonas Etienne [address] [place] [address] Physician Ophthalmology 03/21/20 Agronomy Specialist Relationship Specialty Start Date End Date Alcira Anderson MD [address] [facility] [place] [address] PCP - General Internal Medicine 07/05/15 Raquel Herrera MD [address] [place] [address] Endocrinology 10/19/15 Jonas Etienne [address] [place], [place] [address] Physician Ophthalmology 03/21/20 Team Status: Active Member Role Status Dates Dr. Alcira Anderson MD Family Provider Active Dr. Alcira Anderson MD Primary Care Provider Active Team Status: Inactive Member Role Status Dates Dr. Alcira Anderson MD Primary Care Provider, Referring Provider Active Dr. Leon Seaman MD Active Christi Bush PA, PA Attending Provider Active Team Status: Inactive Member Role Status Dates Dr. Alcira Anderson MD Primary Care Provider, Referring Provider Active Dr. Yann Garcia DO Attending Provider Active Team Status: Active Member Role Status Dates Dr. Alcira Anderson MD Primary Care Provider Active Dr. Yann Garcia DO Attending Provider, Referring Provider, Other Provider Active Team Status: Inactive Member Role Status Dates Dr. Alcira Anderson MD Primary Care Provider Active Dr. Yann Garcia DO Attending Provider, Referring Pro vider Active Agronomy Specialist Relationship Specialty Start Date End Date Alcira Anderson MD [address] [place], [place] [address] PCP - General Internal Medicine 05/16/19 Agronomy Specialist Relationship Specialty Start Date End Date Alcira Anderson MD [address] [place], [place] [address] PCP - General Internal Medicine 07/05/15 Raquel Herrera MD [address] [place] [address] Endocrinology 10/19/15 Jonas Etienne [address] [place], [place] [address] Physician Ophthalmology 03/21/20 Agronomy Specialist Relationship Specialty Start Date End Date Alcira Anderson MD [address] [place] [address] PCP - General Internal Medicine 07/05/15 Raquel Herrera MD [address] [place] [address] Endocrinology 10/19/15 Jonas Etienne [address] [place] [address] Physician Ophthalmology 03/21/20 Agronomy Specialist Relationship Specialty Start Date End Date Alcira Anderson MD [address] [place] [address] PCP - General Internal Medicine 07/05/15 Raquel Herrera MD [address] [place] [address] Endocrinology 10/19/15 Jonas Etienne [address] [place] [address] Physician Ophthalmology 03/21/20 Agronomy Specialist Relationship Specialty Start Date End Date Alcira Anderson MD [address] [place] [address] PCP - General Internal Medicine 07/05/15 Raquel Herrera MD [address] [place] [address] Endocrinology 10/19/15 Jonas Etienne [address] [place] [address] Physician Ophthalmology 03/21/20 Agronomy Specialist Relationship Specialty Start Date End Date Alcira Anderson MD [address] [place], [place] [address] PCP - General Internal Medicine 05/16/19 Agronomy Specialist Relationship Specialty Start Date End Date Alcira Anderson MD [address] [place], [place] [address] PCP - General Internal Medicine 05/16/19 Agronomy Specialist Relationship Specialty Start Date End Date Alcira Anderson MD [address] [place], [place] [address] PCP - General Internal Medicine 07/05/15 Raquel Herrera MD [address] [place] [address] Endocrinology 10/19/15 Jonas Etienne [address] [place] [address] Physician Ophthalmology 03/21/20 Agronomy Specialist Relationship Specialty Start Date End Date Alcira Anderson MD [address] [place], [place] [address] PCP - General Internal Medicine 05/16/19 Agronomy Specialist Relationship Specialty Start Date End Date Alcira Anderson MD [address] [place], [place] [address] PCP - General Internal Medicine 05/16/19 Team Status: Inactive Member Role Status Dates Dr. Alcira Anderson MD Primary Care Provider, Referring Provider Active Dr. George Palm MD Attending Provider Active Team Status: Inactive Member Role Status Dates Dr. Alcira Anderson MD Primary Care Provider Active Flori Keller , WHEELAGE CLERK-C Attending Provider, Referring Pr lelia Active Agronomy Specialist Relationship Specialty Start Date End Date Alcira Anderson MD [address] [facility] [place] [address] PCP - General Internal Medicine 07/05/15 Raquel Herrera MD [address] [facility] [place] [address] Endocrinology 10/19/15 Jonas Etienne MD [address] [place] [address] Physician Ophthalmology 03/21/20 Agronomy Specialist Relationship Specialty Start Date End Date Alcira Anderson MD [address] [facility] [place] [address] PCP - General Internal Medicine 07/05/15 Raquel Herrera MD [address] [facility] [place] [address] Endocrinology 10/19/15 Jonas Etienne MD [address] [place], [place] [address] Physician Ophthalmology 03/21/20 Agronomy Specialist Relationship Specialty Start Date End Date Alcira Anderson MD [address] [facility] [place] [address] PCP - General Internal Medicine 07/05/15 Raquel Herrera MD [address] [facility] [place] [address] Endocrinology 10/19/15 Jonas Etienne MD [address] [place] [address] Physician Ophthalmology 03/21/20 Agronomy Specialist Relationship Specialty Start Date End Date Alcira Anderson MD [address] [place] [address] PCP - General Internal Medicine 07/05/15 Raquel Herrera MD [address] [place] [address] Endocrinology 10/19/15 Jonas Etienne MD [address] [place] [address] Physician Ophthalmology 03/21/20 Agronomy Specialist Relationship Specialty Start Date End Date Alcira Anderson MD [address] [place] [address] PCP - General Internal Medicine 07/05/15 Raquel Herrera MD [address] [place] [address] Endocrinology 10/19/15 Jonas Etienne MD [address] [place] [address] Physician Ophthalmology 03/21/20 Agronomy Specialist Relationship Specialty Start Date End Date Alcira Anderson MD [address] [place] [address] PCP - General Internal Medicine 07/05/15 Raquel Herrera MD [address] [place] [address] Endocrinology 10/19/15 Jonas Etienne MD [address] [place] [address] Physician Ophthalmology 03/21/20 Team Status: Inactive Member Role Status Dates Dr. Alcira Anderson MD Primary Care Provider, Referring Provider Active Dr. Karl Dyer DO Attending Provider Active Team Status: Active Member Role Status Dates Dr. Alcira Anderson MD Primary Care Provider, Referring Provider Active Dr. Karl Dyer DO Attending Provider, Other Prov ider Active Team Status: Inactive Member Role Status Dates Dr. Alcira Anderson MD Primary Care Provider Active HERNESTO HARVEY , WHEELAGE CLERK-C Attending Provider, Referring Provide r Active Dr. Cheyanne Messer MD Other Provider Active Agronomy Specialist Relationship Specialty Start Date End Date Alcira Anderson MD [address] [place] [address] PCP - General Internal Medicine 07/05/15 Raquel Herrera MD [address] [place] [address] Endocrinology 10/19/15 Jonas Etienne MD [address] [place], [place] [address] Physician Ophthalmology 03/21/20 Team Status: Inactive Member Role Status Dates Dr. Alcira Anderson MD Primary Care Provider Active Dr. Gabriel Abernathy DO Referring Provider, Emergency P rovider Active Agronomy Specialist Relationship Specialty Start Date End Date Alcira Anderson MD [address] [facility] [place] [address] PCP - General Internal Medicine 07/05/15 Raquel Herrera MD [address] [facility] [place] [address] Endocrinology 10/19/15 Jonas Etienne MD [address] [facility], [place] [address] Physician Ophthalmology 03/21/20 Agronomy Specialist Relationship Specialty Start Date End Date Alcira Anderson MD [address] [facility] [place] [address] PCP - General Internal Medicine 07/05/15 Raquel Herrera MD [address] [facility] [place] [address] Endocrinology 10/19/15 Jonas Etienne MD [address] [place] [address] Physician Ophthalmology 03/21/20 Agronomy Specialist Relationship Specialty Start Date End Date Alcira Anderson MD [address] [facility] [place] [address] PCP - General Internal Medicine 07/05/15 Raquel Herrera MD [address] [place] [address] Endocrinology 10/19/15 Jonas Etienne MD [address] [place] [address] Physician Ophthalmology 03/21/20 Agronomy Specialist Relationship Specialty Start Date End Date Alcira Anderson MD [address] [facility] [place] [address] PCP - General Internal Medicine 07/05/15 Raquel Herrera MD [address] [facility] [place] [address] Endocrinology 10/19/15 Jonas Etienne MD [address] [place] [address] Physician Ophthalmology 03/21/20 Agronomy Specialist Relationship Specialty Start Date End Date Alcira Anderson MD [address] [facility] [place] [address] PCP - General Internal Medicine 07/05/15 Raquel Herrera MD [address] [place] [address] Endocrinology 10/19/15 Jonas Etienne MD [address] [place] [address] Physician Ophthalmology 03/21/20 Agronomy Specialist Relationship Specialty Start Date End Date Alcira Anderson MD [address] [facility] [place] [address] PCP - General Internal Medicine 07/05/15 Raquel Herrera MD [address] [facility] [place] [address] Endocrinology 10/19/15 Jonas Etienne MD [address] [place] [address] Physician Ophthalmology 03/21/20 Agronomy Specialist Relationship Specialty Start Date End Date Alcira Anderson MD [address] [facility] [place] [address] PCP - General Internal Medicine 07/05/15 Raquel Herrera MD [address] [facility] [place] [address] Endocrinology 10/19/15 Jonas Etienne MD [address] [place] [address] Physician Ophthalmology 03/21/20 Agronomy Specialist Relationship Specialty Start Date End Date Alcira Anderson MD [address] [place] [address] PCP - General Internal Medicine 05/16/19 Agronomy Specialist Relationship Specialty Start Date End Date Alcira Anderson MD [address] [place] [address] PCP - General Internal Medicine 07/05/15 Raquel Herrera MD [address] [place] [address] Endocrinology 10/19/15 Jonas Etienne MD [address] [place] [address] Physician Ophthalmology 03/21/20 Agronomy Specialist Relationship Specialty Start Date End Date Alcira Anderson MD [address] [place] [address] PCP - General Internal Medicine 05/16/19 Agronomy Specialist Relationship Specialty Start Date End Date Alcira Anderson MD [address] [facility] [place] [address] PCP - General Internal Medicine 07/05/15 Raquel Herrera MD [address] [place] [address] Endocrinology 10/19/15 Jonas Etienne MD [address] [place] [address] Physician Ophthalmology 03/21/20 Agronomy Specialist Relationship Specialty Start Date End Date Alcira Anderson MD [address] [facility] [place] [address] PCP - General Internal Medicine 07/05/15 Raquel Herrera MD [address] [place] [address] Endocrinology 10/19/15 Jonas Etienne MD [address] [place] [address] Physician Ophthalmology 03/21/20 Agronomy Specialist Relationship Specialty Start Date End Date Alcira Anderson MD [address] [place] [address] PCP - General Internal Medicine 07/05/15 Raquel Herrera MD [address] [facility] [place] [address] Endocrinology 10/19/15 Jonas Etienne MD [address] [place], [place] [address] Physician Ophthalmology 03/21/20 Agronomy Specialist Relationship Specialty Start Date End Date Alcira Anderson MD [address] [place] [address] PCP - General Internal Medicine 07/05/15 Raquel Herrera MD [address] [facility] [place] [address] Endocrinology 10/19/15 Jonas Etienne MD [address] [place] [address] Physician Ophthalmology 03/21/20 Agronomy Specialist Relationship Specialty Start Date End Date Alcira Anderson MD [address] [facility] [place] [address] PCP - General Internal Medicine 07/05/15 Raquel Herrera MD [address] [facility] [place] [address] Endocrinology 10/19/15 Jonas Etienne MD [address] [place] [address] Physician Ophthalmology 03/21/20 Agronomy Specialist Relationship Specialty Start Date End Date Alcira Anderson MD [address] [facility] [place] [address] PCP - General Internal Medicine 07/05/15 Raquel Herrera MD [address] [facility] [place] [address] Endocrinology 10/19/15 Jonas Etienne MD [address] [place] [address] Physician Ophthalmology 03/21/20 Agronomy Specialist Relationship Specialty Start Date End Date Alcira Anderson MD [address] [place] [address] PCP - General Internal Medicine 07/05/15 Raquel Herrera MD [address] [place] [address] Endocrinology 10/19/15 Jonas Etienne MD [address] [place] [address] Physician Ophthalmology 03/21/20 Agronomy Specialist Relationship Specialty Start Date End Date Alcira Anderson MD [address] [place] [address] PCP - General Internal Medicine 07/05/15 Raquel Herrera MD [address] [place] [address] Endocrinology 10/19/15 Jonas Etienne MD [address] [facility] [place] [address] Physician Ophthalmology 03/21/20 Agronomy Specialist Relationship Specialty Start Date End Date Alcira Anderson MD [address] [place] [address] PCP - General Internal Medicine 07/05/15 Raquel Herrera MD [address] [place] [address] Endocrinology 10/19/15 Jonas Etienne MD [address] [place] [address] Physician Ophthalmology 03/21/20 Agronomy Specialist Relationship Specialty Start Date End Date Alcira Anderson MD [address] [place] [address] PCP - General Internal Medicine 07/05/15 Raquel Herrera MD [address] [place] [address] Endocrinology 10/19/15 Jonas Etienne MD [address] [place] [address] Physician Ophthalmology 03/21/20 Agronomy Specialist Relationship Specialty Start Date End Date Alcira Anderson MD [address] [place] [address] PCP - General Internal Medicine 07/05/15 Raquel Herrera MD [address] [place] [address] Endocrinology 10/19/15 Jonas Etienne MD [address] [facility] [place] [place] [address] Physician Ophthalmology 03/21/20 Agronomy Specialist Relationship Specialty Start Date End Date Alcira Anderson MD [address] [place] [address] PCP - General Internal Medicine 07/05/15 Raquel Herrera MD [address] [place] [address] Endocrinology 10/19/15 Jonas Etienne MD [address] [facility] [place] [place] [address] Physician Ophthalmology 03/21/20 Agronomy Specialist Relationship Specialty Start Date End Date Alcira Anderson MD [address] [place] [address] PCP - General Internal Medicine 07/05/15 Raquel Herrera MD [address] [place] [address] Endocrinology 10/19/15 Jonas Etienne MD [address] [place] [address] Physician Ophthalmology 03/21/20 Agronomy Specialist Relationship Specialty Start Date End Date Alcira Anderson MD [address] [place] [address] PCP - General Internal Medicine 07/05/15 Raquel Herrera MD [address] [place] [address] Endocrinology 10/19/15 Jonas Etienne MD [address] [place] [address] Physician Ophthalmology 03/21/20 Agronomy Specialist Relationship Specialty Start Date End Date Alcira Anderson MD [address] [place] [address] PCP - General Internal Medicine 07/05/15 Raquel Herrera MD [address] [place] [address] Endocrinology 10/19/15 Jonas Etienne MD [address] [place] [address] Physician Ophthalmology 03/21/20 Agronomy Specialist Relationship Specialty Start Date End Date Alcira Anderson MD [address] [place] [address] PCP - General Internal Medicine 07/05/15 Raquel Herrera MD [address] [place] [address] Endocrinology 10/19/15 Jonas Etienne MD [address] [place] [address] Physician Ophthalmology 03/21/20 Agronomy Specialist Relationship Specialty Start Date End Date Alcira Anderson MD [address] [place] [address] PCP - General Internal Medicine 07/05/15 Raquel Herrera MD [address] [place] [address] Endocrinology 10/19/15 Jonas Etienne MD [address] [place] [address] Physician Ophthalmology 03/21/20 Agronomy Specialist Relationship Specialty Start Date End Date Alcira Anderson MD [address] [place] [address] PCP - General Internal Medicine 07/05/15 Raquel Herrera MD [address] [place], [place] [address]01 Endocrinology 10/19/15 Jonas Etienne MD [address] [place] [address] Physician Ophthalmology 03/21/20 Agronomy Specialist Relationship Specialty Start Date End Date Alcira Anderson MD [address] [facility] [place] [address] PCP - General Internal Medicine 07/05/15 Raquel Herrera MD [address] [place] [address] Endocrinology 10/19/15 Jonas Etienne MD [address] [place] [address] Physician Ophthalmology 03/21/20 Agronomy Specialist Relationship Specialty Start Date End Date Alcira Anderson MD [address] [place] [address] PCP - General Internal Medicine 07/05/15 Raquel Herrera MD [address] [place] [address] Endocrinology 10/19/15 Jonas Etienne MD [address] [place] [address] Physician Ophthalmology 03/21/20 Agronomy Specialist Relationship Specialty Start Date End Date Alcira Anderson MD [address] [place] [address] PCP - General Internal Medicine 07/05/15 Raquel Herrera MD [address] [place] [address] Endocrinology 10/19/15 Jonas Etienne MD [address] [place] [address] Physician Ophthalmology 03/21/20 Agronomy Specialist Relationship Specialty Start Date End Date Alcira Anderson MD [address] [facility] [place] [address] PCP - General Internal Medicine 07/05/15 Raquel Herrera MD [address] [place] [address] Endocrinology 10/19/15 Jonas Etienne MD [address] [place] [address] Physician Ophthalmology 03/21/20 Agronomy Specialist Relationship Specialty Start Date End Date Alcira Anderson MD [address] [place] [address] PCP - General Internal Medicine 07/05/15 Raquel Herrera MD [address] [facility] [place] [address] Endocrinology 10/19/15 Jonas Etienne MD [address] [place], [place] 6[address]161 Physician Ophthalmology 03/21/20 Agronomy Specialist Relationship Specialty Start Date End Date Alcira Anderson MD [address] [place] [address] PCP - General Internal Medicine 07/05/15 Raquel Herrera MD [address] [facility] [place] [address] Endocrinology 10/19/15 Jonas Etienne MD [address] [place] [address] Physician Ophthalmology 03/21/20 Agronomy Specialist Relationship Specialty Start Date End Date Alcira Anderson MD [address] [facility] [place] [address] PCP - General Internal Medicine 07/05/15 Raquel Herrera MD [address] [facility] [place] [address] Endocrinology 10/19/15 Jonas Etienne MD [address] [place] [address] Physician Ophthalmology 03/21/20 Agronomy Specialist Relationship Specialty Start Date End Date Alcira Anderson MD [address] [facility] [place] [address] PCP - General Internal Medicine 07/05/15 Raquel Herrera MD [address] [facility] [place] [address] Endocrinology 10/19/15 Jonas Etienne MD [address] [place] [address] Physician Ophthalmology 03/21/20 Agronomy Specialist Relationship Specialty Start Date End Date Alcira Anderson MD [address] [place] [address] PCP - General Internal Medicine 07/05/15 Raquel Herrera MD [address] [facility] [place] [address] Endocrinology 10/19/15 Jonas Etienne MD [address] [place] [address] Physician Ophthalmology 03/21/20 Agronomy Specialist Relationship Specialty Start Date End Date Alcira Anderson MD [address] [place] [address] PCP - General Internal Medicine 07/05/15 Raquel Herrera MD [address] [place] [address] Endocrinology 10/19/15 Jonas Etienne MD [address] [place], [place] 363041 Physician Ophthalmology 03/21/20 Brittney Mercado PA-C [address] [place] [address] Event Planning Manager Family Medicine 03/27/24 Hernesto Harvey APRN.CNP [address] [place] [address] Event Planning Manager Internal Medicine 03/27/24 Zoila Almendarez PA-C [address] [place] [address] Event Planning Manager Family Medicine 03/27/24 Agronomy Specialist Relationship Specialty Start Date End Date Alcira Anderson MD [address] [facility] [place] [address] PCP - General Internal Medicine 07/05/15 Raquel Herrera MD [address] [place] [address] Endocrinology 10/19/15 Jonas Etienne MD [address] [place], [place] 671711 Physician Ophthalmology 03/21/20 Brittney Mercado PA-C [address] [place] [address] Event Planning Manager Family Medicine 03/27/24 Hernesto Harvey APRN.CNP [address] [place] [address] Event Planning Manager Internal Medicine 03/27/24 Zoila Almendarez PA-C [address] [place] [address] Event Planning Manager Family Medicine 03/27/24 Agronomy Specialist Relationship Specialty Start Date End Date Alcira Anderson MD [address] [place] [address] PCP - General Internal Medicine 07/05/15 Raquel Herrera MD [address] [place] [address] Endocrinology 10/19/15 Jonas Etienne MD [address] [place], [place] 757081 Physician Ophthalmology 03/21/20 Brittney Mercado PA-C [address] [place], [place] 9869761 [phone] Event Planning Manager Family Medicine 03/27/24 Hernesto Harvey APRN.[employer] AND SOIL TECHNICIAN [address] [place], [place] 202571 Event Planning Manager Internal Medicine 03/27/24 Zoila Almendarez PA-C [address] [place] [address] [facility] 03/27/24 Agronomy Specialist Relationship Specialty Start Date End Date Alcira Anderson MD [address] [place] [address] PCP - General Internal Medicine 07/05/15 Raquel Herrera MD [address] [place] [address] Endocrinology 10/19/15 Jonas Etienne MD [address] [place] [address] Physician Ophthalmology 03/21/20 Brittney Mercado PA-C [address] [place] [address] Event Planning Manager Family Medicine 03/27/24 Hernesto Harvey APRN.CROP AND SOIL TECHNICIAN [address] [place] [address] Event Planning Manager Internal Medicine 03/27/24 Zoila Almendarez PA-C [address] [place] [address] Event Planning Manager Family [facility] 03/27/24 Agronomy Specialist Relationship Specialty Start Date End Date Alcira Anderson MD [address] [place] [address] PCP - General Internal Medicine 07/05/15 Raquel Herrera MD [address] [place] [address] Endocrinology 10/19/15 Jonas Etienne MD [address] [place] [address] Physician Ophthalmology 03/21/20 Brittney Mercado PA-C [address] [place] [address] Event Planning Manager Family Medicine 03/27/24 Hernesto Harvey APRN.CNP [address] [place] [address] Event Planning Manager Internal Medicine 03/27/24 Zoila Almendarez PA-C [address] [place] [address] Event Planning Manager Family [facility] 03/27/24 Agronomy Specialist Relationship Specialty Start Date End Date Alcira Anderson MD [address] [place], [place] 583361 PCP - General Internal Medicine 07/05/15 Raquel Herrera MD [address] [place] [address] Endocrinology 10/19/15 Jonas Etienne MD [address] [place], [place] 490751 Physician Ophthalmology 03/21/20 Brittney Mercado PA-C [address] [place], [place] 9710101 [phone] Event Planning Manager Family Medicine 03/27/24 Hernesto Harvey APRN.CROP AND SOIL TECHNICIAN [address] [place] [address] Event Planning Manager Internal Medicine 03/27/24 Zoila Almendarez PA-C [address] [place] [address] [facility] 03/27/24 Agronomy Specialist Relationship Specialty Start Date End Date Alcira Anderson MD [address] [place] [address] PCP - General Internal Medicine 07/05/15 Raquel Herrera MD [address] [place] [address] Endocrinology 10/19/15 Jonas Etienne MD [facility] [place] [address] Physician Ophthalmology 03/21/20 Brittney Mercado PA-C [address] [place] [address] Event Planning Manager Family Medicine 03/27/24 Hernesto Harvey APRN.CROP AND SOIL TECHNICIAN [address] [place] [address] Event Planning Manager Internal Medicine 03/27/24 Zoila Almendarez PA-C [address] [place] [address] Event Planning Manager Family [facility] 03/27/24 Agronomy Specialist Relationship Specialty Start Date End Date Alcira Anderson MD [address] [place] [address] PCP - General Internal Medicine 07/05/15 Raquel Herrera MD [address] [place] [address] Endocrinology 10/19/15 Jonas Etienne MD [facility] [place] [address] Physician Ophthalmology 03/21/20 Brittney Mercado PA-C [address] [place] [address] Event Planning Manager Family Medicine 03/27/24 Hernesto Harvey APRN.CNP [address] [place] [address] Event Planning Manager Internal Medicine 03/27/24 Zoila Almendarez PA-C [address] [place] [address] Event Planning Manager Family Medicine 03/27/24 Agronomy Specialist Relationship Specialty Start Date End Date Alcira Anderson MD [address] [place] [address] PCP - General Internal Medicine 07/05/15 Raquel Herrera MD [address] [place] [address] Endocrinology 10/19/15 Jonas Etienne MD [address] [place] [address] Physician Ophthalmology 03/21/20 Brittney Mercado PA-C [address] [place] [address] Event Planning Manager Family Medicine 03/27/24 Hernesto Harvey APRN.CNP [address] [place] [address] Event Planning Manager Internal Medicine 03/27/24 Zoila Almendarez PA-C [address] [place] [address] Event Planning Manager Family Medicine 03/27/24 Agronomy Specialist Relationship Specialty Start Date End Date Alcira Anderson MD [address] [place] [address] PCP - General Internal Medicine 07/05/15 Raquel Herrera MD [address] [place] [address] Endocrinology 10/19/15 Jonas Etienne MD [address] [place] [address] Physician Ophthalmology 03/21/20 Brittney Mercado PA-C [address] [place] [address] Event Planning Manager Family Medicine 03/27/24 Hernesto Harvey APRN.CROP AND SOIL TECHNICIAN [address] [place] [address] Event Planning Manager Internal Medicine 03/27/24 Zoila Almendarez PA-C [address] [place] [address] Event Planning Manager Family Medicine 03/27/24 Agronomy Specialist Relationship Specialty Start Date End Date Alcira Anderson MD [address] [place] [address] PCP - General Internal Medicine 07/05/15 Raquel Herrera MD [address] [place] [address] Endocrinology 10/19/15 Jonas Etienne MD [address] [place] [address] Physician Ophthalmology 03/21/20 Brittney Mercado PA-C [address] [place] [address] Event Planning Manager Family Medicine 03/27/24 Hernesto Harvey APRN.CROP AND SOIL TECHNICIAN [address] [place] [address] Event Planning Manager Internal Medicine 03/27/24 Zoila Almendarez PA-C [address] [place] [address] Event Planning Manager Family Medicine 03/27/24 Agronomy Specialist Relationship Specialty Start Date End Date Alcira Anderson MD [address] [place] [address] PCP - General Internal Medicine 07/05/15 Raquel Herrera MD [address] [place] [address] Endocrinology 10/19/15 Jonas Etienne MD [address] [place] [address] Physician Ophthalmology 03/21/20 Brittney Mercado PA-C [address] [place] [address] [facility] 03/27/24 Hernesto Harvey APRN.CROP AND SOIL TECHNICIAN [address] [place] [address] Event Planning Manager Internal Medicine 03/27/24 Zoila Almendarez PA-C [address] [place] [address] [facility] 03/27/24 Agronomy Specialist Relationship Specialty Start Date End Date Alcira Anderson MD [address] [place] [address] PCP - General Internal Medicine 05/16/19 Omayra Herndon CNP [address] [address] Nurse Practitioner Pulmonary Disease 07/21/24 Agronomy Specialist Relationship Specialty Start Date End Date Alcira Anderson MD [address] [place] [address] PCP - General Internal Medicine 07/05/15 Raquel Herrera MD [address] [place] [address] Endocrinology 10/19/15 Jonas Etienne MD [address] [place] [address] Physician Ophthalmology 03/21/20 Hernesto Harvey APRN.CROP AND SOIL TECHNICIAN [address] [facility] [place] [address] Event Planning Manager Internal Medicine 03/27/24 Agronomy Specialist Relationship Specialty Start Date End Date Alcira Anderson MD [address] [place] [address] PCP - General Internal Medicine 07/05/15 Raquel Herrera MD [address]40 [facility] [place] [address] Endocrinology 10/19/15 Jonas Etienne MD [address] [place] [address] Physician Ophthalmology 03/21/20 Hernesto Harvey APRN.CROP AND SOIL TECHNICIAN [address] [place] [address] Event Planning Manager Internal Medicine 03/27/24 Agronomy Specialist Relationship Specialty Start Date End Date Alcira Anderson MD [address] [place] [address] PCP - General Internal Medicine 07/05/15 Raquel Herrera MD [address] [facility] [place] [address] Endocrinology 10/19/15 Jonas Etienne MD [address] [facility] [place], [place] [address] Physician Ophthalmology 03/21/20 Hernesto Harvey APRN.CROP AND SOIL TECHNICIAN [address] [place] [address] Event Planning Manager Internal Medicine 03/27/24 Agronomy Specialist Relationship Specialty Start Date End Date Alcira Anderson MD [address] [facility] [place] [address] PCP - General Internal Medicine 07/05/15 Raquel Herrera MD [address] [facility] [place] [address] Endocrinology 10/19/15 Jonas Etienne MD [address] [facility] [place] [address] Physician Ophthalmology 03/21/20 Hernesto Harvey APRN.CROP AND SOIL TECHNICIAN [address] [place] [address] Event Planning Manager Internal Medicine 03/27/24 Agronomy Specialist Relationship Specialty Start Date End Date Alcira Anderson MD [address] [place] [address] PCP - General Internal Medicine 07/05/15 Raquel Herrera MD [address] [facility] [place] [address] Endocrinology 10/19/15 Jonas Etienne MD [address] [facility] [place] [address] Physician Ophthalmology 03/21/20 Hernesto Harvey APRN.CROP AND SOIL TECHNICIAN [address] [address] Event Planning Manager Internal Medicine 03/27/24 Team Status: Active Member Role Status Dates Dr. Alcira Anderson MD Primary Care Provider Active Team Status: Inactive Member Role Status Dates Dr. Alcira Anderson MD Primary Care Provider Active Start: May 17, 2024 End: May 17, 2024 Dr. Alcira Anderson MD Referring Provider Active Start: May 17, 2024 End: May 17, 2024 Christi VAUGHN, PA Attending Provider Active Start: May 17, 2024 End: May 17, 2024 Team Status: Inactive Member Role Status Dates Dr. Alcira Anderson MD Primary Care Provider Active Start: June 06, 2024 End: June 06, 2024 Dr. Albert Umaña MD Attending Provider Active Start: June 06, 2024 End: June 06, 2024 Dr. Albert Umaña MD Referring Provider Active Start: June 06, 2024 End: June 06, 2024 Team Status: Inactive Member Role Status Dates Dr. Alcira Anderson MD Primary Care Provider Active Start: August 30, 2024 End: August 30, 2024 Dr. Alcira Anderson MD Referring Provider Active Start: August 30, 2024 End: August 30, 2024 Dr. Karl Dyer DO Attending Provider Active Start: August 30, 2024 End: August 30, 2024 Agronomy Specialist Relationship Specialty Start Date End Date Alcira Anderson MD [address] [facility] [place] [address] PCP - General Internal Medicine 07/05/15 Raquel Herrera MD [address] [place] [address] Endocrinology 10/19/15 Jonas Etienne MD [address] [place], [place] [address] Physician Ophthalmology 03/21/20 Hernesto Harvey APRN.CROP AND SOIL TECHNICIAN [address] [place] [address] Event Planning Manager Internal Medicine 03/27/24 Agronomy Specialist Relationship Specialty Start Date End Date Alcira Anderson MD [address] [place] [address] PCP - General Internal Medicine 05/16/19 Omayra Herndon CNP [address] [address] Nurse Practitioner Pulmonary Disease 07/21/24 Agronomy Specialist Relationship Specialty Start Date End Date Alcira Anderson MD [address] [place] [address] PCP - General Internal Medicine 05/16/19 Omayra Herndon CNP [address] [address] Nurse Practitioner Pulmonary Disease 07/21/24 Agronomy Specialist Relationship Specialty Start Date End Date Alcira Anderson MD [address] [place] [address] PCP - General Internal Medicine 05/16/19 Omayra Herndon CNP [address] [address] Nurse Practitioner Pulmonary Disease 07/21/24 Agronomy Specialist Relationship Specialty Start Date End Date Alcira Anderson MD [address]40 [facility] [place] [address] PCP - General Internal Medicine 05/16/19 Omayra Herndon CNP [address] [place] [address] Nurse Practitioner Pulmonary Disease 07/21/24 Agronomy Specialist Relationship Specialty Start Date End Date Alcira Anderson MD [address] [place] [address] PCP - General Internal Medicine 07/05/15 Raquel Herrera MD [address] [place] [address] Endocrinology 10/19/15 Jonas Etienne MD [address] [place] [address] Physician Ophthalmology 03/21/20 Hernesto Harvey APRN.CROP AND SOIL TECHNICIAN [address] [place] [address] Event Planning Manager Internal Medicine 03/27/24 Agronomy Specialist Relationship Specialty Start Date End Date Alcira Anderson MD [address] [place] [address] PCP - General Internal Medicine 07/05/15 Raquel Herrera MD [address] [place], [place] 28[address]41 Endocrinology 10/19/15 Jonas Etienne MD [address] [place] [address] Physician Ophthalmology 03/21/20 Hernesto Harvey APRN.CROP AND SOIL TECHNICIAN [address] [place] [address] Event Planning Manager Internal Medicine 03/27/24 Agronomy Specialist Relationship Specialty Start Date End Date Alcira Anderson MD [address] [place] [address] PCP - General Internal Medicine 07/05/15 Raqule Herrera MD [address] [facility] [place] [address] Endocrinology 10/19/15 Jonas Etienne MD [address] [facility] [place] [address] Physician Ophthalmology 03/21/20 Hernesto Harvey APRN.CROP AND SOIL TECHNICIAN 1740 [facility] [place] [address] Event Planning Manager Internal Medicine 03/27/24 Agronomy Specialist Relationship Specialty Start Date End Date Alcira Anderson MD [address] [place] [address] PCP - General Internal Medicine 07/05/15 Raquel Herrera MD [address] [place] [address] Endocrinology 10/19/15 Jonas Etienne MD [address] [facility] [place] [address] Physician Ophthalmology 03/21/20 Hernesto Harvey APRN.CROP AND SOIL TECHNICIAN [address] [place] [address] Event Planning Manager Internal Medicine 03/27/24 Agronomy Specialist Relationship Specialty Start Date End Date Alcira Anderson MD [address] [place] [address] PCP - General Internal Medicine 07/05/15 Raquel Herrera MD [address] [place] [address] Endocrinology 10/19/15 Jonas Etienne MD [address] [place] [address] Physician Ophthalmology 03/21/20 Hernesto Harvey APRN.CROP AND SOIL TECHNICIAN [address] [facility] [place] [address] Event Planning Manager Internal Medicine 03/27/24 Agronomy Specialist Relationship Specialty Start Date End Date Alcira Anderson MD [address] [place] [address] PCP - General Internal Medicine 07/05/15 Raquel Herrera MD [address] [place] [address] Endocrinology 10/19/15 Jonas Etienne MD [address] [place] KS [address] Physician Ophthalmology 03/21/20 Hernesto Harvey APRN.CROP AND SOIL TECHNICIAN [address] [facility] [place] [address] Event Planning Manager Internal Medicine 03/27/24 Agronomy Specialist Relationship Specialty Start Date End Date Alcira Anderson MD [address] [facility] [place] [address] PCP - General Internal Medicine 07/05/15 Raquel Herrera MD [address] [facility] [place] [address] Endocrinology 10/19/15 Jonas Etienne MD [address] [facility], [place] 9940[address] Physician Ophthalmology 03/21/20 Hernesto Harvey APRN.[facility] [address]40 [place] [address] Event Planning Manager Internal Medicine 03/27/24 Team Status: Active Member Role/Relationship Status Dates Dr. Alcira Anderson MD Primary care physician Active Team Status: Inactive Member Role/Relationship Status Dates Dr. Alcira Anderson MD Primary care physician Active Start: January 10, 2025 End: January 10, 2025 Dr. Alcira Anderson MD Referring Provider Active Start: January 10, 2025 End: January 10, 2025 Dr. Leon Seaman MD Attending physician Active Start: January 10, 2025 End: January 10, 2025 Team Status: Active Member Role/Relationship Status Dates Dr. Alcira Anderson MD Primary care physician Active Start: January 17, 2025 Dr. Karl Dyer DO Attending physician Active Start: January 17, 2025 Dr. Karl Dyer DO Referring Provider Active Start: January 17, 2025 Team Status: Inactive Member Role/Relationship Status Dates Dr. Alcira Anderson MD Primary care physician Active Start: January 17, 2025 End: January 17, 2025 Dr. Karl Dyer DO Attending physician Active Start: January 17, 2025 End: January 17, 2025 Dr. Karl Dyer DO Referring Provider Active Start: January 17, 2025 End: January 17, 2025 Source Comments (unrecognize d section and content) In the event this informatio n is protected by the Federal Confidentiality of Alcohol and Drug Abuse Patient Records regulations: The Federal rules restrict any use of the information to criminally investigate or prosecute any alcohol or drug abuse patient.[facility] the event this information is protected by the Federal Confidentiality of Alcohol and Drug Abuse Patient Records regulations: The Federal rules restrict any use of the information to criminally investigate or prosecute any alcohol or drug abuse patient.[facility] HospitalIn the event this information is protected by the Federal Confidentiality of Alcohol and Drug Abuse Patient Records regulations: The Federal rules restrict any use of the information to criminally investigate or prosecute any alcohol or drug abuse patient.[facility] HospitalIn the event this information is protected by the Federal Confidentiality of Alcohol and Drug Abuse Patient Records regulations: The Federal rules restrict any use of the information to criminally investigate or prosecute any alcohol or drug abuse patient.[facility] HospitalIn the event this information is protected by the Federal Confidentiality of Alcohol and Drug Abuse Patient Records regulations: The Federal rules restrict any use of the information to criminally investigate or prosecute any alcohol or drug abuse patient.[facility] HospitalIn the event this information is protected by the Federal Confidentiality of Alcohol and Drug Abuse Patient Records regulations: The Federal rules restrict any use of the information to criminally investigate or prosecute any alcohol or drug abuse patient.[facility] HospitalIn the event this information is protected by the Federal Confidentiality of Alcohol and Drug Abuse Patient Records regulations: The Federal rules restrict any use of the information to criminally investigate or prosecute any alcohol or drug abuse patient.[facility] HospitalIn the event this information is protected by the Federal Confidentiality of Alcohol and Drug Abuse Patient Records regulations: The Federal rules restrict any use of the information to criminally investigate or prosecute any alcohol or drug abuse patient.[facility] HospitalIn the event this information is protected by the Federal Confidentiality of Alcohol and Drug Abuse Patient Records regulations: The Federal rules restrict any use of the information to criminally investigate or prosecute any alcohol or drug abuse patient.[facility] HospitalIn the event this information is protected by the Federal Confidentiality of Alcohol and Drug Abuse Patient Records regulations: The Federal rules restrict any use of the information to criminally investigate or prosecute any alcohol or drug abuse patient.[facility] HospitalIn the event this information is protected by the Federal Confidentiality of Alcohol and Drug Abuse Patient Records regulations: The Federal rules restrict any use of the information to criminally investigate or prosecute any alcohol or drug abuse patient.[facility] HospitalIn the event this information is protected by the Federal Confidentiality of Alcohol and Drug Abuse Patient Records regulations: The Federal rules restrict any use of the information to criminally investigate or prosecute any alcohol or drug abuse patient.[facility] HospitalIn the event this information is protected by the Federal Confidentiality of Alcohol and Drug Abuse Patient Records regulations: The Federal rules restrict any use of the information to criminally investigate or prosecute any alcohol or drug abuse patient.[facility] HospitalIn the event this information is protected by the Federal Confidentiality of Alcohol and Drug Abuse Patient Records regulations: The Federal rules restrict any use of the information to criminally investigate or prosecute any alcohol or drug abuse patient.[facility] HospitalIn the event this information is protected by the Federal Confidentiality of Alcohol and Drug Abuse Patient Records regulations: The Federal rules restrict any use of the information to criminally investigate or prosecute any alcohol or drug abuse patient.[facility] HospitalIn the event this information is protected by the Federal Confidentiality of Alcohol and Drug Abuse Patient Records regulations: The Federal rules restrict any use of the information to criminally investigate or prosecute any alcohol or drug abuse patient.[facility] HospitalIn the event this information is protected by the Federal Confidentiality of Alcohol and Drug Abuse Patient Records regulations: The Federal rules restrict any use of the information to criminally investigate or prosecute any alcohol or drug abuse patient.[facility] HospitalIn the event this information is protected by the Federal Confidentiality of Alcohol and Drug Abuse Patient Records regulations: The Federal rules restrict any use of the information to criminally investigate or prosecute any alcohol or drug abuse patient.[facility] HospitalIn the event this information is protected by the Federal Confidentiality of Alcohol and Drug Abuse Patient Records regulations: The Federal rules restrict any use of the information to criminally investigate or prosecute any alcohol or drug abuse patient.[facility] HospitalIn the event this information is protected by the Federal Confidentiality of Alcohol and Drug Abuse Patient Records regulations: The Federal rules restrict any use of the information to criminally investigate or prosecute any alcohol or drug abuse patient.[facility] HospitalIn the event this information is protected by the Federal Confidentiality of Alcohol and Drug Abuse Patient Records regulations: The Federal rules restrict any use of the information to criminally investigate or prosecute any alcohol or drug abuse patient.[facility] HospitalIn the event this information is protected by the Federal Confidentiality of Alcohol and Drug Abuse Patient Records regulations: The Federal rules restrict any use of the information to criminally investigate or prosecute any alcohol or drug abuse patient.[facility] HospitalIn the event this information is protected by the Federal Confidentiality of Alcohol and Drug Abuse Patient Records regulations: The Federal rules restrict any use of the information to criminally investigate or prosecute any alcohol or drug abuse patient.[facility] HospitalIn the event this information is protected by the Federal Confidentiality of Alcohol and Drug Abuse Patient Records regulations: The Federal rules restrict any use of the information to criminally investigate or prosecute any alcohol or drug abuse patient.[facility] HospitalIn the event this information is protected by the Federal Confidentiality of Alcohol and Drug Abuse Patient Records regulations: The Federal rules restrict any use of the information to criminally investigate or prosecute any alcohol or drug abuse patient.[facility] HospitalIn the event this information is protected by the Federal Confidentiality of Alcohol and Drug Abuse Patient Records regulations: The Federal rules restrict any use of the information to criminally investigate or prosecute any alcohol or drug abuse patient.[facility] HospitalIn the event this information is protected by the Federal Confidentiality of Alcohol and Drug Abuse Patient Records regulations: The Federal rules restrict any use of the information to criminally investigate or prosecute any alcohol or drug abuse patient.[facility] HospitalIn the event this information is protected by the Federal Confidentiality of Alcohol and Drug Abuse Patient Records regulations: The Federal rules restrict any use of the information to criminally investigate or prosecute any alcohol or drug abuse patient.[facility] HospitalIn the event this information is protected by the Federal Confidentiality of Alcohol and Drug Abuse Patient Records regulations: The Federal rules restrict any use of the information to criminally investigate or prosecute any alcohol or drug abuse patient.[facility] HospitalIn the event this information is protected by the Federal Confidentiality of Alcohol and Drug Abuse Patient Records regulations: The Federal rules restrict any use of the information to criminally investigate or prosecute any alcohol or drug abuse patient.[facility] HospitalIn the event this information is protected by the Federal Confidentiality of Alcohol and Drug Abuse Patient Records regulations: The Federal rules restrict any use of the information to criminally investigate or prosecute any alcohol or drug abuse patient.[facility] HospitalIn the event this information is protected by the Federal Confidentiality of Alcohol and Drug Abuse Patient Records regulations: The Federal rules restrict any use of the information to criminally investigate or prosecute any alcohol or drug abuse patient.[facility] HospitalIn the event this information is protected by the Federal Confidentiality of Alcohol and Drug Abuse Patient Records regulations: The Federal rules restrict any use of the information to criminally investigate or prosecute any alcohol or drug abuse patient.[facility] HospitalIn the event this information is protected by the Federal Confidentiality of Alcohol and Drug Abuse Patient Records regulations: The Federal rules restrict any use of the information to criminally investigate or prosecute any alcohol or drug abuse patient.[facility] HospitalIn the event this information is protected by the Federal Confidentiality of Alcohol and Drug Abuse Patient Records regulations: The Federal rules restrict any use of the information to criminally investigate or prosecute any alcohol or drug abuse patient.[facility] HospitalIn the event this information is protected by the Federal Confidentiality of Alcohol and Drug Abuse Patient Records regulations: The Federal rules restrict any use of the information to criminally investigate or prosecute any alcohol or drug abuse patient.[facility] HospitalIn the event this information is protected by the Federal Confidentiality of Alcohol and Drug Abuse Patient Records regulations: The Federal rules restrict any use of the information to criminally investigate or prosecute any alcohol or drug abuse patient.[facility] HospitalIn the event this information is protected by the Federal Confidentiality of Alcohol and Drug Abuse Patient Records regulations: The Federal rules restrict any use of the information to criminally investigate or prosecute any alcohol or drug abuse patient.[facility] HospitalIn the event this information is protected by the Federal Confidentiality of Alcohol and Drug Abuse Patient Records regulations: The Federal rules restrict any use of the information to criminally investigate or prosecute any alcohol or drug abuse patient.[facility] HospitalIn the event this information is protected by the Federal Confidentiality of Alcohol and Drug Abuse Patient Records regulations: The Federal rules restrict any use of the information to criminally investigate or prosecute any alcohol or drug abuse patient.[facility] HospitalIn the event this information is protected by the Federal Confidentiality of Alcohol and Drug Abuse Patient Records regulations: The Federal rules restrict any use of the information to criminally investigate or prosecute any alcohol or drug abuse patient.[facility] HospitalIn the event this information is protected by the Federal Confidentiality of Alcohol and Drug Abuse Patient Records regulations: The Federal rules restrict any use of the information to criminally investigate or prosecute any alcohol or drug abuse patient.[facility] HospitalIn the event this information is protected by the Federal Confidentiality of Alcohol and Drug Abuse Patient Records regulations: The Federal rules restrict any use of the information to criminally investigate or prosecute any alcohol or drug abuse patient.[facility] HospitalIn the event this information is protected by the Federal Confidentiality of Alcohol and Drug Abuse Patient Records regulations: The Federal rules restrict any use of the information to criminally investigate or prosecute any alcohol or drug abuse patient.[facility] HospitalIn the event this information is protected by the Federal Confidentiality of Alcohol and Drug Abuse Patient Records regulations: The Federal rules restrict any use of the information to criminally investigate or prosecute any alcohol or drug abuse patient.[facility] HospitalIn the event this information is protected by the Federal Confidentiality of Alcohol and Drug Abuse Patient Records regulations: The Federal rules restrict any use of the information to criminally investigate or prosecute any alcohol or drug abuse patient.[facility] HospitalIn the event this information is protected by the Federal Confidentiality of Alcohol and Drug Abuse Patient Records regulations: The Federal rules restrict any use of the information to criminally investigate or prosecute any alcohol or drug abuse patient.[facility] HospitalIn the event this information is protected by the Federal Confidentiality of Alcohol and Drug Abuse Patient Records regulations: The Federal rules restrict any use of the information to criminally investigate or prosecute any alcohol or drug abuse patient.[facility] HospitalIn the event this information is protected by the Federal Confidentiality of Alcohol and Drug Abuse Patient Records regulations: The Federal rules restrict any use of the information to criminally investigate or prosecute any alcohol or drug abuse patient.[facility] HospitalIn the event this information is protected by the Federal Confidentiality of Alcohol and Drug Abuse Patient Records regulations: The Federal rules restrict any use of the information to criminally investigate or prosecute any alcohol or drug abuse patient.[facility] HospitalIn the event this information is protected by the Federal Confidentiality of Alcohol and Drug Abuse Patient Records regulations: The Federal rules restrict any use of the information to criminally investigate or prosecute any alcohol or drug abuse patient.[facility] HospitalIn the event this information is protected by the Federal Confidentiality of Alcohol and Drug Abuse Patient Records regulations: The Federal rules restrict any use of the information to criminally investigate or prosecute any alcohol or drug abuse patient.[facility] HospitalIn the event this information is protected by the Federal Confidentiality of Alcohol and Drug Abuse Patient Records regulations: The Federal rules restrict any use of the information to criminally investigate or prosecute any alcohol or drug abuse patient.[facility] HospitalIn the event this information is protected by the Federal Confidentiality of Alcohol and Drug Abuse Patient Records regulations: The Federal rules restrict any use of the information to criminally investigate or prosecute any alcohol or drug abuse patient.[facility] HospitalIn the event this information is protected by the Federal Confidentiality of Alcohol and Drug Abuse Patient Records regulations: The Federal rules restrict any use of the information to criminally investigate or prosecute any alcohol or drug abuse patient.[facility] HospitalIn the event this information is protected by the Federal Confidentiality of Alcohol and Drug Abuse Patient Records regulations: The Federal rules restrict any use of the information to criminally investigate or prosecute any alcohol or drug abuse patient.[facility] HospitalIn the event this information is protected by the Federal Confidentiality of Alcohol and Drug Abuse Patient Records regulations: The Federal rules restrict any use of the information to criminally investigate or prosecute any alcohol or drug abuse patient.[facility] HospitalIn the event this information is protected by the Federal Confidentiality of Alcohol and Drug Abuse Patient Records regulations: The Federal rules restrict any use of the information to criminally investigate or prosecute any alcohol or drug abuse patient.[facility] HospitalIn the event this information is protected by the Federal Confidentiality of Alcohol and Drug Abuse Patient Records regulations: The Federal rules restrict any use of the information to criminally investigate or prosecute any alcohol or drug abuse patient.[facility] HospitalIn the event this information is protected by the Federal Confidentiality of Alcohol and Drug Abuse Patient Records regulations: The Federal rules restrict any use of the information to criminally investigate or prosecute any alcohol or drug abuse patient.[facility] HospitalIn the event this information is protected by the Federal Confidentiality of Alcohol and Drug Abuse Patient Records regulations: The Federal rules restrict any use of the information to criminally investigate or prosecute any alcohol or drug abuse patient.[facility] HospitalIn the event this information is protected by the Federal Confidentiality of Alcohol and Drug Abuse Patient Records regulations: The Federal rules restrict any use of the information to criminally investigate or prosecute any alcohol or drug abuse patient.[facility] HospitalIn the event this information is protected by the Federal Confidentiality of Alcohol and Drug Abuse Patient Records regulations: The Federal rules restrict any use of the information to criminally investigate or prosecute any alcohol or drug abuse patient.[facility] HospitalIn the event this information is protected by the Federal Confidentiality of Alcohol and Drug Abuse Patient Records regulations: The Federal rules restrict any use of the information to criminally investigate or prosecute any alcohol or drug abuse patient.[facility] HospitalIn the event this information is protected by the Federal Confidentiality of Alcohol and Drug Abuse Patient Records regulations: The Federal rules restrict any use of the information to criminally investigate or prosecute any alcohol or drug abuse patient.[facility] HospitalIn the event this information is protected by the Federal Confidentiality of Alcohol and Drug Abuse Patient Records regulations: The Federal rules restrict any use of the information to criminally investigate or prosecute any alcohol or drug abuse patient.[facility] HospitalIn the event this information is protected by the Federal Confidentiality of Alcohol and Drug Abuse Patient Records regulations: The Federal rules restrict any use of the information to criminally investigate or prosecute any alcohol or drug abuse patient.[facility] HospitalIn the event this information is protected by the Federal Confidentiality of Alcohol and Drug Abuse Patient Records regulations: The Federal rules restrict any use of the information to criminally investigate or prosecute any alcohol or drug abuse patient.[facility] HospitalIn the event this information is protected by the Federal Confidentiality of Alcohol and Drug Abuse Patient Records regulations: The Federal rules restrict any use of the information to criminally investigate or prosecute any alcohol or drug abuse patient.[facility] HospitalIn the event this information is protected by the Federal Confidentiality of Alcohol and Drug Abuse Patient Records regulations: The Federal rules restrict any use of the information to criminally investigate or prosecute any alcohol or drug abuse patient.[facility] HospitalIn the event this information is protected by the Federal Confidentiality of Alcohol and Drug Abuse Patient Records regulations: The Federal rules restrict any use of the information to criminally investigate or prosecute any alcohol or drug abuse patient.[facility] HospitalIn the event this information is protected by the Federal Confidentiality of Alcohol and Drug Abuse Patient Records regulations: The Federal rules restrict any use of the information to criminally investigate or prosecute any alcohol or drug abuse patient.[facility] HospitalIn the event this information is protected by the Federal Confidentiality of Alcohol and Drug Abuse Patient Records regulations: The Federal rules restrict any use of the information to criminally investigate or prosecute any alcohol or drug abuse patient.[facility] HospitalIn the event this information is protected by the Federal Confidentiality of Alcohol and Drug Abuse Patient Records regulations: The Federal rules restrict any use of the information to criminally investigate or prosecute any alcohol or drug abuse patient.[facility] HospitalIn the event this information is protected by the Federal Confidentiality of Alcohol and Drug Abuse Patient Records regulations: The Federal rules restrict any use of the information to criminally investigate or prosecute any alcohol or drug abuse patient.[facility] HospitalIn the event this information is protected by the Federal Confidentiality of Alcohol and Drug Abuse Patient Records regulations: The Federal rules restrict any use of the information to criminally investigate or prosecute any alcohol or drug abuse patient.[facility] HospitalIn the event this information is protected by the Federal Confidentiality of Alcohol and Drug Abuse Patient Records regulations: The Federal rules restrict any use of the information to criminally investigate or prosecute any alcohol or drug abuse patient.[facility] HospitalIn the event this information is protected by the Federal Confidentiality of Alcohol and Drug Abuse Patient Records regulations: The Federal rules restrict any use of the information to criminally investigate or prosecute any alcohol or drug abuse patient.[facility] HospitalIn the event this information is protected by the Federal Confidentiality of Alcohol and Drug Abuse Patient Records regulations: The Federal rules restrict any use of the information to criminally investigate or prosecute any alcohol or drug abuse patient.[facility] HospitalIn the event this information is protected by the Federal Confidentiality of Alcohol and Drug Abuse Patient Records regulations: The Federal rules restrict any use of the information to criminally investigate or prosecute any alcohol or drug abuse patient.[facility] HospitalIn the event this information is protected by the Federal Confidentiality of Alcohol and Drug Abuse Patient Records regulations: The Federal rules restrict any use of the information to criminally investigate or prosecute any alcohol or drug abuse patient.[facility] HospitalIn the event this information is protected by the Federal Confidentiality of Alcohol and Drug Abuse Patient Records regulations: The Federal rules restrict any use of the information to criminally investigate or prosecute any alcohol or drug abuse patient.[facility] HospitalIn the event this information is protected by the Federal Confidentiality of Alcohol and Drug Abuse Patient Records regulations: The Federal rules restrict any use of the information to criminally investigate or prosecute any alcohol or drug abuse patient.[facility] HospitalIn the event this information is protected by the Federal Confidentiality of Alcohol and Drug Abuse Patient Records regulations: The Federal rules restrict any use of the information to criminally investigate or prosecute any alcohol or drug abuse patient.[facility] HospitalIn the event this information is protected by the Federal Confidentiality of Alcohol and Drug Abuse Patient Records regulations: The Federal rules restrict any use of the information to criminally investigate or prosecute any alcohol or drug abuse patient.[facility] HospitalIn the event this information is protected by the Federal Confidentiality of Alcohol and Drug Abuse Patient Records regulations: The Federal rules restrict any use of the information to criminally investigate or prosecute any alcohol or drug abuse patient.[facility] HospitalIn the event this information is protected by the Federal Confidentiality of Alcohol and Drug Abuse Patient Records regulations: The Federal rules restrict any use of the information to criminally investigate or prosecute any alcohol or drug abuse patient.[facility] HospitalIn the event this information is protected by the Federal Confidentiality of Alcohol and Drug Abuse Patient Records regulations: The Federal rules restrict any use of the information to criminally investigate or prosecute any alcohol or drug abuse patient.[facility] HospitalIn the event this information is protected by the Federal Confidentiality of Alcohol and Drug Abuse Patient Records regulations: The Federal rules restrict any use of the information to criminally investigate or prosecute any alcohol or drug abuse patient.[facility] HospitalIn the event this information is protected by the Federal Confidentiality of Alcohol and Drug Abuse Patient Records regulations: The Federal rules restrict any use of the information to criminally investigate or prosecute any alcohol or drug abuse patient.[facility] HospitalIn the event this information is protected by the Federal Confidentiality of Alcohol and Drug Abuse Patient Records regulations: The Federal rules restrict any use of the information to criminally investigate or prosecute any alcohol or drug abuse patient.[facility] HospitalIn the event this information is protected by the Federal Confidentiality of Alcohol and Drug Abuse Patient Records regulations: The Federal rules restrict any use of the information to criminally investigate or prosecute any alcohol or drug abuse patient.[facility] HospitalIn the event this information is protected by the Federal Confidentiality of Alcohol and Drug Abuse Patient Records regulations: The Federal rules restrict any use of the information to criminally investigate or prosecute any alcohol or drug abuse patient.[facility] HospitalIn the event this information is protected by the Federal Confidentiality of Alcohol and Drug Abuse Patient Records regulations: The Federal rules restrict any use of the information to criminally investigate or prosecute any alcohol or drug abuse patient.[facility] HospitalIn the event this information is protected by the Federal Confidentiality of Alcohol and Drug Abuse Patient Records regulations: The Federal rules restrict any use of the information to criminally investigate or prosecute any alcohol or drug abuse patient.[facility] HospitalIn the event this information is protected by the Federal Confidentiality of Alcohol and Drug Abuse Patient Records regulations: The Federal rules restrict any use of the information to criminally investigate or prosecute any alcohol or drug abuse patient.[facility] HospitalIn the event this information is protected by the Federal Confidentiality of Alcohol and Drug Abuse Patient Records regulations: The Federal rules restrict any use of the information to criminally investigate or prosecute any alcohol or drug abuse patient.[facility] HospitalIn the event this information is protected by the Federal Confidentiality of Alcohol and Drug Abuse Patient Records regulations: The Federal rules restrict any use of the information to criminally investigate or prosecute any alcohol or drug abuse patient.[facility] HospitalIn the event this information is protected by the Federal Confidentiality of Alcohol and Drug Abuse Patient Records regulations: The Federal rules restrict any use of the information to criminally investigate or prosecute any alcohol or drug abuse patient.[facility] HospitalIn the event this information is protected by the Federal Confidentiality of Alcohol and Drug Abuse Patient Records regulations: The Federal rules restrict any use of the information to criminally investigate or prosecute any alcohol or drug abuse patient.[facility] HospitalIn the event this information is protected by the Federal Confidentiality of Alcohol and Drug Abuse Patient Records regulations: The Federal rules restrict any use of the information to criminally investigate or prosecute any alcohol or drug abuse patient.[facility] HospitalIn the event this information is protected by the Federal Confidentiality of Alcohol and Drug Abuse Patient Records regulations: The Federal rules restrict any use of the information to criminally investigate or prosecute any alcohol or drug abuse patient.[facility] HospitalIn the event this information is protected by the Federal Confidentiality of Alcohol and Drug Abuse Patient Records regulations: The Federal rules restrict any use of the information to criminally investigate or prosecute any alcohol or drug abuse patient.[facility] HospitalIn the event this information is protected by the Federal Confidentiality of Alcohol and Drug Abuse Patient Records regulations: The Federal rules restrict any use of the information to criminally investigate or prosecute any alcohol or drug abuse patient.[facility] HospitalIn the event this information is protected by the Federal Confidentiality of Alcohol and Drug Abuse Patient Records regulations: The Federal rules restrict any use of the information to criminally investigate or prosecute any alcohol or drug abuse patient.[facility] HospitalIn the event this information is protected by the Federal Confidentiality of Alcohol and Drug Abuse Patient Records regulations: The Federal rules restrict any use of the information to criminally investigate or prosecute any alcohol or drug abuse patient.[facility] HospitalIn the event this information is protected by the Federal Confidentiality of Alcohol and Drug Abuse Patient Records regulations: The Federal rules restrict any use of the information to criminally investigate or prosecute any alcohol or drug abuse patient.[facility] HospitalIn the event this information is protected by the Federal Confidentiality of Alcohol and Drug Abuse Patient Records regulations: The Federal rules restrict any use of the information to criminally investigate or prosecute any alcohol or drug abuse patient.[facility] HospitalIn the event this information is protected by the Federal Confidentiality of Alcohol and Drug Abuse Patient Records regulations: The Federal rules restrict any use of the information to criminally investigate or prosecute any alcohol or drug abuse patient.[facility] HospitalIn the event this information is protected by the Federal Confidentiality of Alcohol and Drug Abuse Patient Records regulations: The Federal rules restrict any use of the information to criminally investigate or prosecute any alcohol or drug abuse patient.[facility] HospitalIn the event this information is protected by the Federal Confidentiality of Alcohol and Drug Abuse Patient Records regulations: The Federal rules restrict any use of the information to criminally investigate or prosecute any alcohol or drug abuse patient.[facility] HospitalIn the event this information is protected by the Federal Confidentiality of Alcohol and Drug Abuse Patient Records regulations: The Federal rules restrict any use of the information to criminally investigate or prosecute any alcohol or drug abuse patient.[facility] HospitalIn the event this information is protected by the Federal Confidentiality of Alcohol and Drug Abuse Patient Records regulations: The Federal rules restrict any use of the information to criminally investigate or prosecute any alcohol or drug abuse patient.[facility] HospitalIn the event this information is protected by the Federal Confidentiality of Alcohol and Drug Abuse Patient Records regulations: The Federal rules restrict any use of the information to criminally investigate or prosecute any alcohol or drug abuse patient.[facility] HospitalIn the event this information is protected by the Federal Confidentiality of Alcohol and Drug Abuse Patient Records regulations: The Federal rules restrict any use of the information to criminally investigate or prosecute any alcohol or drug abuse patient.[facility] HospitalIn the event this information is protected by the Federal Confidentiality of Alcohol and Drug Abuse Patient Records regulations: The Federal rules restrict any use of the information to criminally investigate or prosecute any alcohol or drug abuse patient.[facility] HospitalIn the event this information is protected by the Federal Confidentiality of Alcohol and Drug Abuse Patient Records regulations: The Federal rules restrict any use of the information to criminally investigate or prosecute any alcohol or drug abuse patient.[facility] HospitalIn the event this information is protected by the Federal Confidentiality of Alcohol and Drug Abuse Patient Records regulations: The Federal rules restrict any use of the information to criminally investigate or prosecute any alcohol or drug abuse patient.[facility] HospitalIn the event this information is protected by the Federal Confidentiality of Alcohol and Drug Abuse Patient Records regulations: The Federal rules restrict any use of the information to criminally investigate or prosecute any alcohol or drug abuse patient.[facility] HospitalIn the event this information is protected by the Federal Confidentiality of Alcohol and Drug Abuse Patient Records regulations: The Federal rules restrict any use of the information to criminally investigate or prosecute any alcohol or drug abuse patient.[facility] HospitalIn the event this information is protected by the Federal Confidentiality of Alcohol and Drug Abuse Patient Records regulations: The Federal rules restrict any use of the information to criminally investigate or prosecute any alcohol or drug abuse patient.[facility] HospitalIn the event this information is protected by the Federal Confidentiality of Alcohol and Drug Abuse Patient Records regulations: The Federal rules restrict any use of the information to criminally investigate or prosecute any alcohol or drug abuse patient.[facility] HospitalIn the event this information is protected by the Federal Confidentiality of Alcohol and Drug Abuse Patient Records regulations: The Federal rules restrict any use of the information to criminally investigate or prosecute any alcohol or drug abuse patient.[facility] HospitalIn the event this information is protected by the Federal Confidentiality of Alcohol and Drug Abuse Patient Records regulations: The Federal rules restrict any use of the information to criminally investigate or prosecute any alcohol or drug abuse patient.[facility] HospitalIn the event this information is protected by the Federal Confidentiality of Alcohol and Drug Abuse Patient Records regulations: The Federal rules restrict any use of the information to criminally investigate or prosecute any alcohol or drug abuse patient.[facility] HospitalIn the event this information is protected by the Federal Confidentiality of Alcohol and Drug Abuse Patient Records regulations: The Federal rules restrict any use of the information to criminally investigate or prosecute any alcohol or drug abuse patient.[facility] HospitalIn the event this information is protected by the Federal Confidentiality of Alcohol and Drug Abuse Patient Records regulations: The Federal rules restrict any use of the information to criminally investigate or prosecute any alcohol or drug abuse patient.[facility] HospitalIn the event this information is protected by the Federal Confidentiality of Alcohol and Drug Abuse Patient Records regulations: The Federal rules restrict any use of the information to criminally investigate or prosecute any alcohol or drug abuse patient.[facility] HospitalIn the event this information is protected by the Federal Confidentiality of Alcohol and Drug Abuse Patient Records regulations: The Federal rules restrict any use of the information to criminally investigate or prosecute any alcohol or drug abuse patient.[facility] HospitalIn the event this information is protected by the Federal Confidentiality of Alcohol and Drug Abuse Patient Records regulations: The Federal rules restrict any use of the information to criminally investigate or prosecute any alcohol or drug abuse patient.[facility] HospitalIn the event this information is protected by the Federal Confidentiality of Alcohol and Drug Abuse Patient Records regulations: The Federal rules restrict any use of the information to criminally investigate or prosecute any alcohol or drug abuse patient.[facility] HospitalIn the event this information is protected by the Federal Confidentiality of Alcohol and Drug Abuse Patient Records regulations: The Federal rules restrict any use of the information to criminally investigate or prosecute any alcohol or drug abuse patient.[facility] HospitalIn the event this information is protected by the Federal Confidentiality of Alcohol and Drug Abuse Patient Records regulations: The Federal rules restrict any use of the information to criminally investigate or prosecute any alcohol or drug abuse patient.[facility] HospitalIn the event this information is protected by the Federal Confidentiality of Alcohol and Drug Abuse Patient Records regulations: The Federal rules restrict any use of the information to criminally investigate or prosecute any alcohol or drug abuse patient.[facility] HospitalIn the event this information is protected by the Federal Confidentiality of Alcohol and Drug Abuse Patient Records regulations: The Federal rules restrict any use of the information to criminally investigate or prosecute any alcohol or drug abuse patient.[facility] HospitalIn the event this information is protected by the Federal Confidentiality of Alcohol and Drug Abuse Patient Records regulations: The Federal rules restrict any use of the information to criminally investigate or prosecute any alcohol or drug abuse patient.[facility] HospitalIn the event this information is protected by the Federal Confidentiality of Alcohol and Drug Abuse Patient Records regulations: The Federal rules restrict any use of the information to criminally investigate or prosecute any alcohol or drug abuse patient.[facility] HospitalIn the event this information is protected by the Federal Confidentiality of Alcohol and Drug Abuse Patient Records regulations: The Federal rules restrict any use of the information to criminally investigate or prosecute any alcohol or drug abuse patient.[facility] HospitalIn the event this information is protected by the Federal Confidentiality of Alcohol and Drug Abuse Patient Records regulations: The Federal rules restrict any use of the information to criminally investigate or prosecute any alcohol or drug abuse patient.[facility] HospitalIn the event this information is protected by the Federal Confidentiality of Alcohol and Drug Abuse Patient Records regulations: The Federal rules restrict any use of the information to criminally investigate or prosecute any alcohol or drug abuse patient.[facility] HospitalIn the event this information is protected by the Federal Confidentiality of Alcohol and Drug Abuse Patient Records regulations: The Federal rules restrict any use of the information to criminally investigate or prosecute any alcohol or drug abuse patient.[facility] HospitalIn the event this information is protected by the Federal Confidentiality of Alcohol and Drug Abuse Patient Records regulations: The Federal rules restrict any use of the information to criminally investigate or prosecute any alcohol or drug abuse patient.[facility] HospitalIn the event this information is protected by the Federal Confidentiality of Alcohol and Drug Abuse Patient Records regulations: The Federal rules restrict any use of the information to criminally investigate or prosecute any alcohol or drug abuse patient.[facility] HospitalIn the event this information is protected by the Federal Confidentiality of Alcohol and Drug Abuse Patient Records regulations: The Federal rules restrict any use of the information to criminally investigate or prosecute any alcohol or drug abuse patient.[facility] HospitalIn the event this information is protected by the Federal Confidentiality of Alcohol and Drug Abuse Patient Records regulations: The Federal rules restrict any use of the information to criminally investigate or prosecute any alcohol or drug abuse patient.[facility] HospitalIn the event this information is protected by the Federal Confidentiality of Alcohol and Drug Abuse Patient Records regulations: The Federal rules restrict any use of the information to criminally investigate or prosecute any alcohol or drug abuse patient.[facility] HospitalIn the event this information is protected by the Federal Confidentiality of Alcohol and Drug Abuse Patient Records regulations: The Federal rules restrict any use of the information to criminally investigate or prosecute any alcohol or drug abuse patient.[facility] HospitalIn the event this information is protected by the Federal Confidentiality of Alcohol and Drug Abuse Patient Records regulations: The Federal rules restrict any use of the information to criminally investigate or prosecute any alcohol or drug abuse patient.[facility] HospitalIn the event this information is protected by the Federal Confidentiality of Alcohol and Drug Abuse Patient Records regulations: The Federal rules restrict any use of the information to criminally investigate or prosecute any alcohol or drug abuse patient.[facility] HospitalIn the event this information is protected by the Federal Confidentiality of Alcohol and Drug Abuse Patient Records regulations: The Federal rules restrict any use of the information to criminally investigate or prosecute any alcohol or drug abuse patient.[facility] HospitalIn the event this information is protected by the Federal Confidentiality of Alcohol and Drug Abuse Patient Records regulations: The Federal rules restrict any use of the information to criminally investigate or prosecute any alcohol or drug abuse patient.[facility] HospitalIn the event this information is protected by the Federal Confidentiality of Alcohol and Drug Abuse Patient Records regulations: The Federal rules restrict any use of the information to criminally investigate or prosecute any alcohol or drug abuse patient.[facility] HospitalIn the event this information is protected by the Federal Confidentiality of Alcohol and Drug Abuse Patient Records regulations: The Federal rules restrict any use of the information to criminally investigate or prosecute any alcohol or drug abuse patient.[facility] HospitalIn the event this information is protected by the Federal Confidentiality of Alcohol and Drug Abuse Patient Records regulations: The Federal rules restrict any use of the information to criminally investigate or prosecute any alcohol or drug abuse patient.[facility] HospitalIn the event this information is protected by the Federal Confidentiality of Alcohol and Drug Abuse Patient Records regulations: The Federal rules restrict any use of the information to criminally investigate or prosecute any alcohol or drug abuse patient.[facility] HospitalIn the event this information is protected by the Federal Confidentiality of Alcohol and Drug Abuse Patient Records regulations: The Federal rules restrict any use of the information to criminally investigate or prosecute any alcohol or drug abuse patient.[facility] HospitalIn the event this information is protected by the Federal Confidentiality of Alcohol and Drug Abuse Patient Records regulations: The Federal rules restrict any use of the information to criminally investigate or prosecute any alcohol or drug abuse patient.[facility] HospitalIn the event this information is protected by the Federal Confidentiality of Alcohol and Drug Abuse Patient Records regulations: The Federal rules restrict any use of the information to criminally investigate or prosecute any alcohol or drug abuse patient.[facility] HospitalIn the event this information is protected by the Federal Confidentiality of Alcohol and Drug Abuse Patient Records regulations: The Federal rules restrict any use of the information to criminally investigate or prosecute any alcohol or drug abuse patient.[facility] HospitalIn the event this information is protected by the Federal Confidentiality of Alcohol and Drug Abuse Patient Records regulations: The Federal rules restrict any use of the information to criminally investigate or prosecute any alcohol or drug abuse patient.[facility] HospitalIn the event this information is protected by the Federal Confidentiality of Alcohol and Drug Abuse Patient Records regulations: The Federal rules restrict any use of the information to criminally investigate or prosecute any alcohol or drug abuse patient.[facility] HospitalIn the event this information is protected by the Federal Confidentiality of Alcohol and Drug Abuse Patient Records regulations: The Federal rules restrict any use of the information to criminally investigate or prosecute any alcohol or drug abuse patient.[facility] HospitalIn the event this information is protected by the Federal Confidentiality of Alcohol and Drug Abuse Patient Records regulations: The Federal rules restrict any use of the information to criminally investigate or prosecute any alcohol or drug abuse patient.[facility] HospitalIn the event this information is protected by the Federal Confidentiality of Alcohol and Drug Abuse Patient Records regulations: The Federal rules restrict any use of the information to criminally investigate or prosecute any alcohol or drug abuse patient.[facility] HospitalIn the event this information is protected by the Federal Confidentiality of Alcohol and Drug Abuse Patient Records regulations: The Federal rules restrict any use of the information to criminally investigate or prosecute any alcohol or drug abuse patient.[facility] HospitalIn the event this information is protected by the Federal Confidentiality of Alcohol and Drug Abuse Patient Records regulations: The Federal rules restrict any use of the information to criminally investigate or prosecute any alcohol or drug abuse patient.[facility] HospitalIn the event this information is protected by the Federal Confidentiality of Alcohol and Drug Abuse Patient Records regulations: The Federal rules restrict any use of the information to criminally investigate or prosecute any alcohol or drug abuse patient.[facility] HospitalIn the event this information is protected by the Federal Confidentiality of Alcohol and Drug Abuse Patient Records regulations: The Federal rules restrict any use of the information to criminally investigate or prosecute any alcohol or drug abuse patient.[facility] HospitalIn the event this information is protected by the Federal Confidentiality of Alcohol and Drug Abuse Patient Records regulations: The Federal rules restrict any use of the information to criminally investigate or prosecute any alcohol or drug abuse patient.[facility] HospitalIn the event this information is protected by the Federal Confidentiality of Alcohol and Drug Abuse Patient Records regulations: The Federal rules restrict any use of the information to criminally investigate or prosecute any alcohol or drug abuse patient.[facility] HospitalIn the event this information is protected by the Federal Confidentiality of Alcohol and Drug Abuse Patient Records regulations: The Federal rules restrict any use of the information to criminally investigate or prosecute any alcohol or drug abuse patient.[facility] HospitalIn the event this information is protected by the Federal Confidentiality of Alcohol and Drug Abuse Patient Records regulations: The Federal rules restrict any use of the information to criminally investigate or prosecute any alcohol or drug abuse patient.[facility] HospitalIn the event this information is protected by the Federal Confidentiality of Alcohol and Drug Abuse Patient Records regulations: The Federal rules restrict any use of the information to criminally investigate or prosecute any alcohol or drug abuse patient.[facility] HospitalIn the event this information is protected by the Federal Confidentiality of Alcohol and Drug Abuse Patient Records regulations: The Federal rules restrict any use of the information to criminally investigate or prosecute any alcohol or drug abuse patient.[facility] HospitalIn the event this information is protected by the Federal Confidentiality of Alcohol and Drug Abuse Patient Records regulations: The Federal rules restrict any use of the information to criminally investigate or prosecute any alcohol or drug abuse patient.[facility] HospitalIn the event this information is protected by the Federal Confidentiality of Alcohol and Drug Abuse Patient Records regulations: The Federal rules restrict any use of the information to criminally investigate or prosecute any alcohol or drug abuse patient.[facility] HospitalIn the event this information is protected by the Federal Confidentiality of Alcohol and Drug Abuse Patient Records regulations: The Federal rules restrict any use of the information to criminally investigate or prosecute any alcohol or drug abuse patient.[facility] HospitalIn the event this information is protected by the Federal Confidentiality of Alcohol and Drug Abuse Patient Records regulations: The Federal rules restrict any use of the information to criminally investigate or prosecute any alcohol or drug abuse patient.[facility] HospitalIn the event this information is protected by the Federal Confidentiality of Alcohol and Drug Abuse Patient Records regulations: The Federal rules restrict any use of the information to criminally investigate or prosecute any alcohol or drug abuse patient.[facility] HospitalIn the event this information is protected by the Federal Confidentiality of Alcohol and Drug Abuse Patient Records regulations: The Federal rules restrict any use of the information to criminally investigate or prosecute any alcohol or drug abuse patient.[facility] HospitalIn the event this information is protected by the Federal Confidentiality of Alcohol and Drug Abuse Patient Records regulations: The Federal rules restrict any use of the information to criminally investigate or prosecute any alcohol or drug abuse patient.[facility] HospitalIn the event this information is protected by the Federal Confidentiality of Alcohol and Drug Abuse Patient Records regulations: The Federal rules restrict any use of the information to criminally investigate or prosecute any alcohol or drug abuse patient.[facility] HospitalIn the event this information is protected by the Federal Confidentiality of Alcohol and Drug Abuse Patient Records regulations: The Federal rules restrict any use of the information to criminally investigate or prosecute any alcohol or drug abuse patient.[facility] HospitalIn the event this information is protected by the Federal Confidentiality of Alcohol and Drug Abuse Patient Records regulations: The Federal rules restrict any use of the information to criminally investigate or prosecute any alcohol or drug abuse patient.[facility] HospitalIn the event this information is protected by the Federal Confidentiality of Alcohol and Drug Abuse Patient Records regulations: The Federal rules restrict any use of the information to criminally investigate or prosecute any alcohol or drug abuse patient.[facility] HospitalIn the event this information is protected by the Federal Confidentiality of Alcohol and Drug Abuse Patient Records regulations: The Federal rules restrict any use of the information to criminally investigate or prosecute any alcohol or drug abuse patient.[facility] HospitalIn the event this information is protected by the Federal Confidentiality of Alcohol and Drug Abuse Patient Records regulations: The Federal rules restrict any use of the information to criminally investigate or prosecute any alcohol or drug abuse patient.[facility] HospitalIn the event this information is protected by the Federal Confidentiality of Alcohol and Drug Abuse Patient Records regulations: The Federal rules restrict any use of the information to criminally investigate or prosecute any alcohol or drug abuse patient.[facility] HospitalIn the event this information is protected by the Federal Confidentiality of Alcohol and Drug Abuse Patient Records regulations: The Federal rules restrict any use of the information to criminally investigate or prosecute any alcohol or drug abuse patient.[facility] Goals (unrecognized section and content) Goals may be documented in a n alternate sectionGoals may be documented in an alternate sectionGoals may be documented in an alternate sectionGoals may be documented in an alternate sectionGoals may be documented in an alternate sectionGoals may be documented in an alternate sectionGoals may be documented in an alternate section FOR RECORDS PERTAINING TO PATIENTS WHO ARE [...] BE BASED ON THE PRIMARY CLINICAL RECORDS. [facility]. provides no warranty or guarantee of the accuracy or completeness of information in this document.
--- NOTE | 2025-04-19 06:28 | PCM.HP.STD ---
HPI - General General Date of Admission: 04/19/25 Date of Service: 04/19/25 Chief Complaint: Gastroparesis and constipation HPI Narrative KYLIE LIGHT, is a 79 F who presents for endoscopic evaluation of gastroparesis and constipation PMH CAD, RA, COPD, DM1, stroke, HLD, insomnia, obesity, RLS, vit D deficiency *BGI established 8.17.22 for chronic constipation starting in childhood with positive results from mineral oil; in teens/early adulthood she developed abdominal cramping and loose stools which then normalized until 20 years ago when she developed constipation again with small stools with incomplete evacuation up to TID with upper abdominal discomfort. Failed medications include Dulcolax, MiraLAX, benefiber, Colace, Linzess 72mcg (diarrhea) ? GET 11.9.22 120.09 minutes (12-56) OV 12.8.22 continue mineral oil and start fiber tablets. Gastroparesis is not symptomatic. OV 12.4.23 continues to have constipation with lack of BM 3-4 days with movement of small hard pellet stools with preceding lower abdominal pain despite use of mineral oil and PRN stool softener. OV 5.9.24 Pt reports 2-3 snake like bowel movements per day. Pt reports taking MiraLax daily and continues with Lansoprazole and mineral oil. Pt reports that she occasional has trouble swallowing pills. Pt reports that she has noticed an increase in gas and bloating since her colonoscopy in March 2023. OV 9.30.24 pt reports that she would like to discuss treatment options in order to avoid constipation and not being able to have a bm for several days. Pt would also like to discuss what vitamins and supplements she can be taking to help with her GI system. OV 12.31.24 pt reports that she has been struggling with lingering COVID symptoms since December, is having more testing done soon to see if there is something bacterial going on. Pt reports that she is not having any GI symptoms of concern at this time, continues with miralax and mineral oil. OV 5.13.25- Pt reports she is well since last visit. Continues taking Mineral oil every night before bed. Is having solid BMs at least once a day. Denies abdominal pain. [facility] Medical History Diabetes Walker as ambulation aid Injury of head and neck Stroke/cerebrovascular accident Difficulty swallowing Sleep apnea Hoarseness Chronic cough History of irregular heartbeat Aortic stenosis Wears glasses Wears dentures Insulin dependent diabetes mellitus High cholesterol History of steroid therapy Back pain Dietary restriction Gastric reflux History of edema CPAP (continuous positive airway pressure) dependence Non-smoker History of pain when walking Hypertension History of stress test History of echocardiogram Cardiology follow-up encounter Fall RLS (restless legs syndrome) Insomnia Esophagitis Diverticulosis of colon Coronary artery disease involving [place] coronary artery Carpal tunnel syndrome, bilateral Carotid stenosis CAD (coronary artery disease) BPPV (benign paroxysmal positional vertigo) Chronic constipation Insulin pump titration Presence of insulin pump Obesity Vitamin D deficiency Gastroenteritis Polymyalgia rheumatica Chronic rheumatic arthritis Diabetic neuropathy Type 1 diabetes mellitus COPD (chronic obstructive pulmonary disease) Essential (primary) hypertension Atherosclerosis of coronary artery of [place] heart without angina pectoris History of stroke Fatty liver Hyperlipidemia Incontinence Chronic neck and back pain Difficulty balancing Home Medications ?Medication ?Instructions ?Recorded ?Last Taken ?Type atorvastatin 40 mg tablet 40 mg PO QHS cholesterol 06/27/15 04/17/25 History clopidogrel 75 mg tablet 75 mg PO DAILY anti platelet 06/27/15 04/15/25 History multivitamin 1 tab PO QAM vitamin 03/30/17 Unknown History amlodipine 5 mg tablet 5 mg PO DAILY #90 tabs 09/22/18 04/18/25 Rx lactobacillus combination no.9 4 4,000 mmu cells PO DAILY supplement 10/14/18 04/18/25 History billion cell capsule (Adult 50 Plus Probiotic) biotin 1 mg capsule 1 mg PO DAILY 10/14/19 04/18/25 History aspirin 81 mg tablet,delayed 81 mg PO DAILY 07/05/21 04/17/25 History release (Adult Low Dose Aspirin) lancets (Accu-Chek Fastclix Lancet #200 ea 11/04/21 Unknown Rx Drum) cholecalciferol (vitamin D3) 125 125 mcg PO DAILY 05/28/22 04/18/25 History mcg (5,000 unit) tablet Humalog U-100 Insulin 100 unit/mL 100 unit subcut QDAY #90 mL 03/16/23 04/18/25 Rx subcutaneous solution (insulin lispro) nitroglycerin 0.4 mg sublingual 0.4 mg sublingual Q5-15M PRN chest 11/26/23 Unknown Rx tablet (Nitrostat) pain #25 tabs zolpidem 10 mg tablet (Ambien) 10 mg PO QHS 01/18/24 04/17/25 History losartan 100 mg tablet See Rx Instructions .Route 05/17/24 04/18/25 Rx .COMPLEX #90 tabs hydroxychloroquine 200 mg tablet 300 mg PO QDAY 01/10/25 04/18/25 History pramipexole 1 mg tablet 2 mg PO QHS 01/10/25 04/17/25 History sodium sul 1.479 gram-potas ch See Rx Instructions PO PER PKG DIR 01/30/25 04/18/25 Rx 0.188 gram-magnes sul 0.225 gram #24 tabs tablet (Sutab) Allergy/AdvReac Type Severity Reaction Status Date / Time amitriptyline Allergy Other Verified 04/19/25 06:04 cefadroxil (Cefadroxil) Allergy Hives Verified 04/19/25 06:04 ephedrine Allergy HEART RACES Verified 04/19/25 06:04 erythromycin estolate (From Allergy Angioedema, Verified 04/19/25 06:04 Ilosone) HEART RACING iodine Allergy Hives, Verified 04/19/25 06:04 ITCHING levofloxacin Allergy Unknown Verified 04/19/25 06:04 nortriptyline (Nortriptyline) Allergy Unknown Verified 04/19/25 06:04 oxycodone (Oxycodone) Allergy CONFUSION Verified 04/19/25 06:04 oxycodone HCl (From Percocet) Allergy CONFUSION Verified 04/19/25 06:04 Sulfa (Sulfonamide Allergy Rash Verified 04/19/25 06:04 Antibiotics) pregabalin (From Lyrica) AdvReac Severe Vomiting Verified 04/19/25 06:04 hydrochlorothiazide AdvReac Intermediate Hypotension Verified 04/19/25 06:04 cephalexin AdvReac Nausea/Vom/ Verified 04/19/25 06:04 Diarrhea doxycycline AdvReac Nausea/Vom/ Verified 04/19/25 06:04 Diarrhea duloxetine HCl (From AdvReac HEADACHE, Verified 04/19/25 06:04 Cymbalta) STOMACH ACHE Family History Father , age 76 No problems noted. Mother , Age 74 Breast cancer Thyroid disorder Heart disease Valvular heart disease Brother Heart disease, Onset Age: 52 Heart valve/murmur Surgical History History of esophagogastroduodenoscopy (EGD) History of left heart catheterization (07/01/05) History of coronary artery stent placement (06/26/00) nasal growth removal H/O lumpectomy axillary cyst removal bilat hand surgery H/O shoulder surgery H/O breast biopsy H/O: Social History Smoking Status: Never smoker alcohol intake: never substance use type: does not use caffeine: No ROS Constitutional Constitutional: Denies fatigue, fever(s), poor appetite, weight gain or weight loss Gastrointestinal Gastrointestinal: Denies belching, bloating, change in bowel habits, change in stool character, chewing difficulty, coffee ground emesis, constipation, cramping, diarrhea, dyspepsia, dysphagia, early satiety, excessive flatus, fecal incontinence, heartburn, hematemesis, hematochezia, hemorrhoids, loose stools, melena, nausea, odynophagia, rectal bleeding, tenesmus, vomiting or weight changes Patient's Goals Of Care . What would you like to achieve or improve as a result of your hospital stay?: none Vital Signs Vital Signs Vital Signs: 04/19/25 06:08 04/19/25 06:08 Temperature 98.4 F Temperature Source Temporal Pulse Rate 64 Respiratory Rate 18 Respiratory Pattern Normal Blood Pressure 137/61 H Blood Pressure Mean 86 Blood Pressure Source Monitor Blood Pressure Position Semi-Fowlers Blood Pressure Location Left Arm Pulse Ox 100 Oxygen Delivery Method Room Air Weight Weight: 147 lb 11.355 oz Body Mass Index (BMI) 27.0 Physical Exam Const alert, oriented x3, no apparent distress and healthy appearing General Appearance: cooperative GI normal to inspection, nondistended, normoactive bowel sounds, soft to palpation, non-tender and non-distended Percussion: normal to percussion Rectal Exam: deferred Assessment & Plan Assessment/Plan (1) Gastroparesis: (2) Constipation: PLAN: Assessment and Plan Assessment and Plan (1) Chronic constipation: Status: Chronic Plan: She has chronic idiopathic constipation 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 She has used osmotic laxatives in the past along with stimulants and stool softeners. She was given Linzess therapy but it was too strong for her. She does use marijuana on a daily basis with some intermittent results. I will put her on magnesium citrate 200 mg in the morning and at night along with administration of lactulose therapy. She will do this for approximately 2 weeks. She also has a history of adenomatous polyps. Her last colonoscopy was approximately 5 years ago. We will schedule her for colon surveillance endoscopy. (2) Gastroparesis: Status: Chronic Plan: He does have some bloating from her gastroparesis but it is not horrible. Her gastric emptying time was 120 minutes with no normal range being 30 minutes to 52 minutes. I added gastroparesis medication in the form of Reglan 5 mg p.o. 3 times daily . She does not want to go off this medicine at this time as she is doing very well. To help her chronic constipation we will also put her on Fiber Choice 2 tabs in the morning and mineral oil as needed.. She is doing well with a prebiotic that she takes [id number] so we will continue that for now. We took her protein down from 1 mg/kg of body weight down to 0.5 mg/kg of body weight as she is doing very well and regarding her bowels and gastroparesis. She will see a dietitian to further mitigate her diet for her diabetes and complications from her diabetes that may be affecting her GI tract. ]
--- NOTE | 2025-04-19 06:30 | COLBX_PTH ---
PATIENT: KYLIE LIGHT LOC: EN U#:[id number] AGE/SX: 79/F ROOM: RE04/19/[address]: Dr. Karl Dyer DO : 1945 BED: DIS: 04/19/2025 SPEC #: [id number] RECD: 04/19/25 09:49 STATUS: KASIA REManuel #: [id number] KEISHA: 04/19/25 06:[address]: Karl Dyer DEPT: SURGICAL PATHOLOGY RECD BY: Sonja Aviles ENTERED: 04/19/25 11:19 SP TYPE: COLON BX OT DR: Dr. Alcira Calderon MD Tissues: A - COLON BIOPSY B - COLON BIOPSY C - Sigmoid colon biopsy Procedures: Surgery Specimen Level IV HEADER OPERATION: Colonoscopy with polypectomy and biopsy PRE-OP DIAGNOSIS: Gastroparesis, constipation TISSUE SUBMITTED: A. Appendiceal orifice polyp, B. Splenic flexure polyp, C. Sigmoid polyp MICROSCOPIC DIAGNOSIS A. Colon, appendiceal orifice, polyp, biopsy: - Tubular adenoma. B. Colon, splenic flexure, polyp, biopsy: - Tubular adenoma. C. Colon, sigmoid, polyp, biopsy: - Tubular adenoma. MICROSCOPIC DESCRIPTION Slides are reviewed. GROSS DESCRIPTION A. Received is one container labeled with the patient name and designated appendiceal orifice polyp. The specimen consists of multiple irregular fragments of light bustos soft tissue that in aggregate measure 0.6 x 0.4 x 0.2 cm. The specimen is totally submitted in one cassette. B. Received is one container labeled with the patient name and designated splenic flexure polyp. The specimen consists of one irregular fragment of light bustos soft tissue that measures 0.5 x 0.3 x 0.2 cm. The specimen is totally submitted in one cassette. C. Received is one container labeled with the patient name and designated sigmoid polyp. The specimen consists of multiple irregular fragments of light bustos soft tissue that in aggregate measure 1 x 0.4 x 0.2 cm. The specimen is totally submitted in one cassette. 04/19/2025 CPT:60956l1
--- NOTE | 2025-04-19 06:37 | PRE.ANES_ITS ---
ASA Classification* ASA Classification ASA Classification: 3 Assessment & Plan Anesthesia* Anesthesia Assessment Anesthesia Assessment: Discussed sedation and/or anesthesia options, risks, benefits, and alternatives with patient/parents/legal guardian/POA. Questions invited. The patient/parents/legal guardian/POA seems to understand and agrees to proceed with anesthesia plan. Reviewed the physical assessment, medical history, allergy history and patient home medications list prior to surgery/procedure/anesthetic and documented any changes. Performed airway and anesthesia risk assessments. Anesthesia Type Anesthesia Type: MAC Anesthesia Focused Assessment* Temperature: 98.4 F Pulse Rate: 64 Blood Pressure: 137/61 Respiratory Rate: 18 Pulse Ox: 100 Airway Assessment Mouth opens: >3 cm Mallampati Score: II Labs Anesthesia Preop lab: CBC WBC, (4.4-11.0) 7.0 K/mm3 06/22/19, 06:25 RBC, (4.2-5.4) 4.30 M/mm3 06/22/19, 06:25 Hgb, (12.0-15.0) 13.1 g/dL 06/22/19, 06:25 Hct, (37-47) 39.1 % 06/22/19, 06:25 Plt Count, (150-450) 237 K/mm3 06/22/19, 06:25 CHEMISTRY Potassium, (3.5-5.1) 4.3 mmol/L 01/21/21, 13:03 Sodium, (136-145) 139 mmol/L 01/21/21, 13:03 Magnesium, (1.6-2.6) 1.6 mg/dL 06/22/19, 06:25 Phosphorus, (2.5-4.9) 2.9 mg/dL 15, 05:55 BUN, (7-18) 13 mg/dL 01/21/21, 13:03 Creatinine, (0.55-1.02) 0.74 mg/dL 01/21/21, 13:03 Glucose, (74-106) 61 mg/dL L 02/11/23, 10:20 POC Glucose, (70-110) 96 mg/dL 06/23/19, 02:29 TSH, (0.358-3.74) 2.11 uIU/mL 10/04/21, 13:03 COAG PT, (11.7-14.9) 11.9 SECONDS 03/17/15, 14:54 Pre-Assessment Diagnosis/Proposed Procedure Planned Operative Procedure(s): COLONOSCOPY Anesthesia History Anesthesia History - data deliverables manager: Anesthesia History - data deliverables manager Hx Hospitalization No 04/17/25 13:54 Any Problems With Anesthesia No 04/17/25 13:54 Cholinesterase deficiency No 04/17/25 13:54 You/Your Family Experience No 04/17/25 13:54 fever (hyperthermia) with Relationship Recent Exposure to Contagious No 04/19/25 06:08 Disease Does patient have nerve No 04/17/25 13:54 stimulator Patient instructed to have device shut off --Does patient have Pacemaker No 04/19/25 06:08 or ICD? When Was Last Pacemaker Check QUESTION #4 FULL TEXT: You/Your Family Experience fever (hyperthermia) with Anesthesia Last Oral Intake Last Oral intake: Last Oral Intake NPO since 03:30 04/19/25 06:08 Meds taken in AM with sips of No 04/19/25 06:08 water? Meds patient instructed to take am of surgery PONV PONV - data deliverables manager: PONV - data deliverables manager Female Yes 04/17/25 13:54 HX of Motion Sickness No 04/17/25 13:54 HX of N/V After Surgery No 04/17/25 13:54 Non-Smoker Yes 04/17/25 13:54 Duration of Surgery greater No 04/17/25 13:54 than 60 minutes Number of Risk Factors 2 04/17/25 13:54 PONV Score Moderate Risk 04/17/25 13:54 Height & Weight Height & Weight: Anesthesia: Height & Weight Height 5 ft 2 in 04/19/25 06:08 Weight: 67 kg 04/19/25 06:08 Body Mass Index (BMI) 27.0 04/19/25 06:08 Respiratory Assessment Respiratory Assessment - data deliverables manager: Respiratory Tract Infection Hx - data deliverables manager Hx Respiratory Tract Infection No 04/17/25 13:54 STOP Sleep Apnea STOP Sleep Apnea - data deliverables manager: STOP Sleep Apnea - data deliverables manager Hx Hypertension Yes 04/17/25 13:54 Hx Sleep Apnea Yes 04/17/25 13:54 CPAP Yes: NONCOMPLIANT 04/17/25 13:54 BIPAP No 04/17/25 13:54 Do you snore loudly (louder than talking or can be heard Do you often feel tired/ fatigued/ sleepy during daytime? Has anyone observed you stop breathing during sleep? STOP Results Positive 04/17/25 13:54 QUESTION #5 FULL TEXT : Do you snore loudly (louder than talking or can be heard through closed doors)? Tobacco Use History Tobacco Use History - data deliverables manager: Tobacco Use History - data deliverables manager Tobacco Use Smoking Status Never smoker 04/17/25 13:54 Hx Tobacco Use No 04/17/25 13:54 Years Smoking Packs Smoked per Day Smoking Cessation Date was within the last 15 years Hx Smoking Cessation Date Hx Smoking Cessation No 04/17/25 13:54 Counseling Hematologic Medial History Hematologic Hx - data deliverables manager: Hematologic Medical Hx - razor sharpener Hx of Blood Transfusion No 04/17/25 13:54 Hx of Transfusion in last 3 No 04/17/25 13:54 Months Date of Last Transfusion (if within last 3 months) Ever experience any problems No 04/17/25 13:54 with transfusion(s)? Specify any problems Hx of Preganancy in last 3 No 04/17/25 13:54 Months Nurse Filling Out Transfusion VLEHMAN 04/17/25 13:54 & Questions: Date: 04/17/25 04/17/25 13:54 Time: 14:10 04/17/25 13:54 Patient unable to answer at this time (ie. confused, unrespo /Reproduction History /Reproductive History - data deliverables manager: /Reproductive Hx- data deliverables manager Hx Now No 04/17/25 13:54 Gestational Age (in weeks): EDC: Hx Hx Para Hx Section SAB No 04/17/25 13:54 Does the father of the baby or his family experience fever w Father of the baby Malignant Hypertension history comment Active Medications Active Medications: Current Medications Generic Name Dose Route Start Last Admin Trade Name Freq PRN Reason Stop Dose Admin Dextrose/Lactated Ringer's 1,000 mls @ 100 mls/hr 04/19/25 05:45 04/19/25 06:15 IV 100 mls/hr .Q10H HODAN Administration PFSH Medical History Diabetes Walker as ambulation aid Injury of head and neck Stroke/cerebrovascular accident Difficulty swallowing Sleep apnea Hoarseness Chronic cough History of irregular heartbeat Aortic stenosis Wears glasses Wears dentures Insulin dependent diabetes mellitus High cholesterol History of steroid therapy Back pain Dietary restriction Gastric reflux History of edema CPAP (continuous positive airway pressure) dependence Non-smoker History of pain when walking Hypertension History of stress test History of echocardiogram Cardiology follow-up encounter Fall RLS (restless legs syndrome) Insomnia Esophagitis Diverticulosis of colon Coronary artery disease involving [place] coronary artery Carpal tunnel syndrome, bilateral Carotid stenosis CAD (coronary artery disease) BPPV (benign paroxysmal positional vertigo) Chronic constipation Insulin pump titration Presence of insulin pump Obesity Vitamin D deficiency Gastroenteritis Polymyalgia rheumatica Chronic rheumatic arthritis Diabetic neuropathy Type 1 diabetes mellitus COPD (chronic obstructive pulmonary disease) Essential (primary) hypertension Atherosclerosis of coronary artery of [place] heart without angina pectoris History of stroke Fatty liver Hyperlipidemia Incontinence Chronic neck and back pain Difficulty balancing Home Medications ?Medication ?Instructions ?Recorded ?Last Taken ?Type atorvastatin 40 mg tablet 40 mg PO QHS cholesterol 01/0304/17/25 History clopidogrel 75 mg tablet 75 mg PO DAILY anti platelet 06/27/15 04/15/25 History multivitamin 1 tab PO QAM vitamin 7 Unknown History amlodipine 5 mg tablet 5 mg PO DAILY #90 tabs 09/2204/18/25 Rx lactobacillus combination no.9 4 4,000 mmu cells PO DA PORSCHE supplement 10/14/18 04/18/25 History billion cell capsule (Adult 50 Plus Probiotic) biotin 1 mg capsule 1 mg PO DAILY 10/14/1904/18 History aspirin 81 mg tablet,delayed 81 mg PO DAILY 07/05/21 1 History release (Adult Low Dose Aspirin) lancets (Accu-Chek Fastclix Lancet #200 ea 11/04/21 Un known Rx Drum) cholecalciferol (vitamin D3) 125 125 mcg PO DAILY 12/1004/18/25 History mcg (5,000 unit) tablet Humalog U-100 Insulin 100 unit/mL 100 unit subcut QDAY #90 mL 03/16/23 04/18/25 Rx subcutaneous solution (insulin lispro) nitroglycerin 0.4 mg sublingual 0.4 mg sublingual Q5-1 5M PRN chest 11/26/23 Unknown Rx tablet (Nitrostat) pain #25 tabs zolpidem 10 mg tablet (Ambien) 10 mg PO QHS 01/18/24 1 History losartan 100 mg tablet See Rx Instructions .Route 0 05/17/24 04/18/25 Rx .COMPLEX #90 tabs hydroxychloroquine 200 mg tablet 300 mg PO QDAY 04/18/25 History pramipexole 1 mg tablet 2 mg PO QHS 01/10/25 5 History sodium sul 1.479 gram-potas ch See Rx Instructions PO PER PKG DIR 01/30/25 04/18/25 Rx 0.188 gram-magnes sul 0.225 gram #24 tabs tablet (Sutab) Allergy/AdvReac Type Severity Reaction Status Date / Time amitriptyline Allergy Other Verified 04/19/25 06:04 cefadroxil (Cefadroxil) Allergy Hives Verified 04/19/25 06:04 ephedrine Allergy HEART RACES Verified 04/19/25 06:04 erythromycin estolate (From Allergy Angioedema, Verified 04/19/25 06:04 Ilosone) HEART RACING iodine Allergy Hives, Verified 04/19/25 06:04 ITCHING levofloxacin Allergy Unknown Verified 04/19/25 06:04 nortriptyline (Nortriptyline) Allergy Unknown Verified 04/19/25 06:04 oxycodone (Oxycodone) Allergy CONFUSION Verified 04/19/25 06:04 oxycodone HCl (From Percocet) Allergy CONFUSION Verified 04/19/25 06:04 Sulfa (Sulfonamide Allergy Rash Verified 04/19/25 06:04 Antibiotics) pregabalin (From Lyrica) AdvReac Severe Vomiting Verified 04/19/25 06:04 hydrochlorothiazide AdvReac Intermediate Hypotension Verified 04/19/25 06:04 cephalexin AdvReac Nausea/Vom/ Verified 04/19/25 06:04 Diarrhea doxycycline AdvReac Nausea/Vom/ Verified 04/19/25 06:04 Diarrhea duloxetine HCl (From AdvReac HEADACHE, Verified 04/19/25 06:04 Cymbalta) STOMACH ACHE Family History Father , age 76 No problems noted. Mother , Age 74 Breast cancer Thyroid disorder Heart disease Valvular heart disease Brother Heart disease, Onset Age: 52 Heart valve/murmur Surgical History History of esophagogastroduodenoscopy (EGD) History of left heart catheterization (07/01/05) History of coronary artery stent placement (06/26/00) nasal growth removal H/O lumpectomy axillary cyst removal bilat hand surgery H/O shoulder surgery H/O breast biopsy H/O: Social History Smoking Status: Never smoker alcohol intake: never substance use type: does not use caffeine: No Review of Systems (Anesthesia) ROS Narrative System reviewed and no additional complaints, except as documented.
--- NOTE | 2025-04-19 07:22 | OP.COLON_ITS ---
Patient Name: Mckayla Russo Procedure Date: 04/19/2025 6:14 AM Date of : 1945 Age: 79 Procedure: Colonoscopy Indications: Screening for colorectal malignant neoplasm Providers: Karl Dyer DO Referring MD: Alcira Calderon Medicines: Monitored Anesthesia Care Patient Profile: This is a 79 year old female. Refer to note in patient chart for documentation of history and physical. Last Colonoscopy: several years ago. Complications: No immediate complications. Procedure: Pre-Anesthesia Assessment: - Prior to the procedure, a History and Physical was performed, and patient medications and allergies were reviewed. The patient is competent. The risks and benefits of the procedure and the sedation options and risks were discussed with the patient. All questions were answered and informed consent was obtained. Patient identification and proposed procedure were verified by the physician in the pre-procedure area. Mental Status Examination: normal. Airway Examination: normal oropharyngeal airway and neck mobility. Respiratory Examination: clear to auscultation. CV Examination: normal. Prophylactic Antibiotics: The patient does not require prophylactic antibiotics. Prior Anticoagulants: The patient has taken no anticoagulant or antiplatelet agents. ASA Grade Assessment: II - A patient with mild systemic disease. After reviewing the risks and benefits, the patient was deemed in satisfactory condition to undergo the procedure. The anesthesia plan was to use monitored anesthesia care (MAC). Immediately prior to administration of medications, the patient was re-assessed for adequacy to receive sedatives. The heart rate, respiratory rate, oxygen saturations, blood pressure, adequacy of pulmonary ventilation, and response to care were monitored throughout the procedure. The physical status of the patient was re-assessed after the procedure. After I obtained informed consent, the scope was passed under direct vision. Throughout the procedure, the patient's blood pressure, pulse, and oxygen saturations were monitored continuously. The Colonoscope was introduced through the anus and advanced to the cecum, identified by appendiceal orifice and ileocecal valve. The colonoscopy was performed without difficulty. The patient tolerated the procedure well. The quality of the bowel preparation was adequate. The ileocecal valve, appendiceal orifice, and rectum were photographed. Scope In: 6:57:50 AM Scope Withdrawal Time 0 hours 11 minutes 17 seconds Scope Out: 7:15:07 AM Total Procedure Duration Time 0 hours 17 minutes 17 seconds Findings: The perianal and digital rectal examinations were normal. Multiple small-mouthed diverticula were found in the sigmoid colon, hepatic flexure and ascending colon. A 10 mm polyp was found in the cecum. The polyp was sessile. The polyp was removed with a hot snare. Resection was complete, but the polyp tissue was not retrieved. Four sessile polyps were found in the sigmoid colon, splenic flexure and appendiceal orifice. The polyps were 6 mm in size. These polyps were removed with a jumbo cold forceps. Resection and retrieval were complete. Verification of patient identification for the specimen was done. Estimated blood loss was minimal. Impression: - Diverticulosis in the sigmoid colon, at the hepatic flexure and in the ascending colon. - One 10 mm polyp in the cecum, removed with a hot snare. Complete resection. Polyp tissue not retrieved. - Four 6 mm polyps in the sigmoid colon, at the splenic flexure and at the appendiceal orifice, removed with a jumbo cold forceps. Resected and retrieved. Recommendation: - Repeat colonoscopy in 3 years for surveillance. - Continue present medications. Procedure Code(s): --- Professional --- 47782, Colonoscopy, flexible; with removal of tumor(s), polyp(s), or other lesion(s) by snare technique 24154, 59, Colonoscopy, flexible; with biopsy, single or multiple CPT copyright 2021 [employer]. All rights reserved. The codes documented in this report are preliminary and upon rat breeder review may be revised to meet current compliance requirements. Karl Dyer DO 04/19/2025 7:21:51 AM This report has been signed electronically. Number of Addenda: 0 Note Initiated On: 04/19/2025 6:14 AM
--- NOTE | 2025-04-19 07:22 | OP.PROVAT_ITS ---
04/19/2025 Alcira Calderon [address] [place] [address] Re : Colonoscopy procedure for Mckayla Russo Dear Dr. Calderon This procedure was performed on Saturday, April 19, 2025. My impressions and recommendations are as follows: Impressions : - Diverticulosis in the sigmoid colon, at the hepatic flexure and in the ascending colon. - One 10 mm polyp in the cecum, removed with a hot snare. Complete resection. Polyp tissue not retrieved. - Four 6 mm polyps in the sigmoid colon, at the splenic flexure and at the appendiceal orifice, removed with a jumbo cold forceps. Resected and retrieved. Recommendations : - Repeat colonoscopy in 3 years for surveillance. - Continue present medications. My findings are described in the full procedure note, which is enclosed. If I can be of further assistance, please feel free to contact me at . Sincerely, Karl Dyer, 04/19/2025 7:21:51 AM This report has been signed electronically.
--- NOTE | 2025-04-19 07:23 | PCM.POST.ANE ---
Anesthesia: Postop Eval I Current Vital Signs Temperature: 97.9 F Pulse Rate: 76 Blood Pressure: 119/58 Respiratory Rate: 16 Pulse Ox: 97 Assessment Airway patent: Yes Spontaneous unlabored respirations: Yes nausea: No Vomiting: No Anesthesia Complication: No Fluid Hydration Crystalloid volume administer (ml): 300 Total IV fluid infused: 300 Progress Note Anesthesia document: Postop Eval 1 completed: Yes
--- NOTE | 2025-04-19 08:20 | POSTOPAN2_ITS ---
Anesthesia Postop Eval I Sum Postop Eval Completion status Anesthesia document: Postop Eval 1 completed: Yes Anesthesia Postop Eval I Summary Anesthesia Postop Eval I Summary: Anesthesia Postop Eval I: Assessment Summary Airway patent Yes 04/19/25 07:23 TRANSIT VEHICLE INSPECTOR.TNES Spontaneous unlabored Yes 04/19/25 07:23 TRANSIT VEHICLE INSPECTOR.TNES respirations Mental status nausea No 04/19/25 07:23 TRANSIT VEHICLE INSPECTOR.TNES Vomiting No 04/19/25 07:23 TRANSIT VEHICLE INSPECTOR.TNES Anesthesia Postop Eval I: Fluid Summary Crystalloid volume administer 300 04/19/25 07:23 TRANSIT VEHICLE INSPECTOR.TNES (ml) Colloids volume administered ( ml) Blood Product volume administered (ml) Total IV fluid infused 300 04/19/25 07:23 TRANSIT VEHICLE INSPECTOR.TNES Anesthesia Postop Eval I: Summary Notes Anesthesia Complication No 04/19/25 07:23 TRANSIT VEHICLE INSPECTOR.TNES Anesthesia Complication Comment: Post-operative progress note Anesthesia: Postop Eval II Evaluation Mental status: Awake Pain Level: 0 nausea: No Vomiting: No
--- NOTE | 2025-04-19 08:20 | PCM.POSTANE2 ---
Anesthesia Postop Eval I Sum Postop Eval Completion status Anesthesia document: Postop Eval 1 completed: Yes Anesthesia Postop Eval I Summary Anesthesia Postop Eval I Summary: Anesthesia Postop Eval I: Assessment Summary Airway patent Yes 04/19/25 07:23 ANESTHESIOLOGIST PHYSICIAN.TNES Spontaneous unlabored Yes 04/19/25 07:23 ANESTHESIOLOGIST PHYSICIAN.TNES respirations Mental status nausea No 04/19/25 07:23 ANESTHESIOLOGIST PHYSICIAN.TNES Vomiting No 04/19/25 07:23 ANESTHESIOLOGIST PHYSICIAN.TNES Anesthesia Postop Eval I: Fluid Summary Crystalloid volume administer 300 04/19/25 07:23 ANESTHESIOLOGIST PHYSICIAN.TNES (ml) Colloids volume administered ( ml) Blood Product volume administered (ml) Total IV fluid infused 300 04/19/25 07:23 ANESTHESIOLOGIST PHYSICIAN.TNES Anesthesia Postop Eval I: Summary Notes Anesthesia Complication No 04/19/25 07:23 ANESTHESIOLOGIST PHYSICIAN.TNES Anesthesia Complication Comment: Post-operative progress note Anesthesia: Postop Eval II Evaluation Mental status: Awake Pain Level: 0 nausea: No Vomiting: No
== END 2025-04-19 08:07 | disposition home or self-care (01) ==
LOC: EN 05:22 → AC 05:24
PROVIDERS: PCP Internal Medicine; Referring Provider Internal Medicine; Visit Provider Internal Medicine Gastroenterology
PROC: 0DJD8ZZ Inspection of Lower Intestinal Tract, Via Natural or Artificial Opening Endoscopic (ICD-10-PCS; CPT 45378; principal; 2025-04-19 06:25)
DX: D12.3 Benign neoplasm of transverse colon (principal); J44.9 Chronic obstructive pulmonary disease, unspecified; E10.9 Type 1 diabetes mellitus without 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s; Z79.4 Long term (current) use of insulin; I25.10 Atherosclerotic heart disease of native coronary artery without angina pectoris; I10 Essential (primary) hypertension; K31.84 Gastroparesis; K57.30 Diverticulosis of large intestine without perforation or abscess without bleeding; E78.00 Pure hypercholesterolemia, unspecified; Z79.899 Other long term (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 therapy; Z79.82 Long term (current) use of aspirin; Z86.0101 Personal history of adenomatous and serrated colon polyps; K21.9 Gastro-esophageal reflux disease without esophagitis; Z79.02 Long term (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 of antithrombotics/antiplatelets; D12.5 Benign neoplasm of sigmoid colon
CPT/HCPCS: 45385; 45380; 82962; 88305; A4216